=== PATIENT | female | born 1930 | race Caucasian/White ===

== ENCOUNTER 2016-09-04 10:05 | Inpatient (IN) | payer OTHER ==
[~2016-09-04] VITALS: Ht 167.6 cm; Wt 79.5 kg
[2016-09-04] VITALS (25 sets, daily range): BP systolic 81–175; BP diastolic 41–88; PULSE 62–84; TEMP 36.3–37.6; O2SAT 95–100; Ht 167.6 cm; Wt 79.5 kg
[~2016-09-04 10:05] MED LIST: ALBU1AER9 INH; ALLO100T PO; AMIO200T4 PO; ASPI81TA28 PO; BUME1TAB PO; CLOP1TAB15 PO; CRS/10 PO; GLUC10007 PO; HYCUDL5 PO; INSHNI SQ; IPRASOL4 INH; ISOS60TA25 PO; LACT1CAP6 PO; LPR25 PO; PHS667 PO; RBTUDL5 PO
[2016-09-04] MEDS ORDERED: SODIUM CHLORIDE 0.9% 500ML 500 ML IV STA (10:21)
[2016-09-04 10:46] LABS: BASO % 0.4 %; BASO ABS # 0.04 K/uL (0-0.2); COMPLETE YES; EOS % 1.9 %; HEMATOCRIT 30.2 % (37-47); IG% 0.3 %; LYMPH % 15.4 %; LYMPH ABS # 1.66 K/uL (1.2-3.4); MEAN CELL VOLUME 96.8 fL (80-100); MEAN CORPUSCULAR HEMOGLOBIN 31.1 pg (25-34); MEAN CORPUSCULAR HGB CONC 32.1 g/dl (32-36); MEAN PLATELET VOLUME 9.7 fL (7.4-10.4); MONO % 10.9 %; NEUT % 71.1 %; PLATELET COUNT 212 K/uL (130-400); RED BLOOD COUNT 3.12 M/uL (4.2-5.4); WHITE BLOOD COUNT 10.79 K/uL (4.8-10.8)
[2016-09-04 10:54] LABS: ISTAT CREATININE 4.6 mg/dl (0.6-1.3); ISTAT HEMOGLOBIN 10.2 g/dl (12.0-16.0); ISTAT IONIZED CALCIUM 1.12 mmol/l (1.12-1.32)
[2016-09-04 10:55] LABS: INR 1.1 (0.9-1.1); PROTHROMBIN TIME (PATIENT) 11.4 SECONDS (9.0-12.0)
[2016-09-04 11:25] LABS: BUN/CREATININE RATIO 10.2 (10-20); CALCIUM 8.8 mg/dl (8.5-10.1)
[2016-09-04 11:31] LABS: CREATININE 4.8 mg/dl (0.60-1.20)
--- NOTE | 2016-09-04 11:40 | DIAGNOSTIC IMAGING REPORT ---
CHEST ONE VIEW PORTABLE CLINICAL HISTORY: Hypoxia. COMPARISON STUDY: Chest radiograph July 11, 2016 FINDINGS: A dual lumen right internal jugular central venous catheter, median sternotomy wires and mediastinal surgical clips are noted. Mild cardiomegaly is unchanged. There is no pneumothorax. A small left pleural effusion is decreased in size since prior exam. There may be a trace right pleural effusion. Mild lower lung interstitial thickening is noted. There is no evidence for overt pulmonary edema. IMPRESSION: 1. Small left pleural effusion, decreased in size since exam of July 11, 2016. 2. Mild lower lung interstitial thickening. No evidence for overt pulmonary edema. Electronically signed by: Timmy Candelaria M.D. 09/04/2016 11:38 AM
[2016-09-04] MEDS ORDERED: PROB1TAB16 PO (12:18)
[2016-09-04] MEDS ORDERED: POTA20TA13 PO (12:23)
[2016-09-04] MEDS ORDERED: SENNTAB23 PO (12:24)
[2016-09-04] MEDS ORDERED: NTRGSL/4 UT (12:26)
--- NOTE | 2016-09-04 12:50 | Gastrointestinal Consultation ---
Gastrointestinal Consultation Date of Consultation: Sep 04, 2016 Attending Physician: Dr. Krishnamurthy Consulting Physician: Leigh Ann Nunez PA-C Reason for Consultation: GI bleeding History of Present Illness Patient is a 86 year old female with a past medical history of anemia, aortic stenosis, esophageal stricture, CAD, asthma, chronic respiratory failure, diastolic congestive heart failure, DJD, DM2, ESRD on HD, GERD, HLD, hyperparathyroidism, HTN, mitral regurgitation, nephrolithiasis, & Paroxysmal Atrial Fibrillation who presents to the ED with multiple episodes of rectal bleeding. She reports that her symptoms began last night around midnight. She denies associated abdominal pain or cramping. She reports some "twinges" of discomfort generalized throughout the abdomen. She reports she had a black tarry bowel movement prior to the onset of the bleeding. Daughter reports that she then found bright red blood throughout the bathroom. Bleeding is only associated with bowel movements per reports. She has continued to have bleeding since being brought to the ER. She denies a family history of GI malignancy or IBD. She reports that she takes Aspirin & Plavix at home. Her H/H is 9.7/30.2. Her BUN/Cr is 49/4.8. She is currently being prepped for a blood transfusion. She offers no further complaints at present. Patient denies ever having a colonoscopy, however daughter reports that her mother has had a colonoscopy in the past 2 years, however I cannot find any inpatient or outpatient records to support this. She reports she recalls bringing her mom, so I do question if she is referring to the EGD she had in October 2015. Past Medical/Surgical History Medical Problems: (1) CHF (congestive heart failure) Status: Acute (2) Chronic kidney insufficiency Status: Acute (3) Chronic renal failure Status: Acute (4) Congestive heart failure Status: Acute (5) E16.2 Status: Acute (6) Elevated troponin Status: Acute (7) Pancytopenia Status: Acute (8) Pneumonia Status: Acute (9) Pulmonary edema Status: Acute (10) Respiratory distress Status: Acute (11) ST segment changes on electrocardiogram Status: Acute Past Medical History: anemia, aortic stenosis, esophageal stricture, CAD, asthma, chronic respiratory failure, diastolic congestive heart failure, DJD, DM2, ESRD on HD, GERD, HLD, hyperparathyroidism, HTN, mitral regurgitation, nephrolithiasis, & Paroxysmal Atrial Fibrillation, choledocholithiasis Past Surgical History: ERCP, cholecystectomy, EGD, cholecystectomy, CABG, cardiac cath/stent, back surgery, knee replacement, hip replacement Family History Cancer SISTER (Breast cancer) Chronic kidney disease MOTHER Diabetes mellitus FATHER Heart disease FATHER Hypertension FATHER MOTHER Kidney disease Kidney stones Social History Smoking Status: Never Smoker Alcohol Use: none Drug Use: none Marital Status: Housing Status: lives alone Occupation Status: retired Allergies Coded Allergies: No Known Allergies (Unverified , 09/04/16) Current Medications Home Meds and Scripts Medications Dose Route/Sig Max Daily Dose Days Date Category Nitrostat (Nitroglycerin) 0.4 Mg Tab 0.4 Mg UT PRN 09/04/16 Reported Stool Softener (Sennosides-Docusate Sodium) 1 Tab Tab 1 Tab PO BID 09/04/16 Reported Potassium Chloride Er (Potassium Chloride Microencaps) 20 Meq Tab 20 Meq PO DAILY 09/04/16 Reported Probiotic (Probiotic Product) 1 Tab Tab 1 Tab PO DAILY 09/04/16 Reported Hydromet 5-1.5 mg/5Ml (Hydrocodone Bit/Homatropine Methylb) 5 Ml/Cup Syrp 5 Ml PO Q6H PRN 07/16/16 Rx Robitussin (Guaifenesin) 100 Mg/5 Ml Karo 100 Mg PO Q6H PRN 30 07/12/16 Rx Phoslo 667 Mg (Calcium Acetate) 667 Mg Cap 667 Mg PO TIDM 30 07/12/16 Rx Humulin N (Insulin Human NPH) 100 Units/Ml Susp 15 Units SQ QAM 07/06/16 Reported Lopressor (Metoprolol Tartrate) 25 Mg Tab 12.5 Mg PO BID 30 06/21/16 Rx Glucosamine (Glucosamine Sulfate) 1,000 Mg Tab 1,000 Mg PO DAILY 06/15/16 Reported Bumex (Bumetanide) 1 Mg Tab 1 Mg PO BID 05/16/16 Reported Cordarone (Amiodarone Hcl) 200 Mg Tab 200 Mg PO DAILY 04/03/16 Reported Proair Hfa (Albuterol Sulfate) 108 Mcg/ Aer 2 Puffs INH QID PRN 02/08/16 Reported Aspirin Ec (Aspirin) 81 Mg Tab 81 Mg PO HS 02/08/16 Reported Imdur Ext Rel (Isosorbide Mononitrate) 60 Mg Ertab 60 Mg PO QAM 10/11/15 Reported Crestor (Rosuvastatin Calcium) 10 Mg Tab 10 Mg PO HS 10/11/15 Reported Duoneb (Ipratropium-Albuterol) 3 Ml Nebu 1 Treatment INH AMHS 05/19/15 Reported Zyloprim (Allopurinol) 100 Mg Tab 50 Mg PO QAM 02/03/15 Reported Plavix (Clopidogrel Bisulfate) 75 Mg Tab 75 Mg PO HS 01/08/10 Reported Review of Systems Constitutional: + fatigue, + weakness Respiratory: + dyspnea on exertion, No cough Cardiac: No chest pain Abdomen: + GI bleeding, No constipation, No diarrhea, No nausea, No pain, No vomiting Musculoskeletal: No joint pain Psych: No problem reported Skin: No problem reported Physical Exam Date Time Temp Pulse Resp B/P Pulse Ox O2 Delivery O2 Flow Rate FiO2 09/04/16 12:09 36.5 67 18 103/41 100 3.0 09/04/16 11:33 68 132/54 100 Nasal Cannula 2.0 09/04/16 11:10 100 Nasal Cannula 2.0 09/04/16 10:55 66 18 114/51 100 Nasal Cannula 2.0 09/04/16 10:29 66 09/04/16 10:23 95 Nasal Cannula 2.0 09/04/16 10:23 95 Nasal Cannula 2.0 09/04/16 10:18 36.6 66 22 125/69 86 Room Air General Appearance: WD/WN Eyes: normal inspection, PERRL ENT: hearing grossly normal Respiratory/Chest: lungs clear, + decreased breath sounds Cardiovascular: regular rate, rhythm Abdomen: normal bowel sounds, non tender, soft Extremities: non-tender Neurologic/Psych: alert, oriented x 3 Skin: normal color Laboratory Results Last 24 Hours Test 09/04/16 10:35 09/04/16 10:37 White Blood Count 10.79 K/uL Red Blood Count 3.12 M/uL Hemoglobin 9.7 g/dL Hematocrit 30.2 % Mean Corpuscular Volume 96.8 fL Mean Corpuscular Hemoglobin 31.1 pg Mean Corpuscular Hemoglobin Concent 32.1 g/dl Platelet Count 212 K/uL Mean Platelet Volume 9.7 fL Neutrophils (%) (Auto) 71.1 % Lymphocytes (%) (Auto) 15.4 % Monocytes (%) (Auto) 10.9 % Eosinophils (%) (Auto) 1.9 % Basophils (%) (Auto) 0.4 % Neutrophils # (Auto) 7.67 K/uL Lymphocytes # (Auto) 1.66 K/uL Monocytes # (Auto) 1.18 K/uL Eosinophils # (Auto) 0.21 K/uL Basophils # (Auto) 0.04 K/uL RDW Standard Deviation 53.9 fL RDW Coefficient of Variation 15.6 % Immature Granulocyte % (Auto) 0.3 % Immature Granulocyte # (Auto) 0.03 K/uL Prothrombin Time 11.4 SECONDS Prothromb Time International Ratio 1.1 Activated Partial Thromboplast Time 26.8 SECONDS Partial Thromboplastin Ratio 1.0 Sodium Level 140 mmol/L Potassium Level 5.0 mmol/L Chloride Level 102 mmol/L Carbon Dioxide Level 28 mmol/L Anion Gap 10.0 mmol/L 19.0 mmol/L Blood Urea Nitrogen 49 mg/dl Creatinine 4.80 mg/dl Est Creatinine Clear Calc Drug Dose 9.1 ml/min Estimated GFR () 8.9 Estimated GFR (Non- 7.7 BUN/Creatinine Ratio 10.2 Random Glucose 181 mg/dl Calcium Level 8.8 mg/dl Total Bilirubin 0.4 mg/dl Direct Bilirubin 0.1 mg/dl Aspartate Amino Transf (AST/SGOT) 16 U/L Alanine Aminotransferase (ALT/SGPT) 9 U/L Alkaline Phosphatase 62 U/L Total Protein 5.4 gm/dl Albumin 2.1 gm/dl Lipase 134 U/L Bedside Hemoglobin 10.2 g/dl Bedside Hematocrit 30 % Bedside Sodium 137 mEq/L Bedside Potassium 5.0 mEq/L Bedside Chloride 99 mEq/L Bedside Total CO2 26 mEq/l Bedside Blood Urea Nitrogen 43 mg/dl Bedside Creatinine 4.6 mg/dl Bedside Glucose (other) 181 mg/dl Bedside Ionized Calcium (Angelito) 1.12 mmol/l Impression Patient is a 86 year old female who presents to the ER with an abrupt onset of rectal bleeding that has continued from midnight 1/2 until the present time. She is noted to be anemic with an H/H of 9.7/30.2. Plan 1) Agree with transfusion of PRBCs. Would monitor closely due to history of CHF & other cardiac issues. 2) CT abdomen/pelvis with contrast now. 3) Continue to monitor H/H. Suspect next draw will be lower due to continued blood loss. 4) Prep for colonoscopy in AM, however recommend monitoring throughout the day and if bleeding worsens or patient is decompensating, would recommend sooner intervention though this would be less ideal as she would be unprepped for evaluation. 5) Supportive care per primary team. Thank you for allowing us to participate in the care of this patient. If you should have any further questions or concerns, do not hesitate to contact us. Agree with Leigh Ann Soni, PAC as above Abd: Soft, NT, ND, +BS CT Abd/pelvis now Plan for Colonoscopy 09/05/2016 following bowel prep Transfuse PRN
[2016-09-04] MEDS ORDERED: SODIUM CHLORIDE 0.9% 1000ML 1,000 ML IV SCH (13:14)
[2016-09-04] MEDS ORDERED: DEXTROSE 50% 50 ML SYR IV PRN (13:15)
[2016-09-04] MEDS ORDERED: GLUCAGON FOR INJ 1 MG VIAL SQ PRN (13:15)
[2016-09-04] MEDS ORDERED: ALBUTEROL HFA 8 GM INHALER INH PRN (13:15)
[2016-09-04] MEDS ORDERED: GLUCOSE 10 TABS/TUBE PO PRN (13:15)
[2016-09-04] MEDS ORDERED: POLYETHYLENE (MIRALAX) 17 GM PACK PO PRN (13:15)
[2016-09-04] MEDS ORDERED: NITROGLYCERIN 0.4 MG SL PER TAB CHARGE UT PRN (13:15)
[2016-09-04] MEDS ORDERED: ALUMINUM/MAGNESIUM/SIMETH (MAALOX MAX) 30 ML UDC PO PRN (13:15)
[2016-09-04] MEDS ORDERED: ONDANSETRON INJ 2 MG/ML 2 ML VIAL IV PRN (13:15)
[2016-09-04] MEDS ORDERED: ACETAMINOPHEN 325 MG TAB PO PRN (13:15)
[2016-09-04] MEDS ORDERED: MAGNESIUM HYDROXIDE SUSP 30 ML UDC PO PRN (13:15)
[2016-09-04] MEDS ORDERED: GLUCOSE 40% GEL 15 GM TUBE PO PRN (13:15)
--- NOTE | 2016-09-04 14:27 | History and Physical ---
History & Physical Date & Time of Service: Sep 04, 2016 at 13:43 Chief Complaint: Leg Weakness/Dizziness Primary Care Physician: Vipul Hernandez M.D. History of Present Illness This is an 86 y/o female with a history of ESRD with HD, anemia of chronic disease, CHF, CAD, ID, DM II, HTN, atrial fibrillation, HLD and gout who presented to the ED on 09/04 with diarrhea and bright red blood per rectum. The patient states that she woke up shortly after midnight this morning with diarrhea and alexys bright red blood. She had been in her usual state of health one day prior without any diarrhea. The patient had about 4-5 episodes of bloody diarrhea prior to arrival. The patient has continued to have more episodes of diarrhea, but she states that it is mostly just blood that is coming out now. The patient does have external hemorrhoids. The patient complains of feeling weak and fatigued as well as lightheaded upon sitting up or standing. She has not eaten since yesterday evening for dinner. The patient denies any recent acute illnesses. The patient states she had a colonoscopy 6-[address] Bowers that was normal. The patient denies fevers, chills, sweats, syncope, chest pain, palpitations, claudication, cough, wheezing, shortness of breath, nausea, vomiting, abdominal pain, dysuria, hematuria, urinary retention, paralysis, vertigo, numbness and tingling. Past Medical/Surgical History Medical Problems: (1) Ac Myocrd Infrct,Oth Inferior Wall,Subseq Epis Car Status: Resolved (2) Aortocoronary Bypass Status: Resolved (3) Chronic Kidney Disease, Stage Iii (Moderate) Status: Chronic (4) Coronary Atherosclerosis Of [place] Coronary Vessel Status: Chronic (5) Diab Qiana Wo Compl, Type Ii Or Unspec Type, Not Uncntrld Status: Chronic (6) Hypertension Nos Status: Chronic (7) Knee Joint Replacement Status Status: Chronic (8) Old Myocardial Infarct Status: Chronic (9) Percutaneous Translum Coron Angioplasty Status Status: Resolved (10) Pneumonia, Organism Nos Status: Resolved (11) Pure Hypercholesterolem Status: Chronic (12) Urin Tract Infection Nos Status: Resolved Family History Asthma Cancer SISTER (Breast cancer) Chronic kidney disease MOTHER Diabetes mellitus FATHER Heart disease FATHER Hypertension FATHER MOTHER Kidney disease Kidney stones Stroke Social History Smoking Status: Never Smoker Smokeless Tobacco Use: No Alcohol Use: none Drug Use: none Marital Status: Housing status: lives with family (with granddaughter) Occupational Status: retired Immunizations History of Influenza Vaccine: Yes Influenza Vaccine Date: Apr 17, 2012 History of Tetanus Vaccine?: Yes Tetanus Immunization Date: Dec 16, 2006 History of Pneumococcal: Yes Pneumococcal Date: Dec 17, 2007 History of Hepatitis B Vaccine: No Multi-Drug Resistant Organisms History of MDRO: No Allergies Coded Allergies: No Known Allergies (Unverified , 09/04/16) Home Medications Scheduled Allopurinol (Zyloprim), 50 MG PO QAM Amiodarone Hcl (Cordarone), 200 MG PO DAILY Aspirin (Aspirin Ec), 81 MG PO HS Bumetanide (Bumex), 1 MG PO DAILY Calcium Acetate (Phoslo 667 Mg), 667 MG PO TIDM Clopidogrel (Plavix), 75 MG PO HS Insulin Human NPH (Humulin N), 12 UNITS SQ QAM Ipratropium-Albuterol (Duoneb), 1 TREATMENT INH AMHS Isosorbide Mononitrate Ext Rel (Imdur Ext Rel), 60 MG PO QAM Metoprolol Tartrate (Lopressor), 12.5 MG PO BID Nitroglycerin (Nitrostat), 0.4 MG UT PRN Potassium Chloride Microencaps (Potassium Chloride Er), 20 MEQ PO DAILY Probiotic Product (Probiotic), 1 TAB PO DAILY Rosuvastatin Calcium (Crestor), 10 MG PO HS Sennosides-Docusate Sodium (Stool Softener), 1 TAB PO BID Scheduled PRN Albuterol Sulfate (Proair Hfa), 2 PUFFS INH QID PRN for SOB/Wheezing Review of Systems Constitutional: + fatigue, + weakness, No chills, No fever, No sweats Eyes: No diplopia, No eye pain, No worsening of vision ENT: No hearing loss, No sore throat, No tinnitus Respiratory: No cough, No shortness of breath, No wheezing Cardiovascular: No chest pain, No claudication, No palpitations Abdomen: + GI bleeding, + diarrhea, No nausea, No pain, No vomiting Musculoskeletal: No calf pain, No joint pain, No muscle pain Genitourinary - Female: No dysuria, No hematuria, No urinary retention Integumentary: No color change, No itch, No rash Physical Exam Vital Signs Date Time Temp Pulse Resp B/P Pulse Ox O2 Delivery O2 Flow Rate FiO2 09/04/16 13:35 36.6 66 18 104/44 100 2.0 09/04/16 13:29 36.7 62 21 83/42 100 2.0 09/04/16 13:29 36.6 62 21 83/42 100 2.0 09/04/16 13:15 36.6 68 22 81/46 100 2.0 09/04/16 13:02 36.5 67 25 105/44 100 2.0 09/04/16 12:31 68 18 92/46 100 3.0 09/04/16 12:30 67 31 100 09/04/16 12:28 92/46 09/04/16 12:25 66 24 100 09/04/16 12:20 66 26 100 09/04/16 12:15 68 30 100 09/04/16 12:10 70 25 100 09/04/16 12:09 36.5 67 18 103/41 100 3.0 09/04/16 12:08 103/41 09/04/16 12:05 68 27 100 09/04/16 12:00 70 26 100 09/04/16 11:59 108/48 09/04/16 11:55 68 30 100 09/04/16 11:50 67 30 100 09/04/16 11:45 70 32 100 09/04/16 11:40 68 30 100 09/04/16 11:35 67 23 100 09/04/16 11:33 68 132/54 100 Nasal Cannula 2.0 09/04/16 11:30 68 32 100 09/04/16 11:28 132/54 09/04/16 11:25 68 24 100 09/04/16 11:20 65 29 100 09/04/16 11:15 66 31 99 09/04/16 11:10 67 27 100 09/04/16 11:10 100 Nasal Cannula 2.0 09/04/16 11:05 64 29 100 09/04/16 11:00 65 35 100 09/04/16 10:59 110/70 09/04/16 10:55 63 25 100 09/04/16 10:55 66 18 114/51 100 Nasal Cannula 2.0 09/04/16 10:50 67 30 100 09/04/16 10:47 114/51 09/04/16 10:45 65 25 100 09/04/16 10:40 72 18 71 09/04/16 10:35 68 27 09/04/16 10:30 77 24 67 09/04/16 10:29 66 09/04/16 10:23 95 Nasal Cannula 2.0 09/04/16 10:23 95 Nasal Cannula 2.0 09/04/16 10:18 36.6 66 22 125/69 86 Room Air 09/04/16 10:12 125/69 General Appearance: WD/WN, no apparent distress Head: normocephalic, atraumatic Eyes: normal inspection, PERRL, EOMI ENT: normal ENT inspection, hearing grossly normal, pharynx normal, + pertinent finding (dry oral mucosa) Neck: supple, no JVD, trachea midline Respiratory/Chest: lungs clear, normal breath sounds, no respiratory distress Cardiovascular: regular rate, rhythm, no gallop, no murmur Abdomen/GI: normal bowel sounds, soft, + tenderness (LLQ mildly TTP without guarding), + pertinent finding (copious amounts of blood coming from rectum limited rectal exam) Extremities/Musculoskelatal: normal inspection, no calf tenderness, no pedal edema, + swelling (1+ pitting edema in lower extremities bilaterally) Neurologic/Psych: alert, normal mood/affect, oriented x 3 Skin: warm/dry, no rash, + pallor Diagnostics Laboratory Results Results Past 24 Hours Test 09/04/16 10:35 09/04/16 10:37 09/04/16 13:14 Range/Units White Blood Count 10.79 4.8-10.8 K/uL Red Blood Count 3.12 4.2-5.4 M/uL Hemoglobin 9.7 12.0-16.0 g/dL Hematocrit 30.2 37-47 % Mean Corpuscular Volume 96.8 80-100 fL Mean Corpuscular Hemoglobin 31.1 25-34 pg Mean Corpuscular Hemoglobin Concent 32.1 32-36 g/dl Platelet Count 212 130-400 K/uL Mean Platelet Volume 9.7 7.4-10.4 fL Neutrophils (%) (Auto) 71.1 % Lymphocytes (%) (Auto) 15.4 % Monocytes (%) (Auto) 10.9 % Eosinophils (%) (Auto) 1.9 % Basophils (%) (Auto) 0.4 % Neutrophils # (Auto) 7.67 1.4-6.5 K/uL Lymphocytes # (Auto) 1.66 1.2-3.4 K/uL Monocytes # (Auto) 1.18 0.11-0.59 K/uL Eosinophils # (Auto) 0.21 0-0.5 K/uL Basophils # (Auto) 0.04 0-0.2 K/uL RDW Standard Deviation 53.9 36.4-46.3 fL RDW Coefficient of Variation 15.6 11.5-14.5 % Immature Granulocyte % (Auto) 0.3 % Immature Granulocyte # (Auto) 0.03 0.00-0.02 K/uL Prothrombin Time 11.4 9.0-12.0 SECONDS Prothromb Time International Ratio 1.1 0.9-1.1 Activated Partial Thromboplast Time 26.8 21.0-31.0 SECONDS Partial Thromboplastin Ratio 1.0 Sodium Level 140 136-145 mmol/L Potassium Level 5.0 3.5-5.1 mmol/L Chloride Level 102 98-107 mmol/L Carbon Dioxide Level 28 21-32 mmol/L Anion Gap 10.0 19.0 16-25 mmol/L Blood Urea Nitrogen 49 7-18 mg/dl Creatinine 4.80 0.60-1.20 mg/dl Est Creatinine Clear Calc Drug Dose 9.1 ml/min Estimated GFR () 8.9 Estimated GFR (Non- 7.7 BUN/Creatinine Ratio 10.2 10-20 Random Glucose 181 70-99 mg/dl Calcium Level 8.8 8.5-10.1 mg/dl Total Bilirubin 0.4 0.2-1 mg/dl Direct Bilirubin 0.1 0-0.2 mg/dl Aspartate Amino Transf (AST/SGOT) 16 15-37 U/L Alanine Aminotransferase (ALT/SGPT) 9 12-78 U/L Alkaline Phosphatase 62 45-117 U/L Total Protein 5.4 6.4-8.2 gm/dl Albumin 2.1 3.4-5.0 gm/dl Lipase 134 73-393 U/L Bedside Hemoglobin 10.2 12.0-16.0 g/dl Bedside Hematocrit 30 37-47 % Bedside Sodium 137 135-144 mEq/L Bedside Potassium 5.0 3.3-5.0 mEq/L Bedside Chloride 99 101-112 mEq/L Bedside Total CO2 26 24-31 mEq/l Bedside Blood Urea Nitrogen 43 7-18 mg/dl Bedside Creatinine 4.6 0.6-1.3 mg/dl Bedside Glucose (other) 181 70-99 mg/dl Bedside Ionized Calcium (Angelito) 1.12 1.12-1.32 mmol/l Creatine Kinase MB Ratio 0-3.0 Diagnostic Radiology Reviewed the following studies and agree with interpretation as follows: Patient Name: ANANTH SIMPSON Unit Number: [id number] Dictated: 09/04/161135 Transcribed: 09/04/161135 Printed Date/Time: [~ rep prt dt]/[~ rep prt tm] [~ rep ct labl] - [~ rep ct ivnm] [facility] [place] [place] [address] Dictated: 09/04/161135 Transcribed: 09/04/161135 Printed Date/Time: [~ rep prt dt]/[~ rep prt tm] [~ rep ct labl] - [~ rep ct ivnm] Patient: ANANTH SIMPSON Address1: [address] [place] [address] Rec: [id number] Address2: Acct ID: [id number] [facility] Zip: [place] [address] Date: 1930 Sex: F Room/Bed: Ref Phy: Cooper Hart M.D. SC: SIA Att Phy: Report #: [id number] Christiana Phy: Vipul Hernandez M.D. Test: [id number] Admit Phy: Head Kiln Operator: NINA Interpreting Phy: Timmy Candelaria MD Diagnosis: LEG WEAKNESS/DIZZINESS Ordering Phy: Markos Krishnamurthy DO Service Date: 09/04/16 Admit Date: 09/04/16 MNE: [id number] CONF: DICTATED BY: Timmy Candelaria MD]] CC: Markos Krishnamurthy, Vipul Teague M.D. Hester, Christopher E., M.D. Endcc: [~ rep ct add3]] CHEST ONE VIEW PORTABLE CLINICAL HISTORY: Hypoxia. COMPARISON STUDY: Chest radiograph July 11, 2016 FINDINGS: A dual lumen right internal jugular central venous catheter, median sternotomy wires and mediastinal surgical clips are noted. Mild cardiomegaly is unchanged. There is no pneumothorax. A small left pleural effusion is decreased in size since prior exam. There may be a trace right pleural effusion. Mild lower lung interstitial thickening is noted. There is no evidence for overt pulmonary edema. IMPRESSION: 1. Small left pleural effusion, decreased in size since exam of July 11, 2016. 2. Mild lower lung interstitial thickening. No evidence for overt pulmonary edema. Electronically signed by: Timmy Candelaria M.D. 09/04/2016 11:38 AM The status of this report is Signed. Draft = Not yet reviewed or approved by Radiologist. Signed = Reviewed and approved by Radiologist. <AttendingPhy></AttendingPhy> <FamilyPhy>Cooper Hart M.D.</FamilyPhy > <PrimaryPhy>Vipul Hernandez M.D.</PrimaryPhy> <UnitNumber>[id number]</ UnitNumber> <VisitNumber>[id number]</VisitNumber> <PatientName>ANANTH SIMPSON< /PatientName> <DateOfBirth>1930</DateOfBirth> <Location>C.EDB</Location> < ServiceDate>09/04/16</ServiceDate> <MNE>ESINDI</MNE> <OrderingPhy>Markos Krishnamurthy DO</OrderingPhy> <OrderingPhyMNE>f rep ord dr bae</OrderingPhyMNE> < DictatingPhyMNE>f rep dict dr bae</DictatingPhyMNE> <CCListMNE>f rep ct emekae</ CCListMNE> <AdmittingPhyMNE>f pt admit dr bae</AdmittingPhyMNE> <AttendingPhyMNE >f pt attend dr bae</AttendingPhyMNE> <ConsultingPhyMNE>f pt consult dr bae</ConsultingPhyMNE> <FamilyPhyMNE>f pt fam dr bae</FamilyPhyMNE> <OtherPhyMNE>f pt other dr bae</OtherPhyMNE> < PrimaryPhyMNE>f pt prim care dr bae</PrimaryPhyMNE> <ReferringPhyMNE>f pt referring dr bae</ReferringPhyMNE> EKG Reviewed EKG and agree with interpretation as follows: 66 bpm, NSR, inverted T waves in inferior and lateral leads, ST depressions in inferior and lateral leads Impression Assessment and Plan 86 y/o female with a history of ESRD with HD, anemia of chronic disease, CHF, CAD, ID, DM II, HTN, paroxysmal atrial fibrillation, HLD and gout who presented to the ED on 09/04 with diarrhea and bright red blood per rectum. Pt. is on ASA and Plavix. CXR shows small left pleural effusion improved from prior study in 07/2016, mild lower lung interstitial thickening. EKG shows new inverted T waves and ST depressions in inferior and lateral leads. Hgb 9.7 upon arrival, PLT stable at 212. -Admit to PCU for rectal bleeding, h/o cardiac disease and a-fib -GI consulted, appreciate recs. Plan to do colonoscopy tomorrow with Dr. Bowers who did pt.'s prior colonoscopy -Nephro consulted for dialysis, pt on // schedule -NPO except meds -Pt. receiving 2 units PRBC in ED -ED ordered cryoprecipitate and platelets for pt., however PLT count stable at [address] Desir, not indicated for pt at this time. Orders were already in process at the time of examination and could not be canceled. -Check serial H&H q6h x4 -IVF NSS at 100 cc/hr -Trend serial cardiac enzymes q8h x 3 due to ischemic changes in EKG -Repeat EKG q am and with chest pain -Hold ASA and Plavix ESRD on HD--due for dialysis today -Nephro on board -Continue PhosLo 667 mg PO TID with meals Anemia of chronic disease--baseline Hgb around 11 -Hgb 9.7 upon arrival -2 units PRBC transfused as above -Continue to monitor with serial H&H H/o CHF -Hold Bumex for now Diabetes mellitus type 2--Last HgbA1c checked on 07/06/16 was 5.5 -Insulin sliding scale -Check BSGs q ac and qhs, check q6h while NPO HTN--hypotensive while in ED, improving with fluids and blood -Hold Imdur and metoprolol for now HLD -Continue Crestor 10 mg PO qd Gout -Hold allopurinol for now DVT prophylaxis -Hold chemical prophylaxis for now due to bleeding -JASPAL lund and SCDs Code Status -Level I, FULL RESUSCITATION STATUS Level of Care Telemetry Advanced Directives Existing Advance Directive: Yes Existing Living Will: Yes Existing Power of Internal Affairs Investigator: Yes Resuscitation Status FULL RESUSCITATION VTE Prophylaxis VTE Risk Assessment Done? Y/N: Yes Risk Level: Moderate Given or contraindicated: T.E.D. Stockings, SCD's
[2016-09-04] MEDS ORDERED: SODIUM CHLORIDE 0.9% IV STA (15:38)
[2016-09-04] MEDS ORDERED: DESMOPRESSIN ACETATE IV STA (15:38)
--- NOTE | 2016-09-04 15:53 | DIAGNOSTIC IMAGING REPORT ---
CHEST ONE VIEW PORTABLE CLINICAL HISTORY: Central venous catheter. COMPARISON STUDY: Chest radiograph September 04, 2016 at 11:09 AM. FINDINGS: Note is made of interval placement of a right internal jugular catheter. There is no pneumothorax. The tip of the catheter is somewhat obscured by the indwelling right internal jugular dual lumen catheter but is likely within the SVC. There are median sternotomy wires. Cardiomegaly is unchanged. Small left and trace right pleural effusions are present. Interstitial thickening suggests mild pulmonary edema. IMPRESSION: 1. No pneumothorax following placement of a right internal jugular catheter. Catheter tip is likely within the proximal SVC. 2. Suspected mild pulmonary edema and small bilateral pleural effusions. Electronically signed by: Timmy Candelaria M.D. 09/04/2016 3:51 PM
[2016-09-04] MEDS ORDERED: SODIUM CHLORIDE 0.9% IV ONE (16:00)
[2016-09-04] MEDS ORDERED: DESMOPRESSIN ACETATE IV ONE (16:00)
--- NOTE | 2016-09-04 17:29 | EMERGENCY ROOM VISIT NOTE ---
History Report prepared by Marquiseibemmie: Keyana Grimes Under the Supervision of: Dr. Markos Krishnamurthy D.O. First contact with patient: 10:14 Stated Complaint: LEG WEAKNESS/DIZZINESS History of Present Illness The patient is an 86 year old female who presents to the Emergency Room with complaints of persistent diarrhea and rectal bleeding that started earlier this morning. She was brought to the ED via EMS. She reports very early this morning she started experiencing diarrhea and "bright red" rectal bleeding. She thinks she has had around 4 to 5 episodes of diarrhea and rectal bleeding. She does take daily Plavix and Aspirin. She denies any chest pain, shortness of breath, nausea or vomiting. She does get regular dialysis, on Mondays, Wednesdays and Fridays and reports she has been getting dialysis for the past 3 months. She has never undergone a colonoscopy or seen a meeting manager. She denies any headache, change in vision, fevers, abdominal pain or pain with urination. She has not taken any of her daily medications yet this morning and reports she last took her blood thinners last night. Source of History: patient Onset: early this morning Position: other (rectum) Timing: other (persistent) Associated Symptoms: No SOB, No abdominal pain, No chest pain, No fevers, No headache, No nausea, No urinary symptoms, No vomiting Review of Systems See HPI for pertinent positives & negatives. A total of 10 systems reviewed and were otherwise negative. 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 (16) ESRD (end stage renal disease) on dialysis (17) Hypertension (18) Hypertension Nos (19) Knee Joint Replacement Status (20) New onset atrial fibrillation (21) NSTEMI (non-ST elevated myocardial infarction) (22) NSTEMI (non-ST elevated myocardial infarction) (23) 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 (25) Peripheral vascular disease (26) Pneumonia, Organism Nos (27) Pure Hypercholesterolem (28) Rectal bleeding (29) Shortness of breath (30) Urin Tract Infection Nos Family History Cancer SISTER (Breast cancer) Chronic kidney disease MOTHER Diabetes mellitus FATHER Heart disease FATHER Hypertension FATHER MOTHER Kidney disease Kidney stones Social History Smoking Status: Never Smoker Alcohol Use: none Drug Use: none Marital Status: Housing Status: lives alone Occupation Status: retired Current/Historical Medications Scheduled Allopurinol (Zyloprim), 50 MG PO QAM Amiodarone Hcl (Cordarone), 200 MG PO DAILY Aspirin (Aspirin Ec), 81 MG PO HS Bumetanide (Bumex), 1 MG PO DAILY Calcium Acetate (Phoslo 667 Mg), 667 MG PO TIDM Clopidogrel (Plavix), 75 MG PO HS Insulin Human NPH (Humulin N), 12 UNITS SQ QAM Ipratropium-Albuterol (Duoneb), 1 TREATMENT INH AMHS Isosorbide Mononitrate Ext Rel (Imdur Ext Rel), 60 MG PO QAM Metoprolol Tartrate (Lopressor), 12.5 MG PO BID Nitroglycerin (Nitrostat), 0.4 MG UT PRN Potassium Chloride Microencaps (Potassium Chloride Er), 20 MEQ PO DAILY Probiotic Product (Probiotic), 1 TAB PO DAILY Rosuvastatin Calcium (Crestor), 10 MG PO HS Sennosides-Docusate Sodium (Stool Softener), 1 TAB PO BID Scheduled PRN Albuterol Sulfate (Proair Hfa), 2 PUFFS INH QID PRN for SOB/Wheezing Allergies Coded Allergies: No Known Allergies (Unverified , 09/04/16) Physical Exam Vital Signs Date Time Temp Pulse Resp B/P Pulse Ox O2 Delivery O2 Flow Rate FiO2 09/04/16 17:09 65 18 117/44 99 2.0 09/04/16 16:47 71 21 118/45 99 2.0 09/04/16 16:04 36.8 72 23 120/49 99 2.0 09/04/16 15:35 36.5 73 25 132/58 95 2.0 09/04/16 15:24 77 16 138/76 98 2.0 09/04/16 15:19 36.8 76 20 144/88 98 09/04/16 15:16 84 20 164/69 98 09/04/16 15:08 36.9 09/04/16 15:05 76 28 164/69 97 2.0 09/04/16 14:50 82 30 175/63 100 10.0 09/04/16 14:31 36.7 70 21 140/61 100 2.0 09/04/16 14:03 36.3 65 22 114/44 100 2.0 09/04/16 13:49 64 22 121/52 100 2.0 09/04/16 13:49 36.4 64 22 121/52 100 2.0 09/04/16 13:46 62 09/04/16 13:35 36.6 66 18 104/44 100 2.0 09/04/16 13:29 36.7 62 21 83/42 100 2.0 09/04/16 13:29 36.6 62 21 83/42 100 2.0 09/04/16 13:15 36.6 68 22 81/46 100 2.0 09/04/16 13:02 36.5 67 25 105/44 100 2.0 09/04/16 12:31 68 18 92/46 100 3.0 09/04/16 12:30 67 31 100 09/04/16 12:28 92/46 09/04/16 12:25 66 24 100 09/04/16 12:20 66 26 100 09/04/16 12:15 68 30 100 09/04/16 12:10 70 25 100 09/04/16 12:09 36.5 67 18 103/41 100 3.0 09/04/16 12:08 103/41 09/04/16 12:05 68 27 100 09/04/16 12:00 70 26 100 09/04/16 11:59 108/48 09/04/16 11:55 68 30 100 09/04/16 11:50 67 30 100 09/04/16 11:45 70 32 100 09/04/16 11:40 68 30 100 09/04/16 11:35 67 23 100 09/04/16 11:33 68 132/54 100 Nasal Cannula 2.0 09/04/16 11:30 68 32 100 09/04/16 11:28 132/54 09/04/16 11:25 68 24 100 09/04/16 11:20 65 29 100 09/04/16 11:15 66 31 99 09/04/16 11:10 67 27 100 09/04/16 11:10 100 Nasal Cannula 2.0 09/04/16 11:05 64 29 100 09/04/16 11:00 65 35 100 09/04/16 10:59 110/70 09/04/16 10:55 63 25 100 09/04/16 10:55 66 18 114/51 100 Nasal Cannula 2.0 09/04/16 10:50 67 30 100 09/04/16 10:47 114/51 09/04/16 10:45 65 25 100 09/04/16 10:40 72 18 71 09/04/16 10:35 68 27 09/04/16 10:30 77 24 67 09/04/16 10:29 66 09/04/16 10:23 95 Nasal Cannula 2.0 09/04/16 10:23 95 Nasal Cannula 2.0 09/04/16 10:18 36.6 66 22 125/69 86 Room Air 09/04/16 10:12 125/69 Physical Exam GENERAL: Patient is sitting up in bed, on nasal canula, alert, disheveled appearing, well nourished, in mild distress, non-toxic EYE EXAM: normal conjunctiva OROPHARYNX: no exudate, no erythema, lips, buccal mucosa, and tongue normal and mucous membranes are moist NECK: supple, no nuchal rigidity, no adenopathy, non-tender LUNGS: Clear to auscultation. Normal chest wall mechanics HEART: no murmurs, S1 normal and S2 normal ABDOMEN: abdomen soft, non-tender, normo-active bowel sounds, no masses, no rebound or guarding. BACK: Back is symmetrical on inspection and there is no deformity, no midline tenderness, no CVA tenderness. RECTAL: External hemorrhoids present without any active bleeding from hemorrhoids. Bright red blood mixed with clots present on pad. SKIN: no rashes and no bruising UPPER EXTREMITIES: upper extremities are grossly normal. LOWER EXTREMITIES: No pitting edema. NEURO EXAM: Normal sensorium, cranial nerves II-XII grossly intact, normal speech, no gross weakness of arms, no gross weakness of legs. Gross sensation intact. Medical Decision & Procedures ER Provider Diagnostic Interpretation: This X-Ray was reviewed and interpreted by myself and the radiologist. CHEST ONE VIEW PORTABLE IMPRESSION: 1. Small left pleural effusion, decreased in size since exam of July 11, 2016. 2. Mild lower lung interstitial thickening. No evidence for overt pulmonary edema. Electronically signed by: Timmy Candelaria M.D. 09/04/2016 11:38 AM Laboratory Results 09/04/16 10:35 Red Blood Count 3.12, Mean Corpuscular Volume 96.8, Mean Corpuscular Hemoglobin 31.1, Mean Corpuscular Hemoglobin Concent 32.1, Mean Platelet Volume 9.7, Neutrophils (%) (Auto) 71.1, Lymphocytes (%) (Auto) 15.4, Monocytes (%) (Auto) 10.9, Eosinophils (%) (Auto) 1.9, Basophils (%) (Auto) 0.4, Neutrophils # (Auto ) 7.67, Lymphocytes # (Auto) 1.66, Monocytes # (Auto) 1.18, Eosinophils # (Auto ) 0.21, Basophils # (Auto) 0.04 09/04/16 10:35 Test 09/04/16 10:35 09/04/16 10:37 09/04/16 13:14 White Blood Count 10.79 K/uL (4.8-10.8) Red Blood Count 3.12 M/uL (4.2-5.4) Hemoglobin 9.7 g/dL (12.0-16.0) Hematocrit 30.2 % (37-47) Mean Corpuscular Volume 96.8 fL (80-100) Mean Corpuscular Hemoglobin 31.1 pg (25-34) Mean Corpuscular Hemoglobin Concent 32.1 g/dl (32-36) Platelet Count 212 K/uL (130-400) Mean Platelet Volume 9.7 fL (7.4-10.4) Neutrophils (%) (Auto) 71.1 % Lymphocytes (%) (Auto) 15.4 % Monocytes (%) (Auto) 10.9 % Eosinophils (%) (Auto) 1.9 % Basophils (%) (Auto) 0.4 % Neutrophils # (Auto) 7.67 K/uL (1.4-6.5) Lymphocytes # (Auto) 1.66 K/uL (1.2-3.4) Monocytes # (Auto) 1.18 K/uL (0.11-0.59) Eosinophils # (Auto) 0.21 K/uL (0-0.5) Basophils # (Auto) 0.04 K/uL (0-0.2) RDW Standard Deviation 53.9 fL (36.4-46.3) RDW Coefficient of Variation 15.6 % (11.5-14.5) Immature Granulocyte % (Auto) 0.3 % Immature Granulocyte # (Auto) 0.03 K/uL (0.00-0.02) Prothrombin Time 11.4 SECONDS (9.0-12.0) Prothromb Time International Ratio 1.1 (0.9-1.1) Activated Partial Thromboplast Time 26.8 SECONDS (21.0-31.0) Partial Thromboplastin Ratio 1.0 Est Creatinine Clear Calc Drug Dose 9.1 ml/min Estimated GFR () 8.9 Estimated GFR (Non- 7.7 BUN/Creatinine Ratio 10.2 (10-20) Calcium Level 8.8 mg/dl (8.5-10.1) Total Bilirubin 0.4 mg/dl (0.2-1) Direct Bilirubin 0.1 mg/dl (0-0.2) Aspartate Amino Transf (AST/SGOT) 16 U/L (15-37) Alanine Aminotransferase (ALT/SGPT) 9 U/L (12-78) Alkaline Phosphatase 62 U/L (45-117) Total Protein 5.4 gm/dl (6.4-8.2) Albumin 2.1 gm/dl (3.4-5.0) Lipase 134 U/L (73-393) Bedside Hemoglobin 10.2 g/dl (12.0-16.0) Bedside Hematocrit 30 % (37-47) Bedside Sodium 137 mEq/L (135-144) Bedside Potassium 5.0 mEq/L (3.3-5.0) Bedside Chloride 99 mEq/L (101-112) Bedside Total CO2 26 mEq/l (24-31) Anion Gap 19.0 mmol/L (16-25) Bedside Blood Urea Nitrogen 43 mg/dl (7-18) Bedside Creatinine 4.6 mg/dl (0.6-1.3) Bedside Glucose (other) 181 mg/dl (70-99) Bedside Ionized Calcium (Angelito) 1.12 mmol/l (1.12-1.32) Creatine Kinase MB Ratio (0-3.0) Laboratory results per my review. Medications Administered Medications (Trade) Dose Ordered Sig/Janeth Route Start Time Stop Time Status Last Admin Dose Admin Sodium Chloride 500 ml @ 999 mls/hr Q31M STAT IV 09/04/16 10:21 09/04/16 10:51 DC 09/04/16 10:21 999 MLS/HR Sodium Chloride 1,000 ml @ 100 mls/hr Q10H IV 09/04/16 13:14 10/04/16 13:13 09/04/16 17:07 100 MLS/HR Desmopressin Acetate/Sodium Chloride (Ddavp Inj/Nss 50ml) 56.25 ml @ 100 mls/hr NOW ONCE IV 09/04/16 16:00 09/04/16 16:33 DC 09/04/16 15:59 100 MLS/HR ECG Indication: weakness Rate (beats per minute): 66 Rhythm: sinus rhythm Findings: ST depression (Lateral), T-wave inversion (Anterior), other (normal axis) Comparison ECG Date: Compared to EKG from July 10, 2016, there are flipped t -waves in anterior leads with worsening depression in anterior leads ED Course ED COURSE: Vital signs were reviewed and showed the patient is hypoxic. The patients medical record was reviewed The above diagnostic studies were performed and reviewed. ED treatments and interventions as stated above. 1014: The patient was evaluated in room B3. A complete history and physical examination was performed. 1021: NSS 500 ml @ 999 mls/hr IV. 1033: I discussed the patients case with Dr. Jesus, [facility] Antico[facility] Medicine. She will call the blood bank and see if we can get platelets any sooner than this afternoon. When they come in, she recommends we give cryoprecipitate. 1048: Nursing informed me the patient has started experiencing sudden onset chest pain. 1054: Case Management informed me that Dr. Jesus has made a phone call to the blood bank. 1107: I discussed the patient's case with Dr. Bowers, [facility]. The patient will be further evaluated. 1125: Upon reevaluation, the patient is resting comfortably. I discussed my findings with the patient and sje understands and agrees with the treatment plan. She also informed me that she is full code status. Based on the patients age, coexisting illnesses, exam and lab findings the decision to treat as an inpatient was made. 1136: I discussed the patient's case with Dr. Desir, [facility] Hospitalist. The patient will be further evaluated. The patient remained stable while under my care. The patient will be evaluated for further management. 1215: I reevaluated the patient. She is feeling well and resting comfortably. 1335: I reevaluated the patient. Her systolic blood pressure is now in the 100' s. 1445: Dr. Lynos from ICU is now at the bedside. He is placing a central line on the patient. 1455: The patient has received 2 units of PRBC's. Medical Decision Differential diagnosis includes etiologies such as diverticulosis, AVM, coagulopathy, colitis, inflammatory bowel disease, malignancy, Lanie-Martin tear, esophagitis, peptic ulcer disease, variceal bleed, gastritis, epistaxis, fissure, hemorrhoids, as well as others were entertained. Patient is an 86-year-old female who is dialysis dependent that presents the ER for bright red blood per rectum. She has been having diarrhea and notes that her last several bowel movements had clots in it. Patient denies any abdominal pain. She is taking Plavix and aspirin. Last dose of Plavix last night. Upon presentation she does have external hemorrhoids that these are not bleeding. There was blood present on the pad. I immediately typed and crossed her established 2 IVs. Gastroenterology was also notified. They noted they would scope her tomorrow following seeing her at bedside. 1 was an 18 the other was a 22. Platelets were ordered and had my charge nurse immediate recall down following seeing the patient to obtain them. They were not in-house. Following this I called Dr. hale to obtain platelets but she notes she has called the blood bank. She did recommend adding cryoprecipitate when she obtains the platelets. I then called to the blood bank and they note they sent a static carrier to platelets. At this time I ordered 2 units of PRBCs. I consulted internal medicine. Patient will be admitted. Just prior to admission orders being placed patient became hypotensive. She had received platelets and she is given cryoprecipitate. This time I ordered 2 additional units to transfuse. Her blood pressure came up prior to the administration of the third unit of PRBCs. Following the admission patient was still resting in the ER and had a large bloody bowel movement which consisted of pure clot. At this time both myself and the ICU attending presents at bedside. She is moved into B1. A large central venous catheter was placed by the ICU attending. At that time she was switched from the medical floor to the ICU. She remained hemodynamic stable while in the ER. She is given additional 2 units of PRBCs. She is also ordered DDAVP. She was monitored closely upon transfer to the ICU for an active symptom at a GI bleed. Her systolic pressures only tipped once in the 80s. Remainder of the time she has been in the low 100s. Consults Time Called: 1030 Consulting Physician: Dr. Jesus, [facility] Returned Call: 1033 I discussed the patient's case with Dr. Jesus, [facility]. She will call the blood bank and see if we can get platelets any sooner than this afternoon. When they come in, she recommends we give cryoprecipitate. Additional Consults: Time Called: 1105 [facility] Returned Call: 1107 Additional Comments: I discussed the patient's case with Dr. Bowers [facility]. The patient will be further evaluated. Time Called: 1135 Consulted Physician: Dr. Desir, [facility] Hospitalist Returned Call: 113 Additional Comments: I discussed the patient's case with Dr. Desir, [facility] Hospitalist. The patient will be further evaluated. Impression Primary Impression: GI bleed Additional Impressions: Symptomatic anemia, Hypotension Critical Care I have personally spent 130 minutes of critical care time in the direct management of this patient. This includes bedside care, interpretation of diagnostic studies, and testing, discussion with consultants, patient, and family members, and other required patient management activities. This 130 minutes is in excess of all separately billable procedures. Scribe Attestation The scribe's documentation has been prepared under my direction and personally reviewed by me in its entirety. I confirm that the note above accurately reflects all work, treatment, procedures, and medical decision making performed by me. Departure Information Dispostion Being Evaluated By Hospitalist Cooper Guillaume M.D. (PCP)
[2016-09-04] MEDS: CALCIUM ACETATE 667MG GELCAP PO SCH (18:09)
[2016-09-04] MEDS: INSULIN ASPART 100 UNITS/ML 3 ML PEN SC SCH ×2 (18:09→21:00)
[2016-09-04 18:31] LABS: URINE APPEARANCE CLEAR (CLEAR); URINE BILIRUBIN NEG (NEG); URINE COLOR DK YELLOW; URINE EPITHELIAL CELL AUTO >30 /lpf (0-5); URINE NITRITE NEG (NEG); URINE PH 6.5 (4.5-7.5); URINE SPECIFIC GRAVITY 1.021 (1.000-1.030); UROBILINOGEN NEG (NEG)
[2016-09-04 18:32] LABS: MANUAL MICROSCOPIC REQUIRED? NO; REVIEW REQ? YES
[2016-09-04 18:35] LABS: HEMATOCRIT 30.6 % (37-47)
[2016-09-04 18:41] LABS: URINE PATH CASTS 0-3 GRANULAR CASTS /lpf (0)
--- NOTE | 2016-09-04 18:59 | Procedure Note ---
Procedure Note Procedure Date Sep 04, 2016. Central Line Procedure time out: side/site verified, patient ID confirmed, sterile procedure used Consent obtained: verbal, emergent consent implied Time of procedure: 16:00 Performed by: attending Indications: other (active GI bleeding) Prep: chlorhexadine prep Anesthesia: lidocaine 1% without epi (2 mL) Volume anesthetic (ml's): 2 Central line lumen: 9 Latvian introducer Central line location: internal jugular (R) Additional details: percutaneous placement, ultrasound guidance, Selinger technique used, line sutured, good blood return CXR: appropriate position, no pneumothorax Complications: none Patient tolerated procedure: well Post-procedure vital signs: reviewed and stable
[2016-09-04 19:17] LABS: CKMB/CK RATIO 3.8 (0-3.0)
[2016-09-04] MEDS ORDERED: SODIUM CHLORIDE 0.45% 1000ML 1,000 ML IV SCH (19:30)
--- NOTE | 2016-09-04 19:39 | Critical Care Consultation ---
Critical Care Consultation Date of Consultation: Sep 04, 2016. Attending Physician: Max Desir MD, PhD Reason for Consultation: Rapid GI bleeding History of Present Illness Patient is an 86-year-old female with significant past medical history for anemia chronic disease, end-stage renal disease on hemodialysis, CHF CAD, diabetes type 2, hypertension who presented to the ED for complaints of bright red blood per rectum. She has previously received blood transfusions for anemia , she follows up with Dr. jackman with GI, has known external hemorrhoids for which she thought the gastrointestinal bleeding was initially attributed to. Patient was initially admitted to the hospitalist service to a telemetry floor, however while in the ED she had several large melanotic stools which prompted her upgrade to ICU status. Family History Asthma Cancer SISTER (Breast cancer) Chronic kidney disease MOTHER Diabetes mellitus FATHER Heart disease FATHER Hypertension FATHER MOTHER Kidney disease Kidney stones Stroke Social History Smoking Status: Never Smoker Smokeless Tobacco Use: No Alcohol Use: none Drug Use: none Marital Status: Housing Status: lives alone Occupation Status: retired Allergies Coded Allergies: No Known Allergies (Unverified , 09/04/16) Home Medications Scheduled Allopurinol (Zyloprim), 50 MG PO QAM Amiodarone Hcl (Cordarone), 200 MG PO DAILY Aspirin (Aspirin Ec), 81 MG PO HS Bumetanide (Bumex), 1 MG PO DAILY Calcium Acetate (Phoslo 667 Mg), 667 MG PO TIDM Clopidogrel (Plavix), 75 MG PO HS Insulin Human NPH (Humulin N), 12 UNITS SQ QAM Ipratropium-Albuterol (Duoneb), 1 TREATMENT INH AMHS Isosorbide Mononitrate Ext Rel (Imdur Ext Rel), 60 MG PO QAM Metoprolol Tartrate (Lopressor), 12.5 MG PO BID Nitroglycerin (Nitrostat), 0.4 MG UT PRN Potassium Chloride Microencaps (Potassium Chloride Er), 20 MEQ PO DAILY Probiotic Product (Probiotic), 1 TAB PO DAILY Rosuvastatin Calcium (Crestor), 10 MG PO HS Sennosides-Docusate Sodium (Stool Softener), 1 TAB PO BID Scheduled PRN Albuterol Sulfate (Proair Hfa), 2 PUFFS INH QID PRN for SOB/Wheezing Current Inpatient Medications Current Inpatient Medications Medications (Trade) Dose Ordered Sig/Janeth Route Start Time Stop Time Status Last Admin Dose Admin Polyethylene Glycol/ Electrolytes 8 dose 8 dose BID@0300,1800 PO 09/04/16 18:00 09/05/16 03:01 Sodium Chloride (Nss 1000ml) 1,000 ml @ 100 mls/hr Q10H IV 09/04/16 13:14 10/04/16 13:13 09/04/16 17:07 100 MLS/HR Acetaminophen (Tylenol Tab) 650 mg Q4H PRN PO 09/04/16 13:15 10/04/16 13:14 Al Hydrox/Mg Hydrox/Simethicone (Maalox Max Susp) 15 ml Q4H PRN PO 09/04/16 13:15 10/04/16 13:14 Magnesium Hydroxide (Milk Of Magnesia Susp) 30 ml Q12H PRN PO 09/04/16 13:15 10/04/16 13:14 Ondansetron HCl (Zofran Inj) 4 mg Q6H PRN IV 09/04/16 13:15 10/04/16 13:14 Polyethylene (Miralax Powder Packet) 17 gm DAILY PRN PO 09/04/16 13:15 10/04/16 13:14 Insulin Aspart (novoLOG ASPART) SLIDING SCALE If C... ACHS SC 09/04/16 16:00 10/04/16 15:59 Glucose (Glucose 40% Gel) 15-30 GRAMS 15 GRAMS... UD PRN PO 09/04/16 13:15 10/04/16 13:14 Glucose (Glucose Chew Tab) 4-8 Tablets 4 Tabl... UD PRN PO 09/04/16 13:15 10/04/16 13:14 Dextrose (Dextrose 50% 50ML Syringe) 25-50ML OF 50% DW IV FOR... UD PRN IV 09/04/16 13:15 10/04/16 13:14 Glucagon (Glucagon Inj) 1 mg UD PRN SQ 09/04/16 13:15 10/04/16 13:14 Albuterol (Ventolin Hfa Inhaler) 2 puffs QID PRN INH 09/04/16 13:15 10/04/16 13:14 Amiodarone HCl (Cordarone Tab) 200 mg DAILY PO 09/05/16 09:00 10/05/16 08:59 Calcium Acetate (Phoslo Cap) 667 mg TIDM PO 09/04/16 17:28 10/04/16 17:59 Albuterol/ Ipratropium (Duoneb) 3 ml Q12R INH 09/04/16 20:00 10/04/16 19:59 Nitroglycerin (Nitrostat Tab) 0.4 mg UD PRN UT 09/04/16 13:15 10/04/16 13:14 Potassium Chloride (Klor-Con Tab) 20 meq DAILY PO 09/05/16 09:00 10/05/16 08:59 Rosuvastatin Calcium (Crestor Tab) 10 mg HS PO 09/04/16 21:00 10/04/16 20:59 Review of Systems no chest pain, no shortness of breath, + exertional and generalized fatigue Physical Exam Date Time Temp Pulse Resp B/P Pulse Ox O2 Delivery O2 Flow Rate FiO2 09/04/16 18:43 66 22 118/45 100 Nasal Cannula 2.0 09/04/16 18:00 37.6 68 20 109/55 100 Nasal Cannula 2.0 09/04/16 17:09 65 18 117/44 99 2.0 09/04/16 16:47 71 21 118/45 99 2.0 09/04/16 16:04 36.8 72 23 120/49 99 2.0 09/04/16 15:35 36.5 73 25 132/58 95 2.0 09/04/16 15:24 77 16 138/76 98 2.0 09/04/16 15:19 36.8 76 20 144/88 98 09/04/16 15:16 84 20 164/69 98 09/04/16 15:08 36.9 09/04/16 15:05 76 28 164/69 97 2.0 09/04/16 14:50 82 30 175/63 100 10.0 09/04/16 14:31 36.7 70 21 140/61 100 2.0 09/04/16 14:03 36.3 65 22 114/44 100 2.0 09/04/16 13:49 64 22 121/52 100 2.0 09/04/16 13:49 36.4 64 22 121/52 100 2.0 09/04/16 13:46 62 09/04/16 13:35 36.6 66 18 104/44 100 2.0 09/04/16 13:29 36.7 62 21 83/42 100 2.0 09/04/16 13:29 36.6 62 21 83/42 100 2.0 09/04/16 13:15 36.6 68 22 81/46 100 2.0 09/04/16 13:02 36.5 67 25 105/44 100 2.0 09/04/16 12:31 68 18 92/46 100 3.0 09/04/16 12:30 67 31 100 09/04/16 12:28 92/46 09/04/16 12:25 66 24 100 09/04/16 12:20 66 26 100 09/04/16 12:15 68 30 100 09/04/16 12:10 70 25 100 09/04/16 12:09 36.5 67 18 103/41 100 3.0 09/04/16 12:08 103/41 09/04/16 12:05 68 27 100 09/04/16 12:00 70 26 100 09/04/16 11:59 108/48 09/04/16 11:55 68 30 100 09/04/16 11:50 67 30 100 09/04/16 11:45 70 32 100 09/04/16 11:40 68 30 100 09/04/16 11:35 67 23 100 09/04/16 11:33 68 132/54 100 Nasal Cannula 2.0 09/04/16 11:30 68 32 100 09/04/16 11:28 132/54 09/04/16 11:25 68 24 100 09/04/16 11:20 65 29 100 09/04/16 11:15 66 31 99 09/04/16 11:10 67 27 100 09/04/16 11:10 100 Nasal Cannula 2.0 09/04/16 11:05 64 29 100 09/04/16 11:00 65 35 100 09/04/16 10:59 110/70 09/04/16 10:55 63 25 100 09/04/16 10:55 66 18 114/51 100 Nasal Cannula 2.0 09/04/16 10:50 67 30 100 09/04/16 10:47 114/51 09/04/16 10:45 65 25 100 09/04/16 10:40 72 18 71 09/04/16 10:35 68 27 09/04/16 10:30 77 24 67 09/04/16 10:29 66 09/04/16 10:23 95 Nasal Cannula 2.0 09/04/16 10:23 95 Nasal Cannula 2.0 09/04/16 10:18 36.6 66 22 125/69 86 Room Air 09/04/16 10:12 125/69 [employer]/Neuro: AAOx 3, Pupils: Equal round reactive, Focal Signs: None Respiratory: Clear to auscultation bilaterally, no rhonchi or wheezes rales Cardiovascular: S1 and S2 EKG: EKG reviewed dated 09/04/2016, reported new T-wave inversion in the inferior and anterior lateral leads ECHO: Echo reviewed dated 06/15/2016: Findings moderate to severe valvular aortic stenosis, moderate mitral regurgitation Fluids/Renal: 1/2 Sodium chloride at 100 MLS an hour Farris present GI/Nutrition: Abdomen soft nondistended nontender, melanotic stools Feeding: Nothing by mouth Prophylaxis: No history of colonoscopy, no severe upper abdominal pain suspect lower source however we'll place on Protonix twice a day in the meantime Endocrine: Last 24 hour glucose: 181 Insulin protocol: Yes; Drip: No Hematology: DVT prophylaxis: SCDs until definitive colonoscopy Skin/MSK: multiple ecchymoses throughout skin Infectious Disease/Immunology: Tmax: Low-grade temp after blood transfusion CVL (date): 9 Citizen Of [place] introducer placed 09/04/2016 right IJ Antimicrobials: Not applicable Laboratory Results Last 24 Hours Test 09/04/16 10:35 09/04/16 10:37 09/04/16 13:14 09/04/16 17:22 White Blood Count 10.79 K/uL Red Blood Count 3.12 M/uL Hemoglobin 9.7 g/dL Hematocrit 30.2 % Mean Corpuscular Volume 96.8 fL Mean Corpuscular Hemoglobin 31.1 pg Mean Corpuscular Hemoglobin Concent 32.1 g/dl Platelet Count 212 K/uL Mean Platelet Volume 9.7 fL Neutrophils (%) (Auto) 71.1 % Lymphocytes (%) (Auto) 15.4 % Monocytes (%) (Auto) 10.9 % Eosinophils (%) (Auto) 1.9 % Basophils (%) (Auto) 0.4 % Neutrophils # (Auto) 7.67 K/uL Lymphocytes # (Auto) 1.66 K/uL Monocytes # (Auto) 1.18 K/uL Eosinophils # (Auto) 0.21 K/uL Basophils # (Auto) 0.04 K/uL RDW Standard Deviation 53.9 fL RDW Coefficient of Variation 15.6 % Immature Granulocyte % (Auto) 0.3 % Immature Granulocyte # (Auto) 0.03 K/uL Prothrombin Time 11.4 SECONDS Prothromb Time International Ratio 1.1 Activated Partial Thromboplast Time 26.8 SECONDS Partial Thromboplastin Ratio 1.0 Sodium Level 140 mmol/L Potassium Level 5.0 mmol/L Chloride Level 102 mmol/L Carbon Dioxide Level 28 mmol/L Anion Gap 10.0 mmol/L 19.0 mmol/L Blood Urea Nitrogen 49 mg/dl Creatinine 4.80 mg/dl Est Creatinine Clear Calc Drug Dose 9.1 ml/min Estimated GFR () 8.9 Estimated GFR (Non- 7.7 BUN/Creatinine Ratio 10.2 Random Glucose 181 mg/dl Calcium Level 8.8 mg/dl Total Bilirubin 0.4 mg/dl Direct Bilirubin 0.1 mg/dl Aspartate Amino Transf (AST/SGOT) 16 U/L Alanine Aminotransferase (ALT/SGPT) 9 U/L Alkaline Phosphatase 62 U/L Total Protein 5.4 gm/dl Albumin 2.1 gm/dl Lipase 134 U/L Bedside Hemoglobin 10.2 g/dl Bedside Hematocrit 30 % Bedside Sodium 137 mEq/L Bedside Potassium 5.0 mEq/L Bedside Chloride 99 mEq/L Bedside Total CO2 26 mEq/l Bedside Blood Urea Nitrogen 43 mg/dl Bedside Creatinine 4.6 mg/dl Bedside Glucose (other) 181 mg/dl Bedside Ionized Calcium (Angelito) 1.12 mmol/l Creatine Kinase MB Ratio Urine Color DK YELLOW Urine Appearance CLEAR Urine pH 6.5 Urine Specific [place] 1.021 Urine Protein 1+ Urine Glucose (UA) NEG Urine Ketones NEG Urine Occult Blood NEG Urine Nitrite NEG Urine Bilirubin NEG Urine Urobilinogen NEG Urine Leukocyte Esterase NEG Urine WBC (Auto) 1-5 /hpf Urine RBC (Auto) 0-4 /hpf Urine Hyaline Casts (Auto) 10-30 /lpf Urine Epithelial Cells (Auto) >30 /lpf Urine Bacteria (Auto) NEG Urine Renal Epithelial Cells 10-20 /lpf Urine Pathogenic Casts 0-3 GRANULAR CASTS /lpf Test 1/2/17 17:53 09/04/16 18:19 Bedside Glucose 154 mg/dl Hemoglobin 10.2 g/dL Hematocrit 30.6 % Assessment & Plan Reason Critically Ill: Patient critically ill due to gastrointestinal bleeding requiring blood transfusion PLAN: Neuro: Stable at this time Resp: Stable on room air CV: History of aortic stenosis, no afterload reduction, avoid hypotensive medications Fluids/Renal: Half NSS at 100 ML's per hour ID: Low-grade temp after blood transfusion, continue to monitor fever curve GI/Nutrition: Placed on a PPI IV while awaiting bowel prep, suspect lower gastrointestinal source, bowel prep ordered, CT scan with IV and oral contrast ordered and pending, GI following, plan for colonoscopy in the morning unless hemodynamically stable or increase GI losses Heme: Anemia of chronic disease, acute blood loss anemia, 2 units on hold, check CBCs every 6, on aspirin and Plavix and uremic, given DDAVP Endocrine: Insulin protocol I have personally spent 45 minutes of critical care time in the direct management of this patient. This is a life/limb threatening event. This includes time spent evaluating patient, direct bedside care, chart review, placing orders, interpretation of diagnostic studies, discussion with consultants, patient, and family members, as well as other required patient management activities. This time is exclusive of all separately billable procedures, and teaching time and separate from and in addition to any other critical care service time.
[2016-09-04] MEDS: ALBUT/IPRATROP 3MG/0.5MG NEB 3 ML VIAL INH SCH (19:43)
[2016-09-04] MEDS: PANTOprazole INJ 40 MG in SYRINGE 0 ML IV SCH (20:07)
[2016-09-04] MEDS: ROSUVASTATIN CALCIUM 10 MG TAB PO SCH (20:08)
[2016-09-04] MEDS ORDERED: OPTIRAY 320 IV PRN (21:00)
--- NOTE | 2016-09-04 21:12 | DIAGNOSTIC IMAGING REPORT ---
ABDOMEN AND PELVIS CT WITH IV AND ORAL CONTRAST CT DOSE: 501.25 mGy.cm HISTORY: Pain Rectal bleeding TECHNIQUE: Multiaxial CT images of the abdomen and pelvis were performed following the use of intravenous and oral contrast. COMPARISON STUDY: None. FINDINGS: Small bilateral pleural effusions. Mild bibasilar atelectasis. Moderate cardiomegaly. Mild fatty infiltration of liver. Small hypervascular nodule inferior aspect right hepatic lobe. This may represent a small hemangioma. Atrophy of the pancreas. Cortical scarring and cortical thinning of the kidneys bilaterally. No evidence for hydronephrosis. Postoperative changes to the lumbar spine. Mild body wall anasarca. Nonobstructive bowel pattern. Farris catheter is in position within the bladder. Right hip arthroplasty. Nonobstructive bowel pattern. Postoperative changes to the lumbar spine. IMPRESSION: 1. Small bilateral pleural effusions with bibasilar atelectasis. 2. Moderate body wall anasarca. 3. No acute process of the abdomen or pelvis. Electronically signed by: Raulito Acosta M.D. 09/04/2016 9:09 PM
[2016-09-04] MEDS: LAVAGE SOLUTION 4000ML PO SCH (22:32)
[2016-09-04 22:45] LABS: HEMATOCRIT 29.4 % (37-47)
[2016-09-04 23:21] LABS: CKMB/CK RATIO 2.3 (0-3.0)
[2016-09-05] VITALS (15 sets, daily range): BP systolic 107–131; BP diastolic 40–57; PULSE 61–75; TEMP 36.4–37; O2SAT 92–100
[2016-09-05] MEDS: LAVAGE SOLUTION 4000ML PO SCH (03:07)
[2016-09-05 06:14] LABS: HEMATOCRIT 29.3 % (37-47)
[2016-09-05 06:15] LABS: BASO % 0.6 %; BASO ABS # 0.05 K/uL (0-0.2); COMPLETE YES; EOS % 2.3 %; HEMATOCRIT 29.6 % (37-47); IG% 0.5 %; LYMPH % 15.2 %; LYMPH ABS # 1.33 K/uL (1.2-3.4); MEAN CELL VOLUME 89.7 fL (80-100); MEAN CORPUSCULAR HEMOGLOBIN 29.4 pg (25-34); MEAN CORPUSCULAR HGB CONC 32.8 g/dl (32-36); MEAN PLATELET VOLUME 10.7 fL (7.4-10.4); MONO % 10.3 %; NEUT % 71.1 %; PLATELET COUNT 141 K/uL (130-400); WHITE BLOOD COUNT 8.77 K/uL (4.8-10.8)
[2016-09-05 06:55] LABS: BUN/CREATININE RATIO 10.7 (10-20); CALCIUM 8.3 mg/dl (8.5-10.1); CKMB/CK RATIO 3.1 (0-3.0); CREATININE 4.6 mg/dl (0.60-1.20); MAGNESIUM 2.8 mg/dl (1.8-2.4); POTASSIUM 4.5 mmol/L (3.5-5.1)
[2016-09-05] MEDS: ALBUT/IPRATROP 3MG/0.5MG NEB 3 ML VIAL INH SCH ×2 (07:12→20:17)
[2016-09-05] MEDS: CALCIUM ACETATE 667MG GELCAP PO SCH ×3 (07:15→17:24)
[2016-09-05] MEDS: INSULIN ASPART 100 UNITS/ML 3 ML PEN SC SCH ×4 (07:33→21:00)
[2016-09-05] MEDS: PANTOprazole INJ 40 MG in SYRINGE 0 ML IV SCH ×2 (08:26→21:03)
[2016-09-05] MEDS ORDERED: PROCHLORPERAZINE INJ 5 MG in SYRINGE 4 ML IV PRN ×2 (09:00→09:45)
[2016-09-05] MEDS ORDERED: POTASSIUM CHLORIDE 20 MEQ TABCR PO SCH (09:00)
--- NOTE | 2016-09-05 09:45 | Clinical Documentation Query ---
CANDE Sidhu : CLINICAL DOCUMENTATION QUERIES QUERY 1 OF 3 Patient is an 86 year old female admitted with bright red blood per rectum. Noted is daily use (per provider instruction) of ASA and Plavix. If you feel these exogenous anticoagulating medications are culpable, please consider documentation as suggested below as this directly impacts DRG assignment. In your clinical opinion is this patient being managed for: ( ) GI bleed due to extrinsic circulating anticoagulants, ASA and Plavix ( ) Other explanation of clinical findings (Please Explain) (x ) GI bleed Unable to determine for now (Please Define) ( ) Need to Discuss ( ) Not Agree The medical record reflects the following clinical findings, treatment, and risk factors. Clinical Indicators: As above Treatment: Serial hematology, GI consultation, colonoscopy pending, PRBC transfusion Risk Factors: ASA, Plavix use QUERY 2 OF 3 Documentation includes: "Acute on chronic anemia, and Anemia of chronic disease--baseline Hgb around 11". Please clarify as below as clinically appropriate. Thank you In your clinical opinion is this patient being managed for: ( x ) Acute blood loss anemia on anemia of chronic disease ( ) Other explanation of clinical findings (Please Explain) ( ) Unable to determine (Please Define) ( ) Need to Discuss ( ) Not Agree The medical record reflects the following clinical findings, treatment, and risk factors. Clinical Indicators: As above Treatment: PRBC transfusion, serial hematology, ICU admission, GI consultation, pending colonoscopy Risk Factors: ASA, Plavix use, age QUERY 3 OF 3 Documentation includes CHF, not otherwise specified. Echocardiogram from 06/18 read to include "Ejection Fraction = 50-55%, moderate MR, moderate to severe , moderate [place]". Admission at this time included a diagnosis of acute on chronic diastolic CHF. Home treatment regimen includes Amiodarone, Bumex, Imdur, and Lopressor. Please clarify the type and acuity of CHF in your patient. Thank you. In your clinical opinion is this patient being managed for: ( x ) Chronic diastolic CHF ( ) Other explanation of clinical findings (Please Explain) ( ) Unable to determine (Please Define) ( ) Need to Discuss ( ) Not Agree The medical record reflects the following clinical findings, treatment, and risk factors. Clinical Indicators: As above Treatment: As above Risk Factors: CAD, ESRD, DM, hypertension Please clarify and document your clinical opinion in the progress notes and discharge summary. Terms such as "probable", "suspected", "likely", "questionable", "possible", or "still to be ruled out" are acceptable. IF IN AGREEMENT, YOU MUST DOCUMENT ABOVE DIAGNOSTIC STATEMENT IN DAILY PROGRESS NOTES AND DISCHARGE SUMMARY. This document is not part of the patient's record. Thank You, Elio Zhang, ANN [phone]
--- NOTE | 2016-09-05 09:52 | DIAGNOSTIC IMAGING REPORT ---
CHEST ONE VIEW PORTABLE CLINICAL HISTORY: Acute Reps Failure dyspnea COMPARISON STUDY: 09/04/2016 FINDINGS: PermCath in the superior vena cava. Nasogastric tube within the stomach. Increased prominence of pulmonary vasculature. Moderate cardiac megaly unchanged. Trace pleural fluid both lateral costophrenic angles. Hilar fullness bilaterally IMPRESSION: Slightly progressive components radiographically of congestive failure/pulmonary edema. Various tubes and lines in good position as noted Electronically signed by: Raulito Acosta M.D. 09/05/2016 9:50 AM
[2016-09-05] MEDS: AMIODARONE 200 MG TAB PO SCH (09:55)
[2016-09-05 10:32] LABS: HEMATOCRIT 29.4 % (37-47)
--- NOTE | 2016-09-05 11:22 | Critical Care Progress Note ---
Critical Care Progress Note Date of Service Sep 05, 2016. Attending Dr. Lyons Subjective No complaints at this time Denies chest pain, palpitations or worsening SOB Nursing notes, desaturation overnight with oxygen requirement 2 L by nasal cannula; no home oxygen needs at baseline Objective Physical Exam: General: Comfortable, no apparent distress Eyes: \PERRL, normal EOM bilaterally ENT: \Mucous membranes moist, pharynx clear, TM clear Neck: No JVD, no lymphadenopathy, no thyromegaly, right sided IJ introducer, overlying skin intact; no erythema Lungs: Crackles left > right, no wheezing, no crackles Heart: S1 and S2 with no added sounds or murmurs Abdomen: Soft, non-tender, non-distended, normal bowel sounds in all 4 quadrants Extremities: No pitting edema, no asymmetric swelling, patient has mild calf tenderness bilaterally; notes that the calf pain is long-standing for many years Neuro: AO x 3, responds to commands appropriately, normal mood and affect Assessment & Plan Pleasant 86 year old with the following active issues: - Acute GI bleed - 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 The plan for her is as follows: Neuro - AO x 3 - ICU CAM negative Respiratory Hypoxic respiratory failure - As defined by new oxygen requirement, 2 L by nasal cannula for overnight desaturation - Crackles noted bilaterally on examination; CXR notes progressive of vascular congestion - Consider TRALI, however, occurred > 6 hours following transfusion of Plt, cryoprecipitate and RBCs - Bumex from home meds, placed on hold; IV bumex - Continue Albuterol per home medications - Continue Duoneb q 12 hours Cardiovascular - BP stable 120s/50s - HR 60s - No IV infusions required currently for hemodynamic support Prolonged QTc - 518 on EM EKG - Hold offending medications: Will discontinue Zofran - Repeat EKG in AM New EKG changes with troponin increase - Denies chest pain - Persistent inferolateral ST changes this morning - Troponins trending 0.046 --> 0.058 -- >0.057; ESRD likely also limiting clearance - Continue to trend cardiac enzymes until they begin to fall - Cannot give Heparin due to GI bleed Coronary Artery Disease - Hold ASA and Plavix in light of possible active GI bleeding - Continue Rosuvastatin Gastrointestinal GI Bleed - Patient NPO except medications - Patient complaining of intermittent nausea with bowel prep; unable to finish bowel prep prior to this morning - Pantoprazole 40 mg BID - GI consulted Endoscopy will be deferred until tomorrow as patient still attempting to complete bowel prep and has not been NPO for at least 2 hours Spoke with GI service; patient to have clear liquid diet and resume NPO after midnight except meds - H&H stable in the 9s this morning; will continue to trend q 6 hourly GI Prophylaxis: Protonix as above Bowel Regimen: Miralax PRN for constipation Genitourinary ESRD - Cr 4.6 (baseline ranges 2-3) - Patient notes she gets dialysis M, W, F - Nephrology consult ordered; will advise patient did receive contrast Electrolytes - Na 139, K 4.5, Cl 102, CO2 27, BUN 49, - Juanjose 8.3, Mg 2.8 Endocrine Type 2 Diabetes Mellitus - Patient on Aspart SSI; Goal 140-180; CF 30 - BSGs within range Heme/ID - Tmax 37.6; WBC 8 Acute Blood Loss secondary to GI bleed - Hb stable compared to baseline 9-10 - H&H q 6 hours DVT Prophylaxis - Pharmacologically contra-indicated due to active GI bleeding - SCDs ordered for patient; patient refusing to wear them Disposition - ICU pending EGD and colonoscopy evaluation - OT and PT evaluate and treat Code Status - Level I Resuscitation Resident Physician Supervision Note: Dr. Dr. Anne was resident physician during care of patient. I separately evaluated patient and did history and exam. I discussed the case with the resident and generally agree with the findings and plan. Patient was unable to complete bowel prep in entirety, we'll obtain EGD and colonoscopy tomorrow hemodynamically stable, troponin leak likely secondary to that initial anemia and end-stage renal disease. Denies chest pain, no EKG changes suggestive of active cardiac ischemia. I have personally spent 35 minutes of critical care time in the direct management of this patient. This is a life/limb threatening event. This includes time spent evaluating patient, direct bedside care, chart review, placing orders, interpretation of diagnostic studies, discussion with consultants, patient, and family members, as well as other required patient management activities. This time is exclusive of all separately billable procedures, and teaching time and separate from and in addition to any other critical care service time. Documented By: Elio Shippert, DO Data Medications: Current Inpatient Medications Medications (Trade) Dose Ordered Sig/Janeth Route Start Time Stop Time Status Last Admin Dose Admin Acetaminophen (Tylenol Tab) 650 mg Q4H PRN PO 09/04/16 13:15 10/04/16 13:14 Al Hydrox/Mg Hydrox/Simethicone (Maalox Max Susp) 15 ml Q4H PRN PO 09/04/16 13:15 10/04/16 13:14 Magnesium Hydroxide (Milk Of Magnesia Susp) 30 ml Q12H PRN PO 09/04/16 13:15 10/04/16 13:14 Polyethylene (Miralax Powder Packet) 17 gm DAILY PRN PO 09/04/16 13:15 10/04/16 13:14 Insulin Aspart (novoLOG ASPART) SLIDING SCALE If C... ACHS SC 09/04/16 16:00 10/04/16 15:59 Glucose (Glucose 40% Gel) 15-30 GRAMS 15 GRAMS... UD PRN PO 09/04/16 13:15 10/04/16 13:14 Glucose (Glucose Chew Tab) 4-8 Tablets 4 Tabl... UD PRN PO 09/04/16 13:15 10/04/16 13:14 Dextrose (Dextrose 50% 50ML Syringe) 25-50ML OF 50% DW IV FOR... UD PRN IV 09/04/16 13:15 10/04/16 13:14 Glucagon (Glucagon Inj) 1 mg UD PRN SQ 09/04/16 13:15 10/04/16 13:14 Albuterol (Ventolin Hfa Inhaler) 2 puffs QID PRN INH 09/04/16 13:15 10/04/16 13:14 Amiodarone HCl (Cordarone Tab) 200 mg DAILY PO 09/05/16 09:00 10/05/16 08:59 09/05/16 09:55 200 MG Calcium Acetate (Phoslo Cap) 667 mg TIDM PO 09/04/16 17:28 10/04/16 17:59 Albuterol/ Ipratropium (Duoneb) 3 ml Q12R INH 09/04/16 20:00 10/04/16 19:59 09/05/16 07:12 3 ML Nitroglycerin (Nitrostat Tab) 0.4 mg UD PRN UT 09/04/16 13:15 10/04/16 13:14 Potassium Chloride (Klor-Con Tab) 20 meq DAILY PO 09/05/16 09:00 10/05/16 08:59 Rosuvastatin Calcium 10 mg 10 mg HS PO 09/04/16 21:00 10/04/16 20:59 09/04/16 20:08 10 MG Pantoprazole Sodium/Syringe (Protonix Inj/ Syringe) 10 ml @ 5 mls/min DAILY@,21 IV 09/04/16 21:00 10/04/16 20:59 09/05/16 08:26 5 MLS/MIN Ioversol 111 ml 111 ml UD PRN IV 09/04/16 21:00 09/08/16 20:59 Prochlorperazine Edisylate/Syringe (Compazine Inj/ Syringe) 5 ml @ 1.667 mls/ min Q6H PRN IV 09/05/16 09:00 10/05/16 08:59 09/05/16 10:08 1.667 MLS/MIN I & O: 24-Hour Column 09/05/16 08:00 Intake Total 3992 ml Output Total 250 ml Balance 3742 ml Vital Signs: Date Time Temp Pulse Resp B/P Pulse Ox O2 Delivery O2 Flow Rate FiO2 09/05/16 10:00 68 22 119/50 95 Room Air 09/05/16 08:00 100 Nasal Cannula 2.0 09/05/16 08:00 36.4 68 22 111/45 100 Nasal Cannula 2.0 09/05/16 07:12 61 20 100 Nasal Cannula 3.0 09/05/16 06:00 61 18 129/55 100 Nasal Cannula 2.0 09/05/16 04:00 Nasal Cannula 2.0 09/05/16 04:00 36.8 61 20 128/51 100 Nasal Cannula 2.0 09/05/16 02:00 63 20 122/40 99 Nasal Cannula 2.0 09/05/16 00:01 36.8 65 12 126/53 99 Nasal Cannula 2.0 09/04/16 23:59 Nasal Cannula 2.0 09/04/16 22:00 65 14 125/53 97 Nasal Cannula 2.0 09/04/16 20:00 Nasal Cannula 2.0 09/04/16 20:00 36.5 66 20 117/47 100 Nasal Cannula 2.0 09/04/16 19:43 64 20 100 Nasal Cannula 3.0 09/04/16 18:43 66 22 118/45 100 Nasal Cannula 2.0 09/04/16 18:00 37.6 68 20 109/55 100 Nasal Cannula 2.0 09/04/16 17:09 65 18 117/44 99 2.0 09/04/16 16:47 71 21 118/45 99 2.0 09/04/16 16:04 36.8 72 23 120/49 99 2.0 09/04/16 15:35 36.5 73 25 132/58 95 2.0 09/04/16 15:24 77 16 138/76 98 2.0 09/04/16 15:19 36.8 76 20 144/88 98 09/04/16 15:16 84 20 164/69 98 09/04/16 15:08 36.9 09/04/16 15:05 76 28 164/69 97 2.0 09/04/16 14:50 82 30 175/63 100 10.0 09/04/16 14:31 36.7 70 21 140/61 100 2.0 09/04/16 14:03 36.3 65 22 114/44 100 2.0 09/04/16 13:49 64 22 121/52 100 2.0 09/04/16 13:49 36.4 64 22 121/52 100 2.0 09/04/16 13:46 62 09/04/16 13:35 36.6 66 18 104/44 100 2.0 09/04/16 13:29 36.7 62 21 83/42 100 2.0 17 13:29 36.6 62 21 83/42 100 2.0 09/04/16 13:15 36.6 68 22 81/46 100 2.0 09/04/16 13:02 36.5 67 25 105/44 100 2.0 09/04/16 12:31 68 18 92/46 100 3.0 09/04/16 12:30 67 31 100 09/04/16 12:28 92/46 09/04/16 12:25 66 24 100 09/04/16 12:20 66 26 100 09/04/16 12:15 68 30 100 09/04/16 12:10 70 25 100 09/04/16 12:09 36.5 67 18 103/41 100 3.0 09/04/16 12:08 103/41 09/04/16 12:05 68 27 100 09/04/16 12:00 70 26 100 09/04/16 11:59 108/48 09/04/16 11:55 68 30 100 09/04/16 11:50 67 30 100 09/04/16 11:45 70 32 100 09/04/16 11:40 68 30 100 09/04/16 11:35 67 23 100 09/04/16 11:33 68 132/54 100 Nasal Cannula 2.0 09/04/16 11:30 68 32 100 09/04/16 11:28 132/54 09/04/16 11:25 68 24 100 09/04/16 11:20 65 29 100 09/04/16 11:15 66 31 99 09/04/16 11:10 67 27 100 09/04/16 11:10 100 Nasal Cannula 2.0 09/04/16 11:05 64 29 100 09/04/16 11:00 65 35 100 09/04/16 10:59 110/70 09/04/16 10:55 63 25 100 09/04/16 10:55 66 18 114/51 100 Nasal Cannula 2.0 Laboratory Results: Last 24 Hours Test 09/04/16 17:22 09/04/16 17:53 09/04/16 18:19 09/04/16 21:15 Urine Color DK YELLOW Urine Appearance CLEAR Urine pH 6.5 Urine Specific [place] 1.021 Urine Protein 1+ Urine Glucose (UA) NEG Urine Ketones NEG Urine Occult Blood NEG Urine Nitrite NEG Urine Bilirubin NEG Urine Urobilinogen NEG Urine Leukocyte Esterase NEG Urine WBC (Auto) 1-5 /hpf Urine RBC (Auto) 0-4 /hpf Urine Hyaline Casts (Auto) 10-30 /lpf Urine Epithelial Cells (Auto) >30 /lpf Urine Bacteria (Auto) NEG Urine Renal Epithelial Cells 10-20 /lpf Urine Pathogenic Casts 0-3 GRANULAR CASTS /lpf Bedside Glucose 154 mg/dl 147 mg/dl Hemoglobin 10.2 g/dL Hematocrit 30.6 % Total Creatine Kinase 26 U/L Creatine Kinase MB 1.0 ng/ml Creatine Kinase MB Ratio 3.8 Troponin I 0.046 ng/ml Test 09/04/16 22:30 09/05/16 05:10 09/05/16 05:14 09/05/16 10:20 Hemoglobin 9.8 g/dL 9.7 g/dL 9.9 g/dL Hematocrit 29.4 % 29.6 % 29.4 % Total Creatine Kinase 30 U/L 32 U/L Creatine Kinase MB 0.7 ng/ml 1.0 ng/ml Creatine Kinase MB Ratio 2.3 3.1 Troponin I 0.058 ng/ml 0.057 ng/ml White Blood Count 8.77 K/uL Red Blood Count 3.30 M/uL Mean Corpuscular Volume 89.7 fL Mean Corpuscular Hemoglobin 29.4 pg Mean Corpuscular Hemoglobin Concent 32.8 g/dl Platelet Count 141 K/uL Mean Platelet Volume 10.7 fL Neutrophils (%) (Auto) 71.1 % Lymphocytes (%) (Auto) 15.2 % Monocytes (%) (Auto) 10.3 % Eosinophils (%) (Auto) 2.3 % Basophils (%) (Auto) 0.6 % Neutrophils # (Auto) 6.25 K/uL Lymphocytes # (Auto) 1.33 K/uL Monocytes # (Auto) 0.90 K/uL Eosinophils # (Auto) 0.20 K/uL Basophils # (Auto) 0.05 K/uL RDW Standard Deviation 60.8 fL RDW Coefficient of Variation 19.1 % Immature Granulocyte % (Auto) 0.5 % Immature Granulocyte # (Auto) 0.04 K/uL Sodium Level 139 mmol/L Potassium Level 4.5 mmol/L Chloride Level 102 mmol/L Carbon Dioxide Level 27 mmol/L Anion Gap 10.0 mmol/L Blood Urea Nitrogen 49 mg/dl Creatinine 4.60 mg/dl Est Creatinine Clear Calc Drug Dose 9.6 ml/min Estimated GFR () 9.4 Estimated GFR (Non- 8.1 BUN/Creatinine Ratio 10.7 Random Glucose 113 mg/dl Calcium Level 8.3 mg/dl Magnesium Level 2.8 mg/dl Bedside Glucose 124 mg/dl
--- NOTE | 2016-09-05 12:32 | Nephrology Consultation ---
Nephrology Consultation Date & Providers Date of Consultation: Sep 05, 2016. Primary Care Provider: Vipul Hernandez M.D. Referring Provider: Reason for Consultation To provide inpatient HD for this patient with ESRD admitted with GI bleeding and assist with medical management History of Present Illness Ms. Rahman is an 86-year-old white female who is seen at the request of Dr. Dupont to provide inpatient hemodialysis and assist with medical management. Medical records in the hospital EMR were reviewed today and are summarized as follows: Ms. Rahman has ESRD due to diabetic nephropathy and cardiorenal syndrome. Her baseline creatinine had been 2.4 w/ EGFR 21 cc/min. In 05/19 she presented with CHF. Diuretic therapy resulted in worsening kidney function and she required initiation of HD. The patient currently dialyzes MWF at [facility] ED. Her PMH is also significant for long-standing AODM, HTN, PVD w/ bilateral carotid arterial disease, ASCVD s/p CABG x 4 1996 and OA. In 1996 patient suffered an episode of angina. Cardiac catheterization revealed RCA stenosis. Patient required angioplasty with stenting. Post procedure she developed a pseudoaneurysm with a large right groin hematoma which required emergency surgical repair. Due to her coronary artery disease Ms. Rahman has been on chronic ASA and Plavix therapy. She was in her baseline state of health until the evening of 09/03/16. She developed diarrhea with BRBPR. This was persistent and developed into alexys melena. The patient was admitted to the hospital for evaluation of GI bleeding. She has been transfused with 4 u PRBC since admission. She is scheduled for a colonoscopy later today. Past Medical/Surgical History Medical: # ESRD on HD MWF at [facility] ED # ASCVD s/p CABG x 4 1996 # Cardiac cath 2006 complicated by pseudoaneurysm of the right femoral artery requiring emergency surgical repair # AODM # HTN # PVD - carotid stenosis # h/o nephrolithiasis # Cholelithiasis # OA Surgical: # R IJ THC insertion # AVF creation # R femoral artery pseudoaneurysm repair Allergies Coded Allergies: No Known Allergies (Unverified , 09/04/16) Inpatient Medications Current Inpatient Medications Medications (Trade) Dose Ordered Sig/Janeth Route Start Time Stop Time Status Last Admin Dose Admin Acetaminophen (Tylenol Tab) 650 mg Q4H PRN PO 09/04/16 13:15 10/04/16 13:14 Al Hydrox/Mg Hydrox/Simethicone (Maalox Max Susp) 15 ml Q4H PRN PO 09/04/16 13:15 10/04/16 13:14 Magnesium Hydroxide (Milk Of Magnesia Susp) 30 ml Q12H PRN PO 09/04/16 13:15 10/04/16 13:14 Polyethylene (Miralax Powder Packet) 17 gm DAILY PRN PO 09/04/16 13:15 10/04/16 13:14 Insulin Aspart (novoLOG ASPART) SLIDING SCALE If C... ACHS SC 09/04/16 16:00 10/04/16 15:59 Glucose (Glucose 40% Gel) 15-30 GRAMS 15 GRAMS... UD PRN PO 09/04/16 13:15 10/04/16 13:14 Glucose (Glucose Chew Tab) 4-8 Tablets 4 Tabl... UD PRN PO 09/04/16 13:15 10/04/16 13:14 Dextrose (Dextrose 50% 50ML Syringe) 25-50ML OF 50% DW IV FOR... UD PRN IV 09/04/16 13:15 10/04/16 13:14 Glucagon (Glucagon Inj) 1 mg UD PRN SQ 09/04/16 13:15 10/04/16 13:14 Albuterol (Ventolin Hfa Inhaler) 2 puffs QID PRN INH 09/04/16 13:15 10/04/16 13:14 Amiodarone HCl (Cordarone Tab) 200 mg DAILY PO 09/05/16 09:00 10/05/16 08:59 09/05/16 09:55 200 MG Calcium Acetate (Phoslo Cap) 667 mg TIDM PO 09/04/16 17:28 10/04/16 17:59 Albuterol/ Ipratropium (Duoneb) 3 ml Q12R INH 09/04/16 20:00 10/04/16 19:59 09/05/16 07:12 3 ML Nitroglycerin (Nitrostat Tab) 0.4 mg UD PRN UT 09/04/16 13:15 10/04/16 13:14 Potassium Chloride (Klor-Con Tab) 20 meq DAILY PO 09/05/16 09:00 10/05/16 08:59 Rosuvastatin Calcium 10 mg 10 mg HS PO 09/04/16 21:00 10/04/16 20:59 09/04/16 20:08 10 MG Pantoprazole Sodium/Syringe (Protonix Inj/ Syringe) 10 ml @ 5 mls/min DAILY@09,21 IV 09/04/16 21:00 10/04/16 20:59 09/05/16 08:26 5 MLS/MIN Ioversol 111 ml 111 ml UD PRN IV 09/04/16 21:00 09/08/16 20:59 Prochlorperazine Edisylate/Syringe (Compazine Inj/ Syringe) 5 ml @ 1.667 mls/ min Q6H PRN IV 09/05/16 09:00 10/05/16 08:59 09/05/16 10:08 1.667 MLS/MIN Family History Asthma Cancer SISTER (Breast cancer) Chronic kidney disease MOTHER Diabetes mellitus FATHER Heart disease FATHER Hypertension FATHER MOTHER Kidney disease Kidney stones Stroke Mother - CKD Social History Smoking Status: Never Smoker Smokeless Tobacco Use: No Alcohol Use: none Drug Use: none Marital Status: Housing Status: lives with family (with granddaughter) Occupation: retired . Retired. Never a smoker. Review of Systems Constitutional: No fever Respiratory: No shortness of breath Cardiovascular: No chest pain Abdomen: + GI bleeding, No pain A complete review of systems was performed. Pertinent positives are noted above. All other systems are negative. Physical Exam Date Time Temp Pulse Resp B/P Pulse Ox O2 Delivery O2 Flow Rate FiO2 09/05/16 12:00 67 16 111/56 96 Room Air 09/05/16 11:30 95 Room Air 09/05/16 10:00 68 22 119/50 95 Room Air 09/05/16 08:00 100 Nasal Cannula 2.0 09/05/16 08:00 36.4 68 22 111/45 100 Nasal Cannula 2.0 09/05/16 07:12 61 20 100 Nasal Cannula 3.0 09/05/16 06:00 61 18 129/55 100 Nasal Cannula 2.0 09/05/16 04:00 Nasal Cannula 2.0 09/05/16 04:00 36.8 61 20 128/51 100 Nasal Cannula 2.0 09/05/16 02:00 63 20 122/40 99 Nasal Cannula 2.0 09/05/16 00:01 36.8 65 12 126/53 99 Nasal Cannula 2.0 09/04/16 23:59 Nasal Cannula 2.0 09/04/16 22:00 65 14 125/53 97 Nasal Cannula 2.0 09/04/16 20:00 Nasal Cannula 2.0 09/04/16 20:00 36.5 66 20 117/47 100 Nasal Cannula 2.0 09/04/16 19:43 64 20 100 Nasal Cannula 3.0 09/04/16 18:43 66 22 118/45 100 Nasal Cannula 2.0 09/04/16 18:00 37.6 68 20 109/55 100 Nasal Cannula 2.0 09/04/16 17:09 65 18 117/44 99 2.0 09/04/16 16:47 71 21 118/45 99 2.0 09/04/16 16:04 36.8 72 23 120/49 99 2.0 09/04/16 15:35 36.5 73 25 132/58 95 2.0 09/04/16 15:24 77 16 138/76 98 2.0 09/04/16 15:19 36.8 76 20 144/88 98 09/04/16 15:16 84 20 164/69 98 09/04/16 15:08 36.9 09/04/16 15:05 76 28 164/69 97 2.0 09/04/16 14:50 82 30 175/63 100 10.0 09/04/16 14:31 36.7 70 21 140/61 100 2.0 09/04/16 14:03 36.3 65 22 114/44 100 2.0 09/04/16 13:49 64 22 121/52 100 2.0 09/04/16 13:49 36.4 64 22 121/52 100 2.0 09/04/16 13:46 62 09/04/16 13:35 36.6 66 18 104/44 100 2.0 09/04/16 13:29 36.7 62 21 83/42 100 2.0 17 13:29 36.6 62 21 83/42 100 2.0 09/04/16 13:15 36.6 68 22 81/46 100 2.0 09/04/16 13:02 36.5 67 25 105/44 100 2.0 09/04/16 12:31 68 18 92/46 100 3.0 09/04/16 12:30 67 31 100 09/04/16 12:28 92/46 General Appearance: no apparent distress Head: normocephalic, atraumatic Eyes: PERRL, EOMI Neck: no adenopathy, + pertinent finding (R IJ CVC and THC in place) Respiratory/Chest: + crackles (at bases bilaterally) Cardiovascular: regular rate, rhythm Abdomen/GI: normal bowel sounds, non tender, soft Extremities/Musculoskelatal: no pedal edema, + pertinent finding (left upper arm AVF + bruit. Venous limb is deep and requires transposition) Neurologic/Psych: alert, oriented x 3 Laboratory Results Last 24 Hours Test 09/04/16 17:22 09/04/16 17:53 09/04/16 18:19 09/04/16 21:15 Urine Color DK YELLOW Urine Appearance CLEAR Urine pH 6.5 Urine Specific [place] 1.021 Urine Protein 1+ Urine Glucose (UA) NEG Urine Ketones NEG Urine Occult Blood NEG Urine Nitrite NEG Urine Bilirubin NEG Urine Urobilinogen NEG Urine Leukocyte Esterase NEG Urine WBC (Auto) 1-5 /hpf Urine RBC (Auto) 0-4 /hpf Urine Hyaline Casts (Auto) 10-30 /lpf Urine Epithelial Cells (Auto) >30 /lpf Urine Bacteria (Auto) NEG Urine Renal Epithelial Cells 10-20 /lpf Urine Pathogenic Casts 0-3 GRANULAR CASTS /lpf Bedside Glucose 154 mg/dl 147 mg/dl Hemoglobin 10.2 g/dL Hematocrit 30.6 % Total Creatine Kinase 26 U/L Creatine Kinase MB 1.0 ng/ml Creatine Kinase MB Ratio 3.8 Troponin I 0.046 ng/ml Test 09/04/16 22:30 09/05/16 05:10 09/05/16 05:14 09/05/16 10:20 Hemoglobin 9.8 g/dL 9.7 g/dL 9.9 g/dL Hematocrit 29.4 % 29.6 % 29.4 % Total Creatine Kinase 30 U/L 32 U/L Creatine Kinase MB 0.7 ng/ml 1.0 ng/ml Creatine Kinase MB Ratio 2.3 3.1 Troponin I 0.058 ng/ml 0.057 ng/ml White Blood Count 8.77 K/uL Red Blood Count 3.30 M/uL Mean Corpuscular Volume 89.7 fL Mean Corpuscular Hemoglobin 29.4 pg Mean Corpuscular Hemoglobin Concent 32.8 g/dl Platelet Count 141 K/uL Mean Platelet Volume 10.7 fL Neutrophils (%) (Auto) 71.1 % Lymphocytes (%) (Auto) 15.2 % Monocytes (%) (Auto) 10.3 % Eosinophils (%) (Auto) 2.3 % Basophils (%) (Auto) 0.6 % Neutrophils # (Auto) 6.25 K/uL Lymphocytes # (Auto) 1.33 K/uL Monocytes # (Auto) 0.90 K/uL Eosinophils # (Auto) 0.20 K/uL Basophils # (Auto) 0.05 K/uL RDW Standard Deviation 60.8 fL RDW Coefficient of Variation 19.1 % Immature Granulocyte % (Auto) 0.5 % Immature Granulocyte # (Auto) 0.04 K/uL Sodium Level 139 mmol/L Potassium Level 4.5 mmol/L Chloride Level 102 mmol/L Carbon Dioxide Level 27 mmol/L Anion Gap 10.0 mmol/L Blood Urea Nitrogen 49 mg/dl Creatinine 4.60 mg/dl Est Creatinine Clear Calc Drug Dose 9.6 ml/min Estimated GFR () 9.4 Estimated GFR (Non- 8.1 BUN/Creatinine Ratio 10.7 Random Glucose 113 mg/dl Calcium Level 8.3 mg/dl Magnesium Level 2.8 mg/dl Bedside Glucose 124 mg/dl Impression Patient admitted for evaluation of GI bleeding. She has ASCVD and has been on ASA & Plavix chronically as an outpatient. She has required transfusion w/ 4 U PRBC since admission. She currently denies angina or dyspnea. PMH - ESRD on HD MWF at [facility] ED, ASCVD s/p CABG x 4 1996, cardiac cath 2006 complicated by pseudoaneurysm of the right femoral artery requiring emergency surgical repair, AODM, HTN, PVD w/ carotid stenosis, h/o nephrolithiasis, cholelithiasis, OA Recommendations END STAGE RENAL DISEASE: -- CXR film reviewed today. Patient has mild congestive changes. Her O2 sat is 93% on 2 L / min NC. She is in no respiratory distress. IVF have been stopped -- Electrolyte balance is acceptable. No acute indication for HD today. -- Will schedule heparin free HD for am. -- Monitor serial PRP ANEMIA: -- Patient has been transfused 4 U PRBC since admission. Hgb is now stable at ~ 9.9. Continue to monitor -- Await results of colonoscopy and GI recommendations -- h/o ASA & plavix use. May require EGD -- Continue PPI therapy ASCVD: -- Patient denies angina -- Mild elevation in troponin -- Recommend consultation w/ cardiology
[2016-09-05] MEDS ORDERED: EPOETIN ALFA 10,000 UNITS/ML VIAL IV. SCH (13:30)
--- NOTE | 2016-09-05 14:31 | Hospitalist Progress Note ---
Hospitalist Progress Note Date of Service Sep 05, 2016. Subjective Pt evaluation today including: conversation w/ patient, conversation w/ family (daughter at bedside), physical exam, chart review, lab review, review of studies, review of inpatient medication list Pain: None PO Intake: NPO at time of exam Voiding: garibay catheter in place Patient reported feeling well at the time of my examination. She complained of weakness and fatigue. She states that the bleeding is stopped, and she is just having liquid stools from the bowel prep now. She denied any complaints at the time of my examination; however, upon review of nursing notes, the patient did have some nausea and clear liquid emesis shortly after I examined her, which resolved with Compazine. Garibay catheter in place. Patient had been NPO at the time for colonoscopy later today which has since been pushed back to tomorrow. The patient denies fevers, chills, sweats, chest pain, palpitations, claudication, cough, wheezing, shortness of breath, nausea, vomiting, abdominal pain, dysuria, hematuria, urinary retention, paralysis, numbness and tingling. Additional Comments: See HPI for pertinent positives and negatives. All other systems reviewed and negative. Objective Vital Signs Date Time Temp Pulse Resp B/P Pulse Ox O2 Delivery O2 Flow Rate FiO2 09/05/16 13:00 36.4 69 19 120/54 96 Room Air 09/05/16 12:00 67 16 111/56 96 Room Air 09/05/16 11:30 95 Room Air 09/05/16 10:00 68 22 119/50 95 Room Air 09/05/16 08:00 100 Nasal Cannula 2.0 09/05/16 08:00 36.4 68 22 111/45 100 Nasal Cannula 2.0 09/05/16 07:12 61 20 100 Nasal Cannula 3.0 09/05/16 06:00 61 18 129/55 100 Nasal Cannula 2.0 09/05/16 04:00 Nasal Cannula 2.0 09/05/16 04:00 36.8 61 20 128/51 100 Nasal Cannula 2.0 09/05/16 02:00 63 20 122/40 99 Nasal Cannula 2.0 09/05/16 00:01 36.8 65 12 126/53 99 Nasal Cannula 2.0 09/04/16 23:59 Nasal Cannula 2.0 09/04/16 22:00 65 14 125/53 97 Nasal Cannula 2.0 09/04/16 20:00 Nasal Cannula 2.0 09/04/16 20:00 36.5 66 20 117/47 100 Nasal Cannula 2.0 09/04/16 19:43 64 20 100 Nasal Cannula 3.0 09/04/16 18:43 66 22 118/45 100 Nasal Cannula 2.0 09/04/16 18:00 37.6 68 20 109/55 100 Nasal Cannula 2.0 09/04/16 17:09 65 18 117/44 99 2.0 09/04/16 16:47 71 21 118/45 99 2.0 09/04/16 16:04 36.8 72 23 120/49 99 2.0 09/04/16 15:35 36.5 73 25 132/58 95 2.0 09/04/16 15:24 77 16 138/76 98 2.0 09/04/16 15:19 36.8 76 20 144/88 98 09/04/16 15:16 84 20 164/69 98 09/04/16 15:08 36.9 09/04/16 15:05 76 28 164/69 97 2.0 09/04/16 14:50 82 30 175/63 100 10.0 09/04/16 14:31 36.7 70 21 140/61 100 2.0 Physical Exam General Appearance: WD/WN, no apparent distress Eyes: normal inspection, PERRL, EOMI ENT: normal ENT inspection, hearing grossly normal, pharynx normal Neck: supple, no JVD, trachea midline, + pertinent finding (central line in place) Respiratory/Chest: normal breath sounds, no respiratory distress, no accessory muscle use, + crackles (bases bilaterally) Cardiovascular: regular rate, rhythm, no gallop, no murmur Abdomen: non tender, soft, + pertinent finding (hyperactive bowel sounds) Extremities: normal inspection, + swelling (1+ pitting edema lower extremities bilaterally), + pertinent finding (legs mildly TTP) Neurologic/Psychiatric: alert, normal mood/affect, oriented x 3 Skin: warm/dry, no rash, + pallor Laboratory Results Last 24 Hours Test 09/04/16 17:22 09/04/16 17:53 09/04/16 18:19 09/04/16 21:15 Urine Color DK YELLOW Urine Appearance CLEAR Urine pH 6.5 Urine Specific [place] 1.021 Urine Protein 1+ Urine Glucose (UA) NEG Urine Ketones NEG Urine Occult Blood NEG Urine Nitrite NEG Urine Bilirubin NEG Urine Urobilinogen NEG Urine Leukocyte Esterase NEG Urine WBC (Auto) 1-5 /hpf Urine RBC (Auto) 0-4 /hpf Urine Hyaline Casts (Auto) 10-30 /lpf Urine Epithelial Cells (Auto) >30 /lpf Urine Bacteria (Auto) NEG Urine Renal Epithelial Cells 10-20 /lpf Urine Pathogenic Casts 0-3 GRANULAR CASTS /lpf Bedside Glucose 154 mg/dl 147 mg/dl Hemoglobin 10.2 g/dL Hematocrit 30.6 % Total Creatine Kinase 26 U/L Creatine Kinase MB 1.0 ng/ml Creatine Kinase MB Ratio 3.8 Troponin I 0.046 ng/ml Test 09/04/16 22:30 09/05/16 05:10 09/05/16 05:14 09/05/16 10:20 Hemoglobin 9.8 g/dL 9.7 g/dL 9.9 g/dL Hematocrit 29.4 % 29.6 % 29.4 % Total Creatine Kinase 30 U/L 32 U/L Creatine Kinase MB 0.7 ng/ml 1.0 ng/ml Creatine Kinase MB Ratio 2.3 3.1 Troponin I 0.058 ng/ml 0.057 ng/ml White Blood Count 8.77 K/uL Red Blood Count 3.30 M/uL Mean Corpuscular Volume 89.7 fL Mean Corpuscular Hemoglobin 29.4 pg Mean Corpuscular Hemoglobin Concent 32.8 g/dl Platelet Count 141 K/uL Mean Platelet Volume 10.7 fL Neutrophils (%) (Auto) 71.1 % Lymphocytes (%) (Auto) 15.2 % Monocytes (%) (Auto) 10.3 % Eosinophils (%) (Auto) 2.3 % Basophils (%) (Auto) 0.6 % Neutrophils # (Auto) 6.25 K/uL Lymphocytes # (Auto) 1.33 K/uL Monocytes # (Auto) 0.90 K/uL Eosinophils # (Auto) 0.20 K/uL Basophils # (Auto) 0.05 K/uL RDW Standard Deviation 60.8 fL RDW Coefficient of Variation 19.1 % Immature Granulocyte % (Auto) 0.5 % Immature Granulocyte # (Auto) 0.04 K/uL Sodium Level 139 mmol/L Potassium Level 4.5 mmol/L Chloride Level 102 mmol/L Carbon Dioxide Level 27 mmol/L Anion Gap 10.0 mmol/L Blood Urea Nitrogen 49 mg/dl Creatinine 4.60 mg/dl Est Creatinine Clear Calc Drug Dose 9.6 ml/min Estimated GFR () 9.4 Estimated GFR (Non- 8.1 BUN/Creatinine Ratio 10.7 Random Glucose 113 mg/dl Calcium Level 8.3 mg/dl Magnesium Level 2.8 mg/dl Bedside Glucose 124 mg/dl Diagnostic Results Reviewed the following studies and agree with interpretation as follows: Patient Name: ANANTH SIMPSON Unit Number: [id number] Dictated: 09/05/16947 Transcribed: 09/05/16947 MS Printed Date/Time: [~ rep prt dt]/[~ rep prt tm] [~ rep ct labl] - [~ rep ct ivnm] [facility] [place] [address] Dictated: 09/05/16947 Transcribed: 09/05/16947 MS Printed Date/Time: [~ rep prt dt]/[~ rep prt tm] [~ rep ct labl] - [~ rep ct ivnm] Patient: ANANTH SIMPSON Address1: [address] [place] [address] Rec: [id number] Address2: Acct ID: [id number] [facility] Zip: [place] [address] Date: 1930 Sex: F Room/Bed: [facility] Ref Phy: Cooper Hart M.D. SC: KEVIN Att Phy: Max Desir MD, PhD Report #: [id number] [place] Phy: Vipul Hernandez M.D. Test: CXR1P Admit Phy: Max Desir MD, PhD Administrative Staff Supervisor: JOHN Interpreting Phy: Raulito Acosta M.D. Diagnosis: RECTAL BLEEDING Ordering Phy: Ashley Page PA-C Service Date: 09/05/16 Admit Date: 09/04/1700/02/17 MNE: PWRSCRIBE CONF: DICTATED BY: Raulito Acosta M.D.]] CC: Vipul Hernandez M.D. Hester, Christopher E., M.D. Lin, Daniel Y., MD, PhD Ashley Page PA-C Endcc: [~ rep ct add3]] CHEST ONE VIEW PORTABLE CLINICAL HISTORY: Acute Reps Failure dyspnea COMPARISON STUDY: 09/04/2016 FINDINGS: PermCath in the superior vena cava. Nasogastric tube within the stomach. Increased prominence of pulmonary vasculature. Moderate cardiac megaly unchanged. Trace pleural fluid both lateral costophrenic angles. Hilar fullness bilaterally IMPRESSION: Slightly progressive components radiographically of congestive failure/pulmonary edema. Various tubes and lines in good position as noted Electronically signed by: Raulito Acosta M.D. 09/05/2016 9:50 AM The status of this report is Signed. Draft = Not yet reviewed or approved by Radiologist. Signed = Reviewed and approved by Radiologist. <AttendingPhy>Max Desir MD, PhD</AttendingPhy> <FamilyPhy>Cooper Hart M.D.</FamilyPhy> <PrimaryPhy>Vipul Hernandez M.D.</PrimaryPhy> <UnitNumber>[id number]</UnitNumber> <VisitNumber>[id number]</VisitNumber> < PatientName>ANANTH SIMPSON</PatientName> <DateOfBirth>1930</DateOfBirth> < Location>C.MSICU</Location> <ServiceDate>09/04/16</ServiceDate> <MNE>ESINDI</MNE > <OrderingPhy>Ashley Page PA-C</OrderingPhy> <OrderingPhyMNE>f rep ord dr bae</OrderingPhyMNE> <DictatingPhyMNE>f rep dict dr bae</DictatingPhyMNE> < CCListMNE>f rep ct mne</CCListMNE> <AdmittingPhyMNE>f pt admit dr bae</ AdmittingPhyMNE> <AttendingPhyMNE>f pt attend dr bae</AttendingPhyMNE> <ConsultingPhyMNE>f pt consult dr bae</ConsultingPhyMNE> <FamilyPhyMNE>f pt fam dr bae</FamilyPhyMNE> <OtherPhyMNE>f pt other dr bae</OtherPhyMNE> < PrimaryPhyMNE>f pt prim care dr bae</PrimaryPhyMNE> <ReferringPhyMNE>f pt referring dr bae</ReferringPhyMNE> Patient Name: ANANTH SIMPSON Unit Number: [id number] Dictated: 09/04/162105 Transcribed: 09/04/162105 MS Printed Date/Time: [~ rep prt dt]/[~ rep prt tm] [~ rep ct labl] - [~ rep ct ivnm] [facility] Radiology Department [place] [id number] Dictated: 09/04/162105 Transcribed: 09/04/162105 MS Printed Date/Time: [~ rep prt dt]/[~ rep prt tm] [~ rep ct labl] - [~ rep ct ivnm] Patient: ANANTH SIMPSON Address1: [address] [place] [address] Rec: [id number] Address2: Acct ID: [id number] [facility] Zip: [place] [address] Date: 1930 Sex: F Room/Bed: [facility] [place]-1 Ref Phy: Cooper Hart M.D. SC: KEVIN Att Phy: Max Desir MD, PhD Report #: [id number] [place] Phy: Vipul Hernandez M.D. Test: APW Admit Phy: Max Desir MD, PhD Administrative Staff Supervisor: TREMAINE Interpreting Phy: Raulito Acosta M.D. Diagnosis: RECTAL BLEEDING Ordering Phy: Leigh Ann Soni Service Date: 09/04/16 Admit Date: 09/04/1700/02/17 MNE: PWRSCRIBE CONF: DICTATED BY: Raulito Acosta M.D.]] CC: Vipul Hernandez M.D. Hester, Christopher E., M.D. Lin, Daniel Y., MD, PhD Leigh Ann Soni PA Endcc: [~ rep ct add3]] ABDOMEN AND PELVIS CT WITH IV AND ORAL CONTRAST CT DOSE: 501.25 mGy.cm HISTORY: Pain Rectal bleeding TECHNIQUE: Multiaxial CT images of the abdomen and pelvis were performed following the use of intravenous and oral contrast. COMPARISON STUDY: None. FINDINGS: Small bilateral pleural effusions. Mild bibasilar atelectasis. Moderate cardiomegaly. Mild fatty infiltration of liver. Small hypervascular nodule inferior aspect right hepatic lobe. This may represent a small hemangioma. Atrophy of the pancreas. Cortical scarring and cortical thinning of the kidneys bilaterally. No evidence for hydronephrosis. Postoperative changes to the lumbar spine. Mild body wall anasarca. Nonobstructive bowel pattern. Garibay catheter is in position within the bladder. Right hip arthroplasty. Nonobstructive bowel pattern. Postoperative changes to the lumbar spine. IMPRESSION: 1. Small bilateral pleural effusions with bibasilar atelectasis. 2. Moderate body wall anasarca. 3. No acute process of the abdomen or pelvis. Electronically signed by: Raulito Acosta M.D. 09/04/2016 9:09 PM The status of this report is Signed. Draft = Not yet reviewed or approved by Radiologist. Signed = Reviewed and approved by Radiologist. <AttendingPhy>Max Desir MD, PhD</AttendingPhy> <FamilyPhy>Cooper Hart M.D.</FamilyPhy> <PrimaryPhy>Vipul Hernandez M.D.</PrimaryPhy> <UnitNumber>[id number]</UnitNumber> <VisitNumber>[id number]</VisitNumber> < PatientName>ANANTH SIMPSON</PatientName> <DateOfBirth>1930</DateOfBirth> < Location>C.MSICU</Location> <ServiceDate>09/04/16</ServiceDate> <MNE>ESINDI</MNE > <OrderingPhy>Leigh Ann Soni</OrderingPhy> <OrderingPhyMNE>f rep ord dr bae</OrderingPhyMNE> <DictatingPhyMNE>f rep dict dr bae</DictatingPhyMNE> < CCListMNE>f rep ct mne</CCListMNE> <AdmittingPhyMNE>f pt admit dr bae</ AdmittingPhyMNE> <AttendingPhyMNE>f pt attend dr bae</AttendingPhyMNE> <ConsultingPhyMNE>f pt consult dr bae</ConsultingPhyMNE> <FamilyPhyMNE>f pt fam dr bae</FamilyPhyMNE> <OtherPhyMNE>f pt other dr bae</OtherPhyMNE> < PrimaryPhyMNE>f pt prim care dr bae</PrimaryPhyMNE> <ReferringPhyMNE>f pt referring dr bae</ReferringPhyMNE> Assessment and Plan 86 y/o female with a history of ESRD with HD, anemia of chronic disease, CHF, CAD, NV, DM II, HTN, paroxysmal atrial fibrillation, HLD and gout who presented to the ED on 09/04 with diarrhea and bright red blood per rectum. Pt. is on ASA and Plavix. CXR shows small left pleural effusion improved from prior study in 07/2016, mild lower lung interstitial thickening. EKG shows new inverted T waves and ST depressions in inferior and lateral leads. Hgb 9.7 upon arrival, PLT stable at 212. -Admit to ICU for rectal bleeding, h/o cardiac disease and a-fib -GI consulted, appreciate recs. Endoscopy planned for tomorrow with Dr. Bowers as pt. could not finish bowel prep today. Can have clear liquids as tolerated today, then NPO after midnight. Continue bowel prep. -Nephro consulted for dialysis, pt on schedule. Pt will resume schedule on Sunday. -Clear liquids, then NPO after midnight -Pt. received total 4 units PRBC, Hgb remains stable in high 9s -ED ordered cryoprecipitate and platelets for pt., however PLT count stable at 212 upon arrival. Discuss[address] with Dr. Desir, not indicated for pt at this time. Orders were already in process at the time of examination and could not be canceled. -Check serial H&H q6h x4 -D/C IVF, CXR shows some pulmonary edema and pleural effusions -Trend serial cardiac enzymes q8h x 3 due to ischemic changes in EKG: troponin 0.046-->0.058-->0.057. ESRD likely contributing. -Repeat EKG q am and with chest pain -Hold ASA and Plavix ESRD on HD--due for dialysis M/W/F -Nephro on board -Continue PhosLo 667 mg PO TID with meals Anemia of chronic disease--baseline Hgb around 11 -Hgb 9.7 upon arrival -Last Hgb 9.9 on 09/05 -4 units PRBC transfused as above -Continue to monitor with serial H&H H/o CHF -Hold Bumex for now Diabetes mellitus type 2--Last HgbA1c checked on 07/06/16 was 5.5 -Insulin sliding scale -Check BSGs q ac and qhs, check q6h while NPO HTN--hypotensive while in ED, improving with fluids and blood -Hold Imdur and metoprolol for now HLD -Continue Crestor 10 mg PO qd Gout -Hold allopurinol for now DVT prophylaxis -Hold chemical prophylaxis for now due to bleeding, scope tomorrow -JASPAL lund and Luca Code Status -Level I, FULL RESUSCITATION STATUS
--- NOTE | 2016-09-05 15:44 | Gastroenterology Progress Note ---
Progress Note Date of Service: Sep 05, 2016 Subjective Pt evaluation today including: chart review, lab review, review of studies, review of inpatient medication list Patient resting at present. Per nursing, requested not to be disturbed as very tired from completion of bowel prep. She does have an indwelling NG. Per nursing , no further rectal bleeding and H&H is stable at present. Discussed case with Tobin Melendez PA-C. Patient is now reporting issues with dysphagia and vomiting since the bowel prep. She does have a pending colonoscopy tomorrow. Last EGD was approximately 10 months ago. She was noted to have a Schatzki's ring status post balloon dilation by Dr. Bowers at that time. Medications Current Inpatient Medications Medications (Trade) Dose Ordered Sig/Janeth Route Start Time Stop Time Status Last Admin Dose Admin Acetaminophen (Tylenol Tab) 650 mg Q4H PRN PO 09/04/16 13:15 10/04/16 13:14 Al Hydrox/Mg Hydrox/Simethicone (Maalox Max Susp) 15 ml Q4H PRN PO 09/04/16 13:15 10/04/16 13:14 Magnesium Hydroxide (Milk Of Magnesia Susp) 30 ml Q12H PRN PO 09/04/16 13:15 10/04/16 13:14 Polyethylene (Miralax Powder Packet) 17 gm DAILY PRN PO 09/04/16 13:15 10/04/16 13:14 Insulin Aspart (novoLOG ASPART) SLIDING SCALE If C... ACHS SC 09/04/16 16:00 10/04/16 15:59 Glucose (Glucose 40% Gel) 15-30 GRAMS 15 GRAMS... UD PRN PO 09/04/16 13:15 10/04/16 13:14 Glucose (Glucose Chew Tab) 4-8 Tablets 4 Tabl... UD PRN PO 09/04/16 13:15 10/04/16 13:14 Dextrose (Dextrose 50% 50ML Syringe) 25-50ML OF 50% DW IV FOR... UD PRN IV 09/04/16 13:15 10/04/16 13:14 Glucagon (Glucagon Inj) 1 mg UD PRN SQ 09/04/16 13:15 10/04/16 13:14 Albuterol (Ventolin Hfa Inhaler) 2 puffs QID PRN INH 09/04/16 13:15 10/04/16 13:14 Amiodarone HCl (Cordarone Tab) 200 mg DAILY PO 09/05/16 09:00 10/05/16 08:59 09/05/16 09:55 200 MG Calcium Acetate (Phoslo Cap) 667 mg TIDM PO 09/04/16 17:28 10/04/16 17:59 Albuterol/ Ipratropium (Duoneb) 3 ml Q12R INH 09/04/16 20:00 10/04/16 19:59 09/05/16 07:12 3 ML Nitroglycerin (Nitrostat Tab) 0.4 mg UD PRN UT 09/04/16 13:15 10/04/16 13:14 Potassium Chloride (Klor-Con Tab) 20 meq DAILY PO 09/05/16 09:00 10/05/16 08:59 Rosuvastatin Calcium 10 mg 10 mg HS PO 09/04/16 21:00 10/04/16 20:59 09/04/16 20:08 10 MG Pantoprazole Sodium/Syringe (Protonix Inj/ Syringe) 10 ml @ 5 mls/min DAILY@09,21 IV 09/04/16 21:00 10/04/16 20:59 09/05/16 08:26 5 MLS/MIN Ioversol 111 ml 111 ml UD PRN IV 09/04/16 21:00 09/08/16 20:59 Prochlorperazine Edisylate/Syringe (Compazine Inj/ Syringe) 5 ml @ 1.667 mls/ min Q6H PRN IV 09/05/16 09:00 10/05/16 08:59 09/05/16 10:08 1.667 MLS/MIN Heparin Sodium (Porcine) (No Heparin In Dialysis) 1 ea TODAY@0600 N/A 09/06/16 06:00 09/06/16 20:00 Epoetin Joshua (Procrit Inj) 10,000 units TODAY@0600 IV. 09/06/16 06:00 09/06/16 20:00 Objective Vital Signs Date Time Temp Pulse Resp B/P Pulse Ox O2 Delivery O2 Flow Rate FiO2 09/05/16 13:00 36.4 69 19 120/54 96 Room Air 09/05/16 12:00 67 16 111/56 96 Room Air 09/05/16 11:30 95 Room Air 09/05/16 10:00 68 22 119/50 95 Room Air 09/05/16 08:00 100 Nasal Cannula 2.0 09/05/16 08:00 36.4 68 22 111/45 100 Nasal Cannula 2.0 09/05/16 07:12 61 20 100 Nasal Cannula 3.0 09/05/16 06:00 61 18 129/55 100 Nasal Cannula 2.0 09/05/16 04:00 Nasal Cannula 2.0 09/05/16 04:00 36.8 61 20 128/51 100 Nasal Cannula 2.0 09/05/16 02:00 63 20 122/40 99 Nasal Cannula 2.0 09/05/16 00:01 36.8 65 12 126/53 99 Nasal Cannula 2.0 09/04/16 23:59 Nasal Cannula 2.0 09/04/16 22:00 65 14 125/53 97 Nasal Cannula 2.0 09/04/16 20:00 Nasal Cannula 2.0 09/04/16 20:00 36.5 66 20 117/47 100 Nasal Cannula 2.0 09/04/16 19:43 64 20 100 Nasal Cannula 3.0 09/04/16 18:43 66 22 118/45 100 Nasal Cannula 2.0 09/04/16 18:00 37.6 68 20 109/55 100 Nasal Cannula 2.0 09/04/16 17:09 65 18 117/44 99 2.0 09/04/16 16:47 71 21 118/45 99 2.0 09/04/16 16:04 36.8 72 23 120/49 99 2.0 09/04/16 15:35 36.5 73 25 132/58 95 2.0 Physical Exam General Appearance: no apparent distress Laboratory Results Last 24 Hours Test 09/04/16 17:22 09/04/16 17:53 09/04/16 18:19 09/04/16 21:15 Urine Color DK YELLOW Urine Appearance CLEAR Urine pH 6.5 Urine Specific [place] 1.021 Urine Protein 1+ Urine Glucose (UA) NEG Urine Ketones NEG Urine Occult Blood NEG Urine Nitrite NEG Urine Bilirubin NEG Urine Urobilinogen NEG Urine Leukocyte Esterase NEG Urine WBC (Auto) 1-5 /hpf Urine RBC (Auto) 0-4 /hpf Urine Hyaline Casts (Auto) 10-30 /lpf Urine Epithelial Cells (Auto) >30 /lpf Urine Bacteria (Auto) NEG Urine Renal Epithelial Cells 10-20 /lpf Urine Pathogenic Casts 0-3 GRANULAR CASTS /lpf Bedside Glucose 154 mg/dl 147 mg/dl Hemoglobin 10.2 g/dL Hematocrit 30.6 % Total Creatine Kinase 26 U/L Creatine Kinase MB 1.0 ng/ml Creatine Kinase MB Ratio 3.8 Troponin I 0.046 ng/ml Test 09/04/16 22:30 09/05/16 05:10 09/05/16 05:14 09/05/16 10:20 Hemoglobin 9.8 g/dL 9.7 g/dL 9.9 g/dL Hematocrit 29.4 % 29.6 % 29.4 % Total Creatine Kinase 30 U/L 32 U/L Creatine Kinase MB 0.7 ng/ml 1.0 ng/ml Creatine Kinase MB Ratio 2.3 3.1 Troponin I 0.058 ng/ml 0.057 ng/ml White Blood Count 8.77 K/uL Red Blood Count 3.30 M/uL Mean Corpuscular Volume 89.7 fL Mean Corpuscular Hemoglobin 29.4 pg Mean Corpuscular Hemoglobin Concent 32.8 g/dl Platelet Count 141 K/uL Mean Platelet Volume 10.7 fL Neutrophils (%) (Auto) 71.1 % Lymphocytes (%) (Auto) 15.2 % Monocytes (%) (Auto) 10.3 % Eosinophils (%) (Auto) 2.3 % Basophils (%) (Auto) 0.6 % Neutrophils # (Auto) 6.25 K/uL Lymphocytes # (Auto) 1.33 K/uL Monocytes # (Auto) 0.90 K/uL Eosinophils # (Auto) 0.20 K/uL Basophils # (Auto) 0.05 K/uL RDW Standard Deviation 60.8 fL RDW Coefficient of Variation 19.1 % Immature Granulocyte % (Auto) 0.5 % Immature Granulocyte # (Auto) 0.04 K/uL Sodium Level 139 mmol/L Potassium Level 4.5 mmol/L Chloride Level 102 mmol/L Carbon Dioxide Level 27 mmol/L Anion Gap 10.0 mmol/L Blood Urea Nitrogen 49 mg/dl Creatinine 4.60 mg/dl Est Creatinine Clear Calc Drug Dose 9.6 ml/min Estimated GFR () 9.4 Estimated GFR (Non- 8.1 BUN/Creatinine Ratio 10.7 Random Glucose 113 mg/dl Calcium Level 8.3 mg/dl Magnesium Level 2.8 mg/dl Bedside Glucose 124 mg/dl Assessment and Plan Patient is a 86 year old female who presents to the ER with an abrupt onset of rectal bleeding (now resolved) noted to be anemic with an H/H of 9.7/30.2 and now with reported returning symptoms of dysphagia and vomiting. 1. Clear liquid diet today. 2. NPO after midnight. 3. EGD and colonoscopy for further evaluation of symptoms with Dr. Bowers tomorrow. 4. Continue Pantoprazole 40 mg IV BID. 5. Additional GI recommendations pending results of testing. Agree with ANGELINE Montalvo as above Abd: Soft, NT, ND, +BS EGD and colonoscopy in AM secondary to dysphagia and Hematochezia.
[2016-09-05 16:31] LABS: HEMATOCRIT 27.9 % (37-47)
[2016-09-05] MEDS ORDERED: NURSING VERBAL MED ORDER ONE (17:15)
[2016-09-05] MEDS: ROSUVASTATIN CALCIUM 10 MG TAB PO SCH (21:03)
[2016-09-05 22:55] LABS: HEMATOCRIT 26.8 % (37-47)
[2016-09-06] VITALS (45 sets, daily range): BP systolic 99–144; BP diastolic 42–71; PULSE 66–92; TEMP 36.4–36.9; O2SAT 92–100
[2016-09-06 05:37] LABS: BASO % 0.4 %; BASO ABS # 0.03 K/uL (0-0.2); COMPLETE YES; EOS % 3.4 %; HEMATOCRIT 27.3 % (37-47); IG% 0.6 %; LYMPH % 12.8 %; LYMPH ABS # 1.05 K/uL (1.2-3.4); MEAN CELL VOLUME 89.8 fL (80-100); MEAN CORPUSCULAR HEMOGLOBIN 29.9 pg (25-34); MEAN CORPUSCULAR HGB CONC 33.3 g/dl (32-36); MONO % 14.7 %; NEUT % 68.1 %; PLATELET COUNT 150 K/uL (130-400); RED BLOOD COUNT 3.04 M/uL (4.2-5.4); WHITE BLOOD COUNT 8.18 K/uL (4.8-10.8)
[2016-09-06] MEDS: INSULIN ASPART 100 UNITS/ML 3 ML PEN SC SCH ×4 (05:56→21:00)
[2016-09-06] MEDS ORDERED: EPOETIN ALFA 10,000 UNITS/ML VIAL IV. SCH (06:00)
[2016-09-06 06:21] LABS: BUN/CREATININE RATIO 10.3 (10-20); CALCIUM 8.6 mg/dl (8.5-10.1); CKMB/CK RATIO 3.9 (0-3.0); CREATININE 4.9 mg/dl (0.60-1.20); MAGNESIUM 2.9 mg/dl (1.8-2.4); PHOSPHORUS 4.9 mg/dl (2.5-4.9); POTASSIUM 4.3 mmol/L (3.5-5.1)
[2016-09-06] MEDS ORDERED: BUMETANIDE IV 1 MG in SYRINGE 0 ML IV ONE (06:30)
[2016-09-06] MEDS: CALCIUM ACETATE 667MG GELCAP PO SCH ×3 (07:15→16:33)
--- NOTE | 2016-09-06 07:28 | DIAGNOSTIC IMAGING REPORT ---
CHEST ONE VIEW PORTABLE CLINICAL HISTORY: Hypoxia. Congestive failure. COMPARISON STUDY: 09/05/2016 FINDINGS: 2 right-sided central venous catheters are again visualized. The heart is enlarged. There are postsurgical changes of a midline sternotomy. There are small bilateral pleural effusions. There is persistent interstitial pulmonary edema. Bilateral hilar prominence, is likely secondary to prominent pulmonary arteries.[ There is a nasogastric tube which passes into the stomach. There is a 13 mm nodule at the right lung base. This was present on prior studies. IMPRESSION: Cardiomegaly, pulmonary edema, and bilateral pleural effusions. There is probable slight improvement when compared the preceding study. Stable 13 mm right basilar nodule Electronically signed by: Bob Heart M.D. 09/06/2016 7:26 AM
[2016-09-06] MEDS: ALBUT/IPRATROP 3MG/0.5MG NEB 3 ML VIAL INH SCH ×3 (07:36→20:20)
[2016-09-06] MEDS: PANTOprazole INJ 40 MG in SYRINGE 0 ML IV SCH ×2 (07:50→21:40)
[2016-09-06] MEDS: AMIODARONE 200 MG TAB PO SCH (07:50)
[2016-09-06] MEDS ORDERED: KETAMINE HCL INJ 50 MG/ML 10 ML VIAL ONE (10:11)
--- NOTE | 2016-09-06 10:52 | GI REPORT ---
Procedure Date: 09/06/2016 10:17 AM Procedure: Upper GI endoscopy Indications: Dysphagia Medicines: Monitored Anesthesia Care Complications: No immediate complications. Estimated Blood Loss: Estimated blood loss: none. Procedure: Pre-Anesthesia Assessment: - Prior to the procedure, a History and Physical was performed, and patient medications and allergies were reviewed. The patient's tolerance of previous anesthesia was also reviewed. The risks and benefits of the procedure and the sedation options and risks were discussed with the patient. All questions were answered, and informed consent was obtained. Prior Anticoagulants: The patient last took aspirin 2 days and Plavix (clopidogrel) 2 days prior to the procedure. ASA Grade Assessment: IV - A patient with severe systemic disease that is a constant threat to life. After reviewing the risks and benefits, the patient was deemed in satisfactory condition to undergo the procedure. After obtaining informed consent, the endoscope was passed under direct vision. Throughout the procedure, the patient's blood pressure, pulse, and oxygen saturations were monitored continuously. The scope was introduced through the mouth, and advanced to the second part of duodenum. The upper GI endoscopy was accomplished without difficulty. The patient tolerated the procedure well. Findings: No endoscopic abnormality was evident in the esophagus to explain the patient's complaint of dysphagia. It was decided, however, to proceed with dilation at the gastroesophageal junction. A TTS dilator was passed through the scope. Dilation with a 15-16.5-18 mm balloon (to a maximum balloon size of 18 mm) dilator was performed. The dilation site was examined and showed no change. The entire examined stomach was normal. The examined duodenum was normal. Impression: - No endoscopic esophageal abnormality to explain patient's dysphagia. Esophagus dilated. Dilated. - Normal stomach. - Normal examined duodenum. - No specimens collected. - Feeding tube removed at completion of examination Recommendation: - Resume previous diet. - Continue present medications. - Perform a colonoscopy today. Dario Bowers, DO 09/06/2016 10:51:02 AM This report has been signed electronically. Note Initiated On: 09/06/2016 10:17 AM
--- NOTE | 2016-09-06 10:55 | GI REPORT ---
Procedure Date: 09/06/2016 10:33 AM Procedure: Colonoscopy Indications: Hematochezia Medicines: Monitored Anesthesia Care Complications: No immediate complications. Estimated Blood Loss: Estimated blood loss: none. Procedure: Pre-Anesthesia Assessment: - Prior to the procedure, a History and Physical was performed, and patient medications and allergies were reviewed. The patient's tolerance of previous anesthesia was also reviewed. The risks and benefits of the procedure and the sedation options and risks were discussed with the patient. All questions were answered, and informed consent was obtained. Prior Anticoagulants: The patient last took aspirin 2 days and Plavix (clopidogrel) 2 days prior to the procedure. ASA Grade Assessment: IV - A patient with severe systemic disease that is a constant threat to life. After reviewing the risks and benefits, the patient was deemed in satisfactory condition to undergo the procedure. After I obtained informed consent, the scope was passed under direct vision. Throughout the procedure, the patient's blood pressure, pulse, and oxygen saturations were monitored continuously. The scope was introduced through the anus and advanced to the cecum, identified by appendiceal orifice and ileocecal valve. The colonoscopy was performed without difficulty. The patient tolerated the procedure well. The quality of the bowel preparation was good. The ileocecal valve, appendiceal orifice, and rectum were photographed. Findings: A 5 mm polyp was found in the cecum. The polyp was sessile. The polyp was removed with a cold biopsy forceps. Resection and retrieval were complete. Scattered small-mouthed diverticula were found in the entire colon. Non-bleeding internal hemorrhoids were found during retroflexion. The hemorrhoids were medium-sized. Impression: - One 5 mm polyp in the cecum, removed with a cold biopsy forceps. Resected and retrieved. - Diverticulosis in the entire examined colon. - Non-bleeding internal hemorrhoids. Recommendation: - Return patient to ICU for ongoing care. - Advance diet as tolerated. - Continue present medications. - Await pathology results. - No repeat colonoscopy due to age. Dario Bowers DO 09/06/2016 10:54:16 AM This report has been signed electronically. Note Initiated On: 09/06/2016 10:33 AM
[2016-09-06] MEDS ORDERED: LIDOCAINE HCL 2% 2 ML VIAL (20MG/ML) ONE (10:56)
[2016-09-06] MEDS ORDERED: ETOMIDATE 2 MG/ML 20 ML VIAL IV ONE (10:56)
[2016-09-06] MEDS ORDERED: PROPOFOL IV EMULSION 10 MG/ML 20 ML VIAL IV ONE (10:56)
--- NOTE | 2016-09-06 11:40 | Critical Care Progress Note ---
Critical Care Progress Note Date of Service Sep 06, 2016. Attending Dr. Lyons Subjective No complaints at this time Slept well overnight Tolerating ng tube in situ Denies any nausea or vomiting at this time Denies having chest pain, shortness of breath or palpitations Objective Physical Exam: General: Comfortable, no apparent distress Eyes: \PERRL, normal EOM bilaterally ENT: \Mucous membranes moist, pharynx clear, TM clear Neck: No JVD, no lymphadenopathy, no thyromegaly, right sided IJ introducer with central line; subclavian hemodialysis catheter, overlying skin intact; no erythema Lungs: Crackles left > right, no wheezing, no crackles Heart: S1 and S2 with no added sounds or murmurs Abdomen: Soft, non-tender, non-distended, normal bowel sounds in all 4 quadrants Extremities: No pitting edema, no asymmetric swelling, patient has mild calf tenderness bilaterally; notes that the calf pain is long-standing for many years Neuro: AO x 3, responds to commands appropriately, normal mood and affect Assessment & Plan Pleasant 86 year old acute GI bleed on the background of the following medical issues - 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 She is doing well at this time, and is scheduled for EGD/colonoscopy and hemodialysis today The plan for her is as follows: Neuro - AO x 3; ICU CAM negative Respiratory Hypoxic respiratory failure - Was able to wean to room air yesterday but requiring overnight. - Denies feeling short of breath at this time; crackles L > R; CXR showing pulmonary congestion with bilateral effusions, as previously noted Patient notes she missed dialysis and has not had home dose of Bumex since admission; U/O suggests positive balance of 4 L; likely secondary to fluid congestion Bumex 1 mg IV single dosed administered this mornining; will follow-up U/O Will monitor saturations closely; expected improvement following hemodialysis - Continue Albuterol per home medications - Continue Duoneb q 12 hours Cardiovascular - BP stable 110-120 systolic - HR 60-70 - No IV infusions required currently for hemodynamic support - Follow BP closely after dialysis as would expect drop Prolonged QTc - 525 in EKG; slight increase from 518 yesterday - Compazine, though lower in risk of QT prolongation compared to Zofran, will be discontinued in light of persistent QT prolongation New EKG changes with troponin increase - Denies chest pain; repeat EKG this morning unchanged, revealing stable ST depression and T wave inversion inferolaterally - Troponins trending 0.046 --> 0.058 -- >0.057; This morning increased to 0.111 - In the setting of ESRD, increased troponin likely secondary to impaired renal clearance; will follow AM cardiac enzymes following dialysis Coronary Artery Disease - Hold ASA and Plavix in light of possible active GI bleeding H&H remains stable with q 6 hourly checks favoring absence of active bleeding Resume pending result of colonoscopy; if no active bleeding will resume - Continue Rosuvastatin Gastrointestinal GI Bleed - Patient NPO except medications this morning - Pantoprazole 40 mg BID - GI consulted Endoscopy will be deferred until tomorrow as patient still attempting to complete bowel prep and has not been NPO for at least 2 hours Spoke with GI service; patient to have clear liquid diet and resume NPO after midnight except meds - H&H stable in the 9s this morning; space to q 12 hrs today GI Prophylaxis: Protonix as above Bowel Regimen: Miralax PRN and Milk of Magnesium for constipation Genitourinary ESRD - Cr increased to 4.9 today (baseline ranges 2-3) - Patient notes she gets dialysis M, W, F - Did not most recent dialysis 2 days ago due to hospitalization; scheduled for dialysis today - Nephrology consult ordered Electrolytes - Na 142, K 4.3, Cl 101, CO2 27, BUN 50, Endocrine Type 2 Diabetes Mellitus - Patient on Aspart SSI; Goal 140-180; CF 30 - BSGs within range; 120-150s; most recent 131 Heme/ID - Tmax 36.8; WBC 8 stable Acute Blood Loss secondary to GI bleed - Hb stable compared to baseline 9-10 - Will space checks to q 12 hourly for 1 day, then pending result of colonoscopy will space to daily DVT Prophylaxis - Pharmacologically contra-indicated due to active GI bleeding - SCDs ordered for patient; patient refusing to wear them; discussed risk of DVT in the absence of either Heparin or SCD use; patient understands and accepts risks. - H&H has been stable, so we can re-start Heparin s.c daily Disposition - ICU pending EGD and colonoscopy and dialysis - OT and PT evaluate and treat Code Status - Level I Resuscitation Resident Physician Supervision Note: Dr. Anne was resident physician during care of patient. I separately evaluated patient and did history and exam. I discussed the case with the resident and generally agree with the findings and plan. Planned EGD with Colonoscopy, dialysis following, if remains hemodynamically stable will downgrade to telemetry in the morning. Documented By: Elio Lyons DO Data Medications: Current Inpatient Medications Medications (Trade) Dose Ordered Sig/Janeth Route Start Time Stop Time Status Last Admin Dose Admin Acetaminophen (Tylenol Tab) 650 mg Q4H PRN PO 09/04/16 13:15 10/04/16 13:14 Al Hydrox/Mg Hydrox/Simethicone (Maalox Max Susp) 15 ml Q4H PRN PO 09/04/16 13:15 10/04/16 13:14 Magnesium Hydroxide (Milk Of Magnesia Susp) 30 ml Q12H PRN PO 09/04/16 13:15 10/04/16 13:14 Polyethylene (Miralax Powder Packet) 17 gm DAILY PRN PO 09/04/16 13:15 10/04/16 13:14 Insulin Aspart (novoLOG ASPART) SLIDING SCALE If C... ACHS SC 09/04/16 16:00 10/04/16 15:59 Glucose (Glucose 40% Gel) 15-30 GRAMS 15 GRAMS... UD PRN PO 09/04/16 13:15 10/04/16 13:14 Glucose (Glucose Chew Tab) 4-8 Tablets 4 Tabl... UD PRN PO 09/04/16 13:15 10/04/16 13:14 Dextrose (Dextrose 50% 50ML Syringe) 25-50ML OF 50% DW IV FOR... UD PRN IV 09/04/16 13:15 10/04/16 13:14 Glucagon (Glucagon Inj) 1 mg UD PRN SQ 09/04/16 13:15 10/04/16 13:14 Albuterol (Ventolin Hfa Inhaler) 2 puffs QID PRN INH 09/04/16 13:15 10/04/16 13:14 Amiodarone HCl (Cordarone Tab) 200 mg DAILY PO 09/05/16 09:00 10/05/16 08:59 09/06/16 07:50 200 MG Calcium Acetate (Phoslo Cap) 667 mg TIDM PO 09/04/16 17:28 10/04/16 17:59 09/05/16 17:24 667 MG Albuterol/ Ipratropium (Duoneb) 3 ml Q12R INH 09/04/16 20:00 10/04/16 19:59 09/06/16 07:36 3 ML Nitroglycerin (Nitrostat Tab) 0.4 mg UD PRN UT 09/04/16 13:15 10/04/16 13:14 Rosuvastatin Calcium 10 mg 10 mg HS PO 09/04/16 21:00 10/04/16 20:59 09/05/16 21:03 10 MG Pantoprazole Sodium/Syringe (Protonix Inj/ Syringe) 10 ml @ 5 mls/min DAILY@09, IV 09/04/16 21:00 10/04/16 20:59 09/06/16 07:50 5 MLS/MIN Ioversol (Optiray 320) 111 ml UD PRN IV 09/04/16 21:00 09/08/16 20:59 Heparin Sodium (Porcine) (No Heparin In Dialysis) 1 ea TODAY@0600 N/A 09/06/16 06:00 09/06/16 20:00 Epoetin Joshua (Procrit Inj) 10,000 units TODAY@0600 IV. 09/06/16 06:00 09/06/16 20:00 I & O: 24-Hour Column 09/06/16 08:00 Intake Total 1860 ml Output Total 1705 ml Balance 155 ml Vital Signs: Date Time Temp Pulse Resp B/P Pulse Ox O2 Delivery O2 Flow Rate FiO2 09/06/16 11:08 36.3 78 20 108/43 97 Nasal Cannula 2 09/06/16 10:55 78 20 104/42 97 Nasal Cannula 2 09/06/16 10:03 36.3 78 20 124/56 97 Nasal Cannula 2 09/06/16 09:51 77 27 120/50 92 Room Air 09/06/16 08:00 Room Air 09/06/16 07:59 36.4 77 26 111/58 92 Room Air 09/06/16 07:38 81 22 115/47 93 Nasal Cannula 2.0 09/06/16 07:36 66 14 96 Nasal Cannula 2.0 09/06/16 06:00 77 20 116/56 97 Nasal Cannula 2.0 09/06/16 06:00 36.8 75 20 116/56 97 Nasal Cannula 2.0 09/06/16 04:00 36.8 71 18 103/42 97 Nasal Cannula 2.0 09/06/16 04:00 Nasal Cannula 2.0 09/06/16 02:00 69 18 99/71 97 Nasal Cannula 2.0 09/06/16 00:01 36.6 67 12 109/43 97 Nasal Cannula 2.0 09/05/16 23:59 Nasal Cannula 2.0 09/05/16 22:00 67 14 107/44 98 Nasal Cannula 2.0 09/05/16 20:17 67 20 93 Nasal Cannula 2.0 09/05/16 20:00 37.0 75 16 131/57 98 Nasal Cannula 2.0 09/05/16 20:00 Nasal Cannula 2.0 09/05/16 18:00 68 20 116/40 92 Room Air 09/05/16 16:00 36.5 68 18 112/44 98 Room Air 09/05/16 16:00 98 Room Air 09/05/16 13:00 36.4 69 19 120/54 96 Room Air 09/05/16 12:00 67 16 111/56 96 Room Air 09/05/16 11:30 95 Room Air Laboratory Results: Last 24 Hours Test 09/05/16 16:00 09/05/16 17:12 09/05/16 21:07 09/05/16 22:31 Hemoglobin 9.1 g/dL 9.0 g/dL Hematocrit 27.9 % 26.8 % Bedside Glucose 132 mg/dl 151 mg/dl Test 09/06/16 05:08 09/06/16 05:15 White Blood Count 8.18 K/uL Red Blood Count 3.04 M/uL Hemoglobin 9.1 g/dL Hematocrit 27.3 % Mean Corpuscular Volume 89.8 fL Mean Corpuscular Hemoglobin 29.9 pg Mean Corpuscular Hemoglobin Concent 33.3 g/dl Platelet Count 150 K/uL Mean Platelet Volume 10.0 fL Neutrophils (%) (Auto) 68.1 % Lymphocytes (%) (Auto) 12.8 % Monocytes (%) (Auto) 14.7 % Eosinophils (%) (Auto) 3.4 % Basophils (%) (Auto) 0.4 % Neutrophils # (Auto) 5.57 K/uL Lymphocytes # (Auto) 1.05 K/uL Monocytes # (Auto) 1.20 K/uL Eosinophils # (Auto) 0.28 K/uL Basophils # (Auto) 0.03 K/uL RDW Standard Deviation 60.4 fL RDW Coefficient of Variation 18.9 % Immature Granulocyte % (Auto) 0.6 % Immature Granulocyte # (Auto) 0.05 K/uL Sodium Level 142 mmol/L Potassium Level 4.3 mmol/L Chloride Level 101 mmol/L Carbon Dioxide Level 27 mmol/L Anion Gap 14.0 mmol/L Blood Urea Nitrogen 50 mg/dl Creatinine 4.90 mg/dl Est Creatinine Clear Calc Drug Dose 9.0 ml/min Estimated GFR () 8.7 Estimated GFR (Non- 7.5 BUN/Creatinine Ratio 10.3 Random Glucose 116 mg/dl Calcium Level 8.6 mg/dl Phosphorus Level 4.9 mg/dl Magnesium Level 2.9 mg/dl Total Creatine Kinase 33 U/L Creatine Kinase MB 1.3 ng/ml Creatine Kinase MB Ratio 3.9 Troponin I 0.111 ng/ml Bedside Glucose 131 mg/dl
[2016-09-06 11:49] LABS: HEMATOCRIT 26.7 % (37-47)
--- NOTE | 2016-09-06 12:18 | Anesthesiology Progress Note ---
Anesthesia Post Op Note Date & Time Sep 06, 2016 at 12:17 Vital Signs Pain Intensity: 0 Vital Signs Past 12 Hours Date Time Temp Pulse Resp B/P Pulse Ox O2 Delivery O2 Flow Rate FiO2 09/06/16 12:00 Room Air 09/06/16 11:58 36.7 75 19 114/48 99 Nasal Cannula 2.0 09/06/16 11:25 78 20 106/36 97 Nasal Cannula 2 09/06/16 11:20 77 20 109/42 97 Nasal Cannula 2 09/06/16 11:13 77 20 106/38 97 Nasal Cannula 2 09/06/16 11:08 36.3 78 20 108/43 97 Nasal Cannula 2 09/06/16 10:55 78 20 104/42 97 Nasal Cannula 2 09/06/16 10:03 36.3 78 20 124/56 97 Nasal Cannula 2 09/06/16 09:51 77 27 120/50 92 Room Air 09/06/16 08:00 Room Air 09/06/16 07:59 36.4 77 26 111/58 92 Room Air 09/06/16 07:38 81 22 115/47 93 Nasal Cannula 2.0 09/06/16 07:36 66 14 96 Nasal Cannula 2.0 09/06/16 06:00 77 20 116/56 97 Nasal Cannula 2.0 09/06/16 06:00 36.8 75 20 116/56 97 Nasal Cannula 2.0 09/06/16 04:00 36.8 71 18 103/42 97 Nasal Cannula 2.0 09/06/16 04:00 Nasal Cannula 2.0 09/06/16 02:00 69 18 99/71 97 Nasal Cannula 2.0 Notes Mental Status: alert / awake / arousable Nausea / Vomiting: adequately controlled Pain: adequately controlled Airway Patency, RR, SpO2: stable & adequate BP & HR: stable & adequate Hydration State: stable & adequate Anesthetic Complications: no major complications apparent
--- NOTE | 2016-09-06 15:51 | Nephrology Progress Note ---
Nephrology Progress Note Date of Service Sep 06, 2016. Chief Complaint To provide inpatient HD for this patient with ESRD and assist with medical management. Patient was admitted with GI bleeding. Subjective Ms. Rahman was seen & examined in the ICU this morning. She had difficulty completing her bowel prep. She has been scheduled for EGD & colonoscopy today. The patient has ESRD due to diabetic nephropathy and cardiorenal syndrome. She dialyzes MWF at the [place] [facility] (F-160 NR, 2K 2Ca EDW 75 kg) Ms. Simpson's medical history is significant for AODM, HTN, PVD w/ bilateral carotid arterial disease, ASCVD s/p CABG x 1996 and OA. The patient reports that her GI bleeding has stopped. She no longer has melanotic stool. Review of Systems Constitutional: No fever Cardiovascular: No chest pain Respiratory: No dyspnea at rest Abdomen: No pain, No vomiting Extremities: No leg edema A complete review of systems was performed. Pertinent positives are noted above. All other systems are negative. Vital Signs Last 8 Hrs Date Time Temp Pulse Resp B/P Pulse Ox O2 Delivery O2 Flow Rate FiO2 09/06/16 13:59 77 22 116/48 98 Nasal Cannula 2.0 09/06/16 12:00 Room Air 09/06/16 11:58 36.7 75 19 114/48 99 Nasal Cannula 2.0 09/06/16 11:25 78 20 106/36 97 Nasal Cannula 2 09/06/16 11:20 77 20 109/42 97 Nasal Cannula 2 09/06/16 11:13 77 20 106/38 97 Nasal Cannula 2 09/06/16 11:08 36.3 78 20 108/43 97 Nasal Cannula 2 09/06/16 10:55 78 20 104/42 97 Nasal Cannula 2 09/06/16 10:03 36.3 78 20 124/56 97 Nasal Cannula 2 09/06/16 09:51 77 27 120/50 92 Room Air 09/06/16 08:00 Room Air 09/06/16 07:59 36.4 77 26 111/58 92 Room Air I & O 24-Hour Column 09/06/16 08:00 Intake Total 1860 ml Output Total 1705 ml Balance 155 ml Last Recorded Weight Weight (Kilograms): 81.800 Physical Exam General Appearance: no apparent distress Head: normocephalic, atraumatic Eyes: PERRL, EOMI Neck: no adenopathy, + pertinent finding (R IJ THC and CVC w/ clean dry dressing in place) Respiratory/Chest: + crackles (at bases bilaterally) Cardiovascular: regular rate, rhythm Abdomen/GI: normal bowel sounds, non tender, soft Extremities/Musculoskelatal: no pedal edema, + pertinent finding (left upper arm AVF + bruit. Venous limb is deep and will require transposition) Neurologic/Psych: alert, oriented x 3 Family History Asthma Cancer SISTER (Breast cancer) Chronic kidney disease MOTHER Diabetes mellitus FATHER Heart disease FATHER Hypertension FATHER MOTHER Kidney disease Kidney stones Stroke Mother - CKD Social History Smoking Status: Never smoker Smokeless Tobacco Use: No Alcohol Use: none Drug Use: none Marital Status: Housing Status: lives with family (with granddaughter) Occupation: retired . Retired. Never a smoker. Laboratory Results Past 24 Hours 09/05/16 16:00 09/05/16 22:31 09/06/16 05:08 Red Blood Count 3.04, Mean Corpuscular Volume 89.8, Mean Corpuscular Hemoglobin 29.9, Mean Corpuscular Hemoglobin Concent 33.3, Mean Platelet Volume 10.0, Neutrophils (%) (Auto) 68.1, Lymphocytes (%) (Auto) 12.8, Monocytes (%) (Auto) 14.7, Eosinophils (%) (Auto) 3.4, Basophils (%) (Auto) 0.4, Neutrophils # (Auto ) 5.57, Lymphocytes # (Auto) 1.05, Monocytes # (Auto) 1.20, Eosinophils # (Auto ) 0.28, Basophils # (Auto) 0.03 09/06/16 11:42 09/06/16 05:08 Test 09/05/16 17:12 09/05/16 21:07 09/06/16 05:08 09/06/16 05:15 Bedside Glucose 132 mg/dl (70-90) 151 mg/dl (70-90) 131 mg/dl (70-90) White Blood Count 8.18 K/uL (4.8-10.8) Red Blood Count 3.04 M/uL (4.2-5.4) Hemoglobin 9.1 g/dL (12.0-16.0) Hematocrit 27.3 % (37-47) Mean Corpuscular Volume 89.8 fL (80-100) Mean Corpuscular Hemoglobin 29.9 pg (25-34) Mean Corpuscular Hemoglobin Concent 33.3 g/dl (32-36) Platelet Count 150 K/uL (130-400) Mean Platelet Volume 10.0 fL (7.4-10.4) Neutrophils (%) (Auto) 68.1 % Lymphocytes (%) (Auto) 12.8 % Monocytes (%) (Auto) 14.7 % Eosinophils (%) (Auto) 3.4 % Basophils (%) (Auto) 0.4 % Neutrophils # (Auto) 5.57 K/uL (1.4-6.5) Lymphocytes # (Auto) 1.05 K/uL (1.2-3.4) Monocytes # (Auto) 1.20 K/uL (0.11-0.59) Eosinophils # (Auto) 0.28 K/uL (0-0.5) Basophils # (Auto) 0.03 K/uL (0-0.2) RDW Standard Deviation 60.4 fL (36.4-46.3) RDW Coefficient of Variation 18.9 % (11.5-14.5) Immature Granulocyte % (Auto) 0.6 % Immature Granulocyte # (Auto) 0.05 K/uL (0.00-0.02) Anion Gap 14.0 mmol/L (3-11) Est Creatinine Clear Calc Drug Dose 9.0 ml/min Estimated GFR () 8.7 Estimated GFR (Non- 7.5 BUN/Creatinine Ratio 10.3 (10-20) Calcium Level 8.6 mg/dl (8.5-10.1) Phosphorus Level 4.9 mg/dl (2.5-4.9) Magnesium Level 2.9 mg/dl (1.8-2.4) Total Creatine Kinase 33 U/L (26-192) Creatine Kinase MB 1.3 ng/ml (0.5-3.6) Creatine Kinase MB Ratio 3.9 (0-3.0) Troponin I 0.111 ng/ml (0-0.045) Test 09/06/16 11:37 Bedside Glucose 145 mg/dl (70-90) Allergies Coded Allergies: No Known Allergies (Unverified , 09/04/16) Medications Current Inpatient Medications Medications (Trade) Dose Ordered Sig/Janeth Route Start Time Stop Time Status Last Admin Dose Admin Acetaminophen (Tylenol Tab) 650 mg Q4H PRN PO 09/04/16 13:15 10/04/16 13:14 Al Hydrox/Mg Hydrox/Simethicone (Maalox Max Susp) 15 ml Q4H PRN PO 09/04/16 13:15 10/04/16 13:14 Magnesium Hydroxide (Milk Of Magnesia Susp) 30 ml Q12H PRN PO 09/04/16 13:15 10/04/16 13:14 Polyethylene (Miralax Powder Packet) 17 gm DAILY PRN PO 09/04/16 13:15 10/04/16 13:14 Insulin Aspart (novoLOG ASPART) SLIDING SCALE If C... ACHS SC 09/04/16 16:00 10/04/16 15:59 Glucose (Glucose 40% Gel) 15-30 GRAMS 15 GRAMS... UD PRN PO 09/04/16 13:15 10/04/16 13:14 Glucose (Glucose Chew Tab) 4-8 Tablets 4 Tabl... UD PRN PO 09/04/16 13:15 10/04/16 13:14 Dextrose (Dextrose 50% 50ML Syringe) 25-50ML OF 50% DW IV FOR... UD PRN IV 09/04/16 13:15 10/04/16 13:14 Glucagon (Glucagon Inj) 1 mg UD PRN SQ 09/04/16 13:15 10/04/16 13:14 Albuterol (Ventolin Hfa Inhaler) 2 puffs QID PRN INH 09/04/16 13:15 10/04/16 13:14 Amiodarone HCl (Cordarone Tab) 200 mg DAILY PO 09/05/16 09:00 10/05/16 08:59 09/06/16 07:50 200 MG Calcium Acetate (Phoslo Cap) 667 mg TIDM PO 09/04/16 17:28 10/04/16 17:59 09/05/16 17:24 667 MG Albuterol/ Ipratropium (Duoneb) 3 ml Q12R INH 09/04/16 20:00 10/04/16 19:59 09/06/16 07:36 3 ML Nitroglycerin (Nitrostat Tab) 0.4 mg UD PRN UT 09/04/16 13:15 10/04/16 13:14 Rosuvastatin Calcium 10 mg 10 mg HS PO 09/04/16 21:00 10/04/16 20:59 09/05/16 21:03 10 MG Pantoprazole Sodium/Syringe (Protonix Inj/ Syringe) 10 ml @ 5 mls/min DAILY@09,21 IV 09/04/16 21:00 10/04/16 20:59 09/06/16 07:50 5 MLS/MIN Ioversol (Optiray 320) 111 ml UD PRN IV 09/04/16 21:00 09/08/16 20:59 Heparin Sodium (Porcine) (No Heparin In Dialysis) 1 ea TODAY@0600 N/A 09/06/16 06:00 09/06/16 20:00 Epoetin Joshua (Procrit Inj) 10,000 units TODAY@0600 IV. 09/06/16 06:00 09/06/16 20:00 Impression (1) GI bleed (2) Anemia (3) ESRD (end stage renal disease) on dialysis (4) NSTEMI (non-ST elevated myocardial infarction) Patient admitted for evaluation of GI bleeding. She has ASCVD and has been on ASA & Plavix chronically as an outpatient. She has required transfusion w/ 4 U PRBC since admission. She currently denies angina or dyspnea. PMH - ESRD on HD MWF at [facility], ASCVD s/p CABG x 4 1996, cardiac cath 2006 complicated by pseudoaneurysm of the right femoral artery requiring emergency surgical repair, AODM, HTN, PVD w/ carotid stenosis, h/o nephrolithiasis, cholelithiasis, OA Recommendations END STAGE RENAL DISEASE: -- Heparin free HD today. Orders have been entered into the EMR and HD RN has been notified -- Monitor serial PRP ANEMIA: -- Patient has been transfused 4 U PRBC since admission. Hgb is now stable at ~ 9.9. Continue to monitor -- Await results of colonoscopy and GI recommendations -- h/o ASA & plavix use -- Continue PPI therapy -- Will provide RANJAN w/ HD today ASCVD: -- Patient denies angina -- Mild elevation in troponin -- Recommend consultation w/ cardiology
--- NOTE | 2016-09-06 15:53 | Hospitalist Progress Note ---
Hospitalist Progress Note Date of Service Sep 06, 2016. Subjective Pt evaluation today including: conversation w/ patient, conversation w/ family , physical exam, chart review, lab review, review of studies, conversation w/ exchange underwriting consultant (Dr. Anne), review of inpatient medication list Pain: None PO Intake: Tolerating full liquid diet Voiding: garibay catheter in place Patient reports feeling well. She complains of some weakness and fatigue. She has no other complaints at this time. She had an EGD and colonoscopy with Dr. Bowers earlier today. The patient states that she has not seen any more bleeding per her rectum. She is tolerating a full liquid diet. The patient is due for dialysis this afternoon. The patient denies fevers, chills, sweats, lightheadedness, chest pain, palpitations, claudication, cough, wheezing, shortness of breath, dysphagia, nausea, vomiting, diarrhea, abdominal pain, dysuria, hematuria, urinary retention, paralysis, weakness, numbness and tingling. Additional Comments: See HPI for pertinent positives and negatives. All other systems reviewed and negative. Objective Vital Signs Date Time Temp Pulse Resp B/P Pulse Ox O2 Delivery O2 Flow Rate FiO2 09/06/16 13:59 77 22 116/48 98 Nasal Cannula 2.0 09/06/16 12:00 Room Air 09/06/16 11:58 36.7 75 19 114/48 99 Nasal Cannula 2.0 09/06/16 11:25 78 20 106/36 97 Nasal Cannula 2 09/06/16 11:20 77 20 109/42 97 Nasal Cannula 2 09/06/16 11:13 77 20 106/38 97 Nasal Cannula 2 09/06/16 11:08 36.3 78 20 108/43 97 Nasal Cannula 2 09/06/16 10:55 78 20 104/42 97 Nasal Cannula 2 09/06/16 10:03 36.3 78 20 124/56 97 Nasal Cannula 2 09/06/16 09:51 77 27 120/50 92 Room Air 09/06/16 08:00 Room Air 09/06/16 07:59 36.4 77 26 111/58 92 Room Air 09/06/16 07:38 81 22 115/47 93 Nasal Cannula 2.0 09/06/16 07:36 66 14 96 Nasal Cannula 2.0 09/06/16 06:00 77 20 116/56 97 Nasal Cannula 2.0 09/06/16 06:00 36.8 75 20 116/56 97 Nasal Cannula 2.0 09/06/16 04:00 36.8 71 18 103/42 97 Nasal Cannula 2.0 09/06/16 04:00 Nasal Cannula 2.0 09/06/16 02:00 69 18 99/71 97 Nasal Cannula 2.0 09/06/16 00:01 36.6 67 12 109/43 97 Nasal Cannula 2.0 09/05/16 23:59 Nasal Cannula 2.0 09/05/16 22:00 67 14 107/44 98 Nasal Cannula 2.0 09/05/16 20:17 67 20 93 Nasal Cannula 2.0 09/05/16 20:00 37.0 75 16 131/57 98 Nasal Cannula 2.0 09/05/16 20:00 Nasal Cannula 2.0 09/05/16 18:00 68 20 116/40 92 Room Air 09/05/16 16:00 36.5 68 18 112/44 98 Room Air 09/05/16 16:00 98 Room Air Physical Exam General Appearance: WD/WN, no apparent distress Eyes: normal inspection, PERRL, EOMI ENT: normal ENT inspection, hearing grossly normal, pharynx normal Neck: supple, no JVD, trachea midline, + pertinent finding (central line in place) Respiratory/Chest: normal breath sounds, no respiratory distress, + crackles ( bases bilaterally, improved) Cardiovascular: regular rate, rhythm, no gallop, no murmur Abdomen: normal bowel sounds, non tender, soft Extremities: normal inspection, + swelling (trace pitting edema), + pertinent finding (lower extremities TTP) Neurologic/Psychiatric: alert, normal mood/affect, oriented x 3 Skin: warm/dry, no rash, + pallor Laboratory Results Last 24 Hours Test 09/05/16 16:00 09/05/16 17:12 09/05/16 21:07 09/05/16 22:31 Hemoglobin 9.1 g/dL 9.0 g/dL Hematocrit 27.9 % 26.8 % Bedside Glucose 132 mg/dl 151 mg/dl Test 09/06/16 05:08 09/06/16 05:15 09/06/16 11:37 09/06/16 11:42 White Blood Count 8.18 K/uL Red Blood Count 3.04 M/uL Hemoglobin 9.1 g/dL 9.0 g/dL Hematocrit 27.3 % 26.7 % Mean Corpuscular Volume 89.8 fL Mean Corpuscular Hemoglobin 29.9 pg Mean Corpuscular Hemoglobin Concent 33.3 g/dl Platelet Count 150 K/uL Mean Platelet Volume 10.0 fL Neutrophils (%) (Auto) 68.1 % Lymphocytes (%) (Auto) 12.8 % Monocytes (%) (Auto) 14.7 % Eosinophils (%) (Auto) 3.4 % Basophils (%) (Auto) 0.4 % Neutrophils # (Auto) 5.57 K/uL Lymphocytes # (Auto) 1.05 K/uL Monocytes # (Auto) 1.20 K/uL Eosinophils # (Auto) 0.28 K/uL Basophils # (Auto) 0.03 K/uL RDW Standard Deviation 60.4 fL RDW Coefficient of Variation 18.9 % Immature Granulocyte % (Auto) 0.6 % Immature Granulocyte # (Auto) 0.05 K/uL Sodium Level 142 mmol/L Potassium Level 4.3 mmol/L Chloride Level 101 mmol/L Carbon Dioxide Level 27 mmol/L Anion Gap 14.0 mmol/L Blood Urea Nitrogen 50 mg/dl Creatinine 4.90 mg/dl Est Creatinine Clear Calc Drug Dose 9.0 ml/min Estimated GFR () 8.7 Estimated GFR (Non- 7.5 BUN/Creatinine Ratio 10.3 Random Glucose 116 mg/dl Calcium Level 8.6 mg/dl Phosphorus Level 4.9 mg/dl Magnesium Level 2.9 mg/dl Total Creatine Kinase 33 U/L Creatine Kinase MB 1.3 ng/ml Creatine Kinase MB Ratio 3.9 Troponin I 0.111 ng/ml Bedside Glucose 131 mg/dl 145 mg/dl Diagnostic Results Reviewed the following studies and agree with interpretation as follows: Patient Name: ANANTH SIMPSON Unit Number: [id number] Dictated: 09/06/16723 Transcribed: 09/06/16723 ARG Printed Date/Time: [~ rep prt dt]/[~ rep prt tm] [~ rep ct labl] - [~ rep ct ivnm] [facility] [place] [place] [address] Dictated: 09/06/16723 Transcribed: 09/06/16723 ARG Printed Date/Time: [~ rep prt dt]/[~ rep prt tm] [~ rep ct labl] - [~ rep ct ivnm] Patient: ANANTH SIMPSON Address1: [address] Rec: [id number] Address2: Acct ID: [id number] [facility] Zip: [place] [id number] Date: 1930 Sex: F Room/Bed: [facility] Ref Phy: Cooper Hart M.D. SC: KEVIN Att Phy: Max Desir MD, PhD Report #: [id number] [place] Phy: Vipul Hernandez M.D. Test: [id number] Admit Phy: Max Desir MD, PhD Diaper Machine Tender: JOHN Interpreting Phy: Bob Heart M.D. Diagnosis: RECTAL BLEEDING Ordering Phy: Jaspal Anne MD Service Date: 09/06/16 Admit Date: 09/04/1700/02/17 MNE: [id number] CONF: DICTATED BY: Bob Heart M.D.]] CC: Vipul Hernandez M.D. Hester, Christopher E., M.D. Lin, Daniel Y., MD, PhD Jaspal Anne MD Endcc: [~ rep ct add3]] CHEST ONE VIEW PORTABLE CLINICAL HISTORY: Hypoxia. Congestive failure. COMPARISON STUDY: 09/05/2016 FINDINGS: 2 right-sided central venous catheters are again visualized. The heart is enlarged. There are postsurgical changes of a midline sternotomy. There are small bilateral pleural effusions. There is persistent interstitial pulmonary edema. Bilateral hilar prominence, is likely secondary to prominent pulmonary arteries.[ There is a nasogastric tube which passes into the stomach. There is a 13 mm nodule at the right lung base. This was present on prior studies. IMPRESSION: Cardiomegaly, pulmonary edema, and bilateral pleural effusions. There is probable slight improvement when compared the preceding study. Stable 13 mm right basilar nodule Electronically signed by: Bob Heart M.D. 09/06/2016 7:26 AM The status of this report is Signed. Draft = Not yet reviewed or approved by Radiologist. Signed = Reviewed and approved by Radiologist. <AttendingPhy>Max Desir MD, PhD</AttendingPhy> <FamilyPhy>Cooper Hart M.D.</FamilyPhy> <PrimaryPhy>Vipul Hernandez M.D.</PrimaryPhy> <UnitNumber>[id number]</UnitNumber> <VisitNumber>[id number]</VisitNumber> < PatientName>ANANTH SIMPSON</PatientName> <DateOfBirth>1930</DateOfBirth> < Location>[facility]</Location> <ServiceDate>09/04/16</ServiceDate> <MNE>ESINDI</MNE > <OrderingPhy>Jaspal Anne MD</OrderingPhy> <OrderingPhyMNE>f rep ord dr bae</ OrderingPhyMNE> <DictatingPhyMNE>f rep dict dr bae</DictatingPhyMNE> <CCListMNE> f rep ct mne</CCListMNE> <AdmittingPhyMNE>f pt admit dr bae</AdmittingPhyMNE> < AttendingPhyMNE>f pt attend dr bae</AttendingPhyMNE> <ConsultingPhyMNE>f pt consult dr bae</ConsultingPhyMNE> <FamilyPhyMNE>f pt fam dr bae</FamilyPhyMNE> <OtherPhyMNE>f pt other dr bae</OtherPhyMNE> < PrimaryPhyMNE>f pt prim care dr bae</PrimaryPhyMNE> <ReferringPhyMNE>f pt referring dr bae</ReferringPhyMNE> Assessment and Plan 86 y/o female with a history of ESRD with HD, anemia of chronic disease, CHF, CAD, FL, DM II, HTN, paroxysmal atrial fibrillation, HLD and gout who presented to the ED on 09/04 with diarrhea and bright red blood per rectum. Pt. is on ASA and Plavix. CXR shows small left pleural effusion improved from prior study in 07/2016, mild lower lung interstitial thickening. EKG shows new inverted T waves and ST depressions in inferior and lateral leads. Hgb 9.7 upon arrival, PLT stable at 212. -Admit to ICU for rectal bleeding, h/o cardiac disease and a-fib -GI consulted, appreciate recs. EGD and colonoscopy today with Dr. Bowers. 5 mm sessile polyp found in cecum, biopsied. Diverticula throughout entire colon. Non-bleeding internal hemorrhoids. EGD showed no esophageal abnormalities, but proceeded with dilation at GE junction due to dysphagia. Stomach and duodenum normal. -Nephro consulted for dialysis, pt on // schedule. Pt due for dialysis today. -Full liquid diet, advance as tolerated -Pt. received total 4 units PRBC, Hgb remains stable in 9s -ED ordered cryoprecipitate and platelets for pt., however PLT count stable at [address] upon arrival. Discuss[address] with Dr. Desir, not indicated for pt at this time. Orders were already in process at the time of examination and could not be canceled. -Check serial H&H q6h x4 -D/C IVF, CXR shows some pulmonary edema and pleural effusions -Trend serial cardiac enzymes q8h x 3 due to ischemic changes in EKG: troponin 0.046-->0.058-->0.057. Repeat troponin 0.11. ESRD likely contributing. -Repeat EKG q am and with chest pain -Hold ASA and Plavix -Stable, hopefully can transfer to telemetry tomorrow ESRD on HD--due for dialysis // -Nephro on board -Continue PhosLo 667 mg PO TID with meals Anemia of chronic disease--baseline Hgb around 11 -Hgb 9.7 upon arrival -Hgb 9.1 on 09/06, has remained stable -4 units PRBC transfused as above -Continue to monitor with serial H&H H/o CHF -Hold Bumex for now Diabetes mellitus type 2--Last HgbA1c checked on 07/06/16 was 5.5 -Insulin sliding scale -Check BSGs q ac and qhs, check q6h while NPO HTN--hypotensive while in ED, improving with fluids and blood -Hold Imdur and metoprolol HLD -Continue Crestor 10 mg PO qd Gout -Hold allopurinol for now DVT prophylaxis -Hold chemical prophylaxis for now due to bleeding, scope tomorrow -JASPAL lund and SCDs Code Status -Level I, FULL RESUSCITATION STATUS
[2016-09-06 16:42] LABS: HEMATOCRIT 26.2 % (37-47)
[2016-09-06] MEDS: ROSUVASTATIN CALCIUM 10 MG TAB PO SCH (21:40)
[2016-09-07] VITALS (18 sets, daily range): BP systolic 96–166; BP diastolic 24–73; PULSE 72–93; TEMP 36.4–36.8; O2SAT 82–100
[2016-09-07 06:06] LABS: BASO % 0.3 %; BASO ABS # 0.02 K/uL (0-0.2); EOS % 1.8 %; IG% 0.6 %; LYMPH % 14.6 %; LYMPH ABS # 1.06 K/uL (1.2-3.4); MEAN CELL VOLUME 91.2 fL (80-100); MEAN CORPUSCULAR HEMOGLOBIN 29.7 pg (25-34); MEAN CORPUSCULAR HGB CONC 32.6 g/dl (32-36); MEAN PLATELET VOLUME 9.9 fL (7.4-10.4); NEUT % 66.7 %; PLATELET COUNT 140 K/uL (130-400); RED BLOOD COUNT 2.96 M/uL (4.2-5.4); WHITE BLOOD COUNT 7.24 K/uL (4.8-10.8)
[2016-09-07 06:38] LABS: COMPLETE YES
[2016-09-07] MEDS: INSULIN ASPART 100 UNITS/ML 3 ML PEN SC SCH ×4 (06:45→20:48)
--- NOTE | 2016-09-07 07:13 | DIAGNOSTIC IMAGING REPORT ---
CHEST ONE VIEW PORTABLE CLINICAL HISTORY: Pulmonary edema; s/p dialysis COMPARISON STUDY: Chest radiograph September 06, 2016. FINDINGS: Right internal jugular catheters remain in place. There is no pneumothorax. Small bilateral pleural effusions persist. Cardiomegaly is unchanged. Pulmonary edema has slightly progressed. There are bibasilar opacities, left greater than right. IMPRESSION: 1. Slight progression of pulmonary edema. 2. Small bilateral pleural effusions with associated bibasilar opacities which could reflect atelectasis or less likely consolidation. Electronically signed by: Timmy Candelaria M.D. 09/07/2016 7:11 AM
[2016-09-07] MEDS: ALBUT/IPRATROP 3MG/0.5MG NEB 3 ML VIAL INH SCH ×2 (07:51→20:37)
[2016-09-07] MEDS: PANTOprazole INJ 40 MG in SYRINGE 0 ML IV SCH (08:36)
[2016-09-07] MEDS: CALCIUM ACETATE 667MG GELCAP PO SCH ×3 (08:36→16:28)
[2016-09-07] MEDS: AMIODARONE 200 MG TAB PO SCH (08:37)
[2016-09-07 08:40] LABS: BUN/CREATININE RATIO 7.1 (10-20); CALCIUM 7.8 mg/dl (8.5-10.1); CKMB/CK RATIO 5.3 (0-3.0); CREATININE 2.8 mg/dl (0.60-1.20); MAGNESIUM 2.5 mg/dl (1.8-2.4); PHOSPHORUS 2.9 mg/dl (2.5-4.9); POTASSIUM 3.5 mmol/L (3.5-5.1)
--- NOTE | 2016-09-07 09:35 | Nephrology Progress Note ---
Nephrology Progress Note Date of Service Sep 07, 2016. Chief Complaint To provide inpatient HD for this patient with ESRD and assist with medical management. Patient was admitted with GI bleeding. Subjective Ms. Rahman was seen & examined in the ICU this morning. Her EGD and colonoscopy reports were reviewed. No active bleeding was identified. The patient has ESRD due to diabetic nephropathy and cardiorenal syndrome. She was dialyzed yesterday for 4 hours with 2.3 L UF. Ms. Simpson's medical history is significant for AODM, HTN, PVD w/ bilateral carotid arterial disease, ASCVD s/p CABG x 4 1996 and OA. The patient denies overt blood loss overnight. She was able to ambulate in her hospital room yesterday evening. Review of Systems Constitutional: No fever Cardiovascular: No chest pain Respiratory: No dyspnea at rest Abdomen: No hematochezia, No melena, No pain Extremities: No leg edema A complete review of systems was performed. Pertinent positives are noted above. All other systems are negative. Vital Signs Last 8 Hrs Date Time Temp Pulse Resp B/P Pulse Ox O2 Delivery O2 Flow Rate FiO2 09/07/16 08:00 Room Air 09/07/16 07:52 72 22 98 Nasal Cannula 2.0 09/07/16 05:59 80 18 166/70 100 09/07/16 04:59 75 21 133/72 97 09/07/16 04:00 36.8 09/07/16 04:00 99 Nasal Cannula 2.0 09/07/16 03:58 83 17 120/58 99 09/07/16 02:59 82 23 103/58 99 09/07/16 01:58 89 24 113/58 98 I & O 24-Hour Column 09/07/16 08:00 Intake Total 880 ml Output Total 2250 ml Balance -1370 ml Last Recorded Weight Weight (Kilograms): 80.500 Physical Exam General Appearance: no apparent distress Head: normocephalic, atraumatic Eyes: PERRL, EOMI Neck: no adenopathy Respiratory/Chest: lungs clear Cardiovascular: regular rate, rhythm Abdomen/GI: normal bowel sounds, non tender, soft Extremities/Musculoskelatal: no calf tenderness, no pedal edema, + pertinent finding (left upper arm AVF + bruit) Neurologic/Psych: alert, oriented x 3 Family History Asthma Cancer SISTER (Breast cancer) Chronic kidney disease MOTHER Diabetes mellitus FATHER Heart disease FATHER Hypertension FATHER MOTHER Kidney disease Kidney stones Stroke Mother - CKD Social History Smoking Status: Never smoker Smokeless Tobacco Use: No Alcohol Use: none Drug Use: none Marital Status: Housing Status: lives with family (with granddaughter) Occupation: retired . Retired. Never a smoker. Laboratory Results Past 24 Hours 09/06/16 11:42 09/06/16 16:25 09/07/16 05:24 Red Blood Count 2.96, Mean Corpuscular Volume 91.2, Mean Corpuscular Hemoglobin 29.7, Mean Corpuscular Hemoglobin Concent 32.6, Mean Platelet Volume 9.9, Neutrophils (%) (Auto) 66.7, Lymphocytes (%) (Auto) 14.6, Monocytes (%) (Auto) 16.0, Eosinophils (%) (Auto) 1.8, Basophils (%) (Auto) 0.3, Neutrophils # (Auto ) 4.83, Lymphocytes # (Auto) 1.06, Monocytes # (Auto) 1.16, Eosinophils # (Auto ) 0.13, Basophils # (Auto) 0.02 09/07/16 05:24 Test 09/06/16 11:37 09/06/16 16:17 09/06/16 20:35 09/06/16 20:50 Bedside Glucose 145 mg/dl (70-90) 195 mg/dl (70-90) 103 mg/dl (70-90) 100 mg/dl (70-90) Test 09/07/16 05:24 09/07/16 06:30 White Blood Count 7.24 K/uL (4.8-10.8) Red Blood Count 2.96 M/uL (4.2-5.4) Hemoglobin 8.8 g/dL (12.0-16.0) Hematocrit 27.0 % (37-47) Mean Corpuscular Volume 91.2 fL (80-100) Mean Corpuscular Hemoglobin 29.7 pg (25-34) Mean Corpuscular Hemoglobin Concent 32.6 g/dl (32-36) Platelet Count 140 K/uL (130-400) Mean Platelet Volume 9.9 fL (7.4-10.4) Neutrophils (%) (Auto) 66.7 % Lymphocytes (%) (Auto) 14.6 % Monocytes (%) (Auto) 16.0 % Eosinophils (%) (Auto) 1.8 % Basophils (%) (Auto) 0.3 % Neutrophils # (Auto) 4.83 K/uL (1.4-6.5) Lymphocytes # (Auto) 1.06 K/uL (1.2-3.4) Monocytes # (Auto) 1.16 K/uL (0.11-0.59) Eosinophils # (Auto) 0.13 K/uL (0-0.5) Basophils # (Auto) 0.02 K/uL (0-0.2) RDW Standard Deviation 59.4 fL (36.4-46.3) RDW Coefficient of Variation 18.4 % (11.5-14.5) Immature Granulocyte % (Auto) 0.6 % Immature Granulocyte # (Auto) 0.04 K/uL (0.00-0.02) Red Blood Cell Morphology Unremarkable Anion Gap 9.0 mmol/L (3-11) Est Creatinine Clear Calc Drug Dose 15.7 ml/min Estimated GFR () 17.1 Estimated GFR (Non- 14.8 BUN/Creatinine Ratio 7.1 (10-20) Calcium Level 7.8 mg/dl (8.5-10.1) Phosphorus Level 2.9 mg/dl (2.5-4.9) Magnesium Level 2.5 mg/dl (1.8-2.4) Total Creatine Kinase 30 U/L (26-192) Creatine Kinase MB 1.6 ng/ml (0.5-3.6) Creatine Kinase MB Ratio 5.3 (0-3.0) Troponin I 0.618 ng/ml (0-0.045) Bedside Glucose 137 mg/dl (70-90) Allergies Coded Allergies: No Known Allergies (Unverified , 09/04/16) Medications Current Inpatient Medications Medications (Trade) Dose Ordered Sig/Janeth Route Start Time Stop Time Status Last Admin Dose Admin Acetaminophen (Tylenol Tab) 650 mg Q4H PRN PO 09/04/16 13:15 10/04/16 13:14 09/07/16 01:53 650 MG Al Hydrox/Mg Hydrox/Simethicone (Maalox Max Susp) 15 ml Q4H PRN PO 09/04/16 13:15 10/04/16 13:14 Magnesium Hydroxide (Milk Of Magnesia Susp) 30 ml Q12H PRN PO 09/04/16 13:15 10/04/16 13:14 Polyethylene (Miralax Powder Packet) 17 gm DAILY PRN PO 09/04/16 13:15 10/04/16 13:14 Insulin Aspart (novoLOG ASPART) SLIDING SCALE If C... ACHS SC 09/04/16 16:00 10/04/16 15:59 Glucose (Glucose 40% Gel) 15-30 GRAMS 15 GRAMS... UD PRN PO 09/04/16 13:15 10/04/16 13:14 Glucose (Glucose Chew Tab) 4-8 Tablets 4 Tabl... UD PRN PO 09/04/16 13:15 10/04/16 13:14 Dextrose (Dextrose 50% 50ML Syringe) 25-50ML OF 50% DW IV FOR... UD PRN IV 09/04/16 13:15 10/04/16 13:14 Glucagon (Glucagon Inj) 1 mg UD PRN SQ 09/04/16 13:15 10/04/16 13:14 Albuterol (Ventolin Hfa Inhaler) 2 puffs QID PRN INH 09/04/16 13:15 10/04/16 13:14 Amiodarone HCl (Cordarone Tab) 200 mg DAILY PO 09/05/16 09:00 10/05/16 08:59 09/07/16 08:37 200 MG Calcium Acetate (Phoslo Cap) 667 mg TIDM PO 09/04/16 17:28 10/04/16 17:59 09/07/16 08:36 667 MG Albuterol/ Ipratropium (Duoneb) 3 ml Q12R INH 09/04/16 20:00 10/04/16 19:59 09/07/16 07:51 3 ML Nitroglycerin (Nitrostat Tab) 0.4 mg UD PRN UT 09/04/16 13:15 10/04/16 13:14 Rosuvastatin Calcium 10 mg 10 mg HS PO 09/04/16 21:00 10/04/16 20:59 09/06/16 21:40 10 MG Pantoprazole Sodium/Syringe (Protonix Inj/ Syringe) 10 ml @ 5 mls/min DAILY@,21 IV 09/04/16 21:00 10/04/16 20:59 09/07/16 08:36 5 MLS/MIN Ioversol (Optiray 320) 111 ml UD PRN IV 09/04/16 21:00 09/08/16 20:59 Heparin Sodium (Porcine) (Heparin Sq 5000 Unit/0.5ml) 5,000 unit Q12 SQ 09/07/16 09:00 10/07/16 08:59 Impression (1) GI bleed (2) Anemia (3) ESRD (end stage renal disease) on dialysis (4) NSTEMI (non-ST elevated myocardial infarction) Patient admitted for evaluation of GI bleeding. She has ASCVD and has been on ASA & Plavix chronically as an outpatient. She has required transfusion w/ 4 U PRBC since admission. She currently denies angina or dyspnea. PMH - ESRD on HD MWF at [facility], ASCVD s/p CABG x 4 1996, cardiac cath 2006 complicated by pseudoaneurysm of the right femoral artery requiring emergency surgical repair, AODM, HTN, PVD w/ carotid stenosis, h/o nephrolithiasis, cholelithiasis, OA Recommendations END STAGE RENAL DISEASE: -- Will schedule next HD for 09/08/16 -- I have called the [facility] HD unit. Patient is on low dose heparin with outpatient dialysis treatments. -- Monitor serial PRP ANEMIA: -- Patient has been transfused 4 U PRBC since admission. Hgb is now stable at ~ 9.9. Continue to monitor -- EGD & colonoscopy results reviewed this am. No active site of GI bleeding identified. No gastritis or gastric ulcer -- Continue PPI therapy -- Will provide RANJAN w/ HD treatments ASCVD: -- Patient denies angina -- Mild elevation in troponin -- Recommend consultation w/ cardiology
--- NOTE | 2016-09-07 10:23 | Critical Care Progress Note ---
Critical Care Progress Note Date of Service Sep 07, 2016. Attending Dr. Lyons Subjective No complaints this morning Tolerating progression of diet Is ambulating to toilet with assistance; has not had formal PT eval yet No nursing issues overnight Objective Physical Exam: General: Comfortable, no apparent distress Eyes: \PERRL, normal EOM bilaterally ENT: \Mucous membranes moist, pharynx clear, TM clear Neck: No JVD, no lymphadenopathy, no thyromegaly, right sided IJ introducer with central line; subclavian hemodialysis catheter, overlying skin intact; no erythema Lungs: Reduced crackles L > R, no wheezing, no crackles Heart: S1 and S2 with no added sounds or murmurs Abdomen: Soft, non-tender, non-distended, normal bowel sounds in all 4 quadrants Extremities: Diffuse ecchymoses on right extremity; maturing AV fistula in left arm; No pitting edema, no asymmetric swelling, patient has mild calf tenderness bilaterally; notes that the calf pain is long-standing for many years Neuro: AO x 3, responds to commands appropriately, normal mood and affect Assessment & Plan Pleasant 86 year old acute GI bleed on the background of the following medical issues - Diastolic CHF, EF 50% - ESRD on dialysis M, W, F - Type 2 Diabetes - Coronary Artery Disease: History of CABG 1996, RCA stenting in 2006 - Hypertension. EGD and colonoscopies revealed no active bleeding. She is also post- hemodialysis. The plan for her is as follows: Neuro - Remains AO x 3; ICU CAM negative Respiratory Hypoxic respiratory failure - Weaned to room air this morning; will observe for stability of O2 saturations - Denies feeling short of breath at this time; crackles L > R improved today; CXR reported as progression of edema with bilateral effusions Had dialysis yesterday; 2 L take off + additional single dose of Bumex 1 mg IV Will re-start home dose of Bumex today Would be due for hemodialysis tomorrow - Continue Albuterol per home medications - Continue Duoneb q 12 hours Cardiovascular - BP stable 100-110/50s; mild reduced compared to previously likely secondary to s/p dialysis - HR 80-90s yesterday; mildly up from previous HR of 60-70s - No IV infusions required currently for hemodynamic support Prolonged QTc - Remains prolonged today, up to 536 from 525 yesterday and 518 the previous day - No apparent offending agents in medication list. New EKG changes with troponin increase - Denies chest pain; repeat EKG this morning unchanged, revealing stable ST depression and T wave inversion inferolaterally - Troponins increased from 0.1 --> 0.6 today; no obvious chest pain and remains hemodynamically stable - In the setting of ESRD, increased troponin likely secondary to impaired renal clearance though has continued to increase despite dialysis yesterday - Will obtain cardiology consult Coronary Artery Disease - Restart ASA and Plavix today as H&H remains stable - Continue Rosuvastatin Gastrointestinal GI Bleed - Pantoprazole 40 mg BID - GI consulted; recommendations appreciated; Endoscopy reports reviewed EGD: normal grossly; did have dilatation at gastroesophageal junction - H&H stable; Hb 8.9 this morning GI Prophylaxis: Protonix as above Bowel Regimen: Miralax PRN and Milk of Magnesium for constipation Genitourinary ESRD - Cr improved to baseline; is 2.8 today after HD yesterday - Patient notes she gets dialysis M, W, F - Nephrology recommendations appreciated. Electrolytes - Na 142, K 43.5, Cl 101, CO2 32, BUN 20, UO 2527 yesterday; weight down 81.8 --> 80.56 - Patient is 2 L down from HD yesterday Discontinue Farris catheter Endocrine Type 2 Diabetes Mellitus - Patient on Aspart SSI; Goal 140-180; CF 30 - Most recent BSG 138 - BSG ranging 100-200; no change in regimen at this time Heme/ID - Tmax 36.9; WBC 7 stable; no evidence of infection Acute Blood Loss secondary to GI bleed - Hb 8.9 this morning; has been stable in the 9s/high 8s for the past 72 hours - Spread checks to morning labs DVT Prophylaxis - No evidence of bleeding at this time or on endoscopy reports - Refusing SCDs - Restart Heparin Code Status - Level I Code Disposition - Patient can be transferred from ICU today - PT notes that rehab would be of benefit to the patient; have discussed this with the patient, who is reluctant for reasons of coverage but is overall receptive to the idea of going to rehab temporarily; notes going to [facility] and deriving benefit, but had to pay for stay out of pocket, due to insurance reasons. We will speak to case management regarding barriers to having her to go to short-term rehab facility. Resident Physician Supervision Note: Dr. Anne was resident physician during care of patient. I separately evaluated patient and did history and exam. I discussed the case with the resident and generally agree with the findings and plan. Patient improved after hemodialysis today, discontinue central venous access, reviewed cardiology consultation, able to transfer to telemetry status Documented By: Elio Lyons, Data Medications: Current Inpatient Medications Medications (Trade) Dose Ordered Sig/Janeth Route Start Time Stop Time Status Last Admin Dose Admin Acetaminophen (Tylenol Tab) 650 mg Q4H PRN PO 09/04/16 13:15 10/04/16 13:14 09/07/16 01:53 650 MG Al Hydrox/Mg Hydrox/Simethicone (Maalox Max Susp) 15 ml Q4H PRN PO 09/04/16 13:15 10/04/16 13:14 Magnesium Hydroxide (Milk Of Magnesia Susp) 30 ml Q12H PRN PO 09/04/16 13:15 10/04/16 13:14 Polyethylene (Miralax Powder Packet) 17 gm DAILY PRN PO 09/04/16 13:15 10/04/16 13:14 Insulin Aspart (novoLOG ASPART) SLIDING SCALE If C... ACHS SC 09/04/16 16:00 10/04/16 15:59 Glucose (Glucose 40% Gel) 15-30 GRAMS 15 GRAMS... UD PRN PO 09/04/16 13:15 10/04/16 13:14 Glucose (Glucose Chew Tab) 4-8 Tablets 4 Tabl... UD PRN PO 09/04/16 13:15 10/04/16 13:14 Dextrose (Dextrose 50% 50ML Syringe) 25-50ML OF 50% DW IV FOR... UD PRN IV 09/04/16 13:15 10/04/16 13:14 Glucagon (Glucagon Inj) 1 mg UD PRN SQ 09/04/16 13:15 10/04/16 13:14 Albuterol (Ventolin Hfa Inhaler) 2 puffs QID PRN INH 09/04/16 13:15 10/04/16 13:14 Amiodarone HCl (Cordarone Tab) 200 mg DAILY PO 09/05/16 09:00 10/05/16 08:59 09/07/16 08:37 200 MG Calcium Acetate (Phoslo Cap) 667 mg TIDM PO 09/04/16 17:28 10/04/16 17:59 09/07/16 08:36 667 MG Albuterol/ Ipratropium (Duoneb) 3 ml Q12R INH 09/04/16 20:00 10/04/16 19:59 09/07/16 07:51 3 ML Nitroglycerin (Nitrostat Tab) 0.4 mg UD PRN UT 09/04/16 13:15 10/04/16 13:14 Rosuvastatin Calcium 10 mg 10 mg HS PO 09/04/16 21:00 10/04/16 20:59 09/06/16 21:40 10 MG Pantoprazole Sodium/Syringe (Protonix Inj/ Syringe) 10 ml @ 5 mls/min DAILY@ IV 09/04/16 21:00 10/04/16 20:59 09/07/16 08:36 5 MLS/MIN Ioversol (Optiray 320) 111 ml UD PRN IV 09/04/16 21:00 09/08/16 20:59 Heparin Sodium (Porcine) (Heparin Sq 5000 Unit/0.5ml) 5,000 unit Q12 SQ 09/07/16 09:00 10/07/16 08:59 I & O: 24-Hour Column 09/07/16 08:00 Intake Total 880 ml Output Total 2250 ml Balance -1370 ml Vital Signs: Date Time Temp Pulse Resp B/P Pulse Ox O2 Delivery O2 Flow Rate FiO2 09/07/16 08:00 Room Air 09/07/16 07:52 72 22 98 Nasal Cannula 2.0 09/07/16 05:59 80 18 166/70 100 09/07/16 04:59 75 21 133/72 97 09/07/16 04:00 36.8 09/07/16 04:00 99 Nasal Cannula 2.0 09/07/16 03:58 83 17 120/58 99 09/07/16 02:59 82 23 103/58 99 09/07/16 01:58 89 24 113/58 98 09/07/16 00:58 93 21 117/58 98 09/07/16 00:01 93 23 109/55 96 09/06/16 23:59 36.8 09/06/16 23:59 96 Nasal Cannula 2.0 09/06/16 22:58 92 21 115/50 100 09/06/16 21:59 85 23 106/50 100 09/06/16 21:51 36.8 85 122/54 09/06/16 21:51 85 25 114/47 100 09/06/16 21:33 82 21 122/50 100 09/06/16 21:30 82 117/52 09/06/16 21:29 76 23 125/51 100 09/06/16 21:15 76 120/57 09/06/16 21:14 74 25 120/57 98 09/06/16 21:00 75 119/50 09/06/16 20:59 76 19 112/61 99 09/06/16 20:45 71 121/45 09/06/16 20:44 72 23 121/45 99 09/06/16 20:30 72 128/51 09/06/16 20:30 76 25 113/53 98 09/06/16 20:29 76 23 115/45 99 09/06/16 20:17 73 134/46 09/06/16 20:14 75 26 134/46 99 09/06/16 20:00 72 139/56 09/06/16 20:00 100 Nasal Cannula 2.0 09/06/16 20:00 36.6 09/06/16 19:59 72 18 139/59 100 09/06/16 19:45 71 142/49 09/06/16 19:44 72 23 142/54 100 09/06/16 19:30 72 136/54 09/06/16 19:29 74 25 136/54 100 09/06/16 19:15 73 138/55 09/06/16 19:13 74 18 144/60 100 09/06/16 19:00 73 133/64 09/06/16 18:45 82 130/59 09/06/16 18:30 76 124/68 09/06/16 18:15 81 121/62 09/06/16 18:00 79 119/59 09/06/16 17:58 72 23 131/56 99 Nasal Cannula 2.0 09/06/16 17:45 81 127/61 09/06/16 17:30 81 115/47 09/06/16 17:25 36.9 68 113/69 09/06/16 16:00 Room Air 09/06/16 15:58 36.7 76 22 113/42 97 Nasal Cannula 2.0 09/06/16 13:59 77 22 116/48 98 Nasal Cannula 2.0 09/06/16 12:00 Room Air 09/06/16 11:58 36.7 75 19 114/48 99 Nasal Cannula 2.0 09/06/16 11:25 78 20 106/36 97 Nasal Cannula 2 09/06/16 11:20 77 20 109/42 97 Nasal Cannula 2 09/06/16 11:13 77 20 106/38 97 Nasal Cannula 2 09/06/16 11:08 36.3 78 20 108/43 97 Nasal Cannula 2 09/06/16 10:55 78 20 104/42 97 Nasal Cannula 2 09/06/16 10:03 36.3 78 20 124/56 97 Nasal Cannula 2 09/06/16 09:51 77 27 120/50 92 Room Air Laboratory Results: Last 24 Hours Test 09/06/16 11:37 09/06/16 11:42 09/06/16 16:17 09/06/16 16:25 Bedside Glucose 145 mg/dl 195 mg/dl Hemoglobin 9.0 g/dL 8.6 g/dL Hematocrit 26.7 % 26.2 % Test 09/06/16 20:35 09/06/16 20:50 09/07/16 05:24 09/07/16 06:30 Bedside Glucose 103 mg/dl 100 mg/dl 137 mg/dl White Blood Count 7.24 K/uL Red Blood Count 2.96 M/uL Hemoglobin 8.8 g/dL Hematocrit 27.0 % Mean Corpuscular Volume 91.2 fL Mean Corpuscular Hemoglobin 29.7 pg Mean Corpuscular Hemoglobin Concent 32.6 g/dl Platelet Count 140 K/uL Mean Platelet Volume 9.9 fL Neutrophils (%) (Auto) 66.7 % Lymphocytes (%) (Auto) 14.6 % Monocytes (%) (Auto) 16.0 % Eosinophils (%) (Auto) 1.8 % Basophils (%) (Auto) 0.3 % Neutrophils # (Auto) 4.83 K/uL Lymphocytes # (Auto) 1.06 K/uL Monocytes # (Auto) 1.16 K/uL Eosinophils # (Auto) 0.13 K/uL Basophils # (Auto) 0.02 K/uL RDW Standard Deviation 59.4 fL RDW Coefficient of Variation 18.4 % Immature Granulocyte % (Auto) 0.6 % Immature Granulocyte # (Auto) 0.04 K/uL Red Blood Cell Morphology Unremarkable Sodium Level 142 mmol/L Potassium Level 3.5 mmol/L Chloride Level 101 mmol/L Carbon Dioxide Level 32 mmol/L Anion Gap 9.0 mmol/L Blood Urea Nitrogen 20 mg/dl Creatinine 2.80 mg/dl Est Creatinine Clear Calc Drug Dose 15.7 ml/min Estimated GFR () 17.1 Estimated GFR (Non- 14.8 BUN/Creatinine Ratio 7.1 Random Glucose 138 mg/dl Calcium Level 7.8 mg/dl Phosphorus Level 2.9 mg/dl Magnesium Level 2.5 mg/dl Total Creatine Kinase 30 U/L Creatine Kinase MB 1.6 ng/ml Creatine Kinase MB Ratio 5.3 Troponin I 0.618 ng/ml
--- NOTE | 2016-09-07 10:31 | Gastroenterology Progress Note ---
Progress Note Date of Service: Sep 07, 2016 Subjective Pt evaluation today including: conversation w/ patient, physical exam, chart review, lab review, review of inpatient medication list Patient reports feeling well from a GI standpoint today. No abdominal pain, n/v , bowel irregularities. No further GIB. EGD and colonoscopy yesterday without any active bleeding source. Continues Protonix 40 mg IV BID. H&H has remained stable at 8.6/26.2 yesterday and 8.8/27.0 today. Review of Systems Constitutional: No problem reported Respiratory: No problem reported Cardiac: No problem reported Abdomen: + see HPI Medications Current Inpatient Medications Medications (Trade) Dose Ordered Sig/Janeth Route Start Time Stop Time Status Last Admin Dose Admin Acetaminophen (Tylenol Tab) 650 mg Q4H PRN PO 09/04/16 13:15 10/04/16 13:14 09/07/16 01:53 650 MG Al Hydrox/Mg Hydrox/Simethicone (Maalox Max Susp) 15 ml Q4H PRN PO 09/04/16 13:15 10/04/16 13:14 Magnesium Hydroxide (Milk Of Magnesia Susp) 30 ml Q12H PRN PO 09/04/16 13:15 10/04/16 13:14 Polyethylene (Miralax Powder Packet) 17 gm DAILY PRN PO 09/04/16 13:15 10/04/16 13:14 Insulin Aspart (novoLOG ASPART) SLIDING SCALE If C... ACHS SC 09/04/16 16:00 10/04/16 15:59 Glucose (Glucose 40% Gel) 15-30 GRAMS 15 GRAMS... UD PRN PO 09/04/16 13:15 10/04/16 13:14 Glucose (Glucose Chew Tab) 4-8 Tablets 4 Tabl... UD PRN PO 09/04/16 13:15 10/04/16 13:14 Dextrose (Dextrose 50% 50ML Syringe) 25-50ML OF 50% DW IV FOR... UD PRN IV 09/04/16 13:15 10/04/16 13:14 Glucagon (Glucagon Inj) 1 mg UD PRN SQ 09/04/16 13:15 10/04/16 13:14 Albuterol (Ventolin Hfa Inhaler) 2 puffs QID PRN INH 09/04/16 13:15 10/04/16 13:14 Amiodarone HCl (Cordarone Tab) 200 mg DAILY PO 09/05/16 09:00 10/05/16 08:59 09/07/16 08:37 200 MG Calcium Acetate (Phoslo Cap) 667 mg TIDM PO 09/04/16 17:28 10/04/16 17:59 09/07/16 08:36 667 MG Albuterol/ Ipratropium (Duoneb) 3 ml Q12R INH 09/04/16 20:00 10/04/16 19:59 09/07/16 07:51 3 ML Nitroglycerin (Nitrostat Tab) 0.4 mg UD PRN UT 09/04/16 13:15 10/04/16 13:14 Rosuvastatin Calcium 10 mg 10 mg HS PO 09/04/16 21:00 10/04/16 20:59 09/06/16 21:40 10 MG Pantoprazole Sodium/Syringe (Protonix Inj/ Syringe) 10 ml @ 5 mls/min DAILY@, IV 09/04/16 21:00 10/04/16 20:59 09/07/16 08:36 5 MLS/MIN Ioversol (Optiray 320) 111 ml UD PRN IV 09/04/16 21:00 09/08/16 20:59 Heparin Sodium (Porcine) (Heparin Sq 5000 Unit/0.5ml) 5,000 unit Q12 SQ 09/07/16 09:00 10/07/16 08:59 Heparin Sodium (Porcine) (Heparin Iv Bolus) 2,000 unit ONE IV 09/08/16 06:00 09/08/16 18:00 Paricalcitol 3 mcg 3 mcg 0600 IV. 09/08/16 06:00 09/08/16 18:00 Epoetin Joshua/ Syringe (Procrit Inj/ Syringe) 0.4 ml @ 1 mls/min 0600 IV. 09/08/16 06:00 09/08/16 18:00 Aspirin (Ecotrin Tab) 81 mg HS PO 09/07/16 21:00 10/07/16 20:59 UNV Bumetanide (Bumex Tab) 1 mg DAILY PO 09/08/16 09:00 10/08/16 08:59 UNV Clopidogrel Bisulfate (plAVix TAB) 75 mg HS PO 09/07/16 21:00 10/07/16 20:59 UNV Objective Vital Signs Date Time Temp Pulse Resp B/P Pulse Ox O2 Delivery O2 Flow Rate FiO2 09/07/16 09:45 85 24 119/42 88 Room Air 09/07/16 09:44 88 32 103/24 88 Room Air 09/07/16 08:58 36.4 85 25 96/43 92 Room Air 09/07/16 08:00 Room Air 09/07/16 07:52 72 22 98 Nasal Cannula 2.0 09/07/16 05:59 80 18 166/70 100 09/07/16 04:59 75 21 133/72 97 09/07/16 04:00 36.8 09/07/16 04:00 99 Nasal Cannula 2.0 09/07/16 03:58 83 17 120/58 99 09/07/16 02:59 82 23 103/58 99 09/07/16 01:58 89 24 113/58 98 09/07/16 00:58 93 21 117/58 98 09/07/16 00:01 93 23 109/55 96 09/06/16 23:59 36.8 09/06/16 23:59 96 Nasal Cannula 2.0 09/06/16 22:58 92 21 115/50 100 09/06/16 21:59 85 23 106/50 100 09/06/16 21:51 36.8 85 122/54 09/06/16 21:51 85 25 114/47 100 09/06/16 21:33 82 21 122/50 100 09/06/16 21:30 82 117/52 09/06/16 21:29 76 23 125/51 100 09/06/16 21:15 76 120/57 09/06/16 21:14 74 25 120/57 98 09/06/16 21:00 75 119/50 09/06/16 20:59 76 19 112/61 99 09/06/16 20:45 71 121/45 09/06/16 20:44 72 23 121/45 99 09/06/16 20:30 72 128/51 09/06/16 20:30 76 25 113/53 98 09/06/16 20:29 76 23 115/45 99 09/06/16 20:17 73 134/46 09/06/16 20:14 75 26 134/46 99 09/06/16 20:00 72 139/56 09/06/16 20:00 100 Nasal Cannula 2.0 09/06/16 20:00 36.6 09/06/16 19:59 72 18 139/59 100 09/06/16 19:45 71 142/49 09/06/16 19:44 72 23 142/54 100 09/06/16 19:30 72 136/54 09/06/16 19:29 74 25 136/54 100 09/06/16 19:15 73 138/55 09/06/16 19:13 74 18 144/60 100 09/06/16 19:00 73 133/64 09/06/16 18:45 82 130/59 09/06/16 18:30 76 124/68 09/06/16 18:15 81 121/62 09/06/16 18:00 79 119/59 09/06/16 17:58 72 23 131/56 99 Nasal Cannula 2.0 09/06/16 17:45 81 127/61 09/06/16 17:30 81 115/47 09/06/16 17:25 36.9 68 113/69 09/06/16 16:00 Room Air 09/06/16 15:58 36.7 76 22 113/42 97 Nasal Cannula 2.0 09/06/16 13:59 77 22 116/48 98 Nasal Cannula 2.0 09/06/16 12:00 Room Air 09/06/16 11:58 36.7 75 19 114/48 99 Nasal Cannula 2.0 09/06/16 11:25 78 20 106/36 97 Nasal Cannula 2 09/06/16 11:20 77 20 109/42 97 Nasal Cannula 2 09/06/16 11:13 77 20 106/38 97 Nasal Cannula 2 09/06/16 11:08 36.3 78 20 108/43 97 Nasal Cannula 2 09/06/16 10:55 78 20 104/42 97 Nasal Cannula 2 Physical Exam General Appearance: no apparent distress Eyes: EOMI Neck: supple Respiratory/Chest: lungs clear, normal breath sounds, no respiratory distress Cardiovascular: regular rate, rhythm, + systolic murmur Abdomen: normal bowel sounds, non tender, soft Neurologic/Psych: alert, normal mood/affect, oriented x 3 Skin: warm/dry Laboratory Results Last 24 Hours Test 1/4/17 11:37 09/06/16 11:42 09/06/16 16:17 09/06/16 16:25 Bedside Glucose 145 mg/dl 195 mg/dl Hemoglobin 9.0 g/dL 8.6 g/dL Hematocrit 26.7 % 26.2 % Test 09/06/16 20:35 09/06/16 20:50 09/07/16 05:24 09/07/16 06:30 Bedside Glucose 103 mg/dl 100 mg/dl 137 mg/dl White Blood Count 7.24 K/uL Red Blood Count 2.96 M/uL Hemoglobin 8.8 g/dL Hematocrit 27.0 % Mean Corpuscular Volume 91.2 fL Mean Corpuscular Hemoglobin 29.7 pg Mean Corpuscular Hemoglobin Concent 32.6 g/dl Platelet Count 140 K/uL Mean Platelet Volume 9.9 fL Neutrophils (%) (Auto) 66.7 % Lymphocytes (%) (Auto) 14.6 % Monocytes (%) (Auto) 16.0 % Eosinophils (%) (Auto) 1.8 % Basophils (%) (Auto) 0.3 % Neutrophils # (Auto) 4.83 K/uL Lymphocytes # (Auto) 1.06 K/uL Monocytes # (Auto) 1.16 K/uL Eosinophils # (Auto) 0.13 K/uL Basophils # (Auto) 0.02 K/uL RDW Standard Deviation 59.4 fL RDW Coefficient of Variation 18.4 % Immature Granulocyte % (Auto) 0.6 % Immature Granulocyte # (Auto) 0.04 K/uL Red Blood Cell Morphology Unremarkable Sodium Level 142 mmol/L Potassium Level 3.5 mmol/L Chloride Level 101 mmol/L Carbon Dioxide Level 32 mmol/L Anion Gap 9.0 mmol/L Blood Urea Nitrogen 20 mg/dl Creatinine 2.80 mg/dl Est Creatinine Clear Calc Drug Dose 15.7 ml/min Estimated GFR () 17.1 Estimated GFR (Non- 14.8 BUN/Creatinine Ratio 7.1 Random Glucose 138 mg/dl Calcium Level 7.8 mg/dl Phosphorus Level 2.9 mg/dl Magnesium Level 2.5 mg/dl Total Creatine Kinase 30 U/L Creatine Kinase MB 1.6 ng/ml Creatine Kinase MB Ratio 5.3 Troponin I 0.618 ng/ml Assessment and Plan Patient is a 86 year old female who presents to the ER with an abrupt onset of rectal bleeding (now resolved) noted to be anemic with an H/H of 9.7/30.2. 1. Diet as tolerated. 2. Continue Pantoprazole 40 mg IV BID. 3. No additional GI work up at this time unless returning overt bleeding or significant drop in H&H. Could consider a GI bleeding scan if that occurs. Agree with ANGELINE Montalvo as above Abd: Soft, NT, ND, +BS Doing much better today No overt GI bleeding Continue current therapy
[2016-09-07] MEDS: HEPARIN SOD 5000 UNIT/0.5 ML CARP SQ SCH ×2 (11:21→20:48)
--- NOTE | 2016-09-07 13:36 | Hospitalist Progress Note ---
Hospitalist Progress Note Date of Service Sep 07, 2016. Subjective Pt evaluation today including: conversation w/ patient, physical exam, chart review, lab review, review of studies, conversation w/ network security consultant (Dr. Anne), review of inpatient medication list PO Intake: Tolerating solid PO diet Voiding: no voiding problems Patient is very fatigued from receiving dialysis late last evening. She is still feeling weak, although she is getting some of her strength back and was able to do physical therapy today. She does report having sweats last night and waking up drenched. She denies feeling feverish or chills, and vitals show she was not febrile. The sweating has resolved. The patient denies fevers, chills, chest pain, palpitations, claudication, cough, wheezing, shortness of breath, nausea, vomiting, abdominal pain, dysuria, hematuria, urinary incontinence, paralysis, weakness, numbness and tingling. Additional Comments: See HPI for pertinent positives and negatives. All other systems reviewed and negative. Objective Vital Signs Date Time Temp Pulse Resp B/P Pulse Ox O2 Delivery O2 Flow Rate FiO2 09/07/16 12:00 Room Air 09/07/16 11:18 36.4 75 14 112/55 92 Room Air 09/07/16 09:45 85 24 119/42 88 Room Air 09/07/16 09:44 88 32 103/24 88 Room Air 09/07/16 08:58 36.4 85 25 96/43 92 Room Air 09/07/16 08:00 Room Air 09/07/16 07:52 72 22 98 Nasal Cannula 2.0 09/07/16 05:59 80 18 166/70 100 09/07/16 04:59 75 21 133/72 97 09/07/16 04:00 36.8 09/07/16 04:00 99 Nasal Cannula 2.0 09/07/16 03:58 83 17 120/58 99 09/07/16 02:59 82 23 103/58 99 09/07/16 01:58 89 24 113/58 98 09/07/16 00:58 93 21 117/58 98 09/07/16 00:01 93 23 109/55 96 09/06/16 23:59 36.8 09/06/16 23:59 96 Nasal Cannula 2.0 09/06/16 22:58 92 21 115/50 100 09/06/16 21:59 85 23 106/50 100 09/06/16 21:51 36.8 85 122/54 09/06/16 21:51 85 25 114/47 100 09/06/16 21:33 82 21 122/50 100 09/06/16 21:30 82 117/52 09/06/16 21:29 76 23 125/51 100 09/06/16 21:15 76 120/57 09/06/16 21:14 74 25 120/57 98 09/06/16 21:00 75 119/50 09/06/16 20:59 76 19 112/61 99 09/06/16 20:45 71 121/45 09/06/16 20:44 72 23 121/45 99 09/06/16 20:30 72 128/51 09/06/16 20:30 76 25 113/53 98 09/06/16 20:29 76 23 115/45 99 09/06/16 20:17 73 134/46 09/06/16 20:14 75 26 134/46 99 09/06/16 20:00 72 139/56 09/06/16 20:00 100 Nasal Cannula 2.0 09/06/16 20:00 36.6 09/06/16 19:59 72 18 139/59 100 09/06/16 19:45 71 142/49 09/06/16 19:44 72 23 142/54 100 09/06/16 19:30 72 136/54 09/06/16 19:29 74 25 136/54 100 09/06/16 19:15 73 138/55 09/06/16 19:13 74 18 144/60 100 09/06/16 19:00 73 133/64 09/06/16 18:45 82 130/59 09/06/16 18:30 76 124/68 09/06/16 18:15 81 121/62 09/06/16 18:00 79 119/59 09/06/16 17:58 72 23 131/56 99 Nasal Cannula 2.0 09/06/16 17:45 81 127/61 09/06/16 17:30 81 115/47 09/06/16 17:25 36.9 68 113/69 09/06/16 16:00 Room Air 09/06/16 15:58 36.7 76 22 113/42 97 Nasal Cannula 2.0 1/4/17 13:59 77 22 116/48 98 Nasal Cannula 2.0 Physical Exam General Appearance: WD/WN, no apparent distress (appears fatigued) Eyes: normal inspection, PERRL, EOMI ENT: normal ENT inspection, hearing grossly normal, pharynx normal Neck: supple, no JVD, trachea midline Respiratory/Chest: normal breath sounds, no respiratory distress, + crackles ( bases to mid lung bilaterally) Cardiovascular: regular rate, rhythm, no gallop, no murmur Abdomen: normal bowel sounds, non tender, soft Extremities: normal inspection, + swelling (trace pitting edema), + pertinent finding (lower extremities TTP) Neurologic/Psychiatric: alert, normal mood/affect, oriented x 3 Skin: normal color, warm/dry, no rash Laboratory Results Last 24 Hours Test 09/06/16 16:17 09/06/16 16:25 09/06/16 20:35 09/06/16 20:50 Bedside Glucose 195 mg/dl 103 mg/dl 100 mg/dl Hemoglobin 8.6 g/dL Hematocrit 26.2 % Test 09/07/16 05:24 09/07/16 06:30 White Blood Count 7.24 K/uL Red Blood Count 2.96 M/uL Hemoglobin 8.8 g/dL Hematocrit 27.0 % Mean Corpuscular Volume 91.2 fL Mean Corpuscular Hemoglobin 29.7 pg Mean Corpuscular Hemoglobin Concent 32.6 g/dl Platelet Count 140 K/uL Mean Platelet Volume 9.9 fL Neutrophils (%) (Auto) 66.7 % Lymphocytes (%) (Auto) 14.6 % Monocytes (%) (Auto) 16.0 % Eosinophils (%) (Auto) 1.8 % Basophils (%) (Auto) 0.3 % Neutrophils # (Auto) 4.83 K/uL Lymphocytes # (Auto) 1.06 K/uL Monocytes # (Auto) 1.16 K/uL Eosinophils # (Auto) 0.13 K/uL Basophils # (Auto) 0.02 K/uL RDW Standard Deviation 59.4 fL RDW Coefficient of Variation 18.4 % Immature Granulocyte % (Auto) 0.6 % Immature Granulocyte # (Auto) 0.04 K/uL Red Blood Cell Morphology Unremarkable Sodium Level 142 mmol/L Potassium Level 3.5 mmol/L Chloride Level 101 mmol/L Carbon Dioxide Level 32 mmol/L Anion Gap 9.0 mmol/L Blood Urea Nitrogen 20 mg/dl Creatinine 2.80 mg/dl Est Creatinine Clear Calc Drug Dose 15.7 ml/min Estimated GFR () 17.1 Estimated GFR (Non- 14.8 BUN/Creatinine Ratio 7.1 Random Glucose 138 mg/dl Calcium Level 7.8 mg/dl Phosphorus Level 2.9 mg/dl Magnesium Level 2.5 mg/dl Total Creatine Kinase 30 U/L Creatine Kinase MB 1.6 ng/ml Creatine Kinase MB Ratio 5.3 Troponin I 0.618 ng/ml Bedside Glucose 137 mg/dl Diagnostic Results Reviewed the following studies and agree with interpretation as follows: Patient Name: ANANTH SIMPSON Unit Number: [id number] Dictated: 09/07/16708 Transcribed: 09/07/16708 Printed Date/Time: [~ rep prt dt]/[~ rep prt tm] [~ rep ct labl] - [~ rep ct ivnm] [facility] [address] Dictated: 09/07/16708 Transcribed: 09/07/16708 Printed Date/Time: [~ rep prt dt]/[~ rep prt tm] [~ rep ct labl] - [~ rep ct ivnm] Patient: ANANTH SIMPSON Address1: [address] [place] [address] Rec: [id number] Address2: Acct ID: [id number] [facility] Zip: [place] [address] Date: 1930 Sex: F Room/Bed: [facility] Ref Phy: Cooper Hart M.D. SC: [facility] Att Phy: Max Desir MD, PhD Report #: [id number] [place] Phy: Vipul Hernandez M.D. Test: CXR1P Admit Phy: Max Desir MD, PhD Dye House Wheel Operator: CAROL Interpreting Phy: Timmy Candelaria MD Diagnosis: RECTAL BLEEDING Ordering Phy: Jaspal Anne MD Service Date: 09/07/16 Admit Date: 09/04/1700/02/17 MNE: [id number] CONF: DICTATED BY: Timmy Candelaria MD]] CC: Vipul Hernandez M.D. Cooper Hart M.D. Max Desir MD, PhD Jaspal Anne MD Endcc: [~ rep ct add3]] CHEST ONE VIEW PORTABLE CLINICAL HISTORY: Pulmonary edema; s/p dialysis COMPARISON STUDY: Chest radiograph September 06, 2016. FINDINGS: Right internal jugular catheters remain in place. There is no pneumothorax. Small bilateral pleural effusions persist. Cardiomegaly is unchanged. Pulmonary edema has slightly progressed. There are bibasilar opacities, left greater than right. IMPRESSION: 1. Slight progression of pulmonary edema. 2. Small bilateral pleural effusions with associated bibasilar opacities which could reflect atelectasis or less likely consolidation. Electronically signed by: Timmy Candelaira M.D. 09/07/2016 7:11 AM The status of this report is Signed. Draft = Not yet reviewed or approved by Radiologist. Signed = Reviewed and approved by Radiologist. <AttendingPhy>Max Desir MD, PhD</AttendingPhy> <FamilyPhy>Cooper Hart M.D.</FamilyPhy> <PrimaryPhy>Vipul Hernandez M.D.</PrimaryPhy> <UnitNumber>[id number]</UnitNumber> <VisitNumber>[id number]</VisitNumber> < PatientName>ANANTH SIMPSON</PatientName> <DateOfBirth>1930</DateOfBirth> < Location>[facility]</Location> <ServiceDate>09/04/16</ServiceDate> <MNE>ESINDI</MNE > <OrderingPhy>Jaspal Anne MD</OrderingPhy> <OrderingPhyMNE>f rep ord dr bae</ OrderingPhyMNE> <DictatingPhyMNE>f rep dict dr bae</DictatingPhyMNE> <CCListMNE> f rep ct mne</CCListMNE> <AdmittingPhyMNE>f pt admit dr bae</AdmittingPhyMNE> < AttendingPhyMNE>f pt attend dr bae</AttendingPhyMNE> <ConsultingPhyMNE>f pt consult dr bae</ConsultingPhyMNE> <FamilyPhyMNE>f pt fam dr bae</FamilyPhyMNE> <OtherPhyMNE>f pt other dr bae</OtherPhyMNE> < PrimaryPhyMNE>f pt prim care dr bae</PrimaryPhyMNE> <ReferringPhyMNE>f pt referring dr bae</ReferringPhyMNE> Assessment and Plan 86 y/o female with a history of ESRD with HD, anemia of chronic disease, CHF, CAD, CO, DM II, HTN, paroxysmal atrial fibrillation, HLD and gout who presented to the ED on 09/04 with diarrhea and bright red blood per rectum. Pt. is on ASA and Plavix. CXR shows small left pleural effusion improved from prior study in 07/2016, mild lower lung interstitial thickening. EKG shows new inverted T waves and ST depressions in inferior and lateral leads. Hgb 9.7 upon arrival, PLT stable at 212. -Admit to ICU for rectal bleeding, h/o cardiac disease and a-fib. Transferred to telemetry on 09/07 -GI consulted, appreciate recs. EGD and colonoscopy today with Dr. Bowers. 5 mm sessile polyp found in cecum, biopsied. Diverticula throughout entire colon. Non-bleeding internal hemorrhoids. EGD showed no esophageal abnormalities, but proceeded with dilation at GE junction due to dysphagia. Stomach and duodenum normal. -Nephro consulted for dialysis, pt on M/W/F schedule. -Tolerating solid foods -Pt. received total 4 units PRBC, Hgb remains stable in high 8s/9s -ED ordered cryoprecipitate and platelets for pt., however PLT count stable at [address] upon arrival. Discuss[address] with Dr. Desir, not indicated for pt at this time. Orders were already in process at the time of examination and could not be canceled. -Check serial H&H q6h x4 -D/C IVF, CXR shows some pulmonary edema and pleural effusions -Trend serial cardiac enzymes q8h x 3 due to ischemic changes in EKG: troponin 0.046-->0.058-->0.057. Repeat troponin 0.618. ESRD likely contributing. ICU consulted cardiology -Repeat EKG q am and with chest pain -Resume ASA and Plavix -Small bowel study ordered to further evaluate cause of bleeding ESRD on HD--due for dialysis M/W/F -Nephro on board -Continue PhosLo 667 mg PO TID with meals Anemia of chronic disease--baseline Hgb around 11 -Hgb 9.7 upon arrival -Hgb 8.8 on 09/07, has remained stable -4 units PRBC transfused as above -Continue to monitor with serial H&H H/o CHF -Continue Bumex 1 mg PO qd Diabetes mellitus type 2--Last HgbA1c checked on 07/06/16 was 5.5 -Insulin sliding scale -Check BSGs q ac and qhs, check q6h while NPO HTN--hypotensive while in ED, improving with fluids and blood -Hold Imdur and metoprolol HLD -Continue Crestor 10 mg PO qd Gout -Continue allopurinol DVT prophylaxis -Heparin 5000 units SC q12h -JASPAL Gay Code Status -Level I, FULL RESUSCITATION STATUS
--- NOTE | 2016-09-07 15:55 | Cardiology Consultation ---
Cardiology Consultation Date of Consultation: Sep 07, 2016. Requesting Physician: Dr. Anne Attending Physician: Dr. Spencer Reason for Consultation: Elevated troponin, EKG changes Pt evaluation today including: conversation w/ patient, conversation w/ family , physical exam, chart review, conversation w/ senior sustainability consultant, review of inpatient medication list, conversation w/ attending History of Present Illness Ms. Rahman is an 86-year-old female with a history of coronary artery disease ( CABG 41996; RCA stent, 2006, with obstructed SVGs to the diagonal and ramus branches), chronic diastolic congestive heart failure, valvular heart disease ( moderate to severe , moderate MR, moderate PI), hypertension, hypercholesterolemia, type 2 diabetes, ESRD on HD, and paroxysmal atrial fibrillation (Amiodarone) who follows with Dr. Hernandez as an outpatient. She presented to the ED on 09/04/16 with multiple episodes of rectal bleeding. She has undergone colonoscopy and EGD with no source of bleeding identified. ECGs have shown T wave inversion and ST depression of inferolateral leads. Cardiac enzymes have manoj to a peak of 0.618. Her aspirin and plavix were initially on hold but have been restarted. Her Metoprolol and long acting nitrate have been on hold. She continues on Amio and Crestor. Patient seen at bedside today. She reports that she is feeling very tired and fatigued. She underwent dialysis last evening until 10 pm, and she is usually very tired on days following dialysis. She reports some left sided rib pain last evening when rolling over in bed, which lasted a couple of minutes in duration. She currently denies any chest discomfort or other anginal type symptoms. She denies shortness of breath, orthopnea, PND, or edema. She has not experienced any lightheadedness, dizziness, syncope, presyncope, or cerebrovascular symptoms. She denies recurrent blood in her stools. Review of systems: As noted in HPI. All other 10 point ROS otherwise negative. Family History Asthma Cancer SISTER (Breast cancer) Chronic kidney disease MOTHER Diabetes mellitus FATHER Heart disease FATHER Hypertension FATHER MOTHER Kidney disease Kidney stones Stroke Social History Smoking Status: Never Smoker History of Alcohol Use: No Review of Systems Respiratory: No problem reported Cardiac: No problem reported Allergies Coded Allergies: No Known Allergies (Unverified , 09/04/16) Medications Current Inpatient Medications Medications (Trade) Dose Ordered Sig/Janeth Route Start Time Stop Time Status Last Admin Dose Admin Acetaminophen (Tylenol Tab) 650 mg Q4H PRN PO 09/04/16 13:15 10/04/16 13:14 09/07/16 01:53 650 MG Al Hydrox/Mg Hydrox/Simethicone (Maalox Max Susp) 15 ml Q4H PRN PO 09/04/16 13:15 10/04/16 13:14 Magnesium Hydroxide (Milk Of Magnesia Susp) 30 ml Q12H PRN PO 09/04/16 13:15 10/04/16 13:14 Polyethylene (Miralax Powder Packet) 17 gm DAILY PRN PO 09/04/16 13:15 10/04/16 13:14 Insulin Aspart (novoLOG ASPART) SLIDING SCALE If C... ACHS SC 09/04/16 16:00 10/04/16 15:59 Glucose (Glucose 40% Gel) 15-30 GRAMS 15 GRAMS... UD PRN PO 09/04/16 13:15 10/04/16 13:14 Glucose (Glucose Chew Tab) 4-8 Tablets 4 Tabl... UD PRN PO 09/04/16 13:15 10/04/16 13:14 Dextrose (Dextrose 50% 50ML Syringe) 25-50ML OF 50% DW IV FOR... UD PRN IV 09/04/16 13:15 10/04/16 13:14 Glucagon (Glucagon Inj) 1 mg UD PRN SQ 09/04/16 13:15 10/04/16 13:14 Albuterol (Ventolin Hfa Inhaler) 2 puffs QID PRN INH 09/04/16 13:15 10/04/16 13:14 Amiodarone HCl (Cordarone Tab) 200 mg DAILY PO 09/05/16 09:00 10/05/16 08:59 09/07/16 08:37 200 MG Calcium Acetate (Phoslo Cap) 667 mg TIDM PO 09/04/16 17:28 10/04/16 17:59 09/07/16 11:20 667 MG Albuterol/ Ipratropium (Duoneb) 3 ml Q12R INH 09/04/16 20:00 10/04/16 19:59 09/07/16 07:51 3 ML Nitroglycerin (Nitrostat Tab) 0.4 mg UD PRN UT 09/04/16 13:15 10/04/16 13:14 Rosuvastatin Calcium 10 mg 10 mg HS PO 09/04/16 21:00 10/04/16 20:59 09/06/16 21:40 10 MG Pantoprazole Sodium/Syringe (Protonix Inj/ Syringe) 10 ml @ 5 mls/min DAILY@09,21 IV 09/04/16 21:00 10/04/16 20:59 09/07/16 08:36 5 MLS/MIN Ioversol (Optiray 320) 111 ml UD PRN IV 09/04/16 21:00 09/08/16 20:59 Heparin Sodium (Porcine) (Heparin Sq 5000 Unit/0.5ml) 5,000 unit Q12 SQ 09/07/16 09:00 10/07/16 08:59 09/07/16 11:21 5,000 UNIT Heparin Sodium (Porcine) (Heparin Iv Bolus) 2,000 unit ONE IV 09/08/16 06:00 09/08/16 18:00 Paricalcitol 3 mcg 3 mcg 0600 IV. 09/08/16 06:00 09/08/16 18:00 Epoetin Joshua/ Syringe (Procrit Inj/ Syringe) 0.4 ml @ 1 mls/min 0600 IV. 09/08/16 06:00 09/08/16 18:00 Aspirin (Ecotrin Tab) 81 mg HS PO 09/07/16 21:00 10/07/16 20:59 Bumetanide (Bumex Tab) 1 mg DAILY PO 09/08/16 09:00 10/08/16 08:59 Clopidogrel Bisulfate (plAVix TAB) 75 mg HS PO 09/07/16 21:00 10/07/16 20:59 Allopurinol (Zyloprim Tab) 50 mg QAM PO 09/08/16 09:00 10/08/16 08:59 Physical Exam Vital Signs Past 12 Hours Date Time Temp Pulse Resp B/P Pulse Ox O2 Delivery O2 Flow Rate FiO2 09/07/16 12:00 Room Air 09/07/16 11:18 36.4 75 14 112/55 92 Room Air 09/07/16 09:45 85 24 119/42 88 Room Air 09/07/16 09:44 88 32 103/24 88 Room Air 09/07/16 08:58 36.4 85 25 96/43 92 Room Air 09/07/16 08:00 Room Air 09/07/16 07:52 72 22 98 Nasal Cannula 2.0 09/07/16 05:59 80 18 166/70 100 09/07/16 04:59 75 21 133/72 97 09/07/16 04:00 36.8 09/07/16 04:00 99 Nasal Cannula 2.0 09/07/16 03:58 83 17 120/58 99 09/07/16 02:59 82 23 103/58 99 09/07/16 01:58 89 24 113/58 98 09/07/16 00:58 93 21 117/58 98 Constitutional: Alert, oriented, in no acute distress. HEENT: Unremarkable Neck: Supple, no appreciable JVD Pulmonary: Normal respiratory effort, clear to auscultation bilaterally Cardiac: Regular rate and rhythm, normal S1 and S2, no gallops, no rubs. 2/6 crescendo decrescendo systolic ejection murmur. 2/6 apical holosystolic murmur. Extremities: Trace ankle and pedal edema bilaterally. No clubbing or cyanosis. Pulses intact. Abdomen: Normal bowel sounds, soft, non-tender, no abdominal mass palpated Skin: Scattered areas of ecchymosis. Chronic venous stasis skin changes of bilateral lower extremities. Neurological: Oriented to person, place, and time Data Laboratory Results: Last 24 Hours Test 09/06/16 16:17 09/06/16 16:25 09/06/16 20:35 09/06/16 20:50 Bedside Glucose 195 mg/dl 103 mg/dl 100 mg/dl Hemoglobin 8.6 g/dL Hematocrit 26.2 % Test 09/07/16 05:24 09/07/16 06:30 White Blood Count 7.24 K/uL Red Blood Count 2.96 M/uL Hemoglobin 8.8 g/dL Hematocrit 27.0 % Mean Corpuscular Volume 91.2 fL Mean Corpuscular Hemoglobin 29.7 pg Mean Corpuscular Hemoglobin Concent 32.6 g/dl Platelet Count 140 K/uL Mean Platelet Volume 9.9 fL Neutrophils (%) (Auto) 66.7 % Lymphocytes (%) (Auto) 14.6 % Monocytes (%) (Auto) 16.0 % Eosinophils (%) (Auto) 1.8 % Basophils (%) (Auto) 0.3 % Neutrophils # (Auto) 4.83 K/uL Lymphocytes # (Auto) 1.06 K/uL Monocytes # (Auto) 1.16 K/uL Eosinophils # (Auto) 0.13 K/uL Basophils # (Auto) 0.02 K/uL RDW Standard Deviation 59.4 fL RDW Coefficient of Variation 18.4 % Immature Granulocyte % (Auto) 0.6 % Immature Granulocyte # (Auto) 0.04 K/uL Red Blood Cell Morphology Unremarkable Sodium Level 142 mmol/L Potassium Level 3.5 mmol/L Chloride Level 101 mmol/L Carbon Dioxide Level 32 mmol/L Anion Gap 9.0 mmol/L Blood Urea Nitrogen 20 mg/dl Creatinine 2.80 mg/dl Est Creatinine Clear Calc Drug Dose 15.7 ml/min Estimated GFR () 17.1 Estimated GFR (Non- 14.8 BUN/Creatinine Ratio 7.1 Random Glucose 138 mg/dl Calcium Level 7.8 mg/dl Phosphorus Level 2.9 mg/dl Magnesium Level 2.5 mg/dl Total Creatine Kinase 30 U/L Creatine Kinase MB 1.6 ng/ml Creatine Kinase MB Ratio 5.3 Troponin I 0.618 ng/ml Bedside Glucose 137 mg/dl Assessment & Plan ASSESSMENT/PLAN: 1. Coronary artery disease s/p CABG: She denies any anginal symptoms. Her EKG's have shown T wave inversion and ST depression of inferolateral leads. Her Troponin has been mildly elevated up to 0.618, but her CK is normal at 30. She therefore does not meet criteria for ACS, and there is no indication for anticoagulation therapy at this time. Recommend continuing to monitor for now. If she were to develop chest pain, further EKG changes, or if her Troponin were to exceed 3, would then recommend heparin therapy. She has declined invasive intervention in the past and continues to decline at this time. Continue aspirin and plavix. Continue Crestor. Consider restarting beta blockade and/or long acting nitrate in the future if her BP/HR allow. 2. Paroxysmal atrial fibrillation: She has been in sinus rhythm throughout the admission. Continue Amiodarone therapy. She has not been on anticoagulation therapy due to history of bleeding. 3. Chronic diastolic CHF: She appears euvolemic currently. Volume status managed by nephrology with hemodialysis. 4. Valvular heart disease: Moderate to severe , moderate MR, and moderate PI per echo 06/15/16. 5. Dyslipidemia: Continue Crestor. Thank you for allowing us to see this patient in consultation. The plan was made in collaboration with Dr. Spencer who will also be in to see the patient today. CARDIOLOGY ATTENDING ADDENDUM (Dr. Spencer): Patient seen, interviewed, and examined. Agree with above assessment and recommendations by Delmis Meeks PA-C. Patient denied any chest pain and was asymptomatic at the time of my evaluation. Given her increased risk of bleeding, absence of CK rise/elevation , and the relatively modest troponin rise (in comparison to rather dramatic rises she has had in the past), favor conservative management by optimizing hemodynamics without adding heparin or other antithrombin agent. If her clinical status should change, could re-evaluate the need for antithrombotic therapy. Her other cardiac problems appear stable. Likely, she will be seen by Dr. Hernandez (her primary inflated ball molder) tomorrow.
[2016-09-07] MEDS: ROSUVASTATIN CALCIUM 10 MG TAB PO SCH (20:47)
[2016-09-07] MEDS ORDERED: ASPIRIN 81 MG ECTAB PO SCH (21:00)
[2016-09-07] MEDS ORDERED: CLOPIDOGREL BISULFATE 75 MG TAB PO SCH (21:00)
[2016-09-07] MEDS: PANTOprazole SOD 40 MG TAB PO SCH (22:00)
[2016-09-08] VITALS (24 sets, daily range): BP systolic 107–145; BP diastolic 42–78; PULSE 61–86; TEMP 36.4–36.9; O2SAT 91–98
[2016-09-08] MEDS ORDERED: PARICALCITOL 5 MCG/ML VIAL (ZEMPLAR) IV. SCH (06:00)
[2016-09-08] MEDS ORDERED: EPOETIN ALFA INJ 8,000 UNITS in SYRINGE 0 ML IV. SCH (06:00)
[2016-09-08] MEDS ORDERED: EPOETIN ALFA 10,000 UNITS/ML VIAL IV. ONE (06:00)
[2016-09-08] MEDS ORDERED: HEPARIN SOD (PORCINE) 1000 UNIT/ML 10 ML VIAL IV SCH (06:00)
[2016-09-08] MEDS: INSULIN ASPART 100 UNITS/ML 3 ML PEN SC SCH ×3 (07:00→16:15)
[2016-09-08] MEDS: ALBUT/IPRATROP 3MG/0.5MG NEB 3 ML VIAL INH SCH (07:41)
[2016-09-08] MEDS ORDERED: BUMETANIDE 1 MG TAB PO SCH (09:00)
[2016-09-08] MEDS ORDERED: ALLOPURINOL 100 MG TAB PO SCH (09:00)
--- NOTE | 2016-09-08 09:50 | Dialysis Progress Note ---
Hemodialysis Note Date of Service Sep 08, 2016. Chief Complaint To provide inpatient HD for this patient with ESRD and assist with medical management. Patient was admitted with GI bleeding. Subjective Ms. Rahman was seen & examined during HD this am. She denies complications with her dialysis treatment. IJ THC is functioning well A --> A. The patient was admitted with GI bleeding. She required transfusion w/ 4 U PRBC. EGD & colonoscopy were negative for a source. She denies overt blood loss overnight Ms. Simpson's medical history is significant for AODM, HTN, PVD w/ bilateral carotid arterial disease, ASCVD s/p CABG x 4 1996 and OA. The patient hopes to be discharged to home with home health today. Review of Systems Constitutional: No fever Cardiovascular: No chest pain Respiratory: No dyspnea at rest Abdomen: No hematemesis, No melena, No pain Extremities: No leg edema A complete review of systems was performed. Pertinent positives are noted above. All other systems are negative. Vital Signs Last 8 Hrs Date Time Temp Pulse Resp B/P Pulse Ox O2 Delivery O2 Flow Rate FiO2 09/08/16 09:15 80 130/56 09/08/16 09:00 72 124/55 09/08/16 08:45 75 119/51 09/08/16 08:30 79 135/47 09/08/16 08:15 81 139/50 09/08/16 08:00 84 145/48 09/08/16 07:45 76 141/52 09/08/16 07:33 36.9 69 18 130/77 96 09/08/16 07:30 77 132/49 09/08/16 07:15 79 126/45 09/08/16 07:00 81 131/50 09/08/16 06:45 79 128/43 09/08/16 06:30 66 131/51 09/08/16 06:15 64 123/42 09/08/16 06:00 61 120/55 09/08/16 05:45 65 111/60 09/08/16 05:30 36.4 62 112/59 09/08/16 04:00 Room Air 09/08/16 04:00 36.8 83 18 127/78 98 Nasal Cannula 2.0 I & O 24-Hour Column 09/08/16 08:00 Intake Total 430 ml Output Total 90 ml Balance 340 ml Last Recorded Weight Weight (Kilograms): 79.500 Physical Exam General Appearance: no apparent distress Head: normocephalic, atraumatic Eyes: PERRL, EOMI Neck: no adenopathy Respiratory/Chest: lungs clear Cardiovascular: regular rate, rhythm Abdomen/GI: normal bowel sounds, non tender, soft Extremities/Musculoskelatal: no calf tenderness, no pedal edema Neurologic/Psych: alert, oriented x 3 Family History Mother - CKD Social History Smoking Status: Never smoker Smokeless Tobacco Use: No Alcohol Use: none Drug Use: none Marital Status: Housing Status: lives with family (with granddaughter) Occupation: retired . Retired. Never a smoker. Laboratory Results Past 24 Hours Test 09/07/16 11:05 09/07/16 16:01 09/07/16 20:44 09/08/16 04:44 Bedside Glucose 176 mg/dl (70-90) 148 mg/dl (70-90) 170 mg/dl (70-90) Creatine Kinase MB Ratio (0-3.0) Allergies Coded Allergies: No Known Allergies (Unverified , 09/04/16) Medications Current Inpatient Medications Medications (Trade) Dose Ordered Sig/Janeth Route Start Time Stop Time Status Last Admin Dose Admin Acetaminophen (Tylenol Tab) 650 mg Q4H PRN PO 09/04/16 13:15 10/04/16 13:14 09/07/16 01:53 650 MG Al Hydrox/Mg Hydrox/Simethicone (Maalox Max Susp) 15 ml Q4H PRN PO 09/04/16 13:15 10/04/16 13:14 Magnesium Hydroxide (Milk Of Magnesia Susp) 30 ml Q12H PRN PO 09/04/16 13:15 10/04/16 13:14 Polyethylene (Miralax Powder Packet) 17 gm DAILY PRN PO 09/04/16 13:15 10/04/16 13:14 Insulin Aspart (novoLOG ASPART) SLIDING SCALE If C... ACHS SC 09/04/16 16:00 10/04/16 15:59 Glucose (Glucose 40% Gel) 15-30 GRAMS 15 GRAMS... UD PRN PO 09/04/16 13:15 10/04/16 13:14 Glucose (Glucose Chew Tab) 4-8 Tablets 4 Tabl... UD PRN PO 09/04/16 13:15 10/04/16 13:14 Dextrose (Dextrose 50% 50ML Syringe) 25-50ML OF 50% DW IV FOR... UD PRN IV 09/04/16 13:15 10/04/16 13:14 Glucagon (Glucagon Inj) 1 mg UD PRN SQ 09/04/16 13:15 10/04/16 13:14 Albuterol (Ventolin Hfa Inhaler) 2 puffs QID PRN INH 09/04/16 13:15 10/04/16 13:14 Amiodarone HCl (Cordarone Tab) 200 mg DAILY PO 09/05/16 09:00 10/05/16 08:59 09/07/16 08:37 200 MG Calcium Acetate (Phoslo Cap) 667 mg TIDM PO 09/04/16 17:28 10/04/16 17:59 09/07/16 16:28 667 MG Albuterol/ Ipratropium (Duoneb) 3 ml Q12R INH 09/04/16 20:00 10/04/16 19:59 09/07/16 20:37 3 ML Nitroglycerin (Nitrostat Tab) 0.4 mg UD PRN UT 09/04/16 13:15 10/04/16 13:14 Rosuvastatin Calcium (Crestor Tab) 10 mg HS PO 09/04/16 21:00 10/04/16 20:59 09/07/16 20:47 10 MG Ioversol (Optiray 320) 111 ml UD PRN IV 09/04/16 21:00 09/08/16 20:59 Heparin Sodium (Porcine) (Heparin Sq 5000 Unit/0.5ml) 5,000 unit Q12 SQ 09/07/16 09:00 10/07/16 08:59 09/07/16 20:48 5,000 UNIT Heparin Sodium (Porcine) (Heparin Iv Bolus) 2,000 unit ONE IV 09/08/16 06:00 09/08/16 18:00 Paricalcitol 3 mcg 3 mcg 0600 IV. 09/08/16 06:00 09/08/16 18:00 09/08/16 09:00 3 MCG Epoetin Joshua/ Syringe (Procrit Inj/ Syringe) 0.4 ml @ 1 mls/min 0600 IV. 09/08/16 06:00 09/08/16 18:00 09/08/16 09:02 1 MLS/MIN Aspirin (Ecotrin Tab) 81 mg HS PO 09/07/16 21:00 10/07/16 20:59 09/07/16 20:47 81 MG Bumetanide (Bumex Tab) 1 mg DAILY PO 09/08/16 09:00 10/08/16 08:59 Clopidogrel Bisulfate (plAVix TAB) 75 mg HS PO 09/07/16 21:00 10/07/16 20:59 09/07/16 20:48 75 MG Allopurinol (Zyloprim Tab) 50 mg QAM PO 09/08/16 09:00 10/08/16 08:59 Pantoprazole Sodium (Protonix Tab) 40 mg BID PO 09/07/16 21:00 10/07/16 20:59 09/07/16 22:00 40 MG Impression (1) GI bleed (2) Anemia (3) ESRD (end stage renal disease) on dialysis (4) NSTEMI (non-ST elevated myocardial infarction) Patient admitted for evaluation of GI bleeding. She has ASCVD and has been on ASA & Plavix chronically as an outpatient. She has required transfusion w/ 4 U PRBC since admission. She currently denies angina or dyspnea. PMH - ESRD on HD MWF at [facility], ASCVD s/p CABG x 4 1996, cardiac cath 2006 complicated by pseudoaneurysm of the right femoral artery requiring emergency surgical repair, AODM, HTN, PVD w/ carotid stenosis, h/o nephrolithiasis, cholelithiasis, OA Recommendations END STAGE RENAL DISEASE: -- Patient was seen & examined on HD this am. She remains medically stable at this time. No change to current HD prescription. -- I have called the [facility] HD unit. Patient is on low dose heparin with outpatient dialysis treatments. They know to expect her on Sunday. ANEMIA: -- Patient has been transfused 4 U PRBC since admission. Hgb is now stable at ~ 9.9. Continue to monitor -- EGD & colonoscopy 09/06/16: No active site of GI bleeding identified. No gastritis or gastric ulcer -- Continue PPI therapy -- Will provide RANJAN w/ HD treatments ASCVD: -- Patient denies angina -- Mild elevation in troponin
--- NOTE | 2016-09-08 10:07 | CARDIOLOGY PROGRESS NOTE ---
DATE: 09/08/2016 DATE: 09/08/2016. SUBJECTIVE: Mrs. Rahman is resting comfortably in bed without complaints of chest pain or dyspnea. Does note some left-sided chest tenderness to palpation. OBJECTIVE: VITAL SIGNS: Blood pressure is 130/56 with a regular pulse of 80. Respiratory rate is 18. The patient is afebrile at 36.9?C. Saturations 96% on 2 liters nasal cannula. NECK: Supple with mildly delayed and prolonged carotid upstrokes. No obvious bruits. Jugular venous pressure is difficult to assess. CARDIOVASCULAR EXAMINATION: Reveals a regular rhythm with a 2/6 crescendo decrescendo systolic murmur heard loudest at the base. No S3. LUNGS: Clear without rales, rhonchi, or wheezes. ABDOMEN: Soft and nontender without bruits. EXTREMITIES: Reveal intact radial artery pulses bilaterally. 1+ pretibial edema is noted. LABORATORY DATA: CBC, PRP, troponin I levels are all pending. surveillance monitor notes occasional PVCs. IMPRESSION AND PLAN: 1. Elevated troponin -- repeat value for this morning is pending. Recommendations for anticoagulation therapy listed in Delmis Meeks's note yesterday. She continues to have no new EKG changes nor complaints of angina pectoris. 2. Coronary artery disease -- status post coronary artery bypass graft. 3. Paroxysmal atrial fibrillation -- remains in sinus rhythm on amiodarone. 4. Chronic diastolic congestive heart failure -- volume managed with dialysis. 5. Moderate to severe aortic stenosis. 6. Moderate mitral regurgitation. 7. Hypercholesterolemia -- continue Crestor. 8. Gastrointestinal bleeding -- resolved.
[2016-09-08] MEDS: CALCIUM ACETATE 667MG GELCAP PO SCH ×3 (10:46→16:45)
[2016-09-08] MEDS: AMIODARONE 200 MG TAB PO SCH (10:47)
[2016-09-08] MEDS: PANTOprazole SOD 40 MG TAB PO SCH (10:47)
[2016-09-08] MEDS: HEPARIN SOD 5000 UNIT/0.5 ML CARP SQ SCH (10:50)
[2016-09-08] MEDS ORDERED: NURSING DECISION MEDICATION ORDER SCH (11:30)
[2016-09-08] MEDS ORDERED: ONDANSETRON INJ 2 MG/ML 2 ML VIAL IV SCH (11:30)
[2016-09-08] MEDS ORDERED: ONDANSETRON INJ 2 MG/ML 2 ML VIAL IV PRN (11:30)
[2016-09-08 11:45] LABS: MEAN CELL VOLUME 92.2 fL (80-100); MEAN CORPUSCULAR HEMOGLOBIN 29.4 pg (25-34); MEAN CORPUSCULAR HGB CONC 31.9 g/dl (32-36); MEAN PLATELET VOLUME 9.8 fL (7.4-10.4); PLATELET COUNT 160 K/uL (130-400); RED BLOOD COUNT 3.47 M/uL (4.2-5.4); WHITE BLOOD COUNT 6.76 K/uL (4.8-10.8)
[2016-09-08] MEDS ORDERED: PRT40 PO (12:27)
[2016-09-08 12:28] LABS: BUN/CREATININE RATIO 5.7 (10-20); CALCIUM 7.6 mg/dl (8.5-10.1); CKMB/CK RATIO 4.5 (0-3.0); CREATININE 1.9 mg/dl (0.60-1.20); POTASSIUM 3.2 mmol/L (3.5-5.1)
--- NOTE | 2016-09-08 12:58 | Discharge Instructions ---
Discharge Instructions Admission Reason for Admission: Rectal Bleeding Discharge Discharge Diagnosis / Problem: Rectal bleeding Discharge Goals Goal(s): Decrease discomfort, Improve disease control, Improve nutritional status, Diagnostic testing, Therapeutic intervention Activity Recommendations Activity Limitations: as noted below Lifting Limitations: no more than 10 pounds Exercise/Sports Limitations: gradually increase as tolerated Shower/Bathe: no limitations Gradually increase activity as tolerated and as per physical therapy recommendations. . Instructions / Follow-Up Instructions / Follow-Up You were admitted to the hospital for rectal bleeding with bright red blood. While in the ER, you were found to be actively hemorrhaging. You were admitted directly to the ICU. You received a total of 4 units of blood, at which point you became more stable. A CT scan of the abdomen and pelvis did not reveal any acute infection, inflammation or obvious source of the bleeding. On 09/06, you were taken for an upper endoscopy and colonoscopy, but these studies also did not show any source of the bleeding. The colonoscopy revealed a 5 mm polyp, which was biopsied. The biopsy report showed some inflammation tissue that was non-specific. There were also medium-sized, non-bleeding internal hemorrhoids on the colonoscopy. The upper endoscopy did not show any abnormalities. Since you have been experiencing trouble swallowing intermittently, part of your esophagus was dilated to help alleviate your symptoms. After a few days of remaining stable, you were transferred out of the ICU to a telemetry unit. Your aspirin and Plavix were restarted as you were no longer actively bleeding. Since the upper and lower endoscopy studies did not find a source of the bleeding, we considered doing a fluoroscopy study to examine your small bowel, as portions of the small intestine are not visualized with the scopes. We were not able to schedule this prior to your discharge due to your dialysis schedule , so we will leave it up to your primary care provider's discretion to schedule this study as an outpatient. Gastroenterology did not recommend any further work up at this time as the bleeding has stopped. GI did start you on a new medication called pantoprazole to help protect the lining of your GI tract and reduce acid secretions. A prescription for pantoprazole (Protonix) 40 mg by mouth twice a day has been sent to your pharmacy. Please take as directed and follow up with your primary care provider regarding this addition to your medications. During your hospital stay, your troponin was elevated. Troponin is a cardiac enzyme gets released when there is damage to your heart muscles. Cardiology was consulted, and they felt that since your other cardiac enzymes had been normal and you were not experiencing symptoms of a heart attack, no further intervention was necessary. Troponin is also commonly elevated in patients with kidney disease, so your kidney failure is the likely cause. You may continue your home medications as prescribed, and follow up with Dr. Hernandez. You may resume all of your home medications as previously prescribed with the addition of the pantoprazole as above. Please seek urgent medical attention if you see bright red or dark blood in your stools, or if you experience fevers, chills, sweats, chest pain, shortness of breath, nausea, vomiting, abdominal pain, loss of consciousness, or lightheadedness. Follow-Up: You have been scheduled for a follow up appointment with your primary care provider, Dr. Hart, for September 14, at 2:30 pm. Please continue to follow up regularly with your summer clerk, Dr. Hernandez. Current Hospital Diet Patient's current hospital diet: Diabetes Type 2 Diet, Renal Diet Discharge Diet Recommended Diet: Diabetes Type 2 Diet, Renal Diet Procedures Procedures Performed: EGD COLONOSCOPY Pending Studies Studies pending at discharge: no Laboratory Results Hemoglobin A1c Test 07/06/16 16:25 Range/Units Estimated Average Glucose 111 mg/dl Hemoglobin A1c 5.5 4.5-5.6 % Medical Emergencies . Who to Call and When: Medical Emergencies: If at any time you feel your situation is an emergency, please call 911 immediately. . Non-Emergent Contact Non-Emergency issues call your: Primary Care Provider Call Non-Emergent contact if: you have any medication questions . Past History Medical & Surgical History: (1) GI bleed (2) Symptomatic anemia (3) Hypotension (4) ESRD (end stage renal disease) on dialysis . "Provider Documentation" section prepared by Joan Dupont. VTE Core Measure Inpt VTE Proph given/why not?: Brain Castañeda, RUDDY's
[2016-09-08] MEDS ORDERED: POTASSIUM CHLORIDE 20 MEQ TABCR PO ONE (13:15)
--- NOTE | 2016-09-08 13:45 | Discharge Summary ---
Discharge Summary Admission Date: Sep 04, 2016 at 15:21 Discharge Date: Sep 08, 2016 Discharge Disposition: Home with services ([facility]) Principal Diagnosis: GI bleed Immunizations: Have You Had Influenza Vaccine: Yes Influenza Vaccine Date: Apr 17, 2012 History of Tetanus Vaccine?: Yes Tetanus Immunization Date: Dec 16, 2006 History of Pneumococcal: Yes Pneumococcal Date: Dec 17, 2007 History of Hepatitis B Vaccine: No Procedures: Patient: ANANTH SIMPSON Admit Date: 09/04/1700/02/17 Med Rec: [id number] Acct ID: [id number] [~ rep ct labl] Page 2of 2 p: [~ rep prt dt last] [~ rep prt tm last] [~ rep ct labl] Page 1of 2 p: [~ rep prt dt last] [~ rep prt tm last] GI REPORT [place], [place] Patient: ANANTH SIMPSON Admit Date: 09/04/1700/02/17 Med Rec: [id number] Att Phy: Max Desir MD, PhD Acct ID: [id number] Christiana Phy: Vipul Hernandez M.D. Date: 1930 Ref Phy: Self, Referred Fam Phy: Cooper Hart M.D. Age: 86 Location: [facility] [place] Sex: F Room/Bed: [facility] MNE:PROVATION REPORT #: [id number] CC: Dario Bowers D.O. Endcc: DICTATED BY: Dario Bowers D.O. Procedure Date: 09/06/2016 10:17 AM Procedure: Upper GI endoscopy Indications: Dysphagia Medicines: Monitored Anesthesia Care Complications: No immediate complications. Estimated Blood Loss: Estimated blood loss: none. Procedure: Pre-Anesthesia Assessment: - Prior to the procedure, a History and Physical was performed, and patient medications and allergies were reviewed. The patient's tolerance of previous anesthesia was also reviewed. The risks and benefits of the procedure and the sedation options and risks were discussed with the patient. All questions were answered, and informed consent was obtained. Prior Anticoagulants: The patient last took aspirin 2 days and Plavix (clopidogrel) 2 days prior to the procedure. ASA Grade Assessment: IV - A patient with severe systemic disease that is a constant threat to life. After reviewing the risks and benefits, the patient was deemed in satisfactory condition to undergo the procedure. After obtaining informed consent, the endoscope was passed under direct vision. Throughout the procedure, the patient's blood pressure, pulse, and oxygen saturations were monitored continuously. The scope was introduced through the mouth, and advanced to the second part of duodenum. The upper GI endoscopy was accomplished without difficulty. The patient tolerated the procedure well. Findings: No endoscopic abnormality was evident in the esophagus to explain the patient's complaint of dysphagia. It was decided, however, to proceed with dilation at the gastroesophageal junction. A TTS dilator was passed through the scope. Dilation with a 15-16.5-18 mm balloon (to a maximum balloon size of 18 mm) dilator was performed. The dilation site was examined and showed no change. The entire examined stomach was normal. The examined duodenum was normal. Impression: - No endoscopic esophageal abnormality to explain patient's dysphagia. Esophagus dilated. Dilated. - Normal stomach. - Normal examined duodenum. - No specimens collected. - Feeding tube removed at completion of examination Recommendation: - Resume previous diet. - Continue present medications. - Perform a colonoscopy today. Dario Bowers, DO 09/06/2016 10:51:02 AM This report has been signed electronically. Note Initiated On: 09/06/2016 10:17 AM Dictated: 09/06/16 1017 Signed: 09/06/16 1051 The status of this report is Signed. Draft = Not yet reviewed or approved by Medical Physician. Signed = Reviewed and approved by Medical Physician. <ConsultingPhyMNE>f pt consult dr bae</ConsultingPhyMNE> <FamilyPhyMNE>f pt fam dr bae</FamilyPhyMNE> <OtherPhyMNE>f pt other dr bae</OtherPhyMNE> < PrimaryPhyMNE>f pt prim care dr bae</PrimaryPhyMNE> <ReferringPhyMNE>f pt referring dr bae</ReferringPhyMNE> Patient: ANANTH SIMPSON Admit Date: 09/04/1700/02/17 Med Rec: [id number] Acct ID: [id number] [~ rep ct labl] Page 2of 2 p: [~ rep prt dt last] [~ rep prt tm last] [~ rep ct labl] Page 1of 2 p: [~ rep prt dt last] [~ rep prt tm last] GI REPORT [place], [place] Patient: ANANTH SIMPSON Admit Date: 09/04/1700/02/17 [facility] Rec: [id number] Att Phy: Max Desir MD, PhD Acct ID: [id number] Christiana Phy: Vipul Hernandez M.D. Date: 1930 Ref Phy: Self, Referred Fam Phy: Cooper Hart M.D. Age: 86 Location: [facility] [place] Sex: F Room/Bed: [facility] MNE:PROVATION REPORT #: [id number] CC: Dario Bowers D.O. Endcc: DICTATED BY: Dario Bowers D.O. Procedure Date: 09/06/2016 10:33 AM Procedure: Colonoscopy Indications: Hematochezia Medicines: Monitored Anesthesia Care Complications: No immediate complications. Estimated Blood Loss: Estimated blood loss: none. Procedure: Pre-Anesthesia Assessment: - Prior to the procedure, a History and Physical was performed, and patient medications and allergies were reviewed. The patient's tolerance of previous anesthesia was also reviewed. The risks and benefits of the procedure and the sedation options and risks were discussed with the patient. All questions were answered, and informed consent was obtained. Prior Anticoagulants: The patient last took aspirin 2 days and Plavix (clopidogrel) 2 days prior to the procedure. ASA Grade Assessment: IV - A patient with severe systemic disease that is a constant threat to life. After reviewing the risks and benefits, the patient was deemed in satisfactory condition to undergo the procedure. After I obtained informed consent, the scope was passed under direct vision. Throughout the procedure, the patient's blood pressure, pulse, and oxygen saturations were monitored continuously. The scope was introduced through the anus and advanced to the cecum, identified by appendiceal orifice and ileocecal valve. The colonoscopy was performed without difficulty. The patient tolerated the procedure well. The quality of the bowel preparation was good. The ileocecal valve, appendiceal orifice, and rectum were photographed. Findings: A 5 mm polyp was found in the cecum. The polyp was sessile. The polyp was removed with a cold biopsy forceps. Resection and retrieval were complete. Scattered small-mouthed diverticula were found in the entire colon. Non-bleeding internal hemorrhoids were found during retroflexion. The hemorrhoids were medium-sized. Impression: - One 5 mm polyp in the cecum, removed with a cold biopsy forceps. Resected and retrieved. - Diverticulosis in the entire examined colon. - Non-bleeding internal hemorrhoids. Recommendation: - Return patient to ICU for ongoing care. - Advance diet as tolerated. - Continue present medications. - Await pathology results. - No repeat colonoscopy due to age. Dario Bowers, DO 09/06/2016 10:54:16 AM This report has been signed electronically. Note Initiated On: 09/06/2016 10:33 AM Dictated: 09/06/16 1033 Signed: 09/06/16 1054 The status of this report is Signed. Draft = Not yet reviewed or approved by Medical Physician. Signed = Reviewed and approved by Medical Physician. <ConsultingPhyMNE>f pt consult dr bae</ConsultingPhyMNE> <FamilyPhyMNE>f pt fam dr bae</FamilyPhyMNE> <OtherPhyMNE>f pt other dr bae</OtherPhyMNE> < PrimaryPhyMNE>f pt prim care dr bae</PrimaryPhyMNE> <ReferringPhyMNE>f pt referring dr bae</ReferringPhyMNE> Medication Reconciliation New Medications: Pantoprazole (Pantoprazole Sodium) 40 Mg Tab 40 MG PO BID for 30 Days, #60 TAB Take 1 tablet by mouth twice a day. Continued Medications: Albuterol Sulfate (Proair Hfa) 108 Mcg/ Aer 2 PUFFS INH QID PRN for SOB/Wheezing Allopurinol (Zyloprim) 100 Mg Tab 50 MG PO QAM, TAB Amiodarone Hcl (Cordarone) 200 Mg Tab 200 MG PO DAILY, TAB Aspirin (Aspirin Ec) 81 Mg Tab 81 MG PO HS Bumetanide (Bumex) 1 Mg Tab 1 MG PO DAILY, TAB Calcium Acetate (Phoslo 667 Mg) 667 Mg Cap 667 MG PO TIDM for 30 Days, CAP Clopidogrel (Plavix) 75 Mg Tab 75 MG PO HS, 0 Refills Insulin Human NPH (Humulin N) 100 Units/Ml Susp 12 UNITS SQ QAM Ipratropium-Albuterol (Duoneb) 3 Ml Nebu 1 TREATMENT INH AMHS, INHA Isosorbide Mononitrate Ext Rel (Imdur Ext Rel) 60 Mg Ertab 60 MG PO QAM, TAB Metoprolol Tartrate (Lopressor) 25 Mg Tab 12.5 MG PO BID for 30 Days, #60 TAB Nitroglycerin (Nitrostat) 0.4 Mg Tab 0.4 MG UT PRN, BTL Potassium Chloride Microencaps (Potassium Chloride Er) 20 Meq Tab 20 MEQ PO DAILY, #35 Probiotic Product (Probiotic) 1 Tab Tab 1 TAB PO DAILY Rosuvastatin Calcium (Crestor) 10 Mg Tab 10 MG PO HS, TAB Sennosides-Docusate Sodium (Stool Softener) 1 Tab Tab 1 TAB PO BID Discharge Exam Patient reports feeling well. She states that she has been experiencing a sharp pain on the left side of her chest the last two nights. She has felt this pain before intermittently for the last few months. In the last two nights , however, the pain has been constant until she receives medication. The pain is a sharp 7/10 pain but resolves completely with Tylenol. The patient still feels weak and fatigued. She was taken off oxygen yesterday and had been doing well during the day, but last night she felt a little short of breath, even though her O2 saturations were around 98% at that time. She wore the nasal cannula for bedtime. Her breathing has been fine this morning on room air. The patient also complains of constipation. She is otherwise ready to be discharged and agrees to physical therapy. Review of Systems: Constitutional: + fatigue, + weakness, No chills, No fever, No sweats Eyes: No diplopia, No eye pain, No worsening of vision ENT: No hearing loss, No nasal symptoms, No sore throat Respiratory: + shortness of breath (at bedtime, resolved), No cough, No wheezing Cardiovascular: + chest pain (7/10 sharp pain on left side, resolves with Tylenol), No claudication, No palpitations Abdomen: + constipation, No nausea, No pain, No vomiting Musculoskeletal: No calf pain, No joint pain, No muscle pain Genitourinary - Female: + problem reported (pt did not urinate yesterday after Farris was taken out), No dysuria, No hematuria, No urinary incontinence Neurologic: No numbness/tingling, No paralysis, No weakness Integumentary: No color change, No itch, No rash Physical Exam: General Appearance: WD/WN, no apparent distress, + pertinent finding ( appears fatigued; on hemodialysis during exam) Eyes: normal inspection, PERRL, EOMI ENT: normal ENT inspection, hearing grossly normal, pharynx normal Neck: supple, no JVD, trachea midline Respiratory/Chest: normal breath sounds, no respiratory distress, + crackles (bases), + pertinent finding (chest pain reproducible with palpation) Cardiovascular: regular rate, rhythm, no gallop, + systolic murmur Abdomen / GI: normal bowel sounds, non tender, soft Extremities: normal inspection, + swelling (trace), + pertinent finding ( lower extremities mildly TTP) Neurologic/Psychiatric: alert, normal mood/affect, oriented x 3 Skin: normal color, warm/dry, no rash, + pertinent finding (several areas of ecchymoses on skin) Hospital Course 86 y/o female with a history of ESRD with HD, anemia of chronic disease, CHF, CAD, PR, DM II, HTN, paroxysmal atrial fibrillation, HLD and gout who presented to the ED on 09/04 with diarrhea and bright red blood per rectum. Pt. is on ASA and Plavix. CXR shows small left pleural effusion improved from prior study in 07/2016, mild lower lung interstitial thickening. EKG shows new inverted T waves and ST depressions in inferior and lateral leads. Hgb 9.7 upon arrival, PLT stable at 212. -Admit to ICU for rectal bleeding, h/o cardiac disease and a-fib. Transferred to telemetry on 09/07 -GI consulted, appreciate recs. EGD and colonoscopy today with Dr. Bowers. 5 mm sessile polyp found in cecum, biopsied. Diverticula throughout entire colon. Non-bleeding internal hemorrhoids. EGD showed no esophageal abnormalities, but proceeded with dilation at GE junction due to dysphagia. Stomach and duodenum normal. -Cecum polyp biopsy reports shows non-specific inflammation tissue -Nephro consulted for dialysis, pt on M// schedule. -Tolerating solid foods -Pt. received total 4 units PRBC, Hgb remains stable in high 8s/9s -ED ordered cryoprecipitate and platelets for pt., however PLT count stable at [address] with Dr. Desir, not indicated for pt at this time. Orders were already in process at the time of examination and could not be canceled. -Check serial H&H q6h x4 -D/C IVF, CXR shows some pulmonary edema and pleural effusions -Trend serial cardiac enzymes q8h x 3 due to ischemic changes in EKG: troponin 0.046-->0.058-->0.057. Repeat troponin 0.618 on 09/07, 0.739 on 09/08. ESRD likely contributing. ICU consulted cardiology -Cardiology recs: no antithrombin therapy at this time, no further evaluation necessary unless troponin above 3 or further EKG changes. -Repeat EKG q am and with chest pain. EKG on 09/08 91 bpm, NSR, no ischemic changes. -Resume ASA and Plavix -Small bowel study ordered to further evaluate cause of bleeding, however pt was at dialysis. PCP can make judgement whether or not to pursue with study, GI did not recommend any further testing -Will continue Protonix 40 mg PO BID as outpatient Hypokalemia -Potassium 3.2 on 09/08 -KCl 40 mEq PO x 1 given prior to discharge ESRD on HD--due for dialysis M/W/F -Nephro on board -Continue PhosLo 667 mg PO TID with meals Anemia of chronic disease--baseline Hgb around 11 -Hgb 9.7 upon arrival -Hgb 10.2 on 09/08, has remained stable -4 units PRBC transfused as above -Continue to monitor with serial H&H H/o CHF -Continue Bumex 1 mg PO qd Diabetes mellitus type 2--Last HgbA1c checked on 07/06/16 was 5.5 -Insulin sliding scale -Check BSGs q ac and qhs, check q6h while NPO HTN--hypotensive while in ED, improving with fluids and blood -Resume Imdur and metoprolol as blood pressure is stable starting to become elevated HLD -Continue Crestor 10 mg PO qd Gout -Continue allopurinol DVT prophylaxis -Heparin 5000 units SC q12h -JASPAL Gay Code Status -Level I, FULL RESUSCITATION STATUS Pt. medically stable for discharge. Resume home medications as before, addition of Protonix. PT recommended that pt do acute rehab. Patient refuses SNF and prefers [facility] for acute rehab, but insurance did not cover this in the past. Otherwise, pt will go home with home services through [facility]. Total Time Spent: Greater than 30 minutes This includes examination of the patient, discharge planning, medication reconciliation, and communication with other providers. Discharge Instructions Please refer to the electronic Patient Visit Report (Discharge Instructions) for additional information.
[2017-01-10] MEDS ORDERED: PRED10TA PO (01:35)
[2017-01-11] MEDS ORDERED: [UNRECOGNIZED DRUG - CODE] PO (01:38)
[2017-01-11] MEDS ORDERED: NUTRCAP11 PO (01:38)
[2017-03-18] MEDS ORDERED: [UNRECOGNIZED DRUG - CODE] PO (11:29)
[2017-03-18] MEDS ORDERED: VANC1INJ72 IV (11:29)
[2017-04-23] MEDS ORDERED: SULF1TAB92 PO (15:25)
[2017-04-23] MEDS ORDERED: CEPH500C PO (15:25)
[2017-06-09] MEDS ORDERED: RXC5 PO (10:51)
== END 2016-09-08 18:08 | disposition home health service (06) | DRG 377 ==
LOC: CANRESERV → ENRESERVDT → ENRESERVTM → EDBD 10:05 → C.EDB 10:07 → EDBEDREQ 13:44 → C.MSICU 15:21 → EDBEDREQSVC 15:25 → C.2T 09-07 21:08
PROVIDERS: ADMIT Hospitalist; ATTEND Hospitalist
PROC: 05HM33Z Insertion of Infusion Device into Right Internal Jugular Vein, Percutaneous Approach (ICD-10-PCS; 2016-09-04)
PROC: 0D748ZZ Dilation of Esophagogastric Junction, Via Natural or Artificial Opening Endoscopic (ICD-10-PCS; principal; 2016-09-06 10:02)
PROC: 0DBH8ZZ Excision of Cecum, Via Natural or Artificial Opening Endoscopic (ICD-10-PCS; 2016-09-06 10:02)
DX: K92.2 Gastrointestinal hemorrhage, unspecified (principal); N18.6 End stage renal disease; I13.2 Hypertensive heart and chronic kidney disease with heart failure and with stage 5 chronic kidney disease, or end stage renal disease; I50.32 Chronic diastolic (congestive) heart failure; D62 Acute posthemorrhagic anemia; J96.10 Chronic respiratory failure, unspecified whether with hypoxia or hypercapnia; E11.22 Type 2 diabetes mellitus with diabetic chronic kidney disease; E78.5 Hyperlipidemia, unspecified; M10.9 Gout, unspecified; Z99.2 Dependence on renal dialysis; I25.2 Old myocardial infarction; Z95.1 Presence of aortocoronary bypass graft; I25.10 Atherosclerotic heart disease of native coronary artery without angina pectoris; Z95.5 Presence of coronary angioplasty implant and graft; Z87.01 Personal history of pneumonia (recurrent); E78.00 Pure hypercholesterolemia, unspecified; Z80.9 Family history of malignant neoplasm, unspecified; Z82.5 Family history of asthma and other chronic lower respiratory diseases; Z82.49 Family history of ischemic heart disease and other diseases of the circulatory system; Z83.3 Family history of diabetes mellitus; Z82.3 Family history of stroke; Z84.1 Family history of disorders of kidney and ureter; Z79.82 Long term (current) use of aspirin; Z79.899 Other long term (current) drug therapy; Z79.02 Long term (current) use of antithrombotics/antiplatelets; I48.0 Paroxysmal atrial fibrillation; J45.909 Unspecified asthma, uncomplicated; M19.90 Unspecified osteoarthritis, unspecified site; E11.21 Type 2 diabetes mellitus with diabetic nephropathy; Z87.19 Personal history of other diseases of the digestive system; Z87.442 Personal history of urinary calculi; E11.51 Type 2 diabetes mellitus with diabetic peripheral angiopathy without gangrene; I08.0 Rheumatic disorders of both mitral and aortic valves; K59.00 Constipation, unspecified; K64.8 Other hemorrhoids; K57.30 Diverticulosis of large intestine without perforation or abscess without bleeding; E21.3 Hyperparathyroidism, unspecified; I65.29 Occlusion and stenosis of unspecified carotid artery; D63.8 Anemia in other chronic diseases classified elsewhere; R13.10 Dysphagia, unspecified; K22.2 Esophageal obstruction; D12.0 Benign neoplasm of cecum; Z96.659 Presence of unspecified artificial knee joint; Z96.649 Presence of unspecified artificial hip joint; Z87.440 Personal history of urinary (tract) infections; Z80.3 Family history of malignant neoplasm of breast; K21.9 Gastro-esophageal reflux disease without esophagitis; E87.6 Hypokalemia

== ENCOUNTER 2016-10-10 06:31 | Day surgery (SDC) | payer OTHER ==
[~2016-10-10] VITALS: Ht 162.6 cm; Wt 76.0 kg
[~2016-10-10 06:31] MED LIST changes: +CEFAZOLIN 1000MG/55 ML D5W IV SCH; +D5W AND 1/4NSS 1,000 ML IV SCH; -GLUC10007 PO; -HYCUDL5 PO; -LACT1CAP6 PO; +NTRGSL/4 UT; +PATIENT'S HEIGHT AND/OR WEIGHT NEEDED SCH; +POTA20TA13 PO; +PROB1TAB16 PO; +PRT40 PO; -RBTUDL5 PO; +SENNTAB23 PO
[2016-10-10 06:54] VITALS: BP 135/53; PULSE 61; TEMP 36.5; O2SAT 95; Ht 162.6 cm; Wt 76.0 kg
[2016-10-10] MEDS ORDERED: D5W AND 1/4NSS 1,000 ML IV SCH (07:00)
[2016-10-10] MEDS ORDERED: METO25TA3 PO (07:24)
[2016-10-10] MEDS ORDERED: PANT40TA PO (07:24)
--- NOTE | 2016-10-10 07:28 | History and Physical ---
History & Physical Chief Complaint Non maturing fistula History of Present Illness The patient is a 86 year old female with multiple medical problems, who had a fistula placed in May of last year. Still no useable. She is here for a fistulogram and possible intervention. Denies BRENNER, fever, chills, chest pain, abd pain, N/V, rest pain, claudication, other complaints. Family present. Vein mapping completed today. Allergies Coded Allergies: No Known Allergies (Unverified , 05/16/16) Home Medications Scheduled Allopurinol (Zyloprim), 50 MG PO QAM Amiodarone Hcl (Cordarone), 200 MG PO DAILY Aspirin (Aspirin Ec), 81 MG PO HS Bumetanide (Bumex), 1 MG PO BID Calcium (Caltrate), 600 MG PO QAM Clopidogrel (Plavix), 75 MG PO HS Ferrous Fumarate (Iron), 18 MG PO BID Insulin Nph (Novolin-N), 15 UNITS SC QAM Ipratropium-Albuterol (Duoneb), 1 TREATMENT INH AMHS Isosorbide Mononitrate Ext Rel (Imdur Ext Rel), 60 MG PO QAM Metoprolol Tartrate (Lopressor) (Lopressor), 25 MG PO BID Potassium Chloride (Klor-Con M20), 20 MEQ PO BID Rosuvastatin Calcium (Crestor), 10 MG PO HS [Colon Health], 1 CAP PO DAILY Scheduled PRN Albuterol Sulfate (Proair Hfa), 2 PUFFS INH QID PRN for SOB/Wheezing Nitroglycerin (Nitrostat), 0.4 MG UT UD PRN for Chest Pain Problem List Medical Problems: (1) Ac Myocrd Infrct,Oth Inferior Wall,Subseq Epis Car (2) Acute kidney injury (3) Anemia (4) Aortocoronary Bypass (5) Bronchopneumonia (6) CHF exacerbation (7) Chronic Kidney Disease, Stage Iii (Moderate) (8) Chronic kidney disease, stage IV (severe) (9) Chronic kidney disease, stage V (10) Coronary artery disease (11) Coronary Atherosclerosis Of [place] Coronary Vessel (12) Diab Qiana Wo Compl, Type Ii Or Unspec Type, Not Uncntrld (13) Diabetes (14) Hypertension Nos (15) Knee Joint Replacement Status (16) New onset atrial fibrillation (17) Old Myocardial Infarct (18) Percutaneous Translum Coron Angioplasty Status (19) Pneumonia, Organism Nos (20) Pure Hypercholesterolem (21) Urin Tract Infection Nos Surgical / Medical History Hx Cardiac Surgery: Yes (CABG 1998 ; STENT ) Hx Abdominal Surgery: Yes (HYSTERECTOMY 1994) Hx Cancer Surgery: No Hx Thoracic Surgery: Yes (BACK SURGERY 2010) Hx Orthopedic: Yes (HIP REPLACEMENT; WRIST, L TKA) Hx Urinary Tract Surgery: Yes (KIDNEY STONES 2005) Past Medical/Surgical History: CHF, Heart Disease, Hypertension, Kidney Disease Family History Cancer SISTER (Breast cancer) Chronic kidney disease MOTHER Diabetes mellitus FATHER Heart disease FATHER Hypertension FATHER MOTHER Kidney disease Kidney stones Social History Smoking Status: Never Smoker Hx Tobacco Use In Past Year?: No Hx Alcohol Use - Type & Amnt: No Hx Substance Use -Type & Amnt: No Review of Systems Constitutional: + malaise, No chills, No fever Skin: No change in color Eyes: No visual changes ENMT: No sore throat Respiratory: No SOB No hemoptysis Cardiovascular: No chest pain, No chest tightness, No palpitations, No syncope Gastrointestinal: No diarrhea, No nausea, No vomiting Genitourinary - Female: No dysuria, No hematuria Neurologic: + weakness, No dizziness, No headache Physical Exam Constitutional: General Apperance: well-nourished, well-developed Level of Distress: NAD, Psychiatric: Mental Status: normal mood, normal affect, awake and alert Orientation: oriented to time, to place, to person Memory: recent memory normal, remote memory normal Head: normocephalic, atraumatic Eyes: EOM: EOMI ENMT: normal ENT inspection, hearing grossly normal Neck: supple, trachea midline Lungs: Respiratory effort: normal Auscultation: clear Cardiovascular: Apical Impulse: not displaced Heart Auscultation: RRR, no rubs, no gallops Peripheral Pulses: Pulses: full and equal, in all extremities except if noted Bruits: none appreciated Carotid Pulse: normal on the left, normal on the right Brachial Pulses: normal on the left, normal on the right Radial Pulse: normal on the left, normal on the right Femoral Pulse: normal on the left, normal on the right Posterior Tibialis Pulse: decreased on the left, decreased on the right Dorsalis Pedis Pulse: decreased on the left, decreased on the right Abdomen: Bowel Sounds: normal Inspection & Palpation: soft, non-distended, no tenderness, guarding & rebound Musculoskeletal: normal strength (5/5 throughout), normal tone Extremities: Upper Right: no cyanosis, no varicosities, no edema Upper Left: no cyanosis, no varicosities, no palpable cord, no edema Lower Right: no cyanosis, no varicosities, no palpable cord, no edema Lower Left: no cyanosis, no varicosities, no edema Neurologic: Cranial Nerves: grossly intact Sensation: grossly intact Assessment and Plan ASSESSMENT and PLAN: Imp: Non maturing av fistula Plan: Patient is admitted for a fistulogram with possible intervention. I have discussed the risks options and benefits of the procedure with the patient. The patient understands the risks options and benefits and agrees to the procedure.
--- NOTE | 2016-10-10 07:29 | Procedure Note ---
Pre-Mod Sedation Assessment General Date of Moderate Sedation: Oct 10, 2016. Vital Signs: Vital Signs Past 12 Hours Date Time Temp Pulse Resp B/P Pulse Ox O2 Delivery O2 Flow Rate FiO2 10/10/16 06:54 36.5 61 20 135/53 95 Room Air Pre-Sedation Airway Assessment Oral Cavity: Dentures Smoking Status: Never Smoker Mallampati Classification: Class I ASA Classification: Class II Notes The planned sedation has been discussed with the patient and consent obtained. I have identified the patient, determined the appropriateness of sedation and have assessed the patient immediately prior to the procedure. All medicine(s) and interventions are by my order.
[2016-10-10] MEDS ORDERED: FENTANYL CITRATE INJ 50 MCG/1 ML 2 ML VIAL ONE (07:30)
[2016-10-10] MEDS ORDERED: MIDAZOLAM HCL 1 MG/ML 2ML VIAL ONE (07:31)
[2016-10-10] MEDS ORDERED: MIDAZOLAM HCL 1 MG/ML 2ML VIAL IV ONE (08:15)
[2016-10-10] MEDS ORDERED: FENTANYL CITRATE INJ 50 MCG/1 ML 2 ML VIAL IV ONE (08:15)
[2016-10-10] MEDS ORDERED: LIDOCAINE HCL 1% 20 ML VIAL INJ ONE (08:45)
--- NOTE | 2016-10-10 08:45 | Procedure Note ---
Post-Moderate Sedation Plan General Date of Moderate Sedation Oct 10, 2016. Vital Signs: Vital Signs Past 12 Hours Date Time Temp Pulse Resp B/P Pulse Ox O2 Delivery O2 Flow Rate FiO2 10/10/16 06:54 36.5 61 20 135/53 95 Room Air Review - Discharge Plan Post Moderate Sedation Plan: On clinical assessment, the patient appears to have tolerated the conscious sedation without complications. Patient is recovering as anticipated. Patient will continue to be monitored by nursing and may be discharged when conscious sedation discharge criteria are met.
[2016-10-10] MEDS ORDERED: VISIPAQUE IV ONE (08:46)
--- NOTE | 2016-10-10 08:46 | [facility] Post Operative Brief Note ---
Immediate Operative Summary Operative Date Oct 10, 2016. Pre-Operative Diagnosis Non maturing av fistula Post-Operative Diagnosis Same Procedure(s) Performed Fistulogram left upper arm Sedondary Puncture for Intervention Percutaneous Transluminal Angioplasty Venous Moderate Conscious Sedation ([id number]) Surgeon Josefina Mail Clerk Surgeon(s) None Estimated Blood Loss 5 Findings mod stenosis arterial end Specimens None Anesthesia Local with moderate conscious sedation Complication(s) None Disposition
[2016-10-10 08:50] VITALS: BP 126/57; PULSE 62; TEMP 36.7; O2SAT 92
--- NOTE | 2016-10-10 08:51 | Discharge Instructions ---
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 Post Anesthesia Instructions: If you have had General Anesthesia or IV Sedation: * Do not drive today. * Resume driving when surgeon permits. * Do not make important decisions or sign legal documents today. * Call surgeon for: 1. Temperature elevations greater than 101 degrees F. 2. Uncontrollable pain. 3. Excessive bleeding. 4. Persistent nausea and vomiting. 5. Medication intolerance (nausea, vomiting or rash). * For nausea and vomiting use only clear liquids such as: tea, soda, bouillon until nausea subsides, then gradually increase diet as tolerated. * If you have any concerns or questions, call your surgeon's office. If physician is unavailable and it is an emergency, call 911 or go to the nearest emergency room. . Instructions / Follow-Up Instructions / Follow-Up Take this to dialysis and give to nurses May use fistula starting Oct 16. Marked with blue line. Large size on fistulogram , approx 8mm at smallest Call [phone] with any questions or concerns. SPECIAL CARE INSTRUCTIONS: Medications: * Continue to take your medications as directed. If you have been given a prescription for Plavix, please fill it immediately and take as directed. Incision Care: * Your puncture site may have some bruising and minor swelling for about one week. * You will have a small dressing covering your puncture site. You may remove the dressing after 24 hours and shower. You may let the warm soapy water run over it, but be sure to dry the puncture site well and keep it dry. * DO NOT IMMERSE THE INCISION IN A TUB/POOL/etc. UNTIL HEALED. * Puncture sites should be kept covered with a band-aid until it begins to heal. Restrictions: * Depending on whether you leg or arm was punctured to access the arteries, you will be required to lay flat, hold your arm still, or both, for about 4 hours after the procedure to prevent bleeding. * Limit your activity for the first 48 hours. You may walk and go up and down steps. Avoid excessive bending or movement at the puncture site. Possible Complications: * Excessive Swelling - after blood flow is improved you may notice increased swelling in the lower legs. This is a normal response. This usually depends on the amount of blockages in the leg, how long they have been there prior to your procedure and how much blood flow was restored. Elevating your legs will help to improve this. Please notify our office ([phone] ) if the swelling does not go away after lying in bed overnight. * Infection/Drainage/Bleeding - Drainage or bleeding from the puncture site should be minimal. If you have excessive bleeding or drainage, call our office ([phone]) right away. * Pain - You may experience some mild pain or soreness at your puncture site. If your pain does not improve, please contact our office ([phone]). Call your doctor and seek emergent treatment if you develop: * Temperature above 101 degrees * Any fever or chills * Any redness or purulent drainage from the puncture site * Any new dusky/blue colored toes or feet with coolness or sharp or aching pain. SKIN IRRITATION: * You may experience some redness and/or swelling in the area where radiation was administered. If any skin irritation occurs, please contact your family physician. FOLLOW UP VISIT: Keep any scheduled doctor appointments. Diet Recommendations Recommended Home Diet: resume previous diet Procedures Procedures Performed: Fistulogram left upper arm Sedondary Puncture for Intervention Percutaneous Transluminal Angioplasty Venous Moderate Conscious Sedation ([id number]) Pending Studies Studies pending at discharge: no Medical Emergencies . Who to Call and When: Medical Emergencies: If at any time you feel your situation is an emergency, please call 911 immediately. . Non-Emergent Contact Non-Emergency issues call your: Surgeon . . "Provider Documentation" section prepared by Adebayo oRcha.
[2016-10-10 09:05] VITALS: BP 119/76; PULSE 63; O2SAT 92
[2016-10-10 09:20] VITALS: BP 106/53; PULSE 63; TEMP 36.4; O2SAT 93
--- NOTE | 2016-10-10 09:26 | DIAGNOSTIC IMAGING REPORT ---
DATE OF PROCEDURE: 10/10/2016 PREOPERATIVE DIAGNOSIS: Non-maturing fistula left upper arm. POSTOPERATIVE DIAGNOSIS: Same. PROCEDURE: 1. Fistulogram left upper arm AV fistula. 2. Balloon angioplasty of the proximal anastomosis, 4 mm balloon. 3. Secondary puncture for intervention. 4. Moderate conscious sedation, 26 minutes. SURGEON: Dr. Rocha. ANESTHETIC: Local with monitored conscious sedation. PROCEDURE INDICATIONS: The patient is an 86-year-old female with a left upper arm fistula which dialysis is not using due to lack of maturation. Fistulogram was recommended. She understood the risks, options and benefits, and agreed to go ahead with this procedure. The patient was taken to the angio suite and placed in supine position. After the left arm was prepped and draped in a sterile manner, local anesthetic was administered. A percutaneous puncture was made in the proximal portion of the fistula using micropuncture technique and micropuncture sheath was inserted. Fistulogram was then performed. This showed the fistula to be widely patent from the proximal end all the way up through the superior vena cava. Minimal diameter was approximately 8 mm in size. Proximal and just beyond the anastomosis was in the range of 10-12 mm. We did do a retrograde injection which showed the suggestion of a proximal stenosis at the arterial anastomosis. We, therefore, anesthetized the fistula higher up and did a retrograde puncture with a 5-Turkmen sheath inserted. An 0.035 wire was then passed through the arterial anastomosis. A 4 x 2 balloon was then used and the arterial anastomosis was dilated. There was a better thrill post-dilatation. At that point, there was a branch that we tried to get a wire in to embolize; however, the branch was fairly small, we could not cannulate it. We, therefore, pulled the sheaths. Adequate hemostasis was obtained. Sterile dressings were applied to the puncture site. There was an excellent thrill throughout the graft. We did irina the fistula with a blue marker to aide dialysis in finding it. The patient left the angio suite in good condition and tolerated the procedure well.
[2017-01-10] MEDS ORDERED: PRED10TA PO (01:35)
[2017-01-11] MEDS ORDERED: [UNRECOGNIZED DRUG - CODE] PO (01:38)
[2017-01-11] MEDS ORDERED: NUTRCAP11 PO (01:38)
[2017-03-18] MEDS ORDERED: [UNRECOGNIZED DRUG - CODE] PO (11:29)
[2017-03-18] MEDS ORDERED: VANC1INJ72 IV (11:29)
[2017-04-23] MEDS ORDERED: CEPH500C PO (15:25)
[2017-04-23] MEDS ORDERED: SULF1TAB92 PO (15:25)
== END 2016-10-10 09:35 | disposition home or self-care (01) ==
LOC: C.ACU 06:31
PROVIDERS: ATTEND Surgery Vascular Surgery
DX: T82.598A Other mechanical complication of other cardiac and vascular devices and implants, initial encounter (principal); Y84.8 Other medical procedures as the cause of abnormal reaction of the patient, or of later complication, without mention of misadventure at the time of the procedure; I12.9 Hypertensive chronic kidney disease with stage 1 through stage 4 chronic kidney disease, or unspecified chronic kidney disease; N18.9 Chronic kidney disease, unspecified; I48.91 Unspecified atrial fibrillation; I25.10 Atherosclerotic heart disease of native coronary artery without angina pectoris; I25.2 Old myocardial infarction; I50.9 Heart failure, unspecified; D64.9 Anemia, unspecified; E11.9 Type 2 diabetes mellitus without complications; Z95.1 Presence of aortocoronary bypass graft; Z96.659 Presence of unspecified artificial knee joint; Z95.5 Presence of coronary angioplasty implant and graft; Z90.710 Acquired absence of both cervix and uterus; Z96.649 Presence of unspecified artificial hip joint; Z98.890 Other specified postprocedural states

== ENCOUNTER → 2016-10-17 | Outpatient (CLI) | payer OTHER ==
[~2016-10-17] MED LIST changes: +ACET325T96 PO; -BUME1TAB PO; -CEFAZOLIN 1000MG/55 ML D5W IV SCH; +CEPH500C PO; +CMD5 PO; -D5W AND 1/4NSS 1,000 ML IV SCH; +HPRIS5MX SC; +HYDR5SYP11 PO; +ISOS30TA35 PO; -LPR25 PO; +METO25TA3 PO; +NUTRCAP11 PO; +NVLNI SQ; +PANT40TA PO; -PATIENT'S HEIGHT AND/OR WEIGHT NEEDED SCH; +POLY335019 PO; -POTA20TA13 PO; +PRED10TA PO; -PRT40 PO; +SEVE800T7 PO; +SULF1TAB92 PO; +VANC1INJ72 IV; +WARF4TAB43 PO; +[UNRECOGNIZED DRUG - CODE] PO; +[UNRECOGNIZED DRUG - CODE] PO
[2016-10-17 20:08] LABS: INFLUENZA B PCR Neg for Influ B (NEG)
[2016-10-17 20:25] LABS: INFLUENZA A PCR POS for Influ A (NEG)
== END | disposition home or self-care (01) ==
LOC: C.LABBFT 11:24
PROVIDERS: ATTEND Internal Medicine
DX: R68.89 Other general symptoms and signs (principal)

== ENCOUNTER → 2016-11-24 | Outpatient (CLI) | payer OTHER ==
[2016-11-24 16:42] LABS: ALT/SGPT 16 U/L (12-78); AST/SGOT 20 U/L (15-37)
[2016-11-24 17:13] LABS: CHOLESTEROL/HDL RATIO 1.8
== END | disposition home or self-care (01) ==
LOC: C.LABBFT 12:45
PROVIDERS: ATTEND Internal Medicine Cardiovascular Disease
DX: E78.00 Pure hypercholesterolemia, unspecified (principal); E78.5 Hyperlipidemia, unspecified

== ENCOUNTER → 2016-12-14 | Outpatient (CLI) | payer OTHER ==
[~2016-12-14] MED LIST changes: +AZIT-57 PO; +BENZ100C7 PO; +FLNIN; +GFNSR600 PO; +GUAISYP4 PO; +HYDR-4313 PO; +LEVO-18 PO; +LEVO75TA5 PO; +OXYC1TAB3 PO; +PLV75 PO; +PRD5 PO; +RXC5 PO; +SALI0.6510; +SEVE1TAB PO
[2016-12-14 12:29] LABS: CHOLESTEROL/HDL RATIO 1.8
[2016-12-14 13:38] LABS: ESTIMATED AVERAGE GLUCOSE 114 mg/dl; HA1C FLAG Normal (Normal)
== END | disposition home or self-care (01) ==
LOC: C.LABBFT 09:05
PROVIDERS: ATTEND Physician Assistant Medical
DX: E11.9 Type 2 diabetes mellitus without complications (principal); E78.00 Pure hypercholesterolemia, unspecified

== ENCOUNTER → 2017-01-09 | Outpatient (CLI) | payer OTHER ==
--- NOTE | 2017-01-09 13:55 | DIAGNOSTIC IMAGING REPORT ---
CHEST 2 VIEWS ROUTINE CLINICAL HISTORY: J45.909 Asthmatic [id number] dyspnea COMPARISON STUDY: 09/07/2016 FINDINGS: Moderate stable cardiomegaly. Prominence of the central pulmonary vasculature considered chronic. Central catheter in the superior vena cava. Trace pleural fluid both gastric angles. Pulmonary vascular congestion. IMPRESSION: Chronic change. Pulmonary venous congestion. Electronically signed by: Raulito Acosta M.D. 01/09/2017 1:54 PM Dictated Date/Time: 01/09/2017 1:53 PM
== END | disposition home or self-care (01) ==
LOC: C.RAD1850 13:38
PROVIDERS: ATTEND Physician Assistant
DX: J45.909 Unspecified asthma, uncomplicated (principal); R09.89 Other specified symptoms and signs involving the circulatory and respiratory systems

== ENCOUNTER 2017-01-10 23:52 | Inpatient (IN) | payer OTHER ==
[~2017-01-10] VITALS: Ht 167.6 cm; Wt 76.7 kg
[~2017-01-10 23:52] MED LIST changes: -ACET325T96 PO; -ALLO100T PO; -AMIO200T4 PO; -AZIT-57 PO; -BENZ100C7 PO; -CEPH500C PO; -CMD5 PO; -CRS/10 PO; -FLNIN; -GFNSR600 PO; -GUAISYP4 PO; -HPRIS5MX SC; -HYDR-4313 PO; -HYDR5SYP11 PO; -ISOS30TA35 PO; -LEVO-18 PO; -LEVO75TA5 PO; -NUTRCAP11 PO; -NVLNI SQ; -OXYC1TAB3 PO; -PANT40TA PO; -PLV75 PO; -POLY335019 PO; -PRD5 PO; -RXC5 PO; -SALI0.6510; -SENNTAB23 PO; -SEVE1TAB PO; -SEVE800T7 PO; -SULF1TAB92 PO; -VANC1INJ72 IV; -WARF4TAB43 PO; -[UNRECOGNIZED DRUG - CODE] PO; -[UNRECOGNIZED DRUG - CODE] PO
[2017-01-11] VITALS (9 sets, daily range): BP systolic 117–151; BP diastolic 50–76; PULSE 65–80; TEMP 36.3–36.9; O2SAT 96–99; BMI 27.9
[2017-01-11 00:32] LABS: COMPLETE YES; HEMATOCRIT 32.2 % (37-47); IG% 0.5 %; LYMPH % 13.3 %; LYMPH ABS # 0.76 K/uL (1.2-3.4); MEAN CELL VOLUME 101.3 fL (80-100); MEAN CORPUSCULAR HEMOGLOBIN 32.7 pg (25-34); MEAN CORPUSCULAR HGB CONC 32.3 g/dl (32-36); MEAN PLATELET VOLUME 9.9 fL (7.4-10.4); NEUT % 74.2 %; PLATELET COUNT 168 K/uL (130-400); RED BLOOD COUNT 3.18 M/uL (4.2-5.4); WHITE BLOOD COUNT 5.73 K/uL (4.8-10.8)
[2017-01-11 00:43] LABS: ALT/SGPT 12 U/L (12-78); AST/SGOT 15 U/L (15-37); BLOOD UREA NITROGEN 22 mg/dl (7-18); BUN/CREATININE RATIO 7.7 (10-20); CALCIUM 8.9 mg/dl (8.5-10.1); CARBON DIOXIDE 32 mmol/L (21-32); CHLORIDE 99 mmol/L (98-107); GLUCOSE 233 mg/dl (70-99); POTASSIUM 3.4 mmol/L (3.5-5.1); SODIUM 140 mmol/L (136-145)
[2017-01-11 00:51] LABS: ALKALINE PHOSPHATASE 72 U/L (45-117)
[2017-01-11] MEDS ORDERED: SEVE800T7 PO (01:35)
[2017-01-11] MEDS ORDERED: HYDR5SYP11 PO (01:35)
[2017-01-11] MEDS ORDERED: NVLNI SQ (01:35)
[2017-01-11] MEDS ORDERED: HEPARIN 25000 UNIT/500 ML D5W ONE (02:31)
[2017-01-11] MEDS ORDERED: HEPARIN SOD 5000 UNIT/0.5 ML CARP ONE (02:31)
--- NOTE | 2017-01-11 02:42 | EMERGENCY ROOM VISIT NOTE ---
History First contact with patient: 00:06 Chief Complaint: CHEST PAIN Stated Complaint: CHEST PAIN Nursing Triage Summary: Patient reports left sided chest pain radiating to left arm intermittently since 2099. Patient has hx cardiac bypass surgery and A-fib. Reports shortness of breath but not more than her normal. Patient uses 2L oxygen at all times. Patient is a dialysis patient and had dialysis today. History of Present Illness The patient is a 86 year old female who presents to the Emergency Room with complaints of left-sided chest pain that radiates up to her shoulder and left calf pain and swelling for the past few days. Chest pain started tonight at [address] 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 She is history of heart disease. She is on Plavix and aspirin. She's had blood clots before in her left leg. Patient describes the chest pain as discomfort, 5 out of 10 and nothing makes it better or worse. No recent stress test or echocardiogram. She gets dialysis Sunday. She did go today. Patient complains of unchanged dyspnea. Patient denies fever, abdominal pain, numbness, tingling, diaphoresis. Review of Systems See HPI for pertinent positives & negatives. A total of 10 systems reviewed and were otherwise negative. Past Medical/Surgical History Medical Problems: (1) Ac Myocrd Infrct,Oth Inferior Wall,Subseq Epis Car (2) Acute kidney injury (3) Anemia (4) Aortocoronary Bypass (5) Bronchopneumonia (6) CHF exacerbation (7) Chronic Kidney Disease, Stage Iii (Moderate) (8) Chronic kidney disease, stage IV (severe) (9) Chronic kidney disease, stage V (10) Coronary artery disease (11) Coronary Atherosclerosis Of [place] Coronary Vessel (12) Diab Qiana Wo Compl, Type Ii Or Unspec Type, Not Uncntrld (13) Diabetes (14) DVT (deep venous thrombosis) (15) Dyspnea (16) 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 (17) ESRD (end stage renal disease) on dialysis (18) Hypertension (19) Hypertension Nos (20) Hypoxia (21) Knee Joint Replacement Status (22) New onset atrial fibrillation (23) NSTEMI (non-ST elevated myocardial infarction) (24) NSTEMI (non-ST elevated myocardial infarction) (25) Old Myocardial Infarct (26) Percutaneous Translum Coron Angioplasty Status (27) Peripheral vascular disease (28) Pneumonia, Organism Nos (29) Prolonged Q-T interval on ECG (30) Pulmonary embolism (31) Pure Hypercholesterolem (32) Rectal bleeding (33) Shortness of breath (34) Urin Tract Infection Nos Family History Asthma Cancer SISTER (Breast cancer) Chronic kidney disease MOTHER Diabetes mellitus FATHER Heart disease FATHER Hypertension FATHER MOTHER Kidney disease Kidney stones Stroke Social History Smoking Status: Never Smoker Alcohol Use: none Drug Use: none Marital Status: Housing Status: lives alone Occupation Status: retired Current/Historical Medications Scheduled Allopurinol (Zyloprim), 50 MG PO QAM Amiodarone Hcl (Cordarone), 200 MG PO QAM Aspirin (Aspirin Ec), 81 MG PO HS Clopidogrel (Plavix), 75 MG PO HS Insulin Human NPH (Novolin N), 10 UNITS SQ QAM Multiple Vitamin (Renal Multivitamin Formul), 2 TABS PO QAM Nutritional Supplements (Colon Formula), 1 CAP PO QAM Pantoprazole (Protonix), 40 MG PO QAM Prednisone (Prednisone), PO UD Rosuvastatin Calcium (Crestor), 10 MG PO HS Sennosides-Docusate Sodium (Stool Softener), 1 TAB PO BID Sevelamer Carbonate (Renvela), 800 MG PO WM Scheduled PRN Hydrocodone W/ Homatropine (Hycodan 5/1.5MG 5 Ml), 1 TSP PO Q4 PRN for Cough Allergies Coded Allergies: No Known Allergies (Unverified , 01/11/17) Physical Exam Vital Signs Date Time Temp Pulse Resp B/P Pulse Ox O2 Delivery O2 Flow Rate FiO2 01/11/17 01:44 78 18 128/81 95 Nasal Cannula 2.0 01/11/17 00:17 81 01/11/17 00:14 95 Nasal Cannula 2.0 01/11/17 00:11 88 Room Air 01/10/17 23:57 36.5 70 19 114/44 95 Room Air Physical Exam VITALS: Vitals are noted on the nurse's note and reviewed by myself. Vital signs stable. GENERAL: Pleasant female, in no acute distress, nondiaphoretic, well-developed well-nourished. SKIN: The skin was without rashes, erythema, edema, or bruising. There is no tenting of the skin. Capillary reflex less than 2 seconds. HEAD: Normocephalic atraumatic. EARS: External auditory canals clear, tympanic membranes pearly doyle without erythema or effusion bilaterally. EYES: Pupils equal round and reactive to light and accommodation. Conjunctivae without injection, sclerae without icterus. Extraocular movements intact. NOSE: Patent, turbinates without inflammation or discharge. MOUTH: Mucous membranes moist. Pharynx without erythema or exudate. Uvula midline. Airway patent. Tongue does not deviate. NECK: Supple without nuchal rigidity. No lymphadenopathy. No thyromegaly. Cervical spine is nontender. No JVD. HEART: Regular rate and rhythm LUNGS: Clear to auscultation bilaterally without wheezes, rales or rhonchi. No dullness to percussion. No retractions or accessory muscle use. ABDOMEN: Positive bowel sounds x 4. Normal tympanic percussion. Soft, nontender, without masses or organomegaly. Jarvis sign negative. No guarding or rebound tenderness. MUSCULOSKELETAL: Left calf slightly edematous and erythematous tender to palpation, right calf nontender to palpation No muscle atrophy noted. + 2 PP B NEURO: Patient was alert and oriented to person place and time. Normal sensation to light and sharp touch. No focal neurological deficits. Medical Decision & Procedures Laboratory Results 01/11/17 00:15 Red Blood Count 3.18, Mean Corpuscular Volume 101.3, Mean Corpuscular Hemoglobin 32.7, Mean Corpuscular Hemoglobin Concent 32.3, Mean Platelet Volume 9.9, Neutrophils (%) (Auto) 74.2, Lymphocytes (%) (Auto) 13.3, Monocytes (%) ( Auto) 12.0, Eosinophils (%) (Auto) 0.0, Basophils (%) (Auto) 0.0, Neutrophils # (Auto) 4.25, Lymphocytes # (Auto) 0.76, Monocytes # (Auto) 0.69, Eosinophils # ( Auto) 0.00, Basophils # (Auto) 0.00 01/11/17 00:15 Test 01/11/17 00:15 White Blood Count 5.73 K/uL (4.8-10.8) Red Blood Count 3.18 M/uL (4.2-5.4) Hemoglobin 10.4 g/dL (12.0-16.0) Hematocrit 32.2 % (37-47) Mean Corpuscular Volume 101.3 fL (80-100) Mean Corpuscular Hemoglobin 32.7 pg (25-34) Mean Corpuscular Hemoglobin Concent 32.3 g/dl (32-36) Platelet Count 168 K/uL (130-400) Mean Platelet Volume 9.9 fL (7.4-10.4) Neutrophils (%) (Auto) 74.2 % Lymphocytes (%) (Auto) 13.3 % Monocytes (%) (Auto) 12.0 % Eosinophils (%) (Auto) 0.0 % Basophils (%) (Auto) 0.0 % Neutrophils # (Auto) 4.25 K/uL (1.4-6.5) Lymphocytes # (Auto) 0.76 K/uL (1.2-3.4) Monocytes # (Auto) 0.69 K/uL (0.11-0.59) Eosinophils # (Auto) 0.00 K/uL (0-0.5) Basophils # (Auto) 0.00 K/uL (0-0.2) RDW Standard Deviation 58.2 fL (36.4-46.3) RDW Coefficient of Variation 15.8 % (11.5-14.5) Immature Granulocyte % (Auto) 0.5 % Immature Granulocyte # (Auto) 0.03 K/uL (0.00-0.02) Anion Gap 9.0 mmol/L (3-11) Estimated GFR () 16.4 Estimated GFR (Non- 14.2 BUN/Creatinine Ratio 7.7 (10-20) Calcium Level 8.9 mg/dl (8.5-10.1) Total Bilirubin 0.4 mg/dl (0.2-1) Direct Bilirubin 0.2 mg/dl (0-0.2) Aspartate Amino Transf (AST/SGOT) 15 U/L (15-37) Alanine Aminotransferase (ALT/SGPT) 12 U/L (12-78) Alkaline Phosphatase 72 U/L (45-117) Total Creatine Kinase 30 U/L (26-192) Creatine Kinase MB 0.9 ng/ml (0.5-3.6) Creatine Kinase MB Ratio 3.0 (0-3.0) Troponin I 0.141 ng/ml (0-0.045) Total Protein 7.1 gm/dl (6.4-8.2) Albumin 2.7 gm/dl (3.4-5.0) Lipase 74 U/L (73-393) ED Course Prior records/ancillary studies reviewed. Triage Nursing notes reviewed. Additional history obtained from family. The patient's history was concerning for chest pain and leg pain and swelling. Differential diagnosis: Etiologies such as DVT, cellulitis, cardiac ischemia, aortic dissection, pulmonary embolism, pneumonia, pneumothorax, musculoskeletal, infections, pericarditis, myocarditis, esophageal rupture, gastrointestinal, as well as others were entertained. Physical examination: As above. ER treatment provided: Heparin On reassessment the patient felt better. Diagnostic interpretation by me: The electrocardiogram was negative for pathologic change. First-degree AV block with no acute ST-T wave changes, intraventricular block, rate of 85. Impression first-degree AV block intraventricular block interpreted by myself The labs revealed elevated troponin. Elevated creatinine. Imaging studies: Chest x-ray with no acute consolidation, pneumothorax or free air per my interpretation US concerning for DVT per Stat Rad of left leg Consultation: A consultation was placed with the hospitalist, Dr. Hernandez. The case was discussed and diagnostics were reviewed. The patient was evaluated in the ER for further treatment. Exam and history seem concerns for DVT with possible PE. Patient has an elevated creatinine. She was started on Heparin for possible PE as she has chest pain and an elevated troponin. She will be evaluated by medicine for possible admission. By the evaluation outlined above emergent etiologies such as aortic dissection, pneumonia, pneumothorax, infections, pericarditis, myocarditis, gastrointestinal, as well as others were deemed relatively unlikely. The pt informed about the findings as listed above. All questions were answered and pleased with the treatment. Case reviewed with my attending Medical Decision As above Impression Primary Impression: Substernal precordial chest pain Additional Impressions: Left leg DVT possible PE Departure Information Dispostion Being Evaluated By Hospitalist Condition FAIR Referrals Cooper Hart M.D. (PCP) Patient Instructions My [facility] Problem Qualifiers
[2017-01-11 03:03] LABS: INR 1.1 (0.9-1.1); PARTIAL THROMBOPLASTIN RATIO 1.1; PROTHROMBIN TIME (PATIENT) 11.6 SECONDS (9.0-12.0)
[2017-01-11] MEDS ORDERED: HYDROCODONE/HOMATROPINE SYRUP 5MG/1.5MG 5ML UDP PO PRN (03:15)
--- NOTE | 2017-01-11 03:38 | History and Physical ---
History & Physical Date & Time of Service: January 11, 2017 at 03:04 Chief Complaint: Chest Pain Primary Care Physician: Cooper Hart M.D. History of Present Illness Source: patient, clinic records, hospital records Mrs Rahman is an 86 year old female who presents to the ER with 3 hours of chest pain. This was on the left side of her chest, sharp, severity 5/10, associated shortness of breath and mild diaphoresis. She denies any nausea. She has also had progressively worsening left leg swelling and pain for weeks although her left leg has always been slightly larger than her right after her vein graft for her CABG. In the ER she had a US doppler of both legs with the left showing a non occlusive common femoral vein through popliteal vein DVT. She also had an elevated troponin. 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 (4) Coronary Atherosclerosis Of [place] Coronary Vessel (5) T2 diabetes mellitus (6) Hypertension Nos (7) Knee Joint Replacement Status (8) Old Myocardial Infarct (9) Percutaneous Translum Coron Angioplasty Status (10) Hx Pneumonia (11) Hypercholesterolemia (12) Hx Urin Tract Infection Nos Family History Asthma Cancer SISTER (Breast cancer) Chronic kidney disease MOTHER Diabetes mellitus FATHER Heart disease FATHER Hypertension FATHER MOTHER Kidney disease Kidney stones Stroke Social History Smoking Status: Never Smoker Drug Use: none Marital Status: Housing status: lives with family Occupational Status: retired Immunizations History of Influenza Vaccine: Yes Influenza Vaccine Date: Apr 17, 2012 History of Tetanus Vaccine?: Yes Tetanus Immunization Date: Dec 16, 2006 History of Pneumococcal: Yes Pneumococcal Date: Dec 17, 2007 History of Hepatitis B Vaccine: No Multi-Drug Resistant Organisms History of MDRO: No Allergies Coded Allergies: No Known Allergies (Unverified , 01/11/17) Home Medications Scheduled Allopurinol (Zyloprim), 50 MG PO QAM Amiodarone Hcl (Cordarone), 200 MG PO QAM Aspirin (Aspirin Ec), 81 MG PO HS Clopidogrel (Plavix), 75 MG PO HS Insulin Human NPH (Novolin N), 10 UNITS SQ QAM Multiple Vitamin (Renal Multivitamin Formul), 2 TABS PO QAM Nutritional Supplements (Colon Formula), 1 CAP PO QAM Pantoprazole (Protonix), 40 MG PO QAM Prednisone (Prednisone), PO UD Rosuvastatin Calcium (Crestor), 10 MG PO HS Sennosides-Docusate Sodium (Stool Softener), 1 TAB PO BID Sevelamer Carbonate (Renvela), 800 MG PO WM Scheduled PRN Hydrocodone W/ Homatropine (Hycodan 5/1.5MG 5 Ml), 1 TSP PO Q4 PRN for Cough Review of Systems Constitutional: No chills, No fever Eyes: No worsening of vision ENT: No hearing loss Respiratory: + cough, + shortness of breath, + sputum, No wheezing Cardiovascular: + chest pain, + edema, + orthopnea, No PND, No claudication, No palpitations Abdomen: No GI bleeding, No constipation, No diarrhea, No nausea, No pain, No vomiting Musculoskeletal: No joint pain, No muscle pain Genitourinary - Female: No dysuria, No urinary frequency Psychiatric: No anxiety, No depression symptoms Endocrine: + fatigue, No excessive thirst, No excessive urination Hematologic / Lymphatic: + abnormal bleeding/bruising, + clotting problems, No night sweats, No swollen lymph nodes Integumentary: No itch, No rash Physical Exam Vital Signs Date Time Temp Pulse Resp B/P Pulse Ox O2 Delivery O2 Flow Rate FiO2 01/11/17 01:44 78 18 128/81 95 Nasal Cannula 2.0 01/11/17 00:17 81 01/11/17 00:14 95 Nasal Cannula 2.0 01/11/17 00:11 88 Room Air 01/10/17 23:57 36.5 70 19 114/44 95 Room Air General Appearance: WD/WN, no apparent distress Head: normocephalic, atraumatic Eyes: normal inspection (pupils equal) Neck: supple, no JVD Respiratory/Chest: no respiratory distress, no accessory muscle use, + crackles (bilateral coarse basal) Cardiovascular: regular rate, rhythm, normal peripheral pulses, + systolic murmur (RUSB harsh ejection systolic) Abdomen/GI: normal bowel sounds, non tender, soft Back: no CVA tenderness Extremities/Musculoskelatal: normal capillary refill, + calf tenderness (left) , + pedal edema (left sided pitting edema to mid ely) Neurologic/Psych: alert, oriented x 3 Skin: warm/dry, + pertinent finding (mutiple old bruises on right knee and upper arms) Lymphatic: no adenopathy Diagnostics Laboratory Results Results Past 24 Hours Test 01/11/17 00:15 Range/Units White Blood Count 5.73 4.8-10.8 K/uL Red Blood Count 3.18 4.2-5.4 M/uL Hemoglobin 10.4 12.0-16.0 g/dL Hematocrit 32.2 37-47 % Mean Corpuscular Volume 101.3 80-100 fL Mean Corpuscular Hemoglobin 32.7 25-34 pg Mean Corpuscular Hemoglobin Concent 32.3 32-36 g/dl Platelet Count 168 130-400 K/uL Mean Platelet Volume 9.9 7.4-10.4 fL Neutrophils (%) (Auto) 74.2 % Lymphocytes (%) (Auto) 13.3 % Monocytes (%) (Auto) 12.0 % Eosinophils (%) (Auto) 0.0 % Basophils (%) (Auto) 0.0 % Neutrophils # (Auto) 4.25 1.4-6.5 K/uL Lymphocytes # (Auto) 0.76 1.2-3.4 K/uL Monocytes # (Auto) 0.69 0.11-0.59 K/uL Eosinophils # (Auto) 0.00 0-0.5 K/uL Basophils # (Auto) 0.00 0-0.2 K/uL RDW Standard Deviation 58.2 36.4-46.3 fL RDW Coefficient of Variation 15.8 11.5-14.5 % Immature Granulocyte % (Auto) 0.5 % Immature Granulocyte # (Auto) 0.03 0.00-0.02 K/uL Prothrombin Time 11.6 9.0-12.0 SECONDS Prothromb Time International Ratio 1.1 0.9-1.1 Activated Partial Thromboplast Time 27.3 21.0-31.0 SECONDS Partial Thromboplastin Ratio 1.1 Sodium Level 140 136-145 mmol/L Potassium Level 3.4 3.5-5.1 mmol/L Chloride Level 99 98-107 mmol/L Carbon Dioxide Level 32 21-32 mmol/L Anion Gap 9.0 3-11 mmol/L Blood Urea Nitrogen 22 7-18 mg/dl Creatinine 2.90 0.60-1.20 mg/dl Estimated GFR () 16.4 Estimated GFR (Non- 14.2 BUN/Creatinine Ratio 7.7 10-20 Random Glucose 233 70-99 mg/dl Calcium Level 8.9 8.5-10.1 mg/dl Total Bilirubin 0.4 0.2-1 mg/dl Direct Bilirubin 0.2 0-0.2 mg/dl Aspartate Amino Transf (AST/SGOT) 15 15-37 U/L Alanine Aminotransferase (ALT/SGPT) 12 12-78 U/L Alkaline Phosphatase 72 45-117 U/L Total Creatine Kinase 30 26-192 U/L Creatine Kinase MB 0.9 0.5-3.6 ng/ml Creatine Kinase MB Ratio 3.0 0-3.0 Troponin I 0.141 0-0.045 ng/ml Total Protein 7.1 6.4-8.2 gm/dl Albumin 2.7 3.4-5.0 gm/dl Lipase 74 73-393 U/L Diagnostic Radiology CXR interpreted by me shows pulmonary venous congestion but improved on previous CXR on 09 January. Moderate cardiomegaly but appears stable EKG Sinus rhythm with 1st degree HB Left bundle branch block Rate 85 bpm Impression Assessment and Plan 86 year old female with multiple co-morbidities presents with chest pain with new DVT left leg. Chest pain - Suspected pulmonary embolism, unfortunately she has a poor prognosis regarding - will get VQ scan in the morning and consult nephrology regarding CT for PE due to ESRD - initial plan was to start heparin however on discussion with Dr Gutierrez decision is to delay this given recent life threatening GI bleed - If PE is confirmed may be a candidate for IVC filter if patient elects not to be on anticoagulation. - Echo to assess right heart strain given elevated troponin - trend troponin overnight. Coronary artery disease / LVEF approximately 50% / Moderate to severe aortic stenosis / Moderate mitral regurgitation - Continue aspirin, plavix, rosuvastatin. Not on ACEi or BB secondary to hypotension. Paroxysmal atrial fibrillation - continue amiodarone ESRD on dialysis - consult nephrology regarding dialysis and possibility of contrast for CT T2DM - continue home dose insulin. Will adjust to basal bolus as necessary. - aim BSG 140-180 - BSG ACHS Code - DNR Disposition - admit to med/surg Level of Care Telemetry Advanced Directives Existing Advance Directive: Yes Existing Living Will: Yes Existing Power of Bareback Rider: Yes (daughters) Resuscitation Status DO NOT RESUSCITATE (as discussed with the patient who has full capacity to make this decision) VTE Prophylaxis VTE Risk Assessment Done? Y/N: Yes Risk Level: High Given or contraindicated: Refusal of treatmnt by pt Additional Copies To Reuben Quezada M.D.; Vipul Hernandez M.D.; Cooper Hart M.D. Resident Tracking Resident Involvement: Resident Care Provided Care Provided: Adult [facility] Medicine Assessment and Plan Attending Addendum: I have physically seen and examined this patient, have directed their medical care, have supervised the medical residents activities, and agree with the H&P as noted above, with the following changes: NONE
[2017-01-11] MEDS ORDERED: GLUCOSE 40% GEL 15 GM TUBE PO PRN ×3 (04:15→12:45)
[2017-01-11] MEDS ORDERED: GLUCAGON FOR INJ 1 MG VIAL SQ PRN ×3 (04:15→12:45)
[2017-01-11] MEDS ORDERED: GLUCOSE 10 TABS/TUBE PO PRN ×3 (04:15→12:45)
[2017-01-11] MEDS ORDERED: DEXTROSE 50% 50 ML SYR IV PRN ×2 (04:15→05:15)
[2017-01-11 06:28] LABS: BASO % 0.3 %; BASO ABS # 0.02 K/uL (0-0.2); COMPLETE YES; EOS % 0.1 %; HEMATOCRIT 31.9 % (37-47); IG% 0.4 %; LYMPH % 21.7 %; LYMPH ABS # 1.53 K/uL (1.2-3.4); MEAN CELL VOLUME 101.6 fL (80-100); MEAN CORPUSCULAR HEMOGLOBIN 32.5 pg (25-34); MEAN PLATELET VOLUME 10.2 fL (7.4-10.4); MONO % 15.8 %; NEUT % 61.7 %; PLATELET COUNT 178 K/uL (130-400); RED BLOOD COUNT 3.14 M/uL (4.2-5.4); WHITE BLOOD COUNT 7.04 K/uL (4.8-10.8)
--- NOTE | 2017-01-11 06:41 | DIAGNOSTIC IMAGING REPORT ---
ULTRASOUND VENOUS DOPPLER LWR EXT BILA CLINICAL HISTORY: Bilateral leg pain and swelling COMPARISON STUDY: 01/17/2015 FINDINGS: On the right, no thrombus is visualized within the common femoral, superficial femoral, popliteal, or proximal trifurcation veins. On the left, there is nonocclusive thrombus within the left common femoral through popliteal vein. Calf veins were poorly visualized. IMPRESSION: 1. Extensive acute left lower extremity DVT involving the left common femoral through the popliteal vein. 2. No evidence of right lower extremity DVT Electronically signed by: Bob Heart M.D. 01/11/2017 6:39 AM Dictated Date/Time: 01/11/2017 6:38 AM
[2017-01-11 06:52] LABS: POTASSIUM 3.4 mmol/L (3.5-5.1)
--- NOTE | 2017-01-11 07:05 | DIAGNOSTIC IMAGING REPORT ---
CHEST ONE VIEW PORTABLE CLINICAL HISTORY: Atypical chest pain COMPARISON STUDY: 01/09/2017 FINDINGS: There are postsurgical changes of a midline sternotomy. The heart remains enlarged. There is a right internal jugular dual-lumen central venous catheter. There is elevation interstitium consistent with congestive failure and mild interstitial edema. There are small pleural effusions. There is no lobar consolidation.[ IMPRESSION: Continued radiographic evidence of mild congestive failure/fluid overload. Electronically signed by: Bob Heart M.D. 01/11/2017 7:04 AM Dictated Date/Time: 01/11/2017 7:03 AM
[2017-01-11 07:12] LABS: CALCIUM 9.4 mg/dl (8.5-10.1)
[2017-01-11] MEDS: SEVELAMER HYDROCH 800 MG TAB PO SCH ×3 (08:17→17:20)
[2017-01-11] MEDS: PANTOprazole SOD 40 MG TAB PO SCH (08:17)
[2017-01-11] MEDS: ALLOPURINOL 100 MG TAB PO SCH (08:17)
[2017-01-11] MEDS: DOCUSATE SODIUM/SENNA 50/8.6MG TAB PO SCH ×2 (08:18→20:22)
[2017-01-11] MEDS: MULTIVITAMIN TAB PO SCH (08:18)
[2017-01-11] MEDS: AMIODARONE 200 MG TAB PO SCH (08:18)
[2017-01-11] MEDS ORDERED: INSULIN HUMAN NPH SQ SCH (09:00)
[2017-01-11] MEDS ORDERED: NUTRITIONAL SUPPLEMENTS PO SCH (09:00)
--- NOTE | 2017-01-11 09:55 | ECHOCARDIOGRAM REPORT ---
*NOTICE TO RECEIVING LIBERTARIAN AGENCY This information is strictly Confidential and protected under [place] law. [place] law prohibits you from making any further disclosure of this information unless further disclosure is expressly permitted by the written consent of the person to whom it pertains or is authorized by law. A general authorization for the release of medical or other information is not sufficient for this purpose. Hospital accepts no responsibility if the information is made available to any other person, INCLUDING THE PATIENT. Interpretation Summary * Name: ANANTH SIMPSON Study Date: 01/11/2017 07:32 AM BP: 132/76 mmHg * Patient Location: C.2T\S\S241\S\1 HR: 74 * : 1930 (M/d/yyyy) Gender: Female Height: 64 in * Age: 86 yrs Ethnicity: CA Weight: 166 lb * Ordering Physician: Lance Fitzgerald * Referring Physician: Self, Referred * Performed By: Vanessa Medrano RCS * * Reason For Study: ELEVATED TROPONIN * BSA: 1.8 m2 * -- Conclusions -- * There is mild concentric left ventricular hypertrophy. * Left ventricular systolic function is low normal. * There are regional wall motion abnormalities as specified. * The left atrium is severely dilated. * The right atrium is mildly dilated. * Moderate valvular aortic stenosis. * There is moderate mitral regurgitation. * Compared to a study from 06/2016, the trans-aortic velocities are slightly higher. Otherwise minimal change Procedure Details * A complete two-dimensional transthoracic echocardiogram was performed (2D, M-mode, Doppler and color flow Doppler). Left Ventricle * The left ventricle is normal in size. * There is mild concentric left ventricular hypertrophy. * Left ventricular systolic function is low normal. * Ejection Fraction = 50-55%. * There are regional wall motion abnormalities as specified. * Basal anterior and lateral turcios are akinetic Right Ventricle * The right ventricle is normal in size and function. Atria * The left atrium is severely dilated. * The right atrium is mildly dilated. Mitral Valve * Calcified mitral apparatus. * Posterior leaflet is poorly mobile * There is moderate mitral regurgitation. * The mitral regurgitant jet is eccentrically directed. * The mitral regurgitant jet is posteriorly directed, which is consistent with anterior leaflet pathology. Tricuspid Valve * The tricuspid valve is not well visualized, but is grossly normal. * There is mild tricuspid regurgitation. Aortic Valve * The aortic valve is tricuspid. The leaflet thickness if normal. There is no aortic stenosis, and no significant insufficiency. * Moderate valvular aortic stenosis. * There is no significant aortic regurgitation. Great Vessels * The aortic root is normal size. Pericardium/Pleural * There is no pericardial effusion. MMode 2D Measurements and Calculations IVSd 1.5 cm IVSs 1.7 cm LVIDd 5.7 cm LVIDs 4.6 cm LVPWd 1.3 cm LVPWs 1.9 cm IVS/LVPW 1.2 FS 19.7 % EDV(Teich) 159.2 ml ESV(Teich) 95.6 ml EF(Teich) 39.9 % EDV(cubed) 183.8 ml ESV(cubed) 95.1 ml EF(cubed) 48.3 % % IVS thick 9.1 % % LVPW thick 47.4 % LV mass(C)d 356.1 grams LV mass(C)dI 197.0 grams/m\S\2 LV mass(C)s 364.9 grams LV mass(C)sI 201.9 grams/m\S\2 SV(Teich) 63.6 ml SI(Teich) 35.2 ml/m\S\2 SV(cubed) 88.8 ml SI(cubed) 49.1 ml/m\S\2 Ao root diam 3.8 cm Ao root area 11.6 cm\S\2 LA dimension 5.1 cm LA/Ao 1.3 LVOT diam 2.0 cm LVOT area 3.2 cm\S\2 Doppler Measurements and Calculations MV E max david 170.4 cm/sec MV A max david 87.9 cm/sec MV E/A 1.9 MV P1/2t max david 169.5 cm/sec MV P1/2t 70.5 msec MVA(P1/2t) 3.1 cm\S\2 MV dec slope 704.1 cm/sec\S\2 MV dec time 0.20 sec Ao V2 max 262.4 cm/sec Ao max PG 27.9 mmHg Ao max PG (full) 26.5 mmHg Ao V2 mean 223.0 cm/sec Ao mean PG 21.6 mmHg Ao V2 VTI 79.5 cm ROCIO(V,A) 0.71 cm\S\2 ROCIO(V,D) 0.71 cm\S\2 AI max david 265.8 cm/sec AI max PG 28.3 mmHg AI dec slope 176.1 cm/sec\S\2 AI P1/2t 442.2 msec LV V1 max PG 1.4 mmHg LV V1 max 58.5 cm/sec MR max david 454.6 cm/sec MR max PG 82.6 mmHg SV(Ao) 920.9 ml SI(Ao) 509.6 ml/m\S\2 PA V2 max 96.5 cm/sec PA max PG 3.7 mmHg PI max david 210.7 cm/sec PI max PG 17.8 mmHg PI dec slope 164.2 cm/sec\S\2 PI P1/2t 375.8 msec
--- NOTE | 2017-01-11 10:43 | Nephrology Consultation ---
Nephrology Consultation Date & Providers Date of Consultation: January 11, 2017. Primary Care Provider: Cooper Hart M.D. Referring Provider: Reason for Consultation To provide inpatient HD for this patient with ESRD admitted with pleuritic CP and RLE DVT History of Present Illness Ms. Rahman is an 86-year-old white female who is seen at the request of Dr. Fitzgerald to provide inpatient hemodialysis and assist with medical management. Medical records in the hospital EMR were reviewed today and are summarized as follows: Ms. Rahman has ESRD due to diabetic nephropathy and cardiorenal syndrome. Her baseline creatinine had been 2.4 w/ EGFR 21 cc/min. In 05/19 she presented with CHF. Diuretic therapy resulted in worsening kidney function and she required initiation of HD. The patient currently dialyzes MWF at [facility] (HD Rx: 4 hr 2K 2Ca F-160 EDW 74 kg Heparin 2000 bolus / 1000 hourly). Her PMH is also significant for long-standing AODM, HTN, PVD w/ bilateral carotid arterial disease, ASCVD s/p CABG x 4 1996 and OA. In 1996 patient suffered an episode of angina. Cardiac catheterization revealed RCA stenosis. Patient required angioplasty with stenting. Post procedure she developed a pseudoaneurysm with a large right groin hematoma which required emergency surgical repair. Due to her coronary artery disease Ms. Rahman has been on chronic ASA and Plavix therapy. She was hospitalized 09/19 with severe LGI bleeding requiring transfusion w/ 4 U PRBC. No site of bleeding identified on colonoscopy. Ms. Rahman was dialyzed yesterday without complication. Upon returning home she developed dyspnea and pleuritic chest pain. ED evaluation revealed LLE DVT. Past Medical/Surgical History Medical: # ESRD on HD MWF at [facility] # ASCVD s/p CABG x 4 1996 # Cardiac cath 2006 complicated by pseudoaneurysm of the right femoral artery requiring emergency surgical repair # AODM # HTN # PVD - carotid stenosis # h/o nephrolithiasis # Cholelithiasis # LGI bleed 09/19 Surgical: # R IJ THC insertion # AVF creation # R femoral artery pseudoaneurysm repair Allergies Coded Allergies: No Known Allergies (Unverified , 01/11/17) Inpatient Medications Current Inpatient Medications Medications (Trade) Dose Ordered Sig/Janeth Route Start Time Stop Time Status Last Admin Dose Admin Allopurinol (Zyloprim Tab) 50 mg QAM PO 01/11/17 09:00 02/10/17 08:59 01/11/17 08:17 50 MG Amiodarone HCl (Cordarone Tab) 200 mg QAM PO 01/11/17 09:00 02/10/17 08:59 01/11/17 08:18 200 MG Aspirin (Ecotrin Tab) 81 mg HS PO 01/11/17 21:00 02/10/17 20:59 Clopidogrel Bisulfate (plAVix TAB) 75 mg HS PO 01/11/17 21:00 02/10/17 20:59 Hydrocodone Bit/ Homatropine Methylb (Hycodan Syrup) 0.2 ml Q4 PRN PO 01/11/17 03:15 01/25/17 03:14 Insulin Human NPH (novoLIN-N NPH) 10 units QAM SQ 01/11/17 09:00 02/10/17 08:59 01/11/17 08:22 10 UNITS Multivitamins (Multivitamin Tab) 2 tab QAM PO 01/11/17 09:00 02/10/17 08:59 01/11/17 08:18 2 TAB Pantoprazole Sodium (Protonix Tab) 40 mg QAM PO 01/11/17 09:00 02/10/17 08:59 01/11/17 08:17 40 MG Rosuvastatin Calcium (Crestor Tab) 10 mg HS PO 01/11/17 21:00 02/10/17 20:59 Senna/Docusate Sodium (Senokot S Tab) 1 tab BID PO 01/11/17 09:00 02/10/17 08:59 01/11/17 08:18 1 TAB Sevelamer HCl (Renagel Tab) 800 mg TIDM PO 01/11/17 07:30 02/10/17 07:29 01/11/17 08:17 800 MG Glucose (Glucose 40% Gel) 15-30 GRAMS 15 GRAMS... UD PRN PO 01/11/17 04:15 02/10/17 04:14 Glucose (Glucose Chew Tab) 4-8 Tablets 4 Tabl... UD PRN PO 01/11/17 04:15 02/10/17 04:14 Dextrose (Dextrose 50% 50ML Syringe) 25-50ML OF 50% DW IV FOR... UD PRN IV 01/11/17 04:15 02/10/17 04:14 Glucagon (Glucagon Inj) 1 mg UD PRN SQ 01/11/17 04:15 02/10/17 04:14 Epoetin Joshua (Procrit Inj) 8,000 units ONE ONCE IV. 01/12/17 06:00 01/12/17 06:01 UNV Heparin Sodium (Porcine) (No Heparin In Dialysis) 1 ea ONE ONCE N/A 01/12/17 06:00 01/12/17 06:01 UNV Family History Asthma Cancer SISTER (Breast cancer) Chronic kidney disease MOTHER Diabetes mellitus FATHER Heart disease FATHER Hypertension FATHER MOTHER Kidney disease Kidney stones Stroke Mother - CKD Social History Smoking Status: Never Smoker Drug Use: none Marital Status: Housing Status: lives with family Occupation: retired . Retired. Never a smoker. Review of Systems Constitutional: No fever Respiratory: + shortness of breath (pleurisy) Cardiovascular: + chest pain Abdomen: No nausea, No pain, No vomiting A complete review of systems was performed. Pertinent positives are noted above. All other systems are negative. Physical Exam Date Time Temp Pulse Resp B/P Pulse Ox O2 Delivery O2 Flow Rate FiO2 01/11/17 07:20 36.6 77 18 121/69 97 3.5 01/11/17 03:45 36.5 80 22 132/76 97 Nasal Cannula 3.0 01/11/17 03:01 76 18 132/53 97 01/11/17 01:44 78 18 128/81 95 Nasal Cannula 2.0 01/11/17 00:17 81 01/11/17 00:14 95 Nasal Cannula 2.0 01/11/17 00:11 88 Room Air 01/10/17 23:57 36.5 70 19 114/44 95 Room Air General Appearance: no apparent distress Head: normocephalic, atraumatic Eyes: PERRL, EOMI Neck: no adenopathy Respiratory/Chest: lungs clear Cardiovascular: regular rate, rhythm Abdomen/GI: normal bowel sounds, non tender, soft Extremities/Musculoskelatal: + pertinent finding (LLE swelling) Neurologic/Psych: alert, oriented x 3 Laboratory Results Last 24 Hours Test 01/11/17 00:15 01/11/17 05:16 01/11/17 05:43 White Blood Count 5.73 K/uL 7.04 K/uL Red Blood Count 3.18 M/uL 3.14 M/uL Hemoglobin 10.4 g/dL 10.2 g/dL Hematocrit 32.2 % 31.9 % Mean Corpuscular Volume 101.3 fL 101.6 fL Mean Corpuscular Hemoglobin 32.7 pg 32.5 pg Mean Corpuscular Hemoglobin Concent 32.3 g/dl 32.0 g/dl Platelet Count 168 K/uL 178 K/uL Mean Platelet Volume 9.9 fL 10.2 fL Neutrophils (%) (Auto) 74.2 % 61.7 % Lymphocytes (%) (Auto) 13.3 % 21.7 % Monocytes (%) (Auto) 12.0 % 15.8 % Eosinophils (%) (Auto) 0.0 % 0.1 % Basophils (%) (Auto) 0.0 % 0.3 % Neutrophils # (Auto) 4.25 K/uL 4.34 K/uL Lymphocytes # (Auto) 0.76 K/uL 1.53 K/uL Monocytes # (Auto) 0.69 K/uL 1.11 K/uL Eosinophils # (Auto) 0.00 K/uL 0.01 K/uL Basophils # (Auto) 0.00 K/uL 0.02 K/uL RDW Standard Deviation 58.2 fL 59.7 fL RDW Coefficient of Variation 15.8 % 15.9 % Immature Granulocyte % (Auto) 0.5 % 0.4 % Immature Granulocyte # (Auto) 0.03 K/uL 0.03 K/uL Prothrombin Time 11.6 SECONDS Prothromb Time International Ratio 1.1 Activated Partial Thromboplast Time 27.3 SECONDS Partial Thromboplastin Ratio 1.1 Sodium Level 140 mmol/L 141 mmol/L Potassium Level 3.4 mmol/L 3.4 mmol/L Chloride Level 99 mmol/L 99 mmol/L Carbon Dioxide Level 32 mmol/L 33 mmol/L Anion Gap 9.0 mmol/L 9.0 mmol/L Blood Urea Nitrogen 22 mg/dl 27 mg/dl Creatinine 2.90 mg/dl 3.00 mg/dl Estimated GFR () 16.4 15.8 Estimated GFR (Non- 14.2 13.6 BUN/Creatinine Ratio 7.7 9.0 Random Glucose 233 mg/dl 99 mg/dl Calcium Level 8.9 mg/dl 9.4 mg/dl Total Bilirubin 0.4 mg/dl Direct Bilirubin 0.2 mg/dl Aspartate Amino Transf (AST/SGOT) 15 U/L Alanine Aminotransferase (ALT/SGPT) 12 U/L Alkaline Phosphatase 72 U/L Total Creatine Kinase 30 U/L Creatine Kinase MB 0.9 ng/ml Creatine Kinase MB Ratio 3.0 Troponin I 0.141 ng/ml 0.650 ng/ml Total Protein 7.1 gm/dl Albumin 2.7 gm/dl Lipase 74 U/L Bedside Glucose 101 mg/dl Est Creatinine Clear Calc Drug Dose 14.3 ml/min Impression (1) DVT (deep venous thrombosis) (2) Pulmonary embolism (3) ESRD (end stage renal disease) on dialysis (4) Hypertension (5) Diabetes (6) Anemia Patient admitted for evaluation of dyspnea, LLE DVT and probable PE. She has ASCVD and has been on ASA & Plavix chronically as an outpatient. She has required transfusion w/ 4 U PRBC 09/19 due to LGI bleeding. PMH - ESRD on HD MWF at [facility] (HD Rx: 4 hr 2K 2Ca F-160 EDW 74 kg Heparin 2000 bolus / 1000 hourly), ASCVD s/p CABG x 4 1996, cardiac cath 2006 complicated by pseudoaneurysm of the right femoral artery requiring emergency surgical repair, AODM, HTN, PVD w/ carotid stenosis, h/o nephrolithiasis, cholelithiasis, OA, LGI bleeding 09/19 requiring transfusion w/ 4 U PRBC Recommendations END STAGE RENAL DISEASE: -- Volume status & electrolyte balance are acceptable at this time. No acute indication for HD today -- Will schedule next HD for tomorrow am. Will dialyze heparin free. HD orders entered into EMR and HD RN notified -- AVF is functional. Will ask vascular surgery to remove IJ THC -- Protect AVF DVT: -- OK to pursue CT angiogram if needed to assess for PE. Patient has ESRD. -- h/o LGI bleed. Question need for [place] filter. -- Recommend avoiding Xa inhibitors due to ESRD and h/o LGI bleeding
[2017-01-11] MEDS ORDERED: NITROGLYCERIN 0.4 MG SL PER TAB CHARGE ONE (11:49)
[2017-01-11] MEDS ORDERED: NURSING VERBAL MED ORDER ONE ×2 (12:00→17:15)
[2017-01-11] MEDS ORDERED: OPTIRAY 320 IV PRN (13:00)
[2017-01-11] MEDS ORDERED: DC ALL PREVIOUSLY ORDERED DIABETES MEDS ONE (13:00)
[2017-01-11 13:10] LABS: HEMATOCRIT 32.6 % (37-47)
[2017-01-11] MEDS: DEXTROSE 50% 50 ML SYR IV PRN ×2 (13:13→15:05)
[2017-01-11 13:37] LABS: CKMB/CK RATIO 6.3 (0-3.0)
--- NOTE | 2017-01-11 14:34 | DIAGNOSTIC IMAGING REPORT ---
CHEST CTA for PULMONARY ARTERIES CT DOSE: 339.49 mGy.cm HISTORY: Cough dyspnea TECHNIQUE: Multiaxial CT images of the chest were performed following the intravenous administration of contrast to evaluate the pulmonary arteries. Maximal intensity projection images were also obtained. COMPARISON STUDY: 11/18/2013 FINDINGS: Moderate atelectatic change thoracic aorta. No evidence for aneurysm or dissection. Pulmonary arterial vasculature enhances appropriately. There are no significant filling defects. Moderate cardiomegaly. Small bilateral pleural effusions. Findings of developing congestive failure. IMPRESSION: 1. Negative for pulmonary embolus.. 2. Congestive heart failure with small bilateral pleural effusions. Electronically signed by: Raulito Acosta M.D. 01/11/2017 2:33 PM Dictated Date/Time: 01/11/2017 2:31 PM
[2017-01-11] MEDS: NITROGLYCERIN OINT 2% 1GM PACKET EXT SCH ×2 (15:18→20:43)
[2017-01-11] MEDS ORDERED: NURSING VERBAL MED ORDER SCH (15:30)
[2017-01-11] MEDS: DEXTROSE 5% 1000ML 1,000 ML IV SCH (16:35)
[2017-01-11] MEDS: INSULIN ASPART 100 UNITS/ML 3 ML PEN SC SCH ×2 (17:16→20:23)
[2017-01-11] MEDS: BOOST VANILLA PO SCH ×4 (17:28→20:20)
[2017-01-11 18:59] LABS: HEMATOCRIT 34.4 % (37-47)
--- NOTE | 2017-01-11 19:44 | Progress Note ---
Progress Note Date of Service January 11, 2017. Progress Note Patient seen and examined on 2 different occasions today. She was admitted after midnight. Her history was reviewed in detail in the computer as well as with her and her family. She had a CT angiogram of the chest today that was negative for PE. She is very hesitant to be started on a heparin drip for her acute DVT given her recent history of severe GI bleeding 5 months ago. Discussion was had of placing an IVC filter as well. I do recommend that she start on heparin drip for overnight which could be held in the morning in case of IVC filter placement. Nephrology is also recommending that she have her tunneled IJ catheter removed and she now has a functional left upper extremity AV fistula. She did have an episode of typical angina today that was relieved with nitroglycerin. Her troponins are being trended and are mildly elevated, ECGs are fairly unchanged from previous with a left bundle branch block. Nitropaste was applied and cardiology consult was obtained. Consideration should be made to place her on a long-acting nitrate upon discharge, however no cardiac catheterization is indicated at this time. Will consult vascular surgery for evaluation for placement of IVC filter given her hesitancy to be on triple therapy with aspirin and Plavix and Coumadin due to severe GI bleed. Appreciate nephrology consultation as well for management of dialysis while inpatient.
[2017-01-11] MEDS: ROSUVASTATIN CALCIUM 10 MG TAB PO SCH (20:23)
[2017-01-11] MEDS: CLOPIDOGREL BISULFATE 75 MG TAB PO SCH (20:23)
[2017-01-11] MEDS ORDERED: ASPIRIN 81 MG ECTAB PO SCH (21:00)
--- NOTE | 2017-01-11 22:56 | CARDIOLOGY CONSULTATION ---
DATE OF CONSULTATION: 01/11/2017 CONSULTATION REQUESTED BY: Dr. Chandra. REASON FOR CONSULTATION: Elevated troponin. PRIMARY EXTRACTIVE METALLURGIST: Dr. Hernandez. HISTORY OF PRESENT ILLNESS: Ms. Huang is an 86-year-old woman with a history of coronary artery disease, status post 4-vessel CABG in 1996, prior PCI with stenting to her RCA in 2006 with known obstructive vein graft to diagonal and ramus branches at that time, chronic diastolic heart failure, valvular heart disease with moderate to severe and moderate MR, hyperlipidemia, type 2 diabetes, end-stage renal disease, on hemodialysis, paroxysmal atrial fibrillation, on amiodarone, and prior GI bleeding, who returned to the Emergency Department yesterday in the setting of acute onset of chest pain. The patient states that she had been having intermittent pain for several days, however, the night of admission had 3 hours of constant left-sided chest pain. Reminiscent of prior pain that she has had on prior admission back in September. At that time, she presented with an acute GI bleed with a drop in her hemoglobin down to 8 and mild elevation in her troponin which was managed conservatively. Upon arrival this admission, the patient was started on nitro paste with resolution of her chest pain. She has had brief chest pain for seconds since that time, but no other significant events on telemetry. Of note, the patient underwent a lower extremity ultrasound which showed left DVT from her common femoral vein down to her popliteal vein. Decision regarding anticoagulation is being discussed. PAST MEDICAL HISTORY: 1. Coronary artery disease, status post 4-vessel CABG, PCI with stent to RCA. 2. Chronic diastolic heart failure. 3. Moderate to severe aortic stenosis. 4. Moderate mitral regurgitation. 5. Hypertension. 6. Hyperlipidemia. 7. Type 2 diabetes. 8. End-stage renal disease, on hemodialysis. 9. Paroxysmal atrial fibrillation. FAMILY HISTORY: She has mother with diabetes, father with heart disease and hypertension. SOCIAL HISTORY: She is a lifelong nonsmoker. She has limited functional capacity. She is able to walk short distances with a walker and longer in a wheelchair. REVIEW OF SYSTEMS: Ten-point review of systems was completed and otherwise negative unless stated in the HPI. HOME MEDICATIONS: 1. Allopurinol 100 mg. 2. Amiodarone 200 mg. 3. Aspirin 81. 4. Clopidogrel 75. 5. Hydrocodone. 6. Insulin NPH 10 units in the a.m. 7. Multivitamin. 8. Protonix. 9. Prednisone. 10. Rosuvastatin 10 mg. 11. Sennosides/docusate. 12. Renvela. ALLERGIES: No known drug allergies. PHYSICAL EXAMINATION: VITAL SIGNS: Temperature 36.4, blood pressure 134/70, heart rate 65, she is satting 96% on room air. GENERAL: The patient appears comfortable, in no acute distress. HEENT: Sclerae are anicteric. Oropharynx is clear. Her mucous membranes are moist. NECK: Supple with no lymphadenopathy. LUNGS: Clear to auscultation bilaterally. CARDIAC: She has a 2/6 systolic ejection murmur heard best at the right upper sternal border. She also has a 2/6 holosystolic murmur heard best at the apex. ABDOMEN: Soft, nontender, nondistended, with positive bowel sounds. EXTREMITIES: Warm. She has mild left lower extremity swelling. She has intact distal pulses. SKIN: Shows diffuse ecchymoses. NEUROLOGIC: Grossly nonfocal. PSYCHIATRIC: She is alert and oriented x3 and appropriate. LABORATORY DATA: Sodium 141, potassium 3.4, BUN 27, creatinine of 3. Troponin initially elevated at 0.141, trended up to 0.9, and has subsequently trended down to 0.65. INR 1.1. Hemoglobin of 10.8, white blood cell count of 7, and platelets of 178. IMAGING: Venous duplex studies showed extensive acute left lower extremity DVT involving left common femoral vein through the popliteal vein. No evidence of right lower extremity DVT. Chest x-ray showed mild congestive failure/fluid overload. CTA of the chest was negative for pulmonary embolus and showed suggestion of congestive heart failure with small bilateral pleural effusions. EKG showed sinus rhythm with first-degree AV block, left bundle-branch block, unchanged from prior. Echocardiogram showed mild concentric LVH with normal LV function, normal regional wall motion, and moderate valvular aortic stenosis with moderate mitral regurgitation. Peak aortic valve velocity was 2.6 with a mean gradient of 22 and a calculated aortic valve area of 0.7. IMPRESSION AND PLAN: 1. Chest pain. 2. Mildly elevated troponin. 3. Left lower extremity deep vein thrombosis. 4. History of prior gastrointestinal bleed. 5. Coronary artery disease, status post prior coronary artery bypass graft and prior percutaneous coronary intervention. 6. Chronic diastolic heart failure. 7. End-stage renal disease, on dialysis. 8. Atrial fibrillation, on amiodarone, off Coumadin. 9. Diabetes, on insulin therapy, complicated by hypoglycemia during this admission. Patient here with acute onset of chest pain in the setting of mildly elevated troponin which peaked at 0.9. This was not associated with any EKG changes or changes wall motion abnormalities on echocardiogram. With the patient's multiple comorbidities, would favor continued conservative management. The patient also wishes to forego any invasive procedures if possible. As such, would not recommend cardiac catheterization at this time unless the patient were to become significantly hemodynamically or electrically unstable. The patient was found to have left lower extremity DVT, but no evidence of PE on CTA. Discussed with Dr. Chandra and Dr. Quezada at this point with the patient's prior life threatening GI bleed without clear source, would favor foregoing anticoagulation and placement of an IVC filter. Would continue on aspirin and Plavix in the setting of coronary artery disease. Otherwise, we will continue on nitro paste for now. The patient has had issues with orthostatic hypotension while on beta blockers and other antianginal agents. May benefit from Ranexa long-term. Continue home statin and continue home amiodarone in the setting of her prior atrial fibrillation. Dr. Hernandez will resume care of the patient tomorrow a.m. Please contact with any questions. Thank you for allowing us to participate in the care of this patient. BOGDAN
[2017-01-12] VITALS (33 sets, daily range): BP systolic 92–144; BP diastolic 41–84; PULSE 52–78; TEMP 36.4–37.1; O2SAT 94–99; Ht 167.6 cm; Wt 76.7 kg
[2017-01-12] MEDS: NITROGLYCERIN OINT 2% 1GM PACKET EXT SCH ×4 (01:43→20:00)
[2017-01-12 02:52] LABS: CKMB/CK RATIO 6.5 (0-3.0)
[2017-01-12] MEDS ORDERED: EPOETIN ALFA 10,000 UNITS/ML VIAL IV. ONE ×2 (06:00→10:15)
[2017-01-12] MEDS ORDERED: EPOETIN ALFA INJ 8,000 UNITS in SYRINGE 0 ML IV. SCH (06:00)
[2017-01-12 06:22] LABS: BASO % 0.3 %; BASO ABS # 0.03 K/uL (0-0.2); COMPLETE YES; EOS % 3.8 %; HEMATOCRIT 31.9 % (37-47); IG% 0.6 %; LYMPH ABS # 1.35 K/uL (1.2-3.4); MEAN CELL VOLUME 101.9 fL (80-100); MEAN CORPUSCULAR HEMOGLOBIN 33.2 pg (25-34); MEAN CORPUSCULAR HGB CONC 32.6 g/dl (32-36); MEAN PLATELET VOLUME 9.9 fL (7.4-10.4); MONO % 11.1 %; NEUT % 69.2 %; PLATELET COUNT 175 K/uL (130-400); RED BLOOD COUNT 3.13 M/uL (4.2-5.4)
[2017-01-12] MEDS: INSULIN ASPART 100 UNITS/ML 3 ML PEN SC SCH ×4 (07:00→21:00)
[2017-01-12 07:04] LABS: ESTIMATED AVERAGE GLUCOSE 108 mg/dl; HA1C FLAG Normal (Normal)
[2017-01-12 07:11] LABS: BUN/CREATININE RATIO 9.7 (10-20); CALCIUM 9.6 mg/dl (8.5-10.1); CREATININE 3.8 mg/dl (0.60-1.20); MAGNESIUM 2.7 mg/dl (1.8-2.4)
[2017-01-12] MEDS: SEVELAMER HYDROCH 800 MG TAB PO SCH ×3 (07:30→16:45)
[2017-01-12] MEDS: ALLOPURINOL 100 MG TAB PO SCH (07:46)
[2017-01-12] MEDS: DOCUSATE SODIUM/SENNA 50/8.6MG TAB PO SCH ×2 (07:46→20:09)
[2017-01-12] MEDS: MULTIVITAMIN TAB PO SCH (07:46)
[2017-01-12] MEDS: AMIODARONE 200 MG TAB PO SCH (07:46)
[2017-01-12] MEDS: PANTOprazole SOD 40 MG TAB PO SCH (07:47)
[2017-01-12] MEDS: BOOST VANILLA PO SCH ×2 (09:00)
--- NOTE | 2017-01-12 09:13 | Medical Consult ---
Consultation Note Date of Service January 12, 2017. (Daisy Herr, DEBBY) Consultation Note Chief Complaint Mature LUE AVF, need permcath removal History of Present Illness The patient is a 86 year old female with multiple medical problems, who had a permcath and fistula placed in May of 2016, seen today for removal of permcath. Pt LUE AVF is functioning well at HD, no longer needing permcath for access. Pt admits LLE edema and mild pain for past few weeks, currently has LLE femoral DVT. Pt with remote hx of DVT in past, had stopped anticoagulation d/t GI bleeding. No bleeding recently. Did express some concern regarding restarting anticoagulation, but does not wish to have IVC filter inserted at this time. Pt denies BRENNER, fever, chills, chest pain, SOB, adb pain, N/V, rest pain, claudication, other complaints. Allergies Coded Allergies: No Known Allergies (Unverified , 05/16/16) Home Medications Scheduled Allopurinol (Zyloprim), 50 MG PO QAM Amiodarone Hcl (Cordarone), 200 MG PO DAILY Aspirin (Aspirin Ec), 81 MG PO HS Bumetanide (Bumex), 1 MG PO BID Calcium (Caltrate), 600 MG PO QAM Clopidogrel (Plavix), 75 MG PO HS Ferrous Fumarate (Iron), 18 MG PO BID Insulin Nph (Novolin-N), 15 UNITS SC QAM Ipratropium-Albuterol (Duoneb), 1 TREATMENT INH AMHS Isosorbide Mononitrate Ext Rel (Imdur Ext Rel), 60 MG PO QAM Metoprolol Tartrate (Lopressor) (Lopressor), 25 MG PO BID Potassium Chloride (Klor-Con M20), 20 MEQ PO BID Rosuvastatin Calcium (Crestor), 10 MG PO HS [Colon Health], 1 CAP PO DAILY Scheduled PRN Albuterol Sulfate (Proair Hfa), 2 PUFFS INH QID PRN for SOB/Wheezing Nitroglycerin (Nitrostat), 0.4 MG UT UD PRN for Chest Pain Problem List Medical Problems: (1) Ac Myocrd Infrct,Oth Inferior Wall,Subseq Epis Car (2) Acute kidney injury (3) Anemia (4) Aortocoronary Bypass (5) Bronchopneumonia (6) CHF exacerbation (7) Chronic Kidney Disease, Stage Iii (Moderate) (8) Chronic kidney disease, stage IV (severe) (9) Chronic kidney disease, stage V (10) Coronary artery disease (11) Coronary Atherosclerosis Of [place] Coronary Vessel (12) Diab Qiana Wo Compl, Type Ii Or Unspec Type, Not Uncntrld (13) Diabetes (14) Hypertension Nos (15) Knee Joint Replacement Status (16) New onset atrial fibrillation (17) Old Myocardial Infarct (18) Percutaneous Translum Coron Angioplasty Status (19) Pneumonia, Organism Nos (20) Pure Hypercholesterolem (21) Urin Tract Infection Nos Surgical / Medical History Hx Cardiac Surgery: Yes (CABG 1998 ; STENT ) Hx Abdominal Surgery: Yes (HYSTERECTOMY 1994) Hx Cancer Surgery: No Hx Thoracic Surgery: Yes (BACK SURGERY 2010) Hx Orthopedic: Yes (HIP REPLACEMENT; WRIST, L TKA) Hx Urinary Tract Surgery: Yes (KIDNEY STONES 2005) Past Medical/Surgical History: CHF, Heart Disease, Hypertension, Kidney Disease Family History Cancer SISTER (Breast cancer) Chronic kidney disease MOTHER Diabetes mellitus FATHER Heart disease FATHER Hypertension FATHER MOTHER Kidney disease Kidney stones Social History Smoking Status: Never Smoker Hx Tobacco Use In Past Year?: No Hx Alcohol Use - Type & Amnt: No Hx Substance Use -Type & Amnt: No Review of Systems Constitutional: No chills, No fever Skin: No change in color Eyes: No visual changes ENMT: No sore throat Respiratory: No SOB No hemoptysis Cardiovascular: No chest pain, No chest tightness, No palpitations, No syncope presently Gastrointestinal: No diarrhea, No nausea, No vomiting Genitourinary - Female: No dysuria, No hematuria Neurologic: + weakness, No dizziness, No headache Physical Exam Constitutional: General Apperance: well-nourished, well-developed Level of Distress: NAD, Psychiatric: Mental Status: normal mood, normal affect, awake and alert Orientation: oriented to time, to place, to person Memory: recent memory normal, remote memory normal Head: normocephalic, atraumatic Eyes: EOM: EOMI ENMT: normal ENT inspection, hearing grossly normal Neck: supple, trachea midline Lungs: Respiratory effort: normal Auscultation: clear Cardiovascular: Apical Impulse: not displaced Heart Auscultation: RRR, no rubs, no gallops Peripheral Pulses: Pulses: full and equal, in all extremities except if noted Bruits: none appreciated Carotid Pulse: normal on the left, normal on the right Brachial Pulses: normal on the left, normal on the right. LUE brachiocephalic AVF with excellent thrill/bruit. Radial Pulse: normal on the left, normal on the right Femoral Pulse: normal on the left, normal on the right Posterior Tibialis Pulse: decreased on the left, decreased on the right Dorsalis Pedis Pulse: decreased on the left, decreased on the right Abdomen: Bowel Sounds: normal Inspection & Palpation: soft, non-distended, no tenderness, guarding & rebound Musculoskeletal: normal strength (5/5 throughout), normal tone Extremities: Upper Right: no cyanosis, no varicosities, no edema Upper Left: no cyanosis, no varicosities, no palpable cord, no edema Lower Right: no cyanosis, no varicosities, no palpable cord trace edema Lower Left: no cyanosis, no varicosities, +2 edema Neurologic: Cranial Nerves: grossly intact Sensation: grossly intact Assessment and Plan ASSESSMENT and PLAN: Imp: ESRD, matured LUE AVF LLE DVT Plan: Pt for permcath removal this morning. Procedure, risks, benefits, and alternatives discussed with pt, she expresses understanding and agreement. Pt agreeable to starting anticoagulation for DVT. (Daisy Herr, PA-C) Patient was seen, examined, and chart reviewed. Agree with exam and treatment plan of the Vascular PA. (Adebayo Rocha M.D.)
--- NOTE | 2017-01-12 09:37 | Procedure Note ---
Pre-Mod Sedation Assessment General Date of Moderate Sedation: January 12, 2017. Vital Signs: Vital Signs Past 12 Hours Date Time Temp Pulse Resp B/P Pulse Ox O2 Delivery O2 Flow Rate FiO2 01/12/17 07:39 36.4 67 18 138/70 97 Nasal Cannula 2.0 01/12/17 04:00 Nasal Cannula 3.5 01/12/17 03:24 36.6 68 18 143/61 97 Nasal Cannula 2.0 01/12/17 00:00 Nasal Cannula 3.5 01/11/17 23:33 36.8 75 26 126/69 96 Nasal Cannula 3.0 Pre-Sedation Airway Assessment Oral Cavity: Dentures Smoking Status: Never Smoker Mallampati Classification: Class I ASA Classification: Class II Notes The planned sedation has been discussed with the patient and consent obtained. I have identified the patient, determined the appropriateness of sedation and have assessed the patient immediately prior to the procedure. All medicine(s) and interventions are by my order.
--- NOTE | 2017-01-12 09:37 | Progress Note ---
Progress Note Date of Service January 12, 2017. Progress Note Patient for removal of her permcath and she does not want the insertion of IVC filter at this time. I have discussed the risks options and benefits of the procedure with the patient. The patient understands the risks options and benefits and agrees to the procedure. I have examined the patient, reviewed the History & Physical and in the interval since the performance of the History & Physical I have noted the following changes of clinical significance: No changes noted
[2017-01-12] MEDS ORDERED: LIDOCAINE HCL 1% 20 ML VIAL ONE (10:03)
--- NOTE | 2017-01-12 10:05 | CARDIOLOGY PROGRESS NOTE ---
DATE: 01/12/2017 SUBJECTIVE: Mrs. Rahman is resting comfortably in bed without complaints of chest pain or dyspnea. Details of her presentation were reviewed in detail. She has opted to start Coumadin for her deep venous thrombosis. OBJECTIVE: VITAL SIGNS: Blood pressure 138/70 with a regular pulse of 67. Respiratory rate is 18. The patient is afebrile at 36.4 degrees Celsius. Saturation is 97% on 2 liters nasal cannula. NECK: Supple with full carotid upstrokes. A transmitted murmur is noted bilaterally. Jugular venous pressure is approximately 10 cm of water at 90 degrees. CARDIOVASCULAR: Reveals a regular rhythm with a 2/6 basal systolic ejection murmur. No diastolic murmurs. No S3. LUNGS: Clear without rales, rhonchi or wheezes. ABDOMEN: Obese without bruits. EXTREMITIES: Reveal intact distal pulses. 1+ edema is seen in the left lower extremity. DATA: CBC notes hemoglobin of 10.4, hematocrit 31.9, white count 9.0, platelet count 175,000. Electrolytes note sodium of 135, potassium 4.0, chloride 96, bicarbonate 32, BUN 37, creatinine 3.8, glucose 110. Troponin I level peaked at 0.9. Echocardiogram notes low normal ejection fraction of 50-55% with akinesis involving the basal section of the anterior wall and anterolateral wall. There is moderate aortic stenosis and moderate aortic insufficiency. EKG notes sinus rhythm with an incomplete left bundle-branch block. Lower extremity ultrasound notes an extensive DVT on the left side. Right side is clear. CT scan of the chest fails to show pulmonary embolism but does note congestive changes. Chest x-ray notes cardiomegaly with evidence of congestive failure. contracts manager is benign. IMPRESSION AND PLAN: 1. Chest pain syndrome -- etiology not certain but likely represents angina pectoris. As noted previously, the patient is not interested in invasive procedures such as cardiac catheterization. We will continue with conservative medical management. She will be started on heparin for her deep venous thrombosis along with her chest pain syndrome. 2. Coronary artery disease -- history of coronary artery bypass graft x4 in 1996. Cardiac catheterization in 2006 revealed an occluded saphenous vein graft to diagonal, saphenous vein graft to the ramus. Other grafts were patent. She underwent deployment of a right coronary stent at that time. 3. Moderate aortic stenosis. 4. Moderate mitral regurgitation. 5. Left lower extremity deep vein thrombosis -- as above, we will start heparin and transition to Coumadin. Does have a history of significant gastrointestinal bleed back in September. 6. Paroxysmal atrial fibrillation -- continue amiodarone. 7. Hypertension. 8. Hypercholesterolemia.
[2017-01-12] MEDS ORDERED: HEPARIN IV LOW DOSE NO BOLUS SCH (10:15)
[2017-01-12] MEDS ORDERED: LIDOCAINE HCL 1% 20 ML VIAL INJ ONE (10:21)
--- NOTE | 2017-01-12 10:25 | [facility] Post Operative Brief Note ---
Immediate Operative Summary Operative Date January 12, 2017. Pre-Operative Diagnosis Functioning fistula Post-Operative Diagnosis Same Procedure(s) Performed Removal of right internal jugular vein permcath Surgeon Josefina Machine Cell Tuber Surgeon(s) none Estimated Blood Loss 0 Findings catheter and cuff removed Specimens catheter Anesthesia Local Complication(s) None Disposition
[2017-01-12] MEDS ORDERED: PARICALCITOL 5 MCG/ML VIAL (ZEMPLAR) IV. ONE (10:30)
--- NOTE | 2017-01-12 10:57 | DIAGNOSTIC IMAGING REPORT ---
DATE OF PROCEDURE: 01/12/2017 PREOPERATIVE DIAGNOSIS: Functioning AV fistula. POSTOPERATIVE DIAGNOSIS: Same. PROCEDURE: Removal of right internal jugular vein PermCath. SURGEON: Dr. Rocha. ANESTHETIC: Local. PROCEDURE INDICATIONS: The patient is an 86-year-old female with a right internal jugular vein PermCath in place. Removal was recommended being that she has a functional fistula. She understood the risks, options and benefits and agreed to go ahead with this procedure. The patient was taken to the angio suite and placed in supine position. After right side of the neck and chest wall and catheter were prepped and draped in a sterile manner, local anesthetic was administered. Using blunt dissection, the cuff was freed up from the surrounding tissue. The catheter slid out easily after this was done. Pressure was applied. Adequate hemostasis was obtained. Once adequate hemostasis was noted a sterile dressing was applied to the wound. The patient left the angio suite in good condition and tolerated the procedure well.
--- NOTE | 2017-01-12 11:31 | Nephrology Progress Note ---
Nephrology Progress Note Date of Service January 12, 2017. Chief Complaint To provide inpatient HD for this patient with ESRD admitted with pleuritic CP and RLE DVT Subjective Ms. Rahman was seen & examined in the PCU this morning. She has just returned from having her IJ THC removed and is visiting with her daughters. She currently denies fever, angina or dyspnea. She has chosen to proceed w/ Heparin and Warfarin anticoagulation and pursue Zora filter placement only if she has bleeding complications. Review of Systems Constitutional: No fever Cardiovascular: No chest pain Respiratory: No dyspnea at rest Abdomen: No nausea, No pain, No vomiting Extremities: No leg edema A complete review of systems was performed. Pertinent positives are noted above. All other systems are negative. Vital Signs Last 8 Hrs Date Time Temp Pulse Resp B/P Pulse Ox O2 Delivery O2 Flow Rate FiO2 01/12/17 09:52 36.4 67 18 138/70 97 Nasal Cannula 2.0 01/12/17 09:00 36.6 70 18 138/70 98 Nasal Cannula 2.0 01/12/17 08:00 Nasal Cannula 2.0 01/12/17 07:39 36.4 67 18 138/70 97 Nasal Cannula 2.0 01/12/17 04:00 Nasal Cannula 3.5 01/12/17 03:24 36.6 68 18 143/61 97 Nasal Cannula 2.0 I & O 24-Hour Column 01/12/17 08:00 Intake Total 1214 ml Output Total 700 ml Balance 514 ml Last Recorded Weight Weight (Kilograms): 77.100 Physical Exam General Appearance: no apparent distress Head: normocephalic, atraumatic Eyes: PERRL Neck: + pertinent finding (R IJ catheter has been removed. Site has clean dry dressing in place.) Respiratory/Chest: lungs clear Cardiovascular: regular rate, rhythm Abdomen/GI: normal bowel sounds, non tender, soft Extremities/Musculoskelatal: + swelling (left leg remains moderately swollen) Neurologic/Psych: alert, oriented x 3 Family History Asthma Cancer SISTER (Breast cancer) Chronic kidney disease MOTHER Diabetes mellitus FATHER Heart disease FATHER Hypertension FATHER MOTHER Kidney disease Kidney stones Stroke Mother - CKD Social History Smoking Status: Never smoker Drug Use: none Marital Status: Housing Status: lives with family Occupation: retired . Retired. Never a smoker. Laboratory Results Past 24 Hours 01/11/17 12:55 01/11/17 18:48 01/12/17 05:59 Red Blood Count 3.13, Mean Corpuscular Volume 101.9, Mean Corpuscular Hemoglobin 33.2, Mean Corpuscular Hemoglobin Concent 32.6, Mean Platelet Volume 9.9, Neutrophils (%) (Auto) 69.2, Lymphocytes (%) (Auto) 15.0, Monocytes (%) ( Auto) 11.1, Eosinophils (%) (Auto) 3.8, Basophils (%) (Auto) 0.3, Neutrophils # (Auto) 6.23, Lymphocytes # (Auto) 1.35, Monocytes # (Auto) 1.00, Eosinophils # ( Auto) 0.34, Basophils # (Auto) 0.03 01/12/17 05:59 Test 01/11/17 11:29 01/11/17 11:46 01/11/17 12:09 01/11/17 12:55 Bedside Glucose 60 mg/dl (70-90) 48 mg/dl (70-90) 99 mg/dl (70-90) Total Creatine Kinase 32 U/L (26-192) Creatine Kinase MB 2.0 ng/ml (0.5-3.6) Creatine Kinase MB Ratio 6.3 (0-3.0) Troponin I 0.906 ng/ml (0-0.045) Test 01/11/17 13:10 01/11/17 13:40 01/11/17 14:46 01/11/17 15:00 Bedside Glucose 43 mg/dl (70-90) 88 mg/dl (70-90) 40 mg/dl (70-90) 45 mg/dl (70-90) Test 01/11/17 15:21 01/11/17 16:42 01/11/17 17:16 01/11/17 18:30 Bedside Glucose 112 mg/dl (70-90) 68 mg/dl (70-90) 71 mg/dl (70-90) 133 mg/dl (70-90) Test 01/11/17 18:48 01/11/17 20:20 01/11/17 23:38 01/12/17 02:15 Total Creatine Kinase 36 U/L (26-192) 26 U/L (26-192) Creatine Kinase MB 1.8 ng/ml (0.5-3.6) 1.7 ng/ml (0.5-3.6) Creatine Kinase MB Ratio 5.0 (0-3.0) 6.5 (0-3.0) Troponin I 0.761 ng/ml (0-0.045) 0.743 ng/ml (0-0.045) Bedside Glucose 167 mg/dl (70-90) 213 mg/dl (70-90) Test 01/12/17 05:59 01/12/17 06:22 01/12/17 09:55 01/12/17 09:58 White Blood Count 9.00 K/uL (4.8-10.8) Red Blood Count 3.13 M/uL (4.2-5.4) Hemoglobin 10.4 g/dL (12.0-16.0) Hematocrit 31.9 % (37-47) Mean Corpuscular Volume 101.9 fL (80-100) Mean Corpuscular Hemoglobin 33.2 pg (25-34) Mean Corpuscular Hemoglobin Concent 32.6 g/dl (32-36) Platelet Count 175 K/uL (130-400) Mean Platelet Volume 9.9 fL (7.4-10.4) Neutrophils (%) (Auto) 69.2 % Lymphocytes (%) (Auto) 15.0 % Monocytes (%) (Auto) 11.1 % Eosinophils (%) (Auto) 3.8 % Basophils (%) (Auto) 0.3 % Neutrophils # (Auto) 6.23 K/uL (1.4-6.5) Lymphocytes # (Auto) 1.35 K/uL (1.2-3.4) Monocytes # (Auto) 1.00 K/uL (0.11-0.59) Eosinophils # (Auto) 0.34 K/uL (0-0.5) Basophils # (Auto) 0.03 K/uL (0-0.2) RDW Standard Deviation 58.5 fL (36.4-46.3) RDW Coefficient of Variation 15.9 % (11.5-14.5) Immature Granulocyte % (Auto) 0.6 % Immature Granulocyte # (Auto) 0.05 K/uL (0.00-0.02) Anion Gap 7.0 mmol/L (3-11) Est Creatinine Clear Calc Drug Dose 11.3 ml/min Estimated GFR () 11.8 Estimated GFR (Non- 10.2 BUN/Creatinine Ratio 9.7 (10-20) Estimated Average Glucose 108 mg/dl Hemoglobin A1c 5.4 % (4.5-5.6) Calcium Level 9.6 mg/dl (8.5-10.1) Magnesium Level 2.7 mg/dl (1.8-2.4) Bedside Glucose 114 mg/dl (70-90) Hepatitis B Surface Antigen NEG (NEG) Hepatitis B Surface Antibody POS Allergies Coded Allergies: No Known Allergies (Unverified , 01/11/17) Medications Current Inpatient Medications Medications (Trade) Dose Ordered Sig/Janeth Route Start Time Stop Time Status Last Admin Dose Admin Allopurinol (Zyloprim Tab) 50 mg QAM PO 01/11/17 09:00 02/10/17 08:59 01/12/17 07:46 50 MG Amiodarone HCl (Cordarone Tab) 200 mg QAM PO 01/11/17 09:00 02/10/17 08:59 01/12/17 07:46 200 MG Clopidogrel Bisulfate (plAVix TAB) 75 mg HS PO 01/11/17 21:00 02/10/17 20:59 01/11/17 20:23 75 MG Hydrocodone Bit/ Homatropine Methylb (Hycodan Syrup) 0.2 ml Q4 PRN PO 01/11/17 03:15 01/25/17 03:14 Multivitamins (Multivitamin Tab) 2 tab QAM PO 01/11/17 09:00 02/10/17 08:59 01/12/17 07:46 2 TAB Pantoprazole Sodium (Protonix Tab) 40 mg QAM PO 01/11/17 09:00 02/10/17 08:59 01/12/17 07:47 40 MG Rosuvastatin Calcium (Crestor Tab) 10 mg HS PO 01/11/17 21:00 02/10/17 20:59 01/11/17 20:23 10 MG Senna/Docusate Sodium (Senokot S Tab) 1 tab BID PO 01/11/17 09:00 02/10/17 08:59 01/12/17 07:46 1 TAB Sevelamer HCl (Renagel Tab) 800 mg TIDM PO 01/11/17 07:30 02/10/17 07:29 01/11/17 17:20 800 MG Heparin Sodium (Porcine) 1 ea 1 ea TODAY@0600 N/A 01/12/17 06:00 01/12/17 18:00 01/12/17 05:42 1 EA Epoetin Joshua/ Syringe (Procrit Inj/ Syringe) 0.4 ml @ 1 mls/min TODAY@0600 IV. 01/12/17 06:00 01/12/17 18:00 Insulin Aspart (novoLOG ASPART) SLIDING SCALE If C... ACHS SC 01/11/17 16:15 02/11/17 16:14 Glucose (Glucose 40% Gel) 15-30 GRAMS 15 GRAMS... UD PRN PO 01/11/17 12:45 02/10/17 12:44 Glucose (Glucose Chew Tab) 4-8 Tablets 4 Tabl... UD PRN PO 01/11/17 12:45 02/10/17 12:44 Dextrose (Dextrose 50% 50ML Syringe) 25-50ML OF 50% DW IV FOR... UD PRN IV 01/11/17 12:45 02/10/17 12:44 01/11/17 15:05 25 ML Glucagon (Glucagon Inj) 1 mg UD PRN SQ 01/11/17 12:45 02/10/17 12:44 Nitroglycerin (Nitroglycerin 2% Oint) 0.5 inch Q6H EXT 01/11/17 14:00 02/10/17 12:44 01/12/17 07:45 0.5 INCH Ioversol 100 ml 100 ml UD PRN IV 01/11/17 13:00 01/15/17 12:59 Dextrose (D5W 1000ml) 1,000 ml @ 50 mls/hr Q20H IV 01/11/17 15:45 02/10/17 15:44 01/11/17 16:35 50 MLS/HR Enteral Nutritional Formula 1 can 1 can TID PO 01/11/17 17:30 02/10/17 17:29 01/11/17 20:20 1 CAN Heparin Sodium/ Dextrose (Heparin 25,000 Unit/500ml D5W) 500 ml @ 16 mls/hr Q24H PRN IV 01/12/17 13:00 02/11/17 12:59 Impression (1) DVT (deep venous thrombosis) (2) Pulmonary embolism (3) ESRD (end stage renal disease) on dialysis (4) Hypertension (5) Diabetes (6) Anemia Patient admitted for evaluation of dyspnea, LLE DVT and probable PE. She has ASCVD and has been on ASA & Plavix chronically as an outpatient. She has required transfusion w/ 4 U PRBC 09/19 due to LGI bleeding. PMH - ESRD on HD MWF at [facility] (HD Rx: 4 hr 2K 2Ca F-160 EDW 74 kg Heparin 2000 bolus / 1000 hourly), ASCVD s/p CABG x 4 1996, cardiac cath 2006 complicated by pseudoaneurysm of the right femoral artery requiring emergency surgical repair, AODM, HTN, PVD w/ carotid stenosis, h/o nephrolithiasis, cholelithiasis, OA, LGI bleeding 09/19 requiring transfusion w/ 4 U PRBC Recommendations END STAGE RENAL DISEASE: -- Heparin free HD today. Will use AVF. Orders entered into EMR and HD RN notified DVT: -- CT angiogram report reviewed today: Negative for PE -- Risks/Benefits/Alternatives to anticoagulation and Zora filter discussed w/ patient and her family this morning. Patient wishes to undergo anticoagulation w/ Heparin and Warfarin. She will consider [place] filter placement only if she has bleeding complications
[2017-01-12] MEDS: DEXTROSE 5% 1000ML 1,000 ML IV SCH (11:47)
[2017-01-12] MEDS ORDERED: NURSING VERBAL MED ORDER ONE ×3 (12:00→17:30)
[2017-01-12 12:14] LABS: INR 1.1 (0.9-1.1); PROTHROMBIN TIME (PATIENT) 11.3 SECONDS (9.0-12.0)
[2017-01-12] MEDS: BOOST BREEZE NUTRITION DRINK 1 BOX PO SCH (16:45)
[2017-01-12] MEDS: HEPARIN 25,000 UNIT/500ML D5W 500 ML IV PRN (17:13)
[2017-01-12] MEDS: ONDANSETRON INJ 2 MG/ML 2 ML VIAL IV PRN (19:29)
[2017-01-12] MEDS: ALBUTEROL 0.083% NEBU SOLN 3 ML VIAL INH SCH ×2 (20:00→23:27)
[2017-01-12] MEDS: ROSUVASTATIN CALCIUM 10 MG TAB PO SCH (20:11)
[2017-01-12] MEDS: CLOPIDOGREL BISULFATE 75 MG TAB PO SCH (20:11)
--- NOTE | 2017-01-12 21:44 | Hospitalist Progress Note ---
Hospitalist Progress Note Date of Service January 12, 2017. Subjective Pt evaluation today including: conversation w/ patient, conversation w/ family Patient seen early this morning. She was about to go have her tunneled IJ catheter removed. She has decided that she would like to pursue anticoagulation as opposed to IVC filter placement given her history of GI bleeding in the past. This will be started today after her catheter removal and hemodialysis is completed. Otherwise, no chest pain or shortness of breath All Other Systems: Reviewed and Negative Objective Vital Signs Date Time Temp Pulse Resp B/P Pulse Ox O2 Delivery O2 Flow Rate FiO2 01/12/17 20:49 68 16 96 Nasal Cannula 2.0 01/12/17 19:37 36.8 78 22 123/68 98 Nasal Cannula 2.0 01/12/17 17:04 36.5 68 20 112/60 94 Nasal Cannula 2.0 01/12/17 17:01 36.8 72 118/68 01/12/17 16:30 60 103/62 01/12/17 16:15 56 107/59 01/12/17 16:00 56 117/63 01/12/17 16:00 Nasal Cannula 2.0 01/12/17 15:45 62 123/73 01/12/17 15:30 60 112/59 01/12/17 15:15 59 111/55 01/12/17 15:00 63 111/65 01/12/17 14:45 52 102/55 01/12/17 14:30 66 110/60 01/12/17 14:15 64 92/54 01/12/17 14:00 61 101/71 01/12/17 13:45 75 98/55 01/12/17 13:30 66 106/49 01/12/17 13:15 63 110/58 01/12/17 13:00 68 106/61 01/12/17 12:45 71 102/51 01/12/17 12:30 37.1 71 110/41 01/12/17 12:30 65 108/46 01/12/17 12:00 Nasal Cannula 2.0 01/12/17 11:30 36.5 70 16 126/63 99 Nasal Cannula 2.0 01/12/17 11:15 36.5 70 16 134/68 99 Nasal Cannula 2.0 01/12/17 11:00 36.5 70 16 112/70 99 Nasal Cannula 2.0 01/12/17 10:45 36.5 70 16 144/69 99 Nasal Cannula 01/12/17 09:52 36.4 67 18 138/70 97 Nasal Cannula 2.0 01/12/17 09:00 36.6 70 18 138/70 98 Nasal Cannula 2.0 01/12/17 08:00 Nasal Cannula 2.0 01/12/17 07:39 36.4 67 18 138/70 97 Nasal Cannula 2.0 01/12/17 04:00 Nasal Cannula 3.5 01/12/17 03:24 36.6 68 18 143/61 97 Nasal Cannula 2.0 01/12/17 00:00 Nasal Cannula 3.5 01/11/17 23:33 36.8 75 26 126/69 96 Nasal Cannula 3.0 Physical Exam General Appearance: WD/WN, no apparent distress Eyes: normal inspection, sclerae normal ENT: hearing grossly normal Neck: trachea midline Respiratory/Chest: lungs clear, normal breath sounds, no respiratory distress, no accessory muscle use Cardiovascular: regular rate, rhythm, no edema, no murmur Abdomen: normal bowel sounds, non tender, soft Extremities: no calf tenderness Neurologic/Psychiatric: alert, normal mood/affect, oriented x 3 Skin: normal color, warm/dry, no rash Laboratory Results Last 24 Hours Test 01/11/17 23:38 01/12/17 02:15 01/12/17 05:59 01/12/17 06:22 Bedside Glucose 213 mg/dl 114 mg/dl Total Creatine Kinase 26 U/L Creatine Kinase MB 1.7 ng/ml Creatine Kinase MB Ratio 6.5 Troponin I 0.743 ng/ml White Blood Count 9.00 K/uL Red Blood Count 3.13 M/uL Hemoglobin 10.4 g/dL Hematocrit 31.9 % Mean Corpuscular Volume 101.9 fL Mean Corpuscular Hemoglobin 33.2 pg Mean Corpuscular Hemoglobin Concent 32.6 g/dl Platelet Count 175 K/uL Mean Platelet Volume 9.9 fL Neutrophils (%) (Auto) 69.2 % Lymphocytes (%) (Auto) 15.0 % Monocytes (%) (Auto) 11.1 % Eosinophils (%) (Auto) 3.8 % Basophils (%) (Auto) 0.3 % Neutrophils # (Auto) 6.23 K/uL Lymphocytes # (Auto) 1.35 K/uL Monocytes # (Auto) 1.00 K/uL Eosinophils # (Auto) 0.34 K/uL Basophils # (Auto) 0.03 K/uL RDW Standard Deviation 58.5 fL RDW Coefficient of Variation 15.9 % Immature Granulocyte % (Auto) 0.6 % Immature Granulocyte # (Auto) 0.05 K/uL Sodium Level 135 mmol/L Potassium Level 4.0 mmol/L Chloride Level 96 mmol/L Carbon Dioxide Level 32 mmol/L Anion Gap 7.0 mmol/L Blood Urea Nitrogen 37 mg/dl Creatinine 3.80 mg/dl Est Creatinine Clear Calc Drug Dose 11.3 ml/min Estimated GFR () 11.8 Estimated GFR (Non- 10.2 BUN/Creatinine Ratio 9.7 Random Glucose 110 mg/dl Estimated Average Glucose 108 mg/dl Hemoglobin A1c 5.4 % Calcium Level 9.6 mg/dl Magnesium Level 2.7 mg/dl Test 01/12/17 09:55 01/12/17 11:17 01/12/17 11:57 01/12/17 17:09 Hepatitis B Surface Antigen NEG Hepatitis B Surface Antibody POS Bedside Glucose 114 mg/dl 129 mg/dl Prothrombin Time 11.3 SECONDS Prothromb Time International Ratio 1.1 Activated Partial Thromboplast Time 24.7 SECONDS Partial Thromboplastin Ratio 1.0 Test 01/12/17 20:54 Bedside Glucose 161 mg/dl Assessment and Plan 86 year old female with multiple co-morbidities presents with chest pain with new DVT left leg. DVT-Acute, POA CT angiogram of the chest was negative for PE. Discussion was had of placing an IVC filter versus anticoagulation given her history of severe GI bleeding 5 months ago. Patient has now opted for anticoagulation under close observation. -start on heparin drip now that her tunneled IJ catheter has been removed removed -Start Coumadin if no evidence of GI bleeding after 1-2 days -Discussed with cardiology and will permanently discontinue her aspirin to avoid triple therapy-we'll continue Plavix and Coumadin only Chest pain/Coronary artery disease / LVEF approximately 50% / Moderate aortic stenosis / Moderate mitral regurgitation/demand ischemia Echo: There is mild concentric left ventricular hypertrophy. * Left ventricular systolic function is low normal. * There are regional wall motion abnormalities as specified. * The left atrium is severely dilated. * The right atrium is mildly dilated. * Moderate valvular aortic stenosis. * There is moderate mitral regurgitation. * Compared to a study from 06/2016, the trans-aortic velocities are slightly higher. Otherwise minimal change She did have an episode of typical angina prior to and during admission that was relieved with nitroglycerin. Her troponins were trended and are mildly elevated at 0.9 but stable, ECGs are fairly unchanged from previous with a left bundle branch block. No cardiac catheterization is indicated at this time. -Continue Nitropaste -Appreciate cardiology consult - Consideration should be made to place her on a long-acting nitrate upon discharge - Continue plavix and discontinue aspirin due to risk of bleeding on triple therapy as above, continue rosuvastatin. - Not on ACEi or BB secondary to history of ESRD and hypotension Paroxysmal atrial fibrillation-in normal sinus rhythm here - continue amiodarone -Starting anticoagulation as above ESRD on dialysis-stable - consult nephrology appreciated -Continue hemodialysis here Sunday -Renally dose all medications [id number] recurrent episodes of hypoglycemia upon admission, hemoglobin A1c 5.4% here which is normal -Discontinue home NPH - BSG ACHS -Consideration should be made permanently discontinue her insulin upon discharge Code - DNR Disposition To home in 2-3 days
[2017-01-12 23:42] LABS: PARTIAL THROMBOPLASTIN RATIO 1.5
[2017-01-13] VITALS (11 sets, daily range): BP systolic 107–127; BP diastolic 62–70; PULSE 68–78; TEMP 36.4–37.1; O2SAT 94–100
[2017-01-13] MEDS ORDERED: HEPARIN IV BOLUS 4,500 UNIT in SYRINGE 0 ML IV ONE
[2017-01-13] MEDS: NITROGLYCERIN OINT 2% 1GM PACKET EXT SCH ×4 (01:35→19:39)
[2017-01-13] MEDS: ALBUTEROL 0.083% NEBU SOLN 3 ML VIAL INH SCH ×6 (03:12→23:19)
[2017-01-13] MEDS: INSULIN ASPART 100 UNITS/ML 3 ML PEN SC SCH ×4 (07:00→21:00)
[2017-01-13 07:25] LABS: HEMATOCRIT 31.5 % (37-47); MEAN CELL VOLUME 101.3 fL (80-100); MEAN CORPUSCULAR HEMOGLOBIN 31.2 pg (25-34); MEAN CORPUSCULAR HGB CONC 30.8 g/dl (32-36); MEAN PLATELET VOLUME 9.9 fL (7.4-10.4); PLATELET COUNT 175 K/uL (130-400); RED BLOOD COUNT 3.11 M/uL (4.2-5.4); WHITE BLOOD COUNT 7.45 K/uL (4.8-10.8)
[2017-01-13] MEDS: BOOST BREEZE NUTRITION DRINK 1 BOX PO SCH ×2 (07:43→16:45)
[2017-01-13 07:44] LABS: PARTIAL THROMBOPLASTIN RATIO 3.3
[2017-01-13] MEDS: DOCUSATE SODIUM/SENNA 50/8.6MG TAB PO SCH ×2 (07:44→19:40)
[2017-01-13] MEDS: SEVELAMER HYDROCH 800 MG TAB PO SCH ×3 (07:44→17:05)
[2017-01-13] MEDS: MULTIVITAMIN TAB PO SCH (07:44)
[2017-01-13] MEDS: AMIODARONE 200 MG TAB PO SCH (07:44)
[2017-01-13] MEDS: ALLOPURINOL 100 MG TAB PO SCH (07:45)
[2017-01-13 08:05] LABS: CALCIUM 8.6 mg/dl (8.5-10.1); CREATININE 2.5 mg/dl (0.60-1.20); POTASSIUM 3.6 mmol/L (3.5-5.1)
[2017-01-13] MEDS: PANTOprazole SOD 40 MG TAB PO SCH (08:06)
[2017-01-13] MEDS: HEPARIN 25,000 UNIT/500ML D5W 500 ML IV PRN ×3 (08:31→19:43)
--- NOTE | 2017-01-13 13:10 | Nephrology Progress Note ---
Nephrology Progress Note Date of Service January 13, 2017. Chief Complaint Follow-up for end-stage renal disease on hemodialysis. José Huang was seen and examined in her room this morning with her daughters at bedside. She has been otherwise feeling fine, denies any shortness of breath or chest pain. Denies any pain in her lower extremity. Had dialysis yesterday night uneventful, however during dialysis she noticed pain in her left upper extremity. Had tunnel dialysis catheter removed. Hemoglobin slightly dropped. She has been on them heparin drip for acute DVT. Review of Systems A complete review of systems was performed. Pertinent positives are noted above. All other systems are negative. Vital Signs Last 8 Hrs Date Time Temp Pulse Resp B/P Pulse Ox O2 Delivery O2 Flow Rate FiO2 01/13/17 12:00 Nasal Cannula 2.0 01/13/17 11:55 36.6 72 20 113/64 94 Nasal Cannula 2.0 01/13/17 11:26 73 16 98 Nasal Cannula 2.0 01/13/17 08:00 Nasal Cannula 2.0 01/13/17 07:44 36.4 69 20 126/70 100 Nasal Cannula 2.0 01/13/17 07:30 68 16 98 Nasal Cannula 2.0 I & O 24-Hour Column 01/13/17 07:59 Intake Total 832 ml Output Total 1500 ml Balance -668 ml Last Recorded Weight Weight (Kilograms): 75.500 Physical Exam GENERAL: Elderly female, AAA x 3, pleasant, healthy-appearing, not in any distress. NECK: Supple, no JVD. RESPIRATORY: Normal breathing efforts, no accessory muscle use, clear to auscultation bilaterally, no wheezes or rales. CARDIOVASCULAR: S1, S2 normal, rate rhythm regular. EXTREMITY: 1+ bilateral lower extremity edema. left arm AV fistula with thrill and bruit NEURO: speech fluent. PSYCHIATRY: Normal mood and judgment Family History Asthma Cancer SISTER (Breast cancer) Chronic kidney disease MOTHER Diabetes mellitus FATHER Heart disease FATHER Hypertension FATHER MOTHER Kidney disease Kidney stones Stroke Mother - CKD Social History Smoking Status: Never smoker Drug Use: none Marital Status: Housing Status: lives with family Occupation: retired . Retired. Never a smoker. Laboratory Results Past 24 Hours 01/13/17 07:09 01/13/17 07:09 Test 01/12/17 17:09 01/12/17 20:54 01/12/17 23:20 01/13/17 06:29 Bedside Glucose 129 mg/dl (70-90) 161 mg/dl (70-90) 110 mg/dl (70-90) Activated Partial Thromboplast Time 38.3 SECONDS (21.0-31.0) Partial Thromboplastin Ratio 1.5 Test 01/13/17 07:09 01/13/17 11:02 01/13/17 11:30 Red Blood Count 3.11 M/uL (4.2-5.4) Mean Corpuscular Volume 101.3 fL (80-100) Mean Corpuscular Hemoglobin 31.2 pg (25-34) Mean Corpuscular Hemoglobin Concent 30.8 g/dl (32-36) RDW Standard Deviation 58.7 fL (36.4-46.3) RDW Coefficient of Variation 15.9 % (11.5-14.5) Mean Platelet Volume 9.9 fL (7.4-10.4) Activated Partial Thromboplast Time 85.7 SECONDS (21.0-31.0) Partial Thromboplastin Ratio 3.3 Anion Gap 7.0 mmol/L (3-11) Est Creatinine Clear Calc Drug Dose 17.1 ml/min Estimated GFR () 19.6 Estimated GFR (Non- 17.0 BUN/Creatinine Ratio 7.0 (10-20) Calcium Level 8.6 mg/dl (8.5-10.1) Bedside Glucose 170 mg/dl (70-90) Stool Occult Blood NEGATIVE (NEGATIVE) Allergies Coded Allergies: No Known Allergies (Unverified , 01/11/17) Medications Current Inpatient Medications Medications (Trade) Dose Ordered Sig/Janeth Route Start Time Stop Time Status Last Admin Dose Admin Allopurinol (Zyloprim Tab) 50 mg QAM PO 01/11/17 09:00 02/10/17 08:59 01/13/17 07:45 50 MG Amiodarone HCl (Cordarone Tab) 200 mg QAM PO 01/11/17 09:00 02/10/17 08:59 01/13/17 07:44 200 MG Clopidogrel Bisulfate (plAVix TAB) 75 mg HS PO 01/11/17 21:00 02/10/17 20:59 01/12/17 20:11 75 MG Hydrocodone Bit/ Homatropine Methylb (Hycodan Syrup) 0.2 ml Q4 PRN PO 01/11/17 03:15 01/25/17 03:14 Multivitamins (Multivitamin Tab) 2 tab QAM PO 01/11/17 09:00 02/10/17 08:59 01/13/17 07:44 2 TAB Pantoprazole Sodium (Protonix Tab) 40 mg QAM PO 01/11/17 09:00 02/10/17 08:59 01/13/17 08:06 40 MG Rosuvastatin Calcium (Crestor Tab) 10 mg HS PO 01/11/17 21:00 02/10/17 20:59 01/12/17 20:11 10 MG Senna/Docusate Sodium (Senokot S Tab) 1 tab BID PO 01/11/17 09:00 02/10/17 08:59 01/13/17 07:44 1 TAB Sevelamer HCl (Renagel Tab) 800 mg TIDM PO 01/11/17 07:30 02/10/17 07:29 01/13/17 11:51 800 MG Insulin Aspart (novoLOG ASPART) SLIDING SCALE If C... ACHS SC 01/11/17 16:15 02/11/17 16:14 Glucose (Glucose 40% Gel) 15-30 GRAMS 15 GRAMS... UD PRN PO 01/11/17 12:45 02/10/17 12:44 Glucose (Glucose Chew Tab) 4-8 Tablets 4 Tabl... UD PRN PO 01/11/17 12:45 02/10/17 12:44 Dextrose (Dextrose 50% 50ML Syringe) 25-50ML OF 50% DW IV FOR... UD PRN IV 01/11/17 12:45 02/10/17 12:44 01/11/17 15:05 25 ML Glucagon (Glucagon Inj) 1 mg UD PRN SQ 01/11/17 12:45 02/10/17 12:44 Nitroglycerin (Nitroglycerin 2% Oint) 0.5 inch Q6H EXT 01/11/17 14:00 02/10/17 12:44 01/13/17 07:43 0.5 INCH Ioversol 100 ml 100 ml UD PRN IV 01/11/17 13:00 01/15/17 12:59 Heparin Sodium/ Dextrose (Heparin 25,000 Unit/500ml D5W) 500 ml @ 16 mls/hr Q24H PRN IV 01/12/17 13:00 02/11/17 12:59 01/13/17 08:31 16 MLS/HR Albuterol Sulfate (Ventolin 0.083% 2.5MG/3ML Neb) 2.5 mg Q4R INH 01/12/17 16:00 02/11/17 15:59 01/13/17 11:26 2.5 MG Enteral Nutritional Formula (Boost Breeze Nutritional Drink) 1 box BIDM PO 01/12/17 16:45 02/11/17 16:44 01/13/17 07:43 1 BOX Ondansetron HCl (Zofran Inj) 4 mg Q8H PRN IV 01/12/17 18:00 02/11/17 17:59 01/12/17 19:29 4 MG Impression (1) DVT (deep venous thrombosis) (2) Pulmonary embolism (3) ESRD (end stage renal disease) on dialysis (4) Hypertension (5) Diabetes (6) Anemia Patient admitted for evaluation of dyspnea, LLE DVT and probable PE. She has ASCVD and has been on ASA & Plavix chronically as an outpatient. She has required transfusion w/ 4 U PRBC 09/19 due to LGI bleeding. PMH - ESRD on HD MWF at [facility] (HD Rx: 4 hr 2K 2Ca F-160 EDW 74 kg Heparin 2000 bolus / 1000 hourly), ASCVD s/p CABG x 4 1996, cardiac cath 2006 complicated by pseudoaneurysm of the right femoral artery requiring emergency surgical repair, AODM, HTN, PVD w/ carotid stenosis, h/o nephrolithiasis, cholelithiasis, OA, LGI bleeding 09/19 requiring transfusion w/ 4 U PRBC Recommendations END STAGE RENAL DISEASE: -- had dialysis yesterday as regular schedule, currently electrolyte, blood pressure and volume status acceptable --Will monitor over the weekend and plan for next dialysis treatment on Sunday. -- Avoid nephrotoxins medications, dose medications for less than 10 and avoid IV fluid --Continue on Nephrocaps daily -- continue on phosphate binder with meal --Will give RANJAN during dialysis DVT: -- CT angiogram report reviewed today: Negative for PE -- Risks/Benefits/Alternatives to anticoagulation and Zora filter discussed w/ patient and her family this morning. Patient wishes to undergo anticoagulation w/ Heparin and Warfarin. She will consider [place] filter placement only if she has bleeding complications. considering her prior history of GI bleeding and drop in hemoglobin today, plan to check her FOBT this morning and if there is no sign of bleeding may consider starting her on Coumadin from tomorrow.
--- NOTE | 2017-01-13 13:49 | Hospitalist Progress Note ---
Hospitalist Progress Note Date of Service January 13, 2017. Subjective Pt evaluation today including: conversation w/ patient, conversation w/ family , physical exam, lab review, conversation w/ student union consultant (Nephrology) Pt feeling tired today. No blood in stool, no melena. No CP or SOB. Hgb slight drop today after starting heparin gtt. Had left arm pain w/ HD yesterday and now needs AV fistulogram as per Nephrology All Other Systems: Reviewed and Negative Objective Vital Signs Date Time Temp Pulse Resp B/P Pulse Ox O2 Delivery O2 Flow Rate FiO2 01/13/17 12:00 Nasal Cannula 2.0 01/13/17 11:55 36.6 72 20 113/64 94 Nasal Cannula 2.0 01/13/17 11:26 73 16 98 Nasal Cannula 2.0 01/13/17 08:00 Nasal Cannula 2.0 01/13/17 07:44 36.4 69 20 126/70 100 Nasal Cannula 2.0 01/13/17 07:30 68 16 98 Nasal Cannula 2.0 01/13/17 04:00 98 Nasal Cannula 2.0 01/13/17 03:24 37.1 70 16 107/62 97 Nasal Cannula 2.0 01/12/17 23:59 98 Nasal Cannula 2.0 01/12/17 23:27 73 16 95 Nasal Cannula 2.0 01/12/17 23:17 36.8 71 16 138/84 95 Nasal Cannula 2.0 01/12/17 20:49 68 16 96 Nasal Cannula 2.0 01/12/17 20:00 98 Nasal Cannula 2.0 01/12/17 19:37 36.8 78 22 123/68 98 Nasal Cannula 2.0 01/12/17 17:04 36.5 68 20 112/60 94 Nasal Cannula 2.0 01/12/17 17:01 36.8 72 118/68 01/12/17 16:30 60 103/62 01/12/17 16:15 56 107/59 01/12/17 16:00 56 117/63 01/12/17 16:00 Nasal Cannula 2.0 01/12/17 15:45 62 123/73 01/12/17 15:30 60 112/59 01/12/17 15:15 59 111/55 01/12/17 15:00 63 111/65 5/12/17 14:45 52 102/55 01/12/17 14:30 66 110/60 01/12/17 14:15 64 92/54 01/12/17 14:00 61 101/71 01/12/17 13:45 75 98/55 Physical Exam General Appearance: WD/WN, no apparent distress (lying in bed) Eyes: normal inspection, sclerae normal ENT: hearing grossly normal Neck: trachea midline Respiratory/Chest: no respiratory distress, no accessory muscle use, + crackles (at bases bilat) Cardiovascular: regular rate, rhythm, no gallop, + systolic murmur (3/6 heard best at LLSB and 2/6 at RUSB of a harsher quality), + pertinent finding (1+ pitting edema left leg) Abdomen: normal bowel sounds, non tender, soft Extremities: + pertinent finding (1+ pitting edema left leg with mild erythema and tenderness) Neurologic/Psychiatric: alert Skin: + pertinent finding (right anterior chest wall with small area of ecchymosis around previous catheter site, no hematoma) Laboratory Results Last 24 Hours Test 01/12/17 17:09 01/12/17 20:54 01/12/17 23:20 01/13/17 06:29 Bedside Glucose 129 mg/dl 161 mg/dl 110 mg/dl Activated Partial Thromboplast Time 38.3 SECONDS Partial Thromboplastin Ratio 1.5 Test 01/13/17 07:09 01/13/17 11:02 01/13/17 11:30 White Blood Count 7.45 K/uL Red Blood Count 3.11 M/uL Hemoglobin 9.7 g/dL Hematocrit 31.5 % Mean Corpuscular Volume 101.3 fL Mean Corpuscular Hemoglobin 31.2 pg Mean Corpuscular Hemoglobin Concent 30.8 g/dl RDW Standard Deviation 58.7 fL RDW Coefficient of Variation 15.9 % Platelet Count 175 K/uL Mean Platelet Volume 9.9 fL Activated Partial Thromboplast Time 85.7 SECONDS Partial Thromboplastin Ratio 3.3 Sodium Level 136 mmol/L Potassium Level 3.6 mmol/L Chloride Level 100 mmol/L Carbon Dioxide Level 29 mmol/L Anion Gap 7.0 mmol/L Blood Urea Nitrogen 18 mg/dl Creatinine 2.50 mg/dl Est Creatinine Clear Calc Drug Dose 17.1 ml/min Estimated GFR () 19.6 Estimated GFR (Non- 17.0 BUN/Creatinine Ratio 7.0 Random Glucose 102 mg/dl Calcium Level 8.6 mg/dl Bedside Glucose 170 mg/dl Stool Occult Blood NEGATIVE Assessment and Plan 86 year old female with multiple co-morbidities presents with chest pain with acute DVT left leg. DVT-Acute, POA, Anemia of CKD, h/o GI bleeding CT angiogram of the chest was negative for PE. Discussion was had of placing an IVC filter versus anticoagulation given her history of severe GI bleeding 5 months ago. Patient has now opted for anticoagulation under close observation. Hgb dropped a bit today to 9.7. Hemoccult stool checked and is negative. -continue heparin drip now that her tunneled IJ catheter has been removed -Start Coumadin if no evidence of GI bleeding after 1-2 days-not today, possibly tomorrow if hgb stable -Discussed with cardiology and will permanently discontinue her aspirin to avoid triple therapy-we'll continue Plavix and Coumadin only -RANJAN to be given with HD Chest pain/Coronary artery disease / LVEF approximately 50% / Moderate aortic stenosis / Moderate mitral regurgitation/demand ischemia Echo: There is mild concentric left ventricular hypertrophy. * Left ventricular systolic function is low normal. * There are regional wall motion abnormalities as specified. * The left atrium is severely dilated. * The right atrium is mildly dilated. * Moderate valvular aortic stenosis. * There is moderate mitral regurgitation. * Compared to a study from 06/2016, the trans-aortic velocities are slightly higher. Otherwise minimal change She did have an episode of typical angina prior to and during admission that was relieved with nitroglycerin. Her troponins were trended and are mildly elevated at 0.9 but stable, ECGs are fairly unchanged from previous with a left bundle branch block. No cardiac catheterization is indicated at this time. -Continue Nitropaste -Appreciate cardiology consult - Consideration should be made to place her on a long-acting nitrate upon discharge - Continue plavix and discontinue aspirin due to risk of bleeding on triple therapy as above, continue rosuvastatin. - Not on ACEi or BB secondary to history of ESRD and hypotension Paroxysmal atrial fibrillation-in normal sinus rhythm here - continue amiodarone -Starting anticoagulation as above ESRD on dialysis-stable. Left Arm pain may indicate steal syndrome as per Nephro - consult nephrology appreciated -Continue hemodialysis here Sunday -Renally dose all medications -Vascular consulted by Nephro for AV fistulogram for Sunday and may need procedure to fix this if is showing sign of steal -continue binders, Nephrocaps [id number] recurrent episodes of hypoglycemia upon admission, hemoglobin A1c 5.4% here which is normal. Improved glucose now -Discontinue home NPH - BSG ACHS -Consideration should be made permanently discontinue her insulin upon discharge Code - DNR Disposition To home in 2-3 days
[2017-01-13 14:33] LABS: PARTIAL THROMBOPLASTIN RATIO 1.6
[2017-01-13] MEDS ORDERED: HEPARIN IV BOLUS 3,000 UNIT in SYRINGE 0 ML IV ONE (15:15)
[2017-01-13] MEDS: ROSUVASTATIN CALCIUM 10 MG TAB PO SCH (19:40)
[2017-01-13] MEDS: CLOPIDOGREL BISULFATE 75 MG TAB PO SCH (19:40)
[2017-01-13 21:11] LABS: PARTIAL THROMBOPLASTIN RATIO 2.6
[2017-01-14] VITALS (11 sets, daily range): BP systolic 114–148; BP diastolic 62–73; PULSE 67–75; TEMP 36.4–36.8; O2SAT 94–99
[2017-01-14] MEDS ORDERED: NURSING VERBAL MED ORDER ONE (01:00)
[2017-01-14] MEDS: ACETAMINOPHEN 325 MG TAB PO PRN (01:20)
[2017-01-14] MEDS: NITROGLYCERIN OINT 2% 1GM PACKET EXT SCH ×4 (01:20→19:11)
[2017-01-14] MEDS: ALBUTEROL 0.083% NEBU SOLN 3 ML VIAL INH SCH ×6 (03:40→23:22)
[2017-01-14] MEDS: INSULIN ASPART 100 UNITS/ML 3 ML PEN SC SCH ×4 (07:00→20:54)
[2017-01-14 07:07] LABS: BASO % 0.4 %; BASO ABS # 0.03 K/uL (0-0.2); COMPLETE YES; HEMATOCRIT 28.6 % (37-47); IG% 0.4 %; LYMPH % 23.5 %; MEAN CORPUSCULAR HEMOGLOBIN 32.5 pg (25-34); MEAN CORPUSCULAR HGB CONC 32.5 g/dl (32-36); MEAN PLATELET VOLUME 9.7 fL (7.4-10.4); MONO % 15.5 %; NEUT % 56.2 %; PLATELET COUNT 177 K/uL (130-400); RED BLOOD COUNT 2.86 M/uL (4.2-5.4); WHITE BLOOD COUNT 7.23 K/uL (4.8-10.8)
[2017-01-14 07:23] LABS: INR 1.1 (0.9-1.1); PARTIAL THROMBOPLASTIN RATIO 1.9; PROTHROMBIN TIME (PATIENT) 11.3 SECONDS (9.0-12.0)
[2017-01-14] MEDS: MULTIVITAMIN TAB PO SCH (07:40)
[2017-01-14] MEDS: SEVELAMER HYDROCH 800 MG TAB PO SCH ×3 (07:40→17:21)
[2017-01-14] MEDS: ALLOPURINOL 100 MG TAB PO SCH (07:40)
[2017-01-14] MEDS: BOOST BREEZE NUTRITION DRINK 1 BOX PO SCH ×2 (07:40→16:45)
[2017-01-14] MEDS: AMIODARONE 200 MG TAB PO SCH (07:41)
[2017-01-14] MEDS: PANTOprazole SOD 40 MG TAB PO SCH (07:41)
[2017-01-14] MEDS: DOCUSATE SODIUM/SENNA 50/8.6MG TAB PO SCH ×2 (07:42→19:11)
[2017-01-14 07:43] LABS: BUN/CREATININE RATIO 7.4 (10-20); CALCIUM 8.7 mg/dl (8.5-10.1); CREATININE 3.5 mg/dl (0.60-1.20); MAGNESIUM 2.3 mg/dl (1.8-2.4); POTASSIUM 3.4 mmol/L (3.5-5.1)
[2017-01-14] MEDS ORDERED: POTASSIUM CHLORIDE 10 MEQ TABCR PO ONE (09:45)
[2017-01-14] MEDS ORDERED: POLYETHYLENE (MIRALAX) 17 GM PACK PO ONE (10:00)
--- NOTE | 2017-01-14 10:03 | Nephrology Progress Note ---
Nephrology Progress Note Date of Service January 14, 2017. Chief Complaint Follow-up for end-stage renal disease on hemodialysis. José Huang was seen and examined in her room this morning. She has been otherwise feeling fine, denies any shortness of breath or chest pain. Denies any pain in her lower extremity. Had dialysis Sunday uneventful,currently BP and volume status stable. Hemoglobin slightly dropped to 9.3, FOBT negative. She has been on heparin drip for acute DVT. Review of Systems A complete review of systems was performed. Pertinent positives are noted above. All other systems are negative. Vital Signs Last 8 Hrs Date Time Temp Pulse Resp B/P Pulse Ox O2 Delivery O2 Flow Rate FiO2 01/14/17 08:00 Nasal Cannula 2.0 01/14/17 07:16 75 16 98 Nasal Cannula 2.0 01/14/17 04:00 Nasal Cannula 2.0 01/14/17 03:41 36.6 73 17 127/71 96 Nasal Cannula 2.0 I & O 24-Hour Column 01/14/17 08:00 Intake Total 718 ml Output Total 50 ml Balance 668 ml Last Recorded Weight Weight (Kilograms): 75.500 Physical Exam GENERAL: Elderly female, AAA x 3, pleasant, healthy-appearing, not in any distress. NECK: Supple, no JVD. RESPIRATORY: Normal breathing efforts, no accessory muscle use, clear to auscultation bilaterally, no wheezes or rales. CARDIOVASCULAR: S1, S2 normal, rate rhythm regular. EXTREMITY: 1+ bilateral lower extremity edema. left arm AV fistula with thrill and bruit NEURO: speech fluent. PSYCHIATRY: Normal mood and judgment Family History Asthma Cancer SISTER (Breast cancer) Chronic kidney disease MOTHER Diabetes mellitus FATHER Heart disease FATHER Hypertension FATHER MOTHER Kidney disease Kidney stones Stroke Mother - CKD Social History Smoking Status: Never smoker Drug Use: none Marital Status: Housing Status: lives with family Occupation: retired . Retired. Never a smoker. Laboratory Results Past 24 Hours 01/14/17 06:48 Red Blood Count 2.86, Mean Corpuscular Volume 100.0, Mean Corpuscular Hemoglobin 32.5, Mean Corpuscular Hemoglobin Concent 32.5, Mean Platelet Volume 9.7, Neutrophils (%) (Auto) 56.2, Lymphocytes (%) (Auto) 23.5, Monocytes (%) ( Auto) 15.5, Eosinophils (%) (Auto) 4.0, Basophils (%) (Auto) 0.4, Neutrophils # (Auto) 4.06, Lymphocytes # (Auto) 1.70, Monocytes # (Auto) 1.12, Eosinophils # ( Auto) 0.29, Basophils # (Auto) 0.03 01/14/17 06:45 Test 01/13/17 11:02 01/13/17 11:30 01/13/17 14:12 01/13/17 16:33 Bedside Glucose 170 mg/dl (70-90) 128 mg/dl (70-90) Stool Occult Blood NEGATIVE (NEGATIVE) Activated Partial Thromboplast Time 41.2 SECONDS (21.0-31.0) Partial Thromboplastin Ratio 1.6 Test 01/13/17 20:46 01/13/17 21:12 01/14/17 06:45 01/14/17 06:48 Activated Partial Thromboplast Time 66.5 SECONDS (21.0-31.0) 48.4 SECONDS (21.0-31.0) Partial Thromboplastin Ratio 2.6 1.9 Bedside Glucose 193 mg/dl (70-90) Anion Gap 8.0 mmol/L (3-11) Est Creatinine Clear Calc Drug Dose 12.2 ml/min Estimated GFR () 13.1 Estimated GFR (Non- 11.3 BUN/Creatinine Ratio 7.4 (10-20) Calcium Level 8.7 mg/dl (8.5-10.1) Magnesium Level 2.3 mg/dl (1.8-2.4) White Blood Count 7.23 K/uL (4.8-10.8) Red Blood Count 2.86 M/uL (4.2-5.4) Hemoglobin 9.3 g/dL (12.0-16.0) Hematocrit 28.6 % (37-47) Mean Corpuscular Volume 100.0 fL (80-100) Mean Corpuscular Hemoglobin 32.5 pg (25-34) Mean Corpuscular Hemoglobin Concent 32.5 g/dl (32-36) Platelet Count 177 K/uL (130-400) Mean Platelet Volume 9.7 fL (7.4-10.4) Neutrophils (%) (Auto) 56.2 % Lymphocytes (%) (Auto) 23.5 % Monocytes (%) (Auto) 15.5 % Eosinophils (%) (Auto) 4.0 % Basophils (%) (Auto) 0.4 % Neutrophils # (Auto) 4.06 K/uL (1.4-6.5) Lymphocytes # (Auto) 1.70 K/uL (1.2-3.4) Monocytes # (Auto) 1.12 K/uL (0.11-0.59) Eosinophils # (Auto) 0.29 K/uL (0-0.5) Basophils # (Auto) 0.03 K/uL (0-0.2) RDW Standard Deviation 56.4 fL (36.4-46.3) RDW Coefficient of Variation 15.6 % (11.5-14.5) Immature Granulocyte % (Auto) 0.4 % Immature Granulocyte # (Auto) 0.03 K/uL (0.00-0.02) Prothrombin Time 11.3 SECONDS (9.0-12.0) Prothromb Time International Ratio 1.1 (0.9-1.1) Test 01/14/17 06:59 Bedside Glucose 130 mg/dl (70-90) Allergies Coded Allergies: No Known Allergies (Unverified , 01/11/17) Medications Current Inpatient Medications Medications (Trade) Dose Ordered Sig/Janeth Route Start Time Stop Time Status Last Admin Dose Admin Allopurinol (Zyloprim Tab) 50 mg QAM PO 01/11/17 09:00 02/10/17 08:59 01/14/17 07:40 50 MG Amiodarone HCl (Cordarone Tab) 200 mg QAM PO 01/11/17 09:00 02/10/17 08:59 01/14/17 07:41 200 MG Clopidogrel Bisulfate (plAVix TAB) 75 mg HS PO 01/11/17 21:00 02/10/17 20:59 01/13/17 19:40 75 MG Hydrocodone Bit/ Homatropine Methylb (Hycodan Syrup) 0.2 ml Q4 PRN PO 01/11/17 03:15 01/25/17 03:14 Multivitamins (Multivitamin Tab) 2 tab QAM PO 01/11/17 09:00 02/10/17 08:59 01/14/17 07:40 2 TAB Pantoprazole Sodium (Protonix Tab) 40 mg QAM PO 01/11/17 09:00 02/10/17 08:59 01/14/17 07:41 40 MG Rosuvastatin Calcium (Crestor Tab) 10 mg HS PO 01/11/17 21:00 02/10/17 20:59 01/13/17 19:40 10 MG Senna/Docusate Sodium (Senokot S Tab) 1 tab BID PO 01/11/17 09:00 02/10/17 08:59 01/14/17 07:42 1 TAB Sevelamer HCl (Renagel Tab) 800 mg TIDM PO 01/11/17 07:30 02/10/17 07:29 01/14/17 07:40 800 MG Insulin Aspart (novoLOG ASPART) SLIDING SCALE If C... ACHS SC 01/11/17 16:15 02/11/17 16:14 Glucose (Glucose 40% Gel) 15-30 GRAMS 15 GRAMS... UD PRN PO 01/11/17 12:45 02/10/17 12:44 Glucose (Glucose Chew Tab) 4-8 Tablets 4 Tabl... UD PRN PO 01/11/17 12:45 02/10/17 12:44 Dextrose (Dextrose 50% 50ML Syringe) 25-50ML OF 50% DW IV FOR... UD PRN IV 01/11/17 12:45 02/10/17 12:44 01/11/17 15:05 25 ML Glucagon (Glucagon Inj) 1 mg UD PRN SQ 01/11/17 12:45 02/10/17 12:44 Nitroglycerin (Nitroglycerin 2% Oint) 0.5 inch Q6H EXT 01/11/17 14:00 02/10/17 12:44 01/14/17 07:42 0.5 INCH Ioversol 100 ml 100 ml UD PRN IV 01/11/17 13:00 01/15/17 12:59 Heparin Sodium/ Dextrose (Heparin 25,000 Unit/500ml D5W) 500 ml @ 17 mls/hr Q24H PRN IV 01/12/17 13:00 02/11/17 12:59 01/13/17 19:43 17 MLS/HR Albuterol Sulfate (Ventolin 0.083% 2.5MG/3ML Neb) 2.5 mg Q4R INH 01/12/17 16:00 02/11/17 15:59 01/14/17 07:16 2.5 MG Enteral Nutritional Formula (Boost Breeze Nutritional Drink) 1 box BIDM PO 01/12/17 16:45 02/11/17 16:44 01/14/17 07:40 1 BOX Ondansetron HCl (Zofran Inj) 4 mg Q8H PRN IV 01/12/17 18:00 02/11/17 17:59 01/12/17 19:29 4 MG Acetaminophen (Tylenol Tab) 650 mg Q6H PRN PO 01/14/17 01:15 02/13/17 01:14 01/14/17 01:20 650 MG Impression (1) DVT (deep venous thrombosis) (2) Pulmonary embolism (3) ESRD (end stage renal disease) on dialysis (4) Hypertension (5) Diabetes (6) Anemia Patient admitted for evaluation of dyspnea, LLE DVT and probable PE. She has ASCVD and has been on ASA & Plavix chronically as an outpatient. She has required transfusion w/ 4 U PRBC 09/19 due to LGI bleeding. PMH - ESRD on HD MWF at [facility] (HD Rx: 4 hr 2K 2Ca F-160 EDW 74 kg Heparin 2000 bolus / 1000 hourly), ASCVD s/p CABG x 4 1996, cardiac cath 2006 complicated by pseudoaneurysm of the right femoral artery requiring emergency surgical repair, AODM, HTN, PVD w/ carotid stenosis, h/o nephrolithiasis, cholelithiasis, OA, LGI bleeding 09/19 requiring transfusion w/ 4 U PRBC Recommendations -- had dialysis Sunday as regular schedule, currently electrolyte, blood pressure and volume status acceptable -- Will monitor over the weekend and plan for next dialysis treatment on Sunday. -- K low, ok to give 20 KCL now and will run on high K bath HD tomorrow -- Avoid nephrotoxins medications, dose medications for less than 10 and avoid IV fluid --Continue on Nephrocaps daily -- continue on phosphate binder with meal --Will give RANJAN during dialysis --agree with holding coumadin for now and continue on heparin as pt may need AVF intervention on Sunday
[2017-01-14] MEDS: POLYETHYLENE (MIRALAX) 17 GM PACK PO SCH (19:11)
[2017-01-14] MEDS: ROSUVASTATIN CALCIUM 10 MG TAB PO SCH (19:11)
[2017-01-14] MEDS: CLOPIDOGREL BISULFATE 75 MG TAB PO SCH (19:11)
[2017-01-14] MEDS: HEPARIN 25,000 UNIT/500ML D5W 500 ML IV PRN (22:01)
--- NOTE | 2017-01-14 23:22 | Hospitalist Progress Note ---
Hospitalist Progress Note Date of Service January 14, 2017. Subjective Pt evaluation today including: conversation w/ patient Patient feels well today, no further chest tightness, Hemoccult of stool was negative. Hemoglobin with very slight drop from yesterday but no overt bleeding while on heparin drip. Leg pain and swelling is improved on the left All Other Systems: Reviewed and Negative Objective Vital Signs Date Time Temp Pulse Resp B/P Pulse Ox O2 Delivery O2 Flow Rate FiO2 01/14/17 20:00 Nasal Cannula 2.0 01/14/17 19:24 67 16 97 Nasal Cannula 2.0 01/14/17 19:19 36.6 68 20 134/73 98 Nasal Cannula 2.0 01/14/17 16:23 36.4 69 22 139/66 95 Nasal Cannula 2.0 01/14/17 16:00 Nasal Cannula 2.0 01/14/17 15:30 68 16 96 Nasal Cannula 2.0 01/14/17 12:34 36.5 72 20 139/72 99 2.0 01/14/17 12:00 Nasal Cannula 2.0 01/14/17 11:15 73 16 97 Nasal Cannula 2.0 01/14/17 08:33 36.6 69 20 148/70 97 Nasal Cannula 2.0 01/14/17 08:00 Nasal Cannula 2.0 01/14/17 07:16 75 16 98 Nasal Cannula 2.0 01/14/17 04:00 Nasal Cannula 2.0 01/14/17 03:41 36.6 73 17 127/71 96 Nasal Cannula 2.0 01/13/17 23:59 Nasal Cannula 2.0 01/13/17 23:19 36.6 75 18 109/62 97 Nasal Cannula 2.0 01/13/17 23:19 74 14 97 Nasal Cannula 2.0 Physical Exam General Appearance: WD/WN, no apparent distress Eyes: normal inspection, sclerae normal ENT: hearing grossly normal Neck: trachea midline Respiratory/Chest: no respiratory distress, no accessory muscle use, + crackles (at the bases bilaterally, otherwise clear) Cardiovascular: regular rate, rhythm, + systolic murmur (high-pitched 3-6 midsystolic murmur at left lower sternal border, 2 out of 6 harsh holosystolic murmur at the right upper sternal border) Abdomen: normal bowel sounds, non tender, soft, no organomegaly, no pulsatile mass Extremities: + pertinent finding (left distal leg with mild erythema and tenderness, 1+ pitting edema) Neurologic/Psychiatric: alert, normal mood/affect Skin: normal color, warm/dry, no rash Laboratory Results Last 24 Hours Test 01/14/17 06:45 01/14/17 06:48 01/14/17 06:59 01/14/17 11:29 Sodium Level 133 mmol/L Potassium Level 3.4 mmol/L Chloride Level 97 mmol/L Carbon Dioxide Level 28 mmol/L Anion Gap 8.0 mmol/L Blood Urea Nitrogen 26 mg/dl Creatinine 3.50 mg/dl Est Creatinine Clear Calc Drug Dose 12.2 ml/min Estimated GFR () 13.1 Estimated GFR (Non- 11.3 BUN/Creatinine Ratio 7.4 Random Glucose 122 mg/dl Calcium Level 8.7 mg/dl Magnesium Level 2.3 mg/dl White Blood Count 7.23 K/uL Red Blood Count 2.86 M/uL Hemoglobin 9.3 g/dL Hematocrit 28.6 % Mean Corpuscular Volume 100.0 fL Mean Corpuscular Hemoglobin 32.5 pg Mean Corpuscular Hemoglobin Concent 32.5 g/dl Platelet Count 177 K/uL Mean Platelet Volume 9.7 fL Neutrophils (%) (Auto) 56.2 % Lymphocytes (%) (Auto) 23.5 % Monocytes (%) (Auto) 15.5 % Eosinophils (%) (Auto) 4.0 % Basophils (%) (Auto) 0.4 % Neutrophils # (Auto) 4.06 K/uL Lymphocytes # (Auto) 1.70 K/uL Monocytes # (Auto) 1.12 K/uL Eosinophils # (Auto) 0.29 K/uL Basophils # (Auto) 0.03 K/uL RDW Standard Deviation 56.4 fL RDW Coefficient of Variation 15.6 % Immature Granulocyte % (Auto) 0.4 % Immature Granulocyte # (Auto) 0.03 K/uL Prothrombin Time 11.3 SECONDS Prothromb Time International Ratio 1.1 Activated Partial Thromboplast Time 48.4 SECONDS Partial Thromboplastin Ratio 1.9 Bedside Glucose 130 mg/dl 145 mg/dl Test 01/14/17 16:39 01/14/17 20:12 Bedside Glucose 172 mg/dl 169 mg/dl Assessment and Plan 86 year old female with multiple co-morbidities presents with chest pain with acute DVT left leg. DVT-Acute, POA, Anemia of CKD, h/o GI bleeding-acute DVT most likely secondary to sedentary lifestyle and history of previous venous stasis in the left leg. She had CT of the chest on this admission which shows no evidence of malignancy , she had a CT of the abdomen and pelvis as well as an EGD and colonoscopy about 4 months ago all of which were negative for signs of malignancy. CT angiogram of the chest was negative for PE. Discussion was had of placing an IVC filter versus anticoagulation given her history of severe GI bleeding 5 months ago. Patient has now opted for anticoagulation under close observation. Hgb dropped a bit today to 9.3. Hemoccult stool checked and is negative. -continue heparin drip now that her tunneled IJ catheter has been removed -Start Coumadin if no evidence of GI bleeding after 1-2 days after AV fistula has been further evaluated and possibly repaired by vascular surgery -Would favor keeping her here with heparin as a bridge for close observation given recent GI bleed -Discussed with cardiology Dr. Hernandez and will permanently discontinue her aspirin to avoid triple therapy-we'll continue Plavix and Coumadin only -RANJAN to be given with HD Chest pain/Coronary artery disease / LVEF approximately 50% / Moderate aortic stenosis / Moderate mitral regurgitation/demand ischemia Echo: There is mild concentric left ventricular hypertrophy. * Left ventricular systolic function is low normal. * There are regional wall motion abnormalities as specified. * The left atrium is severely dilated. * The right atrium is mildly dilated. * Moderate valvular aortic stenosis. * There is moderate mitral regurgitation. * Compared to a study from 06/2016, the trans-aortic velocities are slightly higher. Otherwise minimal change She did have an episode of typical angina prior to and during admission that was relieved with nitroglycerin. Her troponins were trended and are mildly elevated at 0.9 but stable, ECGs are fairly unchanged from previous with a left bundle branch block. No cardiac catheterization is indicated at this time. -Continue Nitropaste -Appreciate cardiology consult - Consideration should be made to place her on a long-acting nitrate upon discharge - Continue plavix and discontinue aspirin due to risk of bleeding on triple therapy as above, continue rosuvastatin. - Not on ACEi or BB secondary to history of ESRD and hypotension Paroxysmal atrial fibrillation-in normal sinus rhythm here - continue amiodarone -Starting anticoagulation as above ESRD on dialysis-stable. Left Arm pain may indicate steal syndrome as per Nephro - consult nephrology appreciated -Continue hemodialysis here Sunday -Renally dose all medications -Vascular consulted by Nephro for AV fistulogram for Sunday and may need procedure to fix this if is showing sign of steal -continue binders, multivitamin [id number] recurrent episodes of hypoglycemia upon admission, hemoglobin A1c 5.4% here which is normal. Improved glucose now -Discontinue home NPH - BSG ACHS -Consideration should be made permanently discontinue her insulin upon discharge Code - DNR Disposition To home in 2-3 days versus PT/OT evaluation for rehabilitation stay
[2017-01-15] VITALS (26 sets, daily range): BP systolic 98–155; BP diastolic 41–89; PULSE 68–96; TEMP 36.4–36.9; O2SAT 96–100
[2017-01-15] MEDS: NITROGLYCERIN OINT 2% 1GM PACKET EXT SCH ×4 (01:41→19:21)
[2017-01-15] MEDS: ALBUTEROL 0.083% NEBU SOLN 3 ML VIAL INH SCH ×6 (03:02→23:25)
[2017-01-15] MEDS: BOOST BREEZE NUTRITION DRINK 1 BOX PO SCH ×2 (07:30→16:31)
[2017-01-15] MEDS: SEVELAMER HYDROCH 800 MG TAB PO SCH ×3 (07:30→17:08)
[2017-01-15 07:39] LABS: HEMATOCRIT 29.5 % (37-47); MEAN CELL VOLUME 98.7 fL (80-100); MEAN CORPUSCULAR HEMOGLOBIN 31.8 pg (25-34); MEAN CORPUSCULAR HGB CONC 32.2 g/dl (32-36); MEAN PLATELET VOLUME 9.4 fL (7.4-10.4); PLATELET COUNT 189 K/uL (130-400); RED BLOOD COUNT 2.99 M/uL (4.2-5.4); WHITE BLOOD COUNT 7.44 K/uL (4.8-10.8)
[2017-01-15 07:47] LABS: INR 1.1 (0.9-1.1); PARTIAL THROMBOPLASTIN RATIO 1.5; PROTHROMBIN TIME (PATIENT) 11.3 SECONDS (9.0-12.0)
[2017-01-15] MEDS: INSULIN ASPART 100 UNITS/ML 3 ML PEN SC SCH ×4 (07:48→20:53)
[2017-01-15 08:14] LABS: BUN/CREATININE RATIO 7.6 (10-20); CREATININE 4.2 mg/dl (0.60-1.20); MAGNESIUM 2.5 mg/dl (1.8-2.4)
[2017-01-15 09:02] LABS: BASO ABS # 0.13 K/uL (0-0.2); BASOPHIL % 1.8 %; COMPLETE YES; EOSINOPHIL % 5.3 %; LYMPH ABS # 0.92 K/uL (1.2-3.4); LYMPHOCYTE % 12.3 %; META ABS # 0.07 K/uL (0-0); METAMYELOCYTE % 0.9 %; NEUTROPHILS % 70.9 %; POLYCHROMASIA 1+
[2017-01-15 09:16] LABS: CALCIUM 9.3 mg/dl (8.5-10.1)
[2017-01-15] MEDS ORDERED: HEPARIN IV BOLUS 4,500 UNIT in SYRINGE 0 ML IV SCH (10:15)
[2017-01-15] MEDS: ACETAMINOPHEN 325 MG TAB PO PRN ×3 (10:19→22:32)
[2017-01-15] MEDS: HEPARIN 25,000 UNIT/500ML D5W 500 ML IV PRN ×2 (10:20→22:50)
--- NOTE | 2017-01-15 11:44 | Dialysis Progress Note ---
Hemodialysis Note Date of Service January 15, 2017. Chief Complaint Follow-up for end-stage renal disease on hemodialysis. Subjective Erina seen and examined during dialysis this morning. 15 minutes into dialysis treatment fistula infiltrated and developed a small hematoma however currently dialysis going otherwise well. She has been complaining of some pain in her for arm since she was started on dialysis. Schedule for fistulogram this afternoon. Review of Systems A complete review of systems was performed. Pertinent positives are noted above. All other systems are negative. Vital Signs Last 8 Hrs Date Time Temp Pulse Resp B/P Pulse Ox O2 Delivery O2 Flow Rate FiO2 01/15/17 09:15 72 128/54 01/15/17 09:00 73 125/51 01/15/17 08:45 73 98/44 01/15/17 08:30 75 142/63 01/15/17 08:21 71 125/56 01/15/17 08:02 36.5 73 20 125/67 96 Nasal Cannula 2.0 01/15/17 08:00 36.5 96 122/49 01/15/17 07:45 Nasal Cannula 2.0 01/15/17 07:21 77 18 96 Nasal Cannula 2.0 01/15/17 04:09 36.4 78 19 146/55 98 Nasal Cannula 2.0 01/15/17 04:00 Nasal Cannula 2.0 I & O 24-Hour Column 01/15/17 08:00 Intake Total 908 ml Output Total 350 ml Balance 558 ml Last Recorded Weight Weight (Kilograms): 75.500 Physical Exam GENERAL: Elderly female, AAA x 3, pleasant, healthy-appearing, not in any distress. NECK: Supple, no JVD. RESPIRATORY: Normal breathing efforts, no accessory muscle use, clear to auscultation bilaterally, no wheezes or rales. CARDIOVASCULAR: S1, S2 normal, rate rhythm regular. EXTREMITY: 1+ bilateral lower extremity edema. left arm AV fistula with thrill and bruit, small hematoma at AV fistula site. NEURO: speech fluent. PSYCHIATRY: Normal mood and judgment Family History Mother - CKD Social History Smoking Status: Never smoker Drug Use: none Marital Status: Housing Status: lives with family Occupation: retired . Retired. Never a smoker. Laboratory Results Past 24 Hours 01/15/17 07:23 Red Blood Count 2.99, Mean Corpuscular Volume 98.7, Mean Corpuscular Hemoglobin 31.8, Mean Corpuscular Hemoglobin Concent 32.2, Mean Platelet Volume 9.4 01/15/17 07:23 Test 01/14/17 11:29 01/14/17 16:39 01/14/17 20:12 01/15/17 06:33 Bedside Glucose 145 mg/dl (70-90) 172 mg/dl (70-90) 169 mg/dl (70-90) 139 mg/dl (70-90) Test 01/15/17 07:23 White Blood Count 7.44 K/uL (4.8-10.8) Red Blood Count 2.99 M/uL (4.2-5.4) Hemoglobin 9.5 g/dL (12.0-16.0) Hematocrit 29.5 % (37-47) Mean Corpuscular Volume 98.7 fL (80-100) Mean Corpuscular Hemoglobin 31.8 pg (25-34) Mean Corpuscular Hemoglobin Concent 32.2 g/dl (32-36) Platelet Count 189 K/uL (130-400) Mean Platelet Volume 9.4 fL (7.4-10.4) RDW Standard Deviation 55.1 fL (36.4-46.3) RDW Coefficient of Variation 15.6 % (11.5-14.5) Neutrophils % (Manual) 70.9 % Lymphocytes % (Manual) 12.3 % Monocytes % (Manual) 8.8 % Eosinophils % (Manual) 5.3 % Basophils % (Manual) 1.8 % Metamyelocytes % 0.9 % Neutrophils # (Manual) 5.27 K/uL (1.4-6.5) Total Absolute Neutrophils 5.27 K/uL (1.4-6.5) Lymphocytes # (Manual) 0.92 K/uL (1.2-3.4) Total Absolute Lymphocytes 0.92 K/uL (1.2-3.4) Monocytes # (Manual) 0.65 K/uL (0.11-0.59) Eosinophils # (Manual) 0.39 K/uL (0-0.5) Basophils # (Manual) 0.13 K/uL (0-0.2) Metamyelocytes # 0.07 K/uL (0-0) Polychromasia 1+ Prothrombin Time 11.3 SECONDS (9.0-12.0) Prothromb Time International Ratio 1.1 (0.9-1.1) Activated Partial Thromboplast Time 39.2 SECONDS (21.0-31.0) Partial Thromboplastin Ratio 1.5 Anion Gap 11.0 mmol/L (3-11) Est Creatinine Clear Calc Drug Dose 10.2 ml/min Estimated GFR () 10.5 Estimated GFR (Non- 9.1 BUN/Creatinine Ratio 7.6 (10-20) Calcium Level 9.3 mg/dl (8.5-10.1) Magnesium Level 2.5 mg/dl (1.8-2.4) Allergies Coded Allergies: No Known Allergies (Unverified , 01/11/17) Medications Current Inpatient Medications Medications (Trade) Dose Ordered Sig/Janeth Route Start Time Stop Time Status Last Admin Dose Admin Allopurinol (Zyloprim Tab) 50 mg QAM PO 01/11/17 09:00 02/10/17 08:59 01/14/17 07:40 50 MG Amiodarone HCl (Cordarone Tab) 200 mg QAM PO 01/11/17 09:00 02/10/17 08:59 01/14/17 07:41 200 MG Clopidogrel Bisulfate (plAVix TAB) 75 mg HS PO 01/11/17 21:00 02/10/17 20:59 01/14/17 19:11 75 MG Hydrocodone Bit/ Homatropine Methylb (Hycodan Syrup) 0.2 ml Q4 PRN PO 01/11/17 03:15 01/25/17 03:14 Multivitamins (Multivitamin Tab) 2 tab QAM PO 01/11/17 09:00 02/10/17 08:59 01/14/17 07:40 2 TAB Pantoprazole Sodium (Protonix Tab) 40 mg QAM PO 01/11/17 09:00 02/10/17 08:59 01/14/17 07:41 40 MG Rosuvastatin Calcium (Crestor Tab) 10 mg HS PO 01/11/17 21:00 02/10/17 20:59 01/14/17 19:11 10 MG Senna/Docusate Sodium (Senokot S Tab) 1 tab BID PO 01/11/17 09:00 02/10/17 08:59 01/14/17 19:11 1 TAB Sevelamer HCl (Renagel Tab) 800 mg TIDM PO 01/11/17 07:30 02/10/17 07:29 01/14/17 17:21 800 MG Insulin Aspart (novoLOG ASPART) SLIDING SCALE If C... ACHS SC 01/11/17 16:15 02/11/17 16:14 Glucose (Glucose 40% Gel) 15-30 GRAMS 15 GRAMS... UD PRN PO 01/11/17 12:45 02/10/17 12:44 Glucose (Glucose Chew Tab) 4-8 Tablets 4 Tabl... UD PRN PO 01/11/17 12:45 02/10/17 12:44 Dextrose (Dextrose 50% 50ML Syringe) 25-50ML OF 50% DW IV FOR... UD PRN IV 01/11/17 12:45 02/10/17 12:44 01/11/17 15:05 25 ML Glucagon (Glucagon Inj) 1 mg UD PRN SQ 01/11/17 12:45 02/10/17 12:44 Nitroglycerin (Nitroglycerin 2% Oint) 0.5 inch Q6H EXT 01/11/17 14:00 02/10/17 12:44 01/15/17 01:41 0.5 INCH Ioversol 100 ml 100 ml UD PRN IV 01/11/17 13:00 01/15/17 12:59 Heparin Sodium/ Dextrose (Heparin 25,000 Unit/500ml D5W) 500 ml @ 17 mls/hr Q24H PRN IV 01/12/17 13:00 02/11/17 12:59 01/14/17 22:01 17 MLS/HR Albuterol Sulfate (Ventolin 0.083% 2.5MG/3ML Neb) 2.5 mg Q4R INH 01/12/17 16:00 02/11/17 15:59 01/15/17 07:21 2.5 MG Enteral Nutritional Formula (Boost Breeze Nutritional Drink) 1 box BIDM PO 01/12/17 16:45 02/11/17 16:44 01/14/17 07:40 1 BOX Ondansetron HCl (Zofran Inj) 4 mg Q8H PRN IV 01/12/17 18:00 02/11/17 17:59 01/12/17 19:29 4 MG Acetaminophen (Tylenol Tab) 650 mg Q6H PRN PO 01/14/17 01:15 02/13/17 01:14 01/14/17 01:20 650 MG Polyethylene (Miralax Powder Packet) 17 gm BID PO 01/14/17 21:00 02/13/17 20:59 01/14/17 19:11 17 GM Impression (1) DVT (deep venous thrombosis) (2) Pulmonary embolism (3) ESRD (end stage renal disease) on dialysis (4) Hypertension (5) Diabetes (6) Anemia Patient admitted for evaluation of dyspnea, LLE DVT and probable PE. She has ASCVD and has been on ASA & Plavix chronically as an outpatient. She has required transfusion w/ 4 U PRBC 09/19 due to LGI bleeding. PMH - ESRD on HD MWF at [facility] (HD Rx: 4 hr 2K 2Ca F-160 EDW 74 kg Heparin 2000 bolus / 1000 hourly), ASCVD s/p CABG x 4 1996, cardiac cath 2006 complicated by pseudoaneurysm of the right femoral artery requiring emergency surgical repair, AODM, HTN, PVD w/ carotid stenosis, h/o nephrolithiasis, cholelithiasis, OA, LGI bleeding 09/19 requiring transfusion w/ 4 U PRBC Recommendations --currently getting dialysis as per her regular schedule, tolerating well. --Continue on Nephrocaps daily, phosphate binder with meal and RANJAN during dialysis --scheduled for fistulogram this afternoon to evaluate for form possible steal syndrome in left upper extremity with AV fistula Will follow
[2017-01-15] MEDS: POLYETHYLENE (MIRALAX) 17 GM PACK PO SCH ×2 (13:22→19:22)
[2017-01-15] MEDS: ALLOPURINOL 100 MG TAB PO SCH (13:23)
[2017-01-15] MEDS: PANTOprazole SOD 40 MG TAB PO SCH (13:24)
[2017-01-15] MEDS: AMIODARONE 200 MG TAB PO SCH (13:25)
[2017-01-15] MEDS: MULTIVITAMIN TAB PO SCH (13:25)
[2017-01-15] MEDS: DOCUSATE SODIUM/SENNA 50/8.6MG TAB PO SCH ×2 (13:26→19:21)
--- NOTE | 2017-01-15 16:32 | DIAGNOSTIC IMAGING REPORT ---
LEFT UPPER EXTREMITY ARTERIAL DOPPLER STUDY, DUPLEX HEMODIALYSIS ACCESS STUDY CLINICAL HISTORY: steal syndrome left hand COMPARISON STUDY: None. FINDINGS: There is a complex fluid within the mid left upper arm measuring 5.9 x 3.6 x 4.6 cm. This likely represents a hematoma. No thrombus identified within the fistula. Best seen on image 23 of 24 of the hemodialysis study there is smooth focal narrowing within the venous component of the AV fistula measuring a maximal diameter of 2 mm. Normal to elevated velocities seen within the arterial structures of the upper arm. However, there are monophasic low velocity waveforms seen within the radial and ulnar arteries measuring approximately 30 cm/s. IMPRESSION: 1. Low velocity monophasic waveform seen within the radial and ulnar arteries suggesting a steal syndrome. 2. No thrombus identified within the AV fistula. 3. Focal area of smooth narrowing within the venous component of the AV fistula within the mid upper arm measuring a maximal diameter of 2 mm . This suggests chronic scarring. 4. A 5.0 x 3.6 x 4.6 cm hematoma within the left upper arm. Electronically signed by: Trell Cannon M.D. 01/15/2017 4:30 PM Dictated Date/Time: 01/15/2017 4:20 PM
[2017-01-15 17:32] LABS: PARTIAL THROMBOPLASTIN RATIO 2.6
[2017-01-15] MEDS ORDERED: MoRPHine SULFATE 2 MG/ML CARP IV STA (17:44)
--- NOTE | 2017-01-15 18:43 | Family Medicine Progress Note ---
Progress Note Date of Service January 15, 2017. Subjective Pt evaluation today including: conversation w/ patient, physical exam, chart review, lab review Pain: 0/10 Voiding: no voiding problems Doing well after fistulagram, some pain in the left UE however denies any numbness/ weakness denies chest pain, SOB or LE pain Constitutional: No fever Eyes: No worsening of vision ENT: No hearing loss Respiratory: No cough, No dyspnea on exertion, No shortness of breath, No sputum, No wheezing Cardiovascular: No chest pain Abdomen: No constipation, No diarrhea, No nausea, No pain, No vomiting Musculoskeletal: + problem reported (left upper extremity pain), No joint pain, No muscle pain Neurologic: + weakness, No balance problems Endo: + fatigue Skin: + problem reported (bruising) Medications Medications Administered Medications (Trade) Dose Ordered Sig/Janeth Route Start Time Stop Time Status Last Admin Dose Admin Allopurinol (Zyloprim Tab) 50 mg QAM PO 01/11/17 09:00 02/10/17 08:59 01/15/17 13:23 50 MG Amiodarone HCl (Cordarone Tab) 200 mg QAM PO 01/11/17 09:00 02/10/17 08:59 01/15/17 13:25 200 MG Aspirin (Ecotrin Tab) 81 mg HS PO 01/11/17 21:00 01/12/17 09:49 DC 01/11/17 20:23 81 MG Clopidogrel Bisulfate (plAVix TAB) 75 mg HS PO 01/11/17 21:00 02/10/17 20:59 01/14/17 19:11 75 MG Insulin Human NPH (novoLIN-N NPH) 10 units QAM SQ 01/11/17 09:00 01/11/17 12:53 DC 01/11/17 08:22 10 UNITS Multivitamins (Multivitamin Tab) 2 tab QAM PO 01/11/17 09:00 02/10/17 08:59 01/15/17 13:25 2 TAB Pantoprazole Sodium (Protonix Tab) 40 mg QAM PO 01/11/17 09:00 02/10/17 08:59 01/15/17 13:24 40 MG Rosuvastatin Calcium (Crestor Tab) 10 mg HS PO 01/11/17 21:00 02/10/17 20:59 01/14/17 19:11 10 MG Senna/Docusate Sodium (Senokot S Tab) 1 tab BID PO 01/11/17 09:00 02/10/17 08:59 01/15/17 13:26 1 TAB Sevelamer HCl (Renagel Tab) 800 mg TIDM PO 01/11/17 07:30 02/10/17 07:29 01/15/17 13:24 800 MG Dextrose (Dextrose 50% 50ML Syringe) 25-50ML OF 50% DW IV FOR... UD PRN IV 01/11/17 04:15 01/11/17 12:53 DC 01/11/17 11:52 25 ML Heparin Sodium (Porcine) 1 ea 1 ea TODAY@0600 N/A 01/12/17 06:00 01/12/17 18:00 DC 01/12/17 05:42 1 EA Epoetin Joshua/ Syringe (Procrit Inj/ Syringe) 0.4 ml @ 1 mls/min TODAY@0600 IV. 01/12/17 06:00 01/12/17 18:00 DC 01/12/17 15:50 1 MLS/MIN Nitroglycerin (Nitrostat Tab) 0.4 mg STK-MED ONCE .ROUTE 01/11/17 11:49 01/11/17 11:50 DC 01/11/17 11:51 0.4 MG Miscellaneous Information (Dc All Previously Ordered Diabetes Meds) 1 ea TODAY@1300 ONCE N/A 01/11/17 13:00 01/11/17 13:01 DC 01/11/17 17:28 1 EA Dextrose (Dextrose 50% 50ML Syringe) 25-50ML OF 50% DW IV FOR... UD PRN IV 01/11/17 12:45 02/10/17 12:44 01/11/17 15:05 25 ML Nitroglycerin 0.5 inch 0.5 inch Q6H EXT 01/11/17 14:00 02/10/17 12:44 01/15/17 13:28 0.5 INCH Dextrose (D5W 1000ml) 1,000 ml @ 50 mls/hr Q20H IV 01/11/17 15:45 01/12/17 15:12 DC 01/12/17 11:47 50 MLS/HR Enteral Nutritional Formula 1 can 1 can TID PO 01/11/17 17:30 01/12/17 14:51 DC 01/11/17 20:20 1 CAN Heparin Sodium/ Dextrose (Heparin 25,000 Unit/500ml D5W) 500 ml @ 20 mls/hr Q24H PRN IV 01/12/17 13:00 02/11/17 12:59 01/15/17 10:20 20 MLS/HR Paricalcitol (Zemplar Inj) 3 mcg 1030 ONCE IV. 01/12/17 10:30 01/12/17 10:31 DC 01/12/17 15:51 3 MCG Albuterol Sulfate (Ventolin 0.083% 2.5MG/3ML Neb) 2.5 mg Q4R INH 01/12/17 16:00 02/11/17 15:59 01/15/17 07:21 2.5 MG Enteral Nutritional Formula (Boost Breeze Nutritional Drink) 1 box BIDM PO 01/12/17 16:45 02/11/17 16:44 01/14/17 07:40 1 BOX Ondansetron HCl 4 mg 4 mg Q8H PRN IV 01/12/17 18:00 02/11/17 17:59 01/12/17 19:29 4 MG Heparin Sodium (Porcine) 4500 unit/Syringe 4.5 ml @ 10 mls/min TODAY@0000 ONCE IV 01/13/17 00:00 01/13/17 00:01 DC 01/13/17 00:19 10 MLS/MIN Heparin Sodium (Porcine)/Syringe (Heparin Iv Bolus/Syringe) 3 ml @ 10 mls/min NOW ONCE IV 01/13/17 15:15 01/13/17 15:16 DC 01/13/17 17:02 10 MLS/MIN Acetaminophen (Tylenol Tab) 650 mg Q6H PRN PO 01/14/17 01:15 02/13/17 01:14 01/15/17 10:19 650 MG Potassium Chloride (Klor-Con M10) 20 meq NOW ONCE PO 01/14/17 09:45 01/14/17 09:46 DC 01/14/17 10:30 20 MEQ Polyethylene (Miralax Powder Packet) 17 gm BID PO 01/14/17 21:00 02/13/17 20:59 01/15/17 13:22 17 GM Polyethylene 17 gm 17 gm NOW ONCE PO 01/14/17 10:00 01/14/17 10:01 DC 01/14/17 10:33 17 GM Heparin Sodium (Porcine)/Syringe (Heparin Iv Bolus/Syringe) 4.5 ml @ 10 mls/min TODAY@1015 IV 01/15/17 10:15 01/15/17 11:30 DC 01/15/17 11:04 10 MLS/MIN Objective Vital Signs Date Time Temp Pulse Resp B/P Pulse Ox O2 Delivery O2 Flow Rate FiO2 01/15/17 13:15 36.6 75 18 129/52 100 Nasal Cannula 2.0 01/15/17 12:48 36.6 68 126/51 01/15/17 12:15 71 143/89 01/15/17 12:00 69 138/52 01/15/17 11:45 71 134/54 01/15/17 11:30 70 142/60 01/15/17 11:15 71 127/51 01/15/17 11:00 72 135/56 01/15/17 11:00 Nasal Cannula 2.0 01/15/17 10:45 70 150/59 01/15/17 10:30 74 147/59 01/15/17 10:15 75 134/56 01/15/17 10:00 74 155/60 01/15/17 09:45 73 142/57 01/15/17 09:30 73 133/52 01/15/17 09:15 72 128/54 01/15/17 09:00 73 125/51 01/15/17 08:45 73 98/44 01/15/17 08:30 75 142/63 01/15/17 08:21 71 125/56 01/15/17 08:02 36.5 73 20 125/67 96 Nasal Cannula 2.0 01/15/17 08:00 36.5 96 122/49 01/15/17 07:45 Nasal Cannula 2.0 01/15/17 07:21 77 18 96 Nasal Cannula 2.0 01/15/17 04:09 36.4 78 19 146/55 98 Nasal Cannula 2.0 01/15/17 04:00 Nasal Cannula 2.0 01/14/17 23:59 Nasal Cannula 2.0 01/14/17 23:28 36.8 74 18 114/62 94 Nasal Cannula 2.0 01/14/17 23:22 72 18 96 Nasal Cannula 2.0 01/14/17 20:00 Nasal Cannula 2.0 01/14/17 19:24 67 16 97 Nasal Cannula 2.0 01/14/17 19:19 36.6 68 20 134/73 98 Nasal Cannula 2.0 01/14/17 16:23 36.4 69 22 139/66 95 Nasal Cannula 2.0 01/14/17 16:00 Nasal Cannula 2.0 01/14/17 15:30 68 16 96 Nasal Cannula 2.0 Physical Exam General Appearance: no apparent distress Eyes: normal inspection ENT: normal ENT inspection Neck: supple Respiratory/Chest: normal breath sounds, no respiratory distress, no accessory muscle use Cardiovascular: regular rate, rhythm, no murmur Abdomen: normal bowel sounds, non tender, soft Extremities: non-tender, normal inspection Neurologic/Psychiatric: alert, normal mood/affect, oriented x 3 Skin: normal color, no rash, + pertinent finding (ecchymosis on UE) Lymphatic: no adenopathy Laboratory Results Results Past 24 Hours Test 01/14/17 20:12 01/15/17 06:33 01/15/17 07:23 01/15/17 13:23 Range/Units Bedside Glucose 169 139 129 70-90 mg/dl White Blood Count 7.44 4.8-10.8 K/uL Red Blood Count 2.99 4.2-5.4 M/uL Hemoglobin 9.5 12.0-16.0 g/dL Hematocrit 29.5 37-47 % Mean Corpuscular Volume 98.7 80-100 fL Mean Corpuscular Hemoglobin 31.8 25-34 pg Mean Corpuscular Hemoglobin Concent 32.2 32-36 g/dl Platelet Count 189 130-400 K/uL Mean Platelet Volume 9.4 7.4-10.4 fL RDW Standard Deviation 55.1 36.4-46.3 fL RDW Coefficient of Variation 15.6 11.5-14.5 % Neutrophils % (Manual) 70.9 % Lymphocytes % (Manual) 12.3 % Monocytes % (Manual) 8.8 % Eosinophils % (Manual) 5.3 % Basophils % (Manual) 1.8 % Metamyelocytes % 0.9 % Neutrophils # (Manual) 5.27 1.4-6.5 K/uL Total Absolute Neutrophils 5.27 1.4-6.5 K/uL Lymphocytes # (Manual) 0.92 1.2-3.4 K/uL Total Absolute Lymphocytes 0.92 1.2-3.4 K/uL Monocytes # (Manual) 0.65 0.11-0.59 K/uL Eosinophils # (Manual) 0.39 0-0.5 K/uL Basophils # (Manual) 0.13 0-0.2 K/uL Metamyelocytes # 0.07 0-0 K/uL Polychromasia 1+ Prothrombin Time 11.3 9.0-12.0 SECONDS Prothromb Time International Ratio 1.1 0.9-1.1 Activated Partial Thromboplast Time 39.2 21.0-31.0 SECONDS Partial Thromboplastin Ratio 1.5 Sodium Level 131 136-145 mmol/L Potassium Level 4.0 3.5-5.1 mmol/L Chloride Level 95 98-107 mmol/L Carbon Dioxide Level 25 21-32 mmol/L Anion Gap 11.0 3-11 mmol/L Blood Urea Nitrogen 32 7-18 mg/dl Creatinine 4.20 0.60-1.20 mg/dl Est Creatinine Clear Calc Drug Dose 10.2 ml/min Estimated GFR () 10.5 Estimated GFR (Non- 9.1 BUN/Creatinine Ratio 7.6 10-20 Random Glucose 124 70-99 mg/dl Calcium Level 9.3 8.5-10.1 mg/dl Magnesium Level 2.5 1.8-2.4 mg/dl Test 01/15/17 17:05 Range/Units Activated Partial Thromboplast Time 68.1 21.0-31.0 SECONDS Partial Thromboplastin Ratio 2.6 Assessment and Plan 86 year old female with multiple co-morbidities presents with chest pain with acute DVT left leg. DVT-Acute, POA, Anemia of CKD, h/o GI bleeding -continue heparin drip now that her tunneled IJ catheter has been removed -Start Coumadin if no evidence of GI bleeding tomorrow as fistulogram complete -Would favor keeping her here with heparin as a bridge for close observation given recent GI bleed -Discussed with cardiology Dr. Hernandez and will permanently discontinue her aspirin to avoid triple therapy-we'll continue Plavix and Coumadin only -RANJAN to be given with HD Chest pain/Coronary artery disease / LVEF approximately 50% / Moderate aortic stenosis / Moderate mitral regurgitation/demand ischemia Echo: There is mild concentric left ventricular hypertrophy. * Left ventricular systolic function is low normal. * There are regional wall motion abnormalities as specified. * The left atrium is severely dilated. * The right atrium is mildly dilated. * Moderate valvular aortic stenosis. * There is moderate mitral regurgitation. * Compared to a study from 06/2016, the trans-aortic velocities are slightly higher. Otherwise minimal change -Continue Nitropaste -Appreciate cardiology consult - Continue plavix and discontinue aspirin due to risk of bleeding on triple therapy as above, continue rosuvastatin. Paroxysmal atrial fibrillation - continue amiodarone -Starting anticoagulation as above ESRD on dialysis-stable. Left Arm pain may indicate steal syndrome as per Nephro - consult nephrology appreciated -Continue hemodialysis here Sunday -Renally dose all medications -Vascular consulted by Nephro for AV fistulogram today -continue binders, multivitamin [id number] recurrent episodes of hypoglycemia upon admission, hemoglobin A1c 5.4% here which is normal. Improved glucose now -Discontinue home NPH - BSG ACHS -Consideration should be made permanently discontinue her insulin upon discharge Code - DNR Disposition To home in 2-3 days versus PT/OT evaluation for rehabilitation stay Resident Physician Supervision Note: I interviewed and examined the patient. Discussed with Dr. Ellis and agree with findings and plan as documented in the note. Any exceptions or clarifications are listed here: None Documented By: Markos Sena arm hurting some after fistulagram but feeling better than it was no other current problems. ros otherwise negative except for as above vitals noted nad breathing unlabored DVT / GI bleed - heparin for now - once OK w vascular and nephrology transition to coumadin appearing stable, otherwise as above Continued [facility] stay due to: other Discharge planning: uncertain
[2017-01-15] MEDS: ROSUVASTATIN CALCIUM 10 MG TAB PO SCH (19:21)
[2017-01-15] MEDS: CLOPIDOGREL BISULFATE 75 MG TAB PO SCH (19:21)
[2017-01-16] VITALS (14 sets, daily range): BP systolic 96–156; BP diastolic 51–79; PULSE 66–82; TEMP 36.4–36.9; O2SAT 92–100
[2017-01-16] MEDS: NITROGLYCERIN OINT 2% 1GM PACKET EXT SCH ×4 (02:00→20:48)
[2017-01-16] MEDS: ALBUTEROL 0.083% NEBU SOLN 3 ML VIAL INH SCH ×5 (03:44→19:51)
[2017-01-16] MEDS: INSULIN ASPART 100 UNITS/ML 3 ML PEN SC SCH ×4 (07:00→20:50)
[2017-01-16 07:01] LABS: HEMATOCRIT 29.2 % (37-47); MEAN CELL VOLUME 100.3 fL (80-100); MEAN CORPUSCULAR HEMOGLOBIN 31.6 pg (25-34); MEAN CORPUSCULAR HGB CONC 31.5 g/dl (32-36); MEAN PLATELET VOLUME 9.7 fL (7.4-10.4); PLATELET COUNT 179 K/uL (130-400); RED BLOOD COUNT 2.91 M/uL (4.2-5.4); WHITE BLOOD COUNT 7.73 K/uL (4.8-10.8)
[2017-01-16 07:17] LABS: INR 1.1 (0.9-1.1); PARTIAL THROMBOPLASTIN RATIO 2.2; PROTHROMBIN TIME (PATIENT) 11.6 SECONDS (9.0-12.0)
[2017-01-16 07:42] LABS: BUN/CREATININE RATIO 4.7 (10-20); CALCIUM 8.9 mg/dl (8.5-10.1); CREATININE 3.1 mg/dl (0.60-1.20); POTASSIUM 4.1 mmol/L (3.5-5.1)
[2017-01-16] MEDS: PANTOprazole SOD 40 MG TAB PO SCH (08:41)
[2017-01-16] MEDS: DOCUSATE SODIUM/SENNA 50/8.6MG TAB PO SCH ×2 (08:41→20:48)
[2017-01-16] MEDS: SEVELAMER HYDROCH 800 MG TAB PO SCH ×3 (08:42→16:54)
[2017-01-16] MEDS: ALLOPURINOL 100 MG TAB PO SCH (08:42)
[2017-01-16] MEDS: AMIODARONE 200 MG TAB PO SCH (08:42)
[2017-01-16] MEDS: MULTIVITAMIN TAB PO SCH (08:43)
[2017-01-16] MEDS: POLYETHYLENE (MIRALAX) 17 GM PACK PO SCH ×2 (08:43→20:41)
[2017-01-16] MEDS: BOOST BREEZE NUTRITION DRINK 1 BOX PO SCH ×2 (08:44→16:37)
[2017-01-16] MEDS: ACETAMINOPHEN 325 MG TAB PO PRN (08:54)
--- NOTE | 2017-01-16 09:43 | CARDIOLOGY PROGRESS NOTE ---
DATE: 01/16/2017 SUBJECTIVE: Mrs. Rahman is resting comfortably in bed without complaints of chest pain or dyspnea. She does complain of left upper extremity discomfort. OBJECTIVE: VITAL SIGNS: Blood pressure 123/64 with regular pulse of 70. Respiratory rate is 18. The patient is afebrile at 37.0 degrees Celsius. Saturation is 98% on 2 liters nasal cannula. NECK: Supple with mildly delayed and prolonged carotid upstrokes. No obvious bruits or transmitted murmurs. CARDIOVASCULAR: Reveals a regular rhythm with a 2/6 crescendo-decrescendo systolic murmur heard loudest at the base. No S3. LUNGS: Clear without rales, rhonchi or wheezes. ABDOMEN: Obese without bruits. EXTREMITIES: Reveal intact distal pulses. There is significant swelling and hematoma in the left upper extremity. Trace pretibial edema noted. DATA: CBC notes hemoglobin 9.2, hematocrit 29.2, white count 7.7, platelet count 179,000. Electrolytes note sodium of 136, potassium 4.1, chloride 99, bicarb 31, BUN 15, creatinine 3.1, glucose 96. PTT is 57.0. personnel monitor is benign. IMPRESSION AND PLAN: 1. Coronary artery disease -- history coronary artery bypass graft x4 in 1996. Cardiac catheterization in 2006 revealed an occluded saphenous vein graft to the diagonal and occluded saphenous vein graft to the ramus. Other grafts were patent. She underwent deployment of right coronary artery stent at that time. 2. Moderate aortic stenosis. 3. Moderate mitral regurgitation. 4. Left lower extremity deep venous thrombosis -- remains on heparin. We will eventually transition to Coumadin once left upper extremity fistula issue is addressed. 5. Paroxysmal atrial fibrillation -- continue amiodarone. 6. Hypertension. 7. Hypercholesterolemia.
[2017-01-16] MEDS ORDERED: HYDROmorphone HCL 2 MG TAB PO SCH (10:15)
[2017-01-16] MEDS ORDERED: LIDOCAINE/PRILOCAINE 2.5% EA CRM EXT SCH (10:15)
--- NOTE | 2017-01-16 11:08 | Nephrology Progress Note ---
Nephrology Progress Note Date of Service January 16, 2017. Chief Complaint Follow-up for end-stage renal disease on hemodialysis. José Huang was seen and examined in her room this morning. She has been having significant pain in her left upper extremity at the hematoma site. denies any shortness of breath or chest pain. Had dialysis yesterday uneventful,currently BP and volume status stable. Hemoglobin stable, FOBT negative. She has been on heparin drip for acute DVT. Doppler with LUE steal syndrome. Review of Systems A complete review of systems was performed. Pertinent positives are noted above. All other systems are negative. Vital Signs Last 8 Hrs Date Time Temp Pulse Resp B/P Pulse Ox O2 Delivery O2 Flow Rate FiO2 01/16/17 07:56 36.5 73 22 123/64 98 Nasal Cannula 2.0 01/16/17 07:20 69 16 98 Nasal Cannula 2.0 01/16/17 04:00 Nasal Cannula 2.0 01/16/17 04:00 36.7 73 16 156/79 100 Nasal Cannula 3.0 I & O 24-Hour Column 01/16/17 07:59 Intake Total 730 ml Output Total 2259 ml Balance -1529 ml Last Recorded Weight Weight (Kilograms): 78.100 Physical Exam GENERAL: Elderly female, AAA x 3, pleasant, ill-appearing, not in any distress. NECK: Supple, no JVD. RESPIRATORY: Normal breathing efforts, no accessory muscle use, clear to auscultation bilaterally, no wheezes or rales. CARDIOVASCULAR: S1, S2 normal, rate rhythm regular. EXTREMITY: 1+ bilateral lower extremity edema. left arm AV fistula with thrill and bruit, small hematoma around. NEURO: speech fluent. PSYCHIATRY: Normal mood and judgment Family History Asthma Cancer SISTER (Breast cancer) Chronic kidney disease MOTHER Diabetes mellitus FATHER Heart disease FATHER Hypertension FATHER MOTHER Kidney disease Kidney stones Stroke Mother - CKD Social History Smoking Status: Never smoker Drug Use: none Marital Status: Housing Status: lives with family Occupation: retired . Retired. Never a smoker. Laboratory Results Past 24 Hours 01/16/17 06:35 01/16/17 06:35 Test 01/15/17 13:23 01/15/17 16:17 01/15/17 17:05 01/15/17 20:37 Bedside Glucose 129 mg/dl (70-90) 158 mg/dl (70-90) 131 mg/dl (70-90) Activated Partial Thromboplast Time 68.1 SECONDS (21.0-31.0) Partial Thromboplastin Ratio 2.6 Test 01/16/17 06:26 01/16/17 06:35 Bedside Glucose 100 mg/dl (70-90) Red Blood Count 2.91 M/uL (4.2-5.4) Mean Corpuscular Volume 100.3 fL (80-100) Mean Corpuscular Hemoglobin 31.6 pg (25-34) Mean Corpuscular Hemoglobin Concent 31.5 g/dl (32-36) RDW Standard Deviation 57.6 fL (36.4-46.3) RDW Coefficient of Variation 16.2 % (11.5-14.5) Mean Platelet Volume 9.7 fL (7.4-10.4) Prothrombin Time 11.6 SECONDS (9.0-12.0) Prothromb Time International Ratio 1.1 (0.9-1.1) Activated Partial Thromboplast Time 57.0 SECONDS (21.0-31.0) Partial Thromboplastin Ratio 2.2 Anion Gap 6.0 mmol/L (3-11) Est Creatinine Clear Calc Drug Dose 14.0 ml/min Estimated GFR () 15.1 Estimated GFR (Non- 13.1 BUN/Creatinine Ratio 4.7 (10-20) Calcium Level 8.9 mg/dl (8.5-10.1) Allergies Coded Allergies: No Known Allergies (Unverified , 01/11/17) Medications Current Inpatient Medications Medications (Trade) Dose Ordered Sig/Janeth Route Start Time Stop Time Status Last Admin Dose Admin Allopurinol (Zyloprim Tab) 50 mg QAM PO 01/11/17 09:00 02/10/17 08:59 01/16/17 08:42 50 MG Amiodarone HCl (Cordarone Tab) 200 mg QAM PO 01/11/17 09:00 02/10/17 08:59 01/16/17 08:42 200 MG Clopidogrel Bisulfate (plAVix TAB) 75 mg HS PO 01/11/17 21:00 02/10/17 20:59 01/15/17 19:21 75 MG Hydrocodone Bit/ Homatropine Methylb (Hycodan Syrup) 0.2 ml Q4 PRN PO 01/11/17 03:15 01/25/17 03:14 Multivitamins (Multivitamin Tab) 2 tab QAM PO 01/11/17 09:00 02/10/17 08:59 01/16/17 08:43 2 TAB Pantoprazole Sodium (Protonix Tab) 40 mg QAM PO 01/11/17 09:00 02/10/17 08:59 01/16/17 08:41 40 MG Rosuvastatin Calcium (Crestor Tab) 10 mg HS PO 01/11/17 21:00 02/10/17 20:59 01/15/17 19:21 10 MG Senna/Docusate Sodium (Senokot S Tab) 1 tab BID PO 01/11/17 09:00 02/10/17 08:59 01/16/17 08:41 1 TAB Sevelamer HCl (Renagel Tab) 800 mg TIDM PO 01/11/17 07:30 02/10/17 07:29 01/16/17 08:42 800 MG Insulin Aspart (novoLOG ASPART) SLIDING SCALE If C... ACHS SC 01/11/17 16:15 02/11/17 16:14 Glucose (Glucose 40% Gel) 15-30 GRAMS 15 GRAMS... UD PRN PO 01/11/17 12:45 02/10/17 12:44 Glucose (Glucose Chew Tab) 4-8 Tablets 4 Tabl... UD PRN PO 01/11/17 12:45 02/10/17 12:44 Dextrose (Dextrose 50% 50ML Syringe) 25-50ML OF 50% DW IV FOR... UD PRN IV 01/11/17 12:45 02/10/17 12:44 01/11/17 15:05 25 ML Glucagon (Glucagon Inj) 1 mg UD PRN SQ 01/11/17 12:45 02/10/17 12:44 Nitroglycerin 0.5 inch 0.5 inch Q6H EXT 01/11/17 14:00 02/10/17 12:44 01/16/17 08:44 0.5 INCH Heparin Sodium/ Dextrose (Heparin 25,000 Unit/500ml D5W) 500 ml @ 20 mls/hr Q24H PRN IV 01/12/17 13:00 02/11/17 12:59 01/15/17 22:50 20 MLS/HR Albuterol Sulfate (Ventolin 0.083% 2.5MG/3ML Neb) 2.5 mg Q4R INH 01/12/17 16:00 02/11/17 15:59 01/16/17 07:20 2.5 MG Enteral Nutritional Formula (Boost Breeze Nutritional Drink) 1 box BIDM PO 01/12/17 16:45 02/11/17 16:44 01/16/17 08:44 1 BOX Ondansetron HCl (Zofran Inj) 4 mg Q8H PRN IV 01/12/17 18:00 02/11/17 17:59 01/12/17 19:29 4 MG Acetaminophen (Tylenol Tab) 650 mg Q6H PRN PO 01/14/17 01:15 02/13/17 01:14 01/16/17 08:54 650 MG Polyethylene (Miralax Powder Packet) 17 gm BID PO 01/14/17 21:00 02/13/17 20:59 01/15/17 19:22 17 GM Impression (1) DVT (deep venous thrombosis) (2) Pulmonary embolism (3) ESRD (end stage renal disease) on dialysis (4) Hypertension (5) Diabetes (6) Anemia Patient admitted for evaluation of dyspnea, LLE DVT and probable PE. She has ASCVD and has been on ASA & Plavix chronically as an outpatient. She has required transfusion w/ 4 U PRBC 09/19 due to LGI bleeding. PMH - ESRD on HD MWF at [facility] (HD Rx: 4 hr 2K 2Ca F-160 EDW 74 kg Heparin 2000 bolus / 1000 hourly), ASCVD s/p CABG x 4 1996, cardiac cath 2006 complicated by pseudoaneurysm of the right femoral artery requiring emergency surgical repair, AODM, HTN, PVD w/ carotid stenosis, h/o nephrolithiasis, cholelithiasis, OA, LGI bleeding 09/19 requiring transfusion w/ 4 U PRBC Recommendations --Had HD yesterday, currently BP, volume status and electrolyte acceptable --Continue on Nephrocaps daily, phosphate binder with meal and RANJAN during dialysis --Avoid morphine, will start on Dilaudid every 4 hours as needed for pain, use Emla cream at the AV fistula site before dialysis --plan for possible fistulogram for steal syndrome in left upper extremity with AV fistula --on heparin for LLE DVT, waiting on Coumadin until decision about fistulogram. Will follow
--- NOTE | 2017-01-16 15:29 | DIAGNOSTIC IMAGING REPORT ---
Venous mapping of the legs VENOUS LW EXT MAPPING BILAT CLINICAL HISTORY: steal syndrome left arm preoperative evaluation TECHNIQUE: Venous Doppler COMPARISON STUDY: 01/11/2017 FINDINGS: Venous Doppler evaluation of the right as well as leg was performed for the purposes of venous mapping. Venous diameters are as noted in the attached worksheet. Thrombus formation within the right as well as left leg is diminished. Within the right leg thrombus persists within the lesser saphenous vein. On the left leg, thrombus persists in the deep vessels of the left lower leg. IMPRESSION: 1. Venous mapping. 2. Residual venous thrombus within the deep vessels of the lower left leg, although this is improved on the left. 3. This is considered stable in the right, stable to slightly improved on the left. Electronically signed by: Raulito Acosta M.D. 01/16/2017 3:27 PM Dictated Date/Time: 01/16/2017 3:24 PM
--- NOTE | 2017-01-16 16:06 | Family Medicine Progress Note ---
Progress Note Date of Service January 16, 2017. Subjective Pt evaluation today including: conversation w/ patient, physical exam, chart review, lab review, review of studies, conversation w/ education consultant Pain: 2/ PO Intake: WNL Patient has ongoing left UE pain and swelling around the fistula site. Otherwise feeling well. A discussion was had with Dr Rocha regarding the patient's care. For now will hold off on coumadin until all evaluations completed by vascular surgery. Constitutional: No fever Eyes: No worsening of vision ENT: No hearing loss Respiratory: No cough, No dyspnea on exertion, No shortness of breath, No sputum, No wheezing Cardiovascular: No chest pain Abdomen: No constipation, No diarrhea, No nausea, No pain, No vomiting Musculoskeletal: + muscle pain (left UE), No joint pain Neurologic: No balance problems, No weakness Heme: + abnormal bleeding/bruising, + problem reported (ecchymosis) Endo: + fatigue Medications Medications Administered Medications (Trade) Dose Ordered Sig/Janeth Route Start Time Stop Time Status Last Admin Dose Admin Allopurinol (Zyloprim Tab) 50 mg QAM PO 01/11/17 09:00 02/10/17 08:59 01/16/17 08:42 50 MG Amiodarone HCl (Cordarone Tab) 200 mg QAM PO 01/11/17 09:00 02/10/17 08:59 01/16/17 08:42 200 MG Aspirin (Ecotrin Tab) 81 mg HS PO 01/11/17 21:00 01/12/17 09:49 DC 01/11/17 20:23 81 MG Clopidogrel Bisulfate (plAVix TAB) 75 mg HS PO 01/11/17 21:00 02/10/17 20:59 01/15/17 19:21 75 MG Insulin Human NPH (novoLIN-N NPH) 10 units QAM SQ 01/11/17 09:00 01/11/17 12:53 DC 01/11/17 08:22 10 UNITS Multivitamins (Multivitamin Tab) 2 tab QAM PO 01/11/17 09:00 02/10/17 08:59 01/16/17 08:43 2 TAB Pantoprazole Sodium (Protonix Tab) 40 mg QAM PO 01/11/17 09:00 02/10/17 08:59 01/16/17 08:41 40 MG Rosuvastatin Calcium (Crestor Tab) 10 mg HS PO 01/11/17 21:00 02/10/17 20:59 01/15/17 19:21 10 MG Senna/Docusate Sodium (Senokot S Tab) 1 tab BID PO 01/11/17 09:00 02/10/17 08:59 01/16/17 08:41 1 TAB Sevelamer HCl (Renagel Tab) 800 mg TIDM PO 01/11/17 07:30 02/10/17 07:29 01/16/17 12:03 800 MG Dextrose (Dextrose 50% 50ML Syringe) 25-50ML OF 50% DW IV FOR... UD PRN IV 01/11/17 04:15 01/11/17 12:53 DC 01/11/17 11:52 25 ML Heparin Sodium (Porcine) 1 ea 1 ea TODAY@0600 N/A 01/12/17 06:00 01/12/17 18:00 DC 01/12/17 05:42 1 EA Epoetin Joshua/ Syringe (Procrit Inj/ Syringe) 0.4 ml @ 1 mls/min TODAY@0600 IV. 01/12/17 06:00 01/12/17 18:00 DC 01/12/17 15:50 1 MLS/MIN Nitroglycerin (Nitrostat Tab) 0.4 mg STK-MED ONCE .ROUTE 01/11/17 11:49 01/11/17 11:50 DC 01/11/17 11:51 0.4 MG Miscellaneous Information (Dc All Previously Ordered Diabetes Meds) 1 ea TODAY@1300 ONCE N/A 01/11/17 13:00 01/11/17 13:01 DC 01/11/17 17:28 1 EA Dextrose (Dextrose 50% 50ML Syringe) 25-50ML OF 50% DW IV FOR... UD PRN IV 01/11/17 12:45 02/10/17 12:44 01/11/17 15:05 25 ML Nitroglycerin 0.5 inch 0.5 inch Q6H EXT 01/11/17 14:00 02/10/17 12:44 01/16/17 14:13 0.5 INCH Dextrose (D5W 1000ml) 1,000 ml @ 50 mls/hr Q20H IV 01/11/17 15:45 01/12/17 15:12 DC 01/12/17 11:47 50 MLS/HR Enteral Nutritional Formula 1 can 1 can TID PO 01/11/17 17:30 01/12/17 14:51 DC 01/11/17 20:20 1 CAN Heparin Sodium/ Dextrose (Heparin 25,000 Unit/500ml D5W) 500 ml @ 20 mls/hr Q24H PRN IV 01/12/17 13:00 02/11/17 12:59 01/15/17 22:50 20 MLS/HR Paricalcitol (Zemplar Inj) 3 mcg 1030 ONCE IV. 01/12/17 10:30 01/12/17 10:31 DC 01/12/17 15:51 3 MCG Albuterol Sulfate (Ventolin 0.083% 2.5MG/3ML Neb) 2.5 mg Q4R INH 01/12/17 16:00 02/11/17 15:59 01/16/17 11:45 2.5 MG Enteral Nutritional Formula (Boost Breeze Nutritional Drink) 1 box BIDM PO 01/12/17 16:45 02/11/17 16:44 01/16/17 08:44 1 BOX Ondansetron HCl 4 mg 4 mg Q8H PRN IV 01/12/17 18:00 02/11/17 17:59 01/12/17 19:29 4 MG Heparin Sodium (Porcine) 4500 unit/Syringe 4.5 ml @ 10 mls/min TODAY@0000 ONCE IV 01/13/17 00:00 01/13/17 00:01 DC 01/13/17 00:19 10 MLS/MIN Heparin Sodium (Porcine)/Syringe (Heparin Iv Bolus/Syringe) 3 ml @ 10 mls/min NOW ONCE IV 01/13/17 15:15 01/13/17 15:16 DC 01/13/17 17:02 10 MLS/MIN Acetaminophen (Tylenol Tab) 650 mg Q6H PRN PO 01/14/17 01:15 02/13/17 01:14 01/16/17 08:54 650 MG Potassium Chloride (Klor-Con M10) 20 meq NOW ONCE PO 01/14/17 09:45 01/14/17 09:46 DC 01/14/17 10:30 20 MEQ Polyethylene (Miralax Powder Packet) 17 gm BID PO 01/14/17 21:00 02/13/17 20:59 01/15/17 19:22 17 GM Polyethylene 17 gm 17 gm NOW ONCE PO 01/14/17 10:00 01/14/17 10:01 DC 01/14/17 10:33 17 GM Heparin Sodium (Porcine)/Syringe (Heparin Iv Bolus/Syringe) 4.5 ml @ 10 mls/min TODAY@1015 IV 01/15/17 10:15 01/15/17 11:30 DC 01/15/17 11:04 10 MLS/MIN Morphine Sulfate (MoRPHine SULFATE INJ) 2 mg NOW STAT IV 01/15/17 17:44 01/15/17 17:48 DC 01/15/17 18:17 2 MG Hydromorphone HCl (Dilaudid Tab) 2 mg TODAY@1015 PO 01/16/17 10:15 01/16/17 11:00 DC 01/16/17 10:23 2 MG Objective Vital Signs Date Time Temp Pulse Resp B/P Pulse Ox O2 Delivery O2 Flow Rate FiO2 01/16/17 15:53 36.5 69 18 118/54 92 Room Air 01/16/17 14:17 74 122/63 01/16/17 12:00 100 Nasal Cannula 2.0 01/16/17 11:09 36.9 66 18 110/65 100 2.0 01/16/17 08:00 98 Nasal Cannula 2.0 01/16/17 07:56 36.5 73 22 123/64 98 Nasal Cannula 2.0 01/16/17 07:20 69 16 98 Nasal Cannula 2.0 01/16/17 04:00 Nasal Cannula 2.0 01/16/17 04:00 36.7 73 16 156/79 100 Nasal Cannula 3.0 01/16/17 00:01 36.8 82 18 96/62 97 Nasal Cannula 3.0 01/15/17 23:59 Nasal Cannula 2.0 01/15/17 20:19 68 16 98 Nasal Cannula 2.0 01/15/17 20:00 Nasal Cannula 2.0 01/15/17 19:26 36.6 68 20 111/41 98 Nasal Cannula 2.0 01/15/17 16:15 36.9 74 18 109/67 99 Nasal Cannula 2.0 Physical Exam General Appearance: no apparent distress Eyes: normal inspection ENT: normal ENT inspection Neck: supple Respiratory/Chest: normal breath sounds, no respiratory distress, no accessory muscle use Cardiovascular: regular rate, rhythm, + systolic murmur (3/6) Abdomen: normal bowel sounds, non tender, soft Extremities: no pedal edema, no calf tenderness, + pertinent finding (left UE swelling around fistula and tenderness to palpation) Neurologic/Psychiatric: alert, normal mood/affect, oriented x 3 Skin: normal color, + pertinent finding (ecchymosis on bilat UE) Lymphatic: no adenopathy Laboratory Results Results Past 24 Hours Test 01/15/17 16:17 01/15/17 17:05 01/15/17 20:37 01/16/17 06:26 Range/Units Bedside Glucose 158 131 100 70-90 mg/dl Activated Partial Thromboplast Time 68.1 21.0-31.0 SECONDS Partial Thromboplastin Ratio 2.6 Test 01/16/17 06:35 01/16/17 11:21 Range/Units White Blood Count 7.73 4.8-10.8 K/uL Red Blood Count 2.91 4.2-5.4 M/uL Hemoglobin 9.2 12.0-16.0 g/dL Hematocrit 29.2 37-47 % Mean Corpuscular Volume 100.3 80-100 fL Mean Corpuscular Hemoglobin 31.6 25-34 pg Mean Corpuscular Hemoglobin Concent 31.5 32-36 g/dl RDW Standard Deviation 57.6 36.4-46.3 fL RDW Coefficient of Variation 16.2 11.5-14.5 % Platelet Count 179 130-400 K/uL Mean Platelet Volume 9.7 7.4-10.4 fL Prothrombin Time 11.6 9.0-12.0 SECONDS Prothromb Time International Ratio 1.1 0.9-1.1 Activated Partial Thromboplast Time 57.0 21.0-31.0 SECONDS Partial Thromboplastin Ratio 2.2 Sodium Level 136 136-145 mmol/L Potassium Level 4.1 3.5-5.1 mmol/L Chloride Level 99 98-107 mmol/L Carbon Dioxide Level 31 21-32 mmol/L Anion Gap 6.0 3-11 mmol/L Blood Urea Nitrogen 15 7-18 mg/dl Creatinine 3.10 0.60-1.20 mg/dl Est Creatinine Clear Calc Drug Dose 14.0 ml/min Estimated GFR () 15.1 Estimated GFR (Non- 13.1 BUN/Creatinine Ratio 4.7 10-20 Random Glucose 96 70-99 mg/dl Calcium Level 8.9 8.5-10.1 mg/dl Bedside Glucose 146 70-90 mg/dl Assessment and Plan 86 year old female with multiple co-morbidities including ESRD requiring dialysis, severe history of GI bleeding presents with chest pain with acute DVT left leg. The plan is for the patient to be started on coumadin with a heparin bridge instead of an IVC filter. However, she had been suffering from left UE pain. Since there was concern for subclavian steal syndrome she was evaluated by vascular surgery. DVT-Acute, POA, Anemia of CKD, h/o GI bleeding -continue heparin drip now that her tunneled IJ catheter has been removed by Dr Rocha -Start Coumadin if no evidence of GI bleeding once all evaluation of fistula complete -Would favor keeping her here with heparin as a bridge for close observation given recent GI bleed, aware of the potential length of stay -Discussed with cardiology Dr. Hernandez and will permanently discontinue her aspirin to avoid triple therapy-we'll continue Plavix and Coumadin only -RANJAN to be given with HD Left upper extremity pain, concern for subclavian steal syndrome - vascular surgery as noted above - pain control Chest pain/Coronary artery disease / LVEF approximately 50% / Moderate aortic stenosis / Moderate mitral regurgitation/demand ischemia Echo: There is mild concentric left ventricular hypertrophy. * Left ventricular systolic function is low normal. * There are regional wall motion abnormalities as specified. * The left atrium is severely dilated. * The right atrium is mildly dilated. * Moderate valvular aortic stenosis. * There is moderate mitral regurgitation. * Compared to a study from 06/2016, the trans-aortic velocities are slightly higher. Otherwise minimal change -Continue Nitropaste -Appreciate cardiology consult - Continue plavix and discontinue aspirin due to risk of bleeding on triple therapy as above, continue rosuvastatin. Paroxysmal atrial fibrillation - continue amiodarone -Starting anticoagulation as above ESRD on dialysis-stable. Left Arm pain may indicate steal syndrome as per Nephro - consult nephrology appreciated -Continue hemodialysis here Sunday -Renally dose all medications -Vascular consulted by Nephro for AV fistulogram today -continue binders, multivitamin [id number] recurrent episodes of hypoglycemia upon admission, hemoglobin A1c 5.4% here which is normal. Improved glucose now -Discontinue home NPH - BSG ACHS -Consideration should be made permanently discontinue her insulin upon discharge Code - DNR Disposition To home in 2-3 days versus PT/OT evaluation for rehabilitation stay Resident Physician Supervision Note: I interviewed and examined the patient. Discussed with Dr. Ellis and agree with findings and plan as documented in the note. Any exceptions or clarifications are listed here: None Documented By: Markos Sena feeling about the same. discussed with vascular surgery - after discussion and revisiting case, they did note they might have to do procedure to increase flow in fistula ros otherwise negative except for as above vitals noted nad breathing unlabored no pallor dvt / gi bleed - cautious anticoagulation ESRD - fistula likely to be surgically treated to improve flow Continued [facility] stay due to: other Discharge planning: uncertain
[2017-01-16] MEDS: HYDROmorphone HCL 2 MG TAB PO PRN (16:55)
[2017-01-16] MEDS: ROSUVASTATIN CALCIUM 10 MG TAB PO SCH (20:48)
[2017-01-16] MEDS: CLOPIDOGREL BISULFATE 75 MG TAB PO SCH (20:50)
[2017-01-16] MEDS: HEPARIN 25,000 UNIT/500ML D5W 500 ML IV PRN (21:33)
[2017-01-17] VITALS (18 sets, daily range): BP systolic 99–138; BP diastolic 46–72; PULSE 64–85; TEMP 36.4–36.9; O2SAT 96–100
[2017-01-17] MEDS: NITROGLYCERIN OINT 2% 1GM PACKET EXT SCH ×4 (03:38→19:24)
[2017-01-17] MEDS: ALBUTEROL 0.083% NEBU SOLN 3 ML VIAL INH SCH ×6 (03:39→19:13)
[2017-01-17 04:13] LABS: HEMATOCRIT 26.8 % (37-47); MEAN CELL VOLUME 100.4 fL (80-100); MEAN CORPUSCULAR HEMOGLOBIN 33.3 pg (25-34); MEAN CORPUSCULAR HGB CONC 33.2 g/dl (32-36); MEAN PLATELET VOLUME 9.6 fL (7.4-10.4); PLATELET COUNT 165 K/uL (130-400); RED BLOOD COUNT 2.67 M/uL (4.2-5.4); WHITE BLOOD COUNT 8.12 K/uL (4.8-10.8)
[2017-01-17 04:29] LABS: PARTIAL THROMBOPLASTIN RATIO 2.1
[2017-01-17 04:35] LABS: BUN/CREATININE RATIO 5.3 (10-20); CALCIUM 8.8 mg/dl (8.5-10.1); CREATININE 4.1 mg/dl (0.60-1.20); MAGNESIUM 2.3 mg/dl (1.8-2.4); POTASSIUM 4.1 mmol/L (3.5-5.1)
[2017-01-17] MEDS: HEPARIN 25,000 UNIT/500ML D5W 500 ML IV PRN ×2 (06:16→20:17)
[2017-01-17] MEDS: INSULIN ASPART 100 UNITS/ML 3 ML PEN SC SCH ×4 (07:00→20:15)
[2017-01-17] MEDS: SEVELAMER HYDROCH 800 MG TAB PO SCH ×4 (07:53→17:40)
[2017-01-17] MEDS: POLYETHYLENE (MIRALAX) 17 GM PACK PO SCH ×2 (07:54→20:15)
[2017-01-17] MEDS: AMIODARONE 200 MG TAB PO SCH (07:54)
[2017-01-17] MEDS: DOCUSATE SODIUM/SENNA 50/8.6MG TAB PO SCH ×2 (07:55→20:15)
[2017-01-17] MEDS: ALLOPURINOL 100 MG TAB PO SCH (07:55)
[2017-01-17] MEDS: PANTOprazole SOD 40 MG TAB PO SCH (07:57)
[2017-01-17] MEDS: MULTIVITAMIN TAB PO SCH (07:58)
[2017-01-17] MEDS: HYDROmorphone HCL 2 MG TAB PO PRN (08:05)
[2017-01-17] MEDS: BOOST BREEZE NUTRITION DRINK 1 BOX PO SCH ×2 (08:06→16:45)
--- NOTE | 2017-01-17 10:29 | CARDIOLOGY PROGRESS NOTE ---
DATE: 01/17/2017 SUBJECTIVE: Mrs. Rahman is resting comfortably in bed without complaints of chest pain. She did have an episode of atypical chest discomfort earlier today. She does not feel this represented angina pectoris, but rather "muscle spasm." OBJECTIVE: VITAL SIGNS: Blood pressure 120/70 with a regular pulse of 78. Respiratory rate is 16. The patient is afebrile at 36.8 degrees Celsius. Saturation is 97% on 2 liters nasal cannula. NECK: Supple with mildly delayed carotid upstrokes. A transmitted murmur is noted bilaterally. CARDIOVASCULAR: Reveals a regular rhythm with a 2/6 crescendo decrescendo systolic murmur heard loudest at the base. No S3. LUNGS: Clear without rales, rhonchi, or wheezes. ABDOMEN: Obese without bruits. EXTREMITIES: Reveal intact radial artery pulse on the right. Significant hematoma noted in the left upper extremity over the fistula. Trace pretibial edema is noted. LABORATORY DATA: CBC notes hemoglobin of 8.9, hematocrit 26.8, white count 8.1, and platelet count 165,000. Electrolytes note a sodium of 135, potassium 4.1, chloride 97, bicarbonate 30, BUN 22, creatinine 4.1, and glucose 111. Troponin I level is down to 0.07 from a peak value of 0.906. DIAGNOSTIC STUDIES: EKG notes sinus rhythm with first degree AV block and premature ectopic beats. There is a complete left bundle branch block. drum saw operator noted 3 episodes of nonsustained ventricular tachycardia overnight. IMPRESSION AND PLAN: 1. Coronary artery disease -- history of CABG x4 in 1996. Cardiac catheterization in 2006 revealed an occluded saphenous vein graft to the diagonal and an occluded saphenous vein graft to the ramus intermedius. Other grafts were patent. She underwent deployment of a right coronary artery stent at that time. We will continue with conservative medical management per her request. 2. Moderate aortic stenosis. 3. Moderate mitral regurgitation. 4. Left lower extremity deep venous thrombosis -- remains on heparin. Will eventually be transitioned to Coumadin. 5. Paroxysmal atrial fibrillation -- continue amiodarone. 6. Nonsustained ventricular tachycardia. 7. Hypertension. 8. Hypercholesterolemia. 9. Chronic renal failure -- for hemodialysis today. This maintains her volume status.
--- NOTE | 2017-01-17 12:09 | Nephrology Progress Note ---
Nephrology Progress Note Date of Service January 17, 2017. Chief Complaint Follow-up for end-stage renal disease on hemodialysis. Subjective Reina was seen and examined in her room this morning. Pain at the left upper extremity hematoma site slightly improved . denies any shortness of breath or chest pain, currently BP and volume status stable. Hemoglobin stable, FOBT negative. She has been on heparin drip for acute DVT. Doppler with LUE steal syndrome. Review of Systems A complete review of systems was performed. Pertinent positives are noted above. All other systems are negative. Vital Signs Last 8 Hrs Date Time Temp Pulse Resp B/P Pulse Ox O2 Delivery O2 Flow Rate FiO2 01/17/17 11:15 74 138/72 01/17/17 11:00 74 131/61 01/17/17 10:45 76 126/56 01/17/17 10:43 76 122/50 01/17/17 10:05 36.6 70 110/46 01/17/17 08:00 97 Nasal Cannula 2.0 01/17/17 07:48 78 16 97 Nasal Cannula 2.0 01/17/17 06:58 36.8 73 19 121/70 100 Nasal Cannula 2.0 I & O 24-Hour Column 01/17/17 08:00 Intake Total 1125 ml Output Total 50 ml Balance 1075 ml Last Recorded Weight Weight (Kilograms): 81.300 Physical Exam GENERAL: Elderly female, AAA x 3, pleasant, ill-appearing, not in any distress. NECK: Supple, no JVD. RESPIRATORY: Normal breathing efforts, no accessory muscle use, clear to auscultation bilaterally, no wheezes or rales. CARDIOVASCULAR: S1, S2 normal, rate rhythm regular. EXTREMITY: 1+ bilateral lower extremity edema. left arm AV fistula with thrill and bruit, small hematoma around. NEURO: speech fluent. PSYCHIATRY: Normal mood and judgment Family History Asthma Cancer SISTER (Breast cancer) Chronic kidney disease MOTHER Diabetes mellitus FATHER Heart disease FATHER Hypertension FATHER MOTHER Kidney disease Kidney stones Stroke Mother - CKD Social History Smoking Status: Never smoker Drug Use: none Marital Status: Housing Status: lives with family Occupation: retired . Retired. Never a smoker. Laboratory Results Past 24 Hours 01/17/17 03:58 01/17/17 03:58 Test 01/16/17 16:25 01/16/17 20:40 01/17/17 03:58 01/17/17 06:29 Bedside Glucose 156 mg/dl (70-90) 174 mg/dl (70-90) 112 mg/dl (70-90) Red Blood Count 2.67 M/uL (4.2-5.4) Mean Corpuscular Volume 100.4 fL (80-100) Mean Corpuscular Hemoglobin 33.3 pg (25-34) Mean Corpuscular Hemoglobin Concent 33.2 g/dl (32-36) RDW Standard Deviation 58.6 fL (36.4-46.3) RDW Coefficient of Variation 16.5 % (11.5-14.5) Mean Platelet Volume 9.6 fL (7.4-10.4) Activated Partial Thromboplast Time 55.4 SECONDS (21.0-31.0) Partial Thromboplastin Ratio 2.1 Anion Gap 8.0 mmol/L (3-11) Est Creatinine Clear Calc Drug Dose 10.6 ml/min Estimated GFR () 10.8 Estimated GFR (Non- 9.3 BUN/Creatinine Ratio 5.3 (10-20) Calcium Level 8.8 mg/dl (8.5-10.1) Magnesium Level 2.3 mg/dl (1.8-2.4) Troponin I 0.070 ng/ml (0-0.045) Test 01/17/17 10:10 Troponin I 0.059 ng/ml (0-0.045) Allergies Coded Allergies: No Known Allergies (Unverified , 01/11/17) Medications Current Inpatient Medications Medications (Trade) Dose Ordered Sig/Janeth Route Start Time Stop Time Status Last Admin Dose Admin Allopurinol (Zyloprim Tab) 50 mg QAM PO 01/11/17 09:00 02/10/17 08:59 01/17/17 07:55 50 MG Amiodarone HCl (Cordarone Tab) 200 mg QAM PO 01/11/17 09:00 02/10/17 08:59 01/16/17 08:42 200 MG Clopidogrel Bisulfate (plAVix TAB) 75 mg HS PO 01/11/17 21:00 02/10/17 20:59 01/16/17 20:50 75 MG Hydrocodone Bit/ Homatropine Methylb (Hycodan Syrup) 0.2 ml Q4 PRN PO 01/11/17 03:15 01/25/17 03:14 Multivitamins (Multivitamin Tab) 2 tab QAM PO 01/11/17 09:00 02/10/17 08:59 01/17/17 07:58 2 TAB Pantoprazole Sodium (Protonix Tab) 40 mg QAM PO 01/11/17 09:00 02/10/17 08:59 01/17/17 07:57 40 MG Rosuvastatin Calcium (Crestor Tab) 10 mg HS PO 01/11/17 21:00 02/10/17 20:59 01/16/17 20:48 10 MG Senna/Docusate Sodium (Senokot S Tab) 1 tab BID PO 01/11/17 09:00 02/10/17 08:59 01/16/17 20:48 1 TAB Sevelamer HCl (Renagel Tab) 800 mg TIDM PO 01/11/17 07:30 02/10/17 07:29 01/17/17 07:53 800 MG Insulin Aspart (novoLOG ASPART) SLIDING SCALE If C... ACHS SC 01/11/17 16:15 02/11/17 16:14 Glucose (Glucose 40% Gel) 15-30 GRAMS 15 GRAMS... UD PRN PO 01/11/17 12:45 02/10/17 12:44 Glucose (Glucose Chew Tab) 4-8 Tablets 4 Tabl... UD PRN PO 01/11/17 12:45 02/10/17 12:44 Dextrose (Dextrose 50% 50ML Syringe) 25-50ML OF 50% DW IV FOR... UD PRN IV 01/11/17 12:45 02/10/17 12:44 01/11/17 15:05 25 ML Glucagon (Glucagon Inj) 1 mg UD PRN SQ 01/11/17 12:45 02/10/17 12:44 Nitroglycerin 0.5 inch 0.5 inch Q6H EXT 01/11/17 14:00 02/10/17 12:44 01/17/17 07:53 0.5 INCH Heparin Sodium/ Dextrose (Heparin 25,000 Unit/500ml D5W) 500 ml @ 20 mls/hr Q24H PRN IV 01/12/17 13:00 02/11/17 12:59 5/17/17 06:16 20 MLS/HR Albuterol Sulfate (Ventolin 0.083% 2.5MG/3ML Neb) 2.5 mg Q4R INH 01/12/17 16:00 02/11/17 15:59 01/17/17 07:48 2.5 MG Enteral Nutritional Formula (Boost Breeze Nutritional Drink) 1 box BIDM PO 01/12/17 16:45 02/11/17 16:44 01/17/17 08:06 1 BOX Ondansetron HCl (Zofran Inj) 4 mg Q8H PRN IV 01/12/17 18:00 02/11/17 17:59 01/12/17 19:29 4 MG Acetaminophen (Tylenol Tab) 650 mg Q6H PRN PO 01/14/17 01:15 02/13/17 01:14 01/16/17 08:54 650 MG Polyethylene (Miralax Powder Packet) 17 gm BID PO 01/14/17 21:00 02/13/17 20:59 01/16/17 20:41 17 GM Lidocaine/ Prilocaine (Emla 2.5% Crm) 1 ea UD EXT 01/16/17 10:15 02/15/17 10:14 Hydromorphone HCl (Dilaudid Tab) 2 mg Q4WK PRN PO 01/16/17 10:15 01/30/17 10:14 01/17/17 08:05 2 MG Impression (1) DVT (deep venous thrombosis) (2) Pulmonary embolism (3) ESRD (end stage renal disease) on dialysis (4) Hypertension (5) Diabetes (6) Anemia Patient admitted for evaluation of dyspnea, LLE DVT and probable PE. She has ASCVD and has been on ASA & Plavix chronically as an outpatient. She has required transfusion w/ 4 U PRBC 09/19 due to LGI bleeding. PMH - ESRD on HD MWF at [facility] (HD Rx: 4 hr 2K 2Ca F-160 EDW 74 kg Heparin 2000 bolus / 1000 hourly), ASCVD s/p CABG x 4 1996, cardiac cath 2006 complicated by pseudoaneurysm of the right femoral artery requiring emergency surgical repair, AODM, HTN, PVD w/ carotid stenosis, h/o nephrolithiasis, cholelithiasis, OA, LGI bleeding 09/19 requiring transfusion w/ 4 U PRBC Recommendations -- due for dialysis today --Continue on Nephrocaps daily, phosphate binder with meal and RANJAN during dialysis -- decrease Dilaudid to 1 milligram every 4 hours as needed for pain, use Emla cream at the AV fistula site before dialysis --discussed the vascular surgery and plan to go to OR on Sunday for left upper extremity steal syndrome --on heparin for LLE DVT, waiting on Coumadin. Will follow
[2017-01-17] MEDS ORDERED: HYDROmorphone HCL 2 MG TAB PO PRN (13:00)
--- NOTE | 2017-01-17 13:32 | Family Medicine Progress Note ---
Progress Note Date of Service January 17, 2017. Subjective Pt evaluation today including: conversation w/ patient, physical exam, chart review, lab review, review of studies Pain: 0/10 PO Intake: WNL Patient had 3 short episodes of non sustained VT last night and patient had mild chest pain during these episodes. Otherwise has been feeling well. She was evaluated with a troponin and EKG. No troponin bump and no significant changes on EKG Constitutional: No fever Eyes: No worsening of vision ENT: No hearing loss Respiratory: No cough, No dyspnea on exertion, No shortness of breath, No sputum, No wheezing Cardiovascular: No chest pain Abdomen: No constipation, No diarrhea, No nausea, No pain, No vomiting Musculoskeletal: No joint pain, No muscle pain Psychiatric: No depression symptoms Heme: + abnormal bleeding/bruising Endo: No fatigue Skin: No rash Objective Vital Signs Date Time Temp Pulse Resp B/P Pulse Ox O2 Delivery O2 Flow Rate FiO2 01/17/17 12:25 36.4 75 119/55 01/17/17 12:15 68 130/54 01/17/17 12:00 71 128/57 01/17/17 12:00 97 Nasal Cannula 2.0 01/17/17 11:45 68 116/55 01/17/17 11:30 70 130/55 01/17/17 11:15 74 138/72 01/17/17 11:00 74 131/61 01/17/17 10:45 76 126/56 01/17/17 10:43 76 122/50 01/17/17 10:05 36.6 70 110/46 01/17/17 08:00 97 Nasal Cannula 2.0 01/17/17 07:48 78 16 97 Nasal Cannula 2.0 01/17/17 06:58 36.8 73 19 121/70 100 Nasal Cannula 2.0 01/17/17 04:00 Nasal Cannula 2.0 01/17/17 03:37 36.6 85 20 116/67 96 Nasal Cannula 2.0 01/17/17 00:17 Nasal Cannula 2.0 01/16/17 23:29 36.9 75 18 101/51 97 Nasal Cannula 2.0 01/16/17 20:00 96 Room Air 01/16/17 19:55 76 16 96 Room Air 01/16/17 19:20 36.4 66 18 127/65 98 Room Air 01/16/17 16:13 70 16 94 Nasal Cannula 2.0 01/16/17 16:00 Nasal Cannula 2.0 01/16/17 15:53 36.5 69 18 118/54 92 Room Air Physical Exam General Appearance: no apparent distress Eyes: normal inspection ENT: normal ENT inspection Neck: supple Respiratory/Chest: normal breath sounds, no respiratory distress, no accessory muscle use Cardiovascular: regular rate, rhythm, + systolic murmur (3/6) Abdomen: normal bowel sounds, non tender, soft Extremities: + pertinent finding (left UE tender to palpation about fistula) Neurologic/Psychiatric: alert, normal mood/affect, oriented x 3 Skin: + pertinent finding (swelling around fistula noted) Lymphatic: no adenopathy Laboratory Results Results Past 24 Hours Test 01/16/17 16:25 01/16/17 20:40 01/17/17 03:58 01/17/17 06:29 Range/Units Bedside Glucose 156 174 112 70-90 mg/dl White Blood Count 8.12 4.8-10.8 K/uL Red Blood Count 2.67 4.2-5.4 M/uL Hemoglobin 8.9 12.0-16.0 g/dL Hematocrit 26.8 37-47 % Mean Corpuscular Volume 100.4 80-100 fL Mean Corpuscular Hemoglobin 33.3 25-34 pg Mean Corpuscular Hemoglobin Concent 33.2 32-36 g/dl RDW Standard Deviation 58.6 36.4-46.3 fL RDW Coefficient of Variation 16.5 11.5-14.5 % Platelet Count 165 130-400 K/uL Mean Platelet Volume 9.6 7.4-10.4 fL Activated Partial Thromboplast Time 55.4 21.0-31.0 SECONDS Partial Thromboplastin Ratio 2.1 Sodium Level 135 136-145 mmol/L Potassium Level 4.1 3.5-5.1 mmol/L Chloride Level 97 98-107 mmol/L Carbon Dioxide Level 30 21-32 mmol/L Anion Gap 8.0 3-11 mmol/L Blood Urea Nitrogen 22 7-18 mg/dl Creatinine 4.10 0.60-1.20 mg/dl Est Creatinine Clear Calc Drug Dose 10.6 ml/min Estimated GFR () 10.8 Estimated GFR (Non- 9.3 BUN/Creatinine Ratio 5.3 10-20 Random Glucose 111 70-99 mg/dl Calcium Level 8.8 8.5-10.1 mg/dl Magnesium Level 2.3 1.8-2.4 mg/dl Troponin I 0.070 0-0.045 ng/ml Test 01/17/17 10:10 01/17/17 12:35 Range/Units Troponin I 0.059 0-0.045 ng/ml Bedside Glucose 139 70-90 mg/dl Assessment and Plan 86 year old female with multiple co-morbidities including ESRD requiring dialysis, severe history of GI bleeding presents with chest pain with acute DVT left leg. The plan is for the patient to be started on coumadin with a heparin bridge instead of an IVC filter. However, she had been suffering from left UE pain. Since there was concern for subclavian steal syndrome she was evaluated by vascular surgery. DVT-Acute, POA, Anemia of CKD, h/o GI bleeding -continue heparin drip now that her tunneled IJ catheter has been removed by Dr Rocha -Start Coumadin if no evidence of GI bleeding once all evaluation of fistula complete -Would favor keeping her here with heparin as a bridge for close observation given recent GI bleed, aware of the potential length of stay -Discussed with cardiology Dr. Hernandez and will permanently discontinue her aspirin to avoid triple therapy-we'll continue Plavix and Coumadin only -RANJAN to be given with HD Left upper extremity pain, concern for subclavian steal syndrome - vascular surgery as noted above - plan is for repair on Sunday - pain control Chest pain/Coronary artery disease / LVEF approximately 50% / Moderate aortic stenosis / Moderate mitral regurgitation/demand ischemia Echo: There is mild concentric left ventricular hypertrophy. * Left ventricular systolic function is low normal. * There are regional wall motion abnormalities as specified. * The left atrium is severely dilated. * The right atrium is mildly dilated. * Moderate valvular aortic stenosis. * There is moderate mitral regurgitation. * Compared to a study from 06/2016, the trans-aortic velocities are slightly higher. Otherwise minimal change -Continue Nitropaste -Appreciate cardiology consult - Continue plavix and discontinue aspirin due to risk of bleeding on triple therapy as above, continue rosuvastatin. Nonsustained VT - patient will remain on tele, no change in medications at this time - [facility] aware Paroxysmal atrial fibrillation - continue amiodarone -Starting anticoagulation as above ESRD on dialysis-stable. Left Arm pain may indicate steal syndrome as per Nephro - consult nephrology appreciated -Continue hemodialysis here Sunday -Renally dose all medications -Vascular consulted by Nephro for AV fistulogram today -continue binders, multivitamin [id number] recurrent episodes of hypoglycemia upon admission, hemoglobin A1c 5.4% here which is normal. Improved glucose now -Discontinue home NPH - BSG ACHS -Consideration should be made permanently discontinue her insulin upon discharge Code - DNR Disposition To home in 2-3 days versus PT/OT evaluation for rehabilitation stay Resident Physician Supervision Note: I interviewed and examined the patient. Discussed with Dr. Ellis and agree with findings and plan as documented in the note. Any exceptions or clarifications are listed here: None Documented By: Markos Sena feeling OK worried about vascular procedure multiple questions but all very very vascular specific - passed concerns along to vascular team ros otherwise negative except for as above vitals noted nad L arm bruised distally n/v intact DVT / recent GI bleed - careful anticoagulation AV fistula w steal - to discuss further with vascular otherwise as above Continued [facility] stay due to: other Discharge planning: uncertain
--- NOTE | 2017-01-17 13:34 | Progress Note ---
Progress Note Date of Service January 17, 2017. Progress Note Ultrasound results suggested a steal syndrome. Would recommend a DRIL procedure of her left arm vs ligation of the fistula. She said she needed to talk to her cable strander first. If agreeable she will be scheduled for noon on Sunday.
[2017-01-17] MEDS: ROSUVASTATIN CALCIUM 10 MG TAB PO SCH (20:15)
[2017-01-17] MEDS: CLOPIDOGREL BISULFATE 75 MG TAB PO SCH (20:15)
[2017-01-18] VITALS (10 sets, daily range): BP systolic 73–108; BP diastolic 39–62; PULSE 36–74; TEMP 36.3–36.8; O2SAT 97–99
[2017-01-18] MEDS: NITROGLYCERIN OINT 2% 1GM PACKET EXT SCH ×4 (02:00→21:23)
[2017-01-18] MEDS: ALBUTEROL 0.083% NEBU SOLN 3 ML VIAL INH SCH ×5 (03:13→19:17)
[2017-01-18] MEDS: AMIODARONE 200 MG TAB PO SCH (05:24)
[2017-01-18 06:36] LABS: BUN/CREATININE RATIO 5.3 (10-20); CALCIUM 8.6 mg/dl (8.5-10.1); CREATININE 3.6 mg/dl (0.60-1.20); MAGNESIUM 2.3 mg/dl (1.8-2.4); POTASSIUM 4.6 mmol/L (3.5-5.1)
[2017-01-18] MEDS: INSULIN ASPART 100 UNITS/ML 3 ML PEN SC SCH ×4 (07:00→21:30)
[2017-01-18 07:05] LABS: PARTIAL THROMBOPLASTIN RATIO 3.4
[2017-01-18] MEDS: ONDANSETRON INJ 2 MG/ML 2 ML VIAL IV PRN (07:21)
[2017-01-18] MEDS: BOOST BREEZE NUTRITION DRINK 1 BOX PO SCH ×3 (07:30→21:00)
[2017-01-18] MEDS: SEVELAMER HYDROCH 800 MG TAB PO SCH ×3 (09:16→16:39)
[2017-01-18] MEDS: PANTOprazole SOD 40 MG TAB PO SCH (09:17)
[2017-01-18] MEDS: MULTIVITAMIN TAB PO SCH (09:17)
[2017-01-18] MEDS: DOCUSATE SODIUM/SENNA 50/8.6MG TAB PO SCH ×2 (09:17→21:27)
[2017-01-18] MEDS: POLYETHYLENE (MIRALAX) 17 GM PACK PO SCH ×2 (09:17→21:26)
[2017-01-18] MEDS: ALLOPURINOL 100 MG TAB PO SCH (09:18)
--- NOTE | 2017-01-18 10:05 | CARDIOLOGY PROGRESS NOTE ---
DATE: 01/18/2017 SUBJECTIVE: Mrs. Rahman is resting in bed without complaints of chest pain or dyspnea. Long discussion was held with the patient and her daughter explaining indications for surgery on her AV fistula. Also, discussed the situation with Dr. Hutchinson. OBJECTIVE: VITAL SIGNS: Blood pressure is 108/50 with a regular pulse of 72. Respiratory rate is 20. The patient is afebrile at 36.5 degrees Celsius. Saturation is 98% on 3 liters nasal cannula. NECK: Supple with delayed and prolonged carotid upstrokes. A transmitted murmur is noted bilaterally. Jugular venous pressure elevated at 90 degrees. CARDIOVASCULAR: Reveals a regular rhythm with a 2/6 crescendo decrescendo systolic murmur heard loudest at the base. No S3. LUNGS: Clear without rales, rhonchi, or wheezes. ABDOMEN: Obese without bruits. EXTREMITIES: Reveal intact radial artery pulses on the right. Significant hematoma noted over the left upper extremity fistula. A quiet bruit is noted. There is trace pretibial edema bilaterally. LABORATORY DATA: Electrolytes note a sodium of 134, potassium 4.6, chloride 98, bicarb 28, BUN 19, creatinine 3.6, and glucose 147. monitor worker noted an episode of bigeminy last evening. DIAGNOSTIC STUDIES: EKG notes sinus rhythm with first degree AV block and a complete left bundle branch block with repolarization changes. IMPRESSION AND PLAN: 1. Coronary artery disease -- history of CABG x4 in 1996. Cardiac catheterization in 2006 revealed occluded saphenous vein grafts to the diagonal and ramus intermedius. Other stents patent. She underwent deployment of right coronary artery stent at that time. The procedure was complicated by a large right groin hematoma, requiring vascular surgery. For this reason, she would like to continue with conservative medical care for her coronary artery disease. 2. Moderate aortic stenosis. 3. Moderate mitral regurgitation. 4. Left lower extremity deep venous thrombosis -- on heparin. We will transition to Coumadin once issues of AV fistula resolved. 5. Paroxysmal atrial fibrillation - continue amiodarone. 6. Nonsustained ventricular tachycardia. 7. Hypertension. 8. Hypercholesterolemia. 9. Chronic renal failure -- hemodialysis prior to possible surgery tomorrow. 10. AV fistula of left upper extremity -- Dr. Rocha's note reviewed. Discussed in detail with the patient and her daughter today. It seems that the DRIL procedure is indicated and should be performed as planned tomorrow. The patient and family reluctantly agree.
--- NOTE | 2017-01-18 11:51 | Family Medicine Progress Note ---
Progress Note Date of Service January 18, 2017. Subjective Pt evaluation today including: conversation w/ patient, conversation w/ family , physical exam, chart review, lab review, review of studies, conversation w/ senior professional services consultant Pain: 11/10 PO Intake: WNL Patient and family was there for interview. We did discuss some of the risks and benefits of the DRIL procedure The family and patient reflected understanding and understand the necessity of the procedure Have further questions with vascular surgery Did have an episode of bigeminy overnight which she did feel some palpitations but symptoms have no recurred Constitutional: No fever Eyes: No worsening of vision ENT: No hearing loss Respiratory: No cough, No dyspnea on exertion, No shortness of breath, No sputum, No wheezing Cardiovascular: No chest pain Abdomen: No constipation, No diarrhea, No nausea, No pain, No vomiting Musculoskeletal: + swelling (left UE swelling and brusiing around the fistula site) Neurologic: + balance problems, + weakness Psychiatric: + anxiety (regarding surgery) Heme: + abnormal bleeding/bruising Endo: + fatigue Skin: No rash Medications Medications Administered Medications (Trade) Dose Ordered Sig/Janeth Route Start Time Stop Time Status Last Admin Dose Admin Allopurinol (Zyloprim Tab) 50 mg QAM PO 01/11/17 09:00 02/10/17 08:59 01/18/17 09:18 50 MG Amiodarone HCl (Cordarone Tab) 200 mg QAM PO 01/11/17 09:00 02/10/17 08:59 01/18/17 05:24 200 MG Aspirin (Ecotrin Tab) 81 mg HS PO 01/11/17 21:00 01/12/17 09:49 DC 01/11/17 20:23 81 MG Clopidogrel Bisulfate (plAVix TAB) 75 mg HS PO 01/11/17 21:00 02/10/17 20:59 01/17/17 20:15 75 MG Insulin Human NPH (novoLIN-N NPH) 10 units QAM SQ 01/11/17 09:00 01/11/17 12:53 DC 01/11/17 08:22 10 UNITS Multivitamins (Multivitamin Tab) 2 tab QAM PO 01/11/17 09:00 02/10/17 08:59 01/18/17 09:17 2 TAB Pantoprazole Sodium (Protonix Tab) 40 mg QAM PO 01/11/17 09:00 02/10/17 08:59 01/18/17 09:17 40 MG Rosuvastatin Calcium (Crestor Tab) 10 mg HS PO 01/11/17 21:00 02/10/17 20:59 01/17/17 20:15 10 MG Senna/Docusate Sodium (Senokot S Tab) 1 tab BID PO 01/11/17 09:00 02/10/17 08:59 01/18/17 09:17 1 TAB Sevelamer HCl (Renagel Tab) 800 mg TIDM PO 01/11/17 07:30 02/10/17 07:29 01/18/17 09:16 800 MG Dextrose (Dextrose 50% 50ML Syringe) 25-50ML OF 50% DW IV FOR... UD PRN IV 01/11/17 04:15 01/11/17 12:53 DC 01/11/17 11:52 25 ML Heparin Sodium (Porcine) 1 ea 1 ea TODAY@0600 N/A 01/12/17 06:00 01/12/17 18:00 DC 01/12/17 05:42 1 EA Epoetin Joshua/ Syringe (Procrit Inj/ Syringe) 0.4 ml @ 1 mls/min TODAY@0600 IV. 01/12/17 06:00 01/12/17 18:00 DC 01/12/17 15:50 1 MLS/MIN Nitroglycerin (Nitrostat Tab) 0.4 mg STK-MED ONCE .ROUTE 01/11/17 11:49 01/11/17 11:50 DC 01/11/17 11:51 0.4 MG Miscellaneous Information (Dc All Previously Ordered Diabetes Meds) 1 ea TODAY@1300 ONCE N/A 01/11/17 13:00 01/11/17 13:01 DC 01/11/17 17:28 1 EA Dextrose (Dextrose 50% 50ML Syringe) 25-50ML OF 50% DW IV FOR... UD PRN IV 01/11/17 12:45 02/10/17 12:44 01/11/17 15:05 25 ML Nitroglycerin 0.5 inch 0.5 inch Q6H EXT 01/11/17 14:00 02/10/17 12:44 01/18/17 09:16 0.5 INCH Dextrose (D5W 1000ml) 1,000 ml @ 50 mls/hr Q20H IV 01/11/17 15:45 01/12/17 15:12 DC 01/12/17 11:47 50 MLS/HR Enteral Nutritional Formula 1 can 1 can TID PO 01/11/17 17:30 01/12/17 14:51 DC 01/11/17 20:20 1 CAN Heparin Sodium/ Dextrose (Heparin 25,000 Unit/500ml D5W) 500 ml @ 17 mls/hr Q24H PRN IV 01/12/17 13:00 02/11/17 12:59 01/17/17 20:17 20 MLS/HR Paricalcitol (Zemplar Inj) 3 mcg 1030 ONCE IV. 01/12/17 10:30 01/12/17 10:31 DC 01/12/17 15:51 3 MCG Albuterol Sulfate (Ventolin 0.083% 2.5MG/3ML Neb) 2.5 mg Q4R INH 01/12/17 16:00 02/11/17 15:59 01/18/17 07:09 2.5 MG Enteral Nutritional Formula (Boost Breeze Nutritional Drink) 1 box BIDM PO 01/12/17 16:45 02/11/17 16:44 01/17/17 16:45 1 BOX Ondansetron HCl 4 mg 4 mg Q8H PRN IV 01/12/17 18:00 02/11/17 17:59 01/18/17 07:21 4 MG Heparin Sodium (Porcine) 4500 unit/Syringe 4.5 ml @ 10 mls/min TODAY@0000 ONCE IV 01/13/17 00:00 01/13/17 00:01 DC 01/13/17 00:19 10 MLS/MIN Heparin Sodium (Porcine)/Syringe (Heparin Iv Bolus/Syringe) 3 ml @ 10 mls/min NOW ONCE IV 01/13/17 15:15 01/13/17 15:16 DC 01/13/17 17:02 10 MLS/MIN Acetaminophen (Tylenol Tab) 650 mg Q6H PRN PO 01/14/17 01:15 02/13/17 01:14 01/16/17 08:54 650 MG Potassium Chloride (Klor-Con M10) 20 meq NOW ONCE PO 01/14/17 09:45 01/14/17 09:46 DC 01/14/17 10:30 20 MEQ Polyethylene (Miralax Powder Packet) 17 gm BID PO 01/14/17 21:00 02/13/17 20:59 01/18/17 09:17 17 GM Polyethylene 17 gm 17 gm NOW ONCE PO 01/14/17 10:00 01/14/17 10:01 DC 01/14/17 10:33 17 GM Heparin Sodium (Porcine)/Syringe (Heparin Iv Bolus/Syringe) 4.5 ml @ 10 mls/min TODAY@1015 IV 01/15/17 10:15 01/15/17 11:30 DC 01/15/17 11:04 10 MLS/MIN Morphine Sulfate (MoRPHine SULFATE INJ) 2 mg NOW STAT IV 01/15/17 17:44 01/15/17 17:48 DC 01/15/17 18:17 2 MG Hydromorphone HCl (Dilaudid Tab) 2 mg Q4WK PRN PO 01/16/17 10:15 01/17/17 12:11 DC 01/17/17 08:05 2 MG Hydromorphone HCl (Dilaudid Tab) 2 mg TODAY@1015 PO 01/16/17 10:15 01/16/17 11:00 DC 01/16/17 10:23 2 MG Objective Vital Signs Date Time Temp Pulse Resp B/P Pulse Ox O2 Delivery O2 Flow Rate FiO2 01/18/17 08:00 Nasal Cannula 3.0 01/18/17 07:28 36.5 72 20 108/41 98 Nasal Cannula 3.0 01/18/17 07:09 74 16 99 Nasal Cannula 2.0 01/18/17 04:07 Nasal Cannula 2.0 01/18/17 03:56 36.8 70 20 100/62 98 Nasal Cannula 2.0 01/18/17 01:04 99/62 01/18/17 01:00 73/47 01/18/17 00:45 Nasal Cannula 2.0 01/17/17 23:41 36.9 77 22 105/62 99 Room Air 2.0 01/17/17 20:00 Nasal Cannula 2.0 01/17/17 19:20 36.5 71 20 99/48 98 2.0 01/17/17 19:14 64 16 98 Nasal Cannula 2.0 01/17/17 16:00 97 Nasal Cannula 2.0 01/17/17 12:25 36.4 75 119/55 01/17/17 12:15 68 130/54 01/17/17 12:00 71 128/57 01/17/17 12:00 97 Nasal Cannula 2.0 Physical Exam General Appearance: no apparent distress Eyes: normal inspection ENT: normal ENT inspection Neck: supple Respiratory/Chest: normal breath sounds, no respiratory distress, no accessory muscle use, + decreased breath sounds (bilat bases) Cardiovascular: regular rate, rhythm, + systolic murmur (3/6) Abdomen: normal bowel sounds, non tender, soft Extremities: normal range of motion, non-tender, no pedal edema, no calf tenderness Neurologic/Psychiatric: alert, normal mood/affect, oriented x 3 Skin: normal color, warm/dry, no rash Lymphatic: no adenopathy Laboratory Results Results Past 24 Hours Test 01/17/17 12:35 01/17/17 16:07 01/17/17 20:12 01/18/17 05:42 Range/Units Bedside Glucose 139 166 139 70-90 mg/dl Activated Partial Thromboplast Time 87.2 21.0-31.0 SECONDS Partial Thromboplastin Ratio 3.4 Sodium Level 134 136-145 mmol/L Potassium Level 4.6 3.5-5.1 mmol/L Chloride Level 98 98-107 mmol/L Carbon Dioxide Level 28 21-32 mmol/L Anion Gap 8.0 3-11 mmol/L Blood Urea Nitrogen 19 7-18 mg/dl Creatinine 3.60 0.60-1.20 mg/dl Est Creatinine Clear Calc Drug Dose 12.1 ml/min Estimated GFR () 12.6 Estimated GFR (Non- 10.9 BUN/Creatinine Ratio 5.3 10-20 Random Glucose 147 70-99 mg/dl Calcium Level 8.6 8.5-10.1 mg/dl Magnesium Level 2.3 1.8-2.4 mg/dl Test 01/18/17 06:37 01/18/17 11:27 Range/Units Bedside Glucose 136 137 70-90 mg/dl Assessment and Plan 86 year old female with multiple co-morbidities including ESRD requiring dialysis, severe history of GI bleeding presents with chest pain with acute DVT left leg. The plan is for the patient to be started on coumadin with a heparin bridge instead of an IVC filter. However, she had been suffering from left UE pain. Since there was concern for subclavian steal syndrome she was evaluated by vascular surgery. DVT-Acute, POA, Anemia of CKD, h/o GI bleeding -continue heparin drip now that her tunneled IJ catheter has been removed by Dr Rocha -Start Coumadin if no evidence of GI bleeding once all evaluation of fistula complete -Would favor keeping her here with heparin as a bridge for close observation given recent GI bleed, aware of the potential length of stay -Discussed with cardiology Dr. Hernandez and will permanently discontinue her aspirin to avoid triple therapy-we'll continue Plavix and Coumadin only - discussed potential as a surgical candidate and does feel like she is for this procedure -RANJAN to be given with HD Left upper extremity pain, concern for subclavian steal syndrome - vascular surgery as noted above - plan is for repair on Sunday - pain control Chest pain/Coronary artery disease / LVEF approximately 50% / Moderate aortic stenosis / Moderate mitral regurgitation/demand ischemia Echo: There is mild concentric left ventricular hypertrophy. * Left ventricular systolic function is low normal. * There are regional wall motion abnormalities as specified. * The left atrium is severely dilated. * The right atrium is mildly dilated. * Moderate valvular aortic stenosis. * There is moderate mitral regurgitation. * Compared to a study from 06/2016, the trans-aortic velocities are slightly higher. Otherwise minimal change -Continue Nitropaste -Appreciate cardiology consult - Continue plavix and discontinue aspirin due to risk of bleeding on triple therapy as above, continue rosuvastatin. Nonsustained VT - patient will remain on tele, no change in medications at this time - [facility] aware Paroxysmal atrial fibrillation - continue amiodarone -Starting anticoagulation as above ESRD on dialysis-stable. Left Arm pain may indicate steal syndrome as per Nephro - consult nephrology appreciated -Continue hemodialysis here Sunday -Renally dose all medications -Vascular consulted by Nephro for AV fistulogram today -continue binders, multivitamin [id number] recurrent episodes of hypoglycemia upon admission, hemoglobin A1c 5.4% here which is normal. Improved glucose now -Discontinue home NPH - BSG ACHS -Consideration should be made permanently discontinue her insulin upon discharge Code - DNR Disposition home after d/c and coumadin bridge complete Resident Physician Supervision Note: I interviewed and examined the patient. Discussed with Dr. Ellis and agree with findings and plan as documented in the note. Any exceptions or clarifications are listed here: None Documented By: Markos Sena discussed with vascular and nephrology, dr ellis d/w cardiology. we both then discussed with pt and family (as did each individual specialty -- all but vascular before i saw pt, and vascular informed me they'd be in in the afternoon to discuss) -DRIL vs ligate fistula and have to obtain new HD access vs keeping things as they are appeared to be three main choices...given that, pt and family agreed that vascular surgery's plan made the most sense. accepting and wll discuss more and then discuss more when vascular sees her later on today no other new complaints ros otherwise negative except for as above vitals noted nad breathing unlabored no pallor or icterus no new bruising steal syndrome - for DRIL procedure - understands, agrees w this over other options at the time of our discussion - to discuss further with vascular surgery DVT / recent GI bleed - ongoign cautious heparin - appearing stable no bleed, transition to coumadin after -- will need to remain inpatient until INR therapeutic given bleed risk otherwise as above Continued [facility] stay due to: other Discharge planning: uncertain
--- NOTE | 2017-01-18 12:03 | Nephrology Progress Note ---
Nephrology Progress Note Date of Service January 18, 2017. Chief Complaint Follow-up for end-stage renal disease on hemodialysis. Subjective Reina was seen and examined in her room this morning with daughters at bedside. Pain at the left upper extremity hematoma site improved . denies any shortness of breath or chest pain, currently BP and volume status stable. Hemoglobin stable, FOBT negative. She has been on heparin drip for acute DVT. Doppler with LUE steal syndrome. Yesterday had only 1.5 h HD due to high venous pressure. Review of Systems A complete review of systems was performed. Pertinent positives are noted above. All other systems are negative. Vital Signs Last 8 Hrs Date Time Temp Pulse Resp B/P Pulse Ox O2 Delivery O2 Flow Rate FiO2 01/18/17 07:28 36.5 72 20 108/41 98 Nasal Cannula 3.0 01/18/17 07:09 74 16 99 Nasal Cannula 2.0 01/18/17 04:07 Nasal Cannula 2.0 01/18/17 03:56 36.8 70 20 100/62 98 Nasal Cannula 2.0 01/18/17 01:04 99/62 01/18/17 01:00 73/47 01/18/17 00:45 Nasal Cannula 2.0 I & O 24-Hour Column 01/18/17 08:00 Intake Total 692 ml Output Total 973 ml Balance -281 ml Last Recorded Weight Weight (Kilograms): 78.200 Physical Exam GENERAL: Elderly female, AAA x 3, pleasant, ill-appearing, not in any distress. NECK: Supple, no JVD. RESPIRATORY: Normal breathing efforts, no accessory muscle use, clear to auscultation bilaterally, no wheezes or rales. CARDIOVASCULAR: S1, S2 normal, rate rhythm regular. EXTREMITY: 1+ bilateral lower extremity edema. left arm AV fistula with thrill and bruit, large hematoma around. NEURO: speech fluent. PSYCHIATRY: Normal mood and judgment Family History Asthma Cancer SISTER (Breast cancer) Chronic kidney disease MOTHER Diabetes mellitus FATHER Heart disease FATHER Hypertension FATHER MOTHER Kidney disease Kidney stones Stroke Mother - CKD Social History Smoking Status: Never smoker Drug Use: none Marital Status: Housing Status: lives with family Occupation: retired . Retired. Never a smoker. Laboratory Results Past 24 Hours 01/18/17 05:42 Test 01/17/17 10:10 01/17/17 12:35 01/17/17 16:07 01/17/17 20:12 Troponin I 0.059 ng/ml (0-0.045) Bedside Glucose 139 mg/dl (70-90) 166 mg/dl (70-90) 139 mg/dl (70-90) Test 01/18/17 05:42 01/18/17 06:37 Activated Partial Thromboplast Time 87.2 SECONDS (21.0-31.0) Partial Thromboplastin Ratio 3.4 Anion Gap 8.0 mmol/L (3-11) Est Creatinine Clear Calc Drug Dose 12.1 ml/min Estimated GFR () 12.6 Estimated GFR (Non- 10.9 BUN/Creatinine Ratio 5.3 (10-20) Calcium Level 8.6 mg/dl (8.5-10.1) Magnesium Level 2.3 mg/dl (1.8-2.4) Bedside Glucose 136 mg/dl (70-90) Allergies Coded Allergies: No Known Allergies (Unverified , 01/11/17) Medications Current Inpatient Medications Medications (Trade) Dose Ordered Sig/Janeth Route Start Time Stop Time Status Last Admin Dose Admin Allopurinol (Zyloprim Tab) 50 mg QAM PO 01/11/17 09:00 02/10/17 08:59 01/17/17 07:55 50 MG Amiodarone HCl (Cordarone Tab) 200 mg QAM PO 01/11/17 09:00 02/10/17 08:59 01/18/17 05:24 200 MG Clopidogrel Bisulfate (plAVix TAB) 75 mg HS PO 01/11/17 21:00 02/10/17 20:59 01/17/17 20:15 75 MG Hydrocodone Bit/ Homatropine Methylb (Hycodan Syrup) 0.2 ml Q4 PRN PO 01/11/17 03:15 01/25/17 03:14 Multivitamins (Multivitamin Tab) 2 tab QAM PO 01/11/17 09:00 02/10/17 08:59 01/17/17 07:58 2 TAB Pantoprazole Sodium (Protonix Tab) 40 mg QAM PO 01/11/17 09:00 02/10/17 08:59 01/17/17 07:57 40 MG Rosuvastatin Calcium (Crestor Tab) 10 mg HS PO 01/11/17 21:00 02/10/17 20:59 01/17/17 20:15 10 MG Senna/Docusate Sodium (Senokot S Tab) 1 tab BID PO 01/11/17 09:00 02/10/17 08:59 01/16/17 20:48 1 TAB Sevelamer HCl (Renagel Tab) 800 mg TIDM PO 01/11/17 07:30 02/10/17 07:29 01/17/17 17:40 800 MG Insulin Aspart (novoLOG ASPART) SLIDING SCALE If C... ACHS SC 01/11/17 16:15 02/11/17 16:14 Glucose (Glucose 40% Gel) 15-30 GRAMS 15 GRAMS... UD PRN PO 01/11/17 12:45 02/10/17 12:44 Glucose (Glucose Chew Tab) 4-8 Tablets 4 Tabl... UD PRN PO 01/11/17 12:45 02/10/17 12:44 Dextrose (Dextrose 50% 50ML Syringe) 25-50ML OF 50% DW IV FOR... UD PRN IV 01/11/17 12:45 02/10/17 12:44 01/11/17 15:05 25 ML Glucagon (Glucagon Inj) 1 mg UD PRN SQ 01/11/17 12:45 02/10/17 12:44 Nitroglycerin 0.5 inch 0.5 inch Q6H EXT 01/11/17 14:00 02/10/17 12:44 01/17/17 14:26 0.5 INCH Heparin Sodium/ Dextrose (Heparin 25,000 Unit/500ml D5W) 500 ml @ 17 mls/hr Q24H PRN IV 01/12/17 13:00 02/11/17 12:59 01/17/17 20:17 20 MLS/HR Albuterol Sulfate (Ventolin 0.083% 2.5MG/3ML Neb) 2.5 mg Q4R INH 01/12/17 16:00 02/11/17 15:59 01/18/17 07:09 2.5 MG Enteral Nutritional Formula (Boost Breeze Nutritional Drink) 1 box BIDM PO 01/12/17 16:45 02/11/17 16:44 01/17/17 16:45 1 BOX Ondansetron HCl (Zofran Inj) 4 mg Q8H PRN IV 01/12/17 18:00 02/11/17 17:59 01/18/17 07:21 4 MG Acetaminophen (Tylenol Tab) 650 mg Q6H PRN PO 01/14/17 01:15 02/13/17 01:14 01/16/17 08:54 650 MG Polyethylene (Miralax Powder Packet) 17 gm BID PO 01/14/17 21:00 02/13/17 20:59 01/16/17 20:41 17 GM Lidocaine/ Prilocaine (Emla 2.5% Crm) 1 ea UD EXT 01/16/17 10:15 02/15/17 10:14 Hydromorphone HCl (Dilaudid Tab) 1 mg Q4H PRN PO 01/17/17 13:00 01/31/17 12:59 Impression (1) DVT (deep venous thrombosis) (2) Pulmonary embolism (3) ESRD (end stage renal disease) on dialysis (4) Hypertension (5) Diabetes (6) Anemia Patient admitted for evaluation of dyspnea, LLE DVT and probable PE. She has ASCVD and has been on ASA & Plavix chronically as an outpatient. She has required transfusion w/ 4 U PRBC 09/19 due to LGI bleeding. PMH - ESRD on HD MWF at [facility] (HD Rx: 4 hr 2K 2Ca F-160 EDW 74 kg Heparin 2000 bolus / 1000 hourly), ASCVD s/p CABG x 4 1996, cardiac cath 2006 complicated by pseudoaneurysm of the right femoral artery requiring emergency surgical repair, AODM, HTN, PVD w/ carotid stenosis, h/o nephrolithiasis, cholelithiasis, OA, LGI bleeding 09/19 requiring transfusion w/ 4 U PRBC Getting DRIL for steal syndrome. Recommendations -- plan for dialysis tomorrow before OR --Continue on Nephrocaps daily, phosphate binder with meal and RANJAN during dialysis -- decrease Dilaudid to 1 milligram every 4 hours as needed for pain, use Emla cream at the AV fistula site before dialysis --discussed in detail with pt and family regarding TDC risks and suggested to have the procedure in order to save the AVF. Pt still concerned about the procedure and will think about the final decision --on heparin for LLE DVT, waiting on Coumadin. Will follow
--- NOTE | 2017-01-18 14:11 | Progress Note ---
Progress Note Date of Service January 18, 2017. Progress Note Discussed procedure, risks, benefits and alternatives with pt, she expresses understanding and agreement to IVAN HOLLINGSWORTH with R saphenous v harvest. Daughters present.
--- NOTE | 2017-01-18 14:24 | Anesthesiology Progress Note ---
Anesthesia Progress Note Date of Service January 18, 2017. Progress Notes This is an 87 y/o w female w/ ESRD on H/D for AV Fistula Drill procedure.PMHx is sig. for CAD,s/p GA x 2,s/p CABG 1998,s/p PTCA w/stent to RCA 2006,HTN, Hyperlipidemia,chronic diastolic CHF,Mod./Mod MR,Hx/o A Fib,Asthma,DVT/PE, NIDDM/IR,Gout,GERD,and anemia.Pt last had H/D on 01/17/2017.Discussed anesthesia (risks vs Benefits) w/pt and family,all questions answered.Informed consent obtained.ASA 4
[2017-01-18 14:49] LABS: PARTIAL THROMBOPLASTIN RATIO 2.3
[2017-01-18] MEDS: HEPARIN 25,000 UNIT/500ML D5W 500 ML IV PRN (21:21)
[2017-01-18] MEDS: ROSUVASTATIN CALCIUM 10 MG TAB PO SCH (21:25)
[2017-01-18] MEDS: CLOPIDOGREL BISULFATE 75 MG TAB PO SCH (21:26)
[2017-01-19] VITALS (29 sets, daily range): BP systolic 99–145; BP diastolic 37–70; PULSE 36–74; TEMP 36.4–37; O2SAT 96–100
[2017-01-19] MEDS: NITROGLYCERIN OINT 2% 1GM PACKET EXT SCH ×2 (02:11→08:00)
[2017-01-19] MEDS ORDERED: CEFAZOLIN 1000MG/55 ML D5W IV SCH (06:00)
[2017-01-19] MEDS ORDERED: CEFAZOLIN IV 1,000 MG in DEXTROSE 5% 50ML 50 ML IV ONE (07:00)
[2017-01-19 07:05] LABS: HEMATOCRIT 25.8 % (37-47); MEAN CELL VOLUME 100.8 fL (80-100); MEAN CORPUSCULAR HGB CONC 31.8 g/dl (32-36); MEAN PLATELET VOLUME 9.9 fL (7.4-10.4); PLATELET COUNT 162 K/uL (130-400); RED BLOOD COUNT 2.56 M/uL (4.2-5.4); WHITE BLOOD COUNT 7.99 K/uL (4.8-10.8)
[2017-01-19 07:18] LABS: PARTIAL THROMBOPLASTIN RATIO 1.8
[2017-01-19] MEDS: ALBUTEROL 0.083% NEBU SOLN 3 ML VIAL INH SCH ×2 (07:31→20:08)
--- NOTE | 2017-01-19 08:40 | Progress Note ---
Progress Note Date of Service January 19, 2017. Progress Note Pt's LUE with large, firm hematoma from prior infiltration. Bruit/thrill still present, but difficult to palpate. Discussed wtvictro hugo Rocha, recommends Permcath insertion and resting LUE for a few weeks. Will cx DRIL procedure for today and reschedule when LUE hematoma resolved. Permcath insertion procedure, risks, benefits, and alternatives discussed with pt, she expresses understanding and agreement. Daughter present as well.
[2017-01-19] MEDS: BOOST BREEZE NUTRITION DRINK 1 BOX PO SCH ×3 (09:00→20:56)
[2017-01-19] MEDS: MULTIVITAMIN TAB PO SCH (09:00)
[2017-01-19] MEDS: DOCUSATE SODIUM/SENNA 50/8.6MG TAB PO SCH ×2 (09:00→20:55)
[2017-01-19] MEDS: ALLOPURINOL 100 MG TAB PO SCH (09:00)
[2017-01-19] MEDS: POLYETHYLENE (MIRALAX) 17 GM PACK PO SCH ×2 (09:00→20:54)
[2017-01-19] MEDS: INSULIN ASPART 100 UNITS/ML 3 ML PEN SC SCH ×4 (09:10→20:50)
[2017-01-19] MEDS: PANTOprazole SOD 40 MG TAB PO SCH (09:17)
[2017-01-19] MEDS: AMIODARONE 200 MG TAB PO SCH (09:17)
[2017-01-19] MEDS: SEVELAMER HYDROCH 800 MG TAB PO SCH ×3 (09:19→16:45)
--- NOTE | 2017-01-19 09:42 | CARDIOLOGY PROGRESS NOTE ---
DATE: 01/19/2017 DATE: 01/19/2017. SUBJECTIVE: Mrs. Rahman is resting in bed without complaints of chest pain, dyspnea or palpitations. She is anxious to have her hemodialysis and surgery performed today. OBJECTIVE: VITAL SIGNS: Blood pressure is 116/70 with a regular pulse of 70. Respiratory rate is 16. The patient is afebrile at 36.9 degrees Celsius. Saturation is 96% on 2 liters nasal cannula. NECK: Supple with delayed and prolonged carotid upstrokes. There are no carotid bruits. Jugular venous pressure is 10 cm of water at 90 degrees. CARDIOVASCULAR EXAMINATION: Reveals a regular rhythm with a 2/6 crescendo decrescendo systolic murmur heard loudest at the base. No S3. LUNGS: Note bibasilar rales, but no rhonchi or wheezes. ABDOMEN: Obese without bruits. EXTREMITIES: Reveal intact radial artery pulse on the right. Large hematoma is noted over the left upper extremity fistula. A bruit is present. Trace pretibial edema is noted. LABORATORY DATA: CBC notes hemoglobin of 8.2, hematocrit 25.8, white count 7.9, platelet count 162,000. Bedside glucose is 131. PTT is 46.6. night monitor notes occasional PVCs. IMPRESSION AND PLAN: 1. Coronary artery disease. The patient had CABG x4 in 1996. Cardiac catheterization in 2006 revealed occluded saphenous vein grafts to the diagonal and ramus intermedius. Other grafts were patent. She underwent deployment of right coronary artery stent at that time. The procedure was complicated by a large right groin hematoma which required vascular surgery urgently. For this reason, she would like to continue conservative medical care. 2. Moderate aortic stenosis. 3. Moderate mitral regurgitation. 4. Left lower extremity deep venous thrombosis - covered with heparin. The patient refuses Royal filter. She will transition to Coumadin once AV fistula issues resolve. 5. Paroxysmal atrial fibrillation -- continue amiodarone. 6. Nonsustained ventricular tachycardia. 7. Hypertension 8. Hypercholesterolemia. 9. Chronic renal failure - for hemodialysis this morning. 10. Arteriovenous fistula left upper extremity -- patient to have a DRIL procedure performed today.
--- NOTE | 2017-01-19 09:51 | Procedure Note ---
Pre-Mod Sedation Assessment General Date of Moderate Sedation: January 19, 2017. Vital Signs: Vital Signs Past 12 Hours Date Time Temp Pulse Resp B/P Pulse Ox O2 Delivery O2 Flow Rate FiO2 01/19/17 07:55 Nasal Cannula 2.0 01/19/17 07:30 36.4 74 20 99/64 99 Nasal Cannula 2.0 01/19/17 07:13 71 16 96 Nasal Cannula 2.0 01/19/17 04:22 36.9 70 18 116/70 99 Nasal Cannula 2.0 01/19/17 04:00 Nasal Cannula 2.0 01/19/17 00:39 Nasal Cannula 2.0 01/19/17 00:00 36.9 72 20 100/43 98 Nasal Cannula 2.0 Review Cardiovascular: regular rate, rhythm Abdomen: normal bowel sounds, non tender, soft Lungs: lungs clear Pre-Sedation Airway Assessment Oral Cavity: Dentures Short Thick Neck: No Hx of Sleep Apnea: No Smoking Status: Never Smoker Mallampati Classification: Class I ASA Classification: Class II Notes The planned sedation has been discussed with the patient and consent obtained. I have identified the patient, determined the appropriateness of sedation and have assessed the patient immediately prior to the procedure. All medicine(s) and interventions are by my order.
--- NOTE | 2017-01-19 09:51 | Progress Note ---
Progress Note Date of Service January 19, 2017. Progress Note Patient with large hematoma over her fistula. Fistula patent but will be unable to be accessed. Would recommend holding off on the DRIL procedure and placing a permcath to rest the arm. I have discussed the risks options and benefits of the procedure with the patient. The patient understands the risks options and benefits and agrees to the procedure.
--- NOTE | 2017-01-19 09:59 | Nephrology Progress Note ---
Nephrology Progress Note Date of Service January 19, 2017. Chief Complaint Follow-up for end-stage renal disease on hemodialysis. José greenfield was seen and examined this am with her daughter at bedside. She has been having more pain in her left arm hematoma site. Denies SOB, CP. BP stable. Review of Systems A complete review of systems was performed. Pertinent positives are noted above. All other systems are negative. Vital Signs Last 8 Hrs Date Time Temp Pulse Resp B/P Pulse Ox O2 Delivery O2 Flow Rate FiO2 01/19/17 07:55 Nasal Cannula 2.0 01/19/17 07:13 71 16 96 Nasal Cannula 2.0 01/19/17 04:22 36.9 70 18 116/70 99 Nasal Cannula 2.0 01/19/17 04:00 Nasal Cannula 2.0 I & O 24-Hour Column 01/19/17 08:00 Intake Total 1223 ml Output Total 150 ml Balance 1073 ml Last Recorded Weight Weight (Kilograms): 78.200 Physical Exam GENERAL: Elderly female, AAA x 3, pleasant, ill-appearing, not in any distress. NECK: Supple, no JVD. RESPIRATORY: Normal breathing efforts, no accessory muscle use, clear to auscultation bilaterally, no wheezes or rales. CARDIOVASCULAR: S1, S2 normal, rate rhythm regular. EXTREMITY: 1+ bilateral lower extremity edema. left arm AV fistula with thrill and bruit, large hematoma around. NEURO: speech fluent. PSYCHIATRY: Normal mood and judgment Family History Asthma Cancer SISTER (Breast cancer) Chronic kidney disease MOTHER Diabetes mellitus FATHER Heart disease FATHER Hypertension FATHER MOTHER Kidney disease Kidney stones Stroke Mother - CKD Social History Smoking Status: Never smoker Drug Use: none Marital Status: Housing Status: lives with family Occupation: retired . Retired. Never a smoker. Laboratory Results Past 24 Hours 01/19/17 06:28 Test 01/18/17 11:27 01/18/17 13:58 01/18/17 16:38 01/18/17 20:05 Bedside Glucose 137 mg/dl (70-90) 169 mg/dl (70-90) 200 mg/dl (70-90) Activated Partial Thromboplast Time 61.0 SECONDS (21.0-31.0) Partial Thromboplastin Ratio 2.3 Test 01/19/17 06:28 01/19/17 06:52 Red Blood Count 2.56 M/uL (4.2-5.4) Mean Corpuscular Volume 100.8 fL (80-100) Mean Corpuscular Hemoglobin 32.0 pg (25-34) Mean Corpuscular Hemoglobin Concent 31.8 g/dl (32-36) RDW Standard Deviation 59.5 fL (36.4-46.3) RDW Coefficient of Variation 16.3 % (11.5-14.5) Mean Platelet Volume 9.9 fL (7.4-10.4) Activated Partial Thromboplast Time 46.6 SECONDS (21.0-31.0) Partial Thromboplastin Ratio 1.8 Bedside Glucose 131 mg/dl (70-90) Allergies Coded Allergies: No Known Allergies (Unverified , 01/11/17) Medications Current Inpatient Medications Medications (Trade) Dose Ordered Sig/Janeth Route Start Time Stop Time Status Last Admin Dose Admin Allopurinol (Zyloprim Tab) 50 mg QAM PO 01/11/17 09:00 02/10/17 08:59 01/18/17 09:18 50 MG Amiodarone HCl (Cordarone Tab) 200 mg QAM PO 01/11/17 09:00 02/10/17 08:59 01/19/17 09:17 200 MG Clopidogrel Bisulfate (plAVix TAB) 75 mg HS PO 01/11/17 21:00 02/10/17 20:59 01/18/17 21:26 75 MG Hydrocodone Bit/ Homatropine Methylb (Hycodan Syrup) 0.2 ml Q4 PRN PO 01/11/17 03:15 01/25/17 03:14 Multivitamins (Multivitamin Tab) 2 tab QAM PO 01/11/17 09:00 02/10/17 08:59 01/18/17 09:17 2 TAB Pantoprazole Sodium (Protonix Tab) 40 mg QAM PO 01/11/17 09:00 02/10/17 08:59 01/19/17 09:17 40 MG Rosuvastatin Calcium (Crestor Tab) 10 mg HS PO 01/11/17 21:00 02/10/17 20:59 01/18/17 21:25 10 MG Senna/Docusate Sodium (Senokot S Tab) 1 tab BID PO 01/11/17 09:00 02/10/17 08:59 01/18/17 21:27 1 TAB Sevelamer HCl (Renagel Tab) 800 mg TIDM PO 01/11/17 07:30 02/10/17 07:29 01/18/17 16:39 800 MG Insulin Aspart (novoLOG ASPART) SLIDING SCALE If C... ACHS SC 01/11/17 16:15 02/11/17 16:14 01/18/17 21:30 1 UNITS Glucose (Glucose 40% Gel) 15-30 GRAMS 15 GRAMS... UD PRN PO 01/11/17 12:45 02/10/17 12:44 Glucose (Glucose Chew Tab) 4-8 Tablets 4 Tabl... UD PRN PO 01/11/17 12:45 02/10/17 12:44 Dextrose (Dextrose 50% 50ML Syringe) 25-50ML OF 50% DW IV FOR... UD PRN IV 01/11/17 12:45 02/10/17 12:44 01/11/17 15:05 25 ML Glucagon (Glucagon Inj) 1 mg UD PRN SQ 01/11/17 12:45 02/10/17 12:44 Nitroglycerin 0.5 inch 0.5 inch Q6H EXT 01/11/17 14:00 02/10/17 12:44 01/19/17 02:11 0.5 INCH Heparin Sodium/ Dextrose (Heparin 25,000 Unit/500ml D5W) 500 ml @ 17 mls/hr Q24H PRN IV 01/12/17 13:00 02/11/17 12:59 01/18/17 21:21 17 MLS/HR Ondansetron HCl (Zofran Inj) 4 mg Q8H PRN IV 01/12/17 18:00 02/11/17 17:59 01/18/17 07:21 4 MG Acetaminophen (Tylenol Tab) 650 mg Q6H PRN PO 01/14/17 01:15 02/13/17 01:14 01/16/17 08:54 650 MG Polyethylene (Miralax Powder Packet) 17 gm BID PO 01/14/17 21:00 02/13/17 20:59 01/18/17 21:26 17 GM Lidocaine/ Prilocaine (Emla 2.5% Crm) 1 ea UD EXT 01/16/17 10:15 02/15/17 10:14 Hydromorphone HCl (Dilaudid Tab) 1 mg Q4H PRN PO 01/17/17 13:00 01/31/17 12:59 Enteral Nutritional Formula 1 box 1 box TID PO 01/18/17 14:00 02/17/17 13:59 01/18/17 21:00 1 BOX Cefazolin Sodium (Ancef 1000mg/55 ml D5W) 55 ml @ 100 mls/hr PREOP IV 01/19/17 06:00 01/19/17 18:00 Albuterol Sulfate (Ventolin 0.083% 2.5MG/3ML Neb) 2.5 mg BIDR INH 01/18/17 20:00 02/17/17 19:59 01/19/17 07:31 2.5 MG Impression (1) DVT (deep venous thrombosis) (2) Pulmonary embolism (3) ESRD (end stage renal disease) on dialysis (4) Hypertension (5) Diabetes (6) Anemia Patient admitted for evaluation of dyspnea, found to have LLE DVT but no PE. She has ASCVD and has been on ASA & Plavix chronically as an outpatient. She has required transfusion w/ 4 U PRBC 09/19 due to LGI bleeding. She had infiltration and hematoma at AVF site on 01/15/17, now AVF resting. PMH - ESRD on HD MWF at [facility] (HD Rx: 4 hr 2K 2Ca F-160 EDW 74 kg Heparin 2000 bolus / 1000 hourly), ASCVD s/p CABG x 4 1996, cardiac cath 2006 complicated by pseudoaneurysm of the right femoral artery requiring emergency surgical repair, AODM, HTN, PVD w/ carotid stenosis, h/o nephrolithiasis, cholelithiasis, OA, LGI bleeding 09/19 requiring transfusion w/ 4 U PRBC Has steal syndrome , initially plan was to do bypass which now cancelled due to large hematoma at AVF site. Getting TDC on 01/19/17 Recommendations -- plan to rest AVF for few weeks before any further procedure. She will get TDC this afternoon and then HD. --coumadin hopefully can be started by tomorrow --will give 1 PRBC during HD --Continue on Nephrocaps daily, phosphate binder with meal and RANJAN during dialysis --Dilaudid to 1 milligram every 4 hours as needed for pain, use Emla cream at the AV fistula site before dialysis Will follow
--- NOTE | 2017-01-19 10:31 | Family Medicine Progress Note ---
Progress Note Date of Service January 19, 2017. Subjective Pt evaluation today including: conversation w/ patient, conversation w/ family , physical exam, chart review, lab review, review of studies, conversation w/ business development consultant Pain: 12/11 PO Intake: NPO Patient was actually being assessed for surgery during the interview. Because the patient had such swelling around the fistula site it was decided to defer the DRIL and place a perm cath. Patient was agreeable to this. States she is feeling congested and looking forward to getting her dialysis today Sari her daughter was present for this interaction and questions were addressed Constitutional: No fever Eyes: No worsening of vision ENT: No hearing loss Respiratory: + dyspnea at rest, + shortness of breath, No cough, No dyspnea on exertion, No sputum, No wheezing Cardiovascular: No chest pain Abdomen: No diarrhea, No nausea, No pain, No vomiting Musculoskeletal: + muscle pain (around the fistula site), + swelling, No joint pain Neurologic: + balance problems, + weakness Heme: + abnormal bleeding/bruising Endo: + fatigue Skin: No rash Medications Medications Administered Medications (Trade) Dose Ordered Sig/Janeth Route Start Time Stop Time Status Last Admin Dose Admin Allopurinol (Zyloprim Tab) 50 mg QAM PO 01/11/17 09:00 02/10/17 08:59 01/18/17 09:18 50 MG Amiodarone HCl (Cordarone Tab) 200 mg QAM PO 01/11/17 09:00 02/10/17 08:59 01/19/17 09:17 200 MG Aspirin (Ecotrin Tab) 81 mg HS PO 01/11/17 21:00 01/12/17 09:49 DC 01/11/17 20:23 81 MG Clopidogrel Bisulfate (plAVix TAB) 75 mg HS PO 01/11/17 21:00 02/10/17 20:59 01/18/17 21:26 75 MG Insulin Human NPH (novoLIN-N NPH) 10 units QAM SQ 01/11/17 09:00 01/11/17 12:53 DC 01/11/17 08:22 10 UNITS Multivitamins (Multivitamin Tab) 2 tab QAM PO 01/11/17 09:00 02/10/17 08:59 01/18/17 09:17 2 TAB Pantoprazole Sodium (Protonix Tab) 40 mg QAM PO 01/11/17 09:00 02/10/17 08:59 01/19/17 09:17 40 MG Rosuvastatin Calcium (Crestor Tab) 10 mg HS PO 01/11/17 21:00 02/10/17 20:59 01/18/17 21:25 10 MG Senna/Docusate Sodium (Senokot S Tab) 1 tab BID PO 01/11/17 09:00 02/10/17 08:59 01/18/17 21:27 1 TAB Sevelamer HCl (Renagel Tab) 800 mg TIDM PO 01/11/17 07:30 02/10/17 07:29 01/18/17 16:39 800 MG Dextrose (Dextrose 50% 50ML Syringe) 25-50ML OF 50% DW IV FOR... UD PRN IV 01/11/17 04:15 01/11/17 12:53 DC 01/11/17 11:52 25 ML Heparin Sodium (Porcine) 1 ea 1 ea TODAY@0600 N/A 01/12/17 06:00 01/12/17 18:00 DC 01/12/17 05:42 1 EA Epoetin Joshua/ Syringe (Procrit Inj/ Syringe) 0.4 ml @ 1 mls/min TODAY@0600 IV. 01/12/17 06:00 01/12/17 18:00 DC 01/12/17 15:50 1 MLS/MIN Nitroglycerin (Nitrostat Tab) 0.4 mg STK-MED ONCE .ROUTE 01/11/17 11:49 01/11/17 11:50 DC 01/11/17 11:51 0.4 MG Insulin Aspart (novoLOG ASPART) SLIDING SCALE If C... ACHS SC 01/11/17 16:15 02/11/17 16:14 01/18/17 21:30 1 UNITS Miscellaneous Information (Dc All Previously Ordered Diabetes Meds) 1 ea TODAY@1300 ONCE N/A 01/11/17 13:00 01/11/17 13:01 DC 01/11/17 17:28 1 EA Dextrose (Dextrose 50% 50ML Syringe) 25-50ML OF 50% DW IV FOR... UD PRN IV 01/11/17 12:45 02/10/17 12:44 01/11/17 15:05 25 ML Nitroglycerin 0.5 inch 0.5 inch Q6H EXT 01/11/17 14:00 02/10/17 12:44 01/19/17 02:11 0.5 INCH Dextrose (D5W 1000ml) 1,000 ml @ 50 mls/hr Q20H IV 01/11/17 15:45 01/12/17 15:12 DC 01/12/17 11:47 50 MLS/HR Enteral Nutritional Formula 1 can 1 can TID PO 01/11/17 17:30 01/12/17 14:51 DC 01/11/17 20:20 1 CAN Heparin Sodium/ Dextrose (Heparin 25,000 Unit/500ml D5W) 500 ml @ 17 mls/hr Q24H PRN IV 01/12/17 13:00 02/11/17 12:59 Future Hold 01/18/17 21:21 17 MLS/HR Paricalcitol (Zemplar Inj) 3 mcg 1030 ONCE IV. 01/12/17 10:30 01/12/17 10:31 DC 01/12/17 15:51 3 MCG Albuterol Sulfate (Ventolin 0.083% 2.5MG/3ML Neb) 2.5 mg Q4R INH 01/12/17 16:00 01/18/17 15:24 DC 01/18/17 07:09 2.5 MG Enteral Nutritional Formula (Boost Breeze Nutritional Drink) 1 box BIDM PO 01/12/17 16:45 01/18/17 11:55 DC 01/17/17 16:45 1 BOX Ondansetron HCl 4 mg 4 mg Q8H PRN IV 01/12/17 18:00 02/11/17 17:59 01/18/17 07:21 4 MG Heparin Sodium (Porcine) 4500 unit/Syringe 4.5 ml @ 10 mls/min TODAY@0000 ONCE IV 01/13/17 00:00 01/13/17 00:01 DC 01/13/17 00:19 10 MLS/MIN Heparin Sodium (Porcine)/Syringe (Heparin Iv Bolus/Syringe) 3 ml @ 10 mls/min NOW ONCE IV 01/13/17 15:15 01/13/17 15:16 DC 01/13/17 17:02 10 MLS/MIN Acetaminophen (Tylenol Tab) 650 mg Q6H PRN PO 01/14/17 01:15 02/13/17 01:14 01/16/17 08:54 650 MG Potassium Chloride (Klor-Con M10) 20 meq NOW ONCE PO 01/14/17 09:45 01/14/17 09:46 DC 01/14/17 10:30 20 MEQ Polyethylene (Miralax Powder Packet) 17 gm BID PO 01/14/17 21:00 02/13/17 20:59 01/18/17 21:26 17 GM Polyethylene 17 gm 17 gm NOW ONCE PO 01/14/17 10:00 01/14/17 10:01 DC 01/14/17 10:33 17 GM Heparin Sodium (Porcine)/Syringe (Heparin Iv Bolus/Syringe) 4.5 ml @ 10 mls/min TODAY@1015 IV 01/15/17 10:15 01/15/17 11:30 DC 01/15/17 11:04 10 MLS/MIN Morphine Sulfate (MoRPHine SULFATE INJ) 2 mg NOW STAT IV 01/15/17 17:44 01/15/17 17:48 DC 01/15/17 18:17 2 MG Hydromorphone HCl (Dilaudid Tab) 2 mg Q4WK PRN PO 01/16/17 10:15 01/17/17 12:11 DC 01/17/17 08:05 2 MG Hydromorphone HCl (Dilaudid Tab) 2 mg TODAY@1015 PO 01/16/17 10:15 01/16/17 11:00 DC 01/16/17 10:23 2 MG Enteral Nutritional Formula (Boost Breeze Nutritional Drink) 1 box TID PO 01/18/17 14:00 02/17/17 13:59 01/18/17 21:00 1 BOX Albuterol Sulfate (Ventolin 0.083% 2.5MG/3ML Neb) 2.5 mg BIDR INH 01/18/17 20:00 02/17/17 19:59 01/19/17 07:31 2.5 MG Objective Vital Signs Date Time Temp Pulse Resp B/P Pulse Ox O2 Delivery O2 Flow Rate FiO2 01/19/17 07:55 Nasal Cannula 2.0 01/19/17 07:30 36.4 74 20 99/64 99 Nasal Cannula 2.0 01/19/17 07:13 71 16 96 Nasal Cannula 2.0 01/19/17 04:22 36.9 70 18 116/70 99 Nasal Cannula 2.0 01/19/17 04:00 Nasal Cannula 2.0 01/19/17 00:39 Nasal Cannula 2.0 01/19/17 00:00 36.9 72 20 100/43 98 Nasal Cannula 2.0 01/18/17 20:00 97 Nasal Cannula 2.0 Humidified Oxygen 01/18/17 19:57 36.3 67 18 102/62 97 Nasal Cannula 2.0 Humidified Oxygen 01/18/17 19:17 70 16 98 Nasal Cannula 2.0 01/18/17 16:00 Nasal Cannula 3.0 01/18/17 15:49 36.5 68 20 100/57 99 Room Air 2.0 01/18/17 12:00 Nasal Cannula 3.0 01/18/17 11:29 36.4 36 20 94/39 98 Nasal Cannula 2.0 Physical Exam General Appearance: no apparent distress Eyes: normal inspection ENT: normal ENT inspection Neck: + JVD (slight) Respiratory/Chest: + decreased breath sounds (bilat bases with occasional crackle) Cardiovascular: regular rate, rhythm, + systolic murmur (3/6) Abdomen: normal bowel sounds, non tender, soft Extremities: + pertinent finding (significant swelling and ecchymosis around the fistula site, bruit can still be palpated) Neurologic/Psychiatric: alert, normal mood/affect, oriented x 3 Skin: normal color Lymphatic: no adenopathy Laboratory Results Results Past 24 Hours Test 01/18/17 11:27 01/18/17 13:58 01/18/17 16:38 01/18/17 20:05 Range/Units Bedside Glucose 137 169 200 70-90 mg/dl Activated Partial Thromboplast Time 61.0 21.0-31.0 SECONDS Partial Thromboplastin Ratio 2.3 Test 01/19/17 06:28 01/19/17 06:52 Range/Units White Blood Count 7.99 4.8-10.8 K/uL Red Blood Count 2.56 4.2-5.4 M/uL Hemoglobin 8.2 12.0-16.0 g/dL Hematocrit 25.8 37-47 % Mean Corpuscular Volume 100.8 80-100 fL Mean Corpuscular Hemoglobin 32.0 25-34 pg Mean Corpuscular Hemoglobin Concent 31.8 32-36 g/dl RDW Standard Deviation 59.5 36.4-46.3 fL RDW Coefficient of Variation 16.3 11.5-14.5 % Platelet Count 162 130-400 K/uL Mean Platelet Volume 9.9 7.4-10.4 fL Activated Partial Thromboplast Time 46.6 21.0-31.0 SECONDS Partial Thromboplastin Ratio 1.8 Bedside Glucose 131 70-90 mg/dl Assessment and Plan 86 year old female with multiple co-morbidities including ESRD requiring dialysis, severe history of GI bleeding presents with chest pain with acute DVT left leg. The plan is for the patient to be started on coumadin with a heparin bridge instead of an IVC filter. However, she had been suffering from left UE pain. Since there was concern for subclavian steal syndrome she was evaluated by vascular surgery. Plan was for a DRIL however because of the significant swelling a perm cath was placed and the DRIL procedure will be completed in the future. DVT-Acute, POA, Anemia of CKD, h/o GI bleeding -continue heparin drip now that her tunneled IJ catheter has been removed by Dr Rocha -Start Coumadin if no evidence of GI bleeding and potentially will be started tomorrow -Would favor keeping her here with heparin as a bridge for close observation given recent GI bleed, aware of the potential length of stay -Discussed with cardiology Dr. Hernandez and will permanently discontinue her aspirin to avoid triple therapy-we'll continue Plavix and Coumadin only - discussed potential as a surgical candidate and does feel like she is for this procedure -RANJAN to be given with HD Left upper extremity pain, concern for subclavian steal syndrome - vascular surgery as noted above - plan is for perm cath today and DRIL in the future - pain control Chest pain/Coronary artery disease / LVEF approximately 50% / Moderate aortic stenosis / Moderate mitral regurgitation/demand ischemia Echo: There is mild concentric left ventricular hypertrophy. * Left ventricular systolic function is low normal. * There are regional wall motion abnormalities as specified. * The left atrium is severely dilated. * The right atrium is mildly dilated. * Moderate valvular aortic stenosis. * There is moderate mitral regurgitation. * Compared to a study from 06/2016, the trans-aortic velocities are slightly higher. Otherwise minimal change -Continue Nitropaste -Appreciate cardiology consult - Continue plavix and discontinue aspirin due to risk of bleeding on triple therapy as above, continue rosuvastatin. Nonsustained VT - patient will remain on tele, no change in medications at this time - [facility] aware Paroxysmal atrial fibrillation - continue amiodarone -Starting anticoagulation as above ESRD on dialysis-stable. Left Arm pain may indicate steal syndrome as per Nephro - consult nephrology appreciated -Continue hemodialysis here Sunday -Renally dose all medications -Vascular consulted by Nephro for AV fistulogram today -continue binders, multivitamin Anemia secondary to ESRD - will be receiving a transfusion today, consent obtained [id number] recurrent episodes of hypoglycemia upon admission, hemoglobin A1c 5.4% here which is normal. Improved glucose now -Discontinue home NPH - BSG ACHS -Consideration should be made permanently discontinue her insulin upon discharge Code - DNR Disposition home after d/c and coumadin bridge complete Resident Physician Supervision Note: I interviewed and examined the patient. Discussed with Dr. Ellis and agree with findings and plan as documented in the note. Any exceptions or clarifications are listed here: None Documented By: Markos Sena L arm bruised too much to do procedure - will have to wait, to have alternate HD access then HD and 1 unit PRBC no other new complaints, ros otherwise negative except for as above vitals noted nad breathing unlabored L arm quite bruised steal syndrome - for DRIL but not until bruising goes down ESRD - for alternate access then HD anemia - agree w transfusion due to low Hgb, low likelihood of her bone marrow responding well w ESRD, low reserve given bleeding risk, and vascular disease otherwise as above Continued [facility] stay due to: other Discharge planning: uncertain
[2017-01-19] MEDS ORDERED: HEPARIN SOD (PORCINE) 5000 UNIT/ML 1 ML VIAL ONE (11:55)
[2017-01-19] MEDS ORDERED: MIDAZOLAM HCL 1 MG/ML 2ML VIAL ONE (11:55)
[2017-01-19] MEDS ORDERED: FENTANYL CITRATE INJ 50 MCG/1 ML 2 ML VIAL ONE (11:55)
[2017-01-19] MEDS: NITROGLYCERIN 2% OINTMENT 30GM TUBE EXT SCH ×2 (12:00→18:00)
[2017-01-19] MEDS ORDERED: MIDAZOLAM HCL 1 MG/ML 2ML VIAL IV ONE (12:27)
[2017-01-19] MEDS ORDERED: FENTANYL CITRATE INJ 50 MCG/1 ML 2 ML VIAL IV ONE (12:27)
[2017-01-19] MEDS ORDERED: LIDOCAINE HCL 1% 20 ML VIAL SQ ONE (12:41)
[2017-01-19] MEDS ORDERED: HEPARIN SOD (PORCINE) 5000 UNIT/ML 1 ML VIAL IV ONE (12:41)
--- NOTE | 2017-01-19 13:03 | Procedure Note ---
Post-Moderate Sedation Plan General Date of Moderate Sedation January 19, 2017. Vital Signs: Vital Signs Past 12 Hours Date Time Temp Pulse Resp B/P Pulse Ox O2 Delivery O2 Flow Rate FiO2 01/19/17 12:02 36.7 36 20 99/37 98 Nasal Cannula 2.0 01/19/17 11:24 36.7 36 20 99/37 98 Nasal Cannula 2.0 01/19/17 07:55 Nasal Cannula 2.0 01/19/17 07:30 36.4 74 20 99/64 99 Nasal Cannula 2.0 01/19/17 07:13 71 16 96 Nasal Cannula 2.0 01/19/17 04:22 36.9 70 18 116/70 99 Nasal Cannula 2.0 01/19/17 04:00 Nasal Cannula 2.0 Review - Discharge Plan Post Moderate Sedation Plan: On clinical assessment, the patient appears to have tolerated the conscious sedation without complications. Patient is recovering as anticipated. Patient will continue to be monitored by nursing and may be discharged when conscious sedation discharge criteria are met.
--- NOTE | 2017-01-19 13:04 | [facility] Post Operative Brief Note ---
Immediate Operative Summary Operative Date January 19, 2017. Pre-Operative Diagnosis End Stage Renal Disease Post-Operative Diagnosis same Procedure(s) Performed Insertion of Perm Catheter, Right Internal Jugular Approach, Ultrasound Localization of Right Internal Jugular Vein, Fluoroscopy for positioning, Moderate sedation ( 1228- 1301) Surgeon Dr. Rocha Chicken Sexer Surgeon(s) None Estimated Blood Loss 10 Findings tip in distal SVC Specimens None Anesthesia Local with conscious sedation Complication(s) None Disposition
--- NOTE | 2017-01-19 13:07 | Progress Note ---
Progress Note Date of Service January 19, 2017. Progress Note Will rest the fistula and see patient in the office in two weeks. We will schedule the DRIL at that time. Thank you very much for letting me participate in the care of this patient.
--- NOTE | 2017-01-19 13:55 | DIAGNOSTIC IMAGING REPORT ---
DATE OF PROCEDURE: 01/19/2017 PREOPERATIVE DIAGNOSIS: Endstage renal disease. POSTOPERATIVE DIAGNOSIS: Same. PROCEDURE: Insertion of right internal jugular vein PermCath 19 cm in length, ultrasound localization of the right internal jugular vein, fluoroscopic imaging for positioning, conscious sedation 24 minutes. SURGEON: Dr. Rocha. ANESTHETIC: Local with conscious sedation. PROCEDURE INDICATIONS: This is an 86-year-old female who infiltrated in her left upper arm fistula. There was a large hematoma present. The fistula is patent but cannot be felt to use as an access. PermCath was recommended to rest of the fistula. The patient understood the risks, options, benefits and agreed to have this procedure. The patient was taken to the angio suite and placed in supine position. After right side of the neck and chest wall were prepped and draped in a sterile manner, local anesthetic was administered. Using ultrasound, the right internal jugular vein was seen. It was partially thrombosed, but did have a small patent lumen present. Under ultrasound guidance this lumen was punctured. The wire was passed centrally. A tunnel was then made from a stab wound in the anterior chest wall. A 19 cm PermCath was passed from the stab wound in the chest wall and brought out through the puncture site in the neck. The puncture site was then dilated until 14 Kiswahili peel away sheath was inserted. The 19 cm PermCath was then inserted through the peel away sheath and peel away sheath removed. Catheter tip was in the distal superior vena cava. It did have a nice curve at the end of the procedure. Both ports aspirated and flushed very easily. The catheter was sutured in place using nylon sutures. The puncture site in the neck was also closed using interrupted nylon sutures. Sterile dressings were applied to the wound. The patient left the angio suite in good condition and tolerated the procedure well. Prior to leaving both ports were instilled with heparin.
[2017-01-19] MEDS: HEPARIN 25,000 UNIT/500ML D5W 500 ML IV PRN (16:42)
[2017-01-19] MEDS: ROSUVASTATIN CALCIUM 10 MG TAB PO SCH (21:23)
[2017-01-19] MEDS: CLOPIDOGREL BISULFATE 75 MG TAB PO SCH (21:23)
[2017-01-19 22:34] LABS: PARTIAL THROMBOPLASTIN RATIO 2.4
[2017-01-20] VITALS (13 sets, daily range): BP systolic 95–114; BP diastolic 43–70; PULSE 60–76; TEMP 36.3–37.2; O2SAT 94–100
[2017-01-20] MEDS: NITROGLYCERIN 2% OINTMENT 30GM TUBE EXT SCH ×5 (00:31→23:54)
[2017-01-20 05:31] LABS: BASO % 0.3 %; BASO ABS # 0.02 K/uL (0-0.2); COMPLETE YES; EOS % 0.8 %; HEMATOCRIT 27.9 % (37-47); IG% 0.2 %; LYMPH ABS # 1.16 K/uL (1.2-3.4); MEAN CELL VOLUME 98.2 fL (80-100); MEAN CORPUSCULAR HGB CONC 32.6 g/dl (32-36); MEAN PLATELET VOLUME 10.2 fL (7.4-10.4); MONO % 18.6 %; NEUT % 62.1 %; PLATELET COUNT 136 K/uL (130-400); RED BLOOD COUNT 2.84 M/uL (4.2-5.4); WHITE BLOOD COUNT 6.46 K/uL (4.8-10.8)
[2017-01-20 05:46] LABS: PARTIAL THROMBOPLASTIN RATIO 1.8
[2017-01-20 05:53] LABS: CALCIUM 7.6 mg/dl (8.5-10.1); CREATININE 2.6 mg/dl (0.60-1.20); MAGNESIUM 2.2 mg/dl (1.8-2.4); PHOSPHORUS 4.5 mg/dl (2.5-4.9); POTASSIUM 3.9 mmol/L (3.5-5.1)
[2017-01-20] MEDS: INSULIN ASPART 100 UNITS/ML 3 ML PEN SC SCH ×4 (07:00→21:00)
[2017-01-20] MEDS: ALBUTEROL 0.083% NEBU SOLN 3 ML VIAL INH SCH ×2 (07:30→19:26)
[2017-01-20] MEDS: POLYETHYLENE (MIRALAX) 17 GM PACK PO SCH ×2 (08:15→21:00)
[2017-01-20] MEDS: ALLOPURINOL 100 MG TAB PO SCH (08:15)
[2017-01-20] MEDS: SEVELAMER HYDROCH 800 MG TAB PO SCH ×3 (08:15→17:19)
[2017-01-20] MEDS: MULTIVITAMIN TAB PO SCH (08:15)
[2017-01-20] MEDS: BOOST BREEZE NUTRITION DRINK 1 BOX PO SCH ×3 (08:16→21:00)
[2017-01-20] MEDS: HEPARIN 25,000 UNIT/500ML D5W 500 ML IV PRN (08:22)
--- NOTE | 2017-01-20 10:02 | Nephrology Progress Note ---
Nephrology Progress Note Date of Service January 20, 2017. Chief Complaint To provide inpatient HD for this patient with ESRD admitted with pleuritic CP and RLE DVT Subjective Ms. Rahman was seen & examined in the PCU this morning. She had her IJ THC removed. Unfortunately her L upper arm AVF infiltrated and she developed left hand pain. She was evaluated by vascular surgery. It was recommended that the AVF be rested until the L upper arm hematoma resolves. She had a new R IJ THC placed yesterday followed by HD and transfusion of 1 U PRBC. HD RN notes reviewed this am. There were no complications during HD yesterday. Ms. Rahman currently denies fever, angina or dyspnea. She is reluctant to pursue DRIL procedure for her L upper arm AVF. She does not feel that her symptoms warrant further intervention. Ms. Rahman indicates that she will start warfarin today due to her LLE DVT. Review of Systems Constitutional: No fever Cardiovascular: No chest pain Respiratory: No dyspnea at rest Abdomen: No nausea, No pain, No vomiting Extremities: + problem reported (LLE remains swollen) A complete review of systems was performed. Pertinent positives are noted above. All other systems are negative. Vital Signs Last 8 Hrs Date Time Temp Pulse Resp B/P Pulse Ox O2 Delivery O2 Flow Rate FiO2 01/20/17 07:39 36.7 74 18 105/60 95 3.0 01/20/17 07:12 71 16 98 Nasal Cannula 2.0 01/20/17 04:34 37.2 72 20 95/43 94 Nasal Cannula 2.0 01/20/17 04:32 Nasal Cannula 2.0 01/20/17 03:28 37.2 72 20 95/43 94 Nasal Cannula 2.0 I & O 24-Hour Column 01/20/17 08:00 Intake Total 428 ml Output Total 1775 ml Balance -1347 ml Last Recorded Weight Weight (Kilograms): 78.000 Physical Exam General Appearance: no apparent distress Head: normocephalic, atraumatic Eyes: PERRL, EOMI Neck: supple, no adenopathy, + pertinent finding (R IJ THC site without erythema ) Respiratory/Chest: lungs clear Cardiovascular: regular rate, rhythm Abdomen/GI: normal bowel sounds, non tender, soft Extremities/Musculoskelatal: + pertinent finding (LLE remains swollen. LUE AVF + bruit w/ large surrounding hematoma) Neurologic/Psych: alert, oriented x 3 Family History Asthma Cancer SISTER (Breast cancer) Chronic kidney disease MOTHER Diabetes mellitus FATHER Heart disease FATHER Hypertension FATHER MOTHER Kidney disease Kidney stones Stroke Mother - CKD Social History Smoking Status: Never smoker Drug Use: none Marital Status: Housing Status: lives with family Occupation: retired . Retired. Never a smoker. Laboratory Results Past 24 Hours 01/20/17 05:20 Red Blood Count 2.84, Mean Corpuscular Volume 98.2, Mean Corpuscular Hemoglobin 32.0, Mean Corpuscular Hemoglobin Concent 32.6, Mean Platelet Volume 10.2, Neutrophils (%) (Auto) 62.1, Lymphocytes (%) (Auto) 18.0, Monocytes (%) (Auto) 18.6, Eosinophils (%) (Auto) 0.8, Basophils (%) (Auto) 0.3, Neutrophils # (Auto ) 4.02, Lymphocytes # (Auto) 1.16, Monocytes # (Auto) 1.20, Eosinophils # (Auto ) 0.05, Basophils # (Auto) 0.02 01/20/17 05:20 Test 01/19/17 19:26 01/19/17 20:55 01/19/17 22:04 01/20/17 05:20 Bedside Glucose 85 mg/dl (70-90) 134 mg/dl (70-90) Activated Partial Thromboplast Time 61.3 SECONDS (21.0-31.0) 47.8 SECONDS (21.0-31.0) Partial Thromboplastin Ratio 2.4 1.8 White Blood Count 6.46 K/uL (4.8-10.8) Red Blood Count 2.84 M/uL (4.2-5.4) Hemoglobin 9.1 g/dL (12.0-16.0) Hematocrit 27.9 % (37-47) Mean Corpuscular Volume 98.2 fL (80-100) Mean Corpuscular Hemoglobin 32.0 pg (25-34) Mean Corpuscular Hemoglobin Concent 32.6 g/dl (32-36) Platelet Count 136 K/uL (130-400) Mean Platelet Volume 10.2 fL (7.4-10.4) Neutrophils (%) (Auto) 62.1 % Lymphocytes (%) (Auto) 18.0 % Monocytes (%) (Auto) 18.6 % Eosinophils (%) (Auto) 0.8 % Basophils (%) (Auto) 0.3 % Neutrophils # (Auto) 4.02 K/uL (1.4-6.5) Lymphocytes # (Auto) 1.16 K/uL (1.2-3.4) Monocytes # (Auto) 1.20 K/uL (0.11-0.59) Eosinophils # (Auto) 0.05 K/uL (0-0.5) Basophils # (Auto) 0.02 K/uL (0-0.2) RDW Standard Deviation 64.6 fL (36.4-46.3) RDW Coefficient of Variation 18.2 % (11.5-14.5) Immature Granulocyte % (Auto) 0.2 % Immature Granulocyte # (Auto) 0.01 K/uL (0.00-0.02) Anion Gap 7.0 mmol/L (3-11) Est Creatinine Clear Calc Drug Dose 16.9 ml/min Estimated GFR () 18.7 Estimated GFR (Non- 16.2 BUN/Creatinine Ratio 5.0 (10-20) Calcium Level 7.6 mg/dl (8.5-10.1) Phosphorus Level 4.5 mg/dl (2.5-4.9) Magnesium Level 2.2 mg/dl (1.8-2.4) Test 01/20/17 06:41 Bedside Glucose 118 mg/dl (70-90) Allergies Coded Allergies: No Known Allergies (Unverified , 01/11/17) Medications Current Inpatient Medications Medications (Trade) Dose Ordered Sig/Janeth Route Start Time Stop Time Status Last Admin Dose Admin Allopurinol (Zyloprim Tab) 50 mg QAM PO 01/11/17 09:00 02/10/17 08:59 01/20/17 08:15 50 MG Amiodarone HCl (Cordarone Tab) 200 mg QAM PO 01/11/17 09:00 02/10/17 08:59 01/19/17 09:17 200 MG Clopidogrel Bisulfate (plAVix TAB) 75 mg HS PO 01/11/17 21:00 02/10/17 20:59 01/19/17 21:23 75 MG Hydrocodone Bit/ Homatropine Methylb (Hycodan Syrup) 0.2 ml Q4 PRN PO 01/11/17 03:15 01/25/17 03:14 Multivitamins (Multivitamin Tab) 2 tab QAM PO 01/11/17 09:00 02/10/17 08:59 01/20/17 08:15 2 TAB Pantoprazole Sodium (Protonix Tab) 40 mg QAM PO 01/11/17 09:00 02/10/17 08:59 01/19/17 09:17 40 MG Rosuvastatin Calcium (Crestor Tab) 10 mg HS PO 01/11/17 21:00 02/10/17 20:59 01/19/17 21:23 10 MG Senna/Docusate Sodium (Senokot S Tab) 1 tab BID PO 01/11/17 09:00 02/10/17 08:59 01/19/17 20:55 1 TAB Sevelamer HCl (Renagel Tab) 800 mg TIDM PO 01/11/17 07:30 02/10/17 07:29 01/20/17 08:15 800 MG Insulin Aspart (novoLOG ASPART) SLIDING SCALE If C... ACHS SC 01/11/17 16:15 02/11/17 16:14 01/18/17 21:30 1 UNITS Glucose (Glucose 40% Gel) 15-30 GRAMS 15 GRAMS... UD PRN PO 01/11/17 12:45 02/10/17 12:44 Glucose (Glucose Chew Tab) 4-8 Tablets 4 Tabl... UD PRN PO 01/11/17 12:45 02/10/17 12:44 Dextrose (Dextrose 50% 50ML Syringe) 25-50ML OF 50% DW IV FOR... UD PRN IV 01/11/17 12:45 02/10/17 12:44 01/11/17 15:05 25 ML Glucagon (Glucagon Inj) 1 mg UD PRN SQ 01/11/17 12:45 02/10/17 12:44 Ondansetron HCl (Zofran Inj) 4 mg Q8H PRN IV 01/12/17 18:00 02/11/17 17:59 01/18/17 07:21 4 MG Acetaminophen (Tylenol Tab) 650 mg Q6H PRN PO 01/14/17 01:15 02/13/17 01:14 01/16/17 08:54 650 MG Polyethylene (Miralax Powder Packet) 17 gm BID PO 01/14/17 21:00 02/13/17 20:59 01/19/17 20:54 17 GM Lidocaine/ Prilocaine (Emla 2.5% Crm) 1 ea UD EXT 01/16/17 10:15 02/15/17 10:14 Hydromorphone HCl (Dilaudid Tab) 1 mg Q4H PRN PO 01/17/17 13:00 01/31/17 12:59 01/20/17 02:43 1 MG Enteral Nutritional Formula (Boost Breeze Nutritional Drink) 1 box TID PO 01/18/17 14:00 02/17/17 13:59 01/18/17 21:00 1 BOX Albuterol Sulfate (Ventolin 0.083% 2.5MG/3ML Neb) 2.5 mg BIDR INH 01/18/17 20:00 02/17/17 19:59 01/20/17 07:30 2.5 MG Nitroglycerin 0.5 inch 0.5 inch Q6H EXT 01/19/17 12:00 02/18/17 11:59 01/20/17 06:29 0.5 INCH Heparin Sodium/ Dextrose (Heparin 25,000 Unit/500ml D5W) 500 ml @ 17 mls/hr Q24H PRN IV 01/19/17 16:00 02/15/17 15:59 01/20/17 08:22 17 MLS/HR Impression (1) DVT (deep venous thrombosis) (2) ESRD (end stage renal disease) on dialysis (3) Hypertension (4) Diabetes (5) Anemia Patient admitted for evaluation of dyspnea, found to have LLE DVT but no PE. She has ASCVD and has been on ASA & Plavix chronically as an outpatient. She has required transfusion w/ 4 U PRBC 09/19 due to LGI bleeding. She had infiltration and hematoma at AVF site on 01/15/17 now resting AVF. PMH - ESRD on HD MWF at [facility] (HD Rx: 4 hr 2K 2Ca F-160 EDW 74 kg Heparin 2000 bolus / 1000 hourly), ASCVD s/p CABG x 4 1996, cardiac cath 2006 complicated by pseudoaneurysm of the right femoral artery requiring emergency surgical repair, AODM, HTN, PVD w/ carotid stenosis, h/o nephrolithiasis, cholelithiasis, OA, LGI bleeding 09/19 requiring transfusion w/ 4 U PRBC New R IJ THC placed 01/19/17 Recommendations END STAGE RENAL DISEASE: -- HD RN notes 01/19 reviewed this am. No complications during HD yesterday. 1 U PRBC transfused duing HD. Volume status and electrolyte balance are acceptable this am. No acute indication for HD today. Will monitor. -- AVF has + bruit. Patient has large surrounding hematoma. Will monitor clinically -- Discussed DRIL procedure w/ patient today. She understands the procedure but is uncertain whether her symptoms warrant intervention. Will await further vascular surgery input DVT: -- On heparin gtt. No active bleeding. Patient scheduled to start Warfarin today ANEMIA: -- Hgb improved to 9.1 following transfusion w/ 1 U PRBC yesterday -- Monitor H&H. -- Continue RANJAN w/ HD
[2017-01-20 11:33] LABS: INR 1.1 (0.9-1.1); PROTHROMBIN TIME (PATIENT) 11.9 SECONDS (9.0-12.0)
[2017-01-20] MEDS ORDERED: WARFARIN SOD 5 MG TAB PO ONE (11:45)
[2017-01-20] MEDS: AMIODARONE 200 MG TAB PO SCH (11:54)
[2017-01-20] MEDS: DOCUSATE SODIUM/SENNA 50/8.6MG TAB PO SCH ×2 (11:54→21:00)
[2017-01-20] MEDS: PANTOprazole SOD 40 MG TAB PO SCH (11:55)
--- NOTE | 2017-01-20 15:54 | Progress Note ---
Subjective Date of Service: January 20, 2017. Subjective Pt evaluation today including: conversation w/ patient, physical exam, chart review, lab review, review of studies, review of inpatient medication list Voiding: no voiding problems pt is seen and examined by me. pt has a poor appetite.Pt states that swelling in her left upper arm is slightly decreased, still feel pain in the left arm.S/ p 1 unit PRBC and HD as well as right IJ by Dr Rocha. Pt denies Cp, SOB, dizziness and palpitation. Problem List Medical Problems: (1) CHF (congestive heart failure) Status: Acute (2) Chronic kidney insufficiency Status: Acute (3) Chronic renal failure Status: Acute (4) Congestive heart failure Status: Acute (5) E16.2 Status: Acute (6) Elevated troponin Status: Acute (7) GI bleed Status: Acute (8) Hypotension Status: Acute (9) Left leg DVT Status: Acute (10) Pancytopenia Status: Acute (11) Pneumonia Status: Acute (12) Pulmonary edema Status: Acute (13) Respiratory distress Status: Acute (14) ST segment changes on electrocardiogram Status: Acute (15) Substernal precordial chest pain Status: Acute (16) Symptomatic anemia Status: Acute Review of Systems All Other Systems: Reviewed and Negative Medications Medications (Trade) Dose Ordered Sig/Janeth Route Start Time Stop Time Status Last Admin Dose Admin Heparin Sodium/ Dextrose (Heparin 25,000 Unit/500ml D5W) 500 ml @ 17 mls/hr Q24H PRN IV 01/19/17 16:00 02/15/17 15:59 01/20/17 08:22 17 MLS/HR Warfarin Sodium (Coumadin Tab) 5 mg NOW ONCE PO 01/20/17 11:45 01/20/17 12:04 DC 01/20/17 12:53 5 MG Objective Vital Signs Date Time Temp Pulse Resp B/P Pulse Ox O2 Delivery O2 Flow Rate FiO2 01/20/17 12:33 95 Nasal Cannula 2.0 01/20/17 11:17 36.7 60 16 104/53 98 Nasal Cannula 2.0 01/20/17 08:01 95 Nasal Cannula 2.0 01/20/17 07:39 36.7 74 18 105/60 95 3.0 01/20/17 07:12 71 16 98 Nasal Cannula 2.0 01/20/17 04:34 37.2 72 20 95/43 94 Nasal Cannula 2.0 01/20/17 04:32 Nasal Cannula 2.0 01/20/17 03:28 37.2 72 20 95/43 94 Nasal Cannula 2.0 01/20/17 00:45 37.0 71 19 111/64 98 Nasal Cannula 2.0 01/20/17 00:36 Nasal Cannula 2.0 01/19/17 23:20 37.0 71 19 111/64 98 Nasal Cannula 2.0 01/19/17 20:42 36.7 68 19 117/63 100 Nasal Cannula 3.0 01/19/17 20:29 Nasal Cannula 2.0 01/19/17 20:08 66 16 100 Nasal Cannula 3.0 01/19/17 19:23 36.7 68 19 117/63 100 Nasal Cannula 3.0 01/19/17 18:58 36.6 66 121/56 01/19/17 18:15 64 119/56 01/19/17 18:00 65 132/55 01/19/17 17:45 64 120/51 01/19/17 17:30 64 145/58 01/19/17 17:15 64 127/58 01/19/17 17:00 65 126/60 01/19/17 16:45 64 121/58 01/19/17 16:30 64 117/49 01/19/17 16:20 66 110/51 01/19/17 16:15 68 99/44 01/19/17 16:00 63 125/57 01/19/17 15:48 64 123/52 Physical Exam General Appearance: no apparent distress Neck: supple Respiratory/Chest: normal breath sounds, no respiratory distress Abdomen: normal bowel sounds, non tender, soft Extremities: normal range of motion, non-tender, no calf tenderness, + pertinent finding (swelling in the left upper arm at the Av fistula site however improved from yesterday as per patinet.) Neurologic/Psychiatric: alert, normal mood/affect, oriented x 3 Laboratory Results Last 24 Hours Test 01/19/17 19:26 01/19/17 20:55 01/19/17 22:04 01/20/17 05:20 Bedside Glucose 85 mg/dl 134 mg/dl Activated Partial Thromboplast Time 61.3 SECONDS 47.8 SECONDS Partial Thromboplastin Ratio 2.4 1.8 White Blood Count 6.46 K/uL Red Blood Count 2.84 M/uL Hemoglobin 9.1 g/dL Hematocrit 27.9 % Mean Corpuscular Volume 98.2 fL Mean Corpuscular Hemoglobin 32.0 pg Mean Corpuscular Hemoglobin Concent 32.6 g/dl Platelet Count 136 K/uL Mean Platelet Volume 10.2 fL Neutrophils (%) (Auto) 62.1 % Lymphocytes (%) (Auto) 18.0 % Monocytes (%) (Auto) 18.6 % Eosinophils (%) (Auto) 0.8 % Basophils (%) (Auto) 0.3 % Neutrophils # (Auto) 4.02 K/uL Lymphocytes # (Auto) 1.16 K/uL Monocytes # (Auto) 1.20 K/uL Eosinophils # (Auto) 0.05 K/uL Basophils # (Auto) 0.02 K/uL RDW Standard Deviation 64.6 fL RDW Coefficient of Variation 18.2 % Immature Granulocyte % (Auto) 0.2 % Immature Granulocyte # (Auto) 0.01 K/uL Sodium Level 140 mmol/L Potassium Level 3.9 mmol/L Chloride Level 99 mmol/L Carbon Dioxide Level 34 mmol/L Anion Gap 7.0 mmol/L Blood Urea Nitrogen 13 mg/dl Creatinine 2.60 mg/dl Est Creatinine Clear Calc Drug Dose 16.9 ml/min Estimated GFR () 18.7 Estimated GFR (Non- 16.2 BUN/Creatinine Ratio 5.0 Random Glucose 111 mg/dl Calcium Level 7.6 mg/dl Phosphorus Level 4.5 mg/dl Magnesium Level 2.2 mg/dl Test 01/20/17 06:41 01/20/17 11:15 01/20/17 11:46 Bedside Glucose 118 mg/dl 163 mg/dl Prothrombin Time 11.9 SECONDS Prothromb Time International Ratio 1.1 Assessment and Plan 86 year old female with multiple co-morbidities including ESRD requiring dialysis, severe history of GI bleeding presents with chest pain with acute DVT left leg. The plan is for the patient to be started on coumadin with a heparin bridge instead of an IVC filter. However, she had been suffering from left UE pain. Since there was concern for subclavian steal syndrome she was evaluated by vascular surgery. Plan was for a DRIL however because of the significant swelling a perm cath was placed and the DRIL procedure will be completed in the future. DVT-Acute, POA, Anemia of CKD, h/o GI bleeding -continue heparin drip for now we will start to bridge with coumadin, daily monitor pt/inr until therapeutic. that her tunneled IJ catheter has been removed by Dr Rocha and pt has received right IJ. Still large swelling at the fistula site. -Start Coumadin today, HGB improved to 9.1 after 1 unit PRBC with HD. No evidence of GI bleeding. -Would favor keeping her here with heparin as a bridge for close observation given recent GI bleed, aware of the potential length of stay -Discussed with cardiology Dr. Hernandez and will permanently discontinue her aspirin to avoid triple therapy-we'll continue Plavix and Coumadin only - discussed potential as a surgical candidate and does feel like she is for this procedure Left upper extremity pain, concern for subclavian steal syndrome - vascular surgery as noted above -S/P perm cath and DRIL in the future - pain control Chest pain/Coronary artery disease / LVEF approximately 50% / Moderate aortic stenosis / Moderate mitral regurgitation/demand ischemia Echo: There is mild concentric left ventricular hypertrophy. * Left ventricular systolic function is low normal. * There are regional wall motion abnormalities as specified. * The left atrium is severely dilated. * The right atrium is mildly dilated. * Moderate valvular aortic stenosis. * There is moderate mitral regurgitation. * Compared to a study from 06/2016, the trans-aortic velocities are slightly higher. Otherwise minimal change -Continue Nitropaste -Appreciate cardiology consult - Continue plavix and discontinue aspirin due to risk of bleeding on triple therapy as above, continue rosuvastatin. Nonsustained VT - patient will remain on tele, no change in medications at this time - [facility] aware Paroxysmal atrial fibrillation - continue amiodarone -Starting anticoagulation as above ESRD on dialysis-stable. Left Arm pain may indicate steal syndrome as per Nephro - consult nephrology appreciated -Continue hemodialysis here Sunday -Renally dose all medications -Vascular consulted by Nephro for AV fistulogram today -continue binders, multivitamin Anemia secondary to ESRD - will be receiving a transfusion today, consent obtained [id number] recurrent episodes of hypoglycemia upon admission, hemoglobin A1c 5.4% here which is normal. Improved glucose now -Discontinue home NPH - BSG ACHS -Consideration should be made permanently discontinue her insulin upon discharge Code - DNR Continued [facility] stay due to: other Discharge planning: uncertain
[2017-01-20] MEDS: CLOPIDOGREL BISULFATE 75 MG TAB PO SCH (21:01)
[2017-01-20] MEDS: ROSUVASTATIN CALCIUM 10 MG TAB PO SCH (21:02)
[2017-01-21] VITALS (11 sets, daily range): BP systolic 112–128; BP diastolic 62–94; PULSE 65–80; TEMP 36.4–37; O2SAT 95–100
[2017-01-21] MEDS: NITROGLYCERIN 2% OINTMENT 30GM TUBE EXT SCH ×4 (05:54→23:47)
[2017-01-21 06:38] LABS: HEMATOCRIT 27.1 % (37-47); MEAN CELL VOLUME 97.5 fL (80-100); MEAN CORPUSCULAR HGB CONC 32.8 g/dl (32-36); MEAN PLATELET VOLUME 10.1 fL (7.4-10.4); PLATELET COUNT 156 K/uL (130-400); RED BLOOD COUNT 2.78 M/uL (4.2-5.4); WHITE BLOOD COUNT 7.68 K/uL (4.8-10.8)
[2017-01-21 06:49] LABS: PARTIAL THROMBOPLASTIN RATIO 1.6
[2017-01-21] MEDS: INSULIN ASPART 100 UNITS/ML 3 ML PEN SC SCH ×4 (07:00→20:20)
[2017-01-21] MEDS: HEPARIN 25,000 UNIT/500ML D5W 500 ML IV PRN ×2 (07:06→14:17)
[2017-01-21 07:10] LABS: BUN/CREATININE RATIO 6.3 (10-20); CALCIUM 8.7 mg/dl (8.5-10.1); CREATININE 3.9 mg/dl (0.60-1.20); POTASSIUM 3.7 mmol/L (3.5-5.1)
[2017-01-21] MEDS: ALBUTEROL 0.083% NEBU SOLN 3 ML VIAL INH SCH ×2 (07:36→20:19)
[2017-01-21] MEDS: BOOST BREEZE NUTRITION DRINK 1 BOX PO SCH ×3 (07:42→20:12)
[2017-01-21] MEDS: POLYETHYLENE (MIRALAX) 17 GM PACK PO SCH ×2 (07:42→20:13)
[2017-01-21] MEDS: AMIODARONE 200 MG TAB PO SCH (07:43)
[2017-01-21] MEDS: MULTIVITAMIN TAB PO SCH (07:43)
[2017-01-21] MEDS: SEVELAMER HYDROCH 800 MG TAB PO SCH ×3 (07:43→16:58)
[2017-01-21] MEDS: PANTOprazole SOD 40 MG TAB PO SCH (07:44)
[2017-01-21] MEDS: DOCUSATE SODIUM/SENNA 50/8.6MG TAB PO SCH ×2 (07:44→20:12)
[2017-01-21] MEDS: ALLOPURINOL 100 MG TAB PO SCH (07:44)
[2017-01-21] MEDS ORDERED: HEPARIN IV BOLUS 3,000 UNIT in SYRINGE 0 ML IV ONE (09:15)
--- NOTE | 2017-01-21 10:06 | Nephrology Progress Note ---
Nephrology Progress Note Date of Service January 21, 2017. Chief Complaint To provide inpatient HD for this patient with ESRD admitted with pleuritic CP and RLE DVT Subjective Ms. Rahman was seen & examined in the PCU this morning. She remains on a heparin drip. She was given 5 mg warfarin yesterday evening. She denies any bleeding complications over night. Ms. Rahman currently denies fever, angina or dyspnea. She voices no new medical concerns this morning. Review of Systems Constitutional: No fever Cardiovascular: No chest pain Respiratory: No dyspnea at rest Abdomen: No nausea, No pain, No vomiting Extremities: No leg edema A complete review of systems was performed. Pertinent positives are noted above. All other systems are negative. Vital Signs Last 8 Hrs Date Time Temp Pulse Resp B/P Pulse Ox O2 Delivery O2 Flow Rate FiO2 01/21/17 08:25 95 Nasal Cannula 2.0 01/21/17 07:38 36.7 65 18 112/94 99 2.0 01/21/17 07:36 65 16 99 Nasal Cannula 2.0 01/21/17 04:00 Nasal Cannula 2.0 01/21/17 03:32 36.4 74 20 128/62 99 Nasal Cannula 2.0 Humidified Oxygen I & O 24-Hour Column 01/21/17 08:00 Intake Total 838 ml Output Total 50 ml Balance 788 ml Last Recorded Weight Weight (Kilograms): 78.200 Physical Exam General Appearance: WD/WN, no apparent distress Head: atraumatic Eyes: PERRL, EOMI Neck: + pertinent finding (IJ THC site without erythema) Respiratory/Chest: lungs clear Cardiovascular: regular rate, rhythm Abdomen/GI: normal bowel sounds, non tender, soft Extremities/Musculoskelatal: no pedal edema, + pertinent finding (L upper arm AVF + bruit. Large hematoma surrounding AVF) Neurologic/Psych: alert, oriented x 3 Family History Asthma Cancer SISTER (Breast cancer) Chronic kidney disease MOTHER Diabetes mellitus FATHER Heart disease FATHER Hypertension FATHER MOTHER Kidney disease Kidney stones Stroke Mother - CKD Social History Smoking Status: Never smoker Drug Use: none Marital Status: Housing Status: lives with family Occupation: retired . Retired. Never a smoker. Laboratory Results Past 24 Hours 01/21/17 06:20 01/21/17 06:20 Test 01/20/17 11:15 01/20/17 11:46 01/20/17 16:27 01/20/17 20:24 Prothrombin Time 11.9 SECONDS (9.0-12.0) Prothromb Time International Ratio 1.1 (0.9-1.1) Bedside Glucose 163 mg/dl (70-90) 129 mg/dl (70-90) 144 mg/dl (70-90) Test 01/21/17 06:20 01/21/17 07:02 Red Blood Count 2.78 M/uL (4.2-5.4) Mean Corpuscular Volume 97.5 fL (80-100) Mean Corpuscular Hemoglobin 32.0 pg (25-34) Mean Corpuscular Hemoglobin Concent 32.8 g/dl (32-36) RDW Standard Deviation 62.4 fL (36.4-46.3) RDW Coefficient of Variation 17.5 % (11.5-14.5) Mean Platelet Volume 10.1 fL (7.4-10.4) Activated Partial Thromboplast Time 41.8 SECONDS (21.0-31.0) Partial Thromboplastin Ratio 1.6 Anion Gap 10.0 mmol/L (3-11) Est Creatinine Clear Calc Drug Dose 11.1 ml/min Estimated GFR () 11.5 Estimated GFR (Non- 9.9 BUN/Creatinine Ratio 6.3 (10-20) Calcium Level 8.7 mg/dl (8.5-10.1) Bedside Glucose 112 mg/dl (70-90) Allergies Coded Allergies: No Known Allergies (Unverified , 01/11/17) Medications Current Inpatient Medications Medications (Trade) Dose Ordered Sig/Janeth Route Start Time Stop Time Status Last Admin Dose Admin Allopurinol (Zyloprim Tab) 50 mg QAM PO 01/11/17 09:00 02/10/17 08:59 01/21/17 07:44 50 MG Amiodarone HCl (Cordarone Tab) 200 mg QAM PO 01/11/17 09:00 02/10/17 08:59 01/21/17 07:43 200 MG Clopidogrel Bisulfate (plAVix TAB) 75 mg HS PO 01/11/17 21:00 02/10/17 20:59 01/20/17 21:01 75 MG Hydrocodone Bit/ Homatropine Methylb (Hycodan Syrup) 0.2 ml Q4 PRN PO 01/11/17 03:15 01/25/17 03:14 Multivitamins (Multivitamin Tab) 2 tab QAM PO 01/11/17 09:00 02/10/17 08:59 01/21/17 07:43 2 TAB Pantoprazole Sodium (Protonix Tab) 40 mg QAM PO 01/11/17 09:00 02/10/17 08:59 01/21/17 07:44 40 MG Rosuvastatin Calcium (Crestor Tab) 10 mg HS PO 01/11/17 21:00 02/10/17 20:59 01/20/17 21:02 10 MG Senna/Docusate Sodium (Senokot S Tab) 1 tab BID PO 01/11/17 09:00 02/10/17 08:59 01/21/17 07:44 1 TAB Sevelamer HCl (Renagel Tab) 800 mg TIDM PO 01/11/17 07:30 02/10/17 07:29 01/21/17 07:43 800 MG Insulin Aspart (novoLOG ASPART) SLIDING SCALE If C... ACHS SC 01/11/17 16:15 02/11/17 16:14 01/18/17 21:30 1 UNITS Glucose (Glucose 40% Gel) 15-30 GRAMS 15 GRAMS... UD PRN PO 01/11/17 12:45 02/10/17 12:44 Glucose (Glucose Chew Tab) 4-8 Tablets 4 Tabl... UD PRN PO 01/11/17 12:45 02/10/17 12:44 Dextrose (Dextrose 50% 50ML Syringe) 25-50ML OF 50% DW IV FOR... UD PRN IV 01/11/17 12:45 02/10/17 12:44 01/11/17 15:05 25 ML Glucagon (Glucagon Inj) 1 mg UD PRN SQ 01/11/17 12:45 02/10/17 12:44 Ondansetron HCl (Zofran Inj) 4 mg Q8H PRN IV 01/12/17 18:00 02/11/17 17:59 01/18/17 07:21 4 MG Acetaminophen (Tylenol Tab) 650 mg Q6H PRN PO 01/14/17 01:15 02/13/17 01:14 01/16/17 08:54 650 MG Polyethylene (Miralax Powder Packet) 17 gm BID PO 01/14/17 21:00 02/13/17 20:59 01/19/17 20:54 17 GM Lidocaine/ Prilocaine (Emla 2.5% Crm) 1 ea UD EXT 01/16/17 10:15 02/15/17 10:14 Hydromorphone HCl (Dilaudid Tab) 1 mg Q4H PRN PO 01/17/17 13:00 01/31/17 12:59 01/20/17 02:43 1 MG Enteral Nutritional Formula (Boost Breeze Nutritional Drink) 1 box TID PO 01/18/17 14:00 02/17/17 13:59 01/20/17 21:00 1 BOX Albuterol Sulfate (Ventolin 0.083% 2.5MG/3ML Neb) 2.5 mg BIDR INH 01/18/17 20:00 02/17/17 19:59 01/21/17 07:36 2.5 MG Nitroglycerin 0.5 inch 0.5 inch Q6H EXT 01/19/17 12:00 02/18/17 11:59 01/21/17 05:54 0.5 INCH Heparin Sodium/ Dextrose (Heparin 25,000 Unit/500ml D5W) 500 ml @ 18 mls/hr Q24H PRN IV 01/19/17 16:00 02/15/17 15:59 01/21/17 07:06 18 MLS/HR Impression (1) DVT (deep venous thrombosis) (2) ESRD (end stage renal disease) on dialysis (3) Hypertension (4) Diabetes (5) Anemia Patient admitted for evaluation of dyspnea, found to have LLE DVT but no PE. She has ASCVD and has been on ASA & Plavix chronically as an outpatient. She has required transfusion w/ 4 U PRBC 09/19 due to LGI bleeding. She had infiltration and hematoma at AVF site on 01/15/17 now resting AVF. PMH - ESRD on HD MWF at [facility] (HD Rx: 4 hr 2K 2Ca F-160 EDW 74 kg Heparin 2000 bolus / 1000 hourly), ASCVD s/p CABG x 4 1996, cardiac cath 2006 complicated by pseudoaneurysm of the right femoral artery requiring emergency surgical repair, AODM, HTN, PVD w/ carotid stenosis, h/o nephrolithiasis, cholelithiasis, OA, LGI bleeding 09/19 requiring transfusion w/ 4 U PRBC New R IJ THC placed 01/19/17 Recommendations END STAGE RENAL DISEASE: -- Volume status and electrolyte balance remain acceptable. No acute indication for HD today. Will schedule next HD for tomorrow am via IJ THC -- AVF has + bruit. Patient has large surrounding hematoma. Will monitor clinically -- Discussed DRIL procedure w/ patient. She understands the procedure but is uncertain whether her symptoms warrant intervention. Will await further vascular surgery input DVT: -- On heparin gtt. No active bleeding. Patient started warfarin 01/20/17. INR is 1.1 this morning ANEMIA: -- Hgb improved to 9.1 following transfusion w/ 1 U PRBC 01/19/17 -- Monitor H&H. -- Continue RANJAN w/ HD
--- NOTE | 2017-01-21 10:48 | Progress Note ---
Subjective Date of Service: January 21, 2017. Subjective Pt evaluation today including: conversation w/ patient, physical exam, chart review, lab review, review of studies, review of inpatient medication list Voiding: no voiding problems pt is feeling much better today, her left upper arm swelling went down little, still large bruise in the area. Pt denies CP, SOB, dizziness and LOC.Pt is playing with her I-pad. Problem List Medical Problems: (1) CHF (congestive heart failure) Status: Acute (2) Chronic kidney insufficiency Status: Acute (3) Chronic renal failure Status: Acute (4) Congestive heart failure Status: Acute (5) E16.2 Status: Acute (6) Elevated troponin Status: Acute (7) GI bleed Status: Acute (8) Hypotension Status: Acute (9) Left leg DVT Status: Acute (10) Pancytopenia Status: Acute (11) Pneumonia Status: Acute (12) Pulmonary edema Status: Acute (13) Respiratory distress Status: Acute (14) ST segment changes on electrocardiogram Status: Acute (15) Substernal precordial chest pain Status: Acute (16) Symptomatic anemia Status: Acute Review of Systems All Other Systems: Reviewed and Negative Medications Medications (Trade) Dose Ordered Sig/Janeth Route Start Time Stop Time Status Last Admin Dose Admin Warfarin Sodium 5 mg 5 mg NOW ONCE PO 01/20/17 11:45 01/20/17 12:04 DC 01/20/17 12:53 5 MG Heparin Sodium (Porcine)/Syringe (Heparin Iv Bolus/Syringe) 3 ml @ 10 mls/min 0915 ONCE IV 01/21/17 09:15 01/21/17 09:16 DC 01/21/17 09:41 10 MLS/MIN Objective Vital Signs Date Time Temp Pulse Resp B/P Pulse Ox O2 Delivery O2 Flow Rate FiO2 01/21/17 08:25 95 Nasal Cannula 2.0 01/21/17 07:38 36.7 65 18 112/94 99 2.0 01/21/17 07:36 65 16 99 Nasal Cannula 2.0 01/21/17 04:00 Nasal Cannula 2.0 01/21/17 03:32 36.4 74 20 128/62 99 Nasal Cannula 2.0 Humidified Oxygen 01/20/17 23:59 Nasal Cannula 2.0 Humidified Oxygen 01/20/17 23:55 36.5 76 20 114/70 99 Nasal Cannula 2.0 Humidified Oxygen 01/20/17 20:00 Nasal Cannula 2.0 01/20/17 19:26 66 16 98 Nasal Cannula 2.0 01/20/17 19:18 36.3 67 16 113/69 100 Nasal Cannula 2.0 01/20/17 16:01 95 Nasal Cannula 2.0 01/20/17 15:46 36.8 71 18 110/68 99 Nasal Cannula 2.0 01/20/17 12:33 95 Nasal Cannula 2.0 01/20/17 11:17 36.7 60 16 104/53 98 Nasal Cannula 2.0 Physical Exam General Appearance: no apparent distress Neck: supple Cardiovascular: regular rate, rhythm, no murmur Abdomen: normal bowel sounds, non tender, soft Extremities: normal range of motion, non-tender, + pertinent finding (left upper arm swelling) Neurologic/Psychiatric: alert, normal mood/affect, oriented x 3 Laboratory Results Last 24 Hours Test 01/20/17 11:15 01/20/17 11:46 01/20/17 16:27 01/20/17 20:24 Prothrombin Time 11.9 SECONDS Prothromb Time International Ratio 1.1 Bedside Glucose 163 mg/dl 129 mg/dl 144 mg/dl Test 01/21/17 06:20 01/21/17 07:02 White Blood Count 7.68 K/uL Red Blood Count 2.78 M/uL Hemoglobin 8.9 g/dL Hematocrit 27.1 % Mean Corpuscular Volume 97.5 fL Mean Corpuscular Hemoglobin 32.0 pg Mean Corpuscular Hemoglobin Concent 32.8 g/dl RDW Standard Deviation 62.4 fL RDW Coefficient of Variation 17.5 % Platelet Count 156 K/uL Mean Platelet Volume 10.1 fL Activated Partial Thromboplast Time 41.8 SECONDS Partial Thromboplastin Ratio 1.6 Sodium Level 137 mmol/L Potassium Level 3.7 mmol/L Chloride Level 98 mmol/L Carbon Dioxide Level 29 mmol/L Anion Gap 10.0 mmol/L Blood Urea Nitrogen 25 mg/dl Creatinine 3.90 mg/dl Est Creatinine Clear Calc Drug Dose 11.1 ml/min Estimated GFR () 11.5 Estimated GFR (Non- 9.9 BUN/Creatinine Ratio 6.3 Random Glucose 112 mg/dl Calcium Level 8.7 mg/dl Bedside Glucose 112 mg/dl Assessment and Plan 86 year old female with multiple co-morbidities including ESRD requiring dialysis, severe history of GI bleeding presents with chest pain with acute DVT left leg. The plan is for the patient to be started on coumadin with a heparin bridge instead of an IVC filter. However, she had been suffering from left UE pain. Since there was concern for subclavian steal syndrome she was evaluated by vascular surgery. Plan was for a DRIL however because of the significant swelling a perm cath was placed and the DRIL procedure will be completed in the future. DVT-Acute, POA, Anemia of CKD, h/o GI bleeding -continue heparin drip for now we will start to bridge with coumadin, daily monitor pt/inr until therapeutic. that her tunneled IJ catheter has been removed by Dr Rocha and pt has received right IJ. Still large swelling at the fistula site. -Started Coumadin yesterday, pending Pt/INR , HGB improved to 9.1 after 1 unit PRBC with HD. No evidence of GI bleeding. Hgb today 8.9. -Would favor keeping her here with heparin as a bridge for close observation given recent GI bleed, aware of the potential length of stay -Discussed with cardiology Dr. Hernandez and will permanently discontinue her aspirin to avoid triple therapy-we'll continue Plavix and Coumadin only - discussed potential as a surgical candidate and does feel like she is for this procedure Left upper extremity pain, concern for subclavian steal syndrome - vascular surgery as noted above -S/P perm cath and DRIL in the future - pain control Chest pain/Coronary artery disease / LVEF approximately 50% / Moderate aortic stenosis / Moderate mitral regurgitation/demand ischemia Echo: There is mild concentric left ventricular hypertrophy. * Left ventricular systolic function is low normal. * There are regional wall motion abnormalities as specified. * The left atrium is severely dilated. * The right atrium is mildly dilated. * Moderate valvular aortic stenosis. * There is moderate mitral regurgitation. * Compared to a study from 06/2016, the trans-aortic velocities are slightly higher. Otherwise minimal change -Continue Nitropaste -Appreciate cardiology consult - Continue plavix and discontinue aspirin due to risk of bleeding on triple therapy as above, continue rosuvastatin. Nonsustained VT - patient will remain on tele, no change in medications at this time - [facility] aware Paroxysmal atrial fibrillation - continue amiodarone -Starting anticoagulation as above ESRD on dialysis-stable. Left Arm pain may indicate steal syndrome as per Nephro - consult nephrology appreciated -Continue hemodialysis here Sunday -Renally dose all medications -Vascular consulted by Nephro for AV fistulogram today -continue binders, multivitamin Anemia secondary to ESRD - will be receiving a transfusion today, consent obtained [id number] recurrent episodes of hypoglycemia upon admission, hemoglobin A1c 5.4% here which is normal. Improved glucose now -Discontinue home NPH - BSG ACHS -Consideration should be made permanently discontinue her insulin upon discharge Code - DNR Continued [facility] stay due to: other (high risk for GI bleed so bridging coumadin inpatient) Discharge planning: home with home health
[2017-01-21 12:08] LABS: INR 1.2 (0.9-1.1); PROTHROMBIN TIME (PATIENT) 13.3 SECONDS (9.0-12.0)
[2017-01-21 15:26] LABS: PARTIAL THROMBOPLASTIN RATIO 2.3
[2017-01-21] MEDS: WARFARIN SOD 5 MG TAB PO SCH (16:00)
[2017-01-21] MEDS: ROSUVASTATIN CALCIUM 10 MG TAB PO SCH (20:12)
[2017-01-21] MEDS: CLOPIDOGREL BISULFATE 75 MG TAB PO SCH (20:13)
[2017-01-22] VITALS (27 sets, daily range): BP systolic 100–146; BP diastolic 56–89; PULSE 63–99; TEMP 36.4–36.8; O2SAT 91–98
[2017-01-22] MEDS: NITROGLYCERIN 2% OINTMENT 30GM TUBE EXT SCH ×4 (05:55→23:35)
[2017-01-22] MEDS ORDERED: EPOETIN ALFA 10,000 UNITS/ML VIAL IV. SCH (06:00)
[2017-01-22 06:12] LABS: HEMATOCRIT 27.9 % (37-47); MEAN CELL VOLUME 97.2 fL (80-100); MEAN CORPUSCULAR HEMOGLOBIN 32.1 pg (25-34); MEAN PLATELET VOLUME 10.1 fL (7.4-10.4); PLATELET COUNT 170 K/uL (130-400); RED BLOOD COUNT 2.87 M/uL (4.2-5.4); WHITE BLOOD COUNT 7.51 K/uL (4.8-10.8)
[2017-01-22 06:20] LABS: INR 1.4 (0.9-1.1); PARTIAL THROMBOPLASTIN RATIO 1.5; PROTHROMBIN TIME (PATIENT) 14.7 SECONDS (9.0-12.0)
[2017-01-22] MEDS: INSULIN ASPART 100 UNITS/ML 3 ML PEN SC SCH ×4 (07:00→20:38)
[2017-01-22 07:01] LABS: BUN/CREATININE RATIO 6.5 (10-20); CALCIUM 8.8 mg/dl (8.5-10.1); CREATININE 4.8 mg/dl (0.60-1.20); POTASSIUM 4.1 mmol/L (3.5-5.1)
[2017-01-22] MEDS: ALBUTEROL 0.083% NEBU SOLN 3 ML VIAL INH SCH ×2 (07:08→19:57)
[2017-01-22 07:23] LABS: PARTIAL THROMBOPLASTIN RATIO 1.7
[2017-01-22] MEDS: BOOST BREEZE NUTRITION DRINK 1 BOX PO SCH ×3 (07:31→20:36)
[2017-01-22] MEDS: POLYETHYLENE (MIRALAX) 17 GM PACK PO SCH ×2 (07:32→20:37)
[2017-01-22] MEDS: DOCUSATE SODIUM/SENNA 50/8.6MG TAB PO SCH ×2 (07:32→20:37)
[2017-01-22] MEDS: ALLOPURINOL 100 MG TAB PO SCH (07:32)
[2017-01-22] MEDS: SEVELAMER HYDROCH 800 MG TAB PO SCH ×3 (07:33→15:36)
[2017-01-22] MEDS: PANTOprazole SOD 40 MG TAB PO SCH (07:33)
[2017-01-22] MEDS: MULTIVITAMIN TAB PO SCH (07:33)
[2017-01-22] MEDS: AMIODARONE 200 MG TAB PO SCH (07:33)
[2017-01-22] MEDS ORDERED: HEPARIN IV BOLUS 3,000 UNIT in SYRINGE 0 ML IV ONE (08:15)
--- NOTE | 2017-01-22 09:25 | Dialysis Progress Note ---
Hemodialysis Note Date of Service January 22, 2017. Chief Complaint ESRD Subjective No acute events overnight. Reina was seen and evaluated during hemodialysis this morning. She reports some shortness of breath and increasing orthopnea. No cough. No chest pain or palpitations. Tolerating HD well. Qb 350-400 via TDC. BP appropriate. No complaints with catheter. Bruising noted around exit site improving. LUE AVF tender to touch. Bruising over AVF improving. No hand pain, paresthesias or weakness. Review of Systems A complete review of systems was performed. Pertinent positives are noted above. All other systems are negative. Vital Signs Last 8 Hrs Date Time Temp Pulse Resp B/P Pulse Ox O2 Delivery O2 Flow Rate FiO2 01/22/17 08:46 77 117/58 01/22/17 08:16 95 Nasal Cannula 2.0 01/22/17 07:49 36.4 73 20 111/66 95 Nasal Cannula 2.0 01/22/17 07:08 70 18 98 Nasal Cannula 2.0 01/22/17 04:45 Nasal Cannula 2.0 01/22/17 04:15 36.8 78 18 128/57 97 Nasal Cannula 2.0 I & O 24-Hour Column 01/22/17 08:00 Intake Total 776 ml Output Total 150 ml Balance 626 ml Last Recorded Weight Weight (Kilograms): 80.500 Physical Exam General Appearance: WD/WN, no apparent distress Head: normocephalic, atraumatic Eyes: normal inspection, sclerae normal ENT: normal ENT inspection, pharynx normal Neck: supple, no JVD Respiratory/Chest: lungs clear, no respiratory distress, no accessory muscle use Cardiovascular: regular rate, rhythm Abdomen/GI: non tender, soft Neurologic/Psych: alert, oriented x 3 Family History Mother - CKD Social History Smoking Status: Never smoker Drug Use: none Marital Status: Housing Status: lives with family Occupation: retired . Retired. Never a smoker. Laboratory Results Past 24 Hours 01/22/17 05:55 01/22/17 05:55 Test 01/21/17 11:21 01/21/17 11:47 01/21/17 15:03 01/21/17 16:19 Bedside Glucose 176 mg/dl (70-90) 119 mg/dl (70-90) Prothrombin Time 13.3 SECONDS (9.0-12.0) Prothromb Time International Ratio 1.2 (0.9-1.1) Activated Partial Thromboplast Time 60.7 SECONDS (21.0-31.0) Partial Thromboplastin Ratio 2.3 Test 01/21/17 20:20 01/22/17 05:55 01/22/17 06:55 01/22/17 07:03 Bedside Glucose 136 mg/dl (70-90) 116 mg/dl (70-90) Red Blood Count 2.87 M/uL (4.2-5.4) Mean Corpuscular Volume 97.2 fL (80-100) Mean Corpuscular Hemoglobin 32.1 pg (25-34) Mean Corpuscular Hemoglobin Concent 33.0 g/dl (32-36) RDW Standard Deviation 61.0 fL (36.4-46.3) RDW Coefficient of Variation 17.1 % (11.5-14.5) Mean Platelet Volume 10.1 fL (7.4-10.4) Prothrombin Time 14.7 SECONDS (9.0-12.0) Prothromb Time International Ratio 1.4 (0.9-1.1) Activated Partial Thromboplast Time 38.3 SECONDS (21.0-31.0) 45.0 SECONDS (21.0-31.0) Partial Thromboplastin Ratio 1.5 1.7 Anion Gap 10.0 mmol/L (3-11) Est Creatinine Clear Calc Drug Dose 9.2 ml/min Estimated GFR () 8.9 Estimated GFR (Non- 7.7 BUN/Creatinine Ratio 6.5 (10-20) Calcium Level 8.8 mg/dl (8.5-10.1) Test 01/22/17 08:58 Allergies Coded Allergies: No Known Allergies (Unverified , 01/11/17) Medications Current Inpatient Medications Medications (Trade) Dose Ordered Sig/Janeth Route Start Time Stop Time Status Last Admin Dose Admin Allopurinol (Zyloprim Tab) 50 mg QAM PO 01/11/17 09:00 02/10/17 08:59 01/22/17 07:32 50 MG Amiodarone HCl (Cordarone Tab) 200 mg QAM PO 01/11/17 09:00 02/10/17 08:59 01/22/17 07:33 200 MG Clopidogrel Bisulfate (plAVix TAB) 75 mg HS PO 01/11/17 21:00 02/10/17 20:59 01/21/17 20:13 75 MG Hydrocodone Bit/ Homatropine Methylb (Hycodan Syrup) 0.2 ml Q4 PRN PO 01/11/17 03:15 01/25/17 03:14 Multivitamins (Multivitamin Tab) 2 tab QAM PO 01/11/17 09:00 02/10/17 08:59 01/22/17 07:33 2 TAB Pantoprazole Sodium (Protonix Tab) 40 mg QAM PO 01/11/17 09:00 02/10/17 08:59 01/22/17 07:33 40 MG Rosuvastatin Calcium (Crestor Tab) 10 mg HS PO 01/11/17 21:00 02/10/17 20:59 01/21/17 20:12 10 MG Senna/Docusate Sodium (Senokot S Tab) 1 tab BID PO 01/11/17 09:00 02/10/17 08:59 01/22/17 07:32 1 TAB Sevelamer HCl (Renagel Tab) 800 mg TIDM PO 01/11/17 07:30 02/10/17 07:29 01/22/17 07:33 800 MG Insulin Aspart (novoLOG ASPART) SLIDING SCALE If C... ACHS SC 01/11/17 16:15 02/11/17 16:14 01/18/17 21:30 1 UNITS Glucose (Glucose 40% Gel) 15-30 GRAMS 15 GRAMS... UD PRN PO 01/11/17 12:45 02/10/17 12:44 Glucose (Glucose Chew Tab) 4-8 Tablets 4 Tabl... UD PRN PO 01/11/17 12:45 02/10/17 12:44 Dextrose (Dextrose 50% 50ML Syringe) 25-50ML OF 50% DW IV FOR... UD PRN IV 01/11/17 12:45 02/10/17 12:44 01/11/17 15:05 25 ML Glucagon (Glucagon Inj) 1 mg UD PRN SQ 01/11/17 12:45 02/10/17 12:44 Ondansetron HCl (Zofran Inj) 4 mg Q8H PRN IV 01/12/17 18:00 02/11/17 17:59 01/18/17 07:21 4 MG Acetaminophen (Tylenol Tab) 650 mg Q6H PRN PO 01/14/17 01:15 02/13/17 01:14 01/16/17 08:54 650 MG Polyethylene (Miralax Powder Packet) 17 gm BID PO 01/14/17 21:00 02/13/17 20:59 01/21/17 20:13 17 GM Lidocaine/ Prilocaine (Emla 2.5% Crm) 1 ea UD EXT 01/16/17 10:15 02/15/17 10:14 Hydromorphone HCl (Dilaudid Tab) 1 mg Q4H PRN PO 01/17/17 13:00 01/31/17 12:59 01/20/17 02:43 1 MG Enteral Nutritional Formula (Boost Breeze Nutritional Drink) 1 box TID PO 01/18/17 14:00 02/17/17 13:59 01/21/17 20:12 1 BOX Albuterol Sulfate (Ventolin 0.083% 2.5MG/3ML Neb) 2.5 mg BIDR INH 01/18/17 20:00 02/17/17 19:59 01/22/17 07:08 2.5 MG Nitroglycerin 0.5 inch 0.5 inch Q6H EXT 01/19/17 12:00 02/18/17 11:59 01/22/17 05:55 0.5 INCH Heparin Sodium/ Dextrose (Heparin 25,000 Unit/500ml D5W) 500 ml @ 19 mls/hr Q24H PRN IV 01/19/17 16:00 02/15/17 15:59 01/21/17 14:17 18 MLS/HR Epoetin Joshua (Procrit Inj) 10,000 units TODAY@0600 IV. 01/22/17 06:00 01/22/17 18:00 Heparin Sodium (Porcine) (No Heparin In Dialysis) 1 ea TODAY@0600 N/A 01/22/17 06:00 01/22/17 18:00 Warfarin Sodium (Coumadin Tab) 5 mg DAILY@16 PO 01/21/17 16:00 02/20/17 15:59 01/21/17 16:00 5 MG Impression (1) DVT (deep venous thrombosis) (2) ESRD (end stage renal disease) on dialysis (3) Hypertension (4) Diabetes (5) Anemia Patient admitted for evaluation of dyspnea, found to have LLE DVT but no PE. She has ASCVD and has been on ASA & Plavix chronically as an outpatient. She has required transfusion w/ 4 U PRBC 09/19 due to LGI bleeding. She had infiltration and hematoma at AVF site on 01/15/17 now resting AVF. PMH - ESRD on HD MWF at [facility] (HD Rx: 4 hr 2K 2Ca F-160 EDW 74 kg Heparin 2000 bolus / 1000 hourly), ASCVD s/p CABG x 4 1996, cardiac cath 2006 complicated by pseudoaneurysm of the right femoral artery requiring emergency surgical repair, AODM, HTN, PVD w/ carotid stenosis, h/o nephrolithiasis, cholelithiasis, OA, LGI bleeding 09/19 requiring transfusion w/ 4 U PRBC New R IJ THC placed 01/19/17 Recommendations END STAGE RENAL DISEASE: -- HD today. Qb and BP appropriate. -- HD via TDC while AVF hematoma resolves. -- Metabolic profile reviewed this morning. -- UF goal ~3 kg. -- AVF has + bruit. Surrounding hematoma without significant improvement per patient. Will monitor clinically. -- Discussed DRIL procedure w/ patient. She understands the procedure and expressed that she does not feel her symptoms warrant intervention. Will continue to await vascular surgery input. DVT: -- Remains on heparin. No active bleeding. Patient started warfarin 01/20/17. INR is pending this morning ANEMIA: -- Hgb improved to 9.1 following transfusion w/ 1 U PRBC 01/19/17 -- H/H stable. -- Monitor H&H. -- Continue RANJAN w/ HD (40960 units today).
[2017-01-22 09:35] LABS: INR 1.4 (0.9-1.1); PROTHROMBIN TIME (PATIENT) 14.9 SECONDS (9.0-12.0)
--- NOTE | 2017-01-22 10:23 | CARDIOLOGY PROGRESS NOTE ---
DATE: 01/22/2017 SUBJECTIVE: Mrs. Rahman is seen in dialysis this morning. She is resting comfortably in bed without complaints of chest pain or dyspnea. Left upper extremity swelling has improved according to her report. OBJECTIVE: VITAL SIGNS: Blood pressure 130/60 with a regular pulse of 75. Her respiratory rate is 20. The patient is afebrile at 36.4 degrees Celsius. Saturations are 95% on 2 liters nasal cannula. NECK: Supple with delayed and prolonged carotid upstrokes. No obvious bruits or transmitted murmur. Jugular venous pressure is difficult to assess. CARDIOVASCULAR: Reveals a regular rhythm with a 2/6 crescendo-decrescendo systolic murmur heard loudest at the base. No S3. LUNGS: Clear without rales, rhonchi, or wheezes. ABDOMEN: Obese without bruits. EXTREMITIES: Reveal intact radial artery pulse on the right. Hematoma over left upper extremity fistula has improved. Edema is less apparent. Bruit is present. Trace pretibial edema is noted. DATA: CBC notes hemoglobin of 9.2, hematocrit 27.9, white count 7.5, and platelet count 170,000. Electrolytes note a sodium of 136, potassium 4.1, chloride 97, bicarbonate 29, BUN 32, creatinine 4.8, and glucose 119. INR is 1.4. osha inspector notes sinus rhythm with occasional PACs and PVCs. IMPRESSION AND PLAN: 1. Coronary artery disease -- quiescent on current medications. Anatomy as explained in the note dated 01/19/2017. Continue conservative medical care at the patient's request. 2. Moderate aortic stenosis. 3. Moderate mitral regurgitation. 4. Left extremity deep venous thrombosis -- transitioning to Coumadin. 5. Paroxysmal atrial fibrillation -- continue amiodarone. 6. Nonsustained ventricular tachycardia. 7. Hypertension -- controlled. 8. Hypercholesterolemia -- continue statin. 9. Chronic renal failure -- receiving hemodialysis at this time. 10. AV fistula -- status post DRIL procedure on Sunday to her left upper extremity.
--- NOTE | 2017-01-22 14:34 | Hospitalist Progress Note ---
Hospitalist Progress Note Date of Service January 22, 2017. Subjective Pt evaluation today including: conversation w/ patient, physical exam, chart review, lab review, review of studies, review of inpatient medication list Patient seen and evaluated. Received dialysis today and tolerated well. She verbalizes no acute complaints. States she still has pain in her LUE but reports it is improving and the edema is improving She does not want to undergo DRIL procedure. Hemoglobin remains stable. INR 1.4 and bridging continues. No evidence of acute bleeding. Constitutional: No chills, No fever Eyes: No worsening of vision ENT: No nasal symptoms, No sore throat, No trouble swallowing Respiratory: No shortness of breath Cardiovascular: No chest pain Abdomen: No GI bleeding, No constipation, No diarrhea, No nausea, No pain, No vomiting Musculoskeletal: + problem reported (LUE arm pain (improving)), + swelling ( LUE swelling (improving)) Skin: + problem reported (ecchymosis of LUE (improving)) Medications Current Inpatient Medications Medications (Trade) Dose Ordered Sig/Janeth Route Start Time Stop Time Status Last Admin Dose Admin Allopurinol (Zyloprim Tab) 50 mg QAM PO 01/11/17 09:00 02/10/17 08:59 01/22/17 07:32 50 MG Amiodarone HCl (Cordarone Tab) 200 mg QAM PO 01/11/17 09:00 02/10/17 08:59 01/22/17 07:33 200 MG Clopidogrel Bisulfate (plAVix TAB) 75 mg HS PO 01/11/17 21:00 02/10/17 20:59 01/21/17 20:13 75 MG Hydrocodone Bit/ Homatropine Methylb (Hycodan Syrup) 0.2 ml Q4 PRN PO 01/11/17 03:15 01/25/17 03:14 Multivitamins (Multivitamin Tab) 2 tab QAM PO 01/11/17 09:00 02/10/17 08:59 01/22/17 07:33 2 TAB Pantoprazole Sodium (Protonix Tab) 40 mg QAM PO 01/11/17 09:00 02/10/17 08:59 01/22/17 07:33 40 MG Rosuvastatin Calcium (Crestor Tab) 10 mg HS PO 01/11/17 21:00 02/10/17 20:59 01/21/17 20:12 10 MG Senna/Docusate Sodium (Senokot S Tab) 1 tab BID PO 01/11/17 09:00 02/10/17 08:59 01/22/17 07:32 1 TAB Sevelamer HCl (Renagel Tab) 800 mg TIDM PO 01/11/17 07:30 02/10/17 07:29 01/22/17 11:30 800 MG Insulin Aspart (novoLOG ASPART) SLIDING SCALE If C... ACHS SC 01/11/17 16:15 02/11/17 16:14 01/18/17 21:30 1 UNITS Glucose (Glucose 40% Gel) 15-30 GRAMS 15 GRAMS... UD PRN PO 01/11/17 12:45 02/10/17 12:44 Glucose (Glucose Chew Tab) 4-8 Tablets 4 Tabl... UD PRN PO 01/11/17 12:45 02/10/17 12:44 Dextrose (Dextrose 50% 50ML Syringe) 25-50ML OF 50% DW IV FOR... UD PRN IV 01/11/17 12:45 02/10/17 12:44 01/11/17 15:05 25 ML Glucagon (Glucagon Inj) 1 mg UD PRN SQ 01/11/17 12:45 02/10/17 12:44 Ondansetron HCl (Zofran Inj) 4 mg Q8H PRN IV 01/12/17 18:00 02/11/17 17:59 01/18/17 07:21 4 MG Acetaminophen (Tylenol Tab) 650 mg Q6H PRN PO 01/14/17 01:15 02/13/17 01:14 01/16/17 08:54 650 MG Polyethylene (Miralax Powder Packet) 17 gm BID PO 01/14/17 21:00 02/13/17 20:59 01/21/17 20:13 17 GM Lidocaine/ Prilocaine (Emla 2.5% Crm) 1 ea UD EXT 01/16/17 10:15 02/15/17 10:14 Hydromorphone HCl (Dilaudid Tab) 1 mg Q4H PRN PO 01/17/17 13:00 01/31/17 12:59 01/20/17 02:43 1 MG Enteral Nutritional Formula (Boost Breeze Nutritional Drink) 1 box TID PO 01/18/17 14:00 02/17/17 13:59 01/21/17 20:12 1 BOX Albuterol Sulfate (Ventolin 0.083% 2.5MG/3ML Neb) 2.5 mg BIDR INH 01/18/17 20:00 02/17/17 19:59 01/22/17 07:08 2.5 MG Nitroglycerin 0.5 inch 0.5 inch Q6H EXT 01/19/17 12:00 02/18/17 11:59 01/22/17 12:00 0.5 INCH Heparin Sodium/ Dextrose (Heparin 25,000 Unit/500ml D5W) 500 ml @ 19 mls/hr Q24H PRN IV 01/19/17 16:00 02/15/17 15:59 01/21/17 14:17 18 MLS/HR Epoetin Joshua (Procrit Inj) 10,000 units TODAY@0600 IV. 01/22/17 06:00 01/22/17 18:00 01/22/17 12:14 10,000 UNITS Heparin Sodium (Porcine) (No Heparin In Dialysis) 1 ea TODAY@0600 N/A 01/22/17 06:00 01/22/17 18:00 01/22/17 12:14 1 EA Warfarin Sodium (Coumadin Tab) 5 mg DAILY@16 PO 01/21/17 16:00 02/20/17 15:59 01/21/17 16:00 5 MG Objective Vital Signs Date Time Temp Pulse Resp B/P Pulse Ox O2 Delivery O2 Flow Rate FiO2 01/22/17 13:39 36.5 73 20 121/57 91 01/22/17 13:12 36.7 67 104/72 01/22/17 12:30 68 133/61 01/22/17 12:15 71 125/63 01/22/17 12:00 67 117/56 01/22/17 11:45 99 146/89 01/22/17 11:30 68 123/58 01/22/17 11:15 69 123/60 01/22/17 11:00 69 128/67 01/22/17 10:45 71 129/66 01/22/17 10:30 77 135/59 01/22/17 10:15 75 137/59 01/22/17 10:00 73 128/66 01/22/17 09:45 75 135/74 01/22/17 09:30 75 130/63 01/22/17 09:15 76 133/62 01/22/17 09:00 76 127/62 01/22/17 08:46 77 117/58 01/22/17 08:40 36.5 63 114/67 01/22/17 08:16 95 Nasal Cannula 2.0 01/22/17 07:49 36.4 73 20 111/66 95 Nasal Cannula 2.0 01/22/17 07:08 70 18 98 Nasal Cannula 2.0 01/22/17 04:45 Nasal Cannula 2.0 01/22/17 04:15 36.8 78 18 128/57 97 Nasal Cannula 2.0 01/22/17 00:00 Nasal Cannula 2.0 01/21/17 23:48 37.0 80 18 128/72 97 Nasal Cannula 2.0 01/21/17 20:15 Nasal Cannula 2.0 01/21/17 19:35 66 18 96 Nasal Cannula 2.0 01/21/17 18:56 37.0 68 18 125/71 99 Nasal Cannula 2.0 01/21/17 16:08 95 Nasal Cannula 2.0 01/21/17 15:41 36.4 67 18 115/65 100 Physical Exam General Appearance: WD/WN, no apparent distress Eyes: sclerae normal ENT: hearing grossly normal Neck: supple, trachea midline Respiratory/Chest: lungs clear (but diminished), no respiratory distress, no accessory muscle use Cardiovascular: regular rate, rhythm, no gallop, no murmur Abdomen: normal bowel sounds, non tender, soft Extremities: no calf tenderness Neurologic/Psychiatric: alert, oriented x 3 Skin: warm/dry, + pertinent finding (echymosis of LUE over AV fistula and hand ; fluctuant edema of LUE) Laboratory Results Last 24 Hours Test 01/21/17 15:03 01/21/17 16:19 01/21/17 20:20 01/22/17 05:55 Activated Partial Thromboplast Time 60.7 SECONDS 38.3 SECONDS Partial Thromboplastin Ratio 2.3 1.5 Bedside Glucose 119 mg/dl 136 mg/dl White Blood Count 7.51 K/uL Red Blood Count 2.87 M/uL Hemoglobin 9.2 g/dL Hematocrit 27.9 % Mean Corpuscular Volume 97.2 fL Mean Corpuscular Hemoglobin 32.1 pg Mean Corpuscular Hemoglobin Concent 33.0 g/dl RDW Standard Deviation 61.0 fL RDW Coefficient of Variation 17.1 % Platelet Count 170 K/uL Mean Platelet Volume 10.1 fL Prothrombin Time 14.7 SECONDS Prothromb Time International Ratio 1.4 Sodium Level 136 mmol/L Potassium Level 4.1 mmol/L Chloride Level 97 mmol/L Carbon Dioxide Level 29 mmol/L Anion Gap 10.0 mmol/L Blood Urea Nitrogen 32 mg/dl Creatinine 4.80 mg/dl Est Creatinine Clear Calc Drug Dose 9.2 ml/min Estimated GFR () 8.9 Estimated GFR (Non- 7.7 BUN/Creatinine Ratio 6.5 Random Glucose 119 mg/dl Calcium Level 8.8 mg/dl Test 01/22/17 06:55 01/22/17 07:03 01/22/17 13:33 Prothrombin Time 14.9 SECONDS Prothromb Time International Ratio 1.4 Activated Partial Thromboplast Time 45.0 SECONDS Partial Thromboplastin Ratio 1.7 Bedside Glucose 116 mg/dl 109 mg/dl Assessment and Plan Ms. Rahman is an 86 y/o female with PMHx of ESRD on HD and GI Bleed (September 2016) who presents with CP with active DVT in left leg. Currently undergoing heparin bridge with Coumadin instead of IVC filter. Also complaining of LUE pain with concern from subclavian steal syndrome and was evaluated by vascular surgery. Plan for outpatient DRIL (patient does not feel she wants to do this intervention) Acute L Leg DVT: - Heparin bridge for Coumadin (started 01/20) - INR 1.4 - continue to trend Chest Pain (RESOLVED)/CAD/Aortic Stenosis/Mitral Regurg/Demand Ischemia: - Echo - mild concentric LVH, low normal EF, regional wall motion abnormalities -- severly dilated L atrium, mildly dilated R atrium, mod , mod MR - Plavix 75 mg daily - ASA 81 mg daily D/C'd due to bleeding concerns - Rosuvastatin 10 mg daily - Nitroglycerin 0.5 inch Q6H - Cardiology following - recommendations reviewed - Anemia of ChroniC Disease with H/O GI Bleed (September 2016): - PRBCs x 1 unit (01/19) - hemoglobin stable - Protonix 40 mg daily LUE Pain: Concern for Subclavian Steal Syndrome: - Vascular surgery following - rest fistula and F/U x 2 weeks - DRIL discussion at that time Non-Sustained VT: - Continue to monitor on tele Paroxysmal Atrial Fibrillation: - Amiodarone 200 mg daily - Anticoagulation with heparin/coumadin bridge ESRD on HD MWF: - Removed permcath 01/12 with new R IJ permcath 01/19 - Renal dosing and avoid nephrotoxic agents - Renagel 800 mg TID - Nephrology following - recommendations reviewed T2DM with Intermittent Hypoglycemia: A1c 5.4 - Home regimen on hold - SSI - goal 140-180 and correction factor 30 - Considerating for permanent D/C on home insulin DVT Prophylaxis: Heparin/Coumadin bridge Code Status: DO NOT RESUSCITATE Disposition: - F/U PCP appt with Lizy Landis - January 30 at 12 PM - Await therapeutic INR - Has 24/ caregivers and home O2 Continued [facility] stay due to: multiple IV medications needed
[2017-01-22 15:02] LABS: PARTIAL THROMBOPLASTIN RATIO 2.8
[2017-01-22] MEDS: WARFARIN SOD 5 MG TAB PO SCH (15:36)
[2017-01-22] MEDS: ACETAMINOPHEN 325 MG TAB PO PRN (19:36)
[2017-01-22] MEDS: HEPARIN 25,000 UNIT/500ML D5W 500 ML IV PRN (20:10)
[2017-01-22] MEDS: CLOPIDOGREL BISULFATE 75 MG TAB PO SCH (20:37)
[2017-01-22] MEDS: ROSUVASTATIN CALCIUM 10 MG TAB PO SCH (20:37)
[2017-01-22 22:36] LABS: PARTIAL THROMBOPLASTIN RATIO 1.2
[2017-01-22] MEDS ORDERED: HEPARIN IV BOLUS 4,500 UNIT in SYRINGE 0 ML IV ONE (23:45)
[2017-01-23] MEDS: HEPARIN 25,000 UNIT/500ML D5W 500 ML IV PRN (00:43)
[2017-01-23 03:03] VITALS: BP 128/70; PULSE 74; TEMP 36.5; O2SAT 97
[2017-01-23] MEDS: NITROGLYCERIN 2% OINTMENT 30GM TUBE EXT SCH ×2 (05:27→13:09)
[2017-01-23 06:09] LABS: HEMATOCRIT 27.3 % (37-47); MEAN CELL VOLUME 98.6 fL (80-100); MEAN CORPUSCULAR HEMOGLOBIN 32.5 pg (25-34); PLATELET COUNT 169 K/uL (130-400); RED BLOOD COUNT 2.77 M/uL (4.2-5.4); WHITE BLOOD COUNT 5.45 K/uL (4.8-10.8)
[2017-01-23 06:34] LABS: INR 2.3 (0.9-1.1); PARTIAL THROMBOPLASTIN RATIO 3.5; PROTHROMBIN TIME (PATIENT) 25.4 SECONDS (9.0-12.0)
[2017-01-23 06:52] LABS: BUN/CREATININE RATIO 5.9 (10-20); CALCIUM 8.6 mg/dl (8.5-10.1)
[2017-01-23 07:17] VITALS: PULSE 71; O2SAT 95
[2017-01-23] MEDS: ALBUTEROL 0.083% NEBU SOLN 3 ML VIAL INH SCH (07:17)
[2017-01-23] MEDS: AMIODARONE 200 MG TAB PO SCH (07:49)
[2017-01-23] MEDS: ALLOPURINOL 100 MG TAB PO SCH (07:49)
[2017-01-23] MEDS: SEVELAMER HYDROCH 800 MG TAB PO SCH ×3 (07:49→16:10)
[2017-01-23] MEDS: DOCUSATE SODIUM/SENNA 50/8.6MG TAB PO SCH (07:49)
[2017-01-23] MEDS: PANTOprazole SOD 40 MG TAB PO SCH (07:49)
[2017-01-23] MEDS: MULTIVITAMIN TAB PO SCH (07:50)
[2017-01-23] MEDS: POLYETHYLENE (MIRALAX) 17 GM PACK PO SCH (07:50)
[2017-01-23] MEDS: INSULIN ASPART 100 UNITS/ML 3 ML PEN SC SCH ×2 (07:52→11:00)
[2017-01-23] MEDS: BOOST BREEZE NUTRITION DRINK 1 BOX PO SCH ×2 (08:02→13:11)
[2017-01-23 09:04] VITALS: BP 115/69; PULSE 71; TEMP 36.4; O2SAT 95
--- NOTE | 2017-01-23 09:58 | Nephrology Progress Note ---
Nephrology Progress Note Date of Service January 23, 2017. Chief Complaint ESRD Subjective No acute events overnight. Reports some tenderness over AVF but otherwise no complaints. Dyspnea and orthopnea improved with dialysis. She tolerated dialysis well yesterday for net UF 3.5 kg. After HD, usually very tired. and slept well yesterday afternoon and evening. Denies pain in hand. Bruising improving. No signs of bleeding. Review of Systems A complete review of systems was performed. Pertinent positives are noted above. All other systems are negative. Vital Signs Last 8 Hrs Date Time Temp Pulse Resp B/P Pulse Ox O2 Delivery O2 Flow Rate FiO2 01/23/17 09:04 36.4 71 20 115/69 95 Room Air 01/23/17 07:17 71 18 95 Room Air 01/23/17 04:00 Nasal Cannula 2.0 01/23/17 03:03 36.5 74 21 128/70 97 Nasal Cannula 2.0 I & O 24-Hour Column 01/23/17 07:59 Intake Total 422 ml Output Total 3650 ml Balance -3228 ml Last Recorded Weight Weight (Kilograms): 76.700 Physical Exam General Appearance: WD/WN, no apparent distress Head: normocephalic, atraumatic Eyes: normal inspection, sclerae normal ENT: normal ENT inspection, pharynx normal Neck: supple, no JVD, + pertinent finding (RIJ HD permcath intact) Respiratory/Chest: lungs clear, no respiratory distress, no accessory muscle use Cardiovascular: regular rate, rhythm, no murmur Back: no CVA tenderness Abdomen/GI: non tender, soft Extremities/Musculoskelatal: normal inspection, no pedal edema, + pertinent finding (LUE AVF with improving hematoma and bruising, +thrill and bruit) Neurologic/Psych: alert, oriented x 3 Family History Asthma Cancer SISTER (Breast cancer) Chronic kidney disease MOTHER Diabetes mellitus FATHER Heart disease FATHER Hypertension FATHER MOTHER Kidney disease Kidney stones Stroke Mother - CKD Social History Smoking Status: Never smoker Drug Use: none Marital Status: Housing Status: lives with family Occupation: retired . Retired. Never a smoker. Laboratory Results Past 24 Hours 01/23/17 06:00 01/23/17 06:00 Test 01/22/17 13:33 01/22/17 14:35 01/22/17 16:16 01/22/17 20:24 Bedside Glucose 109 mg/dl (70-90) 143 mg/dl (70-90) 145 mg/dl (70-90) Activated Partial Thromboplast Time 72.0 SECONDS (21.0-31.0) Partial Thromboplastin Ratio 2.8 Test 01/22/17 22:08 01/23/17 06:00 Activated Partial Thromboplast Time 30.4 SECONDS (21.0-31.0) 90.7 SECONDS (21.0-31.0) Partial Thromboplastin Ratio 1.2 3.5 Red Blood Count 2.77 M/uL (4.2-5.4) Mean Corpuscular Volume 98.6 fL (80-100) Mean Corpuscular Hemoglobin 32.5 pg (25-34) Mean Corpuscular Hemoglobin Concent 33.0 g/dl (32-36) RDW Standard Deviation 61.3 fL (36.4-46.3) RDW Coefficient of Variation 17.0 % (11.5-14.5) Mean Platelet Volume 10.0 fL (7.4-10.4) Prothrombin Time 25.4 SECONDS (9.0-12.0) Prothromb Time International Ratio 2.3 (0.9-1.1) Anion Gap 10.0 mmol/L (3-11) Est Creatinine Clear Calc Drug Dose 14.4 ml/min Estimated GFR () 15.8 Estimated GFR (Non- 13.6 BUN/Creatinine Ratio 5.9 (10-20) Calcium Level 8.6 mg/dl (8.5-10.1) Allergies Coded Allergies: No Known Allergies (Unverified , 01/11/17) Medications Current Inpatient Medications Medications (Trade) Dose Ordered Sig/Janeth Route Start Time Stop Time Status Last Admin Dose Admin Allopurinol (Zyloprim Tab) 50 mg QAM PO 01/11/17 09:00 02/10/17 08:59 01/23/17 07:49 50 MG Amiodarone HCl (Cordarone Tab) 200 mg QAM PO 01/11/17 09:00 02/10/17 08:59 01/23/17 07:49 200 MG Clopidogrel Bisulfate (plAVix TAB) 75 mg HS PO 01/11/17 21:00 02/10/17 20:59 01/22/17 20:37 75 MG Hydrocodone Bit/ Homatropine Methylb (Hycodan Syrup) 0.2 ml Q4 PRN PO 01/11/17 03:15 01/25/17 03:14 Multivitamins (Multivitamin Tab) 2 tab QAM PO 01/11/17 09:00 02/10/17 08:59 01/23/17 07:50 2 TAB Pantoprazole Sodium (Protonix Tab) 40 mg QAM PO 01/11/17 09:00 02/10/17 08:59 01/23/17 07:49 40 MG Rosuvastatin Calcium (Crestor Tab) 10 mg HS PO 01/11/17 21:00 02/10/17 20:59 01/22/17 20:37 10 MG Senna/Docusate Sodium (Senokot S Tab) 1 tab BID PO 01/11/17 09:00 02/10/17 08:59 01/23/17 07:49 1 TAB Sevelamer HCl (Renagel Tab) 800 mg TIDM PO 01/11/17 07:30 02/10/17 07:29 01/23/17 07:49 800 MG Insulin Aspart (novoLOG ASPART) SLIDING SCALE If C... ACHS SC 01/11/17 16:15 02/11/17 16:14 01/18/17 21:30 1 UNITS Glucose (Glucose 40% Gel) 15-30 GRAMS 15 GRAMS... UD PRN PO 01/11/17 12:45 02/10/17 12:44 Glucose (Glucose Chew Tab) 4-8 Tablets 4 Tabl... UD PRN PO 01/11/17 12:45 02/10/17 12:44 Dextrose (Dextrose 50% 50ML Syringe) 25-50ML OF 50% DW IV FOR... UD PRN IV 01/11/17 12:45 02/10/17 12:44 01/11/17 15:05 25 ML Glucagon (Glucagon Inj) 1 mg UD PRN SQ 01/11/17 12:45 02/10/17 12:44 Ondansetron HCl (Zofran Inj) 4 mg Q8H PRN IV 01/12/17 18:00 02/11/17 17:59 01/18/17 07:21 4 MG Acetaminophen (Tylenol Tab) 650 mg Q6H PRN PO 01/14/17 01:15 02/13/17 01:14 01/22/17 19:36 650 MG Polyethylene (Miralax Powder Packet) 17 gm BID PO 01/14/17 21:00 02/13/17 20:59 01/23/17 07:50 17 GM Lidocaine/ Prilocaine (Emla 2.5% Crm) 1 ea UD EXT 01/16/17 10:15 02/15/17 10:14 Hydromorphone HCl (Dilaudid Tab) 1 mg Q4H PRN PO 01/17/17 13:00 01/31/17 12:59 01/20/17 02:43 1 MG Enteral Nutritional Formula (Boost Breeze Nutritional Drink) 1 box TID PO 01/18/17 14:00 02/17/17 13:59 01/22/17 20:36 1 BOX Albuterol Sulfate (Ventolin 0.083% 2.5MG/3ML Neb) 2.5 mg BIDR INH 01/18/17 20:00 02/17/17 19:59 01/23/17 07:17 2.5 MG Nitroglycerin 0.5 inch 0.5 inch Q6H EXT 01/19/17 12:00 02/18/17 11:59 01/23/17 05:27 0.5 INCH Heparin Sodium/ Dextrose (Heparin 25,000 Unit/500ml D5W) 500 ml @ 18 mls/hr Q24H PRN IV 01/19/17 16:00 02/15/17 15:59 01/23/17 00:43 21 MLS/HR Warfarin Sodium (Coumadin Tab) 5 mg DAILY@16 PO 01/21/17 16:00 02/20/17 15:59 01/22/17 15:36 5 MG Impression (1) DVT (deep venous thrombosis) (2) ESRD (end stage renal disease) on dialysis (3) Hypertension (4) Diabetes (5) Anemia Patient admitted for evaluation of dyspnea, found to have LLE DVT but no PE. She has ASCVD and has been on ASA & Plavix chronically as an outpatient. She has required transfusion w/ 4 U PRBC 09/19 due to LGI bleeding. She had infiltration and hematoma at AVF site on 01/15/17 now resting AVF. PMH - ESRD on HD MWF at [facility] (HD Rx: 4 hr 2K 2Ca F-160 EDW 74 kg Heparin 2000 bolus / 1000 hourly), ASCVD s/p CABG x 4 1996, cardiac cath 2006 complicated by pseudoaneurysm of the right femoral artery requiring emergency surgical repair, AODM, HTN, PVD w/ carotid stenosis, h/o nephrolithiasis, cholelithiasis, OA, LGI bleeding 09/19 requiring transfusion w/ 4 U PRBC New R IJ THC placed 01/19/17 Recommendations END STAGE RENAL DISEASE: -- HD MWF. -- HD via TDC while AVF hematoma resolves. AVF with good thrill and bruit. Monophasic flow noted distally but unclear at this time what symptoms patient may experience. -- Metabolic profile normal this morning. -- Discussed DRIL procedure w/ patient. She understands the procedure and expressed that she does not feel her symptoms warrant intervention. Follow up with vascular surgery as outpatient. DVT: -- Remains on heparin. No active bleeding. Patient started warfarin 01/20/17. INR is pending this morning ANEMIA: -- Hgb improved to 9.1 following transfusion w/ 1 U PRBC 01/19/17 -- H/H stable. -- Monitor H&H. -- Continue RANJAN w/ HD (48601 units yesterday).
--- NOTE | 2017-01-23 10:08 | CARDIOLOGY PROGRESS NOTE ---
DATE: 01/23/2017 DATE: 01/23/2017. SUBJECTIVE: Mrs. Rahman is resting comfortably in the bedside chair without complaints of chest pain, dyspnea, or palpitations. OBJECTIVE: VITAL SIGNS: Blood pressure 115/69 with a regular pulse of 70. Respiratory rate is 20. The patient is afebrile at 36.4 degrees Celsius. Saturations 95% on 2 liters nasal cannula. NECK: Supple with delayed and prolonged carotid upstrokes. A transmitted murmur is noted bilaterally. Jugular venous pressure is 8 cm of water at 90 degrees. CARDIOVASCULAR EXAMINATION: Reveals a regular rhythm with a 2/6 crescendo decrescendo systolic murmur heard loudest at the base. No diastolic murmurs. No S3 or S4. LUNGS: Clear without rales, rhonchi, or wheezes. ABDOMEN: Obese without bruits. EXTREMITIES: Note hematoma in the left upper extremity which has decreased in size. Trace pretibial edema is noted. LABORATORY DATA: CBC notes hemoglobin of 9.0, hematocrit 27.3, white count 5.4, platelet count 169,000. Electrolytes note a sodium of 136, potassium 4.0, chloride 101, bicarb 25, BUN 18, creatinine 3.0, glucose 132. PTT is 90.7. lunchroom monitor is benign. IMPRESSION AND PLAN: 1. Coronary artery disease -- quiescent on current medications. Coronary anatomy described in note dated 01/19/2017. Continue conservative medical care at the patient's request. 2. Moderate aortic stenosis. 3. Moderate mitral regurgitation. 4. Left lower extremity deep venous thrombosis -- transition to Coumadin. 5. Paroxysmal atrial fibrillation -- continue amiodarone. 6. Nonsustained ventricular tachycardia. 7. Hypertension -- controlled. 8. Hypercholesterolemia -- continue statin. 9. Chronic renal failure -- continue hemodialysis. 10. Arteriovenous fistula -- status post DRIL procedure last week.
[2017-01-23] MEDS ORDERED: CMD5 PO (10:34)
[2017-01-23] MEDS ORDERED: ISOS30TA35 PO (10:34)
[2017-01-23] MEDS ORDERED: ACET325T96 PO (10:34)
--- NOTE | 2017-01-23 10:45 | Discharge Instructions ---
Discharge Instructions Date of Service January 23, 2017. Admission Reason for Admission: Dvt, Hypoxia, Pulmonary Embolism Discharge Discharge Diagnosis / Problem: L Leg Blood Clot Discharge Goals Goal(s): Decrease discomfort, Improve function, Increase independence Activity Recommendations Activity Limitations: as noted below Lifting Limitations: until after follow-up appointment (Dr. Rohca) Exercise/Sports Limitations: gradually increase as tolerated . Instructions / Follow-Up Instructions / Follow-Up Acute L Leg DVT: - Your coumadin level is at a good level at 2.3 would recommend a coumadin level check in 1-2 days a prescription will be provided - Take Coumadin 2.5 mg daily and this will be adjusted as needed when levels are checked Chest Pain (RESOLVED) - STOP YOUR DAILY ASPIRIN - Continue Plavix and now the Coumadin - To help with your heart disease and chest pain we used a paste to control pain. We will give you a medication that is a pill that is the same medication and is long-acting - Take Imdur (nitroglycerin) 30 mg daily Anemia of Chronic Disease with GI Bleed (September 2016): - Hemoglobin (blood counts) are stable at 9.0 L Arm Pain: Concern for Subclavian Steal Syndrome: - Vascular surgery (Dr. Rocha) - rest fistula and follow-up in office in 2 weeks and can discuss DRIL procedure at that time - You may use Tylenol as needed for pain. Please take as prescribed on bottle. Diabetes with Intermittent Hypoglycemia: A1c 5.4 - Your A1c (shows how sugars are over the past 3 months) suggests that your sugars are well maintain. - You had multiple low sugars here and would recommend stopping your insulin at this time. - During your hospital stay you have only required 1 unit of insulin on one day - Would recommend discussing this with your family doctor and would recommend continuing to check your sugars at home - Hypoglycemia (low sugars) can be more dangerous then slightly higher sugar levels - your sugar levels ranged from 45-200 with most staying around 130-150 Current Hospital Diet Patient's current hospital diet: Diabetes Type 2 Diet, Renal Diet Discharge Diet Recommended Diet: Renal Diet Procedures Procedures Performed: Insertion of Perm Catheter, Right Internal Jugular Approach, Ultrasound Localization of Right Internal Jugular Vein, Fluoroscopy for positioning, Moderate sedation ( [id number]) Pending Studies Studies pending at discharge: no Laboratory Results Hemoglobin A1c Test 01/12/17 05:59 Range/Units Estimated Average Glucose 108 mg/dl Hemoglobin A1c 5.4 4.5-5.6 % Lipid Panel Test 12/14/16 09:36 Range/Units Triglycerides Level 64 0-150 mg/dl Cholesterol Level 156 0-200 mg/dl HDL Cholesterol 85 mg/dl Cholesterol/HDL Ratio 1.8 LDL Cholesterol, Calculated 58 mg/dl Medical Emergencies . Who to Call and When: Medical Emergencies: If at any time you feel your situation is an emergency, please call 911 immediately. . Non-Emergent Contact Non-Emergency issues call your: Primary Care Provider Call Non-Emergent contact if: you have a fever, your pain is concerning you, you have any medication questions . . "Provider Documentation" section prepared by Lia Hoang. . VTE Core Measure Inpt VTE Proph given/why not?: Warfarin (Coumadin)
[2017-01-23] MEDS: ONDANSETRON INJ 2 MG/ML 2 ML VIAL IV PRN (13:09)
[2017-01-23 13:35] VITALS: BP 115/69; PULSE 71; TEMP 36.4; O2SAT 95
[2017-01-23 13:37] LABS: PARTIAL THROMBOPLASTIN RATIO 1.2
[2017-01-23 15:18] VITALS: BP 125/57; PULSE 71; TEMP 36.5; O2SAT 95
[2017-01-23] MEDS: WARFARIN SOD 5 MG TAB PO SCH (16:10)
--- NOTE | 2017-01-23 17:43 | Discharge Summary ---
Discharge Summary Date of Service January 23, 2017. Discharge Summary Admission Date: January 11, 2017 at 02:32 Discharge Date: January 23, 2017 Discharge Disposition: Home with services Principal Diagnosis: Acute L Leg DVT Problems/Secondary Diagnoses: 1. CAD S/P [place]/PTCA of RCA 2. T2DM with Hypoglycemia 3. HLD 4. HTN 5. Anemia of Chronic Disease 6. Diverticulosis with H/O GI Bleed (September 2016) 7. ESRD on HD 8. Diastolic Congestive Heart Failure 9. Carotid Stenosis Immunizations: Have You Had Influenza Vaccine: Yes Influenza Vaccine Date: Apr 17, 2012 History of Tetanus Vaccine?: Yes Tetanus Immunization Date: Dec 16, 2006 History of Pneumococcal: Yes Pneumococcal Date: Dec 17, 2007 History of Hepatitis B Vaccine: No Procedures: 1. ULTRASOUND VENOUS DOPPLER LWR EXT BILA FINDINGS: On the right, no thrombus is visualized within the common femoral, superficial femoral, popliteal, or proximal trifurcation veins. On the left, there is nonocclusive thrombus within the left common femoral through popliteal vein. Calf veins were poorly visualized. IMPRESSION: 1. Extensive acute left lower extremity DVT involving the left common femoral through the popliteal vein. 2. No evidence of right lower extremity DVT 2. CHEST CTA for PULMONARY ARTERIES FINDINGS: Moderate atelectatic change thoracic aorta. No evidence for aneurysm or dissection. Pulmonary arterial vasculature enhances appropriately. There are no significant filling defects. Moderate cardiomegaly. Small bilateral pleural effusions. Findings of developing congestive failure. IMPRESSION: 1. Negative for pulmonary embolus.. 2. Congestive heart failure with small bilateral pleural effusions. 3. LEFT UPPER EXTREMITY ARTERIAL DOPPLER STUDY, DUPLEX HEMODIALYSIS ACCESS STUDY FINDINGS: There is a complex fluid within the mid left upper arm measuring 5.9 x 3.6 x 4.6 cm. This likely represents a hematoma. No thrombus identified within the fistula. Best seen on image 23 of 24 of the hemodialysis study there is smooth focal narrowing within the venous component of the AV fistula measuring a maximal diameter of 2 mm. Normal to elevated velocities seen within the arterial structures of the upper arm. However, there are monophasic low velocity waveforms seen within the radial and ulnar arteries measuring approximately 30 cm/s. IMPRESSION: 1. Low velocity monophasic waveform seen within the radial and ulnar arteries suggesting a steal syndrome. 2. No thrombus identified within the AV fistula. 3. Focal area of smooth narrowing within the venous component of the AV fistula within the mid upper arm measuring a maximal diameter of 2 mm . This suggests chronic scarring. 4. A 5.0 x 3.6 x 4.6 cm hematoma within the left upper arm. 4. Consultations: 1. Cardiology 2. Vascular Surgery 3. Nephrology Medication Reconciliation New Medications: Isosorbide Mononitrate Ext Rel (Imdur Ext Rel) 30 Mg Tabcr 1 TAB PO QAM for 14 Days, #14 TAB Warfarin Sod (Coumadin) 5 Mg Tab 2.5 MG PO DAILY@16 for 14 Days, TAB Continued Medications: Allopurinol (Zyloprim) 100 Mg Tab 50 MG PO QAM Amiodarone Hcl (Cordarone) 200 Mg Tab 200 MG PO QAM Clopidogrel (Plavix) 75 Mg Tab 75 MG PO HS, 0 Refills Hydrocodone W/ Homatropine (Hycodan 5/1.5MG 5 Ml) 1 Syp Syp 1 TSP PO Q4 PRN for Cough Multiple Vitamin (Renal Multivitamin Formul) 1 Tab Tab 2 TABS PO QAM Nutritional Supplements (Colon Formula) 1 Cap Cap 1 CAP PO QAM Pantoprazole (Protonix) 40 Mg Tab 40 MG PO QAM Rosuvastatin Calcium (Crestor) 10 Mg Tab 10 MG PO HS, TAB Sennosides-Docusate Sodium (Stool Softener) 1 Tab Tab 1 TAB PO BID Sevelamer Carbonate (Renvela) 800 Mg Tab 800 MG PO WM Discontinued Medications: Aspirin (Aspirin Ec) 81 Mg Tab 81 MG PO HS Insulin Human NPH (Novolin N) 100 Units/Ml Susp 10 UNITS SQ QAM Prednisone (Prednisone) 10 Mg Tab PO UD TAKE 4 TABS DAILY FOR 3 DAYS THEN 3 TABS FOR 3 DAYS AND SO ON Discharge Exam Review of Systems: Constitutional: No chills, No fever Eyes: No worsening of vision Respiratory: + cough, No shortness of breath Cardiovascular: No chest pain, No palpitations Abdomen: No GI bleeding, No constipation, No diarrhea, No nausea, No pain, No vomiting Musculoskeletal: + joint pain (LUE pain 2/2 fistula repair (improving)), + swelling (LUE swelling (improving)) Genitourinary - Female: No dysuria Genitourinary - Male: No dysuria Physical Exam: General Appearance: WD/WN, no apparent distress Eyes: sclerae normal ENT: hearing grossly normal Neck: supple, no JVD, trachea midline Respiratory/Chest: no respiratory distress, no accessory muscle use, + crackles (bases bilat) Cardiovascular: regular rate, rhythm, no gallop, + systolic murmur Abdomen / GI: normal bowel sounds, non tender, soft Extremities: no calf tenderness, no pedal edema Neurologic/Psychiatric: alert, oriented x 3 Skin: normal color, warm/dry, + pertinent finding (diffuse ecchymosis of LUE ) Hospital Course ADMISSION: Mrs Rahman is an 86 year old female who presents to the ER with 3 hours of chest pain. This was on the left side of her chest, sharp, severity 5/ 10, associated shortness of breath and mild diaphoresis. She denies any nausea. She has also had progressively worsening left leg swelling and pain for weeks although her left leg has always been slightly larger than her right after her vein graft for her CABG. In the ER she had a US doppler of both legs with the left showing a non occlusive common femoral vein through popliteal vein DVT. She also had an elevated troponin. HOSPITAL COURSE: Ms. Rahman is an 86 y/o female with PMHx of ESRD on HD and GI Bleed (September 2016) who presents with CP with active DVT in left leg. Resolved heparin bridge with Coumadin instead of IVC filter. Also complaining of LUE pain with concern from subclavian steal syndrome and was evaluated by vascular surgery. Plan for outpatient DRIL (patient does not feel she wants to do this intervention) Acute L Leg DVT: - Heparin bridge for Coumadin (started 01/20) with current INR 2.3 - plan to obtain INR in 1-2 days as outpatient with Coumadin adjusted accordingly - Plan to continue Coumadin 2.5 mg daily at this time until recheck Chest Pain (RESOLVED)/CAD/Aortic Stenosis/Mitral Regurg/Demand Ischemia: - Echo - mild concentric LVH, low normal EF, regional wall motion abnormalities -- severely dilated L atrium, mildly dilated R atrium, mod , mod MR - Continued Plavix 75 mg daily with ASA 81 mg daily D/C'd due to bleeding concerns - Rosuvastatin 10 mg daily - Nitroglycerin 0.5 inch Q6H was used in hospital - prescribed Imdur 30 mg daily for anginal pain as she responded adequately with nitropaste -- Was on this previously and reviewed cardiology note that stated ACEI and BB D/C'd due to hypotension. -- Was previously on Imdur - discussed with daughters that this can be discussed with Dr. 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: - Vascular surgery following - rest fistula and F/U x 2 weeks - DRIL discussion at that time Paroxysmal Atrial Fibrillation: - Amiodarone 200 mg daily - Anticoagulation with heparin/coumadin bridge ESRD on HD MWF: - Removed permcath 01/12 with new R IJ permcath 01/19 - Renal dosing and avoid nephrotoxic agents - Renagel 800 mg TID T2DM with Intermittent Hypoglycemia: A1c 5.4 - During admission patient only required 1 unit of insulin - discussed with patient to continue monitoring glucose levels but would recommend stopping insulin therapy - More concerning for hypoglycemia then hyperglycemia - should be monitored Code Status: DO NOT RESUSCITATE Disposition: - F/U PCP appt with Lizy Landis - January 30 at 12 PM - Has 24/7 caregivers and home O2 established Total Time Spent: Greater than 30 minutes This includes examination of the patient, discharge planning, medication reconciliation, and communication with other providers. Discharge Instructions Please refer to the electronic Patient Visit Report (Discharge Instructions) for additional information. Additional Copies To Cooper Hart M.D.; Lizy Landis, MARYCARMEN
[2017-01-24] MEDS ORDERED: EPOETIN ALFA 10,000 UNITS/ML VIAL IV. SCH (07:00)
[2017-01-24] MEDS ORDERED: SODIUM CHLORIDE 3% INJ 500 ML IV PRN (07:00)
[2017-01-24] MEDS ORDERED: IRON SUCROSE INJ 100 MG in SYRINGE 0 ML IV SCH (07:00)
[2017-01-24] MEDS ORDERED: WARFARIN SOD 2.5 MG TAB PO SCH (16:00)
[2017-03-18] MEDS ORDERED: [UNRECOGNIZED DRUG - CODE] PO (11:29)
[2017-03-18] MEDS ORDERED: VANC1INJ72 IV (11:29)
[2017-04-23] MEDS ORDERED: SULF1TAB92 PO (15:25)
[2017-04-23] MEDS ORDERED: CEPH500C PO (15:25)
[2017-06-09] MEDS ORDERED: RXC5 PO (10:51)
[2017-06-27] MEDS ORDERED: [UNRECOGNIZED DRUG - CODE] PO (01:38)
[2017-06-27] MEDS ORDERED: NUTRCAP11 PO (01:38)
[2017-06-27] MEDS ORDERED: PANT40TA PO (07:24)
[2017-06-27] MEDS ORDERED: POLY335019 PO (10:39)
[2017-06-27] MEDS ORDERED: IPRASOL4 INH (10:39)
[2017-06-27] MEDS ORDERED: NTRGSL/4 UT (10:39)
[2017-06-27] MEDS ORDERED: SENNTAB23 PO (12:24)
[2017-06-27] MEDS ORDERED: CRS/10 PO (15:17)
[2017-06-27] MEDS ORDERED: AMIO200T4 PO (19:03)
[2017-06-27] MEDS ORDERED: OXYC1TAB3 PO (19:28)
[2017-06-27] MEDS ORDERED: SEVE1TAB PO (19:28)
[2017-06-27] MEDS ORDERED: WARF4TAB43 PO (19:31)
[2017-06-27] MEDS ORDERED: HYDR-4313 PO (19:31)
[2017-06-27] MEDS ORDERED: PLV75 PO (19:31)
[2017-06-27] MEDS ORDERED: ALLO100T PO (23:27)
[2017-07-01] MEDS ORDERED: LEVO-18 PO (12:38)
[2017-07-27] MEDS ORDERED: GFNSR600 PO (14:45)
[2017-07-27] MEDS ORDERED: SALI0.6510 (14:45)
[2017-07-27] MEDS ORDERED: FLNIN (14:45)
[2017-07-27] MEDS ORDERED: BENZ100C7 PO (14:45)
[2017-07-27] MEDS ORDERED: PRD5 PO (14:45)
[2017-07-27] MEDS ORDERED: GUAISYP4 PO (14:45)
== END 2017-01-23 19:00 | disposition home health service (06) | DRG 299 ==
LOC: ENRESERVDT → ENRESERVTM → C.EDB 23:53 → C.2T 01-11 02:32
PROVIDERS: ADMIT Hospitalist; ATTEND Hospitalist
PROC: 0JPT3XZ Removal of Tunneled Vascular Access Device from Trunk Subcutaneous Tissue and Fascia, Percutaneous Approach (ICD-10-PCS; principal; 2017-01-12 10:15)
PROC: 05PY33Z Removal of Infusion Device from Upper Vein, Percutaneous Approach (ICD-10-PCS; principal; 2017-01-12 10:15)
PROC: 0JH60XZ Insertion of Tunneled Vascular Access Device into Chest Subcutaneous Tissue and Fascia, Open Approach (ICD-10-PCS; 2017-01-19)
PROC: 02HV33Z Insertion of Infusion Device into Superior Vena Cava, Percutaneous Approach (ICD-10-PCS; 2017-01-19)
DX: I82.412 Acute embolism and thrombosis of left femoral vein (principal); N18.6 End stage renal disease; G45.8 Other transient cerebral ischemic attacks and related syndromes; I24.8 Other forms of acute ischemic heart disease; I13.2 Hypertensive heart and chronic kidney disease with heart failure and with stage 5 chronic kidney disease, or end stage renal disease; I82.432 Acute embolism and thrombosis of left popliteal vein; I08.0 Rheumatic disorders of both mitral and aortic valves; D63.1 Anemia in chronic kidney disease; E11.649 Type 2 diabetes mellitus with hypoglycemia without coma; E11.22 Type 2 diabetes mellitus with diabetic chronic kidney disease; E11.51 Type 2 diabetes mellitus with diabetic peripheral angiopathy without gangrene; I48.0 Paroxysmal atrial fibrillation; I25.10 Atherosclerotic heart disease of native coronary artery without angina pectoris; I25.2 Old myocardial infarction; E78.00 Pure hypercholesterolemia, unspecified; Z79.899 Other long term (current) drug therapy; Z79.02 Long term (current) use of antithrombotics/antiplatelets; Z79.82 Long term (current) use of aspirin; Z79.84 Long term (current) use of oral hypoglycemic drugs; Z79.52 Long term (current) use of systemic steroids; Z99.2 Dependence on renal dialysis; Z99.81 Dependence on supplemental oxygen; Z66 Do not resuscitate; Z86.718 Personal history of other venous thrombosis and embolism; Z86.711 Personal history of pulmonary embolism; Z87.19 Personal history of other diseases of the digestive system; Z95.1 Presence of aortocoronary bypass graft; Z95.5 Presence of coronary angioplasty implant and graft; Z84.1 Family history of disorders of kidney and ureter; Z83.3 Family history of diabetes mellitus; Z82.49 Family history of ischemic heart disease and other diseases of the circulatory system; Z82.3 Family history of stroke; Z80.3 Family history of malignant neoplasm of breast; J45.909 Unspecified asthma, uncomplicated; R09.89 Other specified symptoms and signs involving the circulatory and respiratory systems

== ENCOUNTER 2017-01-26 20:00 | Emergency (ER) | payer OTHER ==
[~2017-01-26] VITALS: Ht 165.1 cm; Wt 75.0 kg
[~2017-01-26 20:00] MED LIST changes: -ALBU1AER9 INH; -ASPI81TA28 PO; +CMD5 PO; +HYDR5SYP11 PO; -INSHNI SQ; -IPRASOL4 INH; +ISOS30TA35 PO; -ISOS60TA25 PO; -METO25TA3 PO; -NTRGSL/4 UT; -PHS667 PO; -PRED10TA PO; -PROB1TAB16 PO; +SEVE800T7 PO
[2017-01-26 20:03] VITALS: TEMP 36.7; Ht 165.1 cm; Wt 75.0 kg
--- NOTE | 2017-01-26 20:50 | EMERGENCY ROOM VISIT NOTE ---
History Report prepared by Barbara: Britt Holland Under the Supervision of: Dr. Vipul Rowan D.O. First contact with patient: 20:19 Chief Complaint: ABNORMAL LABS Stated Complaint: INR HIGH WEAK DIZZY History of Present Illness The patient is an 86 year old female who presents to the Emergency Room with complaints of abnormal labs earlier today. Her INR was found to be 7.3. She was referred to the ED by her PCP. She reports SOB and weakness. She denies any melena, hematochezia, abdominal pain, or vomiting. Her legs are swollen, but not more than usual. She denies any bleeding currently. She is usually on 2L of oxygen, but has increased it to 2.5 L recently. She is on Coumadin for DVT. She had a GI bleed in September. Source of History: patient, family Onset: earlier today Position: other (global) Symptom Intensity: INR 7.3 Quality: other (elevated INR) Timing: other (persistent) Associated Symptoms: + SOB, + weakness, No abdominal pain, No hematochezia, No melena, No vomiting Note: Pt denies bleeding currently. Review of Systems See HPI for pertinent positives & negatives. A total of 10 systems reviewed and were otherwise negative. Past Medical & Surgical Medical Problems: (1) Ac Myocrd Infrct,Oth Inferior Wall,Subseq Epis Car (2) Acute kidney injury (3) Anemia (4) Aortocoronary Bypass (5) Bronchopneumonia (6) CHF exacerbation (7) Chronic Kidney Disease, Stage Iii (Moderate) (8) Chronic kidney disease, stage IV (severe) (9) Chronic kidney disease, stage V (10) Coronary artery disease (11) Coronary Atherosclerosis Of [place] Coronary Vessel (12) Diab Qiana Wo Compl, Type Ii Or Unspec Type, Not Uncntrld (13) Diabetes (14) DVT (deep venous thrombosis) (15) Dyspnea (16) 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 (17) ESRD (end stage renal disease) on dialysis (18) Hypertension (19) Hypertension Nos (20) Hypoxia (21) Knee Joint Replacement Status (22) New onset atrial fibrillation (23) NSTEMI (non-ST elevated myocardial infarction) (24) NSTEMI (non-ST elevated myocardial infarction) (25) Old Myocardial Infarct (26) Percutaneous Translum Coron Angioplasty Status (27) Peripheral vascular disease (28) Pneumonia, Organism Nos (29) Prolonged Q-T interval on ECG (30) Pulmonary embolism (31) Pure Hypercholesterolem (32) Rectal bleeding (33) Shortness of breath (34) Urin Tract Infection Nos Family History Asthma Cancer SISTER (Breast cancer) Chronic kidney disease MOTHER Diabetes mellitus FATHER Heart disease FATHER Hypertension FATHER MOTHER Kidney disease Kidney stones Stroke Social History Smoking Status: Never Smoker Alcohol Use: none Drug Use: none Marital Status: Housing Status: lives alone Occupation Status: retired Current/Historical Medications Scheduled Allopurinol (Zyloprim), 50 MG PO QAM Amiodarone Hcl (Cordarone), 200 MG PO QAM Clopidogrel (Plavix), 75 MG PO HS Isosorbide Mononitrate Ext Rel (Imdur Ext Rel), 1 TAB PO QAM Multiple Vitamin (Renal Multivitamin Formul), 2 TABS PO QAM Nutritional Supplements (Colon Formula), 1 CAP PO QAM Pantoprazole (Protonix), 40 MG PO QAM Rosuvastatin Calcium (Crestor), 10 MG PO HS Sennosides-Docusate Sodium (Stool Softener), 1 TAB PO BID Sevelamer Carbonate (Renvela), 800 MG PO WM Warfarin Sod (Coumadin), 2.5 MG PO DAILY@16 Scheduled PRN Hydrocodone W/ Homatropine (Hycodan 5/1.5MG 5 Ml), 1 TSP PO Q4 PRN for Cough Allergies Coded Allergies: No Known Allergies (Unverified , 01/11/17) Physical Exam Vital Signs Date Time Temp Pulse Resp B/P Pulse Ox O2 Delivery O2 Flow Rate FiO2 01/26/17 23:48 70 20 130/71 99 Nasal Cannula 2.0 01/26/17 22:35 74 20 115/54 100 Nasal Cannula 2.0 01/26/17 21:01 71 01/26/17 20:03 36.7 92 20 112/51 93 Nasal Cannula 2.5 Physical Exam GENERAL: Patient is awake, alert, does not appear to be in pain or anxious, appears somewhat comfortable. EYES: The conjunctivae are clear. The pupils are round and reactive. EARS, NOSE, MOUTH AND THROAT: The nose is without any evidence of any deformity. Mucous membranes are moist tongue is midline NECK: The neck is nontender and supple. RESPIRATORY: Lung sounds diminished throughout, rales in both lower lung cary , mild tachypnea appreciated. CARDIOVASCULAR: Regular rate and rhythm to auscultations, systolic murmur suggested on auscultation. GASTROINTESTINAL: The abdomen is soft. Bowel sounds are present in all quadrants. Abdomen is nontender MUSCULOSKELETAL/EXTREMITIES: There is no evidence of gross deformity full range of motion is noted in the hips and shoulders SKIN: Pedal edema bilaterally, diffuse ecchymosis noted over both upper and lower extremities. NEUROLOGIC: Patient is awake alert and oriented x3 Medical Decision & Procedures ER Provider Diagnostic Interpretation: X-ray results as stated below per interpretation by me and the radiologist. CHEST ONE VIEW PORTABLE CLINICAL HISTORY: Shortness of breath. Elevated INR. COMPARISON STUDY: Chest radiograph and chest CT January 11, 2017. FINDINGS: A right internal jugular dual-lumen catheter remains in place. There are median sternotomy wires and mediastinal surgical clips. Moderate cardiomegaly is unchanged. Small left and trace right pleural effusions persist. Left lower lung opacity favors atelectasis. There is no pneumothorax. Mild interstitial pulmonary edema is similar to prior exam. IMPRESSION: No significant change in mild pulmonary edema and small bilateral pleural effusions. Electronically signed by: Timmy Candelaria M.D. 01/26/2017 9:08 PM Dictated Date/Time: 01/26/2017 9:03 PM Laboratory Results 01/26/17 22:26 Red Blood Count 2.74, Mean Corpuscular Volume 100.7, Mean Corpuscular Hemoglobin 33.6, Mean Corpuscular Hemoglobin Concent 33.3, Mean Platelet Volume 9.7, Neutrophils (%) (Auto) 71.7, Lymphocytes (%) (Auto) 12.5, Monocytes (%) ( Auto) 12.3, Eosinophils (%) (Auto) 2.9, Basophils (%) (Auto) 0.3, Neutrophils # (Auto) 5.12, Lymphocytes # (Auto) 0.89, Monocytes # (Auto) 0.88, Eosinophils # ( Auto) 0.21, Basophils # (Auto) 0.02 01/26/17 22:26 Test 01/26/17 22:26 White Blood Count 7.14 K/uL (4.8-10.8) Red Blood Count 2.74 M/uL (4.2-5.4) Hemoglobin 9.2 g/dL (12.0-16.0) Hematocrit 27.6 % (37-47) Mean Corpuscular Volume 100.7 fL (80-100) Mean Corpuscular Hemoglobin 33.6 pg (25-34) Mean Corpuscular Hemoglobin Concent 33.3 g/dl (32-36) Platelet Count 227 K/uL (130-400) Mean Platelet Volume 9.7 fL (7.4-10.4) Neutrophils (%) (Auto) 71.7 % Lymphocytes (%) (Auto) 12.5 % Monocytes (%) (Auto) 12.3 % Eosinophils (%) (Auto) 2.9 % Basophils (%) (Auto) 0.3 % Neutrophils # (Auto) 5.12 K/uL (1.4-6.5) Lymphocytes # (Auto) 0.89 K/uL (1.2-3.4) Monocytes # (Auto) 0.88 K/uL (0.11-0.59) Eosinophils # (Auto) 0.21 K/uL (0-0.5) Basophils # (Auto) 0.02 K/uL (0-0.2) RDW Standard Deviation 60.8 fL (36.4-46.3) RDW Coefficient of Variation 17.5 % (11.5-14.5) Immature Granulocyte % (Auto) 0.3 % Immature Granulocyte # (Auto) 0.02 K/uL (0.00-0.02) Prothrombin Time 77.4 SECONDS (9.0-12.0) Prothromb Time International Ratio 6.7 (0.9-1.1) Activated Partial Thromboplast Time 51.6 SECONDS (21.0-31.0) Partial Thromboplastin Ratio 2.0 Anion Gap 6.0 mmol/L (3-11) Est Creatinine Clear Calc Drug Dose 18.1 ml/min Estimated GFR () 21.7 Estimated GFR (Non- 18.8 BUN/Creatinine Ratio 9.0 (10-20) Calcium Level 8.4 mg/dl (8.5-10.1) Magnesium Level 2.3 mg/dl (1.8-2.4) Total Bilirubin 0.6 mg/dl (0.2-1) Direct Bilirubin 0.2 mg/dl (0-0.2) Aspartate Amino Transf (AST/SGOT) 11 U/L (15-37) Alanine Aminotransferase (ALT/SGPT) 9 U/L (12-78) Alkaline Phosphatase 61 U/L (45-117) Total Creatine Kinase 16 U/L (26-192) Creatine Kinase MB 1.0 ng/ml (0.5-3.6) Creatine Kinase MB Ratio 6.3 (0-3.0) Troponin I 0.106 ng/ml (0-0.045) Pro-B-Type Natriuretic Peptide > 17173 pg/ml (0-1800) Total Protein 6.6 gm/dl (6.4-8.2) Albumin 2.5 gm/dl (3.4-5.0) Lipase 84 U/L (73-393) Laboratory results per my review. ECG Indication: weakness Rate (beats per minute): 70 Rhythm: sinus rhythm Findings: 1st degree AV block, LBBB, other (no PVC) Comparison ECG Date: 17-Jan-2017 Change: no significant change ED Course 2020: The patient was evaluated in room A11B. A complete history and physical examination were performed. 2325: Upon reevaluation, the patient is resting comfortably. I discussed the results and treatment plan with her. Case management will contact home health to set up a Coumadin level test. She verbalized agreement of the treatment plan. She was discharged home. Medical Decision Prior records/ancillary studies reviewed. Triage Nursing notes reviewed. Additional history obtained from the family. Medication Reconciliation: I attest that I have personally reviewed the patient' s current medications list. The patient's history was concerning for respiratory difficulties. Differential diagnosis: Etiologies such as infections, reactive airway disease, pneumonia, pneumothorax , COPD, CHF, cardiac ischemia, pulmonary embolism, musculoskeletal, gastrointestinal, as well as others were entertained. Blood pressure screening: Patient was found to have normal blood pressure on screening and does not require follow-up. The patient is an 86-year-old female who presented to the emergency department for an evaluation of elevated INR. The patient was found have an elevated INR on outpatient laboratory studies and was told to come to the emergency department by her primary care physician group. The patient does not have any active bleeding. I discussed the patient's laboratory and radiographic studies with her and her family members. Her laboratory studies appear to be very close to baseline if not somewhat improved. She does have an elevated troponin but this appears to be chronically elevated likely secondary to chronic renal failure. The patient was told to hold her Coumadin for 2 more doses and was given an order to have her INR rechecked on Sunday which is 2 days from now. I discussed her case with the emergency Department case management assistant. They independently talked to the patient and her family to try to come up with a better outpatient plan. The patient was encouraged to return to the emergency department immediately if symptoms change worsen or the need arises. Otherwise she was encouraged to have her INR rechecked again in 48 hours. Impression Primary Impression: Elevated INR Additional Impressions: Weakness Anemia Scribe Attestation The scribe's documentation has been prepared under my direction and personally reviewed by me in its entirety. I confirm that the note above accurately reflects all work, treatment, procedures, and medical decision making performed by me. Departure Information Dispostion Home / Self-Care Referrals Cooper Hart M.D. (PCP) Forms HOME CARE DOCUMENTATION FORM, IMPORTANT VISIT INFORMATION, WORK / SCHOOL INSTRUCTIONS Patient Instructions Coumadin, ED Weakness LISBET, My [facility] Additional Instructions Hold your Coumadin until you have your level drawn on Sunday. Continue all other medications as prescribed. Rest and avoid any strenuous activity. Return to the emergency department immediately if symptoms change worsen or the need arises. Problem Qualifiers
--- NOTE | 2017-01-26 21:09 | DIAGNOSTIC IMAGING REPORT ---
CHEST ONE VIEW PORTABLE CLINICAL HISTORY: Shortness of breath. Elevated INR. COMPARISON STUDY: Chest radiograph and chest CT January 11, 2017. FINDINGS: A right internal jugular dual-lumen catheter remains in place. There are median sternotomy wires and mediastinal surgical clips. Moderate cardiomegaly is unchanged. Small left and trace right pleural effusions persist. Left lower lung opacity favors atelectasis. There is no pneumothorax. Mild interstitial pulmonary edema is similar to prior exam. IMPRESSION: No significant change in mild pulmonary edema and small bilateral pleural effusions. Electronically signed by: Timmy Candelaria M.D. 01/26/2017 9:08 PM Dictated Date/Time: 01/26/2017 9:03 PM
[2017-01-26 22:45] LABS: BASO % 0.3 %; BASO ABS # 0.02 K/uL (0-0.2); COMPLETE YES; EOS % 2.9 %; HEMATOCRIT 27.6 % (37-47); IG% 0.3 %; LYMPH % 12.5 %; LYMPH ABS # 0.89 K/uL (1.2-3.4); MEAN CELL VOLUME 100.7 fL (80-100); MEAN CORPUSCULAR HEMOGLOBIN 33.6 pg (25-34); MEAN CORPUSCULAR HGB CONC 33.3 g/dl (32-36); MEAN PLATELET VOLUME 9.7 fL (7.4-10.4); MONO % 12.3 %; NEUT % 71.7 %; PLATELET COUNT 227 K/uL (130-400); RED BLOOD COUNT 2.74 M/uL (4.2-5.4); WHITE BLOOD COUNT 7.14 K/uL (4.8-10.8)
[2017-01-26 23:04] LABS: ALT/SGPT 9 U/L (12-78); AST/SGOT 11 U/L (15-37); BLOOD UREA NITROGEN 21 mg/dl (7-18); CALCIUM 8.4 mg/dl (8.5-10.1); CARBON DIOXIDE 33 mmol/L (21-32); CHLORIDE 100 mmol/L (98-107); GLUCOSE 133 mg/dl (70-99); MAGNESIUM 2.3 mg/dl (1.8-2.4); POTASSIUM 3.4 mmol/L (3.5-5.1); PROTHROMBIN TIME (PATIENT) 77.4 SECONDS (9.0-12.0); SODIUM 139 mmol/L (136-145)
[2017-01-26 23:06] LABS: INR 6.7 (0.9-1.1)
[2017-01-26 23:09] LABS: ALKALINE PHOSPHATASE 61 U/L (45-117); CKMB/CK RATIO 6.3 (0-3.0)
[2017-01-26 23:48] VITALS: BP 130/71; PULSE 70; O2SAT 99
[2017-03-18] MEDS ORDERED: [UNRECOGNIZED DRUG - CODE] PO (11:29)
[2017-03-18] MEDS ORDERED: VANC1INJ72 IV (11:29)
[2017-04-23] MEDS ORDERED: SULF1TAB92 PO (15:25)
[2017-04-23] MEDS ORDERED: CEPH500C PO (15:25)
[2017-06-09] MEDS ORDERED: RXC5 PO (10:51)
[2017-06-27] MEDS ORDERED: NUTRCAP11 PO (01:38)
[2017-06-27] MEDS ORDERED: [UNRECOGNIZED DRUG - CODE] PO (01:38)
[2017-06-27] MEDS ORDERED: PANT40TA PO (07:24)
[2017-06-27] MEDS ORDERED: POLY335019 PO (10:39)
[2017-06-27] MEDS ORDERED: IPRASOL4 INH (10:39)
[2017-06-27] MEDS ORDERED: NTRGSL/4 UT (10:39)
[2017-06-27] MEDS ORDERED: SENNTAB23 PO (12:24)
[2017-06-27] MEDS ORDERED: CRS/10 PO (15:17)
[2017-06-27] MEDS ORDERED: AMIO200T4 PO (19:03)
[2017-06-27] MEDS ORDERED: OXYC1TAB3 PO (19:28)
[2017-06-27] MEDS ORDERED: SEVE1TAB PO (19:28)
[2017-06-27] MEDS ORDERED: WARF4TAB43 PO (19:31)
[2017-06-27] MEDS ORDERED: PLV75 PO (19:31)
[2017-06-27] MEDS ORDERED: HYDR-4313 PO (19:31)
[2017-06-27] MEDS ORDERED: ALLO100T PO (23:27)
[2017-07-01] MEDS ORDERED: LEVO-18 PO (12:38)
[2017-07-27] MEDS ORDERED: PRD5 PO (14:45)
[2017-07-27] MEDS ORDERED: GUAISYP4 PO (14:45)
[2017-07-27] MEDS ORDERED: BENZ100C7 PO (14:45)
[2017-07-27] MEDS ORDERED: GFNSR600 PO (14:45)
[2017-07-27] MEDS ORDERED: SALI0.6510 (14:45)
[2017-07-27] MEDS ORDERED: FLNIN (14:45)
== END 2017-01-26 23:55 | disposition home or self-care (01) ==
LOC: C.EDB 20:01 → C.EDA 23:55
DX: R82.5 Elevated urine levels of drugs, medicaments and biological substances (principal); R53.1 Weakness; D64.9 Anemia, unspecified; R79.9 Abnormal finding of blood chemistry, unspecified; I22.1 Subsequent ST elevation (STEMI) myocardial infarction of inferior wall; I50.9 Heart failure, unspecified; N18.4 Chronic kidney disease, stage 4 (severe); I25.10 Atherosclerotic heart disease of native coronary artery without angina pectoris; E11.9 Type 2 diabetes mellitus without complications; R06.00 Dyspnea, unspecified; N18.6 End stage renal disease; Z99.2 Dependence on renal dialysis; I10 Essential (primary) hypertension; R09.02 Hypoxemia; I25.2 Old myocardial infarction; Z82.5 Family history of asthma and other chronic lower respiratory diseases; Z83.3 Family history of diabetes mellitus; Z82.49 Family history of ischemic heart disease and other diseases of the circulatory system; Z82.3 Family history of stroke; Z79.01 Long term (current) use of anticoagulants; I82.409 Acute embolism and thrombosis of unspecified deep veins of unspecified lower extremity

== ENCOUNTER 2017-03-14 09:51 | Inpatient (IN) | payer OTHER ==
[~2017-03-14] VITALS: Ht 167.6 cm; Wt 75.9 kg
[2017-03-14] VITALS (10 sets, daily range): BP systolic 88–122; BP diastolic 35–56; PULSE 68–84; TEMP 36.5–36.8; O2SAT 92–98; Ht 167.6 cm; Wt 75.9 kg
[~2017-03-14 09:51] MED LIST changes: +ALLO100T PO; +AMIO200T4 PO; +CRS/10 PO; -ISOS30TA35 PO; +NUTRCAP11 PO; +PANT40TA PO; +SENNTAB23 PO; +[UNRECOGNIZED DRUG - CODE] PO
--- NOTE | 2017-03-14 10:18 | EMERGENCY ROOM VISIT NOTE ---
History Report prepared by Barbara: Irvin Odonnell Under the Supervision of: Dr. Elio Abreu M.D. First contact with patient: 09:54 Stated Complaint: CHEST PAIN History of Present Illness The patient is a 87 year old female who presents to the Emergency Room with complaints of constant chest pain starting around 0600 this morning. She rates her pain as a 7/10 in severity and reports that the pain radiates from between her shoulder blades to her left shoulder. She reports that she was also experiencing clamminess, diaphoresis, and shortness of breath. She was brought into the ED via EMS where they gave her aspirin. She states that she is currently only experiencing chest pain and shortness of breath. The patient states that she has had similar symptoms before, but states that there was no pain then. The patient reports that she normally is on oxygen at night. She also reports that she is on dialysis and is due today. The patient denies any fevers. Source of History: patient Onset: 0600 this morning Position: chest Symptom Intensity: 7/10 Timing: constant Modifying Factors (Relieving): other (aspirin) Associated Symptoms: + diaphoresis, + SOB, + nausea, No fevers Review of Systems See HPI for pertinent positives & negatives. A total of 10 systems reviewed and were otherwise negative. 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 (17) ESRD (end stage renal disease) on dialysis (18) Hypertension (19) Hypertension Nos (20) Hypotension (21) Hypoxia (22) Knee Joint Replacement Status (23) Leukocytosis (24) New onset atrial fibrillation (25) NSTEMI (non-ST elevated myocardial infarction) (26) NSTEMI (non-ST elevated myocardial infarction) (27) Old Myocardial Infarct (28) Percutaneous Translum Coron Angioplasty Status (29) Peripheral vascular disease (30) Pneumonia, Organism Nos (31) Prolonged Q-T interval on ECG (32) Pulmonary embolism (33) Pure Hypercholesterolem (34) Rectal bleeding (35) Shortness of breath (36) Urin Tract Infection Nos Old medical records were reviewed. Nurse's notes were reviewed and I agree with. Family History Asthma Cancer SISTER (Breast cancer) Chronic kidney disease MOTHER Diabetes mellitus FATHER Heart disease FATHER Hypertension FATHER MOTHER Kidney disease Kidney stones Stroke Social History Smoking Status: Never Smoker Alcohol Use: none Drug Use: none Marital Status: Housing Status: lives alone Occupation Status: retired Current/Historical Medications Scheduled Allopurinol (Zyloprim), 50 MG PO QAM Amiodarone Hcl (Cordarone), 200 MG PO QAM Clopidogrel (Plavix), 75 MG PO HS Multiple Vitamin (Renal Multivitamin Formul), 2 TABS PO QAM Nitroglycerin (Nitrostat), 0.4 MG UT PRN Nutritional Supplements (Colon Formula), 1 CAP PO QAM Pantoprazole (Protonix), 40 MG PO QAM Polyethylene Glycol 3350 (Miralax), 17 GM PO AMPM Rosuvastatin Calcium (Crestor), 10 MG PO HS Sennosides-Docusate Sodium (Stool Softener), 1 TAB PO BID Sevelamer Carbonate (Renvela), 800 MG PO WM Warfarin Sodium (Warfarin Sodium), 1 TAB PO QPM Scheduled PRN Ipratropium-Albuterol (Duoneb), 1 TREATMENT INH Q4H PRN for SOB/Wheezing Allergies Coded Allergies: No Known Allergies (Unverified , 03/14/17) Physical Exam Vital Signs Date Time Temp Pulse Resp B/P (MAP) Pulse Ox O2 Delivery O2 Flow Rate FiO2 03/14/17 11:44 82 20 72/47 95 Nasal Cannula 2.0 03/14/17 11:26 36.8 84 13 91/48 95 Room Air 03/14/17 10:10 94 Nasal Cannula 2.0 03/14/17 10:01 82 03/14/17 10:01 94 Nasal Cannula 2.0 03/14/17 10:01 36.8 85 13 91/48 94 Nasal Cannula 2.0 Physical Exam General: Well developed well nourished chronically ill appearing older female in no acute distress, breathing comfortably on room air. Normal speech. Wearing supplemental oxygen. HEENT: Normal cephalic atraumatic. Pupils are equal round and reactive to light. Extraocular movements are intact. Oropharynx is pink with moist mucous membranes. No swelling of the mouth lips or tongue. Neck: Supple with a midline trachea. No meningeal signs or stiffness, no JVD or bruits. No Stridor. Chest: Clear to auscultation bilaterally. No wheezes or rhonchi. No increased work of breathing. Heart: regular rate and rhythm. Abdomen: Soft nontender, nondistended without rebound guarding or rigidity. Extremities: Fistula in left arm. Chronic lower extremity edema. No cyanosis clubbing. No calf tenderness or assymetry Spine/Back. Non tender to palpation. No CVA tenderness Skin: Good turgor without rashes. Neurologic exam: Cranial nerves two through 12 are intact. Motor and sensation are intact and symmetrical throughout. Medical Decision & Procedures ER Provider Diagnostic Interpretation: Radiology results as stated below per my review and radiologist interpretation: CHEST ONE VIEW PORTABLE HISTORY:87 yearsFemaleCHEST PAIN COMPARISON: 01/26/2017 TECHNIQUE: Portable upright AP view of the chest. FINDINGS: The cardiac silhouette is again enlarged. There is atherosclerosis of the aorta. Surgical clips seen within the epigastrium. Dual lumen right internal jugular hemodialysis catheter is again seen with distal tip terminating within the region of the mid SVC. No pneumothorax. Small left pleural effusion has increased in size from comparison. There is a persistent trace right pleural effusion. Mild pulmonary edema pattern appears unchanged. Mildly progressive left basilar opacities are noted. Bones appear intact. IMPRESSION: 1. Cardiomegaly with stable appearing mild pulmonary edema. 2. Small left pleural effusion has increased in size from 01/26/2017. 3. Left basilar alveolar opacities suggest atelectasis. The above report was generated using voice recognition software. It may contain grammatical, syntax or spelling errors. Electronically signed by: Rakan Grimes M.D. 03/14/2017 10:24 AM Dictated Date/Time: 03/14/2017 10:21 AM Laboratory Results 03/14/17 10:10 Red Blood Count 3.59, Mean Corpuscular Volume 97.5, Mean Corpuscular Hemoglobin 30.6, Mean Corpuscular Hemoglobin Concent 31.4, Mean Platelet Volume 10.2, Neutrophils (%) (Auto) 90.2, Lymphocytes (%) (Auto) 1.5, Monocytes (%) (Auto) 7.9, Eosinophils (%) (Auto) 0.0, Basophils (%) (Auto) 0.0, Neutrophils # (Auto) 22.05, Lymphocytes # (Auto) 0.36, Monocytes # (Auto) 1.92, Eosinophils # (Auto) 0.01, Basophils # (Auto) 0.01 03/14/17 10:10 Test 03/14/17 10:10 03/14/17 10:20 03/14/17 11:40 White Blood Count 24.44 K/uL (4.8-10.8) Red Blood Count 3.59 M/uL (4.2-5.4) Hemoglobin 11.0 g/dL (12.0-16.0) Hematocrit 35.0 % (37-47) Mean Corpuscular Volume 97.5 fL (80-100) Mean Corpuscular Hemoglobin 30.6 pg (25-34) Mean Corpuscular Hemoglobin Concent 31.4 g/dl (32-36) Platelet Count 173 K/uL (130-400) Mean Platelet Volume 10.2 fL (7.4-10.4) Neutrophils (%) (Auto) 90.2 % Lymphocytes (%) (Auto) 1.5 % Monocytes (%) (Auto) 7.9 % Eosinophils (%) (Auto) 0.0 % Basophils (%) (Auto) 0.0 % Neutrophils # (Auto) 22.05 K/uL (1.4-6.5) Lymphocytes # (Auto) 0.36 K/uL (1.2-3.4) Monocytes # (Auto) 1.92 K/uL (0.11-0.59) Eosinophils # (Auto) 0.01 K/uL (0-0.5) Basophils # (Auto) 0.01 K/uL (0-0.2) RDW Standard Deviation 60.1 fL (36.4-46.3) RDW Coefficient of Variation 17.0 % (11.5-14.5) Immature Granulocyte % (Auto) 0.4 % Immature Granulocyte # (Auto) 0.09 K/uL (0.00-0.02) Prothrombin Time 27.8 SECONDS (9.0-12.0) Prothromb Time International Ratio 2.5 (0.9-1.1) Activated Partial Thromboplast Time 34.1 SECONDS (21.0-31.0) Partial Thromboplastin Ratio 1.3 Anion Gap 12.0 mmol/L (3-11) Est Creatinine Clear Calc Drug Dose 9.2 ml/min Estimated GFR () 9.3 Estimated GFR (Non- 8.1 BUN/Creatinine Ratio 9.7 (10-20) Calcium Level 9.0 mg/dl (8.5-10.1) Total Bilirubin 0.8 mg/dl (0.2-1) Direct Bilirubin 0.2 mg/dl (0-0.2) Aspartate Amino Transf (AST/SGOT) 14 U/L (15-37) Alanine Aminotransferase (ALT/SGPT) 15 U/L (12-78) Alkaline Phosphatase 67 U/L (45-117) Total Creatine Kinase 18 U/L (26-192) Creatine Kinase MB 0.6 ng/ml (0.5-3.6) Creatine Kinase MB Ratio 3.3 (0-3.0) Total Protein 7.1 gm/dl (6.4-8.2) Albumin 2.8 gm/dl (3.4-5.0) Lipase 53 U/L (73-393) Bedside Troponin I 0.150 ng/ml (0-0.045) Bedside Lactic Acid Venous 2.75 mmol/L (0.90-1.70) Laboratory studies as stated above per my review. Medications Administered Medications (Trade) Dose Ordered Sig/Janeth Route Start Time Stop Time Status Last Admin Dose Admin Piperacillin Sod/ Tazobactam Sod (Zosyn Iv) 4.5 gm NOW STAT IV 03/14/17 10:58 03/14/17 11:00 DC 03/14/17 12:03 4.5 GM Sodium Chloride 250 ml @ 999 mls/hr Q16M STAT IV 03/14/17 11:00 03/14/17 11:15 DC 03/14/17 11:43 999 MLS/HR Fentanyl Citrate (Fentanyl Inj) 25 mcg NOW ONCE IV 03/14/17 12:00 03/14/17 12:01 DC 03/14/17 12:03 25 MCG ECG Indication: chest pain Rate (beats per minute): 87 Rhythm: normal sinus Findings: 1st degree AV block, nonspecific-ST abn (Lateral), other (Non specific intra-ventricular conduction delay) Comparison ECG Date: 01/26/2017 Change: T waves more inverted laterally. Another EKG was taken during visit, which showed no significant change to the first EKG. ED Course 0947: Past medical records reviewed. The patient was evaluated in room B09, and a complete history and physical examination were performed. 1021: I reevaluated the patient and she is resting comfortably. Her IV is in and I talked to the daughters at her bedside. 1030: I reevaluated the patient and she is resting comfortably. I discussed her results and treatment plan with her. She agrees to admission. 1058: Zosyn Iv 4.5 gm IV. 1100: I discussed the patient's case with Dr. Kim, [facility] Hospitalist. He understands the patient's condition and agrees to accept the patient. The patient will be further evaluated. 1100: Sodium Chloride 250 @ 999 mls/hr IV. 1200: Fentanyl Injection 25 mcg IV. 1232: I reevaluated the patient and she feels a little better. Her pressure is up to 100 systolic. She will be further evaluated by Dr. Kim. Medical Decision Differentials include, but are not limited to; cardiac disease, pneumothorax, pulmonary embolism, arrhythmia, electrolyte or metabolic abnormality. Medication Reconciliation: I attest that I have personally reviewed the patient' s current medication list. Blood pressure Screening: Patient was found to have normal blood pressure on screening and does not require follow-up. This patient comes in after having chest pain and shortness of breath. She has a very complex medical history and is a dialysis patient. She well initially on my exam and is nondiaphoretic and she is wearing nasal cannula. We did have IV access established. Chest x-ray , EKG, and multiple blood tests was obtained . She did receive aspirin prior to arrival. Her EKG shows non- specific T-wave abnormalities but no definite acute STEMI. Her blood pressure was mildly hypotensive initially in the 90s. She does appear to be fluid overloaded as well with the need for dialysis today and there is concern on her chest x-ray for effusion or possible infection. Blood cultures are been obtained. She was given. Zosyn 4.5 g IV. She was given an IV fluid bolus 250 mL. Her systolic blood pressure would go down in the 70s but also up to the 100s. She intermittently have a significantly did have some chest pain and a second EKG does not show any further changes compared to the first. She doesn 't elevated white count. I'm concerned for the possibility of sepsis/infection but also cardiac disease. Given the fact that she has and stage renal disease and is difficult to treat with fluids as well. She is very complicated. I also talked to the patient and family at length. She is agreement treatment but does not want intubation or aggressive invasive measures at this point. I do think admitted ICU and having multiple consults from further consults is appropriate at this point. I did consult Dr. Walsh to see her in the emergency department. Consults Time Called: 1100 Consulting Physician: Dr. Kim, [facility] Hospitalist Returned Call: 1100 I discussed the patient's case with Dr. Kim [facility] Hospitalist. He understands the patient's condition and agrees to accept the patient. The patient will be further evaluated. Impression Primary Impression: Substernal precordial chest pain Additional Impressions: CHF (congestive heart failure) ESRD (end stage renal disease) on dialysis Sepsis Hypotension Scribe Attestation The scribe's documentation has been prepared under my direction and personally reviewed by me in its entirety. I confirm that the note above accurately reflects all work, treatment, procedures, and medical decision making performed by me. Departure Information Dispostion Being Evaluated By Hospitalist (Dr. Kim) Referrals Cooper Hart M.D. (PCP) Problem Qualifiers
--- NOTE | 2017-03-14 10:26 | DIAGNOSTIC IMAGING REPORT ---
CHEST ONE VIEW PORTABLE HISTORY:87 yearsFemaleCHEST PAIN COMPARISON: 01/26/2017 TECHNIQUE: Portable upright AP view of the chest. FINDINGS: The cardiac silhouette is again enlarged. There is atherosclerosis of the aorta. Surgical clips seen within the epigastrium. Dual lumen right internal jugular hemodialysis catheter is again seen with distal tip terminating within the region of the mid SVC. No pneumothorax. Small left pleural effusion has increased in size from comparison. There is a persistent trace right pleural effusion. Mild pulmonary edema pattern appears unchanged. Mildly progressive left basilar opacities are noted. Bones appear intact. IMPRESSION: 1. Cardiomegaly with stable appearing mild pulmonary edema. 2. Small left pleural effusion has increased in size from 01/26/2017. 3. Left basilar alveolar opacities suggest atelectasis. The above report was generated using voice recognition software. It may contain grammatical, syntax or spelling errors. Electronically signed by: Rakan Grimes M.D. 03/14/2017 10:24 AM Dictated Date/Time: 03/14/2017 10:21 AM
[2017-03-14 10:38] LABS: MEAN CELL VOLUME 97.5 fL (80-100); MEAN CORPUSCULAR HEMOGLOBIN 30.6 pg (25-34); MEAN CORPUSCULAR HGB CONC 31.4 g/dl (32-36); MEAN PLATELET VOLUME 10.2 fL (7.4-10.4); PLATELET COUNT 173 K/uL (130-400); RED BLOOD COUNT 3.59 M/uL (4.2-5.4); WHITE BLOOD COUNT 24.44 K/uL (4.8-10.8)
[2017-03-14] MEDS ORDERED: NTRGSL/4 UT (10:39)
[2017-03-14] MEDS ORDERED: IPRASOL4 INH (10:39)
[2017-03-14] MEDS ORDERED: POLY335019 PO (10:39)
[2017-03-14] MEDS ORDERED: WARF4TAB43 PO (10:39)
[2017-03-14 10:48] LABS: INR 2.5 (0.9-1.1); PARTIAL THROMBOPLASTIN RATIO 1.3; PROTHROMBIN TIME (PATIENT) 27.8 SECONDS (9.0-12.0)
[2017-03-14] MEDS ORDERED: PIPERACILLIN/TAZOBACTAM 4.5 GM/100ML D5W IV STA (10:58)
[2017-03-14] MEDS ORDERED: SODIUM CHLORIDE 0.9% 1000ML 250 ML IV STA (11:00)
[2017-03-14 11:05] LABS: BASO ABS # 0.01 K/uL (0-0.2); IG% 0.4 %; LYMPH % 1.5 %; LYMPH ABS # 0.36 K/uL (1.2-3.4); MONO % 7.9 %; NEUT % 90.2 %
[2017-03-14 11:06] LABS: COMPLETE YES
[2017-03-14 11:08] LABS: BUN/CREATININE RATIO 9.7 (10-20); CKMB/CK RATIO 3.3 (0-3.0); CREATININE 4.6 mg/dl (0.60-1.20); POTASSIUM 3.9 mmol/L (3.5-5.1)
[2017-03-14] MEDS ORDERED: ONDANSETRON INJ 2 MG/ML 2 ML VIAL IV PRN (11:45)
[2017-03-14] MEDS ORDERED: MAGNESIUM HYDROXIDE SUSP 30 ML UDC PO PRN (11:45)
[2017-03-14] MEDS ORDERED: ZOLPIDEM TARTRATE 5 MG TAB PO PRN (11:45)
[2017-03-14] MEDS ORDERED: ALBUT/IPRATROP 3MG/0.5MG NEB 3 ML VIAL INH PRN (11:45)
[2017-03-14] MEDS ORDERED: NITROGLYCERIN 0.4 MG SL PER TAB CHARGE SL PRN (11:45)
[2017-03-14] MEDS ORDERED: ALUMINUM/MAGNESIUM/SIMETH (MAALOX MAX) 30 ML UDC PO PRN (11:45)
[2017-03-14] MEDS ORDERED: FENTANYL CITRATE INJ 50 MCG/1 ML 2 ML VIAL IV ONE (12:00)
--- NOTE | 2017-03-14 12:04 | History and Physical ---
History & Physical Date & Time of Service: Mar 14, 2017 at 11:58 Chief Complaint: Chest Pain Primary Care Physician: Cooper Hart M.D. History of Present Illness Source: patient, family 87 y/o F ESRD, CAD, DVT - on Coumadin, DM2, PAF. Pt presents with moderate to severe central CP, radiating to her L back and accompanied by SOB and diaphoresis. Onset of symptoms occurred at 5am waking her from sleep. She has a chronic mild trop elevation. She was admitted with similar symptoms 01/17 and declined a cardiac cath at that time. Her BP is low at the time of admission despite receiving 500 CC of NS in the ER. Initial labs are notable for leukocytosis. She denies a productive cough, recorded fevers, nausea/ vomiting or diarrhea. She had a few episodes of sweats the prior evening. She missed her dialysis apt today by attending the hospital. Past Medical/Surgical History Medical Problems: 1) ESRD - dialysis M,W,F 2) DVT 3) DM2 4) CAD CABG x4 in 1996. Cardiac catheterization in 2006 revealed occluded saphenous vein grafts to the diagonal and ramus intermedius. Other grafts were patent. RCA stent placed. Procedure was complicated by a large right groin hematoma which required vascular surgery urgently. Has since declined additional catheterizations. 5) Paroxysmal AF and NSVT 6) HTN 7) HPL Family History Asthma Cancer SISTER (Breast cancer) Chronic kidney disease MOTHER Diabetes mellitus FATHER Heart disease FATHER Hypertension FATHER MOTHER Kidney disease Kidney stones Stroke Social History Smoking Status: Never Smoker Drug Use: none Marital Status: Housing status: lives with family Occupational Status: retired Immunizations History of Influenza Vaccine: Yes Influenza Vaccine Date: Apr 17, 2012 History of Tetanus Vaccine?: Yes Tetanus Immunization Date: Dec 16, 2006 History of Pneumococcal: Yes Pneumococcal Date: Dec 17, 2007 History of Hepatitis B Vaccine: No Multi-Drug Resistant Organisms History of MDRO: No Allergies Coded Allergies: No Known Allergies (Unverified , 03/14/17) Home Medications Scheduled Allopurinol (Zyloprim), 50 MG PO QAM Amiodarone Hcl (Cordarone), 200 MG PO QAM Clopidogrel (Plavix), 75 MG PO HS Multiple Vitamin (Renal Multivitamin Formul), 2 TABS PO QAM Nitroglycerin (Nitrostat), 0.4 MG UT PRN Nutritional Supplements (Colon Formula), 1 CAP PO QAM Pantoprazole (Protonix), 40 MG PO QAM Polyethylene Glycol 3350 (Miralax), 17 GM PO AMPM Rosuvastatin Calcium (Crestor), 10 MG PO HS Sennosides-Docusate Sodium (Stool Softener), 1 TAB PO BID Sevelamer Carbonate (Renvela), 800 MG PO WM Warfarin Sodium (Warfarin Sodium), 1 TAB PO QPM Scheduled PRN Ipratropium-Albuterol (Duoneb), 1 TREATMENT INH Q4H PRN for SOB/Wheezing Review of Systems Constitutional: + sweats, No fever, No chills Eyes: No worsening of vision, No eye pain ENT: No hearing loss, No nasal symptoms Respiratory: + shortness of breath, + dyspnea on exertion, + dyspnea at rest, No cough, No sputum, No wheezing Cardiovascular: + chest pain, No orthopnea, No PND Abdomen: No pain, No nausea, No vomiting Musculoskeletal: No joint pain Genitourinary - Female: No dysuria, No urinary frequency, No urinary urgency Neurologic: + weakness, No memory loss, No paralysis Psychiatric: No depression symptoms Endocrine: + fatigue Hematologic / Lymphatic: No abnormal bleeding/bruising Integumentary: No rash Allergic / Immunologic: No environmental allergies Physical Exam Vital Signs Date Time Temp Pulse Resp B/P (MAP) Pulse Ox O2 Delivery O2 Flow Rate FiO2 03/14/17 10:10 94 Nasal Cannula 2.0 03/14/17 10:01 82 03/14/17 10:01 94 Nasal Cannula 2.0 03/14/17 10:01 36.8 85 13 91/48 94 Nasal Cannula 2.0 General Appearance: + pertinent finding (Lethargic elderly female - tachypnaic - ill-appearing no overt distress) Eyes: normal inspection, EOMI ENT: normal ENT inspection Neck: supple, + JVD Respiratory/Chest: chest non-tender, + decreased breath sounds, + pertinent finding (Mild distress) Cardiovascular: regular rate, rhythm, + JVD, + systolic murmur Abdomen/GI: normal bowel sounds, non tender, soft Back: normal inspection, no CVA tenderness Extremities/Musculoskelatal: normal inspection, no calf tenderness, + pedal edema (mild) 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, no motor/sensory deficits, alert, normal reflexes, oriented x 3 Skin: normal color, warm/dry, no rash Diagnostics Laboratory Results Results Past 24 Hours Test 03/14/17 10:10 03/14/17 11:40 Range/Units White Blood Count 24.44 4.8-10.8 K/uL Red Blood Count 3.59 4.2-5.4 M/uL Hemoglobin 11.0 12.0-16.0 g/dL Hematocrit 35.0 37-47 % Mean Corpuscular Volume 97.5 80-100 fL Mean Corpuscular Hemoglobin 30.6 25-34 pg Mean Corpuscular Hemoglobin Concent 31.4 32-36 g/dl Platelet Count 173 130-400 K/uL Mean Platelet Volume 10.2 7.4-10.4 fL Neutrophils (%) (Auto) 90.2 % Lymphocytes (%) (Auto) 1.5 % Monocytes (%) (Auto) 7.9 % Eosinophils (%) (Auto) 0.0 % Basophils (%) (Auto) 0.0 % Neutrophils # (Auto) 22.05 1.4-6.5 K/uL Lymphocytes # (Auto) 0.36 1.2-3.4 K/uL Monocytes # (Auto) 1.92 0.11-0.59 K/uL Eosinophils # (Auto) 0.01 0-0.5 K/uL Basophils # (Auto) 0.01 0-0.2 K/uL RDW Standard Deviation 60.1 36.4-46.3 fL RDW Coefficient of Variation 17.0 11.5-14.5 % Immature Granulocyte % (Auto) 0.4 % Immature Granulocyte # (Auto) 0.09 0.00-0.02 K/uL Prothrombin Time 27.8 9.0-12.0 SECONDS Prothromb Time International Ratio 2.5 0.9-1.1 Activated Partial Thromboplast Time 34.1 21.0-31.0 SECONDS Partial Thromboplastin Ratio 1.3 Sodium Level 139 136-145 mmol/L Potassium Level 3.9 3.5-5.1 mmol/L Chloride Level 98 98-107 mmol/L Carbon Dioxide Level 29 21-32 mmol/L Anion Gap 12.0 3-11 mmol/L Blood Urea Nitrogen 45 7-18 mg/dl Creatinine 4.60 0.60-1.20 mg/dl Est Creatinine Clear Calc Drug Dose 9.2 ml/min Estimated GFR () 9.3 Estimated GFR (Non- 8.1 BUN/Creatinine Ratio 9.7 10-20 Random Glucose 112 70-99 mg/dl Calcium Level 9.0 8.5-10.1 mg/dl Total Bilirubin 0.8 0.2-1 mg/dl Direct Bilirubin 0.2 0-0.2 mg/dl Aspartate Amino Transf (AST/SGOT) 14 15-37 U/L Alanine Aminotransferase (ALT/SGPT) 15 12-78 U/L Alkaline Phosphatase 67 45-117 U/L Total Creatine Kinase 18 26-192 U/L Creatine Kinase MB 0.6 0.5-3.6 ng/ml Creatine Kinase MB Ratio 3.3 0-3.0 Total Protein 7.1 6.4-8.2 gm/dl Albumin 2.8 3.4-5.0 gm/dl Lipase 53 73-393 U/L Bedside Lactic Acid Venous 2.75 0.90-1.70 mmol/L Microbiology Results 03/14/17 Blood Culture, Received Pending 03/14/17 Blood Culture, Received Pending Diagnostic Radiology IMPRESSION: 1. Cardiomegaly with stable appearing mild pulmonary edema. 2. Small left pleural effusion has increased in size from 01/26/2017. 3. Left basilar alveolar opacities suggest atelectasis. EKG Sinus - L axis - there are lat st depressions, however, these are present on previous EKGs Impression Assessment and Plan 87 y/o F ESRD, CAD, DVT - on Coumadin, DM2, PAF. Pt presents with moderate to severe central CP, radiating to her L back and accompanied by SOB and diaphoresis. Onset of symptoms occurred at 5am waking her from sleep. She has a chronic mild trop elevation. She was admitted with similar symptoms 01/17 and declined a cardiac cath at that time. Her BP is low at the time of admission despite receiving 500 CC of NS in the ER. Initial labs are notable for leukocytosis. She denies a productive cough, recorded fevers, nausea/ vomiting or diarrhea. She had a few episodes of sweats the prior evening. She missed her dialysis apt today by attending the hospital. 1) CAD, Persistent CP - SOB, radiation to back - she has had a previous NM and states she did not have CP symptoms at the time. Trop is approximately at baseline and EKG does not show any overt changes. We have requested a CT dissection study and will transfer the pt to the ICU owing to her hypotension. We will obtain serial enzymes. She will be provided with narcotics only for CP as her BP would not currently tolerate NTG. An echo and cardiology evaluation are pending. She is fully anticoagulated with Coumadin and will remain on Plavix and a Statin 2) Leukocytosis - she has had sweats but no confirmed fevers. As she is hypotensive and a dialysis pt, we have provided her with a dose of Vanc and Zosyn pending culture results. There is no obvious source of infection. ID has been consulted. 3) ESRD - Nephrology consulted - she may not be able to tolerate dialysis at present. Cont Sevelamer w/meals. 4) PAF - rhythm is sinus on admission - cont Amio, Coumadin. 5) GERD - history of GI bleed - cont PPi - no evidence of acute bleed presently Full code - confirmed with pt and family - Coumadin prophylaxis Total time for this admit including review of labs, meds, EKG - discussion with pt , family , ER attending - inc critical care time 50 min Level of Care Critical Care Advanced Directives Existing Living Will: Yes Existing Power of Junior Systems Engineer: Yes Resuscitation Status FULL RESUSCITATION VTE Prophylaxis VTE Risk Assessment Done? Y/N: Yes Risk Level: High Given or contraindicated: Warfarin (Coumadin)
[2017-03-14] MEDS ORDERED: LORAZEPAM 2 MG/ML 1 ML VIAL IV PRN (12:15)
[2017-03-14] MEDS ORDERED: SODIUM CHLORIDE 0.9% 250ML 250 ML IV SCH (12:30)
[2017-03-14] MEDS ORDERED: OPTIRAY 320 IV PRN (12:30)
[2017-03-14] MEDS ORDERED: VANCOMYCIN CONSULT ACTIVE PRN (13:15)
[2017-03-14] MEDS ORDERED: VANCOMYCIN INJ 1,000 MG in SODIUM CHLORIDE 0.9% 250ML 250 ML IV SCH (14:00)
--- NOTE | 2017-03-14 14:38 | Critical Care Consultation ---
Critical Care Consultation Date of Consultation: Mar 14, 2017. Attending Physician: Maikol Kim M.D. Reason for Consultation: Sepsis/Hypotension/Chest Pain History of Present Illness She is admitted with chest pain and leukocytosis. Underlying ESRD-dialysis, ASCAD-CABG/Stenting, DM, Afib-coumadin, and DVT. She reports the pain is radiating from chest to left scapular area. Some diaphoresis and nausea/ vomiting noted. In the ER was given Zosyn and Vanco ordered. Some transient hypotension responded to a bolus of fluids. She is scheduled for dialysis today. All the appropriate cultures have been obtained and images ordered. I spoke with the hospitalist and her grinder operator external tool today. ID has been consulted as well. Family History Asthma Cancer SISTER (Breast cancer) Chronic kidney disease MOTHER Diabetes mellitus FATHER Heart disease FATHER Hypertension FATHER MOTHER Kidney disease Kidney stones Stroke Social History Smoking Status: Never Smoker Drug Use: none Marital Status: Housing Status: lives alone Occupation Status: retired Allergies Coded Allergies: No Known Allergies (Unverified , 03/14/17) Home Medications Scheduled Allopurinol (Zyloprim), 50 MG PO QAM Amiodarone Hcl (Cordarone), 200 MG PO QAM Clopidogrel (Plavix), 75 MG PO HS Multiple Vitamin (Renal Multivitamin Formul), 2 TABS PO QAM Nitroglycerin (Nitrostat), 0.4 MG UT PRN Nutritional Supplements (Colon Formula), 1 CAP PO QAM Pantoprazole (Protonix), 40 MG PO QAM Polyethylene Glycol 3350 (Miralax), 17 GM PO AMPM Rosuvastatin Calcium (Crestor), 10 MG PO HS Sennosides-Docusate Sodium (Stool Softener), 1 TAB PO BID Sevelamer Carbonate (Renvela), 800 MG PO WM Warfarin Sodium (Warfarin Sodium), 1 TAB PO QPM Scheduled PRN Ipratropium-Albuterol (Duoneb), 1 TREATMENT INH Q4H PRN for SOB/Wheezing Current Inpatient Medications Current Inpatient Medications Medications (Trade) Dose Ordered Sig/Janeth Route Start Time Stop Time Status Last Admin Dose Admin Vancomycin HCl 1000 mg/Sodium Chloride 270 ml @ 125 mls/hr TODAY@1400 IV 03/14/17 14:00 03/14/17 16:10 Allopurinol (Zyloprim Tab) 50 mg QAM PO 03/15/17 09:00 04/14/17 08:59 Amiodarone HCl (Cordarone Tab) 200 mg QAM PO 03/15/17 09:00 04/14/17 08:59 Clopidogrel Bisulfate (plAVix TAB) 75 mg HS PO 03/14/17 21:00 04/13/17 20:59 Albuterol/ Ipratropium (Duoneb) 3 ml Q6R PRN INH 03/14/17 11:45 04/13/17 11:44 Multivitamins (Multivitamin Tab) 2 tab QAM PO 03/15/17 09:00 04/14/17 08:59 Pantoprazole Sodium (Protonix Tab) 40 mg QAM PO 03/15/17 09:00 04/14/17 08:59 Rosuvastatin Calcium (Crestor Tab) 10 mg HS PO 03/14/17 21:00 04/13/17 20:59 Senna/Docusate Sodium (Senokot S Tab) 1 tab BID PO 03/14/17 21:00 04/13/17 20:59 Warfarin Sodium (Coumadin Tab) 2 mg DAILY@1600 PO 03/14/17 16:00 04/13/17 15:59 Sevelamer HCl (Renagel Tab) 800 mg TIDM PO 03/14/17 16:30 04/13/17 16:29 Acetaminophen (Tylenol Tab) 650 mg Q4H PRN PO 03/14/17 11:45 04/13/17 11:44 Al Hydrox/Mg Hydrox/Simethicone (Maalox Max Susp) 15 ml Q4H PRN PO 03/14/17 11:45 04/13/17 11:44 Magnesium Hydroxide (Milk Of Magnesia Susp) 30 ml Q12H PRN PO 03/14/17 11:45 04/13/17 11:44 Zolpidem Tartrate (Ambien Tab) 5 mg HSZ PRN PO 03/14/17 11:45 04/13/17 11:44 Ondansetron HCl (Zofran Inj) 4 mg Q6H PRN IV 03/14/17 11:45 04/13/17 11:44 Nitroglycerin (Nitrostat Tab) 0.4 mg UD PRN SL 03/14/17 11:45 04/13/17 11:44 Morphine Sulfate (MoRPHine SULFATE INJ) 2 mg Q30M PRN IV 03/14/17 11:45 03/28/17 11:44 Polyethylene (Miralax Powder Packet) 17 gm DAILY PRN PO 03/14/17 11:45 04/13/17 11:44 Lorazepam (Ativan Inj) 0.5 mg Q4H PRN IV 03/14/17 12:15 04/13/17 12:14 Ioversol (Optiray 320) 100 ml UD PRN IV 03/14/17 12:30 03/18/17 12:29 Vancomycin HCl (Consult) 1 ea UD PRN N/A 03/14/17 13:15 04/13/17 13:14 Review of Systems as noted in the admit note. Chest pain as described. No new focal neuro changes but does not profound weakness and general decline over the past 6-12 months. No sputum. Some dyspnea. No new target musculoskeletal issues. Remaining ROS was negative. Physical Exam Date Time Temp Pulse Resp B/P (MAP) Pulse Ox O2 Delivery O2 Flow Rate FiO2 03/14/17 13:21 82 20 76/40 93 03/14/17 11:44 82 20 72/47 95 Nasal Cannula 2.0 03/14/17 11:26 36.8 84 13 91/48 95 Room Air 03/14/17 10:10 94 Nasal Cannula 2.0 03/14/17 10:01 82 03/14/17 10:01 94 Nasal Cannula 2.0 03/14/17 10:01 36.8 85 13 91/48 94 Nasal Cannula 2.0 Gen--very frail and elderly woman HEENT--no scleral icterus. No focal neuro changes Pulmonary- ? rub in the left chest and some basilar reduction in exchange Cardio--rate is acceptable. No JVD, perfusion is adequate GI--OBR and monitor --negative Musculoskeletal--no new edema--the left always bigger. Neuro--no focal new findings Derm--no acute changes Psych---calm and appropriate Laboratory Results Last 24 Hours Test 03/14/17 10:10 03/14/17 10:20 03/14/17 11:40 White Blood Count 24.44 K/uL Red Blood Count 3.59 M/uL Hemoglobin 11.0 g/dL Hematocrit 35.0 % Mean Corpuscular Volume 97.5 fL Mean Corpuscular Hemoglobin 30.6 pg Mean Corpuscular Hemoglobin Concent 31.4 g/dl Platelet Count 173 K/uL Mean Platelet Volume 10.2 fL Neutrophils (%) (Auto) 90.2 % Lymphocytes (%) (Auto) 1.5 % Monocytes (%) (Auto) 7.9 % Eosinophils (%) (Auto) 0.0 % Basophils (%) (Auto) 0.0 % Neutrophils # (Auto) 22.05 K/uL Lymphocytes # (Auto) 0.36 K/uL Monocytes # (Auto) 1.92 K/uL Eosinophils # (Auto) 0.01 K/uL Basophils # (Auto) 0.01 K/uL RDW Standard Deviation 60.1 fL RDW Coefficient of Variation 17.0 % Immature Granulocyte % (Auto) 0.4 % Immature Granulocyte # (Auto) 0.09 K/uL Prothrombin Time 27.8 SECONDS Prothromb Time International Ratio 2.5 Activated Partial Thromboplast Time 34.1 SECONDS Partial Thromboplastin Ratio 1.3 Sodium Level 139 mmol/L Potassium Level 3.9 mmol/L Chloride Level 98 mmol/L Carbon Dioxide Level 29 mmol/L Anion Gap 12.0 mmol/L Blood Urea Nitrogen 45 mg/dl Creatinine 4.60 mg/dl Est Creatinine Clear Calc Drug Dose 9.2 ml/min Estimated GFR () 9.3 Estimated GFR (Non- 8.1 BUN/Creatinine Ratio 9.7 Random Glucose 112 mg/dl Calcium Level 9.0 mg/dl Total Bilirubin 0.8 mg/dl Direct Bilirubin 0.2 mg/dl Aspartate Amino Transf (AST/SGOT) 14 U/L Alanine Aminotransferase (ALT/SGPT) 15 U/L Alkaline Phosphatase 67 U/L Total Creatine Kinase 18 U/L Creatine Kinase MB 0.6 ng/ml Creatine Kinase MB Ratio 3.3 Total Protein 7.1 gm/dl Albumin 2.8 gm/dl Lipase 53 U/L Bedside Troponin I 0.150 ng/ml Bedside Lactic Acid Venous 2.75 mmol/L Assessment & Plan Chest Pain/Hypotension/Leukocytosis/--in the setting of ESRD/Dialysis/ASCAD-Afib /CABG 1. Cardio--I spoke with cardiology--current Rx in place. Therapeutic with INR. Will track 2. Pulmonary--Agree with antibiotics. Probably early pneumonia. General supportive care 3. Renal--nephrology consulted 4. GI--general supportive 5. ID--sepsis--antibiotic in place--will track 6. Code Status-- I spoke with her as well as her long time grinder operator external tool. After discussion with patient explaining outcomes information a code status of DNR/DNI made--this will be modified
--- NOTE | 2017-03-14 14:47 | Medical Consult ---
Consultation Date of Consultation: Mar 14, 2017. Attending Physician: Maikol Kim M.D. History of Present Illness pt admitted from home after waking with left sided cp, has h/o dvt. cad, on hd. states cp began today, under left shoulder. was hotn in ER, started on fluids with improvement. Denies fevers, intermittent cough, unchanged, non productive. no f/c at home. ? LLL pna. started on vanco and zosyn. also c/o tenderness and redness right inner thigh, no bleeding or drainage. does not make urine. no diarrhea. not eating well at home. no n/v/d/abd pain. denies sick contacts. was found to have elevated lactic acid and increased wbc to 24. blood cultures obtained, pending. tolerating abx. trop elevated but creat 4.6. Now dnr. family at bedside. no complaints on my exam. All remaining ros reviewed and are negative. Past Medical/Surgical History Medical Problems: (1) CHF (congestive heart failure) Status: Acute (2) CHF (congestive heart failure) Status: Acute (3) Chronic kidney insufficiency Status: Acute (4) Chronic renal failure Status: Acute (5) Congestive heart failure Status: Acute (6) E16.2 Status: Acute (7) Elevated INR Status: Acute (8) Elevated troponin Status: Acute (9) GI bleed Status: Acute (10) Hypotension Status: Acute (11) Left leg DVT Status: Acute (12) Pancytopenia Status: Acute (13) Pneumonia Status: Acute (14) Pulmonary edema Status: Acute (15) Respiratory distress Status: Acute (16) ST segment changes on electrocardiogram Status: Acute (17) Substernal precordial chest pain Status: Acute (18) Substernal precordial chest pain Status: Acute (19) Symptomatic anemia Status: Acute (20) Weakness Status: Acute Family History Asthma Cancer SISTER (Breast cancer) Chronic kidney disease MOTHER Diabetes mellitus FATHER Heart disease FATHER Hypertension FATHER MOTHER Kidney disease Kidney stones Stroke Social History Smoking Status: Never Smoker Drug Use: none Marital Status: Housing Status: lives alone Occupation Status: retired Allergies Coded Allergies: No Known Allergies (Unverified , 03/14/17) Current Inpatient Medications Current Inpatient Medications Medications (Trade) Dose Ordered Sig/Janeth Route Start Time Stop Time Status Last Admin Dose Admin Vancomycin HCl 1000 mg/Sodium Chloride 270 ml @ 125 mls/hr TODAY@1400 IV 03/14/17 14:00 03/14/17 16:10 03/14/17 14:14 125 MLS/HR Allopurinol (Zyloprim Tab) 50 mg QAM PO 03/15/17 09:00 04/14/17 08:59 Amiodarone HCl (Cordarone Tab) 200 mg QAM PO 03/15/17 09:00 04/14/17 08:59 Clopidogrel Bisulfate (plAVix TAB) 75 mg HS PO 03/14/17 21:00 04/13/17 20:59 Albuterol/ Ipratropium (Duoneb) 3 ml Q6R PRN INH 03/14/17 11:45 04/13/17 11:44 Multivitamins (Multivitamin Tab) 2 tab QAM PO 03/15/17 09:00 04/14/17 08:59 Pantoprazole Sodium (Protonix Tab) 40 mg QAM PO 03/15/17 09:00 04/14/17 08:59 Rosuvastatin Calcium (Crestor Tab) 10 mg HS PO 03/14/17 21:00 04/13/17 20:59 Senna/Docusate Sodium (Senokot S Tab) 1 tab BID PO 03/14/17 21:00 04/13/17 20:59 Warfarin Sodium (Coumadin Tab) 2 mg DAILY@1600 PO 03/14/17 16:00 04/13/17 15:59 Sevelamer HCl (Renagel Tab) 800 mg TIDM PO 03/14/17 16:30 04/13/17 16:29 Acetaminophen (Tylenol Tab) 650 mg Q4H PRN PO 03/14/17 11:45 04/13/17 11:44 Al Hydrox/Mg Hydrox/Simethicone (Maalox Max Susp) 15 ml Q4H PRN PO 03/14/17 11:45 04/13/17 11:44 Magnesium Hydroxide (Milk Of Magnesia Susp) 30 ml Q12H PRN PO 03/14/17 11:45 04/13/17 11:44 Zolpidem Tartrate (Ambien Tab) 5 mg HSZ PRN PO 03/14/17 11:45 04/13/17 11:44 Ondansetron HCl (Zofran Inj) 4 mg Q6H PRN IV 03/14/17 11:45 04/13/17 11:44 Nitroglycerin (Nitrostat Tab) 0.4 mg UD PRN SL 03/14/17 11:45 04/13/17 11:44 Morphine Sulfate (MoRPHine SULFATE INJ) 2 mg Q30M PRN IV 03/14/17 11:45 03/28/17 11:44 Polyethylene (Miralax Powder Packet) 17 gm DAILY PRN PO 03/14/17 11:45 04/13/17 11:44 Lorazepam (Ativan Inj) 0.5 mg Q4H PRN IV 03/14/17 12:15 04/13/17 12:14 Ioversol (Optiray 320) 100 ml UD PRN IV 03/14/17 12:30 03/18/17 12:29 Vancomycin HCl (Consult) 1 ea UD PRN N/A 03/14/17 13:15 04/13/17 13:14 Physical Exam Date Time Temp Pulse Resp B/P (MAP) Pulse Ox O2 Delivery O2 Flow Rate FiO2 03/14/17 13:21 82 20 76/40 93 03/14/17 11:44 82 20 72/47 95 Nasal Cannula 2.0 03/14/17 11:26 36.8 84 13 91/48 95 Room Air 03/14/17 10:10 94 Nasal Cannula 2.0 03/14/17 10:01 82 03/14/17 10:01 94 Nasal Cannula 2.0 03/14/17 10:01 36.8 85 13 91/48 94 Nasal Cannula 2.0 General Appearance: WD/WN, no apparent distress Head: normocephalic, atraumatic Eyes: normal inspection, EOMI ENT: + pertinent finding (mmd) Neck: supple Respiratory/Chest: lungs clear, + decreased breath sounds Cardiovascular: regular rate, rhythm, no edema Abdomen/GI: non tender, soft Extremities/Musculoskelatal: no calf tenderness, no pedal edema, + pertinent finding (right inner thigh with erythema and tenderness, no warmth, no open lesions. right ankle with superficial abrasion, chronic, non tender, no drainage , tenderness, warmth) Neurologic/Psych: alert, oriented x 3 Skin: normal color Laboratory Results Last 24 Hours Test 03/14/17 10:10 03/14/17 10:20 03/14/17 11:40 White Blood Count 24.44 K/uL Red Blood Count 3.59 M/uL Hemoglobin 11.0 g/dL Hematocrit 35.0 % Mean Corpuscular Volume 97.5 fL Mean Corpuscular Hemoglobin 30.6 pg Mean Corpuscular Hemoglobin Concent 31.4 g/dl Platelet Count 173 K/uL Mean Platelet Volume 10.2 fL Neutrophils (%) (Auto) 90.2 % Lymphocytes (%) (Auto) 1.5 % Monocytes (%) (Auto) 7.9 % Eosinophils (%) (Auto) 0.0 % Basophils (%) (Auto) 0.0 % Neutrophils # (Auto) 22.05 K/uL Lymphocytes # (Auto) 0.36 K/uL Monocytes # (Auto) 1.92 K/uL Eosinophils # (Auto) 0.01 K/uL Basophils # (Auto) 0.01 K/uL RDW Standard Deviation 60.1 fL RDW Coefficient of Variation 17.0 % Immature Granulocyte % (Auto) 0.4 % Immature Granulocyte # (Auto) 0.09 K/uL Prothrombin Time 27.8 SECONDS Prothromb Time International Ratio 2.5 Activated Partial Thromboplast Time 34.1 SECONDS Partial Thromboplastin Ratio 1.3 Sodium Level 139 mmol/L Potassium Level 3.9 mmol/L Chloride Level 98 mmol/L Carbon Dioxide Level 29 mmol/L Anion Gap 12.0 mmol/L Blood Urea Nitrogen 45 mg/dl Creatinine 4.60 mg/dl Est Creatinine Clear Calc Drug Dose 9.2 ml/min Estimated GFR () 9.3 Estimated GFR (Non- 8.1 BUN/Creatinine Ratio 9.7 Random Glucose 112 mg/dl Calcium Level 9.0 mg/dl Total Bilirubin 0.8 mg/dl Direct Bilirubin 0.2 mg/dl Aspartate Amino Transf (AST/SGOT) 14 U/L Alanine Aminotransferase (ALT/SGPT) 15 U/L Alkaline Phosphatase 67 U/L Total Creatine Kinase 18 U/L Creatine Kinase MB 0.6 ng/ml Creatine Kinase MB Ratio 3.3 Total Protein 7.1 gm/dl Albumin 2.8 gm/dl Lipase 53 U/L Bedside Troponin I 0.150 ng/ml Bedside Lactic Acid Venous 2.75 mmol/L Assessment & Plan (1) Leukocytosis Assessment & Plan: continue abx for now, follow cultures, ? pna, ? developing cellulities rle, ? non infectios (cardic, pe). consider ct chest. will follow , thank you
--- NOTE | 2017-03-14 15:31 | Cardiology Follow-Up ---
Cardiology Follow-Up Date of Service Mar 14, 2017. Cardiology Follow-Up Subjective The patient is resting in bed complaining of a vague left-sided chest and flank pain. Her dyspnea has improved. The patient explains that she refuses intubation and chest compressions. Objective Blood pressure is 90/50 with a regular pulse of 82. Respiratory rate is 20. The patient is afebrile 36.8 degrees Celsius. Saturation is 93 percent on room air. Neck is supple with mildly delayed and prolonged carotid upstrokes. A transmitted murmur is noted bilaterally. Jugular venous pressure is 8 centimeters of water at 90 degrees. Cardiovascular exam reveals a regular rhythm with a 2/6 crescendo decrescendo systolic murmur heard loudest at the base. S2 is audible at the apex. No diastolic murmurs. Lungs note bibasilar rales. No rhonchi or wheezes. Abdomen is obese without bruits. Extremities reveal intact radial artery pulses bilaterally. Fistula as noted in the right upper extremity. Trace pretibial edema is noted. Data CBC notes a hemoglobin of 11.0, hematocrit 35.0, white count 24.4, platelet count [id number]. Electrolytes notice sodium 139, potassium 3.9, chloride 98, bicarb 29, BUN 45, creatinine 4.6, glucose 112. Point of care troponin is 0.015. INR is therapeutic at 2.5. EKG notes normal sinus rhythm with first- degree AV block, a left axis deviation, and a nonspecific interventricular conduction delay. Impression plan 1. Chest pain syndrome-with hypoxia, acidosis and tachypneic. Could represent an early pneumonia. Has been started on vancomycin and Zosyn. Discussed with Dr. Barker. 2. Coronary artery disease-status post 4 vessel CABG in 1996. A cardiac catheterization 2006 noted an occluded SVG to a diagonal, and an occluded SVG to RCA. Intervention performed on the RCA at that time. Patient refuses further cardiac catheterizations in will therefore follow medical management. 3. Moderate aortic stenosis-on echocardiogram January 2017 4. Moderate mitral regurgitation 5. Paroxysmal atrial fibrillation-remains in sinus rhythm on amiodarone. INR therapeutic. 6. Hypertension 7. History of diastolic congestive heart failure 8. Hypercholesterolemia 9. End-stage renal disease-hemodialysis per Dr. Quezada 10. Diabetes mellitus
[2017-03-14] MEDS: SEVELAMER HYDROCH 800 MG TAB PO SCH (16:33)
--- NOTE | 2017-03-14 16:37 | DIAGNOSTIC IMAGING REPORT ---
CHEST COMBO ANGIO DISSECTION CLINICAL HISTORY: 87 years-old Female presenting with clinical concern for dissection. TECHNIQUE: Multidetector CT angiography of the chest was performed after the administration of intravenous contrast. COMPARISON: 01/11/2017. CT DOSE: The estimated cumulative dose is 661.24 mGy.cm. FINDINGS: Highway Engineer topogram: Cardiomegaly with multiple medical devices noted as well as overlying leads. Medical devices: Right internal jugular central venous catheter terminates in the superior vena cava. A small amount of thrombus is suspected in the mid to inferior SVC (series 5 image 26). Median sternotomy wires noted. On soft tissue windows, thyroid and thoracic inlet normal. No axillary, supraclavicular, or mediastinal lymphadenopathy. Atherosclerosis of the aortic arch and origins of the major branch vessels including the left subclavian artery to the greatest degree. No evidence of dissection or aneurysm. Multichamber enlargement of the heart. Main pulmonary artery enlarged measuring 3.6 cm in transverse dimension. No filling defect in the pulmonary arterial tree to suggest embolus. Aortic valve, mitral annular, and coronary artery calcification extensively. The intraventricular blood pool is slightly less dense than the adjacent myocardium suggesting anemia. Small bilateral pleural effusions, left greater than right. No pericardial effusion. Upper abdomen demonstrates hepatic arterial atherosclerosis and periportal edema. On lung windows, dependent consolidation in the lung bases to a greater degree on the left. Mild septal thickening at the lung bases. Minimal mosaic attenuation, which could suggest small airways disease. Airways patent. On bone windows, multilevel degenerative changes of the thoracic spine noted. IMPRESSION: 1. No evidence of aortic dissection or acute aortic injury. 2. Severe atherosclerosis. 3. Small bilateral pleural effusions, left greater than right. 4. Associated dependent consolidation, most likely atelectasis. 5. Cardiomegaly. No alexys pulmonary edema. 6. Enlarged main pulmonary artery, which could suggest ulnar hypertension. Electronically signed by: Ruben Membreno M.D. 03/14/2017 4:35 PM Dictated Date/Time: 03/14/2017 4:25 PM
[2017-03-14] MEDS: WARFARIN SOD 2 MG TAB PO SCH (16:53)
--- NOTE | 2017-03-14 18:12 | Nephrology Consultation ---
Nephrology Consultation Date & Providers Date of Consultation: Mar 14, 2017. Primary Care Provider: Cooper Hart M.D. Referring Provider: Reason for Consultation ESRD - evaluate need for HD History of Present Illness Ms. Rahman is an 87 year old white female who is seen and examined in the ICU at the request of Dr. Kim. Nephrology consultation was requested to assess need for inpatient hemodialysis. Medical records in the hospital EMR were reviewed and are summarized as follows: Ms. Rahman has ESRD due to cardiorenal syndrome w/ recurrent CHF. She has been on HD since 05/19. She currently dialyzes MWF at [facility] (HD Rx: 4 hr 2K 2Ca F-160 EDW 73.8 kg Heparin 2000 bolus hourly). Her PMH is also significant for long-standing AODM , HTN, PVD w/ bilateral carotid arterial disease, ASCVD s/p CABG x 4 1996 and OA. In 1996 patient suffered an episode of angina. Cardiac catheterization revealed RCA stenosis. Patient required angioplasty with stenting. Post procedure she developed a pseudoaneurysm with a large right groin hematoma which required emergency surgical repair. Due to her ASCVD Ms. Rahman has been on chronic ASA and Plavix therapy. She was hospitalized 09/19 with severe LGI bleeding requiring transfusion w/ 4 U PRBC. Her most recent hospitalization was 01/17 when she was admitted w/ LLE DVT. Her hospitalization was complicated by infiltration of her L upper arm AVF. She developed a large hematoma and a R IJ THC was placed in order to allow her AVF hematoma to resolve. This morning the patient was preparing for HD. She developed profound dyspnea and retrosternal chest discomfort radiating to her left scapula. She was brought to the ED by EMS. SBP was 70 mm Hg upon arrival, troponin was mildly elevated and lactic acid was 2.75. 12 lead ECG revealed 1st degree AVB but no ischemic change. WBC # was 22K. Nephrology consultation has been requested to assess patient's need for HD today Past Medical/Surgical History Medical: # ASCVD s/p CABG x 4 1996 # Cardiac cath 2006 complicated by pseudoaneurysm of the right femoral artery requiring emergency surgical repair # AODM # HTN # PVD - carotid stenosis # h/o nephrolithiasis # Cholelithiasis # LGI bleed 09/19 Surgical: # R IJ THC insertion # AVF creation # R femoral artery pseudoaneurysm repair Allergies Coded Allergies: No Known Allergies (Unverified , 03/14/17) Inpatient Medications Current Inpatient Medications Medications (Trade) Dose Ordered Sig/Janeth Route Start Time Stop Time Status Last Admin Dose Admin Allopurinol (Zyloprim Tab) 50 mg QAM PO 03/15/17 09:00 04/14/17 08:59 Amiodarone HCl (Cordarone Tab) 200 mg QAM PO 03/15/17 09:00 04/14/17 08:59 Clopidogrel Bisulfate (plAVix TAB) 75 mg HS PO 03/14/17 21:00 04/13/17 20:59 Albuterol/ Ipratropium (Duoneb) 3 ml Q6R PRN INH 03/14/17 11:45 04/13/17 11:44 Multivitamins (Multivitamin Tab) 2 tab QAM PO 03/15/17 09:00 04/14/17 08:59 Pantoprazole Sodium (Protonix Tab) 40 mg QAM PO 03/15/17 09:00 04/14/17 08:59 Rosuvastatin Calcium (Crestor Tab) 10 mg HS PO 03/14/17 21:00 04/13/17 20:59 Senna/Docusate Sodium (Senokot S Tab) 1 tab BID PO 03/14/17 21:00 04/13/17 20:59 Warfarin Sodium (Coumadin Tab) 2 mg DAILY@1600 PO 03/14/17 16:00 04/13/17 15:59 03/14/17 16:53 2 MG Sevelamer HCl (Renagel Tab) 800 mg TIDM PO 03/14/17 16:30 04/13/17 16:29 03/14/17 16:33 800 MG Acetaminophen (Tylenol Tab) 650 mg Q4H PRN PO 03/14/17 11:45 04/13/17 11:44 Al Hydrox/Mg Hydrox/Simethicone (Maalox Max Susp) 15 ml Q4H PRN PO 03/14/17 11:45 04/13/17 11:44 Magnesium Hydroxide (Milk Of Magnesia Susp) 30 ml Q12H PRN PO 03/14/17 11:45 04/13/17 11:44 Zolpidem Tartrate (Ambien Tab) 5 mg HSZ PRN PO 03/14/17 11:45 04/13/17 11:44 Ondansetron HCl (Zofran Inj) 4 mg Q6H PRN IV 03/14/17 11:45 04/13/17 11:44 Nitroglycerin (Nitrostat Tab) 0.4 mg UD PRN SL 03/14/17 11:45 04/13/17 11:44 Morphine Sulfate (MoRPHine SULFATE INJ) 2 mg Q30M PRN IV 03/14/17 11:45 03/28/17 11:44 Polyethylene (Miralax Powder Packet) 17 gm DAILY PRN PO 03/14/17 11:45 04/13/17 11:44 Lorazepam (Ativan Inj) 0.5 mg Q4H PRN IV 03/14/17 12:15 04/13/17 12:14 Ioversol (Optiray 320) 100 ml UD PRN IV 03/14/17 12:30 03/18/17 12:29 Family History Asthma Cancer SISTER (Breast cancer) Chronic kidney disease MOTHER Diabetes mellitus FATHER Heart disease FATHER Hypertension FATHER MOTHER Kidney disease Kidney stones Stroke Noncontributory Social History Smoking Status: Never Smoker Drug Use: none Marital Status: Housing Status: lives with family Occupation: retired . Retired. Never a smoker. Review of Systems Constitutional: No fever Respiratory: + dyspnea on exertion, No cough Cardiovascular: No chest pain Abdomen: + nausea, No pain A complete review of systems was performed. Pertinent positives are noted above. All other systems are negative. Physical Exam Date Time Temp Pulse Resp B/P (MAP) Pulse Ox O2 Delivery O2 Flow Rate FiO2 03/14/17 18:01 36.5 03/14/17 17:01 77 22 117/53 (72) 98 03/14/17 16:29 77 24 122/56 (83) 03/14/17 16:00 Nasal Cannula 2.0 03/14/17 16:00 77 25 03/14/17 14:01 80 29 99/50 (75) 92 03/14/17 14:00 79 34 92 03/14/17 13:21 82 20 76/40 93 03/14/17 11:44 82 20 72/47 95 Nasal Cannula 2.0 03/14/17 11:26 36.8 84 13 91/48 95 Room Air 03/14/17 10:10 94 Nasal Cannula 2.0 03/14/17 10:01 82 03/14/17 10:01 94 Nasal Cannula 2.0 03/14/17 10:01 36.8 85 13 91/48 94 Nasal Cannula 2.0 General Appearance: no apparent distress Head: normocephalic, atraumatic Eyes: PERRL, EOMI Neck: no adenopathy, + pertinent finding (R IJ THC with clean dry dressing in place) Respiratory/Chest: lungs clear Cardiovascular: regular rate, rhythm Abdomen/GI: normal bowel sounds, non tender, soft Extremities/Musculoskelatal: no pedal edema Neurologic/Psych: alert, oriented x 3 Laboratory Results Last 24 Hours Test 03/14/17 10:10 03/14/17 10:20 03/14/17 11:40 03/14/17 16:05 White Blood Count 24.44 K/uL Red Blood Count 3.59 M/uL Hemoglobin 11.0 g/dL Hematocrit 35.0 % Mean Corpuscular Volume 97.5 fL Mean Corpuscular Hemoglobin 30.6 pg Mean Corpuscular Hemoglobin Concent 31.4 g/dl Platelet Count 173 K/uL Mean Platelet Volume 10.2 fL Neutrophils (%) (Auto) 90.2 % Lymphocytes (%) (Auto) 1.5 % Monocytes (%) (Auto) 7.9 % Eosinophils (%) (Auto) 0.0 % Basophils (%) (Auto) 0.0 % Neutrophils # (Auto) 22.05 K/uL Lymphocytes # (Auto) 0.36 K/uL Monocytes # (Auto) 1.92 K/uL Eosinophils # (Auto) 0.01 K/uL Basophils # (Auto) 0.01 K/uL RDW Standard Deviation 60.1 fL RDW Coefficient of Variation 17.0 % Immature Granulocyte % (Auto) 0.4 % Immature Granulocyte # (Auto) 0.09 K/uL Prothrombin Time 27.8 SECONDS Prothromb Time International Ratio 2.5 Activated Partial Thromboplast Time 34.1 SECONDS Partial Thromboplastin Ratio 1.3 Sodium Level 139 mmol/L Potassium Level 3.9 mmol/L Chloride Level 98 mmol/L Carbon Dioxide Level 29 mmol/L Anion Gap 12.0 mmol/L Blood Urea Nitrogen 45 mg/dl Creatinine 4.60 mg/dl Est Creatinine Clear Calc Drug Dose 9.2 ml/min Estimated GFR () 9.3 Estimated GFR (Non- 8.1 BUN/Creatinine Ratio 9.7 Random Glucose 112 mg/dl Calcium Level 9.0 mg/dl Total Bilirubin 0.8 mg/dl Direct Bilirubin 0.2 mg/dl Aspartate Amino Transf (AST/SGOT) 14 U/L Alanine Aminotransferase (ALT/SGPT) 15 U/L Alkaline Phosphatase 67 U/L Total Creatine Kinase 18 U/L Creatine Kinase MB 0.6 ng/ml Creatine Kinase MB Ratio 3.3 Total Protein 7.1 gm/dl Albumin 2.8 gm/dl Lipase 53 U/L Bedside Troponin I 0.150 ng/ml Bedside Lactic Acid Venous 2.75 mmol/L Bedside Glucose 157 mg/dl Impression (1) 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 (2) Leukocytosis (3) Hypotension Patient admitted for evaluation of chest discomfort in the setting of hypotension and leukocytosis. CXR shows small L pleural effusion and atelectasis. Chest CT was negative for dissection. Troponin is mildly elevated due to ESRD. ECG was negative for myocardial ischemia. Blood pressure has improved following IV fluid bolus. Patient is symptomatically improved. Need to remain vigilant for possible infection from pulmonary source or HD catheter. AVF hematoma is not erythematous or fluctuant. Recommendations END STAGE RENAL DISEASE: -- Electrolyte balance is acceptable at this time. Patient is oxygenating well on O2 at 2 L / min NC. Blood pressure is tenuous. Discussed w/ ICU team. No acute indication for HD tonight. Will reassess in am. ID: -- Await blood culture results -- Agree w/ empiric Vancomycin & Zosyn therapy CHEST PAIN: -- CXR films reviewed and chest CT report read. No evidence of dissection -- Monitor serial troponin levels Patient was seen & examined in the ICU. Case discussed w/ ICU team. CXR films , chest CT report and laboratory results reviewed. 45 min critical care time provided to the patient today.
[2017-03-14] MEDS: MoRPHine SULFATE 2 MG/ML CARP IV PRN ×2 (19:21→21:02)
[2017-03-14] MEDS: CLOPIDOGREL BISULFATE 75 MG TAB PO SCH (21:01)
[2017-03-14] MEDS: ROSUVASTATIN CALCIUM 10 MG TAB PO SCH (21:01)
[2017-03-14] MEDS: DOCUSATE SODIUM/SENNA 50/8.6MG TAB PO SCH (21:01)
[2017-03-14] MEDS: POLYETHYLENE (MIRALAX) 17 GM PACK PO PRN (21:15)
[2017-03-15] VITALS (34 sets, daily range): BP systolic 83–139; BP diastolic 41–84; PULSE 63–85; TEMP 36.5–37; O2SAT 92–100
[2017-03-15 05:47] LABS: BASO % 0.1 %; BASO ABS # 0.02 K/uL (0-0.2); COMPLETE YES; EOS % 0.1 %; HEMATOCRIT 33.8 % (37-47); IG% 0.3 %; LYMPH % 6.3 %; LYMPH ABS # 1.15 K/uL (1.2-3.4); MEAN CELL VOLUME 99.4 fL (80-100); MEAN CORPUSCULAR HEMOGLOBIN 32.1 pg (25-34); MEAN CORPUSCULAR HGB CONC 32.2 g/dl (32-36); MONO % 6.8 %; NEUT % 86.4 %; PLATELET COUNT 130 K/uL (130-400); WHITE BLOOD COUNT 18.14 K/uL (4.8-10.8)
[2017-03-15 05:52] LABS: PROTHROMBIN TIME (PATIENT) 33.9 SECONDS (9.0-12.0)
[2017-03-15] MEDS ORDERED: VANCOMYCIN CONSULT ACTIVE PRN (06:30)
[2017-03-15 06:34] LABS: BUN/CREATININE RATIO 10.5 (10-20); CALCIUM 9.3 mg/dl (8.5-10.1); CREATININE 5.3 mg/dl (0.60-1.20); MAGNESIUM 2.8 mg/dl (1.8-2.4); PHOSPHORUS 5.1 mg/dl (2.5-4.9); POTASSIUM 5.3 mmol/L (3.5-5.1)
[2017-03-15] MEDS ORDERED: VANCOMYCIN INJ 750 MG in SODIUM CHLORIDE 0.9% 250ML 250 ML IV ONE (07:00)
--- NOTE | 2017-03-15 07:21 | Critical Care Progress Note ---
Critical Care Progress Note Date of Service Mar 15, 2017. ICU Day ICU Day Number: [address] Barker Subjective Feeling better. One blood culture with gram positives noted. No chest pain. No worsening sputum. No new neuro changes. Dialysis planned today. I discussed care with Nephrology. She remains very frail but given her pulmonary stability and hemodynamic stability she can transfer out of the ICU to an appropriate medical floor. Objective Gen--looking somewhat better HEENT--sclera pale--no new changes Pulmonary--toilette and track--exchange is adequate-- Cardio--rate and B/P acceptable. Dialysis plan for today GI--OBR and monitor --neg Musculo--no new targets. Substantial bruising Neuro--frail and nonfocal Derm--ok Psych--no issues Current SOFA Score SOFA Score Response (Comments) Value PaO2/FiO2 (mmHg) < 300 2 SaO2 / FIO2 142 - 220 2 Platelets (x10) > 150 0 Bilirubin (mg/dL) < 1.2 0 [place] Coma Score 15 0 Level of Hypotension No Hypotension 0 Creatinine (mg/dL) > 5.0 4 Total 8 Assessment & Plan ESRD/CP/ASCAD/Sepsis 1. Cardio--stable and appropriate for transfer out 2. Pulmonary--toilette and track--? early pneumonia with effusion--antibiotic choice appropriate 3. GI--functional 4. F/E/N--tracking--appropriate for issues today 5. ID--consult in place--Vanco continues 6. Dispo--pending continued evaluation and care. Consults & Procedures Consultants: see orders Procedures: none Data Medications: Current Inpatient Medications Medications (Trade) Dose Ordered Sig/Janeth Route Start Time Stop Time Status Last Admin Dose Admin Allopurinol (Zyloprim Tab) 50 mg QAM PO 03/15/17 09:00 04/14/17 08:59 Amiodarone HCl (Cordarone Tab) 200 mg QAM PO 03/15/17 09:00 04/14/17 08:59 Clopidogrel Bisulfate (plAVix TAB) 75 mg HS PO 03/14/17 21:00 04/13/17 20:59 03/14/17 21:01 75 MG Albuterol/ Ipratropium (Duoneb) 3 ml Q6R PRN INH 03/14/17 11:45 04/13/17 11:44 Multivitamins (Multivitamin Tab) 2 tab QAM PO 03/15/17 09:00 04/14/17 08:59 Pantoprazole Sodium (Protonix Tab) 40 mg QAM PO 03/15/17 09:00 04/14/17 08:59 Rosuvastatin Calcium (Crestor Tab) 10 mg HS PO 03/14/17 21:00 04/13/17 20:59 03/14/17 21:01 10 MG Senna/Docusate Sodium (Senokot S Tab) 1 tab BID PO 03/14/17 21:00 04/13/17 20:59 03/14/17 21:01 1 TAB Warfarin Sodium (Coumadin Tab) 2 mg DAILY@1600 PO 03/14/17 16:00 04/13/17 15:59 03/14/17 16:53 2 MG Sevelamer HCl (Renagel Tab) 800 mg TIDM PO 03/14/17 16:30 04/13/17 16:29 03/14/17 16:33 800 MG Acetaminophen (Tylenol Tab) 650 mg Q4H PRN PO 03/14/17 11:45 04/13/17 11:44 Al Hydrox/Mg Hydrox/Simethicone (Maalox Max Susp) 15 ml Q4H PRN PO 03/14/17 11:45 04/13/17 11:44 Magnesium Hydroxide (Milk Of Magnesia Susp) 30 ml Q12H PRN PO 03/14/17 11:45 04/13/17 11:44 Zolpidem Tartrate (Ambien Tab) 5 mg HSZ PRN PO 03/14/17 11:45 04/13/17 11:44 Ondansetron HCl (Zofran Inj) 4 mg Q6H PRN IV 03/14/17 11:45 04/13/17 11:44 Nitroglycerin (Nitrostat Tab) 0.4 mg UD PRN SL 03/14/17 11:45 04/13/17 11:44 Morphine Sulfate (MoRPHine SULFATE INJ) 2 mg Q30M PRN IV 03/14/17 11:45 03/28/17 11:44 03/14/17 21:02 2 MG Polyethylene (Miralax Powder Packet) 17 gm DAILY PRN PO 03/14/17 11:45 04/13/17 11:44 03/14/17 21:15 17 GM Lorazepam (Ativan Inj) 0.5 mg Q4H PRN IV 03/14/17 12:15 04/13/17 12:14 Ioversol (Optiray 320) 100 ml UD PRN IV 03/14/17 12:30 03/18/17 12:29 Vancomycin HCl (Consult) 1 ea UD PRN N/A 03/15/17 06:30 04/14/17 06:29 Vancomycin HCl 750 mg/Sodium Chloride 265 ml @ 125 mls/hr NOW ONCE IV 03/15/17 07:00 03/15/17 09:07 Vital Signs: Date Time Temp Pulse Resp B/P (MAP) Pulse Ox O2 Delivery O2 Flow Rate FiO2 03/15/17 04:01 65 17 95/45 (62) 95 03/15/17 04:00 95 Nasal Cannula 2.0 03/15/17 02:01 67 18 98/43 (61) 95 03/15/17 00:15 95 Nasal Cannula 2.0 03/15/17 00:01 37.0 68 19 91/44 (60) 95 Nasal Cannula 2.0 03/14/17 22:01 71 22 108/41 (63) 92 Nasal Cannula 2.0 03/14/17 20:01 36.6 68 23 88/35 (52) 92 Nasal Cannula 2.0 03/14/17 20:00 92 Nasal Cannula 2.0 03/14/17 18:01 36.5 03/14/17 17:01 77 22 117/53 (72) 98 03/14/17 16:29 77 24 122/56 (83) 03/14/17 16:00 Nasal Cannula 2.0 03/14/17 16:00 77 25 03/14/17 14:01 80 29 99/50 (75) 92 03/14/17 14:00 79 34 92 03/14/17 13:21 82 20 76/40 93 03/14/17 11:44 82 20 72/47 95 Nasal Cannula 2.0 03/14/17 11:26 36.8 84 13 91/48 95 Room Air 03/14/17 10:10 94 Nasal Cannula 2.0 03/14/17 10:01 82 03/14/17 10:01 94 Nasal Cannula 2.0 03/14/17 10:01 36.8 85 13 91/48 94 Nasal Cannula 2.0 Laboratory Results: Last 24 Hours Test 03/14/17 10:10 03/14/17 10:20 03/14/17 11:40 03/14/17 16:05 White Blood Count 24.44 K/uL Red Blood Count 3.59 M/uL Hemoglobin 11.0 g/dL Hematocrit 35.0 % Mean Corpuscular Volume 97.5 fL Mean Corpuscular Hemoglobin 30.6 pg Mean Corpuscular Hemoglobin Concent 31.4 g/dl Platelet Count 173 K/uL Mean Platelet Volume 10.2 fL Neutrophils (%) (Auto) 90.2 % Lymphocytes (%) (Auto) 1.5 % Monocytes (%) (Auto) 7.9 % Eosinophils (%) (Auto) 0.0 % Basophils (%) (Auto) 0.0 % Neutrophils # (Auto) 22.05 K/uL Lymphocytes # (Auto) 0.36 K/uL Monocytes # (Auto) 1.92 K/uL Eosinophils # (Auto) 0.01 K/uL Basophils # (Auto) 0.01 K/uL RDW Standard Deviation 60.1 fL RDW Coefficient of Variation 17.0 % Immature Granulocyte % (Auto) 0.4 % Immature Granulocyte # (Auto) 0.09 K/uL Prothrombin Time 27.8 SECONDS Prothromb Time International Ratio 2.5 Activated Partial Thromboplast Time 34.1 SECONDS Partial Thromboplastin Ratio 1.3 Sodium Level 139 mmol/L Potassium Level 3.9 mmol/L Chloride Level 98 mmol/L Carbon Dioxide Level 29 mmol/L Anion Gap 12.0 mmol/L Blood Urea Nitrogen 45 mg/dl Creatinine 4.60 mg/dl Est Creatinine Clear Calc Drug Dose 9.2 ml/min Estimated GFR () 9.3 Estimated GFR (Non- 8.1 BUN/Creatinine Ratio 9.7 Random Glucose 112 mg/dl Calcium Level 9.0 mg/dl Total Bilirubin 0.8 mg/dl Direct Bilirubin 0.2 mg/dl Aspartate Amino Transf (AST/SGOT) 14 U/L Alanine Aminotransferase (ALT/SGPT) 15 U/L Alkaline Phosphatase 67 U/L Total Creatine Kinase 18 U/L Creatine Kinase MB 0.6 ng/ml Creatine Kinase MB Ratio 3.3 Total Protein 7.1 gm/dl Albumin 2.8 gm/dl Lipase 53 U/L Bedside Troponin I 0.150 ng/ml Bedside Lactic Acid Venous 2.75 mmol/L Bedside Glucose 157 mg/dl Test 03/14/17 21:06 03/15/17 05:17 Bedside Glucose 146 mg/dl White Blood Count 18.14 K/uL Red Blood Count 3.40 M/uL Hemoglobin 10.9 g/dL Hematocrit 33.8 % Mean Corpuscular Volume 99.4 fL Mean Corpuscular Hemoglobin 32.1 pg Mean Corpuscular Hemoglobin Concent 32.2 g/dl Platelet Count 130 K/uL Mean Platelet Volume 11.0 fL Neutrophils (%) (Auto) 86.4 % Lymphocytes (%) (Auto) 6.3 % Monocytes (%) (Auto) 6.8 % Eosinophils (%) (Auto) 0.1 % Basophils (%) (Auto) 0.1 % Neutrophils # (Auto) 15.68 K/uL Lymphocytes # (Auto) 1.15 K/uL Monocytes # (Auto) 1.23 K/uL Eosinophils # (Auto) 0.01 K/uL Basophils # (Auto) 0.02 K/uL RDW Standard Deviation 62.1 fL RDW Coefficient of Variation 17.3 % Immature Granulocyte % (Auto) 0.3 % Immature Granulocyte # (Auto) 0.05 K/uL Prothrombin Time 33.9 SECONDS Prothromb Time International Ratio 3.0 Sodium Level 136 mmol/L Potassium Level 5.3 mmol/L Chloride Level 98 mmol/L Carbon Dioxide Level 31 mmol/L Anion Gap 7.0 mmol/L Blood Urea Nitrogen 56 mg/dl Creatinine 5.30 mg/dl Est Creatinine Clear Calc Drug Dose 8.0 ml/min Estimated GFR () 7.9 Estimated GFR (Non- 6.8 BUN/Creatinine Ratio 10.5 Random Glucose 121 mg/dl Calcium Level 9.3 mg/dl Phosphorus Level 5.1 mg/dl Magnesium Level 2.8 mg/dl Total Bilirubin 0.7 mg/dl Direct Bilirubin 0.2 mg/dl Aspartate Amino Transf (AST/SGOT) 28 U/L Alanine Aminotransferase (ALT/SGPT) 17 U/L Alkaline Phosphatase 59 U/L Total Protein 6.6 gm/dl Albumin 2.5 gm/dl Random Vancomycin Level 11.2 mcg/ml
[2017-03-15] MEDS: SEVELAMER HYDROCH 800 MG TAB PO SCH ×3 (07:30→15:54)
[2017-03-15] MEDS: ALLOPURINOL 100 MG TAB PO SCH (07:57)
[2017-03-15] MEDS: AMIODARONE 200 MG TAB PO SCH (07:58)
[2017-03-15] MEDS: MULTIVITAMIN TAB PO SCH (07:58)
[2017-03-15] MEDS: DOCUSATE SODIUM/SENNA 50/8.6MG TAB PO SCH ×2 (07:58→19:58)
[2017-03-15] MEDS: PANTOprazole SOD 40 MG TAB PO SCH (07:58)
--- NOTE | 2017-03-15 09:07 | Clinical Documentation Query ---
ANDREW Barragan : CLINICAL DOCUMENTATION QUERY Patient is an 87 year old female admitted with chest pain, SOB, and diaphoresis. She was hypotensive upon presentation and recieved an IV NSS bolus. WBC on admission was 24.44 and lactic acid was elevated at 2.75. Blood culture (09/04) positive for gram positive cocci. She recieved a dose of Vancomycin and Zosyn. She has been admitted to ICU, ID consultation undertaken. In your clinical opinion is this patient being managed for: ( X ) Sepsis due to (possible/suspected) gram positive (Staph/Strep) pneumonia ( ) Other explanation of clinical findings (Please Explain) ( ) Unable to determine (Please Define) ( ) Need to Discuss ( ) Not Agree The medical record reflects the following clinical findings, treatment, and risk factors. Clinical Indicators: As above Treatment:She recieved a dose of Vancomycin and Zosyn. She has been admitted to ICU, ID consultation undertaken Risk Factors: Age, frequent healthcare encounters, ESRD Please clarify and document your clinical opinion in the progress notes and discharge summary. Terms such as "probable", "suspected", "likely", "questionable", "possible", or "still to be ruled out" are acceptable. IF IN AGREEMENT, YOU MUST DOCUMENT ABOVE DIAGNOSTIC STATEMENT IN DAILY PROGRESS NOTES AND DISCHARGE SUMMARY. This document is not part of the patient's record. Thank You, Elio Zhang RN [phone]
[2017-03-15] MEDS ORDERED: EPOETIN ALFA 10,000 UNITS/ML VIAL IV. ONE (09:15)
[2017-03-15] MEDS ORDERED: HEPARIN SOD (PORCINE) 1000 UNIT/ML 10 ML VIAL IV SCH (09:15)
--- NOTE | 2017-03-15 09:28 | Nephrology Progress Note ---
Nephrology Progress Note Date of Service Mar 15, 2017. Chief Complaint Follow up evaluation of this patient w/ ESRD admitted with hypotension and chest discomfort Subjective Ms. Rahman was seen & examined in the ICU this morning. She reports that her blood pressure has improved and she has had no chest discomfort overnight. Patient reports that she is breathing comfortably on O2 at 2 L / min NC. Ms. Rahman voices no new medical concerns. She denies fever. Review of Systems Constitutional: No fever Cardiovascular: No chest pain Respiratory: No dyspnea at rest Abdomen: No pain, No nausea Extremities: No leg edema A complete review of systems was performed. Pertinent positives are noted above. All other systems are negative. Vital Signs Last 8 Hrs Date Time Temp Pulse Resp B/P (MAP) Pulse Ox O2 Delivery O2 Flow Rate FiO2 03/15/17 07:30 Nasal Cannula 2.0 03/15/17 07:30 37.0 85 17 103/49 (67) 98 Nasal Cannula 2.0 03/15/17 04:01 65 17 95/45 (62) 95 03/15/17 04:00 95 Nasal Cannula 2.0 03/15/17 02:01 67 18 98/43 (61) 95 Last Recorded Weight Weight (Kilograms): 77.800 Physical Exam General Appearance: no apparent distress Head: normocephalic, atraumatic Eyes: PERRL Neck: no adenopathy, + pertinent finding (R IJ THC with clean dry dressing in place) Respiratory/Chest: lungs clear Cardiovascular: regular rate, rhythm Abdomen/GI: normal bowel sounds, non tender, soft Extremities/Musculoskelatal: no pedal edema Neurologic/Psych: alert, oriented x 3 Family History Asthma Cancer SISTER (Breast cancer) Chronic kidney disease MOTHER Diabetes mellitus FATHER Heart disease FATHER Hypertension FATHER MOTHER Kidney disease Kidney stones Stroke Noncontributory Social History Smoking Status: Never smoker Drug Use: none Marital Status: Housing Status: lives with family Occupation: retired . Retired. Never a smoker. Laboratory Results Past 24 Hours 03/14/17 10:10 Red Blood Count 3.59, Mean Corpuscular Volume 97.5, Mean Corpuscular Hemoglobin 30.6, Mean Corpuscular Hemoglobin Concent 31.4, Mean Platelet Volume 10.2, Neutrophils (%) (Auto) 90.2, Lymphocytes (%) (Auto) 1.5, Monocytes (%) (Auto) 7.9, Eosinophils (%) (Auto) 0.0, Basophils (%) (Auto) 0.0, Neutrophils # (Auto) 22.05, Lymphocytes # (Auto) 0.36, Monocytes # (Auto) 1.92, Eosinophils # (Auto) 0.01, Basophils # (Auto) 0.01 03/15/17 05:17 Red Blood Count 3.40, Mean Corpuscular Volume 99.4, Mean Corpuscular Hemoglobin 32.1, Mean Corpuscular Hemoglobin Concent 32.2, Mean Platelet Volume 11.0, Neutrophils (%) (Auto) 86.4, Lymphocytes (%) (Auto) 6.3, Monocytes (%) (Auto) 6.8, Eosinophils (%) (Auto) 0.1, Basophils (%) (Auto) 0.1, Neutrophils # (Auto) 15.68, Lymphocytes # (Auto) 1.15, Monocytes # (Auto) 1.23, Eosinophils # (Auto) 0.01, Basophils # (Auto) 0.02 03/14/17 10:10 03/15/17 05:17 Test 03/14/17 10:10 03/14/17 10:20 03/14/17 11:40 03/14/17 16:05 White Blood Count 24.44 K/uL (4.8-10.8) Red Blood Count 3.59 M/uL (4.2-5.4) Hemoglobin 11.0 g/dL (12.0-16.0) Hematocrit 35.0 % (37-47) Mean Corpuscular Volume 97.5 fL (80-100) Mean Corpuscular Hemoglobin 30.6 pg (25-34) Mean Corpuscular Hemoglobin Concent 31.4 g/dl (32-36) Platelet Count 173 K/uL (130-400) Mean Platelet Volume 10.2 fL (7.4-10.4) Neutrophils (%) (Auto) 90.2 % Lymphocytes (%) (Auto) 1.5 % Monocytes (%) (Auto) 7.9 % Eosinophils (%) (Auto) 0.0 % Basophils (%) (Auto) 0.0 % Neutrophils # (Auto) 22.05 K/uL (1.4-6.5) Lymphocytes # (Auto) 0.36 K/uL (1.2-3.4) Monocytes # (Auto) 1.92 K/uL (0.11-0.59) Eosinophils # (Auto) 0.01 K/uL (0-0.5) Basophils # (Auto) 0.01 K/uL (0-0.2) RDW Standard Deviation 60.1 fL (36.4-46.3) RDW Coefficient of Variation 17.0 % (11.5-14.5) Immature Granulocyte % (Auto) 0.4 % Immature Granulocyte # (Auto) 0.09 K/uL (0.00-0.02) Prothrombin Time 27.8 SECONDS (9.0-12.0) Prothromb Time International Ratio 2.5 (0.9-1.1) Activated Partial Thromboplast Time 34.1 SECONDS (21.0-31.0) Partial Thromboplastin Ratio 1.3 Anion Gap 12.0 mmol/L (3-11) Est Creatinine Clear Calc Drug Dose 9.2 ml/min Estimated GFR () 9.3 Estimated GFR (Non- 8.1 BUN/Creatinine Ratio 9.7 (10-20) Calcium Level 9.0 mg/dl (8.5-10.1) Total Bilirubin 0.8 mg/dl (0.2-1) Direct Bilirubin 0.2 mg/dl (0-0.2) Aspartate Amino Transf (AST/SGOT) 14 U/L (15-37) Alanine Aminotransferase (ALT/SGPT) 15 U/L (12-78) Alkaline Phosphatase 67 U/L (45-117) Total Creatine Kinase 18 U/L (26-192) Creatine Kinase MB 0.6 ng/ml (0.5-3.6) Creatine Kinase MB Ratio 3.3 (0-3.0) Total Protein 7.1 gm/dl (6.4-8.2) Albumin 2.8 gm/dl (3.4-5.0) Lipase 53 U/L (73-393) Bedside Troponin I 0.150 ng/ml (0-0.045) Bedside Lactic Acid Venous 2.75 mmol/L (0.90-1.70) Bedside Glucose 157 mg/dl (70-90) Test 03/14/17 21:06 03/15/17 05:17 Bedside Glucose 146 mg/dl (70-90) White Blood Count 18.14 K/uL (4.8-10.8) Red Blood Count 3.40 M/uL (4.2-5.4) Hemoglobin 10.9 g/dL (12.0-16.0) Hematocrit 33.8 % (37-47) Mean Corpuscular Volume 99.4 fL (80-100) Mean Corpuscular Hemoglobin 32.1 pg (25-34) Mean Corpuscular Hemoglobin Concent 32.2 g/dl (32-36) Platelet Count 130 K/uL (130-400) Mean Platelet Volume 11.0 fL (7.4-10.4) Neutrophils (%) (Auto) 86.4 % Lymphocytes (%) (Auto) 6.3 % Monocytes (%) (Auto) 6.8 % Eosinophils (%) (Auto) 0.1 % Basophils (%) (Auto) 0.1 % Neutrophils # (Auto) 15.68 K/uL (1.4-6.5) Lymphocytes # (Auto) 1.15 K/uL (1.2-3.4) Monocytes # (Auto) 1.23 K/uL (0.11-0.59) Eosinophils # (Auto) 0.01 K/uL (0-0.5) Basophils # (Auto) 0.02 K/uL (0-0.2) RDW Standard Deviation 62.1 fL (36.4-46.3) RDW Coefficient of Variation 17.3 % (11.5-14.5) Immature Granulocyte % (Auto) 0.3 % Immature Granulocyte # (Auto) 0.05 K/uL (0.00-0.02) Prothrombin Time 33.9 SECONDS (9.0-12.0) Prothromb Time International Ratio 3.0 (0.9-1.1) Anion Gap 7.0 mmol/L (3-11) Est Creatinine Clear Calc Drug Dose 8.0 ml/min Estimated GFR () 7.9 Estimated GFR (Non- 6.8 BUN/Creatinine Ratio 10.5 (10-20) Calcium Level 9.3 mg/dl (8.5-10.1) Phosphorus Level 5.1 mg/dl (2.5-4.9) Magnesium Level 2.8 mg/dl (1.8-2.4) Total Bilirubin 0.7 mg/dl (0.2-1) Direct Bilirubin 0.2 mg/dl (0-0.2) Aspartate Amino Transf (AST/SGOT) 28 U/L (15-37) Alanine Aminotransferase (ALT/SGPT) 17 U/L (12-78) Alkaline Phosphatase 59 U/L (45-117) Total Protein 6.6 gm/dl (6.4-8.2) Albumin 2.5 gm/dl (3.4-5.0) Random Vancomycin Level 11.2 mcg/ml Allergies Coded Allergies: No Known Allergies (Unverified , 03/14/17) Medications Current Inpatient Medications Medications (Trade) Dose Ordered Sig/Janeth Route Start Time Stop Time Status Last Admin Dose Admin Allopurinol (Zyloprim Tab) 50 mg QAM PO 03/15/17 09:00 04/14/17 08:59 03/15/17 07:57 50 MG Amiodarone HCl (Cordarone Tab) 200 mg QAM PO 03/15/17 09:00 04/14/17 08:59 03/15/17 07:58 200 MG Clopidogrel Bisulfate (plAVix TAB) 75 mg HS PO 03/14/17 21:00 04/13/17 20:59 03/14/17 21:01 75 MG Albuterol/ Ipratropium (Duoneb) 3 ml Q6R PRN INH 03/14/17 11:45 04/13/17 11:44 Multivitamins (Multivitamin Tab) 2 tab QAM PO 03/15/17 09:00 04/14/17 08:59 03/15/17 07:58 2 TAB Pantoprazole Sodium (Protonix Tab) 40 mg QAM PO 03/15/17 09:00 04/14/17 08:59 03/15/17 07:58 40 MG Rosuvastatin Calcium (Crestor Tab) 10 mg HS PO 03/14/17 21:00 04/13/17 20:59 03/14/17 21:01 10 MG Senna/Docusate Sodium (Senokot S Tab) 1 tab BID PO 03/14/17 21:00 04/13/17 20:59 03/15/17 07:58 1 TAB Warfarin Sodium (Coumadin Tab) 2 mg DAILY@1600 PO 03/14/17 16:00 04/13/17 15:59 03/14/17 16:53 2 MG Sevelamer HCl (Renagel Tab) 800 mg TIDM PO 03/14/17 16:30 04/13/17 16:29 03/15/17 07:30 800 MG Acetaminophen (Tylenol Tab) 650 mg Q4H PRN PO 03/14/17 11:45 04/13/17 11:44 Al Hydrox/Mg Hydrox/Simethicone (Maalox Max Susp) 15 ml Q4H PRN PO 03/14/17 11:45 04/13/17 11:44 Magnesium Hydroxide (Milk Of Magnesia Susp) 30 ml Q12H PRN PO 03/14/17 11:45 04/13/17 11:44 Zolpidem Tartrate (Ambien Tab) 5 mg HSZ PRN PO 03/14/17 11:45 04/13/17 11:44 Ondansetron HCl (Zofran Inj) 4 mg Q6H PRN IV 03/14/17 11:45 04/13/17 11:44 Nitroglycerin (Nitrostat Tab) 0.4 mg UD PRN SL 03/14/17 11:45 04/13/17 11:44 Morphine Sulfate (MoRPHine SULFATE INJ) 2 mg Q30M PRN IV 03/14/17 11:45 03/28/17 11:44 03/14/17 21:02 2 MG Polyethylene (Miralax Powder Packet) 17 gm DAILY PRN PO 03/14/17 11:45 04/13/17 11:44 03/14/17 21:15 17 GM Lorazepam (Ativan Inj) 0.5 mg Q4H PRN IV 03/14/17 12:15 04/13/17 12:14 Ioversol (Optiray 320) 100 ml UD PRN IV 03/14/17 12:30 03/18/17 12:29 Vancomycin HCl (Consult) 1 ea UD PRN N/A 03/15/17 06:30 04/14/17 06:29 Impression (1) 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 (2) Leukocytosis (3) Hypotension Patient admitted for evaluation of chest discomfort in the setting of hypotension and leukocytosis. CXR shows small L pleural effusion and atelectasis. Chest CT was negative for dissection. Troponin is mildly elevated due to ESRD. ECG was negative for myocardial ischemia. Blood pressure has improved following IV fluid bolus. Patient is symptomatically improved. Need to remain vigilant for possible infection from pulmonary source or HD catheter. AVF hematoma is not erythematous or fluctuant. Recommendations END STAGE RENAL DISEASE: -- Patient is mildly hyperkalemic. Will schedule HD for this morning. Will use 2K 2Ca bath and limit UF to 1 L. Will hold Heparin since patient is on Warfarin therapy ID: -- One of two blood cultures are positive for G+ cocci. Will await final culture results -- Continue empiric Vancomycin & Zosyn therapy -- Will consult Vascular surgery to assess AVF for use. If AVF cannot be used for vascular access may need to change out IJ THC CHEST PAIN: -- CXR films reviewed and chest CT report read. No evidence of dissection -- Monitor serial troponin levels Patient was seen & examined in the ICU. Case discussed w/ ICU team. 30 min ICU care provided
[2017-03-15] MEDS ORDERED: PARICALCITOL 5 MCG/ML VIAL (ZEMPLAR) IV. SCH (10:00)
[2017-03-15] MEDS ORDERED: EPOETIN ALFA INJ 7,000 UNITS in SYRINGE 0 ML IV. SCH (10:00)
--- NOTE | 2017-03-15 13:28 | Cardiology Follow-Up ---
Cardiology Follow-Up Date of Service Mar 15, 2017. Cardiology Follow-Up Subjective The patient is resting comfortably in bed without complaints of angina pectoris or dyspnea. Her back pain has improved. Will undergo hemodialysis today. Objective Blood pressure is 110/60 with a regular pulse of 65. Respiratory rate is 18 in the patient is afebrile at 36.5 degrees Celsius. Neck is supple with delayed and prolonged carotid upstrokes. A transmitted murmur is noted bilaterally. Jugular venous pressure is 10 centimeters of water at 45 degrees. Cardiovascular exam reveals a regular rhythm with a 2/6 crescendo decrescendo systolic murmur heard loudest at the base. S2 is audible at the apex. No diastolic murmurs. Lungs are clear without rales, rhonchi, wheezes. Abdomen is obese without bruits. Extremities reveal intact radial artery pulses bilaterally. A bruit is noted over the left upper extremity fistula. Trace pretibial edema noted. Erythematous region noted in the inner aspect of the right thigh. Data CBC notes a hemoglobin of 10.9, hematocrit 33.8, white count 18.1, platelet count [id number]. Electrolytes notice sodium of 136, potassium 5.3, chloride 98, bicarb 31, BUN 56, creatinine 5.3, and a glucose of 110. Troponin I level is elevated at 7.36. INR is therapeutic at 3.0. traffic monitor specialist is benign. Impression and plan 1. Chest pain syndrome. Likely secondary to a presumed pneumonia. She is improving with intravenous antibiotics. Elevated troponin is difficult to interpret as there is no CK isoenzyme. However, she does have a chronically elevated troponin I level. 2. Coronary artery disease-anatomy described in yesterday's note. Continue medical management. She refuses cardiac catheterization. 3. Moderate aortic stenosis-echocardiogram January 2017 4. Moderate mitral regurgitation 5. Paroxysmal atrial fibrillation-remains in sinus rhythm on amiodarone 6. History of diastolic congestive heart failure-volume managed by hemodialysis 7. Hypercholesterolemia 8. End-stage renal disease 9. Diabetes mellitus
--- NOTE | 2017-03-15 14:04 | Progress Note ---
Subjective Date of Service: Mar 15, 2017. Subjective Pt evaluation today including: conversation w/ patient, physical exam, chart review, lab review, review of studies, review of inpatient medication list Problem List Medical Problems: (1) CHF (congestive heart failure) Status: Acute (2) CHF (congestive heart failure) Status: Acute (3) Chronic kidney insufficiency Status: Acute (4) Chronic renal failure Status: Acute (5) Congestive heart failure Status: Acute (6) E16.2 Status: Acute (7) Elevated INR Status: Acute (8) Elevated troponin Status: Acute (9) GI bleed Status: Acute (10) Hypotension Status: Acute (11) Left leg DVT Status: Acute (12) Pancytopenia Status: Acute (13) Pneumonia Status: Acute (14) Pulmonary edema Status: Acute (15) Respiratory distress Status: Acute (16) Sepsis Status: Acute (17) ST segment changes on electrocardiogram Status: Acute (18) Substernal precordial chest pain Status: Acute (19) Substernal precordial chest pain Status: Acute (20) Symptomatic anemia Status: Acute (21) Weakness Status: Acute Review of Systems Constitutional: No fever, No chills, No sweats, No weight loss, No weakness Eyes: No worsening of vision, No eye pain, No redness, No discharge ENT: No hearing loss, No unusual epistaxis, No nasal symptoms, No sore throat Respiratory: + cough, No sputum, No wheezing, No shortness of breath, No dyspnea on exertion Cardiac: No chest pain, No orthopnea, No PND, No edema Abdomen: No pain, No nausea, No vomiting, No diarrhea, No constipation Musculoskeletal: No joint pain, No muscle pain Female : No dysuria, No urinary frequency, No hematuria, No incontinence Neurologic: No memory loss, No paralysis, No weakness, No numbness/tingling Psychiatric: No depression symptoms, No anhedonism, No anxiety, No insomnia Endo: No fatigue, No excessive thirst Skin: No rash, No itch Objective Vital Signs Date Time Temp Pulse Resp B/P (MAP) Pulse Ox O2 Delivery O2 Flow Rate FiO2 03/15/17 13:47 37.0 72 20 138/78 (98) 99 Nasal Cannula 2.0 03/15/17 12:45 66 115/55 03/15/17 12:30 64 105/53 03/15/17 12:15 65 113/51 03/15/17 12:08 36.6 63 100/55 (70) 03/15/17 12:00 63 102/55 03/15/17 11:15 Nasal Cannula 2.0 03/15/17 11:15 37.0 64 17 100/65 (77) 98 Nasal Cannula 2.0 03/15/17 08:00 Nasal Cannula 03/15/17 07:30 Nasal Cannula 2.0 03/15/17 07:30 37.0 85 17 103/49 (67) 98 Nasal Cannula 2.0 03/15/17 07:30 98 Nasal Cannula 2.0 03/15/17 04:01 65 17 95/45 (62) 95 03/15/17 04:00 95 Nasal Cannula 2.0 03/15/17 02:01 67 18 98/43 (61) 95 03/15/17 00:15 95 Nasal Cannula 2.0 03/15/17 00:01 37.0 68 19 91/44 (60) 95 Nasal Cannula 2.0 03/14/17 22:01 71 22 108/41 (63) 92 Nasal Cannula 2.0 03/14/17 20:01 36.6 68 23 88/35 (52) 92 Nasal Cannula 2.0 03/14/17 20:00 92 Nasal Cannula 2.0 03/14/17 18:01 36.5 03/14/17 17:01 77 22 117/53 (72) 98 03/14/17 16:29 77 24 122/56 (83) 03/14/17 16:00 Nasal Cannula 2.0 03/14/17 16:00 77 25 03/14/17 14:01 80 29 99/50 (75) 92 03/14/17 14:00 79 34 92 Physical Exam General Appearance: WD/WN, no apparent distress Eyes: normal inspection, PERRL, EOMI, sclerae normal Neck: supple, no adenopathy, thyroid normal, no JVD Respiratory/Chest: chest non-tender, lungs clear, normal breath sounds, no respiratory distress Cardiovascular: regular rate, rhythm, no edema, no gallop, no JVD Abdomen: normal bowel sounds, non tender, soft, no organomegaly Extremities: normal range of motion, non-tender, normal inspection, no pedal edema Neurologic/Psychiatric: no motor/sensory deficits, alert, normal mood/affect, oriented x 3 Laboratory Results Last 24 Hours Test 03/14/17 16:05 03/14/17 21:06 03/15/17 05:17 03/15/17 10:47 Bedside Glucose 157 mg/dl 146 mg/dl 194 mg/dl White Blood Count 18.14 K/uL Red Blood Count 3.40 M/uL Hemoglobin 10.9 g/dL Hematocrit 33.8 % Mean Corpuscular Volume 99.4 fL Mean Corpuscular Hemoglobin 32.1 pg Mean Corpuscular Hemoglobin Concent 32.2 g/dl Platelet Count 130 K/uL Mean Platelet Volume 11.0 fL Neutrophils (%) (Auto) 86.4 % Lymphocytes (%) (Auto) 6.3 % Monocytes (%) (Auto) 6.8 % Eosinophils (%) (Auto) 0.1 % Basophils (%) (Auto) 0.1 % Neutrophils # (Auto) 15.68 K/uL Lymphocytes # (Auto) 1.15 K/uL Monocytes # (Auto) 1.23 K/uL Eosinophils # (Auto) 0.01 K/uL Basophils # (Auto) 0.02 K/uL RDW Standard Deviation 62.1 fL RDW Coefficient of Variation 17.3 % Immature Granulocyte % (Auto) 0.3 % Immature Granulocyte # (Auto) 0.05 K/uL Prothrombin Time 33.9 SECONDS Prothromb Time International Ratio 3.0 Sodium Level 136 mmol/L Potassium Level 5.3 mmol/L Chloride Level 98 mmol/L Carbon Dioxide Level 31 mmol/L Anion Gap 7.0 mmol/L Blood Urea Nitrogen 56 mg/dl Creatinine 5.30 mg/dl Est Creatinine Clear Calc Drug Dose 8.0 ml/min Estimated GFR () 7.9 Estimated GFR (Non- 6.8 BUN/Creatinine Ratio 10.5 Random Glucose 121 mg/dl Calcium Level 9.3 mg/dl Phosphorus Level 5.1 mg/dl Magnesium Level 2.8 mg/dl Total Bilirubin 0.7 mg/dl Direct Bilirubin 0.2 mg/dl Aspartate Amino Transf (AST/SGOT) 28 U/L Alanine Aminotransferase (ALT/SGPT) 17 U/L Alkaline Phosphatase 59 U/L Troponin I 7.360 ng/ml Total Protein 6.6 gm/dl Albumin 2.5 gm/dl Random Vancomycin Level 11.2 mcg/ml Assessment and Plan 87 y/o F ESRD, CAD, DVT - on Coumadin, DM2, PAF. Pt presents with moderate to severe central CP, radiating to her L back and accompanied by SOB and diaphoresis. Onset of symptoms occurred at 5am waking her from sleep. She has a chronic mild trop elevation. She was admitted with similar symptoms 01/17 and declined a cardiac cath at that time. Her BP is low at the time of admission despite receiving 500 CC of NS in the ER. Initial labs are notable for leukocytosis. She denies a productive cough, recorded fevers, nausea/ vomiting or diarrhea. She had a few episodes of sweats the prior evening. CAD, Persistent CP - SOB, radiation to back - she has had a previous DC and states she did not have CP symptoms at the time. Trop is approximately at baseline and EKG does not show any overt changes. CT dissection study unremarkable. Pt refusing cardiac cath at this time. Appreciate cardiology evaluation. Cont stain and plavix Sepsis likely from staph bacteremia/?PNA - Pt was hypotensive on admission and admitted to ICU. ID consulted. Continue zosyn and vancomycin at this time. Pt has nonproductive cough. No fevers and hypotension resolved. Await cx at this time. Leukocytosis 24-->18. ESRD - Nephrology consulted - Currently electrolytes acceptable, no acute need for HD at this time PAF - Currently in sinus rhythm, rate controlled, cont amiodarone 200 mg PO q AM and coumadin 2 mg PO daily, appreciate cardiology recs GERD - history of GI bleed - cont PPI DVT ppx with coumadin Pt is DNR now
--- NOTE | 2017-03-15 14:25 | Surgery Consultation ---
Consultation Date of Service Mar 15, 2017. Chief Complaint Sepsis History of Present Illness The patient is a 87 year old female with a right int jug vein permcath in place. This was placed due to a hematoma of her left upper arm fistula. She was admitted with sepsis and gram + blood culture. She denies fever and chills. Vitals Vital Signs Past 12 Hours Date Time Temp Pulse Resp B/P (MAP) Pulse Ox O2 Delivery O2 Flow Rate FiO2 03/15/17 13:47 37.0 72 20 138/78 (98) 99 Nasal Cannula 2.0 03/15/17 13:45 72 139/78 03/15/17 13:30 72 131/62 03/15/17 13:15 73 134/57 03/15/17 13:00 72 101/52 03/15/17 12:45 66 115/55 03/15/17 12:30 64 105/53 03/15/17 12:15 65 113/51 03/15/17 12:08 36.6 63 100/55 (70) 03/15/17 12:00 63 102/55 03/15/17 11:15 Nasal Cannula 2.0 03/15/17 11:15 37.0 64 17 100/65 (77) 98 Nasal Cannula 2.0 03/15/17 08:00 Nasal Cannula 03/15/17 07:30 Nasal Cannula 2.0 03/15/17 07:30 37.0 85 17 103/49 (67) 98 Nasal Cannula 2.0 03/15/17 07:30 98 Nasal Cannula 2.0 03/15/17 04:01 65 17 95/45 (62) 95 03/15/17 04:00 95 Nasal Cannula 2.0 Allergies Coded Allergies: No Known Allergies (Unverified , 03/14/17) Home Medications Scheduled Allopurinol (Zyloprim), 50 MG PO QAM Amiodarone Hcl (Cordarone), 200 MG PO QAM Clopidogrel (Plavix), 75 MG PO HS Multiple Vitamin (Renal Multivitamin Formul), 2 TABS PO QAM Nitroglycerin (Nitrostat), 0.4 MG UT PRN Nutritional Supplements (Colon Formula), 1 CAP PO QAM Pantoprazole (Protonix), 40 MG PO QAM Polyethylene Glycol 3350 (Miralax), 17 GM PO AMPM Rosuvastatin Calcium (Crestor), 10 MG PO HS Sennosides-Docusate Sodium (Stool Softener), 1 TAB PO BID Sevelamer Carbonate (Renvela), 800 MG PO WM Warfarin Sodium (Warfarin Sodium), 1 TAB PO QPM Scheduled PRN Ipratropium-Albuterol (Duoneb), 1 TREATMENT INH Q4H PRN for SOB/Wheezing Problem List Medical Problems: (1) Ac Myocrd Infrct,Oth Inferior Wall,Subseq Epis Car (2) Acute kidney injury (3) Anemia (4) Aortocoronary Bypass (5) Bronchopneumonia (6) CHF exacerbation (7) Chronic Kidney Disease, Stage Iii (Moderate) (8) Chronic kidney disease, stage IV (severe) (9) Chronic kidney disease, stage V (10) Coronary artery disease (11) Coronary Atherosclerosis Of [place] Coronary Vessel (12) Diab Qiana Wo Compl, Type Ii Or Unspec Type, Not Uncntrld (13) Diabetes (14) DVT (deep venous thrombosis) (15) Dyspnea (16) 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 (17) ESRD (end stage renal disease) on dialysis (18) Hypertension (19) Hypertension Nos (20) Hypotension (21) Hypoxia (22) Knee Joint Replacement Status (23) Leukocytosis (24) New onset atrial fibrillation (25) NSTEMI (non-ST elevated myocardial infarction) (26) NSTEMI (non-ST elevated myocardial infarction) (27) Old Myocardial Infarct (28) Percutaneous Translum Coron Angioplasty Status (29) Peripheral vascular disease (30) Pneumonia, Organism Nos (31) Prolonged Q-T interval on ECG (32) Pulmonary embolism (33) Pure Hypercholesterolem (34) Rectal bleeding (35) Shortness of breath (36) Urin Tract Infection Nos Surgical / Medical History Hx Cardiac Surgery: Yes (aortocoronary bipass, cardiac cath) Hx Abdominal Surgery: Yes (cholecystectomy, hysterectomy) Hx Cancer Surgery: No Hx Thoracic Surgery: No Hx Orthopedic: Yes (back, wrist, hip replacement) Hx Urinary Tract Surgery: No HX Other Surgery: Yes (fistlula, cataract removal) Past Medical/Surgical History: Heart Disease, High Cholesterol, Hypertension Family History Asthma Cancer SISTER (Breast cancer) Chronic kidney disease MOTHER Diabetes mellitus FATHER Heart disease FATHER Hypertension FATHER MOTHER Kidney disease Kidney stones Stroke Social History Smoking Status: Former Smoker Hx Tobacco Use In Past Year?: No Hx Alcohol Use - Type & Amnt: No Hx Substance Use -Type & Amnt: No Review of Systems Constitutional: + malaise ENMT: No dental pain, No loss of hearing, No epistaxis, No ear discharge, No ear pain, No gum swelling, No mouth pain, No mouth swelling, No nasal congestion , No nasal pain, No rhinorrhea, No stridor, No tinnitus, No sore throat, No throat swelling, No problem reported Cardiovascular: No chest pain, No chest tightness, No chest pressure, No palpitations, No syncope, No diaphoresis, No edema, No intermittent claudication , No orthopnea, No cyanosis, No mumur, No lightheadedness, No paroxysmal nocturnal dyspnea, No problem reported Gastrointestinal: No abdominal pain, No constipation, No diarrhea, No nausea, No vomiting, No anorexia, No appetite changes, No belching, No flatulence, No food intolerance, No hematemesis, No hemorrhoids, No hematochezia, No stool changes, No heartburn, No indigestion, No dysphagia, No rectal bleeding, No problem reported Psychiatric: No anxiety, No alcohol abuse, No auditory hallucinations, No depression, No drug abuse, No homicidal ideation, No mood changes, No suicidal ideation, No visual hallucinations, No problem reported Physical Exam Constitutional: General Apperance: heathly-appearing, well-nourished, well-developed Level of Distress: NAD Ambulation: ambulating normally Psychiatric: Orientation: oriented except where noted Memory: recent memory normal, remote memory normal Head: normocephalic ENMT: normal ENT inspection Lungs: Respiratory effort: no dyspnea Auscultation: breath sounds normal Cardiovascular: Heart Auscultation: RRR Abdomen: Inspection & Palpation: soft Musculoskeletal: normal Extremities: Upper Right: no cyanosis, no edema, no varicosities, no palpable cord, no clubbing, no ulcers, no mottling Upper Left: no cyanosis, no edema, no palpable cord, no clubbing, no ulcers , no mottling Lower Right: no cyanosis, no edema, no varicosities, no palpable cord, no clubbing, no ulcers, no mottling Lower Left: no cyanosis, no edema, no varicosities, no palpable cord, no clubbing, no ulcers, no mottling Neurologic: Cranial Nerves: grossly intact Sensation: grossly intact Assessment and Plan Imp: Possibly infected permcath Plan: Recommend removal of permcath. I have discussed the risks options and benefits of the procedure with the patient. The patient understands the risks options and benefits and agrees to the procedure. We will ue the fistula tomorrow. and if it does not run well we can replace a new permcath. o
--- NOTE | 2017-03-15 14:46 | Progress Note ---
Subjective Date of Service: Mar 15, 2017. Subjective pt for transfer out of ICU. initial blood culture 1/2 sets with gpc, ID pending. repeat blood cultures ordered. afebrile. wbc improved. remains on vanco. ct negative dissection. no overnight events. Problem List Medical Problems: (1) CHF (congestive heart failure) Status: Acute (2) CHF (congestive heart failure) Status: Acute (3) Chronic kidney insufficiency Status: Acute (4) Chronic renal failure Status: Acute (5) Congestive heart failure Status: Acute (6) E16.2 Status: Acute (7) Elevated INR Status: Acute (8) Elevated troponin Status: Acute (9) GI bleed Status: Acute (10) Hypotension Status: Acute (11) Left leg DVT Status: Acute (12) Pancytopenia Status: Acute (13) Pneumonia Status: Acute (14) Pulmonary edema Status: Acute (15) Respiratory distress Status: Acute (16) Sepsis Status: Acute (17) ST segment changes on electrocardiogram Status: Acute (18) Substernal precordial chest pain Status: Acute (19) Substernal precordial chest pain Status: Acute (20) Symptomatic anemia Status: Acute (21) Weakness Status: Acute Objective Vital Signs Date Time Temp Pulse Resp B/P (MAP) Pulse Ox O2 Delivery O2 Flow Rate FiO2 03/15/17 13:47 37.0 72 20 138/78 (98) 99 Nasal Cannula 2.0 03/15/17 13:45 72 139/78 03/15/17 13:30 72 131/62 03/15/17 13:15 73 134/57 03/15/17 13:00 72 101/52 03/15/17 12:45 66 115/55 03/15/17 12:30 64 105/53 03/15/17 12:15 65 113/51 03/15/17 12:08 36.6 63 100/55 (70) 03/15/17 12:00 63 102/55 03/15/17 11:15 Nasal Cannula 2.0 03/15/17 11:15 37.0 64 17 100/65 (77) 98 Nasal Cannula 2.0 03/15/17 08:00 Nasal Cannula 03/15/17 07:30 Nasal Cannula 2.0 03/15/17 07:30 37.0 85 17 103/49 (67) 98 Nasal Cannula 2.0 03/15/17 07:30 98 Nasal Cannula 2.0 03/15/17 04:01 65 17 95/45 (62) 95 03/15/17 04:00 95 Nasal Cannula 2.0 03/15/17 02:01 67 18 98/43 (61) 95 03/15/17 00:15 95 Nasal Cannula 2.0 03/15/17 00:01 37.0 68 19 91/44 (60) 95 Nasal Cannula 2.0 03/14/17 22:01 71 22 108/41 (63) 92 Nasal Cannula 2.0 03/14/17 20:01 36.6 68 23 88/35 (52) 92 Nasal Cannula 2.0 03/14/17 20:00 92 Nasal Cannula 2.0 03/14/17 18:01 36.5 03/14/17 17:01 77 22 117/53 (72) 98 03/14/17 16:29 77 24 122/56 (83) 03/14/17 16:00 Nasal Cannula 2.0 03/14/17 16:00 77 25 Laboratory Results Item Value Date Time Blood Culture - Preliminary Resulted 03/14/17 1125 Blood Gram Positive Cocci Last 24 Hours Test 03/14/17 16:05 03/14/17 21:06 03/15/17 05:17 03/15/17 10:47 Bedside Glucose 157 mg/dl 146 mg/dl 194 mg/dl White Blood Count 18.14 K/uL Red Blood Count 3.40 M/uL Hemoglobin 10.9 g/dL Hematocrit 33.8 % Mean Corpuscular Volume 99.4 fL Mean Corpuscular Hemoglobin 32.1 pg Mean Corpuscular Hemoglobin Concent 32.2 g/dl Platelet Count 130 K/uL Mean Platelet Volume 11.0 fL Neutrophils (%) (Auto) 86.4 % Lymphocytes (%) (Auto) 6.3 % Monocytes (%) (Auto) 6.8 % Eosinophils (%) (Auto) 0.1 % Basophils (%) (Auto) 0.1 % Neutrophils # (Auto) 15.68 K/uL Lymphocytes # (Auto) 1.15 K/uL Monocytes # (Auto) 1.23 K/uL Eosinophils # (Auto) 0.01 K/uL Basophils # (Auto) 0.02 K/uL RDW Standard Deviation 62.1 fL RDW Coefficient of Variation 17.3 % Immature Granulocyte % (Auto) 0.3 % Immature Granulocyte # (Auto) 0.05 K/uL Prothrombin Time 33.9 SECONDS Prothromb Time International Ratio 3.0 Sodium Level 136 mmol/L Potassium Level 5.3 mmol/L Chloride Level 98 mmol/L Carbon Dioxide Level 31 mmol/L Anion Gap 7.0 mmol/L Blood Urea Nitrogen 56 mg/dl Creatinine 5.30 mg/dl Est Creatinine Clear Calc Drug Dose 8.0 ml/min Estimated GFR () 7.9 Estimated GFR (Non- 6.8 BUN/Creatinine Ratio 10.5 Random Glucose 121 mg/dl Calcium Level 9.3 mg/dl Phosphorus Level 5.1 mg/dl Magnesium Level 2.8 mg/dl Total Bilirubin 0.7 mg/dl Direct Bilirubin 0.2 mg/dl Aspartate Amino Transf (AST/SGOT) 28 U/L Alanine Aminotransferase (ALT/SGPT) 17 U/L Alkaline Phosphatase 59 U/L Troponin I 7.360 ng/ml Total Protein 6.6 gm/dl Albumin 2.5 gm/dl Random Vancomycin Level 11.2 mcg/ml Assessment and Plan (1) Positive blood culture Assessment & Plan: continue vanco, repeat cultures, follow results. (2) Leukocytosis
--- NOTE | 2017-03-15 15:01 | Pharmacy Progress Note ---
Pharmacy Antibiotic Consult Date of Service: Mar 15, 2017. Pharmacy Dosing Scope Pharmacy is consulted to initiate vancomycin IV dosing therapy, order appropriate labs and adjust drug dose/frequency. Subjective The patient is a 87 year old female admitted on Mar 14, 2017 at 12:20. Objective Height (Feet): 5 Height (Inches): 6.00 Weight (Kilograms): 77.800 Lab Results (24hrs): Test 03/14/17 21:06 03/15/17 05:17 03/15/17 10:47 Bedside Glucose 146 mg/dl (70-90) 194 mg/dl (70-90) White Blood Count 18.14 K/uL (4.8-10.8) Red Blood Count 3.40 M/uL (4.2-5.4) Hemoglobin 10.9 g/dL (12.0-16.0) Hematocrit 33.8 % (37-47) Mean Corpuscular Volume 99.4 fL (80-100) Mean Corpuscular Hemoglobin 32.1 pg (25-34) Mean Corpuscular Hemoglobin Concent 32.2 g/dl (32-36) Platelet Count 130 K/uL (130-400) Mean Platelet Volume 11.0 fL (7.4-10.4) Neutrophils (%) (Auto) 86.4 % Lymphocytes (%) (Auto) 6.3 % Monocytes (%) (Auto) 6.8 % Eosinophils (%) (Auto) 0.1 % Basophils (%) (Auto) 0.1 % Neutrophils # (Auto) 15.68 K/uL (1.4-6.5) Lymphocytes # (Auto) 1.15 K/uL (1.2-3.4) Monocytes # (Auto) 1.23 K/uL (0.11-0.59) Eosinophils # (Auto) 0.01 K/uL (0-0.5) Basophils # (Auto) 0.02 K/uL (0-0.2) RDW Standard Deviation 62.1 fL (36.4-46.3) RDW Coefficient of Variation 17.3 % (11.5-14.5) Immature Granulocyte % (Auto) 0.3 % Immature Granulocyte # (Auto) 0.05 K/uL (0.00-0.02) Prothrombin Time 33.9 SECONDS (9.0-12.0) Prothromb Time International Ratio 3.0 (0.9-1.1) Sodium Level 136 mmol/L (136-145) Potassium Level 5.3 mmol/L (3.5-5.1) Chloride Level 98 mmol/L (98-107) Carbon Dioxide Level 31 mmol/L (21-32) Anion Gap 7.0 mmol/L (3-11) Blood Urea Nitrogen 56 mg/dl (7-18) Creatinine 5.30 mg/dl (0.60-1.20) Est Creatinine Clear Calc Drug Dose 8.0 ml/min Estimated GFR () 7.9 Estimated GFR (Non- 6.8 BUN/Creatinine Ratio 10.5 (10-20) Random Glucose 121 mg/dl (70-99) Calcium Level 9.3 mg/dl (8.5-10.1) Phosphorus Level 5.1 mg/dl (2.5-4.9) Magnesium Level 2.8 mg/dl (1.8-2.4) Total Bilirubin 0.7 mg/dl (0.2-1) Direct Bilirubin 0.2 mg/dl (0-0.2) Aspartate Amino Transf (AST/SGOT) 28 U/L (15-37) Alanine Aminotransferase (ALT/SGPT) 17 U/L (12-78) Alkaline Phosphatase 59 U/L (45-117) Troponin I 7.360 ng/ml (0-0.045) Total Protein 6.6 gm/dl (6.4-8.2) Albumin 2.5 gm/dl (3.4-5.0) Random Vancomycin Level 11.2 mcg/ml Assessment & Plan Sequence of HD, vancomycin doses, and vancomycin levels * 03/14 1414: vancomycin 1000 mg IV * 03/15 0517: vancomycin level 11.2 mcg/mL * 03/15 0729: vancomycin 750 mg IV * 03/15 1349: 2hr HD session completed Assessment * 87 yo F on vancomycin for ?GPC bacteremia with 1 of 2 blood cultures from positive * Patient did not complete full HD session today. However, as some vancomycin was still likely eliminated and because subtherapeutic levels in this patient would be very concerning for this indication, will give a small post-HD dose now * OK to wait until tomorrow AM to check level Plan * Vancomycin 500 mg IV x1 now * Random level in AM Pharmacy will continue to follow and will adjust dose/frequency as necessary. Thank you
[2017-03-15] MEDS ORDERED: LIDOCAINE HCL 1% 20 ML VIAL ONE (15:07)
--- NOTE | 2017-03-15 15:13 | [facility] Operative Report ---
Operative Report Operative Date Mar 15, 2017. Pre-Operative Diagnosis Sepsis Post-Operative Diagnosis Same Procedure(s) Performed Removal of permcath, right side Surgeon Josefina Jackspooler Surgeon(s) none Estimated Blood Loss 0 Findings catheter and cuff removed, cultures sent Specimens cult of tip Anesthesia Local Complication(s) None Disposition Surgical ICU Indications This is a 87-year-old female with a right internal jugular vein PermCath in place. She was admitted to the hospital with sepsis. She does have a left upper arm fistula which was being rested due to a hematoma. It appears that she can use the fistula for dialysis at this time. Due to the sepsis we recommend removing the right internal jugular vein PermCath. Patient understands the risks options and benefits and agrees to go ahead with this procedure. Description of Procedure The patient was taken to the angio suite and placed in the supine position. The right side of the neck, chest wall and catheter were prepped and draped in a sterile manner. Local anesthesia was then accomplished. Using sharp and blunt dissection, the cuff of the permcath was freed up from the surrounding fibrous tissue. The permcath and cuff were completely removed. Pressure was then applied and adequate hemostasis was obtained. Tisha was used to help with coagulation. The catheter and cuff showed no incorporation. A sterile dressing was then applied. The patient left the angio suite in good condition and tolerated the procedure well. I attest to the content of the Intraoperative Record and any orders documented therein. Any exceptions are noted below.
[2017-03-15] MEDS ORDERED: VANCOMYCIN INJ 500 MG in SODIUM CHLORIDE 0.9% 100ML 100 ML IV ONE (15:15)
[2017-03-15] MEDS ORDERED: LIDOCAINE HCL 1% 20 ML VIAL INJ ONE (15:16)
--- NOTE | 2017-03-15 15:20 | ECHOCARDIOGRAM REPORT ---
*NOTICE TO RECEIVING LIBERTARIAN AGENCY This information is strictly Confidential and protected under [place] law. [place] law prohibits you from making any further disclosure of this information unless further disclosure is expressly permitted by the written consent of the person to whom it pertains or is authorized by law. A general authorization for the release of medical or other information is not sufficient for this purpose. Hospital accepts no responsibility if the information is made available to any other person, INCLUDING THE PATIENT. Interpretation Summary * Name: ANANTH SIMPSON Study Date: 03/14/2017 04:06 PM BP: 76/40 mmHg * Patient Location: .MSICU\S\E102\S\1 HR: 78 * : 1930 (M/d/yyyy) Gender: Female Height: 66 in * Age: 87 yrs Ethnicity: CA Weight: 170 lb * Ordering Physician: Maikol Kim * Referring Physician: UNKNOWN * Performed By: Vanessa Medrano RCS * * Reason For Study: CHEST PAIN / WALL MOTION COMPARISON * BSA: 1.9 m2 * -- Conclusions -- * 1. Mildly dilated left ventricle with moderately reduced systolic function. EF 35-40%. Akinesis of the mid to distal inferior wall, mid septum, mid anteroseptum. Severe hypokinesis of the base and distal septum, basal konrad septum, and basal inferior wall. Otherwise, global mild hypokinesis, sparing the inferolateral base. Moderate concentric left ventricular hypertrophy. * Moderately dilated right ventricle with mildly reduced systolic function. * 2. The left atrium is moderately dilated. * 3. The right atrium is mildly dilated. * 4. Aortic stenosis appears to be significant visually but transvalvular velocities and gradients suggest only mild stenosis, which may be underestimated due to reduced LV systolic function. * 5. At least mild mitral regurgitation (not fully interrogated). * 6. Pleural effusion. * 7. Mildly elevated estimated right ventricular systolic pressure; 41 mmHg. * 8. Limited 2D echo with color Doppler and spectral Doppler. * 9. Compared to prior study on 01/11/2017, LV systolic function is now moderately reduced with wall motion abnormalities as described. Mitral regurgitation was not fully interrogated on this limited study. Procedure Details * Limited views were obtained. Left Ventricle * Mildly dilated left ventricle with moderately reduced systolic function. EF 35-40%. Akinesis of the mid to distal inferior wall, mid septum, mid anteroseptum. Severe hypokinesis of the base and distal septum, basal konrad septum, and basal inferior wall. Otherwise, global mild hypokinesis, sparing the inferolateral base. Moderate concentric left ventricular hypertrophy. Right Ventricle * Moderately dilated right ventricle with mildly reduced systolic function. Atria * The left atrium is moderately dilated. * The right atrium is mildly dilated. * There is no evidence of atrial septal defect, but resolution does not allow assessment for a patent foramen ovale. Mitral Valve * There is moderate mitral annular calcification. * At least mild mitral regurgitation (not fully interrogated). Tricuspid Valve * The tricuspid valve is not well visualized, but is grossly normal. * There is no tricuspid stenosis. * There is mild tricuspid regurgitation. Aortic Valve * Aortic stenosis appears to be significant visually but transvalvular velocities and gradients suggest only mild stenosis, which may be underestimated due to reduced LV systolic function. * Dimensionless index 0.24. * Trace aortic regurgitation. Pulmonic Valve * The pulmonic valve is not well seen, but is grossly normal. Great Vessels * The aortic root is normal size. Pericardium/Pleural * There is no pericardial effusion. * Pleural effusion. Great Vessels * Top normal IVC size with reduced inspiratory collapse. MMode 2D Measurements and Calculations IVSd 1.4 cm IVSs 1.6 cm LVIDd 5.6 cm LVIDs 4.2 cm LVPWd 1.3 cm LVPWs 1.8 cm IVS/LVPW 1.1 FS 24.4 % EDV(Teich) 154.1 ml ESV(Teich) 80.4 ml EF(Teich) 47.8 % EDV(cubed) 176.3 ml ESV(cubed) 76.3 ml EF(cubed) 56.7 % % IVS thick 17.4 % % LVPW thick 42.9 % LV mass(C)d 321.5 grams LV mass(C)dI 172.3 grams/m\S\2 LV mass(C)s 313.0 grams LV mass(C)sI 167.7 grams/m\S\2 SV(Teich) 73.7 ml SI(Teich) 39.5 ml/m\S\2 SV(cubed) 100.0 ml SI(cubed) 53.6 ml/m\S\2 Ao root diam 3.2 cm Ao root area 8.1 cm\S\2 LA dimension 4.6 cm LA/Ao 1.4 LVOT diam 2.2 cm LVOT area 3.7 cm\S\2 LVAd ap4 38.4 cm\S\2 LVLd ap4 8.9 cm EDV(MOD-sp4) 136.1 ml EDV(sp4-el) 140.3 ml LVAs ap4 29.5 cm\S\2 LVLs ap4 8.3 cm ESV(MOD-sp4) 87.6 ml ESV(sp4-el) 89.0 ml EF(MOD-sp4) 35.6 % EF(sp4-el) 36.6 % LVAd ap2 47.1 cm\S\2 LVLd ap2 9.1 cm EDV(MOD-sp2) 210.5 ml EDV(sp2-el) 205.8 ml LVAs ap2 36.0 cm\S\2 LVLs ap2 8.5 cm ESV(MOD-sp2) 129.4 ml ESV(sp2-el) 129.0 ml EF(MOD-sp2) 38.5 % EF(sp2-el) 37.3 % LVLd %diff 2.0 % EDV(MOD-bp) 170.8 ml LVLs %diff 2.4 % ESV(MOD-bp) 107.2 ml EF(MOD-bp) 37.2 % SV(MOD-sp4) 48.5 ml SI(MOD-sp4) 26.0 ml/m\S\2 SV(MOD-sp2) 81.1 ml SI(MOD-sp2) 43.5 ml/m\S\2 SV(MOD-bp) 63.6 ml SI(MOD-bp) 34.1 ml/m\S\2 SV(sp4-el) 51.3 ml SI(sp4-el) 27.5 ml/m\S\2 SV(sp2-el) 76.8 ml SI(sp2-el) 41.2 ml/m\S\2 Doppler Measurements and Calculations Ao V2 max 281.3 cm/sec Ao max PG 31.7 mmHg Ao max PG (full) 29.8 mmHg Ao V2 mean 193.5 cm/sec Ao mean PG 17.0 mmHg Ao mean PG (full) 16.1 mmHg Ao V2 VTI 59.1 cm ROCIO(I,A) 0.93 cm\S\2 ROCIO(I,D) 0.93 cm\S\2 ROCIO(V,A) 0.90 cm\S\2 ROCIO(V,D) 0.90 cm\S\2 LV V1 max PG 1.9 mmHg LV V1 mean PG 0.90 mmHg LV V1 max 68.9 cm/sec LV V1 mean 43.2 cm/sec LV V1 VTI 15.0 cm SV(Ao) 477.0 ml SI(Ao) 255.5 ml/m\S\2 SV(LVOT) 55.2 ml SI(LVOT) 29.5 ml/m\S\2 PA V2 max 98.9 cm/sec PA max PG 3.9 mmHg PI max david 236.6 cm/sec PI max PG 22.4 mmHg PI dec slope 195.4 cm/sec\S\2 PI P1/2t 354.7 msec TR max david 284.8 cm/sec RVSP(TR) 40.5 mmHg RAP systole 8.0 mmHg
[2017-03-15] MEDS ORDERED: ARISTA ABSORBABLE HEMOSTAT 3GM TOP ONE (15:34)
[2017-03-15] MEDS: WARFARIN SOD 2 MG TAB PO SCH (15:54)
[2017-03-15] MEDS: ROSUVASTATIN CALCIUM 10 MG TAB PO SCH (19:58)
[2017-03-15] MEDS: CLOPIDOGREL BISULFATE 75 MG TAB PO SCH (19:58)
[2017-03-15] MEDS: ACETAMINOPHEN 325 MG TAB PO PRN (22:58)
[2017-03-16] VITALS (24 sets, daily range): BP systolic 106–138; BP diastolic 54–75; PULSE 58–68; TEMP 36.2–36.7; O2SAT 92–100
[2017-03-16 05:30] LABS: BASO % 0.2 %; BASO ABS # 0.02 K/uL (0-0.2); COMPLETE YES; EOS % 0.7 %; HEMATOCRIT 34.7 % (37-47); IG% 0.1 %; LYMPH % 12.5 %; LYMPH ABS # 1.17 K/uL (1.2-3.4); MEAN CELL VOLUME 100.3 fL (80-100); MEAN CORPUSCULAR HEMOGLOBIN 31.2 pg (25-34); MEAN CORPUSCULAR HGB CONC 31.1 g/dl (32-36); MEAN PLATELET VOLUME 10.5 fL (7.4-10.4); MONO % 10.8 %; NEUT % 75.7 %; PLATELET COUNT 124 K/uL (130-400); RED BLOOD COUNT 3.46 M/uL (4.2-5.4); WHITE BLOOD COUNT 9.35 K/uL (4.8-10.8)
[2017-03-16 05:40] LABS: INR 2.9 (0.9-1.1); PROTHROMBIN TIME (PATIENT) 32.6 SECONDS (9.0-12.0)
[2017-03-16 06:14] LABS: BUN/CREATININE RATIO 9.3 (10-20); CREATININE 4.3 mg/dl (0.60-1.20); MAGNESIUM 2.8 mg/dl (1.8-2.4); PHOSPHORUS 4.8 mg/dl (2.5-4.9); POTASSIUM 4.4 mmol/L (3.5-5.1)
[2017-03-16] MEDS: SEVELAMER HYDROCH 800 MG TAB PO SCH ×3 (07:57→19:59)
[2017-03-16] MEDS: AMIODARONE 200 MG TAB PO SCH (07:57)
[2017-03-16] MEDS: MULTIVITAMIN TAB PO SCH (07:58)
[2017-03-16] MEDS: PANTOprazole SOD 40 MG TAB PO SCH (07:58)
[2017-03-16] MEDS: DOCUSATE SODIUM/SENNA 50/8.6MG TAB PO SCH ×2 (07:58→19:58)
[2017-03-16] MEDS: ALLOPURINOL 100 MG TAB PO SCH (07:59)
[2017-03-16] MEDS ORDERED: EPOETIN ALFA 10,000 UNITS/ML VIAL IV. ONE (09:15)
--- NOTE | 2017-03-16 09:34 | Progress Note ---
Subjective Date of Service: Mar 16, 2017. Subjective Pt evaluation today including: conversation w/ patient, conversation w/ family , physical exam, chart review, lab review pt seen in follow up, transferred from ICU. family at bedside. no f/c. had perma cath removed yesterday, evidence of infection. cath tip culture pending. repeat blood cultures pending. Initial culture grew gbs. remains on vanco, dosed by level due to hd. wbc improved and is now nml. Echo done yesterday, no veg. pt feeling much better today. no f/c. no more cp, min tenderness at cath site but no bleeding/drainage. for hd today, going to attempt to use AVF. All remaining ros reviewed and are negative. Problem List Medical Problems: (1) CHF (congestive heart failure) Status: Acute (2) CHF (congestive heart failure) Status: Acute (3) Chronic kidney insufficiency Status: Acute (4) Chronic renal failure Status: Acute (5) Congestive heart failure Status: Acute (6) E16.2 Status: Acute (7) Elevated INR Status: Acute (8) Elevated troponin Status: Acute (9) GI bleed Status: Acute (10) Hypotension Status: Acute (11) Left leg DVT Status: Acute (12) Pancytopenia Status: Acute (13) Pneumonia Status: Acute (14) Pulmonary edema Status: Acute (15) Respiratory distress Status: Acute (16) Sepsis Status: Acute (17) ST segment changes on electrocardiogram Status: Acute (18) Substernal precordial chest pain Status: Acute (19) Substernal precordial chest pain Status: Acute (20) Symptomatic anemia Status: Acute (21) Weakness Status: Acute Objective Vital Signs Date Time Temp Pulse Resp B/P (MAP) Pulse Ox O2 Delivery O2 Flow Rate FiO2 03/16/17 07:42 36.7 60 20 118/63 (81) 92 Room Air 03/16/17 04:05 36.3 61 18 137/73 (94) 100 Nasal Cannula 2.0 03/16/17 04:00 Nasal Cannula 2.0 03/15/17 23:59 Nasal Cannula 2.0 03/15/17 23:42 36.7 72 18 122/49 (73) 96 Nasal Cannula 03/15/17 21:09 36.8 66 18 95/57 (70) 95 Nasal Cannula 2.0 03/15/17 20:00 Nasal Cannula 2.0 03/15/17 19:01 66 18 94/42 (59) 95 Nasal Cannula 2.0 03/15/17 18:01 64 15 107/45 (65) 94 03/15/17 17:31 66 17 102/45 (64) 95 03/15/17 17:00 67 16 105/52 (69) 100 03/15/17 16:46 69 15 118/41 (66) 92 03/15/17 16:32 68 21 83/59 (67) 98 03/15/17 16:15 64 20 110/47 (68) 97 03/15/17 16:00 36.8 65 20 121/49 (73) 97 Nasal Cannula 2.0 03/15/17 16:00 Nasal Cannula 2.0 03/15/17 15:36 70 20 116/51 99 Nasal Cannula 4.0 03/15/17 15:32 69 18 109/60 100 Nasal Cannula 4.0 03/15/17 15:27 69 18 107/52 100 Nasal Cannula 4.0 03/15/17 15:22 71 18 115/58 100 Nasal Cannula 4.0 03/15/17 15:17 71 18 106/84 99 Nasal Cannula 4.0 03/15/17 15:13 71 18 118/47 99 Nasal Cannula 4.0 03/15/17 14:10 36.5 70 128/57 (80) 03/15/17 13:47 37.0 72 20 138/78 (98) 99 Nasal Cannula 2.0 03/15/17 13:45 72 139/78 03/15/17 13:30 72 131/62 03/15/17 13:15 73 134/57 03/15/17 13:00 72 101/52 03/15/17 12:45 66 115/55 03/15/17 12:30 64 105/53 03/15/17 12:15 65 113/51 03/15/17 12:08 36.6 63 100/55 (70) 03/15/17 12:00 63 102/55 03/15/17 11:15 Nasal Cannula 2.0 03/15/17 11:15 37.0 64 17 100/65 (77) 98 Nasal Cannula 2.0 Physical Exam General Appearance: WD/WN, no apparent distress Eyes: normal inspection, EOMI Neck: supple Respiratory/Chest: chest non-tender, lungs clear, normal breath sounds Cardiovascular: regular rate, rhythm, no edema Abdomen: non tender, soft Extremities: non-tender, no pedal edema Neurologic/Psychiatric: alert, oriented x 3 Skin: normal color, no rash Comments: right chest wall dressing c/d/i, no surrounding erythema, edema, induration, warmth, min tenderness Laboratory Results Item Value Date Time Blood Culture - Preliminary Resulted 03/14/17 1125 Blood Group B Beta Strep Blood Culture - Preliminary Resulted 03/14/17 1131 Blood NO GROWTH TO DATE. Last 24 Hours Test 03/15/17 10:47 03/15/17 15:57 03/16/17 05:13 03/16/17 08:26 Bedside Glucose 194 mg/dl 106 mg/dl White Blood Count 9.35 K/uL Red Blood Count 3.46 M/uL Hemoglobin 10.8 g/dL Hematocrit 34.7 % Mean Corpuscular Volume 100.3 fL Mean Corpuscular Hemoglobin 31.2 pg Mean Corpuscular Hemoglobin Concent 31.1 g/dl Platelet Count 124 K/uL Mean Platelet Volume 10.5 fL Neutrophils (%) (Auto) 75.7 % Lymphocytes (%) (Auto) 12.5 % Monocytes (%) (Auto) 10.8 % Eosinophils (%) (Auto) 0.7 % Basophils (%) (Auto) 0.2 % Neutrophils # (Auto) 7.07 K/uL Lymphocytes # (Auto) 1.17 K/uL Monocytes # (Auto) 1.01 K/uL Eosinophils # (Auto) 0.07 K/uL Basophils # (Auto) 0.02 K/uL RDW Standard Deviation 62.4 fL RDW Coefficient of Variation 17.2 % Immature Granulocyte % (Auto) 0.1 % Immature Granulocyte # (Auto) 0.01 K/uL Prothrombin Time 32.6 SECONDS Prothromb Time International Ratio 2.9 Sodium Level 138 mmol/L Potassium Level 4.4 mmol/L Chloride Level 102 mmol/L Carbon Dioxide Level 27 mmol/L Anion Gap 9.0 mmol/L Blood Urea Nitrogen 40 mg/dl Creatinine 4.30 mg/dl Est Creatinine Clear Calc Drug Dose 9.9 ml/min Estimated GFR () 10.1 Estimated GFR (Non- 8.7 BUN/Creatinine Ratio 9.3 Random Glucose 98 mg/dl Calcium Level 9.0 mg/dl Phosphorus Level 4.8 mg/dl Magnesium Level 2.8 mg/dl Total Bilirubin 0.5 mg/dl Direct Bilirubin 0.2 mg/dl Aspartate Amino Transf (AST/SGOT) 26 U/L Alanine Aminotransferase (ALT/SGPT) 19 U/L Alkaline Phosphatase 64 U/L Total Protein 6.5 gm/dl Albumin 2.5 gm/dl Random Vancomycin Level 18.9 mcg/ml Troponin I 4.200 ng/ml Assessment and Plan (1) Sepsis due to infected intravenous catheter Assessment & Plan: cath now out, cultures with gbs, sensitivities pending however with hd would prefer to maintain pt on IV vanco, dosing can be given at end of hd treatment to avoid additional line placement for administration of IV abx at home. would give 500mg vanco post hd, will need 2 weeks from first negative culture. echo negative for veg. (2) Beta-hemolytic group B streptococcal sepsis (3) Leukocytosis
[2017-03-16] MEDS: EPOETIN ALFA INJ 7,000 UNITS in SYRINGE 0 ML IV. SCH ×2 (09:45→18:07)
--- NOTE | 2017-03-16 09:45 | Nephrology Progress Note ---
Nephrology Progress Note Date of Service Mar 16, 2017. Chief Complaint Follow up evaluation of this patient w/ ESRD admitted with hypotension and chest discomfort Subjective Ms. Rahman was seen & examined in her hospital room this morning. She completed 2 hours of HD and had her tunneled HD catheter removed yesterday. This morning she denies fever. Her chest discomfort and dyspnea have resolved. Review of Systems Constitutional: No fever Cardiovascular: No chest pain Respiratory: No dyspnea at rest Abdomen: No pain, No nausea, No vomiting Extremities: No leg edema A complete review of systems was performed. Pertinent positives are noted above. All other systems are negative. Vital Signs Last 8 Hrs Date Time Temp Pulse Resp B/P (MAP) Pulse Ox O2 Delivery O2 Flow Rate FiO2 03/16/17 07:42 36.7 60 20 118/63 (81) 92 Room Air 03/16/17 04:05 36.3 61 18 137/73 (94) 100 Nasal Cannula 2.0 03/16/17 04:00 Nasal Cannula 2.0 Last Recorded Weight Weight (Kilograms): 74.800 Physical Exam General Appearance: no apparent distress Head: normocephalic, atraumatic Eyes: PERRL, EOMI Neck: no adenopathy, + pertinent finding (R IJ site w/ clean dry dressing in place) Respiratory/Chest: lungs clear Cardiovascular: regular rate, rhythm Abdomen/GI: normal bowel sounds, non tender, soft Extremities/Musculoskelatal: no pedal edema, + pertinent finding (L upper arm AVF + bruit. Vascular surgeon has marked AVF with needle placement sites) Neurologic/Psych: alert, oriented x 3 Family History Asthma Cancer SISTER (Breast cancer) Chronic kidney disease MOTHER Diabetes mellitus FATHER Heart disease FATHER Hypertension FATHER MOTHER Kidney disease Kidney stones Stroke Noncontributory Social History Smoking Status: Never smoker Drug Use: none Marital Status: Housing Status: lives with family Occupation: retired . Retired. Never a smoker. Laboratory Results Past 24 Hours 03/16/17 05:13 Red Blood Count 3.46, Mean Corpuscular Volume 100.3, Mean Corpuscular Hemoglobin 31.2, Mean Corpuscular Hemoglobin Concent 31.1, Mean Platelet Volume 10.5, Neutrophils (%) (Auto) 75.7, Lymphocytes (%) (Auto) 12.5, Monocytes (%) ( Auto) 10.8, Eosinophils (%) (Auto) 0.7, Basophils (%) (Auto) 0.2, Neutrophils # (Auto) 7.07, Lymphocytes # (Auto) 1.17, Monocytes # (Auto) 1.01, Eosinophils # ( Auto) 0.07, Basophils # (Auto) 0.02 03/16/17 05:13 Test 03/15/17 10:47 03/15/17 15:57 03/16/17 05:13 03/16/17 08:26 Bedside Glucose 194 mg/dl (70-90) 106 mg/dl (70-90) White Blood Count 9.35 K/uL (4.8-10.8) Red Blood Count 3.46 M/uL (4.2-5.4) Hemoglobin 10.8 g/dL (12.0-16.0) Hematocrit 34.7 % (37-47) Mean Corpuscular Volume 100.3 fL (80-100) Mean Corpuscular Hemoglobin 31.2 pg (25-34) Mean Corpuscular Hemoglobin Concent 31.1 g/dl (32-36) Platelet Count 124 K/uL (130-400) Mean Platelet Volume 10.5 fL (7.4-10.4) Neutrophils (%) (Auto) 75.7 % Lymphocytes (%) (Auto) 12.5 % Monocytes (%) (Auto) 10.8 % Eosinophils (%) (Auto) 0.7 % Basophils (%) (Auto) 0.2 % Neutrophils # (Auto) 7.07 K/uL (1.4-6.5) Lymphocytes # (Auto) 1.17 K/uL (1.2-3.4) Monocytes # (Auto) 1.01 K/uL (0.11-0.59) Eosinophils # (Auto) 0.07 K/uL (0-0.5) Basophils # (Auto) 0.02 K/uL (0-0.2) RDW Standard Deviation 62.4 fL (36.4-46.3) RDW Coefficient of Variation 17.2 % (11.5-14.5) Immature Granulocyte % (Auto) 0.1 % Immature Granulocyte # (Auto) 0.01 K/uL (0.00-0.02) Prothrombin Time 32.6 SECONDS (9.0-12.0) Prothromb Time International Ratio 2.9 (0.9-1.1) Anion Gap 9.0 mmol/L (3-11) Est Creatinine Clear Calc Drug Dose 9.9 ml/min Estimated GFR () 10.1 Estimated GFR (Non- 8.7 BUN/Creatinine Ratio 9.3 (10-20) Calcium Level 9.0 mg/dl (8.5-10.1) Phosphorus Level 4.8 mg/dl (2.5-4.9) Magnesium Level 2.8 mg/dl (1.8-2.4) Total Bilirubin 0.5 mg/dl (0.2-1) Direct Bilirubin 0.2 mg/dl (0-0.2) Aspartate Amino Transf (AST/SGOT) 26 U/L (15-37) Alanine Aminotransferase (ALT/SGPT) 19 U/L (12-78) Alkaline Phosphatase 64 U/L (45-117) Total Protein 6.5 gm/dl (6.4-8.2) Albumin 2.5 gm/dl (3.4-5.0) Random Vancomycin Level 18.9 mcg/ml Troponin I 4.200 ng/ml (0-0.045) Allergies Coded Allergies: No Known Allergies (Unverified , 03/14/17) Medications Current Inpatient Medications Medications (Trade) Dose Ordered Sig/Janeth Route Start Time Stop Time Status Last Admin Dose Admin Allopurinol (Zyloprim Tab) 50 mg QAM PO 03/15/17 09:00 04/14/17 08:59 03/16/17 07:59 50 MG Amiodarone HCl (Cordarone Tab) 200 mg QAM PO 03/15/17 09:00 04/14/17 08:59 03/16/17 07:57 200 MG Clopidogrel Bisulfate (plAVix TAB) 75 mg HS PO 03/14/17 21:00 04/13/17 20:59 03/15/17 19:58 75 MG Albuterol/ Ipratropium (Duoneb) 3 ml Q6R PRN INH 03/14/17 11:45 04/13/17 11:44 Multivitamins (Multivitamin Tab) 2 tab QAM PO 03/15/17 09:00 04/14/17 08:59 03/16/17 07:58 2 TAB Pantoprazole Sodium (Protonix Tab) 40 mg QAM PO 03/15/17 09:00 04/14/17 08:59 03/16/17 07:58 40 MG Rosuvastatin Calcium (Crestor Tab) 10 mg HS PO 03/14/17 21:00 04/13/17 20:59 03/15/17 19:58 10 MG Senna/Docusate Sodium (Senokot S Tab) 1 tab BID PO 03/14/17 21:00 04/13/17 20:59 03/16/17 07:58 1 TAB Warfarin Sodium (Coumadin Tab) 2 mg DAILY@1600 PO 03/14/17 16:00 04/13/17 15:59 03/14/17 16:53 2 MG Sevelamer HCl (Renagel Tab) 800 mg TIDM PO 03/14/17 16:30 04/13/17 16:29 03/16/17 07:57 800 MG Acetaminophen (Tylenol Tab) 650 mg Q4H PRN PO 03/14/17 11:45 04/13/17 11:44 03/15/17 22:58 650 MG Al Hydrox/Mg Hydrox/Simethicone (Maalox Max Susp) 15 ml Q4H PRN PO 03/14/17 11:45 04/13/17 11:44 Magnesium Hydroxide (Milk Of Magnesia Susp) 30 ml Q12H PRN PO 03/14/17 11:45 04/13/17 11:44 Zolpidem Tartrate (Ambien Tab) 5 mg HSZ PRN PO 03/14/17 11:45 04/13/17 11:44 Ondansetron HCl (Zofran Inj) 4 mg Q6H PRN IV 03/14/17 11:45 04/13/17 11:44 Nitroglycerin (Nitrostat Tab) 0.4 mg UD PRN SL 03/14/17 11:45 04/13/17 11:44 Morphine Sulfate (MoRPHine SULFATE INJ) 2 mg Q30M PRN IV 03/14/17 11:45 03/28/17 11:44 03/14/17 21:02 2 MG Polyethylene (Miralax Powder Packet) 17 gm DAILY PRN PO 03/14/17 11:45 04/13/17 11:44 03/14/17 21:15 17 GM Lorazepam (Ativan Inj) 0.5 mg Q4H PRN IV 03/14/17 12:15 04/13/17 12:14 Ioversol (Optiray 320) 100 ml UD PRN IV 03/14/17 12:30 03/18/17 12:29 Vancomycin HCl (Consult) 1 ea UD PRN N/A 03/15/17 06:30 04/14/17 06:29 Epoetin Joshua 7000 units/Syringe 0.35 ml @ 1 mls/min TODAY@0945 IV. 03/16/17 09:45 03/16/17 12:00 Impression (1) 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 (2) Leukocytosis (3) Hypotension Patient admitted for evaluation of chest discomfort in the setting of hypotension and leukocytosis. CXR shows small L pleural effusion and atelectasis. Chest CT was negative for dissection. Troponin is mildly elevated due to ESRD. ECG was negative for myocardial ischemia. Blood pressure has improved following IV fluid bolus. Patient is symptomatically improved. Need to remain vigilant for possible infection from pulmonary source or HD catheter. AVF hematoma is not erythematous or fluctuant. Recommendations END STAGE RENAL DISEASE: -- HD today for correction of azotemia. Will dialyze for 3 hours and use 3 K 2.5 Ca bath and limit UF to 1 L. Will hold Heparin since patient is on Warfarin therapy ID: -- One of two blood cultures are positive for group B beta strep. Awaiting sensitivities and results of second culture and catheter tip -- Continue empiric Vancomycin & Zosyn therapy CHEST PAIN: -- CXR films reviewed and chest CT report read. No evidence of dissection -- Troponin is trending down now that bp has stabilized.
--- NOTE | 2017-03-16 09:57 | Pharmacy Progress Note ---
Pharmacy Abx Dose Progress Nt Date of Service Mar 16, 2017. Pharmacy Dosing Scope The patient is currently receiving the following antimicrobial agents per Pharmacy consult: Vancomycin Objective Height (Feet): 5 Height (Inches): 6.00 Weight (Kilograms): 74.800 Vital Signs (Past 12Hrs) Vital Signs Past 12 Hours Date Time Temp Pulse Resp B/P (MAP) Pulse Ox O2 Delivery O2 Flow Rate FiO2 03/16/17 07:42 36.7 60 20 118/63 (81) 92 Room Air 03/16/17 04:05 36.3 61 18 137/73 (94) 100 Nasal Cannula 2.0 03/16/17 04:00 Nasal Cannula 2.0 03/15/17 23:59 Nasal Cannula 2.0 03/15/17 23:42 36.7 72 18 122/49 (73) 96 Nasal Cannula Lab Results (24Hrs) Laboratory Tests (24 Hours) Test 03/16/17 05:13 White Blood Count 9.35 K/uL (4.8-10.8) Red Blood Count 3.46 M/uL (4.2-5.4) L Hemoglobin 10.8 g/dL (12.0-16.0) L Hematocrit 34.7 % (37-47) L Mean Corpuscular Volume 100.3 fL (80-100) H Mean Corpuscular Hemoglobin 31.2 pg (25-34) Mean Corpuscular Hemoglobin Concent 31.1 g/dl (32-36) L Platelet Count 124 K/uL (130-400) L Mean Platelet Volume 10.5 fL (7.4-10.4) H Neutrophils (%) (Auto) 75.7 % Lymphocytes (%) (Auto) 12.5 % Monocytes (%) (Auto) 10.8 % Eosinophils (%) (Auto) 0.7 % Basophils (%) (Auto) 0.2 % Neutrophils # (Auto) 7.07 K/uL (1.4-6.5) H Lymphocytes # (Auto) 1.17 K/uL (1.2-3.4) L Monocytes # (Auto) 1.01 K/uL (0.11-0.59) H Eosinophils # (Auto) 0.07 K/uL (0-0.5) Basophils # (Auto) 0.02 K/uL (0-0.2) Micro Results Date/Time Source Procedure Growth Status 03/15/17 20:53 Blood Blood Culture Pending Received 03/15/17 20:47 Blood Blood Culture Pending Received 03/14/17 11:31 Blood Blood Culture - Preliminary NO GROWTH TO DATE. Resulted 03/14/17 11:25 Blood Blood Culture - Preliminary Group B Beta Strep Resulted 03/14/17 00:00 Nasal MRSA DNA Surveillance Screen - Final Specimen Negative for MRSA by DNA Probe Complete 03/15/17 15:20 Catheter Tip Perm. Catheter Catheter Tip Culture Pending Received Assessment & Plan Pt is a 87yo F being treated for 1/2 positive blood cultures growing group b beta strep with sensitivities to follow. Perm catheter is thought to be a source of infxn, it was removed and cultured with c's pending. F/u BC are also pending. Vanco random lvl was therapeutic at 18.9mcg/mL this AM. She generally receives HD on MWF but received HD yesterday for 2 hours. I spoke with Dr. Reddy today and he will have the pt undergo another session of HD today. I will order Vanco 750mg (10mg/kg) x1 post HD today. She created 30cc and 50cc's of urine on 03/14 & 03/15, respectively. She' s likely not eliminating much Vancomycin. I have ordered a random lvl to be drawn on 03/19 prior to her HD session. Goal trough for bacteremia 15-20mcg/mL. If she starts creating more urine over the weekend an additional dose of Vanco may be necessary. Pharmacy will continue to follow and will adjust dose/frequency as necessary. Thank you.
--- NOTE | 2017-03-16 12:25 | Cardiology Follow-Up ---
Cardiology Follow-Up Date of Service Mar 16, 2017. Cardiology Follow-Up Subjective The patient is resting comfortably in bed without complaints of chest pain or dyspnea. She will undergo hemodialysis again today. Objective Blood pressure is 115/60 with a regular pulse of 80. Respiratory rate is 20. Patient is afebrile at 36.8 degrees Celsius. Saturation is 93 percent on room air. Neck is supple with delayed and prolonged carotid upstrokes. Quite transmitted murmur noted bilaterally. Jugular venous pressure is 10 centimeters of water at 45 degrees. Cardiovascular exam reveals a regular rhythm with a 2/6 crescendo decrescendo systolic murmur heard loudest at the base. Lungs note a few crackles at the bases. Abdomen is obese without bruits. Extremities note a bruit over the left upper extremity fistula. Trace pretibial edema is noted bilaterally. Data CBC noted hemoglobin of 10.8, crit 34.7, white count 9.3, platelet count 124 1000. Electrolytes noted sodium of 138, potassium 4.4, chloride 102, bicarb 27, BUN 40, creatinine 4.3, and glucose of 98. Troponin I levels down to 4.2 from a high value of 7.36. INR is therapeutic at 2.9. Echocardiogram noted moderate left renal dysfunction with ejection fraction 35-40 percent with an inferior wall motion abnormality. There is evidence of significant aortic stenosis. Impression and plan 1. Chest pain syndrome-presumed secondary to her pneumonia, however, she now demonstrates left ventricular dysfunction with an inferior wall motion abnormality. Will continue medical management. 2. Moderate left ventricular dysfunction-ejection fraction of 35-40 percent with an inferior wall motion abnormality. 3. Coronary artery disease-status post CABG x4 in 1996. She has known occluded SVG to a diagonal branch at the time of her catheterization in 2006. She had a PCI performed to the occluded saphenous vein graft to her RCA at that time. She developed a large hematoma requiring surgical intervention, and for that reason , the patient refuses further cardiac catheterizations. 4. Moderate aortic stenosis 5. Mild mitral regurgitation 6. Left upper extremity DVT-January 2015 7. Hypertension 8. Hypercholesterolemia 9. History of diastolic congestive heart failure-January 2017 10. ESRD 11. Diabetes mellitus
--- NOTE | 2017-03-16 13:00 | Progress Note ---
Progress Note Date of Service Mar 16, 2017. Progress Note Patient could not be run through her fistula. Will need permcath today. I have discussed the risks options and benefits of the procedure with the patient. The patient understands the risks options and benefits and agrees to the procedure. I have examined the patient, reviewed the History & Physical and in the interval since the performance of the History & Physical I have noted the following changes of clinical significance: No changes noted
--- NOTE | 2017-03-16 13:00 | Procedure Note ---
Pre-Mod Sedation Assessment General Date of Moderate Sedation: Mar 16, 2017. Vital Signs: Vital Signs Past 12 Hours Date Time Temp Pulse Resp B/P (MAP) Pulse Ox O2 Delivery O2 Flow Rate FiO2 03/16/17 11:52 36.3 66 20 114/69 (84) 93 Room Air 03/16/17 08:30 Nasal Cannula 2.0 03/16/17 07:42 36.7 60 20 118/63 (81) 92 Room Air 03/16/17 04:05 36.3 61 18 137/73 (94) 100 Nasal Cannula 2.0 03/16/17 04:00 Nasal Cannula 2.0 Review Cardiovascular: regular rate, rhythm Abdomen: normal bowel sounds, non tender, soft Lungs: lungs clear Pre-Sedation Airway Assessment Oral Cavity: Dentures, WNL Short Thick Neck: No Hx of Sleep Apnea: No Smoking Status: Former Smoker Mallampati Classification: Class I ASA Classification: Class III Notes The planned sedation has been discussed with the patient and consent obtained. I have identified the patient, determined the appropriateness of sedation and have assessed the patient immediately prior to the procedure. All medicine(s) and interventions are by my order.
[2017-03-16] MEDS ORDERED: FENTANYL CITRATE INJ 50 MCG/1 ML 2 ML VIAL ONE (13:16)
[2017-03-16] MEDS ORDERED: MIDAZOLAM HCL 1 MG/ML 2ML VIAL ONE (13:16)
[2017-03-16] MEDS ORDERED: HEPARIN SOD (PORCINE) 5000 UNIT/ML 1 ML VIAL ONE (13:16)
[2017-03-16] MEDS ORDERED: MIDAZOLAM HCL 1 MG/ML 2ML VIAL IV ONE (14:12)
[2017-03-16] MEDS ORDERED: FENTANYL CITRATE INJ 50 MCG/1 ML 2 ML VIAL IV ONE (14:12)
[2017-03-16] MEDS ORDERED: LIDOCAINE HCL 1% 20 ML VIAL SQ ONE (14:12)
--- NOTE | 2017-03-16 14:27 | [facility] Operative Report ---
Operative Report Operative Date Mar 16, 2017. Pre-Operative Diagnosis Malfunctioning Fistula Post-Operative Diagnosis Same Procedure(s) Performed Insertion of Perm Catheter, Left Internal Jugular Approach, Ultrasound Localization of Left Internal Jugular Vein, Fluoroscopy for Positioning, Moderate Sedation from 1358- 1416. Surgeon Dr. Rocha Legal File Clerk Surgeon(s) None Estimated Blood Loss 3 Findings Tip in distal SVC Specimens None Anesthesia Local with sedation Complication(s) None Disposition Indications This is an 87-year-old white female who had a PermCath in place which was removed due to sepsis. She has a left upper arm fistula. There was an attempt today to cannulate the fistula which was unsuccessful. It was recommended to have a left internal jugular vein PermCath placed and rest the fistula in the left arm. She understood the risks options and benefits and agreed to go ahead with this procedure. Description of Procedure Patient was takent to the angio suite and placed in the supine position. The left side of the neck and chest wall were prepped and draped in a sterile manner. Local anesthesia was then administered to the appropriate areas of the neck and chest wall. Ultrasound was then used to locate the left internal jugular vein. The vein compressed easily, had no filing defects, and was patent. The vein was then punctured under direct ultrasound imaging. A guidewire was then passed centrally under fluoroscopic imaging. A stab wound was then made in the anterior chest wall and a 19 cm permcath was passed from the stab wound on the chest wall to the puncture site on the neck. The puncture site was then dilated till the 14Fr peel away sheath was inserted. The permcath was then inserted through the sheath to a central position in the distal superior vena cava. The peel away sheath was then removed. The catheter was then sutured in place using nylon sutures. The puncture was then closed using a 4-0 Vicryl subcuticular suture. Dermabond was used for a dressing on the puncture site. Both ports aspirated and flushed easily and were then packed with heparin. A sterile dressing was applied to the catheter. The patient left the angio suite in good condition and tolerated the procedure well. I attest to the content of the Intraoperative Record and any orders documented therein. Any exceptions are noted below.
--- NOTE | 2017-03-16 15:26 | Progress Note ---
Subjective Date of Service: Mar 16, 2017. Subjective Pt evaluation today including: conversation w/ patient, conversation w/ family , physical exam, chart review, lab review, review of studies, review of inpatient medication list Resting comfortably in bed Not able to do dialysis due to poor access No complaints at this time Problem List Medical Problems: (1) CHF (congestive heart failure) Status: Acute (2) CHF (congestive heart failure) Status: Acute (3) Chronic kidney insufficiency Status: Acute (4) Chronic renal failure Status: Acute (5) Congestive heart failure Status: Acute (6) E16.2 Status: Acute (7) Elevated INR Status: Acute (8) Elevated troponin Status: Acute (9) GI bleed Status: Acute (10) Hypotension Status: Acute (11) Left leg DVT Status: Acute (12) Pancytopenia Status: Acute (13) Pneumonia Status: Acute (14) Pulmonary edema Status: Acute (15) Respiratory distress Status: Acute (16) Sepsis Status: Acute (17) ST segment changes on electrocardiogram Status: Acute (18) Substernal precordial chest pain Status: Acute (19) Substernal precordial chest pain Status: Acute (20) Symptomatic anemia Status: Acute (21) Weakness Status: Acute Review of Systems Constitutional: No fever, No chills, No sweats, No weight loss, No weakness, No fatigue Eyes: No worsening of vision, No eye pain, No redness, No discharge Respiratory: No cough, No sputum, No wheezing, No shortness of breath, No dyspnea on exertion Cardiac: No chest pain, No orthopnea, No PND, No edema Abdomen: No pain, No nausea, No vomiting, No diarrhea, No constipation Musculoskeletal: No joint pain, No muscle pain, No swelling, No calf pain Female : No dysuria, No urinary frequency, No hematuria, No incontinence Neurologic: No memory loss, No paralysis, No weakness, No numbness/tingling Psychiatric: No depression symptoms, No anhedonism, No anxiety, No insomnia Endo: No fatigue, No excessive thirst Skin: No rash, No itch Objective Vital Signs Date Time Temp Pulse Resp B/P (MAP) Pulse Ox O2 Delivery O2 Flow Rate FiO2 03/16/17 14:50 36.2 65 16 129/71 (90) 98 Nasal Cannula 3.5 03/16/17 14:37 63 16 130/56 96 Nasal Cannula 4 03/16/17 14:17 64 14 119/56 99 Nasal Cannula 4 03/16/17 13:34 36.3 66 20 114/69 93 Room Air 2.0 03/16/17 11:52 36.3 66 20 114/69 (84) 93 Room Air 03/16/17 08:30 Nasal Cannula 2.0 03/16/17 07:42 36.7 60 20 118/63 (81) 92 Room Air 03/16/17 04:05 36.3 61 18 137/73 (94) 100 Nasal Cannula 2.0 03/16/17 04:00 Nasal Cannula 2.0 03/15/17 23:59 Nasal Cannula 2.0 03/15/17 23:42 36.7 72 18 122/49 (73) 96 Nasal Cannula 03/15/17 21:09 36.8 66 18 95/57 (70) 95 Nasal Cannula 2.0 03/15/17 20:00 Nasal Cannula 2.0 03/15/17 19:01 66 18 94/42 (59) 95 Nasal Cannula 2.0 03/15/17 18:01 64 15 107/45 (65) 94 03/15/17 17:31 66 17 102/45 (64) 95 03/15/17 17:00 67 16 105/52 (69) 100 03/15/17 16:46 69 15 118/41 (66) 92 03/15/17 16:32 68 21 83/59 (67) 98 03/15/17 16:15 64 20 110/47 (68) 97 03/15/17 16:00 36.8 65 20 121/49 (73) 97 Nasal Cannula 2.0 03/15/17 16:00 Nasal Cannula 2.0 03/15/17 15:36 70 20 116/51 99 Nasal Cannula 4.0 03/15/17 15:32 69 18 109/60 100 Nasal Cannula 4.0 03/15/17 15:27 69 18 107/52 100 Nasal Cannula 4.0 Physical Exam General Appearance: WD/WN, no apparent distress Eyes: normal inspection, PERRL, EOMI ENT: normal ENT inspection, hearing grossly normal, TMs normal, pharynx normal Neck: supple, no adenopathy, thyroid normal, no JVD Respiratory/Chest: chest non-tender, lungs clear, normal breath sounds, no respiratory distress Cardiovascular: regular rate, rhythm, no edema, no gallop, no JVD Abdomen: normal bowel sounds, non tender, soft, no organomegaly Neurologic/Psychiatric: no motor/sensory deficits, alert, normal mood/affect, oriented x 3 Laboratory Results Last 24 Hours Test 03/15/17 15:57 03/16/17 05:13 03/16/17 08:26 Bedside Glucose 106 mg/dl White Blood Count 9.35 K/uL Red Blood Count 3.46 M/uL Hemoglobin 10.8 g/dL Hematocrit 34.7 % Mean Corpuscular Volume 100.3 fL Mean Corpuscular Hemoglobin 31.2 pg Mean Corpuscular Hemoglobin Concent 31.1 g/dl Platelet Count 124 K/uL Mean Platelet Volume 10.5 fL Neutrophils (%) (Auto) 75.7 % Lymphocytes (%) (Auto) 12.5 % Monocytes (%) (Auto) 10.8 % Eosinophils (%) (Auto) 0.7 % Basophils (%) (Auto) 0.2 % Neutrophils # (Auto) 7.07 K/uL Lymphocytes # (Auto) 1.17 K/uL Monocytes # (Auto) 1.01 K/uL Eosinophils # (Auto) 0.07 K/uL Basophils # (Auto) 0.02 K/uL RDW Standard Deviation 62.4 fL RDW Coefficient of Variation 17.2 % Immature Granulocyte % (Auto) 0.1 % Immature Granulocyte # (Auto) 0.01 K/uL Prothrombin Time 32.6 SECONDS Prothromb Time International Ratio 2.9 Sodium Level 138 mmol/L Potassium Level 4.4 mmol/L Chloride Level 102 mmol/L Carbon Dioxide Level 27 mmol/L Anion Gap 9.0 mmol/L Blood Urea Nitrogen 40 mg/dl Creatinine 4.30 mg/dl Est Creatinine Clear Calc Drug Dose 9.9 ml/min Estimated GFR () 10.1 Estimated GFR (Non- 8.7 BUN/Creatinine Ratio 9.3 Random Glucose 98 mg/dl Calcium Level 9.0 mg/dl Phosphorus Level 4.8 mg/dl Magnesium Level 2.8 mg/dl Total Bilirubin 0.5 mg/dl Direct Bilirubin 0.2 mg/dl Aspartate Amino Transf (AST/SGOT) 26 U/L Alanine Aminotransferase (ALT/SGPT) 19 U/L Alkaline Phosphatase 64 U/L Total Protein 6.5 gm/dl Albumin 2.5 gm/dl Random Vancomycin Level 18.9 mcg/ml Troponin I 4.200 ng/ml Assessment and Plan 87 y/o F ESRD, CAD, DVT - on Coumadin, DM2, PAF. Pt presents with moderate to severe central CP, radiating to her L back and accompanied by SOB and diaphoresis. Onset of symptoms occurred at 5am waking her from sleep. She has a chronic mild trop elevation. She was admitted with similar symptoms 01/17 and declined a cardiac cath at that time. Her BP is low at the time of admission despite receiving 500 CC of NS in the ER. Initial labs are notable for leukocytosis. She denies a productive cough, recorded fevers, nausea/ vomiting or diarrhea. She had a few episodes of sweats the prior evening. CAD, Persistent CP - SOB, radiation to back - RESOLVED, she has had a previous [place] and states she did not have CP symptoms at the time. Trop is approximately at baseline and EKG does not show any overt changes. CT dissection study unremarkable. Pt refusing cardiac cath at this time. Appreciate cardiology evaluation. Cont stain and plavix Sepsis likely from staph bacteremia/?PNA - Pt was hypotensive on admission and admitted to ICU. ID consulted. Continue zosyn and vancomycin at this time. Pt has nonproductive cough. No fevers and hypotension resolved. Leukocytosis 24- ->18-->9. 1 of 2 BC pos gor group B strep, repeat blood cx pending ESRD - Nephrology consulted - Currently electrolytes acceptable, HD unalbe to be completed due to poor access PAF - Currently in sinus rhythm, rate controlled, cont amiodarone 200 mg PO q AM and coumadin 2 mg PO daily, appreciate cardiology recs GERD - history of GI bleed - cont PPI DVT ppx with coumadin Pt is DNR now
[2017-03-16] MEDS ORDERED: VANCOMYCIN INJ 750 MG in SODIUM CHLORIDE 0.9% 250ML 250 ML IV ONE (18:00)
[2017-03-16] MEDS: POLYETHYLENE (MIRALAX) 17 GM PACK PO PRN (19:57)
[2017-03-16] MEDS: WARFARIN SOD 2 MG TAB PO SCH (19:58)
[2017-03-16] MEDS: ROSUVASTATIN CALCIUM 10 MG TAB PO SCH (19:58)
[2017-03-16] MEDS: CLOPIDOGREL BISULFATE 75 MG TAB PO SCH (19:58)
[2017-03-16] MEDS: ACETAMINOPHEN 325 MG TAB PO PRN (22:14)
[2017-03-17 03:50] VITALS: BP 115/63; PULSE 62; TEMP 36.6; O2SAT 97
[2017-03-17] MEDS: ACETAMINOPHEN 325 MG TAB PO PRN (04:17)
[2017-03-17 06:53] LABS: BASO % 0.5 %; BASO ABS # 0.03 K/uL (0-0.2); COMPLETE YES; EOS % 1.2 %; HEMATOCRIT 33.4 % (37-47); IG% 0.3 %; LYMPH % 14.7 %; LYMPH ABS # 0.97 K/uL (1.2-3.4); MEAN CELL VOLUME 100.3 fL (80-100); MEAN CORPUSCULAR HEMOGLOBIN 30.9 pg (25-34); MEAN CORPUSCULAR HGB CONC 30.8 g/dl (32-36); MEAN PLATELET VOLUME 10.8 fL (7.4-10.4); MONO % 11.7 %; NEUT % 71.6 %; PLATELET COUNT 130 K/uL (130-400); RED BLOOD COUNT 3.33 M/uL (4.2-5.4); WHITE BLOOD COUNT 6.59 K/uL (4.8-10.8)
[2017-03-17 07:08] LABS: INR 2.8 (0.9-1.1)
[2017-03-17 07:20] VITALS: BP 133/71; PULSE 62; TEMP 36.5; O2SAT 99
[2017-03-17 07:25] LABS: BUN/CREATININE RATIO 6.5 (10-20); CALCIUM 8.8 mg/dl (8.5-10.1); CREATININE 3.7 mg/dl (0.60-1.20); MAGNESIUM 2.4 mg/dl (1.8-2.4); PHOSPHORUS 3.7 mg/dl (2.5-4.9); POTASSIUM 4.1 mmol/L (3.5-5.1)
[2017-03-17] MEDS: AMIODARONE 200 MG TAB PO SCH (08:45)
[2017-03-17] MEDS: MULTIVITAMIN TAB PO SCH (08:45)
[2017-03-17] MEDS: SEVELAMER HYDROCH 800 MG TAB PO SCH ×4 (08:45→16:50)
[2017-03-17] MEDS: ALLOPURINOL 100 MG TAB PO SCH (08:46)
[2017-03-17] MEDS: PANTOprazole SOD 40 MG TAB PO SCH (08:46)
[2017-03-17] MEDS: DOCUSATE SODIUM/SENNA 50/8.6MG TAB PO SCH ×2 (08:46→21:29)
--- NOTE | 2017-03-17 09:05 | Nephrology Progress Note ---
Nephrology Progress Note Date of Service Mar 17, 2017. Chief Complaint Follow up evaluation of this patient w/ ESRD admitted with hypotension and chest discomfort Subjective Ms. Rahman was seen & examined in her hospital room this morning. AVF remains functional but could not be used for HD yesterday due to hematoma. Patient had new L IJ THC placed and dialyzed without complication. She reports that her dyspnea has improved. She currently denies fever or angina. Ms. Rahman is anxious to begin physical therapy for strengthening. Review of Systems Constitutional: No fever Cardiovascular: No chest pain Respiratory: No dyspnea at rest Abdomen: No pain, No nausea, No vomiting Extremities: No leg edema A complete review of systems was performed. Pertinent positives are noted above. All other systems are negative. Vital Signs Last 8 Hrs Date Time Temp Pulse Resp B/P (MAP) Pulse Ox O2 Delivery O2 Flow Rate FiO2 03/17/17 07:20 36.5 62 18 133/71 (91) 99 3.0 03/17/17 04:00 Nasal Cannula 2.0 03/17/17 03:50 36.6 62 22 115/63 (80) 97 Nasal Cannula 3.0 Last Recorded Weight Weight (Kilograms): 74.300 Physical Exam General Appearance: no apparent distress Head: normocephalic, atraumatic Eyes: PERRL, EOMI Neck: no adenopathy Respiratory/Chest: lungs clear Cardiovascular: regular rate, rhythm Abdomen/GI: normal bowel sounds, non tender, soft Extremities/Musculoskelatal: no calf tenderness, no pedal edema Neurologic/Psych: alert, oriented x 3 Family History Asthma Cancer SISTER (Breast cancer) Chronic kidney disease MOTHER Diabetes mellitus FATHER Heart disease FATHER Hypertension FATHER MOTHER Kidney disease Kidney stones Stroke Noncontributory Social History Smoking Status: Never smoker Drug Use: none Marital Status: Housing Status: lives with family Occupation: retired . Retired. Never a smoker. Laboratory Results Past 24 Hours 03/17/17 06:12 Red Blood Count 3.33, Mean Corpuscular Volume 100.3, Mean Corpuscular Hemoglobin 30.9, Mean Corpuscular Hemoglobin Concent 30.8, Mean Platelet Volume 10.8, Neutrophils (%) (Auto) 71.6, Lymphocytes (%) (Auto) 14.7, Monocytes (%) ( Auto) 11.7, Eosinophils (%) (Auto) 1.2, Basophils (%) (Auto) 0.5, Neutrophils # (Auto) 4.72, Lymphocytes # (Auto) 0.97, Monocytes # (Auto) 0.77, Eosinophils # ( Auto) 0.08, Basophils # (Auto) 0.03 03/17/17 06:12 Test 03/17/17 06:12 White Blood Count 6.59 K/uL (4.8-10.8) Red Blood Count 3.33 M/uL (4.2-5.4) Hemoglobin 10.3 g/dL (12.0-16.0) Hematocrit 33.4 % (37-47) Mean Corpuscular Volume 100.3 fL (80-100) Mean Corpuscular Hemoglobin 30.9 pg (25-34) Mean Corpuscular Hemoglobin Concent 30.8 g/dl (32-36) Platelet Count 130 K/uL (130-400) Mean Platelet Volume 10.8 fL (7.4-10.4) Neutrophils (%) (Auto) 71.6 % Lymphocytes (%) (Auto) 14.7 % Monocytes (%) (Auto) 11.7 % Eosinophils (%) (Auto) 1.2 % Basophils (%) (Auto) 0.5 % Neutrophils # (Auto) 4.72 K/uL (1.4-6.5) Lymphocytes # (Auto) 0.97 K/uL (1.2-3.4) Monocytes # (Auto) 0.77 K/uL (0.11-0.59) Eosinophils # (Auto) 0.08 K/uL (0-0.5) Basophils # (Auto) 0.03 K/uL (0-0.2) RDW Standard Deviation 62.9 fL (36.4-46.3) RDW Coefficient of Variation 17.1 % (11.5-14.5) Immature Granulocyte % (Auto) 0.3 % Immature Granulocyte # (Auto) 0.02 K/uL (0.00-0.02) Prothrombin Time 31.0 SECONDS (9.0-12.0) Prothromb Time International Ratio 2.8 (0.9-1.1) Anion Gap 6.0 mmol/L (3-11) Est Creatinine Clear Calc Drug Dose 11.3 ml/min Estimated GFR () 12.1 Estimated GFR (Non- 10.5 BUN/Creatinine Ratio 6.5 (10-20) Calcium Level 8.8 mg/dl (8.5-10.1) Phosphorus Level 3.7 mg/dl (2.5-4.9) Magnesium Level 2.4 mg/dl (1.8-2.4) Total Bilirubin 0.4 mg/dl (0.2-1) Direct Bilirubin 0.2 mg/dl (0-0.2) Aspartate Amino Transf (AST/SGOT) 21 U/L (15-37) Alanine Aminotransferase (ALT/SGPT) 20 U/L (12-78) Alkaline Phosphatase 60 U/L (45-117) Total Protein 6.2 gm/dl (6.4-8.2) Albumin 2.3 gm/dl (3.4-5.0) Allergies Coded Allergies: No Known Allergies (Unverified , 03/14/17) Medications Current Inpatient Medications Medications (Trade) Dose Ordered Sig/Janeth Route Start Time Stop Time Status Last Admin Dose Admin Allopurinol (Zyloprim Tab) 50 mg QAM PO 03/15/17 09:00 04/14/17 08:59 03/17/17 08:46 50 MG Amiodarone HCl (Cordarone Tab) 200 mg QAM PO 03/15/17 09:00 04/14/17 08:59 03/17/17 08:45 200 MG Clopidogrel Bisulfate (plAVix TAB) 75 mg HS PO 03/14/17 21:00 04/13/17 20:59 03/16/17 19:58 75 MG Albuterol/ Ipratropium (Duoneb) 3 ml Q6R PRN INH 03/14/17 11:45 04/13/17 11:44 Multivitamins (Multivitamin Tab) 2 tab QAM PO 03/15/17 09:00 04/14/17 08:59 03/17/17 08:45 2 TAB Pantoprazole Sodium (Protonix Tab) 40 mg QAM PO 03/15/17 09:00 04/14/17 08:59 03/17/17 08:46 40 MG Rosuvastatin Calcium (Crestor Tab) 10 mg HS PO 03/14/17 21:00 04/13/17 20:59 03/16/17 19:58 10 MG Senna/Docusate Sodium (Senokot S Tab) 1 tab BID PO 03/14/17 21:00 04/13/17 20:59 03/17/17 08:46 1 TAB Warfarin Sodium (Coumadin Tab) 2 mg DAILY@1600 PO 03/14/17 16:00 04/13/17 15:59 03/16/17 19:58 2 MG Sevelamer HCl (Renagel Tab) 800 mg TIDM PO 03/14/17 16:30 04/13/17 16:29 03/17/17 08:45 800 MG Acetaminophen (Tylenol Tab) 650 mg Q4H PRN PO 03/14/17 11:45 04/13/17 11:44 03/17/17 04:17 650 MG Al Hydrox/Mg Hydrox/Simethicone (Maalox Max Susp) 15 ml Q4H PRN PO 03/14/17 11:45 04/13/17 11:44 Magnesium Hydroxide (Milk Of Magnesia Susp) 30 ml Q12H PRN PO 03/14/17 11:45 04/13/17 11:44 Zolpidem Tartrate (Ambien Tab) 5 mg HSZ PRN PO 03/14/17 11:45 04/13/17 11:44 Ondansetron HCl (Zofran Inj) 4 mg Q6H PRN IV 03/14/17 11:45 04/13/17 11:44 Nitroglycerin (Nitrostat Tab) 0.4 mg UD PRN SL 03/14/17 11:45 04/13/17 11:44 Morphine Sulfate (MoRPHine SULFATE INJ) 2 mg Q30M PRN IV 03/14/17 11:45 03/28/17 11:44 03/14/17 21:02 2 MG Polyethylene (Miralax Powder Packet) 17 gm DAILY PRN PO 03/14/17 11:45 04/13/17 11:44 03/16/17 19:57 17 GM Lorazepam (Ativan Inj) 0.5 mg Q4H PRN IV 03/14/17 12:15 04/13/17 12:14 Ioversol (Optiray 320) 100 ml UD PRN IV 03/14/17 12:30 03/18/17 12:29 Vancomycin HCl (Consult) 1 ea UD PRN N/A 03/15/17 06:30 04/14/17 06:29 Impression (1) 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 (2) Leukocytosis (3) Hypotension Patient admitted for evaluation of chest discomfort in the setting of hypotension and leukocytosis. CXR shows small L pleural effusion and atelectasis. Chest CT was negative for dissection. Troponin is mildly elevated due to ESRD. ECG was negative for myocardial ischemia. Blood pressure has improved following IV fluid bolus. Patient is symptomatically improved. Need to remain vigilant for possible infection from pulmonary source or HD catheter. AVF hematoma is not erythematous or fluctuant. Recommendations END STAGE RENAL DISEASE: -- Patient completed 3 hours of HD yesterday following new L IJ THC insertion. RN notes reviewed. There were no complications. -- Volume status and electrolyte balance are acceptable. No acute indication for HD today ID: -- One of two blood cultures are positive for group B beta strep and sensitive to PCN. Recommend narrowing antibiotic spectrum. Patient is afebrile and WBC # has normalized. Recommend 2 week course of oral antibiotic -- HD catheter tip and follow up blood cultures are negative. Note that these were obtained while patient was on broad spectrum antibiotics. CHEST PAIN: -- CXR films reviewed and chest CT report read. No evidence of dissection -- Troponin is trending down now that bp has stabilized. OTHER: -- If discharge is anticipated patient will need to call [facility] HD unit to resume MWF outpatient HD
[2017-03-17 10:47] VITALS: BP 110/68; PULSE 62; TEMP 36.6; O2SAT 99
--- NOTE | 2017-03-17 11:12 | Progress Note ---
Subjective Date of Service: Mar 17, 2017. Subjective Pt evaluation today including: conversation w/ patient, conversation w/ family , physical exam, chart review, lab review, review of studies, review of inpatient medication list Pt sitting up in chair Denies any chest pain, sob, fevers, or chills No acute events overnight Problem List Medical Problems: (1) CHF (congestive heart failure) Status: Acute (2) CHF (congestive heart failure) Status: Acute (3) Chronic kidney insufficiency Status: Acute (4) Chronic renal failure Status: Acute (5) Congestive heart failure Status: Acute (6) E16.2 Status: Acute (7) Elevated INR Status: Acute (8) Elevated troponin Status: Acute (9) GI bleed Status: Acute (10) Hypotension Status: Acute (11) Left leg DVT Status: Acute (12) Pancytopenia Status: Acute (13) Pneumonia Status: Acute (14) Pulmonary edema Status: Acute (15) Respiratory distress Status: Acute (16) Sepsis Status: Acute (17) ST segment changes on electrocardiogram Status: Acute (18) Substernal precordial chest pain Status: Acute (19) Substernal precordial chest pain Status: Acute (20) Symptomatic anemia Status: Acute (21) Weakness Status: Acute Review of Systems Constitutional: No fever, No chills, No sweats, No weight loss, No weakness ENT: No hearing loss, No unusual epistaxis, No nasal symptoms, No sore throat Respiratory: No cough, No sputum, No wheezing, No shortness of breath, No dyspnea on exertion Cardiac: No chest pain, No orthopnea, No PND, No edema, No claudication, No palpitations Abdomen: No pain, No nausea, No vomiting, No diarrhea, No constipation Musculoskeletal: No joint pain, No muscle pain, No swelling Female : No dysuria, No urinary frequency, No hematuria, No incontinence Neurologic: No memory loss, No paralysis, No weakness, No numbness/tingling Psychiatric: No depression symptoms, No anhedonism, No anxiety, No insomnia Endo: No fatigue, No excessive thirst Skin: No rash, No itch Objective Vital Signs Date Time Temp Pulse Resp B/P (MAP) Pulse Ox O2 Delivery O2 Flow Rate FiO2 03/17/17 10:47 36.6 62 16 110/68 (82) 99 2.5 03/17/17 09:00 Nasal Cannula 2.0 03/17/17 07:20 36.5 62 18 133/71 (91) 99 3.0 03/17/17 04:00 Nasal Cannula 2.0 03/17/17 03:50 36.6 62 22 115/63 (80) 97 Nasal Cannula 3.0 03/16/17 23:59 Nasal Cannula 2.0 03/16/17 23:27 36.5 62 20 106/63 (77) 98 Nasal Cannula 3.0 03/16/17 20:00 Nasal Cannula 2.0 03/16/17 19:40 36.6 63 18 125/70 (88) 100 Nasal Cannula 2.0 03/16/17 18:45 61 124/59 03/16/17 18:30 60 131/60 03/16/17 18:15 59 121/61 03/16/17 18:00 60 121/62 03/16/17 17:45 61 122/59 03/16/17 17:30 63 123/63 03/16/17 17:20 36.5 62 125/62 (83) 03/16/17 17:15 58 117/54 03/16/17 17:00 59 115/57 03/16/17 16:45 63 107/57 03/16/17 16:30 60 120/58 03/16/17 16:15 60 117/54 03/16/17 15:58 60 128/61 03/16/17 15:55 36.6 61 114/58 (76) 03/16/17 15:45 Nasal Cannula 4.0 03/16/17 15:20 36.2 63 16 122/75 (91) 95 Nasal Cannula 3.5 03/16/17 14:50 36.2 65 16 129/71 (90) 98 Nasal Cannula 3.5 03/16/17 14:37 63 16 130/56 96 Nasal Cannula 4 03/16/17 14:17 64 14 119/56 99 Nasal Cannula 4 03/16/17 13:34 36.3 66 20 114/69 93 Room Air 2.0 03/16/17 11:52 36.3 66 20 114/69 (84) 93 Room Air 03/16/17 11:35 36.6 67 138/64 (88) Physical Exam General Appearance: WD/WN, no apparent distress Eyes: normal inspection, PERRL, EOMI, sclerae normal Neck: supple, no adenopathy, thyroid normal, no JVD Respiratory/Chest: chest non-tender, lungs clear, normal breath sounds, no respiratory distress Cardiovascular: regular rate, rhythm, no edema, no gallop, no JVD, + systolic murmur Abdomen: normal bowel sounds, non tender, soft, no organomegaly Neurologic/Psychiatric: no motor/sensory deficits, alert, normal mood/affect, oriented x 3 Laboratory Results Last 24 Hours Test 03/17/17 06:12 White Blood Count 6.59 K/uL Red Blood Count 3.33 M/uL Hemoglobin 10.3 g/dL Hematocrit 33.4 % Mean Corpuscular Volume 100.3 fL Mean Corpuscular Hemoglobin 30.9 pg Mean Corpuscular Hemoglobin Concent 30.8 g/dl Platelet Count 130 K/uL Mean Platelet Volume 10.8 fL Neutrophils (%) (Auto) 71.6 % Lymphocytes (%) (Auto) 14.7 % Monocytes (%) (Auto) 11.7 % Eosinophils (%) (Auto) 1.2 % Basophils (%) (Auto) 0.5 % Neutrophils # (Auto) 4.72 K/uL Lymphocytes # (Auto) 0.97 K/uL Monocytes # (Auto) 0.77 K/uL Eosinophils # (Auto) 0.08 K/uL Basophils # (Auto) 0.03 K/uL RDW Standard Deviation 62.9 fL RDW Coefficient of Variation 17.1 % Immature Granulocyte % (Auto) 0.3 % Immature Granulocyte # (Auto) 0.02 K/uL Prothrombin Time 31.0 SECONDS Prothromb Time International Ratio 2.8 Sodium Level 138 mmol/L Potassium Level 4.1 mmol/L Chloride Level 105 mmol/L Carbon Dioxide Level 27 mmol/L Anion Gap 6.0 mmol/L Blood Urea Nitrogen 24 mg/dl Creatinine 3.70 mg/dl Est Creatinine Clear Calc Drug Dose 11.3 ml/min Estimated GFR () 12.1 Estimated GFR (Non- 10.5 BUN/Creatinine Ratio 6.5 Random Glucose 110 mg/dl Calcium Level 8.8 mg/dl Phosphorus Level 3.7 mg/dl Magnesium Level 2.4 mg/dl Total Bilirubin 0.4 mg/dl Direct Bilirubin 0.2 mg/dl Aspartate Amino Transf (AST/SGOT) 21 U/L Alanine Aminotransferase (ALT/SGPT) 20 U/L Alkaline Phosphatase 60 U/L Total Protein 6.2 gm/dl Albumin 2.3 gm/dl Assessment and Plan 87 y/o F ESRD, CAD, DVT - on Coumadin, DM2, PAF. Pt presents with moderate to severe central CP, radiating to her L back and accompanied by SOB and diaphoresis. Onset of symptoms occurred at 5am waking her from sleep. She has a chronic mild trop elevation. She was admitted with similar symptoms 01/17 and declined a cardiac cath at that time. Her BP is low at the time of admission despite receiving 500 CC of NS in the ER. Initial labs are notable for leukocytosis. She denies a productive cough, recorded fevers, nausea/ vomiting or diarrhea. She had a few episodes of sweats the prior evening. CAD, Persistent CP - SOB, radiation to back - RESOLVED, she has had a previous [place] and states she did not have CP symptoms at the time. Trop is approximately at baseline and EKG does not show any overt changes. CT dissection study unremarkable. Pt refusing cardiac cath at this time. Appreciate cardiology evaluation. Cont stain and plavix Sepsis likely from staph bacteremia/?PNA - Pt was hypotensive on admission and admitted to ICU. ID consulted. Pt has nonproductive cough. No fevers and hypotension resolved. Leukocytosis 24-->18-->9. 1 of 2 BC pos for group B strep , repeat blood cx pending, Cont van per ID recs, will need 2 weeks tx from first neg BC ESRD - Nephrology consulted - Currently electrolytes acceptable, HD unable to be completed due to poor access, IJ catheter placed, dialysis completed 03/16 PAF - Currently in sinus rhythm, rate controlled, cont amiodarone 200 mg PO q AM and coumadin 2 mg PO daily, appreciate cardiology recs, INR therapeutic GERD - history of GI bleed - cont PPI DVT ppx with coumadin Pt is DNR now
--- NOTE | 2017-03-17 14:26 | DIAGNOSTIC IMAGING REPORT ---
VENOUS DOPPLER LW EXT BILAT HISTORY: Pain. Edema. rule out dv COMPARISON STUDY: 01/16/2017 FINDINGS: Normal right leg. 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 This is less prominent compared to the prior study. IMPRESSION: 1. Improved exam compared to the prior study. 2. Mild residual chronic thrombophlebitis of the left leg, improved from the prior study. 3. Normal right leg. 4. No evidence for acute deep venous thrombosis The above report was generated using voice recognition software. It may contain grammatical, syntax or spelling errors. Electronically signed by: Raulito Acosta M.D. 03/17/2017 2:24 PM Dictated Date/Time: 03/17/2017 2:22 PM
[2017-03-17 15:02] VITALS: BP 115/71; PULSE 62; TEMP 36.4; O2SAT 96
[2017-03-17] MEDS ORDERED: AMOXICILLIN/CLAVULANATE TAB 875 MG TAB PO SCH (16:45)
[2017-03-17] MEDS: WARFARIN SOD 2 MG TAB PO SCH (16:48)
[2017-03-17 19:30] VITALS: BP 111/68; PULSE 62; TEMP 36.3; O2SAT 95
[2017-03-17] MEDS: CLOPIDOGREL BISULFATE 75 MG TAB PO SCH (21:28)
[2017-03-17] MEDS: ROSUVASTATIN CALCIUM 10 MG TAB PO SCH (21:28)
[2017-03-18 00:04] VITALS: BP 135/75; PULSE 66; TEMP 36.8; O2SAT 100
[2017-03-18] MEDS: ACETAMINOPHEN 325 MG TAB PO PRN ×2 (01:43→09:48)
[2017-03-18 04:45] VITALS: BP 107/62; PULSE 62; TEMP 36.3; O2SAT 100
[2017-03-18 07:44] VITALS: BP 119/69; PULSE 66; TEMP 36.8; O2SAT 93
[2017-03-18 07:46] LABS: BASO % 0.2 %; BASO ABS # 0.01 K/uL (0-0.2); COMPLETE YES; EOS % 2.6 %; HEMATOCRIT 33.7 % (37-47); IG% 0.2 %; LYMPH % 19.4 %; LYMPH ABS # 1.12 K/uL (1.2-3.4); MEAN CELL VOLUME 100.3 fL (80-100); MEAN CORPUSCULAR HEMOGLOBIN 31.8 pg (25-34); MEAN CORPUSCULAR HGB CONC 31.8 g/dl (32-36); MEAN PLATELET VOLUME 10.4 fL (7.4-10.4); MONO % 13.2 %; NEUT % 64.4 %; PLATELET COUNT 146 K/uL (130-400); RED BLOOD COUNT 3.36 M/uL (4.2-5.4); WHITE BLOOD COUNT 5.77 K/uL (4.8-10.8)
[2017-03-18 08:08] LABS: INR 3.1 (0.9-1.1); PROTHROMBIN TIME (PATIENT) 34.6 SECONDS (9.0-12.0)
[2017-03-18 08:35] LABS: ALKALINE PHOSPHATASE 57 U/L (45-117); ALT/SGPT 17 U/L (12-78); AST/SGOT 15 U/L (15-37); BUN/CREATININE RATIO 7.6 (10-20); CALCIUM 8.8 mg/dl (8.5-10.1); CARBON DIOXIDE 24 mmol/L (21-32); CHLORIDE 106 mmol/L (98-107); GLUCOSE 130 mg/dl (70-99); MAGNESIUM 2.6 mg/dl (1.8-2.4); PHOSPHORUS 4.2 mg/dl (2.5-4.9); POTASSIUM 4.1 mmol/L (3.5-5.1); SODIUM 138 mmol/L (136-145)
[2017-03-18] MEDS: DOCUSATE SODIUM/SENNA 50/8.6MG TAB PO SCH (08:56)
[2017-03-18] MEDS: MULTIVITAMIN TAB PO SCH (08:56)
[2017-03-18] MEDS: ALLOPURINOL 100 MG TAB PO SCH (08:56)
[2017-03-18] MEDS: PANTOprazole SOD 40 MG TAB PO SCH (08:56)
[2017-03-18] MEDS: SEVELAMER HYDROCH 800 MG TAB PO SCH ×2 (08:57→12:00)
[2017-03-18] MEDS: AMIODARONE 200 MG TAB PO SCH (08:57)
--- NOTE | 2017-03-18 09:29 | Nephrology Progress Note ---
Nephrology Progress Note Date of Service Mar 18, 2017. Chief Complaint Follow up evaluation of this patient w/ ESRD admitted with hypotension and chest discomfort Subjective Ms. Rahman was seen & examined in her hospital room this morning. She had just completed OT. She denies fever, angina or dyspnea. Ms. Rahman is hopeful that she will be able to return home today. Review of Systems Constitutional: No fever Cardiovascular: No chest pain Respiratory: No dyspnea at rest Abdomen: No pain, No nausea, No vomiting Extremities: No leg edema A complete review of systems was performed. Pertinent positives are noted above. All other systems are negative. Vital Signs Last 8 Hrs Date Time Temp Pulse Resp B/P (MAP) Pulse Ox O2 Delivery O2 Flow Rate FiO2 03/18/17 07:44 36.8 66 18 119/69 (86) 93 Room Air 03/18/17 04:45 36.3 62 18 107/62 (77) 100 Nasal Cannula 2.0 03/18/17 04:00 Room Air Last Recorded Weight Weight (Kilograms): 75.900 Physical Exam General Appearance: no apparent distress Head: normocephalic, atraumatic Eyes: PERRL, EOMI Neck: no adenopathy Respiratory/Chest: lungs clear Cardiovascular: regular rate, rhythm Abdomen/GI: normal bowel sounds, non tender, soft Extremities/Musculoskelatal: no calf tenderness, no pedal edema Neurologic/Psych: alert, oriented x 3 Family History Asthma Cancer SISTER (Breast cancer) Chronic kidney disease MOTHER Diabetes mellitus FATHER Heart disease FATHER Hypertension FATHER MOTHER Kidney disease Kidney stones Stroke Noncontributory Social History Smoking Status: Never smoker Drug Use: none Marital Status: Housing Status: lives with family Occupation: retired . Retired. Never a smoker. Laboratory Results Past 24 Hours 03/18/17 06:56 Red Blood Count 3.36, Mean Corpuscular Volume 100.3, Mean Corpuscular Hemoglobin 31.8, Mean Corpuscular Hemoglobin Concent 31.8, Mean Platelet Volume 10.4, Neutrophils (%) (Auto) 64.4, Lymphocytes (%) (Auto) 19.4, Monocytes (%) ( Auto) 13.2, Eosinophils (%) (Auto) 2.6, Basophils (%) (Auto) 0.2, Neutrophils # (Auto) 3.72, Lymphocytes # (Auto) 1.12, Monocytes # (Auto) 0.76, Eosinophils # ( Auto) 0.15, Basophils # (Auto) 0.01 03/18/17 06:56 Test 03/18/17 06:56 White Blood Count 5.77 K/uL (4.8-10.8) Red Blood Count 3.36 M/uL (4.2-5.4) Hemoglobin 10.7 g/dL (12.0-16.0) Hematocrit 33.7 % (37-47) Mean Corpuscular Volume 100.3 fL (80-100) Mean Corpuscular Hemoglobin 31.8 pg (25-34) Mean Corpuscular Hemoglobin Concent 31.8 g/dl (32-36) Platelet Count 146 K/uL (130-400) Mean Platelet Volume 10.4 fL (7.4-10.4) Neutrophils (%) (Auto) 64.4 % Lymphocytes (%) (Auto) 19.4 % Monocytes (%) (Auto) 13.2 % Eosinophils (%) (Auto) 2.6 % Basophils (%) (Auto) 0.2 % Neutrophils # (Auto) 3.72 K/uL (1.4-6.5) Lymphocytes # (Auto) 1.12 K/uL (1.2-3.4) Monocytes # (Auto) 0.76 K/uL (0.11-0.59) Eosinophils # (Auto) 0.15 K/uL (0-0.5) Basophils # (Auto) 0.01 K/uL (0-0.2) RDW Standard Deviation 60.7 fL (36.4-46.3) RDW Coefficient of Variation 16.9 % (11.5-14.5) Immature Granulocyte % (Auto) 0.2 % Immature Granulocyte # (Auto) 0.01 K/uL (0.00-0.02) Prothrombin Time 34.6 SECONDS (9.0-12.0) Prothromb Time International Ratio 3.1 (0.9-1.1) Anion Gap 8.0 mmol/L (3-11) Est Creatinine Clear Calc Drug Dose 8.4 ml/min Estimated GFR () 8.4 Estimated GFR (Non- 7.3 BUN/Creatinine Ratio 7.6 (10-20) Calcium Level 8.8 mg/dl (8.5-10.1) Phosphorus Level 4.2 mg/dl (2.5-4.9) Magnesium Level 2.6 mg/dl (1.8-2.4) Total Bilirubin 0.4 mg/dl (0.2-1) Aspartate Amino Transf (AST/SGOT) 15 U/L (15-37) Alanine Aminotransferase (ALT/SGPT) 17 U/L (12-78) Alkaline Phosphatase 57 U/L (45-117) Total Protein 6.0 gm/dl (6.4-8.2) Albumin 2.3 gm/dl (3.4-5.0) Allergies Coded Allergies: No Known Allergies (Unverified , 03/14/17) Medications Current Inpatient Medications Medications (Trade) Dose Ordered Sig/Janeth Route Start Time Stop Time Status Last Admin Dose Admin Allopurinol (Zyloprim Tab) 50 mg QAM PO 03/15/17 09:00 04/14/17 08:59 03/18/17 08:56 50 MG Amiodarone HCl (Cordarone Tab) 200 mg QAM PO 03/15/17 09:00 04/14/17 08:59 03/18/17 08:57 200 MG Clopidogrel Bisulfate (plAVix TAB) 75 mg HS PO 03/14/17 21:00 04/13/17 20:59 03/17/17 21:28 75 MG Albuterol/ Ipratropium (Duoneb) 3 ml Q6R PRN INH 03/14/17 11:45 04/13/17 11:44 Multivitamins (Multivitamin Tab) 2 tab QAM PO 03/15/17 09:00 04/14/17 08:59 03/18/17 08:56 2 TAB Pantoprazole Sodium (Protonix Tab) 40 mg QAM PO 03/15/17 09:00 04/14/17 08:59 03/18/17 08:56 40 MG Rosuvastatin Calcium (Crestor Tab) 10 mg HS PO 03/14/17 21:00 04/13/17 20:59 03/17/17 21:28 10 MG Senna/Docusate Sodium (Senokot S Tab) 1 tab BID PO 03/14/17 21:00 04/13/17 20:59 03/18/17 08:56 1 TAB Warfarin Sodium (Coumadin Tab) 2 mg DAILY@1600 PO 03/14/17 16:00 04/13/17 15:59 03/17/17 16:48 2 MG Sevelamer HCl (Renagel Tab) 800 mg TIDM PO 03/14/17 16:30 04/13/17 16:29 03/18/17 08:57 800 MG Acetaminophen (Tylenol Tab) 650 mg Q4H PRN PO 03/14/17 11:45 04/13/17 11:44 03/18/17 01:43 650 MG Al Hydrox/Mg Hydrox/Simethicone (Maalox Max Susp) 15 ml Q4H PRN PO 03/14/17 11:45 04/13/17 11:44 Magnesium Hydroxide (Milk Of Magnesia Susp) 30 ml Q12H PRN PO 03/14/17 11:45 04/13/17 11:44 Zolpidem Tartrate (Ambien Tab) 5 mg HSZ PRN PO 03/14/17 11:45 04/13/17 11:44 Ondansetron HCl (Zofran Inj) 4 mg Q6H PRN IV 03/14/17 11:45 04/13/17 11:44 Nitroglycerin (Nitrostat Tab) 0.4 mg UD PRN SL 03/14/17 11:45 04/13/17 11:44 Morphine Sulfate (MoRPHine SULFATE INJ) 2 mg Q30M PRN IV 03/14/17 11:45 03/28/17 11:44 03/14/17 21:02 2 MG Polyethylene (Miralax Powder Packet) 17 gm DAILY PRN PO 03/14/17 11:45 04/13/17 11:44 03/16/17 19:57 17 GM Lorazepam (Ativan Inj) 0.5 mg Q4H PRN IV 03/14/17 12:15 04/13/17 12:14 Ioversol (Optiray 320) 100 ml UD PRN IV 03/14/17 12:30 03/18/17 12:29 Vancomycin HCl (Consult) 1 ea UD PRN N/A 03/15/17 06:30 04/14/17 06:29 Impression (1) 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 (2) Leukocytosis (3) Hypotension Patient admitted for evaluation of chest discomfort in the setting of hypotension and leukocytosis. CXR shows small L pleural effusion and atelectasis. Chest CT was negative for dissection. Troponin is mildly elevated due to ESRD. ECG was negative for myocardial ischemia. Blood pressure has improved following IV fluid bolus. Patient is symptomatically improved. Blood culture was positive for group B streptococcus in one of two sets. R IJ THC was removed. AVF could not yet be used as vascular access due to large hematoma. New L IJ THC placed 24 hours later while on antibiotic therapy. Recommendations END STAGE RENAL DISEASE: -- Volume status and electrolyte balance are acceptable. No acute indication for HD today ID: -- One of two blood cultures are positive for group B beta strep and sensitive to PCN. Recommend narrowing antibiotic spectrum. Patient is afebrile and WBC # has normalized. Recommend 2 week course of oral antibiotic -- HD catheter tip and follow up blood cultures are negative. Note that these were obtained while patient was on broad spectrum antibiotics. CHEST PAIN: -- CXR films reviewed and chest CT report read. No evidence of dissection -- Troponin is trending down now that bp has stabilized. OTHER: -- If discharge is anticipated patient will need to call [facility] HD unit to resume MWF outpatient HD
[2017-03-18 09:33] LABS: BLOOD UREA NITROGEN 39 mg/dl (7-18)
[2017-03-18 11:14] VITALS: BP 127/71; PULSE 62; TEMP 36.6; O2SAT 95
[2017-03-18] MEDS ORDERED: [UNRECOGNIZED DRUG - CODE] PO (11:29)
[2017-03-18] MEDS ORDERED: VANC1INJ72 IV (11:29)
--- NOTE | 2017-03-18 11:36 | Discharge Instructions ---
Discharge Instructions Date of Service Mar 18, 2017. Admission Reason for Admission: Chest Pain, Hypotension Discharge Discharge Diagnosis / Problem: Group B strep bacteremia, ESRD Discharge Goals Goal(s): Decrease discomfort, Improve function, Increase independence, Improve disease control, Diagnostic testing, Therapeutic intervention Activity Recommendations Activity Limitations: resume your previous activity Exercise/Sports Limitations: as tolerated . Instructions / Follow-Up Instructions / Follow-Up Patient to be discharged home Please continue dialysis sun, sun, sunday Patient to also get antibiotic vancomycin 750 mg IV after each dialysis session , to be completed 03/29 Please follow up with Dr Hart in 1-2 weeks Current Hospital Diet Patient's current hospital diet: Renal Diet Discharge Diet Recommended Diet: Renal Diet Procedures Procedures Performed: Insertion of Perm Catheter, Left Internal Jugular Approach, Ultrasound Localization of Left Internal Jugular Vein, Fluoroscopy for Positioning, Moderate Sedation from 1358- 1416. Pending Studies Studies pending at discharge: no Laboratory Results Hemoglobin A1c Test 01/12/17 05:59 Range/Units Estimated Average Glucose 108 mg/dl Hemoglobin A1c 5.4 4.5-5.6 % Medical Emergencies . Who to Call and When: Medical Emergencies: If at any time you feel your situation is an emergency, please call 911 immediately. . Non-Emergent Contact Non-Emergency issues call your: Primary Care Provider Call Non-Emergent contact if: you have a fever, your pain is worsening . . "Provider Documentation" section prepared by Jens Elliott. . VTE Core Measure Inpt VTE Proph given/why not?: Warfarin (Coumadin)
[2017-03-18 12:10] VITALS: BP 127/71; PULSE 62; TEMP 36.6; O2SAT 95
--- NOTE | 2017-03-18 13:10 | Discharge Summary ---
Discharge Summary Date of Service Mar 18, 2017. Discharge Summary Admission Date: Mar 14, 2017 at 12:20 Discharge Date: Mar 18, 2017 Discharge Disposition: Home Principal Diagnosis: Group b strep sepsis, end stage renal disease Immunizations: Have You Had Influenza Vaccine: Yes Influenza Vaccine Date: Apr 17, 2012 History of Tetanus Vaccine?: Yes Tetanus Immunization Date: Dec 16, 2006 History of Pneumococcal: Yes Pneumococcal Date: Dec 17, 2007 History of Hepatitis B Vaccine: No Consultations: Nephrology Vascular surgery Medication Reconciliation New Medications: Vancomycin HCl in Sodium Chlor (Vancomycin 750-0.9 mg/150Ml-%) 1 Inj Inj 750 MG IV UD for 11 Days, #11 VIAL To be given after dialysis Sevelamer Hydroch (Renagel) 800 Mg Tab 800 MG PO TIDM, #90 TAB Continued Medications: Allopurinol (Zyloprim) 100 Mg Tab 50 MG PO QAM Amiodarone Hcl (Cordarone) 200 Mg Tab 200 MG PO QAM Clopidogrel (Plavix) 75 Mg Tab 75 MG PO HS, 0 Refills Ipratropium-Albuterol (Duoneb) 3 Ml Nebu 1 TREATMENT INH Q4H PRN for SOB/Wheezing Multiple Vitamin (Renal Multivitamin Formul) 1 Tab Tab 2 TABS PO QAM Nitroglycerin (Nitrostat) 0.4 Mg Tab 0.4 MG UT PRN Nutritional Supplements (Colon Formula) 1 Cap Cap 1 CAP PO QAM Pantoprazole (Protonix) 40 Mg Tab 40 MG PO QAM Polyethylene Glycol 3350 (Miralax) 1 Pow Pow 17 GM PO AMPM Rosuvastatin Calcium (Crestor) 10 Mg Tab 10 MG PO HS, TAB Sennosides-Docusate Sodium (Stool Softener) 1 Tab Tab 1 TAB PO BID Warfarin Sodium (Warfarin Sodium) 2 Mg Tab 1 TAB PO QPM Discontinued Medications: Sevelamer Carbonate (Renvela) 800 Mg Tab 800 MG PO WM Discharge Exam Review of Systems: Constitutional: No fever, No chills, No sweats, No weakness Eyes: No worsening of vision, No eye pain, No redness, No discharge ENT: No hearing loss, No unusual epistaxis, No nasal symptoms, No sore throat Respiratory: No cough, No sputum, No wheezing, No shortness of breath, No dyspnea on exertion Cardiovascular: No chest pain, No orthopnea, No PND, No edema Abdomen: No pain, No nausea, No vomiting, No diarrhea Musculoskeletal: No joint pain, No muscle pain, No swelling, No calf pain Genitourinary - Female: No dysuria, No urinary frequency, No urinary urgency , No urinary incontinence Neurologic: No memory loss, No paralysis, No weakness, No numbness/tingling Psychiatric: No depression symptoms, No anhedonism, No anxiety, No insomnia Physical Exam: General Appearance: WD/WN, no apparent distress Eyes: normal inspection, PERRL, EOMI, sclerae normal Neck: supple, no adenopathy, thyroid normal, no JVD Respiratory/Chest: chest non-tender, lungs clear, normal breath sounds, no respiratory distress Cardiovascular: regular rate, rhythm, no edema, no gallop, no JVD Abdomen / GI: normal bowel sounds, non tender, soft, no organomegaly Extremities: normal inspection, no calf tenderness, normal capillary refill , no pedal edema Neurologic/Psychiatric: no motor/sensory deficits, alert, normal mood/affect , normal reflexes Hospital Course 87 y/o F ESRD, CAD, DVT - on Coumadin, DM2, PAF. Pt presents with moderate to severe central CP, radiating to her L back and accompanied by SOB and diaphoresis. Onset of symptoms occurred at 5am waking her from sleep. She has a chronic mild trop elevation. She was admitted with similar symptoms 01/17 and declined a cardiac cath at that time. Her BP is low at the time of admission despite receiving 500 CC of NS in the ER. Initial labs are notable for leukocytosis. She denies a productive cough, recorded fevers, nausea/ vomiting or diarrhea. She had a few episodes of sweats the prior evening. CAD, Persistent CP - SOB, radiation to back - RESOLVED, she has had a previous AR and states she did not have CP symptoms at the time. Trop is approximately at baseline and EKG does not show any overt changes. CT dissection study unremarkable. Pt refusing cardiac cath at this time. Appreciate cardiology evaluation. Cont stain and plavix Sepsis likely from staph bacteremia/?PNA - Pt was hypotensive on admission and admitted to ICU. ID consulted. Pt has nonproductive cough. No fevers and hypotension resolved. Leukocytosis 24-->18-->9. 1 of 2 BC pos for group B strep , repeat blood cx NGTD, Cont van per ID recs, will require vanc 750 mg IV after dialysis session till end date 03/29 ESRD - Nephrology consulted - Currently electrolytes acceptable, HD unable to be completed due to poor access, IJ catheter placed, dialysis completed 03/16 PAF - Currently in sinus rhythm, rate controlled, cont amiodarone 200 mg PO q AM and coumadin 2 mg PO daily, appreciate cardiology recs, INR therapeutic GERD - history of GI bleed - cont PPI DVT ppx with coumadin Pt is DNR now Total Time Spent: Greater than 30 minutes This includes examination of the patient, discharge planning, medication reconciliation, and communication with other providers. Discharge Instructions Please refer to the electronic Patient Visit Report (Discharge Instructions) for additional information. Additional Copies To Cooper Hart M.D.
== END 2017-03-18 13:15 | disposition home or self-care (01) | DRG 871 ==
LOC: EDBD 09:51 → C.EDB 09:53 → CANRESERV 12:11 → ENRESERV 12:11 → C.MSICU 12:20 → EDBEDREQ 12:23 → EDBEDREQSVC 12:23 → EDBEDREQTM 12:29 → ENRESERV 12:30 → C.2T 03-15 21:45
PROVIDERS: ADMIT Internal Medicine; ATTEND Hospitalist
PROC: 02HV33Z Insertion of Infusion Device into Superior Vena Cava, Percutaneous Approach (ICD-10-PCS; 2017-03-15)
PROC: 05PYX3Z Removal of Infusion Device from Upper Vein, External Approach (ICD-10-PCS; principal; 2017-03-15 14:00)
DX: A40.1 Sepsis due to streptococcus, group B (principal); J18.9 Pneumonia, unspecified organism; N18.6 End stage renal disease; I32 Pericarditis in diseases classified elsewhere; I50.32 Chronic diastolic (congestive) heart failure; E87.2 Acidosis; Z99.2 Dependence on renal dialysis; E11.22 Type 2 diabetes mellitus with diabetic chronic kidney disease; E11.51 Type 2 diabetes mellitus with diabetic peripheral angiopathy without gangrene; I48.0 Paroxysmal atrial fibrillation; I25.10 Atherosclerotic heart disease of native coronary artery without angina pectoris; K21.9 Gastro-esophageal reflux disease without esophagitis; E87.5 Hyperkalemia; E78.5 Hyperlipidemia, unspecified; E78.00 Pure hypercholesterolemia, unspecified; I25.2 Old myocardial infarction; I08.0 Rheumatic disorders of both mitral and aortic valves; R09.02 Hypoxemia; I44.0 Atrioventricular block, first degree; Z79.02 Long term (current) use of antithrombotics/antiplatelets; Z79.01 Long term (current) use of anticoagulants; Z79.899 Other long term (current) drug therapy; Z66 Do not resuscitate; Z86.718 Personal history of other venous thrombosis and embolism; Z95.1 Presence of aortocoronary bypass graft; Z82.5 Family history of asthma and other chronic lower respiratory diseases; Z80.3 Family history of malignant neoplasm of breast; Z83.3 Family history of diabetes mellitus; Z82.49 Family history of ischemic heart disease and other diseases of the circulatory system; Z82.3 Family history of stroke; Z84.1 Family history of disorders of kidney and ureter; Z87.19 Personal history of other diseases of the digestive system; Z87.442 Personal history of urinary calculi; Z90.49 Acquired absence of other specified parts of digestive tract; Z90.710 Acquired absence of both cervix and uterus; Z98.49 Cataract extraction status, unspecified eye; Z95.5 Presence of coronary angioplasty implant and graft; Z96.649 Presence of unspecified artificial hip joint; Z96.659 Presence of unspecified artificial knee joint

== ENCOUNTER 2017-04-20 20:05 | Inpatient (IN) | payer OTHER ==
[~2017-04-20] VITALS: Ht 162.6 cm; Wt 72.4 kg
[~2017-04-20 20:05] MED LIST changes: -CEPH500C PO; -HPRIS5MX SC; -RXC5 PO; -SULF1TAB92 PO
[2017-04-20] MEDS ORDERED: VANCOMYCIN INJ 1,400 MG in SODIUM CHLORIDE 0.9% 250ML 250 ML IV STA (20:20)
[2017-04-20] MEDS ORDERED: CEFAZOLIN SOD 1000MG/55 ML D5W IV STA (20:20)
[2017-04-20 20:45] LABS: BASO % 0.1 %; BASO ABS # 0.01 K/uL (0-0.2); COMPLETE YES; EOS % 0.8 %; HEMATOCRIT 37.7 % (37-47); IG% 0.4 %; LYMPH ABS # 0.78 K/uL (1.2-3.4); MEAN CELL VOLUME 100.8 fL (80-100); MEAN CORPUSCULAR HEMOGLOBIN 32.1 pg (25-34); MEAN CORPUSCULAR HGB CONC 31.8 g/dl (32-36); MEAN PLATELET VOLUME 10.1 fL (7.4-10.4); MONO % 7.1 %; NEUT % 81.6 %; PLATELET COUNT 135 K/uL (130-400); RED BLOOD COUNT 3.74 M/uL (4.2-5.4); WHITE BLOOD COUNT 7.78 K/uL (4.8-10.8)
[2017-04-20 21:01] LABS: BUN/CREATININE RATIO 9.6 (10-20); CALCIUM 8.3 mg/dl (8.5-10.1); CREATININE 2.7 mg/dl (0.60-1.20); POTASSIUM 3.5 mmol/L (3.5-5.1)
[2017-04-20] MEDS ORDERED: VANCOMYCIN INJ 1,500 MG in SODIUM CHLORIDE 0.9% 500ML 500 ML IV SCH (21:30)
[2017-04-20] MEDS ORDERED: ALBUT/IPRATROP 3MG/0.5MG NEB 3 ML VIAL INH PRN (22:00)
[2017-04-20] MEDS ORDERED: ONDANSETRON INJ 2 MG/ML 2 ML VIAL IV PRN (22:00)
[2017-04-20] MEDS ORDERED: ACETAMINOPHEN 325 MG TAB PO PRN (22:00)
[2017-04-20] MEDS ORDERED: NITROGLYCERIN 0.4 MG SL PER TAB CHARGE UT SCH (22:00)
--- NOTE | 2017-04-20 22:15 | History and Physical ---
History & Physical Date & Time of Service: Apr 20, 2017 at 21:58 Chief Complaint: Pain In Right Leg - Redness/Sore Primary Care Physician: Cooper Hart M.D. History of Present Illness Source: patient, family 87 y/o F Hx ESRD, CAD, DM, HTN, HPL, recent RLE DVT - on Coumadin. Pt developed redness, pain and swelling of her LLE over the past day. She denies a fever or rigors. Denies CP, SOB, N/V/D. She underwent dialysis earlier today. Past Medical/Surgical History Medical Problems: (1) Ac Myocrd Infrct,Oth Inferior Wall,Subseq Epis Car Status: Resolved (2) Aortocoronary Bypass Status: Resolved (3) Chronic Kidney Disease, Stage Iii (Moderate) Status: Chronic (4) Coronary Atherosclerosis Of Koi Coronary Vessel Status: Chronic (5) Diab Qiana Wo Compl, Type Ii Or Unspec Type, Not Uncntrld Status: Chronic (6) Hypertension Nos Status: Chronic (7) Knee Joint Replacement Status Status: Chronic (8) Old Myocardial Infarct Status: Chronic (9) Percutaneous Translum Coron Angioplasty Status Status: Resolved (10) Pneumonia, Organism Nos Status: Resolved (11) Pure Hypercholesterolem Status: Chronic (12) Urin Tract Infection Nos Status: Resolved 13) DVT LLE 04/19 Family History Asthma Cancer SISTER (Breast cancer) Chronic kidney disease MOTHER Diabetes mellitus FATHER Heart disease FATHER Hypertension FATHER MOTHER Kidney disease Kidney stones Stroke Social History Smoking Status: Never Smoker Drug Use: none Marital Status: Housing status: lives with family Occupational Status: retired Immunizations History of Influenza Vaccine: Yes Influenza Vaccine Date: Apr 17, 2012 History of Tetanus Vaccine?: Yes Tetanus Immunization Date: Dec 16, 2006 History of Pneumococcal: Yes Pneumococcal Date: Dec 17, 2007 History of Hepatitis B Vaccine: No Multi-Drug Resistant Organisms History of MDRO: No Allergies Coded Allergies: No Known Allergies (Unverified , 04/20/17) Home Medications Scheduled Allopurinol (Zyloprim), 50 MG PO QAM Amiodarone Hcl (Cordarone), 200 MG PO QAM Clopidogrel (Plavix), 75 MG PO HS Multiple Vitamin (Renal Multivitamin Formul), 2 TABS PO QAM Nitroglycerin (Nitrostat), 0.4 MG UT PRN Nutritional Supplements (Colon Formula), 1 CAP PO QAM Pantoprazole (Protonix), 40 MG PO QAM Polyethylene Glycol 3350 (Miralax), 17 GM PO AMPM Rosuvastatin Calcium (Crestor), 10 MG PO HS Sennosides-Docusate Sodium (Stool Softener), 1 TAB PO BID Sevelamer Hydroch (Renagel), 800 MG PO TIDM Warfarin Sodium (Warfarin Sodium), 1 TAB PO QPM Scheduled PRN Ipratropium-Albuterol (Duoneb), 1 TREATMENT INH Q4H PRN for SOB/Wheezing Review of Systems Constitutional: No fever, No chills, No sweats Eyes: No worsening of vision ENT: No hearing loss, No unusual epistaxis, No nasal symptoms Respiratory: No cough, No sputum, No wheezing Cardiovascular: No chest pain, No orthopnea, No PND Abdomen: No pain, No nausea, No vomiting Musculoskeletal: No joint pain Genitourinary - Female: No dysuria, No urinary frequency, No urinary urgency Neurologic: No memory loss, No paralysis, No weakness Psychiatric: No depression symptoms Endocrine: No fatigue Hematologic / Lymphatic: No abnormal bleeding/bruising Integumentary: + rash, + problem reported Allergic / Immunologic: No environmental allergies Physical Exam Vital Signs Date Time Temp Pulse Resp B/P (MAP) Pulse Ox O2 Delivery O2 Flow Rate FiO2 04/20/17 21:42 68 17 103/42 95 Room Air 04/20/17 20:09 36.6 74 16 105/54 96 Room Air General Appearance: WD/WN, no apparent distress, + pertinent finding (Pleasant eldelry female - no distress - AAO x 3 ) Head: normocephalic Eyes: normal inspection, EOMI ENT: normal ENT inspection, pharynx normal Neck: supple, no JVD Respiratory/Chest: chest non-tender, lungs clear, normal breath sounds, + pertinent finding (Dialysis cath in L chest) Cardiovascular: regular rate, rhythm, no gallop, no JVD Abdomen/GI: normal bowel sounds, non tender, soft Back: normal inspection, no CVA tenderness, no muscle spasm Extremities/Musculoskelatal: normal inspection, no calf tenderness, normal capillary refill, no pedal edema, normal range of motion Neurologic/Psych: ethics officer II-XII nml as tested, no motor/sensory deficits, alert, oriented x 3 Skin: + pertinent finding (Extensive cellulitis in extending from Her R foot to thigh - no open areas noted) Diagnostics Laboratory Results Results Past 24 Hours Test 04/20/17 20:30 Range/Units White Blood Count 7.78 4.8-10.8 K/uL Red Blood Count 3.74 4.2-5.4 M/uL Hemoglobin 12.0 12.0-16.0 g/dL Hematocrit 37.7 37-47 % Mean Corpuscular Volume 100.8 80-100 fL Mean Corpuscular Hemoglobin 32.1 25-34 pg Mean Corpuscular Hemoglobin Concent 31.8 32-36 g/dl Platelet Count 135 130-400 K/uL Mean Platelet Volume 10.1 7.4-10.4 fL Neutrophils (%) (Auto) 81.6 % Lymphocytes (%) (Auto) 10.0 % Monocytes (%) (Auto) 7.1 % Eosinophils (%) (Auto) 0.8 % Basophils (%) (Auto) 0.1 % Neutrophils # (Auto) 6.35 1.4-6.5 K/uL Lymphocytes # (Auto) 0.78 1.2-3.4 K/uL Monocytes # (Auto) 0.55 0.11-0.59 K/uL Eosinophils # (Auto) 0.06 0-0.5 K/uL Basophils # (Auto) 0.01 0-0.2 K/uL RDW Standard Deviation 64.9 36.4-46.3 fL RDW Coefficient of Variation 18.2 11.5-14.5 % Immature Granulocyte % (Auto) 0.4 % Immature Granulocyte # (Auto) 0.03 0.00-0.02 K/uL Sodium Level 139 136-145 mmol/L Potassium Level 3.5 3.5-5.1 mmol/L Chloride Level 99 98-107 mmol/L Carbon Dioxide Level 34 21-32 mmol/L Anion Gap 6.0 3-11 mmol/L Blood Urea Nitrogen 26 7-18 mg/dl Creatinine 2.70 0.60-1.20 mg/dl Est Creatinine Clear Calc Drug Dose 14.7 ml/min Estimated GFR () 17.8 Estimated GFR (Non- 15.3 BUN/Creatinine Ratio 9.6 10-20 Random Glucose 170 70-99 mg/dl Calcium Level 8.3 8.5-10.1 mg/dl Diagnostic Radiology LE US - no DVT on R Impression Assessment and Plan 87 y/o F Hx ESRD, CAD, DM, HTN, HPL, recent RLE DVT - on Coumadin. Pt developed redness, pain and swelling of her LLE over the past day. She denies a fever or rigors. Denies CP, SOB, N/V/D. She underwent dialysis earlier today. 1) Cellulitis - extensive although she does not currently meet SIRS criteria - considering her comorbidities and rapid spread of the infection, she will be placed on Vanc and Ceftriaxone - the affected area has been outlined. 2) DM - placed on SS 3) CAD - no evidence of ACS - cont Statin, Imdur - currently anticoagulated with Coumadin 4) ESRD - Due for dialysis Mo - cont Sevelamer, Renovite, renal diet 5) HPL - cont Statin Tx Full code - Coumadin prophylaxis Total time for this admit including review of labs, meds, imaging - discussion with pt and ER attending - 40 min Level of Care Med/Surg Resuscitation Status FULL RESUSCITATION VTE Prophylaxis VTE Risk Assessment Done? Y/N: Yes Risk Level: High Given or contraindicated: Warfarin (Coumadin)
[2017-04-20 23:28] VITALS: BP 115/61; PULSE 72; TEMP 37; O2SAT 95; Ht 162.6 cm; Wt 72.4 kg
--- NOTE | 2017-04-21 00:05 | EMERGENCY ROOM VISIT NOTE ---
History Report prepared by Barbara: Amrik Santacruz Under the Supervision of: Dr. Markos Krishnamurthy D.O. First contact with patient: 20:12 Chief Complaint: LEG PAIN,LEG INJURY Stated Complaint: PAIN IN RIGHT LEG - REDNESS/SORE History of Present Illness The patient is a 87 year old female who presents to the Emergency Room with complaints of right leg pain that began yesterday. She rates her pain a 5/10 in severity. At this time, the patient noticed that her right leg was red. Today, she woke up and it had worsened with some pain to the area as well. She denies any trauma, falls, or injury to the area. She received a Doppler study this morning at 1100 that was negative. Her pain worsens with palpation. Pt denies headache, change in vision, cough, rhinorrhea, fevers, chest pain, shortness of breath, nausea, vomiting, diarrhea, pain with urination, and melena. She received dialysis on Sunday, Sunday, and Sunday. She has a past medical history of diabetes. Source of History: patient Onset: yesterday Position: leg (right) Symptom Intensity: 5/10 Quality: ache Timing: worsening Modifying Factors (Worsening): other (palpation) Associated Symptoms: No fevers, No headache, No cough, No chest pain, No SOB , No nausea, No vomiting, No abdominal pain, No melena, No diarrhea, No urinary symptoms Review of Systems See HPI for pertinent positives & negatives. A total of 10 systems reviewed and were otherwise negative. Past Medical & Surgical Medical Problems: (1) Ac Myocrd Infrct,Oth Inferior Wall,Subseq Epis Car (2) Acute kidney injury (3) Anemia (4) Aortocoronary Bypass (5) Beta-hemolytic group B streptococcal sepsis (6) Bronchopneumonia (7) Cellulitis (8) CHF exacerbation (9) Chronic Kidney Disease, Stage Iii (Moderate) (10) Chronic kidney disease, stage IV (severe) (11) Chronic kidney disease, stage V (12) Coronary artery disease (13) Coronary Atherosclerosis Of [place] Coronary Vessel (14) Diab Qiana Wo Compl, Type Ii Or Unspec Type, Not Uncntrld (15) Diabetes (16) DVT (deep venous thrombosis) (17) Dyspnea (18) 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 (19) ESRD (end stage renal disease) on dialysis (20) Hypertension (21) Hypertension Nos (22) Hypotension (23) Hypoxia (24) Knee Joint Replacement Status (25) Leukocytosis (26) New onset atrial fibrillation (27) NSTEMI (non-ST elevated myocardial infarction) (28) NSTEMI (non-ST elevated myocardial infarction) (29) Old Myocardial Infarct (30) Percutaneous Translum Coron Angioplasty Status (31) Peripheral vascular disease (32) Pneumonia, Organism Nos (33) Positive blood culture (34) Prolonged Q-T interval on ECG (35) Pulmonary embolism (36) Pure Hypercholesterolem (37) Rectal bleeding (38) Sepsis due to infected intravenous catheter (39) Shortness of breath (40) Urin Tract Infection Nos Family History Asthma Cancer SISTER (Breast cancer) Chronic kidney disease MOTHER Diabetes mellitus FATHER Heart disease FATHER Hypertension FATHER MOTHER Kidney disease Kidney stones Stroke Social History Smoking Status: Never Smoker Smokeless Tobacco Use: No Alcohol Use: none Drug Use: none Marital Status: Housing Status: lives alone Occupation Status: retired Current/Historical Medications Scheduled Allopurinol (Zyloprim), 50 MG PO QAM Amiodarone Hcl (Cordarone), 200 MG PO QAM Clopidogrel (Plavix), 75 MG PO HS Multiple Vitamin (Renal Multivitamin Formul), 2 TABS PO QAM Nitroglycerin (Nitrostat), 0.4 MG UT PRN Nutritional Supplements (Colon Formula), 1 CAP PO QAM Pantoprazole (Protonix), 40 MG PO QAM Polyethylene Glycol 3350 (Miralax), 17 GM PO AMPM Rosuvastatin Calcium (Crestor), 10 MG PO HS Sennosides-Docusate Sodium (Stool Softener), 1 TAB PO BID Sevelamer Hydroch (Renagel), 800 MG PO TIDM Warfarin Sodium (Warfarin Sodium), 1 TAB PO QPM Scheduled PRN Ipratropium-Albuterol (Duoneb), 1 TREATMENT INH Q4H PRN for SOB/Wheezing Allergies Coded Allergies: No Known Allergies (Unverified , 04/20/17) Physical Exam Vital Signs Date Time Temp Pulse Resp B/P (MAP) Pulse Ox O2 Delivery O2 Flow Rate FiO2 04/20/17 21:42 68 17 103/42 95 Room Air 04/20/17 20:09 36.6 74 16 105/54 96 Room Air Physical Exam GENERAL: alert, chorionically ill appearing, well nourished, no distress, non- toxic, sitting up in bed EYE EXAM: normal conjunctiva OROPHARYNX: no exudate, no erythema, lips, buccal mucosa, and tongue normal and mucous membranes are moist NECK: supple, no nuchal rigidity, no adenopathy, non-tender LUNGS: Clear to auscultation. Normal chest wall mechanics HEART: Systolic ejection murmur, S1 normal and S2 normal ABDOMEN: abdomen soft, non-tender, normo-active bowel sounds, no masses, no rebound or guarding. BACK: Back is symmetrical on inspection and there is no deformity, no midline tenderness, no CVA tenderness. UPPER EXTREMITIES: upper extremities are grossly normal. LOWER EXTREMITIES: Erythema to the RLE from the ankle tracking to the proximal tibia and tracking to the medial aspect of left thigh. DP 2/4. Gross sensation intact. Two small ulcers to the mid distal ely. NEURO EXAM: Normal sensorium Medical Decision & Procedures Laboratory Results 04/20/17 20:30 Red Blood Count 3.74, Mean Corpuscular Volume 100.8, Mean Corpuscular Hemoglobin 32.1, Mean Corpuscular Hemoglobin Concent 31.8, Mean Platelet Volume 10.1, Neutrophils (%) (Auto) 81.6, Lymphocytes (%) (Auto) 10.0, Monocytes (%) ( Auto) 7.1, Eosinophils (%) (Auto) 0.8, Basophils (%) (Auto) 0.1, Neutrophils # ( Auto) 6.35, Lymphocytes # (Auto) 0.78, Monocytes # (Auto) 0.55, Eosinophils # ( Auto) 0.06, Basophils # (Auto) 0.01 04/20/17 20:30 Test 04/20/17 20:30 White Blood Count 7.78 K/uL (4.8-10.8) Red Blood Count 3.74 M/uL (4.2-5.4) Hemoglobin 12.0 g/dL (12.0-16.0) Hematocrit 37.7 % (37-47) Mean Corpuscular Volume 100.8 fL (80-100) Mean Corpuscular Hemoglobin 32.1 pg (25-34) Mean Corpuscular Hemoglobin Concent 31.8 g/dl (32-36) Platelet Count 135 K/uL (130-400) Mean Platelet Volume 10.1 fL (7.4-10.4) Neutrophils (%) (Auto) 81.6 % Lymphocytes (%) (Auto) 10.0 % Monocytes (%) (Auto) 7.1 % Eosinophils (%) (Auto) 0.8 % Basophils (%) (Auto) 0.1 % Neutrophils # (Auto) 6.35 K/uL (1.4-6.5) Lymphocytes # (Auto) 0.78 K/uL (1.2-3.4) Monocytes # (Auto) 0.55 K/uL (0.11-0.59) Eosinophils # (Auto) 0.06 K/uL (0-0.5) Basophils # (Auto) 0.01 K/uL (0-0.2) RDW Standard Deviation 64.9 fL (36.4-46.3) RDW Coefficient of Variation 18.2 % (11.5-14.5) Immature Granulocyte % (Auto) 0.4 % Immature Granulocyte # (Auto) 0.03 K/uL (0.00-0.02) Anion Gap 6.0 mmol/L (3-11) Est Creatinine Clear Calc Drug Dose 14.7 ml/min Estimated GFR () 17.8 Estimated GFR (Non- 15.3 BUN/Creatinine Ratio 9.6 (10-20) Calcium Level 8.3 mg/dl (8.5-10.1) Laboratory results per my review. Medications Administered Medications (Trade) Dose Ordered Sig/Janeth Route Start Time Stop Time Status Last Admin Dose Admin Cefazolin Sodium (Ancef 1000mg/55 ml D5W) 1,000 mg NOW STAT IV 04/20/17 20:20 04/20/17 20:22 DC 04/20/17 20:32 1,000 MG Vancomycin HCl 1500 mg/Sodium Chloride 530 ml @ 200 mls/hr 2130 IV 04/20/17 21:30 04/21/17 00:08 04/20/17 21:42 200 MLS/HR ED Course ED COURSE: Vital signs were reviewed and showed normal vitals. The patients medical record was reviewed The above diagnostic studies were performed and reviewed. ED treatments and interventions as stated above. 2012: The patient was evaluated in room C7. A complete history and physical examination was performed. 2020: Ordered Cefazolin Sodium 1000 mg IV 2130: Ordered Vancomycin HCl 1500 mg/Sodium Chloride 530 ml @ 200 mls/hr IV 2132: Upon reevaluation, the patient is resting. I discussed my findings with the patient and she understands and agrees with the treatment plan. Based on the patients age, coexisting illnesses, exam and lab findings the decision to treat as an inpatient was made. The patient remained stable while under my care. The patient will be evaluated by Dr. Julio ABDUL, for further management. Medical Decision Differential diagnosis: Etiologies such as cellulitis, abscess, MRSA infection, DVT, necrotizing fasciitis, dermatitis, drug eruption, as well as others were entertained. Patient is an 87-year-old female that presents to the ER for erythema of the right lower extremity tracking up to her right thigh. She notes this has been worsening over the past 24 hours. Patient has no fevers. CBC and BMP were otherwise unchanged from previous. IV was established and patient was given IV antibiotics and admitted to internal medicine with cellulitis the right lower extremity. Medication Reconcilliation Current Medication List: was personally reviewed by me Blood Pressure Screening Patient's blood pressure: Normal blood pressure Blood pressure disposition: Did not require urgent referral Consults Time Called: 2129 Consulting Physician: Dr. Julio ABDUL Returned Call: 2132 I reviewed the patient's case with him. He will evaluate the patient for further management. Impression Primary Impression: Cellulitis Scribe Attestation The scribe's documentation has been prepared under my direction and personally reviewed by me in its entirety. I confirm that the note above accurately reflects all work, treatment, procedures, and medical decision making performed by me. Departure Information Dispostion Being Evaluated By Hospitalist Referrals Cooper Hart M.D. (PCP) Patient Instructions [facility] Problem Qualifiers Primary Impression: Cellulitis Site of cellulitis: extremity Site of cellulitis of extremity: lower extremity Laterality: right Qualified Codes: L03.115 - Cellulitis of right lower limb
[2017-04-21] MEDS ORDERED: GLUCOSE 40% GEL 15 GM TUBE PO PRN (00:15)
[2017-04-21] MEDS ORDERED: GLUCAGON FOR INJ 1 MG VIAL SQ PRN (00:15)
[2017-04-21] MEDS ORDERED: DEXTROSE 50% 50 ML SYR IV PRN (00:15)
[2017-04-21] MEDS ORDERED: GLUCOSE 10 TABS/TUBE PO PRN (00:15)
[2017-04-21] MEDS: CEFTRIAXONE SOD INJ 1 GM in DEXTROSE 5% ADD-VANTAGE 50ML 50 ML IV SCH ×2 (01:10→22:58)
[2017-04-21] MEDS ORDERED: ROCEPHIN PHARMACY CONSULT IN PROGRESS PRN (03:30)
[2017-04-21 05:57] LABS: HEMATOCRIT 34.2 % (37-47); MEAN CELL VOLUME 100.3 fL (80-100); MEAN CORPUSCULAR HGB CONC 31.9 g/dl (32-36); PLATELET COUNT 128 K/uL (130-400); RED BLOOD COUNT 3.41 M/uL (4.2-5.4); WHITE BLOOD COUNT 8.37 K/uL (4.8-10.8)
[2017-04-21 06:05] LABS: INR 1.9 (0.9-1.1); PROTHROMBIN TIME (PATIENT) 21.2 SECONDS (9.0-12.0)
[2017-04-21 07:36] VITALS: BP 131/58; PULSE 68; TEMP 36.5; O2SAT 99
[2017-04-21] MEDS: POLYETHYLENE (MIRALAX) 17 GM PACK PO PRN ×2 (08:07→20:51)
[2017-04-21] MEDS: ALLOPURINOL 100 MG TAB PO SCH (08:08)
[2017-04-21] MEDS: SEVELAMER HYDROCH 800 MG TAB PO SCH ×3 (08:09→17:21)
[2017-04-21] MEDS: AMIODARONE 200 MG TAB PO SCH (08:09)
[2017-04-21] MEDS: PANTOprazole SOD 40 MG TAB PO SCH (08:09)
[2017-04-21] MEDS: DOCUSATE SODIUM/SENNA 50/8.6MG TAB PO SCH ×2 (08:09→20:46)
[2017-04-21] MEDS: MULTIVITAMIN TAB PO SCH (08:09)
[2017-04-21] MEDS: INSULIN ASPART 100 UNITS/ML 3 ML PEN SC SCH ×4 (08:10→20:47)
--- NOTE | 2017-04-21 10:54 | Hospitalist Progress Note ---
Hospitalist Progress Note Date of Service Apr 21, 2017. Subjective Pt evaluation today including: conversation w/ patient, conversation w/ family , physical exam Feeling much better, RLE erythema and pain much improved already overnight. No CP/no SOB over her baseline, no abd pain, no diarrhea, no LUE pain. All Other Systems: Reviewed and Negative Objective Vital Signs Date Time Temp Pulse Resp B/P (MAP) Pulse Ox O2 Delivery O2 Flow Rate FiO2 04/21/17 07:36 36.5 68 16 131/58 (82) 99 Nasal Cannula 2.0 04/20/17 23:28 37.0 72 18 115/61 95 Nasal Cannula 2.0 04/20/17 22:12 68 17 103/42 95 04/20/17 21:42 68 17 103/42 95 Room Air 04/20/17 20:09 36.6 74 16 105/54 96 Room Air Physical Exam General Appearance: WD/WN, no apparent distress Eyes: normal inspection, sclerae normal ENT: hearing grossly normal Neck: trachea midline Respiratory/Chest: lungs clear, normal breath sounds, no respiratory distress, no accessory muscle use Cardiovascular: regular rate, rhythm, no edema, no murmur Abdomen: normal bowel sounds, non tender, soft Extremities: + pertinent finding (RLE with erythema from prox inner thigh and down to ankle but is significantly receded from the marker line) Neurologic/Psychiatric: alert Skin: + pertinent finding (multiple diffuse ecchymotic lesions on arms and legs ) Laboratory Results Last 24 Hours Test 04/20/17 20:30 04/21/17 05:34 04/21/17 07:46 04/21/17 08:35 White Blood Count 7.78 K/uL 8.37 K/uL Red Blood Count 3.74 M/uL 3.41 M/uL Hemoglobin 12.0 g/dL 10.9 g/dL Hematocrit 37.7 % 34.2 % Mean Corpuscular Volume 100.8 fL 100.3 fL Mean Corpuscular Hemoglobin 32.1 pg 32.0 pg Mean Corpuscular Hemoglobin Concent 31.8 g/dl 31.9 g/dl Platelet Count 135 K/uL 128 K/uL Mean Platelet Volume 10.1 fL 10.0 fL Neutrophils (%) (Auto) 81.6 % Lymphocytes (%) (Auto) 10.0 % Monocytes (%) (Auto) 7.1 % Eosinophils (%) (Auto) 0.8 % Basophils (%) (Auto) 0.1 % Neutrophils # (Auto) 6.35 K/uL Lymphocytes # (Auto) 0.78 K/uL Monocytes # (Auto) 0.55 K/uL Eosinophils # (Auto) 0.06 K/uL Basophils # (Auto) 0.01 K/uL RDW Standard Deviation 64.9 fL 65.1 fL RDW Coefficient of Variation 18.2 % 17.9 % Immature Granulocyte % (Auto) 0.4 % Immature Granulocyte # (Auto) 0.03 K/uL Sodium Level 139 mmol/L Potassium Level 3.5 mmol/L Chloride Level 99 mmol/L Carbon Dioxide Level 34 mmol/L Anion Gap 6.0 mmol/L Blood Urea Nitrogen 26 mg/dl Creatinine 2.70 mg/dl Est Creatinine Clear Calc Drug Dose 14.7 ml/min Estimated GFR () 17.8 Estimated GFR (Non- 15.3 BUN/Creatinine Ratio 9.6 Random Glucose 170 mg/dl Calcium Level 8.3 mg/dl Prothrombin Time 21.2 SECONDS Prothromb Time International Ratio 1.9 Bedside Glucose 95 mg/dl Vitamin B12 Level 432 pg/mL Folate > 24.00 ng/mL Assessment and Plan Ms. Rahman is an 86 y/o female with Hx ESRD on HD, CAD, PAF, chronic systolic CHF, Aortic Stenosis, Mitral Regurg, suspected left subclavian steal syndrome, Anemia of Chronic Disease with H/O GI Bleed (September 2016), DMII, HTN, HPL, recent LLE DVT - on Coumadin. Pt developed redness, pain and swelling of her RLE over the past day. She denies a fever or rigors. Denies CP, SOB, N/V/D. She underwent dialysis earlier on the day of admission. She was discharged about one month ago on IV Vanc for GBS bacteremia. 1) RLE Cellulitis - extensive although she does not currently meet SIRS criteria - considering her comorbidities and rapid spread of the infection, she was admitted and placed on antibiotics. No BCxs were drawn at time of admission prior to giving abx as she was not septic. Much improved already -continue Vanc and Ceftriaxone and observe for continued clinical improvement 2) DMII with h/o hypoglycemia-was taken off DM meds last admission - placed on SS, glucose checks 3) CAD/PAF/Aortic Stenosis/Mitral Regurg/suspected left subclavian steal syndrome/Chronic systolic CHF - no evidence of ACS. Was evaluated by Vascular in past and there was talk of possible intervention of SS syndrome but pt hesitant. Last ECHO 03/2017 with: * Mildly dilated left ventricle with moderately reduced systolic function. EF 35-40%. Akinesis of the mid to distal inferior wall, mid septum, mid anteroseptum. Severe hypokinesis of the base and distal septum, basal konrad septum, and basal inferior wall. Otherwise, global mild hypokinesis, sparing the inferolateral base. Moderate concentric left ventricular hypertrophy. * Moderately dilated right ventricle with mildly reduced systolic function. * 2. The left atrium is moderately dilated. * 3. The right atrium is mildly dilated. * 4. Aortic stenosis appears to be significant visually but transvalvular velocities and gradients suggest only mild stenosis, which may be underestimated due to reduced LV systolic function. * 5. At least mild mitral regurgitation (not fully interrogated). * 6. Pleural effusion. * 7. Mildly elevated estimated right ventricular systolic pressure; 41 mmHg. * 8. Limited 2D echo with color Doppler and spectral Doppler. * 9. Compared to prior study on 01/11/2017, LV systolic function is now moderately reduced with wall motion abnormalities as described. Mitral regurgitation was not fully interrogated on this limited study. - cont Statin, Imdur - currently anticoagulated with Coumadin -follow INR which was low today at 1.9 -continue amiodarone -continue Plavix -watch for acute CHF 4) ESRD on HD - Due for dialysis Mon - cont Sevelamer, Renovite, renal diet -will consult Nephrology -renally dose meds 5) H/o L Leg DVT: resolving on US in March/2017 -continue coumadin for PAF anyway and tx of DVT 6) Anemia of Chronic Disease with H/O GI Bleed (September 2016): current hgb 10.9 with macrocytosis -check B12, folate--> both normal -follow CBC -Nephro managing as well Code Status: FULL CODE??? Disposition:
--- NOTE | 2017-04-21 12:39 | Nephrology Consultation ---
Nephrology Consultation Date & Providers Date of Consultation: Apr 21, 2017. Primary Care Provider: Cooper Hart M.D. Referring Provider: Reason for Consultation HD patient admitted with RLE cellulitis History of Present Illness Ms. Rahman is an 87 year old white female who is seen at the request of Dr. Chandra to provide inpatient HD and assist w/ medical management. Medical records in the hospital EMR were reviewed and are summarized as follows: Ms. Rahman has ESRD due to cardiorenal syndrome w/ recurrent CHF. She has been on HD since 05/19. She currently dialyzes MWF at [facility] (HD Rx: 4 hr 2K 2Ca F-160 EDW 73.8 kg Heparin 2000 bolus hourly). Her PMH is also significant for long-standing AODM, HTN, PVD w/ bilateral carotid arterial disease, ASCVD s/p CABG x 4 1996 and OA. In 1996 patient suffered an episode of angina. Cardiac catheterization revealed RCA stenosis. Patient required angioplasty with stenting. Post procedure she developed a pseudoaneurysm with a large right groin hematoma which required emergency surgical repair. Due to her ASCVD Ms. Rahman has been on chronic ASA and Plavix therapy. She was hospitalized 09/19 with severe LGI bleeding requiring transfusion w/ 4 U PRBC. In 01/17 she was admitted w/ LLE DVT. Her hospitalization was complicated by infiltration of her L upper arm AVF. She developed a large hematoma and she has required several IJ THC to allow her AVF hematoma to resolve. Yesterday after returning home from dialysis Ms. Rahman complained of RLE pain. She was seen by her PCP and a RLE doppler was performed. No DVT was identified. Patient was diagnosed w/ cellulitis and admitted for IV antibiotic therapy. Past Medical/Surgical History Medical: # ASCVD s/p CABG x 4 1996 # Cardiac cath 2006 complicated by pseudoaneurysm of the right femoral artery requiring emergency surgical repair # AODM # HTN # PVD - carotid stenosis # h/o nephrolithiasis # Cholelithiasis # LGI bleed 09/19 Surgical: # h/o R and L IJ THC insertion # AVF creation # R femoral artery pseudoaneurysm repair Allergies Coded Allergies: No Known Allergies (Unverified , 04/20/17) Inpatient Medications Current Inpatient Medications Medications (Trade) Dose Ordered Sig/Janeth Route Start Time Stop Time Status Last Admin Dose Admin Allopurinol (Zyloprim Tab) 50 mg QAM PO 04/21/17 08:00 05/21/17 08:59 04/21/17 08:08 50 MG Amiodarone HCl (Cordarone Tab) 200 mg QAM PO 04/21/17 08:00 05/21/17 08:59 04/21/17 08:09 200 MG Clopidogrel Bisulfate (plAVix TAB) 75 mg HS PO 04/21/17 21:00 05/21/17 20:59 Albuterol/ Ipratropium (Duoneb) 3 ml Q6H PRN INH 04/20/17 22:00 05/20/17 21:59 Multivitamins (Multivitamin Tab) 2 tab QAM PO 04/21/17 08:00 05/21/17 08:59 04/21/17 08:09 2 TAB Nitroglycerin (Nitrostat Tab) 0.4 mg PRN UT 04/20/17 22:00 05/20/17 21:59 Pantoprazole Sodium (Protonix Tab) 40 mg QAM PO 04/21/17 08:00 05/21/17 08:59 04/21/17 08:09 40 MG Rosuvastatin Calcium (Crestor Tab) 10 mg HS PO 04/21/17 21:00 05/21/17 20:59 Senna/Docusate Sodium (Senokot S Tab) 1 tab BID PO 04/21/17 08:00 05/21/17 08:59 04/21/17 08:09 1 TAB Sevelamer HCl (Renagel Tab) 800 mg TIDM PO 04/21/17 08:00 05/21/17 07:59 04/21/17 12:17 800 MG Warfarin Sodium (Coumadin Tab) 2 mg DAILY@1600 PO 04/21/17 16:00 05/21/17 15:59 Acetaminophen (Tylenol Tab) 650 mg Q4H PRN PO 04/20/17 22:00 05/20/17 21:59 Polyethylene (Miralax Powder Packet) 17 gm DAILY PRN PO 04/20/17 22:00 05/20/17 21:59 04/21/17 08:07 17 GM Ondansetron HCl (Zofran Inj) 4 mg Q6H PRN IV 04/20/17 22:00 05/20/17 21:59 Ceftriaxone Sodium 1 gm/ Dextrose 50 ml @ 100 mls/hr Q24H IV 04/20/17 23:00 04/30/17 22:59 04/21/17 01:10 100 MLS/HR Insulin Aspart (novoLOG ASPART) SLIDING SCALE G... ACHS SC 04/21/17 06:30 05/21/17 06:29 Glucose (Glucose 40% Gel) 15-30 GRAMS 15 GRAMS... UD PRN PO 04/21/17 00:15 05/21/17 00:14 Glucose (Glucose Chew Tab) 4-8 Tablets 4 Tabl... UD PRN PO 04/21/17 00:15 05/21/17 00:14 Dextrose (Dextrose 50% 50ML Syringe) 25-50ML OF 50% DW IV FOR... UD PRN IV 04/21/17 00:15 05/21/17 00:14 Glucagon (Glucagon Inj) 1 mg UD PRN SQ 04/21/17 00:15 05/21/17 00:14 Miscellaneous Information 1 ea UD PRN N/A 04/21/17 03:30 05/21/17 03:29 Family History Asthma Cancer SISTER (Breast cancer) Chronic kidney disease MOTHER Diabetes mellitus FATHER Heart disease FATHER Hypertension FATHER MOTHER Kidney disease Kidney stones Stroke Negative for CKD/ESRD Social History Smoking Status: Never Smoker Smokeless Tobacco Use: No Drug Use: none Marital Status: Housing Status: lives with family Occupation: retired . Retired. Never a smoker. Review of Systems Constitutional: No fever Respiratory: No shortness of breath Cardiovascular: No chest pain Abdomen: No pain, No nausea, No vomiting Integumentary: + rash A complete review of systems was performed. Pertinent positives are noted above. All other systems are negative. Physical Exam Date Time Temp Pulse Resp B/P (MAP) Pulse Ox O2 Delivery O2 Flow Rate FiO2 04/21/17 07:36 36.5 68 16 131/58 (82) 99 Nasal Cannula 2.0 04/20/17 23:28 37.0 72 18 115/61 95 Nasal Cannula 2.0 04/20/17 22:12 68 17 103/42 95 04/20/17 21:42 68 17 103/42 95 Room Air 04/20/17 20:09 36.6 74 16 105/54 96 Room Air General Appearance: no apparent distress Head: normocephalic, atraumatic Eyes: PERRL, EOMI Neck: no adenopathy, + pertinent finding (L IJ THC with clean dry dressing in place) Respiratory/Chest: lungs clear Cardiovascular: regular rate, rhythm Abdomen/GI: normal bowel sounds, non tender, soft Extremities/Musculoskelatal: + pertinent finding (LUE AVF + bruit, RLE has been marked by RN. Cellulitis appears markedly improved) Neurologic/Psych: alert, oriented x 3 Laboratory Results Last 24 Hours Test 04/20/17 20:30 04/21/17 05:34 04/21/17 07:46 04/21/17 08:35 White Blood Count 7.78 K/uL 8.37 K/uL Red Blood Count 3.74 M/uL 3.41 M/uL Hemoglobin 12.0 g/dL 10.9 g/dL Hematocrit 37.7 % 34.2 % Mean Corpuscular Volume 100.8 fL 100.3 fL Mean Corpuscular Hemoglobin 32.1 pg 32.0 pg Mean Corpuscular Hemoglobin Concent 31.8 g/dl 31.9 g/dl Platelet Count 135 K/uL 128 K/uL Mean Platelet Volume 10.1 fL 10.0 fL Neutrophils (%) (Auto) 81.6 % Lymphocytes (%) (Auto) 10.0 % Monocytes (%) (Auto) 7.1 % Eosinophils (%) (Auto) 0.8 % Basophils (%) (Auto) 0.1 % Neutrophils # (Auto) 6.35 K/uL Lymphocytes # (Auto) 0.78 K/uL Monocytes # (Auto) 0.55 K/uL Eosinophils # (Auto) 0.06 K/uL Basophils # (Auto) 0.01 K/uL RDW Standard Deviation 64.9 fL 65.1 fL RDW Coefficient of Variation 18.2 % 17.9 % Immature Granulocyte % (Auto) 0.4 % Immature Granulocyte # (Auto) 0.03 K/uL Sodium Level 139 mmol/L Potassium Level 3.5 mmol/L Chloride Level 99 mmol/L Carbon Dioxide Level 34 mmol/L Anion Gap 6.0 mmol/L Blood Urea Nitrogen 26 mg/dl Creatinine 2.70 mg/dl Est Creatinine Clear Calc Drug Dose 14.7 ml/min Estimated GFR () 17.8 Estimated GFR (Non- 15.3 BUN/Creatinine Ratio 9.6 Random Glucose 170 mg/dl Calcium Level 8.3 mg/dl Prothrombin Time 21.2 SECONDS Prothromb Time International Ratio 1.9 Bedside Glucose 95 mg/dl Vitamin B12 Level 432 pg/mL Folate > 24.00 ng/mL Test 04/21/17 11:40 Bedside Glucose 139 mg/dl Impression (1) Cellulitis (2) ESRD (end stage renal disease) on dialysis (3) Hypertension (4) Anemia (5) Peripheral vascular disease Ms. Rahman was admitted to the hospital for IV antibiotic therapy to treat RLE cellulitis. She has ESRD requiring MWF HD Recommendations END STAGE RENAL DISEASE: -- Volume status and electrolyte balance are acceptable at this time -- Will schedule next HD for Sunday ANEMIA: -- Will provide RANJAN w/ HD ID: -- Vancomycin can be given 1 g weekly IV due to ESRD -- No dose adjustment required for Ceftriaxone therapy
[2017-04-21 15:20] VITALS: BP 120/60; PULSE 67; TEMP 36.6; O2SAT 93
[2017-04-21] MEDS ORDERED: WARFARIN SOD 2 MG TAB PO SCH (16:00)
[2017-04-21] MEDS: ROSUVASTATIN CALCIUM 10 MG TAB PO SCH (20:46)
[2017-04-21] MEDS: CLOPIDOGREL BISULFATE 75 MG TAB PO SCH (20:47)
[2017-04-21 23:13] VITALS: BP 132/60; PULSE 67; TEMP 36.6; O2SAT 99
[2017-04-22 05:51] LABS: BASO % 0.1 %; BASO ABS # 0.01 K/uL (0-0.2); COMPLETE YES; EOS % 1.8 %; IG% 0.1 %; LYMPH % 15.5 %; LYMPH ABS # 1.04 K/uL (1.2-3.4); MEAN CORPUSCULAR HEMOGLOBIN 30.6 pg (25-34); MEAN CORPUSCULAR HGB CONC 30.6 g/dl (32-36); MONO % 10.9 %; NEUT % 71.6 %; PLATELET COUNT 136 K/uL (130-400); WHITE BLOOD COUNT 6.71 K/uL (4.8-10.8)
[2017-04-22 06:26] LABS: INR 1.7 (0.9-1.1); PROTHROMBIN TIME (PATIENT) 18.4 SECONDS (9.0-12.0)
[2017-04-22 06:29] LABS: BUN/CREATININE RATIO 11.6 (10-20); CALCIUM 8.7 mg/dl (8.5-10.1); CREATININE 4.1 mg/dl (0.60-1.20); POTASSIUM 3.8 mmol/L (3.5-5.1)
[2017-04-22 07:32] VITALS: BP 131/65; PULSE 68; TEMP 36.6; O2SAT 89
[2017-04-22 07:42] VITALS: O2SAT 93
[2017-04-22] MEDS: AMIODARONE 200 MG TAB PO SCH (07:45)
[2017-04-22] MEDS: ALLOPURINOL 100 MG TAB PO SCH (07:45)
[2017-04-22] MEDS: SEVELAMER HYDROCH 800 MG TAB PO SCH ×3 (07:45→17:24)
[2017-04-22] MEDS: PANTOprazole SOD 40 MG TAB PO SCH (07:45)
[2017-04-22] MEDS: MULTIVITAMIN TAB PO SCH (07:46)
[2017-04-22] MEDS: DOCUSATE SODIUM/SENNA 50/8.6MG TAB PO SCH ×2 (07:46→20:37)
[2017-04-22] MEDS: POLYETHYLENE (MIRALAX) 17 GM PACK PO PRN (07:48)
[2017-04-22] MEDS: INSULIN ASPART 100 UNITS/ML 3 ML PEN SC SCH ×4 (07:53→20:38)
--- NOTE | 2017-04-22 10:46 | Nephrology Progress Note ---
Nephrology Progress Note Date of Service Apr 22, 2017. Chief Complaint HD patient admitted with RLE cellulitis Subjective Ms. Rahman was seen & examined in her hospital room this morning. Her RLE cellulitis is markedly improved. She currently denies fever, angina or dyspnea. Review of Systems Constitutional: No fever Cardiovascular: No angina Respiratory: No dyspnea at rest Abdomen: No pain, No nausea, No vomiting Extremities: + leg edema A complete review of systems was performed. Pertinent positives are noted above. All other systems are negative. Vital Signs Last 8 Hrs Date Time Temp Pulse Resp B/P (MAP) Pulse Ox O2 Delivery O2 Flow Rate FiO2 04/22/17 07:53 Room Air 04/22/17 07:42 93 Room Air 04/22/17 07:32 36.6 68 131/65 (87) 89 Last Recorded Weight Weight (Kilograms): 74.100 Physical Exam General Appearance: no apparent distress Head: normocephalic, atraumatic Eyes: PERRL, EOMI Neck: supple, no adenopathy, + pertinent finding (IJ THC with clean, dry dressing in place) Respiratory/Chest: lungs clear, no respiratory distress Cardiovascular: regular rate, rhythm Abdomen/GI: normal bowel sounds, non tender, soft Extremities/Musculoskelatal: + swelling (trace to 1+ pretibial pitting edema. RLE cellulitis is markedly improved. LUE AVF + bruit) Neurologic/Psych: alert, oriented x 3 Family History Asthma Cancer SISTER (Breast cancer) Chronic kidney disease MOTHER Diabetes mellitus FATHER Heart disease FATHER Hypertension FATHER MOTHER Kidney disease Kidney stones Stroke Negative for CKD/ESRD Social History Smoking Status: Never smoker Smokeless Tobacco Use: No Drug Use: none Marital Status: Housing Status: lives with family Occupation: retired . Retired. Never a smoker. Laboratory Results Past 24 Hours 04/22/17 05:32 Red Blood Count 3.50, Mean Corpuscular Volume 100.0, Mean Corpuscular Hemoglobin 30.6, Mean Corpuscular Hemoglobin Concent 30.6, Mean Platelet Volume 10.0, Neutrophils (%) (Auto) 71.6, Lymphocytes (%) (Auto) 15.5, Monocytes (%) ( Auto) 10.9, Eosinophils (%) (Auto) 1.8, Basophils (%) (Auto) 0.1, Neutrophils # (Auto) 4.80, Lymphocytes # (Auto) 1.04, Monocytes # (Auto) 0.73, Eosinophils # ( Auto) 0.12, Basophils # (Auto) 0.01 04/22/17 05:32 Test 04/21/17 11:40 04/21/17 16:34 04/21/17 20:29 04/22/17 05:32 Bedside Glucose 139 mg/dl (70-90) 114 mg/dl (70-90) 115 mg/dl (70-90) White Blood Count 6.71 K/uL (4.8-10.8) Red Blood Count 3.50 M/uL (4.2-5.4) Hemoglobin 10.7 g/dL (12.0-16.0) Hematocrit 35.0 % (37-47) Mean Corpuscular Volume 100.0 fL (80-100) Mean Corpuscular Hemoglobin 30.6 pg (25-34) Mean Corpuscular Hemoglobin Concent 30.6 g/dl (32-36) Platelet Count 136 K/uL (130-400) Mean Platelet Volume 10.0 fL (7.4-10.4) Neutrophils (%) (Auto) 71.6 % Lymphocytes (%) (Auto) 15.5 % Monocytes (%) (Auto) 10.9 % Eosinophils (%) (Auto) 1.8 % Basophils (%) (Auto) 0.1 % Neutrophils # (Auto) 4.80 K/uL (1.4-6.5) Lymphocytes # (Auto) 1.04 K/uL (1.2-3.4) Monocytes # (Auto) 0.73 K/uL (0.11-0.59) Eosinophils # (Auto) 0.12 K/uL (0-0.5) Basophils # (Auto) 0.01 K/uL (0-0.2) RDW Standard Deviation 63.8 fL (36.4-46.3) RDW Coefficient of Variation 17.7 % (11.5-14.5) Immature Granulocyte % (Auto) 0.1 % Immature Granulocyte # (Auto) 0.01 K/uL (0.00-0.02) Prothrombin Time 18.4 SECONDS (9.0-12.0) Prothromb Time International Ratio 1.7 (0.9-1.1) Anion Gap 7.0 mmol/L (3-11) Est Creatinine Clear Calc Drug Dose 9.7 ml/min Estimated GFR () 10.7 Estimated GFR (Non- 9.3 BUN/Creatinine Ratio 11.6 (10-20) Calcium Level 8.7 mg/dl (8.5-10.1) Test 04/22/17 07:39 Bedside Glucose 117 mg/dl (70-90) Allergies Coded Allergies: No Known Allergies (Unverified , 04/20/17) Medications Current Inpatient Medications Medications (Trade) Dose Ordered Sig/Janeth Route Start Time Stop Time Status Last Admin Dose Admin Allopurinol (Zyloprim Tab) 50 mg QAM PO 04/21/17 08:00 05/21/17 08:59 04/22/17 07:45 50 MG Amiodarone HCl (Cordarone Tab) 200 mg QAM PO 04/21/17 08:00 05/21/17 08:59 04/22/17 07:45 200 MG Clopidogrel Bisulfate (plAVix TAB) 75 mg HS PO 04/21/17 21:00 05/21/17 20:59 04/21/17 20:47 75 MG Albuterol/ Ipratropium (Duoneb) 3 ml Q6H PRN INH 04/20/17 22:00 05/20/17 21:59 Multivitamins (Multivitamin Tab) 2 tab QAM PO 04/21/17 08:00 05/21/17 08:59 04/22/17 07:46 2 TAB Nitroglycerin (Nitrostat Tab) 0.4 mg PRN UT 04/20/17 22:00 05/20/17 21:59 Pantoprazole Sodium (Protonix Tab) 40 mg QAM PO 04/21/17 08:00 05/21/17 08:59 04/22/17 07:45 40 MG Rosuvastatin Calcium (Crestor Tab) 10 mg HS PO 04/21/17 21:00 05/21/17 20:59 04/21/17 20:46 10 MG Senna/Docusate Sodium (Senokot S Tab) 1 tab BID PO 04/21/17 08:00 05/21/17 08:59 04/22/17 07:46 1 TAB Sevelamer HCl (Renagel Tab) 800 mg TIDM PO 04/21/17 08:00 05/21/17 07:59 04/22/17 07:45 800 MG Warfarin Sodium (Coumadin Tab) 2 mg DAILY@1600 PO 04/21/17 16:00 05/21/17 15:59 04/21/17 17:22 2 MG Acetaminophen (Tylenol Tab) 650 mg Q4H PRN PO 04/20/17 22:00 05/20/17 21:59 Polyethylene (Miralax Powder Packet) 17 gm DAILY PRN PO 04/20/17 22:00 05/20/17 21:59 04/22/17 07:48 17 GM Ondansetron HCl (Zofran Inj) 4 mg Q6H PRN IV 04/20/17 22:00 05/20/17 21:59 Ceftriaxone Sodium 1 gm/ Dextrose 50 ml @ 100 mls/hr Q24H IV 04/20/17 23:00 04/30/17 22:59 04/21/17 22:58 100 MLS/HR Insulin Aspart (novoLOG ASPART) SLIDING SCALE G... ACHS SC 04/21/17 06:30 05/21/17 06:29 Glucose (Glucose 40% Gel) 15-30 GRAMS 15 GRAMS... UD PRN PO 04/21/17 00:15 05/21/17 00:14 Glucose (Glucose Chew Tab) 4-8 Tablets 4 Tabl... UD PRN PO 04/21/17 00:15 05/21/17 00:14 Dextrose (Dextrose 50% 50ML Syringe) 25-50ML OF 50% DW IV FOR... UD PRN IV 04/21/17 00:15 05/21/17 00:14 Glucagon (Glucagon Inj) 1 mg UD PRN SQ 04/21/17 00:15 05/21/17 00:14 Miscellaneous Information 1 ea UD PRN N/A 04/21/17 03:30 05/21/17 03:29 Impression (1) Cellulitis (2) ESRD (end stage renal disease) on dialysis (3) Hypertension (4) Anemia (5) Peripheral vascular disease Ms. Rahman was admitted to the hospital for IV antibiotic therapy to treat RLE cellulitis. She has ESRD requiring MWF HD Recommendations END STAGE RENAL DISEASE: -- Volume status and electrolyte balance are acceptable at this time -- Will schedule next HD for Sunday. Orders entered into EMR and HD RN notified ANEMIA: -- Will provide RANJAN w/ HD ID: -- Vancomycin can be given 1 g weekly IV due to ESRD -- No dose adjustment required for Ceftriaxone therapy -- Consider transitioning to oral antibiotic therapy
[2017-04-22] MEDS ORDERED: NURSING VERBAL MED ORDER ONE (11:15)
--- NOTE | 2017-04-22 11:41 | Hospitalist Progress Note ---
Hospitalist Progress Note Date of Service Apr 22, 2017. Subjective Pt evaluation today including: conversation w/ patient, conversation w/ family , physical exam Pt doing well, wants her miralax increased to bid but is moving her bowels. No CP or SOB. Leg feeling much better, afebrile All Other Systems: Reviewed and Negative Objective Vital Signs Date Time Temp Pulse Resp B/P (MAP) Pulse Ox O2 Delivery O2 Flow Rate FiO2 04/22/17 07:53 Room Air 04/22/17 07:42 93 Room Air 04/22/17 07:32 36.6 68 131/65 (87) 89 04/22/17 00:41 Room Air 04/21/17 23:13 36.6 67 20 132/60 (84) 99 Room Air 04/21/17 19:57 Room Air 04/21/17 15:20 36.6 67 18 120/60 (80) 93 Room Air 04/21/17 15:14 Room Air Physical Exam General Appearance: WD/WN, no apparent distress (sitting in chair) Eyes: normal inspection, sclerae normal ENT: hearing grossly normal Neck: trachea midline Respiratory/Chest: no respiratory distress, no accessory muscle use, + crackles (faint at bases bilat) Cardiovascular: regular rate, rhythm, + systolic murmur (3/6 high-pitched at RUSB), + pertinent finding (LUE AVF in place, Left anterior chest with TIJ in place c/d/i) Abdomen: normal bowel sounds, non tender, soft Extremities: + swelling (trace pitting edema to knees bilat), + pertinent finding (RLE with markedly improved cellulitis from rt medial thigh to right ankle, only remaining erythema is now in distal right leg) Neurologic/Psychiatric: alert, normal mood/affect, oriented x 3 Skin: warm/dry Laboratory Results Last 24 Hours Test 04/21/17 11:40 04/21/17 16:34 04/21/17 20:29 04/22/17 05:32 Bedside Glucose 139 mg/dl 114 mg/dl 115 mg/dl White Blood Count 6.71 K/uL Red Blood Count 3.50 M/uL Hemoglobin 10.7 g/dL Hematocrit 35.0 % Mean Corpuscular Volume 100.0 fL Mean Corpuscular Hemoglobin 30.6 pg Mean Corpuscular Hemoglobin Concent 30.6 g/dl Platelet Count 136 K/uL Mean Platelet Volume 10.0 fL Neutrophils (%) (Auto) 71.6 % Lymphocytes (%) (Auto) 15.5 % Monocytes (%) (Auto) 10.9 % Eosinophils (%) (Auto) 1.8 % Basophils (%) (Auto) 0.1 % Neutrophils # (Auto) 4.80 K/uL Lymphocytes # (Auto) 1.04 K/uL Monocytes # (Auto) 0.73 K/uL Eosinophils # (Auto) 0.12 K/uL Basophils # (Auto) 0.01 K/uL RDW Standard Deviation 63.8 fL RDW Coefficient of Variation 17.7 % Immature Granulocyte % (Auto) 0.1 % Immature Granulocyte # (Auto) 0.01 K/uL Prothrombin Time 18.4 SECONDS Prothromb Time International Ratio 1.7 Sodium Level 139 mmol/L Potassium Level 3.8 mmol/L Chloride Level 101 mmol/L Carbon Dioxide Level 31 mmol/L Anion Gap 7.0 mmol/L Blood Urea Nitrogen 48 mg/dl Creatinine 4.10 mg/dl Est Creatinine Clear Calc Drug Dose 9.7 ml/min Estimated GFR () 10.7 Estimated GFR (Non- 9.3 BUN/Creatinine Ratio 11.6 Random Glucose 135 mg/dl Calcium Level 8.7 mg/dl Test 04/22/17 07:39 Bedside Glucose 117 mg/dl Assessment and Plan Ms. Rahman is an 86 y/o female with Hx ESRD on HD, CAD, PAF, chronic systolic CHF, Aortic Stenosis, Mitral Regurg, suspected left subclavian steal syndrome, Anemia of Chronic Disease with H/O GI Bleed (September 2016), DMII, HTN, HPL, recent LLE DVT - on Coumadin. Pt developed redness, pain and swelling of her RLE over the past day. She denies a fever or rigors. Denies CP, SOB, N/V/D. She underwent dialysis earlier on the day of admission. She was discharged about one month ago on IV Vanc for GBS bacteremia. 1) RLE Cellulitis - extensive although she does not currently meet SIRS criteria - considering her comorbidities and rapid spread of the infection, she was admitted and placed on antibiotics. No BCxs were drawn at time of admission prior to giving abx as she was not septic. Much improved already. Received 1 dose Vanc 1500mg on 04/20. Markedly improved after 2 days of IV abx -continue Vanc with HD if random Vanc level<17 -check Vanc trough in AM -continue daily Ceftriaxone -could potentially dc to home after HD tomorrow on po abc--> no cultures so would cover for strep and Staph/MRSA given multiple hospitalizations/risk of MRSA (although no h/o MRSA and MRSA nasal swab neg 1 month ago) 2) DMII with h/o hypoglycemia-was taken off DM meds last admission. Very well controlled here, not needing insulin - placed on SS, glucose checks 3) CAD/PAF/Aortic Stenosis/Mitral Regurg/suspected left subclavian steal syndrome/Chronic systolic CHF - no evidence of ACS. Was evaluated by Vascular in past and there was talk of possible intervention of SS syndrome but pt hesitant. No acute issues at this time Last ECHO 03/2017 with: * Mildly dilated left ventricle with moderately reduced systolic function. EF 35-40%. Akinesis of the mid to distal inferior wall, mid septum, mid anteroseptum. Severe hypokinesis of the base and distal septum, basal konrad septum, and basal inferior wall. Otherwise, global mild hypokinesis, sparing the inferolateral base. Moderate concentric left ventricular hypertrophy. * Moderately dilated right ventricle with mildly reduced systolic function. * 2. The left atrium is moderately dilated. * 3. The right atrium is mildly dilated. * 4. Aortic stenosis appears to be significant visually but transvalvular velocities and gradients suggest only mild stenosis, which may be underestimated due to reduced LV systolic function. * 5. At least mild mitral regurgitation (not fully interrogated). * 6. Pleural effusion. * 7. Mildly elevated estimated right ventricular systolic pressure; 41 mmHg. * 8. Limited 2D echo with color Doppler and spectral Doppler. * 9. Compared to prior study on 01/11/2017, LV systolic function is now moderately reduced with wall motion abnormalities as described. Mitral regurgitation was not fully interrogated on this limited study. - cont Statin -was started on Imdur during hospitalization in January for recurrent angina, but then it seems to have dropped off her med list at subsequent admission in March 2017--> was hypotensive at that time so will not add it back on - currently anticoagulated with Coumadin -follow INR which was lower today at 1.7 -increase coumadin dose today to 3mg daily -continue amiodarone -continue Plavix -watch for acute CHF 4) ESRD on HD - Due for dialysis Mon. Has ongoing issue with infiltrated AVF from 3 months ago, currently using AVF partially along with left TIJ for HD access - cont Sevelamer, Renagel, renal diet -will consult Nephrology for HD and medical management-recommendations appreciated -renally dose meds 5) H/o L Leg DVT: resolving on US in March/2017 -continue coumadin for PAF anyway and tx of DVT 6) Anemia of Chronic Disease with H/O GI Bleed (September 2016): current hgb 10.9 with macrocytosis -check B12, folate--> both normal -follow CBC -Nephro managing as well with Epo Code Status: DNR/DNI as per discussion with pt Disposition: to home likely Sunday
[2017-04-22 15:47] VITALS: BP 134/72; PULSE 65; TEMP 36.5; O2SAT 96
[2017-04-22] MEDS: WARFARIN SOD 3 MG TAB PO SCH (17:25)
[2017-04-22] MEDS: POLYETHYLENE (MIRALAX) 17 GM PACK PO SCH (20:00)
[2017-04-22] MEDS: ROSUVASTATIN CALCIUM 10 MG TAB PO SCH (20:37)
[2017-04-22] MEDS: CLOPIDOGREL BISULFATE 75 MG TAB PO SCH (20:37)
[2017-04-22] MEDS: CEFTRIAXONE SOD INJ 1 GM in DEXTROSE 5% ADD-VANTAGE 50ML 50 ML IV SCH (23:01)
[2017-04-22 23:16] VITALS: BP 137/62; PULSE 64; TEMP 36.6; O2SAT 94
[2017-04-23] VITALS (23 sets, daily range): BP systolic 104–152; BP diastolic 43–76; PULSE 59–69; TEMP 36.5–36.8; O2SAT 96–97
[2017-04-23] MEDS ORDERED: PARICALCITOL 5 MCG/ML VIAL (ZEMPLAR) IV. ONE (06:00)
[2017-04-23] MEDS ORDERED: EPOETIN ALFA 10,000 UNITS/ML VIAL IV. ONE (06:00)
[2017-04-23] MEDS ORDERED: HEPARIN SOD (PORCINE) 1000 UNIT/ML 10 ML VIAL IV SCH ×2 (06:00)
[2017-04-23] MEDS ORDERED: EPOETIN ALFA INJ 7,000 UNITS in SYRINGE 0 ML IV. SCH (06:00)
[2017-04-23] MEDS: INSULIN ASPART 100 UNITS/ML 3 ML PEN SC SCH ×2 (06:30→14:20)
[2017-04-23 07:03] LABS: BASO % 0.3 %; BASO ABS # 0.02 K/uL (0-0.2); COMPLETE YES; EOS % 2.2 %; HEMATOCRIT 35.5 % (37-47); IG% 0.2 %; LYMPH % 20.9 %; LYMPH ABS # 1.35 K/uL (1.2-3.4); MEAN CELL VOLUME 98.6 fL (80-100); MEAN CORPUSCULAR HEMOGLOBIN 31.4 pg (25-34); MEAN CORPUSCULAR HGB CONC 31.8 g/dl (32-36); MEAN PLATELET VOLUME 10.5 fL (7.4-10.4); MONO % 11.5 %; NEUT % 64.9 %; PLATELET COUNT 145 K/uL (130-400); WHITE BLOOD COUNT 6.46 K/uL (4.8-10.8)
[2017-04-23 07:17] LABS: INR 1.6 (0.9-1.1)
[2017-04-23 07:44] LABS: BUN/CREATININE RATIO 11.8 (10-20); CALCIUM 8.6 mg/dl (8.5-10.1); CREATININE 5.1 mg/dl (0.60-1.20)
[2017-04-23] MEDS: POLYETHYLENE (MIRALAX) 17 GM PACK PO SCH (08:18)
[2017-04-23] MEDS: SEVELAMER HYDROCH 800 MG TAB PO SCH ×2 (08:20→14:22)
[2017-04-23] MEDS: AMIODARONE 200 MG TAB PO SCH (08:20)
[2017-04-23] MEDS: DOCUSATE SODIUM/SENNA 50/8.6MG TAB PO SCH (08:20)
[2017-04-23] MEDS: ALLOPURINOL 100 MG TAB PO SCH (08:21)
[2017-04-23] MEDS: PANTOprazole SOD 40 MG TAB PO SCH (08:21)
[2017-04-23] MEDS: MULTIVITAMIN TAB PO SCH (08:21)
--- NOTE | 2017-04-23 10:23 | Nephrology Progress Note ---
Nephrology Progress Note Date of Service Apr 23, 2017. Chief Complaint HD patient admitted with RLE cellulitis Subjective Ms. Rahman was seen & examined in preparation for HD this morning. She denies fever or RLE discomfort. She notes that her RLE cellulitis is markedly improved. She voices no new medical concerns at this time. Review of Systems Constitutional: No fever Cardiovascular: No chest pain Respiratory: No dyspnea at rest Abdomen: No pain, No nausea, No vomiting Extremities: + leg edema A complete review of systems was performed. Pertinent positives are noted above. All other systems are negative. Vital Signs Last 8 Hrs Date Time Temp Pulse Resp B/P (MAP) Pulse Ox O2 Delivery O2 Flow Rate FiO2 04/23/17 07:57 36.7 69 18 146/76 (99) 96 Room Air Last Recorded Weight Weight (Kilograms): 74.400 Physical Exam General Appearance: no apparent distress Head: normocephalic, atraumatic Eyes: PERRL, EOMI Neck: no adenopathy Respiratory/Chest: lungs clear Cardiovascular: regular rate, rhythm Abdomen/GI: normal bowel sounds, non tender, soft Extremities/Musculoskelatal: + swelling (1+ pretibial pitting edema (chronic). RLE erythema has resolved. LUE AVF + bruit) Neurologic/Psych: alert, oriented x 3 Family History Asthma Cancer SISTER (Breast cancer) Chronic kidney disease MOTHER Diabetes mellitus FATHER Heart disease FATHER Hypertension FATHER MOTHER Kidney disease Kidney stones Stroke Negative for CKD/ESRD Social History Smoking Status: Never smoker Smokeless Tobacco Use: No Drug Use: none Marital Status: Housing Status: lives with family Occupation: retired . Retired. Never a smoker. Laboratory Results Past 24 Hours 04/23/17 06:24 Red Blood Count 3.60, Mean Corpuscular Volume 98.6, Mean Corpuscular Hemoglobin 31.4, Mean Corpuscular Hemoglobin Concent 31.8, Mean Platelet Volume 10.5, Neutrophils (%) (Auto) 64.9, Lymphocytes (%) (Auto) 20.9, Monocytes (%) (Auto) 11.5, Eosinophils (%) (Auto) 2.2, Basophils (%) (Auto) 0.3, Neutrophils # (Auto ) 4.20, Lymphocytes # (Auto) 1.35, Monocytes # (Auto) 0.74, Eosinophils # (Auto ) 0.14, Basophils # (Auto) 0.02 04/23/17 06:24 Test 04/22/17 11:30 04/22/17 16:49 04/22/17 20:09 04/23/17 06:24 Bedside Glucose 117 mg/dl (70-90) 104 mg/dl (70-90) 129 mg/dl (70-90) White Blood Count 6.46 K/uL (4.8-10.8) Red Blood Count 3.60 M/uL (4.2-5.4) Hemoglobin 11.3 g/dL (12.0-16.0) Hematocrit 35.5 % (37-47) Mean Corpuscular Volume 98.6 fL (80-100) Mean Corpuscular Hemoglobin 31.4 pg (25-34) Mean Corpuscular Hemoglobin Concent 31.8 g/dl (32-36) Platelet Count 145 K/uL (130-400) Mean Platelet Volume 10.5 fL (7.4-10.4) Neutrophils (%) (Auto) 64.9 % Lymphocytes (%) (Auto) 20.9 % Monocytes (%) (Auto) 11.5 % Eosinophils (%) (Auto) 2.2 % Basophils (%) (Auto) 0.3 % Neutrophils # (Auto) 4.20 K/uL (1.4-6.5) Lymphocytes # (Auto) 1.35 K/uL (1.2-3.4) Monocytes # (Auto) 0.74 K/uL (0.11-0.59) Eosinophils # (Auto) 0.14 K/uL (0-0.5) Basophils # (Auto) 0.02 K/uL (0-0.2) RDW Standard Deviation 61.6 fL (36.4-46.3) RDW Coefficient of Variation 17.2 % (11.5-14.5) Immature Granulocyte % (Auto) 0.2 % Immature Granulocyte # (Auto) 0.01 K/uL (0.00-0.02) Prothrombin Time 17.0 SECONDS (9.0-12.0) Prothromb Time International Ratio 1.6 (0.9-1.1) Anion Gap 11.0 mmol/L (3-11) Est Creatinine Clear Calc Drug Dose 7.8 ml/min Estimated GFR () 8.2 Estimated GFR (Non- 7.1 BUN/Creatinine Ratio 11.8 (10-20) Calcium Level 8.6 mg/dl (8.5-10.1) Random Vancomycin Level 11.8 mcg/ml Test 04/23/17 07:30 Bedside Glucose 112 mg/dl (70-90) Allergies Coded Allergies: No Known Allergies (Unverified , 04/20/17) Medications Current Inpatient Medications Medications (Trade) Dose Ordered Sig/Janeth Route Start Time Stop Time Status Last Admin Dose Admin Allopurinol (Zyloprim Tab) 50 mg QAM PO 04/21/17 08:00 05/21/17 08:59 04/23/17 08:21 50 MG Amiodarone HCl (Cordarone Tab) 200 mg QAM PO 04/21/17 08:00 05/21/17 08:59 04/23/17 08:20 200 MG Clopidogrel Bisulfate (plAVix TAB) 75 mg HS PO 04/21/17 21:00 05/21/17 20:59 04/22/17 20:37 75 MG Albuterol/ Ipratropium (Duoneb) 3 ml Q6H PRN INH 04/20/17 22:00 05/20/17 21:59 Multivitamins (Multivitamin Tab) 2 tab QAM PO 04/21/17 08:00 05/21/17 08:59 04/23/17 08:21 2 TAB Nitroglycerin (Nitrostat Tab) 0.4 mg PRN UT 04/20/17 22:00 05/20/17 21:59 Pantoprazole Sodium (Protonix Tab) 40 mg QAM PO 04/21/17 08:00 05/21/17 08:59 04/23/17 08:21 40 MG Rosuvastatin Calcium (Crestor Tab) 10 mg HS PO 04/21/17 21:00 05/21/17 20:59 04/22/17 20:37 10 MG Senna/Docusate Sodium (Senokot S Tab) 1 tab BID PO 04/21/17 08:00 05/21/17 08:59 04/23/17 08:20 1 TAB Sevelamer HCl (Renagel Tab) 800 mg TIDM PO 04/21/17 08:00 05/21/17 07:59 04/23/17 08:20 800 MG Acetaminophen (Tylenol Tab) 650 mg Q4H PRN PO 04/20/17 22:00 05/20/17 21:59 Ondansetron HCl (Zofran Inj) 4 mg Q6H PRN IV 04/20/17 22:00 05/20/17 21:59 Ceftriaxone Sodium 1 gm/ Dextrose 50 ml @ 100 mls/hr Q24H IV 04/20/17 23:00 04/30/17 22:59 04/22/17 23:01 100 MLS/HR Insulin Aspart (novoLOG ASPART) SLIDING SCALE G... ACHS SC 04/21/17 06:30 05/21/17 06:29 Glucose (Glucose 40% Gel) 15-30 GRAMS 15 GRAMS... UD PRN PO 04/21/17 00:15 05/21/17 00:14 Glucose (Glucose Chew Tab) 4-8 Tablets 4 Tabl... UD PRN PO 04/21/17 00:15 05/21/17 00:14 Dextrose (Dextrose 50% 50ML Syringe) 25-50ML OF 50% DW IV FOR... UD PRN IV 04/21/17 00:15 05/21/17 00:14 Glucagon (Glucagon Inj) 1 mg UD PRN SQ 04/21/17 00:15 05/21/17 00:14 Miscellaneous Information 1 ea UD PRN N/A 04/21/17 03:30 05/21/17 03:29 Epoetin Joshua 7000 units/Syringe 0.35 ml @ 1 mls/min TODAY@0600 IV. 04/23/17 06:00 04/23/17 18:00 Warfarin Sodium (Coumadin Tab) 3 mg DAILY@1600 PO 04/22/17 16:00 05/22/17 15:59 04/22/17 17:25 3 MG Polyethylene (Miralax Powder Packet) 17 gm BID PO 04/22/17 20:00 05/22/17 19:59 04/23/17 08:18 17 GM Impression (1) Cellulitis (2) ESRD (end stage renal disease) on dialysis (3) Hypertension (4) Anemia (5) Peripheral vascular disease Ms. Rahman was admitted to the hospital for IV antibiotic therapy to treat RLE cellulitis. She has ESRD requiring MWF HD Recommendations END STAGE RENAL DISEASE: -- Will provide HD today. Orders entered into EMR and HD RN notified ANEMIA: -- Will provide RANJAN w/ HD ID: -- Vancomycin can be given 1 g weekly IV due to ESRD -- No dose adjustment required for Ceftriaxone therapy -- Consider transitioning to oral antibiotic therapy
[2017-04-23] MEDS ORDERED: SULF1TAB92 PO (15:25)
[2017-04-23] MEDS ORDERED: CEPH500C PO (15:25)
--- NOTE | 2017-04-23 15:29 | Discharge Instructions ---
Discharge Instructions Date of Service Apr 23, 2017. Admission Reason for Admission: Cellulitis Discharge Discharge Diagnosis / Problem: Cellulitis, ESRD on HD Discharge Goals Goal(s): Improve function, Improve disease control Activity Recommendations Activity Limitations: resume your previous activity Lifting Limitations: none Exercise/Sports Limitations: as tolerated May Resume Sexual Activity: when tolerated . Instructions / Follow-Up Instructions / Follow-Up Medications: - BACTRIM: take once a day in the evening, important that you take after hemodialysis - KEFLEX: take twice a day, if you have dialysis in the morning, make sure you take after morning dialysis Cellulitis: responding well to IV antibiotics, will transition to oral antibiotics for 7 more days to complete treatment if redness gets worse instead of better, if you have fever or increased pain , please call Dr. Hart FOLLOW UP - Dr. Hart in one week, call for appointment - hemodialysis on Sunday Current Hospital Diet Patient's current hospital diet: Diabetes Type 2 Diet, Renal Diet Discharge Diet Recommended Diet: Diabetes Type 2 Diet, Renal Diet Pending Studies Studies pending at discharge: no Medical Emergencies . Who to Call and When: Medical Emergencies: If at any time you feel your situation is an emergency, please call 911 immediately. . Non-Emergent Contact Non-Emergency issues call your: Primary Care Provider Call Non-Emergent contact if: you have a fever, your pain is worsening, wound has increased redness . . "Provider Documentation" section prepared by Calvin Hudson. . VTE Core Measure Inpt VTE Proph given/why not?: Warfarin (Coumadin) [place] Drug Monitoring Program Search Results: no issues identified
[2017-04-23] MEDS: WARFARIN SOD 3 MG TAB PO SCH (16:14)
--- NOTE | 2017-04-24 23:35 | Discharge Summary ---
Discharge Summary Date of Service Apr 23, 2017. Discharge Summary Admission Date: Apr 20, 2017 at 21:51 Discharge Date: Apr 23, 2017 Discharge Disposition: Home Principal Diagnosis: Right lower extremity cellulitis Problems/Secondary Diagnoses: ESRD on HD MWF Immunizations: Have You Had Influenza Vaccine: Yes Influenza Vaccine Date: Apr 17, 2012 History of Tetanus Vaccine?: Yes Tetanus Immunization Date: Dec 16, 2006 History of Pneumococcal: Yes Pneumococcal Date: Dec 17, 2007 History of Hepatitis B Vaccine: No Procedures: Hemodialysis Consultations: Nephrology Medication Reconciliation New Medications: Cephalexin Monohydrate (Keflex) 500 Mg Cap 1 CAP PO BID for 7 Days, #14 CAP Trimethoprim/Sulfamethoxazole (Bactrim 400MG/80MG) Tab 1 TAB PO PM for 7 Days, #7 TAB Continued Medications: Allopurinol (Zyloprim) 100 Mg Tab 50 MG PO QAM Amiodarone Hcl (Cordarone) 200 Mg Tab 200 MG PO QAM Clopidogrel (Plavix) 75 Mg Tab 75 MG PO HS, 0 Refills Ipratropium-Albuterol (Duoneb) 3 Ml Nebu 1 TREATMENT INH Q4H PRN for SOB/Wheezing Multiple Vitamin (Renal Multivitamin Formul) 1 Tab Tab 2 TABS PO QAM Nitroglycerin (Nitrostat) 0.4 Mg Tab 0.4 MG UT PRN Nutritional Supplements (Colon Formula) 1 Cap Cap 1 CAP PO QAM Pantoprazole (Protonix) 40 Mg Tab 40 MG PO QAM Polyethylene Glycol 3350 (Miralax) 1 Pow Pow 17 GM PO AMPM Rosuvastatin Calcium (Crestor) 10 Mg Tab 10 MG PO HS, TAB Sennosides-Docusate Sodium (Stool Softener) 1 Tab Tab 1 TAB PO BID Sevelamer Hydroch (Renagel) 800 Mg Tab 800 MG PO TIDM, #90 TAB Warfarin Sodium (Warfarin Sodium) 2 Mg Tab 1 TAB PO QPM Discharge Exam Patient feeling much better on the day of discharge, mild erythema but greatly reduced. Tolerated hemodialysis. discussed switching to PO antibiotics and going home, she agreed with the plan, felt strong enough Review of Systems: Constitutional: No fever, No chills, No sweats, No weight loss, No weakness , No fatigue, No problem reported Eyes: No worsening of vision, No eye pain, No redness, No discharge, No diplopia, No problem reported ENT: No hearing loss, No unusual epistaxis, No nasal symptoms, No sore throat, No tinnitus, No dental problems, No trouble swallowing, No problem reported Respiratory: No cough, No sputum, No wheezing, No shortness of breath, No dyspnea on exertion, No dyspnea at rest, No hemoptysis, No problem reported Cardiovascular: No chest pain, No orthopnea, No PND, No edema, No claudication, No palpitations, No problem reported Abdomen: No pain, No nausea, No vomiting, No diarrhea, No constipation, No GI bleeding, No problem reported Musculoskeletal: No joint pain, No muscle pain, No swelling, No calf pain, No problem reported Genitourinary - Female: No dysuria, No urinary frequency, No urinary urgency , No urinary incontinence, No urinary retention Genitourinary - Male: No hematuria, No dysuria, No urinary frequency, No urinary urgency, No urinary hesitancy, No urinary retention, No urinary incontinence, No penile discharge, No lesions, No impotence, No problem reported Neurologic: No memory loss, No paralysis, No weakness, No numbness/tingling , No vertigo, No balance problems, No problem reported Psychiatric: No depression symptoms, No anhedonism, No anxiety, No insomnia , No substance abuse, No problem reported Endocrine: No fatigue, No excessive thirst, No excessive urination, No problem reported Hematologic / Lymphatic: No abnormal bleeding/bruising, No clotting problems , No swollen lymph nodes, No night sweats, No problem reported Integumentary: + rash (right LE erythema surrounding wound), No itch, No new /changing skin lesions, No color change, No bleeding, No problem reported Physical Exam: General Appearance: WD/WN, no apparent distress Eyes: normal inspection, EOMI, sclerae normal ENT: normal ENT inspection, hearing grossly normal, pharynx normal Neck: supple, no adenopathy, no JVD, trachea midline Respiratory/Chest: chest non-tender, lungs clear, normal breath sounds, no respiratory distress, no accessory muscle use Cardiovascular: regular rate, rhythm, no edema, no gallop, no JVD, no murmur , normal peripheral pulses Abdomen / GI: normal bowel sounds, non tender, soft, no organomegaly Extremities: normal inspection, no calf tenderness, normal capillary refill , no pedal edema, normal range of motion Neurologic/Psychiatric: j2ee developer II-XII nml as tested, no motor/sensory deficits , alert, normal mood/affect, normal reflexes, oriented x 3 Skin: + rash (erythema and mild tenderness, skin warm but not hot) Hospital Course Ms. Rahman is an 86 y/o female with Hx ESRD on HD, CAD, PAF, chronic systolic CHF, Aortic Stenosis, Mitral Regurg, suspected left subclavian steal syndrome, Anemia of Chronic Disease with H/O GI Bleed (September 2016), DMII, HTN, HPL, recent LLE DVT - on Coumadin. Pt developed redness, pain and swelling of her RLE over the past day. She denies a fever or rigors. Denies CP, SOB, N/V/D. She underwent dialysis earlier on the day of admission. She was discharged about one month ago on IV Vanc for GBS bacteremia. 1) RLE Cellulitis - extensive although she does not currently meet SIRS criteria - considering her comorbidities and rapid spread of the infection, she was admitted and placed on antibiotics. No BCxs were drawn at time of admission prior to giving abx as she was not septic. Much improved on Vancomycin and Rocephin will d/c home on Bactrim for MRSA coverage and Keflex, anticipate 10 days total of treatment 2) DMII with h/o hypoglycemia-was taken off DM meds last admission. Very well controlled here, not needing insulin - placed on SS, glucose checks 3) CAD/PAF/Aortic Stenosis/Mitral Regurg/suspected left subclavian steal syndrome/Chronic systolic CHF - no evidence of ACS. Was evaluated by Vascular in past and there was talk of possible intervention of SS syndrome but pt hesitant. No acute issues at this time Last ECHO 03/2017 with: Mildly dilated left ventricle with moderately reduced systolic function. EF 35-40%. Akinesis of the mid to distal inferior wall, mid septum, mid anteroseptum. Severe hypokinesis of the base and distal septum, basal konrad septum, and basal inferior wall. Otherwise, global mild hypokinesis, sparing the inferolateral base. Moderate concentric left ventricular hypertrophy. Moderately dilated right ventricle with mildly reduced systolic function. 2. The left atrium is moderately dilated. 3. The right atrium is mildly dilated. 4. Aortic stenosis appears to be significant visually but transvalvular velocities and gradients suggest only mild stenosis, which may be underestimated due to reduced LV systolic function. 5. At least mild mitral regurgitation (not fully interrogated). 6. Pleural effusion. 7. Mildly elevated estimated right ventricular systolic pressure; 41 mmHg. 8. Limited 2D echo with color Doppler and spectral Doppler. 9. Compared to prior study on 01/11/2017, LV systolic function is now moderately reduced with wall motion abnormalities as described. Mitral regurgitation was not fully interrogated on this limited study. - cont Statin -was started on Imdur during hospitalization in January for recurrent angina, but then it seems to have dropped off her med list at subsequent admission in March 2017--> was hypotensive at that time so will not add it back on - currently anticoagulated with Coumadin -follow INR which was lower today at 1.7 -increase coumadin dose today to 3mg daily -continue amiodarone -continue Plavix -watch for acute CHF 4) ESRD on HD - Due for dialysis Mon. Has ongoing issue with infiltrated AVF from 3 months ago, currently using AVF partially along with left TIJ for HD access - cont Sevelamer, Renagel, renal diet -will consult Nephrology for HD and medical management-recommendations appreciated -renally dose meds 5) H/o L Leg DVT: resolving on US in March/2017 -continue coumadin for PAF anyway and tx of DVT 6) Anemia of Chronic Disease with H/O GI Bleed (September 2016): current hgb 10.9 with macrocytosis -check B12, folate--> both normal -follow CBC -Nephro managing as well with Epo Code Status: DNR/DNI as per discussion with pt Disposition: to home on 04/23 Total Time Spent: Greater than 30 minutes This includes examination of the patient, discharge planning, medication reconciliation, and communication with other providers. Discharge Instructions Please refer to the electronic Patient Visit Report (Discharge Instructions) for additional information. Follow-Up Dr. Quezada in 2 weeks Additional Copies To Cooper Hart M.D.
== END 2017-04-23 16:30 | disposition home or self-care (01) | DRG 602 ==
LOC: C.EDB 20:07 → C.4E 21:51 → ENRESERV 22:08
PROVIDERS: ADMIT Internal Medicine; ATTEND Internal Medicine
DX: L03.115 Cellulitis of right lower limb (principal); N18.6 End stage renal disease; Z66 Do not resuscitate; Z96.659 Presence of unspecified artificial knee joint; E78.00 Pure hypercholesterolemia, unspecified; D63.8 Anemia in other chronic diseases classified elsewhere; I73.9 Peripheral vascular disease, unspecified; E11.9 Type 2 diabetes mellitus without complications; Z95.5 Presence of coronary angioplasty implant and graft; Z99.2 Dependence on renal dialysis; Z87.442 Personal history of urinary calculi; Z79.82 Long term (current) use of aspirin; Z79.01 Long term (current) use of anticoagulants; I25.2 Old myocardial infarction; Z79.899 Other long term (current) drug therapy; Z79.02 Long term (current) use of antithrombotics/antiplatelets; Z95.1 Presence of aortocoronary bypass graft; Z82.3 Family history of stroke; Z87.01 Personal history of pneumonia (recurrent); Z90.710 Acquired absence of both cervix and uterus; Z83.3 Family history of diabetes mellitus; Z82.49 Family history of ischemic heart disease and other diseases of the circulatory system; Z80.3 Family history of malignant neoplasm of breast; Z82.5 Family history of asthma and other chronic lower respiratory diseases; Z84.1 Family history of disorders of kidney and ureter; I82.409 Acute embolism and thrombosis of unspecified deep veins of unspecified lower extremity; R53.83 Other fatigue; R60.9 Edema, unspecified

== ENCOUNTER → 2017-04-20 | Outpatient (CLI) | payer OTHER ==
[~2017-04-20] MED LIST changes: +CEPH500C PO; -CMD5 PO; +HPRIS5MX SC; -HYDR5SYP11 PO; +IPRASOL4 INH; +NTRGSL/4 UT; +POLY335019 PO; +RXC5 PO; -SEVE800T7 PO; +SULF1TAB92 PO; +VANC1INJ72 IV; +WARF4TAB43 PO; +[UNRECOGNIZED DRUG - CODE] PO
--- NOTE | 2017-04-20 12:11 | DIAGNOSTIC IMAGING REPORT ---
RIGHT LOWER EXTREMITY VENOUS DOPPLER HISTORY: Right leg swelling. COMPARISON STUDY: Venous Doppler 03/17/2017. FINDINGS: There is normal compressibility, flow, and augmentation within the right lower extremity deep venous system. Subcutaneous edema within the right lower leg. IMPRESSION: No DVT within the right lower extremity Electronically signed by: Trell Cannon M.D. 04/20/2017 12:10 PM Dictated Date/Time: 04/20/2017 12:09 PM
== END | disposition home or self-care (01) ==
LOC: C.ULTRBC 11:43
PROVIDERS: ATTEND Physician Assistant Medical
DX: E11.9 Type 2 diabetes mellitus without complications (principal); I82.409 Acute embolism and thrombosis of unspecified deep veins of unspecified lower extremity; R53.83 Other fatigue; R60.9 Edema, unspecified

== ENCOUNTER → 2017-05-03 | Outpatient (CLI) | payer OTHER ==
[~2017-05-03] MED LIST changes: +HPRIS5MX SC; +RXC5 PO; -VANC1INJ72 IV
--- NOTE | 2017-05-03 13:12 | DIAGNOSTIC IMAGING REPORT ---
RIGHT HIP UNILATERAL 2 VIEWS CLINICAL HISTORY: Right hip pain COMPARISON: Outside pelvic x-ray dated 05/12/2014 DISCUSSION: There are postsurgical changes of a total right hip arthroplasty. No acute fractures are visualized. There are no dislocations. There are vascular calcifications present. There are postsurgical changes within the lumbar spine. There is an increasing periprosthetic lucency adjacent to the tip of the femoral spike. This may indicate loosening. IMPRESSION: 1. No acute fractures 2. Developing periprosthetic lucency adjacent to the tip of the femoral spike. This may indicate loosening. Electronically signed by: Bob Heart M.D. 05/03/2017 1:11 PM Dictated Date/Time: 05/03/2017 1:09 PM
== END | disposition home or self-care (01) ==
LOC: C.RAD1850 12:49
PROVIDERS: ATTEND Physician Assistant Medical
DX: M25.551 Pain in right hip (principal)

== ENCOUNTER → 2017-05-17 | Outpatient (CLI) | payer OTHER ==
[2017-05-17 13:15] LABS: BASO % 0.3 %; BASO ABS # 0.02 K/uL (0-0.2); COMPLETE YES; EOS % 1.1 %; HEMATOCRIT 35.2 % (37-47); IG% 0.3 %; LYMPH % 14.6 %; LYMPH ABS # 1.02 K/uL (1.2-3.4); MEAN CELL VOLUME 103.8 fL (80-100); MEAN CORPUSCULAR HEMOGLOBIN 31.6 pg (25-34); MEAN CORPUSCULAR HGB CONC 30.4 g/dl (32-36); MEAN PLATELET VOLUME 9.9 fL (7.4-10.4); MONO % 8.1 %; NEUT % 75.6 %; PLATELET COUNT 183 K/uL (130-400); RED BLOOD COUNT 3.39 M/uL (4.2-5.4); WHITE BLOOD COUNT 7.01 K/uL (4.8-10.8)
--- NOTE | 2017-05-17 17:05 | DIAGNOSTIC IMAGING REPORT ---
BONE SCAN 3 PHASE LIMITED CLINICAL HISTORY: RT HIP,R/O ASCEPTIC LOSENING,Z96.641 hip pain TECHNIQUE: 3 phase imaging following the administration of 26.2 mCi technetium 99m MDP. COMPARISON STUDY: None FINDINGS: Vascular flow characteristics are considered symmetric. There are no regions of hyperemia. Blood pool images shows a very subtle increase in activity about the patient's right hip prosthetic proximally.. Delayed images show a minimal amount of increased activity in level of the greater lesser trochanter. Mild degenerative activity is seen below the symphysis pubis. IMPRESSION: Findings consistent with early and or minimal loosening of the patient's femoral prosthetic on the right The above report was generated using voice recognition software. It may contain grammatical, syntax or spelling errors. Electronically signed by: Raulito Acosta M.D. 05/17/2017 5:03 PM Dictated Date/Time: 05/17/2017 5:01 PM
== END | disposition home or self-care (01) ==
LOC: C.NUCL 12:13
PROVIDERS: ATTEND Physician Assistant
DX: T85.848A Pain due to other internal prosthetic devices, implants and grafts, initial encounter (principal); Y83.1 Surgical operation with implant of artificial internal device as the cause of abnormal reaction of the patient, or of later complication, without mention of misadventure at the time of the procedure

== ENCOUNTER 2017-06-03 13:29 | Inpatient (IN) | payer OTHER ==
[~2017-06-03] VITALS: Ht 162.6 cm; Wt 74.4 kg
[~2017-06-03 13:29] MED LIST changes: -HPRIS5MX SC; -RXC5 PO
[2017-06-03] MEDS ORDERED: HPRIS5MX SC (13:59)
[2017-06-03] MEDS ORDERED: MoRPHine SULFATE 4 MG/ML 1 ML CARP\\VIAL IV STA (14:19)
[2017-06-03 14:58] LABS: BASO % 0.4 %; BASO ABS # 0.02 K/uL (0-0.2); COMPLETE YES; EOS % 3.5 %; HEMATOCRIT 38.3 % (37-47); IG% 0.2 %; LYMPH % 20.1 %; LYMPH ABS # 1.09 K/uL (1.2-3.4); MEAN CELL VOLUME 101.3 fL (80-100); MEAN CORPUSCULAR HGB CONC 30.5 g/dl (32-36); MEAN PLATELET VOLUME 9.9 fL (7.4-10.4); MONO % 12.6 %; NEUT % 63.2 %; PLATELET COUNT 124 K/uL (130-400); RED BLOOD COUNT 3.78 M/uL (4.2-5.4); WHITE BLOOD COUNT 5.41 K/uL (4.8-10.8)
[2017-06-03 15:15] LABS: CALCIUM 8.8 mg/dl (8.5-10.1); CREATININE 4.4 mg/dl (0.60-1.20); POTASSIUM 4.1 mmol/L (3.5-5.1)
--- NOTE | 2017-06-03 16:01 | DIAGNOSTIC IMAGING REPORT ---
LUMBAR SPINE WITHOUT HISTORY: 87 years-old Female lower back pain acute low back pain. COMPARISON: CT abdomen and pelvis 09/04/2016 TECHNIQUE: Multiple axial CT images of the lumbar spine were obtained without IV contrast. A dose lowering technique was used consistent with the principals of ANGELINE. FINDINGS: There is 8 millimeters anterolisthesis L4 on L5 and 4 mm anterolisthesis L3 on L4, unchanged from prior study. Prior posterior decompression with interbody enrique and screw fusion at L3-L5. Discectomy changes are seen at the L4-L5 level. No evidence of hardware complication. The bones are moderately demineralized. Moderate endplate degenerative changes seen at L2-L3 with associated endplate irregularity, mildly progressed from prior study dated 09/04/2016. No acute compression deformity or malalignment identified. Multilevel moderate to severe facet arthropathy is noted. No acute fracture or subluxation is identified. The sacrum appears intact without acute sacral insufficiency fracture identified. Evaluation of the central canal and foramina is limited secondary to streak artifact from the hardware. There is extensive calcification of the abdominal aorta and abdominal vasculature. Renal calcifications are also noted with renal thinning. There are small bilateral pleural effusions. Right basilar atelectasis noted. IMPRESSION: 1. No acute fracture or subluxation of the lumbar spine. 2. Osteopenia with multilevel advanced facet arthropathy. Mildly progressive endplate irregularity at L2-L3 is likely degenerative in nature. If there is concern for possible discitis osteomyelitis, follow-up MRI with contrast may be considered. 3. Prior posterior decompression with interbody fusion at L3-L5. There is unchanged mild anterolisthesis of L3 on L4 and L4 on L5. The above report was generated using voice recognition software. It may contain grammatical, syntax or spelling errors. Electronically signed by: Rakan Grimes M.D. 06/03/2017 4:00 PM Dictated Date/Time: 06/03/2017 3:52 PM
--- NOTE | 2017-06-03 16:07 | DIAGNOSTIC IMAGING REPORT ---
R PELVIS/UNILATERAL HIP 2-3VIEWS HISTORY: 87 years-old Female r hip pain acute right-sided hip pain with history of prior right hip arthroplasty COMPARISON: Right hip radiographs 05/03/2017 TECHNIQUE: AP view of the pelvis with 2 views of the right hip FINDINGS: Right hip arthroplasty hardware is noted with persistent lucency adjacent to the distal femoral stem nicely seen on image 3 of 3. Bones are moderately demineralized. No periprosthetic fracture or dislocation identified. Imaged right hemipelvis appears intact. Moderate osteophytes of the left hip. Fusion hardware of the lower lumbar spine is noted. There are peripheral vascular calcifications. IMPRESSION: 1. No acute fracture or dislocation. 2. Right hip arthroplasty. Persistent periprosthetic lucency adjacent to the distal femoral stem suggest hardware loosening. The above report was generated using voice recognition software. It may contain grammatical, syntax or spelling errors. Electronically signed by: Rakan Grimes M.D. 06/03/2017 4:05 PM Dictated Date/Time: 06/03/2017 4:02 PM
[2017-06-03] MEDS ORDERED: NITROGLYCERIN 0.4 MG SL PER TAB CHARGE UT SCH (17:15)
[2017-06-03] MEDS ORDERED: ALBUT/IPRATROP 3MG/0.5MG NEB 3 ML VIAL INH PRN (17:15)
[2017-06-03] MEDS ORDERED: ACETAMINOPHEN 325 MG TAB PO PRN (17:15)
[2017-06-03 17:30] VITALS: O2SAT 96; Ht 162.6 cm; Wt 74.4 kg
[2017-06-03] MEDS ORDERED: HYDROCODONE/ACETAMOPHEN 5/325MG TAB PO PRN (17:30)
--- NOTE | 2017-06-03 18:38 | DIAGNOSTIC IMAGING REPORT ---
R HIP-LOWER EXTREMITY WITHOUT HISTORY: 87 years-old Female worsening right hip pain, hardware loosening progressively worsened chronic right hip pain with hardware loosening. Right hip arthroplasty. COMPARISON: Pelvis radiographs 06/03/2017 TECHNIQUE: Multiple axial CT images of the right lower extremity were obtained without contrast. A dose lowering technique was used consistent with the principals of ANGELINE. FINDINGS: Right hip arthroplasty noted. The acetabular component appears intact without complication. There is lucency surrounding the distal femoral stem measuring approximately 5 mm distally as seen on image 64 of series 500. No periprosthetic fracture identified. The bones are moderately demineralized. No acute fracture or dislocation is identified. Advanced degenerative changes are seen within the pubic symphysis. The imaged right hemipelvis appears intact. Extensive Vascular vascular calcifications are noted. Streak artifact from arthroplasty hardware limits evaluation of the soft tissues. No focal soft tissue collection or mass identified. There is mild atrophy of the musculature about the right hip. IMPRESSION: 1. Right hip arthroplasty noted with redemonstration of periprosthetic lucency noted along the distal aspect of the femoral stem suggesting hardware loosening. No periprosthetic fracture identified. 2. No focal soft tissue abnormality or soft tissue collection identified. 3. Moderate bone demineralization. The above report was generated using voice recognition software. It may contain grammatical, syntax or spelling errors. Electronically signed by: Rakan Grimes M.D. 06/03/2017 6:37 PM Dictated Date/Time: 06/03/2017 6:24 PM
--- NOTE | 2017-06-03 18:55 | DIAGNOSTIC IMAGING REPORT ---
PELVIS NO IV/ORAL CONT (CT) HISTORY: 87 years-old Female worsening R hip pain, hardware loosening progressively worsened right hip pain with hardware loosening described on comparison studies. COMPARISON: Right hip CT of same day, CT abdomen and pelvis 09/04/2016 TECHNIQUE: Multiple axial CT images of the pelvis were obtained without contrast. A dose lowering technique was used consistent with the principals of ANGELINE. FINDINGS: Moderate diffuse body wall edema. Extensive vascular calcifications are seen. Evaluation of the pelvic structures is limited secondary to streak artifact from right hip arthroplasty. Urinary bladder is unremarkable. Uterus appears atrophic or alternatively may be surgically absent. Noninflamed colonic diverticulosis. The appendix appears noninflamed. No focal bowel wall thickening or pneumoperitoneum. No bulky pelvic adenopathy identified. Postsurgical changes of prior posterior decompression with interbody fusion seen involving the lower lumbar spine, partially imaged. There is 7 mm anterolisthesis of L4 on L5, unchanged. No evidence of hardware complication involving the lower lumbar spine. The bones are moderately demineralized. Minimal linear sclerosis is seen involving the inferior right sacral ala on image 271 of series 4 which appears unchanged suggesting remote insufficiency fracture, nicely demonstrated on the coronal images and also on image 276 of series 4 no definite acute insufficiency fracture of the sacrum identified. No acute pelvic fracture identified. Moderate left hip osteoarthritis. Right hip arthroplasty noted with previous described lucency adjacent to the distal right femoral stem outside the [id number]. Degenerative changes involve the pubic symphysis, severe in nature. Mild to moderate diffuse body wall edema. No focal fluid collection or soft tissue mass identified. IMPRESSION: 1. Right hip arthroplasty in place with previously described periprosthetic lucency involving the distal right femoral stem outside the [id number]. No evidence of hardware complication on this study. 2. No acute fracture or dislocation identified. Please note however that the bones are moderately demineralized which limits evaluation for acute nondisplaced fracture. 3. Suspected remote insufficiency fracture of the inferior right sacral ala. 4. Prior posterior decompression with interbody fusion of the lower lumbar spine, partially imaged. 5. Colonic diverticulosis without diverticulitis. The above report was generated using voice recognition software. It may contain grammatical, syntax or spelling errors. Electronically signed by: Rakan Grimes M.D. 06/03/2017 6:53 PM Dictated Date/Time: 06/03/2017 6:44 PM
[2017-06-03 18:57] VITALS: BP 132/53; PULSE 66; TEMP 36.4; O2SAT 94
--- NOTE | 2017-06-03 18:59 | History and Physical ---
History & Physical Date & Time of Service: Jun 03, 2017 at 18:56 Chief Complaint: Cellulitis Of Right Lower Extremity Without Foot Primary Care Physician: Cooper Hart M.D. Past Medical/Surgical History Medical Problems: (1) Ac Myocrd Infrct,Oth Inferior Wall,Subseq Epis Car Status: Resolved (2) Aortocoronary Bypass Status: Resolved (3) Chronic Kidney Disease, Stage Iii (Moderate) Status: Chronic (4) Coronary Atherosclerosis Of [place] Coronary Vessel Status: Chronic (5) Diab Qiana Wo Compl, Type Ii Or Unspec Type, Not Uncntrld Status: Chronic (6) Hypertension Nos Status: Chronic (7) Knee Joint Replacement Status Status: Chronic (8) Old Myocardial Infarct Status: Chronic (9) Percutaneous Translum Coron Angioplasty Status Status: Resolved (10) Pneumonia, Organism Nos Status: Resolved (11) Pure Hypercholesterolem Status: Chronic (12) Urin Tract Infection Nos Status: Resolved Family History Asthma Cancer SISTER (Breast cancer) Chronic kidney disease MOTHER Diabetes mellitus FATHER Heart disease FATHER Hypertension FATHER MOTHER Kidney disease Kidney stones Stroke Social History Smoking Status: Never Smoker Smokeless Tobacco Use: No Alcohol Use: none Drug Use: none Marital Status: Housing status: lives with family Occupational Status: retired Immunizations History of Influenza Vaccine: Yes Influenza Vaccine Date: Apr 17, 2012 History of Tetanus Vaccine?: Yes Tetanus Immunization Date: Dec 16, 2006 History of Pneumococcal: Yes Pneumococcal Date: Dec 17, 2007 History of Hepatitis B Vaccine: No Multi-Drug Resistant Organisms History of MDRO: No Allergies Coded Allergies: No Known Allergies (Unverified , 04/20/17) Home Medications Scheduled Allopurinol (Zyloprim), 50 MG PO QAM Amiodarone Hcl (Cordarone), 200 MG PO QAM Heparin Sod (Porcine) (Heparin Sq), 0.5 ML SC BID Multiple Vitamin (Renal Multivitamin Formul), 2 TABS PO QAM Nitroglycerin (Nitrostat), 0.4 MG UT PRN Nutritional Supplements (Colon Formula), 1 CAP PO QAM Pantoprazole (Protonix), 40 MG PO QAM Polyethylene Glycol 3350 (Miralax), 17 GM PO AMPM Rosuvastatin Calcium (Crestor), 10 MG PO HS Sennosides-Docusate Sodium (Stool Softener), 1 TAB PO BID Sevelamer Hydroch (Renagel), 800 MG PO TIDM Scheduled PRN Ipratropium-Albuterol (Duoneb), 1 TREATMENT INH Q4H PRN for SOB/Wheezing Review of Systems The patient denies chest pain, palpitations, shortness of breath, cough, lower extremity swelling, vision change, hearing change, sore throat, fevers, chills, sweats, weight change, fatigue, nausea, vomiting, diarrhea or constipation, abdominal pain, pelvic pain, blood in urine or stool, dysuria, urinary frequency or urgency, lightheadedness , dizziness, headache, memory loss, rash, abnormal bruising or bleeding, numbness or tingling in arms, neck pain, or night sweats. The review of systems is otherwise negative other than for that already noted above, and at least 10 systems have been reviewed. Physical Exam Vital Signs Date Time Temp Pulse Resp B/P (MAP) Pulse Ox O2 Delivery O2 Flow Rate FiO2 06/03/17 18:26 69 18 114/46 96 Room Air 06/03/17 17:30 96 Nasal Cannula 2.0 06/03/17 16:28 74 18 145/54 96 Nasal Cannula 2.0 06/03/17 14:39 65 18 120/56 96 Nasal Cannula 2.0 06/03/17 13:49 86 Room Air 06/03/17 13:44 36.7 68 18 137/77 92 Nasal Cannula 2.0 The patient is awake, well-developed and adequately nourished, alert and oriented 3, normocephalic and atraumatic, lying in bed and in no acute distress. HEENT--PERRL, EOMI, mucous membranes and oropharynx dry. Neck--supple, no JVD or bruits, thyroid normal, trachea midline, no adenopathy. Heart--normal S1 and S2, no extra beats, no murmurs, rubs or gallops. Lungs--clear bilaterally with good air movement, no respiratory distress, no accessory muscle use. Abdomen--normal bowel sounds and soft, nontender and nondistended, no hernias or masses, no organomegaly. Extremities--no cyanosis, clubbing or edema. There are good distal pulses b/l. Dermatologic--normal skin turgor, normal color, warm and dry, no abnormal lymph nodes, no rash. Neurologic--cranial nerves II through XII grossly intact. Rheumatologic--pain over right hip and groin area with palpation Psychiatric--normal affect. Diagnostics Laboratory Results Results Past 24 Hours Test 06/03/17 14:43 Range/Units White Blood Count 5.41 4.8-10.8 K/uL Red Blood Count 3.78 4.2-5.4 M/uL Hemoglobin 11.7 12.0-16.0 g/dL Hematocrit 38.3 37-47 % Mean Corpuscular Volume 101.3 80-100 fL Mean Corpuscular Hemoglobin 31.0 25-34 pg Mean Corpuscular Hemoglobin Concent 30.5 32-36 g/dl Platelet Count 124 130-400 K/uL Mean Platelet Volume 9.9 7.4-10.4 fL Neutrophils (%) (Auto) 63.2 % Lymphocytes (%) (Auto) 20.1 % Monocytes (%) (Auto) 12.6 % Eosinophils (%) (Auto) 3.5 % Basophils (%) (Auto) 0.4 % Neutrophils # (Auto) 3.42 1.4-6.5 K/uL Lymphocytes # (Auto) 1.09 1.2-3.4 K/uL Monocytes # (Auto) 0.68 0.11-0.59 K/uL Eosinophils # (Auto) 0.19 0-0.5 K/uL Basophils # (Auto) 0.02 0-0.2 K/uL RDW Standard Deviation 60.9 36.4-46.3 fL RDW Coefficient of Variation 16.5 11.5-14.5 % Immature Granulocyte % (Auto) 0.2 % Immature Granulocyte # (Auto) 0.01 0.00-0.02 K/uL Sodium Level 139 136-145 mmol/L Potassium Level 4.1 3.5-5.1 mmol/L Chloride Level 99 98-107 mmol/L Carbon Dioxide Level 31 21-32 mmol/L Anion Gap 9.0 3-11 mmol/L Blood Urea Nitrogen 40 7-18 mg/dl Creatinine 4.40 0.60-1.20 mg/dl Est Creatinine Clear Calc Drug Dose 9.1 ml/min Estimated GFR () 9.9 Estimated GFR (Non- 8.5 BUN/Creatinine Ratio 9.0 10-20 Random Glucose 154 70-99 mg/dl Calcium Level 8.8 8.5-10.1 mg/dl Diagnostic Radiology Patient Name: ANANTH SIMPSON Unit Number: [id number] Dictated: 06/03/171551 Transcribed: 06/03/171551 JRB Printed Date/Time: [~ rep prt dt]/[~ rep prt tm] [~ rep ct labl] - [~ rep ct ivnm] [facility] Radiology Department [place] [id number] Dictated: 06/03/171551 Transcribed: 06/03/171551 JRB Printed Date/Time: [~ rep prt dt]/[~ rep prt tm] [~ rep ct labl] - [~ rep ct ivnm] [~ rep ct add3]] LUMBAR SPINE WITHOUT HISTORY: 87 years-old Female lower back pain acute low back pain. COMPARISON: CT abdomen and pelvis 09/04/2016 TECHNIQUE: Multiple axial CT images of the lumbar spine were obtained without IV contrast. A dose lowering technique was used consistent with the principals of ANGELINE. FINDINGS: There is 8 millimeters anterolisthesis L4 on L5 and 4 mm anterolisthesis L3 on L4, unchanged from prior study. Prior posterior decompression with interbody enrique and screw fusion at L3-L5. Discectomy changes are seen at the L4-L5 level. No evidence of hardware complication. The bones are moderately demineralized. Moderate endplate degenerative changes seen at L2-L3 with associated endplate irregularity, mildly progressed from prior study dated 09/04/2016. No acute compression deformity or malalignment identified. Multilevel moderate to severe facet arthropathy is noted. No acute fracture or subluxation is identified. The sacrum appears intact without acute sacral insufficiency fracture identified. Evaluation of the central canal and foramina is limited secondary to streak artifact from the hardware. There is extensive calcification of the abdominal aorta and abdominal vasculature. Renal calcifications are also noted with renal thinning. There are small bilateral pleural effusions. Right basilar atelectasis noted. IMPRESSION: 1. No acute fracture or subluxation of the lumbar spine. 2. Osteopenia with multilevel advanced facet arthropathy. Mildly progressive endplate irregularity at L2-L3 is likely degenerative in nature. If there is concern for possible discitis osteomyelitis, follow-up MRI with contrast may be considered. 3. Prior posterior decompression with interbody fusion at L3-L5. There is unchanged mild anterolisthesis of L3 on L4 and L4 on L5. The above report was generated using voice recognition software. It may contain grammatical, syntax or spelling errors. Electronically signed by: Rakan Grimes M.D. 06/03/2017 4:00 PM Dictated Date/Time: 06/03/2017 3:52 PM The status of this report is Signed. Draft = Not yet reviewed or approved by Radiologist. Signed = Reviewed and approved by Radiologist. <AttendingPhy></AttendingPhy> <FamilyPhy>Reuben Quezada M.D.</FamilyPhy> < PrimaryPhy>Cooper Hart M.D.</PrimaryPhy> <UnitNumber>[id number]</ UnitNumber> <VisitNumber>[id number]</VisitNumber> <PatientName>CALVINANANTH< /PatientName> <DateOfBirth>1930</DateOfBirth> <Location>[facility]</Location> < ServiceDate>06/03/17</ServiceDate> <MNE>ESINDI</MNE> <OrderingPhy>Markos Krishnamurthy DO</OrderingPhy> <OrderingPhyMNE>f rep ord dr bae</OrderingPhyMNE> < DictatingPhyMNE>f rep dict dr bae</DictatingPhyMNE> <CCListMNE>f rep ct mne</ CCListMNE> <AdmittingPhyMNE>f pt admit dr bae</AdmittingPhyMNE> <AttendingPhyMNE >f pt attend dr bae</AttendingPhyMNE> <ConsultingPhyMNE>f pt consult dr bae</ConsultingPhyMNE> <FamilyPhyMNE>f pt fam dr bae</FamilyPhyMNE> <OtherPhyMNE>f pt other dr bae</OtherPhyMNE> < PrimaryPhyMNE>f pt prim care dr bae</PrimaryPhyMNE> <ReferringPhyMNE>f pt referring dr bae</ReferringPhyMNE> Patient Name: PENNY SIMPSONINGRID Kim Unit Number: [id number] Dictated: 10/01/17 1602 Transcribed: 06/03/171601 JRB Printed Date/Time: [~ rep prt dt]/[~ rep prt tm] [~ rep ct labl] - [~ rep ct ivnm] [facility] [place] [address] Dictated: 06/03/171601 Transcribed: 06/03/171601 JRB Printed Date/Time: [~ rep prt dt]/[~ rep prt tm] [~ rep ct labl] - [~ rep ct ivnm] R PELVIS/UNILATERAL HIP 2-3VIEWS HISTORY: 87 years-old Female r hip pain acute right-sided hip pain with history of prior right hip arthroplasty COMPARISON: Right hip radiographs 05/03/2017 TECHNIQUE: AP view of the pelvis with 2 views of the right hip FINDINGS: Right hip arthroplasty hardware is noted with persistent lucency adjacent to the distal femoral stem nicely seen on image 3 of 3. Bones are moderately demineralized. No periprosthetic fracture or dislocation identified. Imaged right hemipelvis appears intact. Moderate osteophytes of the left hip. Fusion hardware of the lower lumbar spine is noted. There are peripheral vascular calcifications. IMPRESSION: 1. No acute fracture or dislocation. 2. Right hip arthroplasty. Persistent periprosthetic lucency adjacent to the distal femoral stem suggest hardware loosening. The above report was generated using voice recognition software. It may contain grammatical, syntax or spelling errors. Electronically signed by: Rakan Grimes M.D. 06/03/2017 4:05 PM Dictated Date/Time: 06/03/2017 4:02 PM The status of this report is Signed. Draft = Not yet reviewed or approved by Radiologist. Signed = Reviewed and approved by Radiologist. <AttendingPhy></AttendingPhy> <FamilyPhy>Reuben Quezada M.D.</FamilyPhy> < PrimaryPhy>Cooper Hart M.D.</PrimaryPhy> <UnitNumber>[id number]</ UnitNumber> <VisitNumber>[id number]</VisitNumber> <PatientName>ANANTH SIMPSON< /PatientName> <DateOfBirth>1930</DateOfBirth> <Location>[facility]</Location> < ServiceDate>06/03/17</ServiceDate> <MNE>ESINDI</MNE> <OrderingPhy>Raghu Markos Julio DO</OrderingPhy> <OrderingPhyMNE>f rep ord dr bae</OrderingPhyMNE> < DictatingPhyMNE>f rep dict dr bae</DictatingPhyMNE> <CCListMNE>f rep ct mne</ CCListMNE> <AdmittingPhyMNE>f pt admit dr bae</AdmittingPhyMNE> <AttendingPhyMNE >f pt attend dr bae</AttendingPhyMNE> <ConsultingPhyMNE>f pt consult dr bae</ConsultingPhyMNE> <FamilyPhyMNE>f pt fam dr bae</FamilyPhyMNE> <OtherPhyMNE>f pt other dr bae</OtherPhyMNE> < PrimaryPhyMNE>f pt prim care dr bae</PrimaryPhyMNE> <ReferringPhyMNE>f pt referring dr bae</ReferringPhyMNE> Patient Name: ANANTH SIMPSON Unit Number: [id number] Dictated: 06/03/171843 Transcribed: 06/03/171843 [facility] Printed Date/Time: [~ rep prt dt]/[~ rep prt tm] [~ rep ct labl] - [~ rep ct ivnm] [facility] Radiology Department [place] [id number] Dictated: 06/03/171843 Transcribed: 06/03/171843 [facility] Printed Date/Time: [~ rep prt dt]/[~ rep prt tm] [~ rep ct labl] - [~ rep ct ivnm] [~ rep ct add3]] PELVIS NO IV/ORAL CONT (CT) HISTORY: 87 years-old Female worsening R hip pain, hardware loosening progressively worsened right hip pain with hardware loosening described on comparison studies. COMPARISON: Right hip CT of same day, CT abdomen and pelvis 09/04/2016 TECHNIQUE: Multiple axial CT images of the pelvis were obtained without contrast. A dose lowering technique was used consistent with the principals of ALARA. FINDINGS: Moderate diffuse body wall edema. Extensive vascular calcifications are seen. Evaluation of the pelvic structures is limited secondary to streak artifact from right hip arthroplasty. Urinary bladder is unremarkable. Uterus appears atrophic or alternatively may be surgically absent. Noninflamed colonic diverticulosis. The appendix appears noninflamed. No focal bowel wall thickening or pneumoperitoneum. No bulky pelvic adenopathy identified. Postsurgical changes of prior posterior decompression with interbody fusion seen involving the lower lumbar spine, partially imaged. There is 7 mm anterolisthesis of L4 on L5, unchanged. No evidence of hardware complication involving the lower lumbar spine. The bones are moderately demineralized. Minimal linear sclerosis is seen involving the inferior right sacral ala on image 271 of series 4 which appears unchanged suggesting remote insufficiency fracture, nicely demonstrated on the coronal images and also on image 276 of series 4 no definite acute insufficiency fracture of the sacrum identified. No acute pelvic fracture identified. Moderate left hip osteoarthritis. Right hip arthroplasty noted with previous described lucency adjacent to the distal right femoral stem outside the [id number]. Degenerative changes involve the pubic symphysis, severe in nature. Mild to moderate diffuse body wall edema. No focal fluid collection or soft tissue mass identified. IMPRESSION: 1. Right hip arthroplasty in place with previously described periprosthetic lucency involving the distal right femoral stem outside the [id number]. No evidence of hardware complication on this study. 2. No acute fracture or dislocation identified. Please note however that the bones are moderately demineralized which limits evaluation for acute nondisplaced fracture. 3. Suspected remote insufficiency fracture of the inferior right sacral ala. 4. Prior posterior decompression with interbody fusion of the lower lumbar spine, partially imaged. 5. Colonic diverticulosis without diverticulitis. The above report was generated using voice recognition software. It may contain grammatical, syntax or spelling errors. Electronically signed by: Rakan Grimes M.D. 06/03/2017 6:53 PM Dictated Date/Time: 06/03/2017 6:44 PM The status of this report is Signed. Draft = Not yet reviewed or approved by Radiologist. Signed = Reviewed and approved by Radiologist. <AttendingPhy>Jama Gutierrez M.D.</AttendingPhy> <FamilyPhy>Reuben Quezada M.D.</FamilyPhy> <PrimaryPhy>Cooper Hart M.D.</PrimaryPhy > <UnitNumber>[id number]</UnitNumber> <VisitNumber>[id number]</VisitNumber> < PatientName>ANANTH SIMPSON</PatientName> <DateOfBirth>1930</DateOfBirth> < Location>[facility]</Location> <ServiceDate>06/03/17</ServiceDate> <MNE>ESINDI</MNE> <OrderingPhy>Jama Gutierrez M.D.</OrderingPhy> <OrderingPhyMNE>f rep ord dr bae</OrderingPhyMNE> <DictatingPhyMNE>f rep dict dr bae</DictatingPhyMNE> < CCListMNE>f rep ct mne</CCListMNE> <AdmittingPhyMNE>f pt admit dr bae</ AdmittingPhyMNE> <AttendingPhyMNE>f pt attend dr bae</AttendingPhyMNE> <ConsultingPhyMNE>f pt consult dr bae</ConsultingPhyMNE> <FamilyPhyMNE>f pt fam dr bae</FamilyPhyMNE> <OtherPhyMNE>f pt other dr bae</OtherPhyMNE> < PrimaryPhyMNE>f pt prim care dr bae</PrimaryPhyMNE> <ReferringPhyMNE>f pt referring dr bae</ReferringPhyMNE> Patient Name: ANANTH SIMPSON Unit Number: [id number] Dictated: 06/03/171823 Transcribed: 06/03/171824 [facility] Printed Date/Time: [~ rep prt dt]/[~ rep prt tm] [~ rep ct labl] - [~ rep ct ivnm] [facility] [place] [place] [address] Dictated: 06/03/171823 Transcribed: 06/03/171824 [facility] Printed Date/Time: [~ rep prt dt]/[~ rep prt tm] [~ rep ct labl] - [~ rep ct ivnm] [~ rep ct add3]] R HIP-LOWER EXTREMITY WITHOUT HISTORY: 87 years-old Female worsening right hip pain, hardware loosening progressively worsened chronic right hip pain with hardware loosening. Right hip arthroplasty. COMPARISON: Pelvis radiographs 06/03/2017 TECHNIQUE: Multiple axial CT images of the right lower extremity were obtained without contrast. A dose lowering technique was used consistent with the principals of ALARA. FINDINGS: Right hip arthroplasty noted. The acetabular component appears intact without complication. There is lucency surrounding the distal femoral stem measuring approximately 5 mm distally as seen on image 64 of series 500. No periprosthetic fracture identified. The bones are moderately demineralized. No acute fracture or dislocation is identified. Advanced degenerative changes are seen within the pubic symphysis. The imaged right hemipelvis appears intact. Extensive Vascular vascular calcifications are noted. Streak artifact from arthroplasty hardware limits evaluation of the soft tissues. No focal soft tissue collection or mass identified. There is mild atrophy of the musculature about the right hip. IMPRESSION: 1. Right hip arthroplasty noted with redemonstration of periprosthetic lucency noted along the distal aspect of the femoral stem suggesting hardware loosening. No periprosthetic fracture identified. 2. No focal soft tissue abnormality or soft tissue collection identified. 3. Moderate bone demineralization. The above report was generated using voice recognition software. It may contain grammatical, syntax or spelling errors. Electronically signed by: Rakan Grimes M.D. 06/03/2017 6:37 PM Dictated Date/Time: 06/03/2017 6:24 PM The status of this report is Signed. Draft = Not yet reviewed or approved by Radiologist. Signed = Reviewed and approved by Radiologist. <AttendingPhy>Jama Gutierrez M.D.</AttendingPhy> <FamilyPhy>Reuben Quezada M.D.</FamilyPhy> <PrimaryPhy>Cooper Hart M.D.</PrimaryPhy > <UnitNumber>[id number]</UnitNumber> <VisitNumber>[id number]</VisitNumber> < PatientName>ANANTH SIMPSON</PatientName> <DateOfBirth>1930</DateOfBirth> < Location>[facility]</Location> <ServiceDate>06/03/17</ServiceDate> <MNE>ESINDI</MNE> <OrderingPhy>Jama Gutierrez M.D.</OrderingPhy> <OrderingPhyMNE>f rep ord dr bae</OrderingPhyMNE> <DictatingPhyMNE>f rep dict dr bae</DictatingPhyMNE> < CCListMNE>f rep ct [place]</CCListMNE> <AdmittingPhyMNE>f pt admit dr bae</ AdmittingPhyMNE> <AttendingPhyMNE>f pt attend dr bae</AttendingPhyMNE> <ConsultingPhyMNE>f pt consult dr bae</ConsultingPhyMNE> <FamilyPhyMNE>f pt fam dr bae</FamilyPhyMNE> <OtherPhyMNE>f pt other dr bae</OtherPhyMNE> < PrimaryPhyMNE>f pt prim care dr bae</PrimaryPhyMNE> <ReferringPhyMNE>f pt referring dr bae</ReferringPhyMNE> Impression Assessment and Plan Orthopedics/right total hip arthroplasty hardware loosening/insufficiency fracture of inferior right sacral jong-- Patient will be admitted to the medical surgical floor for pain management. Tylenol when necessary mild pain, [place] when necessary moderate pain, morphine sulfate IV when necessary severe pain She has been seen by Dr. Roldan, who referred her to a physician in [place], who then referred her to Dr. Plaza at [facility]. The patient continues to have pain, which worsened considerably recently, and is unable to get an appointment with Dr. Plaza until September. I discussed with family further options, and they would like to know there physicians in either [place] or [place] that possibly see her sooner. Right lower extremity cellulitis with surface abrasion Start on daptomycin IV and Zosyn IV. Add Floranex 4 tablets by mouth 3 times a day with meals and at bedtime. Follow clinical examination. CAD/hypertension/atrial fibrillation-- Continue amiodarone 200 mg by mouth daily. End-stage renal disease on hemodialysis Sunday, Sunday and Sunday-- Continue Renagel. 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 GERD--continue pantoprazole 40 mg by mouth daily. Hyperlipidemia-- Continue Crestor 10 mg by mouth at bedtime. Hyperuricemia-- Continue allopurinol 50 mg daily Constipation-- Continue sennosides docusate, MiraLAX. COPD-- Continue do nebs every 4 hours when necessary. Diabetes mellitus-- Placement Accu-Cheks before meals and at bedtime with NovoLog coverage per scale. DVT/PE history Level of Care Med/Surg Advanced Directives Existing Advance Directive: No Existing Living Will: Yes Existing Power of Forepart [place]: Yes Resuscitation Status FULL RESUSCITATION VTE Prophylaxis VTE Risk Assessment Done? Y/N: Yes Risk Level: High Given or contraindicated: Unfractionated heparin SQ
[2017-06-03] MEDS ORDERED: PIPERACILL/TAZOBAC CONSULT ACTIVE PRN (19:00)
[2017-06-03] MEDS ORDERED: DEXTROSE 50% 50 ML SYR IV PRN (19:15)
[2017-06-03] MEDS ORDERED: GLUCOSE 40% GEL 15 GM TUBE PO PRN (19:15)
[2017-06-03] MEDS ORDERED: GLUCOSE 10 TABS/TUBE PO PRN (19:15)
[2017-06-03] MEDS ORDERED: GLUCAGON FOR INJ 1 MG VIAL SQ PRN (19:15)
[2017-06-03] MEDS ORDERED: PIPERACILL/TAZOBAC IV 3.375 GM in DEXTROSE 5% 100ML IV ONE (19:30)
--- NOTE | 2017-06-03 19:49 | EMERGENCY ROOM VISIT NOTE ---
History Report prepared by Barbara: Britt Holland Under the Supervision of: Dr. Markos Krishnamurthy D.O. First contact with patient: 13:45 Chief Complaint: HIP PAIN Stated Complaint: R HIP PAIN History of Present Illness The patient is an 87 year old female who presents to the Emergency Room with complaints of worsening back pain starting 3 days ago. The patient has had right sided back pain for the past 17 years after her right hip replacement. 3 days ago, she started having pain across her back which wraps around her right hip and into the front. She was not doing anything in particular when the pain started. The pain worsens with movement. The pain improves when she sits back down. She is having difficulty moving her left leg which is her "good leg". She was able to move her left leg more easily 1 week ago. She denies any new tingling or numbness, difficulty urinating, change in bowel movement, abdominal pain, or fever. She denies any recent trauma or falls. She has a history of back surgery. She denies any history of cancer. She is usually able to ambulate with a walker. She uses a wheelchair at times. She saw her orthopedic surgeon last week and was told that the problem is with her previous hip replacement. Source of History: patient, family Onset: 3 days ago Position: back (lower) Quality: other (pain) Timing: worsening Modifying Factors (Worsening): movement Modifying Factors (Relieving): rest Associated Symptoms: No fevers, No abdominal pain, No urinary symptoms, No numbness Note: Pt reports right hip pain. Pt denies change in bowel movement. Review of Systems See HPI for pertinent positives & negatives. A total of 10 systems reviewed and were otherwise negative. Past Medical & Surgical Medical Problems: (1) Ac Myocrd Infrct,Oth Inferior Wall,Subseq Epis Car (2) Acute kidney injury (3) Anemia (4) Aortocoronary Bypass (5) Beta-hemolytic group B streptococcal sepsis (6) Bronchopneumonia (7) Cellulitis (8) Cellulitis of right lower extremity without foot (9) CHF exacerbation (10) Chronic Kidney Disease, Stage Iii (Moderate) (11) Chronic kidney disease, stage IV (severe) (12) Chronic kidney disease, stage V (13) Coronary artery disease (14) Coronary Atherosclerosis Of [place] Coronary Vessel (15) Diab Qiana Wo Compl, Type Ii Or Unspec Type, Not Uncntrld (16) Diabetes (17) DVT (deep venous thrombosis) (18) Dyspnea (19) 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 (20) ESRD (end stage renal disease) on dialysis (21) Hypertension (22) Hypertension Nos (23) Hypotension (24) Hypoxia (25) Knee Joint Replacement Status (26) Leukocytosis (27) New onset atrial fibrillation (28) NSTEMI (non-ST elevated myocardial infarction) (29) NSTEMI (non-ST elevated myocardial infarction) (30) Old Myocardial Infarct (31) Percutaneous Translum Coron Angioplasty Status (32) Peripheral vascular disease (33) Pneumonia, Organism Nos (34) Positive blood culture (35) Prolonged Q-T interval on ECG (36) Pulmonary embolism (37) Pure Hypercholesterolem (38) Rectal bleeding (39) Right hip pain (40) Sepsis due to infected intravenous catheter (41) Shortness of breath (42) Urin Tract Infection Nos Family History Asthma Cancer SISTER (Breast cancer) Chronic kidney disease MOTHER Diabetes mellitus FATHER Heart disease FATHER Hypertension FATHER MOTHER Kidney disease Kidney stones Stroke Social History Smoking Status: Never Smoker Alcohol Use: none Drug Use: none Marital Status: Housing Status: lives alone Occupation Status: retired Current/Historical Medications Scheduled Allopurinol (Zyloprim), 50 MG PO QAM Amiodarone Hcl (Cordarone), 200 MG PO QAM Heparin Sod (Porcine) (Heparin Sq), 0.5 ML SC BID Multiple Vitamin (Renal Multivitamin Formul), 2 TABS PO QAM Nitroglycerin (Nitrostat), 0.4 MG UT PRN Nutritional Supplements (Colon Formula), 1 CAP PO QAM Pantoprazole (Protonix), 40 MG PO QAM Polyethylene Glycol 3350 (Miralax), 17 GM PO AMPM Rosuvastatin Calcium (Crestor), 10 MG PO HS Sennosides-Docusate Sodium (Stool Softener), 1 TAB PO BID Sevelamer Hydroch (Renagel), 800 MG PO TIDM Scheduled PRN Ipratropium-Albuterol (Duoneb), 1 TREATMENT INH Q4H PRN for SOB/Wheezing Allergies Coded Allergies: No Known Allergies (Unverified , 04/20/17) Physical Exam Vital Signs Date Time Temp Pulse Resp B/P (MAP) Pulse Ox O2 Delivery O2 Flow Rate FiO2 06/03/17 16:28 74 18 145/54 96 Nasal Cannula 2.0 06/03/17 14:39 65 18 120/56 96 Nasal Cannula 2.0 06/03/17 13:49 86 Room Air 06/03/17 13:44 36.7 68 18 137/77 92 Nasal Cannula 2.0 Physical Exam GENERAL: chronically ill appearing, sitting up in bed, in mild distress EYE EXAM: normal conjunctiva OROPHARYNX: no exudate, no erythema, lips, buccal mucosa, and tongue normal and mucous membranes are moist NECK: supple, no nuchal rigidity, no adenopathy, non-tender LUNGS: Clear to auscultation. Normal chest wall mechanics HEART: no murmurs, S1 normal and S2 normal ABDOMEN: abdomen soft, non-tender, normo-active bowel sounds, no masses, no rebound or guarding. BACK: Acute reproducible lower lumbar tenderness and bilateral paraspinal tenderness, no deformity or step off. SKIN: no rashes and no bruising UPPER EXTREMITIES: upper extremities are grossly normal. LOWER EXTREMITIES: Able to flex bilateral hips and hold in air for >5 seconds when assisted with initial movement. Flexion/extension of the knee, ankle, EHL 5 /5 bilaterally. Gross sensation intact. NEURO EXAM: Normal sensorium, cranial nerves II-XII grossly intact, normal speech, no gross weakness of arms Medical Decision & Procedures ER Provider Diagnostic Interpretation: Radiology results as stated below per my review and the radiologist's interpretation: R PELVIS/UNILATERAL HIP 2-3VIEWS HISTORY: 87 years-old Female r hip pain acute right-sided hip pain with history of prior right hip arthroplasty COMPARISON: Right hip radiographs 05/03/2017 TECHNIQUE: AP view of the pelvis with 2 views of the right hip FINDINGS: Right hip arthroplasty hardware is noted with persistent lucency adjacent to the distal femoral stem nicely seen on image 3 of 3. Bones are moderately demineralized. No periprosthetic fracture or dislocation identified. Imaged right hemipelvis appears intact. Moderate osteophytes of the left hip. Fusion hardware of the lower lumbar spine is noted. There are peripheral vascular calcifications. IMPRESSION: 1. No acute fracture or dislocation. 2. Right hip arthroplasty. Persistent periprosthetic lucency adjacent to the distal femoral stem suggest hardware loosening. The above report was generated using voice recognition software. It may contain grammatical, syntax or spelling errors. Electronically signed by: Rakan Grimes M.D. 06/03/2017 4:05 PM Dictated Date/Time: 06/03/2017 4:02 PM LUMBAR SPINE WITHOUT HISTORY: 87 years-old Female lower back pain acute low back pain. COMPARISON: CT abdomen and pelvis 09/04/2016 TECHNIQUE: Multiple axial CT images of the lumbar spine were obtained without IV contrast. A dose lowering technique was used consistent with the principals of ANGELINE. FINDINGS: There is 8 millimeters anterolisthesis L4 on L5 and 4 mm anterolisthesis L3 on L4, unchanged from prior study. Prior posterior decompression with interbody enrique and screw fusion at L3-L5. Discectomy changes are seen at the L4-L5 level. No evidence of hardware complication. The bones are moderately demineralized. Moderate endplate degenerative changes seen at L2-L3 with associated endplate irregularity, mildly progressed from prior study dated 09/04/2016. No acute compression deformity or malalignment identified. Multilevel moderate to severe facet arthropathy is noted. No acute fracture or subluxation is identified. The sacrum appears intact without acute sacral insufficiency fracture identified. Evaluation of the central canal and foramina is limited secondary to streak artifact from the hardware. There is extensive calcification of the abdominal aorta and abdominal vasculature. Renal calcifications are also noted with renal thinning. There are small bilateral pleural effusions. Right basilar atelectasis noted. IMPRESSION: 1. No acute fracture or subluxation of the lumbar spine. 2. Osteopenia with multilevel advanced facet arthropathy. Mildly progressive endplate irregularity at L2-L3 is likely degenerative in nature. If there is concern for possible discitis osteomyelitis, follow-up MRI with contrast may be considered. 3. Prior posterior decompression with interbody fusion at L3-L5. There is unchanged mild anterolisthesis of L3 on L4 and L4 on L5. The above report was generated using voice recognition software. It may contain grammatical, syntax or spelling errors. Electronically signed by: Rakan Grimes M.D. 06/03/2017 4:00 PM Dictated Date/Time: 06/03/2017 3:52 PM Laboratory Results 06/03/17 14:43 Red Blood Count 3.78, Mean Corpuscular Volume 101.3, Mean Corpuscular Hemoglobin 31.0, Mean Corpuscular Hemoglobin Concent 30.5, Mean Platelet Volume 9.9, Neutrophils (%) (Auto) 63.2, Lymphocytes (%) (Auto) 20.1, Monocytes (%) ( Auto) 12.6, Eosinophils (%) (Auto) 3.5, Basophils (%) (Auto) 0.4, Neutrophils # (Auto) 3.42, Lymphocytes # (Auto) 1.09, Monocytes # (Auto) 0.68, Eosinophils # ( Auto) 0.19, Basophils # (Auto) 0.02 06/03/17 14:43 Test 06/03/17 14:43 White Blood Count 5.41 K/uL (4.8-10.8) Red Blood Count 3.78 M/uL (4.2-5.4) Hemoglobin 11.7 g/dL (12.0-16.0) Hematocrit 38.3 % (37-47) Mean Corpuscular Volume 101.3 fL (80-100) Mean Corpuscular Hemoglobin 31.0 pg (25-34) Mean Corpuscular Hemoglobin Concent 30.5 g/dl (32-36) Platelet Count 124 K/uL (130-400) Mean Platelet Volume 9.9 fL (7.4-10.4) Neutrophils (%) (Auto) 63.2 % Lymphocytes (%) (Auto) 20.1 % Monocytes (%) (Auto) 12.6 % Eosinophils (%) (Auto) 3.5 % Basophils (%) (Auto) 0.4 % Neutrophils # (Auto) 3.42 K/uL (1.4-6.5) Lymphocytes # (Auto) 1.09 K/uL (1.2-3.4) Monocytes # (Auto) 0.68 K/uL (0.11-0.59) Eosinophils # (Auto) 0.19 K/uL (0-0.5) Basophils # (Auto) 0.02 K/uL (0-0.2) RDW Standard Deviation 60.9 fL (36.4-46.3) RDW Coefficient of Variation 16.5 % (11.5-14.5) Immature Granulocyte % (Auto) 0.2 % Immature Granulocyte # (Auto) 0.01 K/uL (0.00-0.02) Anion Gap 9.0 mmol/L (3-11) Est Creatinine Clear Calc Drug Dose 9.1 ml/min Estimated GFR () 9.9 Estimated GFR (Non- 8.5 BUN/Creatinine Ratio 9.0 (10-20) Calcium Level 8.8 mg/dl (8.5-10.1) Laboratory results per my review. Medications Administered Medications (Trade) Dose Ordered Sig/Janeth Route Start Time Stop Time Status Last Admin Dose Admin Morphine Sulfate (MoRPHine SULFATE INJ) 4 mg NOW STAT IV 06/03/17 14:19 06/03/17 14:20 DC 06/03/17 14:38 4 MG ED Course ED COURSE: Vital signs were reviewed and showed normal vitals. The patients medical record was reviewed The above diagnostic studies were performed and reviewed. ED treatments and interventions as stated above. 1402: The patient was evaluated in room C11B. A complete history and physical examination was performed. 1419: Morphine Sulfate 4 mg IV. 1618: Upon reevaluation, the patient is unable to move. I discussed my findings with the patient and her family and they understand and agree with the treatment plan. She goes to dialysis Sunday, Sunday, and Sunday. Her last dialysis was Sunday. Based on the patients age, coexisting illnesses, exam and lab findings the decision to treat as an inpatient was made. The patient remained stable while under my care. The patient will be evaluated for further management. 1650: I reviewed the patient's case with Dr. Gutierrez, [facility] hospitalist. He will evaluate the patient for further management. Medical Decision Differential diagnoses includes but is not limited to lumbar radiculopathy, muscle strain, facture, cauda equina, mass, and disc herniation. Patient is an 87-year-old female who has periprosthesis loosening in her right hip that presents to the ER for lower back pain and endometritis function. She lives at home and normally eminence with a walker. Pain has been worsening since Sunday when she had imaging of her back. She now requires 2 people to assist her movement. X-rays of the hip and pelvis show no acute fracture but loosening of the prosthesis. CT of the back shows no acute pathology. No signs of infection without fever or leukocytosis. She is given IV morphine and became hypoxic. Patient was still uncomfortable and unable to ambulate. Patient was admitted to the hospital with him today dysfunction, back pain and hypoxic secondary to morphine. Patient is dialysis dependent and needs this tomorrow. Medication Reconcilliation Current Medication List: was personally reviewed by me Blood Pressure Screening Patient's blood pressure: Normal blood pressure Blood pressure disposition: Did not require urgent referral Consults Time Called: 1623 Consulting Physician: Dr. Gutierrez [facility] [place] hospitalist Returned Call: 1650 I reviewed the patient's case with him. He will evaluate the patient for further management. Impression Primary Impression: Right hip pain Additional Impressions: Back pain Ambulatory dysfunction Scribe Attestation The scribe's documentation has been prepared under my direction and personally reviewed by me in its entirety. I confirm that the note above accurately reflects all work, treatment, procedures, and medical decision making performed by me. Departure Information Dispostion Being Evaluated By Hospitalist Referrals Cooper Hart M.D. (PCP) Patient Instructions My [facility] Problem Qualifiers Additional Impressions: Back pain Back pain location: low back pain Chronicity: acute Back pain laterality: bilateral Sciatica presence: unspecified whether sciatica present Qualified Codes: M54.5 - Low back pain
[2017-06-03] MEDS: SEVELAMER HYDROCH 800 MG TAB PO SCH (19:55)
[2017-06-03] MEDS: LACTOBACILLUS ACIDOPHILUS (FLORANEX) TAB PO SCH (19:55)
[2017-06-03] MEDS ORDERED: INFLUENZA VACCINE HIGH DOSE 65+ 0.5 ML SYR IM. ONE (20:00)
[2017-06-03] MEDS ORDERED: DAPTOmycin IV 450 MG in SODIUM CHLORIDE 0.9% 50ML 50 ML IV SCH (20:00)
[2017-06-03] MEDS ORDERED: INFLUENZA ADMINISTRATION CHARGE ONE (20:00)
[2017-06-03] MEDS ORDERED: SODIUM CHLORIDE 0.9% 1000ML 500 ML IV SCH (20:00)
[2017-06-03] MEDS ORDERED: PIPERACILL/TAZOBAC IV 3.375 GM in DEXTROSE 5% 100ML 100 ML IV SCH (21:00)
[2017-06-03] MEDS: DOCUSATE SODIUM/SENNA 50/8.6MG TAB PO SCH (21:15)
[2017-06-03] MEDS: POLYETHYLENE (MIRALAX) 17 GM PACK PO SCH (21:15)
[2017-06-03] MEDS: ROSUVASTATIN CALCIUM 10 MG TAB PO SCH (21:16)
[2017-06-03] MEDS: INSULIN ASPART 100 UNITS/ML 3 ML PEN SC SCH (21:31)
[2017-06-03] MEDS: HEPARIN SOD 5000 UNIT/0.5 ML CARP SC SCH (21:34)
[2017-06-03 22:40] VITALS: O2SAT 98
[2017-06-03 22:57] VITALS: BP 146/76; PULSE 61; TEMP 36.8; O2SAT 99
[2017-06-04] VITALS (22 sets, daily range): BP systolic 99–133; BP diastolic 45–60; PULSE 54–75; TEMP 36.5–36.8; O2SAT 92–94
[2017-06-04] MEDS ORDERED: PIPERACILL/TAZOBAC IV 3.375 GM in DEXTROSE 5% 100ML IV SCH (06:00)
[2017-06-04] MEDS: POLYETHYLENE (MIRALAX) 17 GM PACK PO SCH ×2 (08:36→20:33)
[2017-06-04] MEDS: LACTOBACILLUS ACIDOPHILUS (FLORANEX) TAB PO SCH ×3 (08:37→18:04)
[2017-06-04] MEDS: SEVELAMER HYDROCH 800 MG TAB PO SCH ×3 (08:38→18:04)
[2017-06-04] MEDS: MULTIVITAMIN TAB PO SCH (08:39)
[2017-06-04] MEDS: PANTOprazole SOD 40 MG TAB PO SCH (08:39)
[2017-06-04] MEDS: DOCUSATE SODIUM/SENNA 50/8.6MG TAB PO SCH ×2 (08:39→20:34)
[2017-06-04] MEDS: AMIODARONE 200 MG TAB PO SCH (08:39)
[2017-06-04] MEDS: ALLOPURINOL 100 MG TAB PO SCH (08:40)
[2017-06-04] MEDS: HEPARIN SOD 5000 UNIT/0.5 ML CARP SC SCH ×2 (08:46→20:37)
[2017-06-04] MEDS: INSULIN ASPART 100 UNITS/ML 3 ML PEN SC SCH ×4 (08:46→20:40)
[2017-06-04] MEDS ORDERED: NUTRITIONAL SUPPLEMENTS PO SCH (09:00)
[2017-06-04] MEDS ORDERED: HEPARIN SOD (PORCINE) 1000 UNIT/ML 10 ML VIAL IV SCH ×2 (09:30→10:00)
[2017-06-04] MEDS ORDERED: EPOETIN ALFA 10,000 UNITS/ML VIAL IV. ONE (09:30)
--- NOTE | 2017-06-04 09:36 | Hospitalist Progress Note ---
Hospitalist Progress Note Date of Service Jun 04, 2017. Subjective Pt evaluation today including: conversation w/ patient, conversation w/ family , physical exam, chart review, lab review, review of studies, conversation w/ behavioral consultant, review of inpatient medication list Voiding: no voiding problems (ESRD) Ms. Rahman main complain this morning is the pain in her right hip which she rates as a 4/10 when laying still but increases significantly with any kind of movement. She also feels that she is much weaker on her feet and her daughter agrees. She is normally able to ambulate with a walker but now needs significant assistance. Respiratory: + cough, + sputum (baseline, she coughs and produces sputum most mornings), No shortness of breath Cardiovascular: No chest pain, No palpitations Abdomen: No pain, No nausea, No vomiting, No diarrhea All Other Systems: Reviewed and Negative Medications Medications (Trade) Dose Ordered Sig/Janeth Route Start Time Stop Time Status Last Admin Dose Admin Morphine Sulfate (MoRPHine SULFATE INJ) 4 mg NOW STAT IV 06/03/17 14:19 06/03/17 14:20 DC 06/03/17 14:38 4 MG Allopurinol (Zyloprim Tab) 50 mg QAM PO 06/04/17 09:00 07/04/17 08:59 06/04/17 08:40 50 MG Amiodarone HCl (Cordarone Tab) 200 mg QAM PO 06/04/17 09:00 07/04/17 08:59 06/04/17 08:39 200 MG Heparin Sodium (Porcine) (Heparin Sq 5000 Unit/0.5ml) 2,500 unit BID SC 06/03/17 21:00 07/03/17 20:59 06/04/17 08:46 2,500 UNIT Multivitamins (Multivitamin Tab) 2 tab QAM PO 06/04/17 09:00 07/04/17 08:59 06/04/17 08:39 2 TAB Pantoprazole Sodium (Protonix Tab) 40 mg QAM PO 06/04/17 09:00 07/04/17 08:59 06/04/17 08:39 40 MG Rosuvastatin Calcium (Crestor Tab) 10 mg HS PO 06/03/17 21:00 07/03/17 20:59 06/03/17 21:16 10 MG Senna/Docusate Sodium (Senokot S Tab) 1 tab BID PO 06/03/17 21:00 07/03/17 20:59 06/04/17 08:39 1 TAB Sevelamer HCl (Renagel Tab) 800 mg TIDM PO 06/03/17 18:00 07/03/17 17:59 06/04/17 08:38 800 MG Polyethylene (Miralax Powder Packet) 17 gm BID PO 06/03/17 21:00 07/03/17 20:59 06/04/17 08:36 17 GM Daptomycin 450 mg/ Sodium Chloride 59 ml @ 100 mls/hr Q2D@2200 IV 06/03/17 20:00 06/13/17 19:59 06/03/17 19:56 100 MLS/HR Lactobacillus Acidophilus (Floranex Tab) 4 tab TIDM PO 06/03/17 18:00 07/03/17 17:59 06/04/17 08:37 4 TAB Piperacillin Sod/ Tazobactam Sod 3.375 gm/Dextrose 115 ml @ 230 mls/hr NOW ONCE IV 06/03/17 19:30 06/03/17 19:59 DC 06/03/17 19:55 230 MLS/HR Piperacillin Sod/ Tazobactam Sod 3.375 gm/Dextrose 115 ml @ 28.75 mls/ hr Q12H IV 06/04/17 06:00 06/13/17 17:59 06/04/17 05:20 28.75 MLS/HR Sodium Chloride 500 ml @ 50 mls/hr Q10H IV 06/03/17 20:00 06/04/17 05:59 DC 06/03/17 21:13 50 MLS/HR Objective Vital Signs Date Time Temp Pulse Resp B/P (MAP) Pulse Ox O2 Delivery O2 Flow Rate FiO2 06/04/17 07:30 Nasal Cannula 2.0 06/04/17 07:21 36.5 60 18 110/49 (69) 93 Nasal Cannula 2.0 06/04/17 00:00 Nasal Cannula 2.0 06/03/17 22:57 36.8 61 16 146/76 (99) 99 Nasal Cannula 2.0 06/03/17 22:40 98 Nasal Cannula 2.0 06/03/17 19:30 Nasal Cannula 2.0 06/03/17 18:57 36.4 66 18 132/53 (79) 94 Nasal Cannula 4.0 06/03/17 18:26 69 18 114/46 96 Room Air 06/03/17 17:30 96 Nasal Cannula 2.0 06/03/17 16:28 74 18 145/54 96 Nasal Cannula 2.0 06/03/17 14:39 65 18 120/56 96 Nasal Cannula 2.0 06/03/17 13:49 86 Room Air 06/03/17 13:44 36.7 68 18 137/77 92 Nasal Cannula 2.0 Physical Exam Notes: General: no distress Eyes: normal inspection, PERLL Respiratory: chest non tender, clear to auscultation, normal breath sounds, no respiratory distress, no accessory muscle use Cardiac: regular rate and rhythm, no rub or gallop, III/IV systolic murmur over left and right second intercostal space, left ankle larger than right (per patient this is baseline), no jvd GI/: active bowel sounds, no abd pain or tenderness, soft, non distended Extremities: patient too painful to test strength, tender to palpation over right hip and left ankle Neuro/Psych: alert and oriented x 3, normal mood and affect Skin: normal color, dry, slight erythema over bilateral ankles Laboratory Results Last 24 Hours Test 06/03/17 14:43 06/03/17 19:19 06/03/17 20:31 06/04/17 08:16 White Blood Count 5.41 K/uL Red Blood Count 3.78 M/uL Hemoglobin 11.7 g/dL Hematocrit 38.3 % Mean Corpuscular Volume 101.3 fL Mean Corpuscular Hemoglobin 31.0 pg Mean Corpuscular Hemoglobin Concent 30.5 g/dl Platelet Count 124 K/uL Mean Platelet Volume 9.9 fL Neutrophils (%) (Auto) 63.2 % Lymphocytes (%) (Auto) 20.1 % Monocytes (%) (Auto) 12.6 % Eosinophils (%) (Auto) 3.5 % Basophils (%) (Auto) 0.4 % Neutrophils # (Auto) 3.42 K/uL Lymphocytes # (Auto) 1.09 K/uL Monocytes # (Auto) 0.68 K/uL Eosinophils # (Auto) 0.19 K/uL Basophils # (Auto) 0.02 K/uL RDW Standard Deviation 60.9 fL RDW Coefficient of Variation 16.5 % Immature Granulocyte % (Auto) 0.2 % Immature Granulocyte # (Auto) 0.01 K/uL Sodium Level 139 mmol/L Potassium Level 4.1 mmol/L Chloride Level 99 mmol/L Carbon Dioxide Level 31 mmol/L Anion Gap 9.0 mmol/L Blood Urea Nitrogen 40 mg/dl Creatinine 4.40 mg/dl Est Creatinine Clear Calc Drug Dose 9.1 ml/min Estimated GFR () 9.9 Estimated GFR (Non- 8.5 BUN/Creatinine Ratio 9.0 Random Glucose 154 mg/dl Calcium Level 8.8 mg/dl Bedside Glucose 109 mg/dl 138 mg/dl 93 mg/dl Test 06/04/17 08:47 Assessment and Plan Ms. Rahman is an 87 year old woman here for increasing hip and back pain on the right side likely due to hardware loosening around hip and insufficiency fracture of the sacral ala. She has been seen by Dr. Roldan recently, who referred her to a physician in [place], who then referred her to Dr. Plaza at [facility]. The patient continues to have pain, which worsened considerably recently, and is unable to get an appointment with Dr. Plaza until September. Right total hip arthroplasty hardware loosening/insufficiency fracture of inferior right sacral jong-- Patient will be admitted to the medical surgical floor for pain management. Tylenol when necessary mild pain, [place] changed to oxycodone 5-10mg q6h, morphine sulfate IV when necessary severe pain. Orthopedic consult. Right lower extremity cellulitis with surface abrasion - Antibiotics stopped by ID as they do not see evidence for a cellulitis. CAD/hypertension/atrial fibrillation-- Continue amiodarone 200 mg by mouth daily. End-stage renal disease on hemodialysis Sunday, Sunday and Sunday-- Continue Renagel. Consult her certified detention deputy Dr. Quezada. Dialysis today GERD--continue pantoprazole 40 mg by mouth daily. Hyperlipidemia-- Continue Crestor 10 mg by mouth at bedtime. Hyperuricemia-- Continue allopurinol 50 mg daily Constipation-- Continue sennosides docusate, MiraLAX. COPD-- Continue do nebs every 4 hours when necessary. 2L NC at night and prn during the day Diabetes mellitus-- Placement Accu-Cheks before meals and at bedtime with NovoLog coverage per scale. DVT prophylaxis - heparin subq Resuscitation status - full resuscitation
[2017-06-04 09:58] LABS: HEMATOCRIT 35.1 % (37-47); MEAN CELL VOLUME 100.3 fL (80-100); MEAN CORPUSCULAR HGB CONC 31.9 g/dl (32-36); MEAN PLATELET VOLUME 10.4 fL (7.4-10.4); PLATELET COUNT 124 K/uL (130-400); WHITE BLOOD COUNT 5.69 K/uL (4.8-10.8)
[2017-06-04] MEDS ORDERED: EPOETIN ALFA INJ 8,000 UNITS in SYRINGE 0 ML IV. SCH (10:00)
[2017-06-04 10:22] LABS: BUN/CREATININE RATIO 9.6 (10-20); CALCIUM 8.4 mg/dl (8.5-10.1); POTASSIUM 4.4 mmol/L (3.5-5.1)
--- NOTE | 2017-06-04 10:23 | Progress Note ---
Progress Note Date of Service Jun 04, 2017. Progress Note ID Consult Dictated #[id number] A/P: 1. Hip pain -No clear evidence of cellulitis, will follow off of abx, especially with elevated creat -thank you
[2017-06-04] MEDS: OXYCODONE HCL IR 5 MG TAB (IMMEDIATE RELEASE) PO PRN ×2 (12:22→19:31)
--- NOTE | 2017-06-04 12:43 | INFECT. DISEASE CONSULTATION ---
DATE OF CONSULTATION: 06/04/2017 REQUESTING PHYSICIAN: Jama Gutierrez MD HISTORY OF PRESENT ILLNESS: This is an 87-year-old female who was admitted with worsening hip pain. She does have a history of a right hip replacement which was done 17 years ago. She has had loosening of this and is seeking orthopedic consultation for revision. She has had worsening pain in her hip. There was some notice of lower extremity erythema, which her daughter who was at the bedside for my examination states this is chronic and unchanged. She was placed on daptomycin and Zosyn for cellulitis and infectious disease was called for daptomycin use. Other than pain, she has no complaints. She is afebrile. She denies chest pain, cough, shortness of breath, nausea, vomiting or diarrhea. Her white blood cell count was normal. Her creatinine is elevated at 4.4. No micro was done as part of her initial workup. All remaining review of systems is reviewed and unremarkable. PAST MEDICAL HISTORY: She has a history of coronary artery disease with bypass, chronic kidney disease, type 2 diabetes, hypertension, knee replacement, angioplasty, high cholesterol and hip replacement 17 years ago. FAMILY HISTORY: Noncontributory. SOCIAL HISTORY: Negative for tobacco use, alcohol use or drug use. ALLERGIES: She has no known drug allergies. CURRENT MEDICATIONS: Include heparin, Roxicodone, allopurinol, amiodarone, multivitamins, Protonix, Zosyn, Crestor, Senokot, MiraLax, daptomycin, Floranex, Renagel, Tylenol, morphine, DuoNebs. PHYSICAL EXAMINATION: VITAL SIGNS: She is afebrile, pulse 60, respiratory rate 18, blood pressure 110/49, oxygen saturation was 93-99% on 2 liters. GENERAL: She is awake, alert and oriented x3. She is in no acute distress. HEENT: Mucous membranes are moist. Extraocular muscles are intact. HEART: Regular. LUNGS: Clear bilaterally. ABDOMEN: Soft, nontender, nondistended. EXTREMITIES: There is no lower extremity edema. There is minimal erythema of the right lower extremity, this is not warm or tender. Per the patient, this is chronic in nature. LABORATORY STUDIES: CBC today reveals a white blood cell count of 5.6, hemoglobin 11.2, platelets are 124. Chemistry panel reveals sodium of 139, potassium 4.1, chloride 99, bicarbonate 31, BUN 40, creatinine 4.4, glucose is 154. No micro was obtained. Imaging shows hardware on the hip to be She also has lumbar spine hardware which is intact. ASSESSMENT AND PLAN: Hip pain. I do not see any clear evidence of cellulitis at this time, I will hold her antibiotics and follow additional laboratory studies. Thank you for this consultation. BOGDAN
[2017-06-04 16:48] LABS: HEPATITIS B AB NEG
--- NOTE | 2017-06-04 16:56 | Nephrology Consultation ---
Nephrology Consultation Date & Providers Date of Consultation: Jun 04, 2017. Primary Care Provider: Cooper Hart M.D. Referring Provider: Reason for Consultation ESRD requiring HD History of Present Illness Ms. Rahman is an 87 year old white female who is seen at the request of Dr. Hudson to provide inpatient HD and assist w/ medical management. Medical records in the hospital EMR were reviewed and are summarized as follows: Ms. Rahman has ESRD due to cardiorenal syndrome w/ recurrent CHF. She has been on HD since 05/19. She currently dialyzes MWF at [facility] (HD Rx: 4 hr 2K 2Ca F-160 EDW 73.8 kg Heparin 2000 bolus hourly). Her PMH is also significant for long-standing AODM, HTN, PVD w/ bilateral carotid arterial disease, ASCVD s/p CABG x 4 1996 and OA. In 1996 patient suffered an episode of angina. Cardiac catheterization revealed RCA stenosis. Patient required angioplasty with stenting. Post procedure she developed a pseudoaneurysm with a large right groin hematoma which required emergency surgical repair. Due to her ASCVD Ms. Rahman has been on chronic ASA and Plavix therapy. She was hospitalized 09/19 with severe LGI bleeding requiring transfusion w/ 4 U PRBC. In 01/17 she was admitted w/ LLE DVT. Her hospitalization was complicated by infiltration of her L upper arm AVF. She developed a large hematoma and she has required several IJ THC to allow her AVF hematoma to resolve. Her AVF is now being used for HD and patient is scheduled to have her IJ THC removed. Ms. Rahman has a prosthetic R hip. The prosthesis has loosened and is causing her great pain. She is no longer able to ambulate. Ms. Rahman has been admitted for pain management and Orthopedic surgery evaluation. Past Medical/Surgical History Medical: # ASCVD s/p CABG x 4 1996 # Cardiac cath 2006 complicated by pseudoaneurysm of the right femoral artery requiring emergency surgical repair # AODM # HTN # PVD - carotid stenosis # h/o nephrolithiasis # Cholelithiasis # LGI bleed 09/19 Surgical: # R hip prosthesis # h/o R and L IJ THC insertion # AVF creation # R femoral artery pseudoaneurysm repair Allergies Coded Allergies: No Known Allergies (Unverified , 04/20/17) Inpatient Medications Current Inpatient Medications Medications (Trade) Dose Ordered Sig/Janeth Route Start Time Stop Time Status Last Admin Dose Admin Acetaminophen (Tylenol Tab) 650 mg Q4H PRN PO 06/03/17 17:15 07/03/17 17:14 Allopurinol (Zyloprim Tab) 50 mg QAM PO 06/04/17 09:00 07/04/17 08:59 06/04/17 08:40 50 MG Amiodarone HCl (Cordarone Tab) 200 mg QAM PO 06/04/17 09:00 07/04/17 08:59 06/04/17 08:39 200 MG Heparin Sodium (Porcine) (Heparin Sq 5000 Unit/0.5ml) 2,500 unit BID SC 06/03/17 21:00 07/03/17 20:59 06/04/17 08:46 2,500 UNIT Albuterol/ Ipratropium (Duoneb) 3 ml Q4H PRN INH 06/03/17 17:15 07/03/17 17:14 Multivitamins (Multivitamin Tab) 2 tab QAM PO 06/04/17 09:00 07/04/17 08:59 06/04/17 08:39 2 TAB Nitroglycerin (Nitrostat Tab) 0.4 mg PRN UT 06/03/17 17:15 07/03/17 17:14 Pantoprazole Sodium (Protonix Tab) 40 mg QAM PO 06/04/17 09:00 07/04/17 08:59 06/04/17 08:39 40 MG Rosuvastatin Calcium (Crestor Tab) 10 mg HS PO 06/03/17 21:00 07/03/17 20:59 06/03/17 21:16 10 MG Senna/Docusate Sodium (Senokot S Tab) 1 tab BID PO 06/03/17 21:00 07/03/17 20:59 06/04/17 08:39 1 TAB Sevelamer HCl (Renagel Tab) 800 mg TIDM PO 06/03/17 18:00 07/03/17 17:59 06/04/17 08:38 800 MG Polyethylene (Miralax Powder Packet) 17 gm BID PO 06/03/17 21:00 07/03/17 20:59 06/04/17 08:36 17 GM Lactobacillus Acidophilus (Floranex Tab) 4 tab TIDM PO 06/03/17 18:00 07/03/17 17:59 06/04/17 08:37 4 TAB Morphine Sulfate (MoRPHine SULFATE INJ) 2 mg Q2H PRN IV 06/03/17 17:30 06/17/17 17:29 Insulin Aspart (novoLOG ASPART) SLIDING SCALE If C... ACHS SC 06/03/17 21:00 07/03/17 20:59 Glucose (Glucose 40% Gel) UD PRN PO 06/03/17 19:15 07/03/17 19:14 Glucose (Glucose Chew Tab) 1 tabs UD PRN PO 06/03/17 19:15 07/03/17 19:14 Dextrose (Dextrose 50% 50ML Syringe) 50 ml UD PRN IV 06/03/17 19:15 07/03/17 19:14 Glucagon (Glucagon Inj) 1 mg UD PRN SQ 06/03/17 19:15 07/03/17 19:14 Oxycodone HCl (Roxicodone Immediate Rel Tab) `1-2 tabs for pain 1 tab ... Q6H PRN PO 06/04/17 09:30 06/18/17 09:29 06/04/17 12:22 5 MG Family History Asthma Cancer SISTER (Breast cancer) Chronic kidney disease MOTHER Diabetes mellitus FATHER Heart disease FATHER Hypertension FATHER MOTHER Kidney disease Kidney stones Stroke Negative for CKD / ESRD Social History Smoking Status: Never Smoker Smokeless Tobacco Use: No Alcohol Use: none Drug Use: none Marital Status: Housing Status: lives with family Occupation: retired . Retired. Never a smoker. Review of Systems Constitutional: No fever Respiratory: No cough, No dyspnea at rest Cardiovascular: No chest pain Abdomen: No pain A complete review of systems was performed. Pertinent positives are noted above. All other systems are negative. Physical Exam Date Time Temp Pulse Resp B/P (MAP) Pulse Ox O2 Delivery O2 Flow Rate FiO2 06/04/17 15:09 36.6 73 20 133/57 (82) 92 Nasal Cannula 3.0 06/04/17 14:21 36.7 62 132/57 (82) 06/04/17 14:15 62 113/56 06/04/17 14:00 61 119/54 06/04/17 13:45 62 124/55 06/04/17 13:30 67 112/58 06/04/17 13:15 63 120/60 06/04/17 13:00 66 124/54 06/04/17 12:45 64 121/53 06/04/17 12:30 61 119/55 06/04/17 12:15 63 121/52 06/04/17 12:00 62 116/57 06/04/17 11:45 60 110/52 06/04/17 11:30 57 112/45 06/04/17 11:15 54 116/52 06/04/17 11:00 57 118/47 06/04/17 10:45 57 111/45 06/04/17 10:30 56 110/49 06/04/17 10:15 55 122/51 06/04/17 10:00 36.5 58 113/47 (69) 06/04/17 07:30 Nasal Cannula 2.0 06/04/17 07:21 36.5 60 18 110/49 (69) 93 Nasal Cannula 2.0 06/04/17 00:00 Nasal Cannula 2.0 06/03/17 22:57 36.8 61 16 146/76 (99) 99 Nasal Cannula 2.0 06/03/17 22:40 98 Nasal Cannula 2.0 06/03/17 19:30 Nasal Cannula 2.0 06/03/17 18:57 36.4 66 18 132/53 (79) 94 Nasal Cannula 4.0 06/03/17 18:26 69 18 114/46 96 Room Air 06/03/17 17:30 96 Nasal Cannula 2.0 General Appearance: + mild distress Head: normocephalic, atraumatic Eyes: PERRL, EOMI Neck: no adenopathy Respiratory/Chest: lungs clear, no respiratory distress Cardiovascular: regular rate, rhythm Abdomen/GI: normal bowel sounds, non tender, soft Extremities/Musculoskelatal: no pedal edema, + pertinent finding (L upper arm AVF + bruit) Neurologic/Psych: alert, oriented x 3 Skin: warm/dry Laboratory Results Last 24 Hours Test 06/03/17 19:19 06/03/17 20:31 06/04/17 08:16 06/04/17 08:47 Bedside Glucose 109 mg/dl 138 mg/dl 93 mg/dl White Blood Count 5.69 K/uL Red Blood Count 3.50 M/uL Hemoglobin 11.2 g/dL Hematocrit 35.1 % Mean Corpuscular Volume 100.3 fL Mean Corpuscular Hemoglobin 32.0 pg Mean Corpuscular Hemoglobin Concent 31.9 g/dl RDW Standard Deviation 59.3 fL RDW Coefficient of Variation 16.4 % Platelet Count 124 K/uL Mean Platelet Volume 10.4 fL Sodium Level 140 mmol/L Potassium Level 4.4 mmol/L Chloride Level 101 mmol/L Carbon Dioxide Level 30 mmol/L Anion Gap 9.0 mmol/L Blood Urea Nitrogen 48 mg/dl Creatinine 5.00 mg/dl Est Creatinine Clear Calc Drug Dose 8.0 ml/min Estimated GFR () 8.4 Estimated GFR (Non- 7.3 BUN/Creatinine Ratio 9.6 Random Glucose 95 mg/dl Calcium Level 8.4 mg/dl Test 06/04/17 15:45 Hepatitis B Surface Antibody NEG Impression (1) Right hip pain (2) Back pain (3) ESRD (end stage renal disease) on dialysis Recommendations -- Will provide chronic maintenance HD today. Orders placed in EMR and HD notified -- Once condition has stabilized will pursue IJ THC removal -- Recommend low potassium, diabetic, HD diet -- Monitor CBC, PRP -- Defer pain management to primary service -- LS spine and hip x-ray films reviewed: No acute fracture. Lucency near R hip prosthesis suggests "hardware loosening" -- Await Orthopedic surgery evaluation
[2017-06-04] MEDS: ROSUVASTATIN CALCIUM 10 MG TAB PO SCH (20:35)
[2017-06-04] MEDS: MoRPHine SULFATE 2 MG/ML CARP IV PRN (23:37)
[2017-06-05 06:07] LABS: HEMATOCRIT 36.2 % (37-47); MEAN CELL VOLUME 102.3 fL (80-100); MEAN CORPUSCULAR HEMOGLOBIN 30.2 pg (25-34); MEAN CORPUSCULAR HGB CONC 29.6 g/dl (32-36); MEAN PLATELET VOLUME 10.4 fL (7.4-10.4); PLATELET COUNT 115 K/uL (130-400); RED BLOOD COUNT 3.54 M/uL (4.2-5.4); WHITE BLOOD COUNT 5.11 K/uL (4.8-10.8)
[2017-06-05 06:47] LABS: CALCIUM 8.5 mg/dl (8.5-10.1); CREATININE 3.1 mg/dl (0.60-1.20); POTASSIUM 4.4 mmol/L (3.5-5.1)
[2017-06-05 07:08] VITALS: BP 134/60; PULSE 63; TEMP 36.8; O2SAT 99
[2017-06-05] MEDS: MoRPHine SULFATE 2 MG/ML CARP IV PRN ×3 (07:41→23:24)
[2017-06-05] MEDS: LACTOBACILLUS ACIDOPHILUS (FLORANEX) TAB PO SCH ×3 (08:22→17:42)
[2017-06-05] MEDS: MULTIVITAMIN TAB PO SCH (08:22)
[2017-06-05] MEDS: ALLOPURINOL 100 MG TAB PO SCH (08:22)
[2017-06-05] MEDS: PANTOprazole SOD 40 MG TAB PO SCH (08:23)
[2017-06-05] MEDS: DOCUSATE SODIUM/SENNA 50/8.6MG TAB PO SCH ×2 (08:23→21:27)
[2017-06-05] MEDS: SEVELAMER HYDROCH 800 MG TAB PO SCH ×3 (08:23→17:42)
[2017-06-05] MEDS: AMIODARONE 200 MG TAB PO SCH (08:23)
[2017-06-05] MEDS: POLYETHYLENE (MIRALAX) 17 GM PACK PO SCH ×2 (08:24→21:27)
[2017-06-05] MEDS: HEPARIN SOD 5000 UNIT/0.5 ML CARP SC SCH ×2 (08:26→21:34)
[2017-06-05] MEDS: INSULIN ASPART 100 UNITS/ML 3 ML PEN SC SCH ×3 (08:27→13:13)
--- NOTE | 2017-06-05 09:03 | Hospitalist Progress Note ---
Hospitalist Progress Note Date of Service Jun 05, 2017. Subjective Pt evaluation today including: conversation w/ patient, conversation w/ family , physical exam, chart review, lab review, review of studies, review of inpatient medication list Voiding: no voiding problems Ms. Rahman pain is better today, she is at a tolerable pain level. She also feels a bit stronger on her feet and was able to walk to the bathroom with only one assist over the night. Respiratory: No cough, No sputum, No shortness of breath Cardiovascular: No chest pain Abdomen: No pain, No nausea, No vomiting, No diarrhea Musculoskeletal: + joint pain (left hip worse than right today) Female : No dysuria All Other Systems: Reviewed and Negative Medications Medications (Trade) Dose Ordered Sig/Janeth Route Start Time Stop Time Status Last Admin Dose Admin Allopurinol (Zyloprim Tab) 50 mg QAM PO 06/04/17 09:00 07/04/17 08:59 06/05/17 08:22 50 MG Amiodarone HCl (Cordarone Tab) 200 mg QAM PO 06/04/17 09:00 07/04/17 08:59 06/05/17 08:23 200 MG Multivitamins (Multivitamin Tab) 2 tab QAM PO 06/04/17 09:00 07/04/17 08:59 06/05/17 08:22 2 TAB Pantoprazole Sodium (Protonix Tab) 40 mg QAM PO 06/04/17 09:00 07/04/17 08:59 06/05/17 08:23 40 MG Epoetin Joshua 8000 units/Syringe 0.4 ml @ 1 mls/min TODAY@1000 IV. 06/04/17 10:00 06/04/17 13:59 DC 06/04/17 13:45 1 MLS/MIN Oxycodone HCl (Roxicodone Immediate Rel Tab) `1-2 tabs for pain 1 tab ... Q6H PRN PO 06/04/17 09:30 06/18/17 09:29 06/04/17 19:31 10 MG Objective Vital Signs Date Time Temp Pulse Resp B/P (MAP) Pulse Ox O2 Delivery O2 Flow Rate FiO2 06/05/17 07:55 Humidified Oxygen 2.0 06/05/17 07:08 36.8 63 17 134/60 (84) 99 Humidified Oxygen 2.0 06/05/17 00:00 Room Air Humidified Oxygen 06/04/17 22:53 36.8 75 17 99/52 (68) 94 Nasal Cannula 2.0 Humidified Oxygen 06/04/17 15:45 Room Air 06/04/17 15:09 36.6 73 20 133/57 (82) 92 Nasal Cannula 3.0 06/04/17 14:21 36.7 62 132/57 (82) 06/04/17 14:15 62 113/56 06/04/17 14:00 61 119/54 06/04/17 13:45 62 124/55 06/04/17 13:30 67 112/58 06/04/17 13:15 63 120/60 06/04/17 13:00 66 124/54 06/04/17 12:45 64 121/53 06/04/17 12:30 61 119/55 06/04/17 12:15 63 121/52 06/04/17 12:00 62 116/57 06/04/17 11:45 60 110/52 06/04/17 11:30 57 112/45 06/04/17 11:15 54 116/52 06/04/17 11:00 57 118/47 06/04/17 10:45 57 111/45 06/04/17 10:30 56 110/49 06/04/17 10:15 55 122/51 06/04/17 10:00 36.5 58 113/47 (69) Physical Exam Notes: General: no distress Eyes: normal inspection, PERLL Respiratory: chest non tender, clear to auscultation, normal breath sounds, no respiratory distress, no accessory muscle use Cardiac: regular rate and rhythm, no rub or gallop, III/IV systolic murmur over left and right second intercostal space, left ankle larger than right (per patient this is baseline), no jvd GI/: active bowel sounds, no abd pain or tenderness, soft, non distended Extremities: weakness in legs bilaterally, equal pedal strength, no numbness or tingling Neuro/Psych: alert and oriented x 3, normal mood and affect Skin: normal color, dry, patch of dry skin and redness over left ankle Laboratory Results Last 24 Hours Test 06/04/17 15:45 06/04/17 17:04 06/04/17 20:39 06/05/17 05:37 Hepatitis B Surface Antigen NEG Hepatitis B Surface Antibody NEG Bedside Glucose 81 mg/dl 130 mg/dl White Blood Count 5.11 K/uL Red Blood Count 3.54 M/uL Hemoglobin 10.7 g/dL Hematocrit 36.2 % Mean Corpuscular Volume 102.3 fL Mean Corpuscular Hemoglobin 30.2 pg Mean Corpuscular Hemoglobin Concent 29.6 g/dl RDW Standard Deviation 60.9 fL RDW Coefficient of Variation 16.4 % Platelet Count 115 K/uL Mean Platelet Volume 10.4 fL Sodium Level 138 mmol/L Potassium Level 4.4 mmol/L Chloride Level 103 mmol/L Carbon Dioxide Level 30 mmol/L Anion Gap 5.0 mmol/L Blood Urea Nitrogen 19 mg/dl Creatinine 3.10 mg/dl Est Creatinine Clear Calc Drug Dose 12.9 ml/min Estimated GFR () 15.0 Estimated GFR (Non- 13.0 BUN/Creatinine Ratio 6.0 Random Glucose 82 mg/dl Calcium Level 8.5 mg/dl Test 06/05/17 08:00 Bedside Glucose 73 mg/dl Assessment and Plan Ms. Rahman is an 87 year old woman here for increasing hip and back pain on the right side likely due to hardware loosening around hip and insufficiency fracture of the sacral ala. She has been seen by Dr. Roldan recently, who referred her to a physician in [place], who then referred her to Dr. Plaza at [facility]. The patient continues to have pain, which worsened considerably recently, and is unable to get an appointment with Dr. Plaza until September. Right total hip arthroplasty hardware loosening/insufficiency fracture of inferior right sacral jong-- Patient will be admitted to the medical surgical floor for pain management. Tylenol when necessary mild pain, Briggs changed to oxycodone 5-10mg q6h, morphine sulfate IV when necessary for severe pain. Orthopedic consult cancelled for now. Ms. Rahman does not want to have surgery and she is unlikely to be a candidate with all of her comorbidities. We will focus on pain management in order to send her home and she can follow up with Dr. Plaza. PT/OT Right lower extremity cellulitis with surface abrasion - Antibiotics stopped by ID as they do not see evidence for a cellulitis. CAD/hypertension/atrial fibrillation-- Continue amiodarone 200 mg by mouth daily. End-stage renal disease on hemodialysis Sunday, Sunday and Sunday-- Continue Renagel. Consult her security tech Dr. Quezada. Dialysis yesterday GERD--continue pantoprazole 40 mg by mouth daily. Hyperlipidemia-- Continue Crestor 10 mg by mouth at bedtime. Hyperuricemia-- Continue allopurinol 50 mg daily Constipation-- Continue sennosides docusate, MiraLAX. COPD-- Continue duonebs every 4 hours when necessary. 2L NC at night and prn during the day Diabetes mellitus-- Placement Accu-Cheks before meals and at bedtime with NovoLog coverage per scale. DVT prophylaxis - heparin subq Resuscitation status - full resuscitation
--- NOTE | 2017-06-05 11:24 | Nephrology Progress Note ---
Nephrology Progress Note Date of Service Jun 05, 2017. Chief Complaint ESRD requiring HD Subjective Ms. Rahman was seen & examined in her hospital room this am. Her daughter was present at the time of my evaluation. Ms. Rahman was dialyzed yesterday via her AVF without complication. She remains hospitalized for pain management. She hopes to have her IJ THC removed before she is discharged from the hospital Review of Systems Constitutional: No fever Cardiovascular: No chest pain Respiratory: No dyspnea at rest Abdomen: No pain, No nausea, No vomiting Extremities: No leg edema A complete review of systems was performed. Pertinent positives are noted above. All other systems are negative. Vital Signs Last 8 Hrs Date Time Temp Pulse Resp B/P (MAP) Pulse Ox O2 Delivery O2 Flow Rate FiO2 06/05/17 07:55 Humidified Oxygen 2.0 06/05/17 07:08 36.8 63 17 134/60 (84) 99 Humidified Oxygen 2.0 Last Recorded Weight Weight (Kilograms): 74.400 Physical Exam General Appearance: no apparent distress Head: normocephalic, atraumatic Eyes: PERRL, EOMI Neck: supple, + pertinent finding (L IJ THC with clean dry dressing in place) Respiratory/Chest: lungs clear, no respiratory distress Cardiovascular: regular rate, rhythm Abdomen/GI: normal bowel sounds, non tender, soft Extremities/Musculoskelatal: no pedal edema Neurologic/Psych: alert, oriented x 3 Family History Asthma Cancer SISTER (Breast cancer) Chronic kidney disease MOTHER Diabetes mellitus FATHER Heart disease FATHER Hypertension FATHER MOTHER Kidney disease Kidney stones Stroke Negative for CKD / ESRD Social History Smoking Status: Never smoker Smokeless Tobacco Use: No Alcohol Use: none Drug Use: none Marital Status: Housing Status: lives with family Occupation: retired . Retired. Never a smoker. Laboratory Results Past 24 Hours 06/05/17 05:37 06/05/17 05:37 Test 06/04/17 15:45 06/04/17 17:04 06/04/17 20:39 06/05/17 05:37 Hepatitis B Surface Antigen NEG (NEG) Hepatitis B Surface Antibody NEG Bedside Glucose 81 mg/dl (70-90) 130 mg/dl (70-90) Red Blood Count 3.54 M/uL (4.2-5.4) Mean Corpuscular Volume 102.3 fL (80-100) Mean Corpuscular Hemoglobin 30.2 pg (25-34) Mean Corpuscular Hemoglobin Concent 29.6 g/dl (32-36) RDW Standard Deviation 60.9 fL (36.4-46.3) RDW Coefficient of Variation 16.4 % (11.5-14.5) Mean Platelet Volume 10.4 fL (7.4-10.4) Anion Gap 5.0 mmol/L (3-11) Est Creatinine Clear Calc Drug Dose 12.9 ml/min Estimated GFR () 15.0 Estimated GFR (Non- 13.0 BUN/Creatinine Ratio 6.0 (10-20) Calcium Level 8.5 mg/dl (8.5-10.1) Test 06/05/17 08:00 Bedside Glucose 73 mg/dl (70-90) Allergies Coded Allergies: No Known Allergies (Unverified , 04/20/17) Medications Current Inpatient Medications Medications (Trade) Dose Ordered Sig/Janeth Route Start Time Stop Time Status Last Admin Dose Admin Acetaminophen (Tylenol Tab) 650 mg Q4H PRN PO 06/03/17 17:15 07/03/17 17:14 Allopurinol (Zyloprim Tab) 50 mg QAM PO 06/04/17 09:00 07/04/17 08:59 06/05/17 08:22 50 MG Amiodarone HCl (Cordarone Tab) 200 mg QAM PO 06/04/17 09:00 07/04/17 08:59 06/05/17 08:23 200 MG Heparin Sodium (Porcine) (Heparin Sq 5000 Unit/0.5ml) 2,500 unit BID SC 06/03/17 21:00 07/03/17 20:59 06/05/17 08:26 2,500 UNIT Albuterol/ Ipratropium (Duoneb) 3 ml Q4H PRN INH 06/03/17 17:15 07/03/17 17:14 Multivitamins (Multivitamin Tab) 2 tab QAM PO 06/04/17 09:00 07/04/17 08:59 06/05/17 08:22 2 TAB Nitroglycerin (Nitrostat Tab) 0.4 mg PRN UT 06/03/17 17:15 07/03/17 17:14 Pantoprazole Sodium (Protonix Tab) 40 mg QAM PO 06/04/17 09:00 07/04/17 08:59 06/05/17 08:23 40 MG Rosuvastatin Calcium (Crestor Tab) 10 mg HS PO 06/03/17 21:00 07/03/17 20:59 06/04/17 20:35 10 MG Senna/Docusate Sodium (Senokot S Tab) 1 tab BID PO 06/03/17 21:00 07/03/17 20:59 06/05/17 08:23 1 TAB Sevelamer HCl (Renagel Tab) 800 mg TIDM PO 06/03/17 18:00 07/03/17 17:59 06/05/17 08:23 800 MG Polyethylene (Miralax Powder Packet) 17 gm BID PO 06/03/17 21:00 07/03/17 20:59 06/05/17 08:24 17 GM Lactobacillus Acidophilus (Floranex Tab) 4 tab TIDM PO 06/03/17 18:00 07/03/17 17:59 06/05/17 08:22 4 TAB Morphine Sulfate (MoRPHine SULFATE INJ) 2 mg Q2H PRN IV 06/03/17 17:30 06/17/17 17:29 06/05/17 07:41 2 MG Insulin Aspart (novoLOG ASPART) SLIDING SCALE If C... ACHS SC 06/03/17 21:00 07/03/17 20:59 Glucose (Glucose 40% Gel) UD PRN PO 06/03/17 19:15 07/03/17 19:14 Glucose (Glucose Chew Tab) 1 tabs UD PRN PO 06/03/17 19:15 07/03/17 19:14 Dextrose (Dextrose 50% 50ML Syringe) 50 ml UD PRN IV 06/03/17 19:15 07/03/17 19:14 Glucagon (Glucagon Inj) 1 mg UD PRN SQ 06/03/17 19:15 07/03/17 19:14 Oxycodone HCl (Roxicodone Immediate Rel Tab) `1-2 tabs for pain 1 tab ... Q6H PRN PO 06/04/17 09:30 06/18/17 09:29 06/04/17 19:31 10 MG Impression (1) Right hip pain (2) Back pain (3) ESRD (end stage renal disease) on dialysis Recommendations -- Volume status and electrolyte balance are acceptable at this time. Will schedule next HD treatment for tomorrow am. Orders placed in EMR and HD notified -- Will request Vascular Surgery consultation to schedule IJ THC removal -- Recommend low potassium, diabetic, HD diet -- Monitor CBC, PRP -- Defer pain management to primary service -- LS spine and hip x-ray films reviewed: No acute fracture. Lucency near R hip prosthesis suggests "hardware loosening" -- Await Orthopedic surgery evaluation
[2017-06-05] MEDS: OXYCODONE HCL IR 5 MG TAB (IMMEDIATE RELEASE) PO PRN ×2 (13:16→22:20)
[2017-06-05 15:00] VITALS: BP 132/72; PULSE 63; TEMP 36.7; O2SAT 95
[2017-06-05] MEDS ORDERED: NURSING VERBAL MED ORDER ONE ×2 (15:30→18:30)
[2017-06-05] MEDS ORDERED: INSULIN ASPART 100 UNITS/ML 3 ML PEN SC SCH ×2 (18:00→21:00)
[2017-06-05] MEDS ORDERED: ONDANSETRON INJ 2 MG/ML 2 ML VIAL IV PRN (20:45)
[2017-06-05] MEDS: ROSUVASTATIN CALCIUM 10 MG TAB PO SCH (21:27)
[2017-06-05 23:07] VITALS: BP 111/56; PULSE 62; TEMP 36.6; O2SAT 95
[2017-06-06] VITALS (21 sets, daily range): BP systolic 82–128; BP diastolic 15–59; PULSE 44–67; TEMP 36.3–37; O2SAT 100
[2017-06-06] MEDS ORDERED: NURSING VERBAL MED ORDER ONE ×2 (01:00→13:45)
[2017-06-06] MEDS: MoRPHine SULFATE 2 MG/ML CARP IV PRN ×2 (02:09→05:47)
[2017-06-06] MEDS: INSULIN ASPART 100 UNITS/ML 3 ML PEN SC SCH ×4 (05:45→20:52)
[2017-06-06] MEDS ORDERED: HEPARIN SOD (PORCINE) 1000 UNIT/ML 10 ML VIAL IV SCH (06:00)
[2017-06-06] MEDS ORDERED: EPOETIN ALFA 10,000 UNITS/ML VIAL IV. ONE (06:00)
[2017-06-06] MEDS ORDERED: EPOETIN ALFA INJ 8,000 UNITS in SYRINGE 0 ML IV. SCH (06:00)
[2017-06-06] MEDS: POLYETHYLENE (MIRALAX) 17 GM PACK PO SCH ×2 (06:53→21:05)
[2017-06-06] MEDS: AMIODARONE 200 MG TAB PO SCH (07:07)
[2017-06-06] MEDS: ALLOPURINOL 100 MG TAB PO SCH (07:07)
[2017-06-06] MEDS: MULTIVITAMIN TAB PO SCH (07:08)
[2017-06-06] MEDS: LACTOBACILLUS ACIDOPHILUS (FLORANEX) TAB PO SCH ×3 (07:08→18:22)
[2017-06-06] MEDS: SEVELAMER HYDROCH 800 MG TAB PO SCH ×3 (07:08→18:22)
[2017-06-06] MEDS: DOCUSATE SODIUM/SENNA 50/8.6MG TAB PO SCH ×2 (07:08→21:05)
[2017-06-06] MEDS: PANTOprazole SOD 40 MG TAB PO SCH (07:08)
[2017-06-06] MEDS: HEPARIN SOD 5000 UNIT/0.5 ML CARP SC SCH ×2 (08:59→21:12)
--- NOTE | 2017-06-06 10:18 | Dialysis Progress Note ---
Hemodialysis Note Date of Service Jun 06, 2017. Chief Complaint ESRD requiring HD Subjective Ms. Rahman was seen & examined while on HD this am. nursing staffing coordinator reports difficulty cannulating the AVF. Patient had a small venous infiltrate. They are currently using the AVF for arterial access and returning via the IJ THC. Ms. Rahman complains of continued discomfort of her R hip. She was able to bear weight and walk to the bathroom w/ assistance yesterday but this morning she remains visibly uncomfortable. Review of Systems Constitutional: No fever Cardiovascular: No chest pain Respiratory: No dyspnea at rest Abdomen: No pain, No nausea, No vomiting Extremities: No leg edema A complete review of systems was performed. Pertinent positives are noted above. All other systems are negative. Vital Signs Last 8 Hrs Date Time Temp Pulse Resp B/P (MAP) Pulse Ox O2 Delivery O2 Flow Rate FiO2 06/06/17 07:45 Nasal Cannula 2.0 Humidified Oxygen 06/06/17 05:52 36.5 63 17 126/51 (76) 100 Nasal Cannula 2.0 Humidified Oxygen Last Recorded Weight Weight (Kilograms): 74.400 Physical Exam General Appearance: + mild distress (due to R hip discomfort) Head: normocephalic, atraumatic Eyes: PERRL, EOMI Neck: no adenopathy Respiratory/Chest: lungs clear, no respiratory distress Cardiovascular: regular rate, rhythm Abdomen/GI: normal bowel sounds, non tender, soft Extremities/Musculoskelatal: no calf tenderness, no pedal edema, + pertinent finding (AVF + bruit) Neurologic/Psych: alert, oriented x 3 Family History Negative for CKD / ESRD Social History Smoking Status: Never smoker Smokeless Tobacco Use: No Alcohol Use: none Drug Use: none Marital Status: Housing Status: lives with family Occupation: retired . Retired. Never a smoker. Laboratory Results Past 24 Hours Test 06/05/17 11:56 06/05/17 17:58 06/05/17 20:38 06/06/17 05:45 Bedside Glucose 96 mg/dl (70-90) 127 mg/dl (70-90) 148 mg/dl (70-90) 81 mg/dl (70-90) Allergies Coded Allergies: No Known Allergies (Unverified , 04/20/17) Medications Current Inpatient Medications Medications (Trade) Dose Ordered Sig/Janeth Route Start Time Stop Time Status Last Admin Dose Admin Acetaminophen (Tylenol Tab) 650 mg Q4H PRN PO 06/03/17 17:15 07/03/17 17:14 Allopurinol (Zyloprim Tab) 50 mg QAM PO 06/04/17 09:00 07/04/17 08:59 06/06/17 07:07 50 MG Amiodarone HCl (Cordarone Tab) 200 mg QAM PO 06/04/17 09:00 07/04/17 08:59 06/06/17 07:07 200 MG Heparin Sodium (Porcine) (Heparin Sq 5000 Unit/0.5ml) 2,500 unit BID SC 06/03/17 21:00 07/03/17 20:59 06/05/17 21:34 2,500 UNIT Albuterol/ Ipratropium (Duoneb) 3 ml Q4H PRN INH 06/03/17 17:15 07/03/17 17:14 Multivitamins (Multivitamin Tab) 2 tab QAM PO 06/04/17 09:00 07/04/17 08:59 06/06/17 07:08 2 TAB Nitroglycerin (Nitrostat Tab) 0.4 mg PRN UT 06/03/17 17:15 07/03/17 17:14 Pantoprazole Sodium (Protonix Tab) 40 mg QAM PO 06/04/17 09:00 07/04/17 08:59 06/06/17 07:08 40 MG Rosuvastatin Calcium (Crestor Tab) 10 mg HS PO 06/03/17 21:00 07/03/17 20:59 06/05/17 21:27 10 MG Senna/Docusate Sodium (Senokot S Tab) 1 tab BID PO 06/03/17 21:00 07/03/17 20:59 06/06/17 07:08 1 TAB Sevelamer HCl (Renagel Tab) 800 mg TIDM PO 06/03/17 18:00 07/03/17 17:59 06/06/17 07:08 800 MG Polyethylene (Miralax Powder Packet) 17 gm BID PO 06/03/17 21:00 07/03/17 20:59 06/05/17 21:27 17 GM Lactobacillus Acidophilus (Floranex Tab) 4 tab TIDM PO 06/03/17 18:00 07/03/17 17:59 06/06/17 07:08 4 TAB Morphine Sulfate (MoRPHine SULFATE INJ) 2 mg Q2H PRN IV 06/03/17 17:30 06/17/17 17:29 06/06/17 05:47 2 MG Glucose (Glucose 40% Gel) UD PRN PO 06/03/17 19:15 07/03/17 19:14 Glucose (Glucose Chew Tab) 1 tabs UD PRN PO 06/03/17 19:15 07/03/17 19:14 Dextrose (Dextrose 50% 50ML Syringe) 50 ml UD PRN IV 06/03/17 19:15 07/03/17 19:14 Glucagon (Glucagon Inj) 1 mg UD PRN SQ 06/03/17 19:15 07/03/17 19:14 Oxycodone HCl (Roxicodone Immediate Rel Tab) `1-2 tabs for pain 1 tab ... Q6H PRN PO 06/04/17 09:30 06/18/17 09:29 06/05/17 22:20 10 MG Heparin Sodium (Porcine) (Heparin Iv Bolus) 2,000 unit TODAY@0600 IV 06/06/17 06:00 06/06/17 23:59 Epoetin Joshua 8000 units/Syringe 0.4 ml @ 1 mls/min DAILY@0600 IV. 06/06/17 06:00 06/06/17 23:59 Ondansetron HCl (Zofran Inj) 4 mg Q6H PRN IV 06/05/17 20:45 07/05/17 20:44 Insulin Aspart (novoLOG ASPART) SLIDING SCALE If C... Q6 SC 06/06/17 06:00 07/06/17 05:59 Impression (1) Right hip pain (2) Back pain (3) ESRD (end stage renal disease) on dialysis Recommendations -- Patient is medically stable this am. No change to current HD prescription -- Will discuss timing of IJ THC w/ Vascular Surgery. May need to postpone removal until next week to ensure that AVF can be reliably used -- Recommend low potassium, diabetic, HD diet -- Monitor CBC, PRP -- Defer pain management to primary service -- LS spine and hip x-ray films reviewed: No acute fracture. Lucency near R hip prosthesis suggests "hardware loosening" -- Recommend discuss w/ [place] [facility] [place] for operative repair of R hip is warranted
[2017-06-06] MEDS: OXYCODONE HCL IR 5 MG TAB (IMMEDIATE RELEASE) PO PRN ×3 (12:30→21:04)
--- NOTE | 2017-06-06 14:00 | Hospitalist Progress Note ---
Hospitalist Progress Note Date of Service Jun 06, 2017. Subjective Pt evaluation today including: conversation w/ patient, conversation w/ family , physical exam, chart review, lab review, conversation w/ career development consultant, review of inpatient medication list Voiding: no voiding problems Ms. Rahman is having more pain today than yesterday which is generally true of days she has dialysis as she is today. She is not sure if she is ready to go home due to continued pain. Respiratory: No cough, No shortness of breath Cardiovascular: No chest pain Abdomen: No pain, No nausea, No vomiting, No diarrhea Medications Medications (Trade) Dose Ordered Sig/Janeth Route Start Time Stop Time Status Last Admin Dose Admin Epoetin Joshua 8000 units/Syringe 0.4 ml @ 1 mls/min DAILY@0600 IV. 06/06/17 06:00 06/06/17 23:59 06/06/17 12:15 1 MLS/MIN Objective Vital Signs Date Time Temp Pulse Resp B/P (MAP) Pulse Ox O2 Delivery O2 Flow Rate FiO2 06/06/17 13:15 65 127/51 06/06/17 13:00 67 118/39 06/06/17 12:45 67 107/36 06/06/17 12:30 64 104/38 06/06/17 12:15 64 114/34 06/06/17 12:00 62 91/43 06/06/17 11:45 60 100/38 06/06/17 11:36 62 100/36 06/06/17 11:30 44 88/15 06/06/17 11:15 60 82/35 06/06/17 11:00 62 103/42 06/06/17 10:45 62 106/39 06/06/17 10:30 61 91/39 06/06/17 10:15 66 96/34 06/06/17 10:00 64 91/38 06/06/17 09:45 60 92/32 06/06/17 09:30 64 118/46 06/06/17 08:52 37.0 61 116/36 (62) 06/06/17 07:45 Nasal Cannula 2.0 Humidified Oxygen 06/06/17 05:52 36.5 63 17 126/51 (76) 100 Nasal Cannula 2.0 Humidified Oxygen 06/05/17 23:30 Nasal Cannula 2.0 Humidified Air 06/05/17 23:07 36.6 62 16 111/56 (74) 95 Nasal Cannula 2.0 Humidified Oxygen 06/05/17 16:00 Nasal Cannula 2.0 Humidified Oxygen 06/05/17 15:00 36.7 63 16 132/72 (92) 95 Nasal Cannula 3.0 Humidified Oxygen Physical Exam Notes: General: no distress Eyes: normal inspection, PERLL Respiratory: chest non tender, clear to auscultation, normal breath sounds, no respiratory distress, no accessory muscle use Cardiac: regular rate and rhythm, no rub or gallop, III/IV systolic murmur over left and right second intercostal space, left ankle larger than right (per patient this is baseline), no jvd GI/: active bowel sounds, no abd pain or tenderness, soft, non distended Extremities: weakness in legs bilaterally, equal pedal strength, no numbness or tingling Neuro/Psych: alert and oriented x 3, normal mood and affect Skin: normal color, dry, patch of dry skin and redness over left ankle Laboratory Results Last 24 Hours Test 06/05/17 17:58 06/05/17 20:38 06/06/17 05:45 06/06/17 12:23 Bedside Glucose 127 mg/dl 148 mg/dl 81 mg/dl 80 mg/dl Assessment and Plan Ms. Rahman is an 87 year old woman here for increasing hip and back pain on the right side likely due to hardware loosening around hip and insufficiency fracture of the sacral ala. She has been seen by Dr. Roldan recently, who referred her to a physician in [place], who then referred her to Dr. Plaza at [facility]. The patient continues to have pain, which worsened considerably recently, and is unable to get an appointment for surgery with Dr. Plaza until September. Right total hip arthroplasty hardware loosening/insufficiency fracture of inferior right sacral jong-- Patient will be admitted to the medical surgical floor for pain management. Tylenol when necessary mild pain, Oxycodone increase from q6h to q4h 5-10mg. Orthopedic consult cancelled for now. Had an extensive conversation today with Ms. Rahman and her daughter going over options as Ms. Rahman is reconsidering surgery. Dr. Plaza had told the family that he did not have an opening for this surgery until September. However, Ms. Rahman daughter was to speak with his office this week for an appt in the next week or two. Ms. Rahman and her daughter agreed that they would like to call his office in the morning to arrange the appointment and then be evaluated outpatient for surgery rather than transfer at this time. However, if they are unable to get an appointment within a reasonable time frame we will revisit possibly transferring to [place]. For now we will focus on pain management in order to send her home and she can follow up with Dr. Plaza. PT/OT Right lower extremity cellulitis with surface abrasion - Antibiotics stopped by ID as they do not see evidence for a cellulitis. CAD/hypertension/atrial fibrillation-- Continue amiodarone 200 mg by mouth daily. End-stage renal disease on hemodialysis Sunday, Sunday and Sunday-- Continue Renagel. Consult her environmental health safety manager Dr. Quezada. Dialysis today GERD--continue pantoprazole 40 mg by mouth daily. Hyperlipidemia-- Continue Crestor 10 mg by mouth at bedtime. Hyperuricemia-- Continue allopurinol 50 mg daily Constipation-- Continue sennosides docusate, MiraLAX. COPD-- Continue duonebs every 4 hours when necessary. 2L NC at night and prn during the day Diabetes mellitus-- Placement Accu-Cheks before meals and at bedtime with NovoLog coverage per scale. DVT prophylaxis - heparin subq Resuscitation status - full resuscitation
--- NOTE | 2017-06-06 14:12 | Surgery Consultation ---
Consultation Date of Service Jun 06, 2017. Chief Complaint ESRD, functioning LUE AVF History of Present Illness The patient is a 87 year old female with multiple medical problems, including ESRD on HD, known to Dr Rocha for AV access, seen in consultation today for possible removal of permcath. Pt states she has been running well at HD outpatient, however, they did infiltrate it yesterday at inpatient HD. Admitted for severe hip and back pain which is debilitating. Denies BRENNER, fever, chills, chest pain, SOB, abd pain, N/V, rest pain, other complaints. Vitals Vital Signs Past 12 Hours Date Time Temp Pulse Resp B/P (MAP) Pulse Ox O2 Delivery O2 Flow Rate FiO2 06/06/17 13:29 36.7 64 128/45 (72) 06/06/17 13:15 65 127/51 06/06/17 13:00 67 118/39 06/06/17 12:45 67 107/36 06/06/17 12:30 64 104/38 06/06/17 12:15 64 114/34 06/06/17 12:00 62 91/43 06/06/17 11:45 60 100/38 06/06/17 11:36 62 100/36 06/06/17 11:30 44 88/15 06/06/17 11:15 60 82/35 06/06/17 11:00 62 103/42 06/06/17 10:45 62 106/39 06/06/17 10:30 61 91/39 06/06/17 10:15 66 96/34 06/06/17 10:00 64 91/38 06/06/17 09:45 60 92/32 06/06/17 09:30 64 118/46 06/06/17 08:52 37.0 61 116/36 (62) 06/06/17 07:45 Nasal Cannula 2.0 Humidified Oxygen 06/06/17 05:52 36.5 63 17 126/51 (76) 100 Nasal Cannula 2.0 Humidified Oxygen Allergies Coded Allergies: No Known Allergies (Unverified , 04/20/17) Home Medications Scheduled Allopurinol (Zyloprim), 50 MG PO QAM Amiodarone Hcl (Cordarone), 200 MG PO QAM Heparin Sod (Porcine) (Heparin Sq), 0.5 ML SC BID Multiple Vitamin (Renal Multivitamin Formul), 2 TABS PO QAM Nitroglycerin (Nitrostat), 0.4 MG UT PRN Nutritional Supplements (Colon Formula), 1 CAP PO QAM Pantoprazole (Protonix), 40 MG PO QAM Polyethylene Glycol 3350 (Miralax), 17 GM PO AMPM Rosuvastatin Calcium (Crestor), 10 MG PO HS Sennosides-Docusate Sodium (Stool Softener), 1 TAB PO BID Sevelamer Hydroch (Renagel), 800 MG PO TIDM Scheduled PRN Ipratropium-Albuterol (Duoneb), 1 TREATMENT INH Q4H PRN for SOB/Wheezing Problem List Medical Problems: (1) Ac Myocrd Infrct,Oth Inferior Wall,Subseq Epis Car (2) Acute kidney injury (3) Anemia (4) Aortocoronary Bypass (5) Beta-hemolytic group B streptococcal sepsis (6) Bronchopneumonia (7) Cellulitis (8) Cellulitis of right lower extremity without foot (9) CHF exacerbation (10) Chronic Kidney Disease, Stage Iii (Moderate) (11) Chronic kidney disease, stage IV (severe) (12) Chronic kidney disease, stage V (13) Coronary artery disease (14) Coronary Atherosclerosis Of [place] Coronary Vessel (15) Diab Qiana Wo Compl, Type Ii Or Unspec Type, Not Uncntrld (16) Diabetes (17) DVT (deep venous thrombosis) (18) Dyspnea (19) 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 (20) ESRD (end stage renal disease) on dialysis (21) Hypertension (22) Hypertension Nos (23) Hypotension (24) Hypoxia (25) Knee Joint Replacement Status (26) Leukocytosis (27) New onset atrial fibrillation (28) NSTEMI (non-ST elevated myocardial infarction) (29) NSTEMI (non-ST elevated myocardial infarction) (30) Old Myocardial Infarct (31) Percutaneous Translum Coron Angioplasty Status (32) Peripheral vascular disease (33) Pneumonia, Organism Nos (34) Positive blood culture (35) Prolonged Q-T interval on ECG (36) Pulmonary embolism (37) Pure Hypercholesterolem (38) Rectal bleeding (39) Right hip pain (40) Sepsis due to infected intravenous catheter (41) Shortness of breath (42) Urin Tract Infection Nos Surgical / Medical History Hx Cardiac Surgery: Yes (bypass-99,stent 07) Hx Abdominal Surgery: Yes (hyster,gallbladder) Hx Cancer Surgery: No Hx Thoracic Surgery: No Hx Orthopedic: Yes (hip replacement-1999,back surgery-2010,broken [id number]) Hx Urinary Tract Surgery: Yes (kidney stones-2005) HX Other Surgery: Yes (cataract, femoral artery repair 2006) Past Medical/Surgical History: Heart Disease, Hypertension, Kidney Disease, Pulmonary Emboli Family History Asthma Cancer SISTER (Breast cancer) Chronic kidney disease MOTHER Diabetes mellitus FATHER Heart disease FATHER Hypertension FATHER MOTHER Kidney disease Kidney stones Stroke Social History Smoking Status: Never Smoker Hx Tobacco Use In Past Year?: No Hx Alcohol Use - Type & Amnt: No Hx Substance Use -Type & Amnt: No Review of Systems Constitutional: + malaise, No chills, No fever Skin: No change in color Eyes: No visual changes ENMT: No sore throat Respiratory: No cough, No hemoptysis, No short of breath Cardiovascular: No chest pain, No chest pressure, No syncope, No edema, No intermittent claudication Gastrointestinal: No abdominal pain, No nausea, No vomiting Genitourinary - Female: No dysuria, No hematuria Musculoskeletal: + back pain, + joint pain Neurologic: No dizziness, No headache, No numbness, No tingling Physical Exam Constitutional: General Apperance: heathly-appearing (for age), well-nourished, well- developed Level of Distress: NAD (but does appear uncomfortable), chronically ill Psychiatric: Mental Status: active & alert, normal mood, normal affect Orientation: oriented except where noted, to time, to place, to person Memory: recent memory normal, remote memory normal Head: normocephalic, atraumatic Eyes: EOM: EOMI ENMT: normal ENT inspection, hearing grossly normal Neck: supple, trachea midline Lungs: Respiratory effort: no dyspnea Auscultation: no wheezing, no rhonchi, decreased breath sounds Cardiovascular: Apical Impulse: not displaced Heart Auscultation: RRR, no murmurs, no rubs Peripheral Pulses: Pulses: full and equal, in all extremities except if noted Bruits: none appreciated Brachial Pulses: normal on the left, normal on the right, pertinent finding (LUE AVF + thrill/bruit) Radial Pulse: normal on the left, normal on the right Femoral Pulse: normal on the left, normal on the right Posterior Tibialis Pulse: decreased on the left, decreased on the right Dorsalis Pedis Pulse: decreased on the left, decreased on the right Abdomen: Bowel Sounds: normal Inspection & Palpation: soft, non-distended, no tenderness, guarding & rebound Musculoskeletal: normal strength (5/5 throughout), normal tone Extremities: Upper Right: no cyanosis, no edema, no varicosities Upper Left: no cyanosis, no edema, no varicosities Lower Right: no cyanosis, no edema, no varicosities Lower Left: no cyanosis, no edema, no varicosities Neurologic: Cranial Nerves: grossly intact Sensation: grossly intact Assessment and Plan ASSESSMENT and PLAN: ESRD on HD, functioning LUE AVF Will plan on permcath removal when recommended by nephrology. Please call if needed. Pt and daughter agreeable.
[2017-06-06] MEDS: ROSUVASTATIN CALCIUM 10 MG TAB PO SCH (21:05)
[2017-06-07] VITALS (8 sets, daily range): BP systolic 89–136; BP diastolic 36–70; PULSE 57–69; TEMP 36.6–37.1; O2SAT 93–99
[2017-06-07] MEDS: DOCUSATE SODIUM/SENNA 50/8.6MG TAB PO SCH ×2 (08:46→20:51)
[2017-06-07] MEDS: PANTOprazole SOD 40 MG TAB PO SCH (08:46)
[2017-06-07] MEDS: MULTIVITAMIN TAB PO SCH (08:46)
[2017-06-07] MEDS: ALLOPURINOL 100 MG TAB PO SCH (08:46)
[2017-06-07] MEDS: AMIODARONE 200 MG TAB PO SCH (08:46)
[2017-06-07] MEDS: LACTOBACILLUS ACIDOPHILUS (FLORANEX) TAB PO SCH ×3 (08:47→19:00)
[2017-06-07] MEDS: SEVELAMER HYDROCH 800 MG TAB PO SCH ×3 (08:47→19:00)
[2017-06-07] MEDS: POLYETHYLENE (MIRALAX) 17 GM PACK PO SCH ×2 (08:47→18:58)
[2017-06-07] MEDS: INSULIN ASPART 100 UNITS/ML 3 ML PEN SC SCH ×4 (09:30→20:50)
[2017-06-07] MEDS: HEPARIN SOD 5000 UNIT/0.5 ML CARP SC SCH ×2 (09:37→20:53)
--- NOTE | 2017-06-07 10:05 | Nephrology Progress Note ---
Nephrology Progress Note Date of Service Jun 07, 2017. Chief Complaint ESRD requiring HD Subjective Ms. Rahman was seen & examined in her hospital room this morning. Dialysis was complicated yesterday by infiltration of the venous limb of her AVF. IJ THC was then used as venous return. This morning Ms. Rahman complains of continued R hip discomfort. Review of Systems Constitutional: No fever Cardiovascular: No chest pain Respiratory: No dyspnea at rest Abdomen: No pain, No nausea, No vomiting Extremities: No leg edema A complete review of systems was performed. Pertinent positives are noted above. All other systems are negative. Vital Signs Last 8 Hrs Date Time Temp Pulse Resp B/P (MAP) Pulse Ox O2 Delivery O2 Flow Rate FiO2 06/07/17 08:20 Room Air 06/07/17 07:16 36.9 68 20 92/46 (61) 93 Room Air Last Recorded Weight Weight (Kilograms): 74.400 Physical Exam General Appearance: + mild distress (due to hip discomfort) Head: normocephalic, atraumatic Eyes: PERRL, EOMI Neck: no adenopathy Respiratory/Chest: lungs clear, no respiratory distress Cardiovascular: regular rate, rhythm Abdomen/GI: normal bowel sounds, non tender, soft Extremities/Musculoskelatal: no calf tenderness, no pedal edema Neurologic/Psych: alert, oriented x 3 Family History Asthma Cancer SISTER (Breast cancer) Chronic kidney disease MOTHER Diabetes mellitus FATHER Heart disease FATHER Hypertension FATHER MOTHER Kidney disease Kidney stones Stroke Negative for CKD / ESRD Social History Smoking Status: Never smoker Smokeless Tobacco Use: No Alcohol Use: none Drug Use: none Marital Status: Housing Status: lives with family Occupation: retired . Retired. Never a smoker. Laboratory Results Past 24 Hours Test 06/06/17 12:23 06/06/17 17:14 06/06/17 20:46 Bedside Glucose 80 mg/dl (70-90) 84 mg/dl (70-90) 106 mg/dl (70-90) Allergies Coded Allergies: No Known Allergies (Unverified , 04/20/17) Medications Current Inpatient Medications Medications (Trade) Dose Ordered Sig/Janeth Route Start Time Stop Time Status Last Admin Dose Admin Acetaminophen (Tylenol Tab) 650 mg Q4H PRN PO 06/03/17 17:15 07/03/17 17:14 Allopurinol (Zyloprim Tab) 50 mg QAM PO 10/2/17 09:00 07/04/17 08:59 06/07/17 08:46 50 MG Amiodarone HCl (Cordarone Tab) 200 mg QAM PO 06/04/17 09:00 07/04/17 08:59 06/07/17 08:46 200 MG Heparin Sodium (Porcine) (Heparin Sq 5000 Unit/0.5ml) 2,500 unit BID SC 06/03/17 21:00 07/03/17 20:59 06/07/17 09:37 2,500 UNIT Albuterol/ Ipratropium (Duoneb) 3 ml Q4H PRN INH 06/03/17 17:15 07/03/17 17:14 Multivitamins (Multivitamin Tab) 2 tab QAM PO 06/04/17 09:00 07/04/17 08:59 06/07/17 08:46 2 TAB Nitroglycerin (Nitrostat Tab) 0.4 mg PRN UT 06/03/17 17:15 07/03/17 17:14 Pantoprazole Sodium (Protonix Tab) 40 mg QAM PO 06/04/17 09:00 07/04/17 08:59 06/07/17 08:46 40 MG Rosuvastatin Calcium (Crestor Tab) 10 mg HS PO 06/03/17 21:00 07/03/17 20:59 06/06/17 21:05 10 MG Senna/Docusate Sodium (Senokot S Tab) 1 tab BID PO 06/03/17 21:00 07/03/17 20:59 06/07/17 08:46 1 TAB Sevelamer HCl (Renagel Tab) 800 mg TIDM PO 06/03/17 18:00 07/03/17 17:59 06/07/17 08:47 800 MG Polyethylene (Miralax Powder Packet) 17 gm BID PO 06/03/17 21:00 07/03/17 20:59 06/07/17 08:47 17 GM Lactobacillus Acidophilus (Floranex Tab) 4 tab TIDM PO 06/03/17 18:00 07/03/17 17:59 06/07/17 08:47 4 TAB Glucose (Glucose 40% Gel) UD PRN PO 06/03/17 19:15 07/03/17 19:14 Glucose (Glucose Chew Tab) 1 tabs UD PRN PO 06/03/17 19:15 07/03/17 19:14 Dextrose (Dextrose 50% 50ML Syringe) 50 ml UD PRN IV 06/03/17 19:15 07/03/17 19:14 Glucagon (Glucagon Inj) 1 mg UD PRN SQ 06/03/17 19:15 07/03/17 19:14 Ondansetron HCl (Zofran Inj) 4 mg Q6H PRN IV 06/05/17 20:45 07/05/17 20:44 Oxycodone HCl (Roxicodone Immediate Rel Tab) `1-2 tabs for pain 1 tab ... Q4H PRN PO 06/06/17 13:45 06/13/17 13:46 06/06/17 21:04 5 MG Insulin Aspart (novoLOG ASPART) SLIDING SCALE If C... ACHS SC 06/06/17 17:15 07/06/17 17:14 Impression (1) Right hip pain (2) Back pain (3) ESRD (end stage renal disease) on dialysis Recommendations -- Patient is medically stable this am. No acute indication for HD today. Will schedule next HD for am. -- Vascular surgery has been consulted. They will remove IJ THC when AVF can be reliably used for HD -- Recommend low potassium, diabetic, HD diet -- Monitor CBC, PRP -- Defer pain management to primary service -- LS spine and hip x-ray films reviewed: No acute fracture. Lucency near R hip prosthesis suggests "hardware loosening" -- Recommend discuss w/ patient's surgeon at [facility] [place] determine whether transfer for operative repair of R hip is warranted
[2017-06-07] MEDS: OXYCODONE HCL IR 5 MG TAB (IMMEDIATE RELEASE) PO PRN ×2 (14:09→20:51)
--- NOTE | 2017-06-07 14:19 | Hospitalist Progress Note ---
Hospitalist Progress Note Date of Service Jun 07, 2017. Subjective Pt evaluation today including: conversation w/ patient, conversation w/ family , physical exam, chart review, lab review, review of inpatient medication list Voiding: no voiding problems Ms. Ramirez pain is much better controlled today, she has not needed any pain medications since yesterday afternoon. The days she has dialysis are much more difficult than days she does not. Respiratory: No cough, No sputum, No shortness of breath Cardiovascular: No chest pain Abdomen: + problem reported (little appetite), No pain, No nausea, No vomiting, No diarrhea All Other Systems: Reviewed and Negative Medications Medications Administered Medications (Trade) Dose Ordered Sig/Janeth Route Start Time Stop Time Status Last Admin Dose Admin Morphine Sulfate (MoRPHine SULFATE INJ) 4 mg NOW STAT IV 06/03/17 14:19 06/03/17 14:20 DC 06/03/17 14:38 4 MG Allopurinol (Zyloprim Tab) 50 mg QAM PO 06/04/17 09:00 07/04/17 08:59 06/07/17 08:46 50 MG Amiodarone HCl (Cordarone Tab) 200 mg QAM PO 06/04/17 09:00 07/04/17 08:59 06/07/17 08:46 200 MG Heparin Sodium (Porcine) (Heparin Sq 5000 Unit/0.5ml) 2,500 unit BID SC 06/03/17 21:00 07/03/17 20:59 06/07/17 09:37 2,500 UNIT Multivitamins (Multivitamin Tab) 2 tab QAM PO 06/04/17 09:00 07/04/17 08:59 06/07/17 08:46 2 TAB Pantoprazole Sodium (Protonix Tab) 40 mg QAM PO 06/04/17 09:00 07/04/17 08:59 06/07/17 08:46 40 MG Rosuvastatin Calcium (Crestor Tab) 10 mg HS PO 06/03/17 21:00 07/03/17 20:59 06/06/17 21:05 10 MG Senna/Docusate Sodium (Senokot S Tab) 1 tab BID PO 06/03/17 21:00 07/03/17 20:59 06/07/17 08:46 1 TAB Sevelamer HCl (Renagel Tab) 800 mg TIDM PO 06/03/17 18:00 10/31/17 17:59 06/07/17 12:44 800 MG Polyethylene (Miralax Powder Packet) 17 gm BID PO 06/03/17 21:00 07/03/17 20:59 06/07/17 08:47 17 GM Daptomycin 450 mg/ Sodium Chloride 59 ml @ 100 mls/hr Q2D@2200 IV 06/03/17 20:00 06/04/17 10:24 DC 06/03/17 19:56 100 MLS/HR Lactobacillus Acidophilus (Floranex Tab) 4 tab TIDM PO 06/03/17 18:00 07/03/17 17:59 06/07/17 12:44 4 TAB Morphine Sulfate (MoRPHine SULFATE INJ) 2 mg Q2H PRN IV 06/03/17 17:30 06/06/17 11:30 DC 06/06/17 05:47 2 MG Piperacillin Sod/ Tazobactam Sod 3.375 gm/Dextrose 115 ml @ 230 mls/hr NOW ONCE IV 06/03/17 19:30 06/03/17 19:59 DC 06/03/17 19:55 230 MLS/HR Piperacillin Sod/ Tazobactam Sod 3.375 gm/Dextrose 115 ml @ 28.75 mls/ hr Q12H IV 06/04/17 06:00 06/04/17 10:24 DC 06/04/17 05:20 28.75 MLS/HR Sodium Chloride 500 ml @ 50 mls/hr Q10H IV 06/03/17 20:00 06/04/17 05:59 DC 06/03/17 21:13 50 MLS/HR Epoetin Joshua 8000 units/Syringe 0.4 ml @ 1 mls/min TODAY@1000 IV. 06/04/17 10:00 06/04/17 13:59 DC 06/04/17 13:45 1 MLS/MIN Oxycodone HCl (Roxicodone Immediate Rel Tab) `1-2 tabs for pain 1 tab ... Q6H PRN PO 06/04/17 09:30 06/06/17 13:47 DC 06/06/17 12:30 10 MG Epoetin Joshua 8000 units/Syringe 0.4 ml @ 1 mls/min DAILY@0600 IV. 06/06/17 06:00 06/06/17 23:59 DC 06/06/17 12:15 1 MLS/MIN Oxycodone HCl (Roxicodone Immediate Rel Tab) `1-2 tabs for pain 1 tab ... Q4H PRN PO 06/06/17 13:45 06/13/17 13:46 06/07/17 14:09 5 MG Objective Vital Signs Date Time Temp Pulse Resp B/P (MAP) Pulse Ox O2 Delivery O2 Flow Rate FiO2 06/07/17 11:41 36.7 60 16 106/63 (77) 99 Nasal Cannula 2.0 06/07/17 10:57 36.7 60 16 106/63 (77) 06/07/17 08:20 Room Air 06/07/17 07:16 36.9 68 20 92/46 (61) 93 Room Air 06/07/17 00:44 114/52 (72) 06/07/17 00:05 37.1 69 16 89/48 (62) 93 2.0 06/06/17 23:15 Nasal Cannula 2.0 Humidified Air 06/06/17 20:00 Room Air 06/06/17 15:45 36.3 66 18 95/59 (71) 100 Room Air Physical Exam Notes: General: no distress Eyes: normal inspection, PERLL Respiratory: chest non tender, clear to auscultation, normal breath sounds, no respiratory distress, no accessory muscle use Cardiac: regular rate and rhythm, no rub or gallop, III/IV systolic murmur over left and right second intercostal space, left ankle larger than right (per patient this is baseline), no jvd GI/: active bowel sounds, no abd pain or tenderness, soft, non distended Extremities: weakness in legs bilaterally, equal pedal strength, no numbness or tingling Neuro/Psych: alert and oriented x 3, normal mood and affect Skin: normal color, dry, patch of dry skin and redness over right ankle Laboratory Results Last 24 Hours Test 06/06/17 17:14 06/06/17 20:46 Bedside Glucose 84 mg/dl 106 mg/dl Assessment and Plan Ms. Rahman is an 87 year old woman here for increasing hip and back pain on the right side likely due to hardware loosening around hip and insufficiency fracture of the sacral ala. She has been seen by Dr. Roldan recently, who referred her to a physician in [place], who then referred her to Dr. Plaza at [facility]. The patient continues to have pain, which worsened considerably recently, and is unable to get an appointment for surgery with Dr. Plaza until September. Right total hip arthroplasty hardware loosening/insufficiency fracture of inferior right sacral jong-- Patient will be admitted to the medical surgical floor for pain management. Tylenol when necessary mild pain, Oxycodone increase from q6h to q4h 5-10mg. Orthopedic consult cancelled for now. Had an extensive conversation today with Ms. Rahman and her daughter going over options as Ms. Rahman is reconsidering surgery. Dr. Plaza's office was able to make an appointment for June 14 which is acceptable to the family and patient. For now we will focus on pain management in order to send her home and she can follow up with Dr. Plaza. Lidoderm patch added. PT/OT Right lower extremity cellulitis with surface abrasion - Antibiotics stopped by ID as they do not see evidence for a cellulitis. CAD/hypertension/atrial fibrillation-- Continue amiodarone 200 mg by mouth daily. End-stage renal disease on hemodialysis Sunday, Sunday and Sunday-- Continue Renagel. Consult her travel ot Dr. Quezada. Dialysis today GERD--continue pantoprazole 40 mg by mouth daily. Hyperlipidemia-- Continue Crestor 10 mg by mouth at bedtime. Hyperuricemia-- Continue allopurinol 50 mg daily Constipation-- Continue sennosides docusate, MiraLAX. COPD-- Continue duonebs every 4 hours when necessary. 2L NC at night and prn during the day Diabetes mellitus-- Placement Accu-Cheks before meals and at bedtime with NovoLog coverage per scale. Disposition - if pain is well controlled after dialysis tomorrow we may be able to send her home. DVT prophylaxis - heparin subq Resuscitation status - full resuscitation
[2017-06-07] MEDS: LIDODERM (LIDOCAINE) PATCH 5% TD SCH (17:47)
[2017-06-07] MEDS: ROSUVASTATIN CALCIUM 10 MG TAB PO SCH (20:51)
[2017-06-08] VITALS (24 sets, daily range): BP systolic 98–136; BP diastolic 39–63; PULSE 53–69; TEMP 36.2–36.8; O2SAT 90–98
[2017-06-08] MEDS: OXYCODONE HCL IR 5 MG TAB (IMMEDIATE RELEASE) PO PRN ×2 (00:38→15:11)
[2017-06-08] MEDS ORDERED: HEPARIN SOD (PORCINE) 1000 UNIT/ML 10 ML VIAL IV SCH (06:00)
[2017-06-08] MEDS ORDERED: EPOETIN ALFA INJ 8,000 UNITS in SYRINGE 0 ML IV. SCH (06:00)
[2017-06-08] MEDS ORDERED: EPOETIN ALFA 10,000 UNITS/ML VIAL IV. ONE (06:00)
[2017-06-08 07:06] LABS: HEMATOCRIT 33.3 % (37-47); MEAN CELL VOLUME 99.7 fL (80-100); MEAN CORPUSCULAR HEMOGLOBIN 31.7 pg (25-34); MEAN CORPUSCULAR HGB CONC 31.8 g/dl (32-36); MEAN PLATELET VOLUME 10.2 fL (7.4-10.4); PLATELET COUNT 136 K/uL (130-400); RED BLOOD COUNT 3.34 M/uL (4.2-5.4); WHITE BLOOD COUNT 5.09 K/uL (4.8-10.8)
[2017-06-08 07:43] LABS: BUN/CREATININE RATIO 4.4 (10-20); CALCIUM 8.8 mg/dl (8.5-10.1); CREATININE 4.5 mg/dl (0.60-1.20); POTASSIUM 4.1 mmol/L (3.5-5.1)
[2017-06-08] MEDS: INSULIN ASPART 100 UNITS/ML 3 ML PEN SC SCH ×4 (08:00→21:00)
[2017-06-08] MEDS: LACTOBACILLUS ACIDOPHILUS (FLORANEX) TAB PO SCH ×3 (08:13→18:34)
[2017-06-08] MEDS: PANTOprazole SOD 40 MG TAB PO SCH (08:13)
[2017-06-08] MEDS: AMIODARONE 200 MG TAB PO SCH (08:13)
[2017-06-08] MEDS: SEVELAMER HYDROCH 800 MG TAB PO SCH ×3 (08:14→18:34)
[2017-06-08] MEDS: POLYETHYLENE (MIRALAX) 17 GM PACK PO SCH ×2 (08:14→21:00)
[2017-06-08] MEDS: ALLOPURINOL 100 MG TAB PO SCH (08:15)
[2017-06-08] MEDS: MULTIVITAMIN TAB PO SCH (08:15)
[2017-06-08] MEDS: DOCUSATE SODIUM/SENNA 50/8.6MG TAB PO SCH ×2 (08:15→22:18)
[2017-06-08] MEDS: LIDODERM (LIDOCAINE) PATCH 5% TD SCH (08:16)
[2017-06-08] MEDS: HEPARIN SOD 5000 UNIT/0.5 ML CARP SC SCH ×2 (08:29→22:19)
--- NOTE | 2017-06-08 09:31 | Nephrology Progress Note ---
Nephrology Progress Note Date of Service Jun 08, 2017. Chief Complaint ESRD requiring HD Subjective Ms. Rahman was seen & examined in her hospital room this morning in preparation for HD today. She complains of persistent R hip discomfort but notes that she was able to ambulate to the bathroom yesterday with assistance. She is scheduled to see Dr. Plaza (orthopedic surgery [place], [place]) 06/14/17. Review of Systems Constitutional: No fever Cardiovascular: No chest pain Respiratory: No dyspnea at rest Abdomen: No pain, No nausea, No vomiting A complete review of systems was performed. Pertinent positives are noted above. All other systems are negative. Vital Signs Last 8 Hrs Date Time Temp Pulse Resp B/P (MAP) Pulse Ox O2 Delivery O2 Flow Rate FiO2 06/08/17 06:52 36.8 58 16 136/63 (87) 98 Nasal Cannula 2.0 Humidified Oxygen 06/08/17 03:40 123/55 (77) Last Recorded Weight Weight (Kilograms): 74.400 Physical Exam General Appearance: + mild distress (due to R hip discomfort) Head: normocephalic, atraumatic Eyes: PERRL Neck: no adenopathy, + pertinent finding (L IJ THC with clean dry dressing in place) Respiratory/Chest: lungs clear, no respiratory distress Cardiovascular: regular rate, rhythm Abdomen/GI: normal bowel sounds, non tender, soft Extremities/Musculoskelatal: no calf tenderness, no pedal edema, + pertinent finding (L upper arm AVF + bruit) Neurologic/Psych: alert, oriented x 3 Family History Asthma Cancer SISTER (Breast cancer) Chronic kidney disease MOTHER Diabetes mellitus FATHER Heart disease FATHER Hypertension FATHER MOTHER Kidney disease Kidney stones Stroke Negative for CKD / ESRD Social History Smoking Status: Never smoker Smokeless Tobacco Use: No Alcohol Use: none Drug Use: none Marital Status: Housing Status: lives with family Occupation: retired . Retired. Never a smoker. Laboratory Results Past 24 Hours 06/08/17 06:43 06/08/17 06:43 Test 06/07/17 12:06 06/07/17 16:50 06/07/17 20:47 06/08/17 06:43 Bedside Glucose 92 mg/dl (70-90) 119 mg/dl (70-90) 118 mg/dl (70-90) Red Blood Count 3.34 M/uL (4.2-5.4) Mean Corpuscular Volume 99.7 fL (80-100) Mean Corpuscular Hemoglobin 31.7 pg (25-34) Mean Corpuscular Hemoglobin Concent 31.8 g/dl (32-36) RDW Standard Deviation 56.5 fL (36.4-46.3) RDW Coefficient of Variation 15.8 % (11.5-14.5) Mean Platelet Volume 10.2 fL (7.4-10.4) Anion Gap 9.0 mmol/L (3-11) Est Creatinine Clear Calc Drug Dose 8.9 ml/min Estimated GFR () 9.6 Estimated GFR (Non- 8.3 BUN/Creatinine Ratio 4.4 (10-20) Calcium Level 8.8 mg/dl (8.5-10.1) Allergies Coded Allergies: No Known Allergies (Unverified , 04/20/17) Medications Current Inpatient Medications Medications (Trade) Dose Ordered Sig/Janeth Route Start Time Stop Time Status Last Admin Dose Admin Acetaminophen (Tylenol Tab) 650 mg Q4H PRN PO 06/03/17 17:15 07/03/17 17:14 Allopurinol (Zyloprim Tab) 50 mg QAM PO 06/04/17 09:00 07/04/17 08:59 06/07/17 08:46 50 MG Amiodarone HCl (Cordarone Tab) 200 mg QAM PO 06/04/17 09:00 07/04/17 08:59 06/07/17 08:46 200 MG Heparin Sodium (Porcine) (Heparin Sq 5000 Unit/0.5ml) 2,500 unit BID SC 06/03/17 21:00 07/03/17 20:59 06/07/17 20:53 2,500 UNIT Albuterol/ Ipratropium (Duoneb) 3 ml Q4H PRN INH 06/03/17 17:15 07/03/17 17:14 Multivitamins (Multivitamin Tab) 2 tab QAM PO 06/04/17 09:00 07/04/17 08:59 06/07/17 08:46 2 TAB Nitroglycerin (Nitrostat Tab) 0.4 mg PRN UT 06/03/17 17:15 07/03/17 17:14 Pantoprazole Sodium (Protonix Tab) 40 mg QAM PO 06/04/17 09:00 07/04/17 08:59 06/07/17 08:46 40 MG Rosuvastatin Calcium (Crestor Tab) 10 mg HS PO 06/03/17 21:00 07/03/17 20:59 06/07/17 20:51 10 MG Senna/Docusate Sodium (Senokot S Tab) 1 tab BID PO 06/03/17 21:00 07/03/17 20:59 06/07/17 20:51 1 TAB Sevelamer HCl (Renagel Tab) 800 mg TIDM PO 06/03/17 18:00 07/03/17 17:59 06/07/17 19:00 800 MG Polyethylene (Miralax Powder Packet) 17 gm BID PO 06/03/17 21:00 07/03/17 20:59 06/07/17 08:47 17 GM Lactobacillus Acidophilus (Floranex Tab) 4 tab TIDM PO 06/03/17 18:00 07/03/17 17:59 06/07/17 19:00 4 TAB Glucose (Glucose 40% Gel) UD PRN PO 06/03/17 19:15 07/03/17 19:14 Glucose (Glucose Chew Tab) 1 tabs UD PRN PO 06/03/17 19:15 07/03/17 19:14 Dextrose (Dextrose 50% 50ML Syringe) 50 ml UD PRN IV 06/03/17 19:15 07/03/17 19:14 Glucagon (Glucagon Inj) 1 mg UD PRN SQ 06/03/17 19:15 07/03/17 19:14 Ondansetron HCl (Zofran Inj) 4 mg Q6H PRN IV 06/05/17 20:45 07/05/17 20:44 06/07/17 17:48 4 MG Oxycodone HCl (Roxicodone Immediate Rel Tab) `1-2 tabs for pain 1 tab ... Q4H PRN PO 06/06/17 13:45 06/13/17 13:46 06/08/17 00:38 10 MG Insulin Aspart (novoLOG ASPART) SLIDING SCALE If C... ACHS SC 06/06/17 17:15 07/06/17 17:14 Heparin Sodium (Porcine) (Heparin Iv Bolus) 2,000 unit TODAY@00 IV 06/08/17 06:00 06/08/17 23:59 Heparin Sodium (Porcine) (Heparin Iv Bolus) 500 unit TODAY@0600,0700 IV 06/08/17 06:00 06/08/17 23:59 Epoetin Joshua 8000 units/Syringe 0.4 ml @ 1 mls/min TODAY@0600 IV. 06/08/17 06:00 06/08/17 23:59 Lidocaine (Lidoderm Patch 5%) 1 patch QAM TD 06/07/17 14:45 07/07/17 14:44 06/07/17 17:47 1 PATCH Miscellaneous (Remove Lidoderm Patch) 1 ea DAILY@21 N/A 06/07/17 21:00 07/07/17 20:59 06/07/17 21:00 1 EA Impression (1) Right hip pain (2) Back pain (3) ESRD (end stage renal disease) on dialysis Recommendations -- Patient is medically stable this am. She has been scheduled for HD later this morning. Orders have been entered into the EMR and HD RN has been notified -- AVF infiltrated last treatment. Will attempt to access AVF this am utilizing 16 g needles and limiting Qb to 300 cc/min -- Vascular surgery has been consulted. They will remove IJ THC when AVF can be reliably used for HD -- Recommend low potassium, diabetic, HD diet -- Monitor CBC, PRP -- Defer pain management to primary service -- LS spine and hip x-ray films reviewed: No acute fracture. Lucency near R hip prosthesis suggests "hardware loosening" -- Ms. Rahman is scheduled for Orthopedic evaluation by Dr. Plaza in [place], [place] 06/14/17
[2017-06-08] MEDS: HEPARIN SOD (PORCINE) 1000 UNIT/ML 10 ML VIAL IV SCH ×3 (11:00→13:39)
[2017-06-08] MEDS: ROSUVASTATIN CALCIUM 10 MG TAB PO SCH (22:18)
--- NOTE | 2017-06-09 06:28 | Progress Note ---
Subjective Date of Service: Jun 08, 2017. Subjective Pt evaluation today including: conversation w/ patient, conversation w/ family , physical exam, lab review, review of inpatient medication list Pain: severe in the afternoon PO Intake: adequate Voiding: no voiding problems patient sitting in chair with a lot of pain Problem List Medical Problems: (1) Ambulatory dysfunction Status: Acute (2) Back pain Status: Acute (3) CHF (congestive heart failure) Status: Acute (4) Chronic kidney insufficiency Status: Acute (5) Chronic renal failure Status: Acute (6) Congestive heart failure Status: Acute (7) E16.2 Status: Acute (8) Elevated INR Status: Acute (9) Elevated troponin Status: Acute (10) GI bleed Status: Acute (11) Hypotension Status: Acute (12) Left leg DVT Status: Acute (13) Pancytopenia Status: Acute (14) Pneumonia Status: Acute (15) Pulmonary edema Status: Acute (16) Respiratory distress Status: Acute (17) Sepsis Status: Acute (18) ST segment changes on electrocardiogram Status: Acute (19) Substernal precordial chest pain Status: Acute (20) Substernal precordial chest pain Status: Acute (21) Symptomatic anemia Status: Acute (22) Weakness Status: Acute Review of Systems Constitutional: + weakness, + fatigue (after HD) Musculoskeletal: + joint pain (low back, right hip) All Other Systems: Reviewed and Negative Medications Current Inpatient Medications Medications (Trade) Dose Ordered Sig/Janeth Route Start Time Stop Time Status Last Admin Dose Admin Acetaminophen (Tylenol Tab) 650 mg Q4H PRN PO 06/03/17 17:15 07/03/17 17:14 06/08/17 17:35 650 MG Allopurinol (Zyloprim Tab) 50 mg QAM PO 06/04/17 09:00 07/04/17 08:59 06/08/17 08:15 50 MG Amiodarone HCl (Cordarone Tab) 200 mg QAM PO 06/04/17 09:00 07/04/17 08:59 06/08/17 08:13 200 MG Heparin Sodium (Porcine) (Heparin Sq 5000 Unit/0.5ml) 2,500 unit BID SC 06/03/17 21:00 07/03/17 20:59 06/08/17 22:19 2,500 UNIT Albuterol/ Ipratropium (Duoneb) 3 ml Q4H PRN INH 06/03/17 17:15 07/03/17 17:14 Multivitamins (Multivitamin Tab) 2 tab QAM PO 06/04/17 09:00 07/04/17 08:59 06/08/17 08:15 2 TAB Nitroglycerin (Nitrostat Tab) 0.4 mg PRN UT 06/03/17 17:15 07/03/17 17:14 Pantoprazole Sodium (Protonix Tab) 40 mg QAM PO 06/04/17 09:00 07/04/17 08:59 06/08/17 08:13 40 MG Rosuvastatin Calcium (Crestor Tab) 10 mg HS PO 06/03/17 21:00 07/03/17 20:59 06/08/17 22:18 10 MG Senna/Docusate Sodium (Senokot S Tab) 1 tab BID PO 06/03/17 21:00 07/03/17 20:59 06/08/17 22:18 1 TAB Sevelamer HCl (Renagel Tab) 800 mg TIDM PO 06/03/17 18:00 07/03/17 17:59 06/08/17 18:34 800 MG Polyethylene (Miralax Powder Packet) 17 gm BID PO 06/03/17 21:00 07/03/17 20:59 06/08/17 08:14 17 GM Lactobacillus Acidophilus (Floranex Tab) 4 tab TIDM PO 06/03/17 18:00 07/03/17 17:59 06/08/17 18:34 4 TAB Glucose (Glucose 40% Gel) UD PRN PO 06/03/17 19:15 07/03/17 19:14 Glucose (Glucose Chew Tab) 1 tabs UD PRN PO 06/03/17 19:15 07/03/17 19:14 Dextrose (Dextrose 50% 50ML Syringe) 50 ml UD PRN IV 06/03/17 19:15 07/03/17 19:14 Glucagon (Glucagon Inj) 1 mg UD PRN SQ 06/03/17 19:15 07/03/17 19:14 Ondansetron HCl (Zofran Inj) 4 mg Q6H PRN IV 06/05/17 20:45 07/05/17 20:44 06/07/17 17:48 4 MG Oxycodone HCl (Roxicodone Immediate Rel Tab) `1-2 tabs for pain 1 tab ... Q4H PRN PO 06/06/17 13:45 06/13/17 13:46 06/08/17 15:11 10 MG Insulin Aspart (novoLOG ASPART) SLIDING SCALE If C... ACHS SC 06/06/17 17:15 07/06/17 17:14 Lidocaine (Lidoderm Patch 5%) 1 patch QAM TD 06/07/17 14:45 07/07/17 14:44 06/08/17 08:16 1 PATCH Miscellaneous (Remove Lidoderm Patch) 1 ea DAILY@21 N/A 06/07/17 21:00 07/07/17 20:59 06/08/17 22:18 1 EA Objective Vital Signs Date Time Temp Pulse Resp B/P (MAP) Pulse Ox O2 Delivery O2 Flow Rate FiO2 06/09/17 00:15 Nasal Cannula 2.0 Humidified Oxygen 06/08/17 23:10 36.7 53 15 115/56 (75) 96 Nasal Cannula 2.0 Humidified Oxygen 06/08/17 15:50 Room Air 06/08/17 14:48 36.2 69 16 103/53 (70) 90 Room Air 06/08/17 14:25 36.5 59 116/50 (72) 06/08/17 14:00 57 106/43 06/08/17 13:45 59 110/47 06/08/17 13:30 58 111/47 06/08/17 13:15 59 117/45 06/08/17 13:00 59 112/47 06/08/17 12:45 58 114/48 06/08/17 12:30 55 112/47 06/08/17 12:15 58 103/44 06/08/17 12:00 57 99/45 06/08/17 11:45 57 99/39 06/08/17 11:30 58 112/44 06/08/17 11:15 55 103/43 06/08/17 11:00 58 119/49 06/08/17 10:45 57 98/48 06/08/17 10:30 56 106/45 06/08/17 10:15 56 103/45 06/08/17 10:07 58 106/48 06/08/17 09:53 36.7 57 104/44 (64) 06/08/17 07:45 98 High Flow Oxygen 2.0 Nasal Cannula 06/08/17 06:52 36.8 58 16 136/63 (87) 98 Nasal Cannula 2.0 Humidified Oxygen Physical Exam General Appearance: WD/WN, no apparent distress Eyes: normal inspection, EOMI, sclerae normal Neck: supple, no adenopathy, no JVD, trachea midline Respiratory/Chest: chest non-tender, lungs clear, normal breath sounds, no respiratory distress, no accessory muscle use Cardiovascular: regular rate, rhythm, no edema, no gallop, no JVD, no murmur Abdomen: normal bowel sounds, non tender, soft, no organomegaly Extremities: no pedal edema, no calf tenderness, normal capillary refill, pelvis stable, + pertinent finding (decreased ROM of right hip, severe pain with movement in right hip and sacrum) Neurologic/Psychiatric: manager loss prevention II-XII nml as tested, alert, normal mood/affect, oriented x 3, + motor weakness (generalized) Skin: normal color, warm/dry, no rash Laboratory Results Last 24 Hours Test 06/08/17 06:43 06/08/17 06:54 06/08/17 14:49 06/08/17 16:59 White Blood Count 5.09 K/uL Red Blood Count 3.34 M/uL Hemoglobin 10.6 g/dL Hematocrit 33.3 % Mean Corpuscular Volume 99.7 fL Mean Corpuscular Hemoglobin 31.7 pg Mean Corpuscular Hemoglobin Concent 31.8 g/dl RDW Standard Deviation 56.5 fL RDW Coefficient of Variation 15.8 % Platelet Count 136 K/uL Mean Platelet Volume 10.2 fL Sodium Level 137 mmol/L Potassium Level 4.1 mmol/L Chloride Level 102 mmol/L Carbon Dioxide Level 26 mmol/L Anion Gap 9.0 mmol/L Blood Urea Nitrogen 20 mg/dl Creatinine 4.50 mg/dl Est Creatinine Clear Calc Drug Dose 8.9 ml/min Estimated GFR () 9.6 Estimated GFR (Non- 8.3 BUN/Creatinine Ratio 4.4 Random Glucose 85 mg/dl Calcium Level 8.8 mg/dl Bedside Glucose 79 mg/dl 77 mg/dl 83 mg/dl Test 06/08/17 20:51 06/09/17 04:44 Bedside Glucose 108 mg/dl Assessment and Plan Ms. Rahman is an 87 year old woman here for increasing hip and back pain on the right side likely due to hardware loosening around hip and insufficiency fracture of the sacral ala. She has been seen by Dr. Roldan recently, who referred her to a physician in [place], who then referred her to Dr. Plaza at [facility]. The patient continues to have pain, which worsened considerably recently, and is unable to get an appointment for surgery with Dr. Plaza until September. Right total hip arthroplasty hardware loosening/insufficiency fracture of inferior right sacral jong-- pain control wit Lidoderm patch, Oxycodone q4, Tylenol Dr. Plaza at [facility] [place] [facility] will see the patient in the office on 06/14 to discuss surgical options try to d/c home on 06/09 Right lower extremity cellulitis with surface abrasion - Antibiotics stopped by ID as they do not see evidence for a cellulitis. afebrile, WBC normal while hospitalized CAD/hypertension/atrial fibrillation-- Continue amiodarone 200 mg by mouth daily. End-stage renal disease on hemodialysis Sunday, Sunday and Sunday-- Continue Renagel. HD on 06/08, continue MWF schedule GERD--continue pantoprazole 40 mg by mouth daily. Hyperlipidemia-- Continue Crestor 10 mg by mouth at bedtime. Hyperuricemia-- Continue allopurinol 50 mg daily Constipation-- Continue sennosides docusate, MiraLAX. COPD-- Continue duonebs every 4 hours when necessary. 2L NC at night and prn during the day Diabetes mellitus-- Placement Accu-Cheks before meals and at bedtime with NovoLog coverage per scale. Disposition - plan to try to d/c home on 06/09
[2017-06-09 07:21] VITALS: BP 117/64; PULSE 56; TEMP 36.4; O2SAT 100
[2017-06-09] MEDS: INSULIN ASPART 100 UNITS/ML 3 ML PEN SC SCH (08:00)
[2017-06-09 08:39] LABS: HEMATOCRIT 38.1 % (37-47); MEAN CELL VOLUME 101.3 fL (80-100); MEAN CORPUSCULAR HEMOGLOBIN 31.4 pg (25-34); MEAN PLATELET VOLUME 10.6 fL (7.4-10.4); PLATELET COUNT 163 K/uL (130-400); RED BLOOD COUNT 3.76 M/uL (4.2-5.4)
[2017-06-09] MEDS: POLYETHYLENE (MIRALAX) 17 GM PACK PO SCH (09:03)
[2017-06-09] MEDS: LACTOBACILLUS ACIDOPHILUS (FLORANEX) TAB PO SCH (09:04)
[2017-06-09] MEDS: AMIODARONE 200 MG TAB PO SCH (09:05)
[2017-06-09] MEDS: DOCUSATE SODIUM/SENNA 50/8.6MG TAB PO SCH (09:05)
[2017-06-09] MEDS: SEVELAMER HYDROCH 800 MG TAB PO SCH (09:05)
[2017-06-09] MEDS: ALLOPURINOL 100 MG TAB PO SCH (09:05)
[2017-06-09] MEDS: MULTIVITAMIN TAB PO SCH (09:05)
[2017-06-09] MEDS: LIDODERM (LIDOCAINE) PATCH 5% TD SCH (09:06)
[2017-06-09] MEDS: PANTOprazole SOD 40 MG TAB PO SCH (09:06)
[2017-06-09 09:09] LABS: BUN/CREATININE RATIO 3.1 (10-20); CALCIUM 8.9 mg/dl (8.5-10.1); CREATININE 3.4 mg/dl (0.60-1.20); POTASSIUM 3.6 mmol/L (3.5-5.1)
[2017-06-09] MEDS: HEPARIN SOD 5000 UNIT/0.5 ML CARP SC SCH (09:10)
--- NOTE | 2017-06-09 09:48 | Nephrology Progress Note ---
Nephrology Progress Note Date of Service Jun 09, 2017. Chief Complaint Follow-up for end-stage renal disease. José Huang was seen and examined in her room doctor at bedside. She denies any shortness of breath, chest pain appetite slightly improving. Continues to have he pain. Blood pressure well controlled Review of Systems A complete review of systems was performed. Pertinent positives are noted above. All other systems are negative. Vital Signs Last 8 Hrs Date Time Temp Pulse Resp B/P (MAP) Pulse Ox O2 Delivery O2 Flow Rate FiO2 06/09/17 07:21 36.4 56 18 117/64 (81) 100 Nasal Cannula 2.0 Last Recorded Weight Weight (Kilograms): 74.400 Physical Exam GENERAL: Elderly female, AAA x 3, pleasant, ill-appearing, not in any distress. NECK: Supple, no JVD. Left IJ tunnel dialysis catheter, site without erythema, nontender RESPIRATORY: Normal breathing efforts, no accessory muscle use, clear to auscultation bilaterally, no wheezes or rales. CARDIOVASCULAR: S1, S2 normal, rate rhythm regular. EXTREMITY: No lower extremity edema. Thrill and bruit in left brachiocephalic AV fistula NEURO: speech fluent. PSYCHIATRY: Normal mood and judgment Family History Asthma Cancer SISTER (Breast cancer) Chronic kidney disease MOTHER Diabetes mellitus FATHER Heart disease FATHER Hypertension FATHER MOTHER Kidney disease Kidney stones Stroke Negative for CKD / ESRD Social History Smoking Status: Never smoker Smokeless Tobacco Use: No Alcohol Use: none Drug Use: none Marital Status: Housing Status: lives with family Occupation: retired . Retired. Never a smoker. Laboratory Results Past 24 Hours Test 06/08/17 14:49 06/08/17 16:59 06/08/17 20:51 06/09/17 08:12 Bedside Glucose 77 mg/dl (70-90) 83 mg/dl (70-90) 108 mg/dl (70-90) Allergies Coded Allergies: No Known Allergies (Unverified , 04/20/17) Medications Current Inpatient Medications Medications (Trade) Dose Ordered Sig/Janeth Route Start Time Stop Time Status Last Admin Dose Admin Acetaminophen (Tylenol Tab) 650 mg Q4H PRN PO 06/03/17 17:15 07/03/17 17:14 06/08/17 17:35 650 MG Allopurinol (Zyloprim Tab) 50 mg QAM PO 06/04/17 09:00 11/1/17 08:59 06/08/17 08:15 50 MG Amiodarone HCl (Cordarone Tab) 200 mg QAM PO 06/04/17 09:00 07/04/17 08:59 06/08/17 08:13 200 MG Heparin Sodium (Porcine) (Heparin Sq 5000 Unit/0.5ml) 2,500 unit BID SC 06/03/17 21:00 07/03/17 20:59 06/08/17 22:19 2,500 UNIT Albuterol/ Ipratropium (Duoneb) 3 ml Q4H PRN INH 06/03/17 17:15 07/03/17 17:14 Multivitamins (Multivitamin Tab) 2 tab QAM PO 06/04/17 09:00 07/04/17 08:59 06/08/17 08:15 2 TAB Nitroglycerin (Nitrostat Tab) 0.4 mg PRN UT 06/03/17 17:15 07/03/17 17:14 Pantoprazole Sodium (Protonix Tab) 40 mg QAM PO 06/04/17 09:00 07/04/17 08:59 06/08/17 08:13 40 MG Rosuvastatin Calcium (Crestor Tab) 10 mg HS PO 06/03/17 21:00 07/03/17 20:59 06/08/17 22:18 10 MG Senna/Docusate Sodium (Senokot S Tab) 1 tab BID PO 06/03/17 21:00 07/03/17 20:59 06/08/17 22:18 1 TAB Sevelamer HCl (Renagel Tab) 800 mg TIDM PO 06/03/17 18:00 07/03/17 17:59 06/08/17 18:34 800 MG Polyethylene (Miralax Powder Packet) 17 gm BID PO 06/03/17 21:00 07/03/17 20:59 06/08/17 08:14 17 GM Lactobacillus Acidophilus (Floranex Tab) 4 tab TIDM PO 06/03/17 18:00 07/03/17 17:59 06/08/17 18:34 4 TAB Glucose (Glucose 40% Gel) UD PRN PO 06/03/17 19:15 07/03/17 19:14 Glucose (Glucose Chew Tab) 1 tabs UD PRN PO 06/03/17 19:15 07/03/17 19:14 Dextrose (Dextrose 50% 50ML Syringe) 50 ml UD PRN IV 06/03/17 19:15 07/03/17 19:14 Glucagon (Glucagon Inj) 1 mg UD PRN SQ 06/03/17 19:15 07/03/17 19:14 Ondansetron HCl (Zofran Inj) 4 mg Q6H PRN IV 06/05/17 20:45 07/05/17 20:44 06/07/17 17:48 4 MG Oxycodone HCl (Roxicodone Immediate Rel Tab) `1-2 tabs for pain 1 tab ... Q4H PRN PO 06/06/17 13:45 06/13/17 13:46 06/08/17 15:11 10 MG Insulin Aspart (novoLOG ASPART) SLIDING SCALE If C... ACHS SC 06/06/17 17:15 07/06/17 17:14 Lidocaine (Lidoderm Patch 5%) 1 patch QAM TD 06/07/17 14:45 07/07/17 14:44 06/08/17 08:16 1 PATCH Miscellaneous (Remove Lidoderm Patch) 1 ea DAILY@21 N/A 06/07/17 21:00 07/07/17 20:59 06/08/17 22:18 1 EA Impression (1) Right hip pain (2) Back pain (3) ESRD (end stage renal disease) on dialysis Recommendations -- had hemodialysis yesterday, 1.7 L ultra filtration, this morning volume status, blood pressure electrolyte acceptable. Okay to be discharged, if she gets discharged today, next dialysis will be at the outpatient unit on Sunday. -- Recommend low potassium, diabetic, HD diet --will schedule for removal of tunneled dialysis catheter as an outpatient once AV fistula of can be used with good blood flow -- Ms. Rahman is scheduled for Orthopedic evaluation by Dr. Plaza in [place] 06/14/17
[2017-06-09] MEDS ORDERED: RXC5 PO (10:51)
--- NOTE | 2017-06-09 10:56 | Discharge Instructions ---
Discharge Instructions Date of Service Jun 09, 2017. Admission Reason for Admission: Intractable pain associated with right hip replacement, sacral fracture Discharge Discharge Diagnosis / Problem: Intractable pain associated with right hip replacement, sacral fracture Discharge Goals Goal(s): Decrease discomfort, Improve function, Increase independence Activity Recommendations Activity Limitations: resume your previous activity Lifting Limitations: until after follow-up appointment Exercise/Sports Limitations: gradually increase as tolerated Shower/Bathe: no limitations . Instructions / Follow-Up Instructions / Follow-Up Medications: - OXYCODONE: can use 1-2 tabs every 4 hours for pain - LIDODERM: use the 2% patches that are over the counter, follow instructions on pack, can use more than one 5% patch non-formulary and requires prior authorization Right hip replacement with loosening of hardware, sacral jong fracture pain control with Percocet, Lidoderm patch follow up with Dr. Plaza on 06/14 at 330pm you have been cleared by Dr. Quezada and Dr. Hernandez for surgery if Dr. Plaza recommends surgical intervention Follow up for scheduled hemodialysis on Sunday Follow up with Dr. Hart in 1-2 weeks Current Hospital Diet Patient's current hospital diet: Renal Diet, Diabetes Type 2 Diet Discharge Diet Recommended Diet: Diabetes Type 2 Diet, Renal Diet Pending Studies Studies pending at discharge: no Medical Emergencies . Who to Call and When: Medical Emergencies: If at any time you feel your situation is an emergency, please call 911 immediately. . Non-Emergent Contact Non-Emergency issues call your: Primary Care Provider Call Non-Emergent contact if: your pain is not controlled, your pain is worsening, you have any medication questions . . "Provider Documentation" section prepared by Calvin Hudson. . VTE Core Measure Inpt VTE Proph given/why not?: Unfractionated heparin SQ [place] Drug Monitoring Program Search Results: no issues identified
[2017-06-09 11:18] VITALS: BP 117/64; PULSE 56; TEMP 36.4; O2SAT 100
--- NOTE | 2017-06-10 21:11 | Discharge Summary ---
Discharge Summary Date of Service Jun 09, 2017. Discharge Summary Admission Date: Jun 03, 2017 at 17:16 Discharge Date: Jun 09, 2017 Discharge Disposition: Home with services Principal Diagnosis: Intractable pain from loosening of right hip replacement hardware Problems/Secondary Diagnoses: Sacral jong fracture ESRD on HD CAD Immunizations: Have You Had Influenza Vaccine: Yes Influenza Vaccine Date: Apr 17, 2012 History of Tetanus Vaccine?: Yes Tetanus Immunization Date: Dec 16, 2006 History of Pneumococcal: Yes Pneumococcal Date: Dec 17, 2007 History of Hepatitis B Vaccine: No Procedures: Hemodialysis Consultations: Nephrology Vascular surgery Medication Reconciliation New Medications: Oxycodone HCl (Oxycodone HCl) 5 Mg Tab 5-10 MG PO Q4H PRN for Pain, #60 TAB 0 Refills Continued Medications: Allopurinol (Zyloprim) 100 Mg Tab 50 MG PO QAM Amiodarone Hcl (Cordarone) 200 Mg Tab 200 MG PO QAM Heparin Sod (Porcine) (Heparin Sq) 5,000 Unit/0.5 Ml Inj 0.5 ML SC BID Ipratropium-Albuterol (Duoneb) 3 Ml Nebu 1 TREATMENT INH Q4H PRN for SOB/Wheezing Multiple Vitamin (Renal Multivitamin Formul) 1 Tab Tab 2 TABS PO QAM Nitroglycerin (Nitrostat) 0.4 Mg Tab 0.4 MG UT PRN Nutritional Supplements (Colon Formula) 1 Cap Cap 1 CAP PO QAM Pantoprazole (Protonix) 40 Mg Tab 40 MG PO QAM Polyethylene Glycol 3350 (Miralax) 1 Pow Pow 17 GM PO AMPM Rosuvastatin Calcium (Crestor) 10 Mg Tab 10 MG PO HS, TAB Sennosides-Docusate Sodium (Stool Softener) 1 Tab Tab 1 TAB PO BID Sevelamer Hydroch (Renagel) 800 Mg Tab 800 MG PO TIDM, #90 TAB Discharge Exam Patient feeling well enough to go home, pain adequately controlled and all she was using was oral narcotics. Eating well, sleeping well. No chest pain or dyspnea. Discussed plans for discharge with patient and her daughter, all questions answered. Review of Systems: Constitutional: + fatigue, No fever, No chills, No sweats, No weight loss, No weakness, No problem reported Eyes: No worsening of vision, No eye pain, No redness, No discharge, No diplopia, No problem reported ENT: No hearing loss, No unusual epistaxis, No nasal symptoms, No sore throat, No tinnitus, No dental problems, No trouble swallowing, No problem reported Respiratory: No cough, No sputum, No wheezing, No shortness of breath, No dyspnea on exertion, No dyspnea at rest, No hemoptysis, No problem reported Cardiovascular: No chest pain, No orthopnea, No PND, No edema, No claudication, No palpitations, No problem reported Abdomen: No pain, No nausea, No vomiting, No diarrhea, No constipation, No GI bleeding, No problem reported Musculoskeletal: + joint pain (right hip, lower back), No muscle pain, No swelling, No calf pain, No problem reported Genitourinary - Female: No dysuria, No urinary frequency, No urinary urgency , No urinary incontinence, No urinary retention, No hematuria Neurologic: + weakness, No memory loss, No paralysis, No numbness/tingling, No vertigo, No balance problems, No problem reported Psychiatric: No depression symptoms, No anhedonism, No anxiety, No insomnia , No substance abuse, No problem reported Endocrine: No fatigue, No excessive thirst, No excessive urination, No problem reported Integumentary: No rash, No itch, No new/changing skin lesions, No color change, No bleeding, No problem reported Physical Exam: General Appearance: WD/WN, no apparent distress Eyes: normal inspection, EOMI, sclerae normal Neck: supple, no adenopathy, no JVD, trachea midline Respiratory/Chest: chest non-tender, lungs clear, normal breath sounds, no respiratory distress, no accessory muscle use Cardiovascular: regular rate, rhythm, no edema, no gallop, no JVD, no murmur , normal peripheral pulses Abdomen / GI: normal bowel sounds, non tender, soft, no organomegaly Extremities: normal capillary refill, no pedal edema, non-tender, pelvis stable, + pertinent finding (decreased ROM of lower back due to pain) 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 Rahman is an 87 year old woman here for increasing hip and back pain on the right side likely due to hardware loosening around hip and insufficiency fracture of the sacral ala. She has been seen by Dr. Roldan recently, who referred her to a physician in [place], who then referred her to Dr. Plaza at [facility]. The patient continues to have pain, which worsened considerably recently, and is unable to get an appointment for surgery with Dr. Plaza until September. Right total hip arthroplasty hardware loosening/insufficiency fracture of inferior right sacral jong-- pain control wit Lidoderm patch, Oxycodone q4, Tylenol Dr. Plaza at [facility] will see the patient in the office on 06/14 to discuss surgical options pain controlled adequately for discharge, will go home with home nursing visits script provided for oxycodone recent Right lower extremity cellulitis with surface abrasion - Antibiotics stopped by ID as they do not see evidence for a cellulitis. afebrile, WBC normal while hospitalized CAD/hypertension/atrial fibrillation-- Continue amiodarone 200 mg by mouth daily. Resume Coumadin for anticoagulation End-stage renal disease on hemodialysis Sunday, Sunday and Sunday-- Continue Renagel. HD on 06/08, continue MWF schedule with HD on 06/11 GERD--continue pantoprazole 40 mg by mouth daily. Hyperlipidemia-- Continue Crestor 10 mg by mouth at bedtime. Hyperuricemia-- Continue allopurinol 50 mg daily Constipation-- Continue sennosides docusate, MiraLAX. COPD-- Continue duonebs every 4 hours when necessary. 2L NC at night and prn during the day Diabetes mellitus-- Placement Accu-Cheks before meals and at bedtime with NovoLog coverage per scale. Disposition - d/c to home with follow up with Dr. Plaza at [facility] Total Time Spent: Greater than 30 minutes This includes examination of the patient, discharge planning, medication reconciliation, and communication with other providers. Discharge Instructions Please refer to the electronic Patient Visit Report (Discharge Instructions) for additional information. Follow-Up Dr. Plaza on 06/14 Dr. Quezada as previously scheduled Dr. Hernandez as previously scheduled Additional Copies To Jose Armando Plaza M.D.; Reuben Quezada M.D.; Vipul Hernandez M.D.
== END 2017-06-09 14:12 | disposition home health service (06) | DRG 559 ==
LOC: EDBD 13:29 → C.EDC 13:31 → C.MSN 17:16 → ENRESERV 17:56
PROVIDERS: ADMIT Hospitalist; ATTEND Internal Medicine
DX: T84.030A Mechanical loosening of internal right hip prosthetic joint, initial encounter (principal); N18.6 End stage renal disease; L03.115 Cellulitis of right lower limb; M84.48XA Pathological fracture, other site, initial encounter for fracture; I12.0 Hypertensive chronic kidney disease with stage 5 chronic kidney disease or end stage renal disease; I25.10 Atherosclerotic heart disease of native coronary artery without angina pectoris; I48.91 Unspecified atrial fibrillation; E11.22 Type 2 diabetes mellitus with diabetic chronic kidney disease; K21.9 Gastro-esophageal reflux disease without esophagitis; E78.5 Hyperlipidemia, unspecified; K59.00 Constipation, unspecified; J44.9 Chronic obstructive pulmonary disease, unspecified; E79.0 Hyperuricemia without signs of inflammatory arthritis and tophaceous disease; Z79.899 Other long term (current) drug therapy; Y79.2 Prosthetic and other implants, materials and accessory orthopedic devices associated with adverse incidents; Y83.1 Surgical operation with implant of artificial internal device as the cause of abnormal reaction of the patient, or of later complication, without mention of misadventure at the time of the procedure; Z99.2 Dependence on renal dialysis; Z95.1 Presence of aortocoronary bypass graft; Z83.3 Family history of diabetes mellitus

== ENCOUNTER 2017-07-15 17:02 | Inpatient (IN) | payer OTHER ==
[~2017-07-15] VITALS: Ht 162.6 cm; Wt 68.6 kg
[~2017-07-15 17:02] MED LIST changes: -CLOP1TAB15 PO; +HYDR-4313 PO; +OXYC1TAB3 PO; +PLV75 PO; +SEVE1TAB PO; -[UNRECOGNIZED DRUG - CODE] PO
[2017-07-15] MEDS ORDERED: LEVO75TA5 PO (17:14)
[2017-07-15] MEDS ORDERED: AZIT-57 PO (17:15)
--- NOTE | 2017-07-15 17:33 | EMERGENCY ROOM VISIT NOTE ---
History Report prepared by Barbara: Ирина Phillips Under the Supervision of: Dr. Nelson Lamb M.D. First contact with patient: 17:10 Chief Complaint: SHORTNESS OF BREATH Stated Complaint: SOB History of Present Illness The patient is an 87 year old female who presents to the Emergency Room with complaints of persistent shortness of breath that started last night. The patient rates her discomfort a 3/10 in severity. The patient notes that she was unable to lay down last night. She states she kept coughing up yellow sputum. The patient normally takes 2 liters of oxygen at home only at night. Today she had to increase her oxygen to 4 liters secondary to her shortness of breath. She notes she has been on dialysis for a year and has not missed a session. The patient has a history of CHF, Afib, and heart attacks. She denies any history of COPD. The patient denies any fever, chills, nausea, vomiting, or abdominal pain. She notes she does urinate very little. The patient states she is on blood thinners. Source of History: patient Onset: last night Position: other (global) Symptom Intensity: 3/10 Quality: other (SOB) Timing: other (persistent) Associated Symptoms: + cough, No fevers, No chills, No nausea, No vomiting Review of Systems See HPI for pertinent positives and negatives. A total of ten systems were reviewed and were otherwise negative. Past Medical & Surgical Medical Problems: (1) Ac Myocrd Infrct,Oth Inferior Wall,Subseq Epis Car (2) Acute kidney injury (3) Anemia (4) Aortocoronary Bypass (5) Atrial fibrillation (6) Beta-hemolytic group B streptococcal sepsis (7) Bronchopneumonia (8) Cellulitis (9) Cellulitis of right lower extremity without foot (10) CHF exacerbation (11) Chronic Kidney Disease, Stage Iii (Moderate) (12) Chronic kidney disease, stage IV (severe) (13) Chronic kidney disease, stage V (14) Coronary artery disease (15) Coronary Atherosclerosis Of [place] Coronary Vessel (16) Diab Qiana Wo Compl, Type Ii Or Unspec Type, Not Uncntrld (17) Diabetes (18) DVT (deep venous thrombosis) (19) Dyspnea (20) 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 (21) ESRD (end stage renal disease) on dialysis (22) History of pulmonary embolism (23) Hypertension (24) Hypertension Nos (25) Hypotension (26) Knee Joint Replacement Status (27) Leukocytosis (28) Loosening of prosthetic hip (29) Moderate aortic stenosis (30) New onset atrial fibrillation (31) NSTEMI (non-ST elevated myocardial infarction) (32) NSTEMI (non-ST elevated myocardial infarction) (33) Old Myocardial Infarct (34) Percutaneous Translum Coron Angioplasty Status (35) Peripheral vascular disease (36) Pneumonia, Organism Nos (37) Positive blood culture (38) Prolonged Q-T interval on ECG (39) Pulmonary embolism (40) Pure Hypercholesterolem (41) Rectal bleeding (42) Right hip pain (43) Sepsis due to infected intravenous catheter (44) Shortness of breath (45) Urin Tract Infection Nos Family History Asthma Cancer SISTER (Breast cancer) Chronic kidney disease MOTHER Diabetes mellitus FATHER Heart disease FATHER Hypertension FATHER MOTHER Kidney disease Kidney stones Stroke Social History Smoking Status: Never Smoker Alcohol Use: none Drug Use: none Marital Status: Housing Status: lives alone Occupation Status: retired Current/Historical Medications Scheduled Acetaminophen/Hydrocodone (Hydrocodone/Acetaminophen 5-325 mg), 1 TAB PO Q6 Allopurinol (Zyloprim), 50 MG PO QAM Amiodarone Hcl (Cordarone), 200 MG PO QAM Azithromycin (Azithromycin), 250 MG PO DIRECTED Clopidogrel Bisulfate (Clopidogrel), 75 MG PO QPM Levothyroxine Sodium (Levothyroxine Sodium), 75 MCG PO QAM Multiple Vitamin (Renal Multivitamin Formul), 2 TABS PO QAM Nutritional Supplements (Colon Formula), 1 CAP PO QAM Pantoprazole (Protonix), 40 MG PO QAM Polyethylene Glycol 3350 (Miralax), 17 GM PO AMPM Rosuvastatin Calcium (Crestor), 10 MG PO HS Sennosides-Docusate Sodium (Stool Softener), 1 TAB PO BID Sevelamer Hydroch (Renagel), 800 MG PO TIDM Warfarin Sodium (Warfarin Sodium), 2 MG PO QPM Scheduled PRN Ipratropium-Albuterol (Duoneb), 1 TREATMENT INH Q4H PRN for SOB/Wheezing Oxycodone Ir (Roxicodone Ir), 1-2 TAB PO Q4H PRN for Severe Pain Allergies Coded Allergies: No Known Allergies (Unverified , 04/20/17) Physical Exam Vital Signs Date Time Temp Pulse Resp B/P (MAP) Pulse Ox O2 Delivery O2 Flow Rate FiO2 07/15/17 19:24 73 24 135/61 100 BiPAP 07/15/17 19:08 70 97 30 07/15/17 19:07 70 36 97 BiPAP/CPAP 30 07/15/17 17:06 36.7 81 18 138/70 98 Nasal Cannula 4.0 Physical Exam GENERAL: Awake, alert, chronically ill appearing, fatigued, in no distress. HENT: Normocephalic, atraumatic. Dry mucus membranes. EYES: Normal conjunctiva. Sclera non-icteric. NECK: Supple. No nuchal rigidity. FROM. Mild JVD. RESPIRATORY: Dyspneic. Diminished breath sounds posteriorly with scattered wheezes. CARDIAC: Extremities warm and well perfused. Pulses equal. 3/6 systolic murmur. ABDOMEN: Soft, non-distended. No tenderness to palpation. No rebound or guarding. No masses. RECTAL: Deferred. MUSCULOSKELETAL: Chest examination reveals no tenderness. The back is symmetrical on inspection without obvious abnormality. There is no CVA tenderness to palpation. No joint edema. EXTREMITIES: 2+ bilateral edema. Left upper extremity AV fistula with palpable thrill. NEURO: Normal sensorium. No sensory or motor deficits noted. SKIN: No rash or jaundice noted. Medical Decision & Procedures ER Provider Diagnostic Interpretation: Radiology results as stated below per my review and radiologist interpretation: CHEST ONE VIEW PORTABLE HISTORY: 87 years-old Female ABDOMINAL PAIN/GI acute generalized abdominal pain COMPARISON: Chest radiograph 07/25/2017 TECHNIQUE: Portable upright AP view of the chest FINDINGS: Dual lumen left internal jugular hemodialysis catheter is unchanged. There is atherosclerosis and tortuosity of the thoracic aorta. Prior median sternotomy. Moderate cardiomegaly is unchanged. There is pulmonary vascular congestion with coarsened interstitial opacities. There is no pneumothorax. Decreased size of small left pleural effusion. Chronic blunting of the right costophrenic angle. Subsegmental bibasilar opacities persist. Degenerative changes are seen throughout the shoulders and spine. IMPRESSION: 1. Cardiomegaly with persistent pulmonary vascular congestion and interstitial coarsening. 2. Decreased size of small left pleural effusion with bibasilar opacities suggesting atelectasis. The above report was generated using voice recognition software. It may contain grammatical, syntax or spelling errors. Electronically signed by: Rakan Grimes M.D. 07/15/2017 5:47 PM Dictated Date/Time: 07/15/2017 5:44 PM Laboratory Results 07/15/17 18:00 Red Blood Count 3.45, Mean Corpuscular Volume 99.4, Mean Corpuscular Hemoglobin 31.3, Mean Corpuscular Hemoglobin Concent 31.5, Mean Platelet Volume 9.9, Neutrophils (%) (Auto) 68.6, Lymphocytes (%) (Auto) 14.5, Monocytes (%) (Auto) 10.7, Eosinophils (%) (Auto) 5.4, Basophils (%) (Auto) 0.5, Neutrophils # (Auto ) 5.45, Lymphocytes # (Auto) 1.15, Monocytes # (Auto) 0.85, Eosinophils # (Auto ) 0.43, Basophils # (Auto) 0.04 07/15/17 18:00 Test 07/15/17 18:00 07/15/17 19:17 07/15/17 20:08 White Blood Count 7.94 K/uL (4.8-10.8) Red Blood Count 3.45 M/uL (4.2-5.4) Hemoglobin 10.8 g/dL (12.0-16.0) Hematocrit 34.3 % (37-47) Mean Corpuscular Volume 99.4 fL (80-100) Mean Corpuscular Hemoglobin 31.3 pg (25-34) Mean Corpuscular Hemoglobin Concent 31.5 g/dl (32-36) Platelet Count 152 K/uL (130-400) Mean Platelet Volume 9.9 fL (7.4-10.4) Neutrophils (%) (Auto) 68.6 % Lymphocytes (%) (Auto) 14.5 % Monocytes (%) (Auto) 10.7 % Eosinophils (%) (Auto) 5.4 % Basophils (%) (Auto) 0.5 % Neutrophils # (Auto) 5.45 K/uL (1.4-6.5) Lymphocytes # (Auto) 1.15 K/uL (1.2-3.4) Monocytes # (Auto) 0.85 K/uL (0.11-0.59) Eosinophils # (Auto) 0.43 K/uL (0-0.5) Basophils # (Auto) 0.04 K/uL (0-0.2) RDW Standard Deviation 60.8 fL (36.4-46.3) RDW Coefficient of Variation 16.7 % (11.5-14.5) Immature Granulocyte % (Auto) 0.3 % Immature Granulocyte # (Auto) 0.02 K/uL (0.00-0.02) Prothrombin Time 24.7 SECONDS (9.0-12.0) Prothromb Time International Ratio 2.2 (0.9-1.1) Anion Gap 7.0 mmol/L (3-11) Estimated GFR () 9.6 Estimated GFR (Non- 8.3 BUN/Creatinine Ratio 7.9 (10-20) Calcium Level 8.6 mg/dl (8.5-10.1) Phosphorus Level 4.4 mg/dl (2.5-4.9) Magnesium Level 2.8 mg/dl (1.8-2.4) Total Bilirubin 0.7 mg/dl (0.2-1) Direct Bilirubin 0.2 mg/dl (0-0.2) Aspartate Amino Transf (AST/SGOT) 16 U/L (15-37) Alanine Aminotransferase (ALT/SGPT) 10 U/L (12-78) Alkaline Phosphatase 99 U/L (45-117) Troponin I 0.057 ng/ml (0-0.045) Total Protein 7.4 gm/dl (6.4-8.2) Albumin 2.4 gm/dl (3.4-5.0) Lipase 101 U/L (73-393) Venous Blood pH 7.42 (7.36-7.41) Venous Blood Partial Pressure CO2 49 mmHg (38.0-50.0) Venous Blood Partial Pressure O2 49 mmHg Venous Blood HCO3 31 mmol/L Venous Blood Oxygen Saturation 81.3 % Venous Blood Base Excess 5.4 mEq/L Lactic Acid Level 1.0 mmol/L (0.4-2.0) Laboratory results reviewed by me Medications Administered Medications (Trade) Dose Ordered Sig/Janeth Route Start Time Stop Time Status Last Admin Dose Admin Albuterol/ Ipratropium (Duoneb) 12 ml ONE ONCE INH 07/15/17 19:00 07/15/17 19:01 DC 07/15/17 19:07 12 ML Piperacillin Sod/ Tazobactam Sod 4.5 gm/Dextrose 120 ml @ 200 mls/hr NOW ONCE IV 07/15/17 19:45 07/15/17 20:20 DC 07/15/17 20:19 200 MLS/HR Vancomycin HCl 1250 mg/Sodium Chloride 275 ml @ 125 mls/hr 1930 IV 07/15/17 19:30 07/15/17 21:42 DC 07/15/17 19:30 125 MLS/HR ECG Indication: SOB/dyspnea Rate (beats per minute): 74 Rhythm: sinus rhythm Findings: 1st degree AV block, no acute ischemic change, other (normal axis, non-specific IV delay.) Change: no significant change ED Course 0: The patient was evaluated in room B8. A complete history and physical exam was performed. 1844: Upon reexamination, the patient was feeling much more short of breath. I performed a bedside echo. There was no pericardial effusion. Mildly diminished left ventricular function. No signs of right heart strain. She was also much more wheezy. I will administer more nebs and BiPAP and see if she starts feeling better. 1899: Duoneb 12 ml INH. 1929: Vancomycin HCI 1250 mg/Sodium Chloride 525 ml @ 200 mls/hr IV. 1930: I discussed the patient with Dr. Fitzgerald, resident with [facility] [place] - He will evaluate the patient for further treatment. 1944: Piperacillin Sod/Tazobactam Sod 4.5 gm/Dextrose 110 ml @ 200 mls/hr IV. Medical Decision I reviewed the patient's past medical history, medications, and the nursing notes as described above. The patient's presentation and history were concerning for PNA, CHF, bronchitis , Afib, UTI, Sepsis. The patient is an 87-year-old woman with a past mental history of CHF (EF 35%) on 2 L nocturnal O2, end-stage renal disease on HD MWF this emergency Department with worsening dyspnea with cough congestion and yellow sputum production since yesterday history of present illness. Symptoms occur in the setting of being admitted to the hospital [facility] recently. Patient denies missing any HD sessions. Patient arrived dyspneic but in no acute distress with diminished breath sounds in scattered wheezes. As workup was pending the patient was noticed to become even more dyspneic with labored breathing and accessory muscle use. Thus patient was put on BiPAP for work of breathing and given continuous neb to address likely bronchospastic component. Chest x-ray shows pulmonary edema which is similar to her last admission. WBC is within normal limits however given the patient's yellow sputum production will treat for age. Bedside echo shows no pericardial effusion otherwise mildly diminished LV function likely similar to prior. Trop 0.057 similar to patient's chronic elevations in setting of ESRD. Case was discussed with Dr. Munoz, [facility] admitting resident, who will admit the patient for further management. Medication Reconcilliation Current Medication List: was personally reviewed by me Blood Pressure Screening Patient's blood pressure: Normal blood pressure Consults Time Called: 1919 Consulting Physician: Dr. Fitzgerald, resident with [facility] [place] Returned Call: 1930 I discussed the patient with Dr. Fitzgerald, resident with [facility] [place] - He will evaluate the patient for further treatment. Impression Primary Impression: Congestive heart failure Additional Impressions: Pneumonia Sepsis Respiratory failure with hypoxia Critical Care I have personally spent greater than 80 minutes of critical care time in the direct management of this patient. This includes bedside care, interpretation of diagnostic studies, and testing, discussion with consultants, patient, and family members, and other required patient management activities. This 80 minutes is in excess of all separately billable procedures. Scribe Attestation The scribe's documentation has been prepared under my direction and personally reviewed by me in its entirety. I confirm that the note above accurately reflects all work, treatment, procedures, and medical decision making performed by me. Departure Information Dispostion Being Evaluated By Hospitalist Referrals Cooper Hart M.D. (PCP) Patient Instructions My [facility] Problem Qualifiers
--- NOTE | 2017-07-15 17:48 | DIAGNOSTIC IMAGING REPORT ---
CHEST ONE VIEW PORTABLE HISTORY: 87 years-old Female ABDOMINAL PAIN/GI acute generalized abdominal pain COMPARISON: Chest radiograph 07/25/2017 TECHNIQUE: Portable upright AP view of the chest FINDINGS: Dual lumen left internal jugular hemodialysis catheter is unchanged. There is atherosclerosis and tortuosity of the thoracic aorta. Prior median sternotomy. Moderate cardiomegaly is unchanged. There is pulmonary vascular congestion with coarsened interstitial opacities. There is no pneumothorax. Decreased size of small left pleural effusion. Chronic blunting of the right costophrenic angle. Subsegmental bibasilar opacities persist. Degenerative changes are seen throughout the shoulders and spine. IMPRESSION: 1. Cardiomegaly with persistent pulmonary vascular congestion and interstitial coarsening. 2. Decreased size of small left pleural effusion with bibasilar opacities suggesting atelectasis. The above report was generated using voice recognition software. It may contain grammatical, syntax or spelling errors. Electronically signed by: Rakan Grimes M.D. 07/15/2017 5:47 PM Dictated Date/Time: 07/15/2017 5:44 PM
[2017-07-15 18:15] LABS: BASO % 0.5 %; BASO ABS # 0.04 K/uL (0-0.2); COMPLETE YES; EOS % 5.4 %; HEMATOCRIT 34.3 % (37-47); IG% 0.3 %; LYMPH % 14.5 %; LYMPH ABS # 1.15 K/uL (1.2-3.4); MEAN CELL VOLUME 99.4 fL (80-100); MEAN CORPUSCULAR HEMOGLOBIN 31.3 pg (25-34); MEAN CORPUSCULAR HGB CONC 31.5 g/dl (32-36); MEAN PLATELET VOLUME 9.9 fL (7.4-10.4); MONO % 10.7 %; NEUT % 68.6 %; PLATELET COUNT 152 K/uL (130-400); RED BLOOD COUNT 3.45 M/uL (4.2-5.4); WHITE BLOOD COUNT 7.94 K/uL (4.8-10.8)
[2017-07-15 18:42] LABS: ALKALINE PHOSPHATASE 99 U/L (45-117); ALT/SGPT 10 U/L (12-78); AST/SGOT 16 U/L (15-37); BLOOD UREA NITROGEN 35 mg/dl (7-18); BUN/CREATININE RATIO 7.9 (10-20); CALCIUM 8.6 mg/dl (8.5-10.1); CARBON DIOXIDE 32 mmol/L (21-32); CHLORIDE 96 mmol/L (98-107); CREATININE 4.49 mg/dl (0.60-1.20); GLUCOSE 115 mg/dl (70-99); MAGNESIUM 2.8 mg/dl (1.8-2.4); PHOSPHORUS 4.4 mg/dl (2.5-4.9); POTASSIUM 4.3 mmol/L (3.5-5.1); SODIUM 135 mmol/L (136-145)
[2017-07-15] MEDS ORDERED: ALBUT/IPRATROP 3MG/0.5MG NEB 3 ML VIAL INH ONE (19:00)
[2017-07-15 19:07] VITALS: PULSE 70; O2SAT 97
[2017-07-15 19:08] VITALS: PULSE 70; O2SAT 97
[2017-07-15 19:10] LABS: INR 2.2 (0.9-1.1); PROTHROMBIN TIME (PATIENT) 24.7 SECONDS (9.0-12.0)
[2017-07-15] MEDS ORDERED: PIPERACILL/TAZOBAC IV 2.25 GM in DEXTROSE 5% 100ML 100 ML IV STA (19:21)
[2017-07-15 19:28] LABS: VEN BLD GAS O2 SATURATION 81.3 %; VEN BLOOD GAS BASE EXCESS 5.4 mEq/L
[2017-07-15] MEDS ORDERED: VANCOMYCIN INJ 1,250 MG in SODIUM CHLORIDE 0.9% 250ML 250 ML IV SCH (19:30)
[2017-07-15] MEDS ORDERED: VANCOMYCIN INJ 1,250 MG in SODIUM CHLORIDE 0.9% 500ML 500 ML IV SCH (19:30)
[2017-07-15] MEDS ORDERED: PIPERACILL/TAZOBAC IV 4.5 GM in DEXTROSE 5% 100ML IV ONE (19:45)
[2017-07-15] MEDS ORDERED: NITROGLYCERIN 0.4 MG SL PER TAB CHARGE SL PRN (20:15)
[2017-07-15] MEDS ORDERED: ALBUT/IPRATROP 3MG/0.5MG NEB 3 ML VIAL INH PRN (20:15)
[2017-07-15] MEDS ORDERED: CONSULT PHARMACY STA (21:09)
[2017-07-15] MEDS ORDERED: PATIENT'S HEIGHT AND/OR WEIGHT NEEDED SCH (21:45)
[2017-07-15] MEDS ORDERED: CEFEPIME CONSULT ACTIVE PRN ×2 (21:45)
[2017-07-15] MEDS ORDERED: LEVOFLOXACIN CONSULT ACTIVE PRN (21:45)
[2017-07-15 21:51] VITALS: PULSE 80; O2SAT 96
[2017-07-15 21:53] VITALS: BP 113/40; PULSE 74; TEMP 36.8; O2SAT 96; Ht 162.6 cm; Wt 68.6 kg
[2017-07-15] MEDS ORDERED: LEVOFLOXACIN / D5W 750 MG in PREMIXED IN D5W 150 ML IV ONE (22:00)
--- NOTE | 2017-07-15 22:28 | History and Physical ---
History & Physical Date & Time of Service: Jul 15, 2017 at 21:25 Chief Complaint: SOB Primary Care Physician: Cooper Hart M.D. History of Present Illness Source: patient, hospital records Mrs Rahman is an 87 year old female who presents to the ER with worsening shortness of breath over the past few days. She has a pertinent medical history of ESRD on dialysis, multiple NC s/p CABG in 1996, paroxysmal atrial fibrillation, moderate-severe , moderate MR, ischemic cardiomyopathy (35-40% EF), CAD (CABG x4 1996, RCA stent 2006), Hypertension and T2DM (diet controlled) . She was recently admitted to hospital twice during June, for cellulitis on Jun 03 and most recently from Jun treated for hospital acquired pneumonia. She was discharged back to her home where she lives with her granddaughter. Since discharge she has never fully recovered but in the last 2 days she has been getting worse with similar symptoms to last time. However currently she feels more short of breath, like she can't take a deep enough breath in. In the ER she was given an hour long duoneb and was started on BiPAP (due to feeling short of breath rather than poor oxygenation or CO2) and she feels this has helped. Her shortness of breath is worse when lying down. She is coughing up yellow sputum. She undergoes dialysis on Sunday, Sunday and Fridays and has not missed any sessions. She is under Dr Quezada. With regards to her heart she most recently had an NC in March. She refuses to have a cardiac catheterization and would not consider a redo CABG. She is under Dr Hernandez. With regards to her respiratory status she is under Cole Medrano PA-C. She has a diagnosis of bronchial asthma but not on any regular inhalers. During her last admission she improved without steroids and was discharged with saturations of 98-99% on room air. Previous PFTs in 2014 showed no obstructive disease or reversal with bronchodilator, DLCO was significantly reduced. She has been on amiodarone for approximately 1 year as per patient for 1 episode of atrial fibrillation. Her daughter notes a general decline since she started dialysis rather than since starting amiodarone therapy. 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 heart disease (moderate to severe , moderate MR) Recent hospital acquired pneumonia Type 2 diabetes mellitus - diet controlled Chronic hypoxic respiratory failure DVT Diverticulosis Esophageal dysmotility Esophageal stricture GERD Gout Hypothyroidism Nephrolithiasis Hx retroperitoneal bleed Secondary hypoparathyroidism Past Surgical History: Total hip replacement Total Knee replacement Cholecystectomy Family History Asthma Cancer SISTER (Breast cancer) Chronic kidney disease MOTHER Diabetes mellitus FATHER Heart disease FATHER Hypertension FATHER MOTHER Kidney disease Kidney stones Stroke Social History Smoking Status: Never Smoker Drug Use: none Marital Status: Housing status: lives with family Occupational Status: retired Immunizations History of Influenza Vaccine: Yes Influenza Vaccine Date: Apr 17, 2012 History of Tetanus Vaccine?: Yes Tetanus Immunization Date: Dec 16, 2006 History of Pneumococcal: Yes Pneumococcal Date: Dec 17, 2007 History of Hepatitis B Vaccine: No Multi-Drug Resistant Organisms History of MDRO: No Allergies Coded Allergies: No Known Allergies (Unverified , 04/20/17) Home Medications Scheduled Acetaminophen/Hydrocodone (Hydrocodone/Acetaminophen 5-325 mg), 1 TAB PO Q6 Allopurinol (Zyloprim), 50 MG PO QAM Amiodarone Hcl (Cordarone), 200 MG PO QAM Azithromycin (Azithromycin), 250 MG PO DIRECTED Clopidogrel Bisulfate (Clopidogrel), 75 MG PO QPM Levothyroxine Sodium (Levothyroxine Sodium), 75 MCG PO QAM Multiple Vitamin (Renal Multivitamin Formul), 2 TABS PO QAM Nutritional Supplements (Colon Formula), 1 CAP PO QAM Pantoprazole (Protonix), 40 MG PO QAM Polyethylene Glycol 3350 (Miralax), 17 GM PO AMPM Rosuvastatin Calcium (Crestor), 10 MG PO HS Sennosides-Docusate Sodium (Stool Softener), 1 TAB PO BID Sevelamer Hydroch (Renagel), 800 MG PO TIDM Warfarin Sodium (Warfarin Sodium), 2 MG PO QPM Scheduled PRN Ipratropium-Albuterol (Duoneb), 1 TREATMENT INH Q4H PRN for SOB/Wheezing Oxycodone Ir (Roxicodone Ir), 1-2 TAB PO Q4H PRN for Severe Pain Review of Systems Constitutional: No fever, No chills Eyes: No worsening of vision ENT: No hearing loss Respiratory: + cough, + sputum, + wheezing, + shortness of breath, + dyspnea on exertion, + dyspnea at rest, No hemoptysis Cardiovascular: + orthopnea, No chest pain, No PND, No edema, No claudication, No palpitations Abdomen: No pain, No nausea, No vomiting, No diarrhea, No constipation, No GI bleeding Musculoskeletal: No joint pain, No muscle pain Genitourinary - Female: No dysuria, No urinary frequency, No urinary urgency, No urinary incontinence, No urinary retention Neurologic: No numbness/tingling, No balance problems Endocrine: + fatigue Hematologic / Lymphatic: No abnormal bleeding/bruising Integumentary: No rash, No itch Physical Exam Vital Signs Date Time Temp Pulse Resp B/P (MAP) Pulse Ox O2 Delivery O2 Flow Rate FiO2 07/15/17 20:49 84 22 100/41 94 Humidified Oxygen 4.0 07/15/17 19:24 73 24 135/61 100 BiPAP 07/15/17 19:08 70 97 30 07/15/17 19:07 70 36 97 BiPAP/CPAP 30 07/15/17 17:06 36.7 81 18 138/70 98 Nasal Cannula 4.0 General Appearance: WD/WN, + mild distress (respiratory distress) Head: normocephalic, atraumatic Eyes: PERRL, EOMI ENT: + pertinent finding (dry mucus membranes) Neck: supple, no JVD Respiratory/Chest: chest non-tender, + respiratory distress (mild), + decreased breath sounds (throughout), + accessory muscle use, + crackles ( bibasal coarse), + wheezing (throughout) Cardiovascular: regular rate, rhythm, + systolic murmur (throughout, most prominent in apex, known moderate-severe , moderate MR) Abdomen/GI: normal bowel sounds, non tender, soft Back: no CVA tenderness Extremities/Musculoskelatal: no calf tenderness, normal capillary refill, no pedal edema 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 (no facial droop), no motor/sensory deficits, alert, oriented x 3 Skin: normal color, warm/dry, no rash Diagnostics Laboratory Results Results Past 24 Hours Test 07/15/17 18:00 07/15/17 19:17 07/15/17 20:08 Range/Units White Blood Count 7.94 4.8-10.8 K/uL Red Blood Count 3.45 4.2-5.4 M/uL Hemoglobin 10.8 12.0-16.0 g/dL Hematocrit 34.3 37-47 % Mean Corpuscular Volume 99.4 80-100 fL Mean Corpuscular Hemoglobin 31.3 25-34 pg Mean Corpuscular Hemoglobin Concent 31.5 32-36 g/dl Platelet Count 152 130-400 K/uL Mean Platelet Volume 9.9 7.4-10.4 fL Neutrophils (%) (Auto) 68.6 % Lymphocytes (%) (Auto) 14.5 % Monocytes (%) (Auto) 10.7 % Eosinophils (%) (Auto) 5.4 % Basophils (%) (Auto) 0.5 % Neutrophils # (Auto) 5.45 1.4-6.5 K/uL Lymphocytes # (Auto) 1.15 1.2-3.4 K/uL Monocytes # (Auto) 0.85 0.11-0.59 K/uL Eosinophils # (Auto) 0.43 0-0.5 K/uL Basophils # (Auto) 0.04 0-0.2 K/uL RDW Standard Deviation 60.8 36.4-46.3 fL RDW Coefficient of Variation 16.7 11.5-14.5 % Immature Granulocyte % (Auto) 0.3 % Immature Granulocyte # (Auto) 0.02 0.00-0.02 K/uL Prothrombin Time 24.7 9.0-12.0 SECONDS Prothromb Time International Ratio 2.2 0.9-1.1 Sodium Level 135 136-145 mmol/L Potassium Level 4.3 3.5-5.1 mmol/L Chloride Level 96 98-107 mmol/L Carbon Dioxide Level 32 21-32 mmol/L Anion Gap 7.0 3-11 mmol/L Blood Urea Nitrogen 35 7-18 mg/dl Creatinine 4.49 0.60-1.20 mg/dl Estimated GFR () 9.6 Estimated GFR (Non- 8.3 BUN/Creatinine Ratio 7.9 10-20 Random Glucose 115 70-99 mg/dl Calcium Level 8.6 8.5-10.1 mg/dl Phosphorus Level 4.4 2.5-4.9 mg/dl Magnesium Level 2.8 1.8-2.4 mg/dl Total Bilirubin 0.7 0.2-1 mg/dl Direct Bilirubin 0.2 0-0.2 mg/dl Aspartate Amino Transf (AST/SGOT) 16 15-37 U/L Alanine Aminotransferase (ALT/SGPT) 10 12-78 U/L Alkaline Phosphatase 99 45-117 U/L Troponin I 0.057 0-0.045 ng/ml Total Protein 7.4 6.4-8.2 gm/dl Albumin 2.4 3.4-5.0 gm/dl Lipase 101 73-393 U/L Venous Blood pH 7.42 7.36-7.41 Venous Blood Partial Pressure CO2 49 38.0-50.0 mmHg Venous Blood Partial Pressure O2 49 mmHg Venous Blood HCO3 31 mmol/L Venous Blood Oxygen Saturation 81.3 % Venous Blood Base Excess 5.4 mEq/L Lactic Acid Level 1.0 0.4-2.0 mmol/L Microbiology Results 07/15/17 Blood Culture, Received Pending 07/15/17 Blood Culture, Received Pending Diagnostic Radiology CHEST ONE VIEW PORTABLE HISTORY: 87 years-old Female ABDOMINAL PAIN/GI acute generalized abdominal pain COMPARISON: Chest radiograph 07/25/2017 TECHNIQUE: Portable upright AP view of the chest FINDINGS: Dual lumen left internal jugular hemodialysis catheter is unchanged. There is atherosclerosis and tortuosity of the thoracic aorta. Prior median sternotomy. Moderate cardiomegaly is unchanged. There is pulmonary vascular congestion with coarsened interstitial opacities. There is no pneumothorax. Decreased size of small left pleural effusion. Chronic blunting of the right costophrenic angle. Subsegmental bibasilar opacities persist. Degenerative changes are seen throughout the shoulders and spine. IMPRESSION: 1. Cardiomegaly with persistent pulmonary vascular congestion and interstitial coarsening. 2. Decreased size of small left pleural effusion with bibasilar opacities suggesting atelectasis. The above report was generated using voice recognition software. It may contain grammatical, syntax or spelling errors. Electronically signed by: Rakan Grimes M.D. 07/15/2017 5:47 PM Dictated Date/Time: 07/15/2017 5:44 PM EKG Sinus rhythm with 1st degree A-V block Rate 74 bpm When compared with ECG of 27-JUN-2017 19:23, T wave inversion no longer evident in Inferior/Lateral leads QTc 490ms Impression Assessment and Plan 87 year old female with CAD, ESRD on dialysis, valvular disease and recent hospitalization with pneumonia presents with worsening shortness of breath over the past 2 days and cough. Acute hypoxic respiratory failure - appears short of breath at rest using accessory muscles with increased O2 requirement since discharged at the end of June, no significant pulmonary edema/effusion on CXR, suspect most likely viral bronchitis URI with mucus plugging with multiple underlying co-morbidities , need to cover for healthcare associated pneumonia given CXR and auscultation findings although these are likely chronic rather than acute - O2 to maintain sats > 94% - BiPAP 07/08 as required for comfort if patient feeling short of breath, discussed risks of pneumothorax with this. - MRSA nose swab and rapid influenza - incentive spirometry and flutter valve - continue duonebs for pulmonary toilet, will initiate sterids based on her current condition and presence of wheezing. - Consult pulmonology in morning given readmission for same condition - initial troponin chronically raised, repeat in morning to check worsening is not cardiac related - consider CT chest if worsening, unlikely PE given therapeutic on warfarin although clearly has multiple risk factors for this, would need to be done before dialysis Possible hospital/healthcare acquired pneumonia - Cefepime + Levaquin - Vancomycin if MRSA swab +ve (previously negative) 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 Consult nephrology Coronary Artery disease (s/p CABG 1996, stent to RCA 2006, with obstructed SVGs to the diagonal and ramus branches), Hx Multiple NSTEMIs and STEMI, Paroxysmal Atrial Fibrillation, Ischemic Cardiomyopathy (EF 35-40%), Hypertension, Hypercholesterolemia, Combined systolic and diastolic heart failure, Valvular heart disease (moderate to severe , moderate MR) - Continue clopidogrel, amiodarone and rosuvastatin. Not on beta-jose angel or ACEi as outpatient Hx DVT - Continue warfarin home dosing - monitor PTINR GERD - continue pantoprazole 40mg PO daily Gout - Continue allopurinol 50mg PO daily Hypothyroidism - Continue levothyroxine 75 mcg PO daily Resident Physician Supervision Note: I was present with Dr. Fitzgerald during the history and exam. I discussed the case with the resident and agree with the findings and plan as documented in the note. Any exceptions or clarifications are listed here: 87 y/o F Hx CAD - multiple MIs, ESRD on HD, PAF, Hx DVT - recent admission for HCAP -states resp status never fully recovered following DC - presenting with progressive SOB and productive cough. OE Pt on BIPAP at time of exam - appears mildly distressed - maintaining an adequate 02 sat AAO x 2 S1,2 R +m Very poor air movement - no entry at bases - some end-expiratory wheezing - no clear crackles No CCE = multiple bruises noted P: Pt will be treated for HCAP pending culture results and pulm consult - She may have underlying interstitial disease judging by previous PFOs. Will treat for HCAP and start steroids based on clinical condition and chroniicity of symptoms. There is evidence of vascular congestion which is likely exacerbating her CHF although she participated in dialysis one day prior. We may need early dialysis if additional volume proves intractable and will consider Lasix as a temporizing measure. The pt's trop is chronically elevated - he is at high risk for event and had an NC as recently as February - she has refused recent cath - a repeat trop is pending , however she is already anticoagulated with Coumadin. Documented By: Maikol Kim Level of Care Telemetry Resuscitation Status DO NOT RESUSCITATE (as per patient wishes) VTE Prophylaxis VTE Risk Assessment Done? Y/N: Yes Risk Level: Moderate Given or contraindicated: Warfarin (Coumadin)Brain, SCD's Resident Tracking Resident Involvement: Resident Care Provided Care Provided: Adult Hospital Medicine
[2017-07-15] MEDS: WARFARIN SOD 2 MG TAB PO SCH (22:30)
[2017-07-15] MEDS: GUAIFENESIN 600 MG TABCR PO SCH (23:22)
[2017-07-15] MEDS: ROSUVASTATIN CALCIUM 10 MG TAB PO SCH (23:22)
[2017-07-15] MEDS: POLYETHYLENE (MIRALAX) 17 GM PACK PO SCH (23:22)
[2017-07-15] MEDS: CLOPIDOGREL BISULFATE 75 MG TAB PO SCH (23:23)
[2017-07-15] MEDS: DOCUSATE SODIUM/SENNA 50/8.6MG TAB PO SCH (23:23)
[2017-07-15 23:31] LABS: INFLUENZA A PCR Neg for Influ A (NEG); INFLUENZA B PCR Neg for Influ B (NEG)
[2017-07-16] VITALS (36 sets, daily range): BP systolic 104–146; BP diastolic 44–74; PULSE 63–79; TEMP 36.5–36.9; O2SAT 91–99
[2017-07-16] MEDS ORDERED: CEFEPIME IV 1,000 MG in SYRINGE 0 ML IV SCH
[2017-07-16] MEDS: ALBUT/IPRATROP 3MG/0.5MG NEB 3 ML VIAL INH SCH ×7 (02:14→23:31)
[2017-07-16] MEDS ORDERED: CEFEPIME IV 2,000 MG in DEXTROSE 5% 100ML 100 ML IV SCH (04:00)
[2017-07-16] MEDS ORDERED: FUROSEMIDE INJ 20 MG in SYRINGE 0 ML IV ONE (04:15)
[2017-07-16] MEDS: METHYLPREDNISOLONE IV 40 MG in SYRINGE 0 ML IV SCH ×2 (05:17→10:00)
[2017-07-16] MEDS: LEVOTHYROXINE 75 MCG TAB PO SCH (05:49)
[2017-07-16 06:10] LABS: BASO % 0.4 %; BASO ABS # 0.03 K/uL (0-0.2); COMPLETE YES; EOS % 6.1 %; HEMATOCRIT 31.4 % (37-47); IG% 0.2 %; LYMPH % 12.6 %; LYMPH ABS # 1.06 K/uL (1.2-3.4); MEAN CELL VOLUME 98.7 fL (80-100); MEAN CORPUSCULAR HEMOGLOBIN 30.8 pg (25-34); MEAN CORPUSCULAR HGB CONC 31.2 g/dl (32-36); MEAN PLATELET VOLUME 10.1 fL (7.4-10.4); MONO % 11.3 %; NEUT % 69.4 %; PLATELET COUNT 154 K/uL (130-400); RED BLOOD COUNT 3.18 M/uL (4.2-5.4); WHITE BLOOD COUNT 8.38 K/uL (4.8-10.8)
[2017-07-16 06:31] LABS: INR 2.4 (0.9-1.1); PROTHROMBIN TIME (PATIENT) 26.1 SECONDS (9.0-12.0)
[2017-07-16 06:51] LABS: URINE APPEARANCE CLOUDY (CLEAR); URINE BILIRUBIN NEG (NEG); URINE COLOR DK YELLOW; URINE EPITHELIAL CELL AUTO >30 /lpf (0-5); URINE NITRITE NEG (NEG); URINE SPECIFIC GRAVITY 1.024 (1.000-1.030); UROBILINOGEN NEG (NEG); ZZUR CULT IF INDIC CLEAN CATCH YES
[2017-07-16 06:53] LABS: CALCIUM 8.4 mg/dl (8.5-10.1); CREATININE 4.8 mg/dl (0.60-1.20); POTASSIUM 4.6 mmol/L (3.5-5.1)
[2017-07-16 06:58] LABS: MANUAL MICROSCOPIC REQUIRED? NO; REVIEW REQ? YES
[2017-07-16] MEDS: SEVELAMER HYDROCH 800 MG TAB PO SCH ×3 (07:37→16:44)
[2017-07-16] MEDS: POLYETHYLENE (MIRALAX) 17 GM PACK PO SCH ×2 (07:39→20:38)
[2017-07-16] MEDS: PANTOprazole SOD 40 MG TAB PO SCH (07:41)
[2017-07-16] MEDS: DOCUSATE SODIUM/SENNA 50/8.6MG TAB PO SCH ×2 (07:41→20:40)
[2017-07-16] MEDS: GUAIFENESIN 600 MG TABCR PO SCH ×2 (07:41→20:39)
[2017-07-16] MEDS: MULTIVITAMIN TAB PO SCH (07:41)
[2017-07-16] MEDS: AMIODARONE 200 MG TAB PO SCH (07:42)
[2017-07-16] MEDS: ALLOPURINOL 100 MG TAB PO SCH (07:42)
[2017-07-16] MEDS ORDERED: PARICALCITOL 5 MCG/ML VIAL (ZEMPLAR) IV. SCH (09:00)
[2017-07-16] MEDS ORDERED: NUTRITIONAL SUPPLEMENTS PO SCH (09:00)
[2017-07-16] MEDS ORDERED: HEPARIN SOD (PORCINE) 1000 UNIT/ML 10 ML VIAL IV SCH (09:00)
[2017-07-16] MEDS ORDERED: EPOETIN ALFA 10,000 UNITS/ML VIAL IV. SCH (09:00)
--- NOTE | 2017-07-16 10:48 | Nephrology Consultation ---
Nephrology Consultation Date & Providers Date of Consultation: Jul 16, 2017. Primary Care Provider: Cooper Hart M.D. Referring Provider: Reason for Consultation ESRD requiring HD History of Present Illness Ms. Rahman is an 87 year old white female who is seen at the request of Dr. Desir to provide inpatient HD and assist w/ medical management. Medical records in the hospital EMR were reviewed and are summarized as follows: Ms. Rahman has ESRD due to cardiorenal syndrome w/ recurrent CHF. She has been on HD since . She currently dialyzes MWF at [facility] (HD Rx: 4 hr 2K 2Ca F-160 EDW 70.2 kg Heparin 2000 bolus hourly). Her PMH is also significant for long- standing AODM, HTN, PVD w/ bilateral carotid arterial disease, ASCVD s/p CABG x 4 1996 and OA. In 1996 patient suffered an episode of angina. Cardiac catheterization revealed RCA stenosis. Patient required angioplasty with stenting. Post procedure she developed a pseudoaneurysm with a large right groin hematoma which required emergency surgical repair. Due to her ASCVD Ms. Rahman has been on chronic ASA and Plavix therapy. She was hospitalized 09/19 with severe LGI bleeding requiring transfusion w/ 4 U PRBC. In 01/17 she was admitted w/ LLE DVT. Her hospitalization was complicated by infiltration of her L upper arm AVF. She developed a large hematoma and she has required several IJ THC to allow her AVF hematoma to resolve. Her AVF is now being used for HD and patient is scheduled to have her IJ THC removed later this week. Ms. Rahman has a prosthetic R hip. The prosthesis has loosened and causes her pain. She has undergone Orthopedic evaluation. She is not felt to be an operative candidate due to her multiple medical problems. Ms. Rahman was last hospitalized in 06/19 w/ LLL pneumonia. She recovered following a prolonged course of antibiotics. Over the last two days she has suffered from a recurrent cough productive of yellow sputum and progressive dyspnea. She presented to the ED yesterday evening where she was found to be hypoxemic and required CPAP therapy. CXR revealed a small left effusion without infiltrate. Ms. Rahman was admitted to the ICU for ongoing ventilatory support and hemodialysis. Past Medical/Surgical History Medical: # ASCVD s/p CABG x 4 1996 # Atrial fibrillation # Moderate # Cardiac cath 2006 complicated by pseudoaneurysm of the right femoral artery requiring emergency surgical repair # AODM # HTN # PVD - carotid stenosis # h/o nephrolithiasis # Cholelithiasis # LGI bleed 09/19 Surgical: # R hip prosthesis # h/o R and L IJ THC insertion # AVF creation # R femoral artery pseudoaneurysm repair Allergies Coded Allergies: No Known Allergies (Unverified , 04/20/17) Inpatient Medications Current Inpatient Medications Medications (Trade) Dose Ordered Sig/Janeth Route Start Time Stop Time Status Last Admin Dose Admin Acetaminophen (Tylenol Tab) 650 mg Q4H PRN PO 07/15/17 20:15 08/14/17 20:14 Ondansetron HCl (Zofran Inj) 4 mg Q6H PRN IV 07/15/17 20:15 08/14/17 20:14 Nitroglycerin (Nitrostat Tab) 0.4 mg UD PRN SL 07/15/17 20:15 08/14/17 20:14 Allopurinol (Zyloprim Tab) 50 mg QAM PO 07/16/17 09:00 08/15/17 08:59 07/16/17 07:42 50 MG Amiodarone HCl (Cordarone Tab) 200 mg QAM PO 07/16/17 09:00 08/15/17 08:59 07/16/17 07:42 200 MG Clopidogrel Bisulfate (plAVix TAB) 75 mg QPM PO 07/15/17 21:00 08/14/17 20:59 07/15/17 23:23 75 MG Levothyroxine Sodium (Synthroid Tab) 75 mcg DAILYBB PO 07/16/17 06:00 08/15/17 06:59 07/16/17 05:49 75 MCG Multivitamins (Multivitamin Tab) 2 tab QAM PO 07/16/17 09:00 08/15/17 08:59 07/16/17 07:41 2 TAB Oxycodone HCl (Roxicodone Immediate Rel Tab) Pain 5-8 - give 5mg Pain 9... Q4H PRN PO 07/15/17 20:15 07/29/17 20:14 Pantoprazole Sodium (Protonix Tab) 40 mg QAM PO 07/16/17 09:00 08/15/17 08:59 07/16/17 07:41 40 MG Rosuvastatin Calcium (Crestor Tab) 10 mg HS PO 07/15/17 21:00 08/14/17 20:59 07/15/17 23:22 10 MG Senna/Docusate Sodium (Senokot S Tab) 1 tab BID PO 07/15/17 21:00 08/14/17 20:59 07/16/17 07:41 1 TAB Sevelamer HCl (Renagel Tab) 800 mg TIDM PO 07/16/17 07:30 08/15/17 07:59 07/16/17 07:37 800 MG Warfarin Sodium (Coumadin Tab) 2 mg QPM PO 07/15/17 21:00 08/14/17 20:59 07/15/17 22:30 2 MG Polyethylene (Miralax Powder Packet) 17 gm BID PO 07/15/17 21:00 08/14/17 20:59 07/16/17 07:39 17 GM Guaifenesin (Mucinex Contr Rel Tab) 600 mg Q12 PO 07/15/17 21:00 08/14/17 20:59 07/16/17 07:41 600 MG Albuterol/ Ipratropium (Duoneb) 3 ml Q2H PRN INH 07/15/17 20:15 08/14/17 20:14 Albuterol/ Ipratropium (Duoneb) 3 ml Q4R INH 07/16/17 00:00 08/15/17 00:00 07/16/17 06:54 3 ML Cefepime HCl (Consult) 1 ea UD PRN N/A 07/15/17 21:45 08/14/17 21:44 Levofloxacin (Consult) 1 ea UD PRN N/A 07/15/17 21:45 08/14/17 21:44 Levofloxacin 500 mg/Prmx 100 ml @ 100 mls/hr Q48H IV 07/17/17 22:00 07/22/17 21:59 Cefepime HCl 500 mg/Syringe 5.5 ml @ 5.5 mls/min Q24H IV 07/16/17 18:00 07/22/17 17:59 Methylprednisolone Sodium Succinate 40 mg/Syringe 0.64 ml @ 1.5 mls/min Q6H IV 07/16/17 04:00 08/15/17 03:59 07/16/17 05:17 1.5 MLS/MIN Heparin Sodium (Porcine) (Heparin Iv Bolus) 2,000 unit 0900 IV 07/16/17 09:00 07/16/17 18:00 Epoetin Joshua (Procrit Inj) 10,000 units 0900 IV. 07/16/17 09:00 07/16/17 18:00 Paricalcitol (Zemplar Inj) 3 mcg 0900 IV. 07/16/17 09:00 07/16/17 18:00 Family History Asthma Cancer SISTER (Breast cancer) Chronic kidney disease MOTHER Diabetes mellitus FATHER Heart disease FATHER Hypertension FATHER MOTHER Kidney disease Kidney stones Stroke Negative for CKD / ESRD Social History Smoking Status: Never Smoker Drug Use: none Marital Status: Housing Status: lives with family Occupation: retired . Retired. Never a smoker. Review of Systems Constitutional: No fever Respiratory: + cough, + sputum Cardiovascular: No chest pain Abdomen: No pain, No nausea, No vomiting A complete review of systems was performed. Pertinent positives are noted above. All other systems are negative. Physical Exam Date Time Temp Pulse Resp B/P (MAP) Pulse Ox O2 Delivery O2 Flow Rate FiO2 07/16/17 08:00 94 Nasal Cannula 4.0 30 BiPAP 07/16/17 07:31 36.5 76 30 122/62 (82) 94 Nasal Cannula 3.0 07/16/17 06:54 63 34 91 BiPAP/CPAP 30 07/16/17 04:21 36.8 68 22 131/64 (86) 96 BiPAP 07/16/17 04:00 95 BiPAP 30 07/16/17 02:16 75 96 30 07/16/17 02:14 75 23 95 BiPAP/CPAP 30 07/16/17 00:17 36.8 79 21 146/57 (86) 97 BiPAP 07/16/17 00:00 98 BiPAP 30 07/15/17 21:53 36.8 74 24 113/40 96 BiPAP 07/15/17 21:51 80 96 30 07/15/17 20:49 84 22 100/41 94 Humidified Oxygen 4.0 07/15/17 19:24 73 24 135/61 100 BiPAP 07/15/17 19:08 70 97 30 07/15/17 19:07 70 36 97 BiPAP/CPAP 30 07/15/17 17:06 36.7 81 18 138/70 98 Nasal Cannula 4.0 General Appearance: + mild distress (due to dyspnea) Head: atraumatic, + pertinent finding (temporal muscle wasting) Eyes: PERRL, EOMI Neck: no adenopathy Respiratory/Chest: + pertinent finding (comfortable on CPAP therapy. No crackles or wheezing) Cardiovascular: regular rate, rhythm Abdomen/GI: normal bowel sounds, non tender, soft Extremities/Musculoskelatal: no pedal edema Neurologic/Psych: alert, oriented x 3 Laboratory Results Last 24 Hours Test 07/15/17 18:00 07/15/17 19:17 07/15/17 20:08 07/15/17 21:40 White Blood Count 7.94 K/uL Red Blood Count 3.45 M/uL Hemoglobin 10.8 g/dL Hematocrit 34.3 % Mean Corpuscular Volume 99.4 fL Mean Corpuscular Hemoglobin 31.3 pg Mean Corpuscular Hemoglobin Concent 31.5 g/dl Platelet Count 152 K/uL Mean Platelet Volume 9.9 fL Neutrophils (%) (Auto) 68.6 % Lymphocytes (%) (Auto) 14.5 % Monocytes (%) (Auto) 10.7 % Eosinophils (%) (Auto) 5.4 % Basophils (%) (Auto) 0.5 % Neutrophils # (Auto) 5.45 K/uL Lymphocytes # (Auto) 1.15 K/uL Monocytes # (Auto) 0.85 K/uL Eosinophils # (Auto) 0.43 K/uL Basophils # (Auto) 0.04 K/uL RDW Standard Deviation 60.8 fL RDW Coefficient of Variation 16.7 % Immature Granulocyte % (Auto) 0.3 % Immature Granulocyte # (Auto) 0.02 K/uL Prothrombin Time 24.7 SECONDS Prothromb Time International Ratio 2.2 Sodium Level 135 mmol/L Potassium Level 4.3 mmol/L Chloride Level 96 mmol/L Carbon Dioxide Level 32 mmol/L Anion Gap 7.0 mmol/L Blood Urea Nitrogen 35 mg/dl Creatinine 4.49 mg/dl Estimated GFR () 9.6 Estimated GFR (Non- 8.3 BUN/Creatinine Ratio 7.9 Random Glucose 115 mg/dl Calcium Level 8.6 mg/dl Phosphorus Level 4.4 mg/dl Magnesium Level 2.8 mg/dl Total Bilirubin 0.7 mg/dl Direct Bilirubin 0.2 mg/dl Aspartate Amino Transf (AST/SGOT) 16 U/L Alanine Aminotransferase (ALT/SGPT) 10 U/L Alkaline Phosphatase 99 U/L Troponin I 0.057 ng/ml Total Protein 7.4 gm/dl Albumin 2.4 gm/dl Lipase 101 U/L Venous Blood pH 7.42 Venous Blood Partial Pressure CO2 49 mmHg Venous Blood Partial Pressure O2 49 mmHg Venous Blood HCO3 31 mmol/L Venous Blood Oxygen Saturation 81.3 % Venous Blood Base Excess 5.4 mEq/L Lactic Acid Level 1.0 mmol/L Influenza Type A (RT-PCR) Neg for Influ A Influenza Type A Antigen Neg for Influ A Influenza Type B Antigen Neg for Influ B Influenza Type B (RT-PCR) Neg for Influ B Test 07/16/17 05:20 07/16/17 06:00 White Blood Count 8.38 K/uL Red Blood Count 3.18 M/uL Hemoglobin 9.8 g/dL Hematocrit 31.4 % Mean Corpuscular Volume 98.7 fL Mean Corpuscular Hemoglobin 30.8 pg Mean Corpuscular Hemoglobin Concent 31.2 g/dl Platelet Count 154 K/uL Mean Platelet Volume 10.1 fL Neutrophils (%) (Auto) 69.4 % Lymphocytes (%) (Auto) 12.6 % Monocytes (%) (Auto) 11.3 % Eosinophils (%) (Auto) 6.1 % Basophils (%) (Auto) 0.4 % Neutrophils # (Auto) 5.81 K/uL Lymphocytes # (Auto) 1.06 K/uL Monocytes # (Auto) 0.95 K/uL Eosinophils # (Auto) 0.51 K/uL Basophils # (Auto) 0.03 K/uL RDW Standard Deviation 60.0 fL RDW Coefficient of Variation 16.5 % Immature Granulocyte % (Auto) 0.2 % Immature Granulocyte # (Auto) 0.02 K/uL Prothrombin Time 26.1 SECONDS Prothromb Time International Ratio 2.4 Sodium Level 135 mmol/L Potassium Level 4.6 mmol/L Chloride Level 97 mmol/L Carbon Dioxide Level 28 mmol/L Anion Gap 10.0 mmol/L Blood Urea Nitrogen 38 mg/dl Creatinine 4.80 mg/dl Est Creatinine Clear Calc Drug Dose 8.2 ml/min Estimated GFR () 8.9 Estimated GFR (Non- 7.7 BUN/Creatinine Ratio 8.0 Random Glucose 83 mg/dl Calcium Level 8.4 mg/dl Troponin I 0.052 ng/ml Urine Color DK YELLOW Urine Appearance CLOUDY Urine pH 5.0 Urine Specific [place] 1.024 Urine Protein 1+ Urine Glucose (UA) NEG Urine Ketones NEG Urine Occult Blood TRACE Urine Nitrite NEG Urine Bilirubin NEG Urine Urobilinogen NEG Urine Leukocyte Esterase SMALL Urine WBC (Auto) >30 /hpf Urine RBC (Auto) 0-4 /hpf Urine Hyaline Casts (Auto) 1-5 /lpf Urine Epithelial Cells (Auto) >30 /lpf Urine Bacteria (Auto) NEG Urine Yeast (Auto) BUD W/ HYPHAE Impression (1) Hypoxia (2) ESRD (end stage renal disease) on dialysis (3) Bronchopneumonia (4) Anemia (5) Aortic stenosis (6) Atrial fibrillation (7) Coronary artery disease (8) Loosening of prosthetic hip Ms. Rahman was admitted with hypoxemia. She has a recent h/o LLL pneumonia. She presented w/ a 3 day h/o cough productive of yellow sputum and progressive dyspnea. CXR revealed a small stable L pleural effusion. There were no infiltrates. Patient has been compliant w/ her MWF HD schedule. She is only 1 kg above her dry weight. Clinically suspect that her dyspnea is related to recurrent bronchopneumonia Recommendations END STAGE RENAL DISEASE: -- HD today. Will challenge EDW -- HD orders entered into EMR and HD RN notified HYPERTENSION: -- Blood pressure is currently controlled. Will monitor ANEMIA: -- Will provide RANJAN w/ dialysis today ID: -- Patient is currently on Levaquin, Cefipime and Solumedrol -- Consider reducing Levaquin to 250 mg IV q 48 hrs and Cefipime to 250 mg IV daily to adjust for ESRD. Recommend consultation w/ pharmacy for renal dosing of all medications. -- Await culture results -- Await Pulmonology & ID input
--- NOTE | 2017-07-16 16:12 | Pulmonary Consultation ---
History General Date of Service: Jul 16, 2017. Stated Complaint: Acute Respiratory Failure With Hypoxia; Hypoxia HPI Patient is an 87 yo [address] to [facility] who presented to the ED with concerns of increasing SOB prior to admission. The patient has history of ESRD on dialysis , MD (multiple) s/p CABG 1996, Paroxysmal Afib, moderate-severe , moderate MR, ischemic cardiomyopathy, CAD, HTN, and DM2. She was initially complaining of yellow sputum production, orthopnea, and increasing SOB. Patient did previously have nocturnal pulse oximetry study completed as outpatient in April 2017 at which time it did not appear that she would benefit from nighttime oxygen. PFTs completed in March 2015 showed normal spirometry with no improvement after inhaled bronchodilator, reduction in ERV due to obesity, and severe reduction in DLCO with mild reduction in DL/VA. PFTs: PRE POST FVC 2.34/83% 2.31/82% FEV1 1.88/93% 1.88/93% FEV1/FVC 80% 81% TLC 4.58/86% DLCO 37% DL/VA 74% Patient states that she has had increasing SOB x 1 week. She was admitted for concerns of pneumonia. She had a chest X-Ray on 06/27 which showed a small left and trace right pleural effusion, possible pulmonary arterial HTN, and cardiomegaly with interstitial coarsening. Chest X-Ray on 07/05 showed left pleural effusion and moderate congestive heart failure. CXR from current admission showed slight improvement in left pleural effusion with bibasilar opacities suggesting atelectasis and persistent pulmonary vascular congestion with interstitial coarsening. These images were all viewed and compared by me today. It appears that her pleural effusion is similar in size, but possibly very slightly decreased. Labs upon admission: WBC 7.94, Hgb 10.8, Creatinine 4.49/BUN 35, Serum Bicarb 32, Chloride 96, Sodium 135, and Potassium 4.3. Troponin mildly elevated at 0.057. Urine culture, blood cultures, and sputum culture pending. MRSA swab negative. VBG: PH 7.42 pCO2 49 pO2 49 HCO3 31 Patient is currently on Levaquin 500 mg Q 48 h, Cefepime 500 mg Q24h, Heparin, SoluMedrol 40 mg Q6h, Plavix, Mucinex, & Duoneb. She is chronically on O2 at home, and is currently on BiPAP due to discomfort on nasal cannula upon admission. Historian: patient Onset: last week Severity: moderate Complaint Status: persistent Review of Systems Constitutional: denies: chills, fever Eyes: denies: blurred vision ENT: denies: loss of hearing Cardiovascular: reports: edema, denies: chest pain, chest pressure, chest tightness Respiratory: reports: cough, shortness of breath, wheezing, sputum production, [place] Gastrointestinal: denies: constipation, diarrhea Genitourinary - Female: denies: hematuria All Other Symptoms All Other Systems: Reviewed and Negative Past Medical History Past Medical History: Medical Problems: (1) Ac Myocrd Infrct,Oth Inferior Wall,Subseq Epis Car (2) Acute kidney injury (3) Anemia (4) Aortic stenosis (5) Aortocoronary Bypass (6) Atrial fibrillation (7) Atrial fibrillation (8) Beta-hemolytic group B streptococcal sepsis (9) Bronchopneumonia (10) Cellulitis (11) Cellulitis of right lower extremity without foot (12) CHF exacerbation (13) Chronic Kidney Disease, Stage Iii (Moderate) (14) Chronic kidney disease, stage IV (severe) (15) Chronic kidney disease, stage V (16) Coronary artery disease (17) Coronary Atherosclerosis Of [place] Coronary Vessel (18) Diab Qiana Wo Compl, Type Ii Or Unspec Type, Not Uncntrld (19) Diabetes (20) DVT (deep venous thrombosis) (21) Dyspnea (22) 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 (23) ESRD (end stage renal disease) on dialysis (24) History of pulmonary embolism (25) Hypertension (26) Hypertension Nos (27) Hypotension (28) Knee Joint Replacement Status (29) Leukocytosis (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 (31) Moderate aortic stenosis (32) New onset atrial fibrillation (33) NSTEMI (non-ST elevated myocardial infarction) (34) NSTEMI (non-ST elevated myocardial infarction) (35) Old Myocardial Infarct (36) Percutaneous Translum Coron Angioplasty Status (37) Peripheral vascular disease (38) Pneumonia, Organism Nos (39) Positive blood culture (40) Prolonged Q-T interval on ECG (41) Pulmonary embolism (42) Pure Hypercholesterolem (43) Rectal bleeding (44) Right hip pain (45) Sepsis due to infected intravenous catheter (46) Shortness of breath (47) Urin Tract Infection Nos Past Medical History: coronary artery disease, diabetes, high cholesterol, hypertension, kidney stones, renal disease Past Surgical History: orthopedic surgery, other Family History Asthma Cancer SISTER (Breast cancer) Chronic kidney disease MOTHER Diabetes mellitus FATHER Heart disease FATHER Hypertension FATHER MOTHER Kidney disease Kidney stones Stroke Parent: Heart Disease, Hypertension Social History Hx Tobacco Use In Past Year?: No Smoking Status: Never Smoker Alcohol: never Marital status: Housing status: lives with family Occupational Status: retired Immunizations History of Influenza Vaccine: Yes Influenza Vaccine Date: Apr 17, 2012 History of Tetanus Vaccine?: Yes Tetanus Immunization Date: Dec 16, 2006 History of Pneumococcal: Yes Pneumococcal Date: Dec 17, 2007 History of Hepatitis B Vaccine: No Date Of Other Immunizations: May 18, 2012 History of MDRO History of MDRO: No Allergies Coded Allergies: No Known Allergies (Unverified , 04/20/17) Current Medications Reported Home Medications Medications Dose Route/Sig Max Daily Dose Days Date Category Azithromycin 250 Mg Tab 250 Mg PO DIRECTED 07/15/17 Reported Levothyroxine Sodium 75 Mcg Tab 75 Mcg PO QAM 07/15/17 Reported Clopidogrel (Clopidogrel Bisulfate) 75 Mg Tab 75 Mg PO QPM 06/27/17 Reported Warfarin Sodium 2 Mg Tab 2 Mg PO QPM 06/27/17 Reported Hydrocodone/Acetaminophen 5-325 mg (Acetaminophen/Hydrocodone Bitart) 1 Ea Tab 1 Tab PO Q6 06/27/17 Reported Roxicodone Ir (Oxycodone HCl) 5 Mg Tab 1-2 Tab PO Q4H PRN 06/27/17 Reported Renagel (Sevelamer HCl) 800 Mg Tab 800 Mg PO TIDM 06/27/17 Reported Duoneb (Ipratropium-Albuterol) 3 Ml Nebu 1 Treatment INH Q4H PRN 03/14/17 Reported Miralax (Polyethylene Glycol 3350) 1 Pow Pow 17 Gm PO AMPM 03/14/17 Reported Renal Multivitamin Formul (Multiple Vitamin) 1 Tab Tab 2 Tabs PO QAM 01/11/17 Reported Colon Formula (Nutritional Supplements) 1 Cap Cap 1 Cap PO QAM 01/11/17 Reported Protonix (Pantoprazole Sodium) 40 Mg Tab 40 Mg PO QAM 10/10/16 Reported Stool Softener (Sennosides-Docusate Sodium) 1 Tab Tab 1 Tab PO BID 09/04/16 Reported Cordarone (Amiodarone Hcl) 200 Mg Tab 200 Mg PO QAM 04/03/16 Reported Crestor (Rosuvastatin Calcium) 10 Mg Tab 10 Mg PO HS 10/11/15 Reported Zyloprim (Allopurinol) 100 Mg Tab 50 Mg PO QAM 02/03/15 Reported Physical Physical Exam Vital Signs: Date Time Temp Pulse Resp B/P (MAP) Pulse Ox O2 Delivery O2 Flow Rate FiO2 07/16/17 08:00 94 Nasal Cannula 4.0 30 BiPAP 07/16/17 07:31 36.5 76 30 122/62 (82) 94 Nasal Cannula 3.0 07/16/17 06:54 63 34 91 BiPAP/CPAP 30 07/16/17 04:21 36.8 68 22 131/64 (86) 96 BiPAP 07/16/17 04:00 95 BiPAP 30 07/16/17 02:16 75 96 30 07/16/17 02:14 75 23 95 BiPAP/CPAP 30 07/16/17 00:17 36.8 79 21 146/57 (86) 97 BiPAP 07/16/17 00:00 98 BiPAP 30 07/15/17 21:53 36.8 74 24 113/40 96 BiPAP 07/15/17 21:51 80 96 30 07/15/17 20:49 84 22 100/41 94 Humidified Oxygen 4.0 07/15/17 19:24 73 24 135/61 100 BiPAP 07/15/17 19:08 70 97 30 07/15/17 19:07 70 36 97 BiPAP/CPAP 30 07/15/17 17:06 36.7 81 18 138/70 98 Nasal Cannula 4.0 General Appearance: WD/WN, NO APPARENT DISTRESS Head: NORMOCEPHALIC, ATRAUMATIC Eyes: NO DISCHARGE, EOMI Neck: TRACHEA MIDLINE, NO STRIDOR, SUPPLE Respiratory: BREATH SOUNDS NORMAL, NO RESPIRATORY DISTRESS, wheezing (very slight wheezing throughout right lung), other (BiPAP in place) Cardiovasular: REGULAR RATE/RHYTHM, systolic murmur Abdomen: NORMAL BOWEL SOUNDS Lower Extremities: edema (trace edema b/l LE) Neuro: ALERT Psychiatric: NORMAL AFFECT Diagnostics Labs Results Past 24 Hours Test 07/15/17 18:00 07/15/17 19:17 07/15/17 20:08 07/15/17 21:40 Range/Units White Blood Count 7.94 4.8-10.8 K/uL Red Blood Count 3.45 4.2-5.4 M/uL Hemoglobin 10.8 12.0-16.0 g/dL Hematocrit 34.3 37-47 % Mean Corpuscular Volume 99.4 80-100 fL Mean Corpuscular Hemoglobin 31.3 25-34 pg Mean Corpuscular Hemoglobin Concent 31.5 32-36 g/dl Platelet Count 152 130-400 K/uL Mean Platelet Volume 9.9 7.4-10.4 fL Neutrophils (%) (Auto) 68.6 % Lymphocytes (%) (Auto) 14.5 % Monocytes (%) (Auto) 10.7 % Eosinophils (%) (Auto) 5.4 % Basophils (%) (Auto) 0.5 % Neutrophils # (Auto) 5.45 1.4-6.5 K/uL Lymphocytes # (Auto) 1.15 1.2-3.4 K/uL Monocytes # (Auto) 0.85 0.11-0.59 K/uL Eosinophils # (Auto) 0.43 0-0.5 K/uL Basophils # (Auto) 0.04 0-0.2 K/uL RDW Standard Deviation 60.8 36.4-46.3 fL RDW Coefficient of Variation 16.7 11.5-14.5 % Immature Granulocyte % (Auto) 0.3 % Immature Granulocyte # (Auto) 0.02 0.00-0.02 K/uL Prothrombin Time 24.7 9.0-12.0 SECONDS Prothromb Time International Ratio 2.2 0.9-1.1 Sodium Level 135 136-145 mmol/L Potassium Level 4.3 3.5-5.1 mmol/L Chloride Level 96 98-107 mmol/L Carbon Dioxide Level 32 21-32 mmol/L Anion Gap 7.0 3-11 mmol/L Blood Urea Nitrogen 35 7-18 mg/dl Creatinine 4.49 0.60-1.20 mg/dl Estimated GFR () 9.6 Estimated GFR (Non- 8.3 BUN/Creatinine Ratio 7.9 10-20 Random Glucose 115 70-99 mg/dl Calcium Level 8.6 8.5-10.1 mg/dl Phosphorus Level 4.4 2.5-4.9 mg/dl Magnesium Level 2.8 1.8-2.4 mg/dl Total Bilirubin 0.7 0.2-1 mg/dl Direct Bilirubin 0.2 0-0.2 mg/dl Aspartate Amino Transf (AST/SGOT) 16 15-37 U/L Alanine Aminotransferase (ALT/SGPT) 10 12-78 U/L Alkaline Phosphatase 99 45-117 U/L Troponin I 0.057 0-0.045 ng/ml Total Protein 7.4 6.4-8.2 gm/dl Albumin 2.4 3.4-5.0 gm/dl Lipase 101 73-393 U/L Venous Blood pH 7.42 7.36-7.41 Venous Blood Partial Pressure CO2 49 38.0-50.0 mmHg Venous Blood Partial Pressure O2 49 mmHg Venous Blood HCO3 31 mmol/L Venous Blood Oxygen Saturation 81.3 % Venous Blood Base Excess 5.4 mEq/L Lactic Acid Level 1.0 0.4-2.0 mmol/L Influenza Type A (RT-PCR) Neg for Influ A NEG Influenza Type A Antigen Neg for Influ A NEG Influenza Type B Antigen Neg for Influ B NEG Influenza Type B (RT-PCR) Neg for Influ B NEG Test 07/16/17 05:20 07/16/17 06:00 Range/Units White Blood Count 8.38 4.8-10.8 K/uL Red Blood Count 3.18 4.2-5.4 M/uL Hemoglobin 9.8 12.0-16.0 g/dL Hematocrit 31.4 37-47 % Mean Corpuscular Volume 98.7 80-100 fL Mean Corpuscular Hemoglobin 30.8 25-34 pg Mean Corpuscular Hemoglobin Concent 31.2 32-36 g/dl Platelet Count 154 130-400 K/uL Mean Platelet Volume 10.1 7.4-10.4 fL Neutrophils (%) (Auto) 69.4 % Lymphocytes (%) (Auto) 12.6 % Monocytes (%) (Auto) 11.3 % Eosinophils (%) (Auto) 6.1 % Basophils (%) (Auto) 0.4 % Neutrophils # (Auto) 5.81 1.4-6.5 K/uL Lymphocytes # (Auto) 1.06 1.2-3.4 K/uL Monocytes # (Auto) 0.95 0.11-0.59 K/uL Eosinophils # (Auto) 0.51 0-0.5 K/uL Basophils # (Auto) 0.03 0-0.2 K/uL RDW Standard Deviation 60.0 36.4-46.3 fL RDW Coefficient of Variation 16.5 11.5-14.5 % Immature Granulocyte % (Auto) 0.2 % Immature Granulocyte # (Auto) 0.02 0.00-0.02 K/uL Prothrombin Time 26.1 9.0-12.0 SECONDS Prothromb Time International Ratio 2.4 0.9-1.1 Sodium Level 135 136-145 mmol/L Potassium Level 4.6 3.5-5.1 mmol/L Chloride Level 97 98-107 mmol/L Carbon Dioxide Level 28 21-32 mmol/L Anion Gap 10.0 3-11 mmol/L Blood Urea Nitrogen 38 7-18 mg/dl Creatinine 4.80 0.60-1.20 mg/dl Est Creatinine Clear Calc Drug Dose 8.2 ml/min Estimated GFR () 8.9 Estimated GFR (Non- 7.7 BUN/Creatinine Ratio 8.0 10-20 Random Glucose 83 70-99 mg/dl Calcium Level 8.4 8.5-10.1 mg/dl Troponin I 0.052 0-0.045 ng/ml Urine Color DK YELLOW Urine Appearance CLOUDY CLEAR Urine pH 5.0 4.5-7.5 Urine Specific [place] 1.024 1.000-1.030 Urine Protein 1+ NEG Urine Glucose (UA) NEG NEG Urine Ketones NEG NEG Urine Occult Blood TRACE NEG Urine Nitrite NEG NEG Urine Bilirubin NEG NEG Urine Urobilinogen NEG NEG Urine Leukocyte Esterase SMALL NEG Urine WBC (Auto) >30 0-5 /hpf Urine RBC (Auto) 0-4 0-4 /hpf Urine Hyaline Casts (Auto) 1-5 0-5 /lpf Urine Epithelial Cells (Auto) >30 0-5 /lpf Urine Bacteria (Auto) NEG NEG Urine Yeast (Auto) BUD W/ HYPHAE NONE PRSENT Microbiology Results 07/15/17 Blood Culture, Received Pending 07/15/17 Blood Culture, Received Pending 07/15/17 MRSA DNA Surveillance Screen - Final, Complete Specimen Negative for MRSA by DNA Probe 07/16/17 Gram Stain, Received Pending 07/16/17 Sputum Culture, Received Pending 07/16/17 Urine Culture, Received Pending Diagnostic Radiology Thoracic Ultrasound performed during exam today as well. Noted: Left pleural effusion. Many B Lines noted on right anterior thoracic ultrasound. CHEST ONE VIEW PORTABLE HISTORY: 87 years-old Female ABDOMINAL PAIN/GI acute generalized abdominal pain COMPARISON: Chest radiograph 07/25/2017 TECHNIQUE: Portable upright AP view of the chest FINDINGS: Dual lumen left internal jugular hemodialysis catheter is unchanged. There is atherosclerosis and tortuosity of the thoracic aorta. Prior median sternotomy. Moderate cardiomegaly is unchanged. There is pulmonary vascular congestion with coarsened interstitial opacities. There is no pneumothorax. Decreased size of small left pleural effusion. Chronic blunting of the right costophrenic angle. Subsegmental bibasilar opacities persist. Degenerative changes are seen throughout the shoulders and spine. IMPRESSION: 1. Cardiomegaly with persistent pulmonary vascular congestion and interstitial coarsening. 2. Decreased size of small left pleural effusion with bibasilar opacities suggesting atelectasis. EKG Sinus rhythm with 1st degree AV block, PVCs, left axis deviation Impression Assessment and Plan Dyspnea Chronic respiratory failure with O2 dependence- ? acute on chronic respiratory failure secondary to volume overload Small left pleural effusion ESRD on dialysis ?CHF exacerbation BiPAP can continue to be used for afterload reduction PRN for worsening symptoms. Supplement O2 via nasal cannula otherwise to keep SaO2 >92%. Will order repeat Echocardiogram at this time to check for motion abnormalities or changes in systolic/diastolic function. Completed thoracic ultrasound during exam. Noted left pleural effusion and signs of possible fluid overload. Will consider thoracentesis. Could do inpatient versus outpatient. Patient would ideally be off of anticoagulation for 5 days prior. Continue empiric abx pending culture results. Will likely discontinue if cultures are negative and procalcitonin negative. Continue Duonebs Taper steroids. Will change to PO Prednisone 40 mg daily tomorrow and taper from there. Concern for worsening volume overload with systemic steroids. Pulm will follow. Patient was seen and examined. Ultrasound was performed at the bedside. Agree with above plan. This clinical scenario is more sick suggestive of volume overload.
[2017-07-16] MEDS: CEFEPIME IV 500 MG in SYRINGE 0 ML IV SCH (16:49)
--- NOTE | 2017-07-16 17:51 | ECHOCARDIOGRAM REPORT ---
*NOTICE TO RECEIVING CONSTITUTION PARTY AGENCY This information is strictly Confidential and protected under [place] law. [place] law prohibits you from making any further disclosure of this information unless further disclosure is expressly permitted by the written consent of the person to whom it pertains or is authorized by law. A general authorization for the release of medical or other information is not sufficient for this purpose. Hospital accepts no responsibility if the information is made available to any other person, INCLUDING THE PATIENT. Interpretation Summary * Name: ANANTH SIMPSON Study Date: 07/16/2017 04:26 PM BP: 127/61 mmHg * Patient Location: .2E\S\E203\S\1 HR: 73 * : 1930 (M/d/yyyy) Gender: Female Height: 64 in * Age: 87 yrs Ethnicity: CA Weight: 158 lb * Ordering Physician: Franca Vanegas * Referring Physician: Self, Referred * Performed By: Sadia Kim RDCS * * Reason For Study: Congestive Heart Failure * BSA: 1.8 m2 * -- Conclusions -- * 1. Normal left ventricular size with low-normal systolic function. Estimated EF 50-55%. Hypokinesis of the mid inferolateral, base to mid anteroseptum, mid to distal inferior wall segments. Akinesis of the basal septum and basal inferior wall. Septal motion consistent with bundle-branch block. Mild concentric left ventricular hypertrophy. Type 2 diastolic dysfunction. * 2. Grossly normal right ventricular size with mildly reduced systolic function. * 3. The left atrium is severely dilated. * 4. Moderate aortic stenosis. * 5. Restricted posterior mitral leaflet with eccentric, moderate regurgitation. * 6. Pleural effusion. * 7. Mildly elevated right ventricular systolic pressure; estimated RVSP 46 mmHg. * 8. Compared to prior study on 03/14/2017, LV systolic function has improved. Procedure Details * A complete two-dimensional transthoracic echocardiogram was performed (2D, M-mode, Doppler and color flow Doppler). Left Ventricle * Normal left ventricular size with low-normal systolic function. Estimated EF 50-55%. Hypokinesis of the mid inferolateral, base to mid anteroseptum, mid to distal inferior wall segments. Akinesis of the basal septum and basal inferior wall. Septal motion consistent with bundle-branch block. Mild concentric left ventricular hypertrophy. Type 2 diastolic dysfunction. * Ejection Fraction = 50-55%. Right Ventricle * Grossly normal right ventricular size with mildly reduced systolic function. * The right ventricular systolic function is reduced as assessed by tricuspid annular plane systolic excursion (TAPSE) (TAPSE <1.6 cm). Atria * The left atrium is severely dilated. * Right atrial size is normal. * There is no evidence of atrial septal defect, but resolution does not allow assessment for a patent foramen ovale. Mitral Valve * There is moderate mitral annular calcification. * There is no mitral valve stenosis. * Restricted posterior mitral leaflet with moderate regurgitation. Tricuspid Valve * The tricuspid valve is not well visualized, but is grossly normal. * There is no tricuspid stenosis. * There is mild tricuspid regurgitation. Aortic Valve * The aortic valve is trileaflet. * Dimensionless index 0.27. * Trace aortic regurgitation. * Moderate aortic stenosis. Pulmonic Valve * The pulmonary valve is inadequately visualized, but the Doppler data is adequate for interpretation. * There is no pulmonic valvular stenosis. * Mild to moderate pulmonic valvular regurgitation. Great Vessels * The aortic root is normal size. Pericardium/Pleural * There is no pericardial effusion. * Pleural effusion. Great Vessels * Normal IVC size with reduced inspiratory collapse. MMode 2D Measurements and Calculations IVSd 1.2 cm IVSs 1.6 cm LVIDd 4.6 cm LVIDs 3.5 cm LVPWd 1.3 cm LVPWs 1.6 cm IVS/LVPW 0.95 FS 25.0 % EDV(Teich) 99.5 ml ESV(Teich) 50.3 ml EF(Teich) 49.4 % EDV(cubed) 100.1 ml ESV(cubed) 42.3 ml EF(cubed) 57.8 % % IVS thick 32.1 % % LVPW thick 25.5 % LV mass(C)d 219.3 grams LV mass(C)dI 123.9 grams/m\S\2 LV mass(C)s 214.4 grams LV mass(C)sI 121.1 grams/m\S\2 SV(Teich) 49.2 ml SI(Teich) 27.8 ml/m\S\2 SV(cubed) 57.8 ml SI(cubed) 32.7 ml/m\S\2 EPSS 1.1 cm Ao root diam 3.2 cm Ao root area 8.0 cm\S\2 ACS 1.2 cm LA dimension 4.7 cm LA/Ao 1.5 LVOT diam 2.3 cm LVOT area 4.0 cm\S\2 LVAd ap4 40.3 cm\S\2 LVLd ap4 9.1 cm EDV(MOD-sp4) 153.4 ml EDV(sp4-el) 151.8 ml LVAs ap4 25.4 cm\S\2 LVLs ap4 8.0 cm ESV(MOD-sp4) 68.2 ml ESV(sp4-el) 68.3 ml EF(MOD-sp4) 55.6 % EF(sp4-el) 55.0 % SV(MOD-sp4) 85.2 ml SI(MOD-sp4) 48.1 ml/m\S\2 SV(sp4-el) 83.5 ml SI(sp4-el) 47.2 ml/m\S\2 Doppler Measurements and Calculations MV E max david 147.8 cm/sec MV A max david 118.6 cm/sec MV E/A 1.2 MV V2 max 161.6 cm/sec MV max PG 10.4 mmHg MV V2 mean 96.0 cm/sec MV mean PG 4.2 mmHg MV V2 VTI 50.7 cm MVA(VTI) 1.7 cm\S\2 MV P1/2t max dvaid 154.1 cm/sec MV P1/2t 87.1 msec MVA(P1/2t) 2.5 cm\S\2 MV dec slope 518.0 cm/sec\S\2 MV dec time 0.19 sec Ao V2 max 337.9 cm/sec Ao max PG 45.7 mmHg Ao max PG (full) 42.5 mmHg Ao V2 mean 243.8 cm/sec Ao mean PG 26.5 mmHg Ao mean PG (full) 24.7 mmHg Ao V2 VTI 86.3 cm ROCIO(I,A) 0.99 cm\S\2 ROCIO(I,D) 0.99 cm\S\2 ROCIO(V,A) 1.1 cm\S\2 ROCIO(V,D) 1.1 cm\S\2 AI max david 339.0 cm/sec AI max PG 46.0 mmHg AI dec slope 334.5 cm/sec\S\2 AI P1/2t 296.8 msec LV V1 max PG 3.3 mmHg LV V1 mean PG 1.8 mmHg LV V1 max 90.2 cm/sec LV V1 mean 62.3 cm/sec LV V1 VTI 21.3 cm MR max david 453.8 cm/sec MR max PG 82.4 mmHg SV(Ao) 686.9 ml SI(Ao) 388.2 ml/m\S\2 SV(LVOT) 85.3 ml SI(LVOT) 48.2 ml/m\S\2 PA V2 max 105.9 cm/sec PA max PG 4.5 mmHg PI max david 258.9 cm/sec PI max PG 26.8 mmHg PI dec slope 237.8 cm/sec\S\2 PI P1/2t 318.9 msec TR max david 308.9 cm/sec RVSP(TR) 46.2 mmHg RAP systole 8.0 mmHg
--- NOTE | 2017-07-16 18:29 | Family Medicine Progress Note ---
Progress Note Date of Service Jul 16, 2017. Subjective Pt evaluation today including: conversation w/ patient, physical exam, chart review, lab review, conversation w/ learning and development consultant, review of inpatient medication list Pain: none Patient was seen this morning at the bedside and was feeling short of breath at rest She had the BiPaP on and was still feeling short of breath She denied any other symptoms Constitutional: No fever, No chills, No sweats Respiratory: + shortness of breath, + dyspnea on exertion, No cough, No sputum, No wheezing Cardiovascular: No chest pain, No edema, No palpitations Abdomen: No pain, No nausea, No vomiting, No diarrhea Female : No dysuria, No urinary frequency Heme: No abnormal bleeding/bruising Medications Current Inpatient Medications Medications (Trade) Dose Ordered Sig/Janeth Route Start Time Stop Time Status Last Admin Dose Admin Acetaminophen (Tylenol Tab) 650 mg Q4H PRN PO 07/15/17 20:15 08/14/17 20:14 Ondansetron HCl (Zofran Inj) 4 mg Q6H PRN IV 07/15/17 20:15 08/14/17 20:14 Nitroglycerin (Nitrostat Tab) 0.4 mg UD PRN SL 07/15/17 20:15 08/14/17 20:14 Allopurinol (Zyloprim Tab) 50 mg QAM PO 07/16/17 09:00 08/15/17 08:59 07/16/17 07:42 50 MG Amiodarone HCl (Cordarone Tab) 200 mg QAM PO 07/16/17 09:00 08/15/17 08:59 07/16/17 07:42 200 MG Clopidogrel Bisulfate (plAVix TAB) 75 mg QPM PO 07/15/17 21:00 08/14/17 20:59 07/15/17 23:23 75 MG Levothyroxine Sodium (Synthroid Tab) 75 mcg DAILYBB PO 07/16/17 06:00 08/15/17 06:59 07/16/17 05:49 75 MCG Multivitamins (Multivitamin Tab) 2 tab QAM PO 07/16/17 09:00 08/15/17 08:59 07/16/17 07:41 2 TAB Oxycodone HCl (Roxicodone Immediate Rel Tab) Pain 5-8 - give 5mg Pain 9... Q4H PRN PO 07/15/17 20:15 07/29/17 20:14 Pantoprazole Sodium (Protonix Tab) 40 mg QAM PO 07/16/17 09:00 08/15/17 08:59 07/16/17 07:41 40 MG Rosuvastatin Calcium (Crestor Tab) 10 mg HS PO 07/15/17 21:00 08/14/17 20:59 07/15/17 23:22 10 MG Senna/Docusate Sodium (Senokot S Tab) 1 tab BID PO 07/15/17 21:00 08/14/17 20:59 07/16/17 07:41 1 TAB Sevelamer HCl (Renagel Tab) 800 mg TIDM PO 07/16/17 07:30 08/15/17 07:59 07/16/17 16:44 800 MG Warfarin Sodium (Coumadin Tab) 2 mg QPM PO 07/15/17 21:00 08/14/17 20:59 07/15/17 22:30 2 MG Polyethylene (Miralax Powder Packet) 17 gm BID PO 07/15/17 21:00 08/14/17 20:59 07/16/17 07:39 17 GM Guaifenesin (Mucinex Contr Rel Tab) 600 mg Q12 PO 07/15/17 21:00 08/14/17 20:59 07/16/17 07:41 600 MG Albuterol/ Ipratropium (Duoneb) 3 ml Q2H PRN INH 07/15/17 20:15 08/14/17 20:14 Albuterol/ Ipratropium (Duoneb) 3 ml Q4R INH 07/16/17 00:00 08/15/17 00:00 07/16/17 11:37 3 ML Cefepime HCl (Consult) 1 ea UD PRN N/A 07/15/17 21:45 08/14/17 21:44 Cefepime HCl 500 mg/Syringe 5.5 ml @ 5.5 mls/min Q24H IV 07/16/17 18:00 07/22/17 17:59 07/16/17 16:49 5.5 MLS/MIN Prednisone (PredniSONE TAB) 40 mg DAILY PO 07/16/17 17:00 08/15/17 16:59 07/16/17 17:48 40 MG Objective Vital Signs Date Time Temp Pulse Resp B/P (MAP) Pulse Ox O2 Delivery O2 Flow Rate FiO2 07/16/17 16:13 36.6 77 24 104/46 (65) 95 Nasal Cannula 07/16/17 14:27 36.7 75 125/54 (77) 07/16/17 14:15 77 131/57 07/16/17 14:00 73 127/61 07/16/17 13:45 75 124/49 07/16/17 13:30 69 117/49 07/16/17 13:15 72 114/44 07/16/17 13:00 70 105/58 07/16/17 12:45 70 121/51 07/16/17 12:30 70 125/50 07/16/17 12:15 70 116/56 07/16/17 12:00 94 Nasal Cannula 4.0 30 BiPAP 07/16/17 12:00 67 123/47 07/16/17 11:45 66 126/62 07/16/17 11:38 68 99 30 07/16/17 11:37 68 17 99 BiPAP/CPAP 30 07/16/17 11:30 65 122/50 07/16/17 11:15 67 118/50 07/16/17 11:14 36.9 66 16 120/51 (74) 98 BiPAP 30 07/16/17 11:00 66 117/51 07/16/17 10:45 67 112/74 07/16/17 10:30 66 120/51 07/16/17 10:03 36.9 70 120/51 (74) 07/16/17 08:00 94 Nasal Cannula 4.0 30 BiPAP 07/16/17 07:31 36.5 76 30 122/62 (82) 94 Nasal Cannula 3.0 07/16/17 06:54 63 34 91 BiPAP/CPAP 30 07/16/17 04:21 36.8 68 22 131/64 (86) 96 BiPAP 07/16/17 04:00 95 BiPAP 30 07/16/17 02:16 75 96 30 07/16/17 02:14 75 23 95 BiPAP/CPAP 30 07/16/17 00:17 36.8 79 21 146/57 (86) 97 BiPAP 07/16/17 00:00 98 BiPAP 30 07/15/17 21:53 36.8 74 24 113/40 96 BiPAP 07/15/17 21:51 80 96 30 07/15/17 20:49 84 22 100/41 94 Humidified Oxygen 4.0 07/15/17 19:24 73 24 135/61 100 BiPAP 07/15/17 19:08 70 97 30 07/15/17 19:07 70 36 97 BiPAP/CPAP 30 Physical Exam General Appearance: WD/WN, + mild distress, + pertinent finding (patient with BiPaP in place) ENT: hearing grossly normal Respiratory/Chest: + rhonchi (rhonchi and wheezing bilaterally) Cardiovascular: regular rate, rhythm, no JVD (JVD flat at the clavicle), + systolic murmur (3/6 with radiation to carotids) Abdomen: normal bowel sounds, non tender, soft Extremities: non-tender, no pedal edema, no calf tenderness Neurologic/Psychiatric: no motor/sensory deficits, alert, oriented x 3 Skin: normal color, warm/dry, no rash Laboratory Results Results Past 24 Hours Test 07/15/17 19:17 07/15/17 20:08 07/15/17 21:40 07/16/17 05:20 Range/Units Venous Blood pH 7.42 7.36-7.41 Venous Blood Partial Pressure CO2 49 38.0-50.0 mmHg Venous Blood Partial Pressure O2 49 mmHg Venous Blood HCO3 31 mmol/L Venous Blood Oxygen Saturation 81.3 % Venous Blood Base Excess 5.4 mEq/L Lactic Acid Level 1.0 0.4-2.0 mmol/L Influenza Type A (RT-PCR) Neg for Influ A NEG Influenza Type A Antigen Neg for Influ A NEG Influenza Type B Antigen Neg for Influ B NEG Influenza Type B (RT-PCR) Neg for Influ B NEG White Blood Count 8.38 4.8-10.8 K/uL Red Blood Count 3.18 4.2-5.4 M/uL Hemoglobin 9.8 12.0-16.0 g/dL Hematocrit 31.4 37-47 % Mean Corpuscular Volume 98.7 80-100 fL Mean Corpuscular Hemoglobin 30.8 25-34 pg Mean Corpuscular Hemoglobin Concent 31.2 32-36 g/dl Platelet Count 154 130-400 K/uL Mean Platelet Volume 10.1 7.4-10.4 fL Neutrophils (%) (Auto) 69.4 % Lymphocytes (%) (Auto) 12.6 % Monocytes (%) (Auto) 11.3 % Eosinophils (%) (Auto) 6.1 % Basophils (%) (Auto) 0.4 % Neutrophils # (Auto) 5.81 1.4-6.5 K/uL Lymphocytes # (Auto) 1.06 1.2-3.4 K/uL Monocytes # (Auto) 0.95 0.11-0.59 K/uL Eosinophils # (Auto) 0.51 0-0.5 K/uL Basophils # (Auto) 0.03 0-0.2 K/uL RDW Standard Deviation 60.0 36.4-46.3 fL RDW Coefficient of Variation 16.5 11.5-14.5 % Immature Granulocyte % (Auto) 0.2 % Immature Granulocyte # (Auto) 0.02 0.00-0.02 K/uL Prothrombin Time 26.1 9.0-12.0 SECONDS Prothromb Time International Ratio 2.4 0.9-1.1 Sodium Level 135 136-145 mmol/L Potassium Level 4.6 3.5-5.1 mmol/L Chloride Level 97 98-107 mmol/L Carbon Dioxide Level 28 21-32 mmol/L Anion Gap 10.0 3-11 mmol/L Blood Urea Nitrogen 38 7-18 mg/dl Creatinine 4.80 0.60-1.20 mg/dl Est Creatinine Clear Calc Drug Dose 8.2 ml/min Estimated GFR () 8.9 Estimated GFR (Non- 7.7 BUN/Creatinine Ratio 8.0 10-20 Random Glucose 83 70-99 mg/dl Calcium Level 8.4 8.5-10.1 mg/dl Troponin I 0.052 0-0.045 ng/ml Test 07/16/17 06:00 Range/Units Urine Color DK YELLOW Urine Appearance CLOUDY CLEAR Urine pH 5.0 4.5-7.5 Urine Specific [place] 1.024 1.000-1.030 Urine Protein 1+ NEG Urine Glucose (UA) NEG NEG Urine Ketones NEG NEG Urine Occult Blood TRACE NEG Urine Nitrite NEG NEG Urine Bilirubin NEG NEG Urine Urobilinogen NEG NEG Urine Leukocyte Esterase SMALL NEG Urine WBC (Auto) >30 0-5 /hpf Urine RBC (Auto) 0-4 0-4 /hpf Urine Hyaline Casts (Auto) 1-5 0-5 /lpf Urine Epithelial Cells (Auto) >30 0-5 /lpf Urine Bacteria (Auto) NEG NEG Urine Yeast (Auto) BUD W/ HYPHAE NONE PRSENT Microbiology Results 07/15/17 Blood Culture, Received Pending 07/15/17 Blood Culture, Received Pending 07/15/17 MRSA DNA Surveillance Screen - Final, Complete Specimen Negative for MRSA by DNA Probe 07/16/17 Gram Stain - Final, Resulted 07/16/17 Sputum Culture, Resulted Pending 07/16/17 Urine Culture, Received Pending Assessment and Plan 87 year old female with CAD, ESRD on dialysis, valvular disease and recent hospitalization with pneumonia presents with worsening shortness of breath over the past 2 days Acute hypoxic respiratory failure secondary to asthma exacerbation due to ? pneumonia/bronchitis - O2 to maintain sats > 92% - BiPAP 07/08 as required for comfort if patient feeling short of breath, discussed risks of pneumothorax with this. - incentive spirometry and flutter valve - continue duonebs for pulmonary toilet, continue Iv steroids 40mg q8 and transition to 40 mg PO tomorrow - unable to do CT with dye for possible concern of pul fibrosis - PFT from 2014 with markedly decreased DLCO Left pleural effusion - Pulmonary - will consider thoracentesis as inpatient vs outpatient, will need to be off anticoagulation for 5 days Possible hospital/healthcare acquired pneumonia - Cefepime + Levaquin - levaquin stopped due to prolonged qtc of 512 - procalcitonin ordered and will d/c AB in morning if procalcitonin negative - - rapid influenza neg 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 Consult nephrology Coronary Artery disease (s/p CABG 1996, stent to RCA 2006, with obstructed SVGs to the diagonal and ramus branches), Hx Multiple NSTEMIs and STEMI, Paroxysmal Atrial Fibrillation, 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 2.4 this morning GERD - continue pantoprazole 40mg PO daily Gout - Continue allopurinol 50mg PO daily Hypothyroidism - Continue levothyroxine 75 mcg PO daily Dispo - pt/ot ordered Code Status - Patient wants to be intubated for short term but does not want CPR Continued [facility] stay due to: multiple IV medications needed Discharge planning: uncertain Reviewed: Pt Seen/Exam by Me History breathing somewhat better but still coughing Constitutional: denies: fever Respiratory: positive: cough Cardiovascular: denies chest pain Gastrointestinal/Abdominal: negative: abdominal pain General Appearance: mild distress Respiratory: no respiratory distress, decreased breath sounds Cardiovascular: regular rate, rhythm Gastrointestinal: soft Neurologic/Psychiatric: alert, oriented x 3 Skin Characteristics: warm/dry Assessment/Plan Resident Physician Supervision Note: I independently interviewed and examined the patient and verified the archuleta history and physical, reviewed labs and image studies, discussed the case with the resident Dr. Collins and agree with the findings and care plan.
[2017-07-16] MEDS: ROSUVASTATIN CALCIUM 10 MG TAB PO SCH (20:38)
[2017-07-16] MEDS: WARFARIN SOD 2 MG TAB PO SCH (20:39)
[2017-07-16] MEDS: CLOPIDOGREL BISULFATE 75 MG TAB PO SCH (20:40)
[2017-07-16] MEDS ORDERED: METHYLPREDNISOLONE IV 40 MG in SYRINGE 0 ML IV SCH (22:00)
[2017-07-17] VITALS (15 sets, daily range): BP systolic 106–121; BP diastolic 45–61; PULSE 64–83; TEMP 36.4–37; O2SAT 94–100
[2017-07-17] MEDS: ALBUT/IPRATROP 3MG/0.5MG NEB 3 ML VIAL INH SCH ×6 (04:00→22:57)
[2017-07-17 05:58] LABS: HEMATOCRIT 33.7 % (37-47); MEAN CELL VOLUME 98.8 fL (80-100); MEAN CORPUSCULAR HEMOGLOBIN 30.8 pg (25-34); MEAN CORPUSCULAR HGB CONC 31.2 g/dl (32-36); MEAN PLATELET VOLUME 9.7 fL (7.4-10.4); PLATELET COUNT 165 K/uL (130-400); RED BLOOD COUNT 3.41 M/uL (4.2-5.4); WHITE BLOOD COUNT 3.62 K/uL (4.8-10.8)
[2017-07-17 06:05] LABS: INR 2.5 (0.9-1.1)
[2017-07-17] MEDS: LEVOTHYROXINE 75 MCG TAB PO SCH (06:19)
[2017-07-17 06:34] LABS: BUN/CREATININE RATIO 8.1 (10-20); CALCIUM 8.7 mg/dl (8.5-10.1); CREATININE 3.25 mg/dl (0.60-1.20); POTASSIUM 4.4 mmol/L (3.5-5.1)
[2017-07-17] MEDS: DOCUSATE SODIUM/SENNA 50/8.6MG TAB PO SCH ×2 (07:26→20:24)
[2017-07-17] MEDS: SEVELAMER HYDROCH 800 MG TAB PO SCH ×3 (07:26→17:35)
[2017-07-17] MEDS: AMIODARONE 200 MG TAB PO SCH (07:26)
[2017-07-17] MEDS: ALLOPURINOL 100 MG TAB PO SCH (07:26)
[2017-07-17] MEDS: PANTOprazole SOD 40 MG TAB PO SCH (07:27)
[2017-07-17] MEDS: POLYETHYLENE (MIRALAX) 17 GM PACK PO SCH ×2 (07:27→20:23)
[2017-07-17] MEDS: GUAIFENESIN 600 MG TABCR PO SCH ×2 (07:27→20:23)
[2017-07-17] MEDS: MULTIVITAMIN TAB PO SCH (07:27)
[2017-07-17 08:03] LABS: HEPATITIS B AB NEG
[2017-07-17] MEDS: ONDANSETRON INJ 2 MG/ML 2 ML VIAL IV PRN (08:31)
--- NOTE | 2017-07-17 10:44 | Nephrology Progress Note ---
Nephrology Progress Note Date of Service Jul 17, 2017. Chief Complaint ESRD requiring HD Subjective Ms. Rahman was seen & examined in the ICU this morning. She was sitting up in a chair breathing comfortably on O2 at 2 L / min NC. Ms. Rahman had 3 L UF removed w/ HD yesterday. She voices no new medical concerns. Review of Systems Constitutional: No fever Cardiovascular: No chest pain Respiratory: + dyspnea on exertion, No dyspnea at rest Abdomen: No pain, No nausea, No vomiting Extremities: No leg edema A complete review of systems was performed. Pertinent positives are noted above. All other systems are negative. Vital Signs Last 8 Hrs Date Time Temp Pulse Resp B/P (MAP) Pulse Ox O2 Delivery O2 Flow Rate FiO2 07/17/17 07:40 36.5 74 19 113/53 (73) 99 Nasal Cannula 2.0 07/17/17 07:03 74 16 99 Nasal Cannula 2.0 07/17/17 04:08 37.0 80 19 116/47 (70) 95 Nasal Cannula 2.0 07/17/17 04:00 Nasal Cannula 4.0 Last Recorded Weight Weight (Kilograms): 69.400 Physical Exam General Appearance: + thin Head: atraumatic (temporal muscle wasting) Eyes: PERRL, EOMI Neck: no adenopathy Respiratory/Chest: lungs clear, no respiratory distress Cardiovascular: regular rate, rhythm Abdomen/GI: normal bowel sounds, non tender, soft Extremities/Musculoskelatal: no calf tenderness, no pedal edema Neurologic/Psych: alert, oriented x 3 Family History Asthma Cancer SISTER (Breast cancer) Chronic kidney disease MOTHER Diabetes mellitus FATHER Heart disease FATHER Hypertension FATHER MOTHER Kidney disease Kidney stones Stroke Negative for CKD / ESRD Social History Smoking Status: Never smoker Drug Use: none Marital Status: Housing Status: lives with family Occupation: retired . Retired. Never a smoker. Laboratory Results Past 24 Hours 07/17/17 05:26 07/17/17 05:26 Test 07/17/17 05:26 Red Blood Count 3.41 M/uL (4.2-5.4) Mean Corpuscular Volume 98.8 fL (80-100) Mean Corpuscular Hemoglobin 30.8 pg (25-34) Mean Corpuscular Hemoglobin Concent 31.2 g/dl (32-36) RDW Standard Deviation 59.1 fL (36.4-46.3) RDW Coefficient of Variation 16.4 % (11.5-14.5) Mean Platelet Volume 9.7 fL (7.4-10.4) Prothrombin Time 28.0 SECONDS (9.0-12.0) Prothromb Time International Ratio 2.5 (0.9-1.1) Anion Gap 12.0 mmol/L (3-11) Est Creatinine Clear Calc Drug Dose 11.9 ml/min Estimated GFR () 14.2 Estimated GFR (Non- 12.3 BUN/Creatinine Ratio 8.1 (10-20) Calcium Level 8.7 mg/dl (8.5-10.1) Procalcitonin 0.75 ng/ml (0-0.5) Hepatitis B Surface Antigen NEG (NEG) Hepatitis B Surface Antibody NEG Allergies Coded Allergies: No Known Allergies (Unverified , 04/20/17) Medications Current Inpatient Medications Medications (Trade) Dose Ordered Sig/Janeth Route Start Time Stop Time Status Last Admin Dose Admin Acetaminophen (Tylenol Tab) 650 mg Q4H PRN PO 07/15/17 20:15 08/14/17 20:14 Ondansetron HCl (Zofran Inj) 4 mg Q6H PRN IV 07/15/17 20:15 08/14/17 20:14 07/17/17 08:31 4 MG Nitroglycerin (Nitrostat Tab) 0.4 mg UD PRN SL 07/15/17 20:15 08/14/17 20:14 Allopurinol (Zyloprim Tab) 50 mg QAM PO 07/16/17 09:00 08/15/17 08:59 07/17/17 07:26 50 MG Amiodarone HCl (Cordarone Tab) 200 mg QAM PO 07/16/17 09:00 08/15/17 08:59 07/17/17 07:26 200 MG Clopidogrel Bisulfate (plAVix TAB) 75 mg QPM PO 07/15/17 21:00 08/14/17 20:59 07/16/17 20:40 75 MG Levothyroxine Sodium (Synthroid Tab) 75 mcg DAILYBB PO 07/16/17 06:00 08/15/17 06:59 07/17/17 06:19 75 MCG Multivitamins (Multivitamin Tab) 2 tab QAM PO 07/16/17 09:00 08/15/17 08:59 07/17/17 07:27 2 TAB Oxycodone HCl (Roxicodone Immediate Rel Tab) Pain 5-8 - give 5mg Pain 9... Q4H PRN PO 07/15/17 20:15 07/29/17 20:14 Pantoprazole Sodium (Protonix Tab) 40 mg QAM PO 07/16/17 09:00 08/15/17 08:59 07/17/17 07:27 40 MG Rosuvastatin Calcium (Crestor Tab) 10 mg HS PO 07/15/17 21:00 08/14/17 20:59 07/16/17 20:38 10 MG Senna/Docusate Sodium (Senokot S Tab) 1 tab BID PO 07/15/17 21:00 08/14/17 20:59 07/17/17 07:26 1 TAB Sevelamer HCl (Renagel Tab) 800 mg TIDM PO 07/16/17 07:30 08/15/17 07:59 07/17/17 07:26 800 MG Warfarin Sodium (Coumadin Tab) 2 mg QPM PO 07/15/17 21:00 08/14/17 20:59 07/16/17 20:39 2 MG Polyethylene (Miralax Powder Packet) 17 gm BID PO 07/15/17 21:00 08/14/17 20:59 07/17/17 07:27 17 GM Guaifenesin (Mucinex Contr Rel Tab) 600 mg Q12 PO 07/15/17 21:00 08/14/17 20:59 07/17/17 07:27 600 MG Albuterol/ Ipratropium (Duoneb) 3 ml Q2H PRN INH 07/15/17 20:15 08/14/17 20:14 Albuterol/ Ipratropium (Duoneb) 3 ml Q4R INH 07/16/17 00:00 08/15/17 00:00 07/17/17 07:03 3 ML Prednisone (PredniSONE TAB) 40 mg DAILY PO 07/16/17 17:00 08/15/17 16:59 07/17/17 07:27 40 MG Impression (1) Hypoxia (2) ESRD (end stage renal disease) on dialysis (3) Bronchopneumonia (4) Anemia (5) Aortic stenosis (6) Atrial fibrillation (7) Coronary artery disease (8) Loosening of prosthetic hip Ms. Rahman was admitted with hypoxemia. She has a recent h/o LLL pneumonia. She presented w/ a 3 day h/o cough productive of yellow sputum and progressive dyspnea. CXR revealed a small stable L pleural effusion. There were no infiltrates. Patient has been compliant w/ her MWF HD schedule. She is only 1 kg above her dry weight. Clinically suspect that her dyspnea is related to recurrent bronchopneumonia Recommendations END STAGE RENAL DISEASE: -- 3 L UF removed w/ HD yesterday. Blood pressure is stable. Breathing is improved. Electrolyte balance is acceptable. No acute indication for HD this am. -- Will schedule next HD for am and attempt further UF -- Will order follow up CXR following dialysis and UF tomorrow -- Will consult Vascular Surgery to coordinate IJ THC removal prior to hospital discharge if possible HYPERTENSION: -- Blood pressure is currently controlled. Will monitor ANEMIA: -- Will provide RANJAN w/ dialysis tomorrow ID: -- Patient is currently on Levaquin, Cefipime and Solumedrol -- Antibiotics as per ID & Pulmonology consultants
--- NOTE | 2017-07-17 10:46 | Family Medicine Progress Note ---
Progress Note Date of Service Jul 17, 2017. Subjective Pt evaluation today including: conversation w/ patient, physical exam, chart review, lab review, conversation w/ home care consultant, review of inpatient medication list Pain: none PO Intake: good Voiding: no voiding problems Patient says she is feeling much better this morning She is no longer feeling short of breath at rest but is short of breath with ambulation She has been weaned back to her 2L of oxygen via nasal cannula Constitutional: No fever, No chills, No sweats, No fatigue Respiratory: + cough, + sputum, + dyspnea on exertion, No shortness of breath Cardiovascular: No chest pain, No edema, No palpitations Abdomen: No pain, No nausea, No vomiting, No diarrhea Female : No dysuria, No urinary frequency Medications Current Inpatient Medications Medications (Trade) Dose Ordered Sig/Janeth Route Start Time Stop Time Status Last Admin Dose Admin Acetaminophen (Tylenol Tab) 650 mg Q4H PRN PO 07/15/17 20:15 08/14/17 20:14 Ondansetron HCl (Zofran Inj) 4 mg Q6H PRN IV 07/15/17 20:15 08/14/17 20:14 07/17/17 08:31 4 MG Nitroglycerin (Nitrostat Tab) 0.4 mg UD PRN SL 07/15/17 20:15 08/14/17 20:14 Allopurinol (Zyloprim Tab) 50 mg QAM PO 07/16/17 09:00 08/15/17 08:59 07/17/17 07:26 50 MG Amiodarone HCl (Cordarone Tab) 200 mg QAM PO 07/16/17 09:00 08/15/17 08:59 07/17/17 07:26 200 MG Clopidogrel Bisulfate (plAVix TAB) 75 mg QPM PO 07/15/17 21:00 08/14/17 20:59 07/16/17 20:40 75 MG Levothyroxine Sodium (Synthroid Tab) 75 mcg DAILYBB PO 07/16/17 06:00 08/15/17 06:59 07/17/17 06:19 75 MCG Multivitamins (Multivitamin Tab) 2 tab QAM PO 07/16/17 09:00 08/15/17 08:59 07/17/17 07:27 2 TAB Oxycodone HCl (Roxicodone Immediate Rel Tab) Pain 5-8 - give 5mg Pain 9... Q4H PRN PO 07/15/17 20:15 07/29/17 20:14 Pantoprazole Sodium (Protonix Tab) 40 mg QAM PO 07/16/17 09:00 08/15/17 08:59 07/17/17 07:27 40 MG Rosuvastatin Calcium (Crestor Tab) 10 mg HS PO 07/15/17 21:00 08/14/17 20:59 07/16/17 20:38 10 MG Senna/Docusate Sodium (Senokot S Tab) 1 tab BID PO 07/15/17 21:00 08/14/17 20:59 07/17/17 07:26 1 TAB Sevelamer HCl (Renagel Tab) 800 mg TIDM PO 07/16/17 07:30 08/15/17 07:59 07/17/17 07:26 800 MG Warfarin Sodium (Coumadin Tab) 2 mg QPM PO 07/15/17 21:00 08/14/17 20:59 07/16/17 20:39 2 MG Polyethylene (Miralax Powder Packet) 17 gm BID PO 07/15/17 21:00 08/14/17 20:59 07/17/17 07:27 17 GM Guaifenesin (Mucinex Contr Rel Tab) 600 mg Q12 PO 07/15/17 21:00 08/14/17 20:59 07/17/17 07:27 600 MG Albuterol/ Ipratropium (Duoneb) 3 ml Q2H PRN INH 07/15/17 20:15 08/14/17 20:14 Albuterol/ Ipratropium (Duoneb) 3 ml Q4R INH 07/16/17 00:00 08/15/17 00:00 07/17/17 07:03 3 ML Prednisone (PredniSONE TAB) 40 mg DAILY PO 07/16/17 17:00 08/15/17 16:59 07/17/17 07:27 40 MG Objective Vital Signs Date Time Temp Pulse Resp B/P (MAP) Pulse Ox O2 Delivery O2 Flow Rate FiO2 07/17/17 07:40 36.5 74 19 113/53 (73) 99 Nasal Cannula 2.0 07/17/17 07:03 74 16 99 Nasal Cannula 2.0 07/17/17 04:08 37.0 80 19 116/47 (70) 95 Nasal Cannula 2.0 07/17/17 04:00 Nasal Cannula 4.0 07/17/17 00:22 36.8 83 19 114/58 (76) 95 Nasal Cannula 2.0 07/16/17 23:59 Nasal Cannula 4.0 07/16/17 23:31 70 16 95 Nasal Cannula 2.0 07/16/17 20:00 94 Nasal Cannula 07/16/17 19:24 36.8 73 22 130/49 (76) 99 Nasal Cannula 2.0 07/16/17 19:11 72 16 96 Nasal Cannula 2.0 07/16/17 16:13 36.6 77 24 104/46 (65) 95 Nasal Cannula 07/16/17 16:00 94 Nasal Cannula 07/16/17 14:27 36.7 75 125/54 (77) 07/16/17 14:15 77 131/57 07/16/17 14:00 73 127/61 07/16/17 13:45 75 124/49 07/16/17 13:30 69 117/49 07/16/17 13:15 72 114/44 07/16/17 13:00 70 105/58 07/16/17 12:45 70 121/51 07/16/17 12:30 70 125/50 07/16/17 12:15 70 116/56 07/16/17 12:00 94 Nasal Cannula 4.0 30 BiPAP 07/16/17 12:00 67 123/47 07/16/17 11:45 66 126/62 07/16/17 11:38 68 99 30 07/16/17 11:37 68 17 99 BiPAP/CPAP 30 07/16/17 11:30 65 122/50 07/16/17 11:15 67 118/50 07/16/17 11:14 36.9 66 16 120/51 (74) 98 BiPAP 30 07/16/17 11:00 66 117/51 07/16/17 10:45 67 112/74 Physical Exam Notes: General Appearance: WD/WN, no apparent distress and on 2 L nasal cannula ENT: hearing grossly normal Respiratory/Chest: + rhonchi (rhonchi mild bilaterally) Cardiovascular: regular rate, rhythm, no JVD (JVD flat at the clavicle), + systolic murmur (3/6 with radiation to carotids) Abdomen: normal bowel sounds, non tender, soft Extremities: non-tender, no pedal edema, no calf tenderness Neurologic/Psychiatric: no motor/sensory deficits, alert, oriented x 3 Skin: normal color, warm/dry, no rash Laboratory Results Results Past 24 Hours Test 07/17/17 05:26 Range/Units White Blood Count 3.62 4.8-10.8 K/uL Red Blood Count 3.41 4.2-5.4 M/uL Hemoglobin 10.5 12.0-16.0 g/dL Hematocrit 33.7 37-47 % Mean Corpuscular Volume 98.8 80-100 fL Mean Corpuscular Hemoglobin 30.8 25-34 pg Mean Corpuscular Hemoglobin Concent 31.2 32-36 g/dl RDW Standard Deviation 59.1 36.4-46.3 fL RDW Coefficient of Variation 16.4 11.5-14.5 % Platelet Count 165 130-400 K/uL Mean Platelet Volume 9.7 7.4-10.4 fL Prothrombin Time 28.0 9.0-12.0 SECONDS Prothromb Time International Ratio 2.5 0.9-1.1 Sodium Level 134 136-145 mmol/L Potassium Level 4.4 3.5-5.1 mmol/L Chloride Level 98 98-107 mmol/L Carbon Dioxide Level 24 21-32 mmol/L Anion Gap 12.0 3-11 mmol/L Blood Urea Nitrogen 26 7-18 mg/dl Creatinine 3.25 0.60-1.20 mg/dl Est Creatinine Clear Calc Drug Dose 11.9 ml/min Estimated GFR () 14.2 Estimated GFR (Non- 12.3 BUN/Creatinine Ratio 8.1 10-20 Random Glucose 162 70-99 mg/dl Calcium Level 8.7 8.5-10.1 mg/dl Procalcitonin 0.75 0-0.5 ng/ml Hepatitis B Surface Antigen NEG NEG Hepatitis B Surface Antibody NEG Assessment and Plan 87 year old female with CAD, ESRD on dialysis, valvular disease and recent hospitalization with pneumonia presents with worsening shortness of breath over the past 2 days. Patient has been improving and has been transitioned to her 2 L of nasal cannula. Dr. Quezada discussed with patient to have her permcath removed while in hospital. Acute hypoxic respiratory failure secondary to asthma exacerbation due to ? pneumonia/bronchitis - O2 to maintain sats > 92% - BiPAP 07/08 as required for comfort if patient feeling short of breath, discussed risks of pneumothorax with this. - incentive spirometry and flutter valve - continue duonebs for pulmonary toilet, steroids transitioned to 40mg for 8 day tapering course - unable to do CT with dye for possible concern of pulm fibrosis - PFT from 2014 with markedly decreased DLCO Left pleural effusion - Pulmonary - will consider thoracentesis as outpatient per pulm Possible hospital/healthcare acquired pneumonia - Continue IV cefepime. (Started on Vanco+ Cefepime + Levaquin on admission). - MRSA neg - stopped vanco. - levaquin stopped due to prolonged qtc of 512 - procalcitonin ordered and 0.75, pulm recommend continue with AB for 10 day course - rapid influenza neg 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 - Consult nephrology - will discuss with Dr. 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 Sanches Hx DVT - Continue warfarin home dosing - monitor INR -. 2.5 this morning GERD - continue pantoprazole 40mg PO daily Gout - Continue allopurinol 50mg PO daily Hypothyroidism - Continue levothyroxine 75 mcg PO daily Dispo - pt/ot ordered - family states that they want her to go home. They have 24 hour care Code Status - Patient wants to be intubated for short term but does not want CPR Continued [facility] stay due to: home environment unsafe for pt Discharge planning: uncertain Reviewed: Pt Seen/Exam by Me History breathing and cough improving denies any other concern Constitutional: denies: fever Respiratory: negative: short of breath Cardiovascular: denies chest pain General Appearance: no apparent distress Respiratory: no accessory muscle use, crackles, rhonchi Cardiovascular: regular rate, rhythm Neurologic/Psychiatric: alert, oriented x 3 Skin Characteristics: warm/dry Assessment/Plan Resident Physician Supervision Note: I independently interviewed and examined the patient and verified the archuleta history and physical, reviewed labs and image studies, discussed the case with the resident Dr. Collins and agree with the findings and care plan.
--- NOTE | 2017-07-17 10:49 | PROGRESS NOTE ---
DATE: 07/17/2017 PROBLEM LIST: Includes: 1. Dyspnea. 2. Chronic respiratory failure with O2 dependence. 3. Acute on chronic respiratory failure secondary to volume overload. 4. Small left pleural effusion. 5. End-stage renal disease, on dialysis. 6. Questionable congestive heart failure exacerbation. SUBJECTIVE: The patient reports that she was feeling better yesterday, states that today she is a little bit more short of breath; however, today she is able to tolerate nasal cannula and is saturating well with her nasal cannula. She has no significant cough or congestion. Today, she does have an occasional cough with a little bit of clear mucus. She has no chest heaviness or tightness. She reports that she does wheeze occasionally but that has improved. Overall, she is feeling better compared to admission. She is no longer requiring BiPAP from about midday on yesterday, she has not really needed it. She has been using her nasal cannula. She denies any chest discomfort. No chest pain. No chest pressure. No abdominal pain. No nausea or vomiting. Her daughter is in the room with her and both report that she does not really have much of an appetite. She does void on her own, although it is small amount. She is getting dialysis every Sunday, Sunday, Sunday. She has no difficulty with her bowels. No difficulty with her extremities. No numbness, tingling or weakness in her extremities. She denies any other concerns or problems at this time. OBJECTIVE: The patient is an 87-year-old female, actually moved from her bed to bedside chair while I was in the room with her. Did get a little bit winded with this but recovered nicely. No significant shortness of breath noted now, difficulty completing sentences. No acute distress. She is alert and oriented x3. Mood is good. Affect is good. VITAL SIGNS: Temp is 36.5, pulse 74, respiration 18, blood pressure is 113/53, pulse ox 99% on 2 liters. When I was in the room, she was averaging 96-100% on 2 liters even with moving from the bed to the chair. Weight is 69.4 kilograms which is down 1 kilogram from 07/15/2017. The patient had a negative fluid balance yesterday of 2221 mL. She had dialysis yesterday. NECK: Short, thick. No mass, no adenopathy, no bruits. CHEST: Diminished breath sounds. The patient has some coarse breath sounds, almost coarse wheeze at the right base, clears for the most part with coughing. The patient is on oxygen. CARDIOVASCULAR: Regular rate and rhythm. The patient has a blowing systolic murmur consistent with aortic stenosis. ABDOMEN: Bowel sounds are present. Abdomen soft, nontender. No guarding, rigidity or organomegaly. EXTREMITIES: The patient has trace edema bilaterally. No erythema, no cyanosis or clubbing noted. NEUROLOGIC: Cranial nerves II-XII are intact. There is no focal deficit noted. LABORATORY DATA: Shows a white count of 3000, H&H 10.5 and 33.7, platelet count 165,000. INR today 2.5. Sodium 134, potassium 4.4, chloride 98, BUN 26, creatinine 3.25 which is down from 4.8 yesterday. Procalcitonin is slightly elevated at 0.75. Urine is pending; however, urinalysis does look like there is some contamination, high epithelial cell count. This was discussed with Dr. Quezada from nephrology. Sputum Gram stain is pending as well. No new imaging data. IMPRESSION: An 87-year-old female with end-stage renal disease, on hemodialysis every Sunday, Sunday, Sunday, was admitted with dyspnea. Other problems include chronic respiratory failure with oxygen dependence, possible acute on chronic respiratory failure secondary to volume overload, small left pleural effusion, questionable congestive heart failure exacerbation. At this point, we did discuss the possibility of doing thoracentesis; however, at this point the patient does not seem to be interested. Also, I do not know that thoracentesis is going to significantly make a difference with her breathing. Did discuss the case with Dr. Quezada, they have been trying to remove a little bit of extra fluid with hemodialysis and this may make a difference for her. We did discuss the possibility of doing a procedure as an outpatient. The patient would need her anticoagulation stopped as an outpatient. The patient and her daughter will think about this; however, at this point does not appear likely that they will be pursuing that in the near future. In regard to possibility of respiratory infection, procalcitonin level was elevated. At this point, continue antibiotics, although we will decrease steroids relatively quickly due to potential for causing increased fluid retention. At this point, per evaluation today, the patient does appear relatively stable from a pulmonary standpoint. We will make sure that we follow the patient as an outpatient in the clinic and further discuss thoracentesis depending on her symptoms. In light of the elevated procalcitonin, continue antibiotics to complete a full 10-day course. Also would recommend a relatively quick steroid taper, the patient is on 40 today, would recommend to do 40 mg tomorrow and then decrease by 10 mg every 2 days. At this point, we will sign off on the patient from a pulmonary standpoint. If there are any significant changes or if needed, we will reevaluate. Patient was seen examined and plan reviewed. Agree with above. SEBASTIAND
--- NOTE | 2017-07-17 14:22 | Medical Consult ---
Consultation Note Date of Service Jul 17, 2017. Consultation Note Patient well known to us. Consulted for removal of permcath. We can remove it Sunday. will need to stop coumadin and plavix today.
[2017-07-17 17:45] LABS: HEMATOCRIT 33.7 % (37-47); MEAN CELL VOLUME 97.7 fL (80-100); MEAN CORPUSCULAR HGB CONC 31.8 g/dl (32-36); MEAN PLATELET VOLUME 10.5 fL (7.4-10.4); PLATELET COUNT 190 K/uL (130-400); RED BLOOD COUNT 3.45 M/uL (4.2-5.4); WHITE BLOOD COUNT 4.22 K/uL (4.8-10.8)
[2017-07-17 18:00] LABS: INR 2.9 (0.9-1.1); PROTHROMBIN TIME (PATIENT) 32.7 SECONDS (9.0-12.0)
[2017-07-17 18:17] LABS: BUN/CREATININE RATIO 9.2 (10-20); CALCIUM 8.9 mg/dl (8.5-10.1); CREATININE 3.99 mg/dl (0.60-1.20); POTASSIUM 4.4 mmol/L (3.5-5.1)
[2017-07-17] MEDS: CEFEPIME IV 500 MG in SYRINGE 0 ML IV SCH (18:57)
[2017-07-17] MEDS: ROSUVASTATIN CALCIUM 10 MG TAB PO SCH (20:24)
[2017-07-17] MEDS ORDERED: NURSING VERBAL MED ORDER ONE (20:30)
[2017-07-17] MEDS ORDERED: COUGH DROP (SUGAR FREE) LOZ 24 LOZ/1 BOX PO PRN (20:30)
[2017-07-17] MEDS ORDERED: LEVOFLOXACIN 500MG / D5W IV SCH (22:00)
[2017-07-18] VITALS (33 sets, daily range): BP systolic 84–137; BP diastolic 40–101; PULSE 62–83; TEMP 36.4–36.9; O2SAT 95–100
[2017-07-18] MEDS: ACETAMINOPHEN 325 MG TAB PO PRN
[2017-07-18] MEDS: OXYCODONE HCL IR 5 MG TAB (IMMEDIATE RELEASE) PO PRN ×2 (02:08→06:16)
[2017-07-18] MEDS: ALBUT/IPRATROP 3MG/0.5MG NEB 3 ML VIAL INH SCH ×6 (03:17→23:18)
[2017-07-18] MEDS ORDERED: EPOETIN ALFA INJ 7,000 UNITS in SYRINGE 0 ML IV. ONE (06:00)
[2017-07-18] MEDS ORDERED: EPOETIN ALFA 10,000 UNITS/ML VIAL IV. ONE (06:00)
[2017-07-18] MEDS ORDERED: PARICALCITOL 5 MCG/ML VIAL (ZEMPLAR) IV. ONE (06:00)
[2017-07-18] MEDS ORDERED: HEPARIN SOD (PORCINE) 1000 UNIT/ML 10 ML VIAL IV SCH (06:00)
[2017-07-18] MEDS: LEVOTHYROXINE 75 MCG TAB PO SCH (06:12)
[2017-07-18 07:07] LABS: BUN/CREATININE RATIO 9.7 (10-20); CALCIUM 8.9 mg/dl (8.5-10.1); CREATININE 4.81 mg/dl (0.60-1.20); POTASSIUM 4.7 mmol/L (3.5-5.1)
[2017-07-18] MEDS: POLYETHYLENE (MIRALAX) 17 GM PACK PO SCH ×2 (07:45→20:48)
[2017-07-18] MEDS: ALLOPURINOL 100 MG TAB PO SCH (07:46)
[2017-07-18] MEDS: GUAIFENESIN 600 MG TABCR PO SCH ×2 (07:46→20:47)
[2017-07-18] MEDS: SEVELAMER HYDROCH 800 MG TAB PO SCH ×4 (07:46→17:00)
[2017-07-18] MEDS: DOCUSATE SODIUM/SENNA 50/8.6MG TAB PO SCH ×2 (07:47→20:47)
[2017-07-18] MEDS: PANTOprazole SOD 40 MG TAB PO SCH (07:47)
[2017-07-18] MEDS: MULTIVITAMIN TAB PO SCH (07:47)
[2017-07-18] MEDS: AMIODARONE 200 MG TAB PO SCH (07:47)
[2017-07-18] MEDS: ONDANSETRON INJ 2 MG/ML 2 ML VIAL IV PRN (08:44)
[2017-07-18] MEDS ORDERED: BENZONATATE 100MG CAP PO ONE (09:30)
--- NOTE | 2017-07-18 09:33 | Nephrology Progress Note ---
Nephrology Progress Note Date of Service Jul 18, 2017. Chief Complaint ESRD requiring HD Subjective Ms. Rahman was seen & examined in preparation for HD this morning. There were no complications overnight. She is currently breathing comfortably on O2 at 2 L / min NC. She complains of a persistent cough productive of yellow sputum. Review of Systems Constitutional: No fever Cardiovascular: No chest pain Respiratory: + productive cough, + dyspnea on exertion Abdomen: No pain, No nausea, No vomiting Extremities: No leg edema A complete review of systems was performed. Pertinent positives are noted above. All other systems are negative. Vital Signs Last 8 Hrs Date Time Temp Pulse Resp B/P (MAP) Pulse Ox O2 Delivery O2 Flow Rate FiO2 07/18/17 07:25 36.5 83 20 117/56 (76) 99 Nasal Cannula 2.0 07/18/17 06:59 81 16 99 Nasal Cannula 2.0 07/18/17 04:23 36.8 80 19 106/53 (70) 98 Nasal Cannula 2.0 07/18/17 04:00 Nasal Cannula 3.0 07/18/17 03:17 81 16 100 Nasal Cannula 2.0 Last Recorded Weight Weight (Kilograms): 71.000 Physical Exam General Appearance: no apparent distress Head: normocephalic, atraumatic Eyes: PERRL, EOMI Neck: no adenopathy Respiratory/Chest: + pertinent finding (diminished breath sounds at left base) Cardiovascular: regular rate, rhythm Abdomen/GI: normal bowel sounds, non tender, soft Extremities/Musculoskelatal: no pedal edema, + pertinent finding (L arm AVF + bruit) Neurologic/Psych: alert, oriented x 3 Family History Asthma Cancer SISTER (Breast cancer) Chronic kidney disease MOTHER Diabetes mellitus FATHER Heart disease FATHER Hypertension FATHER MOTHER Kidney disease Kidney stones Stroke Negative for CKD / ESRD Social History Smoking Status: Never smoker Drug Use: none Marital Status: Housing Status: lives with family Occupation: retired . Retired. Never a smoker. Laboratory Results Past 24 Hours 07/17/17 16:56 07/17/17 16:56 07/18/17 06:01 Test 07/17/17 16:56 07/18/17 06:01 Red Blood Count 3.45 M/uL (4.2-5.4) Mean Corpuscular Volume 97.7 fL (80-100) Mean Corpuscular Hemoglobin 31.0 pg (25-34) Mean Corpuscular Hemoglobin Concent 31.8 g/dl (32-36) RDW Standard Deviation 57.7 fL (36.4-46.3) RDW Coefficient of Variation 16.5 % (11.5-14.5) Mean Platelet Volume 10.5 fL (7.4-10.4) Prothrombin Time 32.7 SECONDS (9.0-12.0) Prothromb Time International Ratio 2.9 (0.9-1.1) Anion Gap 9.0 mmol/L (3-11) 10.0 mmol/L (3-11) Est Creatinine Clear Calc Drug Dose 9.7 ml/min 8.1 ml/min Estimated GFR () 11.1 8.8 Estimated GFR (Non- 9.6 7.6 BUN/Creatinine Ratio 9.2 (10-20) 9.7 (10-20) Calcium Level 8.9 mg/dl (8.5-10.1) 8.9 mg/dl (8.5-10.1) Allergies Coded Allergies: No Known Allergies (Unverified , 04/20/17) Medications Current Inpatient Medications Medications (Trade) Dose Ordered Sig/Janeth Route Start Time Stop Time Status Last Admin Dose Admin Acetaminophen (Tylenol Tab) 650 mg Q4H PRN PO 07/15/17 20:15 08/14/17 20:14 07/18/17 00:00 650 MG Ondansetron HCl (Zofran Inj) 4 mg Q6H PRN IV 07/15/17 20:15 08/14/17 20:14 07/18/17 08:44 4 MG Nitroglycerin (Nitrostat Tab) 0.4 mg UD PRN SL 07/15/17 20:15 08/14/17 20:14 Allopurinol (Zyloprim Tab) 50 mg QAM PO 07/16/17 09:00 08/15/17 08:59 07/18/17 07:46 50 MG Amiodarone HCl (Cordarone Tab) 200 mg QAM PO 07/16/17 09:00 08/15/17 08:59 07/18/17 07:47 200 MG Clopidogrel Bisulfate (plAVix TAB) 75 mg QPM PO 07/15/17 21:00 08/14/17 20:59 Future Hold 07/16/17 20:40 75 MG Levothyroxine Sodium (Synthroid Tab) 75 mcg DAILYBB PO 07/16/17 06:00 08/15/17 06:59 07/18/17 06:12 75 MCG Multivitamins (Multivitamin Tab) 2 tab QAM PO 07/16/17 09:00 08/15/17 08:59 07/18/17 07:47 2 TAB Oxycodone HCl (Roxicodone Immediate Rel Tab) Pain 5-8 - give 5mg Pain 9... Q4H PRN PO 07/15/17 20:15 07/29/17 20:14 07/18/17 06:16 10 MG Pantoprazole Sodium (Protonix Tab) 40 mg QAM PO 07/16/17 09:00 08/15/17 08:59 07/18/17 07:47 40 MG Rosuvastatin Calcium (Crestor Tab) 10 mg HS PO 07/15/17 21:00 08/14/17 20:59 07/17/17 20:24 10 MG Senna/Docusate Sodium (Senokot S Tab) 1 tab BID PO 07/15/17 21:00 08/14/17 20:59 07/18/17 07:47 1 TAB Sevelamer HCl (Renagel Tab) 800 mg TIDM PO 07/16/17 07:30 08/15/17 07:59 07/18/17 07:46 800 MG Warfarin Sodium (Coumadin Tab) 2 mg QPM PO 07/15/17 21:00 08/14/17 20:59 Future Hold 07/16/17 20:39 2 MG Polyethylene (Miralax Powder Packet) 17 gm BID PO 07/15/17 21:00 08/14/17 20:59 07/18/17 07:45 17 GM Guaifenesin (Mucinex Contr Rel Tab) 600 mg Q12 PO 07/15/17 21:00 08/14/17 20:59 07/18/17 07:46 600 MG Albuterol/ Ipratropium (Duoneb) 3 ml Q2H PRN INH 07/15/17 20:15 08/14/17 20:14 Albuterol/ Ipratropium (Duoneb) 3 ml Q4R INH 07/16/17 00:00 08/15/17 00:00 07/18/17 06:56 3 ML Cefepime HCl (Consult) 1 ea UD PRN N/A 07/15/17 21:45 08/14/17 21:44 Cefepime HCl 500 mg/Syringe 5.5 ml @ 5.5 mls/min Q24H IV 07/16/17 18:00 07/20/17 18:01 07/17/17 18:57 5.5 MLS/MIN Prednisone (PredniSONE TAB) 40 mg DAILY PO 07/16/17 17:00 08/15/17 16:59 07/18/17 07:47 40 MG Menthol (Nice Artem) 1 artem PRN PRN PO 07/17/17 20:30 08/16/17 20:29 07/17/17 20:30 1 ARTEM Heparin Sodium (Porcine) (Heparin 100 Unit/ml 5ml Flush) 5 ml PRN PRN FLUSH 07/17/17 23:00 08/16/17 22:59 Benzonatate (Tessalon Perles Cap) 100 mg NOW ONCE PO 07/18/17 09:30 07/18/17 09:31 Benzonatate (Tessalon Perles Cap) 100 mg TID PO 07/18/17 14:00 08/17/17 13:59 Impression (1) Hypoxia (2) ESRD (end stage renal disease) on dialysis (3) Bronchopneumonia (4) Anemia (5) Aortic stenosis (6) Atrial fibrillation (7) Coronary artery disease (8) Loosening of prosthetic hip Ms. Rahman was admitted with hypoxemia. She has a recent h/o LLL pneumonia. She presented w/ a 3 day h/o cough productive of yellow sputum and progressive dyspnea. CXR revealed a small stable L pleural effusion. There were no infiltrates. Patient has been compliant w/ her MWF HD schedule. She is only 1 kg above her dry weight. Clinically suspect that her dyspnea is related to recurrent bronchopneumonia Recommendations END STAGE RENAL DISEASE: -- HD will be provided this morning. Will attempt 3 L UF -- Will order follow up CXR following dialysis today -- Vascular surgery planning to remove IJ THC Sunday - Plavix and Warfarin are being held HYPERTENSION: -- Blood pressure is currently controlled. Will monitor ANEMIA: -- Will provide RANJAN w/ dialysis today ID: -- Patient is currently on Cefipime and Prednisone taper -- Antibiotics as per primary service
--- NOTE | 2017-07-18 12:27 | Pharmacy Progress Note ---
Glycemic Control: Initial Note Date of Service Jul 18, 2017. Scope Glycemic Pharmacist to provide recommendations to improve glycemic control (all ICU patients are screened for hyperglycemia and treatment recommendations are provided per protocol). Pt identified with hyperglycemia (BSG above 180) while admitted to [facility] ([facility]). Subjective The patient is a 87 year old female admitted on Jul 15, 2017 at 20:23 for Acute Respiratory Failure With Hypoxia; Hypoxia. Objective Height (Feet): 5 Height (Inches): 4.00 Weight (Kilograms): 72.100 Accuchecks BSG (last 24hrs): Test 07/17/17 16:56 07/18/17 06:01 Random Glucose 220 mg/dl (70-99) 150 mg/dl (70-99) Laboratory Data (last 24hrs) Test 07/17/17 16:56 07/18/17 06:01 Anion Gap 9.0 mmol/L 10.0 mmol/L BUN/Creatinine Ratio 9.2 9.7 Blood Urea Nitrogen 37 mg/dl 47 mg/dl Creatinine 3.99 mg/dl 4.81 mg/dl Potassium Level 4.4 mmol/L 4.7 mmol/L Sodium Level 131 mmol/L 132 mmol/L White Blood Count 4.22 K/uL Recent Pertinent Medications Outpatient Anti-diabetic Regimen: * The patient is currently receiving: * Basal Insulin: Lantus [] units every [] hours * Correctional Insulin: Novolog Correction per scale ACHS Goal Range: Low [] mg/dL - High [] mg/dL Correction Factor: [] mg/dL/unit * Prandial Insulin: Per carb ratio of 1 unit per [] grams CHO consumed * Oral Agents: Risk Factors for Insulin Resistance: * Steroids:40mg daily * Infection: cefepime for pulmonary source Assessment & Plan ASSESSMENT: * Patient with probable steroid induced hyperglycemia. If hyperglycemia continues, may consider adding NPH for the course of steroids. RECOMMEND: * Adding NPH 25 units SQ QD with AM prednisone dose. Pharmacy will continue to provide recommendations in EMR while patient admitted to 1E/2E. Physicians may request pharmacy to continue to follow patient when transferred out of the ICU and/or consult pharmacy to write glycemic control orders * Please note that the plan above was derived based on current level of insulin resistance and hospital stress. These recommendations are appropriate for inpatient admission only. Plan of care upon discharge will need to be reassessed to avoid potential outpatient hypo/hyperglycemia. Thank you.
[2017-07-18] MEDS: BENZONATATE 100MG CAP PO SCH ×2 (14:00→20:48)
--- NOTE | 2017-07-18 14:40 | DIAGNOSTIC IMAGING REPORT ---
CHEST ONE VIEW PORTABLE HISTORY: Left pleural effusion. Short of breath. COMPARISON: Chest 07/15/2017. FINDINGS: Small left pleural effusion persists. Left basilar densities are also unchanged. There is left jugular catheter terminates in the SVC. There are postoperative changes. The heart remains mildly enlarged. No pneumothorax. Mild central pulmonary vascular congestion without overt edema. IMPRESSION: 1. Cardiomegaly with mild pulmonary vascular congestion. 2. Small left pleural effusion and left basilar densities persist. Electronically signed by: Trell Cannon M.D. 07/18/2017 2:39 PM Dictated Date/Time: 07/18/2017 2:38 PM
--- NOTE | 2017-07-18 16:03 | Family Medicine Progress Note ---
Progress Note Date of Service Jul 18, 2017. Subjective Pt evaluation today including: conversation w/ patient, conversation w/ family , physical exam, chart review, lab review, conversation w/ legal consultant, review of inpatient medication list Pain: none PO Intake: good Voiding: no voiding problems Patient feeling well overnight, but has a persistent cough with yellowish sputum that is making her feel nauseated Denies any shortness of breath, fevers, chills or chest pain Constitutional: No fever, No chills, No sweats Respiratory: + cough, + sputum, No wheezing, No shortness of breath Cardiovascular: No chest pain, No edema, No palpitations Abdomen: + nausea, No pain, No vomiting Medications Current Inpatient Medications Medications (Trade) Dose Ordered Sig/Janeth Route Start Time Stop Time Status Last Admin Dose Admin Acetaminophen (Tylenol Tab) 650 mg Q4H PRN PO 07/15/17 20:15 08/14/17 20:14 07/18/17 00:00 650 MG Ondansetron HCl (Zofran Inj) 4 mg Q6H PRN IV 07/15/17 20:15 08/14/17 20:14 07/18/17 08:44 4 MG Nitroglycerin (Nitrostat Tab) 0.4 mg UD PRN SL 07/15/17 20:15 08/14/17 20:14 Allopurinol (Zyloprim Tab) 50 mg QAM PO 07/16/17 09:00 08/15/17 08:59 07/18/17 07:46 50 MG Amiodarone HCl (Cordarone Tab) 200 mg QAM PO 07/16/17 09:00 08/15/17 08:59 07/18/17 07:47 200 MG Clopidogrel Bisulfate (plAVix TAB) 75 mg QPM PO 07/15/17 21:00 08/14/17 20:59 Future Hold 07/16/17 20:40 75 MG Levothyroxine Sodium (Synthroid Tab) 75 mcg DAILYBB PO 07/16/17 06:00 08/15/17 06:59 07/18/17 06:12 75 MCG Multivitamins (Multivitamin Tab) 2 tab QAM PO 07/16/17 09:00 08/15/17 08:59 07/18/17 07:47 2 TAB Oxycodone HCl (Roxicodone Immediate Rel Tab) Pain 5-8 - give 5mg Pain 9... Q4H PRN PO 07/15/17 20:15 07/29/17 20:14 07/18/17 06:16 10 MG Pantoprazole Sodium (Protonix Tab) 40 mg QAM PO 07/16/17 09:00 08/15/17 08:59 07/18/17 07:47 40 MG Rosuvastatin Calcium (Crestor Tab) 10 mg HS PO 07/15/17 21:00 08/14/17 20:59 07/17/17 20:24 10 MG Senna/Docusate Sodium (Senokot S Tab) 1 tab BID PO 07/15/17 21:00 08/14/17 20:59 07/18/17 07:47 1 TAB Sevelamer HCl (Renagel Tab) 800 mg TIDM PO 07/16/17 07:30 08/15/17 07:59 07/18/17 15:08 800 MG Warfarin Sodium (Coumadin Tab) 2 mg QPM PO 07/15/17 21:00 08/14/17 20:59 Future Hold 07/16/17 20:39 2 MG Polyethylene (Miralax Powder Packet) 17 gm BID PO 07/15/17 21:00 08/14/17 20:59 07/18/17 07:45 17 GM Guaifenesin (Mucinex Contr Rel Tab) 600 mg Q12 PO 07/15/17 21:00 08/14/17 20:59 07/18/17 07:46 600 MG Albuterol/ Ipratropium (Duoneb) 3 ml Q2H PRN INH 07/15/17 20:15 08/14/17 20:14 Albuterol/ Ipratropium (Duoneb) 3 ml Q4R INH 07/16/17 00:00 08/15/17 00:00 07/18/17 14:37 3 ML Cefepime HCl (Consult) 1 ea UD PRN N/A 07/15/17 21:45 08/14/17 21:44 Cefepime HCl 500 mg/Syringe 5.5 ml @ 5.5 mls/min Q24H IV 07/16/17 18:00 07/20/17 18:01 07/17/17 18:57 5.5 MLS/MIN Prednisone (PredniSONE TAB) 40 mg DAILY PO 07/16/17 17:00 08/15/17 16:59 07/18/17 07:47 40 MG Menthol (Nice Darcie) 1 darcie PRN PRN PO 07/17/17 20:30 08/16/17 20:29 07/17/17 20:30 1 DARCIE Heparin Sodium (Porcine) (Heparin 100 Unit/ml 5ml Flush) 5 ml PRN PRN FLUSH 07/17/17 23:00 08/16/17 22:59 Benzonatate (Tessalon Perles Cap) 100 mg TID PO 07/18/17 14:00 08/17/17 13:59 07/18/17 14:00 100 MG Enteral Nutritional Formula (Boost Breeze Nutritional Drink) 1 box TIDM PO 07/18/17 16:45 08/17/17 16:44 Codeine Phosphate/ Guaifenesin (Robitussin-AC Sugar Free Syrup) 5 ml Q6H PRN PO 07/18/17 16:00 08/17/17 15:59 Objective Vital Signs Date Time Temp Pulse Resp B/P (MAP) Pulse Ox O2 Delivery O2 Flow Rate FiO2 07/18/17 14:45 99 07/18/17 14:37 71 18 99 Nasal Cannula 2.0 07/18/17 13:12 36.4 72 132/52 (78) 07/18/17 13:00 72 129/44 07/18/17 12:45 69 120/46 07/18/17 12:30 69 120/47 07/18/17 12:15 70 112/46 07/18/17 12:05 36.4 71 20 110/47 (68) 100 Nasal Cannula 2.0 07/18/17 12:00 71 110/47 07/18/17 12:00 Nasal Cannula 2.0 07/18/17 11:45 69 107/47 07/18/17 11:30 69 98/40 07/18/17 11:15 69 122/51 07/18/17 11:11 69 16 100 Nasal Cannula 2.0 07/18/17 11:00 70 122/47 07/18/17 10:45 70 121/41 07/18/17 10:30 70 124/51 07/18/17 10:15 72 99/43 07/18/17 10:11 75 108/49 11/15/17 10:00 75 116/101 07/18/17 09:45 74 123/46 07/18/17 09:30 75 108/49 07/18/17 09:12 78 84/60 07/18/17 09:05 36.7 78 90/72 (78) 07/18/17 08:00 Nasal Cannula 2.0 07/18/17 07:25 36.5 83 20 117/56 (76) 99 Nasal Cannula 2.0 07/18/17 06:59 81 16 99 Nasal Cannula 2.0 07/18/17 04:23 36.8 80 19 106/53 (70) 98 Nasal Cannula 2.0 07/18/17 04:00 Nasal Cannula 3.0 07/18/17 03:17 81 16 100 Nasal Cannula 2.0 07/18/17 00:33 36.9 82 20 111/57 (75) 96 Nasal Cannula 2.0 07/17/17 23:59 Nasal Cannula 3.0 07/17/17 22:57 81 16 100 Nasal Cannula 2.0 07/17/17 20:00 98 Nasal Cannula 3.0 07/17/17 19:57 36.6 73 22 121/46 (71) 98 Nasal Cannula 2.0 07/17/17 19:00 70 16 99 Nasal Cannula 2.0 07/17/17 16:04 36.8 67 16 106/61 (76) 99 Nasal Cannula 2.0 07/17/17 16:00 98 Nasal Cannula 2.0 Physical Exam Notes: General Appearance: WD/WN, no apparent distress and on 2 L nasal cannula ENT: hearing grossly normal Respiratory/Chest: no accessory muscle use, clear bilaterally Cardiovascular: regular rate, rhythm, no JVD (JVD flat at the clavicle), + systolic murmur (3/6 with radiation to carotids) Abdomen: normal bowel sounds, non tender, soft Extremities: non-tender, no pedal edema, no calf tenderness Neurologic/Psychiatric: no motor/sensory deficits, alert, oriented x 3 Skin: normal color, warm/dry, no rash Laboratory Results Results Past 24 Hours Test 07/17/17 16:56 07/18/17 06:01 Range/Units White Blood Count 4.22 4.8-10.8 K/uL Red Blood Count 3.45 4.2-5.4 M/uL Hemoglobin 10.7 12.0-16.0 g/dL Hematocrit 33.7 37-47 % Mean Corpuscular Volume 97.7 80-100 fL Mean Corpuscular Hemoglobin 31.0 25-34 pg Mean Corpuscular Hemoglobin Concent 31.8 32-36 g/dl RDW Standard Deviation 57.7 36.4-46.3 fL RDW Coefficient of Variation 16.5 11.5-14.5 % Platelet Count 190 130-400 K/uL Mean Platelet Volume 10.5 7.4-10.4 fL Prothrombin Time 32.7 9.0-12.0 SECONDS Prothromb Time International Ratio 2.9 0.9-1.1 Sodium Level 131 132 136-145 mmol/L Potassium Level 4.4 4.7 3.5-5.1 mmol/L Chloride Level 98 98 98-107 mmol/L Carbon Dioxide Level 24 24 21-32 mmol/L Anion Gap 9.0 10.0 3-11 mmol/L Blood Urea Nitrogen 37 47 7-18 mg/dl Creatinine 3.99 4.81 0.60-1.20 mg/dl Est Creatinine Clear Calc Drug Dose 9.7 8.1 ml/min Estimated GFR () 11.1 8.8 Estimated GFR (Non- 9.6 7.6 BUN/Creatinine Ratio 9.2 9.7 10-20 Random Glucose 220 150 70-99 mg/dl Calcium Level 8.9 8.9 8.5-10.1 mg/dl Assessment and Plan 87 year old female with CAD, ESRD on dialysis, valvular disease and recent hospitalization with pneumonia presents with worsening shortness of breath over the past 2 days. Patient has been improving and has been transitioned to her 2 L of nasal cannula. Dr. Quezada discussed with patient to have her permcath removed while in hospital. Patient was seen by Dr. Rocha and will have permcath removed on Sunday Acute hypoxic respiratory failure secondary to asthma exacerbation due to ? pneumonia/bronchitis - O2 to maintain sats > 92% - BiPAP 07/08 as required for comfort if patient feeling short of breath, discussed risks of pneumothorax with this. - incentive spirometry and flutter valve - continue duonebs for pulmonary toilet, steroids transitioned to 40mg for 8 day tapering course - unable to do CT with dye for possible concern of pulm fibrosis - PFT from 2014 with markedly decreased DLCO Acute persistent cough secondary to pneumonia vs bronchitis - tessalon pearls 100mg tid without relief - Guaifenesin 5ml PO q6 added this afternoon Left pleural effusion - Pulmonary - will consider thoracentesis as outpatient per pulm Possible hospital/healthcare acquired pneumonia - Continue IV cefepime. (Started on Vanco+ Cefepime + Levaquin on admission). - MRSA neg - stopped vanco. - levaquin stopped due to prolonged qtc of 512 - procalcitonin ordered and 0.75, pulm recommend continue with AB for 10 day course - rapid influenza neg 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 - Consult nephrology - Dr. Quezada following - Dialysis Sunday, Sunday and Sunday Permacath removal - Dr. Rocha consulted - plan for removal on Sunday - anticoagulation held, continue to monitor INR Coronary Artery disease (s/p CABG 1996, stent to RCA 2006, with obstructed SVGs to the diagonal and ramus branches), Hx Multiple NSTEMIs and STEMI, Paroxysmal Atrial Fibrillation, Ischemic Cardiomyopathy (EF 35-40%), Hypertension, Hypercholesterolemia, Combined systolic and diastolic heart failure, Valvular heart disease (moderate to severe , moderate MR) - Continue amiodarone and rosuvastatin - Clopidogrel held due to surgery on Sunday - troponin chronically elevated - echo showed type 2 DD, enlarged left atrium, mildly elevated RVSP, mod aortic stenosis Prolonged Qt due to medication side effect - On amiodarone - levaquin stopped - repeat EKG showed prolonged QT of 527 - will repeat tomorrow Hx DVT - warfarin held due to surgery sunday - monitor INR -. 2.9 this morning GERD - continue pantoprazole 40mg PO daily Gout - Continue allopurinol 50mg PO daily Hypothyroidism - Continue levothyroxine 75 mcg PO daily Dispo - pt/ot ordered - family states that they want her to go home. They have 24 hour care Code Status - Patient wants to be intubated for short term but does not want CPR Continued [facility] stay due to: home environment unsafe for pt Discharge planning: home with home health Reviewed: Pt Seen/Exam by Me History coughed all night. didn't get any sleep. feeling tired and exhausted this morning Constitutional: denies: fever Respiratory: positive: cough Cardiovascular: denies chest pain Gastrointestinal/Abdominal: negative: abdominal pain General Appearance: mild distress (sec to cough) Respiratory: no respiratory distress, decreased breath sounds Cardiovascular: regular rate, rhythm Gastrointestinal: soft Neurologic/Psychiatric: alert, oriented x 3 Skin Characteristics: warm/dry Assessment/Plan Resident Physician Supervision Note: I independently interviewed and examined the patient and verified the archuleta history and physical, reviewed labs and image studies, discussed the case with the resident Dr. Collins and agree with the findings and care plan.
[2017-07-18] MEDS: BOOST BREEZE NUTRITION DRINK 1 BOX PO SCH (16:59)
[2017-07-18] MEDS: CEFEPIME IV 500 MG in SYRINGE 0 ML IV SCH (18:06)
[2017-07-18] MEDS: ROSUVASTATIN CALCIUM 10 MG TAB PO SCH (20:48)
[2017-07-18] MEDS: GUAIFENESIN/CODEINE 100MG/10MG 5ML UDC PO PRN (20:56)
[2017-07-19] VITALS (12 sets, daily range): BP systolic 110–129; BP diastolic 44–72; PULSE 72–91; TEMP 36.6–37.1; O2SAT 95–100
[2017-07-19] MEDS: BENZONATATE 100MG CAP PO SCH ×3 (02:22→21:31)
[2017-07-19] MEDS: ALBUT/IPRATROP 3MG/0.5MG NEB 3 ML VIAL INH SCH ×6 (03:01→23:18)
[2017-07-19] MEDS: LEVOTHYROXINE 75 MCG TAB PO SCH (05:57)
[2017-07-19 06:47] LABS: HEMATOCRIT 36.3 % (37-47); MEAN CELL VOLUME 99.2 fL (80-100); MEAN CORPUSCULAR HEMOGLOBIN 29.8 pg (25-34); MEAN PLATELET VOLUME 9.9 fL (7.4-10.4); PLATELET COUNT 194 K/uL (130-400); RED BLOOD COUNT 3.66 M/uL (4.2-5.4); WHITE BLOOD COUNT 8.01 K/uL (4.8-10.8)
[2017-07-19 07:20] LABS: INR 1.8 (0.9-1.1); PROTHROMBIN TIME (PATIENT) 19.7 SECONDS (9.0-12.0)
[2017-07-19 07:21] LABS: CALCIUM 8.7 mg/dl (8.5-10.1); CREATININE 3.76 mg/dl (0.60-1.20)
[2017-07-19] MEDS: BOOST BREEZE NUTRITION DRINK 1 BOX PO SCH ×3 (07:30→16:45)
[2017-07-19] MEDS: POLYETHYLENE (MIRALAX) 17 GM PACK PO SCH ×2 (07:51→21:31)
[2017-07-19] MEDS: SEVELAMER HYDROCH 800 MG TAB PO SCH ×3 (07:51→16:45)
[2017-07-19] MEDS: GUAIFENESIN 600 MG TABCR PO SCH ×2 (07:51→21:31)
[2017-07-19] MEDS: AMIODARONE 200 MG TAB PO SCH (07:52)
[2017-07-19] MEDS: MULTIVITAMIN TAB PO SCH (07:52)
[2017-07-19] MEDS: ALLOPURINOL 100 MG TAB PO SCH (07:52)
[2017-07-19] MEDS: PANTOprazole SOD 40 MG TAB PO SCH (07:52)
[2017-07-19] MEDS: DOCUSATE SODIUM/SENNA 50/8.6MG TAB PO SCH ×2 (07:53→21:31)
[2017-07-19] MEDS ORDERED: HEPARIN IV LOW DOSE NO BOLUS SCH (08:01)
--- NOTE | 2017-07-19 08:05 | Family Medicine Progress Note ---
Progress Note Date of Service Jul 19, 2017. Subjective Pt evaluation today including: conversation w/ patient, physical exam, chart review, lab review, conversation w/ diet consultant, review of inpatient medication list Pain: none PO Intake: good Voiding: no voiding problems Patient feeling well and without any new complaints Cough has improved with codeine medication. Still has some L sided back pain from coughing so much yesterday Patient shortness of breath has improved Constitutional: No fever, No chills, No sweats Respiratory: + cough, No sputum, No shortness of breath, No dyspnea on exertion Cardiovascular: No chest pain, No edema, No palpitations Abdomen: No pain, No nausea, No vomiting, No diarrhea Heme: No abnormal bleeding/bruising, No clotting problems Medications Current Inpatient Medications Medications (Trade) Dose Ordered Sig/Janeth Route Start Time Stop Time Status Last Admin Dose Admin Acetaminophen (Tylenol Tab) 650 mg Q4H PRN PO 07/15/17 20:15 08/14/17 20:14 07/18/17 00:00 650 MG Ondansetron HCl (Zofran Inj) 4 mg Q6H PRN IV 07/15/17 20:15 08/14/17 20:14 07/18/17 08:44 4 MG Nitroglycerin (Nitrostat Tab) 0.4 mg UD PRN SL 07/15/17 20:15 08/14/17 20:14 Allopurinol (Zyloprim Tab) 50 mg QAM PO 07/16/17 09:00 08/15/17 08:59 07/18/17 07:46 50 MG Amiodarone HCl (Cordarone Tab) 200 mg QAM PO 07/16/17 09:00 08/15/17 08:59 07/18/17 07:47 200 MG Clopidogrel Bisulfate (plAVix TAB) 75 mg QPM PO 07/15/17 21:00 08/14/17 20:59 Future Hold 07/16/17 20:40 75 MG Levothyroxine Sodium (Synthroid Tab) 75 mcg DAILYBB PO 07/16/17 06:00 08/15/17 06:59 07/19/17 05:57 75 MCG Multivitamins (Multivitamin Tab) 2 tab QAM PO 07/16/17 09:00 08/15/17 08:59 07/18/17 07:47 2 TAB Oxycodone HCl (Roxicodone Immediate Rel Tab) Pain 5-8 - give 5mg Pain 9... Q4H PRN PO 07/15/17 20:15 07/29/17 20:14 07/18/17 06:16 10 MG Pantoprazole Sodium (Protonix Tab) 40 mg QAM PO 07/16/17 09:00 08/15/17 08:59 07/18/17 07:47 40 MG Rosuvastatin Calcium (Crestor Tab) 10 mg HS PO 07/15/17 21:00 08/14/17 20:59 07/18/17 20:48 10 MG Senna/Docusate Sodium (Senokot S Tab) 1 tab BID PO 07/15/17 21:00 08/14/17 20:59 07/18/17 20:47 1 TAB Sevelamer HCl (Renagel Tab) 800 mg TIDM PO 07/16/17 07:30 08/15/17 07:59 07/18/17 17:00 800 MG Warfarin Sodium (Coumadin Tab) 2 mg QPM PO 07/15/17 21:00 08/14/17 20:59 Future Hold 07/16/17 20:39 2 MG Polyethylene (Miralax Powder Packet) 17 gm BID PO 07/15/17 21:00 08/14/17 20:59 07/18/17 20:48 17 GM Guaifenesin (Mucinex Contr Rel Tab) 600 mg Q12 PO 07/15/17 21:00 08/14/17 20:59 07/18/17 20:47 600 MG Albuterol/ Ipratropium (Duoneb) 3 ml Q2H PRN INH 07/15/17 20:15 08/14/17 20:14 Albuterol/ Ipratropium (Duoneb) 3 ml Q4R INH 07/16/17 00:00 08/15/17 00:00 07/19/17 06:51 3 ML Cefepime HCl (Consult) 1 ea UD PRN N/A 07/15/17 21:45 08/14/17 21:44 Cefepime HCl 500 mg/Syringe 5.5 ml @ 5.5 mls/min Q24H IV 07/16/17 18:00 07/20/17 18:01 11/15/17 18:06 5.5 MLS/MIN Prednisone (PredniSONE TAB) 40 mg DAILY PO 07/16/17 17:00 08/15/17 16:59 07/18/17 07:47 40 MG Menthol (Nice Darcie) 1 darcie PRN PRN PO 07/17/17 20:30 08/16/17 20:29 07/17/17 20:30 1 DARCIE Heparin Sodium (Porcine) (Heparin 100 Unit/ml 5ml Flush) 5 ml PRN PRN FLUSH 07/17/17 23:00 08/16/17 22:59 Benzonatate (Tessalon Perles Cap) 100 mg TID PO 07/18/17 14:00 08/17/17 13:59 07/19/17 02:22 100 MG Enteral Nutritional Formula (Boost Breeze Nutritional Drink) 1 box TIDM PO 07/18/17 16:45 08/17/17 16:44 07/18/17 16:59 1 BOX Codeine Phosphate/ Guaifenesin (Robitussin-AC Sugar Free Syrup) 5 ml Q6H PRN PO 07/18/17 16:00 08/17/17 15:59 07/18/17 20:56 5 ML Objective Vital Signs Date Time Temp Pulse Resp B/P (MAP) Pulse Ox O2 Delivery O2 Flow Rate FiO2 07/19/17 07:36 36.6 83 16 120/44 (69) 99 Nasal Cannula 2.0 07/19/17 06:52 74 16 99 Nasal Cannula 2.0 07/19/17 04:44 36.7 85 19 110/52 (71) 95 Nasal Cannula 2.0 07/19/17 04:00 Nasal Cannula 2.0 07/19/17 03:02 72 16 100 Nasal Cannula 2.0 07/19/17 00:09 37.1 81 21 125/67 (86) 100 Nasal Cannula 2.0 07/19/17 00:00 Nasal Cannula 2.0 07/18/17 23:19 81 14 100 Nasal Cannula 2.0 07/18/17 20:07 36.5 66 18 137/83 (101) 95 07/18/17 20:00 Nasal Cannula 2.0 07/18/17 18:54 67 16 100 Nasal Cannula 2.0 07/18/17 16:43 36.9 62 18 111/43 (65) 98 07/18/17 16:00 98 Nasal Cannula 2.0 07/18/17 14:45 99 07/18/17 14:37 71 18 99 Nasal Cannula 2.0 07/18/17 13:12 36.4 72 132/52 (78) 07/18/17 13:00 72 129/44 07/18/17 12:45 69 120/46 07/18/17 12:30 69 120/47 07/18/17 12:15 70 112/46 07/18/17 12:05 36.4 71 20 110/47 (68) 100 Nasal Cannula 2.0 07/18/17 12:00 71 110/47 07/18/17 12:00 Nasal Cannula 2.0 07/18/17 11:45 69 107/47 07/18/17 11:30 69 98/40 07/18/17 11:15 69 122/51 07/18/17 11:11 69 16 100 Nasal Cannula 2.0 07/18/17 11:00 70 122/47 07/18/17 10:45 70 121/41 07/18/17 10:30 70 124/51 07/18/17 10:15 72 99/43 07/18/17 10:11 75 108/49 07/18/17 10:00 75 116/101 07/18/17 09:45 74 123/46 07/18/17 09:30 75 108/49 07/18/17 09:12 78 84/60 07/18/17 09:05 36.7 78 90/72 (78) 07/18/17 08:00 Nasal Cannula 2.0 Physical Exam General Appearance: WD/WN, no apparent distress, + pertinent finding ENT: hearing grossly normal, pharynx normal Neck: no JVD, trachea midline, + pertinent finding (bilateral carotid bruits) Respiratory/Chest: chest non-tender, no accessory muscle use, + crackles ( crackles bilaterally, worst at LLLB) Cardiovascular: regular rate, rhythm, no murmur (systolic murmur 2/6 radiating to carotids) Abdomen: non tender, soft Extremities: no calf tenderness, normal capillary refill, + pertinent finding ( weak peripheral pulses) Neurologic/Psychiatric: oriented x 3 Laboratory Results Results Past 24 Hours Test 07/19/17 06:35 Range/Units White Blood Count 8.01 4.8-10.8 K/uL Red Blood Count 3.66 4.2-5.4 M/uL Hemoglobin 10.9 12.0-16.0 g/dL Hematocrit 36.3 37-47 % Mean Corpuscular Volume 99.2 80-100 fL Mean Corpuscular Hemoglobin 29.8 25-34 pg Mean Corpuscular Hemoglobin Concent 30.0 32-36 g/dl RDW Standard Deviation 59.5 36.4-46.3 fL RDW Coefficient of Variation 16.6 11.5-14.5 % Platelet Count 194 130-400 K/uL Mean Platelet Volume 9.9 7.4-10.4 fL Prothrombin Time 19.7 9.0-12.0 SECONDS Prothromb Time International Ratio 1.8 0.9-1.1 Sodium Level 135 136-145 mmol/L Potassium Level 4.0 3.5-5.1 mmol/L Chloride Level 101 98-107 mmol/L Carbon Dioxide Level 24 21-32 mmol/L Anion Gap 10.0 3-11 mmol/L Blood Urea Nitrogen 30 7-18 mg/dl Creatinine 3.76 0.60-1.20 mg/dl Est Creatinine Clear Calc Drug Dose 10.5 ml/min Estimated GFR () 11.9 Estimated GFR (Non- 10.3 BUN/Creatinine Ratio 8.0 10-20 Random Glucose 137 70-99 mg/dl Calcium Level 8.7 8.5-10.1 mg/dl Assessment and Plan 87 year old female with CAD, ESRD on dialysis, valvular disease and recent hospitalization with pneumonia presents with worsening shortness of breath over the past 2 days. Patient has been improving and has been transitioned to her 2 L of nasal cannula. Dr. Quezada discussed with patient to have her permcath removed while in hospital. Patient was seen by Dr. Rocha and will have permcath removed on Sunday Acute hypoxic respiratory failure secondary to asthma exacerbation due to ? pneumonia/bronchitis - O2 to maintain sats > 92% - BiPAP 07/08 as required for comfort if patient feeling short of breath, discussed risks of pneumothorax with this. - incentive spirometry and flutter valve - continue duonebs for pulmonary toilet, - steroids PO with 8 day taper, today day #4 received 30mg - unable to do CT with dye for possible concern of pulm fibrosis - PFT from 2014 with markedly decreased DLCO Acute persistent cough secondary to pneumonia vs bronchitis - tessalon pearls 100mg tid without relief - Guaifenesin 5ml PO q6 added this afternoon Left pleural effusion - Pulmonary - will consider thoracentesis as outpatient per pulm Possible hospital/healthcare acquired pneumonia - Continue IV cefepime. (Started on Vanco+ Cefepime + Levaquin on admission). - MRSA neg - stopped vanco. - levaquin stopped due to prolonged qtc of 512 - procalcitonin ordered and 0.75, pulm recommend continue with AB for 10 day course - rapid influenza neg 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 - Nephrology following - Dr. Quezada following - Dialysis Sunday, Sunday and Sunday Permacath removal - Dr. 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 1.8 this morning - heparin drip low dose started until surgery due to decreased INR GERD - continue pantoprazole 40mg PO daily Gout - Continue allopurinol 50mg PO daily Hypothyroidism - Continue levothyroxine 75 mcg PO daily Dispo - pt/ot ordered - family states that they want her to go home. They have 24 hour care Code Status - Patient wants to be intubated for short term but does not want CPR Diet - NPO after midnight Continued [facility] stay due to: multiple IV medications needed, home environment unsafe for pt Discharge planning: uncertain Reviewed: Pt Seen/Exam by Me History cough much better breathing is improved Constitutional: denies: fever Cardiovascular: denies chest pain General Appearance: no apparent distress Respiratory: no respiratory distress, decreased breath sounds Cardiovascular: regular rate, rhythm Neurologic/Psychiatric: alert, oriented x 3 Skin Characteristics: warm/dry Assessment/Plan Resident Physician Supervision Note: I independently interviewed and examined the patient and verified the archuleta history and physical, reviewed labs and image studies, discussed the case with the resident Dr. Collins and agree with the findings and care plan.
[2017-07-19 08:39] LABS: ESTIMATED AVERAGE GLUCOSE 114 mg/dl; HA1C FLAG Normal (Normal)
[2017-07-19 09:49] LABS: COMPLETE YES; IG% 0.5 %; LYMPH % 13.2 %; LYMPH ABS # 1.13 K/uL (1.2-3.4); NEUT % 73.3 %
[2017-07-19 09:51] LABS: PARTIAL THROMBOPLASTIN RATIO 1.3
[2017-07-19] MEDS: HEPARIN 25,000 UNIT/500ML D5W 500 ML IV PRN ×2 (09:58→17:10)
[2017-07-19] MEDS: GUAIFENESIN/CODEINE 100MG/10MG 5ML UDC PO PRN ×2 (10:03→23:24)
--- NOTE | 2017-07-19 10:15 | Progress Note ---
Progress Note Date of Service Jul 19, 2017. Progress Note For permcath removal tomorrow around 1230 Heparin placed on hold prior to procedure. I have discussed the risks options and benefits of the procedure with the patient. The patient understands the risks options and benefits and agrees to the procedure.
--- NOTE | 2017-07-19 10:26 | Nephrology Progress Note ---
Nephrology Progress Note Date of Service Jul 19, 2017. Chief Complaint ESRD requiring HD Subjective Ms. Rahman was seen & examined in the ICU this morning. She was dialyzed yesterday for 4 hours w/ 2800 cc UF. Ms. Rahman reports that her breathing has improved. Unfortunately she still has a persistent cough productive of yellow sputum. Review of Systems Constitutional: No fever Cardiovascular: No chest pain Respiratory: + productive cough Abdomen: No pain, No nausea, No vomiting A complete review of systems was performed. Pertinent positives are noted above. All other systems are negative. Vital Signs Last 8 Hrs Date Time Temp Pulse Resp B/P (MAP) Pulse Ox O2 Delivery O2 Flow Rate FiO2 07/19/17 08:00 Nasal Cannula 2.0 07/19/17 07:36 36.6 83 16 120/44 (69) 99 Nasal Cannula 2.0 07/19/17 06:52 74 16 99 Nasal Cannula 2.0 07/19/17 04:44 36.7 85 19 110/52 (71) 95 Nasal Cannula 2.0 07/19/17 04:00 Nasal Cannula 2.0 07/19/17 03:02 72 16 100 Nasal Cannula 2.0 Last Recorded Weight Weight (Kilograms): 72.100 Physical Exam General Appearance: no apparent distress Head: atraumatic Eyes: PERRL, EOMI Neck: no adenopathy, + pertinent finding (L IJ THC with clean, dry dressing in place) Respiratory/Chest: + crackles (L base) Cardiovascular: + irregularly irregular Abdomen/GI: normal bowel sounds, non tender, soft Extremities/Musculoskelatal: no pedal edema Neurologic/Psych: alert, oriented x 3 Family History Asthma Cancer SISTER (Breast cancer) Chronic kidney disease MOTHER Diabetes mellitus FATHER Heart disease FATHER Hypertension FATHER MOTHER Kidney disease Kidney stones Stroke Negative for CKD / ESRD Social History Smoking Status: Never smoker Drug Use: none Marital Status: Housing Status: lives with family Occupation: retired . Retired. Never a smoker. Laboratory Results Past 24 Hours 07/19/17 06:35 Red Blood Count 3.66, Mean Corpuscular Volume 99.2, Mean Corpuscular Hemoglobin 29.8, Mean Corpuscular Hemoglobin Concent 30.0, Mean Platelet Volume 9.9, Neutrophils (%) (Auto) 73.3, Lymphocytes (%) (Auto) 13.2, Monocytes (%) (Auto) 13.0, Eosinophils (%) (Auto) 0.0, Basophils (%) (Auto) 0.0, Neutrophils # (Auto ) 6.29, Lymphocytes # (Auto) 1.13, Monocytes # (Auto) 1.11, Eosinophils # (Auto ) 0.00, Basophils # (Auto) 0.00 07/19/17 06:35 Test 07/19/17 06:35 White Blood Count 8.01 K/uL (4.8-10.8) Red Blood Count 3.66 M/uL (4.2-5.4) Hemoglobin 10.9 g/dL (12.0-16.0) Hematocrit 36.3 % (37-47) Mean Corpuscular Volume 99.2 fL (80-100) Mean Corpuscular Hemoglobin 29.8 pg (25-34) Mean Corpuscular Hemoglobin Concent 30.0 g/dl (32-36) Platelet Count 194 K/uL (130-400) Mean Platelet Volume 9.9 fL (7.4-10.4) Neutrophils (%) (Auto) 73.3 % Lymphocytes (%) (Auto) 13.2 % Monocytes (%) (Auto) 13.0 % Eosinophils (%) (Auto) 0.0 % Basophils (%) (Auto) 0.0 % Neutrophils # (Auto) 6.29 K/uL (1.4-6.5) Lymphocytes # (Auto) 1.13 K/uL (1.2-3.4) Monocytes # (Auto) 1.11 K/uL (0.11-0.59) Eosinophils # (Auto) 0.00 K/uL (0-0.5) Basophils # (Auto) 0.00 K/uL (0-0.2) RDW Standard Deviation 59.5 fL (36.4-46.3) RDW Coefficient of Variation 16.6 % (11.5-14.5) Immature Granulocyte % (Auto) 0.5 % Immature Granulocyte # (Auto) 0.04 K/uL (0.00-0.02) Nucleated RBC Absolute Count (auto) 0.00 K/uL (0-0) Nucleated Red Blood Cells % 0.0 % Prothrombin Time 19.7 SECONDS (9.0-12.0) Prothromb Time International Ratio 1.8 (0.9-1.1) Activated Partial Thromboplast Time 33.2 SECONDS (21.0-31.0) Partial Thromboplastin Ratio 1.3 Anion Gap 10.0 mmol/L (3-11) Est Creatinine Clear Calc Drug Dose 10.5 ml/min Estimated GFR () 11.9 Estimated GFR (Non- 10.3 BUN/Creatinine Ratio 8.0 (10-20) Estimated Average Glucose 114 mg/dl Hemoglobin A1c 5.6 % (4.5-5.6) Calcium Level 8.7 mg/dl (8.5-10.1) Allergies Coded Allergies: No Known Allergies (Unverified , 04/20/17) Medications Current Inpatient Medications Medications (Trade) Dose Ordered Sig/Janeth Route Start Time Stop Time Status Last Admin Dose Admin Acetaminophen (Tylenol Tab) 650 mg Q4H PRN PO 07/15/17 20:15 08/14/17 20:14 07/18/17 00:00 650 MG Ondansetron HCl (Zofran Inj) 4 mg Q6H PRN IV 07/15/17 20:15 08/14/17 20:14 07/18/17 08:44 4 MG Nitroglycerin (Nitrostat Tab) 0.4 mg UD PRN SL 07/15/17 20:15 08/14/17 20:14 Allopurinol (Zyloprim Tab) 50 mg QAM PO 07/16/17 09:00 08/15/17 08:59 07/19/17 07:52 50 MG Amiodarone HCl (Cordarone Tab) 200 mg QAM PO 07/16/17 09:00 08/15/17 08:59 07/19/17 07:52 200 MG Clopidogrel Bisulfate (plAVix TAB) 75 mg QPM PO 07/15/17 21:00 08/14/17 20:59 Future Hold 07/16/17 20:40 75 MG Levothyroxine Sodium (Synthroid Tab) 75 mcg DAILYBB PO 07/16/17 06:00 08/15/17 06:59 07/19/17 05:57 75 MCG Multivitamins (Multivitamin Tab) 2 tab QAM PO 07/16/17 09:00 08/15/17 08:59 07/19/17 07:52 2 TAB Oxycodone HCl (Roxicodone Immediate Rel Tab) Pain 5-8 - give 5mg Pain 9... Q4H PRN PO 07/15/17 20:15 07/29/17 20:14 07/18/17 06:16 10 MG Pantoprazole Sodium (Protonix Tab) 40 mg QAM PO 07/16/17 09:00 08/15/17 08:59 07/19/17 07:52 40 MG Rosuvastatin Calcium (Crestor Tab) 10 mg HS PO 07/15/17 21:00 08/14/17 20:59 07/18/17 20:48 10 MG Senna/Docusate Sodium (Senokot S Tab) 1 tab BID PO 07/15/17 21:00 08/14/17 20:59 07/19/17 07:53 1 TAB Sevelamer HCl (Renagel Tab) 800 mg TIDM PO 07/16/17 07:30 08/15/17 07:59 07/19/17 07:51 800 MG Warfarin Sodium (Coumadin Tab) 2 mg QPM PO 07/15/17 21:00 08/14/17 20:59 Future Hold 07/16/17 20:39 2 MG Polyethylene (Miralax Powder Packet) 17 gm BID PO 07/15/17 21:00 08/14/17 20:59 07/19/17 07:51 17 GM Guaifenesin (Mucinex Contr Rel Tab) 600 mg Q12 PO 07/15/17 21:00 08/14/17 20:59 07/19/17 07:51 600 MG Albuterol/ Ipratropium (Duoneb) 3 ml Q2H PRN INH 07/15/17 20:15 08/14/17 20:14 Albuterol/ Ipratropium (Duoneb) 3 ml Q4R INH 07/16/17 00:00 08/15/17 00:00 07/19/17 06:51 3 ML Cefepime HCl (Consult) 1 ea UD PRN N/A 07/15/17 21:45 08/14/17 21:44 Cefepime HCl 500 mg/Syringe 5.5 ml @ 5.5 mls/min Q24H IV 07/16/17 18:00 07/20/17 18:01 07/18/17 18:06 5.5 MLS/MIN Menthol (Nice Artem) 1 artem PRN PRN PO 07/17/17 20:30 08/16/17 20:29 07/17/17 20:30 1 ARTEM Heparin Sodium (Porcine) (Heparin 100 Unit/ml 5ml Flush) 5 ml PRN PRN FLUSH 07/17/17 23:00 08/16/17 22:59 Benzonatate (Tessalon Perles Cap) 100 mg TID PO 07/18/17 14:00 08/17/17 13:59 07/19/17 02:22 100 MG Enteral Nutritional Formula (Boost Breeze Nutritional Drink) 1 box TIDM PO 07/18/17 16:45 08/17/17 16:44 07/18/17 16:59 1 BOX Codeine Phosphate/ Guaifenesin (Robitussin-AC Sugar Free Syrup) 5 ml Q6H PRN PO 07/18/17 16:00 08/17/17 15:59 07/19/17 10:03 5 ML Prednisone (PredniSONE TAB) 30 mg DAILY PO 07/20/17 09:00 08/19/17 08:59 Heparin Sodium/ Dextrose 500 ml @ 15 mls/hr Q24H PRN IV 07/19/17 09:00 08/18/17 08:44 Future Hold 07/19/17 09:58 15 MLS/HR Impression (1) Hypoxia (2) ESRD (end stage renal disease) on dialysis (3) Bronchopneumonia (4) Anemia (5) Aortic stenosis (6) Atrial fibrillation (7) Coronary artery disease (8) Loosening of prosthetic hip Ms. Rahman was admitted with hypoxemia. She has a recent h/o LLL pneumonia. She presented w/ a 3 day h/o cough productive of yellow sputum and progressive dyspnea. CXR revealed a small stable L pleural effusion. There were no infiltrates. Patient has been compliant w/ her MWF HD schedule. She is only 1 kg above her dry weight. Clinically suspect that her dyspnea is related to recurrent bronchopneumonia Recommendations END STAGE RENAL DISEASE: -- HD tomorrow. Will attempt additional 3 L UF -- CXR film reviewed this am: resolution of CHF, L pleural effusion is less prominent -- Vascular surgery planning to remove IJ THC Sunday - Plavix and Warfarin are being held HYPERTENSION: -- Blood pressure is currently controlled. Will monitor ANEMIA: -- Will provide RANJAN w/ dialysis tomorrow ID: -- Patient is currently on Cefipime and Prednisone taper -- Antibiotics as per primary service
[2017-07-19 16:38] LABS: PARTIAL THROMBOPLASTIN RATIO 1.4
[2017-07-19] MEDS ORDERED: HEPARIN IV BOLUS 4,000 UNIT in SYRINGE 0 ML IV ONE (17:00)
[2017-07-19] MEDS: CEFEPIME IV 500 MG in SYRINGE 0 ML IV SCH (18:06)
[2017-07-19] MEDS: ROSUVASTATIN CALCIUM 10 MG TAB PO SCH (21:31)
[2017-07-20] VITALS (33 sets, daily range): BP systolic 102–126; BP diastolic 41–83; PULSE 70–91; TEMP 36.3–37.3; O2SAT 93–100
[2017-07-20] MEDS: ALBUT/IPRATROP 3MG/0.5MG NEB 3 ML VIAL INH SCH ×6 (03:06→22:56)
[2017-07-20] MEDS ORDERED: EPOETIN ALFA INJ 8,000 UNITS in SYRINGE 0 ML IV. SCH (06:00)
[2017-07-20] MEDS: LEVOTHYROXINE 75 MCG TAB PO SCH (06:00)
[2017-07-20] MEDS ORDERED: PARICALCITOL 5 MCG/ML VIAL (ZEMPLAR) IV. SCH (06:00)
[2017-07-20] MEDS ORDERED: EPOETIN ALFA 10,000 UNITS/ML VIAL IV. ONE (06:00)
[2017-07-20 06:18] LABS: HEMATOCRIT 31.5 % (37-47); MEAN CELL VOLUME 98.7 fL (80-100); MEAN CORPUSCULAR HEMOGLOBIN 31.3 pg (25-34); MEAN CORPUSCULAR HGB CONC 31.7 g/dl (32-36); MEAN PLATELET VOLUME 10.2 fL (7.4-10.4); PLATELET COUNT 201 K/uL (130-400); RED BLOOD COUNT 3.19 M/uL (4.2-5.4); WHITE BLOOD COUNT 7.45 K/uL (4.8-10.8)
[2017-07-20 06:35] LABS: INR 1.6 (0.9-1.1); PARTIAL THROMBOPLASTIN RATIO 1.8; PROTHROMBIN TIME (PATIENT) 17.4 SECONDS (9.0-12.0)
[2017-07-20 07:04] LABS: BUN/CREATININE RATIO 9.5 (10-20); CALCIUM 8.6 mg/dl (8.5-10.1); CREATININE 4.66 mg/dl (0.60-1.20); POTASSIUM 3.7 mmol/L (3.5-5.1)
--- NOTE | 2017-07-20 07:17 | Progress Note ---
Progress Note Date of Service Jul 20, 2017. Progress Note Patient for removal of her permcath today. I have discussed the risks options and benefits of the procedure with the patient. The patient understands the risks options and benefits and agrees to the procedure. I have examined the patient, reviewed the History & Physical and in the interval since the performance of the History & Physical I have noted the following changes of clinical significance: No changes noted
[2017-07-20] MEDS: BOOST BREEZE NUTRITION DRINK 1 BOX PO SCH ×3 (07:30→16:15)
[2017-07-20] MEDS: SEVELAMER HYDROCH 800 MG TAB PO SCH ×3 (07:30→16:16)
[2017-07-20] MEDS: POLYETHYLENE (MIRALAX) 17 GM PACK PO SCH ×2 (09:00→21:36)
[2017-07-20] MEDS: DOCUSATE SODIUM/SENNA 50/8.6MG TAB PO SCH ×2 (09:00→21:35)
--- NOTE | 2017-07-20 09:49 | Family Medicine Progress Note ---
Progress Note Date of Service Jul 20, 2017. Subjective Pt evaluation today including: conversation w/ patient, physical exam, chart review, lab review, conversation w/ data management consultant, review of inpatient medication list Pain: none PO Intake: NPO Voiding: no voiding problems Patient still with persistent productive cough No fevers, chills or sweats Denies any chest pain or palpitations Constitutional: No fever, No chills, No sweats Respiratory: + cough, + sputum, No wheezing, No shortness of breath Cardiovascular: No chest pain, No edema, No claudication, No palpitations Abdomen: No pain, No nausea, No vomiting Female : No dysuria, No urinary frequency Heme: No abnormal bleeding/bruising Medications Current Inpatient Medications Medications (Trade) Dose Ordered Sig/Janeth Route Start Time Stop Time Status Last Admin Dose Admin Acetaminophen (Tylenol Tab) 650 mg Q4H PRN PO 07/15/17 20:15 08/14/17 20:14 07/18/17 00:00 650 MG Ondansetron HCl (Zofran Inj) 4 mg Q6H PRN IV 07/15/17 20:15 08/14/17 20:14 07/18/17 08:44 4 MG Nitroglycerin (Nitrostat Tab) 0.4 mg UD PRN SL 07/15/17 20:15 08/14/17 20:14 Allopurinol (Zyloprim Tab) 50 mg QAM PO 07/16/17 09:00 08/15/17 08:59 07/19/17 07:52 50 MG Amiodarone HCl (Cordarone Tab) 200 mg QAM PO 07/16/17 09:00 08/15/17 08:59 07/19/17 07:52 200 MG Clopidogrel Bisulfate (plAVix TAB) 75 mg QPM PO 07/15/17 21:00 08/14/17 20:59 Future Hold 07/16/17 20:40 75 MG Levothyroxine Sodium (Synthroid Tab) 75 mcg DAILYBB PO 07/16/17 06:00 08/15/17 06:59 07/19/17 05:57 75 MCG Multivitamins (Multivitamin Tab) 2 tab QAM PO 07/16/17 09:00 08/15/17 08:59 07/19/17 07:52 2 TAB Oxycodone HCl (Roxicodone Immediate Rel Tab) Pain 5-8 - give 5mg Pain 9... Q4H PRN PO 07/15/17 20:15 07/29/17 20:14 07/18/17 06:16 10 MG Pantoprazole Sodium (Protonix Tab) 40 mg QAM PO 07/16/17 09:00 08/15/17 08:59 07/19/17 07:52 40 MG Rosuvastatin Calcium (Crestor Tab) 10 mg HS PO 07/15/17 21:00 08/14/17 20:59 07/19/17 21:31 10 MG Senna/Docusate Sodium (Senokot S Tab) 1 tab BID PO 07/15/17 21:00 08/14/17 20:59 07/19/17 21:31 1 TAB Sevelamer HCl (Renagel Tab) 800 mg TIDM PO 07/16/17 07:30 08/15/17 07:59 07/19/17 16:45 800 MG Warfarin Sodium (Coumadin Tab) 2 mg QPM PO 07/15/17 21:00 08/14/17 20:59 Future Hold 07/16/17 20:39 2 MG Polyethylene (Miralax Powder Packet) 17 gm BID PO 07/15/17 21:00 08/14/17 20:59 07/19/17 21:31 17 GM Guaifenesin (Mucinex Contr Rel Tab) 600 mg Q12 PO 07/15/17 21:00 08/14/17 20:59 07/19/17 21:31 600 MG Albuterol/ Ipratropium (Duoneb) 3 ml Q2H PRN INH 07/15/17 20:15 08/14/17 20:14 Albuterol/ Ipratropium (Duoneb) 3 ml Q4R INH 07/16/17 00:00 08/15/17 00:00 07/20/17 06:47 3 ML Cefepime HCl (Consult) 1 ea UD PRN N/A 07/15/17 21:45 08/14/17 21:44 Cefepime HCl 500 mg/Syringe 5.5 ml @ 5.5 mls/min Q24H IV 07/16/17 18:00 07/20/17 18:01 07/19/17 18:06 5.5 MLS/MIN Menthol (Nice Artem) 1 artem PRN PRN PO 07/17/17 20:30 08/16/17 20:29 07/17/17 20:30 1 ARTEM Heparin Sodium (Porcine) (Heparin 100 Unit/ml 5ml Flush) 5 ml PRN PRN FLUSH 07/17/17 23:00 08/16/17 22:59 Benzonatate (Tessalon Perles Cap) 100 mg TID PO 07/18/17 14:00 08/17/17 13:59 07/19/17 21:31 100 MG Enteral Nutritional Formula (Boost Breeze Nutritional Drink) 1 box TIDM PO 07/18/17 16:45 08/17/17 16:44 07/19/17 11:44 1 BOX Codeine Phosphate/ Guaifenesin (Robitussin-AC Sugar Free Syrup) 5 ml Q6H PRN PO 07/18/17 16:00 08/17/17 15:59 07/19/17 23:24 5 ML Prednisone (PredniSONE TAB) 30 mg DAILY PO 07/20/17 09:00 08/19/17 08:59 Heparin Sodium/ Dextrose 500 ml @ 17 mls/hr Q24H PRN IV 07/19/17 09:00 08/18/17 08:44 Future Hold 07/19/17 17:10 17 MLS/HR Paricalcitol (Zemplar Inj) 3 mcg TODAY@0600 IV. 07/20/17 06:00 07/20/17 18:00 Heparin Sodium (Porcine) (No Heparin In Dialysis) 1 ea TODAY@0600 N/A 07/20/17 06:00 07/20/17 18:00 Epoetin Joshua 8000 units/Syringe 0.4 ml @ 1 mls/min TODAY@0600 IV. 07/20/17 06:00 07/20/17 18:00 Objective Vital Signs Date Time Temp Pulse Resp B/P (MAP) Pulse Ox O2 Delivery O2 Flow Rate FiO2 07/20/17 09:00 76 105/83 07/20/17 08:50 36.5 81 108/53 (71) 07/20/17 07:23 36.7 91 20 126/66 (86) 100 Nasal Cannula 2.0 07/20/17 06:47 85 24 100 Nasal Cannula 2.0 07/20/17 04:00 Nasal Cannula 2.0 07/20/17 03:54 36.8 86 18 116/66 (83) 96 Nasal Cannula 2.0 07/20/17 03:07 83 24 95 Nasal Cannula 2.0 07/20/17 00:26 36.6 87 18 114/53 (73) 93 Nasal Cannula 2.0 07/20/17 00:00 Nasal Cannula 2.0 07/19/17 23:21 91 16 98 Nasal Cannula 2.0 07/19/17 20:00 Nasal Cannula 2.0 07/19/17 19:43 36.8 79 18 116/69 (85) 96 07/19/17 19:10 85 16 96 Nasal Cannula 2.0 07/19/17 16:01 36.9 76 18 129/72 (91) 98 07/19/17 16:00 Nasal Cannula 2.0 07/19/17 15:27 75 16 99 Nasal Cannula 2.0 07/19/17 12:43 36.8 78 18 118/61 (80) 98 Nasal Cannula 2.0 07/19/17 12:00 Nasal Cannula 2.0 07/19/17 11:17 80 16 98 Nasal Cannula 2.0 Physical Exam Notes: General Appearance: WD/WN, no apparent distress, patient laying quietly in bed and getting dialysis ENT: hearing grossly normal, pharynx normal Neck: no JVD, trachea midline, + pertinent finding (bilateral carotid bruits) Respiratory/Chest: chest non-tender, no accessory muscle use, +pertinent finding (bilateral wheeze in upper and lower lobes) Cardiovascular: regular rate, rhythm, no murmur (systolic murmur 2/6 radiating to carotids) Abdomen: non tender, soft Extremities: no calf tenderness, normal capillary refill, no peripheral edema + pertinent finding (weak peripheral pulses) Neurologic/Psychiatric: oriented x 3 Laboratory Results Results Past 24 Hours Test 07/19/17 15:59 07/19/17 23:23 07/20/17 05:49 07/20/17 05:50 Range/Units Activated Partial Thromboplast Time 37.6 52.0 46.8 21.0-31.0 SECONDS Partial Thromboplastin Ratio 1.4 2.0 1.8 Sodium Level 132 136-145 mmol/L Potassium Level 3.7 3.5-5.1 mmol/L Chloride Level 98 98-107 mmol/L Carbon Dioxide Level 24 21-32 mmol/L Anion Gap 10.0 3-11 mmol/L Blood Urea Nitrogen 44 7-18 mg/dl Creatinine 4.66 0.60-1.20 mg/dl Est Creatinine Clear Calc Drug Dose 8.4 ml/min Estimated GFR () 9.2 Estimated GFR (Non- 7.9 BUN/Creatinine Ratio 9.5 10-20 Random Glucose 136 70-99 mg/dl Calcium Level 8.6 8.5-10.1 mg/dl White Blood Count 7.45 4.8-10.8 K/uL Red Blood Count 3.19 4.2-5.4 M/uL Hemoglobin 10.0 12.0-16.0 g/dL Hematocrit 31.5 37-47 % Mean Corpuscular Volume 98.7 80-100 fL Mean Corpuscular Hemoglobin 31.3 25-34 pg Mean Corpuscular Hemoglobin Concent 31.7 32-36 g/dl RDW Standard Deviation 58.6 36.4-46.3 fL RDW Coefficient of Variation 16.4 11.5-14.5 % Platelet Count 201 130-400 K/uL Mean Platelet Volume 10.2 7.4-10.4 fL Prothrombin Time 17.4 9.0-12.0 SECONDS Prothromb Time International Ratio 1.6 0.9-1.1 Assessment and Plan 87 year old female with CAD, ESRD on dialysis, valvular disease and recent hospitalization with pneumonia presents with worsening shortness of breath over the past 2 days. Patient has been improving and has been transitioned to her 2 L of nasal cannula. She is planning to got for removal of permacath today with Dr. Rocha. Acute hypoxic respiratory failure secondary to asthma exacerbation due to ? pneumonia/bronchitis - O2 to maintain sats > 92% - BiPAP 07/08 as required for comfort if patient feeling short of breath, discussed risks of pneumothorax with this. - incentive spirometry and flutter valve - continue duonebs for pulmonary toilet, - steroids PO with 8 day taper, today day #5 received 30mg - PFT from 2014 with markedly decreased DLCO Acute persistent cough secondary to pneumonia vs bronchitis - tessalon pearls 100mg tid without relief - Guaifenesin 5ml PO q6 added - cough likely sec to PND/GERD - add flonase. Left pleural effusion - Pulmonary - will consider thoracentesis as outpatient per pulm Possible hospital/healthcare acquired pneumonia - Continue IV cefepime. (Started on Vanco+ Cefepime + Levaquin on admission). - MRSA neg - stopped vanco. - levaquin stopped due to prolonged qtc of 512 - procalcitonin ordered and 0.75, pulm recommend continue with AB for 10 day course - rapid influenza neg 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 - Nephrology following - Dr. Quezada following - Dialysis Sunday, Sunday and Sunday Permacath removal - Dr. 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%), Hypertension, Hypercholesterolemia, Combined systolic and diastolic heart failure, Valvular heart disease (moderate to severe , moderate MR) - Continue amiodarone and rosuvastatin - Clopidogrel held due to surgery today - troponin chronically elevated - echo showed type 2 DD, enlarged left atrium, mildly elevated RVSP, mod aortic stenosis Prolonged Qt due to medication side effect - On amiodarone - levaquin stopped - repeat EKG showed prolonged QT of 527 - will repeat today Hx DVT - warfarin held due to surgery - monitor INR - 1.6 this morning - heparin drip low dose started until surgery due to decreased INR GERD - continue pantoprazole 40mg PO daily Gout - Continue allopurinol 50mg PO daily Hypothyroidism - Continue levothyroxine 75 mcg PO daily Dispo - pt/ot ordered - family states that they want her to go home. They have 24 hour care Code Status - Patient wants to be intubated for short term but does not want CPR Diet - NPO until after surgery this afternoon Continued [facility] stay due to: multiple IV medications needed Discharge planning: uncertain Reviewed: Pt Seen/Exam by Me History continues to have cough. Constitutional: denies: fever Respiratory: negative: short of breath Cardiovascular: denies chest pain General Appearance: no apparent distress Respiratory: no respiratory distress, decreased breath sounds Cardiovascular: regular rate, rhythm Neurologic/Psychiatric: alert, oriented x 3 Skin Characteristics: warm/dry Assessment/Plan Resident Physician Supervision Note: I independently interviewed and examined the patient and verified the archuleta history and physical, reviewed labs and image studies, discussed the case with the resident Dr. Collins and agree with the findings and care plan.
[2017-07-20] MEDS: AMIODARONE 200 MG TAB PO SCH (10:11)
[2017-07-20] MEDS: MULTIVITAMIN TAB PO SCH (10:11)
[2017-07-20] MEDS: PANTOprazole SOD 40 MG TAB PO SCH (10:11)
[2017-07-20] MEDS: ALLOPURINOL 100 MG TAB PO SCH (10:11)
[2017-07-20] MEDS: GUAIFENESIN 600 MG TABCR PO SCH ×2 (10:11→21:35)
[2017-07-20] MEDS: BENZONATATE 100MG CAP PO SCH ×3 (10:12→21:35)
[2017-07-20] MEDS: GUAIFENESIN/CODEINE 100MG/10MG 5ML UDC PO PRN ×2 (10:21→16:17)
--- NOTE | 2017-07-20 10:49 | Nephrology Progress Note ---
Nephrology Progress Note Date of Service Jul 20, 2017. Chief Complaint ESRD requiring HD Subjective Ms. Rahman was seen & examined in preparation for HD this morning. She complains of a persistent cough. Case discussed w/ hospitalist group. Primary service is considering chest CT. Ms. Rahman is scheduled for IJ THC removal later today Review of Systems Constitutional: No fever Cardiovascular: No chest pain Respiratory: + productive cough Abdomen: No pain, No nausea, No vomiting Extremities: No leg edema A complete review of systems was performed. Pertinent positives are noted above. All other systems are negative. Vital Signs Last 8 Hrs Date Time Temp Pulse Resp B/P (MAP) Pulse Ox O2 Delivery O2 Flow Rate FiO2 07/20/17 10:00 73 121/51 07/20/17 09:45 73 121/51 07/20/17 09:30 76 112/49 07/20/17 09:15 76 110/52 07/20/17 09:00 76 105/83 07/20/17 08:50 36.5 81 108/53 (71) 07/20/17 07:23 36.7 91 20 126/66 (86) 100 Nasal Cannula 2.0 07/20/17 06:47 85 24 100 Nasal Cannula 2.0 07/20/17 04:00 Nasal Cannula 2.0 07/20/17 03:54 36.8 86 18 116/66 (83) 96 Nasal Cannula 2.0 07/20/17 03:07 83 24 95 Nasal Cannula 2.0 Last Recorded Weight Weight (Kilograms): 70.700 Physical Exam General Appearance: no apparent distress Head: normocephalic, atraumatic Eyes: PERRL, EOMI Neck: no adenopathy, + pertinent finding (IJ THC w/ clean dry dressing in place ) Respiratory/Chest: lungs clear Cardiovascular: regular rate, rhythm Abdomen/GI: normal bowel sounds, non tender, soft Extremities/Musculoskelatal: no calf tenderness, no pedal edema Neurologic/Psych: alert, oriented x 3 Family History Asthma Cancer SISTER (Breast cancer) Chronic kidney disease MOTHER Diabetes mellitus FATHER Heart disease FATHER Hypertension FATHER MOTHER Kidney disease Kidney stones Stroke Negative for CKD / ESRD Social History Smoking Status: Never smoker Drug Use: none Marital Status: Housing Status: lives with family Occupation: retired . Retired. Never a smoker. Laboratory Results Past 24 Hours 07/20/17 05:50 07/20/17 05:49 Test 07/19/17 15:59 07/19/17 23:23 07/20/17 05:49 07/20/17 05:50 Activated Partial Thromboplast Time 37.6 SECONDS (21.0-31.0) 52.0 SECONDS (21.0-31.0) 46.8 SECONDS (21.0-31.0) Partial Thromboplastin Ratio 1.4 2.0 1.8 Anion Gap 10.0 mmol/L (3-11) Est Creatinine Clear Calc Drug Dose 8.4 ml/min Estimated GFR () 9.2 Estimated GFR (Non- 7.9 BUN/Creatinine Ratio 9.5 (10-20) Calcium Level 8.6 mg/dl (8.5-10.1) Red Blood Count 3.19 M/uL (4.2-5.4) Mean Corpuscular Volume 98.7 fL (80-100) Mean Corpuscular Hemoglobin 31.3 pg (25-34) Mean Corpuscular Hemoglobin Concent 31.7 g/dl (32-36) RDW Standard Deviation 58.6 fL (36.4-46.3) RDW Coefficient of Variation 16.4 % (11.5-14.5) Mean Platelet Volume 10.2 fL (7.4-10.4) Prothrombin Time 17.4 SECONDS (9.0-12.0) Prothromb Time International Ratio 1.6 (0.9-1.1) Allergies Coded Allergies: No Known Allergies (Unverified , 04/20/17) Medications Current Inpatient Medications Medications (Trade) Dose Ordered Sig/Janeth Route Start Time Stop Time Status Last Admin Dose Admin Acetaminophen (Tylenol Tab) 650 mg Q4H PRN PO 07/15/17 20:15 08/14/17 20:14 07/18/17 00:00 650 MG Ondansetron HCl (Zofran Inj) 4 mg Q6H PRN IV 07/15/17 20:15 08/14/17 20:14 07/18/17 08:44 4 MG Nitroglycerin (Nitrostat Tab) 0.4 mg UD PRN SL 07/15/17 20:15 08/14/17 20:14 Allopurinol (Zyloprim Tab) 50 mg QAM PO 07/16/17 09:00 08/15/17 08:59 07/20/17 10:11 50 MG Amiodarone HCl (Cordarone Tab) 200 mg QAM PO 07/16/17 09:00 08/15/17 08:59 07/20/17 10:11 200 MG Clopidogrel Bisulfate (plAVix TAB) 75 mg QPM PO 07/15/17 21:00 08/14/17 20:59 Future Hold 07/16/17 20:40 75 MG Levothyroxine Sodium (Synthroid Tab) 75 mcg DAILYBB PO 07/16/17 06:00 08/15/17 06:59 07/19/17 05:57 75 MCG Multivitamins (Multivitamin Tab) 2 tab QAM PO 07/16/17 09:00 08/15/17 08:59 07/20/17 10:11 2 TAB Oxycodone HCl (Roxicodone Immediate Rel Tab) Pain 5-8 - give 5mg Pain 9... Q4H PRN PO 07/15/17 20:15 07/29/17 20:14 07/18/17 06:16 10 MG Pantoprazole Sodium (Protonix Tab) 40 mg QAM PO 07/16/17 09:00 08/15/17 08:59 07/20/17 10:11 40 MG Rosuvastatin Calcium (Crestor Tab) 10 mg HS PO 07/15/17 21:00 08/14/17 20:59 07/19/17 21:31 10 MG Senna/Docusate Sodium (Senokot S Tab) 1 tab BID PO 07/15/17 21:00 08/14/17 20:59 07/19/17 21:31 1 TAB Sevelamer HCl (Renagel Tab) 800 mg TIDM PO 07/16/17 07:30 08/15/17 07:59 07/19/17 16:45 800 MG Warfarin Sodium (Coumadin Tab) 2 mg QPM PO 07/15/17 21:00 08/14/17 20:59 Future Hold 07/16/17 20:39 2 MG Polyethylene (Miralax Powder Packet) 17 gm BID PO 07/15/17 21:00 08/14/17 20:59 07/19/17 21:31 17 GM Guaifenesin (Mucinex Contr Rel Tab) 600 mg Q12 PO 07/15/17 21:00 08/14/17 20:59 07/20/17 10:11 600 MG Albuterol/ Ipratropium (Duoneb) 3 ml Q2H PRN INH 07/15/17 20:15 08/14/17 20:14 Albuterol/ Ipratropium (Duoneb) 3 ml Q4R INH 07/16/17 00:00 08/15/17 00:00 07/20/17 06:47 3 ML Cefepime HCl (Consult) 1 ea UD PRN N/A 07/15/17 21:45 08/14/17 21:44 Cefepime HCl 500 mg/Syringe 5.5 ml @ 5.5 mls/min Q24H IV 07/16/17 18:00 07/20/17 18:01 07/19/17 18:06 5.5 MLS/MIN Menthol (Nice Artem) 1 artem PRN PRN PO 07/17/17 20:30 08/16/17 20:29 07/17/17 20:30 1 ARTEM Heparin Sodium (Porcine) (Heparin 100 Unit/ml 5ml Flush) 5 ml PRN PRN FLUSH 07/17/17 23:00 08/16/17 22:59 Benzonatate (Tessalon Perles Cap) 100 mg TID PO 07/18/17 14:00 08/17/17 13:59 07/20/17 10:12 100 MG Enteral Nutritional Formula (Boost Breeze Nutritional Drink) 1 box TIDM PO 07/18/17 16:45 08/17/17 16:44 07/19/17 11:44 1 BOX Codeine Phosphate/ Guaifenesin (Robitussin-AC Sugar Free Syrup) 5 ml Q6H PRN PO 07/18/17 16:00 08/17/17 15:59 07/20/17 10:21 5 ML Prednisone (PredniSONE TAB) 30 mg DAILY PO 07/20/17 09:00 08/19/17 08:59 07/20/17 10:12 30 MG Heparin Sodium/ Dextrose 500 ml @ 17 mls/hr Q24H PRN IV 07/19/17 09:00 08/18/17 08:44 Future Hold 07/19/17 17:10 17 MLS/HR Paricalcitol (Zemplar Inj) 3 mcg TODAY@0600 IV. 07/20/17 06:00 07/20/17 18:00 Heparin Sodium (Porcine) (No Heparin In Dialysis) 1 ea TODAY@0600 N/A 07/20/17 06:00 07/20/17 18:00 Epoetin Joshua 8000 units/Syringe 0.4 ml @ 1 mls/min TODAY@0600 IV. 07/20/17 06:00 07/20/17 18:00 Fluticasone Propionate (Flonase Nasal [place]) 2 sprays DAILY NA 07/20/17 10:30 08/19/17 10:29 Miscellaneous (Stop Order) 1 ea TODAY@1100 ONCE N/A 07/20/17 11:00 07/20/17 11:01 Impression (1) Hypoxia (2) ESRD (end stage renal disease) on dialysis (3) Bronchopneumonia (4) Anemia (5) Aortic stenosis (6) Atrial fibrillation (7) Coronary artery disease (8) Loosening of prosthetic hip Ms. Rahman was admitted with hypoxemia. She has a recent h/o LLL pneumonia. She presented w/ a 3 day h/o cough productive of yellow sputum and progressive dyspnea. CXR revealed a small stable L pleural effusion. There were no infiltrates. Patient has been compliant w/ her MWF HD schedule. She is only 1 kg above her dry weight. Clinically suspect that her dyspnea is related to recurrent bronchopneumonia Recommendations END STAGE RENAL DISEASE: -- HD this am. Will attempt additional 3 L UF -- Vascular surgery to remove IJ THC this afternoon - Plavix and Warfarin are being held HYPERTENSION: -- Blood pressure is currently controlled. Will monitor ANEMIA: -- Will provide RANJAN w/ dialysis today ID: -- Patient is currently on Cefipime and Prednisone taper -- Antibiotics as per primary service
[2017-07-20] MEDS ORDERED: [UNRECOGNIZED DRUG - REMARK] ONE (11:00)
[2017-07-20] MEDS ORDERED: LIDOCAINE HCL 1% 20 ML VIAL ONE (13:24)
[2017-07-20] MEDS ORDERED: FENTANYL CITRATE INJ 50 MCG/1 ML 2 ML VIAL ONE (13:25)
[2017-07-20] MEDS ORDERED: MIDAZOLAM HCL 1 MG/ML 2ML VIAL ONE (13:25)
[2017-07-20] MEDS ORDERED: LIDOCAINE HCL 1% 20 ML VIAL INJ ONE (13:41)
--- NOTE | 2017-07-20 13:47 | [facility] Operative Report ---
Operative Report Operative Date Jul 20, 2017. Pre-Operative Diagnosis Functioning fistula Post-Operative Diagnosis Same Procedure(s) Performed Removal of permcath Surgeon Josefina Junior Marketing Associate Surgeon(s) none Estimated Blood Loss 5cc Findings cuff and catheter removed Specimens catheter Anesthesia Local Complication(s) None Disposition Indications This is an 87-year-old female with a functioning fistula. She has a PermCath cath in place. She is here for removal of the PermCath. I have discussed the risks options and benefits of the procedure with the patient. The patient understands the risks options and benefits and agrees to the procedure. Description of Procedure The patient was taken to the angio suite and placed in the supine position. The left side of the neck, chest wall and catheter were prepped and draped in a sterile manner. Local anesthesia was then accomplished. Using sharp and blunt dissection, the cuff of the permcath was freed up from the surrounding fibrous tissue. The permcath and cuff were completely removed. Pressure was then applied and adequate hemostasis was obtained. A sterile dressing was then applied. The patient left the angio suite in good condition and tolerated the procedure well. I attest to the content of the Intraoperative Record and any orders documented therein. Any exceptions are noted below.
[2017-07-20] MEDS ORDERED: [UNRECOGNIZED DRUG - REMARK] SCH (16:00)
[2017-07-20] MEDS: FLUTICASONE PROPIONATE NA SPR 16 GM BTL SCH (16:14)
[2017-07-20] MEDS: CEFEPIME IV 500 MG in SYRINGE 0 ML IV SCH (17:57)
[2017-07-20] MEDS: HEPARIN 25,000 UNIT/500ML D5W 500 ML IV PRN (21:31)
[2017-07-20] MEDS: ROSUVASTATIN CALCIUM 10 MG TAB PO SCH (21:35)
[2017-07-20 23:15] LABS: PARTIAL THROMBOPLASTIN RATIO 1.6
[2017-07-20] MEDS ORDERED: HEPARIN IV BOLUS 2,000 UNIT in SYRINGE 0 ML IV ONE (23:45)
[2017-07-21] VITALS (12 sets, daily range): BP systolic 102–146; BP diastolic 47–59; PULSE 71–85; TEMP 36.3–36.7; O2SAT 90–100
[2017-07-21] MEDS: ALBUT/IPRATROP 3MG/0.5MG NEB 3 ML VIAL INH SCH ×6 (04:06→23:44)
[2017-07-21] MEDS: LEVOTHYROXINE 75 MCG TAB PO SCH (05:41)
[2017-07-21 06:07] LABS: HEMATOCRIT 33.6 % (37-47); MEAN CELL VOLUME 98.8 fL (80-100); MEAN CORPUSCULAR HEMOGLOBIN 31.2 pg (25-34); MEAN CORPUSCULAR HGB CONC 31.5 g/dl (32-36); MEAN PLATELET VOLUME 10.3 fL (7.4-10.4); PLATELET COUNT 200 K/uL (130-400); WHITE BLOOD COUNT 7.25 K/uL (4.8-10.8)
[2017-07-21 06:34] LABS: INR 1.4 (0.9-1.1); PARTIAL THROMBOPLASTIN RATIO 1.7
[2017-07-21 06:59] LABS: BUN/CREATININE RATIO 7.7 (10-20); CALCIUM 8.6 mg/dl (8.5-10.1); CREATININE 3.67 mg/dl (0.60-1.20); POTASSIUM 3.6 mmol/L (3.5-5.1)
[2017-07-21] MEDS ORDERED: HEPARIN IV BOLUS 2,000 UNIT in SYRINGE 0 ML IV ONE (07:00)
[2017-07-21] MEDS: BOOST BREEZE NUTRITION DRINK 1 BOX PO SCH ×3 (07:14→16:45)
[2017-07-21] MEDS: ALLOPURINOL 100 MG TAB PO SCH (07:15)
[2017-07-21] MEDS: AMIODARONE 200 MG TAB PO SCH (07:15)
[2017-07-21] MEDS: MULTIVITAMIN TAB PO SCH (07:16)
[2017-07-21] MEDS: PANTOprazole SOD 40 MG TAB PO SCH (07:16)
[2017-07-21] MEDS: FLUTICASONE PROPIONATE NA SPR 16 GM BTL SCH (07:16)
[2017-07-21] MEDS: GUAIFENESIN 600 MG TABCR PO SCH ×2 (07:17→21:00)
[2017-07-21] MEDS: DOCUSATE SODIUM/SENNA 50/8.6MG TAB PO SCH ×2 (07:17→21:00)
[2017-07-21] MEDS: SEVELAMER HYDROCH 800 MG TAB PO SCH ×3 (07:17→17:31)
[2017-07-21] MEDS: BENZONATATE 100MG CAP PO SCH ×3 (07:18→21:00)
[2017-07-21] MEDS: POLYETHYLENE (MIRALAX) 17 GM PACK PO SCH ×2 (07:18→21:00)
[2017-07-21] MEDS ORDERED: SODIUM CHLORIDE 0.65% NA SOLN 45 ML (OCEAN) ONE (07:20)
[2017-07-21] MEDS ORDERED: SODIUM CHLORIDE 0.65% NA SOLN 45 ML (OCEAN) PRN (07:30)
[2017-07-21] MEDS ORDERED: NURSING DECISION MEDICATION ORDER SCH (07:30)
--- NOTE | 2017-07-21 10:11 | DIAGNOSTIC IMAGING REPORT ---
CHEST ONE VIEW PORTABLE HISTORY: cough COMPARISON: Chest 07/18/2017. FINDINGS: The heart remains mildly enlarged. Small left and trace right pleural effusion persist. Left basilar densities are again noted. There is mild central pulmonary vascular congestion without overt edema. No pneumothorax. Right right hilar prominence persists. IMPRESSION: 1. No significant change compared to the prior studies. 2. Mild pulmonary vascular congestion without overt edema and cardiomegaly. 3. Trace bilateral pleural effusions and left basilar densities. Electronically signed by: Trell Cannon M.D. 07/21/2017 10:10 AM Dictated Date/Time: 07/21/2017 10:08 AM
--- NOTE | 2017-07-21 11:16 | Nephrology Progress Note ---
Nephrology Progress Note Date of Service Jul 21, 2017. Chief Complaint ESRD requiring HD Subjective Ms. Rahman was seen & examined in the ICU this morning. She was dialyzed yesterday for 3.5 hours w/ 2.7 L UF. There were no complications. AVF was functioning well. Following HD she had her L IJ THC removed. Ms. Rahman has a persistent cough. Review of Systems Constitutional: No fever Cardiovascular: No chest pain Respiratory: + productive cough, No dyspnea at rest Abdomen: No pain, No nausea, No vomiting Extremities: No leg edema A complete review of systems was performed. Pertinent positives are noted above. All other systems are negative. Vital Signs Last 8 Hrs Date Time Temp Pulse Resp B/P (MAP) Pulse Ox O2 Delivery O2 Flow Rate FiO2 07/21/17 08:14 36.6 80 19 108/47 (67) 97 Room Air 07/21/17 07:01 85 16 90 Room Air 07/21/17 04:07 81 16 93 Nasal Cannula 2.0 07/21/17 04:00 Nasal Cannula 2.0 07/21/17 03:20 36.3 83 20 113/47 (69) 93 Nasal Cannula Last Recorded Weight Weight (Kilograms): 69.200 Physical Exam General Appearance: no apparent distress Head: atraumatic Eyes: PERRL, EOMI Neck: no adenopathy Respiratory/Chest: lungs clear Cardiovascular: regular rate, rhythm Abdomen/GI: normal bowel sounds, non tender, soft Extremities/Musculoskelatal: no calf tenderness, no pedal edema, + pertinent finding (AVF + bruit) Neurologic/Psych: alert, oriented x 3 Family History Asthma Cancer SISTER (Breast cancer) Chronic kidney disease MOTHER Diabetes mellitus FATHER Heart disease FATHER Hypertension FATHER MOTHER Kidney disease Kidney stones Stroke Negative for CKD / ESRD Social History Smoking Status: Never smoker Drug Use: none Marital Status: Housing Status: lives with family Occupation: retired . Retired. Never a smoker. Laboratory Results Past 24 Hours 07/21/17 05:45 07/21/17 05:45 Test 07/20/17 22:26 07/21/17 05:45 07/21/17 09:13 Activated Partial Thromboplast Time 41.4 SECONDS (21.0-31.0) 44.0 SECONDS (21.0-31.0) Partial Thromboplastin Ratio 1.6 1.7 Red Blood Count 3.40 M/uL (4.2-5.4) Mean Corpuscular Volume 98.8 fL (80-100) Mean Corpuscular Hemoglobin 31.2 pg (25-34) Mean Corpuscular Hemoglobin Concent 31.5 g/dl (32-36) RDW Standard Deviation 57.7 fL (36.4-46.3) RDW Coefficient of Variation 16.3 % (11.5-14.5) Mean Platelet Volume 10.3 fL (7.4-10.4) Nucleated RBC Absolute Count (auto) 0.06 K/uL (0-0) Nucleated Red Blood Cells % 0.8 % Prothrombin Time 15.0 SECONDS (9.0-12.0) Prothromb Time International Ratio 1.4 (0.9-1.1) Anion Gap 9.0 mmol/L (3-11) Est Creatinine Clear Calc Drug Dose 10.5 ml/min Estimated GFR () 12.3 Estimated GFR (Non- 10.6 BUN/Creatinine Ratio 7.7 (10-20) Calcium Level 8.6 mg/dl (8.5-10.1) Troponin I 0.078 ng/ml (0-0.045) Allergies Coded Allergies: No Known Allergies (Unverified , 04/20/17) Medications Current Inpatient Medications Medications (Trade) Dose Ordered Sig/Janeth Route Start Time Stop Time Status Last Admin Dose Admin Acetaminophen (Tylenol Tab) 650 mg Q4H PRN PO 07/15/17 20:15 08/14/17 20:14 07/18/17 00:00 650 MG Ondansetron HCl (Zofran Inj) 4 mg Q6H PRN IV 07/15/17 20:15 08/14/17 20:14 07/18/17 08:44 4 MG Nitroglycerin (Nitrostat Tab) 0.4 mg UD PRN SL 07/15/17 20:15 08/14/17 20:14 Allopurinol (Zyloprim Tab) 50 mg QAM PO 07/16/17 09:00 08/15/17 08:59 07/21/17 07:15 50 MG Amiodarone HCl (Cordarone Tab) 200 mg QAM PO 07/16/17 09:00 08/15/17 08:59 07/21/17 07:15 200 MG Clopidogrel Bisulfate (plAVix TAB) 75 mg QPM PO 07/15/17 21:00 08/14/17 20:59 Future hold 07/16/17 20:40 75 MG Levothyroxine Sodium (Synthroid Tab) 75 mcg DAILYBB PO 07/16/17 06:00 08/15/17 06:59 07/21/17 05:41 75 MCG Multivitamins (Multivitamin Tab) 2 tab QAM PO 07/16/17 09:00 08/15/17 08:59 07/21/17 07:16 2 TAB Oxycodone HCl (Roxicodone Immediate Rel Tab) Pain 5-8 - give 5mg Pain 9... Q4H PRN PO 07/15/17 20:15 07/29/17 20:14 07/18/17 06:16 10 MG Pantoprazole Sodium (Protonix Tab) 40 mg QAM PO 07/16/17 09:00 08/15/17 08:59 07/21/17 07:16 40 MG Rosuvastatin Calcium (Crestor Tab) 10 mg HS PO 07/15/17 21:00 08/14/17 20:59 07/20/17 21:35 10 MG Senna/Docusate Sodium (Senokot S Tab) 1 tab BID PO 07/15/17 21:00 08/14/17 20:59 07/21/17 07:17 1 TAB Sevelamer HCl (Renagel Tab) 800 mg TIDM PO 07/16/17 07:30 08/15/17 07:59 07/21/17 07:17 800 MG Warfarin Sodium (Coumadin Tab) 2 mg QPM PO 07/15/17 21:00 08/14/17 20:59 Future Hold 07/16/17 20:39 2 MG Polyethylene (Miralax Powder Packet) 17 gm BID PO 07/15/17 21:00 08/14/17 20:59 07/21/17 07:18 17 GM Guaifenesin (Mucinex Contr Rel Tab) 600 mg Q12 PO 07/15/17 21:00 08/14/17 20:59 07/21/17 07:17 600 MG Albuterol/ Ipratropium (Duoneb) 3 ml Q2H PRN INH 07/15/17 20:15 08/14/17 20:14 Albuterol/ Ipratropium (Duoneb) 3 ml Q4R INH 07/16/17 00:00 08/15/17 00:00 07/21/17 11:07 3 ML Cefepime HCl (Consult) 1 ea UD PRN N/A 07/15/17 21:45 08/14/17 21:44 Cefepime HCl 500 mg/Syringe 5.5 ml @ 5.5 mls/min Q24H IV 07/16/17 18:00 07/24/17 17:59 07/20/17 17:57 5.5 MLS/MIN Menthol (Nice Artem) 1 artem PRN PRN PO 07/17/17 20:30 08/16/17 20:29 07/17/17 20:30 1 ARTEM Heparin Sodium (Porcine) (Heparin 100 Unit/ml 5ml Flush) 5 ml PRN PRN FLUSH 07/17/17 23:00 08/16/17 22:59 Benzonatate (Tessalon Perles Cap) 100 mg TID PO 07/18/17 14:00 08/17/17 13:59 07/21/17 07:18 100 MG Enteral Nutritional Formula (Boost Breeze Nutritional Drink) 1 box TIDM PO 07/18/17 16:45 08/17/17 16:44 07/21/17 07:14 1 BOX Codeine Phosphate/ Guaifenesin (Robitussin-AC Sugar Free Syrup) 5 ml Q6H PRN PO 07/18/17 16:00 08/17/17 15:59 07/20/17 16:17 5 ML Prednisone (PredniSONE TAB) 30 mg DAILY PO 07/20/17 09:00 08/19/17 08:59 07/21/17 07:17 30 MG Heparin Sodium/ Dextrose 500 ml @ 19 mls/hr Q24H PRN IV 07/19/17 09:00 08/18/17 08:44 Future hold 07/20/17 21:31 17 MLS/HR Fluticasone Propionate (Flonase Nasal [place]) 2 sprays DAILY NA 07/20/17 10:30 08/19/17 10:29 07/21/17 07:16 2 SPRAYS Sodium Chloride ([place] Nasal [place]) 1 sprays PRN PRN NA 07/21/17 07:30 08/20/17 07:29 Impression (1) Hypoxia (2) ESRD (end stage renal disease) on dialysis (3) Bronchopneumonia (4) Anemia (5) Aortic stenosis (6) Atrial fibrillation (7) Coronary artery disease (8) Loosening of prosthetic hip Ms. Rahman was admitted with hypoxemia. She has a recent h/o LLL pneumonia. She presented w/ a 3 day h/o cough productive of yellow sputum and progressive dyspnea. CXR revealed a small stable L pleural effusion. There were no infiltrates. Patient has been compliant w/ her MWF HD schedule. She is only 1 kg above her dry weight. Clinically suspect that her dyspnea is related to recurrent bronchopneumonia Recommendations END STAGE RENAL DISEASE: -- Volume status and electrolyte balance are acceptable. No acute indication for HD today. Will reassess in am -- CXR film reviewed this am: Pulmonary edema and L pleural effusion are markedly improved. Will set EDW at 69 kg. -- IJ THC removed yesterday. OK to resume Warfarin and Plavix HYPERTENSION: -- Blood pressure is currently controlled. Will monitor ANEMIA: -- Will provide RANJAN w/ dialysis treatments (target Hgb 10 - 11) ID: -- Patient is currently on Cefipime and Prednisone taper -- Antibiotics as per primary service
--- NOTE | 2017-07-21 11:55 | Family Medicine Progress Note ---
Progress Note Date of Service Jul 21, 2017. Subjective Pt evaluation today including: conversation w/ patient, physical exam, chart review, lab review, review of studies, review of inpatient medication list Pain: denies pain Pur nurse, telemetry noted ST depression. EKG performed showing ST elevation compared to previous in V2. Patient denies any Chest Pain, palpitation, calf tenderness. She does continue to report dry cough. SOB is at baseline Constitutional: No fever, No chills Respiratory: + cough, + shortness of breath, No sputum, No wheezing Cardiovascular: No chest pain, No edema, No palpitations Abdomen: No pain, No nausea, No vomiting, No diarrhea Female : + problem reported (on Dialysis) Skin: No rash, No itch Medications Current Inpatient Medications Medications (Trade) Dose Ordered Sig/Janeth Route Start Time Stop Time Status Last Admin Dose Admin Acetaminophen (Tylenol Tab) 650 mg Q4H PRN PO 07/15/17 20:15 08/14/17 20:14 07/18/17 00:00 650 MG Ondansetron HCl (Zofran Inj) 4 mg Q6H PRN IV 07/15/17 20:15 08/14/17 20:14 07/18/17 08:44 4 MG Nitroglycerin (Nitrostat Tab) 0.4 mg UD PRN SL 07/15/17 20:15 08/14/17 20:14 Allopurinol (Zyloprim Tab) 50 mg QAM PO 07/16/17 09:00 08/15/17 08:59 07/21/17 07:15 50 MG Amiodarone HCl (Cordarone Tab) 200 mg QAM PO 07/16/17 09:00 08/15/17 08:59 07/21/17 07:15 200 MG Clopidogrel Bisulfate (plAVix TAB) 75 mg QPM PO 07/15/17 21:00 08/14/17 20:59 Future hold 07/16/17 20:40 75 MG Levothyroxine Sodium (Synthroid Tab) 75 mcg DAILYBB PO 07/16/17 06:00 08/15/17 06:59 07/21/17 05:41 75 MCG Multivitamins (Multivitamin Tab) 2 tab QAM PO 07/16/17 09:00 08/15/17 08:59 07/21/17 07:16 2 TAB Oxycodone HCl (Roxicodone Immediate Rel Tab) Pain 5-8 - give 5mg Pain 9... Q4H PRN PO 07/15/17 20:15 07/29/17 20:14 07/18/17 06:16 10 MG Pantoprazole Sodium (Protonix Tab) 40 mg QAM PO 07/16/17 09:00 08/15/17 08:59 07/21/17 07:16 40 MG Rosuvastatin Calcium (Crestor Tab) 10 mg HS PO 07/15/17 21:00 08/14/17 20:59 07/20/17 21:35 10 MG Senna/Docusate Sodium (Senokot S Tab) 1 tab BID PO 07/15/17 21:00 08/14/17 20:59 07/21/17 07:17 1 TAB Sevelamer HCl (Renagel Tab) 800 mg TIDM PO 07/16/17 07:30 08/15/17 07:59 07/21/17 07:17 800 MG Warfarin Sodium (Coumadin Tab) 2 mg QPM PO 07/15/17 21:00 08/14/17 20:59 Future Hold 07/16/17 20:39 2 MG Polyethylene (Miralax Powder Packet) 17 gm BID PO 07/15/17 21:00 08/14/17 20:59 07/21/17 07:18 17 GM Guaifenesin (Mucinex Contr Rel Tab) 600 mg Q12 PO 07/15/17 21:00 08/14/17 20:59 07/21/17 07:17 600 MG Albuterol/ Ipratropium (Duoneb) 3 ml Q2H PRN INH 07/15/17 20:15 08/14/17 20:14 Albuterol/ Ipratropium (Duoneb) 3 ml Q4R INH 07/16/17 00:00 08/15/17 00:00 07/21/17 11:07 3 ML Cefepime HCl (Consult) 1 ea UD PRN N/A 07/15/17 21:45 08/14/17 21:44 Cefepime HCl 500 mg/Syringe 5.5 ml @ 5.5 mls/min Q24H IV 07/16/17 18:00 07/24/17 17:59 07/20/17 17:57 5.5 MLS/MIN Menthol (Nice Darcie) 1 darcie PRN PRN PO 07/17/17 20:30 08/16/17 20:29 07/17/17 20:30 1 DARCIE Heparin Sodium (Porcine) (Heparin 100 Unit/ml 5ml Flush) 5 ml PRN PRN FLUSH 07/17/17 23:00 08/16/17 22:59 Benzonatate (Tessalon Perles Cap) 100 mg TID PO 07/18/17 14:00 08/17/17 13:59 07/21/17 07:18 100 MG Enteral Nutritional Formula (Boost Breeze Nutritional Drink) 1 box TIDM PO 07/18/17 16:45 08/17/17 16:44 07/21/17 07:14 1 BOX Codeine Phosphate/ Guaifenesin (Robitussin-AC Sugar Free Syrup) 5 ml Q6H PRN PO 07/18/17 16:00 08/17/17 15:59 07/20/17 16:17 5 ML Prednisone (PredniSONE TAB) 30 mg DAILY PO 07/20/17 09:00 08/19/17 08:59 07/21/17 07:17 30 MG Heparin Sodium/ Dextrose 500 ml @ 19 mls/hr Q24H PRN IV 07/19/17 09:00 08/18/17 08:44 Future hold 07/20/17 21:31 17 MLS/HR Fluticasone Propionate (Flonase Nasal Umbarger) 2 sprays DAILY NA 07/20/17 10:30 08/19/17 10:29 07/21/17 07:16 2 SPRAYS Sodium Chloride ([place] Nasal Umbarger) 1 sprays PRN PRN NA 07/21/17 07:30 08/20/17 07:29 Objective Vital Signs Date Time Temp Pulse Resp B/P (MAP) Pulse Ox O2 Delivery O2 Flow Rate FiO2 07/21/17 11:07 80 22 98 Nasal Cannula 2.0 07/21/17 08:14 36.6 80 19 108/47 (67) 97 Room Air 07/21/17 07:01 85 16 90 Room Air 07/21/17 04:07 81 16 93 Nasal Cannula 2.0 07/21/17 04:00 Nasal Cannula 2.0 07/21/17 03:20 36.3 83 20 113/47 (69) 93 Nasal Cannula 07/21/17 00:00 Nasal Cannula 2.0 07/20/17 23:44 36.8 80 18 116/46 (69) 96 Nasal Cannula 2.0 Humidified Oxygen 07/20/17 22:57 80 16 98 Nasal Cannula 2.0 07/20/17 20:00 Nasal Cannula 2.0 07/20/17 19:33 36.6 76 19 109/41 (63) 98 Nasal Cannula 2.0 07/20/17 19:01 77 16 98 Nasal Cannula 2.0 07/20/17 16:00 Nasal Cannula 2.0 07/20/17 15:49 37.3 78 22 102/42 (62) 99 Nasal Cannula 2.0 07/20/17 15:00 82 110/43 (65) 07/20/17 14:48 75 16 98 Nasal Cannula 2.0 07/20/17 14:45 81 114/52 (72) 07/20/17 14:30 81 122/45 (70) 07/20/17 14:15 36.8 75 18 122/45 (70) 98 Nasal Cannula 2.0 Humidified Oxygen 07/20/17 13:08 36.3 75 106/45 (65) 07/20/17 12:30 70 105/44 07/20/17 12:15 36.3 71 20 104/47 (66) 97 Nasal Cannula 2.0 07/20/17 12:15 71 104/47 07/20/17 12:00 76 109/49 07/20/17 12:00 Nasal Cannula 2.0 Physical Exam General Appearance: WD/WN, no apparent distress Neck: supple, no adenopathy Respiratory/Chest: lungs clear, normal breath sounds, no respiratory distress Cardiovascular: regular rate, rhythm, no murmur Abdomen: normal bowel sounds, non tender, soft Extremities: non-tender, no pedal edema, + pertinent finding (scattered ecchymoses UE) Neurologic/Psychiatric: alert, normal mood/affect, oriented x 3 Skin: warm/dry, no rash Laboratory Results Results Past 24 Hours Test 07/20/17 22:26 07/21/17 05:45 07/21/17 09:13 07/21/17 14:18 Range/Units Activated Partial Thromboplast Time 41.4 44.0 47.2 21.0-31.0 SECONDS Partial Thromboplastin Ratio 1.6 1.7 1.8 White Blood Count 7.25 4.8-10.8 K/uL Red Blood Count 3.40 4.2-5.4 M/uL Hemoglobin 10.6 12.0-16.0 g/dL Hematocrit 33.6 37-47 % Mean Corpuscular Volume 98.8 80-100 fL Mean Corpuscular Hemoglobin 31.2 25-34 pg Mean Corpuscular Hemoglobin Concent 31.5 32-36 g/dl RDW Standard Deviation 57.7 36.4-46.3 fL RDW Coefficient of Variation 16.3 11.5-14.5 % Platelet Count 200 130-400 K/uL Mean Platelet Volume 10.3 7.4-10.4 fL Nucleated RBC Absolute Count (auto) 0.06 0-0 K/uL Nucleated Red Blood Cells % 0.8 % Prothrombin Time 15.0 9.0-12.0 SECONDS Prothromb Time International Ratio 1.4 0.9-1.1 Sodium Level 132 136-145 mmol/L Potassium Level 3.6 3.5-5.1 mmol/L Chloride Level 97 98-107 mmol/L Carbon Dioxide Level 26 21-32 mmol/L Anion Gap 9.0 3-11 mmol/L Blood Urea Nitrogen 28 7-18 mg/dl Creatinine 3.67 0.60-1.20 mg/dl Est Creatinine Clear Calc Drug Dose 10.5 ml/min Estimated GFR () 12.3 Estimated GFR (Non- 10.6 BUN/Creatinine Ratio 7.7 10-20 Random Glucose 168 70-99 mg/dl Calcium Level 8.6 8.5-10.1 mg/dl Troponin I 0.078 0-0.045 ng/ml Assessment and Plan 87 yo F w/ hx of ESRD on Dialysis, Hx of CAD/TX s/p CABG s/p RCA stenting HTN, T2DM, recent hospitalization for PNA, PFT from 2014 with markedly decreased DLCO, presenting with progressive SOB found to have Acute Hypoxic Resp Failure, now clinically improved, SOB at baseline. Acute hypoxic respiratory failure: likely secondary to asthma exacerbation - O2 to maintain sats > 92%, saturating well on 2L wean as tolerated - incentive spirometry/pulmonary toilet - Continue Prednisone day 6/8 taper, given 30 mg today Possible hospital/healthcare acquired pneumonia - Continue IV cefepime (Day 5) for 10 total days. (previously on Vanco+ Cefepime + Levaquin at admission). - Levaquin d/c'd 07/17 due to prolonged qtc of 512, Vanc d/c'd 07/15 due to neg MRSA swab - procalcitonin mildly elevated at 0.75, rapid influenza neg Cough secondary PND/GERD - Continue Tessalon pearls 100mg tid without relief - Continue Guaifenesin 5ml PO q6 - Continue Flonase - nasal spray Left pleural effusion -improving - Outpatient thoracentesis to be considered per Pulmonology if needed 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 - Nephrology inout appreciated - Cr 3.67 - Dialysis Sunday, Sunday and Sunday Permacath removal -s/p permacath removal 07/20 - plan to restart warfarin - continue to monitor PT/INR Abnormal EKG - ST changes compared to previous. Repeat troponin slightly more elevated from .05 to.07 - elevated troponin confounded by ESRD -patient remains asymptomatic -Cardiology consulted for further input CAD (s/p CABG 1996, stent to RCA 2006, obstructed SVGs to the diagonal and ramus branches), Hx Multiple NSTEMIs and STEMI, Paroxysmal AFib, Ischemic 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 to severe , mod. MR) - Continue amiodarone and rosuvastatin - Plan to restart Clopidogrel - troponin persistently elevated as stated above - echo showed type 2 DD, enlarged left atrium, mildly elevated RVSP, mod aortic stenosis Prolonged Qt due to medication side effect - On amiodarone - levaquin stopped - repeat EKG showed prolonged QT of 527 - will repeat today Hx DVT - warfarin previously held due to surgery -Plan to restart - monitor INR GERD - continue pantoprazole 40mg PO daily Gout - Continue allopurinol 50mg PO daily Hypothyroidism - Continue levothyroxine 75 mcg PO daily Dispo - pt/ot - Home with home health Continued [facility] stay due to: multiple IV medications needed Discharge planning: home with home health Resident Tracking Resident Involvement: Resident Care Provided Care Provided: Adult Hospital Medicine Reviewed: Pt Seen/Exam by Me History cough better today breathing has been good denies heartburn Nursing noted ST segment elevation/depression on monitor. No chest pain. EKG done Constitutional: denies: fever Cardiovascular: denies chest pain Gastrointestinal/Abdominal: negative: abdominal pain General Appearance: no apparent distress Respiratory: no respiratory distress, decreased breath sounds Cardiovascular: regular rate, rhythm Neurologic/Psychiatric: alert, oriented x 3 Skin Characteristics: warm/dry Assessment/Plan Resident Physician Supervision Note: I independently interviewed and examined the patient and verified the archule[place] history and physical, reviewed labs and image studies, discussed the case with the resident Dr. Tian and agree with the findings and care plan.
[2017-07-21 14:50] LABS: PARTIAL THROMBOPLASTIN RATIO 1.8
--- NOTE | 2017-07-21 16:25 | CARDIOLOGY CONSULTATION ---
DATE OF CONSULTATION: 07/21/2017 DATE OF CONSULTATION: 07/21/2017 TIME: 15:35 p.m. CONSULTING PHYSICIAN: Dr. Sanches. REASON FOR CONSULTATION: ST elevations. PRIMARY KELP GATHERER: Dr. Vipul Hernandez. HISTORY OF PRESENT ILLNESS: Ms. Rahman is a pleasant 87-year-old female with a history significant for CAD status post CABG x4 in 1996, PCI with RCA stent in 2006 with known obstructive vein graft to diagonal and ramus branches at that time, diastolic CHF, valvular heart disease including aortic stenosis and mitral regurgitation, dyslipidemia, type 2 diabetes, end-stage renal disease on hemodialysis, paroxysmal atrial fibrillation on anticoagulation therapy and antiarrhythmic therapy, presented to [facility] on 07/15/2017 with shortness of breath. She was found to be hypoxic according to records and she was treated with antibiotics and steroids. She continues with hemodialysis with Dr. Quezada. She states that her shortness of breath is much better. She said she had edema which is also much better. She underwent dialysis yesterday. She has had a dry cough which is still present intermittently, but better than presentation. She denies any chest pain, syncope, near syncope, or palpitations. She denies any recent melena, hematochezia, hematuria, but does have ecchymosis of her upper extremities. She states that she uses home supplemental oxygen at home 2 liters at night and also as needed throughout the day. Earlier this morning on telemetry there was felt to be a change in ST segments and therefore ECG was ordered by the primary hospitalist service. ECG was done at 7:54 a.m. today which demonstrated sinus rhythm with first degree AV block with a nonspecific IVCD without significant change from prior ECG yesterday. Another ECG was done shortly after at 9:11 a.m. which once again had no significant change from prior ECG demonstrating nonspecific IVCD and sinus rhythm first degree block. REVIEW OF SYSTEMS: As above and review of systems otherwise unremarkable. PAST MEDICAL HISTORY: 1. History of ischemic cardiomyopathy. 2. Systolic and diastolic CHF. 3. End-stage renal disease on dialysis. 4. Coronary artery disease status post CABG x4 in 1996 and PCI to RCA in 2006. Known occluded SVG to diagonal and ramus vessels. 5. Hypertension. 6. Atrial fibrillation. 7. Dyslipidemia. 8. Aortic stenosis. 9. Mitral regurgitation. 10. Type 2 diabetes. 11. COPD. 12. DVT. 13. GERD. 14. Esophageal dysmotility and stricture. 15. Hypothyroidism. 16. History of retroperitoneal bleed. 17. Hypoparathyroidism. CURRENT MEDICATIONS: Include amiodarone 200 mg daily, cefepime, Plavix 75 mg daily, levothyroxine 75 mcg daily, Protonix 40 mg daily, prednisone 30 mg daily, rosuvastatin 10 mg daily, heparin drip. ALLERGIES: No known drug allergies. SOCIAL HISTORY: Denies tobacco or alcohol abuse. She is . She has 6 children. Her granddaughter lives with her at home. FAMILY HISTORY: Father had heart disease. PHYSICAL EXAMINATION: VITAL SIGNS: Temperature 36.7 degrees, heart rate 78 beats per minute, respiration rate 19, blood pressure 120/57 mmHg, oxygen saturation 100% on 2 liters per nasal cannula. I's and O's negative 2.3 liters yesterday. Weight is 69.2 kg. GENERAL: No acute distress. She is alert and oriented. HEAD, EYES, EARS, NOSE, AND THROAT: Anicteric sclerae. NECK: No appreciable JVD. No bruits. Normal carotid upstrokes bilaterally. CARDIAC EXAMINATION: PMI was nonpalpable. There was no ventricular heave. Regular, normal S1, S2. 2/6 mid peaking systolic ejection murmur best heard at the right upper sternal border. No rubs or gallops. LUNGS: Clear to auscultation bilaterally without wheezes, rales or rhonchi. ABDOMEN: Soft, nontender, nondistended. Normoactive bowel sounds. EXTREMITIES: 1+ right radial pulse. Left upper extremity has AV fistula with palpable thrill and audible bruit. Bilateral upper extremity ecchymosis, no significant pitting edema. Left lower extremity is larger in diameter compared to the right which she states is chronic. 1+ dorsalis pedis pulses bilaterally. PSYCHIATRIC: Affect appears appropriate. ECGs personally reviewed as noted above. Telemetry personally reviewed. No arrhythmia. Echocardiogram performed 07/16/2017. Normal left ventricular size with low normal systolic function. Estimated EF 50-55%. Hypokinesis of the mid inferolateral wall, base to mid inferoseptum, mid to distal inferior wall segments. Akinesis of the basal septum and basal inferior wall. Septal motion consistent with bundle branch block. Type 2 diastolic dysfunction. Severely dilated left atrium. Moderate aortic stenosis. Restricted posterior mitral leaflet with eccentric moderate regurgitation. Pleural effusion. RVSP 46. Compared to prior study on 03/14/2017 LV systolic function is improved. LABORATORY DATA: White blood cell count 7.25, hemoglobin 10.6, platelets 200. INR 1.4, PTT 47. LABORATORIES: Sodium 132, potassium 3.6, BUN 28, creatinine 3.67. Peak troponin 0.078. Chest x-ray report from 07/21/2017 by radiology reports mild pulmonary vascular congestion without overt edema. Stable findings. ASSESSMENT AND PLAN: 1. Abnormal electrocardiogram: She has IVCD. There is no significant change in her ST segments compared to prior ECG. No further evaluation recommended at this time from a cardiac perspective. 2. Chronic combined systolic diastolic congestive heart failure: Volume status is being managed by hemodialysis. She appears euvolemic. Low sodium diet. Monitor I's and O's and daily weights. 3. Coronary artery disease status post coronary artery bypass graft and percutaneous coronary intervention: Continue antiplatelet therapy. No angina. Continue statin therapy. 4. Paroxysmal atrial fibrillation: She is currently in sinus rhythm. She is tolerating amiodarone. Continue anticoagulation for stroke risk reduction if no contraindications. 5. Ischemic cardiomyopathy: Most recent LV systolic function was estimated to be low normal with EF of 50-55%. Continue current regimen. 6. Elevated troponins: Her troponins are not diagnostic of myocardial infarction. She did not present with acute coronary syndrome nor has she had any angina. Her troponins are chronically elevated. 7. Disposition: Dr. Hernandez will resume her cardiology care as needed on 07/23/2017 when he returns to the hospital. Please call with any other questions or concerns. Thank for allowing me to participate in the care of Ms. Rahman.
[2017-07-21] MEDS: CEFEPIME IV 500 MG in SYRINGE 0 ML IV SCH (17:32)
[2017-07-21] MEDS: GUAIFENESIN/CODEINE 100MG/10MG 5ML UDC PO PRN (17:37)
[2017-07-21] MEDS: CLOPIDOGREL BISULFATE 75 MG TAB PO SCH (20:59)
[2017-07-21] MEDS: ROSUVASTATIN CALCIUM 10 MG TAB PO SCH (21:00)
[2017-07-22] VITALS (8 sets, daily range): BP systolic 114–146; BP diastolic 45–63; PULSE 66–78; TEMP 36.3–36.7; O2SAT 95–100
[2017-07-22] MEDS: GUAIFENESIN/CODEINE 100MG/10MG 5ML UDC PO PRN ×2 (01:38→14:39)
[2017-07-22] MEDS: ACETAMINOPHEN 325 MG TAB PO PRN (01:39)
[2017-07-22] MEDS: HEPARIN 25,000 UNIT/500ML D5W 500 ML IV PRN (01:43)
[2017-07-22] MEDS: ALBUT/IPRATROP 3MG/0.5MG NEB 3 ML VIAL INH SCH ×6 (03:19→23:44)
[2017-07-22] MEDS: LEVOTHYROXINE 75 MCG TAB PO SCH (05:33)
[2017-07-22 05:58] LABS: HEMATOCRIT 31.8 % (37-47); MEAN CELL VOLUME 97.2 fL (80-100); MEAN CORPUSCULAR HEMOGLOBIN 30.3 pg (25-34); MEAN CORPUSCULAR HGB CONC 31.1 g/dl (32-36); MEAN PLATELET VOLUME 10.1 fL (7.4-10.4); PLATELET COUNT 212 K/uL (130-400); RED BLOOD COUNT 3.27 M/uL (4.2-5.4); WHITE BLOOD COUNT 7.58 K/uL (4.8-10.8)
[2017-07-22 06:17] LABS: PARTIAL THROMBOPLASTIN RATIO 2.5
[2017-07-22 06:45] LABS: BUN/CREATININE RATIO 8.7 (10-20); CALCIUM 8.5 mg/dl (8.5-10.1); CREATININE 4.74 mg/dl (0.60-1.20); POTASSIUM 3.6 mmol/L (3.5-5.1)
[2017-07-22] MEDS: BOOST BREEZE NUTRITION DRINK 1 BOX PO SCH ×3 (07:30→16:45)
--- NOTE | 2017-07-22 08:11 | Family Medicine Progress Note ---
Progress Note Date of Service Jul 22, 2017. Subjective Pt evaluation today including: conversation w/ patient, physical exam, chart review, lab review, review of studies, review of inpatient medication list Pain: denies PO Intake: adequate No acute events overnight, Patient reports however she had had some trouble sleeping and an ongoing cough. SOB is at baseline. She denies pain in general, CP, Palpitation, calf tenderness Additional Comments: Constitutional: No fever, No chills Respiratory: + cough, + shortness of breath, No sputum, No wheezing Cardiovascular: No chest pain, No edema, No palpitations Abdomen: No pain, No nausea, No vomiting, No diarrhea Female : + problem reported (on Dialysis) Skin: No rash, No itch Medications Current Inpatient Medications Medications (Trade) Dose Ordered Sig/Janeth Route Start Time Stop Time Status Last Admin Dose Admin Acetaminophen (Tylenol Tab) 650 mg Q4H PRN PO 07/15/17 20:15 08/14/17 20:14 07/22/17 01:39 650 MG Ondansetron HCl (Zofran Inj) 4 mg Q6H PRN IV 07/15/17 20:15 08/14/17 20:14 07/18/17 08:44 4 MG Nitroglycerin (Nitrostat Tab) 0.4 mg UD PRN SL 07/15/17 20:15 08/14/17 20:14 Allopurinol (Zyloprim Tab) 50 mg QAM PO 07/16/17 09:00 08/15/17 08:59 07/21/17 07:15 50 MG Amiodarone HCl (Cordarone Tab) 200 mg QAM PO 07/16/17 09:00 08/15/17 08:59 07/21/17 07:15 200 MG Clopidogrel Bisulfate (plAVix TAB) 75 mg QPM PO 07/15/17 21:00 08/14/17 20:59 Future hold 07/21/17 20:59 75 MG Levothyroxine Sodium (Synthroid Tab) 75 mcg DAILYBB PO 07/16/17 06:00 08/15/17 06:59 07/22/17 05:33 75 MCG Multivitamins (Multivitamin Tab) 2 tab QAM PO 07/16/17 09:00 08/15/17 08:59 07/21/17 07:16 2 TAB Oxycodone HCl (Roxicodone Immediate Rel Tab) Pain 5-8 - give 5mg Pain 9... Q4H PRN PO 07/15/17 20:15 07/29/17 20:14 07/18/17 06:16 10 MG Pantoprazole Sodium (Protonix Tab) 40 mg QAM PO 07/16/17 09:00 08/15/17 08:59 07/21/17 07:16 40 MG Rosuvastatin Calcium (Crestor Tab) 10 mg HS PO 07/15/17 21:00 08/14/17 20:59 07/21/17 21:00 10 MG Senna/Docusate Sodium (Senokot S Tab) 1 tab BID PO 07/15/17 21:00 08/14/17 20:59 07/21/17 21:00 1 TAB Sevelamer HCl (Renagel Tab) 800 mg TIDM PO 07/16/17 07:30 08/15/17 07:59 07/21/17 17:31 800 MG Warfarin Sodium (Coumadin Tab) 2 mg QPM PO 07/15/17 21:00 08/14/17 20:59 Future Hold 07/16/17 20:39 2 MG Polyethylene (Miralax Powder Packet) 17 gm BID PO 07/15/17 21:00 08/14/17 20:59 07/21/17 21:00 17 GM Guaifenesin (Mucinex Contr Rel Tab) 600 mg Q12 PO 07/15/17 21:00 08/14/17 20:59 07/21/17 21:00 600 MG Albuterol/ Ipratropium (Duoneb) 3 ml Q2H PRN INH 07/15/17 20:15 08/14/17 20:14 Albuterol/ Ipratropium (Duoneb) 3 ml Q4R INH 07/16/17 00:00 08/15/17 00:00 07/22/17 07:06 3 ML Cefepime HCl (Consult) 1 ea UD PRN N/A 07/15/17 21:45 08/14/17 21:44 Cefepime HCl 500 mg/Syringe 5.5 ml @ 5.5 mls/min Q24H IV 07/16/17 18:00 07/24/17 17:59 07/21/17 17:32 5.5 MLS/MIN Menthol (Nice Darcie) 1 darcie PRN PRN PO 07/17/17 20:30 08/16/17 20:29 07/17/17 20:30 1 DARCIE Heparin Sodium (Porcine) (Heparin 100 Unit/ml 5ml Flush) 5 ml PRN PRN FLUSH 07/17/17 23:00 08/16/17 22:59 Benzonatate (Tessalon Perles Cap) 100 mg TID PO 07/18/17 14:00 08/17/17 13:59 07/21/17 21:00 100 MG Enteral Nutritional Formula (Boost Breeze Nutritional Drink) 1 box TIDM PO 07/18/17 16:45 08/17/17 16:44 07/21/17 07:14 1 BOX Codeine Phosphate/ Guaifenesin (Robitussin-AC Sugar Free Syrup) 5 ml Q6H PRN PO 07/18/17 16:00 08/17/17 15:59 07/22/17 01:38 5 ML Prednisone (PredniSONE TAB) 30 mg DAILY PO 07/20/17 09:00 08/19/17 08:59 07/21/17 07:17 30 MG Heparin Sodium/ Dextrose 500 ml @ 19 mls/hr Q24H PRN IV 07/19/17 09:00 08/18/17 08:44 Future hold 07/22/17 01:43 19 MLS/HR Fluticasone Propionate (Flonase Nasal [place]) 2 sprays DAILY NA 07/20/17 10:30 08/19/17 10:29 07/21/17 07:16 2 SPRAYS Sodium Chloride ([place] Nasal [place]) 1 sprays PRN PRN NA 07/21/17 07:30 08/20/17 07:29 Objective Vital Signs Date Time Temp Pulse Resp B/P (MAP) Pulse Ox O2 Delivery O2 Flow Rate FiO2 07/22/17 07:30 36.5 68 18 135/48 (77) 99 2.0 07/22/17 07:08 66 18 96 Nasal Cannula 2.0 07/22/17 04:15 36.3 76 18 126/63 (84) 99 Nasal Cannula 2.0 Humidified Oxygen 07/22/17 04:00 Nasal Cannula 2.0 07/22/17 00:00 Nasal Cannula 2.0 07/21/17 23:44 81 16 99 Nasal Cannula 2.0 07/21/17 23:26 36.6 77 18 127/59 (81) 97 Nasal Cannula 2.0 Humidified Oxygen 07/21/17 20:00 Nasal Cannula 2.0 07/21/17 19:56 36.6 73 22 146/55 (85) 100 Nasal Cannula 2.0 07/21/17 19:30 71 16 99 Nasal Cannula 2.0 07/21/17 16:00 Nasal Cannula 2.0 07/21/17 15:50 84 18 99 Nasal Cannula 2.0 07/21/17 15:49 36.5 82 22 102/51 (68) 98 Nasal Cannula 2.0 07/21/17 12:54 36.7 78 19 120/57 (78) 100 Nasal Cannula 2.0 07/21/17 12:00 Nasal Cannula 2.0 07/21/17 11:07 80 22 98 Nasal Cannula 2.0 07/21/17 08:14 36.6 80 19 108/47 (67) 97 Room Air Physical Exam Cardiovascular: regular rate, rhythm, + systolic murmur Notes: General Appearance: WD/WN, no apparent distress Neck: supple, no adenopathy Respiratory/Chest: lungs clear, normal breath sounds, no respiratory distress Cardiovascular: regular rate, rhythm, Systolic murmur Abdomen: normal bowel sounds, non tender, soft Extremities: non-tender, no pedal edema, + pertinent finding (scattered ecchymoses bilateral UE) Neurologic/Psychiatric: alert, normal mood/affect, oriented x 3 Skin: warm/dry, no rash Laboratory Results Results Past 24 Hours Test 07/21/17 09:13 07/21/17 14:18 07/22/17 05:22 Range/Units Troponin I 0.078 0-0.045 ng/ml Activated Partial Thromboplast Time 47.2 63.9 21.0-31.0 SECONDS Partial Thromboplastin Ratio 1.8 2.5 White Blood Count 7.58 4.8-10.8 K/uL Red Blood Count 3.27 4.2-5.4 M/uL Hemoglobin 9.9 12.0-16.0 g/dL Hematocrit 31.8 37-47 % Mean Corpuscular Volume 97.2 80-100 fL Mean Corpuscular Hemoglobin 30.3 25-34 pg Mean Corpuscular Hemoglobin Concent 31.1 32-36 g/dl RDW Standard Deviation 55.5 36.4-46.3 fL RDW Coefficient of Variation 16.6 11.5-14.5 % Platelet Count 212 130-400 K/uL Mean Platelet Volume 10.1 7.4-10.4 fL Sodium Level 130 136-145 mmol/L Potassium Level 3.6 3.5-5.1 mmol/L Chloride Level 95 98-107 mmol/L Carbon Dioxide Level 26 21-32 mmol/L Anion Gap 9.0 3-11 mmol/L Blood Urea Nitrogen 41 7-18 mg/dl Creatinine 4.74 0.60-1.20 mg/dl Est Creatinine Clear Calc Drug Dose 8.1 ml/min Estimated GFR () 9.0 Estimated GFR (Non- 7.8 BUN/Creatinine Ratio 8.7 10-20 Random Glucose 148 70-99 mg/dl Calcium Level 8.5 8.5-10.1 mg/dl Assessment and Plan 87 yo F w/ hx of ESRD on Dialysis, Hx of CAD/CO s/p CABG s/p RCA stenting HTN, T2DM, recent hospitalization for PNA, PFT from 2014 with markedly decreased DLCO, presenting with progressive SOB found to have Acute Hypoxic Resp Failure, now clinically improved, SOB at baseline. Acute hypoxic respiratory failure: likely secondary to asthma exacerbation - O2 to maintain sats > 92%, saturating well on 2L wean as tolerated - incentive spirometry/pulmonary toilet - Continue Prednisone day 6/8 taper, given 30 mg today Possible hospital/healthcare acquired pneumonia - Continue IV cefepime (Day 5) for 10 total days. (previously on Vanco+ Cefepime + Levaquin at admission). - Levaquin d/c'd 07/17 due to prolonged qtc of 512, Vanc d/c'd 07/15 due to neg MRSA swab - procalcitonin mildly elevated at 0.75, rapid influenza neg Cough secondary PND/GERD - Continue Tessalon pearls 100mg tid without relief - Continue Guaifenesin 5ml PO q6 - Continue Flonase - nasal spray - continue pantoprazole 40mg PO daily for GERD Anemia -normocytic -likely secondary to CKD - Continue Erythropoeitin Left pleural effusion -improving - Outpatient thoracentesis to be considered per Pulmonology if needed 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 - Nephrology input appreciated - Cr 4.74 - Dialysis Sunday, Sunday and Sunday Permacath removal -s/p permacath removal 07/20 - restarted warfarin - continue to monitor PT/INR Abnormal EKG - ST changes compared to previous. Repeat troponin slightly more elevated from .05 to.07 - elevated troponin confounded by ESRD -patient remains asymptomatic -Cardiology consulted for further input CAD (s/p CABG 1996, stent to RCA 2006, obstructed SVGs to the diagonal and ramus branches), Hx Multiple NSTEMIs and STEMI, Paroxysmal AFib, Ischemic 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 to severe , mod. MR) - Continue amiodarone and rosuvastatin - Plan to restart Clopidogrel - troponin persistently elevated as stated above - echo showed type 2 DD, enlarged left atrium, mildly elevated RVSP, mod aortic stenosis Prolonged Qt due to medication side effect - On amiodarone - levaquin stopped - repeat EKG showed prolonged QT of 527 - will repeat today Hx DVT - warfarin previously held due to surgery -Plan to restart - monitor INR Gout - Continue allopurinol 50mg PO daily Hypothyroidism - Continue levothyroxine 75 mcg PO daily Dispo - pt/ot - Home with home health Discharge planning: home with home health Resident Tracking Resident Involvement: Resident Care Provided Care Provided: Adult Hospital Medicine Reviewed: Pt Seen/Exam by Me History persistent cough. but better today sitting in chair Constitutional: denies: fever General Appearance: mild distress (from constant cough) Respiratory: no respiratory distress, decreased breath sounds Cardiovascular: regular rate, rhythm Neurologic/Psychiatric: alert, oriented x 3 Skin Characteristics: warm/dry Assessment/Plan Resident Physician Supervision Note: I independently interviewed and examined the patient and verified the arch[place] history and physical, reviewed labs and image studies, discussed the case with the resident Dr. Tian and agree with the findings and care plan.
[2017-07-22] MEDS: DOCUSATE SODIUM/SENNA 50/8.6MG TAB PO SCH ×2 (08:17→20:52)
[2017-07-22] MEDS: PANTOprazole SOD 40 MG TAB PO SCH (08:17)
[2017-07-22] MEDS: MULTIVITAMIN TAB PO SCH (08:17)
[2017-07-22] MEDS: GUAIFENESIN 600 MG TABCR PO SCH ×2 (08:17→20:51)
[2017-07-22] MEDS: SEVELAMER HYDROCH 800 MG TAB PO SCH ×3 (08:18→17:00)
[2017-07-22] MEDS: POLYETHYLENE (MIRALAX) 17 GM PACK PO SCH ×2 (08:18→20:52)
[2017-07-22] MEDS: AMIODARONE 200 MG TAB PO SCH (08:18)
[2017-07-22] MEDS: ALLOPURINOL 100 MG TAB PO SCH (08:18)
[2017-07-22] MEDS: BENZONATATE 100MG CAP PO SCH ×3 (08:35→20:52)
[2017-07-22] MEDS: FLUTICASONE PROPIONATE NA SPR 16 GM BTL SCH (08:36)
--- NOTE | 2017-07-22 10:59 | Nephrology Progress Note ---
Nephrology Progress Note Date of Service Jul 22, 2017. Chief Complaint ESRD requiring HD Subjective Ms. Rahman was seen & examined in the PCU this morning. She reports that her breathing is improved however she has a persistent nonproductive cough. Review of Systems Constitutional: No fever Cardiovascular: No chest pain Respiratory: No dyspnea at rest Abdomen: No pain, No nausea, No vomiting Extremities: + leg edema A complete review of systems was performed. Pertinent positives are noted above. All other systems are negative. Vital Signs Last 8 Hrs Date Time Temp Pulse Resp B/P (MAP) Pulse Ox O2 Delivery O2 Flow Rate FiO2 07/22/17 08:00 Nasal Cannula 07/22/17 07:30 36.5 68 18 135/48 (77) 99 2.0 07/22/17 07:08 66 18 96 Nasal Cannula 2.0 07/22/17 04:15 36.3 76 18 126/63 (84) 99 Nasal Cannula 2.0 Humidified Oxygen 07/22/17 04:00 Nasal Cannula 2.0 Last Recorded Weight Weight (Kilograms): 67.400 Physical Exam General Appearance: + mild distress (due to persistent coughing) Head: normocephalic, atraumatic Eyes: PERRL Neck: no adenopathy Respiratory/Chest: + crackles (at bases) Cardiovascular: regular rate, rhythm Abdomen/GI: normal bowel sounds, non tender, soft Extremities/Musculoskelatal: + pertinent finding (trace pretibial edema. AVF + bruit) Neurologic/Psych: alert, oriented x 3 Family History Asthma Cancer SISTER (Breast cancer) Chronic kidney disease MOTHER Diabetes mellitus FATHER Heart disease FATHER Hypertension FATHER MOTHER Kidney disease Kidney stones Stroke Negative for CKD / ESRD Social History Smoking Status: Never smoker Drug Use: none Marital Status: Housing Status: lives with family Occupation: retired . Retired. Never a smoker. Laboratory Results Past 24 Hours 07/22/17 05:22 07/22/17 05:22 Test 07/21/17 14:18 07/22/17 05:22 Activated Partial Thromboplast Time 47.2 SECONDS (21.0-31.0) 63.9 SECONDS (21.0-31.0) Partial Thromboplastin Ratio 1.8 2.5 Red Blood Count 3.27 M/uL (4.2-5.4) Mean Corpuscular Volume 97.2 fL (80-100) Mean Corpuscular Hemoglobin 30.3 pg (25-34) Mean Corpuscular Hemoglobin Concent 31.1 g/dl (32-36) RDW Standard Deviation 55.5 fL (36.4-46.3) RDW Coefficient of Variation 16.6 % (11.5-14.5) Mean Platelet Volume 10.1 fL (7.4-10.4) Anion Gap 9.0 mmol/L (3-11) Est Creatinine Clear Calc Drug Dose 8.1 ml/min Estimated GFR () 9.0 Estimated GFR (Non- 7.8 BUN/Creatinine Ratio 8.7 (10-20) Calcium Level 8.5 mg/dl (8.5-10.1) Allergies Coded Allergies: No Known Allergies (Unverified , 04/20/17) Medications Current Inpatient Medications Medications (Trade) Dose Ordered Sig/Janeth Route Start Time Stop Time Status Last Admin Dose Admin Acetaminophen (Tylenol Tab) 650 mg Q4H PRN PO 07/15/17 20:15 08/14/17 20:14 07/22/17 01:39 650 MG Ondansetron HCl (Zofran Inj) 4 mg Q6H PRN IV 07/15/17 20:15 08/14/17 20:14 07/18/17 08:44 4 MG Nitroglycerin (Nitrostat Tab) 0.4 mg UD PRN SL 07/15/17 20:15 08/14/17 20:14 Allopurinol (Zyloprim Tab) 50 mg QAM PO 07/16/17 09:00 08/15/17 08:59 07/22/17 08:18 50 MG Amiodarone HCl (Cordarone Tab) 200 mg QAM PO 07/16/17 09:00 08/15/17 08:59 07/22/17 08:18 200 MG Clopidogrel Bisulfate (plAVix TAB) 75 mg QPM PO 07/15/17 21:00 08/14/17 20:59 Future hold 07/21/17 20:59 75 MG Levothyroxine Sodium (Synthroid Tab) 75 mcg DAILYBB PO 07/16/17 06:00 08/15/17 06:59 07/22/17 05:33 75 MCG Multivitamins (Multivitamin Tab) 2 tab QAM PO 07/16/17 09:00 08/15/17 08:59 07/22/17 08:17 2 TAB Oxycodone HCl (Roxicodone Immediate Rel Tab) Pain 5-8 - give 5mg Pain 9... Q4H PRN PO 07/15/17 20:15 07/29/17 20:14 07/18/17 06:16 10 MG Pantoprazole Sodium (Protonix Tab) 40 mg QAM PO 07/16/17 09:00 08/15/17 08:59 07/22/17 08:17 40 MG Rosuvastatin Calcium (Crestor Tab) 10 mg HS PO 07/15/17 21:00 08/14/17 20:59 07/21/17 21:00 10 MG Senna/Docusate Sodium (Senokot S Tab) 1 tab BID PO 07/15/17 21:00 08/14/17 20:59 07/22/17 08:17 1 TAB Sevelamer HCl (Renagel Tab) 800 mg TIDM PO 07/16/17 07:30 08/15/17 07:59 07/22/17 08:18 800 MG Warfarin Sodium (Coumadin Tab) 2 mg QPM PO 07/15/17 21:00 08/14/17 20:59 Future Hold 07/16/17 20:39 2 MG Polyethylene (Miralax Powder Packet) 17 gm BID PO 07/15/17 21:00 08/14/17 20:59 07/22/17 08:18 17 GM Guaifenesin (Mucinex Contr Rel Tab) 600 mg Q12 PO 07/15/17 21:00 08/14/17 20:59 07/22/17 08:17 600 MG Albuterol/ Ipratropium (Duoneb) 3 ml Q2H PRN INH 07/15/17 20:15 08/14/17 20:14 Albuterol/ Ipratropium (Duoneb) 3 ml Q4R INH 07/16/17 00:00 08/15/17 00:00 07/22/17 07:06 3 ML Cefepime HCl (Consult) 1 ea UD PRN N/A 07/15/17 21:45 08/14/17 21:44 Cefepime HCl 500 mg/Syringe 5.5 ml @ 5.5 mls/min Q24H IV 07/16/17 18:00 07/24/17 17:59 07/21/17 17:32 5.5 MLS/MIN Menthol (Nice Artem) 1 artem PRN PRN PO 07/17/17 20:30 08/16/17 20:29 07/17/17 20:30 1 ARTEM Heparin Sodium (Porcine) (Heparin 100 Unit/ml 5ml Flush) 5 ml PRN PRN FLUSH 07/17/17 23:00 08/16/17 22:59 Benzonatate (Tessalon Perles Cap) 100 mg TID PO 07/18/17 14:00 08/17/17 13:59 07/22/17 08:35 100 MG Enteral Nutritional Formula (Boost Breeze Nutritional Drink) 1 box TIDM PO 07/18/17 16:45 08/17/17 16:44 07/21/17 07:14 1 BOX Codeine Phosphate/ Guaifenesin (Robitussin-AC Sugar Free Syrup) 5 ml Q6H PRN PO 07/18/17 16:00 08/17/17 15:59 07/22/17 01:38 5 ML Prednisone (PredniSONE TAB) 30 mg DAILY PO 07/20/17 09:00 08/19/17 08:59 07/22/17 08:17 30 MG Heparin Sodium/ Dextrose 500 ml @ 19 mls/hr Q24H PRN IV 07/19/17 09:00 08/18/17 08:44 Future hold 07/22/17 01:43 19 MLS/HR Fluticasone Propionate (Flonase Nasal [place]) 2 sprays DAILY NA 07/20/17 10:30 08/19/17 10:29 07/22/17 08:36 2 SPRAYS Sodium Chloride ([place] Nasal [place]) 1 sprays PRN PRN NA 07/21/17 07:30 08/20/17 07:29 Impression (1) Hypoxia (2) ESRD (end stage renal disease) on dialysis (3) Bronchopneumonia (4) Anemia (5) Aortic stenosis (6) Atrial fibrillation (7) Coronary artery disease (8) Loosening of prosthetic hip Ms. Rahman was admitted with hypoxemia. She has a recent h/o LLL pneumonia. She presented w/ a 3 day h/o cough productive of yellow sputum and progressive dyspnea. CXR revealed a small stable L pleural effusion. There were no infiltrates. Patient has been compliant w/ her MWF HD schedule. She is only 1 kg above her dry weight. Clinically suspect that her dyspnea is related to recurrent bronchopneumonia Recommendations END STAGE RENAL DISEASE: -- Volume status and electrolyte balance are acceptable. No acute indication for HD today. Will schedule next treatment for tomorrow morning -- CXR 07/21: Pulmonary edema and L pleural effusion are markedly improved. Will set EDW at 69 kg. -- IJ THC removed 07/20. HYPERTENSION: -- Blood pressure is currently controlled. Will monitor ANEMIA: -- Will provide RANJAN w/ dialysis treatments (target Hgb 10 - 11) ID: -- Patient is currently on Cefipime and Prednisone taper -- Antibiotics as per primary service -- OK to proceed w/ chest CT today due to recurrent cough. Patient will have HD in am
[2017-07-22] MEDS ORDERED: WARFARIN SOD 4 MG TAB PO ONE (14:15)
[2017-07-22] MEDS: CEFEPIME IV 500 MG in SYRINGE 0 ML IV SCH (17:00)
[2017-07-22] MEDS: CLOPIDOGREL BISULFATE 75 MG TAB PO SCH (20:51)
[2017-07-22] MEDS: ROSUVASTATIN CALCIUM 10 MG TAB PO SCH (20:52)
[2017-07-23] VITALS (30 sets, daily range): BP systolic 94–146; BP diastolic 41–84; PULSE 65–84; TEMP 36.3–36.7; O2SAT 94–100
[2017-07-23] MEDS: ACETAMINOPHEN 325 MG TAB PO PRN (02:40)
[2017-07-23] MEDS: HEPARIN 25,000 UNIT/500ML D5W 500 ML IV PRN (03:11)
[2017-07-23] MEDS: LEVOTHYROXINE 75 MCG TAB PO SCH (05:21)
[2017-07-23] MEDS ORDERED: EPOETIN ALFA 10,000 UNITS/ML VIAL IV. ONE (06:00)
[2017-07-23] MEDS ORDERED: PARICALCITOL 5 MCG/ML VIAL (ZEMPLAR) IV. ONE (06:00)
[2017-07-23] MEDS ORDERED: HEPARIN SOD (PORCINE) 1000 UNIT/ML 10 ML VIAL IV ONE (06:00)
[2017-07-23 06:37] LABS: INR 1.3 (0.9-1.1); PARTIAL THROMBOPLASTIN RATIO 3.3; PROTHROMBIN TIME (PATIENT) 13.7 SECONDS (9.0-12.0)
[2017-07-23 06:50] LABS: BUN/CREATININE RATIO 9.8 (10-20); CALCIUM 8.6 mg/dl (8.5-10.1); CREATININE 5.43 mg/dl (0.60-1.20); POTASSIUM 4.2 mmol/L (3.5-5.1)
[2017-07-23] MEDS: ALBUT/IPRATROP 3MG/0.5MG NEB 3 ML VIAL INH SCH ×4 (07:08→19:34)
[2017-07-23] MEDS: BOOST BREEZE NUTRITION DRINK 1 BOX PO SCH ×3 (07:30→17:36)
[2017-07-23] MEDS: SEVELAMER HYDROCH 800 MG TAB PO SCH ×3 (07:44→16:43)
[2017-07-23] MEDS: POLYETHYLENE (MIRALAX) 17 GM PACK PO SCH ×2 (07:45→20:35)
[2017-07-23] MEDS: PANTOprazole SOD 40 MG TAB PO SCH (07:45)
[2017-07-23] MEDS: FLUTICASONE PROPIONATE NA SPR 16 GM BTL SCH (07:45)
[2017-07-23] MEDS: BENZONATATE 100MG CAP PO SCH ×3 (07:46→20:33)
[2017-07-23] MEDS: DOCUSATE SODIUM/SENNA 50/8.6MG TAB PO SCH ×2 (07:46→20:33)
[2017-07-23] MEDS: GUAIFENESIN 600 MG TABCR PO SCH ×2 (07:46→20:33)
[2017-07-23] MEDS: ALLOPURINOL 100 MG TAB PO SCH (07:46)
[2017-07-23] MEDS: MULTIVITAMIN TAB PO SCH (07:47)
[2017-07-23] MEDS ORDERED: EPOETIN ALFA INJ 7,000 UNITS in SYRINGE 0 ML IV. SCH (10:15)
--- NOTE | 2017-07-23 10:23 | Dialysis Progress Note ---
Hemodialysis Note Date of Service Jul 23, 2017. Chief Complaint Follow-up for end-stage renal disease on hemodialysis. Subjective Reina Was seen and examined during dialysis this morning. She continues to have cough and gets easily short of breath with minimum exertion. Has been tolerating dialysis well, vital sign remained stable. Blood pressure well controlled. Review of Systems A complete review of systems was performed. Pertinent positives are noted above. All other systems are negative. Vital Signs Last 8 Hrs Date Time Temp Pulse Resp B/P (MAP) Pulse Ox O2 Delivery O2 Flow Rate FiO2 07/23/17 09:13 36.4 69 123/59 (80) 07/23/17 08:00 36.3 84 22 137/57 (83) 98 Nasal Cannula 3.0 () 07/23/17 08:00 Nasal Cannula 07/23/17 07:08 74 18 98 Nasal Cannula 2.0 07/23/17 04:00 Nasal Cannula 2.0 07/23/17 03:53 36.5 79 23 139/72 (94) 98 Nasal Cannula 3.0 Last Recorded Weight Weight (Kilograms): 67.200 Physical Exam GENERAL: elderly female, AAA x 3, pleasant, ill-appearing, in mild distress. NECK: Supple, no JVD. RESPIRATORY: clear to auscultation bilaterally, no wheezes or rales. CARDIOVASCULAR: S1, S2 normal, rate rhythm regular. EXTREMITY: No lower extremity edema NEURO: speech fluent. PSYCHIATRY: Normal mood and judgment Family History Negative for CKD / ESRD Social History Smoking Status: Never smoker Drug Use: none Marital Status: Housing Status: lives with family Occupation: retired . Retired. Never a smoker. Laboratory Results Past 24 Hours 07/23/17 05:11 Test 07/23/17 05:11 Prothrombin Time 13.7 SECONDS (9.0-12.0) Prothromb Time International Ratio 1.3 (0.9-1.1) Activated Partial Thromboplast Time 84.7 SECONDS (21.0-31.0) Partial Thromboplastin Ratio 3.3 Anion Gap 10.0 mmol/L (3-11) Est Creatinine Clear Calc Drug Dose 7.0 ml/min Estimated GFR () 7.6 Estimated GFR (Non- 6.6 BUN/Creatinine Ratio 9.8 (10-20) Calcium Level 8.6 mg/dl (8.5-10.1) Allergies Coded Allergies: No Known Allergies (Unverified , 04/20/17) Medications Current Inpatient Medications Medications (Trade) Dose Ordered Sig/Janeth Route Start Time Stop Time Status Last Admin Dose Admin Acetaminophen (Tylenol Tab) 650 mg Q4H PRN PO 07/15/17 20:15 08/14/17 20:14 07/23/17 02:40 650 MG Ondansetron HCl (Zofran Inj) 4 mg Q6H PRN IV 07/15/17 20:15 08/14/17 20:14 07/18/17 08:44 4 MG Nitroglycerin (Nitrostat Tab) 0.4 mg UD PRN SL 07/15/17 20:15 08/14/17 20:14 Allopurinol (Zyloprim Tab) 50 mg QAM PO 07/16/17 09:00 08/15/17 08:59 07/23/17 07:46 50 MG Amiodarone HCl (Cordarone Tab) 200 mg QAM PO 07/16/17 09:00 08/15/17 08:59 07/22/17 08:18 200 MG Clopidogrel Bisulfate (plAVix TAB) 75 mg QPM PO 07/15/17 21:00 08/14/17 20:59 Future hold 07/22/17 20:51 75 MG Levothyroxine Sodium (Synthroid Tab) 75 mcg DAILYBB PO 07/16/17 06:00 08/15/17 06:59 07/23/17 05:21 75 MCG Multivitamins (Multivitamin Tab) 2 tab QAM PO 07/16/17 09:00 08/15/17 08:59 07/23/17 07:47 2 TAB Oxycodone HCl (Roxicodone Immediate Rel Tab) Pain 5-8 - give 5mg Pain 9... Q4H PRN PO 07/15/17 20:15 07/29/17 20:14 07/18/17 06:16 10 MG Pantoprazole Sodium (Protonix Tab) 40 mg QAM PO 07/16/17 09:00 08/15/17 08:59 07/23/17 07:45 40 MG Rosuvastatin Calcium (Crestor Tab) 10 mg HS PO 07/15/17 21:00 08/14/17 20:59 07/22/17 20:52 10 MG Senna/Docusate Sodium (Senokot S Tab) 1 tab BID PO 07/15/17 21:00 08/14/17 20:59 07/23/17 07:46 1 TAB Sevelamer HCl (Renagel Tab) 800 mg TIDM PO 07/16/17 07:30 08/15/17 07:59 07/23/17 07:44 800 MG Polyethylene (Miralax Powder Packet) 17 gm BID PO 07/15/17 21:00 08/14/17 20:59 07/23/17 07:45 17 GM Guaifenesin (Mucinex Contr Rel Tab) 600 mg Q12 PO 07/15/17 21:00 08/14/17 20:59 07/23/17 07:46 600 MG Albuterol/ Ipratropium (Duoneb) 3 ml Q2H PRN INH 07/15/17 20:15 08/14/17 20:14 Albuterol/ Ipratropium (Duoneb) 3 ml Q4R INH 07/16/17 00:00 08/15/17 00:00 07/23/17 07:08 3 ML Cefepime HCl (Consult) 1 ea UD PRN N/A 07/15/17 21:45 08/14/17 21:44 Cefepime HCl 500 mg/Syringe 5.5 ml @ 5.5 mls/min Q24H IV 07/16/17 18:00 07/24/17 17:59 07/22/17 17:00 5.5 MLS/MIN Menthol (Nice Artem) 1 artem PRN PRN PO 07/17/17 20:30 08/16/17 20:29 07/17/17 20:30 1 ARTEM Heparin Sodium (Porcine) (Heparin 100 Unit/ml 5ml Flush) 5 ml PRN PRN FLUSH 07/17/17 23:00 08/16/17 22:59 Benzonatate (Tessalon Perles Cap) 100 mg TID PO 07/18/17 14:00 08/17/17 13:59 07/23/17 07:46 100 MG Enteral Nutritional Formula (Boost Breeze Nutritional Drink) 1 box TIDM PO 07/18/17 16:45 08/17/17 16:44 07/21/17 07:14 1 BOX Codeine Phosphate/ Guaifenesin (Robitussin-AC Sugar Free Syrup) 5 ml Q6H PRN PO 07/18/17 16:00 08/17/17 15:59 07/22/17 14:39 5 ML Prednisone (PredniSONE TAB) 30 mg DAILY PO 07/20/17 09:00 08/19/17 08:59 07/23/17 07:45 30 MG Heparin Sodium/ Dextrose 500 ml @ 17 mls/hr Q24H PRN IV 07/19/17 09:00 08/18/17 08:44 Future hold 07/23/17 03:11 19 MLS/HR Fluticasone Propionate (Flonase Nasal [place]) 2 sprays DAILY NA 07/20/17 10:30 08/19/17 10:29 07/23/17 07:45 2 SPRAYS Sodium Chloride ([place] Nasal [place]) 1 sprays PRN PRN NA 07/21/17 07:30 08/20/17 07:29 Warfarin Sodium (Coumadin Tab) 2 mg QPM PO 07/23/17 21:00 08/22/17 20:59 Impression (1) Hypoxia (2) ESRD (end stage renal disease) on dialysis (3) Bronchopneumonia (4) Anemia (5) Aortic stenosis (6) Atrial fibrillation (7) Coronary artery disease (8) Loosening of prosthetic hip Ms. Rahman was admitted with hypoxemia. She has a recent h/o LLL pneumonia. She presented w/ a 3 day h/o cough productive of yellow sputum and progressive dyspnea. CXR revealed a small stable L pleural effusion. There were no infiltrates. Patient has been compliant w/ her MWF HD schedule. She is only 1 kg above her dry weight. Clinically suspect that her dyspnea is related to recurrent bronchopneumonia Recommendations -- Tolerating HD well, vitals stable -- Blood pressure is currently controlled. Will monitor -- Will provide RANJAN w/ dialysis treatments (target Hgb 10 - 11) -- Patient is currently on Cefipime and Prednisone taper -- OK to proceed w/ chest CT if necessary with persistent cough and SOB
--- NOTE | 2017-07-23 11:59 | Progress Note ---
Subjective Date of Service: Jul 23, 2017. Subjective Pt evaluation today including: conversation w/ patient, conversation w/ family , physical exam, chart review, lab review, review of studies, conversation w/ loan consultant, review of inpatient medication list Feeling generally okay, however has persistent dry cough, which has not improved since admission, associated with right rib cage pain when cough, no sputum, no hemoptysis Feeling sob is in baseline Problem List Medical Problems: (1) Ambulatory dysfunction Status: Acute (2) Back pain Status: Acute (3) CHF (congestive heart failure) Status: Acute (4) Chronic kidney insufficiency Status: Acute (5) Chronic renal failure Status: Acute (6) Congestive heart failure Status: Acute (7) Congestive heart failure Status: Acute (8) E16.2 Status: Acute (9) Elevated INR Status: Acute (10) Elevated troponin Status: Acute (11) GI bleed Status: Acute (12) Hypotension Status: Acute (13) Left leg DVT Status: Acute (14) Pancytopenia Status: Acute (15) Pneumonia Status: Acute (16) Pneumonia Status: Acute (17) Pneumonia Status: Acute (18) Pulmonary edema Status: Acute (19) Respiratory distress Status: Acute (20) Respiratory failure with hypoxia Status: Acute (21) Sepsis Status: Acute (22) Sepsis Status: Acute (23) ST segment changes on electrocardiogram Status: Acute (24) Substernal precordial chest pain Status: Acute (25) Substernal precordial chest pain Status: Acute (26) Symptomatic anemia Status: Acute (27) Weakness Status: Acute Review of Systems Constitutional: + weakness ENT: No see HPI, No hearing loss, No unusual epistaxis, No nasal symptoms, No sore throat, No tinnitus, No dental problems, No trouble swallowing, No problem reported Respiratory: + see HPI, + cough, + shortness of breath Cardiac: + see HPI, + edema (trace) Abdomen: No see HPI, No pain, No nausea, No vomiting, No diarrhea, No constipation, No GI bleeding, No problem reported Musculoskeletal: No see HPI, No joint pain, No muscle pain, No swelling, No calf pain, No problem reported Female : No see HPI, No dysuria, No urinary frequency, No hematuria, No incontinence, No abnormal vaginal bleeding, No vaginal discharge, No problem reported Neurologic: No see HPI, No memory loss, No paralysis, No weakness, No numbness/ tingling, No vertigo, No balance problems, No problem reported Psychiatric: No see HPI, No depression symptoms, No anhedonism, No anxiety, No insomnia, No substance abuse, No problem reported Heme: No see HPI, No abnormal bleeding/bruising, No clotting problems, No swollen lymph nodes, No night sweats, No problem reported Endo: No see HPI, No fatigue, No excessive thirst, No excessive urination, No problem reported Skin: No see HPI, No rash, No itch, No new/changing skin lesions, No color change, No bleeding, No problem reported Objective Vital Signs Date Time Temp Pulse Resp B/P (MAP) Pulse Ox O2 Delivery O2 Flow Rate FiO2 07/23/17 11:00 74 145/62 07/23/17 10:45 73 137/62 07/23/17 10:30 73 135/61 07/23/17 10:15 71 140/65 07/23/17 10:00 72 146/65 07/23/17 09:45 70 133/62 07/23/17 09:30 68 127/59 07/23/17 09:13 36.4 69 123/59 (80) 07/23/17 08:00 36.3 84 22 137/57 (83) 98 Nasal Cannula 3.0 () 07/23/17 08:00 Nasal Cannula 07/23/17 07:08 74 18 98 Nasal Cannula 2.0 07/23/17 04:00 Nasal Cannula 2.0 07/23/17 03:53 36.5 79 23 139/72 (94) 98 Nasal Cannula 3.0 07/23/17 00:22 36.4 76 26 122/57 (78) 100 Nasal Cannula 2.0 Humidified Oxygen 07/23/17 00:00 Nasal Cannula 2.0 07/22/17 20:00 Nasal Cannula 2.0 07/22/17 19:17 78 18 100 Nasal Cannula 2.0 07/22/17 19:04 36.6 72 19 146/54 (84) 100 Nasal Cannula 2.0 07/22/17 16:00 Nasal Cannula 07/22/17 15:03 70 18 98 Nasal Cannula 2.0 07/22/17 15:03 36.7 73 31 129/49 (75) 100 Nasal Cannula 2.0 Physical Exam General Appearance: WD/WN, no apparent distress Eyes: normal inspection, PERRL ENT: normal ENT inspection, hearing grossly normal, TMs normal Neck: supple, no adenopathy, thyroid normal Respiratory/Chest: chest non-tender, no respiratory distress, no accessory muscle use, + decreased breath sounds Cardiovascular: regular rate, rhythm, no gallop, no JVD, + pertinent finding ( trace edema) Abdomen: normal bowel sounds, non tender, soft, no organomegaly Extremities: normal range of motion, non-tender, + swelling Neurologic/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, no motor/sensory deficits, alert, normal mood/affect Skin: normal color, warm/dry, no rash Laboratory Results Last 24 Hours Test 07/23/17 05:11 Prothrombin Time 13.7 SECONDS Prothromb Time International Ratio 1.3 Activated Partial Thromboplast Time 84.7 SECONDS Partial Thromboplastin Ratio 3.3 Sodium Level 127 mmol/L Potassium Level 4.2 mmol/L Chloride Level 94 mmol/L Carbon Dioxide Level 23 mmol/L Anion Gap 10.0 mmol/L Blood Urea Nitrogen 53 mg/dl Creatinine 5.43 mg/dl Est Creatinine Clear Calc Drug Dose 7.0 ml/min Estimated GFR () 7.6 Estimated GFR (Non- 6.6 BUN/Creatinine Ratio 9.8 Random Glucose 166 mg/dl Calcium Level 8.6 mg/dl Assessment and Plan 87 yo F w/ hx of ESRD on Dialysis admitted on 07/15/2017 because of progressive SOB found to have Acute Hypoxic Resp Failure, Has been continue clinically improved, SOB at baseline, but has a lot of dry cough Acute hypoxic respiratory failure: likely secondary to asthma exacerbation , continue oxygen, incentive spirometry/pulmonary toilet, Continue Prednisone day 7/8 taper, given 20 mg today, continue Mucinex, changed Robitussin with codeine as needed to scheduled Possible hospital/healthcare acquired pneumonia, has been on IV cefepime (Day 6 ) for 10 total days. 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 to severe , mod. MR), Continue amiodarone and rosuvastatin, has restarted Clopidogrel - troponin mild elevated the from multiple reason such as end stage renal disease, and demanding ischemia - echo showed type 2 DD, enlarged left atrium, mildly elevated RVSP, mod aortic stenosis Hx DVT, continue heparin bridging for warfarin which was previously held due to surgery , monitor INR Gout Hypothyroidism Hyponatremia Above condition stable, will follow-up Discharge planning: home with home health Continued [facility] stay due to: multiple IV medications needed Discharge planning: home with home health
--- NOTE | 2017-07-23 12:30 | Clinical Documentation Query ---
CLINICAL DOCUMENTATION QUERY In your clinical opinion is this patient being managed for: ( x) possible Type 2 demand ischemia ( ) Not Agree ( ) Other explanation of clinical findings (Please Explain) ( ) Unable to determine (Please Define) ( ) Need to Discuss The medical record reflects the following clinical findings, treatment, and risk factors. Clinical Indicators: Troponins 0.057 trending up to 0.078, EKG nonspecific ST and T wave abnormality, SOB Treatment: ICU, O2, Cardiology consult, serial ECGs Risk Factors: ESRD, PVD, CHF, HTN Please clarify and document your clinical opinion in the progress notes and discharge summary. Terms such as "probable", "suspected", "likely", "questionable", "possible", or "still to be ruled out" are acceptable. IF IN AGREEMENT, YOU MUST DOCUMENT ABOVE DIAGNOSTIC STATEMENT IN DAILY PROGRESS NOTES AND DISCHARGE SUMMARY. This document is not part of the patient's record. Thank You, Anita Raya RN [phone]
[2017-07-23] MEDS: GUAIFENESIN/CODEINE 100MG/10MG 5ML UDC PO SCH ×3 (14:04→23:23)
[2017-07-23] MEDS: AMIODARONE 200 MG TAB PO SCH (14:04)
[2017-07-23 15:53] LABS: PARTIAL THROMBOPLASTIN RATIO 1.4
[2017-07-23] MEDS ORDERED: HEPARIN IV BOLUS 4,000 UNIT in SYRINGE 0 ML IV ONE (16:45)
[2017-07-23] MEDS: CEFEPIME IV 500 MG in SYRINGE 0 ML IV SCH (17:33)
[2017-07-23] MEDS: ROSUVASTATIN CALCIUM 10 MG TAB PO SCH (20:33)
[2017-07-23] MEDS: CLOPIDOGREL BISULFATE 75 MG TAB PO SCH (20:33)
[2017-07-23] MEDS: WARFARIN SOD 2 MG TAB PO SCH (20:33)
[2017-07-23 23:27] LABS: PARTIAL THROMBOPLASTIN RATIO 4.1
[2017-07-24] VITALS (14 sets, daily range): BP systolic 112–124; BP diastolic 51–69; PULSE 66–82; TEMP 35.8–36.8; O2SAT 96–100
[2017-07-24] MEDS: ALBUT/IPRATROP 3MG/0.5MG NEB 3 ML VIAL INH SCH ×7 (00:07→23:12)
[2017-07-24] MEDS: HEPARIN 25,000 UNIT/500ML D5W 500 ML IV PRN ×2 (01:36→10:39)
[2017-07-24] MEDS: ACETAMINOPHEN 325 MG TAB PO PRN (01:40)
[2017-07-24] MEDS: GUAIFENESIN/CODEINE 100MG/10MG 5ML UDC PO SCH ×3 (05:56→18:01)
[2017-07-24] MEDS: LEVOTHYROXINE 75 MCG TAB PO SCH (05:56)
[2017-07-24 07:13] LABS: HEMATOCRIT 33.8 % (37-47); MEAN CELL VOLUME 98.3 fL (80-100); MEAN CORPUSCULAR HEMOGLOBIN 32.3 pg (25-34); MEAN CORPUSCULAR HGB CONC 32.8 g/dl (32-36); MEAN PLATELET VOLUME 10.2 fL (7.4-10.4); PLATELET COUNT 194 K/uL (130-400); RED BLOOD COUNT 3.44 M/uL (4.2-5.4); WHITE BLOOD COUNT 9.36 K/uL (4.8-10.8)
[2017-07-24 07:20] LABS: INR 1.4 (0.9-1.1); PARTIAL THROMBOPLASTIN RATIO 2.2; PROTHROMBIN TIME (PATIENT) 15.6 SECONDS (9.0-12.0)
[2017-07-24 07:54] LABS: BUN/CREATININE RATIO 7.8 (10-20); CALCIUM 8.4 mg/dl (8.5-10.1); CREATININE 3.7 mg/dl (0.60-1.20); MAGNESIUM 2.7 mg/dl (1.8-2.4); POTASSIUM 3.7 mmol/L (3.5-5.1)
[2017-07-24] MEDS: BOOST BREEZE NUTRITION DRINK 1 BOX PO SCH ×3 (07:58→16:53)
[2017-07-24] MEDS: POLYETHYLENE (MIRALAX) 17 GM PACK PO SCH ×2 (07:58→20:53)
[2017-07-24] MEDS: MULTIVITAMIN TAB PO SCH (07:59)
[2017-07-24] MEDS: PANTOprazole SOD 40 MG TAB PO SCH (07:59)
[2017-07-24] MEDS: GUAIFENESIN 600 MG TABCR PO SCH ×2 (08:00→20:54)
[2017-07-24] MEDS: ALLOPURINOL 100 MG TAB PO SCH (08:05)
[2017-07-24] MEDS: AMIODARONE 200 MG TAB PO SCH (08:05)
[2017-07-24] MEDS: DOCUSATE SODIUM/SENNA 50/8.6MG TAB PO SCH ×2 (08:05→20:54)
[2017-07-24] MEDS: FLUTICASONE PROPIONATE NA SPR 16 GM BTL SCH (08:05)
[2017-07-24] MEDS: BENZONATATE 100MG CAP PO SCH ×3 (08:05→20:55)
[2017-07-24] MEDS: SEVELAMER HYDROCH 800 MG TAB PO SCH ×3 (08:06→16:52)
--- NOTE | 2017-07-24 09:13 | CARDIOLOGY PROGRESS NOTE ---
DATE: 07/24/2017 SUBJECTIVE: Mrs. Rahman is resting comfortably at the bedside without complaints of chest pain or dyspnea. She is anxious for hospital discharge. OBJECTIVE: VITAL SIGNS: Blood pressure is 124/70 with a regular pulse of 82. Respiratory rate is 20 and the patient is afebrile at 36.7 degrees Celsius. Saturation is 100% on 2 liters nasal cannula. NECK: Supple with full carotid upstrokes. No obvious bruits. Jugular venous pressure is flat at 90 degrees. There is no thyromegaly. CARDIOVASCULAR: Reveals a regular rhythm with a 2/6 basal systolic ejection murmur. No S3 or S4. S2 is audible at the apex. LUNGS: Clear without rales, rhonchi, or wheezes. ABDOMEN: Obese without bruits. EXTREMITIES: Reveal intact radial artery pulse on the right. Left upper extremity AV fistula with a palpable thrill. Trace pretibial edema is noted. DATA: CBC notes a hemoglobin of 11.1, hematocrit 33.8, white count 9.3, platelet count 194,000. Electrolytes note a sodium of 134, potassium 3.7, chloride 97, bicarbonate 29, BUN 29, creatinine 3.7, glucose 165. 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 IMPRESSION AND PLAN: 1. Chronic diastolic congestive heart failure -- patient's volume status managed by hemodialysis. Echocardiogram performed earlier this month notes a low normal ejection fraction of 50-55% with an inferior wall motion abnormality. Continue current management. 2. Coronary artery disease -- status post CABG x4 1996. In 2006, PCI was performed to the right coronary artery. Saphenous vein grafts to the ramus and diagonal were obstructed at that time. Continue medical management. 3. Paroxysmal atrial fibrillation -- remains in sinus rhythm. 4. Hypertension -- controlled. 5. Hypercholesterolemia. 6. Moderate aortic stenosis. 7. End-stage renal disease. MTDD
--- NOTE | 2017-07-24 10:16 | Nephrology Progress Note ---
Nephrology Progress Note Date of Service Jul 24, 2017. Chief Complaint Follow-up for end-stage renal disease on hemodialysis. José Huang Was seen and examined in her room this morning. She had dialysis yesterday, tolerated 3 liters of UF, currently blood pressure electrolyte acceptable. Overall she feels better but continues to be bothered by cough. Review of Systems A complete review of systems was performed. Pertinent positives are noted above. All other systems are negative. Vital Signs Last 8 Hrs Date Time Temp Pulse Resp B/P (MAP) Pulse Ox O2 Delivery O2 Flow Rate FiO2 07/24/17 08:00 Nasal Cannula 2.0 07/24/17 07:40 36.7 82 22 124/69 (87) 100 Nasal Cannula 2.5 07/24/17 07:20 78 16 96 Nasal Cannula 2.0 07/24/17 04:56 36.4 73 19 116/56 (76) 99 Nasal Cannula 2.0 07/24/17 04:00 Nasal Cannula 2.0 07/24/17 03:08 80 20 98 Nasal Cannula 2.0 Last Recorded Weight Weight (Kilograms): 68.700 Physical Exam GENERAL: elderly female, AAA x 3, pleasant, ill-appearing, in mild distress. NECK: Supple, no JVD. RESPIRATORY: clear to auscultation bilaterally, no wheezes or rales. CARDIOVASCULAR: S1, S2 normal, rate rhythm regular. EXTREMITY: left lower extremity edema NEURO: speech fluent. PSYCHIATRY: Normal mood and judgment Family History Asthma Cancer SISTER (Breast cancer) Chronic kidney disease MOTHER Diabetes mellitus FATHER Heart disease FATHER Hypertension FATHER MOTHER Kidney disease Kidney stones Stroke Negative for CKD / ESRD Social History Smoking Status: Never smoker Drug Use: none Marital Status: Housing Status: lives with family Occupation: retired . Retired. Never a smoker. Laboratory Results Past 24 Hours 07/24/17 06:43 07/24/17 06:43 Test 07/23/17 15:13 07/23/17 22:55 07/24/17 06:43 Activated Partial Thromboplast Time 35.9 SECONDS (21.0-31.0) 105.6 SECONDS (21.0-31.0) 57.6 SECONDS (21.0-31.0) Partial Thromboplastin Ratio 1.4 4.1 2.2 Red Blood Count 3.44 M/uL (4.2-5.4) Mean Corpuscular Volume 98.3 fL (80-100) Mean Corpuscular Hemoglobin 32.3 pg (25-34) Mean Corpuscular Hemoglobin Concent 32.8 g/dl (32-36) RDW Standard Deviation 58.3 fL (36.4-46.3) RDW Coefficient of Variation 18.4 % (11.5-14.5) Mean Platelet Volume 10.2 fL (7.4-10.4) Prothrombin Time 15.6 SECONDS (9.0-12.0) Prothromb Time International Ratio 1.4 (0.9-1.1) Anion Gap 8.0 mmol/L (3-11) Est Creatinine Clear Calc Drug Dose 10.4 ml/min Estimated GFR () 12.1 Estimated GFR (Non- 10.5 BUN/Creatinine Ratio 7.8 (10-20) Calcium Level 8.4 mg/dl (8.5-10.1) Magnesium Level 2.7 mg/dl (1.8-2.4) Allergies Coded Allergies: No Known Allergies (Unverified , 04/20/17) Medications Current Inpatient Medications Medications (Trade) Dose Ordered Sig/Janeth Route Start Time Stop Time Status Last Admin Dose Admin Acetaminophen (Tylenol Tab) 650 mg Q4H PRN PO 07/15/17 20:15 08/14/17 20:14 07/24/17 01:40 650 MG Ondansetron HCl (Zofran Inj) 4 mg Q6H PRN IV 07/15/17 20:15 08/14/17 20:14 07/18/17 08:44 4 MG Nitroglycerin (Nitrostat Tab) 0.4 mg UD PRN SL 07/15/17 20:15 08/14/17 20:14 Allopurinol (Zyloprim Tab) 50 mg QAM PO 07/16/17 09:00 08/15/17 08:59 07/24/17 08:05 50 MG Amiodarone HCl (Cordarone Tab) 200 mg QAM PO 07/16/17 09:00 08/15/17 08:59 07/24/17 08:05 200 MG Clopidogrel Bisulfate (plAVix TAB) 75 mg QPM PO 07/15/17 21:00 08/14/17 20:59 Future hold 07/23/17 20:33 75 MG Levothyroxine Sodium (Synthroid Tab) 75 mcg DAILYBB PO 07/16/17 06:00 08/15/17 06:59 07/24/17 05:56 75 MCG Multivitamins (Multivitamin Tab) 2 tab QAM PO 07/16/17 09:00 08/15/17 08:59 07/24/17 07:59 2 TAB Oxycodone HCl (Roxicodone Immediate Rel Tab) Pain 5-8 - give 5mg Pain 9... Q4H PRN PO 07/15/17 20:15 07/29/17 20:14 07/18/17 06:16 10 MG Pantoprazole Sodium (Protonix Tab) 40 mg QAM PO 07/16/17 09:00 08/15/17 08:59 07/24/17 07:59 40 MG Rosuvastatin Calcium (Crestor Tab) 10 mg HS PO 07/15/17 21:00 08/14/17 20:59 07/23/17 20:33 10 MG Senna/Docusate Sodium (Senokot S Tab) 1 tab BID PO 07/15/17 21:00 08/14/17 20:59 07/24/17 08:05 1 TAB Sevelamer HCl (Renagel Tab) 800 mg TIDM PO 07/16/17 07:30 08/15/17 07:59 07/24/17 08:06 800 MG Polyethylene (Miralax Powder Packet) 17 gm BID PO 07/15/17 21:00 08/14/17 20:59 07/24/17 07:58 17 GM Guaifenesin (Mucinex Contr Rel Tab) 600 mg Q12 PO 07/15/17 21:00 08/14/17 20:59 07/24/17 08:00 600 MG Albuterol/ Ipratropium (Duoneb) 3 ml Q2H PRN INH 07/15/17 20:15 08/14/17 20:14 Albuterol/ Ipratropium (Duoneb) 3 ml Q4R INH 07/16/17 00:00 08/15/17 00:00 07/24/17 07:51 3 ML Cefepime HCl (Consult) 1 ea UD PRN N/A 07/15/17 21:45 08/14/17 21:44 Cefepime HCl 500 mg/Syringe 5.5 ml @ 5.5 mls/min Q24H IV 07/16/17 18:00 07/24/17 17:59 07/23/17 17:33 5.5 MLS/MIN Menthol (Nice Artem) 1 artem PRN PRN PO 07/17/17 20:30 08/16/17 20:29 07/17/17 20:30 1 ARTEM Heparin Sodium (Porcine) (Heparin 100 Unit/ml 5ml Flush) 5 ml PRN PRN FLUSH 07/17/17 23:00 08/16/17 22:59 Benzonatate (Tessalon Perles Cap) 100 mg TID PO 07/18/17 14:00 08/17/17 13:59 07/24/17 08:05 100 MG Enteral Nutritional Formula (Boost Breeze Nutritional Drink) 1 box TIDM PO 07/18/17 16:45 08/17/17 16:44 07/21/17 07:14 1 BOX Heparin Sodium/ Dextrose 500 ml @ 17 mls/hr Q24H PRN IV 07/19/17 09:00 08/18/17 08:44 Future hold 07/24/17 01:36 17 MLS/HR Fluticasone Propionate (Flonase Nasal [place]) 2 sprays DAILY NA 07/20/17 10:30 08/19/17 10:29 07/23/17 07:45 2 SPRAYS Sodium Chloride ([place] Nasal [place]) 1 sprays PRN PRN NA 07/21/17 07:30 08/20/17 07:29 Warfarin Sodium (Coumadin Tab) 2 mg QPM PO 07/23/17 21:00 08/22/17 20:59 07/23/17 20:33 2 MG Codeine Phosphate/ Guaifenesin (Robitussin-AC Sugar Free Syrup) 5 ml Q6H PO 07/23/17 12:00 07/26/17 11:59 07/24/17 05:56 5 ML Prednisone (PredniSONE TAB) 20 mg DAILY PO 07/24/17 09:00 08/19/17 08:59 07/24/17 07:59 20 MG Impression (1) Hypoxia (2) ESRD (end stage renal disease) on dialysis (3) Bronchopneumonia (4) Anemia (5) Aortic stenosis (6) Atrial fibrillation (7) Coronary artery disease (8) Loosening of prosthetic hip Ms. Rahman was admitted with hypoxemia. She has a recent h/o LLL pneumonia. She presented w/ a 3 day h/o cough productive of yellow sputum and progressive dyspnea. CXR revealed a small stable L pleural effusion. There were no infiltrates. Patient has been compliant w/ her MWF HD schedule. She is only 1 kg above her dry weight. Clinically suspect that her dyspnea is related to recurrent bronchopneumonia Recommendations -- Had HD yesterday, tolerated well, had 3 liters ultra filtration. -- Blood pressure , volume status and electrolyte acceptable. Patient has outpatient dialysis spot available whenever she is ready for discharge -- Will provide RANJAN w/ dialysis treatments as needed (target Hgb 10 - 11) -- Patient is currently on Cefipime and Prednisone taper -- OK to proceed w/ chest CT if necessary with persistent cough and SOB
--- NOTE | 2017-07-24 12:16 | Progress Note ---
Subjective Date of Service: Jul 24, 2017. Subjective Pt evaluation today including: conversation w/ patient, conversation w/ family , physical exam, chart review, lab review, review of studies, conversation w/ biztalk consultant, review of inpatient medication list Sitting up in bed, doing breathing treatment, deny fever and chills, sob is in baseline, cough has been better, generally feeling stronger Problem List Medical Problems: (1) Ambulatory dysfunction Status: Acute (2) Back pain Status: Acute (3) CHF (congestive heart failure) Status: Acute (4) Chronic kidney insufficiency Status: Acute (5) Chronic renal failure Status: Acute (6) Congestive heart failure Status: Acute (7) Congestive heart failure Status: Acute (8) E16.2 Status: Acute (9) Elevated INR Status: Acute (10) Elevated troponin Status: Acute (11) GI bleed Status: Acute (12) Hypotension Status: Acute (13) Left leg DVT Status: Acute (14) Pancytopenia Status: Acute (15) Pneumonia Status: Acute (16) Pneumonia Status: Acute (17) Pneumonia Status: Acute (18) Pulmonary edema Status: Acute (19) Respiratory distress Status: Acute (20) Respiratory failure with hypoxia Status: Acute (21) Sepsis Status: Acute (22) Sepsis Status: Acute (23) ST segment changes on electrocardiogram Status: Acute (24) Substernal precordial chest pain Status: Acute (25) Substernal precordial chest pain Status: Acute (26) Symptomatic anemia Status: Acute (27) Weakness Status: Acute Review of Systems Constitutional: + weakness, No fever, No chills, No sweats, No weight loss, No fatigue, No problem reported Eyes: No worsening of vision, No eye pain, No redness, No discharge, No diplopia ENT: No hearing loss, No unusual epistaxis, No nasal symptoms, No sore throat, No tinnitus, No dental problems, No trouble swallowing Respiratory: + cough, + shortness of breath, No sputum, No wheezing, No dyspnea on exertion, No dyspnea at rest, No hemoptysis Cardiac: + edema (2+), No chest pain, No orthopnea, No PND, No claudication, No palpitations Abdomen: No pain, No nausea, No vomiting, No diarrhea, No constipation Musculoskeletal: + swelling, No joint pain, No muscle pain, No calf pain Female : No dysuria, No urinary frequency, No hematuria, No incontinence, No abnormal vaginal bleeding, No vaginal discharge Neurologic: No memory loss, No paralysis, No weakness, No numbness/tingling, No vertigo, No balance problems Psychiatric: No depression symptoms, No anhedonism, No anxiety, No insomnia, No substance abuse Heme: No abnormal bleeding/bruising, No clotting problems, No swollen lymph nodes, No night sweats Endo: No fatigue, No excessive thirst, No excessive urination Skin: No rash, No itch, No new/changing skin lesions, No color change, No bleeding Objective Vital Signs Date Time Temp Pulse Resp B/P (MAP) Pulse Ox O2 Delivery O2 Flow Rate FiO2 07/24/17 11:28 66 16 99 Nasal Cannula 2.0 07/24/17 11:25 35.8 69 22 112/51 (71) 100 Nasal Cannula 2.0 07/24/17 08:00 Nasal Cannula 2.0 07/24/17 07:40 36.7 82 22 124/69 (87) 100 Nasal Cannula 2.5 07/24/17 07:20 78 16 96 Nasal Cannula 2.0 07/24/17 04:56 36.4 73 19 116/56 (76) 99 Nasal Cannula 2.0 07/24/17 04:00 Nasal Cannula 2.0 07/24/17 03:08 80 20 98 Nasal Cannula 2.0 07/24/17 00:29 36.3 74 19 116/61 (79) 99 Nasal Cannula 2.0 Humidified Oxygen 07/24/17 00:10 78 16 99 Nasal Cannula 2.0 07/24/17 00:00 Nasal Cannula 2.0 07/23/17 21:06 36.6 72 18 110/54 (72) 99 Nasal Cannula 2.0 07/23/17 20:00 99 Nasal Cannula 2.0 07/23/17 19:35 71 20 97 Nasal Cannula 2.0 07/23/17 19:16 36.7 71 22 112/47 (68) 97 Nasal Cannula 2.0 07/23/17 16:30 99 Nasal Cannula 2.0 07/23/17 15:01 65 18 99 Nasal Cannula 2.0 07/23/17 14:16 Nasal Cannula 07/23/17 14:10 71 16 124/41 (68) 100 Nasal Cannula 07/23/17 13:54 36.4 68 123/58 (79) 11/20/17 13:25 36.5 70 126/56 (79) 07/23/17 13:15 68 123/58 07/23/17 13:00 67 123/58 07/23/17 12:45 68 122/57 07/23/17 12:30 68 125/67 07/23/17 12:15 68 120/56 Physical Exam General Appearance: WD/WN, no apparent distress, + pertinent finding (frail and chronically ill-looking) Eyes: normal inspection, PERRL, EOMI, sclerae normal ENT: normal ENT inspection, hearing grossly normal, pharynx normal Neck: supple, no adenopathy, thyroid normal, no JVD, no carotid bruits, trachea midline Respiratory/Chest: chest non-tender, normal breath sounds, no respiratory distress, no accessory muscle use, + decreased breath sounds, + rales (in left base of the lung) Cardiovascular: regular rate, rhythm, no edema, no gallop, no JVD, no murmur Abdomen: normal bowel sounds, non tender, soft, no organomegaly, no pulsatile mass Extremities: normal range of motion, non-tender, normal inspection, no pedal edema, no calf tenderness, normal capillary refill, pelvis stable Neurologic/Psychiatric: motion picture photographer II-XII nml as tested, no motor/sensory deficits, alert, normal mood/affect, oriented x 3 Skin: normal color, warm/dry, no rash Lymphatic: no adenopathy Laboratory Results Last 24 Hours Test 07/23/17 15:13 07/23/17 22:55 07/24/17 06:43 Activated Partial Thromboplast Time 35.9 SECONDS 105.6 SECONDS 57.6 SECONDS Partial Thromboplastin Ratio 1.4 4.1 2.2 White Blood Count 9.36 K/uL Red Blood Count 3.44 M/uL Hemoglobin 11.1 g/dL Hematocrit 33.8 % Mean Corpuscular Volume 98.3 fL Mean Corpuscular Hemoglobin 32.3 pg Mean Corpuscular Hemoglobin Concent 32.8 g/dl RDW Standard Deviation 58.3 fL RDW Coefficient of Variation 18.4 % Platelet Count 194 K/uL Mean Platelet Volume 10.2 fL Prothrombin Time 15.6 SECONDS Prothromb Time International Ratio 1.4 Sodium Level 134 mmol/L Potassium Level 3.7 mmol/L Chloride Level 97 mmol/L Carbon Dioxide Level 29 mmol/L Anion Gap 8.0 mmol/L Blood Urea Nitrogen 29 mg/dl Creatinine 3.70 mg/dl Est Creatinine Clear Calc Drug Dose 10.4 ml/min Estimated GFR () 12.1 Estimated GFR (Non- 10.5 BUN/Creatinine Ratio 7.8 Random Glucose 165 mg/dl Calcium Level 8.4 mg/dl Magnesium Level 2.7 mg/dl Assessment and Plan 87 yo F w/ hx of ESRD on Dialysis admitted on 07/15/2017 because of progressive SOB found to have Acute Hypoxic Resp Failure, Has been continue clinically improved, SOB at baseline, but has a lot of dry cough Acute hypoxic respiratory failure: likely secondary to asthma exacerbation , all fluid overload from CHF exacerbation, and end-stage renal disease on dialysis continue oxygen, incentive spirometry/pulmonary toilet, Continue Prednisone 20 mg daily, started from tomorrow we'll taper down 5 mg every 3 days, continue Mucinex, changed Robitussin with codeine as needed to scheduled Possible hospital/healthcare acquired pneumonia, has been on IV cefepime (Day 7 ) for 10 total days. (previously on Vanco+ Cefepime + Levaquin at admission), Levaquin d/c'd 07/17 due to prolonged qtc of 512, Vanc d/c'd 07/15 due to neg MRSA swab Anemia secondary to CKD, Continue Erythropoeitin per data analytics developer Left pleural effusion, stable and improving , Outpatient thoracentesis to be considered per Pulmonology if needed 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, renal follow-up, continue Dialysis Sunday, Sunday and Sunday Permacath removal, s/p permacath removal 07/20, Hx DVT, continue heparin bridging for warfarin which was previously held due to surgery , restarted warfarin, INRtherapeutic., Continue bridge with heparin, Continue to monitor PT/INR CAD (s/p CABG 1996, stent to RCA 2006, obstructed SVGs to the diagonal and ramus branches), Hx Multiple NSTEMIs and STEMI, Paroxysmal AFib, Ischemic 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 to severe , mod. MR), Continue amiodarone and rosuvastatin, has restarted Clopidogrel - echo showed type 2 DD, enlarged left atrium, mildly elevated RVSP, mod aortic stenosis Gout Hypothyroidism Hyponatremia Above condition stable, will follow-up Discharge planning: home with home health, possible discharge in 2-3 days Continued [facility] stay due to: multiple IV medications needed Discharge planning: home with home health
[2017-07-24] MEDS: ROSUVASTATIN CALCIUM 10 MG TAB PO SCH (20:52)
[2017-07-24] MEDS: CLOPIDOGREL BISULFATE 75 MG TAB PO SCH (20:54)
[2017-07-24] MEDS: WARFARIN SOD 2 MG TAB PO SCH (20:56)
[2017-07-25] VITALS (29 sets, daily range): BP systolic 107–140; BP diastolic 51–83; PULSE 64–81; TEMP 36.3–36.8; O2SAT 96–100
[2017-07-25] MEDS: GUAIFENESIN/CODEINE 100MG/10MG 5ML UDC PO SCH ×5 (03:10→23:18)
[2017-07-25] MEDS: ALBUT/IPRATROP 3MG/0.5MG NEB 3 ML VIAL INH SCH ×6 (04:00→23:03)
[2017-07-25] MEDS: LEVOTHYROXINE 75 MCG TAB PO SCH (06:04)
[2017-07-25 06:56] LABS: INR 1.6 (0.9-1.1); PROTHROMBIN TIME (PATIENT) 17.8 SECONDS (9.0-12.0)
[2017-07-25] MEDS: FLUTICASONE PROPIONATE NA SPR 16 GM BTL SCH (07:40)
[2017-07-25] MEDS: BOOST BREEZE NUTRITION DRINK 1 BOX PO SCH ×2 (07:40→11:46)
[2017-07-25] MEDS: SEVELAMER HYDROCH 800 MG TAB PO SCH ×3 (07:40→17:19)
[2017-07-25] MEDS: AMIODARONE 200 MG TAB PO SCH (07:42)
[2017-07-25] MEDS: ALLOPURINOL 100 MG TAB PO SCH (07:42)
[2017-07-25] MEDS: GUAIFENESIN 600 MG TABCR PO SCH ×2 (07:42→20:54)
[2017-07-25] MEDS: MULTIVITAMIN TAB PO SCH (07:44)
[2017-07-25] MEDS: BENZONATATE 100MG CAP PO SCH ×3 (07:44→20:52)
[2017-07-25] MEDS: PANTOprazole SOD 40 MG TAB PO SCH (07:44)
[2017-07-25] MEDS: POLYETHYLENE (MIRALAX) 17 GM PACK PO SCH ×2 (07:45→20:52)
[2017-07-25] MEDS: DOCUSATE SODIUM/SENNA 50/8.6MG TAB PO SCH ×2 (07:45→20:53)
--- NOTE | 2017-07-25 10:39 | Nephrology Progress Note ---
Nephrology Progress Note Date of Service Jul 25, 2017. Chief Complaint Follow-up for end-stage renal disease on hemodialysis. José Huang Was seen and examined in her room this morning. She overall feels well, denies any shortness of breath however she continues to be bothered by cough. Blood pressure has been stable. Volume status acceptable. Review of Systems A complete review of systems was performed. Pertinent positives are noted above. All other systems are negative. Vital Signs Last 8 Hrs Date Time Temp Pulse Resp B/P (MAP) Pulse Ox O2 Delivery O2 Flow Rate FiO2 07/25/17 07:07 72 18 98 Nasal Cannula 2.0 07/25/17 04:13 36.7 69 18 110/62 (78) 100 Nasal Cannula 2.0 07/25/17 04:00 Nasal Cannula 2.0 Last Recorded Weight Weight (Kilograms): 70.100 Physical Exam GENERAL: elderly female, AAA x 3, pleasant, ill-appearing, in mild distress. NECK: Supple, no JVD. RESPIRATORY: clear to auscultation bilaterally, no wheezes or rales. CARDIOVASCULAR: S1, S2 normal, rate rhythm regular. EXTREMITY: left lower extremity edema NEURO: speech fluent. PSYCHIATRY: Normal mood and judgment Family History Asthma Cancer SISTER (Breast cancer) Chronic kidney disease MOTHER Diabetes mellitus FATHER Heart disease FATHER Hypertension FATHER MOTHER Kidney disease Kidney stones Stroke Negative for CKD / ESRD Social History Smoking Status: Never smoker Drug Use: none Marital Status: Housing Status: lives with family Occupation: retired . Retired. Never a smoker. Laboratory Results Past 24 Hours Test 07/25/17 06:40 07/25/17 10:22 Prothrombin Time 17.8 SECONDS (9.0-12.0) Prothromb Time International Ratio 1.6 (0.9-1.1) Allergies Coded Allergies: No Known Allergies (Unverified , 04/20/17) Medications Current Inpatient Medications Medications (Trade) Dose Ordered Sig/Janeth Route Start Time Stop Time Status Last Admin Dose Admin Acetaminophen (Tylenol Tab) 650 mg Q4H PRN PO 07/15/17 20:15 08/14/17 20:14 07/24/17 01:40 650 MG Ondansetron HCl (Zofran Inj) 4 mg Q6H PRN IV 07/15/17 20:15 08/14/17 20:14 07/18/17 08:44 4 MG Nitroglycerin (Nitrostat Tab) 0.4 mg UD PRN SL 07/15/17 20:15 08/14/17 20:14 Allopurinol (Zyloprim Tab) 50 mg QAM PO 07/16/17 09:00 08/15/17 08:59 07/25/17 07:42 50 MG Amiodarone HCl (Cordarone Tab) 200 mg QAM PO 07/16/17 09:00 08/15/17 08:59 07/24/17 08:05 200 MG Clopidogrel Bisulfate (plAVix TAB) 75 mg QPM PO 07/15/17 21:00 08/14/17 20:59 Future hold 07/24/17 20:54 75 MG Levothyroxine Sodium (Synthroid Tab) 75 mcg DAILYBB PO 07/16/17 06:00 08/15/17 06:59 07/25/17 06:04 75 MCG Multivitamins (Multivitamin Tab) 2 tab QAM PO 07/16/17 09:00 08/15/17 08:59 07/25/17 07:44 2 TAB Oxycodone HCl (Roxicodone Immediate Rel Tab) Pain 5-8 - give 5mg Pain 9... Q4H PRN PO 07/15/17 20:15 07/29/17 20:14 07/18/17 06:16 10 MG Pantoprazole Sodium (Protonix Tab) 40 mg QAM PO 07/16/17 09:00 08/15/17 08:59 07/25/17 07:44 40 MG Rosuvastatin Calcium (Crestor Tab) 10 mg HS PO 07/15/17 21:00 08/14/17 20:59 07/24/17 20:52 10 MG Senna/Docusate Sodium (Senokot S Tab) 1 tab BID PO 07/15/17 21:00 08/14/17 20:59 07/25/17 07:45 1 TAB Sevelamer HCl (Renagel Tab) 800 mg TIDM PO 07/16/17 07:30 08/15/17 07:59 07/25/17 07:40 800 MG Polyethylene (Miralax Powder Packet) 17 gm BID PO 07/15/17 21:00 08/14/17 20:59 07/25/17 07:45 17 GM Guaifenesin (Mucinex Contr Rel Tab) 600 mg Q12 PO 07/15/17 21:00 08/14/17 20:59 07/25/17 07:42 600 MG Albuterol/ Ipratropium (Duoneb) 3 ml Q2H PRN INH 07/15/17 20:15 08/14/17 20:14 Albuterol/ Ipratropium (Duoneb) 3 ml Q4R INH 07/16/17 00:00 08/15/17 00:00 07/25/17 07:03 3 ML Menthol (Nice Artem) 1 artem PRN PRN PO 07/17/17 20:30 08/16/17 20:29 07/17/17 20:30 1 ARTEM Heparin Sodium (Porcine) (Heparin 100 Unit/ml 5ml Flush) 5 ml PRN PRN FLUSH 07/17/17 23:00 08/16/17 22:59 Benzonatate (Tessalon Perles Cap) 100 mg TID PO 07/18/17 14:00 08/17/17 13:59 07/25/17 07:44 100 MG Enteral Nutritional Formula (Boost Breeze Nutritional Drink) 1 box TIDM PO 07/18/17 16:45 08/17/17 16:44 07/21/17 07:14 1 BOX Heparin Sodium/ Dextrose 500 ml @ 17 mls/hr Q24H PRN IV 07/19/17 09:00 08/18/17 08:44 Future hold 07/24/17 10:39 17 MLS/HR Fluticasone Propionate (Flonase Nasal [place]) 2 sprays DAILY NA 07/20/17 10:30 08/19/17 10:29 07/25/17 07:40 2 SPRAYS Sodium Chloride ([place] Nasal [place]) 1 sprays PRN PRN NA 07/21/17 07:30 08/20/17 07:29 Warfarin Sodium (Coumadin Tab) 2 mg QPM PO 07/23/17 21:00 08/22/17 20:59 07/24/17 20:56 2 MG Codeine Phosphate/ Guaifenesin (Robitussin-AC Sugar Free Syrup) 5 ml Q6H PO 07/23/17 12:00 07/26/17 11:59 07/25/17 03:10 5 ML Prednisone (PredniSONE TAB) 20 mg DAILY PO 07/24/17 09:00 08/19/17 08:59 07/25/17 07:43 20 MG Impression (1) Hypoxia (2) ESRD (end stage renal disease) on dialysis (3) Bronchopneumonia (4) Anemia (5) Aortic stenosis (6) Atrial fibrillation (7) Coronary artery disease (8) Loosening of prosthetic hip Ms. Rahman was admitted with hypoxemia. She has a recent h/o LLL pneumonia. She presented w/ a 3 day h/o cough productive of yellow sputum and progressive dyspnea. CXR revealed a small stable L pleural effusion. There were no infiltrates. Patient has been compliant w/ her MWF HD schedule. She is only 1 kg above her dry weight. Clinically suspect that her dyspnea is related to recurrent bronchopneumonia Recommendations -- plan for hemodialysis this afternoon with 3 K bath. Next dialysis will be at outpatient unit on Sunday. -- Blood pressure , volume status and electrolyte acceptable. -- Will provide RANJAN w/ dialysis treatments as needed (target Hgb 10 - 11) -- Patient is currently on Cefipime and Prednisone taper -- OK to be discharge whenever medically stable
--- NOTE | 2017-07-25 12:18 | Progress Note ---
Subjective Date of Service: Jul 25, 2017. Subjective Pt evaluation today including: conversation w/ patient, conversation w/ family , physical exam, chart review, lab review, review of studies, conversation w/ microsoft dynamics consultant, review of inpatient medication list see patient in HD unit, tire, still alot cough, non productive Problem List Medical Problems: (1) Ambulatory dysfunction Status: Acute (2) Back pain Status: Acute (3) CHF (congestive heart failure) Status: Acute (4) Chronic kidney insufficiency Status: Acute (5) Chronic renal failure Status: Acute (6) Congestive heart failure Status: Acute (7) Congestive heart failure Status: Acute (8) E16.2 Status: Acute (9) Elevated INR Status: Acute (10) Elevated troponin Status: Acute (11) GI bleed Status: Acute (12) Hypotension Status: Acute (13) Left leg DVT Status: Acute (14) Pancytopenia Status: Acute (15) Pneumonia Status: Acute (16) Pneumonia Status: Acute (17) Pneumonia Status: Acute (18) Pulmonary edema Status: Acute (19) Respiratory distress Status: Acute (20) Respiratory failure with hypoxia Status: Acute (21) Sepsis Status: Acute (22) Sepsis Status: Acute (23) ST segment changes on electrocardiogram Status: Acute (24) Substernal precordial chest pain Status: Acute (25) Substernal precordial chest pain Status: Acute (26) Symptomatic anemia Status: Acute (27) Weakness Status: Acute Review of Systems Constitutional: + weakness, + fatigue, No fever, No chills, No sweats, No weight loss, No problem reported Eyes: No worsening of vision, No eye pain, No redness, No discharge, No diplopia ENT: No hearing loss, No unusual epistaxis, No nasal symptoms, No sore throat, No tinnitus, No dental problems, No trouble swallowing Respiratory: + cough, + shortness of breath, No sputum, No wheezing, No dyspnea on exertion, No dyspnea at rest, No hemoptysis Cardiac: No chest pain, No orthopnea, No PND, No edema, No claudication, No palpitations Abdomen: No pain, No nausea, No vomiting, No diarrhea, No constipation Musculoskeletal: No joint pain, No muscle pain, No swelling, No calf pain Female : No dysuria, No urinary frequency, No hematuria, No incontinence, No abnormal vaginal bleeding, No vaginal discharge Neurologic: No memory loss, No paralysis, No weakness, No numbness/tingling, No vertigo, No balance problems Psychiatric: No depression symptoms, No anhedonism, No anxiety, No insomnia, No substance abuse Heme: No abnormal bleeding/bruising, No clotting problems, No swollen lymph nodes, No night sweats Endo: No fatigue, No excessive thirst, No excessive urination Skin: No rash, No itch, No new/changing skin lesions, No color change, No bleeding Objective Vital Signs Date Time Temp Pulse Resp B/P (MAP) Pulse Ox O2 Delivery O2 Flow Rate FiO2 07/25/17 12:00 79 132/65 07/25/17 11:45 79 140/64 07/25/17 11:30 77 134/71 07/25/17 11:15 77 136/71 07/25/17 11:00 78 138/70 07/25/17 10:45 81 132/69 07/25/17 10:30 77 136/70 07/25/17 10:15 78 136/67 07/25/17 10:00 75 135/69 07/25/17 09:51 76 126/66 07/25/17 08:00 Nasal Cannula 2.0 07/25/17 07:07 72 18 98 Nasal Cannula 2.0 07/25/17 04:13 36.7 69 18 110/62 (78) 100 Nasal Cannula 2.0 07/25/17 04:00 Nasal Cannula 2.0 07/25/17 00:00 Nasal Cannula 2.0 07/24/17 23:33 36.7 75 18 121/64 (83) 100 Nasal Cannula 2.0 07/24/17 23:13 76 16 98 Nasal Cannula 2.0 07/24/17 20:00 Nasal Cannula 2.0 07/24/17 19:55 36.6 71 22 112/65 (81) 100 Nasal Cannula 2.5 07/24/17 19:25 69 16 99 Nasal Cannula 2.0 07/24/17 16:00 Nasal Cannula 2.0 07/24/17 15:35 36.8 78 20 118/62 (80) 100 Nasal Cannula 2.0 07/24/17 15:23 78 16 98 Nasal Cannula 2.0 Physical Exam General Appearance: WD/WN, no apparent distress, + thin, + pertinent finding ( frail, ) Eyes: normal inspection, PERRL, EOMI, sclerae normal ENT: normal ENT inspection, hearing grossly normal, pharynx normal Neck: supple, no adenopathy, thyroid normal, no JVD, no carotid bruits, trachea midline Respiratory/Chest: chest non-tender, normal breath sounds, no respiratory distress, no accessory muscle use, + decreased breath sounds Cardiovascular: regular rate, rhythm, no edema, no gallop, no JVD, no murmur Abdomen: normal bowel sounds, non tender, soft, no organomegaly, no pulsatile mass Extremities: normal range of motion, non-tender, normal inspection, no pedal edema, no calf tenderness, normal capillary refill, pelvis stable Neurologic/Psychiatric: type disk quality control supervisor II-XII nml as tested, no motor/sensory deficits, alert, normal mood/affect, oriented x 3 Skin: normal color, warm/dry, no rash Lymphatic: no adenopathy Laboratory Results Last 24 Hours Test 07/25/17 06:40 07/25/17 10:45 Prothrombin Time 17.8 SECONDS Prothromb Time International Ratio 1.6 Assessment and Plan 87 yo F w/ hx of ESRD on Dialysis admitted on 07/15/2017 because of progressive SOB found to have Acute Hypoxic Resp Failure, Has been continue clinically improved, SOB at baseline, but dry cough has no obvious improving Acute hypoxic respiratory failure: likely secondary to asthma exacerbation , or fluid overload from CHF exacerbation, and end-stage renal disease on dialysis continue oxygen, incentive spirometry/pulmonary toilet, has been on Prednisone 20 mg daily, started from today we'll taper down 5 mg every 3 days, continue Mucinex, changed Robitussin with codeine as needed to scheduled Possible hospital/healthcare acquired pneumonia, has been on IV cefepime (Day 10 ) for 10 total days on 07/24/2017. (previously on Vanco+ Cefepime + Levaquin at admission), Levaquin d/c'd 07/17 due to prolonged qtc of 512, Vanc d/c'd 07/15 due to neg MRSA swab will check Chest Ct w/o cont b/c persistent cough with hx of copd and chf exac Anemia secondary to CKD, Continue Erythropoeitin per mental health nurse practitioner Left pleural effusion, stable and improving , Outpatient thoracentesis to be considered per Pulmonology if needed 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, renal follow-up, continue Dialysis Sunday, Sunday and Sunday Permacath removal, s/p permacath removal 07/20, Hx DVT, continue heparin bridging for warfarin which was previously held due to surgery , restarted warfarin, INRtherapeutic., Continue bridge with heparin, Continue to monitor PT/INR CAD (s/p CABG 1996, stent to RCA 2006, obstructed SVGs to the diagonal and ramus branches), Hx Multiple NSTEMIs and STEMI, Paroxysmal AFib, Ischemic 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 to severe , mod. MR), Continue amiodarone and rosuvastatin, has restarted Clopidogrel - echo showed type 2 DD, enlarged left atrium, mildly elevated RVSP, mod aortic stenosis Gout Hypothyroidism Hyponatremia Above condition stable, will follow-up Discharge planning: home with home health tomorrow, f/u chest Ct, and cough, and PT OT result Continued [facility] stay due to: home environment unsafe for pt Discharge planning: home with home health
--- NOTE | 2017-07-25 15:00 | DIAGNOSTIC IMAGING REPORT ---
CT OF THE CHEST WITHOUT IV CONTRAST CLINICAL HISTORY: Persistent cough. Acute respiratory failure with hypoxia. COMPARISON STUDY: Chest CT January 11, 2017 and chest radiograph July 21, 2017. CT DOSE: 223.87 mGy.cm TECHNIQUE: Axial images of the chest were obtained without IV contrast. Images were reviewed in the axial, sagittal, and coronal planes. IV contrast was not administered for this examination. A dose lowering technique was utilized adhering to the principles of ALARA. FINDINGS: There are median sternotomy wires. Moderate cardiomegaly is noted. There is no pericardial effusion. There is extensive coronary artery calcification in extensive atherosclerotic plaque of the thoracic aorta. The central pulmonary arteries are mildly dilated. Trace right and [id number] left pleural effusions are noted. Associated left lower lobe opacity favors atelectasis. Mild groundglass opacities within the lungs are noted with mild interlobular septal thickening which suggests pulmonary edema. Lungs are suboptimally assessed due to respiratory motion artifact. There is mild bronchial wall thickening. Multifocal secretions are noted within the bilateral lower lobe segmental bronchi. There is no central obstructing mass. There is no pneumothorax. No suspicious osseous lesions are present. There are no pathologically enlarged thoracic lymph nodes. Upper abdomen is unremarkable with the exception of extensive atherosclerotic plaque. Gallbladder is surgically absent. IMPRESSION: 1. Small to moderate left and trace right pleural effusions. Associated left lower lobe segmental opacity favors atelectasis. An infectious could appear similar although is considered less likely. 2. Interlobular septal thickening and mild groundglass opacities which suggest pulmonary edema. 3. Moderate cardiomegaly and extensive coronary artery calcification. Electronically signed by: Timmy Candelaria M.D. 07/25/2017 2:59 PM Dictated Date/Time: 07/25/2017 2:48 PM
[2017-07-25] MEDS ORDERED: BOOST BREEZE NUTRITION DRINK 1 BOX PO SCH (15:15)
[2017-07-25 16:41] LABS: INR 1.7 (0.9-1.1); PARTIAL THROMBOPLASTIN RATIO 1.2; PROTHROMBIN TIME (PATIENT) 18.7 SECONDS (9.0-12.0)
--- NOTE | 2017-07-25 16:51 | CARDIOLOGY PROGRESS NOTE ---
DATE: 07/25/2017 DATE: 07/25/2017 SUBJECTIVE: Mrs. Rahman is resting comfortably in the bedside chair without complaints of chest pain, dyspnea, or palpitations. OBJECTIVE: VITAL SIGNS: Blood pressure 127/83 with a regular pulse of 78. Respiratory rate is 18. The patient is afebrile at 36.3 degrees Celsius. Saturations 99% on 2 liters nasal cannula. NECK: Supple with full carotid strokes. No obvious bruits. Jugular venous pressure is flat at 90 degrees. There is no thyromegaly. CARDIOVASCULAR EXAMINATION: Reveals a regular rhythm with a 2/6 basal systolic ejection murmur. No S3 or S4. S2 is audible at the apex. LUNGS: Clear without rales, rhonchi, or wheezes. ABDOMEN: Obese without bruits. EXTREMITIES: Reveal intact radial artery pulse on the right. Left upper extremity AV fistula has a palpable thrill. Trace pretibial edema is noted. DATA: None. IMPRESSION AND PLAN: 1. Chronic diastolic congestive heart failure - volume status managed by hemodialysis. Echocardiogram done earlier this month notes a normal ejection fraction with an inferior wall motion abnormality. Continue medical management. 2. Coronary artery disease -- status post CABG x4 in 1996. In 2006, PCI of the right coronary was performed. Saphenous vein graft to the ramus and diagonal were obstructed at that time. Medical management recommended. 3. Paroxysmal atrial fibrillation -- remains in sinus rhythm. 4. Hypertension -- controlled. 5. Hypercholesterolemia. 6. Moderate aortic stenosis. 7. End stage renal disease.
[2017-07-25] MEDS ORDERED: HEPARIN IV BOLUS 4,000 UNIT in SYRINGE 0 ML IV ONE (17:15)
[2017-07-25] MEDS: HEPARIN 25,000 UNIT/500ML D5W 500 ML IV PRN ×2 (17:17→20:50)
[2017-07-25] MEDS: CLOPIDOGREL BISULFATE 75 MG TAB PO SCH (20:53)
[2017-07-25] MEDS: ROSUVASTATIN CALCIUM 10 MG TAB PO SCH (20:53)
[2017-07-25] MEDS: WARFARIN SOD 2 MG TAB PO SCH (20:53)
[2017-07-25] MEDS: ACETAMINOPHEN 325 MG TAB PO PRN (23:17)
[2017-07-26] VITALS (19 sets, daily range): BP systolic 115–153; BP diastolic 51–75; PULSE 65–92; TEMP 36.6–36.9; O2SAT 93–100
[2017-07-26 00:15] LABS: PARTIAL THROMBOPLASTIN RATIO 2.9
[2017-07-26] MEDS: HEPARIN 25,000 UNIT/500ML D5W 500 ML IV PRN (01:00)
[2017-07-26] MEDS: ALBUT/IPRATROP 3MG/0.5MG NEB 3 ML VIAL INH SCH ×6 (03:28→23:11)
[2017-07-26] MEDS: LEVOTHYROXINE 75 MCG TAB PO SCH (06:09)
[2017-07-26] MEDS: GUAIFENESIN/CODEINE 100MG/10MG 5ML UDC PO SCH ×2 (06:10→22:08)
[2017-07-26 06:59] LABS: PARTIAL THROMBOPLASTIN RATIO 2.4
[2017-07-26 07:24] LABS: BUN/CREATININE RATIO 7.2 (10-20); CALCIUM 8.3 mg/dl (8.5-10.1); CREATININE 2.99 mg/dl (0.60-1.20); MAGNESIUM 2.3 mg/dl (1.8-2.4); PHOSPHORUS 3.8 mg/dl (2.5-4.9); POTASSIUM 3.4 mmol/L (3.5-5.1)
[2017-07-26] MEDS: POLYETHYLENE (MIRALAX) 17 GM PACK PO SCH ×2 (08:13→21:14)
[2017-07-26] MEDS: FLUTICASONE PROPIONATE NA SPR 16 GM BTL SCH (08:15)
[2017-07-26] MEDS: GUAIFENESIN 600 MG TABCR PO SCH ×2 (08:16→21:13)
[2017-07-26] MEDS: SEVELAMER HYDROCH 800 MG TAB PO SCH ×3 (08:16→17:35)
[2017-07-26] MEDS: AMIODARONE 200 MG TAB PO SCH (08:16)
[2017-07-26] MEDS: MULTIVITAMIN TAB PO SCH (08:17)
[2017-07-26] MEDS: PANTOprazole SOD 40 MG TAB PO SCH (08:18)
[2017-07-26] MEDS: DOCUSATE SODIUM/SENNA 50/8.6MG TAB PO SCH ×2 (08:18→21:13)
[2017-07-26] MEDS: BENZONATATE 100MG CAP PO SCH ×3 (08:19→21:14)
[2017-07-26] MEDS: ALLOPURINOL 100 MG TAB PO SCH (08:20)
[2017-07-26 09:55] LABS: INR 1.8 (0.9-1.1); PROTHROMBIN TIME (PATIENT) 19.5 SECONDS (9.0-12.0)
--- NOTE | 2017-07-26 10:41 | Nephrology Progress Note ---
Nephrology Progress Note Date of Service Jul 26, 2017. Chief Complaint Follow-up for end-stage renal disease on hemodialysis. José Huang Was seen and examined in her room this morning. She overall feels well, denies any shortness of breath but she continues to be bothered by cough. Blood pressure has been stable. Volume status acceptable. Had >2 L UF with HD yesterday. Review of Systems A complete review of systems was performed. Pertinent positives are noted above. All other systems are negative. Vital Signs Last 8 Hrs Date Time Temp Pulse Resp B/P (MAP) Pulse Ox O2 Delivery O2 Flow Rate FiO2 07/26/17 08:00 100 Nasal Cannula 2.0 07/26/17 07:29 36.6 78 20 134/54 (80) 100 Nasal Cannula 2.0 07/26/17 07:23 76 20 98 Nasal Cannula 3.0 07/26/17 04:11 36.7 76 20 121/66 (84) 100 Nasal Cannula 2.0 Humidified Oxygen 07/26/17 04:00 100 Nasal Cannula 3.0 Humidified Oxygen 07/26/17 03:28 73 20 98 Nasal Cannula 3.0 Last Recorded Weight Weight (Kilograms): 68.900 Physical Exam GENERAL: elderly female, AAA x 3, pleasant, ill-appearing, in mild distress. NECK: Supple, no JVD. RESPIRATORY: clear to auscultation bilaterally, no wheezes or rales. CARDIOVASCULAR: S1, S2 normal, rate rhythm regular. EXTREMITY: left lower extremity edema NEURO: speech fluent. PSYCHIATRY: Normal mood and judgment Family History Asthma Cancer SISTER (Breast cancer) Chronic kidney disease MOTHER Diabetes mellitus FATHER Heart disease FATHER Hypertension FATHER MOTHER Kidney disease Kidney stones Stroke Negative for CKD / ESRD Social History Smoking Status: Never smoker Drug Use: none Marital Status: Housing Status: lives with family Occupation: retired . Retired. Never a smoker. Laboratory Results Past 24 Hours 07/26/17 06:20 Test 07/25/17 16:12 07/25/17 23:28 07/26/17 06:20 Prothrombin Time 18.7 SECONDS (9.0-12.0) 19.5 SECONDS (9.0-12.0) Prothromb Time International Ratio 1.7 (0.9-1.1) 1.8 (0.9-1.1) Activated Partial Thromboplast Time 31.3 SECONDS (21.0-31.0) 76.2 SECONDS (21.0-31.0) 63.2 SECONDS (21.0-31.0) Partial Thromboplastin Ratio 1.2 2.9 2.4 Anion Gap 7.0 mmol/L (3-11) Est Creatinine Clear Calc Drug Dose 12.9 ml/min Estimated GFR () 15.7 Estimated GFR (Non- 13.6 BUN/Creatinine Ratio 7.2 (10-20) Calcium Level 8.3 mg/dl (8.5-10.1) Phosphorus Level 3.8 mg/dl (2.5-4.9) Magnesium Level 2.3 mg/dl (1.8-2.4) Allergies Coded Allergies: No Known Allergies (Unverified , 04/20/17) Medications Current Inpatient Medications Medications (Trade) Dose Ordered Sig/Janeth Route Start Time Stop Time Status Last Admin Dose Admin Acetaminophen (Tylenol Tab) 650 mg Q4H PRN PO 07/15/17 20:15 08/14/17 20:14 07/25/17 23:17 650 MG Ondansetron HCl (Zofran Inj) 4 mg Q6H PRN IV 07/15/17 20:15 08/14/17 20:14 07/18/17 08:44 4 MG Nitroglycerin (Nitrostat Tab) 0.4 mg UD PRN SL 07/15/17 20:15 08/14/17 20:14 Allopurinol (Zyloprim Tab) 50 mg QAM PO 07/16/17 09:00 08/15/17 08:59 07/26/17 08:20 50 MG Amiodarone HCl (Cordarone Tab) 200 mg QAM PO 07/16/17 09:00 08/15/17 08:59 07/26/17 08:16 200 MG Clopidogrel Bisulfate (plAVix TAB) 75 mg QPM PO 07/15/17 21:00 08/14/17 20:59 Future hold 07/25/17 20:53 75 MG Levothyroxine Sodium (Synthroid Tab) 75 mcg DAILYBB PO 07/16/17 06:00 08/15/17 06:59 07/26/17 06:09 75 MCG Multivitamins (Multivitamin Tab) 2 tab QAM PO 07/16/17 09:00 08/15/17 08:59 07/26/17 08:17 2 TAB Oxycodone HCl (Roxicodone Immediate Rel Tab) Pain 5-8 - give 5mg Pain 9... Q4H PRN PO 07/15/17 20:15 07/29/17 20:14 07/18/17 06:16 10 MG Pantoprazole Sodium (Protonix Tab) 40 mg QAM PO 07/16/17 09:00 08/15/17 08:59 07/26/17 08:18 40 MG Rosuvastatin Calcium (Crestor Tab) 10 mg HS PO 07/15/17 21:00 08/14/17 20:59 07/25/17 20:53 10 MG Senna/Docusate Sodium (Senokot S Tab) 1 tab BID PO 07/15/17 21:00 08/14/17 20:59 07/26/17 08:18 1 TAB Sevelamer HCl (Renagel Tab) 800 mg TIDM PO 07/16/17 07:30 08/15/17 07:59 07/26/17 08:16 800 MG Polyethylene (Miralax Powder Packet) 17 gm BID PO 07/15/17 21:00 08/14/17 20:59 07/26/17 08:13 17 GM Guaifenesin (Mucinex Contr Rel Tab) 600 mg Q12 PO 07/15/17 21:00 08/14/17 20:59 07/26/17 08:16 600 MG Albuterol/ Ipratropium (Duoneb) 3 ml Q2H PRN INH 07/15/17 20:15 08/14/17 20:14 07/25/17 23:25 3 ML Albuterol/ Ipratropium (Duoneb) 3 ml Q4R INH 07/16/17 00:00 08/15/17 00:00 07/26/17 07:23 3 ML Menthol (Nice Artem) 1 artem PRN PRN PO 07/17/17 20:30 08/16/17 20:29 07/17/17 20:30 1 ARTEM Heparin Sodium (Porcine) (Heparin 100 Unit/ml 5ml Flush) 5 ml PRN PRN FLUSH 07/17/17 23:00 08/16/17 22:59 Benzonatate (Tessalon Perles Cap) 100 mg TID PO 07/18/17 14:00 08/17/17 13:59 07/26/17 08:19 100 MG Heparin Sodium/ Dextrose 500 ml @ 17 mls/hr Q24H PRN IV 07/19/17 09:00 08/18/17 08:44 Future hold 07/26/17 01:00 17 MLS/HR Fluticasone Propionate (Flonase Nasal [place]) 2 sprays DAILY NA 07/20/17 10:30 08/19/17 10:29 07/26/17 08:15 2 SPRAYS Sodium Chloride ([place] Nasal [place]) 1 sprays PRN PRN NA 07/21/17 07:30 08/20/17 07:29 Warfarin Sodium (Coumadin Tab) 2 mg QPM PO 07/23/17 21:00 08/22/17 20:59 07/25/17 20:53 2 MG Codeine Phosphate/ Guaifenesin (Robitussin-AC Sugar Free Syrup) 5 ml Q6H PO 07/23/17 12:00 07/26/17 11:59 07/26/17 06:10 5 ML Prednisone (PredniSONE TAB) 15 mg DAILY PO 07/26/17 09:00 08/19/17 08:59 07/26/17 08:18 15 MG Impression (1) Hypoxia (2) ESRD (end stage renal disease) on dialysis (3) Bronchopneumonia (4) Anemia (5) Aortic stenosis (6) Atrial fibrillation (7) Coronary artery disease (8) Loosening of prosthetic hip Ms. Rahman was admitted with hypoxemia. She has a recent h/o LLL pneumonia. She presented w/ a 3 day h/o cough productive of yellow sputum and progressive dyspnea. CXR revealed a small stable L pleural effusion. There were no infiltrates. Patient has been compliant w/ her MWF HD schedule. She is only 1 kg above her dry weight. Clinically suspect that her dyspnea is related to recurrent bronchopneumonia Recommendations -- plan for next hemodialysis tomorrow, will try to challenge EDW if BP tolerates -- Blood pressure , volume status and electrolyte acceptable. -- Will provide RANJAN w/ dialysis treatments as needed (target Hgb 10 - 11) -- Patient is currently on Cefipime and Prednisone taper -- OK to be discharge whenever medically stable
[2017-07-26] MEDS ORDERED: NURSING VERBAL MED ORDER ONE ×2 (12:15→21:45)
--- NOTE | 2017-07-26 17:19 | Hospitalist Progress Note ---
Hospitalist Progress Note Date of Service Jul 26, 2017. Subjective Pt evaluation today including: conversation w/ patient, conversation w/ family Voiding: no voiding problems Still having quite a bit of mostly dry cough. SOB overall is improved since admission. No N/V/D/C, no abd pain, robb po. No other complaints. INR not therapeutic today, remains on heparin gtt. All Other Systems: Reviewed and Negative Objective Vital Signs Date Time Temp Pulse Resp B/P (MAP) Pulse Ox O2 Delivery O2 Flow Rate FiO2 07/26/17 16:08 36.6 68 18 128/51 (76) 100 07/26/17 15:01 69 18 99 Nasal Cannula 2.0 07/26/17 12:00 100 Nasal Cannula 2.0 07/26/17 11:37 36.8 72 18 119/54 (75) 99 Nasal Cannula 2.0 07/26/17 11:12 74 18 98 Nasal Cannula 2.0 07/26/17 08:00 100 Nasal Cannula 2.0 07/26/17 07:29 36.6 78 20 134/54 (80) 100 Nasal Cannula 2.0 07/26/17 07:23 76 20 98 Nasal Cannula 3.0 07/26/17 04:11 36.7 76 20 121/66 (84) 100 Nasal Cannula 2.0 Humidified Oxygen 07/26/17 04:00 100 Nasal Cannula 3.0 Humidified Oxygen 07/26/17 03:28 73 20 98 Nasal Cannula 3.0 07/26/17 00:00 100 Nasal Cannula 3.0 Humidified Oxygen 07/25/17 23:57 36.8 78 18 137/65 (89) 99 Nasal Cannula 2.0 07/25/17 23:25 77 20 100 Nasal Cannula 2.0 07/25/17 20:00 97 Nasal Cannula 2.0 07/25/17 19:09 69 20 100 Nasal Cannula 2.0 07/25/17 19:03 36.4 64 20 107/69 (82) 100 Nasal Cannula 2.0 Humidified Oxygen Physical Exam General Appearance: WD/WN, no apparent distress (with frequent cough, sitting in chair) Eyes: normal inspection, sclerae normal ENT: hearing grossly normal Neck: trachea midline Respiratory/Chest: no respiratory distress, no accessory muscle use, + decreased breath sounds (at left base, otherwise +crackles at right base, decreased BS throughout) Cardiovascular: regular rate, rhythm, + systolic murmur (3/6 at RUSB), + pertinent finding (1-2+ pitting edema legs bilat to knees) Abdomen: normal bowel sounds, non tender, soft Extremities: no calf tenderness Neurologic/Psychiatric: alert, normal mood/affect, oriented x 3 Skin: normal color, warm/dry, no rash Laboratory Results Last 24 Hours Test 07/25/17 23:28 07/26/17 06:20 Activated Partial Thromboplast Time 76.2 SECONDS 63.2 SECONDS Partial Thromboplastin Ratio 2.9 2.4 Prothrombin Time 19.5 SECONDS Prothromb Time International Ratio 1.8 Sodium Level 131 mmol/L Potassium Level 3.4 mmol/L Chloride Level 94 mmol/L Carbon Dioxide Level 30 mmol/L Anion Gap 7.0 mmol/L Blood Urea Nitrogen 22 mg/dl Creatinine 2.99 mg/dl Est Creatinine Clear Calc Drug Dose 12.9 ml/min Estimated GFR () 15.7 Estimated GFR (Non- 13.6 BUN/Creatinine Ratio 7.2 Random Glucose 138 mg/dl Calcium Level 8.3 mg/dl Phosphorus Level 3.8 mg/dl Magnesium Level 2.3 mg/dl Assessment and Plan Ms. Rahman is an 87 y/o female with Hx ESRD on HD, CAD, PAF on coumadin, chronic systolic and diastolic CHF, Moderate Aortic Stenosis, Mitral Regurg, suspected left subclavian steal syndrome, Anemia of Chronic Disease with H/O GI Bleed (September 2016), DMII, HTN, HL, LLE DVT, gout and hypothyroidism, who was admitted with progressive SOB found to have Acute on chronic Hypoxic Resp Failure requiring BiPAP on admission. Acute on chronic hypoxic respiratory failure: secondary to acute bronchitis and some component of acute on chronic combined systolic and diastolic CHF, ESRD. With cough, no real infiltrate on Chest CT, but with mucus secretions, left pleural effusion, persistent cough that improves with bronchodilators. Was treated with 10 days of Cefepime, was also on Vanco and Levaquin for 1-2 days each. Cough improved with antitussives, SOB much improved since admission. Had recent admission a few weeks ago for PNA No h/o asthma or COPD on PFTs as outpt. On chronic O2 for her CHF? Question if Amiodarone toxicity is present? Pulmonology consultation obtained-thought was secondary to volume overload, considered thoracentesis but weren't sure if would help her symptoms and pt declined -continue oxygen via NC -continue incentive spirometry/pulmonary toilet -continue prednisone taper-on 15mg daily now- taper down 5 mg every 3 days -continue Mucinex -continue Robitussin with codeine and Tessalon pearls -follow CXR as outpt with pleural effusion, f/u with Pulm as outpt -checking amiodarone level, needs Pulm f/u on this Anemia secondary to CKD, Continue Erythropoietin per cotton candy maker. Hgb stable at 06-13 this admission ESRD on dialysis-stable, appreciate Nephrology consultation -continue Dialysis Sunday, Sunday and Sunday - cont Sevelamer, Renagel, renal diet Permacath removal, s/p permacath removal 07/20-had coumadin on hold, on heparin gtt for bridging for h/o DVT in last 6 months Appreciate Vascular consultation INR today 1.8 - continue heparin bridging for warfarin -Continue to monitor PT/INR and if between 2-3 tomorrow, ok for dc CAD (s/p CABG 1996, stent to RCA 2006, obstructed SVGs to the diagonal and ramus branches), Hx Multiple NSTEMIs and STEMI, Paroxysmal AFib, Ischemic CM ( EF 35-40%), HTN, Hypercholesterolemia, Combined acute on chronic systolic/ diastolic heart failure, Valvular heart disease (mod. to severe , mod. MR) Repeat ECHO here: -Low normal LVEF 50-55%, old WMAs, type 2 DD, enlarged left atrium, mildly elevated RVSP, mod aortic stenosis In NSR here. Chronically mildly elevated troponin due to ESRD Appreciate Cardiology consultation -Continue amiodarone and rosuvastatin--> Question about amiodarone toxicity playing a role in her lung issues in the last month especially given she has obvious thyroid issues -check amiodarone level, f/u with Cardiology -has restarted Clopidogrel -on coumadin for stroke prevention Hypothyroidism-TSH was 156 in 06/2017, then 176 on 07/10/17, was started on levothyroxine just a few weeks ago. Had low FT3 and FT4 in . Could be secondary to amiodarone therapy. -check TSH now -continue levothyroxine 75 mcg -consider stopping amiodarone-will d/w Cardio and Pulm after the Holiday DMII-was previously taken off meds due to persistent hypoglycemia Hyponatremia-possibly due to CHF, ESRD -volume status to be managed by Nephrology -follow PRP Proph-heparin gtt, coumadin Discharge planning: home with home health tomorrow if INR therapeutic
[2017-07-26] MEDS ORDERED: GUAIFENESIN/CODEINE 100MG/10MG 5ML UDC PO SCH (18:00)
[2017-07-26] MEDS: ROSUVASTATIN CALCIUM 10 MG TAB PO SCH (21:14)
[2017-07-26] MEDS: CLOPIDOGREL BISULFATE 75 MG TAB PO SCH (21:14)
[2017-07-26] MEDS: WARFARIN SOD 2 MG TAB PO SCH (21:14)
[2017-07-27] VITALS (26 sets, daily range): BP systolic 104–147; BP diastolic 47–72; PULSE 68–85; TEMP 36.4–37.3; O2SAT 98–100
[2017-07-27] MEDS: GUAIFENESIN/CODEINE 100MG/10MG 5ML UDC PO SCH ×4 (01:35→14:04)
[2017-07-27] MEDS: HEPARIN 25,000 UNIT/500ML D5W 500 ML IV PRN ×2 (02:51→08:14)
[2017-07-27] MEDS: ALBUT/IPRATROP 3MG/0.5MG NEB 3 ML VIAL INH SCH ×4 (03:12→15:32)
[2017-07-27] MEDS: LEVOTHYROXINE 75 MCG TAB PO SCH (05:55)
[2017-07-27 06:14] LABS: COMPLETE YES; EOS % 1.1 %; HEMATOCRIT 34.6 % (37-47); IG% 0.5 %; LYMPH % 7.8 %; LYMPH ABS # 0.62 K/uL (1.2-3.4); MEAN CELL VOLUME 100.6 fL (80-100); MEAN CORPUSCULAR HEMOGLOBIN 31.4 pg (25-34); MEAN CORPUSCULAR HGB CONC 31.2 g/dl (32-36); MEAN PLATELET VOLUME 9.7 fL (7.4-10.4); NEUT % 83.6 %; PLATELET COUNT 156 K/uL (130-400); RED BLOOD COUNT 3.44 M/uL (4.2-5.4)
[2017-07-27 06:44] LABS: CALCIUM 8.4 mg/dl (8.5-10.1); CREATININE 4.21 mg/dl (0.60-1.20); MAGNESIUM 2.5 mg/dl (1.8-2.4); POTASSIUM 3.6 mmol/L (3.5-5.1)
[2017-07-27] MEDS: POLYETHYLENE (MIRALAX) 17 GM PACK PO SCH (07:43)
[2017-07-27] MEDS: FLUTICASONE PROPIONATE NA SPR 16 GM BTL SCH (07:44)
[2017-07-27] MEDS: SEVELAMER HYDROCH 800 MG TAB PO SCH ×2 (07:44→14:05)
[2017-07-27] MEDS: MULTIVITAMIN TAB PO SCH (07:45)
[2017-07-27] MEDS: GUAIFENESIN 600 MG TABCR PO SCH (07:45)
[2017-07-27] MEDS: PANTOprazole SOD 40 MG TAB PO SCH (07:50)
[2017-07-27] MEDS: BENZONATATE 100MG CAP PO SCH ×2 (07:53→14:05)
[2017-07-27] MEDS: DOCUSATE SODIUM/SENNA 50/8.6MG TAB PO SCH (07:55)
[2017-07-27 07:57] LABS: INR 2.1 (0.9-1.1); PARTIAL THROMBOPLASTIN RATIO 2.7
--- NOTE | 2017-07-27 10:40 | Dialysis Progress Note ---
Hemodialysis Note Date of Service Jul 27, 2017. Chief Complaint Follow-up for end-stage renal disease on hemodialysis. Subjective Reina Was seen and examined during dialysis this morning. She overall feels well except continues to have cough. Has been tolerating dialysis well, vital sign remained stable. Blood pressure well controlled. Review of Systems A complete review of systems was performed. Pertinent positives are noted above. All other systems are negative. Vital Signs Last 8 Hrs Date Time Temp Pulse Resp B/P (MAP) Pulse Ox O2 Delivery O2 Flow Rate FiO2 07/27/17 09:30 77 127/60 07/27/17 09:11 37.3 82 135/54 (81) 07/27/17 07:32 Nasal Cannula 3.0 07/27/17 07:28 36.4 79 20 138/71 (93) 99 07/27/17 07:10 81 18 99 Nasal Cannula 2.0 07/27/17 04:16 36.5 82 20 132/72 (92) 100 Nasal Cannula 2.0 07/27/17 04:15 100 Nasal Cannula 2.0 07/27/17 03:12 68 16 98 Nasal Cannula 3.0 Last Recorded Weight Weight (Kilograms): 72.400 Physical Exam GENERAL: elderly female, AAA x 3, pleasant, ill-appearing, in mild distress. NECK: Supple, no JVD. RESPIRATORY: clear to auscultation bilaterally, no wheezes or rales. CARDIOVASCULAR: S1, S2 normal, rate rhythm regular. EXTREMITY: left lower extremity edema NEURO: speech fluent. PSYCHIATRY: Normal mood and judgment Family History Negative for CKD / ESRD Social History Smoking Status: Never smoker Drug Use: none Marital Status: Housing Status: lives with family Occupation: retired . Retired. Never a smoker. Laboratory Results Past 24 Hours 07/27/17 05:45 Red Blood Count 3.44, Mean Corpuscular Volume 100.6, Mean Corpuscular Hemoglobin 31.4, Mean Corpuscular Hemoglobin Concent 31.2, Mean Platelet Volume 9.7, Neutrophils (%) (Auto) 83.6, Lymphocytes (%) (Auto) 7.8, Monocytes (%) ( Auto) 7.0, Eosinophils (%) (Auto) 1.1, Basophils (%) (Auto) 0.0, Neutrophils # ( Auto) 6.60, Lymphocytes # (Auto) 0.62, Monocytes # (Auto) 0.55, Eosinophils # ( Auto) 0.09, Basophils # (Auto) 0.00 07/27/17 05:45 Test 07/27/17 05:45 White Blood Count 7.90 K/uL (4.8-10.8) Red Blood Count 3.44 M/uL (4.2-5.4) Hemoglobin 10.8 g/dL (12.0-16.0) Hematocrit 34.6 % (37-47) Mean Corpuscular Volume 100.6 fL (80-100) Mean Corpuscular Hemoglobin 31.4 pg (25-34) Mean Corpuscular Hemoglobin Concent 31.2 g/dl (32-36) Platelet Count 156 K/uL (130-400) Mean Platelet Volume 9.7 fL (7.4-10.4) Neutrophils (%) (Auto) 83.6 % Lymphocytes (%) (Auto) 7.8 % Monocytes (%) (Auto) 7.0 % Eosinophils (%) (Auto) 1.1 % Basophils (%) (Auto) 0.0 % Neutrophils # (Auto) 6.60 K/uL (1.4-6.5) Lymphocytes # (Auto) 0.62 K/uL (1.2-3.4) Monocytes # (Auto) 0.55 K/uL (0.11-0.59) Eosinophils # (Auto) 0.09 K/uL (0-0.5) Basophils # (Auto) 0.00 K/uL (0-0.2) RDW Standard Deviation 66.6 fL (36.4-46.3) RDW Coefficient of Variation 19.1 % (11.5-14.5) Immature Granulocyte % (Auto) 0.5 % Immature Granulocyte # (Auto) 0.04 K/uL (0.00-0.02) Prothrombin Time 23.0 SECONDS (9.0-12.0) Prothromb Time International Ratio 2.1 (0.9-1.1) Activated Partial Thromboplast Time 71.1 SECONDS (21.0-31.0) Partial Thromboplastin Ratio 2.7 Anion Gap 7.0 mmol/L (3-11) Est Creatinine Clear Calc Drug Dose 9.1 ml/min Estimated GFR () 10.4 Estimated GFR (Non- 9.0 BUN/Creatinine Ratio 7.0 (10-20) Calcium Level 8.4 mg/dl (8.5-10.1) Magnesium Level 2.5 mg/dl (1.8-2.4) Allergies Coded Allergies: No Known Allergies (Unverified , 04/20/17) Medications Current Inpatient Medications Medications (Trade) Dose Ordered Sig/Janeth Route Start Time Stop Time Status Last Admin Dose Admin Acetaminophen (Tylenol Tab) 650 mg Q4H PRN PO 07/15/17 20:15 08/14/17 20:14 07/25/17 23:17 650 MG Ondansetron HCl (Zofran Inj) 4 mg Q6H PRN IV 07/15/17 20:15 08/14/17 20:14 07/18/17 08:44 4 MG Nitroglycerin (Nitrostat Tab) 0.4 mg UD PRN SL 07/15/17 20:15 08/14/17 20:14 Allopurinol (Zyloprim Tab) 50 mg QAM PO 07/16/17 09:00 08/15/17 08:59 07/26/17 08:20 50 MG Amiodarone HCl (Cordarone Tab) 200 mg QAM PO 07/16/17 09:00 08/15/17 08:59 07/26/17 08:16 200 MG Clopidogrel Bisulfate (plAVix TAB) 75 mg QPM PO 07/15/17 21:00 08/14/17 20:59 Future hold 07/26/17 21:14 75 MG Levothyroxine Sodium (Synthroid Tab) 75 mcg DAILYBB PO 07/16/17 06:00 08/15/17 06:59 07/27/17 05:55 75 MCG Multivitamins (Multivitamin Tab) 2 tab QAM PO 07/16/17 09:00 08/15/17 08:59 07/27/17 07:45 2 TAB Oxycodone HCl (Roxicodone Immediate Rel Tab) Pain 5-8 - give 5mg Pain 9... Q4H PRN PO 07/15/17 20:15 07/29/17 20:14 07/18/17 06:16 10 MG Pantoprazole Sodium (Protonix Tab) 40 mg QAM PO 07/16/17 09:00 08/15/17 08:59 07/27/17 07:50 40 MG Rosuvastatin Calcium (Crestor Tab) 10 mg HS PO 07/15/17 21:00 08/14/17 20:59 07/26/17 21:14 10 MG Senna/Docusate Sodium (Senokot S Tab) 1 tab BID PO 07/15/17 21:00 08/14/17 20:59 07/27/17 07:55 1 TAB Sevelamer HCl (Renagel Tab) 800 mg TIDM PO 07/16/17 07:30 08/15/17 07:59 07/27/17 07:44 800 MG Polyethylene (Miralax Powder Packet) 17 gm BID PO 07/15/17 21:00 08/14/17 20:59 07/27/17 07:43 17 GM Guaifenesin (Mucinex Contr Rel Tab) 600 mg Q12 PO 07/15/17 21:00 08/14/17 20:59 07/27/17 07:45 600 MG Albuterol/ Ipratropium (Duoneb) 3 ml Q2H PRN INH 07/15/17 20:15 08/14/17 20:14 07/25/17 23:25 3 ML Albuterol/ Ipratropium (Duoneb) 3 ml Q4R INH 07/16/17 00:00 08/15/17 00:00 07/27/17 07:10 3 ML Menthol (Nice Artem) 1 artem PRN PRN PO 07/17/17 20:30 08/16/17 20:29 07/17/17 20:30 1 ARTEM Heparin Sodium (Porcine) (Heparin 100 Unit/ml 5ml Flush) 5 ml PRN PRN FLUSH 07/17/17 23:00 08/16/17 22:59 Benzonatate (Tessalon Perles Cap) 100 mg TID PO 07/18/17 14:00 08/17/17 13:59 07/27/17 07:53 100 MG Fluticasone Propionate (Flonase Nasal [place]) 2 sprays DAILY NA 07/20/17 10:30 08/19/17 10:29 07/27/17 07:44 2 SPRAYS Sodium Chloride ([place] Nasal [place]) 1 sprays PRN PRN NA 07/21/17 07:30 08/20/17 07:29 Warfarin Sodium (Coumadin Tab) 2 mg QPM PO 07/23/17 21:00 08/22/17 20:59 07/26/17 21:14 2 MG Prednisone (PredniSONE TAB) 15 mg DAILY PO 07/26/17 09:00 08/19/17 08:59 07/27/17 07:53 15 MG Codeine Phosphate/ Guaifenesin (Robitussin-AC Sugar Free Syrup) 5 ml Q4H PO 07/26/17 22:00 08/25/17 21:59 07/27/17 06:59 5 ML Impression (1) Hypoxia (2) ESRD (end stage renal disease) on dialysis (3) Bronchopneumonia (4) Anemia (5) Aortic stenosis (6) Atrial fibrillation (7) Coronary artery disease (8) Loosening of prosthetic hip Ms. Rahman was admitted with hypoxemia. She has a recent h/o LLL pneumonia. She presented w/ a 3 day h/o cough productive of yellow sputum and progressive dyspnea. CXR revealed a small stable L pleural effusion. There were no infiltrates. Patient has been compliant w/ her MWF HD schedule. She is only 1 kg above her dry weight. Clinically suspect that her dyspnea is related to recurrent bronchopneumonia Recommendations -- tolerating hemodialysis, will try to challenge EDW if BP tolerates, aim for 3.5 L UF -- Blood pressure , volume status and electrolyte acceptable. -- next HD Sunday -- OK to be discharge whenever medically stable
--- NOTE | 2017-07-27 11:55 | Pulmonology Progress Note ---
Pulmonary Progress Note Date of Service Jul 27, 2017. Attending Dr. Brenton Kumar Mrs. Rahman is a 87-year-old female who initially presented with acute on chronic hypoxemic respiratory failure likely secondary to possible left lower lobe pneumonia, atelectasis versus fluid overload. She initially presented with 3 day history of productive cough and yellowish sputum. She's been treated with empiric antibiotics of vancomycin and cefepime as well as prednisone taper. Initially she was on BiPAP however has been transitioned to nasal cannula. Despite this she continues to be dyspneic with intermittent cough. She has been undergoing hemodialysis on a Sunday/ Sunday/Sunday schedule. Her cumulative balance is about 2 L negative since admission. I was asked to reevaluate patient regarding chronic cough and to see whether and medially to avoid toxicity was a possible contributing factor. Objective Vital signs reviewed. Vital signs at the last 24 hours show MAXIMUM TEMPERATURE of 37.3, blood pressure 127/60 to 147/66, pulse 68-85, respiratory rate 16-20, pulse oximetry 98-100% 2 L nasal cannula General Appearance: WD/WN, no apparent distress ENT: hearing grossly normal Respiratory/Chest: no accessory muscle use, clear bilaterally Cardiovascular: regular rate, rhythm, no JVD (JVD flat at the clavicle), + systolic murmur (3/6) Abdomen: normal bowel sounds, non tender, soft Extremities: non-tender, no pedal edema, no calf tenderness Neurologic/Psychiatric: no motor/sensory deficits, alert, oriented x 3 Skin: normal color, warm/dry, no rash Labs Hemoglobin 10.8, platelet count 156. Sodium 131, potassium 3.6, chloride 95, carbon dioxide 30, BUN 29, creatinine 4.21. Glucose 135, calcium 8.4, magnesium 2.[address] OF THE CHEST WITHOUT IV CONTRAST 07/25/2017 CLINICAL HISTORY: Persistent cough. Acute respiratory failure with hypoxia. COMPARISON STUDY: Chest CT January 11, 2017 and chest radiograph July 21, 2017. CT DOSE: 223.87 mGy.cm TECHNIQUE: Axial images of the chest were obtained without IV contrast. Images were reviewed in the axial, sagittal, and coronal planes. IV contrast was not administered for this examination. A dose lowering technique was utilized adhering to the principles of ALARA. FINDINGS: There are median sternotomy wires. Moderate cardiomegaly is noted. There is no pericardial effusion. There is extensive coronary artery calcification in extensive atherosclerotic plaque of the thoracic aorta. The central pulmonary arteries are mildly dilated. Trace right and [id number] left pleural effusions are noted. Associated left lower lobe opacity favors atelectasis. Mild groundglass opacities within the lungs are noted with mild interlobular septal thickening which suggests pulmonary edema. Lungs are suboptimally assessed due to respiratory motion artifact. There is mild bronchial wall thickening. Multifocal secretions are noted within the bilateral lower lobe segmental bronchi. There is no central obstructing mass. There is no pneumothorax. No suspicious osseous lesions are present. There are no pathologically enlarged thoracic lymph nodes. Upper abdomen is unremarkable with the exception of extensive atherosclerotic plaque. Gallbladder is surgically absent. IMPRESSION: 1. Small to moderate left and trace right pleural effusions. Associated left lower lobe segmental opacity favors atelectasis. An infectious could appear similar although is considered less likely. 2. Interlobular septal thickening and mild groundglass opacities which suggest pulmonary edema. 3. Moderate cardiomegaly and extensive coronary artery calcification. CHEST ONE VIEW PORTABLE 07/21/2017 HISTORY: cough COMPARISON: Chest 07/18/2017. FINDINGS: The heart remains mildly enlarged. Small left and trace right pleural effusion persist. Left basilar densities are again noted. There is mild central pulmonary vascular congestion without overt edema. No pneumothorax. Right right hilar prominence persists. IMPRESSION: 1. No significant change compared to the prior studies. 2. Mild pulmonary vascular congestion without overt edema and cardiomegaly. 3. Trace bilateral pleural effusions and left basilar densities. Transthoracic echo from 07/17/2017 * -- Conclusions -- * 1. Normal left ventricular size with low-normal systolic function. Estimated EF 50-55%. Hypokinesis of the mid inferolateral, base to mid anteroseptum, mid to distal inferior wall segments. Akinesis of the basal septum and basal inferior wall. Septal motion consistent with bundle-branch block. Mild concentric left ventricular hypertrophy. Type 2 diastolic dysfunction. * 2. Grossly normal right ventricular size with mildly reduced systolic function. * 3. The left atrium is severely dilated. * 4. Moderate aortic stenosis. * 5. Restricted posterior mitral leaflet with eccentric, moderate regurgitation. * 6. Pleural effusion. * 7. Mildly elevated right ventricular systolic pressure; estimated RVSP 46 mmHg.(TAPSE <1.6 cm). * 8. Compared to prior study on 03/14/2017, LV systolic function has improved. Medications reviewed. Robitussin before meals 5 ML's every 4 hours by mouth Prednisone 15 mg daily by mouth daily Coumadin 2 mg by mouth daily Normal saline nasal spray Flonase nasal spray 2 sprays daily Tessalon pearls 100 mg 3 times a day by mouth Pantoprazole 40 mg Guaifenesin 600 mg every 12 hours by mouth Ipratropium/albuterol nebulizers every 2 hours when necessary for wheezing Assessment & Plan Acute on chronic hypoxic respiratory failure. Atrial fibrillation Grade 2 diastolic dysfunction Pulmonary hypertension End-stage renal disease Left lower lobe opacities Chronic cough Ms. Rahman is a 87-year-old female who presented initially with acute shortness of breath and dyspnea with worsening hypoxemia. Shortness of breath is mostly likely multifactorial in nature. CT of the chest shows that signs of pulmonary edema which appears to be chronic. Transthoracic echocardiogram shows grade 2 diastolic function as well as pulmonary hypertension. This is most likely secondary to type II pulmonary hypertension from underlying cardiac disease. The mainstay of treatment for this is to treat underlying condition. Cardiology has been on board and optimizing medications. And nephrology on board managing hemodialysis for fluid removal. She has completed an adequate course of antibiotics for the last 12 days. Infectious etiology is unlikely at this point. TSH is elevated, patient is on amiodarone for underlying atrial fibrillation. I was consulted regarding if amiodarone pneumonitis versus toxicity as a possible reason for chronic cough. Usually this is seen in older patients taking greater than 400 mg per day for more than 2 months. Symptoms usually include fever, pleuritic chest pain and weight loss. Amiodarone toxicity is a diagnosis of exclusion. The radiological findings of pleural effusions, groundglass opacities and septal thickening can be quite similar to those seen in patients with heart failure. Her most recent CT does not show any signs of bronchiectasis or pulmonary fibrosis however these are late findings of amiodarone toxicity. Recommend awaiting amiodarone and desethylamiodarone levels. Continue supplemental oxygen. Other etiologies more common for cough, such as post nasal drip/rhinitis, GERD and silent aspiration. She is PPI and flonase, which should be continued. Also, consider speech and swallow evaluation vs video swallow to rule out aspiration. Continue cough suppressant and bronchodilators Recommend for PFT as outpatient to evaluate lung function. Data Medications: Current Inpatient Medications Medications (Trade) Dose Ordered Sig/Janeth Route Start Time Stop Time Status Last Admin Dose Admin Acetaminophen (Tylenol Tab) 650 mg Q4H PRN PO 07/15/17 20:15 08/14/17 20:14 07/25/17 23:17 650 MG Ondansetron HCl (Zofran Inj) 4 mg Q6H PRN IV 07/15/17 20:15 08/14/17 20:14 07/18/17 08:44 4 MG Nitroglycerin (Nitrostat Tab) 0.4 mg UD PRN SL 07/15/17 20:15 08/14/17 20:14 Allopurinol (Zyloprim Tab) 50 mg QAM PO 07/16/17 09:00 08/15/17 08:59 07/26/17 08:20 50 MG Amiodarone HCl (Cordarone Tab) 200 mg QAM PO 07/16/17 09:00 08/15/17 08:59 07/26/17 08:16 200 MG Clopidogrel Bisulfate (plAVix TAB) 75 mg QPM PO 07/15/17 21:00 08/14/17 20:59 Future hold 07/26/17 21:14 75 MG Levothyroxine Sodium (Synthroid Tab) 75 mcg DAILYBB PO 07/16/17 06:00 08/15/17 06:59 07/27/17 05:55 75 MCG Multivitamins (Multivitamin Tab) 2 tab QAM PO 07/16/17 09:00 08/15/17 08:59 07/27/17 07:45 2 TAB Oxycodone HCl (Roxicodone Immediate Rel Tab) Pain 5-8 - give 5mg Pain 9... Q4H PRN PO 07/15/17 20:15 07/29/17 20:14 07/18/17 06:16 10 MG Pantoprazole Sodium (Protonix Tab) 40 mg QAM PO 07/16/17 09:00 08/15/17 08:59 07/27/17 07:50 40 MG Rosuvastatin Calcium (Crestor Tab) 10 mg HS PO 07/15/17 21:00 08/14/17 20:59 07/26/17 21:14 10 MG Senna/Docusate Sodium (Senokot S Tab) 1 tab BID PO 07/15/17 21:00 08/14/17 20:59 07/27/17 07:55 1 TAB Sevelamer HCl (Renagel Tab) 800 mg TIDM PO 07/16/17 07:30 08/15/17 07:59 07/27/17 07:44 800 MG Polyethylene (Miralax Powder Packet) 17 gm BID PO 07/15/17 21:00 08/14/17 20:59 07/27/17 07:43 17 GM Guaifenesin (Mucinex Contr Rel Tab) 600 mg Q12 PO 07/15/17 21:00 08/14/17 20:59 07/27/17 07:45 600 MG Albuterol/ Ipratropium (Duoneb) 3 ml Q2H PRN INH 07/15/17 20:15 08/14/17 20:14 07/25/17 23:25 3 ML Albuterol/ Ipratropium (Duoneb) 3 ml Q4R INH 07/16/17 00:00 08/15/17 00:00 07/27/17 07:10 3 ML Menthol (Nice Artem) 1 artem PRN PRN PO 07/17/17 20:30 08/16/17 20:29 07/17/17 20:30 1 ARTEM Heparin Sodium (Porcine) (Heparin 100 Unit/ml 5ml Flush) 5 ml PRN PRN FLUSH 07/17/17 23:00 08/16/17 22:59 Benzonatate (Tessalon Perles Cap) 100 mg TID PO 07/18/17 14:00 08/17/17 13:59 07/27/17 07:53 100 MG Fluticasone Propionate (Flonase Nasal [place]) 2 sprays DAILY NA 07/20/17 10:30 08/19/17 10:29 07/27/17 07:44 2 SPRAYS Sodium Chloride ([place] Nasal [place]) 1 sprays PRN PRN NA 07/21/17 07:30 08/20/17 07:29 Warfarin Sodium (Coumadin Tab) 2 mg QPM PO 07/23/17 21:00 08/22/17 20:59 07/26/17 21:14 2 MG Prednisone (PredniSONE TAB) 15 mg DAILY PO 07/26/17 09:00 08/19/17 08:59 07/27/17 07:53 15 MG Codeine Phosphate/ Guaifenesin (Robitussin-AC Sugar Free Syrup) 5 ml Q4H PO 07/26/17 22:00 08/25/17 21:59 07/27/17 10:11 5 ML Vital Signs: Date Time Temp Pulse Resp B/P (MAP) Pulse Ox O2 Delivery O2 Flow Rate FiO2 07/27/17 10:45 76 143/67 07/27/17 10:30 76 145/64 07/27/17 10:15 85 146/67 07/27/17 10:00 78 147/66 07/27/17 09:45 75 140/63 07/27/17 09:30 77 127/60 07/27/17 09:11 37.3 82 135/54 (81) 07/27/17 07:32 Nasal Cannula 3.0 07/27/17 07:28 36.4 79 20 138/71 (93) 99 07/27/17 07:10 81 18 99 Nasal Cannula 2.0 07/27/17 04:16 36.5 82 20 132/72 (92) 100 Nasal Cannula 2.0 07/27/17 04:15 100 Nasal Cannula 2.0 07/27/17 03:12 68 16 98 Nasal Cannula 3.0 07/27/17 00:00 98 Nasal Cannula 2.0 07/26/17 23:11 36.6 85 20 153/75 (101) 98 Nasal Cannula 2.0 07/26/17 21:42 78 16 98 Nasal Cannula 2.0 07/26/17 20:36 36.8 92 18 129/52 (77) 100 2.0 07/26/17 20:00 100 Nasal Cannula 2.0 07/26/17 19:21 77 16 98 Nasal Cannula 2.0 07/26/17 16:08 36.6 68 18 128/51 (76) 100 07/26/17 16:00 93 Nasal Cannula 2.0 07/26/17 15:01 69 18 99 Nasal Cannula 2.0 07/26/17 12:00 100 Nasal Cannula 2.0 07/26/17 11:37 36.8 72 18 119/54 (75) 99 Nasal Cannula 2.0 07/26/17 11:12 74 18 98 Nasal Cannula 2.0 Laboratory Results: Last 24 Hours Test 07/27/17 05:45 White Blood Count 7.90 K/uL Red Blood Count 3.44 M/uL Hemoglobin 10.8 g/dL Hematocrit 34.6 % Mean Corpuscular Volume 100.6 fL Mean Corpuscular Hemoglobin 31.4 pg Mean Corpuscular Hemoglobin Concent 31.2 g/dl Platelet Count 156 K/uL Mean Platelet Volume 9.7 fL Neutrophils (%) (Auto) 83.6 % Lymphocytes (%) (Auto) 7.8 % Monocytes (%) (Auto) 7.0 % Eosinophils (%) (Auto) 1.1 % Basophils (%) (Auto) 0.0 % Neutrophils # (Auto) 6.60 K/uL Lymphocytes # (Auto) 0.62 K/uL Monocytes # (Auto) 0.55 K/uL Eosinophils # (Auto) 0.09 K/uL Basophils # (Auto) 0.00 K/uL RDW Standard Deviation 66.6 fL RDW Coefficient of Variation 19.1 % Immature Granulocyte % (Auto) 0.5 % Immature Granulocyte # (Auto) 0.04 K/uL Prothrombin Time 23.0 SECONDS Prothromb Time International Ratio 2.1 Activated Partial Thromboplast Time 71.1 SECONDS Partial Thromboplastin Ratio 2.7 Sodium Level 131 mmol/L Potassium Level 3.6 mmol/L Chloride Level 95 mmol/L Carbon Dioxide Level 30 mmol/L Anion Gap 7.0 mmol/L Blood Urea Nitrogen 29 mg/dl Creatinine 4.21 mg/dl Est Creatinine Clear Calc Drug Dose 9.1 ml/min Estimated GFR () 10.4 Estimated GFR (Non- 9.0 BUN/Creatinine Ratio 7.0 Random Glucose 135 mg/dl Calcium Level 8.4 mg/dl Magnesium Level 2.5 mg/dl
[2017-07-27] MEDS: ALLOPURINOL 100 MG TAB PO SCH (14:04)
[2017-07-27] MEDS ORDERED: SALI0.6510 (14:45)
[2017-07-27] MEDS ORDERED: PRD5 PO (14:45)
[2017-07-27] MEDS ORDERED: GUAISYP4 PO (14:45)
[2017-07-27] MEDS ORDERED: FLNIN (14:45)
[2017-07-27] MEDS ORDERED: GFNSR600 PO (14:45)
[2017-07-27] MEDS ORDERED: BENZ100C7 PO (14:45)
--- NOTE | 2017-07-27 14:52 | Discharge Instructions ---
Discharge Instructions Date of Service Jul 27, 2017. Admission Reason for Admission: Acute Respiratory Failure With Hypoxia Discharge Discharge Diagnosis / Problem: Acute hypoxic respiratory failure, persistent cough Discharge Goals Goal(s): Improve disease control, Diagnostic testing, Therapeutic intervention Activity Recommendations Activity Limitations: as noted below Exercise/Sports Limitations: gradually increase as tolerated Shower/Bathe: no limitations . Instructions / Follow-Up Instructions / Follow-Up You were admitted with respiratory failure and required BiPAP initially. You were treated with antibiotics, but no clear pneumonia was found. You were also treated with prednisone and this will be tapered off over the next few days. There is a possibility that the amiodarone is causing your lung problems. We recommend not taking the amiodarone at least for now, and following up with both Cardiology and Pulmonology. Cardiology can follow up on your amiodarone blood level and Pulmonology can do Pulmonary Function Testing to further evaluate for this and to determine if you should start taking amiodarone again in the future. There is also a chance that you have chronic Aspiration causing your cough and shortness of breath. You should have either Pulmonology or your PCP order you a Video Swallow study as an outpatient to further evaluate for this. Please have your INR checked routinely on Sunday at dialysis. Please continue dialysis as scheduled on Sun, Sun, and Fridays. Please follow up with your PCP within 1-2 weeks as well. You should have your thyroid function repeated again in about 2 weeks. You may need an increase in the dose of your medication, however, it is improving since the last check. Current Hospital Diet Patient's current hospital diet: Renal Diet Discharge Diet Recommended Diet: Renal Diet Procedures Procedures Performed: Removal of permcath Pending Studies Studies pending at discharge: yes List of pending studies: Amiodarone level Laboratory Results Last 24 Hours TSH = 85.9 Test 07/27/17 05:45 07/27/17 14:15 White Blood Count 7.90 K/uL Red Blood Count 3.44 M/uL Hemoglobin 10.8 g/dL Hematocrit 34.6 % Mean Corpuscular Volume 100.6 fL Mean Corpuscular Hemoglobin 31.4 pg Mean Corpuscular Hemoglobin Concent 31.2 g/dl Platelet Count 156 K/uL Mean Platelet Volume 9.7 fL Neutrophils (%) (Auto) 83.6 % Lymphocytes (%) (Auto) 7.8 % Monocytes (%) (Auto) 7.0 % Eosinophils (%) (Auto) 1.1 % Basophils (%) (Auto) 0.0 % Neutrophils # (Auto) 6.60 K/uL Lymphocytes # (Auto) 0.62 K/uL Monocytes # (Auto) 0.55 K/uL Eosinophils # (Auto) 0.09 K/uL Basophils # (Auto) 0.00 K/uL RDW Standard Deviation 66.6 fL RDW Coefficient of Variation 19.1 % Immature Granulocyte % (Auto) 0.5 % Immature Granulocyte # (Auto) 0.04 K/uL Prothrombin Time 23.0 SECONDS Prothromb Time International Ratio 2.1 Activated Partial Thromboplast Time 71.1 SECONDS Partial Thromboplastin Ratio 2.7 Sodium Level 131 mmol/L Potassium Level 3.6 mmol/L Chloride Level 95 mmol/L Carbon Dioxide Level 30 mmol/L Anion Gap 7.0 mmol/L Blood Urea Nitrogen 29 mg/dl Creatinine 4.21 mg/dl Est Creatinine Clear Calc Drug Dose 9.1 ml/min Estimated GFR () 10.4 Estimated GFR (Non- 9.0 BUN/Creatinine Ratio 7.0 Random Glucose 135 mg/dl Calcium Level 8.4 mg/dl Magnesium Level 2.5 mg/dl Hemoglobin A1c Test 07/19/17 06:35 Range/Units Estimated Average Glucose 114 mg/dl Hemoglobin A1c 5.6 4.5-5.6 % Medical Emergencies . Who to Call and When: Medical Emergencies: If at any time you feel your situation is an emergency, please call 911 immediately. . Non-Emergent Contact Non-Emergency issues call your: Primary Care Provider, Desk Pen Set Assembler, Supervisor [employer] Call Non-Emergent contact if: you have a fever, temperature is above 100.5, you have any medication questions You have worsening shortness of breath or cough, or heart palpitations. . . "Provider Documentation" section prepared by Sujey Chandra. . VTE Core Measure Inpt VTE Proph given/why not?: Unfractionated heparin SQ, Warfarin (Coumadin), T.E.D. Stockings, SCD's
--- NOTE | 2017-07-27 15:07 | Discharge Summary ---
Discharge Summary Date of Service Jul 27, 2017. 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: Yes Tetanus Immunization Date: Dec 16, 2006 History of Pneumococcal: Yes Pneumococcal Date: Dec 17, 2007 History of Hepatitis B Vaccine: No Procedures: CXR x [address] Permcatheter removal Consultations: Vascular Surgery Cardiology Pulmonology Nephrology Medication Reconciliation New Medications: Benzonatate (Benzonatate) 100 Mg Cap 100 MG PO TID PRN for Cough for 10 Days, #30 CAP Fluticasone Propionate (Fluticasone Propionate) 50 Mcg/Act Spr 2 SPRAYS NA DAILY for 30 Days, #1 EA Guaifenesin Ext Rel (Mucinex Ext Rel) 600 Mg Tabcr 600 MG PO Q12 for 14 Days, #28 TAB OTC Guaifenesin/Codeine (Robitussin-Ac Syrup) Syrp 5 ML PO Q4H for 14 Days Patient has this at home already Prednisone (Prednisone) 5 Mg Tab 15 MG PO DAILY, #9 TAB x 1 day then 10mg daily x 2 days then 5mg daily x 2 days then STOP Saline ([place] Nasal [place]) 0.65 % Spr 1 SPRAYS NA PRN PRN for DRYNESS for 30 Days Continued Medications: Allopurinol (Zyloprim) 100 Mg Tab 50 MG PO QAM Clopidogrel Bisulfate (Clopidogrel) 75 Mg Tab 75 MG PO QPM Ipratropium-Albuterol (Duoneb) 3 Ml Nebu 1 TREATMENT INH Q4H PRN for SOB/Wheezing Levothyroxine Sodium (Levothyroxine Sodium) 75 Mcg Tab 75 MCG PO QAM Multiple Vitamin (Renal Multivitamin Formul) 1 Tab Tab 2 TABS PO QAM Nutritional Supplements (Colon Formula) 1 Cap Cap 1 CAP PO QAM Oxycodone Ir (Roxicodone Ir) 5 Mg Tab 1-2 TAB PO Q4H PRN for Severe Pain, #12 TAB Pantoprazole (Protonix) 40 Mg Tab 40 MG PO QAM Polyethylene Glycol 3350 (Miralax) 1 Pow Pow 17 GM PO AMPM Rosuvastatin Calcium (Crestor) 10 Mg Tab 10 MG PO HS, TAB Sennosides-Docusate Sodium (Stool Softener) 1 Tab Tab 1 TAB PO BID Sevelamer Hydroch (Renagel) 800 Mg Tab 800 MG PO TIDM, TAB Warfarin Sodium (Warfarin Sodium) 2 Mg Tab 2 MG PO QPM Discontinued Medications: Acetaminophen/Hydrocodone (Hydrocodone/Acetaminophen 5-325 mg) 1 Ea Tab 1 TAB PO Q6 Amiodarone Hcl (Cordarone) 200 Mg Tab 200 MG PO QAM Azithromycin (Azithromycin) 250 Mg Tab 250 MG PO DIRECTED Discharge Exam Pt with persistent cough, not feeling SOB, at baseline O2 requirement. No diarrhea. No other complaints. Physical Exam Vitals reviewed, Tele with NSR in 70s-80s General Appearance: WD/WN, no apparent distress (with frequent cough, sitting in chair) Eyes: normal inspection, sclerae normal ENT: hearing grossly normal Neck: trachea midline Respiratory/Chest: no respiratory distress, no accessory muscle use, + decreased breath sounds (at left base, otherwise +crackles at right base, decreased BS throughout, no wheezing) Cardiovascular: regular rate, rhythm, + systolic murmur (3/6 at RUSB), + pertinent finding (1+ pitting edema legs bilat to knees) Abdomen: normal bowel sounds, non tender, soft Extremities: no calf tenderness Neurologic/Psychiatric: alert, normal mood/affect, oriented x 3 Skin: normal color, warm/dry, no rash Review of Systems: Constitutional: No fever, No chills Eyes: No problem reported ENT: No problem reported Respiratory: + cough, + shortness of breath Cardiovascular: No chest pain Abdomen: No diarrhea, No problem reported Musculoskeletal: No problem reported Genitourinary - Female: No problem reported Neurologic: No problem reported Psychiatric: No problem reported Endocrine: No problem reported Hematologic / Lymphatic: No problem reported Integumentary: No problem reported Hospital Course Ms. Rahman is an 87 y/o female with Hx ESRD on HD, CAD, PAF on coumadin, chronic systolic and diastolic CHF, Moderate Aortic Stenosis, Mitral Regurg, suspected left subclavian steal syndrome, Anemia of Chronic Disease with H/O GI Bleed (September 2016), DMII, HTN, HL, LLE DVT, gout and hypothyroidism, who was admitted with progressive SOB found to have Acute on chronic Hypoxic Resp Failure requiring BiPAP on admission. Acute on chronic hypoxic respiratory failure: secondary to suspected acute bronchitis and some component of acute on chronic combined systolic and diastolic CHF, ESRD, with possibility of Amiodarone Pulmonary toxicity. With cough, no real infiltrate on Chest CT, but with mucus secretions, left pleural effusion, persistent cough that improves with bronchodilators. Was treated with 10 days of Cefepime, was also on Vanco and Levaquin for 1-2 days each during admission, and recent azithro as outpt Cough improves with antitussives but then returns, SOB much improved since admission. Had recent admission a few weeks ago for PNA as well. No h/o asthma or COPD on PFTs as outpt. On chronic O2 for her CHF? Question if Amiodarone toxicity is present? Pulmonology consultation obtained-initially thought was secondary to volume overload, considered thoracentesis but weren't sure if would help her symptoms and pt declined I had Pulmonology come back around to see her on day of discharge to see about Pulmonary toxicity from Amiodarone--> could appear similar to CHF on imaging, unclear, recommended PFTs as outpt. Pulm also recommended Video Swallow as outpt to r/o chronic aspiration as cause of persistent cough and SOB. -continue oxygen via NC at home -continue prednisone taper-on 15mg daily now- taper down 5 mg every 2 days -continue Mucinex -continue Robitussin with codeine and Tessalon pearls -follow CXR as outpt with pleural effusion, f/u with Pulm as outpt for PFTs, Video Swallow -HOLDING Amiodarone on discharge -checking amiodarone level, needs Pulm and Cardiology f/u on this as result not back at time of discharge-Cardiology said she may need to go back on amiodarone at follow up visit but will check level and determine what to do at outpt visit Anemia secondary to CKD, Continue Erythropoietin per front end web designer. Hgb stable at 10-11 this admission ESRD on dialysis-stable, appreciate Nephrology consultation -continue Dialysis Sunday, Sunday and Sunday - cont Sevelamer, Renagel, renal diet Permacath removal, s/p permacath removal 07/20-had coumadin on hold, on heparin gtt for bridging for h/o DVT in last 6 months Appreciate Vascular consultation INR today 2.1, heparin gtt sotpped and stable for dc to home -Continue to monitor PT/INR routinely as outpt CAD (s/p CABG 1996, stent to RCA 2006, obstructed SVGs to the diagonal and ramus branches), Hx Multiple NSTEMIs and STEMI, Paroxysmal AFib, Ischemic CM ( EF 35-40%), HTN, Hypercholesterolemia, Combined acute on chronic systolic/ diastolic heart failure, Valvular heart disease (mod. to severe , mod. MR) Repeat ECHO here: -Low normal LVEF 50-55%, old WMAs, type 2 DD, enlarged left atrium, mildly elevated RVSP, mod aortic stenosis In NSR here. Chronically mildly elevated troponin due to ESRD Appreciate Cardiology consultation -Continue amiodarone and rosuvastatin--> Question about amiodarone toxicity playing a role in her lung issues in the last month especially given she has obvious thyroid issues -check amiodarone level, f/u with Cardiology 1 week -has restarted Clopidogrel -on coumadin for stroke prevention Hypothyroidism-TSH was 156 in 06/2017, then 176 on 07/10/17, was started on levothyroxine just a few weeks ago. Had low FT3 and FT4 in . Could be secondary to amiodarone therapy. - TSH now down to 85 -continue levothyroxine 75 mcg -holding amiodarone but don't necessarily need to stop amiodarone for thyroid issues, just will treat with levothyroxine -needs repeat TSH in 2 weeks or so, may need adjustment in levothyroxine dosing , but will leave the same for now DMII-was previously taken off meds due to persistent hypoglycemia Hyponatremia-mild, possibly due to CHF, ESRD -volume status to be managed by Nephrology -follow BMP at HD Discharge to home with 24 hr caregivers and Home Health Total Time Spent: Greater than 30 minutes This includes examination of the patient, discharge planning, medication reconciliation, and communication with other providers. Discharge Instructions Please refer to the electronic Patient Visit Report (Discharge Instructions) for additional information. Follow-Up PCP within 1-2 weeks Pulmonology within 2 weeks Cardiology in 1-2 weeks Need PFTs, Video Swallow study as outpatient Follow up on amiodarone level as outpatient Additional Copies To Vipul Hernadnez M.D.; Cooper Hart M.D.; Cole Medrano PA-C
[2017-07-31 21:35] LABS: AMIODARONE 0.6 mcg/mL (1.5-2.5); DESMETHYLAMIODARONE 0.7 mcg/mL (1.5-2.5)
== END 2017-07-27 16:44 | disposition home health service (06) | DRG 291 ==
LOC: C.EDB 17:03 → C.2E 20:23 → ENRESERV 20:30 → EDBEDREQ 20:30 → ENRESERV 07-23 17:19 → C.MED 07-23 20:10
PROVIDERS: ADMIT Internal Medicine; ATTEND Family Medicine
PROC: 02PY33Z Removal of Infusion Device from Great Vessel, Percutaneous Approach (ICD-10-PCS; principal; 2017-07-20 12:15)
DX: I13.2 Hypertensive heart and chronic kidney disease with heart failure and with stage 5 chronic kidney disease, or end stage renal disease (principal); N18.6 End stage renal disease; J96.21 Acute and chronic respiratory failure with hypoxia; I50.43 Acute on chronic combined systolic (congestive) and diastolic (congestive) heart failure; J18.9 Pneumonia, unspecified organism; J45.901 Unspecified asthma with (acute) exacerbation; D63.1 Anemia in chronic kidney disease; I25.2 Old myocardial infarction; E11.22 Type 2 diabetes mellitus with diabetic chronic kidney disease; I48.0 Paroxysmal atrial fibrillation; E78.00 Pure hypercholesterolemia, unspecified; M10.9 Gout, unspecified; I25.5 Ischemic cardiomyopathy; I25.10 Atherosclerotic heart disease of native coronary artery without angina pectoris; K21.9 Gastro-esophageal reflux disease without esophagitis; Z66 Do not resuscitate; Z79.01 Long term (current) use of anticoagulants; Z79.02 Long term (current) use of antithrombotics/antiplatelets; Z79.899 Other long term (current) drug therapy; Z86.711 Personal history of pulmonary embolism; Z95.1 Presence of aortocoronary bypass graft; Z99.2 Dependence on renal dialysis; Z83.3 Family history of diabetes mellitus

== ENCOUNTER → 2017-08-14 | Outpatient (CLI) | payer OTHER ==
[~2017-08-14] MED LIST changes: -AMIO200T4 PO; +BENZ100C7 PO; +CRD200 PO; +FLNIN; +GFNSR600 PO; +GUAISYP4 PO; -HYDR-4313 PO; +LEVO75TA5 PO; +MISCCAP80 PO; -NTRGSL/4 UT; +PRD5 PO; +SALI0.6510
--- NOTE | 2017-08-14 08:29 | DIAGNOSTIC IMAGING REPORT ---
CHEST 2 VIEWS ROUTINE CLINICAL HISTORY: 87 years-old Female presenting with R05 [id number] Pleural effusion on [id number]. TECHNIQUE: PA and lateral views of the chest were obtained. COMPARISON: 07/21/2017. FINDINGS: Median sternotomy wires and mediastinal surgical clips noted. Atherosclerosis of the aortic arch. Enlargement of the cardiac silhouette, partially secured along the left heart border secondary to persistent left basilar opacity and small to moderate left pleural effusion. Trace right pleural effusion. Prominence of the hilar vasculature is stable to slightly decreased from prior. No new focal infiltrate. Degenerative changes of the thoracic spine. Upper abdomen normal. IMPRESSION: 1. Cardiomegaly with persistent left basilar consolidation and effusion. No convincing evidence of pulmonary edema though volume overload may be present. No interval worsening from prior. Electronically signed by: Ruben Membreno M.D. 08/14/2017 8:28 AM Dictated Date/Time: 08/14/2017 8:25 AM
== END | disposition home or self-care (01) ==
LOC: C.RAD 07:31
PROVIDERS: ATTEND Physician Assistant
DX: E03.9 Hypothyroidism, unspecified (principal); J90 Pleural effusion, not elsewhere classified; R05 Cough; I51.7 Cardiomegaly

== ENCOUNTER 2017-08-16 19:16 | Observation (INO) | payer OTHER ==
[~2017-08-16] VITALS: Ht 162.6 cm; Wt 67.5 kg
[~2017-08-16 19:16] MED LIST changes: -ALLO100T PO; -CRD200 PO; -MISCCAP80 PO; -OXYC1TAB3 PO; -SEVE1TAB PO; -WARF4TAB43 PO
[2017-08-16] MEDS ORDERED: SEVE1TAB PO (19:28)
[2017-08-16] MEDS ORDERED: OXYC1TAB3 PO (19:28)
[2017-08-16] MEDS ORDERED: WARF4TAB43 PO (19:31)
[2017-08-16] MEDS ORDERED: NITROGLYCERIN OINT 2% 1GM PACKET EXT STA (19:36)
[2017-08-16] MEDS ORDERED: NITROGLYCERIN OINT 2% 1GM PACKET ONE (19:43)
--- NOTE | 2017-08-16 19:44 | EMERGENCY ROOM VISIT NOTE ---
History Report prepared by Barbara: Jens Verduzco Under the Supervision of: Dr. Trevon Schwartz M.D. First contact with patient: 19:29 Chief Complaint: BACK PAIN Stated Complaint: PAIN UNDER BOTH SHOULDERS History of Present Illness The patient is an 87 year old female who presents to the Emergency Room with complaints of constant pain under her shoulder blades beginning three days ago. The patient states she has a history of heart attacks, and this pain is similar. She reports she is also short of breath. The patient notes she is a dialysis patient, and she has not missed treatment or had problems with it. She states is cannot lay flat. The patient reports she took nitro a few hours ago, and it gave her some relief. She denies abdominal pain. Source of History: patient Onset: three days ago Position: back (upper, underneath shoulder blades) Timing: constant Modifying Factors (Worsening): other (lying flat) Modifying Factors (Relieving): other (nitro) Associated Symptoms: + SOB, No abdominal pain Review of Systems See HPI for pertinent positives & negatives. A total of 10 systems reviewed and were otherwise negative. Past Medical & Surgical Medical Problems: (1) Ac Myocrd Infrct,Oth Inferior Wall,Subseq Epis Car (2) Acute kidney injury (3) Anemia (4) Aortic stenosis (5) Aortocoronary Bypass (6) Atrial fibrillation (7) Atrial fibrillation (8) Atypical angina (9) Beta-hemolytic group B streptococcal sepsis (10) Bronchopneumonia (11) Cellulitis (12) Cellulitis of right lower extremity without foot (13) CHF exacerbation (14) Chronic Kidney Disease, Stage Iii (Moderate) (15) Chronic kidney disease, stage IV (severe) (16) Chronic kidney disease, stage V (17) Coronary artery disease (18) Coronary Atherosclerosis Of [place] Coronary Vessel (19) Diab Qiana Wo Compl, Type Ii Or Unspec Type, Not Uncntrld (20) Diabetes (21) DVT (deep venous thrombosis) (22) Dyspnea (23) 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 (24) ESRD (end stage renal disease) on dialysis (25) History of MD (myocardial infarction) (26) History of pulmonary embolism (27) Hypertension (28) Hypertension Nos (29) Hypotension (30) Knee Joint Replacement Status (31) Leukocytosis (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 (33) Moderate aortic stenosis (34) New onset atrial fibrillation (35) NSTEMI (non-ST elevated myocardial infarction) (36) NSTEMI (non-ST elevated myocardial infarction) (37) Old Myocardial Infarct (38) Percutaneous Translum Coron Angioplasty Status (39) Peripheral vascular disease (40) Pneumonia, Organism Nos (41) Positive blood culture (42) Prolonged Q-T interval on ECG (43) Pulmonary embolism (44) Pure Hypercholesterolem (45) Rectal bleeding (46) Right hip pain (47) Sepsis due to infected intravenous catheter (48) Shortness of breath (49) Urin Tract Infection Nos Family History Asthma Cancer SISTER (Breast cancer) Chronic kidney disease MOTHER Diabetes mellitus FATHER Heart disease FATHER Hypertension FATHER MOTHER Kidney disease Kidney stones Stroke Social History Smoking Status: Never Smoker Alcohol Use: none Drug Use: none Marital Status: Housing Status: lives alone Occupation Status: retired Current/Historical Medications Scheduled Allopurinol (Zyloprim), 50 MG PO QAM Amiodarone HCl (Amiodarone HCl), 200 MG PO Q2D Clopidogrel Bisulfate (Clopidogrel), 75 MG PO QPM Fluticasone Propionate (Fluticasone Propionate), 2 SPRAYS NA DAILY Guaifenesin Ext Rel (Mucinex Ext Rel), 600 MG PO Q12 Levothyroxine Sodium (Levothyroxine Sodium), 75 MCG PO QAM Multiple Vitamin (Renal Multivitamin Formul), 2 TABS PO QAM Pantoprazole (Protonix), 40 MG PO QAM Polyethylene Glycol 3350 (Miralax), 17 GM PO AMPM Probiotic Product (Probiotic), 1 CAP PO DAILY Rosuvastatin Calcium (Crestor), 10 MG PO HS Sennosides-Docusate Sodium (Stool Softener), 1 TAB PO BID Sevelamer Hydroch (Renagel), 800 MG PO TIDM Warfarin Sodium (Warfarin Sodium), 2 MG PO QPM Scheduled PRN Guaifenesin/Codeine (Robitussin-Ac Syrup), 5 ML PO Q4 PRN for Ipratropium-Albuterol (Duoneb), 1 TREATMENT INH Q4H PRN for SOB/Wheezing Oxycodone Ir (Roxicodone Ir), 1-2 TAB PO Q4H PRN for Severe Pain Saline ([place] Nasal [place]), 1 SPRAYS NA PRN PRN for DRYNESS Allergies Coded Allergies: No Known Allergies (Unverified , 04/20/17) Physical Exam Vital Signs Date Time Temp Pulse Resp B/P (MAP) Pulse Ox O2 Delivery O2 Flow Rate FiO2 08/16/17 20:56 76 08/16/17 20:56 76 16 124/55 95 Room Air 08/16/17 20:46 77 21 95 08/16/17 19:49 96 Room Air 08/16/17 19:49 96 Room Air 08/16/17 19:24 36.7 85 18 118/73 96 Room Air Physical Exam GENERAL: Patient is a healthy-appearing well-nourished 87 year old female. HEAD: Normocephalic atraumatic EYES: Ocular movements intact pupils equal and react to light OROPHARYNX mucous membranes are moist no exudates present no erythema or edema present NECK: Supple no nuchal rigidity CHEST: Good equal expansion LUNGS: Clear and equal to auscultation CARDIAC: 2/6 systolic murmur ABDOMEN: Soft nontender no guarding BACK: No CVA tenderness EXTREMITIES: No pain upon palpation normal muscle strength in all groups no clubbing cyanosis or edema Fistula in left arm. Chronic skin discoloration. NEURO: Patient is following commands and answering questions appropriately. Alert and oriented x3 Cranial Nerves 2-12 grossly intact Medical Decision & Procedures ER Provider Diagnostic Interpretation: X-ray results as stated below per interpretation by me and the radiologist: CHEST ONE VIEW PORTABLE HISTORY: Atypical CHEST PAIN COMPARISON: Chest 08/14/2017. FINDINGS: The heart remains enlarged. Post anatomy changes. Slight progression of the mild interstitial thickening suggestive of mild congestive change. Slight improvement in the left basilar consolidation and small left pleural effusion. No pneumothorax. IMPRESSION: 1. Slight progression of the mild interstitial thickening suggestive of developing pulmonary edema. 2. Left lower lobe consolidation and a small left pleural effusion has improved. Electronically signed by: Trell Cannon M.D. 08/16/2017 8:30 PM Dictated Date/Time: 08/16/2017 8:28 PM Laboratory Results 08/16/17 20:00 Red Blood Count 3.52, Mean Corpuscular Volume 103.4, Mean Corpuscular Hemoglobin 32.1, Mean Corpuscular Hemoglobin Concent 31.0, Mean Platelet Volume 10.6, Neutrophils (%) (Auto) 50.9, Lymphocytes (%) (Auto) 32.7, Monocytes (%) ( Auto) 14.3, Eosinophils (%) (Auto) 1.4, Basophils (%) (Auto) 0.5, Neutrophils # (Auto) 2.24, Lymphocytes # (Auto) 1.44, Monocytes # (Auto) 0.63, Eosinophils # ( Auto) 0.06, Basophils # (Auto) 0.02 08/16/17 20:00 Test 08/16/17 20:00 08/16/17 21:24 White Blood Count 4.40 K/uL (4.8-10.8) Red Blood Count 3.52 M/uL (4.2-5.4) Hemoglobin 11.3 g/dL (12.0-16.0) Hematocrit 36.4 % (37-47) Mean Corpuscular Volume 103.4 fL (80-100) Mean Corpuscular Hemoglobin 32.1 pg (25-34) Mean Corpuscular Hemoglobin Concent 31.0 g/dl (32-36) Platelet Count 177 K/uL (130-400) Mean Platelet Volume 10.6 fL (7.4-10.4) Neutrophils (%) (Auto) 50.9 % Lymphocytes (%) (Auto) 32.7 % Monocytes (%) (Auto) 14.3 % Eosinophils (%) (Auto) 1.4 % Basophils (%) (Auto) 0.5 % Neutrophils # (Auto) 2.24 K/uL (1.4-6.5) Lymphocytes # (Auto) 1.44 K/uL (1.2-3.4) Monocytes # (Auto) 0.63 K/uL (0.11-0.59) Eosinophils # (Auto) 0.06 K/uL (0-0.5) Basophils # (Auto) 0.02 K/uL (0-0.2) RDW Standard Deviation 66.3 fL (36.4-46.3) RDW Coefficient of Variation 17.7 % (11.5-14.5) Immature Granulocyte % (Auto) 0.2 % Immature Granulocyte # (Auto) 0.01 K/uL (0.00-0.02) Anion Gap 7.0 mmol/L (3-11) Est Creatinine Clear Calc Drug Dose 11.0 ml/min Estimated GFR () 11.8 Estimated GFR (Non- 10.2 BUN/Creatinine Ratio 8.9 (10-20) Calcium Level 8.6 mg/dl (8.5-10.1) Total Bilirubin 0.4 mg/dl (0.2-1) Direct Bilirubin 0.1 mg/dl (0-0.2) Aspartate Amino Transf (AST/SGOT) 17 U/L (15-37) Alanine Aminotransferase (ALT/SGPT) 14 U/L (12-78) Alkaline Phosphatase 115 U/L (45-117) Total Creatine Kinase 17 U/L (26-192) Creatine Kinase MB 1.0 ng/ml (0.5-3.6) Creatine Kinase MB Ratio 5.9 (0-3.0) Troponin I 0.053 ng/ml (0-0.045) Total Protein 6.6 gm/dl (6.4-8.2) Albumin 2.5 gm/dl (3.4-5.0) Lipase 156 U/L (73-393) Activated Partial Thromboplast Time 35.2 SECONDS (21.0-31.0) Partial Thromboplastin Ratio 1.4 Phenytoin (Dilantin) Level 0.6 mcg/mL (10-20) Labs reviewed by ED physician. Medications Administered Medications (Trade) Dose Ordered Sig/Janeth Route Start Time Stop Time Status Last Admin Dose Admin Nitroglycerin (Nitroglycerin 2% Oint) 1 inch NOW STAT EXT 08/16/17 19:36 08/16/17 19:38 DC 08/16/17 19:47 1 INCH ECG Indication: back/shoulder pain Rate (beats per minute): 82 Rhythm: normal sinus Findings: no acute ischemic change, no ectopy, other (left ventricular hypertrophy, QRs widening) Comparison ECG Date: 07/21/17 Change: no significant change ED Course 1930: Past medical records reviewed. The patient was evaluated in room C07. A complete history and physical examination was performed. 1935: Ordered Nitroglycerin 1 inch EXT 2100: Ordered Sodium Chloride 500 ml @ 999 mls/hr IV 2108: I discussed the patient's case with Dr. Gutierrez, [facility] Hospitalist. The patient will be evaluated for further management and care. Medical Decision Differential diagnosis: Etiologies such as cardiac ischemia, aortic dissection, pulmonary embolism, pneumonia, pneumothorax, musculoskeletal, infections, pericarditis, myocarditis , esophageal rupture, gastrointestinal, as well as others were entertained. This is an 87-year-old female who presents emergency department complaining of back pain that was relieved by nitroglycerin. The patient has a history of coronary stents and the patient has a history of cardiac pain that is felt in her back. The patient was given nitroglycerin. Repeat examination revealed improvement patient's symptoms. Medication Reconcilliation Current Medication List: was personally reviewed by me Blood Pressure Screening Patient's blood pressure: Normal blood pressure Blood pressure disposition: Did not require urgent referral Consults Time Called: 2100 Consulting Physician: Dr. Gutierrez [facility] Hospitalist Returned Call: [phone] I discussed the patient's case with Dr. Gutierrez [facility] Hospitalist. The patient will be evaluated for further management and care. Impression Primary Impression: Precordial chest pain Scribe Attestation The scribe's documentation has been prepared under my direction and personally reviewed by me in its entirety. I confirm that the note above accurately reflects all work, treatment, procedures, and medical decision making performed by me. Departure Information Dispostion Being Evaluated By Hospitalist Referrals Cooper Hart M.D. (PCP) Patient Instructions My [facility]
[2017-08-16] MEDS ORDERED: MISCCAP80 PO (20:19)
[2017-08-16 20:20] LABS: BASO % 0.5 %; BASO ABS # 0.02 K/uL (0-0.2); COMPLETE YES; EOS % 1.4 %; HEMATOCRIT 36.4 % (37-47); IG% 0.2 %; LYMPH % 32.7 %; LYMPH ABS # 1.44 K/uL (1.2-3.4); MEAN CELL VOLUME 103.4 fL (80-100); MEAN CORPUSCULAR HEMOGLOBIN 32.1 pg (25-34); MEAN PLATELET VOLUME 10.6 fL (7.4-10.4); MONO % 14.3 %; NEUT % 50.9 %; PLATELET COUNT 177 K/uL (130-400); RED BLOOD COUNT 3.52 M/uL (4.2-5.4)
[2017-08-16] MEDS ORDERED: GUAISYP4 PO (20:26)
--- NOTE | 2017-08-16 20:31 | DIAGNOSTIC IMAGING REPORT ---
CHEST ONE VIEW PORTABLE HISTORY: Atypical CHEST PAIN COMPARISON: Chest 08/14/2017. FINDINGS: The heart remains enlarged. Post anatomy changes. Slight progression of the mild interstitial thickening suggestive of mild congestive change. Slight improvement in the left basilar consolidation and small left pleural effusion. No pneumothorax. IMPRESSION: 1. Slight progression of the mild interstitial thickening suggestive of developing pulmonary edema. 2. Left lower lobe consolidation and a small left pleural effusion has improved. Electronically signed by: Trell Cannon M.D. 08/16/2017 8:30 PM Dictated Date/Time: 08/16/2017 8:28 PM
[2017-08-16 20:51] LABS: BUN/CREATININE RATIO 8.9 (10-20); CALCIUM 8.6 mg/dl (8.5-10.1); CREATININE 3.79 mg/dl (0.60-1.20); POTASSIUM 4.3 mmol/L (3.5-5.1)
[2017-08-16 20:59] LABS: CKMB/CK RATIO 5.9 (0-3.0)
[2017-08-16] MEDS ORDERED: SODIUM CHLORIDE 0.9% 500ML 500 ML IV STA (21:01)
[2017-08-16] MEDS ORDERED: CRD200 PO (21:09)
[2017-08-16 21:45] LABS: PARTIAL THROMBOPLASTIN RATIO 1.4
[2017-08-16] MEDS ORDERED: GUAIFENESIN/CODEINE 200MG/20MG 10ML UDC PO PRN (22:30)
[2017-08-16] MEDS ORDERED: POLYETHYLENE (MIRALAX) 17 GM PACK PO PRN (22:30)
[2017-08-16] MEDS ORDERED: ALBUT/IPRATROP 3MG/0.5MG NEB 3 ML VIAL INH PRN (22:30)
[2017-08-16] MEDS ORDERED: MoRPHine SULFATE 2 MG/ML CARP IV PRN (22:30)
[2017-08-16] MEDS ORDERED: OXYCODONE HCL IR 5 MG TAB (IMMEDIATE RELEASE) PO PRN (22:30)
[2017-08-16] MEDS ORDERED: SODIUM CHLORIDE 0.65% NA SOLN 45 ML (OCEAN) PRN (22:30)
[2017-08-16] MEDS ORDERED: NITROGLYCERIN 0.4 MG SL PER TAB CHARGE SL PRN (22:30)
--- NOTE | 2017-08-16 22:43 | History and Physical ---
History & Physical Date & Time of Service: Aug 16, 2017 at 22:43 Chief Complaint: Pain Under Both Shoulders Primary Care Physician: Cooper Hart M.D. History of Present Illness Source: patient, family, hospital records Ms. Rahman is an 87 y/o female with Hx ESRD on HD, CAD, PAF on coumadin, chronic systolic and diastolic CHF, Moderate Aortic Stenosis, Mitral Regurg, ESRD on HD MWF, Anemia of Chronic Disease with H/O GI Bleed (September 2016), DMII , HTN, HL, gout and hypothyroidism, who presents to us with back pain/ tightness which is concerning for a cardiac cause. The patient has a history of a NSTEMI in March 2017 and according to both her and the daughter her KS's " tend to be associated with back pain". The back pain started as a vague ache prior to dialysis and while she was in dialyisis there was a worsening/ increasing intensity of the back tightness. It progressed throughout the day today and the patient did try to use her nitro which actually improved the pain. It is currently a 4/10 and is non radiating and in the back between her shoulders. It is not reproducible with palpation. she has chronically elevated troponin. Past Medical/Surgical History Medical Problems: (1) Ac Myocrd Infrct,Oth Inferior Wall,Subseq Epis Car Status: Resolved (2) Aortocoronary Bypass Status: Resolved (3) Chronic Kidney Disease, Stage Iii (Moderate) Status: Chronic (4) Coronary Atherosclerosis Of [place] Coronary Vessel Status: Chronic (5) Diab Qiana Wo Compl, Type Ii Or Unspec Type, Not Uncntrld Status: Chronic (6) Hypertension Nos Status: Chronic (7) Knee Joint Replacement Status Status: Chronic (8) Old Myocardial Infarct Status: Chronic (9) Percutaneous Translum Coron Angioplasty Status Status: Resolved (10) Pneumonia, Organism Nos Status: Resolved (11) Pure Hypercholesterolem Status: Chronic (12) Urin Tract Infection Nos Status: Resolved Family History Asthma Cancer SISTER (Breast cancer) Chronic kidney disease MOTHER Diabetes mellitus FATHER Heart disease FATHER Hypertension FATHER MOTHER Kidney disease Kidney stones Stroke Social History Smoking Status: Never Smoker Smokeless Tobacco Use: No Alcohol Use: none Drug Use: none Marital Status: Housing status: lives with family Occupational Status: retired Immunizations History of Influenza Vaccine: Yes Influenza Vaccine Date: Apr 17, 2012 History of Tetanus Vaccine?: Yes Tetanus Immunization Date: Dec 16, 2006 History of Pneumococcal: Yes Pneumococcal Date: Dec 17, 2007 History of Hepatitis B Vaccine: No Multi-Drug Resistant Organisms History of MDRO: No Allergies Coded Allergies: No Known Allergies (Unverified , 04/20/17) Home Medications Scheduled Allopurinol (Zyloprim), 50 MG PO QAM Amiodarone HCl (Amiodarone HCl), 200 MG PO Q2D Clopidogrel Bisulfate (Clopidogrel), 75 MG PO QPM Fluticasone Propionate (Fluticasone Propionate), 2 SPRAYS NA DAILY Guaifenesin Ext Rel (Mucinex Ext Rel), 600 MG PO Q12 Levothyroxine Sodium (Levothyroxine Sodium), 75 MCG PO QAM Multiple Vitamin (Renal Multivitamin Formul), 2 TABS PO QAM Pantoprazole (Protonix), 40 MG PO QAM Polyethylene Glycol 3350 (Miralax), 17 GM PO AMPM Probiotic Product (Probiotic), 1 CAP PO DAILY Rosuvastatin Calcium (Crestor), 10 MG PO HS Sennosides-Docusate Sodium (Stool Softener), 1 TAB PO BID Sevelamer Hydroch (Renagel), 800 MG PO TIDM Warfarin Sodium (Warfarin Sodium), 2 MG PO QPM Scheduled PRN Guaifenesin/Codeine (Robitussin-Ac Syrup), 5 ML PO Q4 PRN for Ipratropium-Albuterol (Duoneb), 1 TREATMENT INH Q4H PRN for SOB/Wheezing Oxycodone Ir (Roxicodone Ir), 1-2 TAB PO Q4H PRN for Severe Pain Saline ([place] Nasal [place]), 1 SPRAYS NA PRN PRN for DRYNESS Review of Systems Constitutional: No fever, No chills, No sweats Eyes: No worsening of vision ENT: No hearing loss Respiratory: No cough, No sputum, No wheezing, No shortness of breath, No dyspnea on exertion, No dyspnea at rest Cardiovascular: + problem reported (back tightness), No chest pain Abdomen: No pain, No nausea, No vomiting Musculoskeletal: No joint pain, No muscle pain Genitourinary - Female: No dysuria, No hematuria Neurologic: + balance problems Endocrine: No fatigue Hematologic / Lymphatic: + abnormal bleeding/bruising Integumentary: No rash Physical Exam Vital Signs Date Time Temp Pulse Resp B/P (MAP) Pulse Ox O2 Delivery O2 Flow Rate FiO2 08/16/17 20:56 76 08/16/17 20:56 76 16 124/55 95 Room Air 08/16/17 20:46 77 21 95 08/16/17 19:49 96 Room Air 08/16/17 19:49 96 Room Air 08/16/17 19:24 36.7 85 18 118/73 96 Room Air General Appearance: no apparent distress Head: normocephalic, atraumatic Eyes: normal inspection ENT: normal ENT inspection Neck: supple Respiratory/Chest: normal breath sounds, no respiratory distress, no accessory muscle use, + decreased breath sounds (bilat bases) Cardiovascular: regular rate, rhythm, normal peripheral pulses, + systolic murmur (3/6) Abdomen/GI: normal bowel sounds, non tender, soft Back: normal inspection Extremities/Musculoskelatal: no calf tenderness, normal range of motion, + pertinent finding (fistula right UE) Neurologic/Psych: alert, normal mood/affect, oriented x 3 Skin: normal color, warm/dry, no rash Lymphatic: no adenopathy Diagnostics Laboratory Results Results Past 24 Hours Test 08/16/17 20:00 08/16/17 21:24 Range/Units White Blood Count 4.40 4.8-10.8 K/uL Red Blood Count 3.52 4.2-5.4 M/uL Hemoglobin 11.3 12.0-16.0 g/dL Hematocrit 36.4 37-47 % Mean Corpuscular Volume 103.4 80-100 fL Mean Corpuscular Hemoglobin 32.1 25-34 pg Mean Corpuscular Hemoglobin Concent 31.0 32-36 g/dl Platelet Count 177 130-400 K/uL Mean Platelet Volume 10.6 7.4-10.4 fL Neutrophils (%) (Auto) 50.9 % Lymphocytes (%) (Auto) 32.7 % Monocytes (%) (Auto) 14.3 % Eosinophils (%) (Auto) 1.4 % Basophils (%) (Auto) 0.5 % Neutrophils # (Auto) 2.24 1.4-6.5 K/uL Lymphocytes # (Auto) 1.44 1.2-3.4 K/uL Monocytes # (Auto) 0.63 0.11-0.59 K/uL Eosinophils # (Auto) 0.06 0-0.5 K/uL Basophils # (Auto) 0.02 0-0.2 K/uL RDW Standard Deviation 66.3 36.4-46.3 fL RDW Coefficient of Variation 17.7 11.5-14.5 % Immature Granulocyte % (Auto) 0.2 % Immature Granulocyte # (Auto) 0.01 0.00-0.02 K/uL Sodium Level 136 136-145 mmol/L Potassium Level 4.3 3.5-5.1 mmol/L Chloride Level 97 98-107 mmol/L Carbon Dioxide Level 32 21-32 mmol/L Anion Gap 7.0 3-11 mmol/L Blood Urea Nitrogen 34 7-18 mg/dl Creatinine 3.79 0.60-1.20 mg/dl Est Creatinine Clear Calc Drug Dose 11.0 ml/min Estimated GFR () 11.8 Estimated GFR (Non- 10.2 BUN/Creatinine Ratio 8.9 10-20 Random Glucose 193 70-99 mg/dl Calcium Level 8.6 8.5-10.1 mg/dl Total Bilirubin 0.4 0.2-1 mg/dl Direct Bilirubin 0.1 0-0.2 mg/dl Aspartate Amino Transf (AST/SGOT) 17 15-37 U/L Alanine Aminotransferase (ALT/SGPT) 14 12-78 U/L Alkaline Phosphatase 115 45-117 U/L Total Creatine Kinase 17 26-192 U/L Creatine Kinase MB 1.0 0.5-3.6 ng/ml Creatine Kinase MB Ratio 5.9 0-3.0 Troponin I 0.053 0-0.045 ng/ml Total Protein 6.6 6.4-8.2 gm/dl Albumin 2.5 3.4-5.0 gm/dl Lipase 156 73-393 U/L Activated Partial Thromboplast Time 35.2 21.0-31.0 SECONDS Partial Thromboplastin Ratio 1.4 Phenytoin (Dilantin) Level 0.6 10-20 mcg/mL Diagnostic Radiology CHEST ONE VIEW PORTABLE HISTORY: Atypical CHEST PAIN COMPARISON: Chest 08/14/2017. FINDINGS: The heart remains enlarged. Post anatomy changes. Slight progression of the mild interstitial thickening suggestive of mild congestive change. Slight improvement in the left basilar consolidation and small left pleural effusion. No pneumothorax. IMPRESSION: 1. Slight progression of the mild interstitial thickening suggestive of developing pulmonary edema. 2. Left lower lobe consolidation and a small left pleural effusion has improved. EKG Normal sinus rhythm Left ventricular hypertrophy with QRS widening no significant changes QTc 502 Impression Assessment and Plan This is an 87 yo f with a h/o ESRD on HD, NSTEMI that is presenting to us with back pain concerning for atypical angina/ cardiac ischemia Cardiac assessment for atypical angina admission tele - trend troponin - consult [facility]- patient follows with Mary - EKG in am ESRD on HD - consult nephrology - continue Renagel 800 tid HTN/ hyperlipidemia/ CAD - Plavix 75 mg daily - Crestor 10 mg daily PAF/ H/O DVT - continue amio 200 mg q2days - subtherapeutic so will give an additional 2 mg dose and recheck in am Hypothyroidism - continue levothyroxine 75 mcg GERD - continue protonix 40 mg daily DVT prophylaxis warfarin Attending addendum: I have physically seen this patient, have supervised the medical residents activities, and agree with the H&P unless as otherwise noted. Assessment and Plan: CAD/hypertension/anginal equivalent/elevated troponin/paroxysmal atrial fibrillation-- The patient will be admitted to telemetry for serial cardiac enzymes, cardiac rhythm monitoring and a 2-D echocardiogram with Dopplers. Continue amiodarone, Plavix and warfarin Consult her photographic printer Dr. Hernandez End-stage renal disease on HD-- Continue Renagel Consult her dumper bailer operator Hyperlipidemia-- Continue Crestor 10 mg daily Hypothyroidism--continue levothyroxin 75 g by mouth daily GERD--continue pantoprazole 40 mg by mouth daily Gout--continue allopurinol 50 mg by mouth every morning Level of Care Telemetry Advanced Directives Existing Advance Directive: No Existing Living Will: No Existing Power of Battery Charger Conveyor Line: No Resuscitation Status FULL RESUSCITATION VTE Prophylaxis VTE Risk Assessment Done? Y/N: Yes Risk Level: Moderate Given or contraindicated: Warfarin (Coumadin) Social Service Consult None Apply Note Total Time: Critical Care 30 - 74 minutes Additional Copies To Cooper Hart M.D.
[2017-08-16 23:02] LABS: INR 1.6 (0.9-1.1); PROTHROMBIN TIME (PATIENT) 16.6 SECONDS (9.0-12.0)
[2017-08-16 23:25] VITALS: BP 114/49; PULSE 85; TEMP 36.5; O2SAT 95; Ht 162.6 cm; Wt 67.5 kg
[2017-08-16] MEDS ORDERED: ALLO100T PO (23:27)
[2017-08-17] VITALS (25 sets, daily range): BP systolic 97–141; BP diastolic 41–68; PULSE 65–77; TEMP 36.4–36.9; O2SAT 93–97
[2017-08-17] MEDS ORDERED: IV FLUIDS COMPLETED PRN (00:30)
[2017-08-17] MEDS ORDERED: WARFARIN SOD 2 MG TAB PO STA (00:47)
[2017-08-17] MEDS: NITROGLYCERIN OINT 2% 1GM PACKET EXT SCH ×5 (04:19→22:22)
[2017-08-17 05:53] LABS: BASO % 0.5 %; BASO ABS # 0.02 K/uL (0-0.2); COMPLETE YES; EOS % 2.5 %; HEMATOCRIT 34.9 % (37-47); IG% 0.2 %; LYMPH % 34.9 %; LYMPH ABS # 1.51 K/uL (1.2-3.4); MEAN CORPUSCULAR HEMOGLOBIN 31.3 pg (25-34); MEAN CORPUSCULAR HGB CONC 30.7 g/dl (32-36); MEAN PLATELET VOLUME 10.7 fL (7.4-10.4); MONO % 17.3 %; NEUT % 44.6 %; PLATELET COUNT 156 K/uL (130-400); RED BLOOD COUNT 3.42 M/uL (4.2-5.4); WHITE BLOOD COUNT 4.33 K/uL (4.8-10.8)
[2017-08-17] MEDS: LEVOTHYROXINE 75 MCG TAB PO SCH (05:56)
[2017-08-17 06:00] LABS: INR 1.6 (0.9-1.1); PROTHROMBIN TIME (PATIENT) 16.7 SECONDS (9.0-12.0)
[2017-08-17 06:21] LABS: BUN/CREATININE RATIO 9.2 (10-20); CALCIUM 8.6 mg/dl (8.5-10.1); CREATININE 4.12 mg/dl (0.60-1.20); POTASSIUM 4.3 mmol/L (3.5-5.1)
[2017-08-17] MEDS: SEVELAMER HYDROCH 800 MG TAB PO SCH ×3 (07:30→16:44)
[2017-08-17] MEDS: POLYETHYLENE (MIRALAX) 17 GM PACK PO SCH ×2 (07:37→20:41)
[2017-08-17] MEDS: PANTOprazole SOD 40 MG TAB PO SCH (07:37)
[2017-08-17] MEDS: DOCUSATE SODIUM/SENNA 50/8.6MG TAB PO SCH ×2 (07:37→20:41)
[2017-08-17] MEDS: GUAIFENESIN 600 MG TABCR PO SCH ×2 (07:38→20:41)
[2017-08-17] MEDS: ALLOPURINOL 100 MG TAB PO SCH (07:39)
[2017-08-17] MEDS: MULTIVITAMIN TAB PO SCH (07:39)
[2017-08-17] MEDS: FLUTICASONE PROPIONATE NA SPR 16 GM BTL SCH (07:39)
[2017-08-17] MEDS: ONDANSETRON INJ 2 MG/ML 2 ML VIAL IV PRN ×2 (07:45→20:41)
[2017-08-17] MEDS: LACTOBACILLUS ACIDOPHILUS (FLORANEX) TAB PO SCH (07:45)
[2017-08-17] MEDS ORDERED: AMIODARONE 200 MG TAB PO SCH (09:00)
--- NOTE | 2017-08-17 10:06 | Nephrology Consultation ---
Nephrology Consultation Date & Providers Date of Consultation: Aug 17, 2017. Primary Care Provider: Cooper Hart M.D. Referring Provider: Reason for Consultation ESRD requiring HD History of Present Illness Ms. Rahman is an 87 year old white female who is seen at the request of Dr. Sanches to provide inpatient HD and assist w/ medical management. Medical records in the hospital EMR were reviewed and are summarized as follows: Ms. Rahman has ESRD due to cardiorenal syndrome w/ recurrent CHF. She has been on HD since 05/19. She currently dialyzes MWF at [facility] (HD Rx: 4 hr 2K 2Ca F-160 EDW 68 kg Heparin 2000 bolus hourly). Her PMH is also significant for long-standing AODM, HTN, PVD w/ bilateral carotid arterial disease, ASCVD s/ p CABG x 4 1996 and OA. In 1996 patient suffered an episode of angina. Cardiac catheterization revealed RCA stenosis. Patient required angioplasty with stenting. Post procedure she developed a pseudoaneurysm with a large right groin hematoma which required emergency surgical repair. Due to her ASCVD Ms. Rahman had been on chronic ASA and Plavix therapy. She was hospitalized 09/19 with severe LGI bleeding requiring transfusion w/ 4 U PRBC. In 01/17 she was admitted w/ LLE DVT. Her hospitalization was complicated by infiltration of her L upper arm AVF. She developed a large hematoma and she has required several IJ THC to allow her AVF hematoma to resolve. Her AVF has healed and is now being used for HD. Ms. Rahman has a prosthetic R hip. The prosthesis has loosened and causes her pain. She has undergone Orthopedic evaluation. She is not an operative candidate due to her multiple medical problems. Ms. Rahman reports that she has had back discomfort over the last 2 days. She describes this as a pressure in between her shoulder blades. This is similar to her previous anginal episodes. Yesterday it was severe enough that she took 2 SL NTG and presented to the ED for evaluation. Since admission Ms. Rahman has been on topical NTP. Her symptoms have resolved. She is being monitored in the PCU. Troponin levels are mildly elevated c/w ESRD. Past Medical/Surgical History Medical: # ASCVD s/p CABG x 4 1996 # Atrial fibrillation # Moderate # Cardiac cath 2006 complicated by pseudoaneurysm of the right femoral artery requiring emergency surgical repair # AODM # HTN # PVD - carotid stenosis # h/o nephrolithiasis # Cholelithiasis # LGI bleed 09/19 Surgical: # R hip prosthesis # h/o R and L IJ THC insertion # AVF creation # R femoral artery pseudoaneurysm repair Allergies Coded Allergies: No Known Allergies (Unverified , 04/20/17) Inpatient Medications Current Inpatient Medications Medications (Trade) Dose Ordered Sig/Janeth Route Start Time Stop Time Status Last Admin Dose Admin Ondansetron HCl (Zofran Inj) 4 mg Q6H PRN IV 08/16/17 22:30 09/15/17 22:29 08/17/17 07:45 4 MG Nitroglycerin (Nitrostat Tab) 0.4 mg UD PRN SL 08/16/17 22:30 09/15/17 22:29 Nitroglycerin (Nitroglycerin 2% Oint) 1 inch Q6H EXT 08/17/17 04:00 09/16/17 03:59 08/17/17 04:19 1 INCH Morphine Sulfate (MoRPHine SULFATE INJ) 2 mg Q30M PRN IV 08/16/17 22:30 08/30/17 22:29 Allopurinol (Zyloprim Tab) 50 mg QAM PO 08/17/17 09:00 09/16/17 08:59 08/17/17 07:39 50 MG Amiodarone HCl (Cordarone Tab) 200 mg Q2D PO 08/17/17 09:00 09/16/17 08:59 08/17/17 07:37 200 MG Clopidogrel Bisulfate (plAVix TAB) 75 mg QPM PO 08/17/17 21:00 09/16/17 20:59 Fluticasone Propionate (Flonase Nasal [place]) 2 sprays DAILY NA 08/17/17 09:00 09/16/17 08:59 08/17/17 07:39 2 SPRAYS Guaifenesin (Mucinex Contr Rel Tab) 600 mg Q12 PO 08/17/17 09:00 09/16/17 08:59 Codeine Phosphate/ Guaifenesin (Robitussin-AC Sugar Free Syrup) 5 ml Q4 PRN PO 08/16/17 22:30 09/15/17 22:29 Albuterol/ Ipratropium (Duoneb) 3 ml Q4H PRN INH 08/16/17 22:30 09/15/17 22:29 Levothyroxine Sodium (Synthroid Tab) 75 mcg DAILYBB PO 08/17/17 06:00 09/16/17 06:59 Multivitamins (Multivitamin Tab) 2 tab QAM PO 08/17/17 09:00 09/16/17 08:59 08/17/17 07:39 2 TAB Oxycodone HCl (Roxicodone Immediate Rel Tab) 5 mg Q4H PRN PO 08/16/17 22:30 08/30/17 22:29 Pantoprazole Sodium (Protonix Tab) 40 mg QAM PO 08/17/17 09:00 09/16/17 08:59 08/17/17 07:37 40 MG Rosuvastatin Calcium (Crestor Tab) 10 mg HS PO 08/17/17 21:00 09/16/17 20:59 Sodium Chloride ([place] Nasal [place]) 1 sprays PRN PRN NA 08/16/17 22:30 09/15/17 22:29 Senna/Docusate Sodium (Senokot S Tab) 1 tab BID PO 08/17/17 09:00 09/16/17 08:59 08/17/17 07:37 1 TAB Sevelamer HCl (Renagel Tab) 800 mg TIDM PO 08/17/17 07:30 09/16/17 07:59 Warfarin Sodium (Coumadin Tab) 2 mg QPM PO 08/17/17 21:00 09/16/17 20:59 Polyethylene (Miralax Powder Packet) 17 gm BID PO 08/17/17 09:00 09/16/17 08:59 08/17/17 07:37 17 GM Lactobacillus Acidophilus (Floranex Tab) 1 tab DAILY PO 08/17/17 09:00 09/16/17 08:59 08/17/17 07:45 1 TAB Miscellaneous (Iv Fluids Completed) 1 ea PRN PRN N/A 08/17/17 00:30 08/17/18 00:29 Family History Asthma Cancer SISTER (Breast cancer) Chronic kidney disease MOTHER Diabetes mellitus FATHER Heart disease FATHER Hypertension FATHER MOTHER Kidney disease Kidney stones Stroke Negative for CKD / ESRD Social History Smoking Status: Never Smoker Smokeless Tobacco Use: No Alcohol Use: none Drug Use: none Marital Status: Housing Status: lives with family Occupation: retired . Retired. Never a smoker. Review of Systems Constitutional: No fever Respiratory: No cough, No sputum Cardiovascular: No chest pain Abdomen: No pain, No nausea, No vomiting A complete review of systems was performed. Pertinent positives are noted above. All other systems are negative. Physical Exam Date Time Temp Pulse Resp B/P (MAP) Pulse Ox O2 Delivery O2 Flow Rate FiO2 08/17/17 08:00 96 Room Air 08/17/17 07:22 36.7 76 19 141/61 (87) 96 Nasal Cannula 2.0 08/17/17 04:00 96 Nasal Cannula 2.0 08/17/17 03:38 36.7 77 17 127/66 (86) 96 Nasal Cannula 2.0 08/16/17 23:25 36.5 85 16 114/49 95 Room Air 08/16/17 22:50 79 16 122/56 96 Room Air 08/16/17 20:56 76 08/16/17 20:56 76 16 124/55 95 Room Air 08/16/17 20:46 77 21 95 08/16/17 19:49 96 Room Air 08/16/17 19:49 96 Room Air 08/16/17 19:24 36.7 85 18 118/73 96 Room Air General Appearance: no apparent distress Head: atraumatic (temporal muscle wasting) Eyes: PERRL, EOMI (+ corneal arcus) Neck: no adenopathy Respiratory/Chest: lungs clear, no respiratory distress Cardiovascular: regular rate, rhythm, + systolic murmur Abdomen/GI: normal bowel sounds, non tender, soft Back: no CVA tenderness Extremities/Musculoskelatal: no pedal edema, + pertinent finding (AVF + bruit) Neurologic/Psych: alert, oriented x 3 Laboratory Results Last 24 Hours Test 08/16/17 20:00 08/16/17 21:24 08/17/17 05:19 White Blood Count 4.40 K/uL 4.33 K/uL Red Blood Count 3.52 M/uL 3.42 M/uL Hemoglobin 11.3 g/dL 10.7 g/dL Hematocrit 36.4 % 34.9 % Mean Corpuscular Volume 103.4 fL 102.0 fL Mean Corpuscular Hemoglobin 32.1 pg 31.3 pg Mean Corpuscular Hemoglobin Concent 31.0 g/dl 30.7 g/dl Platelet Count 177 K/uL 156 K/uL Mean Platelet Volume 10.6 fL 10.7 fL Neutrophils (%) (Auto) 50.9 % 44.6 % Lymphocytes (%) (Auto) 32.7 % 34.9 % Monocytes (%) (Auto) 14.3 % 17.3 % Eosinophils (%) (Auto) 1.4 % 2.5 % Basophils (%) (Auto) 0.5 % 0.5 % Neutrophils # (Auto) 2.24 K/uL 1.93 K/uL Lymphocytes # (Auto) 1.44 K/uL 1.51 K/uL Monocytes # (Auto) 0.63 K/uL 0.75 K/uL Eosinophils # (Auto) 0.06 K/uL 0.11 K/uL Basophils # (Auto) 0.02 K/uL 0.02 K/uL RDW Standard Deviation 66.3 fL 64.5 fL RDW Coefficient of Variation 17.7 % 17.4 % Immature Granulocyte % (Auto) 0.2 % 0.2 % Immature Granulocyte # (Auto) 0.01 K/uL 0.01 K/uL Sodium Level 136 mmol/L 139 mmol/L Potassium Level 4.3 mmol/L 4.3 mmol/L Chloride Level 97 mmol/L 99 mmol/L Carbon Dioxide Level 32 mmol/L 35 mmol/L Anion Gap 7.0 mmol/L 5.0 mmol/L Blood Urea Nitrogen 34 mg/dl 38 mg/dl Creatinine 3.79 mg/dl 4.12 mg/dl Est Creatinine Clear Calc Drug Dose 11.0 ml/min 9.2 ml/min Estimated GFR () 11.8 10.7 Estimated GFR (Non- 10.2 9.2 BUN/Creatinine Ratio 8.9 9.2 Random Glucose 193 mg/dl 116 mg/dl Calcium Level 8.6 mg/dl 8.6 mg/dl Total Bilirubin 0.4 mg/dl Direct Bilirubin 0.1 mg/dl Aspartate Amino Transf (AST/SGOT) 17 U/L Alanine Aminotransferase (ALT/SGPT) 14 U/L Alkaline Phosphatase 115 U/L Total Creatine Kinase 17 U/L Creatine Kinase MB 1.0 ng/ml Creatine Kinase MB Ratio 5.9 Troponin I 0.053 ng/ml 0.068 ng/ml Total Protein 6.6 gm/dl Albumin 2.5 gm/dl Lipase 156 U/L Prothrombin Time 16.6 SECONDS 16.7 SECONDS Prothromb Time International Ratio 1.6 1.6 Activated Partial Thromboplast Time 35.2 SECONDS Partial Thromboplastin Ratio 1.4 Phenytoin (Dilantin) Level 0.6 mcg/mL Impression (1) Back pain (2) ESRD (end stage renal disease) on dialysis (3) Atrial fibrillation (4) Aortic stenosis (5) Loosening of prosthetic hip 87 year old female w/ ASCVD admitted with upper back discomfort which is her anginal equivalent. Symptoms have resolved with nitrate therapy. Nitrates were held in the past due to relative hypotension. Patient has and ESRD on MWF HD. Recommendations END STAGE RENAL DISEASE: -- HD today according to outpatient prescription. Orders entered into EMR and HD RN notified HYPERTENSION: -- Blood pressure is currently acceptable. -- Patient may tolerate low dose nitrate. Will await Cardiology recommendations ANEMIA: -- Will provide RANJAN w/ dialysis today CV: -- Currently angina free w/ topical NTP -- Patient may tolerate low dose nitrate. Will await Cardiology recommendations and results of echocardiogram
[2017-08-17] MEDS ORDERED: HEPARIN SOD (PORCINE) 1000 UNIT/ML 10 ML VIAL IV SCH (10:15)
[2017-08-17] MEDS ORDERED: EPOETIN ALFA 10,000 UNITS/ML VIAL IV. ONE (10:15)
[2017-08-17] MEDS: HEPARIN SOD (PORCINE) 1000 UNIT/ML 10 ML VIAL IV SCH ×2 (10:15→11:15)
[2017-08-17] MEDS ORDERED: EPOETIN ALFA INJ 7,000 UNITS in SYRINGE 0 ML IV. SCH (11:00)
--- NOTE | 2017-08-17 13:06 | CARDIOLOGY CONSULTATION ---
DATE OF CONSULTATION: 08/17/2017 PERTINENT HISTORY: Mrs. Rahman is an 87-year-old female well known to me from the inpatient and outpatient settings. The patient was admitted yesterday with back discomfort and fatigue. This consultation was ordered to assist in her cardiac management. The patient was in her usual state of poor health until 2 days prior to presentation when she began noticing a discomfort to her scapular region of her back. The patient's pain persisted for 2 days which prompted her evaluation in the Emergency Room yesterday. There were no other associated symptoms such as shortness of breath, nausea, vomiting, diaphoresis discomfort. The patient was concerned was her presentation for recent . The patient was hospitalized . She did have performed during the hospitalization noted low normal ejection fraction of 50-55% with the inferior wall motion abnormality. stenosis and moderate mitral regurgitation. There was mild left ventricular hypertrophy and evidence of diastolic dysfunction. the patient carries a history of chronic diastolic congestive heart failure. typically controlled by hemodialysis. coronary artery disease CABG x4 in 1996 PCI to the RCA that is in 2006. Occluded saphenous vein diagonal ramus History of ischemic cardiomyopathy - resolved. Chronic diastolic congestive heart failure hypertrophy. Diastolic dysfunction. Moderate aortic stenosis. Moderate mitral regurgitation. Hypertension. End-stage renal disease. Diabetes mellitus. COPD. History of DVT. GERD. Esophageal dysmotility and stricture. Hypothyroidism. History of retroperitoneal bleed. Hypoparathyroidism. MEDICATIONS: Crestor Senokot-S b.i.d. MiraLax 17 g b.i.d. 1 tablet daily. Renagel 800 mg t.i.d. Synthroid 0.075 mg daily. Nitro paste 1 inch q. 6 hours. ALLERGIES: None. SOCIAL HISTORY: The patient is lives alone. She does have 6 children Her granddaughter FAMILY HISTORY: Father disease. PHYSICAL EXAMINATION: GENERAL: This is a well-developed, well-nourished acute distress. VITAL SIGNS: Blood pressure is 100/50 with a regular pulse of 60. Respiratory rate is room air. HEENT: Negative. NECK: Supple with full carotid upstrokes. noted bilaterally. 90 degrees. Cardiovascular: Reveals a regular rhythm with distant heart sounds. A 2/6 crescendo-decrescendo systolic murmurs heard loudest at the base. No diastolic murmurs. No S3. LUNGS: Clear without rales, rhonchi or wheeze. ABDOMEN: Soft and nontender without bruits. EXTREMITIES: Reveal a left upper extremity AV fistula with thrill and bruit. Left lower extremity larger in diameter compared with the right (chronic finding). DATA: CBC notes hemoglobin 10.7, hematocrit 34.9, white count 4.3, platelet count 156,000. Electrolytes noted a sodium of 139, potassium 4.3, chloride 99, bicarb 35, BUN creatinine 4.12, glucose 116. Initial troponin was 0.053 followed by 0.068. CK is 17 with an MB fraction of 1.0. INR is 1.6. EKG notes normal sinus rhythm with interventricular conduction delay evidence of left ventricular hypertrophy and repolarization changes. Chest x-ray shows no acute disease. IMPRESSION: Mrs. Huang was admitted with constant back pain which has been present for over 48 hours. There are no acute changes on her EKG. Her troponin is mildly elevated, which has been a chronic finding. Suspects her discomfort is musculoskeletal in origin. I did not feel that this represent coronary ischemia. PLAN: 1. Continue usual outpatient cardiac medications. 2. The patient is stable for hospital discharge.
--- NOTE | 2017-08-17 13:15 | Discharge Instructions ---
Discharge Instructions Date of Service Aug 17, 2017. Admission Reason for Admission: Atypical Angina, History Of Mi Discharge Discharge Diagnosis / Problem: Back Pain Discharge Goals Goal(s): Decrease discomfort, Improve function Activity Recommendations Activity Limitations: resume your previous activity . Instructions / Follow-Up Instructions / Follow-Up You were admitted to [facility] due to back pain. Given your history of a prior heart attack this year with the same symptoms, we checked your troponin levels, which measure damage to your heart. Yours have been chronically elevated, and yours levels here were no higher than they are normally. As well, we checked an EKG which is an electrical tracing of your heart, and this was also normal. You were also seen by Dr. Hernandez, who felt your pain was not related to your heart, but rather musculoskeletal. As you were due for dialysis today, you also had dialysis done in the hospital, and were seen by a mold carrier, Dr. Quezada. We recommend you continue with your regular home medications, and follow up with your primary care provider. If you have worsening of your back pain, chest pain, or shortness of breath, please seek medical attention. Current Hospital Diet Patient's current hospital diet: AHA Diet (Heart Healthy), Low Sodium Diet (2gm Na), Renal Diet Discharge Diet Recommended Diet: AHA Diet (Heart Healthy), Low Sodium Diet (2gm Na) Pending Studies Studies pending at discharge: no Laboratory Results Hemoglobin A1c Test 07/19/17 06:35 Range/Units Estimated Average Glucose 114 mg/dl Hemoglobin A1c 5.6 4.5-5.6 % Medical Emergencies . Who to Call and When: Medical Emergencies: If at any time you feel your situation is an emergency, please call 911 immediately. . Non-Emergent Contact Non-Emergency issues call your: Primary Care Provider . . "Provider Documentation" section prepared by Art Young. . VTE Core Measure Inpt VTE Proph given/why not?: Warfarin (Coumadin)
--- NOTE | 2017-08-17 13:17 | Discharge Summary ---
Discharge Summary Date of Service Aug 17, 2017. Discharge Summary Admission Date: Aug 16, 2017 at 22:41 Discharge Date: Aug 17, 2017 Discharge Disposition: Home Principal Diagnosis: Back Pain Problems/Secondary Diagnoses: 1) ESRD on hemodialysis 2) CAD s/p NSTEMI March 2017 3) PAF on coumadin 4) systolic and diastolic CHF 5) moderate 6) Mitral regurgitation 7) Anemia with h/o GI bleed Sep 2016 8) DM2 9) HTN 10) Hyperlipidemia 11) Gout 12) Hypothyroidism Immunizations: Have You Had Influenza Vaccine: Yes Influenza Vaccine Date: Apr 17, 2012 History of Tetanus Vaccine?: Yes Tetanus Immunization Date: Dec 16, 2006 History of Pneumococcal: Yes Pneumococcal Date: Dec 17, 2007 History of Hepatitis B Vaccine: No Consultations: Nephrology - Dr. Quezada Cardiology - Dr. Hernandez Medication Reconciliation Continued Medications: Allopurinol (Zyloprim) 100 Mg Tab 50 MG PO QAM Amiodarone HCl (Amiodarone HCl) 200 Mg Tab 200 MG PO Q2D Clopidogrel Bisulfate (Clopidogrel) 75 Mg Tab 75 MG PO QPM Fluticasone Propionate (Fluticasone Propionate) 50 Mcg/Act Spr 2 SPRAYS NA DAILY for 30 Days, #1 EA Guaifenesin Ext Rel (Mucinex Ext Rel) 600 Mg Tabcr 600 MG PO Q12 for 14 Days, #28 TAB OTC Guaifenesin/Codeine (Robitussin-Ac Syrup) Syrp 5 ML PO Q4 PRN for for 6 Days, #120 ML Ipratropium-Albuterol (Duoneb) 3 Ml Nebu 1 TREATMENT INH Q4H PRN for SOB/Wheezing Levothyroxine Sodium (Levothyroxine Sodium) 75 Mcg Tab 75 MCG PO QAM INCREASE TO 150 MCG ON 08/17/2017. Multiple Vitamin (Renal Multivitamin Formul) 1 Tab Tab 2 TABS PO QAM Oxycodone Ir (Roxicodone Ir) 5 Mg Tab 1-2 TAB PO Q4H PRN for Severe Pain, #12 TAB Pantoprazole (Protonix) 40 Mg Tab 40 MG PO QAM Polyethylene Glycol 3350 (Miralax) 1 Pow Pow 17 GM PO AMPM Probiotic Product (Probiotic) 1 Cap Cap 1 CAP PO DAILY Rosuvastatin Calcium (Crestor) 10 Mg Tab 10 MG PO HS, TAB Saline ([place] Nasal [place]) 0.65 % Spr 1 SPRAYS NA PRN PRN for DRYNESS for 30 Days Sennosides-Docusate Sodium (Stool Softener) 1 Tab Tab 1 TAB PO BID Sevelamer Hydroch (Renagel) 800 Mg Tab 800 MG PO TIDM, TAB Warfarin Sodium (Warfarin Sodium) 2 Mg Tab 2 MG PO QPM Discharge Exam Ms. Rahman reports she feels well today. She states the pain in her back between her shoulders has resolved. She denies chest pain, cough, n/v, or abdominal pain. She states she felt slightly short of breath yesterday and so she kept her 2L of O2 on throughout the day as opposed to just at nighttime ( her usual regimen). Review of Systems: Constitutional: No fever, No chills Respiratory: + shortness of breath, No cough, No sputum, No wheezing Cardiovascular: + orthopnea, + PND, No chest pain Abdomen: No pain, No nausea, No vomiting Physical Exam: General Appearance: WD/WN, no apparent distress Respiratory/Chest: chest non-tender, normal breath sounds, no respiratory distress, no accessory muscle use, + decreased breath sounds Cardiovascular: regular rate, rhythm, no edema, no gallop, no JVD, normal peripheral pulses, + systolic murmur Abdomen / GI: normal bowel sounds, non tender, soft, no organomegaly, no pulsatile mass Extremities: normal inspection, no calf tenderness, normal capillary refill , no pedal edema Hospital Course Ms. Rahman is an 87 year old female with a history of ESRD on HD, CAD s/p NSTEMI in March 2017, hypertension, hyperlipidemia, DM2, moderate who presented to [facility] with back pain. Below are the medical problems addressed during her stay: Cardiac assessment - troponin elevated at 0.05, 0.06, which is typical for her as her troponin level is chronically elevated - EKG normal - back pain resolved, was only present on palpation - seen by Dr. Hernandez ESRD on HD - seen by Dr. Quezada - underwent hemodialysis in keeping with her schedule PAF/ H/O DVT - INR 1.6 on arrival, she was given an additional 2mg dose of warfarin Anemia - RANJAN given with dialysis - Hemoglobin 10.7 Total Time Spent: Less than 30 minutes This includes examination of the patient, discharge planning, medication reconciliation, and communication with other providers. Discharge Instructions Please refer to the electronic Patient Visit Report (Discharge Instructions) for additional information. Additional Copies To Cooper Hart M.D. Resident Tracking Resident Involvement: Resident Care Provided Care Provided: Adult [facility] Medicine
[2017-08-17 17:13] LABS: URINE APPEARANCE TURBID (CLEAR); URINE COLOR DK YELLOW; URINE EPITHELIAL CELL AUTO >30 /lpf (0-5); URINE NITRITE NEG (NEG); URINE PH 5.5 (4.5-7.5); UROBILINOGEN NEG (NEG); ZZUR CULT IF INDIC CLEAN CATCH YES
[2017-08-17 17:44] LABS: MANUAL MICROSCOPIC REQUIRED? NO; REVIEW REQ? YES
[2017-08-17 17:45] LABS: URINE BILIRUBIN NEG (NEG)
--- NOTE | 2017-08-17 18:14 | Family Medicine Progress Note ---
Progress Note Date of Service Aug 17, 2017. Subjective Pt evaluation today including: conversation w/ patient, physical exam, chart review, lab review, review of inpatient medication list Pain: No pain reported PO Intake: Tolerating PO intake Voiding: no voiding problems Ms. Rahman reports she feels well today. She states the pain in her back between her shoulders has resolved. She denies chest pain, cough, n/v, or abdominal pain. She states she felt slightly short of breath yesterday and so she kept her 2L of O2 on throughout the day as opposed to just at nighttime ( her usual regimen). Constitutional: No fever, No chills Respiratory: + shortness of breath, No cough, No sputum, No wheezing Cardiovascular: + problem reported, No chest pain Abdomen: No pain, No nausea, No vomiting All Other Systems: Reviewed and Negative Medications Current Inpatient Medications Medications (Trade) Dose Ordered Sig/Janeth Route Start Time Stop Time Status Last Admin Dose Admin Ondansetron HCl (Zofran Inj) 4 mg Q6H PRN IV 08/16/17 22:30 09/15/17 22:29 08/17/17 07:45 4 MG Nitroglycerin (Nitrostat Tab) 0.4 mg UD PRN SL 08/16/17 22:30 09/15/17 22:29 Nitroglycerin (Nitroglycerin 2% Oint) 1 inch Q6H EXT 08/17/17 04:00 09/16/17 03:59 08/17/17 04:19 1 INCH Morphine Sulfate (MoRPHine SULFATE INJ) 2 mg Q30M PRN IV 08/16/17 22:30 08/30/17 22:29 Allopurinol (Zyloprim Tab) 50 mg QAM PO 08/17/17 09:00 09/16/17 08:59 08/17/17 07:39 50 MG Amiodarone HCl (Cordarone Tab) 200 mg Q2D PO 08/17/17 09:00 09/16/17 08:59 08/17/17 07:37 200 MG Clopidogrel Bisulfate (plAVix TAB) 75 mg QPM PO 08/17/17 21:00 09/16/17 20:59 Fluticasone Propionate (Flonase Nasal [place]) 2 sprays DAILY NA 08/17/17 09:00 09/16/17 08:59 08/17/17 07:39 2 SPRAYS Guaifenesin (Mucinex Contr Rel Tab) 600 mg Q12 PO 08/17/17 09:00 09/16/17 08:59 Codeine Phosphate/ Guaifenesin (Robitussin-AC Sugar Free Syrup) 5 ml Q4 PRN PO 08/16/17 22:30 09/15/17 22:29 Albuterol/ Ipratropium (Duoneb) 3 ml Q4H PRN INH 08/16/17 22:30 09/15/17 22:29 Levothyroxine Sodium (Synthroid Tab) 75 mcg DAILYBB PO 08/17/17 06:00 09/16/17 06:59 Multivitamins (Multivitamin Tab) 2 tab QAM PO 08/17/17 09:00 09/16/17 08:59 08/17/17 07:39 2 TAB Oxycodone HCl (Roxicodone Immediate Rel Tab) 5 mg Q4H PRN PO 08/16/17 22:30 08/30/17 22:29 Pantoprazole Sodium (Protonix Tab) 40 mg QAM PO 08/17/17 09:00 09/16/17 08:59 08/17/17 07:37 40 MG Rosuvastatin Calcium (Crestor Tab) 10 mg HS PO 08/17/17 21:00 09/16/17 20:59 Sodium Chloride ([place] Nasal [place]) 1 sprays PRN PRN NA 08/16/17 22:30 09/15/17 22:29 Senna/Docusate Sodium (Senokot S Tab) 1 tab BID PO 08/17/17 09:00 09/16/17 08:59 08/17/17 07:37 1 TAB Sevelamer HCl (Renagel Tab) 800 mg TIDM PO 08/17/17 07:30 09/16/17 07:59 08/17/17 16:44 800 MG Warfarin Sodium (Coumadin Tab) 2 mg QPM PO 08/17/17 21:00 09/16/17 20:59 Polyethylene (Miralax Powder Packet) 17 gm BID PO 08/17/17 09:00 09/16/17 08:59 08/17/17 07:37 17 GM Lactobacillus Acidophilus (Floranex Tab) 1 tab DAILY PO 08/17/17 09:00 09/16/17 08:59 08/17/17 07:45 1 TAB Miscellaneous (Iv Fluids Completed) 1 ea PRN PRN N/A 08/17/17 00:30 08/17/18 00:29 Epoetin Joshua 7000 units/Syringe 0.35 ml @ 1 mls/min TODAY@1100 IV. 08/17/17 11:00 08/17/17 18:00 Objective Vital Signs Date Time Temp Pulse Resp B/P (MAP) Pulse Ox O2 Delivery O2 Flow Rate FiO2 08/17/17 17:45 67 105/47 08/17/17 17:30 69 104/49 08/17/17 17:15 72 98/47 08/17/17 17:00 75 102/53 08/17/17 16:45 68 101/45 08/17/17 16:30 75 107/51 08/17/17 16:15 73 101/49 08/17/17 16:00 96 Room Air 08/17/17 16:00 68 98/50 08/17/17 15:45 66 97/53 08/17/17 15:30 68 114/57 08/17/17 15:15 66 108/46 08/17/17 15:15 36.5 66 20 108/46 (66) 95 Room Air 08/17/17 15:00 36.4 68 115/57 (76) 08/17/17 15:00 65 108/41 08/17/17 12:00 96 Room Air 08/17/17 10:48 36.9 69 20 98/53 (68) 93 Room Air 08/17/17 08:00 96 Room Air 08/17/17 07:22 36.7 76 19 141/61 (87) 96 Nasal Cannula 2.0 08/17/17 04:00 96 Nasal Cannula 2.0 08/17/17 03:38 36.7 77 17 127/66 (86) 96 Nasal Cannula 2.0 08/16/17 23:25 36.5 85 16 114/49 95 Room Air 08/16/17 22:50 79 16 122/56 96 Room Air 08/16/17 20:56 76 08/16/17 20:56 76 16 124/55 95 Room Air 08/16/17 20:46 77 21 95 08/16/17 19:49 96 Room Air 08/16/17 19:49 96 Room Air 08/16/17 19:24 36.7 85 18 118/73 96 Room Air Physical Exam General Appearance: WD/WN, no apparent distress Respiratory/Chest: chest non-tender, normal breath sounds, no respiratory distress, no accessory muscle use, + decreased breath sounds Cardiovascular: regular rate, rhythm, no edema, no gallop, no JVD, no murmur Laboratory Results Last 24 Hours Test 08/16/17 20:00 08/16/17 21:24 08/17/17 05:19 08/17/17 16:30 White Blood Count 4.40 K/uL 4.33 K/uL Red Blood Count 3.52 M/uL 3.42 M/uL Hemoglobin 11.3 g/dL 10.7 g/dL Hematocrit 36.4 % 34.9 % Mean Corpuscular Volume 103.4 fL 102.0 fL Mean Corpuscular Hemoglobin 32.1 pg 31.3 pg Mean Corpuscular Hemoglobin Concent 31.0 g/dl 30.7 g/dl Platelet Count 177 K/uL 156 K/uL Mean Platelet Volume 10.6 fL 10.7 fL Neutrophils (%) (Auto) 50.9 % 44.6 % Lymphocytes (%) (Auto) 32.7 % 34.9 % Monocytes (%) (Auto) 14.3 % 17.3 % Eosinophils (%) (Auto) 1.4 % 2.5 % Basophils (%) (Auto) 0.5 % 0.5 % Neutrophils # (Auto) 2.24 K/uL 1.93 K/uL Lymphocytes # (Auto) 1.44 K/uL 1.51 K/uL Monocytes # (Auto) 0.63 K/uL 0.75 K/uL Eosinophils # (Auto) 0.06 K/uL 0.11 K/uL Basophils # (Auto) 0.02 K/uL 0.02 K/uL RDW Standard Deviation 66.3 fL 64.5 fL RDW Coefficient of Variation 17.7 % 17.4 % Immature Granulocyte % (Auto) 0.2 % 0.2 % Immature Granulocyte # (Auto) 0.01 K/uL 0.01 K/uL Sodium Level 136 mmol/L 139 mmol/L Potassium Level 4.3 mmol/L 4.3 mmol/L Chloride Level 97 mmol/L 99 mmol/L Carbon Dioxide Level 32 mmol/L 35 mmol/L Anion Gap 7.0 mmol/L 5.0 mmol/L Blood Urea Nitrogen 34 mg/dl 38 mg/dl Creatinine 3.79 mg/dl 4.12 mg/dl Est Creatinine Clear Calc Drug Dose 11.0 ml/min 9.2 ml/min Estimated GFR () 11.8 10.7 Estimated GFR (Non- 10.2 9.2 BUN/Creatinine Ratio 8.9 9.2 Random Glucose 193 mg/dl 116 mg/dl Calcium Level 8.6 mg/dl 8.6 mg/dl Total Bilirubin 0.4 mg/dl Direct Bilirubin 0.1 mg/dl Aspartate Amino Transf (AST/SGOT) 17 U/L Alanine Aminotransferase (ALT/SGPT) 14 U/L Alkaline Phosphatase 115 U/L Total Creatine Kinase 17 U/L Creatine Kinase MB 1.0 ng/ml Creatine Kinase MB Ratio 5.9 Troponin I 0.053 ng/ml 0.068 ng/ml Total Protein 6.6 gm/dl Albumin 2.5 gm/dl Lipase 156 U/L Prothrombin Time 16.6 SECONDS 16.7 SECONDS Prothromb Time International Ratio 1.6 1.6 Activated Partial Thromboplast Time 35.2 SECONDS Partial Thromboplastin Ratio 1.4 Phenytoin (Dilantin) Level 0.6 mcg/mL Urine Color DK YELLOW Urine Appearance TURBID Urine pH 5.5 Urine Specific [place] 1.020 Urine Protein 2+ Urine Glucose (UA) NEG Urine Ketones TRACE Urine Occult Blood 2+ Urine Nitrite NEG Urine Bilirubin NEG Urine Urobilinogen NEG Urine Leukocyte Esterase LARGE Urine WBC (Auto) >30 /hpf Urine RBC (Auto) 0-4 /hpf Urine Hyaline Casts (Auto) /lpf Urine Epithelial Cells (Auto) >30 /lpf Urine Pathogenic Casts /lpf Urine Yeast (Auto) BUDDING Assessment and Plan Ms. Rahman is an 87 year old female with a h/o ESRD on HD, prior NSTEMI in March 2017, and PAF on coumadin who presented with back pain concerning for atypical angina/cardiac ischemia Back pain, concern of ACS due to history - troponin slightly elevated at 0.05 and 0.06 - she does have a history of chronically elevated troponins at this level - EKG normal - Thank you to Dr. Hernandez for consult - he feels back pain is non-cardiac and likely MSK - UA positive for infection - likely cause of back pain. Urine cx sent - start Rocephin IV - her previous urine cultures were resistant to fluoroquinolones, ampicillin and bactrim ESRD on HD - nephrology on board, thank you to Dr. Quezada - HD done today - continue Renagel 800 tid - Creatinine 4.12, baseline seems to be 3.2-3.6 HTN/ hyperlipidemia/ CAD - continue Plavix 75 mg daily - continue Crestor 10 mg daily PAF/ H/O DVT - continue amiodarone 200 mg q2days - continue warfarin - INR 1.6 Hypothyroidism - continue levothyroxine 75 mcg GERD - continue protonix 40 mg daily Anemia - Hgb 10.7 - RANJAN provided with dialysis today DVT prophylaxis: warfarin Code Status: full Disposition: likely d/c tomorrow Resident Tracking Resident Involvement: Resident Care Provided Care Provided: Adult Hospital Medicine Reviewed: Pt Seen/Exam by Me History pain in left flank area. Constitutional: denies: fever Respiratory: negative: short of breath Cardiovascular: denies chest pain General Appearance: no apparent distress Respiratory: lungs clear, no respiratory distress Cardiovascular: regular rate, rhythm Neurologic/Psychiatric: alert, oriented x 3 Skin Characteristics: warm/dry Assessment/Plan Resident Physician Supervision Note: I independently interviewed and examined the patient and verified the archuleta history and physical, reviewed labs and image studies, discussed the case with the resident Dr. Young and agree with the findings and care plan.
[2017-08-17] MEDS ORDERED: CIPROFLOXACIN / D5W 200 MG in PREMIXED IN D5W 100 ML IV SCH (20:00)
[2017-08-17] MEDS ORDERED: CEFTRIAXONE SOD INJ 1000 MG in DEXTROSE 5% 50ML IV SCH (20:00)
[2017-08-17] MEDS ORDERED: ROSUVASTATIN CALCIUM 10 MG TAB PO SCH (21:00)
[2017-08-17] MEDS ORDERED: WARFARIN SOD 2 MG TAB PO SCH (21:00)
[2017-08-17] MEDS ORDERED: CLOPIDOGREL BISULFATE 75 MG TAB PO SCH (21:00)
[2017-08-18 04:03] VITALS: BP 125/84; PULSE 57; TEMP 36.6; O2SAT 89
[2017-08-18] MEDS: LEVOTHYROXINE 75 MCG TAB PO SCH (06:10)
[2017-08-18 07:40] VITALS: BP 136/65; PULSE 72; TEMP 36.5; O2SAT 95
[2017-08-18 07:51] LABS: HEMATOCRIT 35.4 % (37-47); MEAN CELL VOLUME 102.3 fL (80-100); MEAN CORPUSCULAR HEMOGLOBIN 31.5 pg (25-34); MEAN CORPUSCULAR HGB CONC 30.8 g/dl (32-36); MEAN PLATELET VOLUME 10.6 fL (7.4-10.4); PLATELET COUNT 173 K/uL (130-400); RED BLOOD COUNT 3.46 M/uL (4.2-5.4); WHITE BLOOD COUNT 4.02 K/uL (4.8-10.8)
[2017-08-18 07:57] LABS: INR 1.8 (0.9-1.1); PROTHROMBIN TIME (PATIENT) 18.4 SECONDS (9.0-12.0)
[2017-08-18] MEDS: POLYETHYLENE (MIRALAX) 17 GM PACK PO SCH (08:04)
[2017-08-18] MEDS: PANTOprazole SOD 40 MG TAB PO SCH (08:04)
[2017-08-18] MEDS: ALLOPURINOL 100 MG TAB PO SCH (08:04)
[2017-08-18] MEDS: MULTIVITAMIN TAB PO SCH (08:05)
[2017-08-18] MEDS: GUAIFENESIN 600 MG TABCR PO SCH (08:05)
[2017-08-18] MEDS: DOCUSATE SODIUM/SENNA 50/8.6MG TAB PO SCH (08:05)
[2017-08-18] MEDS: SEVELAMER HYDROCH 800 MG TAB PO SCH (08:05)
[2017-08-18] MEDS: LACTOBACILLUS ACIDOPHILUS (FLORANEX) TAB PO SCH (08:05)
[2017-08-18] MEDS: FLUTICASONE PROPIONATE NA SPR 16 GM BTL SCH (08:06)
[2017-08-18 08:29] LABS: BUN/CREATININE RATIO 6.5 (10-20); CALCIUM 8.3 mg/dl (8.5-10.1); CREATININE 2.77 mg/dl (0.60-1.20)
--- NOTE | 2017-08-18 09:59 | Nephrology Progress Note ---
Nephrology Progress Note Date of Service Aug 18, 2017. Chief Complaint ESRD requiring HD Subjective Ms. Rahman was seen & examined in the PCU this morning. Her back discomfort has resolved. She reports that there were no complications overnight. She hopes to return home today. Review of Systems Constitutional: No fever Cardiovascular: No chest pain Abdomen: No pain, No nausea, No vomiting Extremities: No leg edema A complete review of systems was performed. Pertinent positives are noted above. All other systems are negative. Vital Signs Last 8 Hrs Date Time Temp Pulse Resp B/P (MAP) Pulse Ox O2 Delivery O2 Flow Rate FiO2 08/18/17 07:40 36.5 72 18 136/65 (88) 95 Room Air 08/18/17 04:11 Room Air 08/18/17 04:03 36.6 57 19 125/84 (98) 89 Room Air Last Recorded Weight Weight (Kilograms): 67.500 Physical Exam General Appearance: no apparent distress Head: normocephalic, atraumatic Eyes: PERRL, EOMI Neck: no adenopathy Respiratory/Chest: lungs clear, no respiratory distress Cardiovascular: + irregularly irregular Abdomen/GI: normal bowel sounds, non tender, soft Extremities/Musculoskelatal: no pedal edema, + pertinent finding (AVF + bruit) Family History Asthma Cancer SISTER (Breast cancer) Chronic kidney disease MOTHER Diabetes mellitus FATHER Heart disease FATHER Hypertension FATHER MOTHER Kidney disease Kidney stones Stroke Negative for CKD / ESRD Social History Smoking Status: Never smoker Smokeless Tobacco Use: No Alcohol Use: none Drug Use: none Marital Status: Housing Status: lives with family Occupation: retired . Retired. Never a smoker. Laboratory Results Past 24 Hours 08/18/17 07:17 08/18/17 07:17 Test 08/17/17 16:30 08/18/17 07:17 Urine Color DK YELLOW Urine Appearance TURBID (CLEAR) Urine pH 5.5 (4.5-7.5) Urine Specific [place] 1.020 (1.000-1.030) Urine Protein 2+ (NEG) Urine Glucose (UA) NEG (NEG) Urine Ketones TRACE (NEG) Urine Occult Blood 2+ (NEG) Urine Nitrite NEG (NEG) Urine Bilirubin NEG (NEG) Urine Urobilinogen NEG (NEG) Urine Leukocyte Esterase LARGE (NEG) Urine WBC (Auto) >30 /hpf (0-5) Urine RBC (Auto) 0-4 /hpf (0-4) Urine Hyaline Casts (Auto) /lpf (0-5) Urine Epithelial Cells (Auto) >30 /lpf (0-5) Urine Bacteria (Auto) 2+ (NEG) Urine Pathogenic Casts /lpf (0) Urine Yeast (Auto) BUDDING (NONE PRSENT) Red Blood Count 3.46 M/uL (4.2-5.4) Mean Corpuscular Volume 102.3 fL (80-100) Mean Corpuscular Hemoglobin 31.5 pg (25-34) Mean Corpuscular Hemoglobin Concent 30.8 g/dl (32-36) RDW Standard Deviation 64.9 fL (36.4-46.3) RDW Coefficient of Variation 17.6 % (11.5-14.5) Mean Platelet Volume 10.6 fL (7.4-10.4) Prothrombin Time 18.4 SECONDS (9.0-12.0) Prothromb Time International Ratio 1.8 (0.9-1.1) Anion Gap 6.0 mmol/L (3-11) Est Creatinine Clear Calc Drug Dose 13.8 ml/min Estimated GFR () 17.2 Estimated GFR (Non- 14.9 BUN/Creatinine Ratio 6.5 (10-20) Calcium Level 8.3 mg/dl (8.5-10.1) Allergies Coded Allergies: No Known Allergies (Unverified , 04/20/17) Medications Current Inpatient Medications Medications (Trade) Dose Ordered Sig/Janeth Route Start Time Stop Time Status Last Admin Dose Admin Ondansetron HCl (Zofran Inj) 4 mg Q6H PRN IV 08/16/17 22:30 09/15/17 22:29 08/17/17 20:41 4 MG Nitroglycerin (Nitrostat Tab) 0.4 mg UD PRN SL 08/16/17 22:30 09/15/17 22:29 Nitroglycerin (Nitroglycerin 2% Oint) 1 inch Q6H EXT 08/17/17 04:00 09/16/17 03:59 08/17/17 04:19 1 INCH Morphine Sulfate (MoRPHine SULFATE INJ) 2 mg Q30M PRN IV 08/16/17 22:30 08/30/17 22:29 Allopurinol (Zyloprim Tab) 50 mg QAM PO 08/17/17 09:00 09/16/17 08:59 08/18/17 08:04 50 MG Amiodarone HCl (Cordarone Tab) 200 mg Q2D PO 08/17/17 09:00 09/16/17 08:59 08/17/17 07:37 200 MG Clopidogrel Bisulfate (plAVix TAB) 75 mg QPM PO 08/17/17 21:00 09/16/17 20:59 Fluticasone Propionate (Flonase Nasal [place]) 2 sprays DAILY NA 08/17/17 09:00 09/16/17 08:59 08/18/17 08:06 2 SPRAYS Guaifenesin (Mucinex Contr Rel Tab) 600 mg Q12 PO 08/17/17 09:00 09/16/17 08:59 08/18/17 08:05 600 MG Codeine Phosphate/ Guaifenesin (Robitussin-AC Sugar Free Syrup) 5 ml Q4 PRN PO 08/16/17 22:30 09/15/17 22:29 Albuterol/ Ipratropium (Duoneb) 3 ml Q4H PRN INH 08/16/17 22:30 09/15/17 22:29 Levothyroxine Sodium (Synthroid Tab) 75 mcg DAILYBB PO 08/17/17 06:00 09/16/17 06:59 08/18/17 06:10 75 MCG Multivitamins (Multivitamin Tab) 2 tab QAM PO 08/17/17 09:00 09/16/17 08:59 08/18/17 08:05 2 TAB Oxycodone HCl (Roxicodone Immediate Rel Tab) 5 mg Q4H PRN PO 08/16/17 22:30 08/30/17 22:29 Pantoprazole Sodium (Protonix Tab) 40 mg QAM PO 08/17/17 09:00 09/16/17 08:59 08/18/17 08:04 40 MG Rosuvastatin Calcium (Crestor Tab) 10 mg HS PO 08/17/17 21:00 09/16/17 20:59 08/17/17 20:41 10 MG Sodium Chloride ([place] Nasal [place]) 1 sprays PRN PRN NA 08/16/17 22:30 09/15/17 22:29 Senna/Docusate Sodium (Senokot S Tab) 1 tab BID PO 08/17/17 09:00 09/16/17 08:59 08/18/17 08:05 1 TAB Sevelamer HCl (Renagel Tab) 800 mg TIDM PO 08/17/17 07:30 09/16/17 07:59 08/18/17 08:05 800 MG Warfarin Sodium (Coumadin Tab) 2 mg QPM PO 08/17/17 21:00 09/16/17 20:59 08/17/17 20:41 2 MG Polyethylene (Miralax Powder Packet) 17 gm BID PO 08/17/17 09:00 09/16/17 08:59 08/18/17 08:04 17 GM Lactobacillus Acidophilus (Floranex Tab) 1 tab DAILY PO 08/17/17 09:00 09/16/17 08:59 08/18/17 08:05 1 TAB Miscellaneous (Iv Fluids Completed) 1 ea PRN PRN N/A 08/17/17 00:30 08/17/18 00:29 Ceftriaxone Sodium 1000 mg/ Dextrose 60 ml @ 120 mls/hr Q24H IV 08/17/17 20:00 08/22/17 19:59 08/17/17 20:41 120 MLS/HR Impression (1) Back pain (2) ESRD (end stage renal disease) on dialysis (3) Atrial fibrillation (4) Aortic stenosis (5) Loosening of prosthetic hip 87 year old female w/ ASCVD admitted with upper back discomfort which is her anginal equivalent. Symptoms have resolved with nitrate therapy. Nitrates were held in the past due to relative hypotension. Patient has and ESRD on MWF HD. Recommendations END STAGE RENAL DISEASE: -- Volume status & electrolyte balance are acceptable. No acute indication for HD today -- If discharge is anticipated patient will need to resume outpatient MWF HD at [facility] [phone] HYPERTENSION: -- Blood pressure is currently acceptable. -- Patient may tolerate low dose nitrate if needed. She does have PRN SL NTG ANEMIA: -- RANJAN has been provided w/ inpatient HD treatments CV: -- Back pain / angina resolved
[2017-08-18] MEDS ORDERED: CIPR-255 PO (10:18)
[2017-08-18 11:05] VITALS: BP 149/63; PULSE 64; TEMP 36.6; O2SAT 98
[2017-08-18] MEDS ORDERED: SULF800T23 PO (11:11)
--- NOTE | 2017-08-18 11:49 | Discharge Summary ---
Discharge Summary Date of Service Aug 18, 2017. Discharge Summary Admission Date: Aug 16, 2017 at 22:41 Discharge Date: Aug 18, 2017 Discharge Disposition: Home Principal Diagnosis: chest pain with elevated troponins; dirty UA awaiting urine culture Problems/Secondary Diagnoses: 1) ESRD on hemodialysis 2) CAD s/p NSTEMI March 2017 3) PAF on coumadin 4) systolic and diastolic CHF 5) moderate 6) Mitral regurgitation 7) Anemia with h/o GI bleed Sep 2016 8) DM2 9) HTN 10) Hyperlipidemia 11) Gout 12) Hypothyroidism Immunizations: Have You Had Influenza Vaccine: Yes Influenza Vaccine Date: Apr 17, 2012 History of Tetanus Vaccine?: Yes Tetanus Immunization Date: Dec 16, 2006 History of Pneumococcal: Yes Pneumococcal Date: Dec 17, 2007 History of Hepatitis B Vaccine: No Consultations: Nephrology - Dr. Quezada Cardiology - Dr. Hernandez Medication Reconciliation New Medications: Sulfa/Trimethoprim (Bactrim Ds 800MG/160MG) Tab 1 TAB PO BID for 5 Days, #10 TAB Continued Medications: Allopurinol (Zyloprim) 100 Mg Tab 50 MG PO QAM Amiodarone HCl (Amiodarone HCl) 200 Mg Tab 200 MG PO Q2D Clopidogrel Bisulfate (Clopidogrel) 75 Mg Tab 75 MG PO QPM Fluticasone Propionate (Fluticasone Propionate) 50 Mcg/Act Spr 2 SPRAYS NA DAILY for 30 Days, #1 EA Guaifenesin Ext Rel (Mucinex Ext Rel) 600 Mg Tabcr 600 MG PO Q12 for 14 Days, #28 TAB OTC Guaifenesin/Codeine (Robitussin-Ac Syrup) Syrp 5 ML PO Q4 PRN for for 6 Days, #120 ML Ipratropium-Albuterol (Duoneb) 3 Ml Nebu 1 TREATMENT INH Q4H PRN for SOB/Wheezing Levothyroxine Sodium (Levothyroxine Sodium) 75 Mcg Tab 75 MCG PO QAM INCREASE TO 150 MCG ON 08/17/2017. Multiple Vitamin (Renal Multivitamin Formul) 1 Tab Tab 2 TABS PO QAM Oxycodone Ir (Roxicodone Ir) 5 Mg Tab 1-2 TAB PO Q4H PRN for Severe Pain, #12 TAB Pantoprazole (Protonix) 40 Mg Tab 40 MG PO QAM Polyethylene Glycol 3350 (Miralax) 1 Pow Pow 17 GM PO AMPM Probiotic Product (Probiotic) 1 Cap Cap 1 CAP PO DAILY Rosuvastatin Calcium (Crestor) 10 Mg Tab 10 MG PO HS, TAB Saline ([place] Nasal [place]) 0.65 % Spr 1 SPRAYS NA PRN PRN for DRYNESS for 30 Days Sennosides-Docusate Sodium (Stool Softener) 1 Tab Tab 1 TAB PO BID Sevelamer Hydroch (Renagel) 800 Mg Tab 800 MG PO TIDM, TAB Warfarin Sodium (Warfarin Sodium) 2 Mg Tab 2 MG PO QPM Discharge Exam This morning Ms. Rahman reports back pain is gone and her breathing is improved. She did not need oxygen. Review of Systems: Constitutional: No fever, No chills Respiratory: No shortness of breath Cardiovascular: No chest pain Abdomen: No pain, No nausea, No vomiting Genitourinary - Female: No dysuria Physical Exam: General Appearance: no apparent distress Eyes: normal inspection Neck: no JVD Respiratory/Chest: lungs clear, + decreased breath sounds Cardiovascular: regular rate, rhythm, + systolic murmur Abdomen / GI: normal bowel sounds, non tender, soft Extremities: + pedal edema (trace) Neurologic/Psychiatric: alert, oriented x 3 Hospital Course Ms. Rahman is an 87 year old female with a history of ESRD on HD, CAD s/p NSTEMI in March 2017, PAF on coumadin, hypertension, hyperlipidemia, DM2, moderate who presented to [facility] with back pain. Below are the medical problems addressed during her stay: Back pain with concern of ACS - ruled out. Pain likely MSK - troponin elevated at 0.05, 0.06, which is typical for her as her troponin level is chronically elevated - EKG normal - seen by Dr. Hernandez (patient account representative) - back pain non-cardiac in nature and likely MSK - back pain resolved - was only present only palpation Abnormal UA - dirty UA (urine culture is pending) - treated with Bactrim 160/800 BID x 5 days ESRD on HD - seen by Dr. Quezada - underwent hemodialysis in keeping with her schedule - Continued on Renagel 800mg tid - Creatine on discharge 2.77 s/p HD on 08/17 PAF/ H/O DVT - INR 1.6 on arrival, she was given an additional 2mg dose of warfarin - Continued on amiodarone Anemia - RANJAN given with dialysis - Hemoglobin 10.7 HTN/Hyperlipidemia/CAD - Continued on Plavix 75mg daily and Crestor 10mg daily Hypothyroidism - Continued on Levothyroxine 75 mcg GERD - Continued on Protonix 40mg daily Total Time Spent: Less than 30 minutes This includes examination of the patient, discharge planning, medication reconciliation, and communication with other providers. Discharge Instructions Please refer to the electronic Patient Visit Report (Discharge Instructions) for additional information. Follow-Up With PCP within a week Additional Copies To Cooper Hart M.D. Reviewed: Pt Seen/Exam by Me History no further back pain, Constitutional: denies: fever Respiratory: negative: short of breath Cardiovascular: denies chest pain General Appearance: no apparent distress Respiratory: lungs clear, no respiratory distress Cardiovascular: regular rate, rhythm Gastrointestinal: soft Neurologic/Psychiatric: alert, oriented x 3 Assessment/Plan Resident Physician Supervision Note: I independently interviewed and examined the patient and verified the archuleta history and physical, reviewed labs and image studies, discussed the case with the resident Dr. Kan and agree with the findings and care plan.
== END 2017-08-18 12:22 | disposition home or self-care (01) ==
LOC: C.EDB 19:17 → C.2T 22:41 → EDBEDREQ 22:49 → ENRESERV 22:58
PROVIDERS: ADMIT Hospitalist; ATTEND Family Medicine
DX: R07.9 Chest pain, unspecified (principal); R79.89 Other specified abnormal findings of blood chemistry; N18.6 End stage renal disease; Z99.2 Dependence on renal dialysis; I25.10 Atherosclerotic heart disease of native coronary artery without angina pectoris; I48.0 Paroxysmal atrial fibrillation; Z79.01 Long term (current) use of anticoagulants; I50.40 Unspecified combined systolic (congestive) and diastolic (congestive) heart failure; I35.0 Nonrheumatic aortic (valve) stenosis; I34.0 Nonrheumatic mitral (valve) insufficiency; D64.9 Anemia, unspecified; E11.22 Type 2 diabetes mellitus with diabetic chronic kidney disease; E78.5 Hyperlipidemia, unspecified; M10.9 Gout, unspecified; E03.9 Hypothyroidism, unspecified; Z79.899 Other long term (current) drug therapy; I25.2 Old myocardial infarction; Z82.5 Family history of asthma and other chronic lower respiratory diseases; Z80.3 Family history of malignant neoplasm of breast; Z83.3 Family history of diabetes mellitus; Z82.49 Family history of ischemic heart disease and other diseases of the circulatory system; Z82.3 Family history of stroke; Z84.1 Family history of disorders of kidney and ureter

== ENCOUNTER 2017-09-23 21:51 | Observation (INO) | payer OTHER ==
[~2017-09-23] VITALS: Ht 162.6 cm; Wt 67.3 kg
[~2017-09-23 21:51] MED LIST changes: +ALLO100T PO; -BENZ100C7 PO; +CRD200 PO; +MISCCAP80 PO; -NUTRCAP11 PO; +OXYC1TAB3 PO; -PRD5 PO; +SEVE1TAB PO; +WARF4TAB43 PO
[2017-09-23] MEDS ORDERED: ONDANSETRON INJ 2 MG/ML 2 ML VIAL IV STA (22:02)
[2017-09-23 22:03] VITALS: O2SAT 96
[2017-09-23 22:16] LABS: BASO % 0.4 %; BASO ABS # 0.04 K/uL (0-0.2); EOS % 0.9 %; EOS ABS # 0.09 K/uL (0-0.5); HEMATOCRIT 33.7 % (37-47); HEMOGLOBIN 10.6 g/dL (12.0-16.0); IG# 0.02 K/uL (0.00-0.02); LYMPH % 11.8 %; LYMPH ABS # 1.17 K/uL (1.2-3.4); MEAN CELL VOLUME 103.7 fL (80-100); MEAN CORPUSCULAR HEMOGLOBIN 32.6 pg (25-34); MEAN CORPUSCULAR HGB CONC 31.5 g/dl (32-36); MEAN PLATELET VOLUME 10.6 fL (7.4-10.4); MONO % 8.4 %; MONO ABS # 0.83 K/uL (0.11-0.59); NEUT % 78.3 %; NEUT ABS # 7.77 K/uL (1.4-6.5); PLATELET COUNT 201 K/uL (130-400); RED CELL DISTRIBUTION WIDTH CV 16.4 % (11.5-14.5); RED CELL DISTRIBUTION WIDTH SD 61.5 fL (36.4-46.3); WHITE BLOOD COUNT 9.92 K/uL (4.8-10.8)
[2017-09-23] MEDS ORDERED: LEVO100T PO (22:16)
[2017-09-23 22:34] LABS: INR 3.1 (0.9-1.1)
--- NOTE | 2017-09-23 22:47 | DIAGNOSTIC IMAGING REPORT ---
HEAD WITHOUT CONTRAST (CT) CLINICAL HISTORY: 87 years-old Female with EVALUATE ALTERED MENTAL STATUS/WEAKNESS. Acutely altered mental status TECHNIQUE: Multiple axial CT images of the head were obtained without contrast. A dose lowering technique was utilized adhering to the principles of ALARA. CT DOSE: 601.98 mGy.cm COMPARISON: CT head 11/12/2013. FINDINGS: No acute intracranial hemorrhage, midline shift, intracranial mass, hydrocephalus, territorial ischemia or abnormal extra-axial collection. Mild atrophy. Mild chronic microvascular ischemic changes. The calvarium is intact. The paranasal sinuses, mastoid air cells, and middle ear cavities are clear. IMPRESSION: No acute intracranial abnormality. The above report was generated using voice recognition software. It may contain grammatical, syntax or spelling errors. Electronically signed by: Rakan Grimes M.D. 09/23/2017 10:45 PM Dictated Date/Time: 09/23/2017 10:43 PM
--- NOTE | 2017-09-23 22:56 | DIAGNOSTIC IMAGING REPORT ---
CHEST ONE VIEW PORTABLE HISTORY: 87 years-old Female EVALUATE ALTERED MENTAL STATUS/WEAKNESS acutely altered mental status COMPARISON: Chest radiograph 08/16/2017 TECHNIQUE: Portable AP view of the chest FINDINGS: Cardiac silhouette is again moderately enlarged. Atherosclerosis and tortuosity of the aorta. Prior median sternotomy. No pneumothorax. The left pleural effusion again noted with patchy left basilar opacities. Unchanged pulmonary vascular congestion with interstitial thickening. Bones appear grossly intact. Fusion hardware of the bar spine. Surgical clips project over the epigastrium. IMPRESSION: 1. Stable exam with cardiomegaly, suggested mild pulmonary edema and small left pleural effusion. 2. Unchanged left basilar consolidative opacities. The above report was generated using voice recognition software. It may contain grammatical, syntax or spelling errors. Electronically signed by: Rakan Grimes M.D. 09/23/2017 10:55 PM Dictated Date/Time: 09/23/2017 10:53 PM
[2017-09-23 23:07] LABS: ALBUMIN 2.6 gm/dl (3.4-5.0); CALCIUM 9.2 mg/dl (8.5-10.1); CREATININE 5.03 mg/dl (0.60-1.20); POTASSIUM 5.6 mmol/L (3.5-5.1); TOTAL PROTEIN 6.6 gm/dl (6.4-8.2)
[2017-09-23] MEDS ORDERED: MoRPHine SULFATE 2 MG/ML CARP IV PRN (23:30)
[2017-09-23] MEDS ORDERED: ONDANSETRON INJ 2 MG/ML 2 ML VIAL IV PRN (23:30)
[2017-09-23] MEDS ORDERED: ALUMINUM/MAGNESIUM/SIMETH (MAALOX MAX) 30 ML UDC PO PRN (23:30)
[2017-09-23] MEDS ORDERED: ACETAMINOPHEN 325 MG TAB PO PRN (23:30)
[2017-09-23] MEDS ORDERED: MAGNESIUM HYDROXIDE SUSP 30 ML UDC PO PRN (23:30)
[2017-09-23] MEDS ORDERED: POLYETHYLENE (MIRALAX) 17 GM PACK PO PRN (23:30)
[2017-09-23] MEDS ORDERED: NITROGLYCERIN 0.4 MG SL PER TAB CHARGE SL PRN (23:30)
--- NOTE | 2017-09-23 23:33 | EMERGENCY ROOM VISIT NOTE ---
History Report prepared by Barbara: Eugenia Curran Under the Supervision of: Gely CrossO. First contact with patient: 21:54 Chief Complaint: SYNCOPE Stated Complaint: SYNCOPE History of Present Illness The patient is a 87 year old female who presents to the Emergency Room with complaints of a resolved syncopal episode that occurred earlier today. The patient states that she became lightheaded, dizzy, and felt like the room was spinning, but did not fall. She states that she has been short of breath all day , noting she has been having left sided chest pain that worsens with breathing. The patient notes that the right side of her ribs feel sore. She notes that he has had rhinorrhea and a cough for about 2 weeks. The patient states she is normally on 3L of oxygen. She notes that she is a dialysis patient and receives dialysis on Sunday, Sunday, and Fridays. The patient states that her last dialysis was 2 days ago. She notes that she takes Coumadin. The patient states she has had a quadruple bypass. Pt denies headache, change in vision, fevers, nausea, vomiting, diarrhea, pain with urination, and melena. Source of History: patient Onset: today Position: other (global) Quality: other (syncopal episode) Timing: resolved Associated Symptoms: + cough, + chest pain, + SOB, No fevers, No headache, No nausea, No vomiting, No melena, No diarrhea Note: Associated symptoms include: dizziness, lightheadedness Review of Systems See HPI for pertinent positives & negatives. A total of 10 systems reviewed and were otherwise negative. 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 (20) Diab Qiana Wo Compl, Type Ii Or Unspec Type, Not Uncntrld (21) Diabetes (22) DVT (deep venous thrombosis) (23) Dyspnea (24) Elevated troponin (25) 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 (26) ESRD (end stage renal disease) on dialysis (27) Hematochezia (28) History of ND (myocardial infarction) (29) History of pulmonary embolism (30) Hypertension (31) Hypertension Nos (32) Hypotension (33) Knee Joint Replacement Status (34) Leukocytosis (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 (36) Moderate aortic stenosis (37) New onset atrial fibrillation (38) NSTEMI (non-ST elevated myocardial infarction) (39) NSTEMI (non-ST elevated myocardial infarction) (40) Old Myocardial Infarct (41) Percutaneous Translum Coron Angioplasty Status (42) Peripheral vascular disease (43) Pneumonia, Organism Nos (44) Positive blood culture (45) Pre-syncope (46) Prolonged Q-T interval on ECG (47) Pulmonary embolism (48) Pure Hypercholesterolem (49) Rectal bleeding (50) Right hip pain (51) Sepsis due to infected intravenous catheter (52) Shortness of breath (53) Urin Tract Infection Nos Family History Asthma Cancer SISTER (Breast cancer) Chronic kidney disease MOTHER Diabetes mellitus FATHER Heart disease FATHER Hypertension FATHER MOTHER Kidney disease Kidney stones Stroke Social History Smoking Status: Never Smoker Alcohol Use: none Drug Use: none Marital Status: Housing Status: lives alone Occupation Status: retired Current/Historical Medications Scheduled Allopurinol (Zyloprim), 50 MG PO QAM Amiodarone HCl (Amiodarone HCl), 200 MG PO Q2D Levothyroxine Sodium (Synthroid), 100 MCG PO DAILY Multiple Vitamin (Renal Multivitamin Formul), 2 TABS PO QAM Pantoprazole (Protonix), 40 MG PO QAM Polyethylene Glycol 3350 (Miralax), 17 GM PO AMPM Probiotic Product (Probiotic), 1 CAP PO DAILY Rosuvastatin Calcium (Crestor), 10 MG PO HS Sennosides-Docusate Sodium (Stool Softener), 1 TAB PO BID Sevelamer Hydroch (Renagel), 800 MG PO TIDM Warfarin Sodium (Warfarin Sodium), 2 MG PO QPM Scheduled PRN Ipratropium-Albuterol (Duoneb), 1 TREATMENT INH Q4H PRN for SOB/Wheezing Allergies Coded Allergies: No Known Allergies (Unverified , 04/20/17) Physical Exam Vital Signs Date Time Temp Pulse Resp B/P (MAP) Pulse Ox O2 Delivery O2 Flow Rate FiO2 09/23/17 23:33 74 16 100/30 96 Nasal Cannula 3.0 09/23/17 22:15 75 09/23/17 22:14 76 16 96/44 78 91/44 09/23/17 22:03 96 Nasal Cannula 3.0 09/23/17 22:03 Nasal Cannula 3.0 96 09/23/17 22:00 36.7 76 18 102/46 94 Room Air Physical Exam GENERAL: Sitting up in bed, alert, chronically ill-appearing, malnourished, on nasal cannula EYE EXAM: normal conjunctiva. OROPHARYNX: no exudate, no erythema, lips, buccal mucosa, and tongue normal and mucous membranes are moist NECK: Mild JVD. Supple, no nuchal rigidity, no adenopathy, non-tender LUNGS: Sounds decreased at bilateral bases. Normal chest wall mechanics HEART: Systolic murmur, S1 normal and S2 normal CHEST: Old midline sternum incision ABDOMEN: abdomen soft, non-tender, normo-active bowel sounds, no masses, no rebound or guarding. BACK: Back is symmetrical on inspection and there is no deformity, no midline tenderness, no CVA tenderness. SKIN: no rashes and no bruising UPPER EXTREMITIES: Fistula positive thrill/bruit LOWER EXTREMITIES: Pitting edema bilaterally. Calves equal bilaterally. NEURO EXAM: Normal sensorium, cranial nerves II-XII grossly intact, normal speech, no gross weakness of arms, no gross weakness of legs. Medical Decision & Procedures ER Provider Diagnostic Interpretation: Radiology results as stated below per my review and the radiologist's interpretation: CHEST ONE VIEW PORTABLE HISTORY: 87 years-old Female EVALUATE ALTERED MENTAL STATUS/WEAKNESS acutely altered mental status COMPARISON: Chest radiograph 08/16/2017 TECHNIQUE: Portable AP view of the chest FINDINGS: Cardiac silhouette is again moderately enlarged. Atherosclerosis and tortuosity of the aorta. Prior median sternotomy. No pneumothorax. The left pleural effusion again noted with patchy left basilar opacities. Unchanged pulmonary vascular congestion with interstitial thickening. Bones appear grossly intact. Fusion hardware of the bar spine. Surgical clips project over the epigastrium. IMPRESSION: 1. Stable exam with cardiomegaly, suggested mild pulmonary edema and small left pleural effusion. 2. Unchanged left basilar consolidative opacities. The above report was generated using voice recognition software. It may contain grammatical, syntax or spelling errors. Electronically signed by: Rakan Grimes M.D. 09/23/2017 10:55 PM Dictated Date/Time: 09/23/2017 10:53 PM HEAD WITHOUT CONTRAST (CT) CLINICAL HISTORY: 87 years-old Female with EVALUATE ALTERED MENTAL STATUS/WEAKNESS. Acutely altered mental status TECHNIQUE: Multiple axial CT images of the head were obtained without contrast. A dose lowering technique was utilized adhering to the principles of ALARA. CT DOSE: 601.98 mGy.cm COMPARISON: CT head 11/12/2013. FINDINGS: No acute intracranial hemorrhage, midline shift, intracranial mass, hydrocephalus, territorial ischemia or abnormal extra-axial collection. Mild atrophy. Mild chronic microvascular ischemic changes. The calvarium is intact. The paranasal sinuses, mastoid air cells, and middle ear cavities are clear. IMPRESSION: No acute intracranial abnormality. The above report was generated using voice recognition software. It may contain grammatical, syntax or spelling errors. Electronically signed by: Rakan Grimes M.D. 09/23/2017 10:45 PM Dictated Date/Time: 09/23/2017 10:43 PM Laboratory Results 09/23/17 22:08 Red Blood Count 3.25, Mean Corpuscular Volume 103.7, Mean Corpuscular Hemoglobin 32.6, Mean Corpuscular Hemoglobin Concent 31.5, Mean Platelet Volume 10.6, Neutrophils (%) (Auto) 78.3, Lymphocytes (%) (Auto) 11.8, Monocytes (%) ( Auto) 8.4, Eosinophils (%) (Auto) 0.9, Basophils (%) (Auto) 0.4, Neutrophils # ( Auto) 7.77, Lymphocytes # (Auto) 1.17, Monocytes # (Auto) 0.83, Eosinophils # ( Auto) 0.09, Basophils # (Auto) 0.04 09/23/17 22:08 Test 09/23/17 22:08 White Blood Count 9.92 K/uL (4.8-10.8) Red Blood Count 3.25 M/uL (4.2-5.4) Hemoglobin 10.6 g/dL (12.0-16.0) Hematocrit 33.7 % (37-47) Mean Corpuscular Volume 103.7 fL (80-100) Mean Corpuscular Hemoglobin 32.6 pg (25-34) Mean Corpuscular Hemoglobin Concent 31.5 g/dl (32-36) Platelet Count 201 K/uL (130-400) Mean Platelet Volume 10.6 fL (7.4-10.4) Neutrophils (%) (Auto) 78.3 % Lymphocytes (%) (Auto) 11.8 % Monocytes (%) (Auto) 8.4 % Eosinophils (%) (Auto) 0.9 % Basophils (%) (Auto) 0.4 % Neutrophils # (Auto) 7.77 K/uL (1.4-6.5) Lymphocytes # (Auto) 1.17 K/uL (1.2-3.4) Monocytes # (Auto) 0.83 K/uL (0.11-0.59) Eosinophils # (Auto) 0.09 K/uL (0-0.5) Basophils # (Auto) 0.04 K/uL (0-0.2) RDW Standard Deviation 61.5 fL (36.4-46.3) RDW Coefficient of Variation 16.4 % (11.5-14.5) Immature Granulocyte % (Auto) 0.2 % Immature Granulocyte # (Auto) 0.02 K/uL (0.00-0.02) Prothrombin Time 32.1 SECONDS (9.0-12.0) Prothromb Time International Ratio 3.1 (0.9-1.1) Activated Partial Thromboplast Time 35.0 SECONDS (21.0-31.0) Partial Thromboplastin Ratio 1.3 Anion Gap 10.0 mmol/L (3-11) Est Creatinine Clear Calc Drug Dose 7.7 ml/min Estimated GFR () 8.4 Estimated GFR (Non- 7.2 BUN/Creatinine Ratio 8.9 (10-20) Calcium Level 9.2 mg/dl (8.5-10.1) Magnesium Level 2.9 mg/dl (1.8-2.4) Total Bilirubin 1.1 mg/dl (0.2-1) Direct Bilirubin 0.2 mg/dl (0-0.2) Aspartate Amino Transf (AST/SGOT) 12 U/L (15-37) Alanine Aminotransferase (ALT/SGPT) 12 U/L (12-78) Alkaline Phosphatase 101 U/L (45-117) Troponin I 0.357 ng/ml (0-0.045) Total Protein 6.6 gm/dl (6.4-8.2) Albumin 2.6 gm/dl (3.4-5.0) Thyroid Stimulating Hormone (TSH) 24.200 uIu/ml (0.300-4.500) Laboratory results per my review. ECG Indication: syncope Rate (beats per minute): 75 Rhythm: sinus rhythm Findings: ST depression (Lateral and inferior), other (Interventricular conduction delayed ) Comparison ECG Date: compared to 08/16/17: ST waves in inferior are new & lateral worsened, elevation in RVR is old Change: Patient's Electrocardiogram interpreted by me ED Course ED COURSE: Vital signs were reviewed and showed normal vitals. The patients medical record was reviewed The above diagnostic studies were performed and reviewed. ED treatments and interventions as stated above. 2156: The patient was evaluated in room C7. A complete history and physical examination was performed. 2201: Ordered Zofran Inj 4mg IV. 0: I reviewed the patient's case [place] [facility] [place] She will evaluate the patient for further management. Medical Decision Differential diagnosis includes etiologies such as benign positional vertigo, dehydration, hypovolemia, anemia, tumor, infection, hypoglycemia, electrolyte abnormalities, cardiac sources, intracerebral event, toxicologic, neurologic, as well as others were entertained. Patient is an 87 year old female with a past medical history of CAD with a previous CABG, PEs on blood thinners and aortic stenosis for chest pain and shortness of breath. She was with family and she almost passed out. EKG was obtained and was unremarkable. Chest x-ray was unchanged from previous. CBC was unremarkable. Potassium slightly elevated at 5.6. Creatinine elevated as well as expected with dialysis. Troponin was elevated higher than her typical troponin elevation at 0.3. I do favor this is partially related to chronic kidney disease. PE was not explored as her INR is therapeutic. With her past medical history of CAD, and aortic stenosis with a near syncopal event on dialysis and shortness of breath and felt was reasonable to observe her overnight. I did discuss case with patient's family. They note the patient is too weak to even ambulate at this time. Discussed case with internal medicine patient will be evaluated for further workup. Medication Reconcilliation Current Medication List: was personally reviewed by me Consults Time Called: [phone] Consulting Physician: FRANKO Roy. Returned Call: [phone] I reviewed the patient's case with FRANKO Roy. She will evaluate the patient for further management. Impression Primary Impression: Dyspnea Additional Impressions: Chest pain Hyperkalemia Aortic stenosis Elevated troponin Scribe Attestation The scribe's documentation has been prepared under my direction and personally reviewed by me in its entirety. I confirm that the note above accurately reflects all work, treatment, procedures, and medical decision making performed by me. Departure Information Dispostion Being Evaluated By Hospitalist Referrals Cooper Hart M.D. (PCP) Forms HOME CARE DOCUMENTATION FORM, IMPORTANT VISIT INFORMATION Patient Instructions My [facility] Problem Qualifiers Primary Impression: Dyspnea Dyspnea type: unspecified Qualified Codes: R06.00 - Dyspnea, unspecified Additional Impressions: Chest pain Chest pain type: unspecified Qualified Codes: R07.9 - Chest pain, unspecified
[2017-09-23] MEDS ORDERED: ALBUT/IPRATROP 3MG/0.5MG NEB 3 ML VIAL INH PRN (23:45)
[2017-09-23] MEDS ORDERED: IV FLUIDS COMPLETED PRN (23:45)
--- NOTE | 2017-09-23 23:56 | History and Physical ---
History & Physical Date & Time of Service: Sep 23, 2017 at 23:47 Chief Complaint: Syncope Primary Care Physician: Cooper Hart M.D. History of Present Illness Source: patient, family, clinic records, hospital records Ms. Rahman is an 87 y/o female with Hx ESRD on HD (MWF), h/o DVT, CAD, PAF on coumadin, chronic systolic and diastolic CHF, Moderate Aortic Stenosis, Mitral Regurg, Anemia of Chronic Disease with H/O GI Bleed (September 2016), DMII, HTN, HL, gout and hypothyroidism, who presents to us with an episode of presyncope after the patient had a bowel movement. Patient's daughter states she got up from the toilet and suddenly felt very weak and shaky. She did not c/o chest pain or SOB with this episode. She did not have syncope. The daughter also noted blood in the stool which was slightly more than normal ( patient has hemorrhoids) but the daughter notes it had been worse in the past. Patient does have a history of elevated troponin however slightly more elevated than previously. She is also due for hemodialysis tomorrow. She does note " rib pain " for a few days on the left side of her thorax but does not recall an injury. Past Medical/Surgical History NSTEMI ESRD on dialysis MWF DVT PAF CAD Chronic systolic and diastolic CHF Moderate HTN HLD DMII H/O GI bleed Family History Asthma Cancer SISTER (Breast cancer) Chronic kidney disease MOTHER Diabetes mellitus FATHER Heart disease FATHER Hypertension FATHER MOTHER Kidney disease Kidney stones Stroke Social History Smoking Status: Never Smoker Smokeless Tobacco Use: No Alcohol Use: none Drug Use: none Marital Status: Housing status: lives with family Occupational Status: retired Immunizations History of Influenza Vaccine: Yes Influenza Vaccine Date: Apr 17, 2012 History of Tetanus Vaccine?: Yes Tetanus Immunization Date: Dec 16, 2006 History of Pneumococcal: Yes Pneumococcal Date: Dec 17, 2007 History of Hepatitis B Vaccine: No Multi-Drug Resistant Organisms History of MDRO: No Allergies Coded Allergies: No Known Allergies (Unverified , 04/20/17) Home Medications Scheduled Allopurinol (Zyloprim), 50 MG PO QAM Amiodarone HCl (Amiodarone HCl), 200 MG PO Q2D Levothyroxine Sodium (Synthroid), 100 MCG PO DAILY Multiple Vitamin (Renal Multivitamin Formul), 2 TABS PO QAM Pantoprazole (Protonix), 40 MG PO QAM Polyethylene Glycol 3350 (Miralax), 17 GM PO AMPM Probiotic Product (Probiotic), 1 CAP PO DAILY Rosuvastatin Calcium (Crestor), 10 MG PO HS Sennosides-Docusate Sodium (Stool Softener), 1 TAB PO BID Sevelamer Hydroch (Renagel), 800 MG PO TIDM Warfarin Sodium (Warfarin Sodium), 2 MG PO QPM Scheduled PRN Ipratropium-Albuterol (Duoneb), 1 TREATMENT INH Q4H PRN for SOB/Wheezing Review of Systems Constitutional: No fever, No chills, No sweats Eyes: No worsening of vision ENT: No hearing loss Respiratory: No cough, No sputum, No wheezing, No shortness of breath, No dyspnea on exertion, No dyspnea at rest Cardiovascular: + problem reported (left rib pain ), No chest pain Abdomen: + GI bleeding, No pain, No nausea, No vomiting, No diarrhea, No constipation Musculoskeletal: No joint pain, No muscle pain, No swelling, No calf pain Genitourinary - Female: + problem reported (anuria) Neurologic: + weakness, + balance problems, No numbness/tingling Psychiatric: No depression symptoms Endocrine: + fatigue Hematologic / Lymphatic: + abnormal bleeding/bruising Integumentary: No rash Allergic / Immunologic: No environmental allergies Physical Exam Vital Signs Date Time Temp Pulse Resp B/P (MAP) Pulse Ox O2 Delivery O2 Flow Rate FiO2 09/23/17 23:33 74 16 100/30 96 Nasal Cannula 3.0 09/23/17 22:15 75 09/23/17 22:14 76 16 96/44 78 91/44 09/23/17 22:03 96 Nasal Cannula 3.0 09/23/17 22:03 Nasal Cannula 3.0 96 09/23/17 22:00 36.7 76 18 102/46 94 Room Air General Appearance: no apparent distress Head: normocephalic, atraumatic Eyes: normal inspection ENT: normal ENT inspection Neck: supple Respiratory/Chest: no respiratory distress, no accessory muscle use, + decreased breath sounds (bilat bases), + pertinent finding (++ pain with squeezing of chest in the left mid axillary line ) Cardiovascular: regular rate, rhythm, normal peripheral pulses, + pertinent finding (blowing systolic 3/6 murmur appreciated ) Abdomen/GI: normal bowel sounds, non tender, soft Back: normal inspection, no CVA tenderness, normal range of motion Extremities/Musculoskelatal: normal inspection, no calf tenderness, + pedal edema (+ 1 bilat pedal edema), + pertinent finding (bruit appreciated over fistula ) Neurologic/Psych: alert, normal mood/affect, oriented x 3 Skin: normal color, warm/dry, no rash, + pertinent finding (ecchymosis on bilat UE) Lymphatic: no adenopathy Diagnostics Laboratory Results Results Past 24 Hours Test 09/23/17 22:08 Range/Units White Blood Count 9.92 4.8-10.8 K/uL Red Blood Count 3.25 4.2-5.4 M/uL Hemoglobin 10.6 12.0-16.0 g/dL Hematocrit 33.7 37-47 % Mean Corpuscular Volume 103.7 80-100 fL Mean Corpuscular Hemoglobin 32.6 25-34 pg Mean Corpuscular Hemoglobin Concent 31.5 32-36 g/dl Platelet Count 201 130-400 K/uL Mean Platelet Volume 10.6 7.4-10.4 fL Neutrophils (%) (Auto) 78.3 % Lymphocytes (%) (Auto) 11.8 % Monocytes (%) (Auto) 8.4 % Eosinophils (%) (Auto) 0.9 % Basophils (%) (Auto) 0.4 % Neutrophils # (Auto) 7.77 1.4-6.5 K/uL Lymphocytes # (Auto) 1.17 1.2-3.4 K/uL Monocytes # (Auto) 0.83 0.11-0.59 K/uL Eosinophils # (Auto) 0.09 0-0.5 K/uL Basophils # (Auto) 0.04 0-0.2 K/uL RDW Standard Deviation 61.5 36.4-46.3 fL RDW Coefficient of Variation 16.4 11.5-14.5 % Immature Granulocyte % (Auto) 0.2 % Immature Granulocyte # (Auto) 0.02 0.00-0.02 K/uL Prothrombin Time 32.1 9.0-12.0 SECONDS Prothromb Time International Ratio 3.1 0.9-1.1 Activated Partial Thromboplast Time 35.0 21.0-31.0 SECONDS Partial Thromboplastin Ratio 1.3 Sodium Level 133 136-145 mmol/L Potassium Level 5.6 3.5-5.1 mmol/L Chloride Level 93 98-107 mmol/L Carbon Dioxide Level 29 21-32 mmol/L Anion Gap 10.0 3-11 mmol/L Blood Urea Nitrogen 45 7-18 mg/dl Creatinine 5.03 0.60-1.20 mg/dl Est Creatinine Clear Calc Drug Dose 7.7 ml/min Estimated GFR () 8.4 Estimated GFR (Non- 7.2 BUN/Creatinine Ratio 8.9 10-20 Random Glucose 256 70-99 mg/dl Calcium Level 9.2 8.5-10.1 mg/dl Magnesium Level 2.9 1.8-2.4 mg/dl Total Bilirubin 1.1 0.2-1 mg/dl Direct Bilirubin 0.2 0-0.2 mg/dl Aspartate Amino Transf (AST/SGOT) 12 15-37 U/L Alanine Aminotransferase (ALT/SGPT) 12 12-78 U/L Alkaline Phosphatase 101 45-117 U/L Troponin I 0.357 0-0.045 ng/ml Total Protein 6.6 6.4-8.2 gm/dl Albumin 2.6 3.4-5.0 gm/dl Thyroid Stimulating Hormone (TSH) 24.200 0.300-4.500 uIu/ml Diagnostic Radiology CHEST ONE VIEW PORTABLE HISTORY: 87 years-old Female EVALUATE ALTERED MENTAL STATUS/WEAKNESS acutely altered mental status COMPARISON: Chest radiograph 08/16/2017 TECHNIQUE: Portable AP view of the chest FINDINGS: Cardiac silhouette is again moderately enlarged. Atherosclerosis and tortuosity of the aorta. Prior median sternotomy. No pneumothorax. The left pleural effusion again noted with patchy left basilar opacities. Unchanged pulmonary vascular congestion with interstitial thickening. Bones appear grossly intact. Fusion hardware of the bar spine. Surgical clips project over the epigastrium. IMPRESSION: 1. Stable exam with cardiomegaly, suggested mild pulmonary edema and small left pleural effusion. 2. Unchanged left basilar consolidative opacities. HEAD WITHOUT CONTRAST (CT) CLINICAL HISTORY: 87 years-old Female with EVALUATE ALTERED MENTAL STATUS/WEAKNESS. Acutely altered mental status TECHNIQUE: Multiple axial CT images of the head were obtained without contrast. A dose lowering technique was utilized adhering to the principles of ALARA. CT DOSE: 601.98 mGy.cm COMPARISON: CT head 11/12/2013. FINDINGS: No acute intracranial hemorrhage, midline shift, intracranial mass, hydrocephalus, territorial ischemia or abnormal extra-axial collection. Mild atrophy. Mild chronic microvascular ischemic changes. The calvarium is intact. The paranasal sinuses, mastoid air cells, and middle ear cavities are clear. IMPRESSION: No acute intracranial abnormality. EKG No significant changes from Aug 2017, no ectopy, no significant ischemic changes noted HR 85 Impression Assessment and Plan This is an 87 yo f with a h/o ESRD on dialysis, NSTEMI, suffering from acute onset weakness/ presyncopal episode concerning for cardiac source vs vasovagal vs anemia Presyncope secondary to vasovagal vs anemia vs cardiac source vs need for dialysis - tele admission to obs - repeat troponin - defer Echo to discretion of day team - most recent echo 07/2017 * 1. Normal left ventricular size with low-normal systolic function. Estimated EF 50-55%. Hypokinesis of the mid inferolateral, base to mid anteroseptum, mid to distal inferior wall segments. Akinesis of the basal septum and basal inferior wall. Septal motion consistent with bundle-branch block. Mild concentric left ventricular hypertrophy. Type 2 diastolic dysfunction. * 2. Grossly normal right ventricular size with mildly reduced systolic function. * 3. The left atrium is severely dilated. * 4. Moderate aortic stenosis. * 5. Restricted posterior mitral leaflet with eccentric, moderate regurgitation. * 6. Pleural effusion. * 7. Mildly elevated right ventricular systolic pressure; estimated RVSP 46 mmHg. * 8. Compared to prior study on 03/14/2017, LV systolic function has improved. - consult CVS - repeat Hgb - Doppler carotids - Rib xray series - ekg in am H/O GI bleeding with recent blood in stool - INR is currently 3.4, Gi bleed is apparently a little more than BL from her hemorrhoids however according to family not worrisome - repeat HH and if stable will defer reversal of INR - hold 2 mg of Coumadin and repeat inr in am - continue Protonix 40 mg daily ESRD on Dialysis MWF, K is 5.6 - hyperkalemia - Consult nephro - repeat EKG and potassium in am, currently no significant findings on EKG for hyperkalemia - monitor on Tele - due for dialysis tomorrow - continue Sevelamer 800 mg - repeat levels in am Hypothyroidism TSH- 24 - free T4 in am - cont Levothyroxine 100 mcg ( this [place] [facility] [place]F - continue Amiodarone 200 mg q 2 days CAD/ h/o NSTEMI - continue crestor 10 mg daily DMII-diet controlled - insulin ISS- will hold carb coverage for now - BSG AC/HS Gout - continue Allopurinol daily DVT Prophylaxis warfarin DNR- confirmed with patient and family Resident Physician Supervision Note: I was present with Dr. Ellis during the history and exam. I discussed the case with the resident and agree with the findings and plan as documented in the note. Any exceptions or clarifications are listed here: 87 y/o F Hx ESRD, h/o DVT, CAD, PAF on Coumadin, chronic combined CHF, moderate , mitral regurge, chronic anemia Presents following a near syncopal episode where she was plae and tremulous getting up of the toilet - did not lose consciousness. Initial labs reveal a troponin elevation which is chronic although currently above baseline. OE AAO x 2 S1,2 (+) systolic murmur Poor effort - reduced air at bases No CCE P: Will assign to telemetry overnight Monitor for arrhythmias and check orthostatic BP Trend enzymes Will consult nephrology as she is due for dialysis AM Documented By: Maikol Kim Level of Care Telemetry Resuscitation Status DO NOT RESUSCITATE VTE Prophylaxis VTE Risk Assessment Done? Y/N: Yes Risk Level: Moderate Given or contraindicated: Warfarin (Coumadin), SCD's Social Service Consult Receiving Home Health Note Total Time: Critical Care 30 - 74 minutes Additional Copies To Cooper Hart M.D. Resident Tracking Resident Involvement: Resident Care Provided Care Provided: Adult Hospital Medicine
[2017-09-24] MEDS ORDERED: INSULIN ASPART 100 UNITS/ML 3 ML PEN SC SCH ×2 (00:45→07:00)
[2017-09-24] MEDS ORDERED: GLUCOSE 10 TABS/TUBE PO PRN (00:45)
[2017-09-24] MEDS ORDERED: GLUCAGON FOR INJ 1 MG VIAL SQ PRN (00:45)
[2017-09-24] MEDS ORDERED: GLUCOSE 40% GEL 15 GM TUBE PO PRN (00:45)
[2017-09-24] MEDS ORDERED: DEXTROSE 50% 50 ML SYR IV PRN (00:45)
[2017-09-24 01:09] VITALS: BP 90/52; PULSE 77; TEMP 36.5; O2SAT 98; Ht 162.6 cm; Wt 67.3 kg
[2017-09-24] MEDS ORDERED: IV FLUIDS COMPLETED PRN (03:00)
[2017-09-24] MEDS ORDERED: AMIODARONE IV BOLUS / DRIP IV STA ×2 (04:15)
[2017-09-24] MEDS ORDERED: AMIODARONE 360MG / 200ML D5W ONE (04:16)
[2017-09-24] MEDS ORDERED: AMIODARONE 150MG / 100ML D5W ONE (04:16)
[2017-09-24] MEDS ORDERED: SODIUM POLYST. SULF SUSP 15G/60ML PO STA (04:17)
[2017-09-24] MEDS ORDERED: MoRPHine SULFATE 2 MG/ML CARP IV STA (04:24)
[2017-09-24] MEDS ORDERED: DEXTROSE 50% 50 ML SYR IV ONE (04:30)
[2017-09-24 04:34] LABS: BASO % 0.5 %; BASO ABS # 0.05 K/uL (0-0.2); EOS % 0.9 %; EOS ABS # 0.09 K/uL (0-0.5); HEMATOCRIT 34.9 % (37-47); IG# 0.03 K/uL (0.00-0.02); LYMPH % 23.9 %; MEAN CELL VOLUME 103.3 fL (80-100); MEAN CORPUSCULAR HEMOGLOBIN 32.5 pg (25-34); MEAN CORPUSCULAR HGB CONC 31.5 g/dl (32-36); MEAN PLATELET VOLUME 10.7 fL (7.4-10.4); MONO % 11.8 %; MONO ABS # 1.24 K/uL (0.11-0.59); NEUT % 62.6 %; NEUT ABS # 6.57 K/uL (1.4-6.5); PLATELET COUNT 214 K/uL (130-400); RED CELL DISTRIBUTION WIDTH CV 16.4 % (11.5-14.5); RED CELL DISTRIBUTION WIDTH SD 61.2 fL (36.4-46.3); WHITE BLOOD COUNT 10.48 K/uL (4.8-10.8)
--- NOTE | 2017-09-24 04:37 | Death Summary ---
Summary of Admission Date Sep 23, 2017 at 23:40 Date & Time of Sep 24, 2017. 0435 Cause of V. Tach Secondary Diagnoses Secondary to CAD as a result of ESRD Hospital Course Patient was admitted to the hospital for the evaluation of a presyncopal episode. She was admitted to tele and monitored. After going to the bathroom the patient had a similar episode and was found to have non sustained V tach. Amiodarone bolus ordered as well as Kayexalate and insulin aspart 10 units with D50. Prior to administration of the medication the patient went into V fibb. Patient passed at 0435. Family was informed. Copy To Cooper Hart M.D.
--- NOTE | 2017-09-24 04:38 | Death Pronouncement Note ---
Pronouncement Note Date & Time of Sep 24, 2017. 0435 Pronouncement At time of pronouncement the patients pupils were fixed and dilated, there was no spontaneous respiratory effort, no palpable pulse, no audible heart tones, and no response to pain or voice. Pronouncement completed by Dr Manisha Kim.
[2017-09-24] MEDS ORDERED: AMIODARONE / D5W 200 ML IV SCH ×2 (04:45→10:45)
[2017-09-24 04:46] LABS: INR 3.1 (0.9-1.1); PTT PATIENT 40.8 SECONDS (21.0-31.0)
[2017-09-24 05:03] LABS: CALCIUM 9.4 mg/dl (8.5-10.1); CREATININE 5.41 mg/dl (0.60-1.20); POTASSIUM 5.6 mmol/L (3.5-5.1)
[2017-09-24] MEDS ORDERED: LEVOTHYROXINE 100 MCG TAB PO SCH (06:00)
[2017-09-24] MEDS ORDERED: SEVELAMER HYDROCH 800 MG TAB PO SCH (07:30)
[2017-09-24] MEDS ORDERED: PANTOprazole SOD 40 MG TAB PO SCH (09:00)
[2017-09-24] MEDS ORDERED: ALLOPURINOL 100 MG TAB PO SCH (09:00)
[2017-09-24] MEDS ORDERED: POLYETHYLENE (MIRALAX) 17 GM PACK PO SCH (09:00)
[2017-09-24] MEDS ORDERED: MULTIVITAMIN TAB PO SCH (09:00)
[2017-09-24] MEDS ORDERED: AMIODARONE 200 MG TAB PO SCH (09:00)
[2017-09-24] MEDS ORDERED: NON-FORMULARY MEDICATION (Probiotic Product (Probiotic) 1 CAP) PO SCH (09:00)
[2017-09-24] MEDS ORDERED: DOCUSATE SODIUM/SENNA 50/8.6MG TAB PO SCH (09:00)
[2017-09-24] MEDS ORDERED: ROSUVASTATIN CALCIUM 10 MG TAB PO SCH (21:00)
[2017-09-25] MEDS ORDERED: AMIODARONE / D5W 100 ML IV SCH (04:30)
== END 2017-09-24 07:15 | disposition expired ==
LOC: EDBD 21:51 → C.EDC 21:53 → ENRESERV 23:40 → C.2T 23:40 → EDBEDREQ 09-24 00:03
PROVIDERS: ADMIT Student in an Organized Health Care Education/Training Program; ATTEND Internal Medicine
DX: I47.2 Ventricular tachycardia (principal); R06.00 Dyspnea, unspecified; R07.9 Chest pain, unspecified; N18.6 End stage renal disease; I50.42 Chronic combined systolic (congestive) and diastolic (congestive) heart failure; I25.10 Atherosclerotic heart disease of native coronary artery without angina pectoris; I35.0 Nonrheumatic aortic (valve) stenosis; E11.22 Type 2 diabetes mellitus with diabetic chronic kidney disease; E78.00 Pure hypercholesterolemia, unspecified; D63.1 Anemia in chronic kidney disease; I48.91 Unspecified atrial fibrillation; I34.0 Nonrheumatic mitral (valve) insufficiency; M10.9 Gout, unspecified; I50.9 Heart failure, unspecified; I13.2 Hypertensive heart and chronic kidney disease with heart failure and with stage 5 chronic kidney disease, or end stage renal disease; E78.5 Hyperlipidemia, unspecified; Z95.1 Presence of aortocoronary bypass graft; Z86.711 Personal history of pulmonary embolism; Z99.2 Dependence on renal dialysis; I25.2 Old myocardial infarction; Z79.01 Long term (current) use of anticoagulants; Z79.899 Other long term (current) drug therapy